=== PATIENT | male | born 1940 | race Caucasian/White ===

== ENCOUNTER 2019-06-03 17:43 | Outpatient (RCR) | payer MEDICARE, SELFPAY ==
--- NOTE | 2019-07-14 14:41 | PCPTNOTE ---
patient called and canecelled appt today. RIKA
--- NOTE | 2019-08-15 11:21 | PTOPEVAL ---
Thank you for referring this patient to [facility]. Please review, sign, date and return this plan of care LEVI. I agree with and certify that the following plan of care is medically necessary. 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 orellana reports he Query Text:As Reported By Patient/ feels better this date. he Family reports he is now free of his L ankle boot/brace. he reports he is required to wear a L ankle compression sleeve/tri- lock brace. he reports he is still wishing to get back to walking further and walking with a cane. Pain Assessment Timing of Pain Assessment Timing of Pain Assessment Assessment Self Report Self Report Pain Level 0 Pain Score Pain Score 0: Self Report Additional Pain Score Comments no pain in the L ankle this date. Lower Extremity Range of Motion General Lower Extremity Range of Motion Reason Not Measured WFL/Left,WFL/Right Lower Extremity Muscle Strength Testing Knee Strength Left Knee Flexion Strength 4+ Good + Knee Extension Strength 4+ Good + Right Knee Flexion Strength 5 Normal Knee Extension Strength 5 Normal Ankle Strength Left Ankle Dorsiflexion Strength 4 Good Ankle Plantarflexion Strength 4- Good - Right Ankle Dorsiflexion Strength 5 Normal Ankle Plantarflexion Strength 4 Good Balance Assessment Tinetti Balance Assessment Sitting Balance Steady, safe Ability to Arise Able, uses arms to help Attempts to Arise Arises on 1st attempt Immediate Standing Balance Steady with support Standing Balance
== END 2019-09-05 23:59 | disposition home or self-care (01) ==
LOC: CHSPT 17:43
PROVIDERS: Visit Provider Family Medicine
DX: R29.898 Other symptoms and signs involving the musculoskeletal system (principal)
CPT/HCPCS: 97016; 97110; 97530

== ENCOUNTER 2019-10-17 08:03 | Outpatient (CLI) | payer MEDICARE, SELFPAY ==
--- NOTE | ~2019-10-17 | XR_ITS ---
EXAMINATION: XR ankle LT min 3V DATE: 10/17/2019 08:30 INDICATION: Aftercare post left ankle internal fixation. TECHNIQUE: Weight bearing anteroposterior, oblique, and lateral views of the left ankle were obtained . COMPARISON: 08/08/2019 FINDINGS: Retrograde intramedullary calista fixation at the lateral malleolar fracture with 2 distal interlocking s crews as well as with buttons for a pair of TightRope type syndesmotic fixation wires extending trans versely across the intramedullary calista from the lateral to the medial malleolus. There is persistent m ild valgus angulation at the tibiotalar joint. The degree of widening at the medial clear space has h owever decreased with distance between the articular cortices decreasing from 8mm to 6 mm. Increase i n callus formation along the posterior margin of the fracture and/or heterotopic ossification along t he posterior distal tibiofibular ligament. No other fractures identified. Heterotopic ossification ne ar the tip of the medial malleolus likely sequela of associated deltoid ligament injury. Moderate-siz ed Achilles and plantar calcaneal spurs. Mild pes planus with flattening of the longitudinal arch. Mi ld nonuniform joint space narrowing at the posterior and lateral aspects of the tibiotalar joint. Dif fuse soft tissue swelling about the lower leg and ankle. Scattered dystrophic calcifications in the s ubcutaneous tissues at the lower leg. IMPRESSION: 1. Likely healing internally fixed distal left fibular fracture with screw and distal tibiofibular sy ndesmotic fixation. Persistent mild valgus evaluation of the tibiotalar joint but with decrease in mi ld widening of the medial clear space. 2. Pes planus. Reviewed, dictated and finalized at location A. IMPRESSION: 1. Likely healing internally fixed distal left fibular fracture with screw and distal tibiofibular syndesmotic fixation. Persistent mild valgus evaluation of the tibiotalar joint but with decrease in mild widening of the medial clear spa ce. 2. Pes planus.
== END 2019-10-17 08:04 | disposition home or self-care (01) ==
LOC: CHSIMG 08:05
PROVIDERS: PCP Family Medicine; Visit Provider Orthopaedic Surgery
DX: Z47.89 Encounter for other orthopedic aftercare (principal)
CPT/HCPCS: 73610

== ENCOUNTER 2019-12-07 10:30 | Outpatient (CLI) | payer MEDICARE, SELFPAY ==
--- NOTE | ~2019-12-07 | XR_ITS ---
XR chest 2V 12/07/2019 10:49 Indication: Cough Procedure: 2 view chest Comparison: Comparison to multiple prior studies sequentially, with oldest reviewed study dated 02/16. Findings: Bibasilar atelectasis. Heart size upper normal. No focal pneumonia, edema, effusion or pneu mothorax. No acute osseous abnormality. Impression: 1: Bibasilar atelectasis. Reviewed, dictated and finalized at location A. Impression: 1: Bibasilar atelectasis.
== END 2019-12-07 10:31 | disposition home or self-care (01) ==
PROVIDERS: PCP Family Medicine; Visit Provider Family Medicine
DX: R05 Cough (principal); R07.9 Chest pain, unspecified; J98.11 Atelectasis
CPT/HCPCS: 71046

== ENCOUNTER 2020-06-12 12:08 | Outpatient (NON) | payer MEDICARE, SELFPAY ==
[2020-06-13 00:30] LABS: SARS-CoV-2 RNA PCR Positive
== END 2020-06-12 12:09 ==
PROVIDERS: PCP Family Medicine; Visit Provider Family Medicine
DX: U07.1 COVID-19 (principal)
CPT/HCPCS: 87635; C9803; U0003

== ENCOUNTER 2020-06-14 09:20 | Inpatient (IN) | payer MEDICARE, SELFPAY ==
[2020-06-14] VITALS (10 sets, daily range): BP systolic 100–133; BP diastolic 65–92; PULSE 71–148; RESP 18–26; TEMP 37.7; O2SAT 94–98; BMI 43.7
--- NOTE | ~2020-06-14 | XR_ITS ---
EXAMINATION: XR chest 1V portable DATE: 06/14/2020 10:40 INDICATION: Shortness of breath. COVID-19 positive. TECHNIQUE: A single frontal view of the chest was obtained on 3 radiographs. COMPARISON: Chest 2 views 12/07/2019, chest CT 06/14/2018 FINDINGS: Sensitivity is decreased by obesity. There are airspace opacities in the mid and lower lung zones. No pleural effusion or pneumothorax. The heart size is normal. Mediastinal lipomatosis is not ed. There is a prominent left paracardial fat pad. There are old healed left rib fractures. IMPRESSION: 1. Airspace opacities in the mid and lower lung zones, consistent with pneumonia. Reviewed, dictated and finalized at location B. RY DRILLER IMPRESSION: 1. Airspace opacities in the mid and lower lung zones, consistent with pneumoni a.
--- NOTE | 2020-06-14 09:39 | PC.NURSE ---
EKG at 09. [facility]
--- NOTE | 2020-06-14 09:40 | ECG_ITS ---
Measurements Intervals [place] Rate: 139 P: [place]: 0 QRS: 5 QRSD: 95 T: 61 QT: 296 QTc: 451 Interpretive Statements ATRIAL FIBRILLATION WITH RAPID VENTRICULAR RESPONSE ABNORMAL ECG Electronically Signed On 06-14-2020 14:40:35 [employer] by Dani Cortez D.O.
--- NOTE | 2020-06-14 10:00 | ED.SOB ---
HPI - SOB/Dyspnea General Chief Complaint: Shortness of Breath/Dyspnea Stated Complaint: MULTI COMPLAINTS Time Seen by Provider: 06/14/20 09:57 Source: patient and EMS Mode of arrival: EMS Limitations: no limitations History of Present Illness HPI Narrative: Patient is 79 years old white female presents with increased shortness of breath started 2 days ago, got worse before arrival. Patient is COVID-19 positive yesterday. Having fever, chills, shortness of breath, chest pain, not feeling well, body aches for the last few days. History of COPD, atrial fibrillation, currently on Coumadin. EMS reported that patient was hypoxic in the 80s when they arrived to his house. Patient received Solu-Medrol IV prior to arrival. Patient is DNR Related Data Home Medications Medication Instructions Recorded Confirmed Metamucil 06/21/19 04/30/20 [facility] THYME 06/21/19 04/30/20 Stool Softener 06/21/19 04/30/20 Vitamin D3 06/21/19 04/30/20 flecainide 50 mg PO Q12H 06/21/19 06/14/20 loratadine [Claritin] 10 mg PO DAILY 06/21/19 04/30/20 omeprazole 40 mg PO DAILY 06/21/19 04/30/20 insulin lispro [Humalog KwikPen 8 - 10 unit SUBCUT .with meals 06/14/20 06/14/20 Insulin] levothyroxine 50 mcg PO DAILY 06/14/20 loratadine mg 06/14/20 Allergies Allergy/AdvReac Type Severity Reaction Status Date / Time No Known Allergies Allergy Verified 06/14/20 10:44 Review of Systems Review of Systems: Narrative: CONSTITUTIONAL: Fever, general aches and weakness EYES: Denies visual changes, redness, or discharge. ENT: Denies rhinorrhea, congestion, sore throat, or otalgia. CARDIOVASCULAR: Denies chest pain, palpitations, or edema. RESPIRATORY: Coughing with shortness of breath GASTROINTESTINAL: Denies abdominal pain, nausea, vomiting, or diarrhea. GENITOURINARY: Denies dysuria or hematuria. SKIN: Denies rash or itching. MUSCULOSKELETAL: Denies back pain, joint pain, or myalgia. NEUROLOGIC: Denies headache, numbness, or weakness. PSYCHIATRIC: Denies anxiety or depression. PMFSH Past Medical History Medical History (Updated 06/14/20 @ 11:59 by Sonya Patel MD) Ankle fracture, bimalleolar, closed Ankle fracture, left Ankle syndesmosis disruption Chronic antibiotic suppression Chronic anticoagulation Diabetes mellitus with neuropathy Hypertension Hypothyroidism determined by thyroid function test Infection of spine Recurrent deep vein thrombosis (DVT) Rotator cuff arthropathy of right shoulder Spleen absent Type 2 diabetes mellitus Weakness of both lower extremities Surgical History Surgical History H/O total knee replacement History of back surgery History of embolic filter insertion History of pancreatic surgery Hx of hernia repair Family History Family History Grandparent Diabetes mellitus Father Family history of cardiovascular disease Social History Social History Smoking status: Former smoker Second hand tobacco smoke exposure: No Smoking end date: 08/03/77 Alcohol intake: never Substance use: never Substance use type: does not use Gender identity (if verbalized by the patient): Male Sexual Orientation (if Verbalized by the Patient): Straight or Heterosexual Spiritual care concerns: Yes Agree to blood products: Yes Exam Narrative: Exam Narrative: General appearance: Well-developed, well-nourished Skin: Normal color Head: Normocephalic, nontraumatic Eyes: Clear conjunctiva ENT: Oropharynx normal, ears normal, nose normal Neck: Supple, nontender Chest and respiratory: Airway patent, no respiratory distress, no accessory muscle use Heart: Tachycardia, irregular irregularity Abdomen: Soft, nontender, no organomegaly, quiet bowel sounds Vascular: Normal peripheral pulses, normal capillary refill. Musculoskeletal: Normal range of motion, n
[2020-06-14 10:24] LABS: Base Excess ABG -1.7 mEq/l (+/-2.0); Fractional Inspired Oxygen 21 %; HCO3 ABG 21.4 mEq/l (22.0-26.0); Oxygen Content ABG 21.5 %vol (16.0-22.0); Oxygen Saturation ABG 93.9 % (95.0-100.0); Oxyhemoglobin 91.6 % THb (90.0-100.0); PCO2 ABG 32.4 mmHg (35.0-45.0); PO2 ABG 65.9 mmHg (80.0-100.0); PO2 FiO2 Ratio Arterial Blood 3.14 %; Total Hemoglobin 16.7 g/dL (12.0-18.0); pH ABG 7.437 (7.350-7.450)
[2020-06-14 10:25] LABS: Device ROOM AIR; Modified Allen's Test Pass; Site Drawn RIGHT RADIAL
[2020-06-14 10:44] LABS: Basophils Percent Auto 0.2 % (0.2-1.2); Hemoglobin 16.2 g/dL (14.0-18.0); Immature Granulocyte Percent A 1.8 % (0-0.5); Lymphocytes Absolute Auto 0.78 K/mm3 (0.9-3.2); Lymphocytes Percent Auto 13.9 % (18.3-44.2); Mean Corpuscular HGB Conc 33.8 g/dl (32-36); Mean Corpuscular Hemoglobin 27.8 pg (26-34); Mean Corpuscular Volume 82.3 fl (80-100); Mean Platelet Volume 10.5 fl (7.4-10.4); Monocytes Percent Auto 17.1 % (2.6-8.5); Neutrophils Absolute Auto 3.8 K/mm3 (1.3-6.7); Nucleated Red Blood Cells Perc 0.4 % (0.0-0.2); Platelet Count Result 284 k/mm3 (150-375); Red Blood Count 5.83 M/mm3 (4.6-6.20); Red Cell Distribution Width 18.9 % (11.5-14.5); White Blood Count 5.6 K/mm3 (4.5-10.0)
[2020-06-14] MEDS: dilTIAZem HCl INJ 25 MG/5 ML VIAL 10 MG IV PUSH (10:44)
[2020-06-14 10:55] LABS: Alanine Aminotransferase 23 U/L (4-50); Albumin Level 3.2 g/dL (3.5-5.1); Alkaline Phosphatase 114 U/L (38-126); Anion Gap 7 mmol/L (8-16); Aspartate Amino Transferase 42 U/L (17-59); Bilirubin,Total 0.7 mg/dL (0.2-1.3); Blood Urea Nitrogen 23 mg/dL (9-20); Calcium 8.3 mg/dL (8.4-10.2); Carbon Dioxide 28 mmol/L (22-30); Chloride 103 mmol/L (98-107); Estimated CRCL calculation 52 ml/min; Estimated Glomerular Filt Rate 39; Glucose 172 mg/dL (75-110); Potassium 4.4 mmol/L (3.4-5.0); Sodium 138 mmol/L (137-145)
[2020-06-14 10:57] LABS: INR 1.9; Prothrombin Time 22.8 Seconds (11.1-14.7)
[2020-06-14 10:58] LABS: Partial Thromboplastin Time 36.6 SECONDS (22.3-36.8)
[2020-06-14 11:07] LABS: NT Pro B Type Natriuretic Pept 309 PG/ML (5-100); Troponin I 0.014 ng/mL (0.000-0.034)
[2020-06-14] MEDS: SODIUM CHLORIDE 0.9% IV 1,000 ML 999 ML IV CONT (12:01)
[2020-06-14 14:02] LABS: Troponin I 0.025 ng/mL (0.000-0.034)
[2020-06-14 15:11] LABS: Glucose Point of Care 219 (65-105)
[2020-06-14] MEDS: PREGABALIN (*CRX) 75 MG CAPSULE PO (17:17)
[2020-06-14] MEDS: LACTATED RINGERS 1,000 ML 75 ML IV CONT (20:45)
--- NOTE | 2020-06-14 21:25 | PM.IMHP ---
H&P: HPI History of Present Illness Date/Time: 06/14/20 21:25 Chief complaint: COVID PN/A FIB WITH RVR/DEHYDRATION Narrative: Neal Amaro is a 79 year old male who came in for increasing shortness of breath for last 2 days. His tested positive the same time he did for covid 19. Patient had positive results yesterday. He has fever chills shortness of breath chest pain just isn't feeling went very well has been having body aches all over he is weak. The patient had a recent fall to worry landed on his knees and his knees oral it has gained up. The patient has a history of COPD atrial fibrillation currently on Coumadin. I asked patient about him being in atrial fibrillation and he said he does not recall being in AFib but he says ever to keep sound of that he has a history of it. 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 The patient was hypoxic in the 80s when EMS arrived. The patient was placed on oxygen at 2 L per nasal cannula. He was given Solu-Medrol prior to arrival. Patient is a DNR. Patient is on flecainide which tells me that he has possibly had AFib or flutter in the past. The patient had been placed on a Cardizem drip. However when the patient arrived to IMU he was converted to sinus rhythm in the drip was removed. Chest x-ray suggestive of covid 19 pneumonia. Patient's ABGs pH 7.437 pCO2 32.4 PO2 was 64.9. O2 saturation 93%. Patient's creatinine 1.7. His blood sugar was 172 and then 219. Last known A1c was 7.1 in January. Patient positive test was resulted on 06/12/2020. Was AFib with RVR heart rate in the 130s. He is now in a regular rhythm less than 100. Patient is being admitted to inpatient IMU on 06/14/2020. Review of Systems Review of Systems: All systems reviewed & are unremarkable except as noted in HPI and below Constitutional: Constitutional: Reports as per HPI and Reports no additional constitutional complaints Eyes: Eyes: Reports as per HPI and Reports no additional eye complaints ENT: Reports system reviewed and no additional complaints, except as documented and Reports Normal hearing present Cardiovascular: Cardiovascular: Reports no additional cardiovascular complaints Respiratory: Respiratory: Reports no additional respiratory complaints and Reports no additional respiratory complaints Gastrointestinal: Gastrointestinal: Reports as per HPI and Reports no additional gastrointestinal complaints Musculoskeletal: Musculoskeletal: Reports no additional musculoskeletal complaints Integumentary/Breasts: Skin/Breast: Reports system reviewed and no additional complaints, except as docu and Reports as per HPI Neurologic: Reports system reviewed and no additional complaints, except as documented, Reports as per HPI and Reports Normal hearing present Psychiatric: Psychiatric: Reports no additional psychiatric complaints and Reports as per HPI Endocrine: Endocrine: Reports no additional endocrine complaints Hematologic/Lymphatic: Hematologic/Lymphatic: Reports no additional hematologic/lymphatic complaints Allergic/Immunologic: Allergic/Immunologic: Reports no additional allergic/immunologic complaints [facility] Past Medical History Medical History Ankle fracture, bimalleolar, closed Ankle fracture, left Ankle syndesmosis disruption BPH (benign prostatic hyperplasia) Chronic antibiotic suppression Chronic anticoagulation Diabetes mellitus with neuropathy History of deep vein thrombosis (DVT) of lower extremity History of hemorrhoids History of pulmonary embolism Hypertension Hypothyroidism determined by thyroid function test Infection of spine Recurrent deep vein thrombosis (DVT) Rotator cuff arthropathy of right shoulder Spleen absent Type 2 diabetes mellitus Weakness of both lower extremities Surgical History Surgical History (Updated 06/14/20 @ 21:37 by Aura Arora NP) H/O bilateral cataract extraction H/O colonoscopy with polypectomy H
[2020-06-14 21:53] LABS: Glucose Point of Care 264 (65-105)
[2020-06-14 23:05] LABS: Prothrombin Time 23.3 Seconds (11.1-14.7)
[2020-06-14] MEDS: REMDESIVIR 200 MG/NS 250 ML 200 MG/250 ML BAG 250 MG IVPB (23:10)
[2020-06-14] MEDS: FLECAINIDE ACETATE 50 MG TABLET PO (23:11)
[2020-06-14] MEDS: BACLOFEN 10 MG TABLET PO (23:11)
[2020-06-14] MEDS: PREGABALIN (*CRX) 50 MG CAPSULE 100 MG PO (23:12)
[2020-06-14] MEDS: METOPROLOL TARTRATE 12.5 MG TABLET PO (23:12)
[2020-06-15] VITALS (17 sets, daily range): BP systolic 135–168; BP diastolic 51–112; PULSE 61–77; RESP 18–20; TEMP 36.2–36.7; O2SAT 93–100
--- NOTE | 2020-06-15 | ECHO_ITS ---
Patient Info Name: Neal Amaro Age: 79 years : 1940 Gender: Male Ht: 74 in Wt: 360 lbs BSA: 3.00 m2 HR: 68 bpm BP: 145 / 85 mmHg Heart Rhythm: Sinus Rhythm Technical Quality: Good Exam Date: 06/15/2020 9:02 AM Exam Location: [facility] Patient Status: Inpatient Admit Date: 06/14/2020 Staff Ordering Physician: Aura Arora NP Phlebotomist: Saud Kincaid RDCS, RT Attending Provider: Ayesha Stewart MD Referring Physician: Maite PATEL; Exam Type: CA echo doppler color flow Study Info Indications I48.1 - Persistent atrial fibrillation Complete two-dimensional, color flow and Doppler transthoracic echocardiogram is performed. Summary 1. Complete two-dimensional, color flow and Doppler transthoracic echocardiogram is performed. 2. Technically challenging exam presumably because of obesity image quality is difficult. 3. Mildly sclerotic aortic valve which does not appear to be stenotic. 4. Grossly normal appearing left ventricular systolic function. 5. Poor image quality precludes reporting an accurate ejection fraction. Left Ventricle Left ventricular chamber dimension is normal. Right Ventricle Right ventricular chamber dimension is not well visualized. Left Atria Left atrial chamber dimension is normal. Right Atria Right atrial chamber dimension is not well visualized. Aortic Valve The aortic valve is probable trileaflet. Pulmonic Valve The pulmonic valve is not well visualized. Mitral Valve The mitral valve has normal leaflets. Tricuspid Valve The tricuspid valve leaflets are not well visualized. Pericardium/Pleural The pericardium appears normal. Aorta The aortic root size at the sinus of Valsalva is normal. Left Ventricular Outflow Tract Name Value Normal LVOT 2D LVOT Diameter 2.3 cm LVOT Doppler LVOT Peak Gradient 2 mmHg LVOT Mean Gradient 1 mmHg LVOT VTI 13 cm LVOT VTI/AV VTI Ratio 0.9 LVOT Stroke Volume 57 ml LVOT CO 4.1 l/min LVOT CI 1.4 l/min/m2 Mitral Valve Name Value Normal MV Doppler MV Decel [place] 313 cm/s2 MV PHT 63 ms MV Area (PHT) 3.5 cm2 4.0-5.0 MV Diastolic Function MV E Peak Velocity 68 cm/s MV A Peak Velocity 56 cm/s MV E/A 1.2 MV Decel Time 218 ms MV Annular TDI MV E/e' (Septal)
[2020-06-15 05:53] LABS: Basophils Percent Auto 0.3 % (0.2-1.2); Hematocrit 48.4 % (42.0-52.0); Hemoglobin 15.8 g/dL (14.0-18.0); Immature Granulocyte Absolute 0.04 K/mm3 (0.00-0.031); Immature Granulocyte Percent A 1.2 % (0-0.5); Lymphocytes Absolute Auto 0.62 K/mm3 (0.9-3.2); Lymphocytes Percent Auto 18.9 % (18.3-44.2); Mean Corpuscular HGB Conc 32.6 g/dl (32-36); Mean Corpuscular Hemoglobin 27.7 pg (26-34); Mean Corpuscular Volume 84.8 fl (80-100); Mean Platelet Volume 10.9 fl (7.4-10.4); Monocytes Absolute Auto 0.8 K/mm3 (0.1-0.6); Monocytes Percent Auto 24.4 % (2.6-8.5); Neutrophils Absolute Auto 1.8 K/mm3 (1.3-6.7); Neutrophils Percent Auto 55.2 % (45.5-73.1); Nucleated Red Blood Cells Perc 0.6 % (0.0-0.2); Platelet Count Result 260 k/mm3 (150-375); Red Blood Count 5.71 M/mm3 (4.6-6.20); Red Cell Distribution Width 19.4 % (11.5-14.5); White Blood Count 3.3 K/mm3 (4.5-10.0)
--- NOTE | 2020-06-15 06:00 | ECG_ITS ---
Measurements Intervals [place] Rate: 63 P: 83 [place]: 221 QRS: 47 QRSD: 94 T: 53 QT: 422 QTc: 435 Interpretive Statements SINUS RHYTHM WITH FIRST DEGREE AV BLOCK BASELINE ARTIFACT- II, III, AVF ABNORMAL ECG Electronically Signed On 06-15-2020 13:42:28 SUPPLY ASSISTANT by Dani Cortez D.O.
[2020-06-15 06:05] LABS: INR 2.1; Prothrombin Time 24.2 Seconds (11.1-14.7)
[2020-06-15] MEDS: PREGABALIN (*CRX) 75 MG CAPSULE PO (06:24)
[2020-06-15] MEDS: LEVOTHYROXINE SODIUM 50 MCG TABLET PO (06:24)
[2020-06-15 06:28] LABS: Lactic Acid Reflex 1.8 mmol/L (0.7-2.1)
[2020-06-15 06:48] LABS: Platelet Estimate Adequate (Adequate)
[2020-06-15 06:49] LABS: Giant Platelets Present
[2020-06-15 07:10] LABS: Alanine Aminotransferase 35 U/L (4-50); Albumin Level 2.9 g/dL (3.5-5.1); Alkaline Phosphatase 96 U/L (38-126); Anion Gap 5 mmol/L (8-16); Aspartate Amino Transferase 109 U/L (17-59); Bilirubin,Total 0.4 mg/dL (0.2-1.3); Blood Urea Nitrogen 30 mg/dL (9-20); CRP 6.2 mg/dL (<1.0); Calcium 8.2 mg/dL (8.4-10.2); Carbon Dioxide 28 mmol/L (22-30); Chloride 104 mmol/L (98-107); Estimated CRCL calculation 62 ml/min; Estimated Glomerular Filt Rate 49; Glucose 312 mg/dL (75-110); Lipase 16 U/L (23-300); Magnesium 2.1 mg/dL (1.6-2.3); Potassium 5.3 mmol/L (3.4-5.0); Sodium 137 mmol/L (137-145)
[2020-06-15 09:41] LABS: Glucose Point of Care 294 (65-105)
--- NOTE | 2020-06-15 11:47 | PM.IMPN ---
Progress Note: A&P Assessment and Plan (1) Pneumonia due to COVID-19 virus: Code(s): U07.1 - COVID-19; J12.89 - Other viral pneumonia Status: Acute Assessment and Plan: Patient was started on REMdezivir and Solu-Medrol. Continue with his albuterol inhaler. He is in isolation. Continue to monitor labs. Patient is hypoxic and requiring 2 L per nasal cannula at this time. Patient had desatted down in the 80s when he was picked of the [facility]. (2) Atrial fibrillation with rapid ventricular response: Code(s): I48.91 - Unspecified atrial fibrillation Status: Acute Assessment and Plan: Continue with patient's home medications of the flecainide and the metoprolol. We have stopped the Cardizem drip. The patient has now been converted. 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 Will continue to monitor his PT INR daily. (3) Acute exacerbation of chronic obstructive airways disease: Code(s): J44.1 - Chronic obstructive pulmonary disease with (acute) exacerbation Status: Acute Assessment and Plan: . He is on IV Decadron. Continue with inhalers. 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 Patient had a recent A1c. Continue with his long-acting insulin as well. (5) Chronic anticoagulation: Code(s): Z79.01 - retirement (current) use of anticoagulants Status: Acute Assessment and Plan: Continue with his Coumadin if his PT INR within normal limits. Will do PT INR daily. (6) Hypertension: Qualifiers: Hypertension type: essential hypertension Qualified Code(s): I10 - Essential (primary) hypertension Code(s): I10 - Essential (primary) hypertension Status: Chronic Assessment and Plan: Continue with metoprolol. (7) Hypothyroidism determined by thyroid function test: Code(s): E03.9 - Hypothyroidism, unspecified; R94.6 - Abnormal results of thyroid function studies Status: Chronic Assessment and Plan: Continue with levothyroxine and check his levels. (8) Hyperlipidemia: Qualifiers: Hyperlipidemia type: mixed hyperlipidemia Qualified Code(s): E78.2 - Mixed hyperlipidemia Code(s): E78.5 - Hyperlipidemia, unspecified Status: Acute Assessment and Plan: Continue with atorvastatin but in the event the patient's liver enzymes are elevated please stop Additional Plan # COVID-19 pneumonia # Acute hypoxic respiratory failure - continue supplemental oxygen to keep oxygen saturation greater than 90%, currently on 2 L - started remdesivir/dexamethasone 06/15- - supplements: Zinc, vitamin-C, vitamin-D - MDI: Albuterol - Tylenol for fever - incentive spirometer q.2 hour -Cough: Guaifenesin DM # AFib with RVR, resolved - patient converted to normal sinus rhythm with first-degree block - repeat EKG sinus rhythm with first-degree AV block at 06/15 0438 - continue warfarin for anticoagulation - continue metoprolol 12.5 mg b.i.d. - patient cardiology office note on chart, reviewed # other chronic conditions - BPH: Continue Flomax - allergies: Continue Claritin - hypothyroidism: Continue levothyroxine - hyperlipidemia: Continue atorvastatin - muscle spasm: Continue baclofen - constipation: Continue docusate - chronic infection: Continue doxycycline which he takes for his orthopedic infection that he is supposed to be on for long-term course - type 2 diabetes: No home meds for diabetes Diet: Heart healthy DVT prophylaxis: On warfarin GI prophylaxis: Protonix Code stat
[2020-06-15] MEDS: BACLOFEN 10 MG TABLET PO ×2 (12:12→17:30)
[2020-06-15] MEDS: ATORVASTATIN 20 MG TABLET PO (12:12)
[2020-06-15] MEDS: DEXAMETHASONE SOD PHOS INJ 4 MG/ML VIAL 6 MG IV PUSH (12:12)
[2020-06-15] MEDS: DOCUSATE SODIUM 100 MG CAPSULE PO ×2 (12:12→21:17)
[2020-06-15] MEDS: LORATADINE 10 MG TABLET PO (12:13)
[2020-06-15] MEDS: DOXYCYCLINE HYCLATE 100 MG TABLET PO ×2 (12:13→21:17)
[2020-06-15] MEDS: FLECAINIDE ACETATE 50 MG TABLET PO ×2 (12:13→21:17)
[2020-06-15] MEDS: TAMSULOSIN HCL 0.4 MG CAPSULE 0.8 MG PO (12:14)
[2020-06-15] MEDS: METOPROLOL TARTRATE 12.5 MG TABLET PO ×2 (12:14→21:16)
[2020-06-15] MEDS: PANTOPRAZOLE 40 MG TABLET PO (12:14)
[2020-06-15] MEDS: PREGABALIN (*CRX) 50 MG CAPSULE 100 MG PO ×2 (12:14→17:44)
[2020-06-15] MEDS: INSULIN ASPART (*BKC) 100 UNITS/ML SUB-Q ×2 (12:15→17:30)
[2020-06-15] MEDS: guaiFENesin/DEXTROMETHORPHAN 10 ML UDC PO (12:20)
[2020-06-15] MEDS: LACTATED RINGERS 1,000 ML 75 ML IV CONT (12:25)
[2020-06-15 12:43] LABS: Glucose Point of Care 305 (65-105)
[2020-06-15 17:02] LABS: Glucose Point of Care 341 (65-105)
[2020-06-15] MEDS: WARFARIN (*PBKC) 5 MG TABLET PO (17:31)
--- NOTE | 2020-06-15 18:40 | PC.NURSE ---
This patient, Nela Amaro, was received from IMU on 06/15/20 at 1840. Patient/family oriented to unit policies and routines
[2020-06-15 20:54] LABS: Glucose Point of Care 452 (65-105)
[2020-06-15] MEDS: INSULIN ASPART (*BKC) 100 UNITS/ML 10 UNITS SUB-Q (21:15)
[2020-06-15] MEDS: INSULIN GLARGINE (*BKC) 100 UNITS/ML 44 UNITS SUB-Q (21:16)
[2020-06-15 23:51] LABS: Glucose Point of Care 371 (65-105)
[2020-06-15] MEDS: INSULIN ASPART (*BKC) 100 UNITS/ML 6 UNITS SUB-Q (23:53)
[2020-06-15] MEDS: REMDESIVIR 100 MG/NS 250 ML 100 MG/250 ML BAG 250 MG IVPB (23:53)
[2020-06-16] VITALS (10 sets, daily range): BP systolic 128–171; BP diastolic 54–94; PULSE 61–76; RESP 18–20; TEMP 36.4–37; O2SAT 90–97
[2020-06-16 02:11] LABS: Glucose Point of Care 296 (65-105)
[2020-06-16] MEDS: LEVOTHYROXINE SODIUM 50 MCG TABLET PO (06:22)
[2020-06-16 06:31] LABS: INR 2.6
[2020-06-16 06:33] LABS: Alanine Aminotransferase 35 U/L (4-50)
[2020-06-16 06:47] LABS: Hemoglobin A1C 7.5 % (<5.7)
[2020-06-16] MEDS: PREGABALIN (*CRX) 50 MG CAPSULE 100 MG PO ×3 (09:00→18:44)
[2020-06-16] MEDS: ZINC SULFATE 220 MG CAPSULE PO (09:50)
[2020-06-16] MEDS: BACLOFEN 10 MG TABLET PO ×3 (09:51→18:42)
[2020-06-16] MEDS: ASCORBIC ACID 500 MG TABLET PO (09:51)
[2020-06-16] MEDS: PANTOPRAZOLE 40 MG TABLET PO (09:51)
[2020-06-16] MEDS: FLECAINIDE ACETATE 50 MG TABLET PO ×2 (09:51→20:40)
[2020-06-16] MEDS: DOCUSATE SODIUM 100 MG CAPSULE PO ×2 (09:51→20:40)
[2020-06-16] MEDS: LORATADINE 10 MG TABLET PO (09:51)
[2020-06-16] MEDS: TAMSULOSIN HCL 0.4 MG CAPSULE 0.8 MG PO (09:51)
[2020-06-16] MEDS: DEXAMETHASONE SOD PHOS INJ 4 MG/ML VIAL 6 MG IV PUSH (09:52)
[2020-06-16] MEDS: INSULIN ASPART (*BKC) 100 UNITS/ML SUB-Q ×3 (09:52→18:46)
[2020-06-16] MEDS: CHOLECALCIFEROL 1,000 UNITS TABLET 1000 UNITS PO (09:52)
[2020-06-16] MEDS: ATORVASTATIN 20 MG TABLET PO (09:53)
[2020-06-16] MEDS: DOXYCYCLINE HYCLATE 100 MG TABLET PO ×2 (09:53→20:40)
[2020-06-16] MEDS: METOPROLOL TARTRATE 12.5 MG TABLET PO ×2 (09:53→20:39)
[2020-06-16 10:07] LABS: Glucose Point of Care 229 (65-105)
--- NOTE | 2020-06-16 11:03 | PM.IMPN ---
Progress Note: A&P Assessment and Plan (1) Pneumonia due to COVID-19 virus: Code(s): U07.1 - COVID-19; J12.89 - Other viral pneumonia Status: Acute (2) Atrial fibrillation with rapid ventricular response: Code(s): I48.91 - Unspecified atrial fibrillation Status: Acute Assessment and Plan: Continue with patient's home medications of the flecainide and the metoprolol. We have stopped the Cardizem drip. The patient has now been converted. 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 Will continue to monitor his PT INR daily. (3) Acute exacerbation of chronic obstructive airways disease: Code(s): J44.1 - Chronic obstructive pulmonary disease with (acute) exacerbation Status: Acute Assessment and Plan: . He is on IV Decadron. Continue with inhalers. 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 Patient had a recent A1c. Continue with his long-acting insulin as well. (5) Chronic anticoagulation: Code(s): Z79.01 - federal agent (current) use of anticoagulants Status: Acute Assessment and Plan: Continue with his Coumadin if his PT INR within normal limits. Will do PT INR daily. (6) Hypertension: Qualifiers: Hypertension type: essential hypertension Qualified Code(s): I10 - Essential (primary) hypertension Code(s): I10 - Essential (primary) hypertension Status: Chronic Assessment and Plan: Continue with metoprolol. (7) Hypothyroidism determined by thyroid function test: Code(s): E03.9 - Hypothyroidism, unspecified; R94.6 - Abnormal results of thyroid function studies Status: Chronic (8) Hyperlipidemia: Qualifiers: Hyperlipidemia type: mixed hyperlipidemia Qualified Code(s): E78.2 - Mixed hyperlipidemia Code(s): E78.5 - Hyperlipidemia, unspecified Status: Acute Additional Plan # COVID-19 pneumonia # Acute hypoxic respiratory failure - continue supplemental oxygen to keep oxygen saturation greater than 90%, currently on 2 L - started remdesivir/dexamethasone 06/15- - supplements: Zinc, vitamin-C, vitamin-D - MDI: Albuterol - Tylenol for fever - incentive spirometer q.2 hour - Cough: Guaifenesin DM, added Flonase for congestion - will check inflammatory markers Q 48 hour # AFib with RVR, resolved - patient converted to normal sinus rhythm with first-degree block - repeat EKG sinus rhythm with first-degree AV block at 06/15 0438 - continue warfarin for anticoagulation - continue metoprolol 12.5 mg b.i.d. - patient cardiology office note on chart, reviewed - INR 2.6 at goal 2-3 # other chronic conditions - BPH: Continue Flomax - allergies: Continue Claritin - hypothyroidism: Continue levothyroxine - hyperlipidemia: Continue atorvastatin - muscle spasm: Continue baclofen - constipation: Continue docusate - chronic infection: Continue doxycycline which he takes for his orthopedic infection that he is supposed to be on for long-term course - type 2 diabetes: Hemoglobin A1c 7.5. Lantus 44 units q.h.s., moderate dose sliding scale insulin - dry eyes: Giving artificial tears Diet: Heart healthy DVT prophylaxis: On warfarin GI prophylaxis: Protonix Code status: do not resuscitate /do not intubate Disposition: medical floor with tele Subjective Date/time seen: 06/16/20 11:03 Patient examined. he has some labored breathing on 2 L oxygen, will continue supportive oxygen. He is requesting some Eyedrops, will give artificial tears. he has nasal congestion, giving Flona
[2020-06-16 13:35] LABS: Glucose Point of Care 308 (65-105)
[2020-06-16] MEDS: guaiFENesin/DEXTROMETHORPHAN 10 ML UDC PO ×2 (14:23→20:41)
[2020-06-16] MEDS: FLUTICASONE PROPIONATE 0.05% NA SPR 16 GM BTL (*BKC) 2 SPRAY NASAL (18:32)
[2020-06-16] MEDS: WARFARIN (*PBKC) 5 MG TABLET PO (18:44)
[2020-06-16 18:53] LABS: Glucose Point of Care 408 (65-105)
--- NOTE | 2020-06-16 19:19 | PC.NURSE ---
Called Dr Horn about pt blood sugar of 408. I gave 6 units of novolog and orders received to give additional 10 units one time. Also orders received to change SSI to high dose ssi.
[2020-06-16] MEDS: INSULIN ASPART (*BKC) 100 UNITS/ML 10 UNITS SUB-Q (19:21)
[2020-06-16] MEDS: INSULIN GLARGINE (*BKC) 100 UNITS/ML 44 UNITS SUB-Q (20:43)
[2020-06-16] MEDS: REMDESIVIR 100 MG/NS 250 ML 100 MG/250 ML BAG 250 MG IVPB (22:40)
[2020-06-16 22:46] LABS: Glucose Point of Care 383 (65-105)
[2020-06-17] VITALS (11 sets, daily range): BP systolic 116–166; BP diastolic 48–94; PULSE 53–96; RESP 18–20; TEMP 36.3–36.7; O2SAT 90–93
[2020-06-17] MEDS: LEVOTHYROXINE SODIUM 50 MCG TABLET PO (05:02)
[2020-06-17 07:34] LABS: Hematocrit 45.3 % (42.0-52.0); Hemoglobin 15.2 g/dL (14.0-18.0); Mean Corpuscular HGB Conc 33.6 g/dl (32-36); Mean Corpuscular Hemoglobin 27.9 pg (26-34); Mean Corpuscular Volume 83.1 fl (80-100); Mean Platelet Volume 10.9 fl (7.4-10.4); Platelet Count Result 314 k/mm3 (150-375); Red Blood Count 5.45 M/mm3 (4.6-6.20); Red Cell Distribution Width 18.6 % (11.5-14.5); White Blood Count 6.6 K/mm3 (4.5-10.0)
[2020-06-17 07:35] LABS: Alanine Aminotransferase 36 U/L (4-50)
[2020-06-17 07:36] LABS: Magnesium 1.8 mg/dL (1.6-2.3)
[2020-06-17 07:42] LABS: Anion Gap 5 mmol/L (8-16); Blood Urea Nitrogen 26 mg/dL (9-20); CRP 2.9 mg/dL (<1.0); Calcium 8.2 mg/dL (8.4-10.2); Carbon Dioxide 28 mmol/L (22-30); Chloride 104 mmol/L (98-107); Estimated CRCL calculation 86 ml/min; Estimated Glomerular Filt Rate > 60; Glucose 266 mg/dL (75-110); Lactate Dehydrogenase 762 U/L (313-618); Potassium 4.2 mmol/L (3.4-5.0); Sodium 137 mmol/L (137-145)
[2020-06-17 07:49] LABS: INR 3.1; Prothrombin Time 32.6 Seconds (11.1-14.7)
[2020-06-17] MEDS: ASCORBIC ACID 500 MG TABLET PO (08:07)
[2020-06-17] MEDS: ATORVASTATIN 20 MG TABLET PO (08:08)
[2020-06-17] MEDS: FLECAINIDE ACETATE 50 MG TABLET PO ×2 (08:08→21:10)
[2020-06-17] MEDS: DOCUSATE SODIUM 100 MG CAPSULE PO ×2 (08:09→21:10)
[2020-06-17] MEDS: LORATADINE 10 MG TABLET PO (08:09)
[2020-06-17] MEDS: ZINC SULFATE 220 MG CAPSULE PO (08:09)
[2020-06-17] MEDS: PREGABALIN (*CRX) 50 MG CAPSULE 100 MG PO ×3 (08:09→17:00)
[2020-06-17] MEDS: PANTOPRAZOLE 40 MG TABLET PO (08:09)
[2020-06-17] MEDS: CHOLECALCIFEROL 1,000 UNITS TABLET 1000 UNITS PO (08:09)
[2020-06-17] MEDS: DOXYCYCLINE HYCLATE 100 MG TABLET PO ×2 (08:09→21:10)
[2020-06-17] MEDS: METOPROLOL TARTRATE 12.5 MG TABLET PO ×2 (08:10→21:10)
[2020-06-17] MEDS: FLUTICASONE PROPIONATE 0.05% NA SPR 16 GM BTL (*BKC) 2 SPRAY NASAL (08:10)
[2020-06-17] MEDS: DEXAMETHASONE SOD PHOS INJ 4 MG/ML VIAL 6 MG IV PUSH (08:12)
[2020-06-17] MEDS: guaiFENesin/DEXTROMETHORPHAN 10 ML UDC PO (08:24)
[2020-06-17 08:31] LABS: Glucose Point of Care 253 (65-105)
[2020-06-17] MEDS: INSULIN ASPART (*BKC) 100 UNITS/ML SUB-Q ×3 (09:11→17:01)
[2020-06-17] MEDS: TAMSULOSIN HCL 0.4 MG CAPSULE 0.8 MG PO (10:09)
[2020-06-17] MEDS: BACLOFEN 10 MG TABLET PO ×3 (10:09→17:00)
[2020-06-17 12:07] LABS: Glucose Point of Care 318 (65-105)
--- NOTE | 2020-06-17 12:39 | PM.IMPN ---
Progress Note: A&P Assessment and Plan (1) Pneumonia due to COVID-19 virus: Code(s): U07.1 - COVID-19; J12.89 - Other viral pneumonia Status: Acute (2) Atrial fibrillation with rapid ventricular response: Code(s): I48.91 - Unspecified atrial fibrillation Status: Acute Assessment and Plan: Continue with patient's home medications of the flecainide and the metoprolol. We have stopped the Cardizem drip. The patient has now been converted. 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 Will continue to monitor his PT INR daily. (3) Acute exacerbation of chronic obstructive airways disease: Code(s): J44.1 - Chronic obstructive pulmonary disease with (acute) exacerbation Status: Acute (4) Diabetes mellitus with neuropathy: Qualifiers: Diabetes mellitus type: type 2 Diabetes mellitus termite inspector insulin use: with termite inspector use Qualified Code(s): E11.40 - Type 2 diabetes mellitus with diabetic neuropathy, unspecified; Z79.4 - group home (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 Code(s): E11.40 - Type 2 diabetes mellitus with diabetic neuropathy, unspecified Status: Acute Assessment and Plan: Accu-Cheks AC and HS. Patient had a recent A1c. Continue with his long-acting insulin as well. (5) Chronic anticoagulation: Code(s): Z79.01 - group home (current) use of anticoagulants Status: Acute Assessment and Plan: Continue with his Coumadin if his PT INR within normal limits. Will do PT INR daily. (6) Hypertension: Qualifiers: Hypertension type: essential hypertension Qualified Code(s): I10 - Essential (primary) hypertension Code(s): I10 - Essential (primary) hypertension Status: Chronic Assessment and Plan: Continue with metoprolol. (7) Hypothyroidism determined by thyroid function test: Code(s): E03.9 - Hypothyroidism, unspecified; R94.6 - Abnormal results of thyroid function studies Status: Chronic (8) Hyperlipidemia: Qualifiers: Hyperlipidemia type: mixed hyperlipidemia Qualified Code(s): E78.2 - Mixed hyperlipidemia Code(s): E78.5 - Hyperlipidemia, unspecified Status: Acute Additional Plan # COVID-19 pneumonia # Acute hypoxic respiratory failure - continue supplemental oxygen to keep oxygen saturation greater than 90%, currently on 2 L - started remdesivir/dexamethasone 06/15- Will complete 5 day course considering his comorbidities - supplements: Zinc, vitamin-C, vitamin-D - MDI: Albuterol - Tylenol for fever - incentive spirometer q.2 hour - Cough: Guaifenesin DM, Flonase for congestion - inflammatory markers are down trending # AFib with RVR, resolved - patient converted to normal sinus rhythm with first-degree block - continue warfarin for anticoagulation - continue metoprolol 12.5 mg b.i.d., patient is getting bradycardic in the high 50s, he is not having symptoms, will keep beta-juwan as is - patient cardiology office note on chart, reviewed - INR 2.6 at goal 2-3 #type 2 diabetes - Hemoglobin A1c 7.5. - Lantus 44 units q.h.s. - high dose sliding scale insulin - Hypoglycemia protocol - Started aspart for 8 units a.c. 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 Patient has significant conversational dyspnea whe
[2020-06-17] MEDS: INSULIN ASPART (*BKC) 100 UNITS/ML 8 UNITS SUB-Q (17:01)
[2020-06-17] MEDS: WARFARIN (*PBKC) 4 MG TABLET PO (17:05)
[2020-06-17 17:09] LABS: Glucose Point of Care 318 (65-105)
[2020-06-17] MEDS: INSULIN GLARGINE (*BKC) 100 UNITS/ML 44 UNITS SUB-Q (21:11)
[2020-06-17] MEDS: REMDESIVIR 100 MG/NS 250 ML 100 MG/250 ML BAG 250 MG IVPB (21:12)
[2020-06-17 21:51] LABS: Glucose Point of Care 270 (65-105)
[2020-06-18] VITALS (13 sets, daily range): BP systolic 103–171; BP diastolic 46–85; PULSE 54–80; RESP 18–22; TEMP 36.2–36.6; O2SAT 91–93
[2020-06-18] MEDS: LEVOTHYROXINE SODIUM 50 MCG TABLET PO (05:35)
[2020-06-18] MEDS: ALBUTEROL SULFATE (*SP) AEROSOL 1 PUFF 2 PUFF INHALATION ×2 (06:22→20:56)
[2020-06-18 07:25] LABS: INR 3.7; Prothrombin Time 37.2 Seconds (11.1-14.7)
[2020-06-18 07:50] LABS: Alanine Aminotransferase 36 U/L (4-50); Anion Gap 4 mmol/L (8-16); Blood Urea Nitrogen 26 mg/dL (9-20); Calcium 8.2 mg/dL (8.4-10.2); Carbon Dioxide 31 mmol/L (22-30); Chloride 104 mmol/L (98-107); Estimated CRCL calculation 78 ml/min; Estimated Glomerular Filt Rate > 60; Glucose 232 mg/dL (75-110); Potassium 3.7 mmol/L (3.4-5.0); Sodium 139 mmol/L (137-145)
[2020-06-18 07:54] LABS: Hematocrit 49.6 % (42.0-52.0); Hemoglobin 16.6 g/dL (14.0-18.0); Mean Corpuscular HGB Conc 33.5 g/dl (32-36); Mean Corpuscular Hemoglobin 27.5 pg (26-34); Mean Corpuscular Volume 82.1 fl (80-100); Mean Platelet Volume 10.8 fl (7.4-10.4); Platelet Count Result 286 k/mm3 (150-375); Red Blood Count 6.04 M/mm3 (4.6-6.20); White Blood Count 8.7 K/mm3 (4.5-10.0)
[2020-06-18] MEDS: DOXYCYCLINE HYCLATE 100 MG TABLET PO ×2 (08:28→21:09)
[2020-06-18] MEDS: TAMSULOSIN HCL 0.4 MG CAPSULE 0.8 MG PO (08:28)
[2020-06-18] MEDS: LORATADINE 10 MG TABLET PO (08:28)
[2020-06-18] MEDS: BACLOFEN 10 MG TABLET PO ×3 (08:28→17:08)
[2020-06-18] MEDS: PREGABALIN (*CRX) 50 MG CAPSULE 100 MG PO ×3 (08:28→17:07)
[2020-06-18] MEDS: ATORVASTATIN 20 MG TABLET PO (08:29)
[2020-06-18] MEDS: CHOLECALCIFEROL 1,000 UNITS TABLET 1000 UNITS PO (08:29)
[2020-06-18] MEDS: DEXAMETHASONE SOD PHOS INJ 4 MG/ML VIAL 6 MG IV PUSH (08:29)
[2020-06-18] MEDS: ZINC SULFATE 220 MG CAPSULE PO (08:29)
[2020-06-18] MEDS: PANTOPRAZOLE 40 MG TABLET PO (08:29)
[2020-06-18] MEDS: ASCORBIC ACID 500 MG TABLET PO (08:31)
[2020-06-18] MEDS: FLECAINIDE ACETATE 50 MG TABLET PO ×2 (08:32→21:09)
[2020-06-18] MEDS: METOPROLOL TARTRATE 12.5 MG TABLET PO ×2 (08:32→21:10)
[2020-06-18] MEDS: FLUTICASONE PROPIONATE 0.05% NA SPR 16 GM BTL (*BKC) 2 SPRAY NASAL (08:33)
[2020-06-18] MEDS: INSULIN ASPART (*BKC) 100 UNITS/ML SUB-Q ×3 (08:34→17:08)
[2020-06-18] MEDS: INSULIN ASPART (*BKC) 100 UNITS/ML 8 UNITS SUB-Q ×3 (08:34→17:08)
[2020-06-18] MEDS: DOCUSATE SODIUM 100 MG CAPSULE PO ×2 (08:36→21:08)
[2020-06-18 09:38] LABS: Magnesium 1.9 mg/dL (1.6-2.3)
[2020-06-18 09:44] LABS: Glucose Point of Care 211 (65-105)
[2020-06-18 13:58] LABS: Glucose Point of Care 240 (65-105)
--- NOTE | 2020-06-18 15:05 | PM.IMPN ---
Progress Note: A&P Assessment and Plan (1) Pneumonia due to COVID-19 virus: Code(s): U07.1 - COVID-19; J12.89 - Other viral pneumonia Status: Acute (2) Atrial fibrillation with rapid ventricular response: Code(s): I48.91 - Unspecified atrial fibrillation Status: Acute Assessment and Plan: Continue with patient's home medications of the flecainide and the metoprolol. We have stopped the Cardizem drip. The patient has now been converted. 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 Will continue to monitor his PT INR daily. 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 Patient had a recent A1c. Continue with his long-acting insulin as well. (5) Chronic anticoagulation: Code(s): Z79.01 - intermediate (current) use of anticoagulants Status: Acute Assessment and Plan: Continue with his Coumadin if his PT INR within normal limits. Will do PT INR daily. (6) Hypertension: Qualifiers: Hypertension type: essential hypertension Qualified Code(s): I10 - Essential (primary) hypertension Code(s): I10 - Essential (primary) hypertension Status: Chronic Assessment and Plan: Continue with metoprolol. (7) Hypothyroidism determined by thyroid function test: Code(s): E03.9 - Hypothyroidism, unspecified; R94.6 - Abnormal results of thyroid function studies Status: Chronic (8) Hyperlipidemia: Qualifiers: Hyperlipidemia type: mixed hyperlipidemia Qualified Code(s): E78.2 - Mixed hyperlipidemia Code(s): E78.5 - Hyperlipidemia, unspecified Status: Acute Additional Plan # COVID-19 pneumonia # Acute hypoxic respiratory failure - positive test 06/12/2020 - continue supplemental oxygen to keep oxygen saturation greater than 90%, currently on 3 L - started remdesivir/dexamethasone 06/14, Will complete 5 day course considering his comorbidities - supplements: Zinc, vitamin-C, vitamin-D - MDI: Albuterol - Tylenol for fever - incentive spirometer q.2 hour - Cough: Guaifenesin DM, Flonase for congestion - inflammatory markers are down trending # AFib with RVR, resolved - patient converted to normal sinus rhythm with first-degree block - continue warfarin for anticoagulation - continue metoprolol 12.5 mg b.i.d., patient is getting bradycardic in the high 50s, he is not having symptoms, will keep beta-juwan as is - patient cardiology office note on chart, reviewed - INR at goal, 2-3 #type 2 diabetes - Hemoglobin A1c 7.5. - Lantus 44 units q.h.s. - high dose sliding scale insulin - Hypoglycemia protocol - Started aspart for 8 units a.c. 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
[2020-06-18 18:21] LABS: Glucose Point of Care 243 (65-105)
[2020-06-18] MEDS: INSULIN GLARGINE (*BKC) 100 UNITS/ML 44 UNITS SUB-Q (21:07)
[2020-06-18 21:21] LABS: Glucose Point of Care 295 (65-105)
[2020-06-18] MEDS: REMDESIVIR 100 MG/NS 250 ML 100 MG/250 ML BAG 250 MG IVPB (22:34)
[2020-06-19] VITALS (13 sets, daily range): BP systolic 123–164; BP diastolic 50–84; PULSE 58–81; RESP 18–20; TEMP 36.4–37; O2SAT 89–95
[2020-06-19] MEDS: LEVOTHYROXINE SODIUM 50 MCG TABLET PO (06:25)
[2020-06-19 06:50] LABS: Alanine Aminotransferase 32 U/L (4-50); Albumin Level 2.8 g/dL (3.5-5.1); Alkaline Phosphatase 100 U/L (38-126); Anion Gap 5 mmol/L (8-16); Aspartate Amino Transferase 44 U/L (17-59); Bilirubin,Total 0.7 mg/dL (0.2-1.3); Blood Urea Nitrogen 25 mg/dL (9-20); Calcium 8.1 mg/dL (8.4-10.2); Carbon Dioxide 30 mmol/L (22-30); Chloride 103 mmol/L (98-107); Estimated CRCL calculation 86 ml/min; Estimated Glomerular Filt Rate > 60; Glucose 230 mg/dL (75-110); Potassium 3.9 mmol/L (3.4-5.0); Sodium 138 mmol/L (137-145)
[2020-06-19 06:58] LABS: INR 3.9; Prothrombin Time 38.8 Seconds (11.1-14.7)
--- NOTE | 2020-06-19 07:55 | PM.IMPN ---
Progress Note: A&P Assessment and Plan (1) Acute exacerbation of chronic obstructive airways disease: Code(s): J44.1 - Chronic obstructive pulmonary disease with (acute) exacerbation Status: Acute Assessment and Plan: Improved Continue Albuterol MDI, Doxycycline, Dexamethasone. Supplemental O2. (2) Pneumonia due to COVID-19 virus: Code(s): U07.1 - COVID-19; J12.89 - Other viral pneumonia Status: Acute Assessment and Plan: On Remdesivir and Dexamethasone. Supportive care. (3) Atrial fibrillation with rapid ventricular response: Code(s): I48.91 - Unspecified atrial fibrillation Status: Acute Assessment and Plan: Continue Flecainide Anticoagulated with Warfarin Rate controlled. (4) Type 2 diabetes mellitus: Qualifiers: Diabetes mellitus complication detail: with autonomic neuropathy Diabetes mellitus complication status: with neurologic complications Diabetes mellitus halfway insulin use: with watermelon harvesting supervisor use Qualified Code(s): E11.43 - Type 2 diabetes mellitus with diabetic autonomic (poly)neuropathy; Z79.4 - termite technician (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 Code(s): E11.9 - Type 2 diabetes mellitus without complications Status: Acute Assessment and Plan: Continue to monitor Accuchecks ACHS ISS as needed (5) Hypertension: Qualifiers: Hypertension type: essential hypertension Qualified Code(s): I10 - Essential (primary) hypertension Code(s): I10 - Essential (primary) hypertension Status: Chronic Assessment and Plan: Stable continue meds Continue to monitor Subjective Date/time seen: 06/19/20 07:55 I feel much better, no issues overnight. Review of Systems Review of Systems: Narrative: Covid 19 pneumonia. Constitutional: Constitutional: Reports no additional constitutional complaints Comments: no fevers, no rigors, no chills. Eyes: Eyes: Reports as per HPI Comments: No changes on his vision. ENT: Comments: No ear ache, no throat pain, no nasal congestion or discharge. Cardiovascular: Comments: no chest pain, no claudication. Respiratory: Comments: sob, cough. Gastrointestinal: Comments: no n/v/abdominal pain/diarrhea. Musculoskeletal: Comments: no muscle aches or pains. Integumentary/Breasts: Comments: no rashes. Neurologic: Comments: no sensorymotor deficit Hematologic/Lymphatic: Comments: No LAP Exam Narrative: Exam Narrative: Sitting in bed, had breakfast. Const: General: cooperative, comfortable, alert, awake and Physically active Nutritional Appearance: average body habitus Orientation/consciousness: patient oriented x3 Limitations: no limitations HENMT: Head: normal to inspection and normocephalic Ears: hearing grossly normal bilaterally Eyes: General: appearance normal, both eyes and all related structures Pupils: Equal, round and reactive pupils present EOM: EOMs intact bilaterally Neck: Neck: full ROM, no lymphadenopathy and no JVD Resp: Effort & Inspection: normal respiratory effort Auscultation: clear to auscultation bilaterally Cardio: Jugular venous distension: no JVD Rate: regular rate Rhythm: regular rhythm GI: Inspection: normal to inspection GI Palp: Yes Soft to palpation and Yes No hepatosplenomegaly present Auscultation: normal bowel sounds Skin: General skin exam: normal color Lesions: no lesions Rashes: no rashes Wounds: no wounds Neuro: General: patient oriented x3 and CN's II-XI intact bilaterally Cranial nerves: Yes CN's II-XII intact bilaterally and Yes Equal, round and reactive pupils present Speech: normal speech Motor exam (neuro): 5/5 motor strength present throughout Sensory Exam: normal sensation Extrem: General: normal to inspection and no pedal edema Objective Data Vital Signs Vital Signs: Vital Signs - 24 hr 06/18/20 08:00 06/18/20 08:20 06/18/20 08:32 Temperature 97.1 F L Pulse Rate 66 80 Respiratory Rate 22 H Blood
[2020-06-19] MEDS: guaiFENesin/DEXTROMETHORPHAN 10 ML UDC PO (08:50)
[2020-06-19] MEDS: ASCORBIC ACID 500 MG TABLET PO (08:51)
[2020-06-19] MEDS: CHOLECALCIFEROL 1,000 UNITS TABLET 1000 UNITS PO (08:51)
[2020-06-19] MEDS: LORATADINE 10 MG TABLET PO (08:51)
[2020-06-19] MEDS: FLECAINIDE ACETATE 50 MG TABLET PO ×2 (08:52→21:45)
[2020-06-19] MEDS: PANTOPRAZOLE 40 MG TABLET PO (08:52)
[2020-06-19] MEDS: PREGABALIN (*CRX) 50 MG CAPSULE 100 MG PO ×3 (08:52→17:31)
[2020-06-19] MEDS: ATORVASTATIN 20 MG TABLET PO (08:52)
[2020-06-19] MEDS: DOCUSATE SODIUM 100 MG CAPSULE PO ×2 (08:52→22:00)
[2020-06-19] MEDS: DOXYCYCLINE HYCLATE 100 MG TABLET PO ×2 (08:52→21:44)
[2020-06-19] MEDS: METOPROLOL TARTRATE 12.5 MG TABLET PO ×2 (08:53→21:45)
[2020-06-19] MEDS: TAMSULOSIN HCL 0.4 MG CAPSULE 0.8 MG PO (08:53)
[2020-06-19] MEDS: ZINC SULFATE 220 MG CAPSULE PO (08:53)
[2020-06-19] MEDS: DEXAMETHASONE SOD PHOS INJ 4 MG/ML VIAL 6 MG IV PUSH (08:53)
[2020-06-19] MEDS: BACLOFEN 10 MG TABLET PO ×3 (08:53→17:31)
[2020-06-19] MEDS: FLUTICASONE PROPIONATE 0.05% NA SPR 16 GM BTL (*BKC) 2 SPRAY NASAL (08:54)
[2020-06-19] MEDS: INSULIN ASPART (*BKC) 100 UNITS/ML 8 UNITS SUB-Q ×3 (08:59→17:31)
--- NOTE | 2020-06-19 11:51 | PHAR ---
Gina Talavera seen in Pharmacy and returned to [address] [place] [address] unit
[2020-06-19] MEDS: INSULIN ASPART (*BKC) 100 UNITS/ML SUB-Q ×2 (12:18→17:32)
[2020-06-19 13:20] LABS: Glucose Point of Care 195 (65-105)
[2020-06-19 18:30] LABS: Glucose Point of Care 266 (65-105)
[2020-06-19 18:30] LABS: Glucose Point of Care 259 (65-105)
[2020-06-19] MEDS: INSULIN GLARGINE (*BKC) 100 UNITS/ML 44 UNITS SUB-Q (21:45)
[2020-06-19 23:27] LABS: Glucose Point of Care 235 (65-105)
[2020-06-20] VITALS (8 sets, daily range): BP systolic 114–153; BP diastolic 54–70; PULSE 57–88; RESP 18–22; TEMP 36.3–36.9; O2SAT 91–93
[2020-06-20] MEDS: LEVOTHYROXINE SODIUM 50 MCG TABLET PO (06:39)
[2020-06-20 07:12] LABS: INR 3.5; Prothrombin Time 35.5 Seconds (11.1-14.7)
[2020-06-20 08:41] LABS: Basophils Absolute Auto 0.1 K/mm3 (0.0-0.1); Basophils Percent Auto 0.7 % (0.2-1.2); Eosinophils Percent Auto 0.2 % (0-4.4); Hematocrit 48.5 % (42.0-52.0); Hemoglobin 16.1 g/dL (14.0-18.0); Immature Granulocyte Percent A 3.8 % (0-0.5); Lymphocytes Absolute Auto 0.79 K/mm3 (0.9-3.2); Lymphocytes Percent Auto 7.6 % (18.3-44.2); Mean Corpuscular HGB Conc 33.2 g/dl (32-36); Mean Corpuscular Hemoglobin 27.9 pg (26-34); Mean Corpuscular Volume 84.1 fl (80-100); Mean Platelet Volume 10.9 fl (7.4-10.4); Monocytes Absolute Auto 1.5 K/mm3 (0.1-0.6); Monocytes Percent Auto 14.2 % (2.6-8.5); Neutrophils Absolute Auto 7.7 K/mm3 (1.3-6.7); Neutrophils Percent Auto 73.5 % (45.5-73.1); Nucleated Red Blood Cells Absolute Auto 0.1 K/mm3 (0.0-0.012); Nucleated Red Blood Cells Perc 0.5 % (0.0-0.2); Platelet Count Result 358 k/mm3 (150-375); Red Blood Count 5.77 M/mm3 (4.6-6.20); Red Cell Distribution Width 18.6 % (11.5-14.5); White Blood Count 10.4 K/mm3 (4.5-10.0)
[2020-06-20 08:46] LABS: Anion Gap 4 mmol/L (8-16); Blood Urea Nitrogen 26 mg/dL (9-20); Calcium 8.5 mg/dL (8.4-10.2); Carbon Dioxide 34 mmol/L (22-30); Chloride 102 mmol/L (98-107); Estimated CRCL calculation 86 ml/min; Estimated Glomerular Filt Rate > 60; Glucose 127 mg/dL (75-110); Sodium 140 mmol/L (137-145)
[2020-06-20 09:02] LABS: Glucose Point of Care 113 (65-105)
[2020-06-20] MEDS: INSULIN ASPART (*BKC) 100 UNITS/ML 8 UNITS SUB-Q ×3 (09:14→17:55)
[2020-06-20] MEDS: ZINC SULFATE 220 MG CAPSULE PO (09:16)
[2020-06-20] MEDS: PANTOPRAZOLE 40 MG TABLET PO (09:16)
[2020-06-20] MEDS: METOPROLOL TARTRATE 12.5 MG TABLET PO ×2 (09:17→20:08)
[2020-06-20] MEDS: ASCORBIC ACID 500 MG TABLET PO (09:17)
[2020-06-20] MEDS: ATORVASTATIN 20 MG TABLET PO (09:17)
[2020-06-20] MEDS: FLECAINIDE ACETATE 50 MG TABLET PO ×2 (09:17→20:08)
[2020-06-20] MEDS: CHOLECALCIFEROL 1,000 UNITS TABLET 1000 UNITS PO (09:17)
[2020-06-20] MEDS: DOCUSATE SODIUM 100 MG CAPSULE PO (09:19)
[2020-06-20] MEDS: DEXAMETHASONE SOD PHOS INJ 4 MG/ML VIAL 6 MG IV PUSH (09:19)
[2020-06-20] MEDS: LORATADINE 10 MG TABLET PO (09:20)
[2020-06-20] MEDS: TAMSULOSIN HCL 0.4 MG CAPSULE 0.8 MG PO (09:20)
[2020-06-20] MEDS: DOXYCYCLINE HYCLATE 100 MG TABLET PO ×2 (09:20→20:06)
[2020-06-20] MEDS: guaiFENesin/DEXTROMETHORPHAN 10 ML UDC PO (09:21)
[2020-06-20] MEDS: FLUTICASONE PROPIONATE 0.05% NA SPR 16 GM BTL (*BKC) 2 SPRAY NASAL (09:25)
[2020-06-20] MEDS: ALBUTEROL SULFATE (*SP) AEROSOL 1 PUFF 2 PUFF INHALATION ×3 (10:39→21:42)
--- NOTE | 2020-06-20 11:48 | PM.IMPN ---
Progress Note: A&P Assessment and Plan (1) Pneumonia due to COVID-19 virus: Code(s): U07.1 - COVID-19; J12.89 - Other viral pneumonia Status: Acute Assessment and Plan: Completed course of Remdesivir Currently on Doxycycline On Dexamethasone (2) Acute exacerbation of chronic obstructive airways disease: Code(s): J44.1 - Chronic obstructive pulmonary disease with (acute) exacerbation Status: Acute Assessment and Plan: Albuterol MDI anatoliy Dexamethasone (3) Atrial fibrillation with rapid ventricular response: Code(s): I48.91 - Unspecified atrial fibrillation Status: Acute Assessment and Plan: On Metoprolol/Flecainide Telemetry ongoing Supportive care. (4) Diabetes mellitus with neuropathy: Qualifiers: Diabetes mellitus type: type 2 Diabetes mellitus emt intermediate insulin use: with fpc use Qualified Code(s): E11.40 - Type 2 diabetes mellitus with diabetic neuropathy, unspecified; Z79.4 - emt intermediate (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 Code(s): E11.40 - Type 2 diabetes mellitus with diabetic neuropathy, unspecified Status: Acute Assessment and Plan: Continue Pregabalin. (5) Hypertension: Qualifiers: Hypertension type: essential hypertension Qualified Code(s): I10 - Essential (primary) hypertension Code(s): I10 - Essential (primary) hypertension Status: Chronic Assessment and Plan: Stable Continue to monitor (6) Type 2 diabetes mellitus: Qualifiers: Diabetes mellitus emt intermediate insulin use: with fpc use Diabetes mellitus complication status: with neurologic complications Diabetes mellitus complication detail: with autonomic neuropathy Qualified Code(s): E11.43 - Type 2 diabetes mellitus with diabetic autonomic (poly)neuropathy; Z79.4 - emt intermediate (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 Code(s): E11.9 - Type 2 diabetes mellitus without complications Status: Acute Assessment and Plan: Continue Accuchecks ACHS ISS as needed On Lantus Subjective Date/time seen: 06/20/20 11:48 States that feels fine. Review of Systems Review of Systems: Narrative: SOB Constitutional: Comments: no fevers, no chills. Eyes: Comments: no vision changes. ENT: Comments: no ear ache, no nasal discharge, no nasal congestion. Cardiovascular: Comments: no chest pain. Respiratory: Comments: sob on supplemental O2 however states that does not bother him. Gastrointestinal: Comments: no n/v/abdominal pain Musculoskeletal: Comments: OA Integumentary/Breasts: Comments: no rashes. Neurologic: Comments: no sensorymotor deficit. Hematologic/Lymphatic: Comments: no LAP Exam Narrative: Exam Narrative: Chronically ill looking. Const: General: cooperative, no acute distress, alert, awake, Physically active and other (Chronically ill looking.) Nutritional Appearance: overweight Orientation/consciousness: patient oriented x3 Limitations: no limitations HENMT: Head: normal to inspection and normocephalic Ears: hearing grossly normal bilaterally General nose exam: Normal external nose present Face and sinus: normal facial exam Mouth: Yes Normal oral and palatal mucosa present Eyes: General: appearance normal, both eyes and all related structures Pupils: Equal, round and reactive pupils present EOM: EOMs intact bilaterally Neck: Neck: normal visual inspection, no lymphadenopathy and no JVD Resp: Effort & Inspection: normal respiratory effort and able to speak in complete sentences Auscultation: clear to auscultation bilaterally and diminished lung sounds Cardio: Jugular venous distension: no JVD Rate: regular rate Rhythm: regular rhythm Heart sounds: S1 normal heart sound present and S2 normal heart sound present GI: Inspection: normal to inspection GI Palp: Yes Soft to palpation and Yes No hepatosplenomegaly present Skin: General skin exam: normal color and no rashes or lesions noted Neuro: Gener
[2020-06-20] MEDS: PREGABALIN (*CRX) 50 MG CAPSULE 100 MG PO ×3 (12:03→17:55)
[2020-06-20] MEDS: BACLOFEN 10 MG TABLET PO ×3 (12:04→17:54)
[2020-06-20 12:42] LABS: Glucose Point of Care 206 (65-105)
[2020-06-20] MEDS: INSULIN ASPART (*BKC) 100 UNITS/ML SUB-Q ×2 (13:49→17:55)
[2020-06-20 17:32] LABS: Glucose Point of Care 361 (65-105)
[2020-06-20] MEDS: FUROSEMIDE INJ 40 MG/4 ML VIAL IV PUSH (17:55)
[2020-06-20] MEDS: INSULIN GLARGINE (*BKC) 100 UNITS/ML 44 UNITS SUB-Q (20:05)
[2020-06-21] VITALS (10 sets, daily range): BP systolic 103–162; BP diastolic 42–76; PULSE 62–83; RESP 16–22; TEMP 36.1–36.9; O2SAT 90–93
[2020-06-21 02:53] LABS: Glucose Point of Care 444 (65-105)
[2020-06-21 04:11] LABS: Glucose Point of Care 280 (65-105)
[2020-06-21] MEDS: ALBUTEROL SULFATE (*SP) AEROSOL 1 PUFF 2 PUFF INHALATION ×2 (04:56→19:30)
[2020-06-21] MEDS: LEVOTHYROXINE SODIUM 50 MCG TABLET PO (05:56)
[2020-06-21 07:05] LABS: INR 2.9; Prothrombin Time 30.8 Seconds (11.1-14.7)
[2020-06-21 08:48] LABS: Glucose Point of Care 186 (65-105)
[2020-06-21] MEDS: INSULIN ASPART (*BKC) 100 UNITS/ML 8 UNITS SUB-Q ×3 (08:48→16:22)
[2020-06-21] MEDS: DOCUSATE SODIUM 100 MG CAPSULE PO ×2 (08:48→20:40)
[2020-06-21] MEDS: LORATADINE 10 MG TABLET PO (08:51)
[2020-06-21] MEDS: TAMSULOSIN HCL 0.4 MG CAPSULE 0.8 MG PO (08:51)
[2020-06-21] MEDS: PREGABALIN (*CRX) 50 MG CAPSULE 100 MG PO ×3 (08:51→18:02)
[2020-06-21] MEDS: ASCORBIC ACID 500 MG TABLET PO (08:51)
[2020-06-21] MEDS: ATORVASTATIN 20 MG TABLET PO (08:51)
[2020-06-21] MEDS: DEXAMETHASONE SOD PHOS INJ 4 MG/ML VIAL 6 MG IV PUSH (08:51)
[2020-06-21] MEDS: BACLOFEN 10 MG TABLET PO ×3 (08:51→18:02)
[2020-06-21] MEDS: DOXYCYCLINE HYCLATE 100 MG TABLET PO ×2 (08:52→20:40)
[2020-06-21] MEDS: CHOLECALCIFEROL 1,000 UNITS TABLET 1000 UNITS PO (08:52)
[2020-06-21] MEDS: ZINC SULFATE 220 MG CAPSULE PO (08:52)
[2020-06-21] MEDS: FUROSEMIDE INJ 40 MG/4 ML VIAL IV PUSH ×2 (08:52→18:03)
[2020-06-21] MEDS: FLUTICASONE PROPIONATE 0.05% NA SPR 16 GM BTL (*BKC) 2 SPRAY NASAL (08:52)
[2020-06-21] MEDS: METOPROLOL TARTRATE 12.5 MG TABLET PO ×2 (08:52→20:41)
[2020-06-21] MEDS: FLECAINIDE ACETATE 50 MG TABLET PO ×2 (08:52→20:40)
[2020-06-21] MEDS: PANTOPRAZOLE 40 MG TABLET PO (08:52)
[2020-06-21] MEDS: guaiFENesin/DEXTROMETHORPHAN 10 ML UDC PO (09:03)
[2020-06-21] MEDS: INSULIN ASPART (*BKC) 100 UNITS/ML SUB-Q ×2 (12:00→16:22)
--- NOTE | 2020-06-21 12:20 | PCDIET ---
Weekly nutritional screen. Patient is tolerating current diet, heart healthy, with adequate intake 75-100% of meals. No weight loss reported. No nutritional needs at this time.
[2020-06-21 12:31] LABS: Glucose Point of Care 311 (65-105)
--- NOTE | 2020-06-21 13:32 | PM.IMPN ---
Progress Note: A&P Assessment and Plan (1) Pneumonia due to COVID-19 virus: Code(s): U07.1 - COVID-19; J12.89 - Other viral pneumonia Status: Acute Assessment and Plan: On Doxycycline Dexamethasone Remdesivir Stable. (2) Acute exacerbation of chronic obstructive airways disease: Code(s): J44.1 - Chronic obstructive pulmonary disease with (acute) exacerbation Status: Acute Assessment and Plan: Improved No increasing demands on oxygen Albuterol MDI Supplemental O2 (3) Atrial fibrillation with rapid ventricular response: Code(s): I48.91 - Unspecified atrial fibrillation Status: Acute Assessment and Plan: Rate controlled Metoprolol + Flecainide Continue to monitor (4) Diabetes mellitus with neuropathy: Qualifiers: Diabetes mellitus intermediate manager insulin use: with intermediate manager use Diabetes mellitus type: type 2 Qualified Code(s): E11.40 - Type 2 diabetes mellitus with diabetic neuropathy, unspecified; Z79.4 - exterminator termite (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 Code(s): E11.40 - Type 2 diabetes mellitus with diabetic neuropathy, unspecified Status: Acute Assessment and Plan: On Lyrica Subjective Date/time seen: 06/21/20 13:32 States that had a good night. Review of Systems Review of Systems: Narrative: No complains this morning. Constitutional: Comments: no fevers, no chills. Eyes: Comments: No vision changes. ENT: Comments: no ear ache, no nasal discharge or congestion. Cardiovascular: Comments: no chest pain. Respiratory: Comments: Some cough. Gastrointestinal: Comments: no n/v/abdominal pain/diarrhea. Musculoskeletal: Comments: no joint pain or swelling. Integumentary/Breasts: Comments: no rashes. Neurologic: Comments: no sesory motor deficit Exam Narrative: Exam Narrative: Sitting on chair, NC on. Const: General: cooperative, comfortable and other (Chronically ill looking.) Nutritional Appearance: overweight Orientation/consciousness: patient oriented x3 HENMT: Head: normal to inspection and normocephalic Ears: hearing grossly normal bilaterally General nose exam: Normal external nose present Eyes: General: appearance normal, both eyes and all related structures Pupils: Equal, round and reactive pupils present EOM: EOMs intact bilaterally Neck: Neck: full ROM, no lymphadenopathy and no JVD Resp: Effort & Inspection: able to speak in complete sentences Auscultation: clear to auscultation bilaterally and diminished lung sounds Cardio: Jugular venous distension: no JVD Rate: regular rate Rhythm: regular rhythm GI: Inspection: normal to inspection GI Palp: Yes Soft to palpation and Yes No hepatosplenomegaly present Skin: General skin exam: normal color Rashes: no rashes Neuro: General: patient oriented x3 and CN's II-XI intact bilaterally Cranial nerves: Yes CN's II-XII intact bilaterally and Yes Equal, round and reactive pupils present Cognition (Neuro): normal cognition Speech: normal speech Motor exam (neuro): 5/5 motor strength present throughout Sensory Exam: normal sensation Extrem: General: no pedal edema Objective Data Vital Signs Vital Signs: Vital Signs - 24 hr 06/20/20 16:00 06/20/20 20:00 06/20/20 20:08 Temperature 98.3 F 97.4 F L Pulse Rate 71 75 84 Respiratory Rate 22 H 18 Blood Pressure 145/66 H 153/69 H Pulse Oximetry 93 93 06/21/20 00:00 06/21/20 04:00 06/21/20 08:00 Temperature 97.5 F L 97.0 F L 98.1 F Pulse Rate 62 63 72 Respiratory Rate 16 18 22 H Blood Pressure 103/42 L 162/72 H 153/60 H Pulse Oximetry 90 90 93 06/21/20 08:24 06/21/20 12:00 Temperature 98.2 F Pulse Rate 74 74 Respiratory Rate 20 22 H Blood Pressure 142/76 H Pulse Oximetry 91 92 Intake/Output Intake/Output: Intake & Output 06/18/20 06/19/20 06/20/20 06/21/20 23:59 23:59 23:59 23:59 Intake Total 2720 1410 2720 720 Output Total 3456 093 8568 500 Balance 2452 998 8162 220 Meds/Result
[2020-06-21 15:32] LABS: Hematocrit 50.3 % (42.0-52.0); Mean Corpuscular HGB Conc 33.8 g/dl (32-36); Mean Corpuscular Hemoglobin 28.1 pg (26-34); Mean Corpuscular Volume 83.1 fl (80-100); Mean Platelet Volume 10.7 fl (7.4-10.4); Platelet Count Result 374 k/mm3 (150-375); Red Blood Count 6.05 M/mm3 (4.6-6.20); Red Cell Distribution Width 18.6 % (11.5-14.5); White Blood Count 10.4 K/mm3 (4.5-10.0)
[2020-06-21 15:45] LABS: Band Neutrophils Percent 1 % (0-6); Lymphocytes Absolute Manual 0.62 K/mm3 (1.1-4.5); Lymphocytes Percent Manual 6 % (18-44); Metamyelocytes Percent 3 %; Monocytes Absolute Manual 0.72 K/mm3 (0.1-0.90); Monocytes Percent Manual 7 % (3-9); Neutrophils Absolute Manual 8.73 K/mm3 (1.3-6.7); Neutrophils Percent Manual 83 % (46-73); Total Cells Counted 100
[2020-06-21 15:46] LABS: Ovalocytes 1+ (NORMAL)
[2020-06-21 15:47] LABS: Anion Gap 5 mmol/L (8-16); Blood Urea Nitrogen 31 mg/dL (9-20); Calcium 8.4 mg/dL (8.4-10.2); Carbon Dioxide 33 mmol/L (22-30); Chloride 98 mmol/L (98-107); Estimated CRCL calculation 67 ml/min; Estimated Glomerular Filt Rate 54; Glucose 304 mg/dL (75-110); Magnesium 1.9 mg/dL (1.6-2.3); Phosphorus 3.4 mg/dL (2.5-4.5); Potassium 4.4 mmol/L (3.4-5.0); Sodium 136 mmol/L (137-145)
[2020-06-21 15:53] LABS: Platelet Estimate Adequate (Adequate)
[2020-06-21 16:29] LABS: Glucose Point of Care 322 (65-105)
[2020-06-21 18:29] LABS: Glucose Point of Care 330 (65-105)
[2020-06-21] MEDS: INSULIN GLARGINE (*BKC) 100 UNITS/ML 44 UNITS SUB-Q (20:40)
[2020-06-21 21:51] LABS: Glucose Point of Care 273 (65-105)
[2020-06-22] VITALS (11 sets, daily range): BP systolic 105–155; BP diastolic 60–79; PULSE 65–78; RESP 18–20; TEMP 36.3–37; O2SAT 87–93
[2020-06-22] MEDS: guaiFENesin/DEXTROMETHORPHAN 10 ML UDC PO (00:09)
[2020-06-22] MEDS: LEVOTHYROXINE SODIUM 50 MCG TABLET PO (06:00)
[2020-06-22 07:13] LABS: INR 2.2
[2020-06-22] MEDS: ZINC SULFATE 220 MG CAPSULE PO (08:27)
[2020-06-22] MEDS: ASCORBIC ACID 500 MG TABLET PO (08:27)
[2020-06-22] MEDS: TAMSULOSIN HCL 0.4 MG CAPSULE 0.8 MG PO (08:27)
[2020-06-22] MEDS: FLECAINIDE ACETATE 50 MG TABLET PO (08:27)
[2020-06-22] MEDS: METOPROLOL TARTRATE 12.5 MG TABLET PO (08:27)
[2020-06-22] MEDS: PREGABALIN (*CRX) 50 MG CAPSULE 100 MG PO ×2 (08:27→13:38)
[2020-06-22] MEDS: LORATADINE 10 MG TABLET PO (08:27)
[2020-06-22] MEDS: ATORVASTATIN 20 MG TABLET PO (08:28)
[2020-06-22] MEDS: FUROSEMIDE INJ 40 MG/4 ML VIAL IV PUSH (08:28)
[2020-06-22] MEDS: CHOLECALCIFEROL 1,000 UNITS TABLET 1000 UNITS PO (08:28)
[2020-06-22] MEDS: PANTOPRAZOLE 40 MG TABLET PO (08:28)
[2020-06-22] MEDS: DEXAMETHASONE SOD PHOS INJ 4 MG/ML VIAL 6 MG IV PUSH (08:28)
[2020-06-22 08:29] LABS: Glucose Point of Care 198 (65-105)
[2020-06-22] MEDS: DOXYCYCLINE HYCLATE 100 MG TABLET PO (08:29)
[2020-06-22] MEDS: FLUTICASONE PROPIONATE 0.05% NA SPR 16 GM BTL (*BKC) 2 SPRAY NASAL (08:29)
[2020-06-22] MEDS: INSULIN ASPART (*BKC) 100 UNITS/ML 8 UNITS SUB-Q ×2 (08:29→13:39)
[2020-06-22] MEDS: DOCUSATE SODIUM 100 MG CAPSULE PO (08:32)
[2020-06-22] MEDS: BACLOFEN 10 MG TABLET PO ×2 (08:32→13:38)
[2020-06-22] MEDS: ALBUTEROL SULFATE (*SP) AEROSOL 1 PUFF 2 PUFF INHALATION (12:45)
[2020-06-22 12:58] LABS: Glucose Point of Care 437 (65-105)
[2020-06-22] MEDS: INSULIN ASPART (*BKC) 100 UNITS/ML 12 UNITS SUB-Q (13:38)
--- NOTE | 2020-06-22 13:42 | PCOTNOTE ---
Patient declined to see OT this PM, per RN. Will continue plan of care if patient does not discharge today.
--- NOTE | 2020-06-22 14:35 | PM.DS ---
DS: Admitting Diagnosis Admitting Diagnosis Admitting Diagnosis: COVID PN/A FIB WITH RVR/DEHYDRATION DS: Discharge Diagnosis Discharge Diagnosis (1) Oxygen dependent: Code(s): Z99.81 - Dependence on supplemental oxygen Status: Acute Assessment and Plan: Continue supplemental O2. (2) COPD (chronic obstructive pulmonary disease): Code(s): J44.9 - Chronic obstructive pulmonary disease, unspecified Status: Acute Assessment and Plan: Stable Continue home meds. (3) Osteomyelitis, chronic: Code(s): M86.60 - Other chronic osteomyelitis, unspecified site Status: Acute Assessment and Plan: Follow up in the outpatient setting. (4) BPH (benign prostatic hyperplasia): Code(s): N40.0 - Benign prostatic hyperplasia without lower urinary tract symptoms Status: Chronic Assessment and Plan: Stable Continue home meds Follow up in the outpatient setting (5) Pneumonia due to COVID-19 virus: Code(s): U07.1 - COVID-19; J12.89 - Other viral pneumonia Status: Acute Assessment and Plan: Completed course of Remdesivir and Dexamethasone. (6) Acute exacerbation of chronic obstructive airways disease: Code(s): J44.1 - Chronic obstructive pulmonary disease with (acute) exacerbation Status: Acute Assessment and Plan: Stable Continue home meds (7) Atrial fibrillation with rapid ventricular response: Code(s): I48.91 - Unspecified atrial fibrillation Status: Acute Assessment and Plan: Stable Continue home meds Follow up in the outpatient setting. (8) Acute dehydration: Code(s): E86.0 - Dehydration Status: Acute Assessment and Plan: Resolved (9) Diabetes mellitus with neuropathy: Qualifiers: Diabetes mellitus type: type 2 Diabetes mellitus terminal makeup operator insulin use: with terminal makeup operator use Qualified Code(s): E11.40 - Type 2 diabetes mellitus with diabetic neuropathy, unspecified; Z79.4 - prison (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 Code(s): E11.40 - Type 2 diabetes mellitus with diabetic neuropathy, unspecified Status: Acute Assessment and Plan: Continue home meds Follow up in the outpatient setting. (10) Chronic anticoagulation: Code(s): Z79.01 - prison (current) use of anticoagulants Status: Acute Assessment and Plan: Continue to monitor in the outpatient setting. DS: Summary Hospital Course Reason for hospitalization: SOB, Covid 19 pneumonia. Hospital Course: Patient was admitted to [address], placed on isolation. At admission time patient had A.fib/A.flutter with RVR which he need Cardizem drip that was then weaned off. Patient was continued on his meds. Patient participated with PT/OT in therapy sessions Time Spent with Patient Time attestation: Total time spent providing and/or coordinating discharge services: Exam Narrative: Exam Narrative: Sitting in bed. Const: General: alert, awake and other (Chronically ill looking.) Nutritional Appearance: overweight Orientation/consciousness: patient oriented x3 HENMT: Head: normal to inspection and normocephalic Ears: hearing grossly normal bilaterally General nose exam: Normal external nose present Eyes: General: appearance normal, both eyes and all related structures Pupils: Equal, round and reactive pupils present EOM: EOMs intact bilaterally Neck: Neck: normal visual inspection, full ROM, no lymphadenopathy, supple and no JVD Resp: Effort & Inspection: able to speak in complete sentences Auscultation: diminished lung sounds Cardio: Rate: other Rhythm: other (Irregularly irregular rhythm.) GI: Inspection: normal to inspection GI Palp: Yes Soft to palpation and Yes No hepatosplenomegaly present Skin: General skin exam: normal color Wounds: no wounds Neuro: General: patient oriented x3 and CN's II-XI intact bilaterally Cranial nerves: Yes CN's II-XII intact bilaterally and Ye
--- NOTE | 2020-06-22 16:20 | PCRCNOTE ---
Home O2 eval completed. 2l at rest and with activity. Set up with [facility]. tank has been delivered to room for transport home. Pt has been instructed to call [facility] once home. Order and paperwork has been faxed.
--- NOTE | 2020-06-22 16:28 | HOMEO2EVAL ---
Home Oxygen Evaluation RC: Home Oxygen (O2) Evaluation Start: 06/22/20 15:15 Freq: ONCE Status: Active Protocol: RPE Activity Type Activity Date Activity User E-Sign Co-Sign Detail Recorded Client Recorded Date Recorded By Document 06/22/20 15:50 SHIV [id number]_012 06/22/20 16:28 SHIV Document 06/22/20 15:57 SHIV [email or web address] 06/22/20 16:28 SHIV Document 06/22/20 16:00 SHIV [email or web address] 06/22/20 16:28 SHIV Document 06/22/20 16:05 SHIV [email or web address] 06/22/20 16:28 SHIV Document 06/22/20 16:10 SHIV [email or web address] 06/22/20 16:28 SHIV 06/22/20 06/22/20 06/22/20 15:50 15:57 16:00 Home O2 Evaluation Test Phase Resting Resting Resting Oxygen Delivery Room Air Nasal Cannula Nasal Cannula Oxygen Flow Rate (L/min) 1 2 Pulse Oximetry (90-100 %) 87 L 87 L 93 Home Oxygen Evaluation Comments Treatment Charges O2 Evaluation 06/22/20 06/22/20 16:05 16:10 Home O2 Evaluation Test Phase Exercise Resting Oxygen Delivery Nasal Cannula Nasal Cannula Oxygen Flow Rate (L/min) 2 2 Pulse Oximetry (90-100 %) 90 92 Home Oxygen Evaluation Comments pt requires 2L rest and with exertion Treatment Charges
== END 2020-06-22 16:38 | disposition home or self-care (01) | DRG 177 ==
LOC: ANHED 11:59 → ANHIMU 06-15 09:03 → ANH3MEDSUR 06-17 10:40 → ANHIMU 06-26 16:33
PROVIDERS: Family Medicine; Nurse Practitioner; Student in an Organized Health Care Education/Training Program; Admitting Provider Family Medicine; Emergency Provider Emergency Medicine; PCP Family Medicine; Visit Provider Internal Medicine
DX: U07.1 COVID-19 (principal); J96.01 Acute respiratory failure with hypoxia; J12.89 Other viral pneumonia; J44.0 Chronic obstructive pulmonary disease with (acute) lower respiratory infection; J44.1 Chronic obstructive pulmonary disease with (acute) exacerbation; M86.60 Other chronic osteomyelitis, unspecified site; E11.69 Type 2 diabetes mellitus with other specified complication; Z99.81 Dependence on supplemental oxygen; E86.0 Dehydration; I48.91 Unspecified atrial fibrillation; E11.43 Type 2 diabetes mellitus with diabetic autonomic (poly)neuropathy; I10 Essential (primary) hypertension; E03.9 Hypothyroidism, unspecified; E78.2 Mixed hyperlipidemia; N40.0 Benign prostatic hyperplasia without lower urinary tract symptoms; M62.838 Other muscle spasm; K59.00 Constipation, unspecified; Z66 Do not resuscitate; Z96.659 Presence of unspecified artificial knee joint; Z79.01 Long term (current) use of anticoagulants; Z79.4 Long term (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; Z86.711 Personal history of pulmonary embolism; Z86.718 Personal history of other venous thrombosis and embolism; Z87.891 Personal history of nicotine dependence; Z98.41 Cataract extraction status, right eye; Z98.42 Cataract extraction status, left eye
CPT/HCPCS: 36415; 36600; 71045; 80048; 80053; 82728; 82805; 83036; 83605; 83615; 83690; 83735; 83880; 84100; 84443; 84460; 84484; 85025; 85027; 85610; 85730; 86140; 87635; 93005; 93306; 94618; 94640; 96374; 97110; 97116; 97162; 97165; 97530; 97535; 99285; A9270; C9803; J1100; J1815; J1940; J7030; J7120; U0003

== ENCOUNTER 2020-09-25 10:08 | Outpatient (CLI) | payer MEDICARE, SELFPAY ==
--- NOTE | 2020-09-25 16:14 | WPDPFTINT ---
PFT Interpretation This is a pulmonary function test with pre and post-bronchodilator spirometry, plethysmography and diffusing capacity. The test was performed and results interpreted in accordance with the 2019 and 2005 ATS/ERS Task Force guidelines respectively using the Hank/Amy reference equations. Findings: Spirometry: The contour of the inspiratory and expiratory flow tracing are normal. The pre bronchodilator FVC is 3.15 L, 66% predicted. The pre bronchodilator FEV1 is 2.32 L, 75% predicted. The FEV1: FVC ratio was 74%. The post bronchodilator FVC is 3.10 L, representing a 2% decrease. The post bronchodilator FEV1 is 2.32 L, representing no change. Plethysmography: The total lung capacity is 4.36 L, 59% predicted. The functional residual capacity is 1.43 L, 46% predicted. The residual volume is 1.17 L, 40% predicted. Diffusing capacity: The absolute diffusion capacity is 18.0, 56% predicted. The diffusing capacity corrected for alveolar volume is 4.25, 125% predicted. Impression: There is a mild restrictive ventilatory abnormality with a normal FEV1. The spirometry is normal without evidence of an obstructive abnormality. There is no significant improvement after inhaling a single dose of albuterol.The absolute diffusing capacity is moderately decreased and normalizes when corrected for alveolar volume. There are no prior studies for comparison
== END 2020-09-25 10:09 | disposition home or self-care (01) ==
PROVIDERS: PCP Family Medicine; Visit Provider Internal Medicine Critical Care Medicine
DX: J44.9 Chronic obstructive pulmonary disease, unspecified (principal); R94.2 Abnormal results of pulmonary function studies
CPT/HCPCS: 94060; 94726; 94729

== ENCOUNTER 2020-12-06 10:09 | Emergency (ER) | payer MEDICARE, SELFPAY ==
--- NOTE | ~2020-12-06 | XR_ITS ---
EXAMINATION: XR femur RT min 2V DATE: 12/06/2020 12:34 INDICATION: Pain, swelling and bruising at the right thigh. TECHNIQUE: Overlapping proximal and distal, AP and lateral views of the right femur were obtained. COMPARISON: None FINDINGS: Right total knee arthroplasty with patellar resurfacing which is in near-anatomic alignment. No perip rosthetic lucency to suggest loosening or infection. No fracture. Mild osteoarthritis at the right sa croiliac and hip joints. Small heterotopic ossicle near the tip of the greater trochanter. Chronic re gion of calcific density which appear to contain a few bubbles unchanged since 06/11/2015 suggesting t his represents injected methylmethacrylate. Soft tissues are otherwise unremarkable. No right knee mary grace int effusion. IMPRESSION: 1. 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 No acute osseous abnormality. 2. Chronic region of calcific density, potentially methylmethacrylate in the subcutaneous tissues ove rlying the right greater trochanter. Correlate with surgical history. Reviewed, dictated and finalized at location A. IMPRESSION: 1. 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 No acute osseous abnormality. 2. Chronic region of calcific density, potentially methylmethacrylate in the corbett bcutaneous tissues overlying the right greater trochanter. Correlate with surgi chela history.
[2020-12-06 11:01] VITALS: BP 164/90; PULSE 79; RESP 16; TEMP 36; O2SAT 97
[2020-12-06 12:39] LABS: Basophils Absolute Auto 0.1 K/mm3 (0.0-0.1); Basophils Percent Auto 0.5 % (0.2-1.2); Eosinophils Absolute Auto 0.1 K/mm3 (0-0.3); Eosinophils Percent Auto 1.3 % (0-4.4); Hematocrit 44.3 % (42.0-52.0); Hemoglobin 14.6 g/dL (14.0-18.0); Immature Granulocyte Absolute 0.14 K/mm3 (0.00-0.031); Immature Granulocyte Percent A 1.5 % (0-0.5); Lymphocytes Absolute Auto 1.28 K/mm3 (0.9-3.2); Lymphocytes Percent Auto 13.6 % (18.3-44.2); Mean Corpuscular Hemoglobin 27.5 pg (26-34); Mean Corpuscular Volume 83.6 fl (80-100); Mean Platelet Volume 10.5 fl (7.4-10.4); Monocytes Absolute Auto 1.4 K/mm3 (0.1-0.6); Monocytes Percent Auto 15.2 % (2.6-8.5); Neutrophils Absolute Auto 6.4 K/mm3 (1.3-6.7); Neutrophils Percent Auto 67.9 % (45.5-73.1); Platelet Count Result 335 k/mm3 (150-375); Red Cell Distribution Width 18.2 % (11.5-14.5); White Blood Count 9.4 K/mm3 (4.5-10.0)
[2020-12-06 12:43] LABS: Anion Gap 2 mmol/L (8-16); Blood Urea Nitrogen 19 mg/dL (9-20); Calcium 8.7 mg/dL (8.4-10.2); Carbon Dioxide 32 mmol/L (22-30); Chloride 106 mmol/L (98-107); Estimated CRCL calculation 81 ml/min; Estimated Glomerular Filt Rate > 60; Glucose 166 mg/dL (75-110); INR 2.1; Potassium 5.1 mmol/L (3.4-5.0); Prothrombin Time 23.8 Seconds (11.1-14.7); Sodium 140 mmol/L (137-145)
[2020-12-06 12:44] LABS: Partial Thromboplastin Time 31.5 SECONDS (22.3-36.8)
--- NOTE | 2020-12-06 13:16 | ED.GENADULT ---
HPI - General Adult General Chief complaint: Extremity Injury, Lower Stated complaint: leg pain Time Seen by Provider: 12/06/20 11:35 Source: patient, family, RN notes reviewed and old records reviewed Mode of arrival: ambulatory Limitations: no limitations History of Present Illness HPI narrative: Patient is a 80-year-old male who presents with bruising and swelling to the posterior right thigh. Patient notes that the pain began while walking up a ramp and had a pull in the back of the upper thigh at the level of the hamstring. Patient saw his primary care doctor on Thursday and has since developed bruising and swelling to the posterior right thigh and presents for concern of this patient denies falling to the ground or any other injuries or trauma. Pain is isolated to the region of the hamstring posterior thigh. Patient is on warfarin at this time for history of DVT Related Data Home Medications Medication Instructions Recorded Confirmed flecainide 50 mg PO Q12H 06/21/19 12/03/20 omeprazole 40 mg PO DAILY 06/21/19 12/03/20 docusate sodium 50 mg PO BID 06/14/20 12/03/20 insulin lispro [Humalog KwikPen 8 - 10 unit SUBCUT .with meals 06/14/20 12/03/20 Insulin] loratadine 10 mg PO DAILY 06/14/20 12/03/20 Allergies Allergy/AdvReac Type Severity Reaction Status Date / Time No Known Allergies Allergy Verified 12/03/20 11:15 Review of Systems Review of Systems: All systems reviewed & are unremarkable except as noted in HPI and below PMFSH Past Medical History Medical History Ankle fracture, bimalleolar, closed Ankle fracture, left Ankle syndesmosis disruption BPH (benign prostatic hyperplasia) Chronic antibiotic suppression Chronic anticoagulation COPD (chronic obstructive pulmonary disease) Diabetes mellitus with neuropathy History of deep vein thrombosis (DVT) of lower extremity History of hemorrhoids History of pulmonary embolism Hypertension Hypothyroidism determined by thyroid function test Infection of spine Osteomyelitis, chronic Oxygen dependent Recurrent deep vein thrombosis (DVT) Rotator cuff arthropathy of right shoulder Spleen absent Type 2 diabetes mellitus Weakness of both lower extremities Surgical History Surgical History H/O bilateral cataract extraction H/O colonoscopy with polypectomy H/O splenectomy H/O total knee replacement Bilaterally History of back surgery History of embolic filter insertion History of pancreatic surgery Removal of pancreatic mass Hx of hernia repair S/P rotator cuff repair Family History Family History Grandparent Diabetes mellitus Father Family history of cardiovascular disease Intracranial aneurysm Mother Dvt femoral (deep venous thrombosis) Sibling Throat cancer Sister Acute myocardial infarction Brother Social History Social History Social History: The patient lives with his it looks like he was in the past patient was smoking up to 3 packs of cigarettes a day. He is retired from [employer]. He drinks occasionally denies any illicit drugs. He is listed as a DNR. Smoking status: Former smoker Second hand tobacco smoke exposure: No Smoking end date: 08/03/77 Alcohol intake: never Substance use: never Substance use type: does not use Gender identity (if verbalized by the patient): Male Spiritual care concerns: No Agree to blood products: Yes Exam Narrative: Exam Narrative: GENERAL: Well-appearing, obesity, and in no acute distress. HEAD: Normocephalic, atraumatic. EYES: PERRLA and EOMI. ENT: Nares clear, no rhinorrhea or epistaxis. Mucous membranes moist. NECK: Supple. No adenopathy or masses. CHEST: Clear to auscultation. No res
[2020-12-06] MEDS: HYDROcodone/acetaminophen (*CRX) 5-325 MG TABLET 1 TAB PO (13:42)
== END 2020-12-06 13:45 | disposition home or self-care (01) ==
PROVIDERS: Emergency Medicine Emergency Medical Services; Emergency Provider Emergency Medicine; PCP Physician Assistant
DX: S76.311A Strain of muscle, fascia and tendon of the posterior muscle group at thigh level, right thigh, initial encounter (principal); S70.11XA Contusion of right thigh, initial encounter; M46.1 Sacroiliitis, not elsewhere classified; M16.11 Unilateral primary osteoarthritis, right hip; E11.40 Type 2 diabetes mellitus with diabetic neuropathy, unspecified; N40.0 Benign prostatic hyperplasia without lower urinary tract symptoms; J44.9 Chronic obstructive pulmonary disease, unspecified; E03.9 Hypothyroidism, unspecified; M86.60 Other chronic osteomyelitis, unspecified site; Z87.891 Personal history of nicotine dependence; Z86.718 Personal history of other venous thrombosis and embolism; Z86.711 Personal history of pulmonary embolism; Z99.81 Dependence on supplemental oxygen; Z90.81 Acquired absence of spleen; Z98.42 Cataract extraction status, left eye; Z98.41 Cataract extraction status, right eye; Z96.653 Presence of artificial knee joint, bilateral; Z79.01 Long term (current) use of anticoagulants; Z79.4 Long term (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; X50.9XXA Other and unspecified overexertion or strenuous movements or postures, initial encounter; Y93.01 Activity, walking, marching and hiking
CPT/HCPCS: 36415; 73552; 80048; 85025; 85610; 85730; 99283; A9270

== ENCOUNTER 2021-09-02 08:13 | Outpatient (CLI) | payer MEDICARE, SELFPAY ==
--- NOTE | ~2021-09-02 | XR_ITS ---
EXAMINATION: XR knee LT min 4V DATE: 09/02/2021 08:40 INDICATION: Left knee pain and swelling TECHNIQUE: Five views of the left knee were obtained. COMPARISON: 03/26/2006 FINDINGS: Alignment is normal. No fracture or osteochondral lesion. There are changes of knee arthrop lasty. No joint effusion/synovitis. Soft tissues are unremarkable. IMPRESSION: 1. No acute osseous abnormality. Reviewed, dictated and finalized at location B. [facility]
== END 2021-09-02 08:14 | disposition home or self-care (01) ==
LOC: CHSIMG 08:16
PROVIDERS: PCP Family Medicine; Visit Provider Orthopaedic Surgery
DX: M25.562 Pain in left knee (principal)
CPT/HCPCS: 73564

== ENCOUNTER → 2021-11-07 10:56 | Outpatient (CLI) | payer MEDICARE, SELFPAY ==
--- NOTE | ~2021-11-07 | XR_ITS ---
XR ankle LT min 3V DATE: 11/07/2021 11:36 INDICATION: Left lower leg fracture, sequelae TECHNIQUE: 5 views COMPARISON: 10/17/2019 left ankle FINDINGS: There is prominent generalized soft tissue swelling of the ankle, increased in severity sin ce 10/17/2019. Diffuse osteopenia. Intramedullary calista of the distal tibial shaft and lateral malleolus is again noted, with 2 distal tra nsverse interlocking screws. Also noted are buttons for tight rope type syndesmotic fixation wires extending transversely across t he intramedullary calista from the lateral to the medial malleolus. There is mild focal depression at the junction of the middle and lateral thirds of the talar dome art icular surface which might be due to recent or old fracture, osteonecrosis or osteochondral defect.. There is persistent widening at the medial clear space. Otherwise no interval fracture or dislocation. No apparent bone destruction. Prominent plantar and posterior calcaneal enthesopathy without erosive change or periostitis. Multiple calcified phleboliths of the lower leg. IMPRESSION: Increased generalized soft tissue swelling of the left ankle since 10/17/2019 Postoperative change of the left ankle Focal depression of the talar dome articular surface near the junction of the middle and lateral thir ds, which may be due to recent or old fracture, osteonecrosis or osteochondral defect Plantar and posterior calcaneal enthesopathy Reviewed, dictated and finalized at location A. IMPRESSION: Increased generalized soft tissue swelling of the left ankle since 10/17/2019 Postoperative change of the left ankle Focal depression of the talar dome articular surface near the junction of the m iddle and lateral thirds, which may be due to recent or old fracture, osteonecr osis or osteochondral defect Plantar and posterior calcaneal enthesopathy
== END ==
PROVIDERS: PCP Family Medicine; Visit Provider Physician Assistant Medical
DX: S82.892S Other fracture of left lower leg, sequela (principal); X58.XXXS Exposure to other specified factors, sequela; M77.32 Calcaneal spur, left foot
CPT/HCPCS: 73610

== ENCOUNTER 2021-11-13 11:04 | Outpatient (CLI) | payer MEDICARE, SELFPAY ==
--- NOTE | ~2021-11-13 | US_ITS ---
EXAMINATION: US venous doppler [facility] DATE: 11/13/2021 12:04 INDICATION: Left lower limb swelling and pain TECHNIQUE: Rojas scale images without and with compression and Doppler images of the left lower extrem ity veins were obtained. COMPARISON: 05/18/2017 FINDINGS: There is chronic nonocclusive thrombus of the left popliteal and peroneal veins. The left c ommon femoral vein, profunda femoral vein, femoral vein, peroneal trunk, posterior tibial veins, and greater saphenous vein are patent. IMPRESSION: 1. Chronic nonocclusive thrombus of the left popliteal and peroneal veins. Reviewed, dictated and finalized at location A.
== END 2021-11-13 11:05 | disposition home or self-care (01) ==
PROVIDERS: PCP Family Medicine; Visit Provider Physician Assistant Medical
DX: I82.532 Chronic embolism and thrombosis of left popliteal vein (principal); I82.552 Chronic embolism and thrombosis of left peroneal vein; M79.89 Other specified soft tissue disorders
CPT/HCPCS: 93971

== ENCOUNTER 2022-01-13 09:58 | Outpatient (RCR) | payer MEDICARE, SELFPAY ==
--- NOTE | 2022-01-13 14:36 | PTOPEVAL ---
Thank you for referring Neal Amaro to [facility].? The patient is scheduled to be seen for therapy? __2__x/week for 10 visits. Please review, sign, date and return this plan of care LEVI. I agree with and certify that the following plan of care is medically necessary. Referring Physician Date Admitting Provider: Attending Provider: Romero Mckenzie MD Referring Provider: *PT Outpatient Evaluation Start: 01/13/22 10:16 Freq: Status: Active Protocol: Document 01/13/22 10:10 JAYCOB (Rec: 01/13/22 10:51 [email or web address] [email or web address]) Therapy Assessment Status Assessment Status Assessment Status Evaluation Outpatient Past Medical History Neurological History Hx Neurological Disorders No Significant History Cardiovascular History Hx Atrial Fibrillation Yes Hx Hypercholesterolemia Yes Hx Hypertension Yes Gastrointestinal History Hx Hernia Yes Hx Other Gastrointestinal Disorders Yes: 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 Genitourinary History Hx Genitourinary Disorders No Significant History Musculoskeletal History Hx Joint Replacement Yes: luis knee replacement Hx Spinal Surgery Yes: back x 2 Endocrine History Hx Diabetes Yes Integumentary History Hx Shingles Yes Reproductive History Hx Reproductive Disorders No Significant History Psychosocial History Hx Psychiatric Disorders No Significant History Pain History History of Any Previous or Ongoing No Significant History Instance of Pain Anesthesia History Hx Anesthesia Reactions No Significant History Evaluation Information Problem Diagnosis left foot pain Onset 11/06/21 Subjective Information Pt. reports that he developed Query Text:As Reported By Patient/ left foot pain a couple months Family ago. He reports that he didnt do anything imparticular to increase his pain. He reports that he was using a cane for ambulation before the pain, but has been since using a walker. He reports that he in the recent days has seen pain decrease. He reports that he is having trouble getting off his walker . 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 He no longer drives. His activity consist of being able to get throug
--- NOTE | 2022-03-19 08:50 | PCPTNOTE ---
Mr. Amaro attended a total of 8 treatment sessions from 01/13/22 to 02/11/22. He has failed to return to the clinic and will be discharged from our care at this time. Refer to last daily note for pt. discharge status.
== END 2022-02-11 14:16 | disposition home or self-care (01) ==
LOC: CHSPT 09:58
PROVIDERS: Visit Provider Orthopaedic Surgery
DX: M25.572 Pain in left ankle and joints of left foot (principal)
CPT/HCPCS: 97110; 97112; 97116; 97161; 97530

== ENCOUNTER 2022-09-25 08:40 | Outpatient (CLI) | payer MEDICARE, SELFPAY ==
--- NOTE | ~2022-09-25 | XR_ITS ---
EXAMINATION: XR barium swallow DATE: 09/25/2022 09:29 INDICATION: Dysphagia TECHNIQUE: The patient drank thick barium, gas-producing crystals, and thin barium. Fluoroscopic spot radiographs of the hypopharynx and esophagus were obtained. Standard protocol was modified to accoun t for patient's body habitus and limited mobility with inability to stand. Fluoroscopy exposure time was 2.3 minutes. A total of 1154 separate images were recorded. Total DAP was 20.93 Gycm^2 COMPARISON: None. FINDINGS: The pharynx is symmetric and without evidence of mass lesion or mucosal irregularity. The e sophagus is normal without mass or stricture. There is weakening of the primary and secondary perista ltic waves in the mid esophagus with multiple tertiary contractions in break up of the contrast bolus observed in the distal esophagus. There is no hiatal hernia. A single small episode of gastroesophag eal reflux with a minimal amount of contrast in the distalmost esophagus was observed with water siph on. No additional gastroesophageal reflux with provocative maneuvers. IMPRESSION: 1. Esophageal dysphagia with weakening of the primary and secondary peristaltic waves in the mid esop hagus and multiple tertiary contractions in the distal esophagus. 2. Single episode of gastroesophageal reflux of a minimal amount of contrast in the distal esophagus with water siphon without no additional reflux observed with provocative maneuvers. Reviewed, dictated and finalized at location A. O PRESENTER IMPRESSION: 1. Esophageal dysphagia with weakening of the primary and secondary peristaltic waves in the mid esophagus and multiple tertiary contractions in the distal es ophagus. 2. Single episode of gastroesophageal reflux of a minimal amount of contrast in the distal esophagus with water siphon without no additional reflux observed w ith provocative maneuvers.
== END 2022-09-25 08:41 | disposition home or self-care (01) ==
LOC: ANHIMG 08:40
PROVIDERS: PCP Family Medicine; Visit Provider Physician Assistant Medical
DX: R13.19 Other dysphagia (principal)
CPT/HCPCS: 74220

== ENCOUNTER 2022-12-02 07:58 | Emergency (ER) | payer MEDICARE, SELFPAY ==
[2022-12-02] VITALS (10 sets, daily range): BP systolic 153–175; BP diastolic 77–97; PULSE 57–65; RESP 12–23; TEMP 36.8; O2SAT 95–100
--- NOTE | ~2022-12-02 | CT_ITS ---
EXAMINATION: CT brain wo con DATE: 12/02/2022 08:49 INDICATION: Head injury. TECHNIQUE: Computed tomography (CT) of the head was performed without intravenous contrast. The mA wa s adjusted according to patient size. Iterative reconstruction technique was employed. The dose-lengt h product was 756.67 mGy-cm. COMPARISON: Head CT 09/21/2018 FINDINGS: There is no intracranial hemorrhage, acute infarction, or abnormal intracranial mass lesion . The ventricles are normal in size. There are likely changes of ocular lens replacement surgeries. T he paranasal sinuses are clear. The mastoid air cells are normal. IMPRESSION: 1. Normal brain. Reviewed, dictated and finalized at location A. IMPRESSION: 1. Normal brain.
--- NOTE | ~2022-12-02 | XR_ITS ---
Left Humerus Technique: AP and lateral views were obtained. Clinical History: Trauma Findings: No fracture or dislocation is seen. Osseous alignment is anatomic. There is mild degenerati ve change of the AC joint and moderate degenerative change of the glenohumeral joint. Soft tissues ar e unremarkable. Impression: No fracture or dislocation. Degenerative changes, as above. Reviewed, dictated and finalized at location . Impression: No fracture or dislocation. Degenerative changes, as above.
--- NOTE | ~2022-12-02 | XR_ITS ---
EXAMINATION: XR shoulder LT min 2V DATE: 12/02/2022 09:05 INDICATION: Fall with tenderness and limited range of motion at the left humerus TECHNIQUE: AP internally and externally rotated, AP oblique externally rotated and transscapular Y vi ews of the left shoulder were obtained. COMPARISON: None FINDINGS: Normal alignment. No acute fracture. Suggestion of an old healed fracture to surgical neck of the pro ximal left humerus. There are also few old healed left rib fractures. Moderate osteoarthritis at the left acromioclavicular and glenohumeral joints. Moderate-sized anterior subacromial spur. Soft tissu es are unremarkable. IMPRESSION: 1. Old fracture deformities at the left humeral neck and several left-sided ribs. No acute osseous ad enopathy. 2. Moderate left acromioclavicular and glenohumeral osteoarthritis. 3. Moderate-sized subacromial spur which could predispose towards rotator cuff disease. Reviewed, dictated and finalized at location L. IMPRESSION: 1. Old fracture deformities at the left humeral neck and several left-sided rib s. No acute osseous adenopathy. 2. Moderate left acromioclavicular and glenohumeral osteoarthritis. 3. Moderate-sized subacromial spur which could predispose towards rotator cuff disease.
--- NOTE | ~2022-12-02 | XR_ITS ---
EXAMINATION: XR chest 1V DATE: 12/02/2022 09:05 INDICATION: Fall. TECHNIQUE: A single frontal view of the chest was obtained on 2 radiographs. COMPARISON: Chest single view 06/14/2020, chest CT 06/14/2018 FINDINGS: There are mild airspace opacities in right midlung zone and left mid and lower lung zones. No pleural effusion or pneumothorax. The heart size is normal. There are multiple old healed left rib fractures. IMPRESSION: 1. Mild airspace opacities in right midlung zone and left mid and lower lung zones, consistent with a telectasis/scarring versus pneumonia. Reviewed, dictated and finalized at location A. IMPRESSION: 1. Mild airspace opacities in right midlung zone and left mid and lower lung zo robin, consistent with atelectasis/scarring versus pneumonia.
--- NOTE | ~2022-12-02 | CT_ITS ---
EXAMINATION: CT cervical spine wo con DATE: 12/02/2022 08:49 INDICATION: Head injury. TECHNIQUE: Computed tomography (CT) of the cervical spine was performed without intravenous contrast. Automated exposure control and iterative reconstruction technique were employed. The dose-length pro duct was 676.68 mGy-cm. COMPARISON: None FINDINGS: Bone alignment is normal. Vertebral body heights are normal. There is mildly decreased disc height at C3-C4. There is moderately decreased disc height at C5-C6 with interbody fusion. The follo wing disc levels are specifically discussed: C2-C3: There is mild bilateral uncovertebral joint osteoarthritis. There is mild bilateral facet join t osteoarthritis. There is mild left neural foraminal stenosis. There is no central canal stenosis. C3-C4: There is mild bilateral uncovertebral joint osteoarthritis. There is mild bilateral facet join t osteoarthritis. There is no neural foraminal stenosis. There is mild central canal stenosis. C4-C5: There is no uncovertebral joint osteoarthritis. There is mild bilateral facet joint osteoarthr itis. There is no neural foraminal stenosis. There is no central canal stenosis. C5-C6: There is mild bilateral uncovertebral joint hypertrophy. There is mild bilateral facet joint o steoarthritis. There is no neural foraminal stenosis. There is no central canal stenosis. C6-C7: There is no uncovertebral joint osteoarthritis. There is severe bilateral facet joint osteoart hritis. There is mild left neural foraminal stenosis. There is no central canal stenosis. C7-T1: There is no uncovertebral joint osteoarthritis. There is severe bilateral facet joint osteoart hritis. There is mild bilateral neural foraminal stenosis. There is no central canal stenosis. IMPRESSION: 1. No fracture. 2. Mild cervical spondylosis. Reviewed, dictated and finalized at location A.
--- NOTE | ~2022-12-02 | XR_ITS ---
EXAMINATION: XR pelvis 1-2V DATE: 12/02/2022 09:05 INDICATION: Pelvic pain. Fall. TECHNIQUE: An anteroposterior view of the pelvis was obtained on 2 radiographs. COMPARISON: Right femur radiographs 12/06/2020 FINDINGS: Bone alignment is normal. No fracture. There is moderate osteoarthritis of the hips. There are changes of posterior fusion procedure in lumbar spine. There is a filter in the inferior vena cav a. Surgical clips overlie left abdomen. IMPRESSION: 1. Moderate osteoarthritis of the hips. Reviewed, dictated and finalized at location A.
[2022-12-02] MEDS: MORPHINE SULFATE (*CRX) 4 MG/ML INJ IV PUSH (08:27)
--- NOTE | 2022-12-02 08:33 | ED.FALL ---
HPI - Fall General Chief Complaint: Fall Stated Complaint: fall Time Seen by Provider: 12/02/22 08:08 History of Present Illness HPI Narrative: 82-year-old male presenting after he was trying to get onto a stool and fell and hit his head against something, no loss of consciousness, nausea or vomiting, he does have a lot of pain in his left upper arm. Related Data Home Medications Medication Instructions Recorded Confirmed flecainide 50 mg tablet 50 mg PO Q12H 06/21/19 05/01/22 docusate sodium 50 mg capsule 50 mg PO BID 06/14/20 05/01/22 loratadine 10 mg capsule 10 mg PO DAILY 06/14/20 05/01/22 lactobacillus combination no.9 4 4,000 mmu cells PO DAILY 11/07/21 05/01/22 billion cell capsule (Adult 50 Plus Probiotic) sennosides 8.6 mg-docusate sodium 1 tab-cap PO QHS 11/07/21 05/01/22 50 mg tablet Allergies Allergy/AdvReac Type Severity Reaction Status Date / Time No Known Allergies Allergy Verified 09/11/22 08:27 Review of Systems Review of Systems: CONST: No fever. HEENT: No sore throat C/V: No chest pain RESP: No cough GI: No nausea or vomiting : No dysuria. M/S: Left arm pain. SKIN: No rash. NEURO: [No headache or focal numbness or weakness] PSYCH: [No depression] [facility] Past Medical History Medical History (Updated 12/02/22 @ 10:14 by Lisbet Hardin MD) Acute exacerbation of chronic obstructive airways disease Ankle fracture, bimalleolar, closed Ankle syndesmosis disruption BPH (benign prostatic hyperplasia) Chronic antibiotic suppression Chronic anticoagulation Constipation COPD (chronic obstructive pulmonary disease) Diabetes mellitus with neuropathy High cholesterol History of deep vein thrombosis (DVT) of lower extremity History of hemorrhoids History of pulmonary embolism Hypertension Hypothyroidism determined by thyroid function test Infection of spine Left ankle pain Osteomyelitis, chronic Pneumonia due to COVID-19 virus Recurrent deep vein thrombosis (DVT) Rotator cuff arthropathy of right shoulder Rupture of left Achilles tendon SOB (shortness of breath) Spleen absent Vision changes Weakness of both lower extremities Surgical History Surgical History H/O bilateral cataract extraction H/O colonoscopy with polypectomy H/O splenectomy H/O total knee replacement Bilaterally History of back surgery History of embolic filter insertion History of pancreatic surgery Removal of pancreatic mass Hx of hernia repair S/P rotator cuff repair Total knee replacement status Family History Family History Grandparent Diabetes mellitus Father Family history of cardiovascular disease Intracranial aneurysm Mother Dvt femoral (deep venous thrombosis) Sibling Throat cancer Sister Acute myocardial infarction Brother Social History Social History Social History: The patient lives with his it looks like he was in the past patient was smoking up to 3 packs of cigarettes a day. 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 He drinks occasionally denies any illicit drugs. He is listed as a DNR. Smoking packs per day: 3 Smoking cigarettes per day: 60.0 Years smoked: 20 Smoking pack-years: 60.00 Smoking status: Former smoker Tobacco type: cigarettes Second hand tobacco smoke exposure: No Smoking end date: 08/03/74 Alcohol intake: current Drinks per week: 2 Substance use: never Substance use type: does not use Living arrangements: with family Occupation/Education: retired Gender identity (if verbalized by the patient): Male Sexual Orientation (if Verbalized by the Patient): Straight or Heterosexual Spiritual care concerns: No Agree to blood products: Yes Exam Narrative: EXAMINATION OF ORGAN SYSTEMS/BODY AREAS: Con
[2022-12-02] MEDS: traMADol HCL (*CRX) 50 MG TABLET 25 MG PO (10:37)
== END 2022-12-02 11:03 | disposition home or self-care (01) ==
PROVIDERS: Emergency Provider Emergency Medicine; PCP Family Medicine
DX: S49.92XA Unspecified injury of left shoulder and upper arm, initial encounter (principal); S09.90XA Unspecified injury of head, initial encounter; J44.9 Chronic obstructive pulmonary disease, unspecified; E11.40 Type 2 diabetes mellitus with diabetic neuropathy, unspecified; E78.00 Pure hypercholesterolemia, unspecified; I10 Essential (primary) hypertension; E03.9 Hypothyroidism, unspecified; N40.0 Benign prostatic hyperplasia without lower urinary tract symptoms; Z96.653 Presence of artificial knee joint, bilateral; Z86.718 Personal history of other venous thrombosis and embolism; Z86.711 Personal history of pulmonary embolism; Z86.16 Personal history of COVID-19; Z87.01 Personal history of pneumonia (recurrent); Z98.42 Cataract extraction status, left eye; Z98.41 Cataract extraction status, right eye; Z90.81 Acquired absence of spleen; M19.012 Primary osteoarthritis, left shoulder; M77.8 Other enthesopathies, not elsewhere classified; M47.812 Spondylosis without myelopathy or radiculopathy, cervical region; M16.0 Bilateral primary osteoarthritis of hip; R91.8 Other nonspecific abnormal finding of lung field; Z79.01 Long term (current) use of anticoagulants; Z79.4 Long term (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; W17.89XA Other fall from one level to another, initial encounter
CPT/HCPCS: 70450; 71045; 72125; 72170; 73030; 73060; 96374; 96375; 99284; A4565; A9270; J0131; J2270

== ENCOUNTER 2023-01-26 10:00 | Outpatient (CLI) | payer MEDICARE, SELFPAY ==
[2023-01-31 16:01] LABS: CALR Exon 9 Mutation Not Detected (Not Detected); CSF3R Exon 14/17 Mutation Not Detected (Not Detected); JAK2 Exon 12 Mutation Not Detected (Not Detected); JAK2 V617F Mutation Not Detected (Not Detected); MPL Exon 10 Mutation Not Detected (Not Detected); Specimen Source Blood
== END 2023-01-26 10:01 | disposition home or self-care (01) ==
LOC: ANHLAB 10:01
PROVIDERS: Visit Provider Internal Medicine Hematology & Oncology
DX: D75.1 Secondary polycythemia (principal)
CPT/HCPCS: 36415; 81219; 81270; 81279; 81339; 81479

== ENCOUNTER 2023-04-10 14:15 | Emergency (ER) | payer MEDICARE, SELFPAY ==
[2023-04-10 14:20] VITALS: BP 139/58; PULSE 69; RESP 24; TEMP 36.6; O2SAT 94
--- NOTE | 2023-04-10 14:24 | ECG_ITS ---
Measurements Intervals [place] Rate: 66 P: 162 MN: 113 QRS: 23 QRSD: 103 T: 48 QT: 406 QTc: 426 Interpretive Statements SINUS RHYTHM BORDERLINE AV CONDUCTION DELAY LOW QRS VOLTAGE IN PRECORDIAL LEADS BASELINE WANDER- I, II, AVR, AVL, AVF, V1, V3-V4 BORDERLINE ECG COMPARED TO ECG 06/15/2020 04:38:24 NO SIGNIFICANT CHANGES Electronically Signed On 04-10-2023 15:36:00 CDT by Dani Cortez D.O.
--- NOTE | 2023-04-10 14:52 | ED.GENADULT ---
HPI - General Adult General Chief complaint: Shortness of Breath/Dyspnea Stated complaint: Left Arm Pain Time Seen by Provider: 04/10/23 14:30 Source: patient, family, RN notes reviewed and old records reviewed Mode of arrival: ambulatory Limitations: no limitations History of Present Illness HPI narrative: 82 year old male accompanied by family with left arm pain mainly in humerus area and pain is when he uses his arm especially increases with use of his walker. states that patient fell in December and had to go to the ED per ambulance. Patient denies any chest pain,denies any changes in his breathing, just finished meal at the [employer] prior to coming to clinic. Patient's x-ray from December shows osteoarthritis with concern for spur which could predispose towards rotator cuff disease. Patient states that he has taken his Tramadol and it doesn't help. Patient states that arm has been hurting intermittently for past 1-2 weeks with pain bad today when he was leaving restaurant states it is 10/10. Patient and deny any recent falls. MD complaint: left arm pain Onset (ago): week(s) (1-2 week with severe today) Location: left and upper extremity Severity: severe Severity scale (1-10): 10 Quality: stabbing and aching Exacerbating factors: other (ambulation with walker) Treatments prior to arrival: other (has taken Tramadol ) Related Data Home Medications Medication Instructions Recorded Confirmed flecainide 50 mg tablet 50 mg PO Q12H 06/21/19 03/19/23 docusate sodium 50 mg capsule 50 mg PO BID 06/14/20 03/19/23 loratadine 10 mg capsule 10 mg PO DAILY 06/14/20 03/19/23 lactobacillus combination no.9 4 4,000 mmu cells PO DAILY 11/07/21 03/19/23 billion cell capsule (Adult 50 Plus Probiotic) sennosides 8.6 mg-docusate sodium 1 tab-cap PO QHS 11/07/21 03/19/23 50 mg tablet Allergies Allergy/AdvReac Type Severity Reaction Status Date / Time No Known Allergies Allergy Verified 04/10/23 14:26 Review of Systems Review of Systems: CONSTITUTIONAL: Denies fever, chills, or sweats. EYES: Denies visual changes, redness, or discharge.states his vision is bad ENT: Denies rhinorrhea, congestion, sore throat, or otalgia. CARDIOVASCULAR: Denies chest pain, palpitations, or increased edema. RESPIRATORY: Denies cough or increased dyspnea. GASTROINTESTINAL: Denies abdominal pain, nausea, vomiting, or diarrhea. GENITOURINARY: Denies dysuria or hematuria. SKIN: Denies rash or itching. MUSCULOSKELETAL: Denies back pain, positive for left humerus pain, or myalgia. NEUROLOGIC: Denies headache, numbness, or weakness. PSYCHIATRIC: Denies anxiety or depression. All systems reviewed & are unremarkable except as noted in HPI and below PMFSH Past Medical History Medical History Acute exacerbation of chronic obstructive airways disease Ankle fracture, bimalleolar, closed Ankle syndesmosis disruption BPH (benign prostatic hyperplasia) Chronic antibiotic suppression Chronic anticoagulation Constipation COPD (chronic obstructive pulmonary disease) Diabetes mellitus with neuropathy High cholesterol History of deep vein thrombosis (DVT) of lower extremity History of hemorrhoids History of pulmonary embolism Hypertension Hypothyroidism determined by thyroid function test Infection of spine Left ankle pain Osteomyelitis, chronic Pneumonia due to COVID-19 virus Recurrent deep vein thrombosis (DVT) Rotator cuff arthropathy of right shoulder Rupture of left Achilles tendon SOB (shortness of breath) Spleen absent Vision changes Weakness of both lower extremities Surgical History Surgical History H/O bilateral cataract extraction H/O colonoscopy with polypectomy H/O splenectomy H/O total knee replacement Bilaterally History of back surgery History of embolic filter insertion History of pancreatic surgery Removal of pancreatic ma
== END 2023-04-10 15:20 | disposition home or self-care (01) ==
PROVIDERS: Emergency Provider Registered Nurse; PCP Family Medicine
DX: M79.622 Pain in left upper arm (principal); N40.0 Benign prostatic hyperplasia without lower urinary tract symptoms; J44.9 Chronic obstructive pulmonary disease, unspecified; E11.40 Type 2 diabetes mellitus with diabetic neuropathy, unspecified; E78.00 Pure hypercholesterolemia, unspecified; Z86.718 Personal history of other venous thrombosis and embolism; Z86.711 Personal history of pulmonary embolism; Z98.42 Cataract extraction status, left eye; Z98.41 Cataract extraction status, right eye; Z96.653 Presence of artificial knee joint, bilateral
CPT/HCPCS: 93005; 99213; G0463

== ENCOUNTER 2023-04-24 11:36 | Outpatient (CLI) | payer MEDICARE, SELFPAY ==
[2023-04-24 11:51] LABS: Basophils Absolute Auto 0.1 K/mm3 (0.0-0.1); Basophils Percent Auto 0.8 % (0.2-1.2); Eosinophils Absolute Auto 0.2 K/mm3 (0-0.3); Eosinophils Percent Auto 2.8 % (0-4.4); Hematocrit 50.2 % (42.0-52.0); Hemoglobin 16.2 g/dL (14.0-18.0); Immature Granulocyte Absolute 0.07 K/mm3 (0.00-0.031); Immature Granulocyte Percent A 1.2 % (0-0.5); Mean Corpuscular HGB Conc 32.3 g/dl (32-36); Mean Corpuscular Hemoglobin 28.8 pg (26-34); Mean Corpuscular Volume 89.3 fl (80-100); Mean Platelet Volume 10.4 fl (7.4-10.4); Monocytes Absolute Auto 0.9 K/mm3 (0.1-0.6); Monocytes Percent Auto 15.1 % (2.6-8.5); Neutrophils Absolute Auto 3.5 K/mm3 (1.3-6.7); Neutrophils Percent Auto 57.1 % (45.5-73.1); Platelet Count Result 283 k/mm3 (150-375); Red Blood Count 5.62 M/mm3 (4.6-6.20); Red Cell Distribution Width 17.6 % (11.5-14.5); White Blood Count 6.1 K/mm3 (4.5-10.0)
== END 2023-04-24 11:37 | disposition home or self-care (01) ==
LOC: ANHLAB 11:37
PROVIDERS: PCP Family Medicine; Visit Provider Internal Medicine Hematology & Oncology
DX: D75.1 Secondary polycythemia (principal)
CPT/HCPCS: 36415; 85025

== ENCOUNTER 2023-07-26 23:45 | Emergency (ER) | payer MEDICARE, SELFPAY ==
--- NOTE | ~2023-07-26 | CT_ITS ---
EXAMINATION: CT brain wo con DATE: 07/27/2023 01:07 INDICATION: Fall, head injury. Patient taking anticoagulation medication TECHNIQUE: Computed tomography (CT) of the head was performed without intravenous contrast. The mA wa s adjusted according to patient size. Iterative reconstruction technique was employed. Exam dose: 68 1.00 mGy-cm total exam DLP. COMPARISON: None FINDINGS: Bilateral vertebral artery and carotid siphon internal carotid artery calcifications. There is focal subarachnoid hemorrhage in the left parasagittal area and near the falx, relatively hi gh over the left parietal convexity. There is central and cortical cerebral and cerebellar moderate atrophy. No intracranial mass lesion or hemorrhage is noted otherwise. No midline shift or mass effect. No sub dural or epidural hematoma. No skull fracture or bone destruction. Mastoid air cells and paranasal sinuses are normally developed and aerated. IMPRESSION: Focal subarachnoid hemorrhage in the left parasagittal area relatively high over the lef t parietal convexity Reviewed, dictated and finalized at Location A. Reviewed, dictated and finalized at location A. ERTY INSURANCE CLAIMS EXAMINER IMPRESSION: Focal subarachnoid hemorrhage in the left parasagittal area relati vely high over the left parietal convexity
--- NOTE | ~2023-07-26 | CT_ITS ---
EXAMINATION: CT cervical spine wo con DATE: 07/27/2023 01:07 INDICATION: Fall. Neck injury. TECHNIQUE: Computed tomography (CT) of the cervical spine was performed without intravenous contrast. Automated exposure control and iterative reconstruction technique were employed. Exam dose: 641.98 mGy-cm total exam DLP. COMPARISON: None FINDINGS: There are huge bridging osteophytes along the anterior cervical spine. There is moderate degenerative disc disease, moderately severe at C5-6. There is prominent degenerati ve disc disease at the upper thoracic spine. There is degenerative change at the apophyseal joints. There is uncovertebral joint spurring at C5-6 in particular. No fracture or dislocation of the cervical spine or locked facet. No prevertebral soft tissue swelli ng. . IMPRESSION: Cervical and thoracic spondylosis; no fracture or dislocation Reviewed, dictated and finalized at Location A. Reviewed, dictated and finalized at location A. PASSENGER VESSEL
[2023-07-26 23:50] VITALS: BP 140/61; PULSE 60; RESP 17; TEMP 36.3; O2SAT 97
--- NOTE | 2023-07-26 23:55 | ECG_ITS ---
Measurements Intervals [place] Rate: 60 P: UT: 0 QRS: 33 QRSD: 102 T: 51 QT: 402 QTc: 404 Interpretive Statements NORMAL SINUS RHYTHM COMPARED TO ECG 04/10/2023 14:24:01 NO CHANGE Electronically Signed On 07-27-2023 13:49:19 INTERNAL REVENUE SERVICE AGENT by Chayito Michelle M.D.
--- NOTE | 2023-07-27 00:50 | ED.FALL ---
HPI - Fall General Chief Complaint: Fall Stated Complaint: fall Time Seen by Provider: 07/27/23 00:48 Source: patient and family (son) Limitations: no limitations History of Present Illness HPI Narrative: Presents as head injury on anticoagulation. Believes he accidentally rolled out of bed while sleeping. Struck his head on nightstand. Takes warfarin for atrial fibrillation and history of multiple blood clots in leg s/p filter in leg. Also on opiates. Sustained right ear laceration and skin tear to left arm. Last tetanus within 5 year per pt and son. Not incontinent of bowel/bladder, no tongue trauma. Denies headache, only ear pain. Related Data Home Medications Medication Instructions Recorded Confirmed flecainide 50 mg tablet 50 mg PO Q12H 06/21/19 04/30/23 docusate sodium 50 mg capsule 50 mg PO BID 06/14/20 04/30/23 loratadine 10 mg capsule 10 mg PO DAILY 06/14/20 04/30/23 lactobacillus combination no.9 4 4,000 mmu cells PO DAILY 11/07/21 04/30/23 billion cell capsule (Adult 50 Plus Probiotic) sennosides 8.6 mg-docusate sodium 1 tab-cap PO QHS 11/07/21 04/30/23 50 mg tablet Allergies Allergy/AdvReac Type Severity Reaction Status Date / Time No Known Allergies Allergy Verified 07/26/23 23:55 [facility] Past Medical History Medical History (Updated 07/28/23 @ 16:34 by Nicole Garibay MD) Acute exacerbation of chronic obstructive airways disease Ankle fracture, bimalleolar, closed Ankle syndesmosis disruption Atrial fibrillation BPH (benign prostatic hyperplasia) Chronic antibiotic suppression Chronic anticoagulation Constipation COPD (chronic obstructive pulmonary disease) Diabetes mellitus with neuropathy High cholesterol History of deep vein thrombosis (DVT) of lower extremity History of hemorrhoids History of pulmonary embolism Hypertension Hypothyroidism determined by thyroid function test Infection of spine Left ankle pain Osteomyelitis, chronic Pneumonia due to COVID-19 virus Recurrent deep vein thrombosis (DVT) Rotator cuff arthropathy of right shoulder Rupture of left Achilles tendon SOB (shortness of breath) Spleen absent Vision changes Weakness of both lower extremities Surgical History Surgical History (Updated 07/28/23 @ 16:22 by Nicole Garibay MD) H/O bilateral cataract extraction H/O colonoscopy with polypectomy H/O splenectomy H/O total knee replacement Bilaterally History of back surgery x2 ([facility]), x1 ([facility]) History of embolic filter insertion History of pancreatic surgery Removal of pancreatic mass ([facility]) Hx of hernia repair S/P rotator cuff repair Total knee replacement status Family History Family History Grandparent Diabetes mellitus Father Family history of cardiovascular disease Intracranial aneurysm Mother Dvt femoral (deep venous thrombosis) Sibling Throat cancer Sister Acute myocardial infarction Brother Social History Social History Social History: The patient lives with his it looks like he was in the past patient was smoking up to 3 packs of cigarettes a day. He is retired from [employer]. He drinks occasionally denies any illicit drugs. He is listed as a DNR. Smoking packs per day: 3 Smoking cigarettes per day: 60.0 Years smoked: 20 Smoking pack-years: 60.00 Smoking status: Former smoker Tobacco type: cigarettes Second hand tobacco smoke exposure: No Smoking end date: 08/03/74 Alcohol intake: current Drinks per week: 2 Substance use: never Substance use type: does not use Lack of Transportation: No Lack of Food: Never True Current Housing: I Have Housing Concerned About Future Housing: No Difficulty Paying Gas/Electric Bills: No Difficulty Paying for Meds: No Currently Unemployed: No Education: High School D
[2023-07-27 01:44] VITALS: BP 151/82; PULSE 62; RESP 16; O2SAT 98
[2023-07-27 02:20] LABS: Basophils Percent Auto 0.4 % (0.2-1.2); Eosinophils Absolute Auto 0.2 K/mm3 (0-0.3); Eosinophils Percent Auto 2.2 % (0-4.4); Hematocrit 51.7 % (42.0-52.0); Hemoglobin 16.3 g/dL (14.0-18.0); Immature Granulocyte Absolute 0.07 K/mm3 (0.00-0.031); Lymphocytes Absolute Auto 1.13 K/mm3 (0.9-3.2); Lymphocytes Percent Auto 16.8 % (18.3-44.2); Mean Corpuscular HGB Conc 31.5 g/dl (32-36); Mean Corpuscular Volume 88.7 fl (80-100); Mean Platelet Volume 10.7 fl (7.4-10.4); Monocytes Percent Auto 14.2 % (2.6-8.5); Neutrophils Absolute Auto 4.4 K/mm3 (1.3-6.7); Neutrophils Percent Auto 65.4 % (45.5-73.1); Platelet Count Result 290 k/mm3 (150-375); Red Blood Count 5.83 M/mm3 (4.6-6.20); Red Cell Distribution Width 17.9 % (11.5-14.5); White Blood Count 6.7 K/mm3 (4.5-10.0)
[2023-07-27 02:31] LABS: Partial Thromboplastin Time 34.2 SECONDS (22.3-36.8); Prothrombin Time 33.4 Seconds (11.1-14.7)
[2023-07-27 02:37] LABS: Alanine Aminotransferase 24 U/L (6-50); Albumin Level 3.5 g/dL (3.5-5.1); Alkaline Phosphatase 117 U/L (38-126); Anion Gap 4 mmol/L (8-16); Aspartate Amino Transferase 31 U/L (17-59); Bilirubin,Total 0.6 mg/dL (0.2-1.3); Blood Urea Nitrogen 19 mg/dL (9-20); Calcium 8.8 mg/dL (8.4-10.2); Carbon Dioxide 31 mmol/L (22-30); Chloride 106 mmol/L (98-107); Estimated CRCL calculation 73 ml/min; Estimated Glomerular Filt Rate 58; Glucose 90 mg/dL (65-110); Potassium 4.3 mmol/L (3.4-5.0); Sodium 141 mmol/L (137-145)
[2023-07-27 02:48] LABS: Troponin I < 0.012 ng/mL (0.000-0.034)
[2023-07-27 04:05] VITALS: BP 155/87; PULSE 61; RESP 22; O2SAT 95
[2023-07-27] MEDS: PHYTONADIONE ADULT INJ 10 MG in DEXTROSE 5% IN WATER 50 ML 100 MG IVPB (04:34)
[2023-07-27] MEDS: HUMAN PROTHROMBIN COMPLEX(PCC) 500 UNITS, HUMAN PROTHROMBIN COMPLEX(PCC) 2,000 UNITS in... 8.4 UNITS IV CONT (04:40)
[2023-07-27 04:56] LABS: INR 3.2
[2023-07-27 05:12] LABS: Glucose Point of Care 74 mg/dl (65-105)
[2023-07-27] MEDS: AZELASTINE HCL NASAL 0.1% 137 MCG/SPR 30 ML BTL 1 SPRAY NASAL (05:23)
[2023-07-27 05:24] VITALS: BP 142/76; PULSE 96; RESP 18; O2SAT 100
[2023-07-27] MEDS: PREGABALIN (*CRX) 75 MG CAPSULE 150 MG PO (05:41)
[2023-07-27 06:01] VITALS: BP 150/76; PULSE 64; RESP 16; O2SAT 95
== END 2023-07-27 07:28 | disposition short-term general hospital (02) ==
LOC: ANHED 07-27 00:58
PROVIDERS: Physician Assistant; Emergency Provider Student in an Organized Health Care Education/Training Program; PCP Family Medicine
DX: S06.6XAA Traumatic subarachnoid hemorrhage with loss of consciousness status unknown, initial encounter (principal); S01.311A Laceration without foreign body of right ear, initial encounter; S40.812A Abrasion of left upper arm, initial encounter; J44.9 Chronic obstructive pulmonary disease, unspecified; I48.91 Unspecified atrial fibrillation; I10 Essential (primary) hypertension; E78.00 Pure hypercholesterolemia, unspecified; E03.9 Hypothyroidism, unspecified; E11.40 Type 2 diabetes mellitus with diabetic neuropathy, unspecified; Z66 Do not resuscitate; Z87.01 Personal history of pneumonia (recurrent); Z98.42 Cataract extraction status, left eye; Z98.41 Cataract extraction status, right eye; Z96.653 Presence of artificial knee joint, bilateral; Z86.718 Personal history of other venous thrombosis and embolism; Z86.16 Personal history of COVID-19; Z86.711 Personal history of pulmonary embolism; Z87.891 Personal history of nicotine dependence; Z79.01 Long term (current) use of anticoagulants; Z79.4 Long term (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; W06.XXXA Fall from bed, initial encounter
CPT/HCPCS: 36415; 70450; 72125; 80053; 82948; 84484; 85025; 85610; 85730; 93005; 96365; 96368; 99285; A9270; J3430; J7168

== ENCOUNTER 2023-08-25 09:27 | Outpatient (CLI) | payer MEDICARE, SELFPAY ==
--- NOTE | ~2023-08-25 | XR_ITS ---
Right elbow Technique: AP, oblique, and lateral views were obtained. Clinical History: Pain Findings: No acute fracture or dislocation is seen. Osseous alignment is anatomic. Joint spaces are p reserved. There is no displacement of the fat pads, and no evidence of joint effusion. There is presu med enthesopathic change versus loose body near the lateral epicondyle. Impression: Enthesopathic change versus loose body near the lateral epicondyle. No acute fracture or dislocation seen. Reviewed, dictated and finalized at location M. UET STEWARDESS Impression: Enthesopathic change versus loose body near the lateral epicondyle. No acute fracture or dislocation seen.
== END 2023-08-25 09:28 | disposition home or self-care (01) ==
PROVIDERS: PCP Family Medicine; Visit Provider Physician Assistant Medical
DX: M25.521 Pain in right elbow (principal)
CPT/HCPCS: 73070

== ENCOUNTER 2023-09-05 14:52 | Inpatient (IN) | payer MEDICARE, SELFPAY ==
[2023-09-05] VITALS (7 sets, daily range): BP systolic 111–158; BP diastolic 63–84; PULSE 77–112; RESP 16–26; TEMP 36.8–37.8; O2SAT 87–98; BMI 44.3
--- NOTE | ~2023-09-05 | XR_ITS ---
EXAMINATION: XR chest 1V portable Exam Date/Time: 09/05/2023 15:34 MOLDER BENCH HISTORY: SOB Comparison: 12/02/2022. RESULT: Lines, tubes, and devices: None. Lungs and pleura: Mild diffuse interstitial opacities. Hazy groundglass opacity in the left midlung. Streaky bibasilar opacities. Left costophrenic angle blunting, unchanged. Cardiomediastinal silhouette: Stable. Other: No acute osseous or upper abdominal finding. IMPRESSION: Mild interstitial edema. Hazy groundglass opacity in the left midlung may represent infection or anjali a. Streaky bibasilar scar/atelectasis. Chronic left pleural blunting/small effusion. Reviewed, dictated and finalized at location K. ER BENCH IMPRESSION: Mild interstitial edema. Hazy groundglass opacity in the left midlung may repre sent infection or edema. Streaky bibasilar scar/atelectasis. Chronic left pleur al blunting/small effusion.
--- NOTE | ~2023-09-05 | CT_ITS ---
EXAMINATION: CT brain wo con DATE: 09/07/2023 09:42 INDICATION: History of subarachnoid bleed TECHNIQUE: Computed tomography (CT) of the head was performed without intravenous contrast. The mA wa s adjusted according to patient size. Iterative reconstruction technique was employed. Exam dose: 83 2.33 mGy-cm total exam DLP. COMPARISON: 07/27/2023 CT brain FINDINGS: No intracranial mass lesion or hemorrhage or cerebrovascular accident is detected. No subd ural or epidural hematoma. No midline shift or mass effect. Moderate cerebral volume loss. Intracranial calcified cerebral atherosclerosis. No fracture or bone destruction of the cranial vault. The paranasal sinuses and mastoid air cells are normally aerated. IMPRESSION: No intracranial hemorrhage is noted Reviewed, dictated and finalized at Location A. Reviewed, dictated and finalized at location B. ERN GATER
--- NOTE | ~2023-09-05 | US_ITS ---
EXAMINATION: US venous doppler LE LT DATE: 09/06/2023 16:51 INDICATION: Asymmetric swelling of LEs . TECHNIQUE: Grayscale images without and with compression and Doppler images of the left lower extremi ty veins were obtained. COMPARISON: 11/13/2021 FINDINGS: Dilated popliteal vein, with increased internal echogenicity, partial compressibility and flow are pr esent. The left common femoral vein, profunda (deep) femoral vein, femoral vein, peroneal vein, post erior tibial veins, gastrocnemius vein, and greater saphenous vein are patent. IMPRESSION: Likely acute on chronic left popliteal DVT. Reviewed, dictated and finalized at location K. EU THERAPIST
--- NOTE | 2023-09-05 15:05 | ECG_ITS ---
Measurements Intervals [place] Rate: 114 P: 75 SC: 208 QRS: 27 QRSD: 90 T: 60 QT: 311 QTc: 429 Interpretive Statements SINUS TACHYCARDIA Electronically Signed On 09-06-2023 11:33:48 ASSOCIATE DIRECTOR QA by Nas Song M.D.
--- NOTE | 2023-09-05 15:18 | ED.SOB ---
HPI - SOB/Dyspnea General Chief Complaint: Shortness of Breath/Dyspnea Stated Complaint: cough,weak,fatigue Time Seen by Provider: 09/05/23 15:11 History of Present Illness HPI Narrative: Patient is an 82-year-old male with history of COPD, DM, Recurrent DVT/PE s/p IVC filter, recent SAH, taken off of warfarin, HTN, afib, here with flu like symptoms x 1 day. EMS had been called to his house due to his dyspnea, they performed a duoneb and provided him with solumedrol en route given his respiratory status. Of note his was sick with COVID last week, she was not hospitalized however he believes she probably could have been, she is still recovering at this time. He denies any associated chest pain or leg swelling. No urinary symptoms. No diarrhea, nausea, abdominal pain. Related Data Home Medications Medication Instructions Recorded Confirmed flecainide 50 mg tablet 50 mg PO Q12H 06/21/19 08/04/23 docusate sodium 50 mg capsule 50 mg PO BID 06/14/20 08/04/23 loratadine 10 mg capsule 10 mg PO DAILY 06/14/20 08/04/23 lactobacillus combination no.9 4 4,000 mmu cells PO DAILY 11/07/21 08/04/23 billion cell capsule (Adult 50 Plus Probiotic) sennosides 8.6 mg-docusate sodium 1 tab-cap PO QHS 11/07/21 08/04/23 50 mg tablet Allergies Allergy/AdvReac Type Severity Reaction Status Date / Time No Known Allergies Allergy Verified 08/04/23 09:24 Review of Systems Review of Systems: All systems reviewed & are unremarkable except as noted in HPI and below PMFSH Past Medical History Medical History Acute exacerbation of chronic obstructive airways disease Ankle fracture, bimalleolar, closed Ankle syndesmosis disruption Atrial fibrillation BPH (benign prostatic hyperplasia) Chronic antibiotic suppression Chronic anticoagulation Constipation COPD (chronic obstructive pulmonary disease) Diabetes mellitus with neuropathy High cholesterol History of deep vein thrombosis (DVT) of lower extremity History of hemorrhoids History of pulmonary embolism Hypertension Hypothyroidism determined by thyroid function test Infection of spine Left ankle pain Osteomyelitis, chronic Pneumonia due to COVID-19 virus Recurrent deep vein thrombosis (DVT) Rotator cuff arthropathy of right shoulder Rupture of left Achilles tendon SOB (shortness of breath) Spleen absent Vision changes Weakness of both lower extremities Surgical History Surgical History H/O bilateral cataract extraction H/O colonoscopy with polypectomy H/O splenectomy H/O total knee replacement Bilaterally History of back surgery x2 ([facility]), x1 ([facility]) History of embolic filter insertion History of pancreatic surgery Removal of pancreatic mass ([facility]) Hx of hernia repair S/P rotator cuff repair Total knee replacement status Family History Family History Grandparent Diabetes mellitus Father Family history of cardiovascular disease Intracranial aneurysm Mother Dvt femoral (deep venous thrombosis) Sibling Throat cancer Sister Acute myocardial infarction Brother Social History Social History Social History: The patient lives with his it looks like he was in the past patient was smoking up to 3 packs of cigarettes a day. 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 He drinks occasionally denies any illicit drugs. He is listed as a DNR. Smoking packs per day: 3 Smoking cigarettes per day: 60.0 Years smoked: 20 Smoking pack-years: 60.00 Smoking status: Former smoker Tobacco type: cigarettes Second hand tobacco smoke exposure: No Smoking end date: 08/03/74 Alcohol intake: current Drinks per week: 2 Substance use: never Substance
[2023-09-05 15:45] LABS: Hematocrit 51.6 % (42.0-52.0); Hemoglobin 16.4 g/dL (14.0-18.0); Mean Corpuscular HGB Conc 31.8 g/dl (32-36); Mean Corpuscular Hemoglobin 27.9 pg (26-34); Mean Corpuscular Volume 87.8 fl (80-100); Mean Platelet Volume 10.4 fl (7.4-10.4); Platelet Count Result 254 k/mm3 (150-375); Red Blood Count 5.88 M/mm3 (4.6-6.20); Red Cell Distribution Width 18.5 % (11.5-14.5); White Blood Count 8.4 K/mm3 (4.5-10.0)
[2023-09-05] MEDS: ACETAMINOPHEN 500 MG TABLET 1000 MG PO (15:45)
[2023-09-05] MEDS: SODIUM CHLORIDE 0.9% IV 500 ML 999 ML IV CONT (15:46)
[2023-09-05 16:06] LABS: Alanine Aminotransferase 19 U/L (6-50); Albumin Level 3.3 g/dL (3.5-5.1); Alkaline Phosphatase 151 U/L (38-126); Anion Gap 4 mmol/L (8-16); Aspartate Amino Transferase 29 U/L (17-59); Bilirubin,Total 0.7 mg/dL (0.2-1.3); Blood Urea Nitrogen 18 mg/dL (9-20); Calcium 8.9 mg/dL (8.4-10.2); Carbon Dioxide 27 mmol/L (22-30); Chloride 105 mmol/L (98-107); Estimated CRCL calculation 70 ml/min; Estimated Glomerular Filt Rate 58; Glucose 199 mg/dL (65-110); Potassium 4.2 mmol/L (3.4-5.0); Sodium 136 mmol/L (137-145)
[2023-09-05 16:13] LABS: Band Neutrophils Percent 1 % (0-6); Eosinophils Absolute Manual 0.16 K/mm3 (0.02-0.5); Eosinophils Percent Manual 2 % (0-4); Lymphocytes Absolute Manual 0.42 K/mm3 (1.1-4.5); Monocytes Absolute Manual 0.67 K/mm3 (0.1-0.90); Monocytes Percent Manual 8 % (3-9); Neutrophils Absolute Manual 7.14 K/mm3 (1.3-6.7); Neutrophils Percent Manual 84 % (46-73); Platelet Estimate Adequate (Adequate); Total Cells Counted 100
[2023-09-05 16:14] LABS: Anisocytosis 2+ (NORMAL); Schistocytes None Seen (NORMAL)
[2023-09-05 16:18] LABS: NT Pro B Type Natriuretic Pept 544 pg/mL (19.9-100); Troponin I < 0.012 ng/mL (0.000-0.034)
[2023-09-05 16:22] LABS: Influenza A QL RT-PCR Positive (Negative); Influenza B QL RT-PCR Negative (Negative); RSV RNA, RT-PCR Negative (Negative); SARS-CoV-2 RNA PCR Positive (Negative)
[2023-09-05 17:45] LABS: Appearance Urine Clear (Clear); Bacteria Urine None Seen /hpf; Bilirubin Urine Negative (Negative); Blood Urine 2+ (Negative); Color Urine Yellow (Yellow); Glucose Urine UA 3+ mg/dL (Negative); Ketones Urine Negative (Negative); Leukocyte Esterase Ur Negative LEU/UL (Negative); Nitrate Urine Negative (Negative); Non Pathogenic Casts 0-2; Protein Urine Negative (Negative); RBC Urine 21-50 /hpf (0-2); Specific Grav Ur 1.024 (1.001-1.035); Squamous Epithelial Cell Urine None seen /hpf (Few); WBC Urine 0-5 /hpf
[2023-09-05 17:51] LABS: Add Urine Microscopic? YES
--- NOTE | 2023-09-05 18:15 | PM.IMHP ---
H&P: HPI History of Present Illness Date/Time: 09/05/23 18:15 Chief Complaint: SOB, Fever, Fatigue Narrative: 82 y/o M presents here with SOB, fatigue, and fever with PMH of recent SAH (taken off anticoagulation), COPD, AFib, DM, DVT/PE with IVC in place, hypothyroidism, HTN, total splenectomy, and has previously developed PNA secondary to COVID. Patient presented here with shortness of breath and dry cough. Symptoms began yesterday. Developed cough, fatigue, and fevers. tested positive for COVID last week. Patient states he came here today because his is sick and cannot currently take care of him. Reports compliance with his home inhalers. Did not take any Tylenol for the fever today or yesterday. Patient currently denies palpitations, chest pain, or pre-syncope/dizziness. Patient reports okay appetite. No N/V/D or abdominal pain. Initial VS: 100.1 F, Hr 112, RR 26, 158/84, 87% on RA. Placed on 2L with improvement to 97%. Workup showed no leukocytosis or anemia, elevated neutrophils, creatinine 1.2 with a GFR of 58, BNP 544, and UA not consistent with UTI. Patient tested positive for COVID and Flu. CXR showed mild interstitial edema. Hazy groundglass opacity in the left midlung may represent infection or edema. Streaky bibasilar scar/atelectasis. Chronic left pleural blunting/small effusion. EKG showed sinus tachycardia. Review of Systems Review of Systems: All systems reviewed & are unremarkable except as noted in HPI and below PMFSH Past Medical History Medical History Acute exacerbation of chronic obstructive airways disease Ankle fracture, bimalleolar, closed Ankle syndesmosis disruption Atrial fibrillation BPH (benign prostatic hyperplasia) Chronic antibiotic suppression Chronic anticoagulation Constipation COPD (chronic obstructive pulmonary disease) Diabetes mellitus with neuropathy High cholesterol History of deep vein thrombosis (DVT) of lower extremity History of hemorrhoids History of pulmonary embolism Hypertension Hypothyroidism determined by thyroid function test Infection of spine Left ankle pain Osteomyelitis, chronic Pneumonia due to COVID-19 virus Recurrent deep vein thrombosis (DVT) Rotator cuff arthropathy of right shoulder Rupture of left Achilles tendon SOB (shortness of breath) Spleen absent Vision changes Weakness of both lower extremities Surgical History Surgical History H/O bilateral cataract extraction H/O colonoscopy with polypectomy H/O splenectomy H/O total knee replacement Bilaterally History of back surgery x2 ([facility]), x1 ([facility]) History of embolic filter insertion History of pancreatic surgery Removal of pancreatic mass ([facility]) Hx of hernia repair S/P rotator cuff repair Total knee replacement status Family History Family History Grandparent Diabetes mellitus Father Family history of cardiovascular disease Intracranial aneurysm Mother Dvt femoral (deep venous thrombosis) Sibling Throat cancer Sister Acute myocardial infarction Brother Social History Social History Social History: The patient lives with his it looks like he was in the past patient was smoking up to 3 packs of cigarettes a day. He is retired from [employer]. He drinks occasionally denies any illicit drugs. He is listed as a DNR. Smoking packs per day: 3 Smoking cigarettes per day: 60.0 Years smoked: 12 Smoking pack-years: 36.00 Smoking status: Former smoker Tobacco type: cigarettes Second hand tobacco smoke exposure: No Smoking end date: 08/03/74 Alcohol intake: current Drinks per week: 2 Substance use: never Substance use type: does not use Do You Feel Safe in your Home
--- NOTE | 2023-09-05 18:18 | ECG_ITS ---
Measurements Intervals [place] Rate: 86 P: 74 MO: 223 QRS: 29 QRSD: 98 T: 57 QT: 355 QTc: 425 Interpretive Statements SINUS RHYTHM WITH FIRST DEGREE AV BLOCK Electronically Signed On 09-06-2023 11:34:42 [employer]OOKER MEAL by Nas Song M.D.
[2023-09-05 18:20] LABS: Lactic Acid Reflex 1.6 mmol/L (0.7-2.0)
[2023-09-05 18:23] LABS: CRP 2.2 mg/dL (<1.0)
[2023-09-05 18:32] LABS: Troponin I 0.017 ng/mL (0.000-0.034)
[2023-09-05] MEDS: OSELTAMIVIR PHOSPHATE 75 MG CAPSULE PO (18:40)
--- NOTE | 2023-09-05 18:50 | ADMGEN ---
This patient, Neal Amaro, was admitted to Medical Room 246-01. Patient/family oriented to hospital policies and general routines including ID bracelet, bed and alarms, visiting hours, pain management, procedures, bathroom and other care routines, personal items, smoking policy, room service/diet, and visiting hours. Information on how to activate the Rapid Response Team has been discussed. Patient/Family are encouraged to report perceived risks to care and to ask questions if they do not understand what they are told or what they should do.
[2023-09-05] MEDS: AZITHROMYCIN 500 MG/NS 250 ML 500 MG/250 ML BAG 250 MG IVPB (18:54)
[2023-09-05] MEDS: REMDESIVIR 200 MG/NS 250 ML 200 MG/250 ML BAG 250 MG IVPB (19:53)
[2023-09-05 20:44] LABS: Glucose Point of Care 264 mg/dl (65-105)
[2023-09-05] MEDS: INSULIN ASPART (*BKC) 100 UNITS/ML SUB-Q (20:45)
[2023-09-05 22:12] LABS: Troponin I < 0.012 ng/mL (0.000-0.034)
[2023-09-05] MEDS: oxyCODONE HCL (*CRX) 5 MG TAB IR PO (23:21)
[2023-09-05] MEDS: HEPARIN SODIUM 5,000 UNITS/ML VIAL 5000 UNITS SUB-Q (23:24)
[2023-09-06] VITALS (12 sets, daily range): BP systolic 134–156; BP diastolic 68–86; PULSE 65–106; RESP 16–30; TEMP 36.3–37.5; O2SAT 89–96
[2023-09-06] MEDS: LEVOTHYROXINE SODIUM 50 MCG TABLET PO (05:44)
[2023-09-06] MEDS: OSELTAMIVIR PHOSPHATE 75 MG CAPSULE PO ×2 (05:44→17:42)
[2023-09-06] MEDS: HEPARIN SODIUM 5,000 UNITS/ML VIAL 5000 UNITS SUB-Q ×2 (05:46→20:43)
[2023-09-06 06:05] LABS: Basophils Percent Auto 0.2 % (0.2-1.2); Hematocrit 48.2 % (42.0-52.0); Hemoglobin 15.3 g/dL (14.0-18.0); Immature Granulocyte Absolute 0.04 K/mm3 (0.00-0.031); Immature Granulocyte Percent A 0.9 % (0-0.5); Lymphocytes Absolute Auto 0.34 K/mm3 (0.9-3.2); Lymphocytes Percent Auto 7.3 % (18.3-44.2); Mean Corpuscular HGB Conc 31.7 g/dl (32-36); Mean Corpuscular Hemoglobin 27.5 pg (26-34); Mean Corpuscular Volume 86.7 fl (80-100); Mean Platelet Volume 11.3 fl (7.4-10.4); Monocytes Absolute Auto 0.4 K/mm3 (0.1-0.6); Monocytes Percent Auto 9.3 % (2.6-8.5); Neutrophils Absolute Auto 3.8 K/mm3 (1.3-6.7); Neutrophils Percent Auto 82.3 % (45.5-73.1); Platelet Count Result 243 k/mm3 (150-375); Red Blood Count 5.56 M/mm3 (4.6-6.20); Red Cell Distribution Width 17.9 % (11.5-14.5); White Blood Count 4.6 K/mm3 (4.5-10.0)
[2023-09-06 06:30] LABS: Alanine Aminotransferase 19 U/L (6-50); Alkaline Phosphatase 127 U/L (38-126); Anion Gap 8 mmol/L (8-16); Aspartate Amino Transferase 25 U/L (17-59); Bilirubin,Total 0.6 mg/dL (0.2-1.3); Blood Urea Nitrogen 21 mg/dL (9-20); Calcium 8.4 mg/dL (8.4-10.2); Carbon Dioxide 22 mmol/L (22-30); Chloride 107 mmol/L (98-107); Estimated CRCL calculation 75 ml/min; Estimated Glomerular Filt Rate > 60; Glucose 230 mg/dL (65-110); Sodium 137 mmol/L (137-145)
[2023-09-06 06:46] LABS: Potassium 4.3 mmol/L (3.4-5.0)
[2023-09-06 08:17] LABS: Glucose Point of Care 237 mg/dl (65-105)
[2023-09-06] MEDS: FLUTICASONE/UMECLIDIN/VILANTER 200-62.5-25 MCG ELLIPTA 1 PUFF INHALATION (08:18)
[2023-09-06] MEDS: INSULIN ASPART (*BKC) 100 UNITS/ML SUB-Q ×2 (09:42→21:50)
[2023-09-06] MEDS: FLECAINIDE ACETATE 50 MG TABLET PO ×2 (09:46→20:43)
[2023-09-06] MEDS: INSULIN ASPART (*BKC) 100 UNITS/ML 8 UNITS SUB-Q ×2 (09:46→12:45)
[2023-09-06] MEDS: METOPROLOL TARTRATE 12.5 MG TABLET PO ×2 (09:47→20:43)
[2023-09-06] MEDS: BACLOFEN 10 MG TABLET PO ×3 (09:47→17:42)
[2023-09-06] MEDS: PANTOPRAZOLE 40 MG TABLET PO (09:47)
[2023-09-06] MEDS: BENZONATATE 100 MG CAPSULE PO ×3 (09:47→17:42)
[2023-09-06] MEDS: ATORVASTATIN 20 MG TABLET PO (09:47)
[2023-09-06] MEDS: TAMSULOSIN HCL 0.4 MG CAPSULE 0.8 MG PO (09:47)
[2023-09-06] MEDS: DOCUSATE SODIUM LIQ 100 MG/10 ML UDC 50 MG PO ×2 (09:47→17:47)
[2023-09-06] MEDS: ACIDOPHILUS/BULGARICUS CHEWABLE TABLET 1 TABLET PO (09:47)
[2023-09-06] MEDS: EMPAGLIFLOZIN 10 MG TABLET PO (09:47)
[2023-09-06] MEDS: LORATADINE 10 MG TABLET PO (09:47)
[2023-09-06] MEDS: PREGABALIN (*CRX) 75 MG CAPSULE 150 MG PO ×3 (09:47→17:42)
[2023-09-06] MEDS: TRIAMCINOLONE ACET 0.1% CREAM 15 GM TUBE 1 APPLIC TOPICAL ×2 (09:48→17:51)
[2023-09-06] MEDS: DICLOFENAC SODIUM 1% 100 GM GEL (*BKC) 1 APPLIC TOPICAL (09:57)
[2023-09-06 12:21] LABS: Glucose Point of Care 179 mg/dl (65-105)
--- NOTE | 2023-09-06 13:36 | PM.IMPN ---
Progress Note: A&P Assessment and Plan (1) Acute hypoxic respiratory failure: Code(s): J96.01 - Acute respiratory failure with hypoxia Status: Acute Assessment and Plan: -87% on RA at arrival, currently requiring 2L NC to maintain above 92% - + for COVID and Flu, currently complicated by history of COPD -CXR: Mild interstitial edema. Hazy groundglass opacity in the left midlung may represent infection or edema. Streaky bibasilar scar/atelectasis. Chronic left pleural blunting/small effusion. -starting treatment for CAP -monitor O2 sat (2) Sepsis: Code(s): A41.9 - Sepsis, unspecified organism Status: Acute Assessment and Plan: -meets SIRS criteria: HR >90 and RR >20. No leukocytosis and temperature is 100.1 ?F -lactic acid 1.6 -blood cultures ordered -high suspicion for PNA given current hypoxia with +Flu and +COVID. Starting continue Azithromycin 500mg, IV q24 hr -continue Ceftriaxone. 1gm IV q 24 hr (3) COVID: Code(s): U07.1 - COVID-19 Status: Acute Assessment and Plan: -Symptom onset - 09/04/23 -tested positive for COVID on -09/05/23 -complicating comorbidities - COPD -CXR: Mild interstitial edema. Hazy groundglass opacity in the left midlung may represent infection or edema. Streaky bibasilar scar/atelectasis. Chronic left pleural blunting/small effusion. -CRP: 2.2 -start antiviral. arrived hypoxic. Remdesivir 200 mg IVPB x1 then 100 mg x4 for 5 total doses. dexamethasone 6 mg x10 days or until d/c. -Prophylactic: 5,000 units SQ bid or tid -Therapeutic: Bolus 5-10,000 units IVP followed by 1-2,000 units/hour IVPB to achieve heparin levels of 0.35-0.7 anti-Xa -patient has hx of previous PE and DVT, has IVC filter in place. Well's Criteria currently 3.0. suspicion for PE low due to current IVC in place. does have asymmetric edema (L worse than R). US of LLE ordered. -supportive care nebs - albuterol/atrovent Q6H PRN TYL prn for fever/pain lozenge prn tessalon perles scheduled -monitor VS/O2 -monitor daily labs (4) Influenza A: Code(s): J10.1 - Influenza due to other identified influenza virus with other respiratory manifestations Status: Acute Assessment and Plan: -tested + on 2/3 -symptom onset on 2/2 -started on Tamiflu -continue supportive care (see above) (5) Diabetes mellitus with neuropathy: Qualifiers: Diabetes mellitus type: type 2 Diabetes mellitus custodial insulin use: with custodial use Qualified Code(s): E11.40 - Type 2 diabetes mellitus with diabetic neuropathy, unspecified; Z79.4 - long term care phlebotomist (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 Code(s): E11.40 - Type 2 diabetes mellitus with diabetic neuropathy, unspecified Status: Acute Assessment and Plan: -Hypoglycemia protocol -POC blood glucose ACHS -home medications - on Lantus 44u HS, will increase to 48u based off 0.6 u/kg due to patient currently being on steroids. continue lispro -correct regimen ordered - high dose TIDWM and HS. BMI is 45.5 and patient will be on steroids. -A1C as 09/06/2023 is 8.0 (6) Hypertension: Qualifiers: Hypertension type: essential hypertension Qualified Code(s): I10 - Essential (primary) hypertension Code(s): I10 - Essential (primary) hypertension Status: Chronic Assessment and Plan: -chronic -BP has been ranging from 118/64 -> 158/84 -continue home medications: Metoprolol, flecainide, Plan Home Meds/Chronic Conditions -GERD: Continue home omeprazole -arthritis: Continue diclofenac gel, Lyrica, tramadol, baclofen, and oxycodone -held home is azelastine spray and doxycycline -continued all other home meds. Diet: heart healthy GI Prophylaxis: not indicated DVT Prophylaxis: heparin, hold on SCDs (US of LLE ordered) Lines: pIV Code Status: Full Code Subjective Date/time seen: 09/06/23 13:36 Interval history: 82 y/o M presents here with SOB, fatigue, and f
[2023-09-06] MEDS: LIDOCAINE 5% PATCH 1 PATCH TRANSDERM ×2 (15:49)
[2023-09-06 17:17] LABS: Glucose Point of Care 143 mg/dl (65-105)
[2023-09-06] MEDS: DOXYCYCLINE 100 MG/NS 100 ML 100 MG/100 ML BAG IVPB (17:44)
[2023-09-06] MEDS: REMDESIVIR 100 MG/NS 250 ML 100 MG/250 ML BAG 250 MG IVPB (20:25)
[2023-09-06] MEDS: oxyCODONE HCL (*CRX) 5 MG TAB IR PO (20:43)
[2023-09-06] MEDS: SENNA/DOCUSATE SODIUM TABLET 1 TAB PO (20:43)
[2023-09-06 21:23] LABS: Glucose Point of Care 301 mg/dl (65-105)
[2023-09-06] MEDS: INSULIN GLARGINE (*BKC) 100 UNITS/ML 48 UNITS SUB-Q (21:50)
[2023-09-07] VITALS (14 sets, daily range): BP systolic 101–157; BP diastolic 47–85; PULSE 56–96; RESP 16–20; TEMP 36–36.8; O2SAT 94–97
[2023-09-07 04:53] LABS: Basophils Percent Auto 0.2 % (0.2-1.2); Eosinophils Percent Auto 0.2 % (0-4.4); Hematocrit 49.1 % (42.0-52.0); Hemoglobin 16.1 g/dL (14.0-18.0); Immature Granulocyte Absolute 0.04 K/mm3 (0.00-0.031); Immature Granulocyte Percent A 0.8 % (0-0.5); Lymphocytes Absolute Auto 0.75 K/mm3 (0.9-3.2); Lymphocytes Percent Auto 14.1 % (18.3-44.2); Mean Corpuscular HGB Conc 32.8 g/dl (32-36); Mean Corpuscular Hemoglobin 28.2 pg (26-34); Mean Platelet Volume 10.8 fl (7.4-10.4); Monocytes Percent Auto 17.9 % (2.6-8.5); Neutrophils Absolute Auto 3.6 K/mm3 (1.3-6.7); Neutrophils Percent Auto 66.8 % (45.5-73.1); Platelet Count Result 267 k/mm3 (150-375); Red Blood Count 5.71 M/mm3 (4.6-6.20); Red Cell Distribution Width 18.2 % (11.5-14.5); White Blood Count 5.3 K/mm3 (4.5-10.0)
[2023-09-07 05:04] LABS: INR 1.1
[2023-09-07 05:18] LABS: Alanine Aminotransferase 25 U/L (6-50); Albumin Level 3.3 g/dL (3.5-5.1); Alkaline Phosphatase 118 U/L (38-126); Aspartate Amino Transferase 37 U/L (17-59); Bilirubin,Total 0.4 mg/dL (0.2-1.3)
[2023-09-07] MEDS: OSELTAMIVIR PHOSPHATE 75 MG CAPSULE PO ×2 (05:35→17:22)
[2023-09-07] MEDS: LEVOTHYROXINE SODIUM 50 MCG TABLET PO (05:35)
[2023-09-07] MEDS: DOXYCYCLINE 100 MG/NS 100 ML 100 MG/100 ML BAG IVPB ×2 (05:35→17:53)
[2023-09-07] MEDS: FLUTICASONE/UMECLIDIN/VILANTER 200-62.5-25 MCG ELLIPTA 1 PUFF INHALATION (07:25)
[2023-09-07 08:35] LABS: Glucose Point of Care 176 mg/dl (65-105)
[2023-09-07] MEDS: INSULIN ASPART (*BKC) 100 UNITS/ML 8 UNITS SUB-Q ×3 (08:49→17:00)
[2023-09-07] MEDS: PREGABALIN (*CRX) 75 MG CAPSULE 150 MG PO ×3 (08:52→16:38)
[2023-09-07] MEDS: ATORVASTATIN 20 MG TABLET PO (08:52)
[2023-09-07] MEDS: LORATADINE 10 MG TABLET PO (08:52)
[2023-09-07] MEDS: EMPAGLIFLOZIN 10 MG TABLET PO (08:52)
[2023-09-07] MEDS: BACLOFEN 10 MG TABLET PO ×3 (08:52→16:38)
[2023-09-07] MEDS: BENZONATATE 100 MG CAPSULE PO ×3 (08:52→16:38)
[2023-09-07] MEDS: ACIDOPHILUS/BULGARICUS CHEWABLE TABLET 1 TABLET PO (08:52)
[2023-09-07] MEDS: PANTOPRAZOLE 40 MG TABLET PO (08:52)
[2023-09-07] MEDS: TAMSULOSIN HCL 0.4 MG CAPSULE 0.8 MG PO (08:52)
[2023-09-07] MEDS: FLECAINIDE ACETATE 50 MG TABLET PO ×2 (08:53→21:57)
[2023-09-07] MEDS: METOPROLOL TARTRATE 12.5 MG TABLET PO ×2 (08:53→21:59)
[2023-09-07] MEDS: HEPARIN SODIUM 5,000 UNITS/ML VIAL 5000 UNITS SUB-Q ×2 (08:59→21:57)
[2023-09-07] MEDS: LIDOCAINE 5% PATCH 1 PATCH TRANSDERM ×2 (08:59→09:00)
[2023-09-07] MEDS: DOCUSATE SODIUM LIQ 100 MG/10 ML UDC 50 MG PO (09:00)
[2023-09-07] MEDS: TRIAMCINOLONE ACET 0.1% CREAM 15 GM TUBE 1 APPLIC TOPICAL ×2 (09:02→16:39)
[2023-09-07 12:06] LABS: Glucose Point of Care 145 mg/dl (65-105)
[2023-09-07 17:05] LABS: Glucose Point of Care 167 mg/dl (65-105)
--- NOTE | 2023-09-07 17:25 | PM.IMPN ---
Progress Note: A&P Assessment and Plan (1) Acute hypoxic respiratory failure: Code(s): J96.01 - Acute respiratory failure with hypoxia Status: Acute Assessment and Plan: requiring 2L NC to maintain above 92% - + for COVID and Flu, currently complicated by history of COPD -CXR: Mild interstitial edema. Hazy groundglass opacity in the left midlung may represent infection or edema. Streaky bibasilar scar/atelectasis. Chronic left pleural blunting/small effusion. -starting treatment for CAP - continue monitor O2 sat (2) Sepsis: Code(s): A41.9 - Sepsis, unspecified organism Status: Acute Assessment and Plan: -meets SIRS criteria: HR >90 and RR >20. No leukocytosis and temperature is 100.1 ?F -lactic acid 1.6 -blood cultures ordered -high suspicion for PNA given current hypoxia with +Flu and +COVID. Starting continue Azithromycin 500mg, IV q24 hr -continue Ceftriaxone. 1gm IV q 24 hr (3) COVID: Code(s): U07.1 - COVID-19 Status: Acute Assessment and Plan: -Symptom onset - 09/04/23 -tested positive for COVID on -09/05/23 -complicating comorbidities - COPD -CXR: Mild interstitial edema. Hazy groundglass opacity in the left midlung may represent infection or edema. Streaky bibasilar scar/atelectasis. Chronic left pleural blunting/small effusion. -CRP: 2.2 -start antiviral. arrived hypoxic. continue Remdesivir 200 mg IVPB, 1/4 bags given as of today dexamethasone 6 mg 3/6 doses given nebs - albuterol/atrovent Q6H PRN TYL prn for fever/pain lozenge prn tessalon perles scheduled -monitor VS/O2 -monitor daily labs (4) Influenza A: Code(s): J10.1 - Influenza due to other identified influenza virus with other respiratory manifestations Status: Acute Assessment and Plan: -tested + on 09/05 -symptom onset on 09/04 -continue Tamiflu -continue supportive care (see above) (5) Diabetes mellitus with neuropathy: Qualifiers: Diabetes mellitus type: type 2 Diabetes mellitus hatchery man insulin use: with hatchery man use Qualified Code(s): E11.40 - Type 2 diabetes mellitus with diabetic neuropathy, unspecified; Z79.4 - detention (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 Code(s): E11.40 - Type 2 diabetes mellitus with diabetic neuropathy, unspecified Status: Acute Assessment and Plan: -Hypoglycemia protocol -POC blood glucose ACHS -home medications - on Lantus 44u HS, will increase to 48u based off 0.6 u/kg due to patient currently being on steroids. continue lispro -correct regimen ordered - high dose TIDWM and HS. BMI is 45.5 and patient will be on steroids. -A1C as 09/06/2023 is 8.0 (6) Hypertension: Qualifiers: Hypertension type: essential hypertension Qualified Code(s): I10 - Essential (primary) hypertension Code(s): I10 - Essential (primary) hypertension Status: Chronic Assessment and Plan: -chronic -continue home medications: Metoprolol, flecainide, (7) Chronic deep vein thrombosis (DVT): Code(s): I82.509 - Chronic embolism and thrombosis of unspecified deep veins of unspecified lower extremity Status: Acute Assessment and Plan: -patient has hx of previous PE and DVT, has IVC filter in place. Well's Criteria currently 3.0. suspicion for PE low due to current IVC in place. does have asymmetric edema (L worse than R). US of LLE ordered. Venous Doppler reveals: IMPRESSION: Likely acute on chronic left popliteal DVT. Head CT reveals IMPRESSION:? No intracranial hemorrhage is noted -patient has IVC filter in place, anticoagulation high risk due to history of subarachnoid hemorrhage, I am going to keep patient on heparin subQ for DVT prophylaxis/worsening clot burden Plan Home Meds/Chronic Conditions -GERD: Continue home omeprazole -arthritis: Continue diclofenac gel, Lyrica, tramadol, baclofen, and oxycodone Diet: heart healthy GI Prophylaxis: not indicated DV
[2023-09-07 21:03] LABS: Glucose Point of Care 259 mg/dl (65-105)
[2023-09-07] MEDS: INSULIN GLARGINE (*BKC) 100 UNITS/ML 48 UNITS SUB-Q (21:58)
[2023-09-07] MEDS: SENNA/DOCUSATE SODIUM TABLET 1 TAB PO (21:58)
[2023-09-07] MEDS: INSULIN ASPART (*BKC) 100 UNITS/ML SUB-Q (21:58)
[2023-09-07] MEDS: REMDESIVIR 100 MG/NS 250 ML 100 MG/250 ML BAG 250 MG IVPB (21:59)
[2023-09-08] VITALS (12 sets, daily range): BP systolic 136–170; BP diastolic 68–89; PULSE 50–61; RESP 16–20; TEMP 35.8–36.6; O2SAT 92–99
[2023-09-08] MEDS: LEVOTHYROXINE SODIUM 50 MCG TABLET PO (05:12)
[2023-09-08] MEDS: DOXYCYCLINE 100 MG/NS 100 ML 100 MG/100 ML BAG IVPB ×2 (05:12→18:30)
[2023-09-08] MEDS: OSELTAMIVIR PHOSPHATE 75 MG CAPSULE PO ×2 (05:12→17:54)
[2023-09-08 05:41] LABS: Basophils Percent Auto 0.3 % (0.2-1.2); Hematocrit 49.7 % (42.0-52.0); Hemoglobin 15.7 g/dL (14.0-18.0); Immature Granulocyte Absolute 0.03 K/mm3 (0.00-0.031); Immature Granulocyte Percent A 0.8 % (0-0.5); Lymphocytes Absolute Auto 0.71 K/mm3 (0.9-3.2); Lymphocytes Percent Auto 19.8 % (18.3-44.2); Mean Corpuscular HGB Conc 31.6 g/dl (32-36); Mean Corpuscular Hemoglobin 27.7 pg (26-34); Mean Corpuscular Volume 87.8 fl (80-100); Mean Platelet Volume 11.1 fl (7.4-10.4); Monocytes Absolute Auto 0.7 K/mm3 (0.1-0.6); Monocytes Percent Auto 18.2 % (2.6-8.5); Neutrophils Absolute Auto 2.2 K/mm3 (1.3-6.7); Neutrophils Percent Auto 60.9 % (45.5-73.1); Platelet Count Result 250 k/mm3 (150-375); Red Blood Count 5.66 M/mm3 (4.6-6.20); Red Cell Distribution Width 18.4 % (11.5-14.5); White Blood Count 3.6 K/mm3 (4.5-10.0)
[2023-09-08 08:10] LABS: Glucose Point of Care 140 mg/dl (65-105)
--- NOTE | 2023-09-08 08:59 | P.CDI_ITS ---
CDI Query Clarification Request Documentation in the medial record indicates that this patient has: BMI 44.3 Based on your medical judgement ,can you further clarify in the progress notes, if known, the diagnosis associated with these findings such as: * Overweight * Obesity * Morbid Obesity * Other condition (please specify) * None of the above/Not applicable <Letty Lopez RN - Last Filed: 09/08/23 09:02> Clarified Diagnosis Clarified Diagnosis: - BMI 44.3, morbid obesity <Fani Haney APRN - Last Filed: 09/08/23 09:12>
--- NOTE | 2023-09-08 09:19 | PM.IMPN ---
Progress Note: A&P Assessment and Plan (1) Acute hypoxic respiratory failure: Code(s): J96.01 - Acute respiratory failure with hypoxia Status: Acute Assessment and Plan: requiring 2L NC to maintain above 92% - + for COVID and Flu, currently complicated by history of COPD -CXR: Mild interstitial edema. Hazy groundglass opacity in the left midlung may represent infection or edema. Streaky bibasilar scar/atelectasis. Chronic left pleural blunting/small effusion. -starting treatment for CAP - continue monitor O2 sat (2) Sepsis: Code(s): A41.9 - Sepsis, unspecified organism Status: Acute Assessment and Plan: -meets SIRS criteria: HR >90 and RR >20. No leukocytosis and temperature is 100.1 ?F -lactic acid 1.6 -blood cultures ordered -high suspicion for PNA given current hypoxia with +Flu and +COVID. Starting continue Azithromycin 500mg, IV q24 hr -continue Ceftriaxone. 1gm IV q 24 hr (3) COVID: Code(s): U07.1 - COVID-19 Status: Acute Assessment and Plan: -Symptom onset - 09/04/23 -tested positive for COVID on -09/05/23 -complicating comorbidities - COPD -CXR: Mild interstitial edema. Hazy groundglass opacity in the left midlung may represent infection or edema. Streaky bibasilar scar/atelectasis. Chronic left pleural blunting/small effusion. -CRP: 2.2 -start antiviral. arrived hypoxic. continue Remdesivir 200 mg IVPB, 2/4 bags given as of today dexamethasone 6 mg 4/6 doses given nebs - albuterol/atrovent Q6H PRN TYL prn for fever/pain lozenge prn tessalon perles scheduled -monitor VS/O2 -monitor daily labs (4) Influenza A: Code(s): J10.1 - Influenza due to other identified influenza virus with other respiratory manifestations Status: Acute Assessment and Plan: -tested + on 09/05 -symptom onset on 09/04 -continue Tamiflu -continue supportive care (see above) (5) Diabetes mellitus with neuropathy: Qualifiers: Diabetes mellitus type: type 2 Diabetes mellitus welfare eligibility interviewer insulin use: with welfare eligibility interviewer use Qualified Code(s): E11.40 - Type 2 diabetes mellitus with diabetic neuropathy, unspecified; Z79.4 - [facility] (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 Code(s): E11.40 - Type 2 diabetes mellitus with diabetic neuropathy, unspecified Status: Acute Assessment and Plan: -Hypoglycemia protocol -POC blood glucose ACHS -home medications - on Lantus 44u HS, will increase to 48u based off 0.6 u/kg due to patient currently being on steroids. continue lispro -correct regimen ordered - high dose TIDWM and HS. BMI is 45.5 and patient will be on steroids. -A1C as 09/06/2023 is 8.0 (6) Hypertension: Qualifiers: Hypertension type: essential hypertension Qualified Code(s): I10 - Essential (primary) hypertension Code(s): I10 - Essential (primary) hypertension Status: Chronic Assessment and Plan: -chronic -continue home medications: Metoprolol, flecainide, (7) Chronic deep vein thrombosis (DVT): Code(s): I82.509 - Chronic embolism and thrombosis of unspecified deep veins of unspecified lower extremity Status: Acute Assessment and Plan: -patient has hx of previous PE and DVT, has IVC filter in place. Well's Criteria currently 3.0. suspicion for PE low due to current IVC in place. does have asymmetric edema (L worse than R). US of LLE ordered. Venous Doppler reveals: IMPRESSION: Likely acute on chronic left popliteal DVT. Head CT reveals IMPRESSION:? No intracranial hemorrhage is noted -patient has IVC filter in place, anticoagulation high risk due to history of subarachnoid hemorrhage, I am going to keep patient on heparin subQ for DVT prophylaxis/worsening clot burden Plan Home Meds/Chronic Conditions -GERD: Continue home omeprazole -arthritis: Continue diclofenac gel, Lyrica, tramadol, baclofen, and oxycodone Diet: heart healthy GI Prophylaxis: not indicated DV
[2023-09-08] MEDS: INSULIN ASPART (*BKC) 100 UNITS/ML 8 UNITS SUB-Q ×3 (09:40→17:45)
[2023-09-08] MEDS: HEPARIN SODIUM 5,000 UNITS/ML VIAL 5000 UNITS SUB-Q ×2 (09:40→21:09)
[2023-09-08] MEDS: PANTOPRAZOLE 40 MG TABLET PO (09:57)
[2023-09-08] MEDS: BENZONATATE 100 MG CAPSULE PO ×3 (09:57→17:47)
[2023-09-08] MEDS: ATORVASTATIN 20 MG TABLET PO (09:57)
[2023-09-08] MEDS: TAMSULOSIN HCL 0.4 MG CAPSULE 0.8 MG PO (09:57)
[2023-09-08] MEDS: PREGABALIN (*CRX) 75 MG CAPSULE 150 MG PO ×3 (09:57→17:47)
[2023-09-08] MEDS: BACLOFEN 10 MG TABLET PO ×3 (09:57→17:47)
[2023-09-08] MEDS: METOPROLOL TARTRATE 12.5 MG TABLET PO ×2 (09:57→21:08)
[2023-09-08] MEDS: FLECAINIDE ACETATE 50 MG TABLET PO ×2 (09:57→21:09)
[2023-09-08] MEDS: ACIDOPHILUS/BULGARICUS CHEWABLE TABLET 1 TABLET PO (09:57)
[2023-09-08] MEDS: LIDOCAINE 5% PATCH 1 PATCH TRANSDERM ×2 (09:58→09:59)
[2023-09-08] MEDS: EMPAGLIFLOZIN 10 MG TABLET PO (09:58)
[2023-09-08] MEDS: LORATADINE 10 MG TABLET PO (09:59)
[2023-09-08] MEDS: TRIAMCINOLONE ACET 0.1% CREAM 15 GM TUBE 1 APPLIC TOPICAL ×2 (09:59→17:48)
[2023-09-08] MEDS: DOCUSATE SODIUM LIQ 100 MG/10 ML UDC 50 MG PO ×2 (09:59→17:47)
[2023-09-08] MEDS: FLUTICASONE/UMECLIDIN/VILANTER 200-62.5-25 MCG ELLIPTA 1 PUFF INHALATION (10:02)
[2023-09-08 10:07] LABS: Alanine Aminotransferase 31 U/L (6-50); Albumin Level 2.8 g/dL (3.5-5.1); Alkaline Phosphatase 103 U/L (38-126); Anion Gap 4 mmol/L (8-16); Aspartate Amino Transferase 53 U/L (17-59); Bilirubin,Total 0.4 mg/dL (0.2-1.3); Blood Urea Nitrogen 28 mg/dL (9-20); Calcium 8.4 mg/dL (8.4-10.2); Carbon Dioxide 25 mmol/L (22-30); Chloride 108 mmol/L (98-107); Estimated CRCL calculation 82 ml/min; Estimated Glomerular Filt Rate > 60; Glucose 171 mg/dL (65-110); Potassium 4.5 mmol/L (3.4-5.0); Sodium 137 mmol/L (137-145)
[2023-09-08 12:19] LABS: Glucose Point of Care 203 mg/dl (65-105)
[2023-09-08] MEDS: INSULIN ASPART (*BKC) 100 UNITS/ML SUB-Q (12:38)
[2023-09-08 17:26] LABS: Glucose Point of Care 179 mg/dl (65-105)
[2023-09-08 20:35] LABS: Glucose Point of Care 168 mg/dl (65-105)
[2023-09-08] MEDS: INSULIN GLARGINE (*BKC) 100 UNITS/ML 48 UNITS SUB-Q (21:09)
[2023-09-08] MEDS: SENNA/DOCUSATE SODIUM TABLET 1 TAB PO (21:09)
[2023-09-08] MEDS: REMDESIVIR 100 MG/NS 250 ML 100 MG/250 ML BAG 150 MG IVPB (21:15)
[2023-09-09] VITALS (17 sets, daily range): BP systolic 130–145; BP diastolic 59–74; PULSE 51–63; RESP 16–18; TEMP 36.8–37.1; O2SAT 91–98
[2023-09-09] MEDS: IPRATROPIUM 0.5 MG/ALBUTEROL SULFATE 2.5 MG AMPUL.NEB 3 ML INHALATION (00:49)
[2023-09-09] MEDS: LEVOTHYROXINE SODIUM 50 MCG TABLET PO (05:26)
[2023-09-09] MEDS: OSELTAMIVIR PHOSPHATE 75 MG CAPSULE PO ×2 (05:26→17:28)
[2023-09-09] MEDS: DOXYCYCLINE 100 MG/NS 100 ML 100 MG/100 ML BAG 75 MG IVPB (05:27)
[2023-09-09 05:39] LABS: Basophils Percent Auto 0.3 % (0.2-1.2); Eosinophils Percent Auto 0.3 % (0-4.4); Hematocrit 48.3 % (42.0-52.0); Hemoglobin 15.7 g/dL (14.0-18.0); Immature Granulocyte Absolute 0.03 K/mm3 (0.00-0.031); Immature Granulocyte Percent A 0.8 % (0-0.5); Lymphocytes Absolute Auto 0.65 K/mm3 (0.9-3.2); Lymphocytes Percent Auto 17.2 % (18.3-44.2); Mean Corpuscular HGB Conc 32.5 g/dl (32-36); Mean Corpuscular Hemoglobin 28.1 pg (26-34); Mean Corpuscular Volume 86.6 fl (80-100); Mean Platelet Volume 10.9 fl (7.4-10.4); Monocytes Absolute Auto 0.6 K/mm3 (0.1-0.6); Monocytes Percent Auto 15.3 % (2.6-8.5); Neutrophils Absolute Auto 2.5 K/mm3 (1.3-6.7); Neutrophils Percent Auto 66.1 % (45.5-73.1); Platelet Count Result 234 k/mm3 (150-375); Red Blood Count 5.58 M/mm3 (4.6-6.20); Red Cell Distribution Width 17.8 % (11.5-14.5); White Blood Count 3.8 K/mm3 (4.5-10.0)
[2023-09-09 05:48] LABS: INR 1.1; Prothrombin Time 14.4 Seconds (11.1-14.7)
[2023-09-09 05:56] LABS: Alanine Aminotransferase 34 U/L (6-50); Alkaline Phosphatase 109 U/L (38-126); Aspartate Amino Transferase 41 U/L (17-59); Bilirubin,Total 0.5 mg/dL (0.2-1.3)
[2023-09-09] MEDS: FLUTICASONE/UMECLIDIN/VILANTER 200-62.5-25 MCG ELLIPTA 1 PUFF INHALATION (08:03)
[2023-09-09 09:08] LABS: Glucose Point of Care 138 mg/dl (65-105)
[2023-09-09] MEDS: FLECAINIDE ACETATE 50 MG TABLET PO ×2 (10:01→21:07)
[2023-09-09] MEDS: PANTOPRAZOLE 40 MG TABLET PO (10:01)
[2023-09-09] MEDS: TAMSULOSIN HCL 0.4 MG CAPSULE 0.8 MG PO (10:01)
[2023-09-09] MEDS: LIDOCAINE 5% PATCH 1 PATCH TRANSDERM ×2 (10:01)
[2023-09-09] MEDS: BACLOFEN 10 MG TABLET PO ×3 (10:02→17:28)
[2023-09-09] MEDS: DOCUSATE SODIUM LIQ 100 MG/10 ML UDC 50 MG PO (10:02)
[2023-09-09] MEDS: BENZONATATE 100 MG CAPSULE PO ×3 (10:02→17:28)
[2023-09-09] MEDS: PREGABALIN (*CRX) 75 MG CAPSULE 150 MG PO ×3 (10:02→17:28)
[2023-09-09] MEDS: METOPROLOL TARTRATE 12.5 MG TABLET PO ×2 (10:02→21:06)
[2023-09-09] MEDS: LORATADINE 10 MG TABLET PO (10:02)
[2023-09-09] MEDS: ATORVASTATIN 20 MG TABLET PO (10:02)
[2023-09-09] MEDS: EMPAGLIFLOZIN 10 MG TABLET PO (10:02)
[2023-09-09] MEDS: ACIDOPHILUS/BULGARICUS CHEWABLE TABLET 1 TABLET PO (10:03)
[2023-09-09] MEDS: HEPARIN SODIUM 5,000 UNITS/ML VIAL 5000 UNITS SUB-Q ×2 (10:03→21:06)
[2023-09-09] MEDS: INSULIN ASPART (*BKC) 100 UNITS/ML 8 UNITS SUB-Q ×3 (10:03→17:32)
--- NOTE | 2023-09-09 11:51 | PM.IMPN ---
Progress Note: A&P Assessment and Plan (1) Acute hypoxic respiratory failure: Code(s): J96.01 - Acute respiratory failure with hypoxia Status: Acute Assessment and Plan: 2 L nasal cannula has been weaned off. Resolved. - + for COVID and Flu, currently complicated by history of COPD -CXR: Mild interstitial edema. Hazy groundglass opacity in the left midlung may represent infection or edema. Streaky bibasilar scar/atelectasis. Chronic left pleural blunting/small effusion. -starting treatment for CAP. Five days will be completed on 09/10/2023. Can discontinue after that. - continue monitor O2 sat (2) Sepsis: Code(s): A41.9 - Sepsis, unspecified organism Status: Acute Assessment and Plan: -meets SIRS criteria: HR >90 and RR >20. No leukocytosis and temperature is 100.1 ?F -lactic acid 1.6 -blood cultures ordered -high suspicion for PNA given current hypoxia with +Flu and +COVID. Starting continue Azithromycin 500mg, IV q24 hr -continue Ceftriaxone. 1gm IV q 24 hr (3) COVID: Code(s): U07.1 - COVID-19 Status: Acute Assessment and Plan: -Symptom onset - 09/04/23 -tested positive for COVID on -09/05/23 -complicating comorbidities - COPD -CXR: Mild interstitial edema. Hazy groundglass opacity in the left midlung may represent infection or edema. Streaky bibasilar scar/atelectasis. Chronic left pleural blunting/small effusion. -CRP: 2.2 -start antiviral. arrived hypoxic. continue Remdesivir 200 mg IVPB dexamethasone 6 mg nebs - albuterol/atrovent Q6H PRN TYL prn for fever/pain lozenge prn tessalon perles scheduled -monitor VS/O2 -monitor daily labs (4) Influenza A: Code(s): J10.1 - Influenza due to other identified influenza virus with other respiratory manifestations Status: Acute Assessment and Plan: -tested + on 09/05 -symptom onset on 09/04 -continue Tamiflu -continue supportive care (see above) (5) Diabetes mellitus with neuropathy: Qualifiers: Diabetes mellitus type: type 2 Diabetes mellitus intermodal customer service insulin use: with intermodal customer service use Qualified Code(s): E11.40 - Type 2 diabetes mellitus with diabetic neuropathy, unspecified; Z79.4 - group home (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 Code(s): E11.40 - Type 2 diabetes mellitus with diabetic neuropathy, unspecified Status: Acute Assessment and Plan: -Hypoglycemia protocol -POC blood glucose ACHS -home medications - on Lantus 44u HS, will increase to 48u based off 0.6 u/kg due to patient currently being on steroids. continue lispro -correct regimen ordered - high dose TIDWM and HS. BMI is 45.5 and patient will be on steroids. -A1C as 09/06/2023 is 8.0 (6) Hypertension: Qualifiers: Hypertension type: essential hypertension Qualified Code(s): I10 - Essential (primary) hypertension Code(s): I10 - Essential (primary) hypertension Status: Chronic Assessment and Plan: -chronic -continue home medications: Metoprolol, flecainide (7) Chronic deep vein thrombosis (DVT): Code(s): I82.509 - Chronic embolism and thrombosis of unspecified deep veins of unspecified lower extremity Status: Acute Assessment and Plan: -patient has hx of previous PE and DVT, has IVC filter in place. Well's Criteria currently 3.0. suspicion for PE low due to current IVC in place. does have asymmetric edema (L worse than R). US of LLE ordered. Venous Doppler reveals: IMPRESSION: Likely acute on chronic left popliteal DVT. Head CT reveals IMPRESSION:? No intracranial hemorrhage is noted -patient has IVC filter in place, anticoagulation high risk due to history of subarachnoid hemorrhage, I am going to keep patient on heparin subQ for DVT prophylaxis/worsening clot burden Plan Home Meds/Chronic Conditions -GERD: Continue home omeprazole -arthritis: Continue diclofenac gel, Lyrica, tramadol, baclofen, and oxycodone Diet: heart heal
[2023-09-09 12:58] LABS: Glucose Point of Care 264 mg/dl (65-105)
[2023-09-09] MEDS: INSULIN ASPART (*BKC) 100 UNITS/ML SUB-Q (13:00)
[2023-09-09 17:26] LABS: Glucose Point of Care 138 mg/dl (65-105)
[2023-09-09] MEDS: TRIAMCINOLONE ACET 0.1% CREAM 15 GM TUBE 1 APPLIC TOPICAL (17:29)
[2023-09-09] MEDS: DOXYCYCLINE HYCLATE 100 MG TABLET PO (21:07)
[2023-09-09] MEDS: SENNA/DOCUSATE SODIUM TABLET 1 TAB PO (21:07)
[2023-09-09] MEDS: INSULIN GLARGINE (*BKC) 100 UNITS/ML 48 UNITS SUB-Q (21:08)
[2023-09-09] MEDS: REMDESIVIR 100 MG/NS 250 ML 100 MG/250 ML BAG 150 MG IVPB (21:12)
[2023-09-09 21:21] LABS: Glucose Point of Care 165 mg/dl (65-105)
[2023-09-10] VITALS: PULSE 55
[2023-09-10 04:00] VITALS: PULSE 49
[2023-09-10 05:53] VITALS: BP 161/88; PULSE 54; RESP 16; TEMP 36.6; O2SAT 95
[2023-09-10] MEDS: OSELTAMIVIR PHOSPHATE 75 MG CAPSULE PO (06:00)
[2023-09-10] MEDS: LEVOTHYROXINE SODIUM 50 MCG TABLET PO (06:00)
[2023-09-10 06:18] LABS: Basophils Percent Auto 0.4 % (0.2-1.2); Hematocrit 48.6 % (42.0-52.0); Hemoglobin 16.1 g/dL (14.0-18.0); Immature Granulocyte Absolute 0.07 K/mm3 (0.00-0.031); Immature Granulocyte Percent A 1.5 % (0-0.5); Lymphocytes Absolute Auto 0.96 K/mm3 (0.9-3.2); Lymphocytes Percent Auto 20.3 % (18.3-44.2); Mean Corpuscular HGB Conc 33.1 g/dl (32-36); Mean Corpuscular Hemoglobin 28.3 pg (26-34); Mean Corpuscular Volume 85.4 fl (80-100); Mean Platelet Volume 11.3 fl (7.4-10.4); Monocytes Absolute Auto 0.7 K/mm3 (0.1-0.6); Monocytes Percent Auto 15.3 % (2.6-8.5); Neutrophils Percent Auto 62.5 % (45.5-73.1); Platelet Count Result 223 k/mm3 (150-375); Red Blood Count 5.69 M/mm3 (4.6-6.20); Red Cell Distribution Width 18.1 % (11.5-14.5); White Blood Count 4.7 K/mm3 (4.5-10.0)
[2023-09-10 06:33] LABS: Anion Gap 6 mmol/L (8-16); Blood Urea Nitrogen 22 mg/dL (9-20); Calcium 8.4 mg/dL (8.4-10.2); Carbon Dioxide 23 mmol/L (22-30); Chloride 107 mmol/L (98-107); Estimated CRCL calculation 82 ml/min; Estimated Glomerular Filt Rate > 60; Glucose 162 mg/dL (65-110); Magnesium 2.2 mg/dL (1.6-2.3); Sodium 136 mmol/L (137-145)
[2023-09-10 08:00] VITALS: PULSE 59
[2023-09-10] MEDS: FLUTICASONE/UMECLIDIN/VILANTER 200-62.5-25 MCG ELLIPTA 1 PUFF INHALATION (08:00)
[2023-09-10 08:13] LABS: Glucose Point of Care 184 mg/dl (65-105)
--- NOTE | 2023-09-10 10:20 | PM.DS ---
DS: Admitting Diagnosis Discharge Date September 10, 2023 Admitting Diagnosis Shortness of breath DS: Discharge Diagnosis Discharge Diagnosis (1) Acute hypoxic respiratory failure: Code(s): J96.01 - Acute respiratory failure with hypoxia Status: Acute (2) Sepsis: Code(s): A41.9 - Sepsis, unspecified organism Status: Acute (3) Influenza A: Code(s): J10.1 - Influenza due to other identified influenza virus with other respiratory manifestations Status: Acute (4) COVID: Code(s): U07.1 - COVID-19 Status: Acute DS: Summary Hospital Course Hospital Course: An 82-year-old white male with a past medical history recent subarachnoid hemorrhage taken off of anticoagulation, DVT/PE with IVC in place, COPD, paroxysmal AFib, insulin-dependent diabetes mellitus, hypothyroidism, hypertension, total splenectomy presents with shortness of breath and cough. The patient had acute respiratory failure with hypoxia and sepsis doubt shock due to COVID-19 pneumonia and influenza A. He was treated with remdesivir dexamethasone nebulizers Tessalon Perles and Tamiflu. For suspected community-acquired pneumonia he also received 5 days of azithromycin and ceftriaxone. Also found to have an acute on chronic left popliteal DVT. September 10 the patient is discharged in stable condition to home with home health services as he has declined placement for acute rehab. He remains on room air and shortness of breath resolved. He will continue his home medications. Anti coagulation will not be restarted and will have to be evaluated by his neurosurgery team from the outside hospital which she has an appointment next week. The patient was full code during his admission. Time Spent with Patient Time attestation: Total time spent providing and/or coordinating discharge services: Exam Const: General: comfortable and no acute distress Other: A&O x3. Obesity. Eyes: Pupils: Equal, round and reactive pupils present Resp: Effort & Inspection: normal respiratory effort Auscultation: clear to auscultation bilaterally Cardio: Rate: regular rate Rhythm: regular rhythm GI: GI Palp: Yes Soft to palpation and No Tenderness to palpation present (GI) Extrem: General: no edema DS: Data Data Completed and Pending Labs on day of discharge: Labs from last 24 hours 09/10/23 09/10/23 09/09/23 08:10 05:45 21:06 WBC 4.7 RBC 5.69 Hgb 16.1 Hct 48.6 MCV 85.4 MCH 28.3 MCHC 33.1 RDW 18.1 H Plt Count 223 MPV 11.3 H Immature Gran % (Auto) 1.5 H Neut % (Auto) 62.5 Lymph % (Auto) 20.3 [place] % (Auto) 15.3 H Eos % (Auto) 0.0 Baso % (Auto) 0.4 Lymph # (Auto) 0.96 [place] # (Auto) 0.7 H Eos # (Auto) 0.0 Baso # (Auto) 0.0 Abs Immat Gran (auto) 0.07 H Absolute Neuts (auto) 3.0 Absolute Nucleated RBC 0.0 Nucleated RBC % 0.0 Sodium 136 L Potassium 4.0 Chloride 107 Carbon Dioxide 23 Anion Gap 6 L BUN 22 H Creatinine 1.00 Estim Creat Clear Calc 82 Estimated GFR > 60 Glucose 162 H POC Capillary Glucose 184 H 165 H Calcium 8.4 Magnesium 2.2 09/09/23 09/09/23 17:18 12:43 WBC RBC Hgb Hct MCV MCH MCHC RDW Plt Count MPV Immature Gran % (Auto) Neut % (Auto) Lymph % (Auto) [place] % (Auto) Eos % (Auto) Baso % (Auto) Lymph # (Auto) [place] # (Auto) Eos # (Auto) Baso # (Auto) Abs Immat Gran (auto) Absolute Neuts (auto) Absolute Nucleated RBC Nucleated RBC % Sodium Potassium Chloride Carbon Dioxide Anion Gap BUN Creatinine Estim Creat Clear Calc Estimated GFR Glucose POC Capillary Glucose 138 H 264 H Calcium Magnesium Preliminary micro results at discharge 09/05/23 18:00 Blood Culture - Preliminary Blood 09/05/23 18:08 Blood Culture - Preliminary Blood Discharge Plan Discharge Mikel kruger
[2023-09-10 10:24] VITALS: BP 157/69; PULSE 68; RESP 14; O2SAT 98
[2023-09-10] MEDS: TAMSULOSIN HCL 0.4 MG CAPSULE 0.8 MG PO (10:25)
[2023-09-10] MEDS: BACLOFEN 10 MG TABLET PO ×2 (10:26→13:04)
[2023-09-10] MEDS: FLECAINIDE ACETATE 50 MG TABLET PO (10:26)
[2023-09-10] MEDS: DOXYCYCLINE HYCLATE 100 MG TABLET PO (10:26)
[2023-09-10] MEDS: ATORVASTATIN 20 MG TABLET PO (10:26)
[2023-09-10 10:28] VITALS: PULSE 68
[2023-09-10] MEDS: METOPROLOL TARTRATE 12.5 MG TABLET PO (10:28)
[2023-09-10] MEDS: EMPAGLIFLOZIN 10 MG TABLET PO (10:28)
[2023-09-10] MEDS: BENZONATATE 100 MG CAPSULE PO ×2 (10:28→13:04)
[2023-09-10] MEDS: LORATADINE 10 MG TABLET PO (10:29)
[2023-09-10] MEDS: PREGABALIN (*CRX) 75 MG CAPSULE 150 MG PO ×2 (10:29→13:05)
[2023-09-10] MEDS: LIDOCAINE 5% PATCH 1 PATCH TRANSDERM ×2 (10:29→10:30)
[2023-09-10] MEDS: PANTOPRAZOLE 40 MG TABLET PO (10:29)
[2023-09-10] MEDS: HEPARIN SODIUM 5,000 UNITS/ML VIAL 5000 UNITS SUB-Q (10:30)
[2023-09-10] MEDS: DOCUSATE SODIUM LIQ 100 MG/10 ML UDC 50 MG PO (10:30)
[2023-09-10] MEDS: ACIDOPHILUS/BULGARICUS CHEWABLE TABLET 1 TABLET PO (10:31)
[2023-09-10] MEDS: INSULIN ASPART (*BKC) 100 UNITS/ML 8 UNITS SUB-Q ×2 (10:31→13:05)
[2023-09-10] MEDS: TRIAMCINOLONE ACET 0.1% CREAM 15 GM TUBE 1 APPLIC TOPICAL (10:47)
[2023-09-10 12:17] LABS: Glucose Point of Care 196 mg/dl (65-105)
== END 2023-09-10 13:30 | disposition home health service (06) | DRG 871 ==
LOC: ANHED 17:49 → ANH2MED 18:14
PROVIDERS: Emergency Medicine; Nurse Practitioner; Student in an Organized Health Care Education/Training Program; Admitting Provider Hospitalist; Emergency Provider Student in an Organized Health Care Education/Training Program; PCP Family Medicine; Visit Provider General Practice
DX: A41.89 Other specified sepsis (principal); J12.82 Pneumonia due to coronavirus disease 2019; U07.1 COVID-19; J96.01 Acute respiratory failure with hypoxia; J44.0 Chronic obstructive pulmonary disease with (acute) lower respiratory infection; I82.432 Acute embolism and thrombosis of left popliteal vein; Z68.41 Body mass index [BMI] 40.0-44.9, adult; E11.40 Type 2 diabetes mellitus with diabetic neuropathy, unspecified; E66.01 Morbid (severe) obesity due to excess calories; J10.1 Influenza due to other identified influenza virus with other respiratory manifestations; I10 Essential (primary) hypertension; I48.0 Paroxysmal atrial fibrillation; K21.9 Gastro-esophageal reflux disease without esophagitis; N40.0 Benign prostatic hyperplasia without lower urinary tract symptoms; Z95.828 Presence of other vascular implants and grafts; Z86.718 Personal history of other venous thrombosis and embolism; Z86.711 Personal history of pulmonary embolism; Z98.41 Cataract extraction status, right eye; Z98.42 Cataract extraction status, left eye; Z90.81 Acquired absence of spleen; Z96.653 Presence of artificial knee joint, bilateral; Z87.891 Personal history of nicotine dependence; Z66 Do not resuscitate; Z79.4 Long term (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
CPT/HCPCS: 36415; 70450; 71045; 80048; 80053; 80076; 81001; 82948; 83036; 83605; 83735; 83880; 84484; 85025; 85610; 86140; 87040; 87637; 93005; 93971; 94640; 96360; 97110; 97116; 97161; 97166; 97530; 97535; 99285; A9270; J0248; J0456; J0696; J1100; J1644; J1815; J7040

== ENCOUNTER 2023-09-22 11:34 | Outpatient (CLI) | payer MEDICARE, SELFPAY ==
--- NOTE | ~2023-09-22 | US_ITS ---
EXAMINATION: US venous doppler UE RT DATE: 09/22/2023 12:24 INDICATION: Right upper limb swelling TECHNIQUE: Grayscale images without and with compression and Doppler images of the right upper extrem ity veins were obtained. COMPARISON: None. FINDINGS: The right internal jugular vein, subclavian vein, axillary vein, brachial vein, basilic vein, cephali c vein, radial vein, and ulnar vein are patent. IMPRESSION: 1. Patent right upper extremity veins. No evidence of venous thrombosis. Reviewed, dictated and finalized at location A. E HALL HOST/HOSTESS
--- NOTE | ~2023-09-22 | XR_ITS ---
Clinical Indication: Pneumonia AP and lateral views of the chest: Comparison: 09/05/2023 Findings: There is hazy airspace disease in the left lung base. Right lung clear.. Cardiomediastinal silhouette is within normal limits. Bones and soft tissues are unremarkable. Impression: Hazy left basilar airspace disease. Correlate for atelectasis or pneumonia. Reviewed, dictated and finalized at location . LE HOME SERVICER Impression: Hazy left basilar airspace disease. Correlate for atelectasis or pneumonia.
[2023-09-22 13:33] LABS: Iron 120 ug/dL (49-181)
[2023-09-22 13:42] LABS: Percent Iron Saturation 46 % (20-50)
== END 2023-09-22 11:35 | disposition home or self-care (01) ==
PROVIDERS: PCP Family Medicine; Visit Provider Physician Assistant Medical
DX: J18.9 Pneumonia, unspecified organism (principal); I82.409 Acute embolism and thrombosis of unspecified deep veins of unspecified lower extremity; R60.0 Localized edema; D75.1 Secondary polycythemia
CPT/HCPCS: 36415; 71046; 83540; 83550; 93971

== ENCOUNTER 2023-10-04 17:35 | Inpatient (IN) | payer MEDICARE, SELFPAY ==
[2023-10-04] VITALS (9 sets, daily range): BP systolic 99–153; BP diastolic 58–129; PULSE 85–124; RESP 20–24; TEMP 36.2–36.9; O2SAT 93–97; BMI 44.4
--- NOTE | ~2023-10-04 | CT_ITS ---
EXAMINATION: CTA chest PE protocol DATE: 10/04/2023 18:44 INDICATION: increased dyspnea, afib TECHNIQUE: Computed tomography angiography (CTA) of the chest was performed with 100 mL Omnipaque-350 intravenous contrast timed to evaluate the pulmonary arteries. Coronal maximum intensity projection 3D-reconstructions were created by the technologist. The dose-length product (DLP) was 1084.36 mGy-cm . Automated exposure control and iterative reconstruction technique were employed. COMPARISON: None. FINDINGS: Lung parenchyma and airways: Mild septal thickening. Dependent groundglass opacities in all lobes, mo st pronounced in the lower lobes. Mild tracheomalacia. Medial basilar left lower lobe atelectasis. Pleura: Unremarkable. Thoracic inlet, axillae and chest wall: Unremarkable. Thoracic aorta: No significant dilation. No dissection. Moderate arch calcification. Mediastinum: Normal. Heart and pericardium: Normal. Coronary artery calcifications: Mild. Upper abdomen: Cholelithiasis, without inflammatory changes.. Bones: No acute osseous finding. Pulmonary arteries: Study quality: Mild motion and quantum mottle from arm down positioning limits ev aluation of the subsegmental pulmonary arteries. Acute nonocclusive emboli present in the proximal as pect of multiple right loer lobe and left lower lobe segmental arteries. IMPRESSION: Acute nonocclusive bilateral lower lobe segmental pulmonary emboli. Small clot burden. No CT evidence of right heart strain. Mild-moderate pulmonary edema. Reviewed, dictated and finalized at location K. DREDGER
--- NOTE | ~2023-10-04 | XR_ITS ---
EXAMINATION: XR chest 1V Exam Date/Time: 10/04/2023 18:42 CAFETERIA ASSOCIATE HISTORY: syncope Comparison: 09/22/2023; CTPA 10/04/2023. RESULT: Lines, tubes, and devices: None. Lungs and pleura: Patchy mid and lower lung bilateral groundglass opacities. Mild diffuse reticular opacities and indistinct vessels. Cardiomediastinal silhouette: Stable. Other: No acute osseous or upper abdominal finding. IMPRESSION: Patchy bilateral opacities may represent mild pulmonary edema, noting that infection is not excluded. Small left pleural effusion. Reviewed, dictated and finalized at location K. TERIA ASSOCIATE IMPRESSION: Patchy bilateral opacities may represent mild pulmonary edema, noting that infe ction is not excluded. Small left pleural effusion.
--- NOTE | 2023-10-04 17:48 | ECG_ITS ---
Measurements Intervals [place] Rate: 112 P: [place]: 0 QRS: 28 QRSD: 96 T: 54 QT: 321 QTc: 439 Interpretive Statements ATRIAL FLUTTER WITH RAPID VENTRICULAR RESPONSE BASELINE ARTIFACT- I, II, III, AVL ABNORMAL ECG COMPARED TO ECG 09/05/2023 18:18:43 ATRIAL FLUTTER NOW PRESENT Electronically Signed On 10-04-2023 20:33:07 FOOD AND BEVERAGE CONTROLLER by Dani Cortez D.O.
[2023-10-04 18:02] LABS: Glucose Point of Care 140 mg/dl (65-105)
--- NOTE | 2023-10-04 18:02 | ED.DIZZY ---
HPI - Dizziness General Chief Complaint: Syncope <Roberto Valenzuela PA-C - Last Filed: 10/05/23 02:24> Stated Complaint: SYNCOPY <Roberto Valenzuela PA-C - Last Filed: 10/05/23 02:24> Time Seen by Provider: 10/04/23 17:47 <Roberto Valenzuela PA-C - Last Filed: 10/05/23 02:24> Source: patient <ROBB Choi Last Filed: 10/05/23 02:24> Mode of arrival: EMS <ROBB Choi Last Filed: 10/05/23 02:24> Limitations: no limitations <Roberto Valenzuela PA-C - Last Filed: 10/05/23 02:24> History of Present Illness HPI Narrative: This is an 82-year-old male with multiple medical comorbidities who presents to the ED via EMS for chief complaint of syncopal episode and generalized weakness. Patient states that he had an episode last night where he felt very generally weak while trying to go from the bed to bathroom. He states this happened again today while his and son were with him. EMS reports that they were told by family patient had a brief syncopal episode. They were able to get him to a chair before he syncopized. Denies any trauma. Patient states that he has had a little bit of increased shortness of breath but he is chronically short of breath with COPD. States he was in the hospital recently for pneumonia and felt like he had been getting better up until yesterday. Denies chest pain, focal weakness or numbness. States he was taken off chronic anticoagulation after having a brain bleed last year. Patient reiterates to me that he is DNR, DNI. <Roberto Valenzuela PA-C - Last Filed: 10/05/23 02:24> Related Data Home Medications: Home Medications Medication Instructions Recorded Confirmed flecainide 50 mg tablet 50 mg PO Q12H 06/21/19 10/04/23 docusate sodium 50 mg capsule 50 mg PO BID 06/14/20 10/04/23 loratadine 10 mg capsule 10 mg PO DAILY 06/14/20 10/04/23 lactobacillus combination no.9 4 4,000 mmu cells PO DAILY 11/07/21 10/04/23 billion cell capsule (Adult 50 Plus Probiotic) sennosides 8.6 mg-docusate sodium 1 tab-cap PO QHS 11/07/21 10/04/23 50 mg tablet levothyroxine 50 mcg tablet 50 mcg PO DAILY 09/05/23 10/04/23 metoprolol tartrate 25 mg tablet 12.5 mg PO BID 09/05/23 10/04/23 omeprazole 20 mg capsule,delayed 20 mg PO DAILY 09/05/23 10/04/23 release oxycodone 5 mg tablet 5 mg PO Q8H PRN Pain 09/05/23 10/04/23 tamsulosin 0.4 mg capsule 0.8 mg PO DAILY 09/05/23 10/04/23 <Roberto Valenzuela PA-C - Last Filed: 10/05/23 02:24> Allergies/Adverse Reactions: Allergies Allergy/AdvReac Type Severity Reaction Status Date / Time No Known Allergies Allergy Unverified 09/28/23 09:26 <ROBB Choi Last Filed: 10/05/23 02:24> Review of Systems Review of Systems: All systems as dictated in HPI <Roberto Valenzuela PA-C - Last Filed: 10/05/23 02:24> [facility] Past Medical History Medical History: Medical History (Updated 10/05/23 @ 10:43 by Manan Garrett MD) Acute exacerbation of chronic obstructive airways disease Ankle fracture, bimalleolar, closed Ankle syndesmosis disruption Atrial fibrillation BPH (benign prostatic hyperplasia) Chronic antibiotic suppression Chronic anticoagulation Constipation COPD (chronic obstructive pulmonary disease) Diabetes mellitus with neuropathy High cholesterol History of deep vein thrombosis (DVT) of lower extremity History of hemorrhoids History of pulmonary embolism Hypertension Hypothyroidism determined by thyroid function test Infection of spine Left ankle pain Olecranon bursitis of right elbow Osteomyelitis, chronic Pneumonia due to COVID-19 virus Recurrent deep vein thrombosis (DVT) Right arm pain Rotator cuff arthropathy of right shoulder Rupture of left Achilles tendon SOB (shortness of breath) Spleen absent Vision changes Weakness of both lower extremities <Roberto Valenzuela PA-C - Last Filed: 10/05/23 02:24> Surgical History Surgical History: Surgical History (Reviewed 09/28/
[2023-10-04 18:05] LABS: Basophils Absolute Auto 0.1 K/mm3 (0.0-0.1); Basophils Percent Auto 0.4 % (0.2-1.2); Eosinophils Absolute Auto 0.1 K/mm3 (0-0.3); Eosinophils Percent Auto 0.5 % (0-4.4); Hematocrit 50.1 % (42.0-52.0); Immature Granulocyte Percent A 1.8 % (0-0.5); Lymphocytes Percent Auto 6.6 % (18.3-44.2); Mean Corpuscular HGB Conc 31.9 g/dl (32-36); Mean Corpuscular Hemoglobin 27.8 pg (26-34); Mean Corpuscular Volume 87.1 fl (80-100); Mean Platelet Volume 11.1 fl (7.4-10.4); Monocytes Absolute Auto 1.9 K/mm3 (0.1-0.6); Monocytes Percent Auto 11.3 % (2.6-8.5); Neutrophils Absolute Auto 13.3 K/mm3 (1.3-6.7); Neutrophils Percent Auto 79.4 % (45.5-73.1); Platelet Count Result 248 k/mm3 (150-375); Red Blood Count 5.75 M/mm3 (4.6-6.20); Red Cell Distribution Width 19.3 % (11.5-14.5); White Blood Count 16.7 K/mm3 (4.5-10.0)
[2023-10-04] MEDS: METOPROLOL TARTRATE INJ 5 MG/5 ML VIAL IV PUSH (18:10)
[2023-10-04 18:17] LABS: Alanine Aminotransferase 21 U/L (6-50); Albumin Level 2.9 g/dL (3.5-5.1); Alkaline Phosphatase 108 U/L (38-126); Anion Gap 6 mmol/L (8-16); Aspartate Amino Transferase 22 U/L (17-59); Blood Urea Nitrogen 22 mg/dL (9-20); Calcium 8.6 mg/dL (8.4-10.2); Carbon Dioxide 24 mmol/L (22-30); Chloride 108 mmol/L (98-107); Estimated CRCL calculation 60 ml/min; Estimated Glomerular Filt Rate 49; Glucose 126 mg/dL (65-110); Potassium 3.9 mmol/L (3.4-5.0); Sodium 138 mmol/L (137-145)
[2023-10-04 18:18] LABS: Partial Thromboplastin Time 23.5 SECONDS (22.3-36.8); Prothrombin Time 13.9 Seconds (11.1-14.7)
[2023-10-04] MEDS: SODIUM CHLORIDE 0.9% IV 1,000 ML 999 ML IV CONT (18:24)
[2023-10-04 18:28] LABS: NT Pro B Type Natriuretic Pept 4330 pg/mL (19.9-100); Troponin I < 0.012 ng/mL (0.000-0.034)
[2023-10-04] MEDS: METOPROLOL TARTRATE 50 MG TAB PO (19:47)
[2023-10-04 20:00] LABS: Appearance Urine Clear (Clear); Bacteria Urine None Seen /hpf; Bilirubin Urine Negative (Negative); Blood Urine 2+ (Negative); Color Urine Yellow (Yellow); Glucose Urine UA 3+ mg/dL (Negative); Ketones Urine Negative (Negative); Leukocyte Esterase Ur Negative LEU/UL (Negative); Nitrate Urine Negative (Negative); Protein Urine Negative (Negative); RBC Urine 21-50 /hpf (0-2); Squamous Epithelial Cell Urine None seen /hpf (Few); Urobilinogen Urine 0.2 mg/dL (<2.0); WBC Urine 0-5 /hpf
[2023-10-04 20:20] LABS: Specific Grav Ur 1.046 (1.001-1.035)
[2023-10-04 20:21] LABS: Add Urine Microscopic? YES
[2023-10-04 21:45] LABS: Glucose Point of Care 190 mg/dl (65-105)
--- NOTE | 2023-10-04 21:45 | ADMGEN ---
This patient, Neal Amaro, was admitted to IMU Room 210-.@ 2138 Patient/family oriented to hospital policies and general routines including ID bracelet, bed and alarms, visiting hours, pain management, procedures, bathroom and other care routines, personal items, smoking policy, room service/diet, and visiting hours. Information on how to activate the Rapid Response Team has been discussed. Patient/Family are encouraged to report perceived risks to care and to ask questions if they do not understand what they are told or what they should do.
--- NOTE | 2023-10-04 22:45 | PM.IMHP ---
H&P: HPI History of Present Illness Date/Time: 10/04/23 22:45 Chief Complaint: Weakness and near-syncope Narrative: This is a pleasant 82-year-old male with a past medical history subarachnoid hemorrhage, DVT/PE with an IVC in place taken off of anticoagulation, COPD with oxygen use intermittently, paroxysmal AFib, CKD stage 2, insulin-dependent diabetes mellitus, hypothyroidism, hypertension, obesity, total splenectomy, right eye blindness who presents with weakness. The patient had been doing fairly well at home when yesterday he felt weak when trying to go to the bathroom. His and son were with him and they sat him down on a chair when he started snoring. He reports chest congestion but no cough or sputum production and mild shortness of breath but that may be due to his COPD. He was recently discharged from [facility] with COVID and hypoxic respiratory failure treated with remdesivir dexamethasone azithromycin and ceftriaxone. In [place] ER he was found to have leukocytosis at 16.[address] demonstrating acute nonocclusive bilateral lower lobe segmental PE with small clot burden and no evidence of right heart strain along with mild pulmonary edema. HEBERT Jackson in the ER was able to get in touch with Neurosurgery at [place] and they recommended patient could restart his anticoagulation and have a repeat CT when fully anticoagulated. The patient also reports he saw Neurosurgery recently as an outpatient visit and confirmed this. However he had not restarted his warfarin yet. The patient wants to use warfarin as when he took Xarelto he had severe anemia. The patient also recently decided with his primary physician Liset Haynes MD he wants to be DNR. Review of Systems Review of Systems: All systems reviewed & are unremarkable except as noted in HPI and below (Subjective) [facility] Past Medical History Medical History (Updated 10/04/23 @ 22:53 by Jillian Frederick MD) Acute exacerbation of chronic obstructive airways disease Ankle fracture, bimalleolar, closed Ankle syndesmosis disruption Atrial fibrillation BPH (benign prostatic hyperplasia) Chronic antibiotic suppression Chronic anticoagulation Constipation COPD (chronic obstructive pulmonary disease) Diabetes mellitus with neuropathy High cholesterol History of deep vein thrombosis (DVT) of lower extremity History of hemorrhoids History of pulmonary embolism Hypertension Hypothyroidism determined by thyroid function test Infection of spine Left ankle pain Olecranon bursitis of right elbow Osteomyelitis, chronic Pneumonia due to COVID-19 virus Recurrent deep vein thrombosis (DVT) Right arm pain Rotator cuff arthropathy of right shoulder Rupture of left Achilles tendon SOB (shortness of breath) Spleen absent Vision changes Weakness of both lower extremities Surgical History Surgical History H/O bilateral cataract extraction H/O colonoscopy with polypectomy H/O splenectomy H/O total knee replacement Bilaterally History of back surgery x2 ([facility]), x1 ([facility]) History of embolic filter insertion History of pancreatic surgery Removal of pancreatic mass ([facility]) Hx of hernia repair S/P rotator cuff repair Total knee replacement status Family History Family History Grandparent Diabetes mellitus Father Family history of cardiovascular disease Intracranial aneurysm Mother Dvt femoral (deep venous thrombosis) Sibling Throat cancer Sister Acute myocardial infarction Brother Social History Social History Social History: The patient lives with his it looks like he was in the past patient was smoking up to 3 packs of cigarettes a day. He is retired from [employer]. He drinks occasionally denies any ill
[2023-10-05] VITALS (22 sets, daily range): BP systolic 85–120; BP diastolic 43–72; PULSE 48–96; RESP 18–24; TEMP 36.1–36.6; O2SAT 93–97
[2023-10-05] MEDS: PREGABALIN (*CRX) 75 MG CAPSULE 150 MG PO ×4 (00:05→21:06)
[2023-10-05] MEDS: WARFARIN (*PBKC) 5 MG TABLET PO ×2 (00:05→18:16)
[2023-10-05] MEDS: BACLOFEN 10 MG TABLET PO ×4 (00:06→21:06)
[2023-10-05] MEDS: AZELASTINE HCL NASAL 0.1% 137 MCG/SPR 30 ML BTL 2 SPRAY NASAL ×3 (00:07→21:06)
[2023-10-05] MEDS: TRIAMCINOLONE ACET 0.1% CREAM 15 GM TUBE 1 APPLIC TOPICAL ×3 (00:09→21:10)
[2023-10-05] MEDS: DOXYCYCLINE 100 MG/NS 100 ML 100 MG/100 ML BAG IVPB ×3 (00:17→22:55)
[2023-10-05] MEDS: HEPARIN SOD/D5W 100 UNITS/ML 25,000 UNITS/250 ML BAG 15 UNITS IV CONT (01:03)
[2023-10-05 01:12] LABS: Influenza A QL RT-PCR Negative (Negative); Influenza B QL RT-PCR Negative (Negative); RSV RNA, RT-PCR Negative (Negative); SARS-CoV-2 RNA PCR Negative (Negative)
[2023-10-05 05:06] LABS: Basophils Absolute Auto 0.1 K/mm3 (0.0-0.1); Basophils Percent Auto 0.8 % (0.2-1.2); Eosinophils Absolute Auto 0.3 K/mm3 (0-0.3); Hematocrit 48.5 % (42.0-52.0); Hemoglobin 15.5 g/dL (14.0-18.0); Immature Granulocyte Absolute 0.23 K/mm3 (0.00-0.031); Immature Granulocyte Percent A 2.8 % (0-0.5); Lymphocytes Absolute Auto 1.59 K/mm3 (0.9-3.2); Lymphocytes Percent Auto 19.2 % (18.3-44.2); Mean Corpuscular Hemoglobin 28.1 pg (26-34); Mean Platelet Volume 11.3 fl (7.4-10.4); Monocytes Absolute Auto 1.1 K/mm3 (0.1-0.6); Monocytes Percent Auto 12.9 % (2.6-8.5); Neutrophils Absolute Auto 5.1 K/mm3 (1.3-6.7); Neutrophils Percent Auto 61.3 % (45.5-73.1); Platelet Count Result 230 k/mm3 (150-375); Red Blood Count 5.51 M/mm3 (4.6-6.20); Red Cell Distribution Width 19.6 % (11.5-14.5); White Blood Count 8.3 K/mm3 (4.5-10.0)
[2023-10-05 05:16] LABS: INR 1.1; Prothrombin Time 14.5 Seconds (11.1-14.7)
[2023-10-05 06:18] LABS: Procalcitonin 0.2 ng/mL
[2023-10-05] MEDS: LEVOTHYROXINE SODIUM 50 MCG TABLET PO (06:41)
[2023-10-05 07:01] LABS: Alanine Aminotransferase 17 U/L (6-50); Albumin Level 2.5 g/dL (3.5-5.1); Alkaline Phosphatase 101 U/L (38-126); Anion Gap 2 mmol/L (8-16); Aspartate Amino Transferase 21 U/L (17-59); Blood Urea Nitrogen 21 mg/dL (9-20); Calcium 8.4 mg/dL (8.4-10.2); Carbon Dioxide 26 mmol/L (22-30); Chloride 109 mmol/L (98-107); Estimated CRCL calculation 64 ml/min; Estimated Glomerular Filt Rate 53; Glucose 146 mg/dL (65-110); Magnesium 2.2 mg/dL (1.6-2.3); Potassium 4.2 mmol/L (3.4-5.0); Sodium 137 mmol/L (137-145)
[2023-10-05 07:13] LABS: Partial Thromboplastin Time 34.8 SECONDS (22.3-36.8)
[2023-10-05] MEDS: INSULIN ASPART (*BKC) 100 UNITS/ML 8 UNITS SUB-Q ×3 (08:00→18:15)
[2023-10-05 08:07] LABS: Glucose Point of Care 179 mg/dl (65-105)
[2023-10-05] MEDS: HEPARIN SODIUM 5,000 UNITS/ML VIAL 9000 UNITS IV PUSH (08:08)
[2023-10-05] MEDS: FLUTICASONE/UMECLIDIN/VILANTER 200-62.5-25 MCG ELLIPTA 1 PUFF INHALATION (08:21)
[2023-10-05] MEDS: TAMSULOSIN HCL 0.4 MG CAPSULE 0.8 MG PO (09:04)
[2023-10-05] MEDS: PANTOPRAZOLE 40 MG TABLET PO (09:04)
[2023-10-05] MEDS: LORATADINE 10 MG TABLET PO (09:05)
[2023-10-05] MEDS: EMPAGLIFLOZIN 10 MG TABLET PO (09:05)
[2023-10-05] MEDS: METOPROLOL TARTRATE 25 MG TABLET PO ×2 (09:05→21:05)
[2023-10-05] MEDS: ATORVASTATIN 20 MG TABLET PO (09:06)
--- NOTE | 2023-10-05 10:39 | PM.IMPN ---
Progress Note: A&P Assessment and Plan (1) Pulmonary edema: Code(s): J81.1 - Chronic pulmonary edema Status: Acute Assessment and Plan: Probable acute and of chronic diastolic CHF exacerbation will give IV Lasix daily present on admission (2) Pulmonary embolism: Code(s): I26.99 - Other pulmonary embolism without acute cor pulmonale Status: Acute Assessment and Plan: Patient have IVC filter patient has history of subarachnoid hemorrhage in the past neurosurgery cleared the patient to have anticoagulation also the patient stated that his medical staff services coordinator told him that he need to be on anticoagulation lifelong patient want to be on anticoagulation counseling was given on details regarding benefit risk patient wanted to proceed with anticoagulation drip was started patient want to be on Coumadin Patient denies black stool (3) Acute hypoxic respiratory failure: Code(s): J96.01 - Acute respiratory failure with hypoxia Status: Acute Assessment and Plan: Secondary to above IV Lasix full anticoagulation (4) Hypertension: Qualifiers: Hypertension type: essential hypertension Qualified Code(s): I10 - Essential (primary) hypertension Code(s): I10 - Essential (primary) hypertension Status: Chronic Assessment and Plan: Continue home medication (5) COPD (chronic obstructive pulmonary disease): Qualifiers: COPD type: unspecified COPD Qualified Code(s): J44.9 - Chronic obstructive pulmonary disease, unspecified Code(s): J44.9 - Chronic obstructive pulmonary disease, unspecified Status: Acute Assessment and Plan: Stable continue current treatment (6) Diabetes mellitus with neuropathy: Qualifiers: Diabetes mellitus type: type 2 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 insulin use: with 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 use Qualified Code(s): E11.40 - Type 2 diabetes mellitus with diabetic neuropathy, unspecified; Z79.4 - half-way (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 Code(s): E11.40 - Type 2 diabetes mellitus with diabetic neuropathy, unspecified Status: Acute Assessment and Plan: Insulin sliding scale (7) Hyperlipidemia: Qualifiers: Hyperlipidemia type: mixed hyperlipidemia Qualified Code(s): E78.2 - Mixed hyperlipidemia Code(s): E78.5 - Hyperlipidemia, unspecified Status: Acute Assessment and Plan: Hyperlipidemia (8) Recurrent deep vein thrombosis (DVT): Code(s): I82.409 - Acute embolism and thrombosis of unspecified deep veins of unspecified lower extremity Status: Acute Assessment and Plan: Full anticoagulation benefit outweighed the risk Subjective Date/time seen: 10/05/23 10:39 Interval history: 82-year-old male with a past medical history subarachnoid hemorrhage, 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 The patient had been doing fairly well at home when yesterday he felt weak when trying to go to the bathroom.? His and son were with him and they sat him down on a chair when he started snoring.? He reports chest congestion but no cough or sputum production and mild shortness of breath but that may be due to his COPD.? He was recently discharged from [facility] with COVID and hypoxic respiratory failure treated with remdesivir dexamethasone azithromycin and ceftriaxone.? In [place] ER he was found to have leukocytosis at 16.[address] demonstrating acute nonocclusive bilateral lower lobe segmental PE with small clot burden and no evidence of right heart strain along with mild pulmonary edema.? HEBERT Jackson in the ER was able to get in touch with Neurosurgery at [place] and they recommended patient could restart his anticoagulation and have a
[2023-10-05 11:59] LABS: Glucose Point of Care 185 mg/dl (65-105)
[2023-10-05] MEDS: FUROSEMIDE INJ 40 MG/4 ML VIAL IV PUSH (12:36)
[2023-10-05] MEDS: HEPARIN SOD/D5W 100 UNITS/ML 25,000 UNITS/250 ML BAG 19 UNITS IV CONT (14:57)
[2023-10-05 15:05] LABS: Partial Thromboplastin Time > 200.0 SECONDS (22.3-36.8)
[2023-10-05 17:12] LABS: Glucose Point of Care 152 mg/dl (65-105)
[2023-10-05 21:02] LABS: Glucose Point of Care 201 mg/dl (65-105)
[2023-10-05] MEDS: INSULIN ASPART (*BKC) 100 UNITS/ML SUB-Q (21:07)
[2023-10-05] MEDS: INSULIN GLARGINE (*BKC) 100 UNITS/ML 44 UNITS SUB-Q (21:09)
[2023-10-05 22:25] LABS: Partial Thromboplastin Time 101.9 SECONDS (22.3-36.8)
[2023-10-06] VITALS (20 sets, daily range): BP systolic 87–128; BP diastolic 51–82; PULSE 64–107; RESP 18–20; TEMP 36.4–36.8; O2SAT 93–100
[2023-10-06] MEDS: HEPARIN SOD/D5W 100 UNITS/ML 25,000 UNITS/250 ML BAG 16 UNITS IV CONT ×2 (05:05→21:13)
[2023-10-06] MEDS: PREGABALIN (*CRX) 75 MG CAPSULE 150 MG PO ×3 (05:07→21:12)
[2023-10-06] MEDS: LEVOTHYROXINE SODIUM 50 MCG TABLET PO (05:07)
[2023-10-06] MEDS: BACLOFEN 10 MG TABLET PO ×3 (05:07→21:12)
[2023-10-06 05:27] LABS: Basophils Absolute Auto 0.1 K/mm3 (0.0-0.1); Basophils Percent Auto 0.6 % (0.2-1.2); Eosinophils Absolute Auto 0.3 K/mm3 (0-0.3); Eosinophils Percent Auto 3.2 % (0-4.4); Hemoglobin 15.9 g/dL (14.0-18.0); Immature Granulocyte Absolute 0.35 K/mm3 (0.00-0.031); Immature Granulocyte Percent A 4.2 % (0-0.5); Lymphocytes Absolute Auto 1.64 K/mm3 (0.9-3.2); Lymphocytes Percent Auto 19.6 % (18.3-44.2); Mean Corpuscular HGB Conc 30.6 g/dl (32-36); Mean Corpuscular Hemoglobin 28.4 pg (26-34); Mean Corpuscular Volume 92.9 fl (80-100); Mean Platelet Volume 11.4 fl (7.4-10.4); Monocytes Absolute Auto 1.3 K/mm3 (0.1-0.6); Monocytes Percent Auto 15.2 % (2.6-8.5); Neutrophils Absolute Auto 4.8 K/mm3 (1.3-6.7); Neutrophils Percent Auto 57.2 % (45.5-73.1); Nucleated Red Blood Cells Perc 0.2 % (0.0-0.2); Platelet Count Result 198 k/mm3 (150-375); Red Cell Distribution Width 19.9 % (11.5-14.5); White Blood Count 8.4 K/mm3 (4.5-10.0)
[2023-10-06 05:41] LABS: Partial Thromboplastin Time 90.5 SECONDS (22.3-36.8)
[2023-10-06 06:46] LABS: Alanine Aminotransferase 17 U/L (6-50); Albumin Level 2.6 g/dL (3.5-5.1); Alkaline Phosphatase 98 U/L (38-126); Aspartate Amino Transferase 25 U/L (17-59); Bilirubin,Total 0.7 mg/dL (0.2-1.3); Blood Urea Nitrogen 20 mg/dL (9-20); Calcium 8.3 mg/dL (8.4-10.2); Carbon Dioxide 28 mmol/L (22-30); Chloride 109 mmol/L (98-107); Estimated CRCL calculation 72 ml/min; Estimated Glomerular Filt Rate 58; Glucose 99 mg/dL (65-110); Potassium 3.9 mmol/L (3.4-5.0)
[2023-10-06 06:52] LABS: Anion Gap 3 mmol/L (8-16); Sodium 140 mmol/L (137-145)
[2023-10-06] MEDS: FLUTICASONE/UMECLIDIN/VILANTER 200-62.5-25 MCG ELLIPTA 1 PUFF INHALATION (07:15)
[2023-10-06 08:05] LABS: Glucose Point of Care 100 mg/dl (65-105)
[2023-10-06] MEDS: INSULIN ASPART (*BKC) 100 UNITS/ML 8 UNITS SUB-Q ×3 (08:30→18:01)
[2023-10-06] MEDS: METOPROLOL TARTRATE 25 MG TABLET PO ×2 (08:32→21:09)
[2023-10-06] MEDS: FUROSEMIDE INJ 40 MG/4 ML VIAL IV PUSH (08:32)
[2023-10-06] MEDS: ATORVASTATIN 20 MG TABLET PO (08:32)
[2023-10-06] MEDS: TAMSULOSIN HCL 0.4 MG CAPSULE 0.8 MG PO (08:32)
[2023-10-06] MEDS: EMPAGLIFLOZIN 10 MG TABLET PO (08:33)
[2023-10-06] MEDS: AZELASTINE HCL NASAL 0.1% 137 MCG/SPR 30 ML BTL 2 SPRAY NASAL ×2 (08:34→21:06)
[2023-10-06] MEDS: PANTOPRAZOLE 40 MG TABLET PO (08:34)
[2023-10-06] MEDS: LORATADINE 10 MG TABLET PO (08:34)
[2023-10-06] MEDS: TRIAMCINOLONE ACET 0.1% CREAM 15 GM TUBE 1 APPLIC TOPICAL ×2 (08:35→21:09)
--- NOTE | 2023-10-06 10:41 | PM.IMPN ---
Progress Note: A&P Assessment and Plan (1) Pulmonary edema: Code(s): J81.1 - Chronic pulmonary edema Status: Acute Assessment and Plan: Probable acute and of chronic diastolic CHF exacerbation continue IV Lasix daily probably switch to oral Lasix in a.m. (2) Pulmonary embolism: Code(s): I26.99 - Other pulmonary embolism without acute cor pulmonale Status: Acute Assessment and Plan: Patient have IVC filter patient has history of subarachnoid hemorrhage in the past neurosurgery cleared the patient to have anticoagulation also the patient stated that his superintendent schools told him that he need to be on anticoagulation lifelong patient want to be on anticoagulation counseling was given on details regarding benefit risk patient wanted to proceed with anticoagulation drip was started patient want to be on Coumadin Patient denies black stool Currently on heparin drip and Coumadin daily INR follow-up with Heme-Onc as outpatient (3) Acute hypoxic respiratory failure: Code(s): J96.01 - Acute respiratory failure with hypoxia Status: Acute Assessment and Plan: Secondary to above IV Lasix full anticoagulation (4) Hypertension: Qualifiers: Hypertension type: essential hypertension Qualified Code(s): I10 - Essential (primary) hypertension Code(s): I10 - Essential (primary) hypertension Status: Chronic Assessment and Plan: Continue home medication (5) COPD (chronic obstructive pulmonary disease): Qualifiers: COPD type: unspecified COPD Qualified Code(s): J44.9 - Chronic obstructive pulmonary disease, unspecified Code(s): J44.9 - Chronic obstructive pulmonary disease, unspecified Status: Acute Assessment and Plan: Stable continue current treatment (6) Diabetes mellitus with neuropathy: Qualifiers: Diabetes mellitus type: type 2 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: with skilled nursing use Qualified Code(s): E11.40 - Type 2 diabetes mellitus with diabetic neuropathy, unspecified; Z79.4 - intermodal owner operator truck driver (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 Code(s): E11.40 - Type 2 diabetes mellitus with diabetic neuropathy, unspecified Status: Acute Assessment and Plan: Insulin sliding scale (7) Hyperlipidemia: Qualifiers: Hyperlipidemia type: mixed hyperlipidemia Qualified Code(s): E78.2 - Mixed hyperlipidemia Code(s): E78.5 - Hyperlipidemia, unspecified Status: Acute Assessment and Plan: Hyperlipidemia (8) Recurrent deep vein thrombosis (DVT): Code(s): I82.409 - Acute embolism and thrombosis of unspecified deep veins of unspecified lower extremity Status: Acute Assessment and Plan: Full anticoagulation benefit outweighed the risk Plan Anticipate discharge once INR therapeutic shortness of breath has improved expect discharged on 10/08/2019 Subjective Date/time seen: 10/06/23 10:41 Interval history: 82-year-old male with a past medical history subarachnoid hemorrhage, 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 The patient had been doing fairly well at home when yesterday he felt weak when trying to go to the bathroom.? His and son were with him and they sat him down on a chair when he started snoring.? He reports chest congestion but no cough or sputum production and mild shortness of breath but that may be due to his COPD.? He was recently discharged from [facility] with COVID and hypoxic respiratory failure treated with remdesivir dexamethasone azithromycin and ceftriaxone.? In [place] ER he was found to have leukocytosis at 16.[address] demonstrating acute nonocclusive bilateral lower lobe segmental PE with small clot burden and
[2023-10-06 12:02] LABS: Glucose Point of Care 142 mg/dl (65-105)
[2023-10-06] MEDS: DOXYCYCLINE 100 MG/NS 100 ML 100 MG/100 ML BAG IVPB (12:29)
[2023-10-06 16:16] LABS: INR 1.2; Prothrombin Time 15.8 Seconds (11.1-14.7)
[2023-10-06 16:24] LABS: Glucose Point of Care 129 mg/dl (65-105)
[2023-10-06] MEDS: MIDODRINE HCL 2.5 MG TABLET 5 MG PO (18:01)
[2023-10-06] MEDS: WARFARIN (*PBKC) 5 MG TABLET PO (18:02)
[2023-10-06 20:14] LABS: Glucose Point of Care 228 mg/dl (65-105)
--- NOTE | 2023-10-06 21:11 | ECG_ITS ---
Measurements Intervals [place] Rate: 67 P: 71 MO: 221 QRS: 47 QRSD: 93 T: 36 QT: 408 QTc: 431 Interpretive Statements SINUS RHYTHM WITH FIRST DEGREE AV BLOCK BORDERLINE ECG COMPARED TO ECG 10/04/2023 17:51:05 SINUS RHYTHM NOW PRESENT FIRST DEGREE AV BLOCK NOW PRESENT Electronically Signed On 10-07-2023 6:30:04 RUG INSPECTOR HELPER by Dani Cortez D.O.
[2023-10-06] MEDS: SENNA/DOCUSATE SODIUM TABLET 1 TAB PO (21:12)
[2023-10-06] MEDS: INSULIN GLARGINE (*BKC) 100 UNITS/ML 44 UNITS SUB-Q (21:16)
[2023-10-06] MEDS: INSULIN ASPART (*BKC) 100 UNITS/ML SUB-Q (21:17)
--- NOTE | 2023-10-06 21:48 | PC.NURSE ---
2148: Patient in sinus rhythm. EKG done to confirm. MD Garcia notified.
[2023-10-07] VITALS (17 sets, daily range): BP systolic 103–135; BP diastolic 50–98; PULSE 54–82; RESP 18; TEMP 36.3–36.6; O2SAT 93–97
[2023-10-07] MEDS: DOXYCYCLINE 100 MG/NS 100 ML 100 MG/100 ML BAG IVPB ×2 (00:06→11:26)
[2023-10-07 04:59] LABS: Basophils Absolute Auto 0.2 K/mm3 (0.0-0.1); Basophils Percent Auto 1.9 % (0.2-1.2); Eosinophils Absolute Auto 0.3 K/mm3 (0-0.3); Eosinophils Percent Auto 3.5 % (0-4.4); Hematocrit 47.8 % (42.0-52.0); Hemoglobin 15.3 g/dL (14.0-18.0); Immature Granulocyte Absolute 0.63 K/mm3 (0.00-0.031); Immature Granulocyte Percent A 7.2 % (0-0.5); Lymphocytes Absolute Auto 1.39 K/mm3 (0.9-3.2); Lymphocytes Percent Auto 15.8 % (18.3-44.2); Mean Corpuscular Hemoglobin 28.3 pg (26-34); Mean Corpuscular Volume 88.4 fl (80-100); Monocytes Absolute Auto 1.3 K/mm3 (0.1-0.6); Monocytes Percent Auto 15.3 % (2.6-8.5); Neutrophils Absolute Auto 4.9 K/mm3 (1.3-6.7); Neutrophils Percent Auto 56.3 % (45.5-73.1); Nucleated Red Blood Cells Perc 0.2 % (0.0-0.2); Platelet Count Result 237 k/mm3 (150-375); Red Blood Count 5.41 M/mm3 (4.6-6.20); Red Cell Distribution Width 19.9 % (11.5-14.5); White Blood Count 8.8 K/mm3 (4.5-10.0)
[2023-10-07 05:13] LABS: Alanine Aminotransferase 15 U/L (6-50); Albumin Level 2.7 g/dL (3.5-5.1); Alkaline Phosphatase 97 U/L (38-126); Anion Gap 1 mmol/L (8-16); Aspartate Amino Transferase 20 U/L (17-59); Bilirubin,Total 0.4 mg/dL (0.2-1.3); Blood Urea Nitrogen 20 mg/dL (9-20); Calcium 8.3 mg/dL (8.4-10.2); Carbon Dioxide 31 mmol/L (22-30); Chloride 108 mmol/L (98-107); Estimated CRCL calculation 61 ml/min; Estimated Glomerular Filt Rate 49; Glucose 125 mg/dL (65-110); INR 1.3; Potassium 3.4 mmol/L (3.4-5.0); Prothrombin Time 16.6 Seconds (11.1-14.7); Sodium 140 mmol/L (137-145)
[2023-10-07 05:17] LABS: Partial Thromboplastin Time 140.4 SECONDS (22.3-36.8)
[2023-10-07 05:28] LABS: Anisocytosis 1+ (NORMAL); Burr Cells 1+ (NORMAL); Ovalocytes 1+ (NORMAL); Platelet Estimate Adequate (Adequate); Poikilocytosis 2+ (NORMAL)
[2023-10-07 05:29] LABS: Schistocytes None Seen (NORMAL)
[2023-10-07] MEDS: LEVOTHYROXINE SODIUM 50 MCG TABLET PO (06:41)
[2023-10-07] MEDS: BACLOFEN 10 MG TABLET PO ×3 (06:41→21:21)
[2023-10-07] MEDS: PREGABALIN (*CRX) 75 MG CAPSULE 150 MG PO ×3 (06:41→21:20)
[2023-10-07] MEDS: FLUTICASONE/UMECLIDIN/VILANTER 200-62.5-25 MCG ELLIPTA 1 PUFF INHALATION (08:13)
[2023-10-07 08:24] LABS: Glucose Point of Care 100 mg/dl (65-105)
[2023-10-07] MEDS: TAMSULOSIN HCL 0.4 MG CAPSULE 0.8 MG PO (08:55)
[2023-10-07] MEDS: MIDODRINE HCL 2.5 MG TABLET 5 MG PO ×2 (08:57→12:08)
[2023-10-07] MEDS: PANTOPRAZOLE 40 MG TABLET PO (08:58)
[2023-10-07] MEDS: ATORVASTATIN 20 MG TABLET PO (08:58)
[2023-10-07] MEDS: METOPROLOL TARTRATE 25 MG TABLET PO ×2 (08:58→21:20)
[2023-10-07] MEDS: EMPAGLIFLOZIN 10 MG TABLET PO (08:58)
[2023-10-07] MEDS: TRIAMCINOLONE ACET 0.1% CREAM 15 GM TUBE 1 APPLIC TOPICAL ×2 (09:01→21:21)
[2023-10-07] MEDS: INSULIN ASPART (*BKC) 100 UNITS/ML 8 UNITS SUB-Q ×3 (09:01→16:55)
[2023-10-07] MEDS: LORATADINE 10 MG TABLET PO (09:01)
[2023-10-07] MEDS: AZELASTINE HCL NASAL 0.1% 137 MCG/SPR 30 ML BTL 2 SPRAY NASAL ×2 (09:01→21:19)
[2023-10-07 11:36] LABS: Glucose Point of Care 197 mg/dl (65-105)
[2023-10-07 13:44] LABS: Partial Thromboplastin Time 33.1 SECONDS (22.3-36.8)
--- NOTE | 2023-10-07 15:14 | PC.NURSE ---
Addendum entered by Niru Macario RN 10/07/23 15:49: Amended to state that heparin is continued at 13/hr, as documented Original Note: PTT came back at 33. Large drop noted. Inspected IV site. Pt noted pain, and appears slightly swollen. Notified Dr. Kenney that IV site is infiltrated and PTT has dropped. Orders received not to bolus Heparin. Will restart IV heparin in new IV site. Will continue the drip at 16/hr and will re-draw the PTT in 6 hours.
[2023-10-07 16:13] LABS: Glucose Point of Care 167 mg/dl (65-105)
--- NOTE | 2023-10-07 16:20 | PM.IMPN ---
Progress Note: A&P Assessment and Plan (1) Pulmonary edema: Code(s): J81.1 - Chronic pulmonary edema Status: Acute Assessment and Plan: Probable acute and of chronic diastolic CHF exacerbation continue IV Lasix daily probably switch to oral Lasix in a.m. (2) Pulmonary embolism: Code(s): I26.99 - Other pulmonary embolism without acute cor pulmonale Status: Acute Assessment and Plan: Patient have IVC filter patient has history of subarachnoid hemorrhage in the past neurosurgery cleared the patient to have anticoagulation also the patient stated that his construction engineer told him that he need to be on anticoagulation lifelong patient want to be on anticoagulation counseling was given on details regarding benefit risk patient wanted to proceed with anticoagulation drip was started patient want to be on Coumadin Patient denies black stool Currently on heparin drip and Coumadin daily INR follow-up with Heme-Onc as outpatient (3) Acute hypoxic respiratory failure: Code(s): J96.01 - Acute respiratory failure with hypoxia Status: Acute Assessment and Plan: Secondary to above IV Lasix full anticoagulation (4) Hypertension: Qualifiers: Hypertension type: essential hypertension Qualified Code(s): I10 - Essential (primary) hypertension Code(s): I10 - Essential (primary) hypertension Status: Chronic Assessment and Plan: Continue home medication (5) COPD (chronic obstructive pulmonary disease): Qualifiers: COPD type: unspecified COPD Qualified Code(s): J44.9 - Chronic obstructive pulmonary disease, unspecified Code(s): J44.9 - Chronic obstructive pulmonary disease, unspecified Status: Acute Assessment and Plan: Stable continue current treatment (6) Diabetes mellitus with neuropathy: Qualifiers: Diabetes mellitus type: type 2 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: with halfway use Qualified Code(s): E11.40 - Type 2 diabetes mellitus with diabetic neuropathy, unspecified; Z79.4 - extermination inspector (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 Code(s): E11.40 - Type 2 diabetes mellitus with diabetic neuropathy, unspecified Status: Acute Assessment and Plan: Insulin sliding scale (7) Hyperlipidemia: Qualifiers: Hyperlipidemia type: mixed hyperlipidemia Qualified Code(s): E78.2 - Mixed hyperlipidemia Code(s): E78.5 - Hyperlipidemia, unspecified Status: Acute Assessment and Plan: Hyperlipidemia (8) Recurrent deep vein thrombosis (DVT): Code(s): I82.409 - Acute embolism and thrombosis of unspecified deep veins of unspecified lower extremity Status: Acute Assessment and Plan: Full anticoagulation benefit outweighed the risk Plan Anticipate discharge once INR therapeutic shortness of breath has improved expect discharged on 10/08/2019 Time Spent With Patient Time with patient: 25 - 35 minutes Subjective Date/time seen: 10/07/23 16:20 Interval history: 82-year-old male with a past medical history subarachnoid hemorrhage, 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 The patient had been doing fairly well at home when yesterday he felt weak when trying to go to the bathroom.? His and son were with him and they sat him down on a chair when he started snoring.? He reports chest congestion but no cough or sputum production and mild shortness of breath but that may be due to his COPD.? He was recently discharged from [facility] with COVID and hypoxic respiratory failure treated with remdesivir dexamethasone azithromycin and ceftriaxone.? In [place] ER he was found to have leukocytosis at 16.[address] demonstrating acute nonocclusive b
[2023-10-07] MEDS: WARFARIN (*PBKC) 5 MG TABLET PO (16:56)
[2023-10-07] MEDS: HEPARIN SOD/D5W 100 UNITS/ML 25,000 UNITS/250 ML BAG 13 UNITS IV CONT (20:06)
[2023-10-07 20:43] LABS: Glucose Point of Care 130 mg/dl (65-105)
[2023-10-07] MEDS: AMOXICILLIN/CLAVULANATE K 875-125 MG TAB 1 TABLET PO (21:20)
[2023-10-07] MEDS: SENNA/DOCUSATE SODIUM TABLET 1 TAB PO (21:21)
[2023-10-07] MEDS: INSULIN GLARGINE (*BKC) 100 UNITS/ML 44 UNITS SUB-Q (21:21)
[2023-10-08] VITALS (21 sets, daily range): BP systolic 82–143; BP diastolic 33–84; PULSE 55–68; RESP 17–18; TEMP 36.2–36.6; O2SAT 88–99
[2023-10-08 01:44] LABS: Partial Thromboplastin Time 96.3 SECONDS (22.3-36.8)
[2023-10-08 05:24] LABS: Hematocrit 45.8 % (42.0-52.0); Hemoglobin 14.6 g/dL (14.0-18.0); Mean Corpuscular HGB Conc 31.9 g/dl (32-36); Mean Corpuscular Hemoglobin 28.1 pg (26-34); Mean Corpuscular Volume 88.2 fl (80-100); Mean Platelet Volume 12.2 fl (7.4-10.4); Platelet Count Result 200 k/mm3 (150-375); Red Blood Count 5.19 M/mm3 (4.6-6.20); Red Cell Distribution Width 19.2 % (11.5-14.5); White Blood Count 7.6 K/mm3 (4.5-10.0)
[2023-10-08] MEDS: LEVOTHYROXINE SODIUM 50 MCG TABLET PO (05:34)
[2023-10-08] MEDS: BACLOFEN 10 MG TABLET PO ×3 (05:34→21:05)
[2023-10-08] MEDS: PREGABALIN (*CRX) 75 MG CAPSULE 150 MG PO ×3 (05:34→21:05)
[2023-10-08 05:45] LABS: INR 1.5; Prothrombin Time 18.6 Seconds (11.1-14.7)
[2023-10-08 05:55] LABS: Alanine Aminotransferase 16 U/L (6-50); Albumin Level 2.6 g/dL (3.5-5.1); Alkaline Phosphatase 95 U/L (38-126); Anion Gap 2 mmol/L (8-16); Aspartate Amino Transferase 27 U/L (17-59); Bilirubin,Total 0.4 mg/dL (0.2-1.3); Blood Urea Nitrogen 18 mg/dL (9-20); Calcium 8.3 mg/dL (8.4-10.2); Carbon Dioxide 27 mmol/L (22-30); Chloride 107 mmol/L (98-107); Estimated CRCL calculation 72 ml/min; Estimated Glomerular Filt Rate 58; Glucose 115 mg/dL (65-110); Potassium 3.8 mmol/L (3.4-5.0); Sodium 136 mmol/L (137-145)
[2023-10-08 06:05] LABS: Eosinophils Absolute Manual 0.22 K/mm3 (0.02-0.5); Eosinophils Percent Manual 3 % (0-4); Lymphocytes Absolute Manual 1.67 K/mm3 (1.1-4.5); Monocytes Absolute Manual 0.38 K/mm3 (0.1-0.90); Monocytes Percent Manual 5 % (3-9); Neutrophils Percent Manual 70 % (46-73); Schistocytes None Seen (NORMAL); Total Cells Counted 100
[2023-10-08 06:06] LABS: Platelet Estimate Adequate (Adequate)
[2023-10-08 06:07] LABS: Acanthocytes 2+ (NORMAL); Anisocytosis 1+ (NORMAL); Ovalocytes 1+ (NORMAL)
[2023-10-08 08:06] LABS: Glucose Point of Care 104 mg/dl (65-105)
[2023-10-08] MEDS: INSULIN ASPART (*BKC) 100 UNITS/ML 8 UNITS SUB-Q ×3 (08:26→17:05)
[2023-10-08] MEDS: EMPAGLIFLOZIN 10 MG TABLET PO (09:01)
[2023-10-08] MEDS: AMOXICILLIN/CLAVULANATE K 875-125 MG TAB 1 TABLET PO ×2 (09:01→21:05)
[2023-10-08] MEDS: LORATADINE 10 MG TABLET PO (09:01)
[2023-10-08] MEDS: ATORVASTATIN 20 MG TABLET PO (09:01)
[2023-10-08] MEDS: METOPROLOL TARTRATE 25 MG TABLET PO ×2 (09:01→21:06)
[2023-10-08] MEDS: AZELASTINE HCL NASAL 0.1% 137 MCG/SPR 30 ML BTL 2 SPRAY NASAL ×2 (09:01→21:05)
[2023-10-08] MEDS: TAMSULOSIN HCL 0.4 MG CAPSULE 0.8 MG PO (09:02)
[2023-10-08] MEDS: TRIAMCINOLONE ACET 0.1% CREAM 15 GM TUBE 1 APPLIC TOPICAL ×2 (09:02→21:06)
[2023-10-08] MEDS: PANTOPRAZOLE 40 MG TABLET PO (09:02)
[2023-10-08] MEDS: guaiFENesin/DEXTROMETHORPHAN 10 ML UDC PO ×2 (10:00→21:06)
[2023-10-08] MEDS: FLUTICASONE/UMECLIDIN/VILANTER 200-62.5-25 MCG ELLIPTA 1 PUFF INHALATION (11:02)
[2023-10-08 11:17] LABS: Glucose Point of Care 188 mg/dl (65-105)
--- NOTE | 2023-10-08 13:47 | PM.IMPN ---
Progress Note: A&P Assessment and Plan (1) Pulmonary edema: Code(s): J81.1 - Chronic pulmonary edema Status: Acute Assessment and Plan: Probable acute and of chronic diastolic CHF exacerbation continue IV Lasix daily probably switch to oral Lasix in a.m. (2) Pulmonary embolism: Code(s): I26.99 - Other pulmonary embolism without acute cor pulmonale Status: Acute Assessment and Plan: Patient have IVC filter patient has history of subarachnoid hemorrhage in the past neurosurgery cleared the patient to have anticoagulation also the patient stated that his desktop technician told him that he need to be on anticoagulation lifelong patient want to be on anticoagulation counseling was given on details regarding benefit risk patient wanted to proceed with anticoagulation drip was started patient want to be on Coumadin Patient denies black stool Currently on heparin drip and Coumadin daily INR follow-up with Heme-Onc as outpatient (3) Acute hypoxic respiratory failure: Code(s): J96.01 - Acute respiratory failure with hypoxia Status: Acute Assessment and Plan: Secondary to above IV Lasix full anticoagulation (4) Hypertension: Qualifiers: Hypertension type: essential hypertension Qualified Code(s): I10 - Essential (primary) hypertension Code(s): I10 - Essential (primary) hypertension Status: Chronic Assessment and Plan: Continue home medication (5) COPD (chronic obstructive pulmonary disease): Qualifiers: COPD type: unspecified COPD Qualified Code(s): J44.9 - Chronic obstructive pulmonary disease, unspecified Code(s): J44.9 - Chronic obstructive pulmonary disease, unspecified Status: Acute Assessment and Plan: Stable continue current treatment (6) Diabetes mellitus with neuropathy: Qualifiers: Diabetes mellitus type: type 2 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 mellitus 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 insulin use: with half-way use Qualified Code(s): E11.40 - Type 2 diabetes mellitus with diabetic neuropathy, unspecified; Z79.4 - superintendent marine oil terminal (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 Code(s): E11.40 - Type 2 diabetes mellitus with diabetic neuropathy, unspecified Status: Acute Assessment and Plan: Insulin sliding scale (7) Hyperlipidemia: Qualifiers: Hyperlipidemia type: mixed hyperlipidemia Qualified Code(s): E78.2 - Mixed hyperlipidemia Code(s): E78.5 - Hyperlipidemia, unspecified Status: Acute Assessment and Plan: Hyperlipidemia (8) Recurrent deep vein thrombosis (DVT): Code(s): I82.409 - Acute embolism and thrombosis of unspecified deep veins of unspecified lower extremity Status: Acute Assessment and Plan: Full anticoagulation benefit outweighed the risk Plan Anticipate discharge once INR therapeutic shortness of breath has improved expect discharged on 10/08/2019 Time Spent With Patient Time: 10/08/23: Warfarin today; will DC once INR 2-3 with plans to f/u with [facility] and PCP for INR check Time with patient: 25 - 35 minutes Subjective Date/time seen: 10/08/23 13:47 Interval history: 82-year-old male with a past medical history subarachnoid hemorrhage, 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 The patient had been doing fairly well at home when yesterday he felt weak when trying to go to the bathroom.? His and son were with him and they sat him down on a chair when he started snoring.? He reports chest congestion but no cough or sputum production and mild shortness of breath but that may be due to his COPD.? He was recently discharged from [facility] with COVID and hypoxic respiratory failure treated with remdesivir dexamethasone azithromycin and ceftriax
[2023-10-08] MEDS: HEPARIN SOD/D5W 100 UNITS/ML 25,000 UNITS/250 ML BAG 13 UNITS IV CONT (14:55)
[2023-10-08 16:48] LABS: Glucose Point of Care 131 mg/dl (65-105)
[2023-10-08] MEDS: WARFARIN (*PBKC) 7.5 MG TABLET PO (17:05)
[2023-10-08 20:50] LABS: Glucose Point of Care 154 mg/dl (65-105)
[2023-10-08] MEDS: SENNA/DOCUSATE SODIUM TABLET 1 TAB PO (21:07)
[2023-10-08] MEDS: INSULIN GLARGINE (*BKC) 100 UNITS/ML 44 UNITS SUB-Q (21:07)
[2023-10-09] VITALS (21 sets, daily range): BP systolic 129–149; BP diastolic 62–80; PULSE 52–80; RESP 18; TEMP 36.2–36.6; O2SAT 90–100
[2023-10-09] MEDS: PREGABALIN (*CRX) 75 MG CAPSULE 150 MG PO ×3 (04:22→22:08)
[2023-10-09] MEDS: BACLOFEN 10 MG TABLET PO ×3 (04:22→22:08)
[2023-10-09] MEDS: guaiFENesin/DEXTROMETHORPHAN 10 ML UDC PO ×3 (04:22→22:15)
[2023-10-09] MEDS: LEVOTHYROXINE SODIUM 50 MCG TABLET PO (04:22)
[2023-10-09 04:33] LABS: Hematocrit 47.7 % (42.0-52.0); Hemoglobin 15.2 g/dL (14.0-18.0); Mean Corpuscular HGB Conc 31.9 g/dl (32-36); Mean Corpuscular Hemoglobin 28.1 pg (26-34); Mean Corpuscular Volume 88.3 fl (80-100); Mean Platelet Volume 12.4 fl (7.4-10.4); Platelet Count Result 236 k/mm3 (150-375); Red Cell Distribution Width 19.7 % (11.5-14.5)
[2023-10-09 04:46] LABS: INR 1.6; Prothrombin Time 20.5 Seconds (11.1-14.7)
[2023-10-09 04:49] LABS: Partial Thromboplastin Time 120.2 SECONDS (22.3-36.8)
[2023-10-09 04:52] LABS: Anion Gap 2 mmol/L (8-16); Blood Urea Nitrogen 15 mg/dL (9-20); Calcium 8.7 mg/dL (8.4-10.2); Carbon Dioxide 28 mmol/L (22-30); Chloride 107 mmol/L (98-107); Estimated CRCL calculation 78 ml/min; Estimated Glomerular Filt Rate > 60; Glucose 109 mg/dL (65-110); Potassium 4.1 mmol/L (3.4-5.0); Sodium 137 mmol/L (137-145)
[2023-10-09] MEDS: FLUTICASONE/UMECLIDIN/VILANTER 200-62.5-25 MCG ELLIPTA 1 PUFF INHALATION (07:50)
[2023-10-09] MEDS: ATORVASTATIN 20 MG TABLET PO (08:30)
[2023-10-09] MEDS: PANTOPRAZOLE 40 MG TABLET PO (08:30)
[2023-10-09] MEDS: EMPAGLIFLOZIN 10 MG TABLET PO (08:30)
[2023-10-09] MEDS: METOPROLOL TARTRATE 25 MG TABLET PO ×2 (08:30→22:07)
[2023-10-09] MEDS: TAMSULOSIN HCL 0.4 MG CAPSULE 0.8 MG PO (08:31)
[2023-10-09] MEDS: AMOXICILLIN/CLAVULANATE K 875-125 MG TAB 1 TABLET PO ×2 (08:31→22:07)
[2023-10-09] MEDS: LORATADINE 10 MG TABLET PO (08:31)
[2023-10-09] MEDS: TRIAMCINOLONE ACET 0.1% CREAM 15 GM TUBE 1 APPLIC TOPICAL ×2 (08:32→22:09)
[2023-10-09] MEDS: AZELASTINE HCL NASAL 0.1% 137 MCG/SPR 30 ML BTL 2 SPRAY NASAL ×2 (08:32→22:23)
[2023-10-09] MEDS: INSULIN ASPART (*BKC) 100 UNITS/ML 8 UNITS SUB-Q ×3 (08:34→18:01)
[2023-10-09] MEDS: HEPARIN SOD/D5W 100 UNITS/ML 25,000 UNITS/250 ML BAG 11 UNITS IV CONT (08:36)
[2023-10-09 08:42] LABS: Glucose Point of Care 106 mg/dl (65-105)
[2023-10-09] MEDS: EUCERIN CREAM 120 GM JAR 1 APPLIC TOPICAL ×2 (11:20→22:10)
[2023-10-09 11:37] LABS: Partial Thromboplastin Time 79.5 SECONDS (22.3-36.8)
[2023-10-09 12:39] LABS: Glucose Point of Care 129 mg/dl (65-105)
--- NOTE | 2023-10-09 17:23 | PM.IMPN ---
Progress Note: A&P Assessment and Plan (1) Pulmonary edema: Code(s): J81.1 - Chronic pulmonary edema Status: Acute Assessment and Plan: Probable acute and of chronic diastolic CHF exacerbation continue IV Lasix daily probably switch to oral Lasix in a.m. (2) Pulmonary embolism: Code(s): I26.99 - Other pulmonary embolism without acute cor pulmonale Status: Acute Assessment and Plan: Patient have IVC filter patient has history of subarachnoid hemorrhage in the past neurosurgery cleared the patient to have anticoagulation also the patient stated that his veterinary medicine scientist told him that he need to be on anticoagulation lifelong patient want to be on anticoagulation counseling was given on details regarding benefit risk patient wanted to proceed with anticoagulation drip was started patient want to be on Coumadin Patient denies black stool Currently on heparin drip and Coumadin daily INR follow-up with Heme-Onc as outpatient (3) Acute hypoxic respiratory failure: Code(s): J96.01 - Acute respiratory failure with hypoxia Status: Acute Assessment and Plan: Secondary to above IV Lasix full anticoagulation (4) Hypertension: Qualifiers: Hypertension type: essential hypertension Qualified Code(s): I10 - Essential (primary) hypertension Code(s): I10 - Essential (primary) hypertension Status: Chronic Assessment and Plan: Continue home medication (5) COPD (chronic obstructive pulmonary disease): Qualifiers: COPD type: unspecified COPD Qualified Code(s): J44.9 - Chronic obstructive pulmonary disease, unspecified Code(s): J44.9 - Chronic obstructive pulmonary disease, unspecified Status: Acute Assessment and Plan: Stable continue current treatment (6) Diabetes mellitus with neuropathy: Qualifiers: Diabetes mellitus type: type 2 Diabetes mellitus terminal makeup 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 insulin use: with retirement use Qualified Code(s): E11.40 - Type 2 diabetes mellitus with diabetic neuropathy, unspecified; Z79.4 - 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 Code(s): E11.40 - Type 2 diabetes mellitus with diabetic neuropathy, unspecified Status: Acute Assessment and Plan: Insulin sliding scale (7) Hyperlipidemia: Qualifiers: Hyperlipidemia type: mixed hyperlipidemia Qualified Code(s): E78.2 - Mixed hyperlipidemia Code(s): E78.5 - Hyperlipidemia, unspecified Status: Acute Assessment and Plan: Hyperlipidemia (8) Recurrent deep vein thrombosis (DVT): Code(s): I82.409 - Acute embolism and thrombosis of unspecified deep veins of unspecified lower extremity Status: Acute Assessment and Plan: Full anticoagulation benefit outweighed the risk 10/09/23: Awaiting therapeutic INR before DC Plan Anticipate discharge once INR therapeutic shortness of breath has improved expect discharged on 10/08/2023 10/09/23: INR 1.6 Time Spent With Patient Time with patient: 25 - 35 minutes Subjective Date/time seen: 10/09/23 17:23 Interval history: 82-year-old male with a past medical history subarachnoid hemorrhage, 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 The patient had been doing fairly well at home when yesterday he felt weak when trying to go to the bathroom.? His and son were with him and they sat him down on a chair when he started snoring.? He reports chest congestion but no cough or sputum production and mild shortness of breath but that may be due to his COPD.? He was recently discharged from [facility] with COVID and hypoxic respiratory failure treated with remdesivir dexamethasone azithromycin and ceftriaxone.? In [place] ER he was found to have leukocyto
[2023-10-09 17:25] LABS: Glucose Point of Care 93 mg/dl (65-105)
[2023-10-09] MEDS: WARFARIN (*PBKC) 10 MG TABLET PO (18:00)
[2023-10-09] MEDS: HEPARIN SODIUM 5,000 UNITS/ML VIAL 4500 UNITS IV PUSH (18:32)
[2023-10-09 20:04] LABS: Glucose Point of Care 218 mg/dl (65-105)
[2023-10-09] MEDS: SENNA/DOCUSATE SODIUM TABLET 1 TAB PO (22:07)
[2023-10-09] MEDS: INSULIN GLARGINE (*BKC) 100 UNITS/ML 44 UNITS SUB-Q (22:09)
[2023-10-10] VITALS (15 sets, daily range): BP systolic 118–147; BP diastolic 47–65; PULSE 53–66; RESP 16–18; TEMP 36.2–37.1; O2SAT 95–100
[2023-10-10 00:53] LABS: Partial Thromboplastin Time > 200.0 SECONDS (22.3-36.8)
[2023-10-10] MEDS: PREGABALIN (*CRX) 75 MG CAPSULE 150 MG PO ×3 (06:23→21:28)
[2023-10-10] MEDS: BACLOFEN 10 MG TABLET PO ×3 (06:23→21:28)
[2023-10-10] MEDS: LEVOTHYROXINE SODIUM 50 MCG TABLET PO (06:24)
[2023-10-10] MEDS: HEPARIN SOD/D5W 100 UNITS/ML 25,000 UNITS/250 ML BAG 10 UNITS IV CONT ×2 (06:25→17:12)
[2023-10-10] MEDS: FLUTICASONE/UMECLIDIN/VILANTER 200-62.5-25 MCG ELLIPTA 1 PUFF INHALATION (07:28)
[2023-10-10 08:38] LABS: Glucose Point of Care 127 mg/dl (65-105)
[2023-10-10] MEDS: AMOXICILLIN/CLAVULANATE K 875-125 MG TAB 1 TABLET PO (08:38)
[2023-10-10] MEDS: LORATADINE 10 MG TABLET PO (08:38)
[2023-10-10] MEDS: ATORVASTATIN 20 MG TABLET PO (08:38)
[2023-10-10] MEDS: EMPAGLIFLOZIN 10 MG TABLET PO (08:38)
[2023-10-10] MEDS: METOPROLOL TARTRATE 25 MG TABLET PO ×2 (08:39→21:27)
[2023-10-10] MEDS: TAMSULOSIN HCL 0.4 MG CAPSULE 0.8 MG PO (08:39)
[2023-10-10] MEDS: AZELASTINE HCL NASAL 0.1% 137 MCG/SPR 30 ML BTL 2 SPRAY NASAL ×2 (08:39→21:26)
[2023-10-10] MEDS: PANTOPRAZOLE 40 MG TABLET PO (08:39)
[2023-10-10 08:40] LABS: Alanine Aminotransferase 27 U/L (6-50); Albumin Level 3.2 g/dL (3.5-5.1); Alkaline Phosphatase 115 U/L (38-126); Anion Gap -1 mmol/L (8-16); Aspartate Amino Transferase 34 U/L (17-59); Bilirubin,Total 0.4 mg/dL (0.2-1.3); Blood Urea Nitrogen 14 mg/dL (9-20); Calcium 8.9 mg/dL (8.4-10.2); Carbon Dioxide 33 mmol/L (22-30); Chloride 106 mmol/L (98-107); Estimated CRCL calculation 64 ml/min; Estimated Glomerular Filt Rate 53; Glucose 122 mg/dL (65-110); Potassium 4.3 mmol/L (3.4-5.0); Sodium 138 mmol/L (137-145)
[2023-10-10] MEDS: EUCERIN CREAM 120 GM JAR 1 APPLIC TOPICAL ×2 (08:40→21:29)
[2023-10-10] MEDS: TRIAMCINOLONE ACET 0.1% CREAM 15 GM TUBE 1 APPLIC TOPICAL ×2 (08:40→21:28)
[2023-10-10] MEDS: INSULIN ASPART (*BKC) 100 UNITS/ML 8 UNITS SUB-Q ×3 (08:40→17:08)
[2023-10-10 08:47] LABS: Basophils Absolute Auto 0.2 K/mm3 (0.0-0.1); Basophils Percent Auto 1.7 % (0.2-1.2); Eosinophils Absolute Auto 0.4 K/mm3 (0-0.3); Eosinophils Percent Auto 4.5 % (0-4.4); Hematocrit 51.2 % (42.0-52.0); Hemoglobin 16.2 g/dL (14.0-18.0); Immature Granulocyte Absolute 0.48 K/mm3 (0.00-0.031); Immature Granulocyte Percent A 5.5 % (0-0.5); Lymphocytes Absolute Auto 1.43 K/mm3 (0.9-3.2); Lymphocytes Percent Auto 16.5 % (18.3-44.2); Mean Corpuscular HGB Conc 31.6 g/dl (32-36); Mean Corpuscular Volume 88.4 fl (80-100); Mean Platelet Volume 12.3 fl (7.4-10.4); Monocytes Absolute Auto 1.3 K/mm3 (0.1-0.6); Monocytes Percent Auto 14.5 % (2.6-8.5); Neutrophils Percent Auto 57.3 % (45.5-73.1); Nucleated Red Blood Cells Perc 0.2 % (0.0-0.2); Platelet Count Result 252 k/mm3 (150-375); Red Blood Count 5.79 M/mm3 (4.6-6.20); Red Cell Distribution Width 19.7 % (11.5-14.5); White Blood Count 8.7 K/mm3 (4.5-10.0)
[2023-10-10 08:50] LABS: INR 1.9; Partial Thromboplastin Time 87.9 SECONDS (22.3-36.8); Prothrombin Time 23.4 Seconds (11.1-14.7)
[2023-10-10 09:21] LABS: Platelet Estimate Adequate (Adequate)
[2023-10-10 09:22] LABS: Acanthocytes 2+ (NORMAL); Anisocytosis 1+ (NORMAL); Schistocytes None Seen (NORMAL)
--- NOTE | 2023-10-10 11:41 | WPDPN ---
Progress Note: A&P Assessment and Plan (1) Pneumonia due to COVID-19 virus: Code(s): U07.1 - COVID-19; J12.89 - Other viral pneumonia Status: Acute (2) Pulmonary edema: Code(s): J81.1 - Chronic pulmonary edema Status: Acute (3) Leukocytosis: Code(s): D72.829 - Elevated white blood cell count, unspecified Status: Acute (4) Pulmonary embolism: Code(s): I26.99 - Other pulmonary embolism without acute cor pulmonale Status: Acute (5) Heat rash: Code(s): L74.0 - Miliaria rubra Status: Acute Plan # acute PE -patient has IVC filter, history of subarachnoid hemorrhage. Subsequently seen Hematology. Now with the new PE he is agreeable to lifelong anticoagulation with Coumadin. Neurosurgery Buck recommended patient may be anticoagulated -warfarin chosen over NOAC due to history of severe anemia with Xarelto -anticoagulation: On heparin drip, bridging for Coumadin goal INR 2-3. Today INR 1.9 -PT and OT for weakness # atelectasis - antibiotic: Discontinue Augmentin, patient has been out of oxygen /-10/09 -guaifenesin DM for cough -incentive spirometer ordered -last month patient had COVID-19 -no leukocytosis, no fever, discontinue antibiotic # acute on chronic diastolic heart failure # pulmonary edema -diuresed with IV Lasix, switch to PO lasix 20mg -chest x-ray and CT scan was concerning for mild to moderate pulmonary edema # heat rash -patient has blanching erythema on his back, likely a heat rash -will continue supportive care #recent COVID 19 -diagnosed and treated prior to admission, resolved, off isolation # chronic conditions -essential hypertension: Metoprolol -COPD: P.r.n. albuterol -type 2 diabetes: Continue Lantus 44 units nightly, NovoLog 8 units t.i.d. a.c., sliding scale insulin, Accu-Cheks a.c. HS, hypoglycemia protocol, A1c. On Jardiance -hyperlipidemia: Lipitor -BPH: Flomax -neuropathy: Lyrica, baclofen for spasms -allergies: Claritin -hypothyroidism: Synthroid Diet: Diabetic diet DVT prophylaxis: Bridging warfarin with heparin drip GI prophylaxis: Protonix Code status: DNR Disposition: Downgrade from IMU to med [facility], then likely to rehab unit in 2-3 days Time Spent With Patient Time: 35 minutes Subjective Date/time seen: 10/10/23 11:41 Interval history: Patient seen examined. He is doing well no new complaints, no overnight events. INR up to 1.9, continue bridging Coumadin. Plan is for discharge to rehab. Of note he has a blanching erythematous rash on his back which is likely he rash. We discussed continue monitoring and using Eucerin cream. Patient encouraged to use incentive spirometer. For antibiotic is on p.o. Augmentin, but no sign of pneumonia. Patient denies fever, chills, nausea, vomiting, diarrhea, dyspnea. Review of Systems Review of Systems: 10 point ROS complete, negative other than what is specified in HPI. Exam Narrative: - GENERAL: Pleasant obese male in no acute distress - EYES: EOMI. Anicteric. - HENT: Moist mucous membranes. - LUNGS: Clear to auscultation bilaterally, no wheezing, rhonchi, or rales. Breathing comfortably on room air - CARDIOVASCULAR: Regular rate and rhythm. No murmur. No JVD. - ABDOMEN: Soft, non-tender and non-distended. No palpable masses. - EXTREMITIES: No edema. Peripheral pulses 2+. Non-tender. - NEUROLOGIC: No focal neurological deficits. CN II-XII grossly intact. - PSYCHIATRIC: Awake, Alert and oriented x 3. Appropriate mood and affect. - SKIN: On back patient has blanching erythema likely heat rash - LYMPH: No cervical lymphadenopathy. Objective Data Vital Signs Vital Signs: Vital Signs - 24 hr 10/09/23 12:00 10/09/23 12:00 10/09/23 16:18 Temperature 36.6 C Pulse Rate 80 58 L Respiratory Rate 18 Blood Pressure 129/64 Pulse Oximetry 100 Oxygen Delivery Room Air 10/09/23 14:00 10/09/23 16:00 10/09/23 16:00 Temperature Pulse
[2023-10-10] MEDS: INSULIN ASPART (*BKC) 100 UNITS/ML SUB-Q (11:55)
[2023-10-10 12:33] LABS: Glucose Point of Care 296 mg/dl (65-105)
--- NOTE | 2023-10-10 14:27 | PC.NURSE ---
This patient, Neal Amaro, was transferred to [facility] on 10/10/23 at 1428. Personal belongings sent with patient. Report given to RN. Appropriate documentation sent with patient.
--- NOTE | 2023-10-10 16:02 | PC.NURSE ---
Patient arrives on the unit by WC. Patient alert and oriented. Family at bedside. Ice water given. Cream applied to rash on back per patient and family request. Waiting on labs to titrate drip. Patient blind but hearing is intact for conversations. BLE edema without pain with palpation. Questions and concerns addressed with patient and family. Patient ambulated well with PT, verbal commands about directional changes followed very well.
[2023-10-10 16:16] LABS: Partial Thromboplastin Time 79.2 SECONDS (22.3-36.8)
[2023-10-10 16:48] LABS: Glucose Point of Care 116 mg/dl (65-105)
[2023-10-10] MEDS: WARFARIN (*PBKC) 10 MG TABLET PO (17:40)
[2023-10-10] MEDS: guaiFENesin/DEXTROMETHORPHAN 10 ML UDC PO (17:57)
[2023-10-10 20:12] LABS: Glucose Point of Care 179 mg/dl (65-105)
[2023-10-10] MEDS: SENNA/DOCUSATE SODIUM TABLET 1 TAB PO (21:26)
[2023-10-10] MEDS: INSULIN GLARGINE (*BKC) 100 UNITS/ML 44 UNITS SUB-Q (21:27)
[2023-10-10 23:15] LABS: Partial Thromboplastin Time 66.3 SECONDS (22.3-36.8)
[2023-10-11] VITALS (8 sets, daily range): BP systolic 115–139; BP diastolic 59–69; PULSE 54–67; RESP 16–20; TEMP 36–37; O2SAT 96–99
--- NOTE | 2023-10-11 03:07 | PC.NURSE ---
Daylight Savings Time For Daylight Savings Time Ending in the Fall - Clocks are moved back. For Daylight Savings Time Beginning in the Spring - Clocks are moved ahead. For [facility], the time of change occurs at 0200 hrs. Time is taken from the seismic prospecting observer. This entry on the patient's chart recognizes the change in time reflected during documentation. Example: 2 entries for vital signs may be charted for 0200 hrs.
[2023-10-11 05:47] LABS: Basophils Absolute Auto 0.1 K/mm3 (0.0-0.1); Basophils Percent Auto 0.8 % (0.2-1.2); Eosinophils Absolute Auto 0.4 K/mm3 (0-0.3); Eosinophils Percent Auto 5.3 % (0-4.4); Hemoglobin 14.9 g/dL (14.0-18.0); Immature Granulocyte Absolute 0.38 K/mm3 (0.00-0.031); Immature Granulocyte Percent A 5.1 % (0-0.5); Lymphocytes Absolute Auto 1.37 K/mm3 (0.9-3.2); Lymphocytes Percent Auto 18.5 % (18.3-44.2); Mean Corpuscular HGB Conc 31.7 g/dl (32-36); Mean Corpuscular Volume 88.2 fl (80-100); Mean Platelet Volume 11.7 fl (7.4-10.4); Monocytes Absolute Auto 1.1 K/mm3 (0.1-0.6); Monocytes Percent Auto 14.4 % (2.6-8.5); Neutrophils Absolute Auto 4.1 K/mm3 (1.3-6.7); Neutrophils Percent Auto 55.9 % (45.5-73.1); Platelet Count Result 245 k/mm3 (150-375); Red Blood Count 5.33 M/mm3 (4.6-6.20); Red Cell Distribution Width 19.4 % (11.5-14.5); White Blood Count 7.4 K/mm3 (4.5-10.0)
[2023-10-11 05:57] LABS: Alanine Aminotransferase 26 U/L (6-50); Albumin Level 2.9 g/dL (3.5-5.1); Alkaline Phosphatase 95 U/L (38-126); Anion Gap 0 mmol/L (8-16); Aspartate Amino Transferase 31 U/L (17-59); Bilirubin,Total 0.4 mg/dL (0.2-1.3); Blood Urea Nitrogen 15 mg/dL (9-20); Calcium 8.7 mg/dL (8.4-10.2); Carbon Dioxide 30 mmol/L (22-30); Chloride 109 mmol/L (98-107); Estimated CRCL calculation 81 ml/min; Estimated Glomerular Filt Rate > 60; Glucose 96 mg/dL (65-110); Potassium 4.1 mmol/L (3.4-5.0); Sodium 139 mmol/L (137-145)
[2023-10-11 06:03] LABS: INR 2.3; Prothrombin Time 27.5 Seconds (11.1-14.7)
[2023-10-11 06:05] LABS: Partial Thromboplastin Time 108.8 SECONDS (22.3-36.8)
[2023-10-11] MEDS: HEPARIN SOD/D5W 100 UNITS/ML 25,000 UNITS/250 ML BAG 8 UNITS IV CONT ×2 (06:30→09:05)
[2023-10-11] MEDS: LEVOTHYROXINE SODIUM 50 MCG TABLET PO (06:30)
[2023-10-11] MEDS: PREGABALIN (*CRX) 75 MG CAPSULE 150 MG PO ×3 (06:30→21:38)
[2023-10-11] MEDS: BACLOFEN 10 MG TABLET PO ×3 (06:30→21:38)
[2023-10-11 08:32] LABS: Glucose Point of Care 80 mg/dl (65-105)
[2023-10-11] MEDS: FLUTICASONE/UMECLIDIN/VILANTER 200-62.5-25 MCG ELLIPTA 1 PUFF INHALATION (08:48)
[2023-10-11] MEDS: ATORVASTATIN 20 MG TABLET PO (09:02)
[2023-10-11] MEDS: PANTOPRAZOLE 40 MG TABLET PO (09:02)
[2023-10-11] MEDS: EMPAGLIFLOZIN 10 MG TABLET PO (09:02)
[2023-10-11] MEDS: METOPROLOL TARTRATE 25 MG TABLET PO ×2 (09:02→21:38)
[2023-10-11] MEDS: LORATADINE 10 MG TABLET PO (09:02)
[2023-10-11] MEDS: TAMSULOSIN HCL 0.4 MG CAPSULE 0.8 MG PO (09:02)
[2023-10-11] MEDS: AZELASTINE HCL NASAL 0.1% 137 MCG/SPR 30 ML BTL 2 SPRAY NASAL ×2 (09:03→21:38)
[2023-10-11] MEDS: TRIAMCINOLONE ACET 0.1% CREAM 15 GM TUBE 1 APPLIC TOPICAL ×2 (09:03→21:39)
[2023-10-11] MEDS: FUROSEMIDE 20 MG TABLET PO (09:03)
[2023-10-11] MEDS: EUCERIN CREAM 120 GM JAR 1 APPLIC TOPICAL ×2 (09:04→21:39)
[2023-10-11 11:46] LABS: Glucose Point of Care 168 mg/dl (65-105)
[2023-10-11 12:30] LABS: Partial Thromboplastin Time 57.9 SECONDS (22.3-36.8)
[2023-10-11] MEDS: INSULIN ASPART (*BKC) 100 UNITS/ML 8 UNITS SUB-Q ×2 (12:30→16:24)
[2023-10-11] MEDS: HEPARIN SODIUM 5,000 UNITS/ML VIAL 4500 UNITS IV PUSH (12:41)
--- NOTE | 2023-10-11 14:38 | PM.IMPN ---
Progress Note: A&P Assessment and Plan (1) Heat rash: Code(s): L74.0 - Miliaria rubra Status: Acute (2) Pulmonary edema: Code(s): J81.1 - Chronic pulmonary edema Status: Acute (3) Leukocytosis: Code(s): D72.829 - Elevated white blood cell count, unspecified Status: Acute (4) Pulmonary embolism: Code(s): I26.99 - Other pulmonary embolism without acute cor pulmonale Status: Acute (5) Chronic deep vein thrombosis (DVT): Code(s): I82.509 - Chronic embolism and thrombosis of unspecified deep veins of unspecified lower extremity Status: Acute (6) Weakness of both lower extremities: Code(s): R29.898 - Other symptoms and signs involving the musculoskeletal system Status: Acute Plan # acute PE -patient has IVC filter, history of subarachnoid hemorrhage.? Subsequently seen Hematology.? Now with the new PE he is agreeable to lifelong anticoagulation with Coumadin.? Neurosurgery Buck recommended patient may be anticoagulated -warfarin chosen over NOAC due to history of severe anemia with Xarelto -anticoagulation: On heparin drip for bridging, Coumadin at goal at INR 2-3.? Today INR 2.3 -PT and OT for weakness # atelectasis - antibiotic:? Discontinue Augmentin, patient has been out of oxygen /-10/09 -guaifenesin DM for cough -incentive spirometer ordered -last month patient had COVID-19 -no leukocytosis, no fever, discontinue antibiotic # acute on chronic diastolic heart failure # pulmonary edema -diuresed with IV Lasix, switch to PO lasix 20mg -chest x-ray and CT scan was concerning for mild to moderate pulmonary edema # heat rash, resolved -patient has blanching erythema on his back, likely a heat rash -will continue supportive care #recent COVID 19 -diagnosed and treated prior to admission, resolved, off isolation # chronic conditions -essential hypertension:? Metoprolol -COPD:? P.r.n. albuterol -type 2 diabetes:? Continue Lantus 44 units nightly, NovoLog 8 units t.i.d. a.c., sliding scale insulin, Accu-Cheks a.c. HS, hypoglycemia protocol, A1c.? On Jardiance -hyperlipidemia:? Lipitor -BPH: Flomax -neuropathy:? Lyrica, baclofen for spasms -allergies: Claritin -hypothyroidism: Synthroid Diet:? Diabetic diet DVT prophylaxis:? warfarin GI prophylaxis:?Protonix Code status:??DNR Disposition:??med tele, medically stable for discharge to rehab unit Time Spent With Patient Time: 30 minutes Subjective Date/time seen: 10/11/23 14:38 Interval history: Patient seen examined. No overnight events, no new concerns. INR at goal 2.3. Patient is medically stable for discharge to swing bed. He denies fever, chills, nausea vomiting, diarrhea. Review of Systems Review of Systems: 10 point ROS complete, negative other than what is specified in HPI. Exam Narrative: - GENERAL:? Pleasant obese male in no acute distress - EYES: EOMI. Anicteric. - HENT: Moist mucous membranes. - LUNGS: Clear to auscultation bilaterally, no wheezing, rhonchi, or rales.? Breathing comfortably on room air - CARDIOVASCULAR: Regular rate and rhythm. No murmur. No JVD. - ABDOMEN: Soft, non-tender and non-distended. No palpable masses. - EXTREMITIES: No edema. Peripheral pulses 2+. Non-tender. - NEUROLOGIC: No focal neurological deficits. CN II-XII grossly intact. - PSYCHIATRIC: Awake, Alert and oriented x 3. Appropriate mood and affect. - SKIN:? rash resolved - LYMPH: No cervical lymphadenopathy. Objective Data Vital Signs Vital Signs: Vital Signs - 24 hr 10/10/23 16:00 10/10/23 16:00 10/10/23 19:43 Temperature 36.2 C L 37.0 C Pulse Rate 62 63 63 Respiratory Rate 16 16 Blood Pressure 139/60 118/64 Pulse Oximetry 99 97 Oxygen Delivery 10/10/23 20:00 10/10/23 20:00 10/10/23 21:27 Temperature Pulse Rate 58 L 58 L Respiratory Rate Blood Pressure Pulse Oximetry Oxygen Delivery Room Air 10/11/23 00:00 10/11/23 04:22 10/11/23 0
[2023-10-11 15:46] LABS: Glucose Point of Care 137 mg/dl (65-105)
[2023-10-11] MEDS: WARFARIN (*PBKC) 10 MG TABLET PO (16:26)
[2023-10-11] MEDS: guaiFENesin/DEXTROMETHORPHAN 10 ML UDC PO (17:22)
[2023-10-11 19:23] LABS: Partial Thromboplastin Time 107.8 SECONDS (22.3-36.8)
[2023-10-11] MEDS: SENNA/DOCUSATE SODIUM TABLET 1 TAB PO (21:38)
[2023-10-11] MEDS: INSULIN GLARGINE (*BKC) 100 UNITS/ML 44 UNITS SUB-Q (21:38)
[2023-10-12] VITALS (7 sets, daily range): BP systolic 134–161; BP diastolic 63–79; PULSE 55–66; RESP 20; TEMP 36.1–36.4; O2SAT 95–99
[2023-10-12 00:02] LABS: Glucose Point of Care 114 mg/dl (65-105)
[2023-10-12 02:31] LABS: Partial Thromboplastin Time 52.3 SECONDS (22.3-36.8)
[2023-10-12] MEDS: HEPARIN SODIUM 5,000 UNITS/ML VIAL 9000 UNITS IV PUSH (02:59)
[2023-10-12] MEDS: PREGABALIN (*CRX) 75 MG CAPSULE 150 MG PO ×2 (06:45→15:15)
[2023-10-12] MEDS: BACLOFEN 10 MG TABLET PO ×2 (06:45→15:15)
[2023-10-12] MEDS: LEVOTHYROXINE SODIUM 50 MCG TABLET PO (06:45)
[2023-10-12 08:34] LABS: Glucose Point of Care 102 mg/dl (65-105)
[2023-10-12] MEDS: FLUTICASONE/UMECLIDIN/VILANTER 200-62.5-25 MCG ELLIPTA 1 PUFF INHALATION (08:41)
[2023-10-12] MEDS: INSULIN ASPART (*BKC) 100 UNITS/ML 8 UNITS SUB-Q ×2 (09:15→12:27)
[2023-10-12] MEDS: LORATADINE 10 MG TABLET PO (09:16)
[2023-10-12] MEDS: METOPROLOL TARTRATE 25 MG TABLET PO (09:16)
[2023-10-12] MEDS: TAMSULOSIN HCL 0.4 MG CAPSULE 0.8 MG PO (09:16)
[2023-10-12] MEDS: FUROSEMIDE 20 MG TABLET PO (09:16)
[2023-10-12] MEDS: PANTOPRAZOLE 40 MG TABLET PO (09:16)
[2023-10-12] MEDS: EMPAGLIFLOZIN 10 MG TABLET PO (09:16)
[2023-10-12] MEDS: ATORVASTATIN 20 MG TABLET PO (09:16)
[2023-10-12] MEDS: EUCERIN CREAM 120 GM JAR 1 APPLIC TOPICAL (09:16)
[2023-10-12] MEDS: TRIAMCINOLONE ACET 0.1% CREAM 15 GM TUBE 1 APPLIC TOPICAL (09:17)
[2023-10-12 09:26] LABS: Basophils Absolute Auto 0.1 K/mm3 (0.0-0.1); Basophils Percent Auto 0.8 % (0.2-1.2); Eosinophils Absolute Auto 0.4 K/mm3 (0-0.3); Hematocrit 49.2 % (42.0-52.0); Hemoglobin 15.8 g/dL (14.0-18.0); Immature Granulocyte Absolute 0.34 K/mm3 (0.00-0.031); Immature Granulocyte Percent A 4.1 % (0-0.5); Mean Corpuscular HGB Conc 32.1 g/dl (32-36); Mean Corpuscular Hemoglobin 28.3 pg (26-34); Mean Corpuscular Volume 88.2 fl (80-100); Monocytes Absolute Auto 1.1 K/mm3 (0.1-0.6); Monocytes Percent Auto 13.6 % (2.6-8.5); Neutrophils Absolute Auto 4.4 K/mm3 (1.3-6.7); Neutrophils Percent Auto 52.5 % (45.5-73.1); Nucleated Red Blood Cells Perc 0.2 % (0.0-0.2); Platelet Count Result 227 k/mm3 (150-375); Red Blood Count 5.58 M/mm3 (4.6-6.20); Red Cell Distribution Width 19.4 % (11.5-14.5); White Blood Count 8.3 K/mm3 (4.5-10.0)
[2023-10-12 09:35] LABS: INR 3.1; Prothrombin Time 34.7 Seconds (11.1-14.7)
[2023-10-12 09:58] LABS: Partial Thromboplastin Time > 200.0 SECONDS (22.3-36.8)
[2023-10-12 10:40] LABS: Alanine Aminotransferase 30 U/L (6-50); Albumin Level 2.9 g/dL (3.5-5.1); Alkaline Phosphatase 101 U/L (38-126); Anion Gap 1 mmol/L (8-16); Aspartate Amino Transferase 38 U/L (17-59); Bilirubin,Total 0.5 mg/dL (0.2-1.3); Blood Urea Nitrogen 17 mg/dL (9-20); Calcium 8.6 mg/dL (8.4-10.2); Carbon Dioxide 32 mmol/L (22-30); Chloride 103 mmol/L (98-107); Estimated CRCL calculation 74 ml/min; Estimated Glomerular Filt Rate > 60; Glucose 195 mg/dL (65-110); Sodium 136 mmol/L (137-145)
[2023-10-12 11:52] LABS: Glucose Point of Care 177 mg/dl (65-105)
[2023-10-12] MEDS: AZELASTINE HCL NASAL 0.1% 137 MCG/SPR 30 ML BTL 2 SPRAY NASAL (12:27)
--- NOTE | 2023-10-12 12:31 | PM.DS ---
DS: Admitting Diagnosis Discharge Date 10/12/23 Admitting Diagnosis Acute PE, AFib with RVR DS: Discharge Diagnosis Discharge Diagnosis (1) Heat rash: Code(s): L74.0 - Miliaria rubra Status: Acute (2) Pulmonary edema: Code(s): J81.1 - Chronic pulmonary edema Status: Acute (3) Leukocytosis: Code(s): D72.829 - Elevated white blood cell count, unspecified Status: Acute (4) Pulmonary embolism: Code(s): I26.99 - Other pulmonary embolism without acute cor pulmonale Status: Acute (5) Chronic deep vein thrombosis (DVT): Code(s): I82.509 - Chronic embolism and thrombosis of unspecified deep veins of unspecified lower extremity Status: Acute (6) Weakness of both lower extremities: Code(s): R29.898 - Other symptoms and signs involving the musculoskeletal system Status: Acute Plan # acute PE -patient has IVC filter, history of subarachnoid hemorrhage.? Subsequently seen Hematology.? Now with the new PE he is agreeable to lifelong anticoagulation with Coumadin.? Neurosurgery Buck recommended patient may be anticoagulated -warfarin chosen over NOAC due to history of severe anemia with Xarelto -anticoagulation: On heparin drip for bridging, Coumadin at goal at INR 2-3 -resuming previous warfarin regimen 5mg daily except 6mg on Thursday and Thursday -PT and OT for weakness # atelectasis - antibiotic:? Discontinue Augmentin, patient has been out of oxygen 10/03-10/09 -guaifenesin DM for cough -incentive spirometer ordered -last month patient had COVID-19 -no leukocytosis, no fever, discontinue antibiotic # acute on chronic diastolic heart failure # pulmonary edema -diuresed with IV Lasix, switch to PO lasix 20mg on discharge -chest x-ray and CT scan was concerning for mild to moderate pulmonary edema # heat rash, resolved -patient has blanching erythema on his back, likely a heat rash -will continue supportive care #recent COVID 19 -diagnosed and treated prior to admission, resolved, off isolation # chronic conditions -essential hypertension:? Metoprolol -COPD:? P.r.n. albuterol -type 2 diabetes:? Continue Lantus 44 units nightly, NovoLog 8 units t.i.d. a.c., sliding scale insulin, Accu-Cheks a.c. HS, hypoglycemia protocol, A1c.? On Jardiance -hyperlipidemia:? Lipitor -BPH: Flomax -neuropathy:? Lyrica, baclofen for spasms -allergies: Claritin -hypothyroidism: Synthroid Diet:? Diabetic diet DVT prophylaxis:? 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 He was found to have an acute PE treated with heparin drip and started on warfarin. Patient will be on warfarin 5 mg daily except Wednesdays and Sundays at 6 mg. For safe with RVR he was temporarily increased to metoprolol 25 mg twice daily however he had some bradycardia, he will resume his home regimen of metoprolol 12.5 mg b.i.d. and flecainide b.i.d.. Patient work with Physical therapy and recommendation for swing bed for ongoing therapy. During hospitalization he had atelectasis treated with incentive spirometer. He has some pulmonary edema and acute on chronic diastolic heart failure sure with IV Lasix and will be discharged on p.o. Lasix 20 mg. He developed a heat rash which improves with supportive care. Time of discharge patient's labs are stable, vitals stable, patient is stable for discharge to swing bed. Patient understands and agrees with plan. He follow up his PCP in 1 week. Status at Discharge Cognitive/behavioral status at discharge: baseline Time Spent with Luna
[2023-10-12 16:58] LABS: Glucose Point of Care 124 mg/dl (65-105)
== END 2023-10-12 15:45 | disposition swing bed (61) | DRG 175 ==
LOC: ANHED 18:18 → ANHIMU 20:38 → ANH2MED 10-10 13:06
PROVIDERS: Emergency Medicine; Internal Medicine; Student in an Organized Health Care Education/Training Program; Admitting Provider General Practice; Emergency Provider Physician Assistant; PCP Family Medicine; Visit Provider General Practice
DX: I26.99 Other pulmonary embolism without acute cor pulmonale (principal); I50.33 Acute on chronic diastolic (congestive) heart failure; J96.01 Acute respiratory failure with hypoxia; I13.0 Hypertensive heart and chronic kidney disease with heart failure and stage 1 through stage 4 chronic kidney disease, or unspecified chronic kidney disease; I48.20 Chronic atrial fibrillation, unspecified; J98.11 Atelectasis; N18.2 Chronic kidney disease, stage 2 (mild); J44.9 Chronic obstructive pulmonary disease, unspecified; E11.40 Type 2 diabetes mellitus with diabetic neuropathy, unspecified; E11.22 Type 2 diabetes mellitus with diabetic chronic kidney disease; E78.00 Pure hypercholesterolemia, unspecified; E03.9 Hypothyroidism, unspecified; L74.0 Miliaria rubra; N40.0 Benign prostatic hyperplasia without lower urinary tract symptoms; Z96.653 Presence of artificial knee joint, bilateral; Z20.822 Contact with and (suspected) exposure to COVID-19; Z86.718 Personal history of other venous thrombosis and embolism; Z79.01 Long term (current) use of anticoagulants; Z79.2 Long term (current) use of antibiotics; Z87.891 Personal history of nicotine dependence; Z90.81 Acquired absence of spleen; Z86.16 Personal history of COVID-19
CPT/HCPCS: 36415; 71045; 71275; 80048; 80053; 81001; 82948; 83735; 83880; 84145; 84484; 85025; 85027; 85610; 85730; 87070; 87205; 87637; 93005; 94640; 96361; 96365; 96366; 96367; 96368; 96374; 96375; 96376; 97110; 97116; 97161; 97165; 97530; 97535; 99285; A9270; G0378; J0696; J1644; J1815; J1940; J7030; Q9967

== ENCOUNTER 2023-10-12 16:20 | Inpatient (IN) | payer MEDICARE, SELFPAY ==
[2023-10-12 16:20] VITALS: BP 136/65; PULSE 57; RESP 18; TEMP 35.9; O2SAT 95; BMI 44.0
--- NOTE | 2023-10-12 16:25 | ADMGEN ---
This patient, Neal Amaro, was admitted to 2nd Floor Room 208-1. Patient/family oriented to hospital policies and general routines including ID bracelet, bed and alarms, visiting hours, pain management, procedures, bathroom and other care routines, personal items, smoking policy, room service/diet, and visiting hours. Information on how to activate the Rapid Response Team has been discussed. Patient/Family are encouraged to report perceived risks to care and to ask questions if they do not understand what they are told or what they should do.
--- NOTE | 2023-10-12 19:03 | PM.IMHP ---
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 He and his report that he became very weak and was unable to get up from a chair. He had sonorous respirations and was difficult to arouse at times. He had recently been at [facility] for COVID and hypoxic respiratory failure. On this admission he was found to have a leukocytosis of 16.[address] chest demonstrating acute, nonocclusive bilateral lower lobe segmental PE with small clot burden and no evidence of right heart strain. He was admitted in this setting for treatment of PE and initiation of anti-coagulation. ?During hospitalization he had atelectasis treated with incentive spirometer.? He has some pulmonary edema and acute on chronic diastolic heart failure sure with IV Lasix and will be discharged on p.o. Lasix 20 mg.? He developed a heat rash which improves with supportive care. He presents to [facility] today for swing bed admission. On assessment he appears well, in no acute distress. He states his biggest complaints are generalized weakness and a non-productive cough. When asked why he had not been on his coumadin prior to admission, he stated that he had a subarachnoid hemorrhage in July after falling out of bed. He was sent to [place] and during that hospitalization his Coumadin was stopped. He tried to get it restarted earlier in September. He normally is ambulatory with a walker. He lives with his , Nata who is present during my visit. I discussed provider expectations during swing bed admission, explaining that a provider will see them weekly unless they have new concerns. Review of Systems Review of Systems: All systems reviewed & are unremarkable except as noted in HPI and below [facility] Past Medical History Medical History (Updated 10/12/23 @ 19:45 by Gita Thomas APRN) Acute exacerbation of chronic obstructive airways disease Ankle fracture, bimalleolar, closed Ankle syndesmosis disruption Atrial fibrillation BPH (benign prostatic hyperplasia) Chronic antibiotic suppression Chronic anticoagulation Constipation COPD (chronic obstructive pulmonary disease) Diabetes mellitus with neuropathy High cholesterol History of deep vein thrombosis (DVT) of lower extremity History of hemorrhoids History of pulmonary embolism Hypertension Hypothyroidism determined by thyroid function test Infection of spine Left ankle pain Olecranon bursitis of right elbow Osteomyelitis, chronic Pneumonia due to COVID-19 virus Recurrent deep vein thrombosis (DVT) Right arm pain Rotator cuff arthropathy of right shoulder Rupture of left Achilles tendon SOB (shortness of breath) Spleen absent Vision changes Weakness of both lower extremities Surgical History Surgical History H/O bilateral cataract extraction H/O colonoscopy with polypectomy H/O splenectomy H/O total knee replacement Bilaterally History of back surgery x2 ([facility]), x1 ([place] [facility]) History of embolic filter insertion History of pancreatic surgery Removal of pancreatic mass (Heber) Hx of hernia repair S/P rotator cuff repair Total knee replacement status Family History Family History Grandparent Diabetes mellitus Father Family history of cardiovascular disease Intracranial aneurysm Mother Dvt femoral (deep venous thrombosis) Sibling Throat cancer Sister Acute myocardial infarction Brother Social History Social History Social His
[2023-10-12 20:00] VITALS: PULSE 61; RESP 18; O2SAT 95
[2023-10-12] MEDS: WARFARIN (*PBKC) 5 MG TABLET PO (20:02)
[2023-10-12] MEDS: AZELASTINE HCL NASAL 0.1% 137 MCG/SPR 30 ML BTL 2 SPRAY NASAL (21:37)
[2023-10-12 21:38] VITALS: PULSE 61
[2023-10-12] MEDS: METOPROLOL TARTRATE 12.5 MG TABLET PO (21:38)
[2023-10-12] MEDS: BACLOFEN 10 MG TABLET PO (21:39)
[2023-10-12] MEDS: INSULIN GLARGINE (*BKC) 1,000 UNITS/10 ML VIAL 44 UNITS SUB-Q (21:39)
[2023-10-12] MEDS: SENNA/DOCUSATE SODIUM TABLET 1 TAB PO (21:39)
[2023-10-12 21:55] VITALS: PULSE 61
[2023-10-12] MEDS: FLECAINIDE ACETATE 50 MG TABLET PO (21:55)
[2023-10-12] MEDS: DOCUSATE SODIUM LIQ 100 MG/10 ML UDC 50 MG PO (21:55)
[2023-10-12] MEDS: TRIAMCINOLONE ACET 0.1% CREAM 15 GM TUBE 1 APPLIC TOPICAL (21:55)
[2023-10-13] VITALS (8 sets, daily range): BP systolic 123–140; BP diastolic 64–86; PULSE 61–66; RESP 18–20; TEMP 35.8–36.1; O2SAT 94–96
[2023-10-13] MEDS: PREGABALIN (*CRX) 50 MG CAPSULE 150 MG PO ×3 (05:36→21:13)
[2023-10-13] MEDS: LEVOTHYROXINE SODIUM 50 MCG TABLET PO (05:36)
[2023-10-13] MEDS: BACLOFEN 10 MG TABLET PO ×3 (05:36→21:14)
[2023-10-13 05:58] LABS: INR 4.7; Prothrombin Time 45.7 Seconds (9.50-12.10)
[2023-10-13] MEDS: METOPROLOL TARTRATE 12.5 MG TABLET PO ×2 (09:09→21:14)
[2023-10-13] MEDS: FUROSEMIDE 20 MG TABLET PO (09:09)
[2023-10-13] MEDS: FLECAINIDE ACETATE 50 MG TABLET PO ×2 (09:10→21:14)
[2023-10-13] MEDS: EMPAGLIFLOZIN 10 MG TABLET PO (09:10)
[2023-10-13] MEDS: ATORVASTATIN 10 MG TABLET 20 MG PO (09:10)
[2023-10-13] MEDS: FLUTICASONE/UMECLIDIN/VILANTER 100-62.5-25 MCG ELLIPTA 1 PUFF INHALATION (09:10)
[2023-10-13] MEDS: ACIDOPHILUS/BULGARICUS CHEWABLE TABLET 1 TABLET PO (09:10)
[2023-10-13] MEDS: LORATADINE 10 MG TABLET PO (09:10)
[2023-10-13] MEDS: PANTOPRAZOLE 40 MG TABLET PO (09:10)
[2023-10-13] MEDS: TAMSULOSIN HCL 0.4 MG CAPSULE 0.8 MG PO (09:10)
[2023-10-13] MEDS: TRIAMCINOLONE ACET 0.1% CREAM 80 GM TUBE 1 APPLIC TOPICAL ×2 (09:12→21:13)
[2023-10-13] MEDS: AZELASTINE HCL NASAL 0.1% 137 MCG/SPR 30 ML BTL 2 SPRAY NASAL ×2 (09:12→21:13)
--- NOTE | 2023-10-13 09:22 | P.PNCROSS_ITS ---
Event Note Event Note Event Note: Patient's INR is 4.7 today. Will hold warfarin. Repeat INR tomorrow. Will marielos armstrong need to decrease maintenance dose by 5-20%.
--- NOTE | 2023-10-13 09:22 | PM.EVENT ---
Event Note Event Note Event Note: Patient's INR is 4.7 today. Will hold warfarin. Repeat INR tomorrow. Will likely need to decrease maintenance dose by 5-20%.
[2023-10-13] MEDS: DOCUSATE SODIUM 100 MG CAPSULE PO ×2 (09:27→21:14)
[2023-10-13 11:36] LABS: Glucose Point of Care 192 mg/dl (65-105)
[2023-10-13 16:45] LABS: Glucose Point of Care 208 mg/dl (65-105)
[2023-10-13] MEDS: INSULIN HUMAN LISPRO (*BKC) 1,000 UNITS/10 ML VIAL SUB-Q (17:01)
[2023-10-13] MEDS: SENNA/DOCUSATE SODIUM TABLET 1 TAB PO (21:14)
[2023-10-13 21:17] LABS: Glucose Point of Care 173 mg/dl (65-105)
[2023-10-13] MEDS: INSULIN GLARGINE (*BKC) 1,000 UNITS/10 ML VIAL 44 UNITS SUB-Q (21:18)
[2023-10-14 05:49] LABS: Prothrombin Time 48.4 Seconds (9.50-12.1)
[2023-10-14] MEDS: LEVOTHYROXINE SODIUM 50 MCG TABLET PO (06:27)
[2023-10-14] MEDS: BACLOFEN 10 MG TABLET PO ×3 (06:27→21:27)
[2023-10-14] MEDS: PREGABALIN (*CRX) 50 MG CAPSULE 150 MG PO ×3 (06:27→21:27)
[2023-10-14 07:52] LABS: Glucose Point of Care 95 mg/dl (65-105)
[2023-10-14 08:00] VITALS: BP 118/67; PULSE 63; RESP 14; TEMP 36.6; O2SAT 95
[2023-10-14 09:03] VITALS: PULSE 78
[2023-10-14] MEDS: METOPROLOL TARTRATE 12.5 MG TABLET PO ×2 (09:03→21:27)
[2023-10-14] MEDS: ATORVASTATIN 10 MG TABLET 20 MG PO (09:04)
[2023-10-14] MEDS: PANTOPRAZOLE 40 MG TABLET PO (09:04)
[2023-10-14 09:05] VITALS: PULSE 78
[2023-10-14] MEDS: DOCUSATE SODIUM 100 MG CAPSULE PO ×2 (09:05→21:27)
[2023-10-14] MEDS: FLECAINIDE ACETATE 50 MG TABLET PO ×2 (09:05→21:27)
[2023-10-14] MEDS: EMPAGLIFLOZIN 10 MG TABLET PO (09:06)
[2023-10-14] MEDS: FUROSEMIDE 20 MG TABLET PO (09:07)
[2023-10-14] MEDS: LORATADINE 10 MG TABLET PO (09:07)
[2023-10-14] MEDS: ACIDOPHILUS/BULGARICUS CHEWABLE TABLET 1 TABLET PO (09:08)
[2023-10-14] MEDS: FLUTICASONE/UMECLIDIN/VILANTER 100-62.5-25 MCG ELLIPTA 1 PUFF INHALATION (09:10)
[2023-10-14] MEDS: TRIAMCINOLONE ACET 0.1% CREAM 80 GM TUBE 1 APPLIC TOPICAL ×2 (09:10→21:28)
[2023-10-14] MEDS: TAMSULOSIN HCL 0.4 MG CAPSULE 0.8 MG PO (10:03)
[2023-10-14] MEDS: AZELASTINE HCL NASAL 0.1% 137 MCG/SPR 30 ML BTL 2 SPRAY NASAL ×2 (10:09→21:28)
[2023-10-14 11:40] LABS: Glucose Point of Care 146 mg/dl (65-105)
[2023-10-14 16:00] VITALS: BP 138/72; PULSE 78; RESP 18; TEMP 36.1; O2SAT 94
[2023-10-14 17:14] LABS: Glucose Point of Care 160 mg/dl (65-105)
[2023-10-14] MEDS: INSULIN GLARGINE (*BKC) 1,000 UNITS/10 ML VIAL 44 UNITS SUB-Q (21:26)
[2023-10-14 21:27] VITALS: PULSE 63
[2023-10-14] MEDS: SENNA/DOCUSATE SODIUM TABLET 1 TAB PO (21:27)
[2023-10-14 21:28] LABS: Glucose Point of Care 202 mg/dl (65-105)
[2023-10-15] VITALS (7 sets, daily range): BP systolic 111–125; BP diastolic 46–57; PULSE 60–78; RESP 14–18; TEMP 35.7–36.9; O2SAT 92–95
[2023-10-15] MEDS: BACLOFEN 10 MG TABLET PO ×3 (05:30→22:04)
[2023-10-15] MEDS: PREGABALIN (*CRX) 50 MG CAPSULE 150 MG PO ×3 (05:30→22:05)
[2023-10-15] MEDS: LEVOTHYROXINE SODIUM 50 MCG TABLET PO (05:30)
[2023-10-15 05:42] LABS: INR 3.3; Prothrombin Time 33.2 Seconds (9.50-12.1)
--- NOTE | 2023-10-15 08:28 | PM.IMPN ---
Progress Note: A&P Assessment and Plan (1) Weakness: Code(s): R53.1 - Weakness Status: Acute Assessment and Plan: Deconditioning and weakness given multiple hospitalizations this year -admit as swing bed -PT/OT orders placed -up ad tobias with wheeled walker -fall precautions (2) Pulmonary embolism: Code(s): I26.99 - Other pulmonary embolism without acute cor pulmonale Status: Acute Assessment and Plan: CT demonstrates bilateral lower lobe segmental PE -history of subarachnoid hemorrhage in . Neurology at [place] said it was okay to resume anticoagulation. -Currently on coumadin 5 mg ,,,,Thu and 6 mg Thu. -INR is 3.1 -Re-check INR on Thursday and then weekly 10/14: Patient getting daily INR until Coumadin dose restabilized (3) Atrial fibrillation with rapid ventricular response: Code(s): I48.91 - Unspecified atrial fibrillation Status: Acute Assessment and Plan: A-fib with RVR on arrival to ED 10/03 -EKG from [place] shows NSR with 1st degree AV block on 10/05 -Continue with flecainide and metoprolol (4) COPD (chronic obstructive pulmonary disease): Qualifiers: COPD type: unspecified COPD Qualified Code(s): J44.9 - Chronic obstructive pulmonary disease, unspecified Code(s): J44.9 - Chronic obstructive pulmonary disease, unspecified Status: Acute Assessment and Plan: Intermittently has required oxygen in the past but currently not on home oxygen -Continue daily inhaler (5) Hypertension: Qualifiers: Hypertension type: essential hypertension Qualified Code(s): I10 - Essential (primary) hypertension Code(s): I10 - Essential (primary) hypertension Status: Chronic Assessment and Plan: On Metoprolol and Lasix -Blood pressures reviewed (6) Diabetes mellitus with neuropathy: Qualifiers: Diabetes mellitus senior living insulin use: with 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 use Diabetes mellitus type: type 2 Qualified Code(s): E11.40 - Type 2 diabetes mellitus with diabetic neuropathy, unspecified; Z79.4 - assisted (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 Code(s): E11.40 - Type 2 diabetes mellitus with diabetic neuropathy, unspecified Status: Acute Assessment and Plan: Hgb A1c 8% from 09/2023 -accu checks with hypoglycemia protocol -Lantus 44 units and low dose sliding scale -diabetic diet (7) Hyperlipidemia: Qualifiers: Hyperlipidemia type: mixed hyperlipidemia Qualified Code(s): E78.2 - Mixed hyperlipidemia Code(s): E78.5 - Hyperlipidemia, unspecified Status: Acute Assessment and Plan: Continue statin Time Spent With Patient Time with patient: 25 - 35 minutes Subjective Date/time seen: 10/15/23 08:28 Interval history: Patient is at [facility] for rehabilitation pending going home after recent admission for pulmonary embolus. Patient is on warfarin and was supratherapeutic with level reaching a peak of 5. Warfarin has been held the last couple days and this morning was down to 3.3. We will restart warfarin at slightly lower dose. Patient is concerned about his blood glucose not being as well controlled he is on sliding scale but usually takes 8 units insulin with each meal. I informed patient we do not want him to drop too low. It seems reasonable to start 5 units with each meal at this time. Review of Systems Review of Systems: All systems reviewed & are unremarkable except as noted in HPI and below Exam Const: General: comfortable and no acute distress HENMT: Mouth: Yes moist mucous membranes Eyes: General: appearance normal, both eyes and all related structures Pupils: Equal, round and reactive pupils present EOM: EOMs intact bilaterally Neck: Neck: supple and no JVD Resp: Effort & Inspection: normal respiratory effort Auscultation: clear to auscultation bilaterally Cardio: Rate: regular rate Rhythm: abnorma
[2023-10-15] MEDS: FLUTICASONE/UMECLIDIN/VILANTER 100-62.5-25 MCG ELLIPTA 1 PUFF INHALATION (09:48)
[2023-10-15] MEDS: PANTOPRAZOLE 40 MG TABLET PO (09:49)
[2023-10-15] MEDS: METOPROLOL TARTRATE 12.5 MG TABLET PO ×2 (09:49→21:55)
[2023-10-15] MEDS: TAMSULOSIN HCL 0.4 MG CAPSULE 0.8 MG PO (09:49)
[2023-10-15] MEDS: FLECAINIDE ACETATE 50 MG TABLET PO ×2 (09:50→21:56)
[2023-10-15] MEDS: DOCUSATE SODIUM 100 MG CAPSULE PO ×2 (09:50→21:57)
[2023-10-15] MEDS: ATORVASTATIN 10 MG TABLET 20 MG PO (09:50)
[2023-10-15] MEDS: FUROSEMIDE 20 MG TABLET PO (09:50)
[2023-10-15] MEDS: ACIDOPHILUS/BULGARICUS CHEWABLE TABLET 1 TABLET PO (09:51)
[2023-10-15] MEDS: EMPAGLIFLOZIN 10 MG TABLET PO (09:51)
[2023-10-15] MEDS: LORATADINE 10 MG TABLET PO (09:51)
[2023-10-15] MEDS: AZELASTINE HCL NASAL 0.1% 137 MCG/SPR 30 ML BTL 2 SPRAY NASAL ×2 (09:58→21:55)
[2023-10-15] MEDS: TRIAMCINOLONE ACET 0.1% CREAM 80 GM TUBE 1 APPLIC TOPICAL ×2 (09:59→21:54)
[2023-10-15 11:35] LABS: Glucose Point of Care 162 mg/dl (65-105)
[2023-10-15 12:10] LABS: Glucose Point of Care 131 mg/dl (65-105)
[2023-10-15] MEDS: WARFARIN (*PBKC) 2 MG TABLET 4 MG PO (16:55)
[2023-10-15] MEDS: INSULIN HUMAN LISPRO (*BKC) 1,000 UNITS/10 ML VIAL 5 UNITS SUB-Q (16:55)
[2023-10-15 21:19] LABS: Glucose Point of Care 189 mg/dl (65-105)
[2023-10-15] MEDS: SENNA/DOCUSATE SODIUM TABLET 1 TAB PO (21:56)
[2023-10-15] MEDS: INSULIN GLARGINE (*BKC) 1,000 UNITS/10 ML VIAL 44 UNITS SUB-Q (21:57)
[2023-10-15 22:04] LABS: Glucose Point of Care 142 mg/dl (65-105)
[2023-10-16] VITALS (7 sets, daily range): BP systolic 107–145; BP diastolic 56–72; PULSE 63–78; RESP 14–20; TEMP 35.8–36.7; O2SAT 94–96
[2023-10-16 05:51] LABS: INR 2.3; Prothrombin Time 23.5 Seconds (9.50-12.1)
[2023-10-16] MEDS: BACLOFEN 10 MG TABLET PO ×3 (05:56→21:17)
[2023-10-16] MEDS: LEVOTHYROXINE SODIUM 50 MCG TABLET PO (05:56)
[2023-10-16] MEDS: PREGABALIN (*CRX) 50 MG CAPSULE 150 MG PO ×3 (05:56→21:18)
[2023-10-16 08:16] LABS: Glucose Point of Care 86 mg/dl (65-105)
[2023-10-16] MEDS: FLUTICASONE/UMECLIDIN/VILANTER 100-62.5-25 MCG ELLIPTA 1 PUFF INHALATION (10:22)
[2023-10-16] MEDS: ACIDOPHILUS/BULGARICUS CHEWABLE TABLET 1 TABLET PO (10:23)
[2023-10-16] MEDS: METOPROLOL TARTRATE 12.5 MG TABLET PO ×2 (10:23→20:18)
[2023-10-16] MEDS: TAMSULOSIN HCL 0.4 MG CAPSULE 0.8 MG PO (10:23)
[2023-10-16] MEDS: DOCUSATE SODIUM 100 MG CAPSULE PO ×2 (10:23→20:19)
[2023-10-16] MEDS: EMPAGLIFLOZIN 10 MG TABLET PO (10:24)
[2023-10-16] MEDS: FLECAINIDE ACETATE 50 MG TABLET PO ×2 (10:24→20:20)
[2023-10-16] MEDS: ATORVASTATIN 10 MG TABLET 20 MG PO (10:24)
[2023-10-16] MEDS: PANTOPRAZOLE 40 MG TABLET PO (10:24)
[2023-10-16] MEDS: FUROSEMIDE 20 MG TABLET PO (10:25)
[2023-10-16] MEDS: LORATADINE 10 MG TABLET PO (10:26)
[2023-10-16] MEDS: AZELASTINE HCL NASAL 0.1% 137 MCG/SPR 30 ML BTL 2 SPRAY NASAL ×2 (10:26→20:21)
[2023-10-16] MEDS: TRIAMCINOLONE ACET 0.1% CREAM 80 GM TUBE 1 APPLIC TOPICAL ×2 (10:27→20:21)
[2023-10-16] MEDS: INSULIN HUMAN LISPRO (*BKC) 1,000 UNITS/10 ML VIAL 5 UNITS SUB-Q ×3 (10:30→17:05)
[2023-10-16 11:12] LABS: Glucose Point of Care 205 mg/dl (65-105)
[2023-10-16 11:49] LABS: Glucose Point of Care 251 mg/dl (65-105)
[2023-10-16] MEDS: INSULIN HUMAN LISPRO (*BKC) 1,000 UNITS/10 ML VIAL SUB-Q (12:20)
[2023-10-16 16:39] LABS: Glucose Point of Care 153 mg/dl (65-105)
[2023-10-16] MEDS: WARFARIN (*PBKC) 2 MG TABLET 4 MG PO (17:02)
[2023-10-16] MEDS: SENNA/DOCUSATE SODIUM TABLET 1 TAB PO (20:18)
[2023-10-16] MEDS: INSULIN GLARGINE (*BKC) 1,000 UNITS/10 ML VIAL 44 UNITS SUB-Q (20:21)
[2023-10-16 20:23] LABS: Glucose Point of Care 188 mg/dl (65-105)
[2023-10-17] VITALS: BP 134/70; PULSE 59; RESP 18; TEMP 36.6; O2SAT 95
[2023-10-17 05:38] LABS: INR 2.1; Prothrombin Time 21.9 Seconds (9.50-12.1)
[2023-10-17] MEDS: LEVOTHYROXINE SODIUM 50 MCG TABLET PO (06:00)
[2023-10-17] MEDS: PREGABALIN (*CRX) 50 MG CAPSULE 150 MG PO ×2 (06:00→13:00)
[2023-10-17] MEDS: BACLOFEN 10 MG TABLET PO ×2 (06:00→13:00)
[2023-10-17 08:00] VITALS: BP 121/62; PULSE 60; RESP 18; TEMP 36.1; O2SAT 96
[2023-10-17 08:08] LABS: Glucose Point of Care 109 mg/dl (65-105)
[2023-10-17] MEDS: INSULIN HUMAN LISPRO (*BKC) 1,000 UNITS/10 ML VIAL 5 UNITS SUB-Q ×2 (08:21→12:23)
[2023-10-17] MEDS: TRIAMCINOLONE ACET 0.1% CREAM 80 GM TUBE 1 APPLIC TOPICAL (08:22)
[2023-10-17] MEDS: AZELASTINE HCL NASAL 0.1% 137 MCG/SPR 30 ML BTL 2 SPRAY NASAL (08:22)
[2023-10-17] MEDS: FLUTICASONE/UMECLIDIN/VILANTER 100-62.5-25 MCG ELLIPTA 1 PUFF INHALATION (09:14)
[2023-10-17 09:15] VITALS: PULSE 60
[2023-10-17] MEDS: METOPROLOL TARTRATE 12.5 MG TABLET PO (09:15)
[2023-10-17] MEDS: TAMSULOSIN HCL 0.4 MG CAPSULE 0.8 MG PO (09:15)
[2023-10-17] MEDS: ACIDOPHILUS/BULGARICUS CHEWABLE TABLET 1 TABLET PO (09:15)
[2023-10-17] MEDS: FLECAINIDE ACETATE 50 MG TABLET PO (09:15)
[2023-10-17] MEDS: PANTOPRAZOLE 40 MG TABLET PO (09:15)
[2023-10-17] MEDS: ATORVASTATIN 10 MG TABLET 20 MG PO (09:15)
[2023-10-17] MEDS: EMPAGLIFLOZIN 10 MG TABLET PO (09:15)
[2023-10-17] MEDS: FUROSEMIDE 20 MG TABLET PO (09:16)
[2023-10-17] MEDS: LORATADINE 10 MG TABLET PO (09:16)
--- NOTE | 2023-10-17 09:36 | PM.DS ---
DS: Admitting Diagnosis Discharge Date 10/17/2023 Admitting Diagnosis weakness, PE, Afib RVR, COPD, HTN, Diabetes with neuropathy, hyperlipidemia DS: Discharge Diagnosis Discharge Diagnosis (1) Weakness: Code(s): R53.1 - Weakness Status: Acute (2) Pulmonary embolism: Code(s): I26.99 - Other pulmonary embolism without acute cor pulmonale Status: Acute (3) Atrial fibrillation with rapid ventricular response: Code(s): I48.91 - Unspecified atrial fibrillation Status: Acute (4) COPD (chronic obstructive pulmonary disease): Qualifiers: COPD type: unspecified COPD Qualified Code(s): J44.9 - Chronic obstructive pulmonary disease, unspecified Code(s): J44.9 - Chronic obstructive pulmonary disease, unspecified Status: Acute (5) Hypertension: Qualifiers: Hypertension type: essential hypertension Qualified Code(s): I10 - Essential (primary) hypertension Code(s): I10 - Essential (primary) hypertension Status: Chronic (6) Diabetes mellitus with neuropathy: Qualifiers: Diabetes mellitus type: type 2 Diabetes mellitus correction insulin use: with correction use Qualified Code(s): E11.40 - Type 2 diabetes mellitus with diabetic neuropathy, unspecified; Z79.4 - 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 Patient used to be on warfarin but had a fall with a head bleed and after resolution no one was willing to restart warfarin. Then patient got sick with Covid. Later on patient developed dyspnea and was diagnosed with PE. Warfarin restarted. While here INR climbed to a peak of 5. Warfarin was held for 2 nights and restarted at a slightly decreased dose. This morning INR continues to decrease to 2.1 so further dosing will be at a consistent 5 mg daily with follow up INR and management per primary care. Prescription for INR written on discharge. Patient's insurance stated he needed to discharge Thursday morning but patient already had weekend therapy session and he requested to go home now which seems very reasonable. Status at Discharge Cognitive/behavioral status at discharge: awake, alert and very pleasant Functional status at discharge: uses cane/walker Overall status at discharge: patient is progressing back to baseline Time Spent with Patient Time attestation: Total time spent providing and/or coordinating discharge services: 40 minutes Time spent: Greater than 30 minutes Exam Const: General: comfortable and no acute distress HENMT: Mouth: Yes moist mucous membranes Eyes: General: appearance normal, both eyes and all related structures Pupils: Equal, round and reactive pupils present EOM: EOMs intact bilaterally Neck: Neck: supple and no JVD Resp: Effort & Inspection: normal respiratory effort Auscultation: clear to auscultation bilaterally Cardio: Rate: regular rate Rhythm: abnormal rhythm GI: GI Palp: Yes Soft to palpation, No Tenderness to palpation present (GI) and No Guarding due to palpation present (GI) Auscultation: normal bowel sounds Other: obese : General: Yes bladder normal to palpation Skin: General skin exam: normal color Neuro: Cranial nerves: Yes Equal, round and reactive pupils present Speech: normal speech Motor exam (neuro): Normal motor muscle tone present throughout Sensory Exam: normal sensation Extrem:
[2023-10-17 12:20] LABS: Glucose Point of Care 154 mg/dl (65-105)
--- NOTE | 2023-10-17 13:15 | PC.NURSE ---
SN reviewed discharge instructions with patient and spouse. Both verbalized understanding. Patient assisted off floor per wheelchair to vehicle. Discharged to home
--- NOTE | 2023-10-19 09:30 | PC.NURSE ---
Discharge call back completed, spoke with , doing well, understood dc instructions, no questions, attempting to make f/u appointment with PMD
== END 2023-10-17 13:15 | disposition home or self-care (01) | DRG 947 ==
PROVIDERS: Nurse Practitioner Acute Care; Admitting Provider Internal Medicine; PCP Family Medicine; Visit Provider Internal Medicine
DX: R53.1 Weakness (principal); I26.99 Other pulmonary embolism without acute cor pulmonale; Z68.41 Body mass index [BMI] 40.0-44.9, adult; I50.32 Chronic diastolic (congestive) heart failure; J44.9 Chronic obstructive pulmonary disease, unspecified; I48.0 Paroxysmal atrial fibrillation; E11.40 Type 2 diabetes mellitus with diabetic neuropathy, unspecified; E03.9 Hypothyroidism, unspecified; I10 Essential (primary) hypertension; E66.9 Obesity, unspecified; W06.XXXD Fall from bed, subsequent encounter; S06.6XAD Traumatic subarachnoid hemorrhage with loss of consciousness status unknown, subsequent encounter; Z79.01 Long term (current) use of anticoagulants; Z86.718 Personal history of other venous thrombosis and embolism; Z79.4 Long term (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; Z90.81 Acquired absence of spleen
CPT/HCPCS: 36415; 82948; 85610; 97110; 97161; 97165; 97530; 97535; A9270; J1815

== ENCOUNTER 2023-12-23 08:21 | Emergency (ER) | payer MEDICARE, SELFPAY ==
--- NOTE | ~2023-12-23 | XR_ITS ---
Right Shoulder Technique: AP and scapular Y views were obtained. Clinical History: Pain Findings: No fracture or dislocation is seen. Patient is status post prior resection of distal clavic le. There is mild to moderate glenohumeral joint degenerative change. Soft tissues are unremarkable. Impression: No acute fracture or dislocation. Prior resection of the distal clavicle. Degenerative change, as above. Reviewed, dictated and finalized at location . Impression: No acute fracture or dislocation. Prior resection of the distal clavicle. Degenerative change, as above.
[2023-12-23 08:28] VITALS: BP 140/80; PULSE 62; RESP 16; TEMP 36.9; O2SAT 98
[2023-12-23] MEDS: HYDROcodone/acetaminophen (*CRX) 5-325 MG TABLET 1 TAB PO (09:11)
--- NOTE | 2023-12-23 09:20 | ED.UPPEXIN ---
HPI - Extremity Injury (Upper) General Chief Complaint: Extremity Injury, Upper Stated Complaint: right shoulder pain Time Seen by Provider: 12/23/23 08:52 History of Present Illness HPI narrative: 83-year-old male with multiple medical comorbidities presents to the emergency room for evaluation of right shoulder pain. Patient states this morning he was using the restroom, when he reached back to wipe himself, felt a popping sensation in his right shoulder. Patient states he was unable to move his right arm afterwards. Patient states pain is worse when attempting to raise his arm, reach our, Rich cross-body. Patient has a history of a rotator cuff repair. Denies any other injuries. Patient states he is able to raise himself up by pushing against his walker. Related Data Home Medications Medication Instructions Recorded Confirmed flecainide 50 mg tablet 50 mg PO Q12H 06/21/19 10/23/23 docusate sodium 50 mg capsule 50 mg PO BID 06/14/20 10/23/23 loratadine 10 mg capsule 10 mg PO DAILY 06/14/20 10/23/23 lactobacillus combination no.9 4 4,000 mmu cells PO DAILY 11/07/21 10/23/23 billion cell capsule (Adult 50 Plus Probiotic) sennosides 8.6 mg-docusate sodium 1 tab-cap PO QHS 11/07/21 10/23/23 50 mg tablet levothyroxine 50 mcg tablet 50 mcg PO DAILY 09/05/23 10/23/23 metoprolol tartrate 25 mg tablet 12.5 mg PO BID 09/05/23 10/23/23 omeprazole 20 mg capsule,delayed 20 mg PO DAILY 09/05/23 10/23/23 release oxycodone 5 mg tablet 5 mg PO Q8H PRN Pain 5-10 09/05/23 10/23/23 tamsulosin 0.4 mg capsule 0.8 mg PO DAILY 09/05/23 10/23/23 acetaminophen 650 mg 650 mg PO Q12H PRN pain 1-4 10/12/23 10/23/23 tablet,extended release (Tylenol Arthritis Pain) insulin glargine 100 unit/mL 44 unit subcut HS 10/12/23 10/23/23 subcutaneous solution Allergies Allergy/AdvReac Type Severity Reaction Status Date / Time No Known Allergies Allergy Verified 12/23/23 08:22 Review of Systems Review of Systems: ROS unremarkable unless otherwise stated in HPI [facility] Past Medical History Medical History Acute exacerbation of chronic obstructive airways disease Ankle fracture, bimalleolar, closed Ankle syndesmosis disruption Atrial fibrillation BPH (benign prostatic hyperplasia) Chronic antibiotic suppression Chronic anticoagulation Constipation COPD (chronic obstructive pulmonary disease) Diabetes mellitus with neuropathy High cholesterol History of deep vein thrombosis (DVT) of lower extremity History of hemorrhoids History of pulmonary embolism Hypertension Hypothyroidism determined by thyroid function test Infection of spine Left ankle pain Olecranon bursitis of right elbow Osteomyelitis, chronic Pneumonia due to COVID-19 virus Recurrent deep vein thrombosis (DVT) Right arm pain Rotator cuff arthropathy of right shoulder Rupture of left Achilles tendon SOB (shortness of breath) Spleen absent Vision changes Weakness of both lower extremities Surgical History Surgical History H/O bilateral cataract extraction H/O colonoscopy with polypectomy H/O splenectomy H/O total knee replacement Bilaterally History of back surgery x2 ([facility]), x1 ([facility]) History of embolic filter insertion History of pancreatic surgery Removal of pancreatic mass ([facility]) Hx of hernia repair S/P rotator cuff repair Total knee replacement status Family History Family History Grandparent Diabetes mellitus Father Family history of cardiovascular disease Intracranial aneurysm Mother Dvt femoral (deep venous thrombosis) Sibling Throat cancer Sister Acute myocardial infarction Brother Social History Social History Social History: The patient lives with his it looks like he was
[2023-12-23 10:14] VITALS: BP 140/88; PULSE 89; RESP 16; O2SAT 99
== END 2023-12-23 10:15 | disposition home or self-care (01) ==
PROVIDERS: Emergency Provider Nurse Practitioner Family; PCP Family Medicine
DX: S46.911A Strain of unspecified muscle, fascia and tendon at shoulder and upper arm level, right arm, initial encounter (principal); J44.9 Chronic obstructive pulmonary disease, unspecified; I48.91 Unspecified atrial fibrillation; I10 Essential (primary) hypertension; E11.40 Type 2 diabetes mellitus with diabetic neuropathy, unspecified; E78.00 Pure hypercholesterolemia, unspecified; E03.9 Hypothyroidism, unspecified; N40.0 Benign prostatic hyperplasia without lower urinary tract symptoms; M86.60 Other chronic osteomyelitis, unspecified site; Z66 Do not resuscitate; Z96.653 Presence of artificial knee joint, bilateral; Z86.711 Personal history of pulmonary embolism; Z86.718 Personal history of other venous thrombosis and embolism; Z86.16 Personal history of COVID-19; Z87.01 Personal history of pneumonia (recurrent); Z87.891 Personal history of nicotine dependence; Z90.81 Acquired absence of spleen; Z98.42 Cataract extraction status, left eye; Z98.41 Cataract extraction status, right eye; Z79.4 Long term (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; Z79.01 Long term (current) use of anticoagulants; Z79.899 Other long term (current) drug therapy; X50.9XXA Other and unspecified overexertion or strenuous movements or postures, initial encounter
CPT/HCPCS: 73030; 99283; A4565; A9270

== ENCOUNTER 2024-03-20 12:14 | Emergency (ER) | payer MEDICARE, SELFPAY ==
[2024-03-20] VITALS (20 sets, daily range): BP systolic 105–154; BP diastolic 29–93; PULSE 56–59; RESP 17–20; TEMP 36.7; O2SAT 95–99
--- NOTE | ~2024-03-20 | CT_ITS ---
EXAMINATION: CT cervical spine wo con DATE: 03/20/2024 15:29 INDICATION: Neck pain. Fall. TECHNIQUE: Computed tomography (CT) of the cervical spine was performed without intravenous contrast. Automated exposure control and iterative reconstruction technique were employed. The dose-length pro duct was 597.89 mGy-cm. COMPARISON: Cervical spine CT 07/27/2023 FINDINGS: Bone alignment is normal. Vertebral body heights are normal. There is mildly decreased disc height at C2-C3, C3-C4, and C4-C5, moderately decreased disc height at C5-C6 with interbody fusion, and mildly decreased disc height at C6-C7. The following disc levels are specifically discussed: C2-C3: There is mild right and moderate left uncovertebral joint osteoarthritis. There is mild bilate ral facet joint osteoarthritis. There is mild left neural foraminal stenosis. There is mild central c anal stenosis. C3-C4: There is mild bilateral uncovertebral joint osteoarthritis. There is mild bilateral facet join t osteoarthritis. There is mild left neural foraminal stenosis. There is no central canal stenosis. C4-C5: There is mild bilateral uncovertebral joint osteoarthritis. There is mild bilateral facet join t osteoarthritis. There is no neural foraminal stenosis. There is no central canal stenosis. C5-C6: There is mild bilateral uncovertebral joint hypertrophy. There is mild bilateral facet joint o steoarthritis. There is mild left neural foraminal stenosis. There is no central canal stenosis. C6-C7: There is mild bilateral uncovertebral joint osteoarthritis. There is severe bilateral facet mary grace int osteoarthritis. There is mild bilateral neural foraminal stenosis. There is mild central canal st enosis. C7-T1: There is no uncovertebral joint osteoarthritis. There is severe bilateral facet joint osteoart hritis. There is mild bilateral neural foraminal stenosis. There is no central canal stenosis. IMPRESSION: 1. No fracture. 2. Mild cervical spondylosis. Reviewed, dictated and finalized at location E.
--- NOTE | ~2024-03-20 | XR_ITS ---
XR chest 1V portable DATE: 03/20/2024 14:35 INDICATION: Cough TECHNIQUE: Portable AP chest on 03/20/2024 1422 hours COMPARISON: 10/04/2023 AP chest 10/04/2023 CTA chest FINDINGS: Cardiomegaly. Aortic calcification and mild unfolding. There is suggestion of bilateral lower lung infiltrate and/or atelectasis, left greater than right. Small pleural effusions cannot be excluded. Pulmonary vascularity appears borderline, with redistribu tion which may indicate mild pulmonary venous hypertension. Osteopenia. Old left rib fracture deformities. IMPRESSION: Cardiomegaly Pulmonary vascular redistribution may indicate mild pulmonary venous hypertension Aortic atherosclerosis Suggestion of infiltrate and/or atelectasis in the lower lung zones, left greater than right Reviewed, dictated and finalized at location J. IMPRESSION: Cardiomegaly Pulmonary vascular redistribution may indicate mild pulmonary venous hypertensi on Aortic atherosclerosis Suggestion of infiltrate and/or atelectasis in the lower lung zones, left great er than right
--- NOTE | ~2024-03-20 | XR_ITS ---
XR hand LT min 3V DATE: 03/20/2024 14:35 INDICATION: Left hand injury TECHNIQUE: 4 views COMPARISON: None FINDINGS: There is a mildly comminuted linear oblique fracture through the distal shaft of the fifth metacarpal bone with approximately 3.5 mm anterolateral displacement. There is mild overriding with f oreshortening of the fifth metacarpal bone. No other fracture or dislocation is noted. Osteopenia. There is polyarticular osteoarthritis, including first carpometacarpal and interphalangeal joints. IMPRESSION: Mildly comminuted linear oblique distal fifth metacarpal shaft fracture with 3.5 mm anter olateral displacement and mild overriding Reviewed, dictated and finalized at location J. IMPRESSION: Mildly comminuted linear oblique distal fifth metacarpal shaft frac ture with 3.5 mm anterolateral displacement and mild overriding
--- NOTE | ~2024-03-20 | CT_ITS ---
EXAMINATION: CT brain wo con DATE: 03/20/2024 15:29 INDICATION: Head injury. TECHNIQUE: Computed tomography (CT) of the head was performed without intravenous contrast. The mA wa s adjusted according to patient size. Iterative reconstruction technique was employed. The dose-lengt h product was 681.00 mGy-cm. COMPARISON: Head CT 09/07/2023 FINDINGS: There are scattered areas of low attenuation in the cerebral white matter, which is within normal limits for the patient's age. There is no intracranial hemorrhage, acute infarction, or abnorm al intracranial mass lesion. The ventricles are normal in size. The paranasal sinuses are clear. Ther e are likely changes of ocular lens replacement surgeries. The mastoid air cells are normal. IMPRESSION: 1. Normal aging brain. Reviewed, dictated and finalized at location E. IMPRESSION: 1. Normal aging brain.
--- NOTE | 2024-03-20 14:09 | ECG_ITS ---
Test Date: 2024-03-20 14:46:16 Measurements Intervals [place] Rate: 52 P: 30 MT: 244 QRS: 26 QRSD: 99 T: 41 QT: 454 QTc: 426 Interpretive Statements SINUS BRADYCARDIA WITH FIRST DEGREE AV BLOCK ABNORMAL ECG No previous ECG available for comparison Electronically Signed On 03-21-2024 10:54:59 CDT by Chance Gunter M.D.
[2024-03-20 14:55] LABS: Basophils Absolute Auto 0.1 K/mm3 (0.0-0.1); Basophils Percent Auto 0.7 % (0.2-1.2); Eosinophils Absolute Auto 0.4 K/mm3 (0-0.3); Eosinophils Percent Auto 5.2 % (0-4.4); Hematocrit 47.1 % (42.0-52.0); Hemoglobin 15.3 g/dL (14.0-18.0); Immature Granulocyte Absolute 0.04 K/mm3 (0.00-0.031); Immature Granulocyte Percent A 0.6 % (0-0.5); Lymphocytes Absolute Auto 1.34 K/mm3 (0.9-3.2); Lymphocytes Percent Auto 19.3 % (18.3-44.2); Mean Corpuscular HGB Conc 32.5 g/dl (32-36); Mean Corpuscular Hemoglobin 27.3 pg (26-34); Mean Platelet Volume 9.8 fl (7.4-10.4); Monocytes Absolute Auto 1.1 K/mm3 (0.1-0.6); Neutrophils Percent Auto 58.2 % (45.5-73.1); Platelet Count Result 261 k/mm3 (150-375); Red Blood Count 5.61 M/mm3 (4.6-6.20); Red Cell Distribution Width 19.9 % (11.5-14.5); White Blood Count 6.9 K/mm3 (4.5-10.0)
[2024-03-20 15:05] LABS: Lactic Acid Reflex 1.3 mmol/L (0.7-2.0)
[2024-03-20 15:14] LABS: Alanine Aminotransferase 21 U/L (6-50); Albumin Level 3.3 g/dL (3.5-5.1); Alkaline Phosphatase 122 U/L (38-126); Anion Gap 6 mmol/L (4-12); Aspartate Amino Transferase 29 U/L (17-59); Bilirubin,Total 0.5 mg/dL (0.2-1.3); Blood Urea Nitrogen 20 mg/dL (9-20); Calcium 8.9 mg/dL (8.4-10.2); Carbon Dioxide 30 mmol/L (22-30); Chloride 104 mmol/L (98-107); Estimated CRCL calculation 70 ml/min; Estimated Glomerular Filt Rate 58; Glucose 104 mg/dL (65-110); Magnesium 2.2 mg/dL (1.6-2.3); Potassium 4.4 mmol/L (3.4-5.0); Sodium 140 mmol/L (137-145)
[2024-03-20 15:20] LABS: Add Urine Microscopic? YES; Appearance Urine Clear (Clear); Bacteria Urine None Seen /hpf; Bilirubin Urine 1+ (Negative); Blood Urine Trace (Negative); Color Urine Dark Yellow (Yellow); Glucose Urine UA 3+ mg/dL (Negative); Ketones Urine Negative (Negative); Leukocyte Esterase Ur 1+ LEU/UL (Negative); Nitrate Urine Negative (Negative); Non Pathogenic Casts 0-2; Protein Urine Trace mg/dL (Negative); Specific Grav Ur 1.034 (1.001-1.035); Squamous Epithelial Cell Urine None Seen /hpf (Few); pH Urine 5.5 (5.0-9.0)
[2024-03-20 15:25] LABS: Troponin I < 0.012 ng/mL (0.000-0.034)
[2024-03-20 15:31] LABS: Procalcitonin 0.1 ng/mL
--- NOTE | 2024-03-20 16:45 | ED.GENADULT ---
HPI - General Adult General Chief complaint: Fall Stated complaint: fall with injuries Time Seen by Provider: 03/20/24 13:53 History of Present Illness HPI narrative: Patient 83-year-old gentleman who presents emergency department with chief complaint of fall. The patient reports that he has history of a prior brain bleed was using his walker lost his balance and fell the patient reports that he has pain in his left hand reports that he has an abrasion to his face reports he hit his head the patient reports he is on anticoagulants patient reports that he has had a little bit of a cough recently Related Data Home Medications Medication Instructions Recorded Confirmed flecainide 50 mg tablet 50 mg PO Q12H 06/21/19 03/16/24 docusate sodium 50 mg capsule 50 mg PO BID 06/14/20 03/16/24 loratadine 10 mg capsule 10 mg PO DAILY 06/14/20 03/16/24 lactobacillus combination no.9 4 4,000 mmu cells PO DAILY 11/07/21 03/16/24 billion cell capsule (Adult 50 Plus Probiotic) sennosides 8.6 mg-docusate sodium 1 tab-cap PO QHS 11/07/21 03/16/24 50 mg tablet metoprolol tartrate 25 mg tablet 12.5 mg PO BID 09/05/23 03/16/24 oxycodone 5 mg tablet 5 mg PO Q8H PRN Pain 5-10 09/05/23 03/16/24 acetaminophen 650 mg 650 mg PO Q12H PRN pain 1-4 10/12/23 03/16/24 tablet,extended release (Tylenol Arthritis Pain) Allergies Allergy/AdvReac Type Severity Reaction Status Date / Time No Known Allergies Allergy Verified 03/20/24 12:17 Review of Systems Review of Systems: A 10 system review of systems was completed on the patient and is negative except for what is stated in the HPI. Nursing and ancillary documentation was reviewed. [facility] Past Medical History Medical History Acute exacerbation of chronic obstructive airways disease Ankle fracture, bimalleolar, closed Ankle syndesmosis disruption Arthritis of right shoulder region Atrial fibrillation BPH (benign prostatic hyperplasia) Chronic antibiotic suppression Chronic anticoagulation Constipation COPD (chronic obstructive pulmonary disease) Diabetes mellitus with neuropathy High cholesterol History of deep vein thrombosis (DVT) of lower extremity History of hemorrhoids History of pulmonary embolism Hypertension Hypothyroidism determined by thyroid function test Infection of spine Left ankle pain Olecranon bursitis of right elbow Osteomyelitis, chronic Pneumonia due to COVID-19 virus Recurrent deep vein thrombosis (DVT) Right arm pain Right shoulder strain Rotator cuff arthropathy of right shoulder Rupture of left Achilles tendon SOB (shortness of breath) Spleen absent Vision changes Weakness of both lower extremities Surgical History Surgical History H/O bilateral cataract extraction H/O colonoscopy with polypectomy H/O splenectomy H/O total knee replacement Bilaterally History of back surgery x2 ([facility]), x1 ([facility]) History of embolic filter insertion History of pancreatic surgery Removal of pancreatic mass ([place]) Hx of hernia repair S/P rotator cuff repair Total knee replacement status Family History Family History Grandparent Diabetes mellitus Father Family history of cardiovascular disease Intracranial aneurysm Mother Dvt femoral (deep venous thrombosis) Sibling Throat cancer Sister Acute myocardial infarction Brother Social History Social History Social History: The patient lives with his it looks like he was in the past patient was smoking up to 3 packs of cigarettes a day. He is retired from [employer]. He drinks occasionally denies any illicit drugs. He is listed as a DNR. Smoking packs per day: 1 Smoking cigarettes pe
--- NOTE | 2024-03-20 17:00 | PC.NURSE ---
LATE ENTRY This note is being entered to document information to the patient's record. The following information was omitted on [04/01/24], by [Nancy Bull]. Verbal order for short arm splint received by EDP.
== END 2024-03-20 17:22 | disposition home or self-care (01) ==
PROVIDERS: Emergency Provider Emergency Medicine; PCP Family Medicine
DX: S62.327A Displaced fracture of shaft of fifth metacarpal bone, left hand, initial encounter for closed fracture (principal); S00.81XA Abrasion of other part of head, initial encounter; J18.9 Pneumonia, unspecified organism; I48.91 Unspecified atrial fibrillation; I10 Essential (primary) hypertension; J44.9 Chronic obstructive pulmonary disease, unspecified; E11.40 Type 2 diabetes mellitus with diabetic neuropathy, unspecified; E78.00 Pure hypercholesterolemia, unspecified; E03.9 Hypothyroidism, unspecified; N40.0 Benign prostatic hyperplasia without lower urinary tract symptoms; M19.011 Primary osteoarthritis, right shoulder; Z66 Do not resuscitate; Z86.718 Personal history of other venous thrombosis and embolism; Z86.711 Personal history of pulmonary embolism; Z86.16 Personal history of COVID-19; Z87.891 Personal history of nicotine dependence; Z79.01 Long term (current) use of anticoagulants; Z79.899 Other long term (current) drug therapy; Z79.4 Long term (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; Z98.42 Cataract extraction status, left eye; Z98.41 Cataract extraction status, right eye; Z90.81 Acquired absence of spleen; Z96.653 Presence of artificial knee joint, bilateral; R00.1 Bradycardia, unspecified; I44.0 Atrioventricular block, first degree; M47.812 Spondylosis without myelopathy or radiculopathy, cervical region; I70.0 Atherosclerosis of aorta; W18.39XA Other fall on same level, initial encounter
CPT/HCPCS: 29125; 36415; 70450; 71045; 72125; 73130; 80053; 81001; 83605; 83735; 84145; 84484; 85025; 87086; 93005; 99284

== ENCOUNTER 2024-04-11 07:57 | Outpatient (CLI) | payer MEDICARE, SELFPAY ==
--- NOTE | ~2024-04-11 | XR_ITS ---
XR knee LT min 4V Ordering provider: Romero Mckenzie MD History: . Fall X 1 month, LT knee pain, unable to bear weight . Comparison: September 02, 2021 FINDINGS: BONES: No acute fracture or dislocation. JOINT SPACES: Status post total knee arthroplasty. SOFT TISSUES: Minimal soft tissue swelling in the medial and lateral aspects. IMPRESSION: No acute osseous abnormality left knee. Total knee arthroplasty. Reviewed, dictated and finalized at location A.
--- NOTE | ~2024-04-11 | XR_ITS ---
XR hand LT min 3V Ordering provider: Romero Mckenzie MD History: . LT hand pain, Fall X 1 month, 5th metacarpal . Comparison: March 23, 2024 FINDINGS: BONES: Fracture in the shaft of the fifth metacarpal bone unchanged from previous examination. No kaykay nge in alignment. JOINT SPACES: Well maintained. Mild osteoarthritic changes in the scaphoid and capitate bones. Mild o steoarthritic changes in the distal interphalangeal joints. SOFT TISSUES: Soft tissue swelling seen medially in the area of the fifth metacarpal bone fracture. IMPRESSION: Fracture in the fifth metacarpal bone unchanged from previous examination. Status post removal of the cast Reviewed, dictated and finalized at location A. IMPRESSION: Fracture in the fifth metacarpal bone unchanged from previous examination. Stat us post removal of the cast
== END 2024-04-11 07:58 | disposition home or self-care (01) ==
LOC: CHSIMG 08:00
PROVIDERS: PCP Family Medicine; Visit Provider Orthopaedic Surgery
DX: M25.562 Pain in left knee (principal); M79.642 Pain in left hand; S62.307A Unspecified fracture of fifth metacarpal bone, left hand, initial encounter for closed fracture; Z96.652 Presence of left artificial knee joint
CPT/HCPCS: 73130; 73564

== ENCOUNTER 2024-04-13 08:26 | Observation (INO) | payer MEDICARE, SELFPAY ==
[2024-04-13] VITALS (12 sets, daily range): BP systolic 98–128; BP diastolic 57–94; PULSE 70–91; RESP 14–20; TEMP 36–36.1; O2SAT 95–99; BMI 45.8
--- NOTE | ~2024-04-13 | XR_ITS ---
EXAMINATION: XR chest 2V DATE: 04/13/2024 09:36 INDICATION: Shortness of breath. TECHNIQUE: Frontal and lateral views of the chest were obtained. COMPARISON: Chest single view 03/20/2024, chest CT 10/04/2023 FINDINGS: Sensitivity is decreased by obesity. There are airspace opacities in right lower lung zone and left mid and lower lung zones. No pleural effusion or pneumothorax. The heart size is normal. Med iastinal lipomatosis is noted. There are old healed left rib fractures. IMPRESSION: 1. Airspace opacities in right lower lung zone and left mid and lower lung zones, consistent with ate lectasis versus pneumonia. Reviewed, dictated and finalized at location A. IMPRESSION: 1. Airspace opacities in right lower lung zone and left mid and lower lung zone s, consistent with atelectasis versus pneumonia.
--- NOTE | 2024-04-13 08:49 | ECG_ITS ---
Test Date: 2024-04-13 09:44:19 Measurements Intervals [place] Rate: 70 P: 0 AK: 0 QRS: 26 QRSD: 95 T: 51 QT: 399 QTc: 431 Interpretive Statements ATRIAL FIBRILLATION MINIMAL Q WAVES- INFERIOR LEADS ABNORMAL ECG Compared to ECG 03/20/2024 14:46:16 ATRIAL FIBRILLATION NOW PRESENT Electronically Signed On 04-13-2024 10:03:06 CDT by Dani Cortez D.O.
[2024-04-13] MEDS: SODIUM CHLORIDE 0.9% IV 1,000 ML 999 ML IV CONT (09:14)
[2024-04-13 09:24] LABS: Basophils Percent Auto 0.5 % (0.2-1.2); Eosinophils Absolute Auto 0.1 K/mm3 (0-0.3); Eosinophils Percent Auto 1.8 % (0-4.4); Hematocrit 48.7 % (42.0-52.0); Hemoglobin 15.6 g/dL (14.0-18.0); Immature Granulocyte Absolute 0.06 K/mm3 (0.00-0.031); Immature Granulocyte Percent A 0.8 % (0-0.5); Lymphocytes Absolute Auto 1.35 K/mm3 (0.9-3.2); Lymphocytes Percent Auto 17.8 % (18.3-44.2); Mean Corpuscular Hemoglobin 26.9 pg (26-34); Mean Corpuscular Volume 84.1 fl (80-100); Mean Platelet Volume 11.2 fl (7.4-10.4); Monocytes Absolute Auto 1.2 K/mm3 (0.1-0.6); Monocytes Percent Auto 15.2 % (2.6-8.5); Neutrophils Absolute Auto 4.8 K/mm3 (1.3-6.7); Neutrophils Percent Auto 63.9 % (45.5-73.1); Nucleated Red Blood Cells Perc 0.3 % (0.0-0.2); Platelet Count Result 350 k/mm3 (150-375); Red Blood Count 5.79 M/mm3 (4.6-6.20); Red Cell Distribution Width 19.8 % (11.5-14.5); White Blood Count 7.6 K/mm3 (4.5-10.0)
[2024-04-13 09:40] LABS: Lactic Acid Reflex 2.4 mmol/L (0.7-2.0)
[2024-04-13 09:47] LABS: Partial Thromboplastin Time 35.5 Seconds (22.3-36.8); Prothrombin Time 32.1 Seconds (11.1-14.7)
[2024-04-13 09:54] LABS: Alanine Aminotransferase 20 U/L (6-50); Albumin Level 3.5 g/dL (3.5-5.1); Alkaline Phosphatase 114 U/L (38-126); Anion Gap 8 mmol/L (4-12); Aspartate Amino Transferase 29 U/L (17-59); Bilirubin,Total 0.8 mg/dL (0.2-1.3); Blood Urea Nitrogen 20 mg/dL (9-20); CRP 3.5 mg/dL (<1.0); Calcium 8.5 mg/dL (8.4-10.2); Carbon Dioxide 28 mmol/L (22-30); Chloride 103 mmol/L (98-107); Estimated CRCL calculation 56 ml/min; Estimated Glomerular Filt Rate 53; Glucose 146 mg/dL (65-110); Potassium 3.9 mmol/L (3.4-5.0); Sodium 139 mmol/L (137-145)
[2024-04-13 09:59] LABS: Influenza A QL RT-PCR Negative (Negative); Influenza B QL RT-PCR Negative (Negative); RSV RNA, RT-PCR Negative (Negative); SARS-CoV-2 RNA PCR Negative (Negative)
--- NOTE | 2024-04-13 10:38 | ED.SOB ---
HPI - SOB/Dyspnea General Chief Complaint: Shortness of Breath/Dyspnea Stated Complaint: weakness & SOB Time Seen by Provider: 04/13/24 08:30 History of Present Illness HPI Narrative: Patient is an 83-year-old male who presents ER with weakness. Ongoing over last couple of days. Associated with shortness of breath and cough. No documented fevers. No chest pain or chest pressure. Denies nausea vomiting. Due to patient's weakness he is requiring assistance with going from sitting standing. No known sick contacts. Upon arrival here patient's blood pressure is low in the 90s. Patient also reports he has history of DVT and is on Coumadin. He has a IVC filter. Related Data Home Medications Medication Instructions Recorded Confirmed flecainide 50 mg tablet 50 mg PO Q12H 06/21/19 04/13/24 docusate sodium 50 mg capsule 50 mg PO BID 06/14/20 04/13/24 loratadine 10 mg capsule 10 mg PO DAILY 06/14/20 04/13/24 lactobacillus combination no.9 4 4,000 mmu cells PO DAILY 11/07/21 04/13/24 billion cell capsule (Adult 50 Plus Probiotic) metoprolol tartrate 25 mg tablet 12.5 mg PO BID 09/05/23 04/13/24 acetaminophen 650 mg 650 mg PO Q12H PRN pain 1-4 10/12/23 04/13/24 tablet,extended release (Tylenol Arthritis Pain) alpha lipoic acid 200 mg capsule 200 mg PO DAILY 04/13/24 04/13/24 cholecalciferol (vitamin D3) 50 50 mcg PO DAILY 04/13/24 04/13/24 mcg (2,000 unit) capsule Allergies Allergy/AdvReac Type Severity Reaction Status Date / Time No Known Allergies Allergy Verified 04/13/24 13:24 Review of Systems Review of Systems: All systems reviewed & are unremarkable except as noted in HPI and below Constitutional: Constitutional: Reports chills, Reports fatigue, Denies fever(s) and Reports weakness ENT: Reports system reviewed and no additional complaints, except as documented Cardiovascular: Cardiovascular: Reports no additional cardiovascular complaints Respiratory: Respiratory: Reports cough, Reports dyspnea and Denies wheezing Gastrointestinal: Gastrointestinal: Reports no additional gastrointestinal complaints Genitourinary: Genitourinary: Reports no additional male genitourinary complaints Integumentary/Breasts: Skin/Breast: Reports system reviewed and no additional complaints, except as docu [facility] Past Medical History Medical History (Updated 04/13/24 @ 19:05 by Arturo Ny MD) Acute exacerbation of chronic obstructive airways disease Ankle fracture, bimalleolar, closed Ankle syndesmosis disruption Arthritis of right shoulder region Atrial fibrillation BPH (benign prostatic hyperplasia) Chronic antibiotic suppression Chronic anticoagulation Constipation COPD (chronic obstructive pulmonary disease) Diabetes mellitus with neuropathy High cholesterol History of deep vein thrombosis (DVT) of lower extremity History of hemorrhoids History of pulmonary embolism Hypertension Hypothyroidism determined by thyroid function test Infection of spine Left ankle pain Olecranon bursitis of right elbow Osteomyelitis, chronic Pneumonia due to COVID-19 virus Recurrent deep vein thrombosis (DVT) Right arm pain Right shoulder strain Rotator cuff arthropathy of right shoulder Rupture of left Achilles tendon SOB (shortness of breath) Spleen absent Vision changes Weakness of both lower extremities Surgical History Surgical History H/O bilateral cataract extraction H/O colonoscopy with polypectomy H/O splenectomy H/O total knee replacement Bilaterally History of back surgery x2 ([facility]), x1 ([facility]) History of embolic filter insertion History of pancreatic surgery Removal of pancreatic mass ([facility]) Hx of hernia repair S/P rotator cuff repair Total knee replacement status Family History Family History Grandparent Diabetes mellitus Father Family history of cardiovascular disea
[2024-04-13] MEDS: AZITHROMYCIN 500 MG/NS 250 ML 500 MG/250 ML BAG 250 MG IVPB (11:44)
[2024-04-13 12:21] LABS: Reflex Lactic Acid Yes or No Add Lactic
[2024-04-13] MEDS: SODIUM CHLORIDE 0.9% IV 1,000 ML 125 ML IV CONT (12:45)
--- NOTE | 2024-04-13 13:02 | ADMGEN ---
This patient, Neal Amaro, was admitted to [facility] Surg Room 314-01. Patient/family oriented to hospital policies and general routines including ID bracelet, bed and alarms, visiting hours, pain management, procedures, bathroom and other care routines, personal items, smoking policy, room service/diet, and visiting hours. Information on how to activate the Rapid Response Team has been discussed. Patient/Family are encouraged to report perceived risks to care and to ask questions if they do not understand what they are told or what they should do. Report from Dena in the ER.
[2024-04-13 13:28] LABS: Lactic Acid 1.6 mmol/L (0.7-2.0)
--- NOTE | 2024-04-13 16:25 | PM.IMHP ---
H&P: HPI History of Present Illness Date/Time: 04/13/24 16:25 Chief Complaint: Shortness of breath Narrative: 83yo male with COPD, AFib, DM, HTN and asplenia here for shortness of breath. Patient was seen by Orthopedics on April 11 for follow-up of left hand pain and left knee swelling. X-rays of the left knee and left hand showed no acute changes. Patient was feeling well without complaints until the following day when he felt weak. He had trouble getting up out of a chair. He had trouble walking long distances. He usually walks with a walker. He developed a cough productive white sputum. No odynophagia or dysphagia. No fever or chills. No chest pain or palpitations. He does have chronic shortness of breath but this worsened over the past 2 days. The left knee swelling has not changed significantly over the past 6 weeks. No nausea, vomiting diarrhea or constipation. No sick contacts. Nobody with flu or COVID. No wheezing. No abdominal pain or back pain. No dysuria or hematuria. He is visually impaired. On the morning of admission patient was more short of breath. His SpO2 was in the 70s by a home monitor. EMS was called and patient was 90% on room air. Glucose was 130. No hx of LOTUS. He was placed on oxygen and brought to the emergency room for evaluation. In the ED, his vital signs were normal. He was 99% on room air. BP 130/74 but dropped to 98/57 on repeat. CBC was normal. INR was 3.0. CMP normal except for glucose 146. Lactic 2.4 but normal on repeat. CRP 3.5. Influenza, RSV and COVID PCR were negative. EKG showing AFib with controlled rate and inferior Q waves. CXR showing airspace opacities in the right lower lung zone and left mid and lower lung zones. He was given IV fluids and his blood pressure improved. He was started on Rocephin and Azithromycin after BCx collected. He was admitted for further care. Review of Systems Review of Systems: All systems reviewed & are unremarkable except as noted in HPI and below [facility] Past Medical History Medical History (Updated 04/13/24 @ 16:37 by Alex Christopher MD) Acute exacerbation of chronic obstructive airways disease Ankle fracture, bimalleolar, closed Ankle syndesmosis disruption Arthritis of right shoulder region Atrial fibrillation BPH (benign prostatic hyperplasia) Chronic antibiotic suppression Chronic anticoagulation Constipation COPD (chronic obstructive pulmonary disease) Diabetes mellitus with neuropathy High cholesterol History of deep vein thrombosis (DVT) of lower extremity History of hemorrhoids History of pulmonary embolism Hypertension Hypothyroidism determined by thyroid function test Infection of spine Left ankle pain Olecranon bursitis of right elbow Osteomyelitis, chronic Pneumonia due to COVID-19 virus Recurrent deep vein thrombosis (DVT) Right arm pain Right shoulder strain Rotator cuff arthropathy of right shoulder Rupture of left Achilles tendon SOB (shortness of breath) Spleen absent Vision changes Weakness of both lower extremities Surgical History Surgical History H/O bilateral cataract extraction H/O colonoscopy with polypectomy H/O splenectomy H/O total knee replacement Bilaterally [facility] History of embolic filter insertion History of pancreatic surgery Removal of pancreatic mass ([facility]) Hx of hernia repair S/P rotator cuff repair Total knee replacement status Family History Family History Grandparent Diabetes mellitus Father Family history of cardiovascular disease Intracranial aneurysm Mother Dvt femoral (deep venous thrombosis) Sibling Throat cancer Sister Acute myocardial infarction Brother Social History Social History (Updated 04/13/24 @ 17:46 by Alex Christopher MD) Social History: The patient is and
[2024-04-13] MEDS: WARFARIN (*PBKC) 3 MG TABLET 6 MG PO (18:29)
[2024-04-13] MEDS: BACLOFEN 10 MG TABLET PO (18:29)
[2024-04-13] MEDS: DOCUSATE SODIUM LIQ 100 MG/10 ML UDC 50 MG PO (18:30)
[2024-04-13] MEDS: PREGABALIN (*CRX) 75 MG CAPSULE 150 MG PO (18:33)
[2024-04-13 19:49] LABS: MRSA (PCR) NOT DETECTED (NOT DETECTE)
[2024-04-13] MEDS: IPRATROPIUM 0.5 MG/ALBUTEROL SULFATE 2.5 MG AMPUL.NEB 3 ML INHALATION (20:33)
[2024-04-13] MEDS: AZELASTINE HCL NASAL 0.1% 137 MCG/SPR 30 ML BTL 2 SPRAY NASAL (20:48)
[2024-04-13] MEDS: DOXYCYCLINE HYCLATE 100 MG TABLET PO (20:48)
[2024-04-13] MEDS: FLECAINIDE ACETATE 50 MG TABLET PO (20:49)
[2024-04-13] MEDS: METOPROLOL TARTRATE 12.5 MG TABLET PO (20:49)
[2024-04-13] MEDS: INSULIN GLARGINE (*BKC) 100 UNITS/ML 32 UNITS SUB-Q (20:52)
[2024-04-13 21:06] LABS: Glucose Point of Care 206 mg/dl (65-105)
[2024-04-14] VITALS (10 sets, daily range): BP systolic 92–138; BP diastolic 59–76; PULSE 62–70; RESP 17–22; TEMP 36.2–36.8; O2SAT 95–98
[2024-04-14] MEDS: HYDROcodone/acetaminophen (*CRX) 5-325 MG TABLET 1 TAB PO ×3 (01:03→22:53)
[2024-04-14] MEDS: traZODone HCL 50 MG TABLET PO (02:45)
[2024-04-14] MEDS: LEVOTHYROXINE SODIUM 50 MCG TABLET PO (05:29)
[2024-04-14 06:26] LABS: Basophils Percent Auto 0.6 % (0.2-1.2); Eosinophils Absolute Auto 0.2 K/mm3 (0-0.3); Eosinophils Percent Auto 3.2 % (0-4.4); Hematocrit 48.9 % (42.0-52.0); Hemoglobin 15.3 g/dL (14.0-18.0); Immature Granulocyte Absolute 0.06 K/mm3 (0.00-0.031); Lymphocytes Absolute Auto 1.65 K/mm3 (0.9-3.2); Lymphocytes Percent Auto 26.4 % (18.3-44.2); Mean Corpuscular HGB Conc 31.3 g/dl (32-36); Mean Corpuscular Hemoglobin 26.6 pg (26-34); Mean Corpuscular Volume 84.9 fl (80-100); Mean Platelet Volume 10.1 fl (7.4-10.4); Monocytes Percent Auto 15.7 % (2.6-8.5); Neutrophils Absolute Auto 3.3 K/mm3 (1.3-6.7); Neutrophils Percent Auto 53.1 % (45.5-73.1); Platelet Count Result 319 k/mm3 (150-375); Red Blood Count 5.76 M/mm3 (4.6-6.20); Red Cell Distribution Width 19.9 % (11.5-14.5); White Blood Count 6.3 K/mm3 (4.5-10.0)
[2024-04-14 06:36] LABS: Albumin Level 3.1 g/dL (3.5-5.1); Anion Gap 6 mmol/L (4-12); Blood Urea Nitrogen 19 mg/dL (9-20); CRP 2.6 mg/dL (<1.0); Carbon Dioxide 27 mmol/L (22-30); Chloride 107 mmol/L (98-107); Estimated CRCL calculation 70 ml/min; Estimated Glomerular Filt Rate 58; Glucose 121 mg/dL (65-110); Magnesium 2.1 mg/dL (1.6-2.3); Phosphorus 3.2 mg/dL (2.5-4.5); Sodium 140 mmol/L (137-145)
[2024-04-14 06:37] LABS: INR 2.8; Prothrombin Time 30.5 Seconds (11.1-14.7)
[2024-04-14 06:41] LABS: Hemoglobin A1C 7.8 % (<5.7)
[2024-04-14 06:42] LABS: NT Pro B Type Natriuretic Pept 2250 pg/mL (19.9-100)
[2024-04-14 08:13] LABS: Glucose Point of Care 186 mg/dl (65-105)
[2024-04-14] MEDS: FLUTICASONE/UMECLIDIN/VILANTER 200-62.5-25 MCG ELLIPTA 1 PUFF INHALATION (08:20)
[2024-04-14] MEDS: AZELASTINE HCL NASAL 0.1% 137 MCG/SPR 30 ML BTL 2 SPRAY NASAL ×2 (08:50→20:23)
[2024-04-14] MEDS: BACLOFEN 10 MG TABLET PO ×3 (08:50→16:35)
[2024-04-14] MEDS: ATORVASTATIN 20 MG TABLET PO (08:50)
[2024-04-14] MEDS: FLECAINIDE ACETATE 50 MG TABLET PO ×2 (08:51→20:23)
[2024-04-14] MEDS: CHOLECALCIFEROL 1,000 UNITS TABLET 2000 UNITS PO (08:51)
[2024-04-14] MEDS: LORATADINE 10 MG TABLET PO (08:51)
[2024-04-14] MEDS: EMPAGLIFLOZIN 10 MG TABLET PO (08:51)
[2024-04-14] MEDS: DOXYCYCLINE HYCLATE 100 MG TABLET PO ×2 (08:51→20:23)
[2024-04-14] MEDS: PANTOPRAZOLE 40 MG TABLET PO (08:52)
[2024-04-14] MEDS: METOPROLOL TARTRATE 12.5 MG TABLET PO ×2 (08:52→20:22)
[2024-04-14] MEDS: TAMSULOSIN HCL 0.4 MG CAPSULE 0.8 MG PO (08:52)
[2024-04-14] MEDS: PREGABALIN (*CRX) 75 MG CAPSULE 150 MG PO ×3 (08:52→16:35)
[2024-04-14] MEDS: INSULIN ASPART (*BKC) 100 UNITS/ML SUB-Q ×3 (08:53→16:38)
[2024-04-14 11:56] LABS: Glucose Point of Care 155 mg/dl (65-105)
--- NOTE | 2024-04-14 13:37 | PM.IMPN ---
Progress Note: A&P Assessment and Plan (1) Pneumonia: Code(s): J18.9 - Pneumonia, unspecified organism Status: Acute Assessment and Plan: Patient presents with complaints of cough and weakness. His chronic SOB was worsen as well. CXR showing airspace opacities in the right lower lung zone and left mid and lower lung zones. Influenza, RSV and COVID PCR were negative. No fevers or elevated WBC. BP was soft but responded well with fluids. He was on Doxycycline for suppressive measures from his chronic osteomyelitis of his back. Recently changed to Augmentin once daily suppressive therapy. He has not received abx for treatment since August. Concern for PNA. BCx collected and Rocephin/Azithromycin started. Azithro changed to Doxy since Azithro interacts with Flecanide. MRSA nasal swab negative. Sputum cx not performed. Legionella and pneumococcal urine Ag pending BCx NGTD. Contnue Albuterol prn. Continue abx. (2) Weakness: Code(s): R53.1 - Weakness Status: Acute Assessment and Plan: [place] related to PNA. PT/OT ordered. (3) COPD (chronic obstructive pulmonary disease): Qualifiers: COPD type: unspecified COPD Qualified Code(s): J44.9 - Chronic obstructive pulmonary disease, unspecified Code(s): J44.9 - Chronic obstructive pulmonary disease, unspecified Status: Acute Assessment and Plan: Patient with hx of heavy tobacco use. No wheezing noted on exam. Albuterol prn (4) Atrial fibrillation: Code(s): I48.91 - Unspecified atrial fibrillation Status: Acute Assessment and Plan: Patient has paroxysmal AFib and is on Coumadin. Also with hx of DVT/PE. He was on Eliquis in the past but had a severe episode of hematuria and was changed to Coumadin. Past EKGs showing NSR at times. INR 2.8 Daily INR. Continue Coumadin. Continue flecanide. (5) Diabetes mellitus with neuropathy: Qualifiers: Diabetes mellitus usp insulin use: with usp use Diabetes mellitus type: type 2 Qualified Code(s): E11.40 - Type 2 diabetes mellitus with diabetic neuropathy, unspecified; Z79.4 - retirement (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 Code(s): E11.40 - Type 2 diabetes mellitus with diabetic neuropathy, unspecified Status: Acute Assessment and Plan: A1c 7.8. The patient's blood glucose was reviewed on 04/14 Glucose remains well controlled. Continue AccuCheks covering with sliding scale. Hypoglycemia protocol available as needed. Continue lantus at lower rate. (6) Hypertension: Qualifiers: Hypertension type: essential hypertension Qualified Code(s): I10 - Essential (primary) hypertension Code(s): I10 - Essential (primary) hypertension Status: Chronic Assessment and Plan: BP soft on admisison that improved with IV fluids. Metoprolol resumed and BP tolerting this. Resume Lasix in the morning if BP remains stable. Plan DVT prophylaxis - Coumadin Code status - DNR Subjective Date/time seen: 04/14/24 13:37 Interval history: 83yo male with COPD, AFib, DM, HTN and asplenia here for shortness of breath. Walking in the room. SOB better. Slept poorly. Eating well. Exam Narrative: AF 97.2 138/76 70 18 98% ra Gen - NARD Chest - left base crackles o/w clear CV - RRR. S1-S2. Abd - soft. obese. midline large reducible hernia. +BS Ext - trace L>R edema Psych - normal mood and affect. Patient is pleasant and cooperative. Skin - warm and dry. dry skin with scale Objective Data Vital Signs Vital Signs: Vital Signs - 24 hr 04/13/24 14:01 04/13/24 14:00 04/13/24 20:49 Temperature 96.9 F L Pulse Rate 71 91 Respiratory Rate 16 Blood Pressure 110/72 Pulse Oximetry 97 99 Oxygen Delivery Room Air 04/13/24 20:49 04/13/24 20:45 04/13/24 20:15 Temperature 96.9 F L Pulse Rate 91 87 75 Respiratory Rate 18 20 Blood Pressure 119/60 Pulse O
[2024-04-14 16:18] LABS: Glucose Point of Care 141 mg/dl (65-105)
[2024-04-14] MEDS: WARFARIN (*PBKC) 3 MG TABLET 6 MG PO (16:35)
[2024-04-14] MEDS: INSULIN GLARGINE (*BKC) 100 UNITS/ML 32 UNITS SUB-Q (20:24)
[2024-04-14 21:34] LABS: Glucose Point of Care 199 mg/dl (65-105)
[2024-04-14] MEDS: diphenhydrAMINE HCl INJ 50 MG/ML VIAL 25 MG IV PUSH (22:53)
[2024-04-15] MEDS: LEVOTHYROXINE SODIUM 50 MCG TABLET PO (05:43)
[2024-04-15 05:47] VITALS: BP 100/83; PULSE 56; RESP 24; TEMP 36.1; O2SAT 98
[2024-04-15 07:35] LABS: INR 3.2; Prothrombin Time 33.2 Seconds (11.1-14.7)
[2024-04-15 07:39] LABS: Anion Gap 4 mmol/L (4-12); Blood Urea Nitrogen 19 mg/dL (9-20); Calcium 8.2 mg/dL (8.4-10.2); Carbon Dioxide 29 mmol/L (22-30); Chloride 106 mmol/L (98-107); Estimated CRCL calculation 76 ml/min; Estimated Glomerular Filt Rate > 60; Glucose 123 mg/dL (65-110); Potassium 4.1 mmol/L (3.4-5.0); Sodium 139 mmol/L (137-145)
[2024-04-15 08:33] LABS: Glucose Point of Care 124 mg/dl (65-105)
[2024-04-15 08:43] VITALS: PULSE 61
[2024-04-15] MEDS: CHOLECALCIFEROL 1,000 UNITS TABLET 2000 UNITS PO (08:43)
[2024-04-15] MEDS: FLECAINIDE ACETATE 50 MG TABLET PO (08:43)
[2024-04-15] MEDS: PREGABALIN (*CRX) 75 MG CAPSULE 150 MG PO ×2 (08:43→12:38)
[2024-04-15] MEDS: DOXYCYCLINE HYCLATE 100 MG TABLET PO (08:43)
[2024-04-15] MEDS: TAMSULOSIN HCL 0.4 MG CAPSULE 0.8 MG PO (08:43)
[2024-04-15] MEDS: ATORVASTATIN 20 MG TABLET PO (08:43)
[2024-04-15] MEDS: PANTOPRAZOLE 40 MG TABLET PO (08:43)
[2024-04-15] MEDS: BACLOFEN 10 MG TABLET PO ×2 (08:46→12:38)
[2024-04-15 08:49] VITALS: PULSE 61
[2024-04-15] MEDS: METOPROLOL TARTRATE 12.5 MG TABLET PO (08:49)
[2024-04-15] MEDS: LORATADINE 10 MG TABLET PO (08:50)
[2024-04-15] MEDS: EMPAGLIFLOZIN 10 MG TABLET PO (08:50)
[2024-04-15] MEDS: FUROSEMIDE 20 MG TABLET BY MOUTH (08:50)
[2024-04-15] MEDS: DOCUSATE SODIUM LIQ 100 MG/10 ML UDC 50 MG PO (08:50)
[2024-04-15] MEDS: INSULIN ASPART (*BKC) 100 UNITS/ML SUB-Q ×2 (08:51→12:38)
[2024-04-15] MEDS: FLUTICASONE/UMECLIDIN/VILANTER 200-62.5-25 MCG ELLIPTA 1 PUFF INHALATION ×2 (08:51→10:31)
[2024-04-15] MEDS: AZELASTINE HCL NASAL 0.1% 137 MCG/SPR 30 ML BTL 2 SPRAY NASAL (08:56)
[2024-04-15 10:32] VITALS: PULSE 88; RESP 20
[2024-04-15 11:18] LABS: Glucose Point of Care 161 mg/dl (65-105)
[2024-04-15 14:00] VITALS: BP 123/55; PULSE 56; RESP 16; TEMP 35.9; O2SAT 99
--- NOTE | 2024-04-15 14:08 | PM.DS ---
DS: Admitting Diagnosis Discharge Date 04/15/24 Admitting Diagnosis Shortness of breath DS: Discharge Diagnosis Discharge Diagnosis (1) Pneumonia: Code(s): J18.9 - Pneumonia, unspecified organism Status: Acute (2) Weakness: Code(s): R53.1 - Weakness Status: Acute (3) COPD (chronic obstructive pulmonary disease): Qualifiers: COPD type: unspecified COPD Qualified Code(s): J44.9 - Chronic obstructive pulmonary disease, unspecified Code(s): J44.9 - Chronic obstructive pulmonary disease, unspecified Status: Acute (4) Atrial fibrillation: Code(s): I48.91 - Unspecified atrial fibrillation Status: Acute (5) Diabetes mellitus with neuropathy: Qualifiers: Diabetes mellitus type: type 2 Diabetes mellitus jail insulin use: with jail use Qualified Code(s): E11.40 - Type 2 diabetes mellitus with diabetic neuropathy, unspecified; 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 Please see H&P for details Hospital Course: In the ED, his vital signs were normal. He was 99% on room air. BP 130/74 but dropped to 98/57 on repeat. CBC was normal. INR was 3.0. CMP normal except for glucose 146. Lactic 2.4 but normal on repeat. CRP 3.5. Influenza, RSV and COVID PCR were negative. EKG showing AFib with controlled rate and inferior Q waves. CXR showing airspace opacities in the right lower lung zone and left mid and lower lung zones. He was given IV fluids and his blood pressure improved. He was started on Rocephin and Azithromycin after BCx collected. BNP elevated but clinical felt more likely PNA then CHF. MRSA nasal swab negative. Sputum cx not performed. Legionella and pneumococcal urine Ag pending. BCx NGTD. Metoprolol resumed and BP tolerating this. We were able to resume Lasix as well. He worked with therapy and has been up walking with walker in the halls. He overall did well and was able to be discharged home on 04/15/24. Status at Discharge Cognitive/behavioral status at discharge: stable Time Spent with Patient Time attestation: Total time spent providing and/or coordinating discharge services: 34 minutes Time spent: Greater than 30 minutes Exam Narrative: AF 97.0 100/83 88 20 98% ra Gen - NARD Chest - CTA bilaterally, nml RR CV - RRR. S1-S2. Abd - soft. obese. midline large reducible hernia. +BS Ext - trace L>R edema Psych - normal mood and affect. Patient is pleasant and cooperative. Skin - warm and dry. DS: Data Data Completed and Pending Labs on day of discharge: Labs from last 24 hours 04/15/24 04/15/24 04/15/24 11:12 07:25 07:14 PT 33.2 H INR 3.2 Sodium 139 Potassium 4.1 Chloride 106 Carbon Dioxide 29 Anion Gap 4 BUN 19 Creatinine 1.10 Estim Creat Clear Calc 76 Estimated GFR > 60 Glucose 123 H POC Capillary Glucose 161 H 124 H Calcium 8.2 L 04/14/24 04/14/24 20:14 16:16 PT INR Sodium Potassium Chloride Carbon Dioxide Anion Gap BUN Creatinine Estim Creat Clear Calc Estimated GFR Glucose POC Capillary Glucose 199 H 141 H Calcium Preliminary micro results at discharge 04/13/24 09:16 Blood Culture - Preliminary Blood 04/13/24 09:17 Blood Culture - Preliminary Blood Discharge Plan Discharge Attending physician on discharge: Alex Christopher Discharging Clinician: Alex Christopher Anticipated Discharge Date/Time: 04/15/24 1
[2024-04-18 18:13] LABS: Pneumococcal Antigen Urine NOT DETECTED
[2024-04-21 01:44] LABS: Legionella pneumophila Ag Ur NOT DETECTED
--- NOTE | 2024-04-26 10:33 | PC.NURSE ---
Blood cx are negative. Urine for Legionella and Pneumococcal are both not detected. Dr. Ashwin salmon.
== END 2024-04-15 15:25 | disposition home health service (06) ==
LOC: ANHED 08:50 → ANH3MEDSUR 12:00
PROVIDERS: Admitting Provider General Practice; Emergency Provider Emergency Medicine; PCP Family Medicine; Visit Provider Internal Medicine
DX: J18.9 Pneumonia, unspecified organism (principal); J44.0 Chronic obstructive pulmonary disease with (acute) lower respiratory infection; R53.1 Weakness; N40.0 Benign prostatic hyperplasia without lower urinary tract symptoms; E11.40 Type 2 diabetes mellitus with diabetic neuropathy, unspecified; E78.00 Pure hypercholesterolemia, unspecified; I10 Essential (primary) hypertension; E11.69 Type 2 diabetes mellitus with other specified complication; M86.60 Other chronic osteomyelitis, unspecified site; E03.9 Hypothyroidism, unspecified; Z86.718 Personal history of other venous thrombosis and embolism; Z86.711 Personal history of pulmonary embolism; Z87.891 Personal history of nicotine dependence; Z66 Do not resuscitate; Z79.51 Long term (current) use of inhaled steroids; Z79.4 Long term (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; Z79.84 Long term (current) use of oral hypoglycemic drugs; Z20.822 Contact with and (suspected) exposure to COVID-19
CPT/HCPCS: 36415; 71046; 80048; 80053; 80069; 82948; 83036; 83605; 83735; 83880; 85025; 85610; 85730; 86140; 87040; 87070; 87205; 87449; 87637; 87641; 87899; 93005; 94640; 96365; 96366; 96375; 96376; 97110; 97116; 97161; 99285; A9270; G0378; J0456; J0696; J1200; J1815; J7030

== ENCOUNTER 2024-05-03 15:32 | Emergency (ER) | payer MEDICARE, SELFPAY ==
--- NOTE | ~2024-05-03 | XR_ITS ---
EXAMINATION: XR chest 2V Exam Date/Time: 05/03/2024 16:00 CDT HISTORY: chest pain/rib pain recent pneumonia Comparison: 04/13/2024. RESULT: Lines, tubes, and devices: None. Lungs and pleura: Lateral view limited by body habitus. Streaky bibasilar atelectasis. Mild left cos tophrenic angle blunting. Cardiomediastinal silhouette: Stable. Other: No acute osseous or upper abdominal finding. IMPRESSION: Small left pleural effusion. Reviewed, dictated and finalized at location K.
[2024-05-03 15:34] VITALS: BP 151/67; PULSE 59; RESP 22; TEMP 36.3; O2SAT 97
--- NOTE | 2024-05-03 15:35 | ECG_ITS ---
Test Date: 2024-05-03 15:39:15 Measurements Intervals [place] Rate: 60 P: 17 AK: 243 QRS: 21 QRSD: 96 T: 38 QT: 412 QTc: 413 Interpretive Statements SINUS RHYTHM WITH FIRST DEGREE AV BLOCK LOW QRS VOLTAGE IN PRECORDIAL LEADS [QRS DEFLECTION < 1.0 mV IN CHEST LEADS] Compared to ECG 04/13/2024 09:44:19 First degree AV block now present Low QRS voltage now present Atrial fibrillation no longer present Electronically Signed On 05-03-2024 15:44:06 CDT by Curtis Hughes M.D.
[2024-05-03 15:55] LABS: Basophils Percent Auto 0.6 % (0.2-1.2); Eosinophils Absolute Auto 0.2 K/mm3 (0-0.3); Eosinophils Percent Auto 3.1 % (0-4.4); Hemoglobin 15.1 g/dL (14.0-18.0); Immature Granulocyte Absolute 0.04 K/mm3 (0.00-0.031); Immature Granulocyte Percent A 0.6 % (0-0.5); Lymphocytes Absolute Auto 1.57 K/mm3 (0.9-3.2); Lymphocytes Percent Auto 25.3 % (18.3-44.2); Mean Corpuscular HGB Conc 32.1 g/dl (32-36); Mean Corpuscular Hemoglobin 27.2 pg (26-34); Mean Corpuscular Volume 84.5 fl (80-100); Mean Platelet Volume 10.4 fl (7.4-10.4); Monocytes Percent Auto 16.8 % (2.6-8.5); Neutrophils Absolute Auto 3.3 K/mm3 (1.3-6.7); Neutrophils Percent Auto 53.6 % (45.5-73.1); Platelet Count Result 296 k/mm3 (150-375); Red Blood Count 5.56 M/mm3 (4.6-6.20); Red Cell Distribution Width 19.5 % (11.5-14.5); White Blood Count 6.2 K/mm3 (4.5-10.0)
[2024-05-03 16:05] LABS: INR 2.4; Prothrombin Time 26.5 Seconds (11.1-14.7)
[2024-05-03 16:06] LABS: Alanine Aminotransferase 21 U/L (6-50); Albumin Level 3.5 g/dL (3.5-5.1); Alkaline Phosphatase 123 U/L (38-126); Anion Gap 7 mmol/L (4-12); Aspartate Amino Transferase 29 U/L (17-59); Bilirubin,Total 0.5 mg/dL (0.2-1.3); Blood Urea Nitrogen 18 mg/dL (9-20); Calcium 8.5 mg/dL (8.4-10.2); Carbon Dioxide 26 mmol/L (22-30); Chloride 106 mmol/L (98-107); Estimated Glomerular Filt Rate > 60; Glucose 167 mg/dL (65-110); Lipase 28 U/L (23-300); Partial Thromboplastin Time 31.2 Seconds (22.3-36.8); Potassium 4.3 mmol/L (3.4-5.0); Sodium 139 mmol/L (137-145)
[2024-05-03 16:18] LABS: Troponin I < 0.012 ng/mL (0.000-0.034)
--- NOTE | 2024-05-03 17:58 | ED.CHESTPAIN ---
HPI - Chest Pain General Chief Complaint: Chest Pain Stated Complaint: R side pain Time Seen by Provider: 05/03/24 17:58 Focused HPI: This is a 83 year old male that presents to the ER for right sided chest pain. Ongoing since last night. The pain is intermittent in nature and worse with movement and breathing. Reports he was recently discharged for pneumonia. Has continued to have cough . Denies fevers. GENERAL: Elderly, well-nourished, and in no acute distress. HEAD: Normocephalic, atraumatic. CHEST: Clear to auscultation. ?No respiratory distress. HEART: Regular rate and rhythm.? NEURO: ?Alert and oriented x3. Patient screened in triage and initial orders placed.? ?Additional care and disposition to be based upon?diagnostic testing and treatment. Related Data Home Medications Medication Instructions Recorded Confirmed flecainide 50 mg tablet 50 mg PO Q12H 06/21/19 04/21/24 docusate sodium 50 mg capsule 50 mg PO BID 06/14/20 04/21/24 loratadine 10 mg capsule 10 mg PO DAILY 06/14/20 04/21/24 lactobacillus combination no.9 4 4,000 mmu cells PO DAILY 11/07/21 04/21/24 billion cell capsule (Adult 50 Plus Probiotic) metoprolol tartrate 25 mg tablet 12.5 mg PO BID 09/05/23 04/21/24 acetaminophen 650 mg 650 mg PO Q12H PRN pain 1-4 10/12/23 04/21/24 tablet,extended release (Tylenol Arthritis Pain) alpha lipoic acid 200 mg capsule 200 mg PO DAILY 04/13/24 04/21/24 cholecalciferol (vitamin D3) 50 50 mcg PO DAILY 04/13/24 04/21/24 mcg (2,000 unit) capsule Allergies Allergy/AdvReac Type Severity Reaction Status Date / Time No Known Drug Allergies Allergy Unknown Unknown Verified 04/21/24 10:35 [facility] Past Medical History Medical History Acute exacerbation of chronic obstructive airways disease Ankle fracture, bimalleolar, closed Ankle syndesmosis disruption Arthritis of right shoulder region Atrial fibrillation BPH (benign prostatic hyperplasia) Chronic antibiotic suppression Chronic anticoagulation Constipation COPD (chronic obstructive pulmonary disease) Diabetes mellitus with neuropathy High cholesterol History of deep vein thrombosis (DVT) of lower extremity History of hemorrhoids History of pulmonary embolism Hypertension Hypothyroidism determined by thyroid function test Infection of spine Left ankle pain Olecranon bursitis of right elbow Osteomyelitis, chronic Pneumonia due to COVID-19 virus Recurrent deep vein thrombosis (DVT) Right arm pain Right shoulder strain Rotator cuff arthropathy of right shoulder Rupture of left Achilles tendon SOB (shortness of breath) Spleen absent Vision changes Weakness of both lower extremities Surgical History Surgical History H/O bilateral cataract extraction H/O colonoscopy with polypectomy H/O splenectomy H/O total knee replacement Bilaterally History of back surgery x2 ([facility]), x1 ([facility]) History of embolic filter insertion History of pancreatic surgery Removal of pancreatic mass ([facility]) Hx of hernia repair S/P rotator cuff repair Total knee replacement status Family History Family History Grandparent Diabetes mellitus Father Family history of cardiovascular disease Intracranial aneurysm Mother Dvt femoral (deep venous thrombosis) Sibling Throat cancer Sister Acute myocardial infarction Brother Social History Social History Social History: The patient is and remarried; he lives with his . Patient was smoking up to 3 packs of cigarettes a day. He is retired from [employer]. He drinks occasionally denies any illicit drugs. He is listed as a DNR. He nominates His to be the individual who would make medical decisions for him if he is unable. Smoking packs p
[2024-05-03 18:27] LABS: NT Pro B Type Natriuretic Pept 117 pg/mL (19.9-100)
[2024-05-03 19:19] LABS: D Dimer 0.55 ug/mL (<0.48)
[2024-05-03 20:24] VITALS: BP 186/89; PULSE 56; RESP 22; TEMP 36.3; O2SAT 95
--- NOTE | 2024-05-03 20:33 | PC.NURSE ---
Patient eloped from ER at this time.
== END 2024-05-03 20:33 | disposition left against medical advice (07) ==
PROVIDERS: Emergency Medicine; Emergency Provider Physician Assistant; PCP Family Medicine
DX: R07.9 Chest pain, unspecified (principal); J44.9 Chronic obstructive pulmonary disease, unspecified; E11.40 Type 2 diabetes mellitus with diabetic neuropathy, unspecified; E78.00 Pure hypercholesterolemia, unspecified; E03.9 Hypothyroidism, unspecified; I10 Essential (primary) hypertension; N40.0 Benign prostatic hyperplasia without lower urinary tract symptoms; M19.011 Primary osteoarthritis, right shoulder; Z96.653 Presence of artificial knee joint, bilateral; Z86.718 Personal history of other venous thrombosis and embolism; Z86.711 Personal history of pulmonary embolism; Z87.01 Personal history of pneumonia (recurrent); Z86.16 Personal history of COVID-19; Z87.891 Personal history of nicotine dependence; Z86.0100 Personal history of colon polyps, unspecified; Z98.42 Cataract extraction status, left eye; Z98.41 Cataract extraction status, right eye; Z90.81 Acquired absence of spleen; Z79.01 Long term (current) use of anticoagulants; Z79.4 Long term (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; Z79.899 Other long term (current) drug therapy; I44.0 Atrioventricular block, first degree
CPT/HCPCS: 36415; 71046; 80053; 83690; 83880; 84484; 85025; 85380; 85610; 85730; 93005; 99284

== ENCOUNTER 2024-05-09 07:57 | Outpatient (CLI) | payer MEDICARE, SELFPAY ==
--- NOTE | ~2024-05-09 | XR_ITS ---
XR chest 2V 05/09/2024 08:24 Indication: Pneumonia follow-up. Shortness of breath. Procedure: 2 view chest Comparison: Comparison to multiple prior studies sequentially, with oldest reviewed study dated 10/2023. Findings: Cardiomegaly. Healed left rib fractures. There are chronic coarse infiltrates of the left m id and lower thorax unchanged dating back to 10/04/2023, likely scarring. No pneumothorax. No acute o sseous abnormality. There are surgical changes of the upper lumbar spine. No acute focal pneumonia or edema. Chronic blunting left costophrenic recess, likely pleural thickening. Impression: 1: No acute cardiopulmonary disease. Reviewed, dictated and finalized at location B. Impression: 1: No acute cardiopulmonary disease.
--- NOTE | ~2024-05-09 | XR_ITS ---
Left Hand Technique: PA, oblique, and lateral views were obtained. Clinical History: Fracture follow-up COMPARISON: 04/11/2024 Findings: There is been minimal interval healing of oblique fracture of the fifth metacarpal shaft. T here is minimal callus formation as compared to prior exam. Alignment is unchanged. Osseous alignment is anatomic. Joint spaces are preserved. Soft tissues are unremarkable. Impression: Minimal interval healing of oblique fracture of the fifth metacarpal shaft. Reviewed, dictated and finalized at location M. Impression: Minimal interval healing of oblique fracture of the fifth metacarpal shaft.
== END 2024-05-09 07:58 | disposition home or self-care (01) ==
LOC: CHSIMG 07:59
PROVIDERS: PCP Family Medicine; Visit Provider Orthopaedic Surgery
DX: M79.642 Pain in left hand (principal); J18.9 Pneumonia, unspecified organism; S62.327D Displaced fracture of shaft of fifth metacarpal bone, left hand, subsequent encounter for fracture with routine healing
CPT/HCPCS: 71046; 73130

== ENCOUNTER 2024-07-18 07:50 | Outpatient (CLI) | payer MEDICARE, SELFPAY ==
--- NOTE | ~2024-07-18 | XR_ITS ---
XR elbow LT min 3V Ordering provider: Romero Mckenzie MD History: . GENERAL LT ELBOW PAIN,LROM . Comparison: None. FINDINGS: BONES: No acute fracture or dislocation. JOINT SPACES: Mild osteoarthritic changes. SOFT TISSUES: Normal. No definite joint effusion. IMPRESSION: No acute osseous abnormality left elbow. Reviewed, dictated and finalized at location A. DRILLER
--- OUTSIDE RECORDS SUMMARY | 2024-07-24 00:01 | XMS_ITS | Clinical Summary ---
Author Organization [facility] Address [address] [place] [address]. 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
--- OUTSIDE RECORDS SUMMARY | 2024-07-24 00:01 | XMS_ITS | Encounter Summary ---
Author Organization [facility] Address [address] [place] [address]. [place] [address] [place] [address] Care Team Providers Care Gluten Settling Tender Name Role Phone Unavailable Primary Care Provider Unavailabl e Encounter Details Date Type Department Care Team (Late st Contact Info) Description 07/17/[address] 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
--- OUTSIDE RECORDS SUMMARY | 2024-07-24 00:01 | XMS_ITS | Encounter Summary ---
Author Organization [facility] Address [address] [place] [address]. 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
--- OUTSIDE RECORDS SUMMARY | 2024-07-24 00:01 | XMS_ITS | Encounter Summary ---
Author Organization [facility] Address [address] [place] [address]. [place] [address] [place] [address] Care Team Providers Care Consultant Rn Name Role Phone Unavailable Primary Care Provider Unavailabl e Encounter Details Date Type Department Care Team (Late st Contact Info) Description 07/16/2015 Abstract [facility] 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
--- OUTSIDE RECORDS SUMMARY | 2024-07-24 00:01 | XMS_ITS | Encounter Summary ---
Author Organization [facility] Address [address] [place] [address]. [place] [address] [place] [address] Care Team Providers Care Bar Helper Name Role Phone Unavailable Primary Care Provider Unavailabl e Encounter Details Date Type Department Care Team (Late st Contact Info) Description 07/23/[address] [facility] [address] [place] [address] , Lyndsey Wilson MD Social History Tobacco Use Types Packs/Day Years Used Date Smoking Tobacco: Never Assessed Sex and Gender Information Value Date Recorded Sex Assigned at Not on file Legal Sex Male 5:58 PM INFORMATICA Gender Identity Not on file Sexual Orientation Not on file documented as of this encounter Plan of Treatment Not on file documented as of this encounter Visit Diagnoses Diagnosis Osteomyelitis of vertebra (CMS/HCC HHS/HCC) Unspecified osteomyelitis, other specified site documented in this encounter
--- OUTSIDE RECORDS SUMMARY | 2024-07-24 00:02 | XMS_ITS | Encounter Summary ---
Author Organization [facility] Address [address] [place] [address] Phone Care Team Providers Care Vending Mechanic Name Role Phone Myron Diop MD Primary Care Provider [phone] Mayra Casper MD Unavailable [phone] Encounter Details Date Type Department Care Team (Late st Contact Info) Description 08/25/2022 Telephone [facility] - [facility] [address] [place] [address] Jessica Ortiz MD [address] [place] [address] Social History Tobacco Use Types Packs/Day Years Used Date Smoking Tobacco: Former Cigarettes 3 25 0 [birth year]/03/1952 - 11/03/1977 Smokeless Tobacco: Never Alcohol Use Standard Drinks/Week Comments No 0 (1 standard drink = 0.6 oz pur e alcohol) Sex and Gender Information Value Date Recorded Sex Assigned at Not on file Legal Sex Male 11:56 PM CDT Gender Identity Not on file Sexual Orientation Not on file Occupation Industry Job Start Date Job End Date retired-from [employer] Not on file Not on file Not on file documented as of this encounter Miscellaneous Notes * Telephone Encounter - Letty Manzano RN - 08/25/2022 1:30 PM DOOR SLINGER Called patient, reviewed message below. Patient prefers to wait on having colonoscopy at this time.Advised patient to call back if he changed his mind. Patient is aware and verbalizes understanding. SLINGER * Telephone Encounter - Jessica Ortiz MD - 08/25/2022 10:39 AM CST Patient had a colonoscopy few years ago and it only showed couple of very small benign polyps. In view of the findings and his advanced age, it is very reasonable for the patient to opt not to have any further colonoscopy. SLINGER * Telephone Encounter - Kelly Bae CMA - 08/25/2022 9:47 AM DOOR SLINGER Called patient to schedule colonoscopy, patient states he will be 82 in a little over a month, and asking if he needs to have this done, he thought he was through having them. Patient states he is not having any trouble at all? Please advise SLINGER documented in this encounter Plan of Treatment Not on file documented as of this encounter Visit Diagnoses Not on filedocumented in this encounter Care Teams Vending Mechanic Relationship Specialty Start Date End Date Myron Diop MD [address] [place] [address] PCP - General Family Medicine 03/11/17 Mayra Casper MD [address] [place] [address] Consulting Physician Gastroenterology 07/30/17 documented as of this encounter
--- OUTSIDE RECORDS SUMMARY | 2024-07-24 00:02 | XMS_ITS | Encounter Summary ---
Author Organization [facility] Address [address] [place] [address] Phone Care Team Providers Care Payroll Representative Name Role Phone Christopher Diop MD Primary Care Provider [phone] Mayra Casper MD Unavailable [phone] Reason for Referral * Consult, Test & Initiate Treatment (Routine) - Canceled Specialty Diagnoses / Procedures Referred By Contricarda t Referred To Contact Gastroenterology Diagnoses History of colon polyps Jessica Ortiz MD [address] [place] [address] Phone: tel: fax: [facility] Gastroenterology [facility] [address] [place] [address] Phone: tel: fax: Referral ID Status Reason Start Date Expiration Date V isits Requested Visits Authorized [id number] Canceled 04/16/2022 1 1 Scheduling Instructions Neal is being referred for colonoscopy Please contact patient for scheduling questions or concerns. Encounter Details Date Type Department Care Team (Late st Contact Info) Description 04/16/2022 Telephone [facility] Gastroenterology [facility] [address] [place] [address] Jessica Ortiz MD [address] [place] [address] Social History Tobacco Use Types Packs/Day Years [...] Job Start Date Job End Date retired-from [employer] Not on file Not on file Not on file documented as of this encounter Miscellaneous Notes * Telephone Encounter - Jessica Ortiz MD - 04/16/2022 12:12 PM CDT I need to have the colonoscopy report my desk so I can reviewed please * Telephone Encounter - Roxane Santana - 04/16/2022 10:12 AM CDT Pt received recall for colonoscopy. Order pended, please add diagnosis and sign if you approve. Last colon report is scanned in under media with the date listed 03-30-2017. documented in this encounter Plan of Treatment Scheduled Referrals Name Type Priority Associated Diagnoses Order Schedule COLONOSCOPY REFERRAL Outpatient Referral Routine History of colon polyps Expected: 04/16/2022, Expires: 04/16/2023 documented as of this encounter Visit Diagnoses Diagnosis History of colon polyps- Primary Personal history of colonic polyps documented in this encounter Care Teams Payroll Representative Relationship Specialty Start Date End Date Christopher Diop MD [address] [place] [address] PCP - General Family Medicine 03/11/17 Mayra Casper MD [address] [place] [address] Consulting Physician Gastroenterology 07/30/17 documented as of this encounter
--- OUTSIDE RECORDS SUMMARY | 2024-07-24 00:02 | XMS_ITS | Clinical Summary ---
Author Organization [facility] Address [address], [address] [address] Phone Care Team Providers Care Electrician Helper Powerhouse Name Role Phone Christopher Diop MD Primary Care Provider [phone] Mayra Casper MD Unavailable [phone] Allergies No known active allergies Medications tamsulosin (FLOMAX) 0.4 MG CapsuleIndicati ons:takes 2 at hs Take 0.4 mg by mouth daily. Active Insulin Glargine (LANTUS SC) 40 Units by Subcutaneous route. Active Cholecalciferol (VITAMIN D3) 1000 UNIT Tablet Take by mouth. Activ e furosemide (LASIX) 20 MG Tablet Take 20 mg by mouth daily. Active pregabalin (LYRICA) 75 MG Capsule Take 75 mg by mouth 3 times daily. Active metoprolol tartrate (LOPRESSOR) 25 MG Tablet Take 12.5 mg by mouth 2 times daily. Active amiodarone (CORDARONE) 200 MG Tablet Take 200 mg by mouth daily. Active finasteride (PROSCAR) 5 MG Tablet Take 5 mg by mouth daily. Active doxycycline hyclate (VIBRAMYCIN) 100 MG Capsule Take 100 mg by mouth 2 times daily. Active baclofen (LIORESAL) 10 MG Tablet Take 10 mg by mouth 3 times daily. Active atorvastatin (LIPITOR) 20 MG Tablet Take 20 mg by mouth daily. Active Docusate Calcium (STOOL SOFTENER PO) Take by mouth. Ac tive INSULIN LISPRO PROT & LISPRO SCIndications:8 -10 units tid by Subcutaneous route. Active Psyllium (METAMUCIL FIBER PO) Take 8 Tabs by mouth daily. Active Probiotic Product ([employer] HE[employer] PO) Take by mouth. Acti ve warfarin (COUMADIN) 5 MG Tablet Take 5 mg by mouth daily. Active omeprazole (PriLOSEC) 40 MG CAPSULE DELAYED RELEASE Take 1 Cap by mouth daily. 90 Cap 0 Active Immunizations Immunization Administration Dates Next Due Covid-19, Mrna, Lnp-s, PF, 1 00 mcg/0.5 mL Dose (Moderna) 10/16/2020,09/13/2020 Family History Medical History Relation Name Comments Aneurysm Father brain Asthma Other Relation Name Status Comments Father Mother Other Social History Tobacco Use Types Packs/Day Years [...] Job Start Date Job End Date retired-from [employer] Not on file Not on file Not on file Last Filed Vital Signs Vital Sign Reading Time Taken Comments Blood Pressure 145/72 11/16/2017 11:46 AM CDT Pulse 54 11/16/2017 11:46 AM CDT Temperature 36 ??C (96.8 ??F) 11/16/2017 11:46 AM CDT Respiratory Rate 17 11/16/2017 11:46 AM CDT Oxygen Saturation 97% 11/16/2017 11:46 AM CDT Inhaled Oxygen Concentration - - Weight 158.8 kg (350 lb) 11/03/2017 9:00 AM CDT Height 188 cm (6' 2 ) 11/03/2017 9:00 AM CDT Body Mass Index 44.94 11/03/2017 9:00 AM CDT Plan of Treatment Health Maintenance Due Date Last Done Comments Hepatitis C Virus (HCV) Screening 1940 Respiratory Syncytial Virus (RSV) Immunization (Adult) (1 - 1-dose 75+ series) 2017 Zoster Immunization (2 of 2) 10/17/2019 08/22/2019 Influenza Immunization (#1) 2024 09/0 09/2019, 06/07/2018, 05/11/2017 SARS-COV-2 Immunization ( season) 2024 06/04/2021, 10/16/2020, 09/13/2020 DTaP/Tdap/Td Immunization Discontinued 2012, 01/24/2004 TdaP Immunization Completed 05/10/2013 Pneumococcal Immunization (50+ years) Completed 08/03/2017, 07/31/2016, 05/10/2013 Pneumococcal Immunization Combined Discontinued 08/03/2017, 07/31/2016, 05/10/2013 Hepatitis B Immunization Aged Out No longer eligible based on patient's age to complete this topic Meningococcal Immunization (ACWY) Aged Out No longer eligible based on patient's age to complete this topic Rotavirus Immunization Aged Out No lo nger eligible based on patient's age to complete this topic Care Teams Electrician Helper Powerhouse Relationship Specialty Start Date End Date Christopher Diop MD [address] [place] [id number] PCP - General Family Medicine 03/11/17 Mayra Casper MD [address] [place] [id number] Consulting Physician Gastroenterology 07/30/17
--- OUTSIDE RECORDS SUMMARY | 2024-07-24 00:03 | XMS_ITS | Encounter Summary ---
Author Organization [facility] Address [address] [place] [address] Phone Care Team Providers Care Resident Surgeon Name Role Phone Christopher Diop MD Primary Care Provider [phone] Mayra Casper MD Unavailable [phone] Reason for Visit * Reason Onset Date Comments Medication Refill 03/29/2020 Encounter Details Date Type Department Care Team (Late st Contact Info) Description 03/29/2020 Refill [facility] - [facility] - [place] [address] [place] [address] Rosa Isela Boo, MATT [address] [place] [address] Medication Refill Social History Tobacco Use Types Packs/Day Years [...] Job Start Date Job End Date retired-from [employer] Not on file Not on file Not on file documented as of this encounter Miscellaneous Notes * Telephone Encounter - Kelly Hodge CMA - 03/29/2020 8:52 AM CDT Patient and his were notified, future refills of omeprazole need to go through primary. Verbalized understanding * Telephone Encounter - Rosa Isela Boo PAC - 03/29/2020 8:38 AM CDT He should obtain future refills from his primary care provider. This was renewed for 90 days * Telephone Encounter - Kelly Hodge CMA - 03/29/2020 8:18 AM CDT Pharmacy requesting refill of: Requested Prescriptions Pending Prescriptions Disp Refills ??? omeprazole (PriLOSEC) 40 MG CAPSULE DELAYED RELEASE 90 Cap 3 Last fill: 01/03/2020 Patients last OV with GI: 11/16/[address] tobias Next Office Visit with GI: None scheduled documented in this encounter Plan of Treatment Not on file documented as of this encounter Visit Diagnoses Not on filedocumented in this encounter Care Teams Resident Surgeon Relationship Specialty Start Date End Date Christopher Diop MD [address] [place] [address] PCP - General Family Medicine 03/11/17 Mayra Casper MD [address] [place] [address] Consulting Physician Gastroenterology 07/30/17 documented as of this encounter
--- OUTSIDE RECORDS SUMMARY | 2024-07-24 00:03 | XMS_ITS | Encounter Summary ---
Author Organization [facility] Address [address] [place] [place] [address] Phone Care Team Providers Care Van Owner Operator Name Role Phone Christopher Diop MD Primary Care Provider [phone] Mayra Casper MD Unavailable [phone] Reason for Visit * Reason Comments Medication Refill Encounter Details Date Type Department Care Team (Late st Contact Info) Description 07/11/2020 Refill [facility] - Gastroenterology [facility] [address] [place] [address] Rosa Isela Boo, [facility] [address] [place] [address] Medication Refill Social History Tobacco Use Types [...] Job Start Date Job End Date retired-from [employer] Not on file Not on file Not on file documented as of this encounter Miscellaneous Notes * Telephone Encounter - Kelly Hodge CMA - 07/11/2020 1:17 PM DELIVERY AIDE Patients was notified on 03/29/2020 that refills after that were to go to primary care provider. verbalized understanding VERY AIDE documented in this encounter Plan of Treatment Not on file documented as of this encounter Visit Diagnoses Not on filedocumented in this encounter Care Teams Van Owner Operator Relationship Specialty Start Date End Date Christopher Diop MD [address] [place] [id number] PCP - General Family Medicine 03/11/17 Mayra Casper MD [address] [place] [address] Consulting Physician Gastroenterology 07/30/17 documented as of this encounter
--- OUTSIDE RECORDS SUMMARY | 2024-07-24 00:05 | XMS_ITS | Encounter Summary ---
Author Organization [facility] Address [address] [place] [address] Care Team Providers Care Pet House Sitter Name Role Phone Liset Haynes MD Primary Care Provider [phone] Encounter Details Date Type Department Care Team (Late Contact Info) Description 03/29/2024 External Device Data STL ABSTRACTION Provider, Abstract NO ADDRESS ON FILE Social History Tobacco Use Types Packs/Day Years Used Date Smoking Tobacco: Never Smokeless Tobacco: Never Alcohol Use Standard Drinks/Week Comments No 0 (1 standard drink = 0.6 oz pur e alcohol) Sex and Gender Information Value Date Recorded Sex Assigned at Not on file Gender Identity Not on file Sexual Orientation Not on file documented as of this encounter Plan of Treatment Upcoming Encounters Date Type Department Care Team (Late Contact Info) Description 01/10/2025 11:30 AM CDT Office Visit [facility] Oncology and Hematology - [place] [address] [place] [address] Kendall Wills MD [address] [place] [phone] documented as of this encounter Visit Diagnoses Not on filedocumented in this encounter Care Teams Pet House Sitter Relationship Specialty Start Date End Date Liset Haynes MD [address] [phone] PCP - General Family Practice 01/06/23 documented as of this encounter
--- OUTSIDE RECORDS SUMMARY | 2024-07-24 00:05 | XMS_ITS | Encounter Summary ---
Author Organization [facility] Address [address] [place] [address] Care Team Providers Care Mold Making Supervisor Name Role Phone Liset Haynes MD Primary Care Provider [phone] Encounter Details Date Type Department Care Team (Late Contact Info) Description 05/03/2024 External Device Data STL ABSTRACTION Provider, Abstract [...] Description 01/10/2025 11:30 AM CDT Office Visit [facility] Oncology and Hematology - [place] [address] [place] [phone] Kendall Wills MD [address] [place] [phone] documented as of this encounter Visit Diagnoses Not on filedocumented in this encounter Care Teams Mold Making Supervisor Relationship Specialty Start Date End Date Liset Haynes MD [address] [phone] PCP - General Family Practice 01/06/23 documented as of this encounter
--- OUTSIDE RECORDS SUMMARY | 2024-07-24 00:05 | XMS_ITS | Encounter Summary ---
Author Organization [facility] Address [address] [place] [address] Care Team Providers Care Timber Incisor Operator Name Role Phone Liset Haynes MD Primary Care Provider [phone] Encounter Details Date Type Department Care Team (Late Contact Info) Description 03/30/2024 External Device Data STL ABSTRACTION Provider, Abstract [...] Description 01/10/2025 11:30 AM CDT Office Visit [facility] Oncology and Hematology - [place] [address] [place] [phone] Kendall Wills MD [address] [place] [phone] documented as of this encounter Visit Diagnoses Not on filedocumented in this encounter Care Teams Timber Incisor Operator Relationship Specialty Start Date End Date Liset Haynes MD [address] [phone] PCP - General Family Practice 01/06/23 documented as of this encounter
--- OUTSIDE RECORDS SUMMARY | 2024-07-24 00:05 | XMS_ITS | Encounter Summary ---
Author Organization [facility] Address [address] [place] [address] Care Team Providers Care Rat Poisoner Name Role Phone Liset Haynes MD Primary Care Provider [phone] Encounter Details Date Type Department Care Team (Late Contact Info) Description 02/23/2024 External Device Data STL ABSTRACTION Provider, Abstract [...] Description 01/10/2025 11:30 AM CDT Office Visit [facility] Oncology and Hematology - [place] [address] [place] [phone] Kendall Wills MD [address] [place] [phone] documented as of this encounter Visit Diagnoses Not on filedocumented in this encounter Care Teams Rat Poisoner Relationship Specialty Start Date End Date Liset Haynes MD [address] [phone] PCP - General Family Practice 01/06/23 documented as of this encounter
--- OUTSIDE RECORDS SUMMARY | 2024-07-24 00:05 | XMS_ITS | Encounter Summary ---
Author Organization [facility] Address [address] [place] [address] Care Team Providers Care Land Lease Information Clerk Name Role Phone Liset Haynes MD Primary Care Provider [phone] Reason for Visit * Reason Comments Follow Up Encounter Details Date Type Department Care Team ([facility] st Contact Info) Description 07/12/2024 1:00 PM COMMUNICATIONS PROGRAMMER Office Visit [facility] Oncology and Hematology - [place] [address] [place] [address] [address] [place] [address] Kendall Wills MD [address] [facility] [address] [place] [address] Polycythemia, secondary (Primary Dx) Social History Tobacco Use Types Packs/Day Years Used Date Smoking Tobacco: Never Smokeless Tobacco: Never Tobacco Cessation:Counseling Given: Not Answered Alcohol Use Standard Drinks/Week Comments No 0 (1 standard drink = 0.6 oz pur e alcohol) Sex and Gender Information Value Date Recorded Sex Assigned at Not on file Gender Identity Not on file Sexual Orientation Not on file documented as of this encounter Last Filed Vital Signs Vital Sign Reading Time Taken Comments Blood Pressure 116/61 07/12/2024 1:03 PM COMMUNICATIONS PROGRAMMER Pulse 61 07/12/2024 1:03 PM COMMUNICATIONS PROGRAMMER Temperature 36.5 ??C (97.7 ??F) 07/12/2024 1 :03 PM COMMUNICATIONS PROGRAMMER Respiratory Rate 17 07/12/2024 1:03 PM COMMUNICATIONS PROGRAMMER Oxygen Saturation 93% 07/12/2024 1:0 3 PM COMMUNICATIONS PROGRAMMER Inhaled Oxygen Concentration - - Weight 155.6 kg (343 lb) 07/12/2024 1:0 3 PM COMMUNICATIONS PROGRAMMER Patient is unable to step on scale,patient gave me a verbal current weight from recent. Height - - Body Mass Index 44.04 06/08/2018 8:37 AM COMMUNICATIONS PROGRAMMER documented in this encounter Progress Notes * Kendall Wills MD - 07/12/2024 1:37 PM CST HEMATOLOGY / ONCOLOGY PROGRESS NOTE Patient Identification: Name: Neal Amaro Age: 83 y.o. 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 TREATMENT HISTORY SUBJECTIVE Patient came to the office for follow-up visit. He denies any chest pain and shortness of breath. He has lost 3 pound weight. No bleeding and bruising. No other new complaints. Review of system Constitutional: Patient did not mention fevers, sweats, denies tiredness and fatigue, 3 pound weight loss HEENT: Patient did not mention sinus congestion, hearing or vision problems Respiratory: Patient did not mention cough, dyspnea, wheeze Cardiovascular: Patient did not mention chest pain, exertional chest pressure/discomfort, nausea, syncope, shortness of breath GI: Patient did not mention constipation, diarrhea, dsyphagia, reflux symptoms, vomiting, melena : Patient did not mention dysuria, frequency, incontinence, urgency Integumentary system: no lymphadenopathy, sweats, flushing Musculoskeletal: Patient not mention: myalgia, arthralgia Neurological: Patient did not mention blurry or disturbed vision, numbness/weakness, dizziness Skin: No lumps, bumps or rashes. 12 point review of system was reviewed Objective: Vital signs in last 24 hours: As per nursing note Exam: HEENT: Atraumatic, external ears normal, nose normal, oropharynx moist, no pharyngeal exudates. no sinus tenderness Neck- normal range of motion, no tenderness, supple Respiratory: No respiratory distress, normal breath sounds, no rales, no wheezing Cardiovascular: Normal rate, normal rhythm, no murmurs, no gallops, no rubs GI: Soft, nondistended, normal bowel sounds, nontender, no splenomegaly, no hepatomegaly, no mass, no rebound, no guarding : No costovertebral angle tenderness Musculoskeletal: No edema, no tenderness, no deformities. Back- no tenderness Integument: Well hydrated, no rash, Digits and nails inspection normal Lymphatic: No lymphadenopathy noted Neurologic: Alert & oriented x 3, CN 2-12 normal, normal motor function, normal sensory function, no focal deficits noted Psychiatric: Speech and behavior appropriate Exam as above PATH LABS Labs from January 06 showed hematocrit 52.9 hemoglobin 17.6 total bilirubin 0.8 creatinine 1.3 erythropoietin level 14.3 Labs from April 24 showed WBC 6.1 hemoglobin 16.2 hematocrit 50.2 platelet 283,000 Labs from October 22 showed WBC 6.6 hemoglobin 14.6 hematocrit 45.5 platelet 3 28,000 Labs from January 25 showed WBC 5.7 hemoglobin 14.5 hematocrit 45.7 platelet 282,000 Labs from July 12 showed WBC 7.2 hemoglobin 15.6 hematocrit 48.9 platelet 323,000 creatinine 1.3 Assessment: Plan: Patient Active Problem List Diagnosis Date Noted Elevated red blood cell count 07/21/2023 Morbid obesity with BMI of 40.0-44.9, adult 04/23/2017 Chronic anemia 03/19/2017 Bruising 03/19/2017 Edema 03/19/2017 Obesity (BMI 35.0-39.9 without comorbidity) 03/19/2017 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 Labs noted. Hematocrit has gone up slightly but no need for phlebotomy. I recommended continuation of warfarin 6 mg daily. 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 Patient has no evidence of blood clot. He will continue warfarin. I recommended regular activity. Follow-up in 6 months. 07/12/2024 Kendall Wills MD UNICATIONS PROGRAMMER documented in this encounter Plan of Treatment Upcoming Encounters Date Type Department Care Team (Late st Contact Info) Description 01/10/2025 11:30 AM CDT Office Visit [facility] Oncology and Hematology - [place] [address] [facility] [address] [place] [address] Kendall Wills MD [address] [facility] [address] [place] [address] Scheduled Orders Name Type Priority Associated Diagnoses Orde r Schedule CBC WITHOUT DIFFERENTIAL Lab Stat Polycythemia, secondary Expected: 01/10/2025, Expires: 07/12/2025 documented as of this encounter Visit Diagnoses Diagnosis Polycythemia, secondary- Primary documented in this encounter Care Teams Land Lease Information Clerk Relationship Specialty Start Date End Date Liset Haynes MD [address] [place] [phone] PCP - General Family Practice 01/06/23 documented as of this encounter
--- OUTSIDE RECORDS SUMMARY | 2024-07-24 00:05 | XMS_ITS | Encounter Summary ---
Author Organization [facility] Address [address] [place] [address] Care Team Providers Care Acls Nurse Name Role Phone Liset Haynes MD Primary Care Provider [phone] Encounter Details Date Type Department Care Team (Late Contact Info) Description 04/05/2024 External Device Data STL ABSTRACTION Provider, Abstract [...] [facility] - [place] [address] [place] [phone] Kendall Wills MD [address] [place] [phone] documented as of this encounter Visit Diagnoses Not on filedocumented in this encounter Care Teams Acls Nurse Relationship Specialty Start Date End Date Liset Haynes MD [address] [phone] PCP - General Family Practice 01/06/23 documented as of this encounter
--- OUTSIDE RECORDS SUMMARY | 2024-07-24 00:05 | XMS_ITS | Encounter Summary ---
Author Organization [facility] Address [address] [place] [address] Care Team Providers Care Parking Enforcer Name Role Phone Liset Haynes MD Primary Care Provider [phone] Encounter Details Date Type Department Care Team (Late Contact Info) Description 03/15/2024 External Device Data STL ABSTRACTION Provider, Abstract [...] Description 01/10/2025 11:30 AM CDT Office Visit [facility] Oncology and Hematology - [place] [address] [place] [phone] Kendall Wills MD [address] [place] [phone] documented as of this encounter Visit Diagnoses Not on filedocumented in this encounter Care Teams Parking Enforcer Relationship Specialty Start Date End Date Liset Haynes MD [address] [phone] PCP - General Family Practice 01/06/23 documented as of this encounter
--- OUTSIDE RECORDS SUMMARY | 2024-07-24 00:05 | XMS_ITS | Encounter Summary ---
Author Organization [facility] [employer] [facility] Address [address] [place] [address] Care Team Providers Care Track Grinder Operator Name Role Phone Liset Haynes MD Primary Care Provider [phone] Encounter Details Date Type Department Care Team ([facility] Contact Info) Description 02/29/2024 Orders Only [facility] Oncology and Hematology - [place] [address] [place] [address] Kendall Wills MD [facility] [employer] [address] [place] [phone] Polycythemia, secondary Social History Tobacco Use Types Packs/Day Years [...] Upcoming Encounters Date Type Department Care Team ([facility] Contact Info) Description 01/10/2025 11:30 AM CDT Office Visit [facility] Oncology and Hematology - [place] [address] [place] [address] Kendall Wills MD [address] [employer] [address] [place] [phone] documented as of this encounter Visit Diagnoses Diagnosis Polycythemia, secondary documented in this encounter Care Teams Track Grinder Operator Relationship Specialty Start Date End Date Liset Haynes MD [address] [place] [address] PCP - General Family Practice 01/06/23 documented as of this encounter
--- OUTSIDE RECORDS SUMMARY | 2024-07-24 00:05 | XMS_ITS | Encounter Summary ---
Author Organization [facility] [employer] [facility] Address [address] [place] [address] Care Team Providers Care Community Nutrition Educator Name Role Phone Liset Haynes MD Primary Care Provider [phone] Encounter Details Date Type Department Care Team ([facility] Contact Info) Description 07/14/2024 Orders Only [facility] Oncology and Hematology - [place] [address] [place] [address] Kendall Wills MD [address] [place] [address] [employer] [address] [place] [phone] Social History Tobacco Use Types Packs/Day Years [...] Upcoming Encounters Date Type Department Care Team ([facility] Contact Info) Description 01/10/2025 11:30 AM CDT Office Visit [facility] Oncology and Hematology - [place] [address] [place] [address] Kendall Wills MD [address] [place] [address] [employer] [address] [place] [phone] documented as of this encounter Procedures Procedure Name Priority Date/Time Associated Diagnosis Comments BASIC METABOLIC PANEL Routine 07/12/2024 3:16 PM MACHINED PARTS METAL SPRAYER CBC WITH DIFFERENTIAL Routine 07/12/2024 2:23 PM MACHINED PARTS METAL SPRAYER documented in this encounter Results * BASIC METABOLIC PANEL (07/12/2024 3:16 PM MACHINED PARTS METAL SPRAYER) Blood Kendall Wills MD CHEMISTRY ORDERABLES * CBC WITH DIFFERENTIAL (07/12/2024 2:23 PM MACHINED PARTS METAL SPRAYER) Blood Kendall Wills MD HEMATOLOGY ORDERABLE S documented in this encounter Visit Diagnoses Not on filedocumented in this encounter Care Teams Community Nutrition Educator Relationship Specialty Start Date End Date Liset Haynes MD [address] [place] [address] PCP - General Family Practice 01/06/23 documented as of this encounter
--- OUTSIDE RECORDS SUMMARY | 2024-07-24 00:05 | XMS_ITS | Encounter Summary ---
Author Organization [facility] Address [address] [place] [address] Care Team Providers Care Meat Manager Name Role Phone Liset Haynes MD Primary Care Provider [phone] Encounter Details Date Type Department Care Team [...] Description 01/10/2025 11:30 AM CDT Office Visit [facility] Oncology and Hematology - [place] [address] [place] [phone] Kendall Wills MD [address] [place] [phone] documented as of this encounter Visit Diagnoses Not on filedocumented in this encounter Care Teams Meat Manager Relationship Specialty Start Date End Date Liset Haynes MD [address] [phone] PCP - General Family Practice 01/06/23 documented as of this encounter
--- OUTSIDE RECORDS SUMMARY | 2024-07-24 00:05 | XMS_ITS | Clinical Summary ---
Author Organization [facility] Address [address] [place] [address] Care Team Providers Care Bulk Mail Technician Name Role Phone Liset Haynes MD Primary Care Provider [phone] Allergies No known active allergies Medications Medication Sig Dispensed Refills Start Date End Date Status amiodarone (CORDARONE) 200 mg tablet Take 200 mg by mouth daily. Active atorvastatin (LIPITOR) 20 mg tablet Take 20 mg by mouth late in the day. Active baclofen (LIORESAL) 10 mg tablet Take 10 mg by mouth 3 times daily as needed for Pain. Active doxycycline hyclate (VIBRAMYCIN) 100 mg capsule Take 100 mg by mouth 2 times daily. Active finasteride (PROSCAR) 5 mg tablet Take 5 mg by mouth daily. Active insulin glargine (LANTUS) 100 unit/mL vial Inject 40 Units by subcutaneous injection. Active insulin lispro (HumaLOG) 100 unit/mL vial Inject 8 Units by subcutaneous injection 3 times daily with meals. Active metoprolol succinate (TOPROL XL) 25 mg Extended Release 24 hour tablet Take 25 mg by mouth daily. Active pregabalin (LYRICA) 75 mg Capsule Take 75 mg by mouth. A ctive tamsulosin (FLOMAX) 0.4 mg capsule Take 0.4 mg by mouth daily. Active Calcium-Vitamin D3-Vitamin K 500-500-40 mg-unit-mcg Tablet, Chewable Take by mouth. Active furosemide (LASIX) 20 mg tablet Take 20 mg by mouth daily. Active omeprazole (PriLOSEC) 40 mg Capsule, Delayed Release(E.C.) Take 40 mg by mouth daily. Active flecainide (TAMBOCOR) 50 mg Tablet 05/31/2018 Active warfarin (COUMADIN) 5 mg tablet 06/05/2018 Active fluticasone-umeclid inium-vilanterol (Trelegy Ellipta) 100-62.5-25 mcg Disk with Device Take 1 Puff by inhalation daily. Active dapagliflozin (Farxiga) 5 mg Tablet Take by mouth daily. Acti ve levothyroxine 50 mcg tablet Take 50 mcg by mouth daily in the morning. Active Active Problems Problem Noted Date Diagnosed Date Elevated red blood cell count 07/21/2023 Morbid obesity with BMI of 40.0-44.9, adult 04/04 Chronic anemia 03/19/2017 Bruising 03/19/2017 Edema 03/19/2017 Obesity (BMI 35.0-39.9 without comorbidity) 03/03 Encounters Date Type Department Care Team Description 07/14/2024 Orders Only [facility] Oncology and Hematology [facility] [address] [place] [address] Kendall Wills MD 07/12/2024 1:00 PM COMPUTER SYSTEMS ANALYST Office Visit [facility] Oncology and Hematology [facility] [address] [place] [address] Kendall Wills MD Polycythemia, secondary (Primary Dx) 05/03/2024 External Device Data STL ABSTRACTION Provider, Abstract from Last 3 Months Family History Medical History Relation Name Comments Heart Disease Brother Cancer Sister 1 Relation Name Status Comments Brother Father Mother Sister 1 Alive Sister 2 Alive Son 1 Alive Son 2 Alive Social History Tobacco Use Types Packs/Day Years Used Date Smoking Tobacco: Never Smokeless Tobacco: Never Tobacco Cessation:Counseling Given: Not Answered Alcohol Use Standard Drinks/Week Comments No 0 (1 standard drink = 0.6 oz pur e alcohol) Sex and Gender Information Value Date Recorded Sex Assigned at Not on file Gender Identity Not on file Sexual Orientation Not on file Last Filed Vital Signs Vital Sign Reading Time Taken Comments Blood Pressure 116/61 07/12/2024 1:03 PM COMPUTER SYSTEMS ANALYST Pulse 61 07/12/2024 1:03 PM COMPUTER SYSTEMS ANALYST Temperature 36.5 ??C (97.7 ??F) 07/12/2024 1 :03 PM COMPUTER SYSTEMS ANALYST Respiratory Rate 17 07/12/2024 1:03 PM COMPUTER SYSTEMS ANALYST Oxygen Saturation 93% 07/12/2024 1:0 3 PM COMPUTER SYSTEMS ANALYST Inhaled Oxygen Concentration - - Weight 155.6 kg (343 lb) 07/12/2024 1:0 3 PM COMPUTER SYSTEMS ANALYST Patient is unable to step on scale,patient gave me a verbal current weight from recent. Height 188 cm (6' 2 ) 06/08/2018 8:37 AM COMPUTER SYSTEMS ANALYST Body Mass Index 44.04 06/08/2018 8:37 AM COMPUTER SYSTEMS ANALYST Plan of Treatment Upcoming Encounters Date Type Department Care Team (Late st Contact Info) Description 01/10/2025 11:30 AM CDT Office Visit [facility] Oncology and Hematology - [place] [address] [facility] [address] [place] [address] Kendall Wills MD [address] [facility] [address] [place] [address] Health Maintenance Due Date Last Done Comments DIABETES ANNUAL FOOT EXAM 1960 DIABETES ANNUAL RETINAL EXAM 1960 DIABETES MICROALBUMIN ANNUAL SCREEN 1960 LDL CHOLESTEROL ANNUAL 1960 RSV VACCINE (60+ or ) (1 - 1-dose 75+ series) 2017 DIABETES HBA1C Q 6 MONTHS 09/12/2019 03/12/2019, 04/2019 INFLUENZA VACCINE (#1) 2024 9, 06/07/2018, 05/11/2017 COVID-19 Vaccine ( season) 2024, 09/13/2020 DTAP/TDAP/TD VACCINES (3 - T d or Tdap) 07/27/2033 07/27/2023, 05/10/2013, 01/24/2004 PNEUMOCOCCAL VACCINE 65+ YEARS Completed 0 08/03/2017, 07/31/2016, 05/10/2013 ZOSTER VACCINE Completed 08/22/2019, 06/09/2019 Procedures Procedure Name Priority Date/Time Associated Diagnosis Comments BASIC METABOLIC PANEL Routine 07/12/2024 3:16 PM COMPUTER SYSTEMS ANALYST CBC WITH DIFFERENTIAL Routine 07/12/2024 2:23 PM COMPUTER SYSTEMS ANALYST from Last 3 Months Results * BASIC METABOLIC PANEL (07/12/2024 3:16 PM COMPUTER SYSTEMS ANALYST) Blood Kendall Wills MD CHEMISTRY ORDERABLES * CBC WITH DIFFERENTIAL (07/12/2024 2:23 PM COMPUTER SYSTEMS ANALYST) Blood Kendall Wills MD HEMATOLOGY ORDERABLE S from Last 3 Months Care Teams Bulk Mail Technician Relationship Specialty Start Date End Date Liset Haynes MD [address] [place] [phone] PCP - General Family Practice 01/06/23
--- OUTSIDE RECORDS SUMMARY | 2024-07-24 00:06 | XMS_ITS | Encounter Summary ---
Author Organization [facility] [employer] [facility] Address [address] [place] [address] Care Team Providers Care Enlisted Aircrew/Aerial Observer/Gunner Name Role Phone Liset Haynes MD Primary Care Provider [phone] Encounter Details Date Type Department Care Team ([facility] Contact Info) Description 01/18/2024 Orders Only [facility] Oncology and Hematology - [place]iano [address] [place] [address] Kendall Wills MD [address] [place], [place] [address] [address] [place] [phone] Polycythemia, secondary Social History Tobacco Use [...] Upcoming Encounters Date Type Department Care Team ([facility] Contact Info) Description 01/10/2025 11:30 AM CDT Office Visit [facility] Oncology and Hematology - [place] [address] [place] [address] Kendall Wills MD [address] [employer] [address] [place] [phone] documented as of this encounter Visit Diagnoses Diagnosis Polycythemia, secondary documented in this encounter Care Teams Enlisted Aircrew/Aerial Observer/Gunner Relationship Specialty Start Date End Date Liset Haynes MD [address] [place] [address] PCP - General Family Practice 01/06/23 documented as of this encounter
--- OUTSIDE RECORDS SUMMARY | 2024-07-24 00:06 | XMS_ITS | Encounter Summary ---
Author Organization [facility] [employer] [facility] Address [address] [place] [address] Care Team Providers Care Resident Advisor Name Role Phone Liset Haynes MD Primary Care Provider Encounter Details Date Type Department Care Team ([facility] Contact Info) Description 01/28/2024 Orders Only [facility] Oncology and Hematology - Aureliano Marisela [address] [place] [address] Kendall Wills MD [address] [place] [address] [employer] [address] [place] [phone] Social History Tobacco Use Types Packs/Day [...] Upcoming Encounters Date Type Department Care Team ([facility] Contact Info) Description 01/10/2025 11:30 AM CDT Office Visit [facility] Oncology and Hematology - Aureliano Pierre [address] [place] [address] Kendall Wills MD [address] [place] [address] [employer] [address] [place] [phone] documented as of this encounter Procedures Procedure Name Priority Date/Time Associated Diagnosis Comments CBC WITH AUTODIFFERENTIAL Routine 2023 1:28 PM CDT documented in this encounter Results * CBC WITH AUTODIFFERENTIAL (01/26/2024 1:28 PM CDT) Blood Kendall Wills MD HEMATOLOGY ORDERABLE S documented in this encounter Visit Diagnoses Not on filedocumented in this encounter Care Teams Resident Advisor Relationship Specialty Start Date End Date Liset Haynes MD [address] [place] [address] PCP - General Family Practice 01/06/23 documented as of this encounter
--- OUTSIDE RECORDS SUMMARY | 2024-07-24 00:06 | XMS_ITS | Encounter Summary ---
Author Organization [facility] [employer] [facility] Address [address] [place] [address] Care Team Providers Care Tour Consultant Name Role Phone Liset Haynes MD Primary Care Provider [phone] Encounter Details Date Type Department Care Team ([facility] Contact Info) Description 02/15/2024 Orders Only [facility] Oncology and Hematology - Aureliano Marisela [address] [place] [address] Kendall Wills MD [facility] [address] [place] [phone] Polycythemia, secondary Social History Tobacco Use [...] Upcoming Encounters Date Type Department Care Team ([facility] Contact Info) Description 01/10/2025 11:30 AM CDT Office Visit [facility] Oncology and Hematology - Aureliano [address] [place] [address] Kendall Wills MD [address] [facility] [address] [place] [address] documented as of this encounter Visit Diagnoses Diagnosis Polycythemia, secondary documented in this encounter Care Teams Tour Consultant Relationship Specialty Start Date End Date Liset Haynes MD [address] [place] [address] PCP - General Family Practice 01/06/23 documented as of this encounter
--- OUTSIDE RECORDS SUMMARY | 2024-07-24 00:06 | XMS_ITS | Encounter Summary ---
Author Organization [facility] Address [address] [place] [address] Care Team Providers Care Dispute Resolution Analyst Name Role Phone Liset Haynes MD Primary Care Provider [phone] Encounter Details Date Type Department Care Team (Late Contact Info) Description 01/19/2024 External Device Data STL ABSTRACTION Provider, Abstract [...] Description 01/10/2025 11:30 AM CDT Office Visit [facility] Oncology and Hematology - Aureliano [address] [place] [address] Kendall Wills MD [address] [place] [address] documented as of this encounter Visit Diagnoses Not on filedocumented in this encounter Care Teams Dispute Resolution Analyst Relationship Specialty Start Date End Date Liset Haynes MD [address] [place] [phone] PCP - General Family Practice 01/06/23 documented as of this encounter
--- OUTSIDE RECORDS SUMMARY | 2024-07-24 00:06 | XMS_ITS | Encounter Summary ---
Author Organization [facility] Address [address] [place] [address] Care Team Providers Care Community Case Manager Name Role Phone Liset Haynes MD Primary Care Provider Reason for Visit * Reason Comments Follow Up Encounter Details Date Type Department Care Team ([facility] st Contact Info) Description 01/26/2024 2:15 PM CDT Office Visit [facility] Oncology and Hematology - Aureliano [address] [place] [address] [address] [place] [address] Kendall Wills MD [address] [facility] [address] [place] [address] Polycythemia, secondary (Primary Dx) Social [...] Sign Reading Time Taken Comments Blood Pressure 122/62 01/26/2024 1:50 PM CDT Pulse 67 01/26/2024 1:50 PM CDT Temperature 36.8 ??C (98.2 ??F) 01/26/2024 1:50 PM CD T Respiratory Rate 20 01/26/2024 1:50 PM CDT Oxygen Saturation 92% 01/26/2024 1:50 PM CDT Inhaled Oxygen Concentration - - Weight 157.9 kg (348 lb) 01/26/2024 1:50 PM CDT Height - - Body Mass Index 44.68 06/08/2018 8:37 AM [employer] ARTISTIC DIRECTOR documented in this encounter Progress Notes * Kendall Wills MD - 01/26/2024 2:51 PM CDT HEMATOLOGY / ONCOLOGY PROGRESS NOTE Patient Identification: Name: Neal Amaro Age: 83 y.o. 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 TREATMENT HISTORY SUBJECTIVE Patient came to the office for follow-up visit. He denies any chest pain and shortness of breath. Weight and appetite stable. No bleeding and bruising. No other new complaints. 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 Labs noted. Hematocrit is stable at 45.7. No need for phlebotomy. He will continue warfarin 5 mg daily. He will check INR at home on a weekly basis. 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 There is no evidence of blood clot at this time. Continue warfarin and follow-up in 6 months. I have recommended regular activity and weight loss. TOBACCO COUNSELING He is not a tobacco/nicotine user. 01/26/2024 Kendall Wills MD documented in this encounter Plan of Treatment Upcoming Encounters Date Type Department Care Team (Late st Contact Info) Description 01/10/2025 11:30 AM CDT Office Visit [facility] Oncology and Hematology - [place]ureliano [address] [facility] [address] [place] [address] Kendall Wills MD [address] [facility] [address] [place] [address] Scheduled Orders Name Type Priority Associated Diagnoses Orde r Schedule CBC WITH DIFFERENTIAL Lab Stat Polycythemia, secondary Expected: 07/27/2024, Expires: 01/25/2025 BASIC METABOLIC PANEL Lab Stat Polycythemia, secondary Expected: 07/27/2024, Expires: 01/25/2025 documented as of this encounter Visit Diagnoses Diagnosis Polycythemia, secondary- Primary documented in this encounter Care Teams Community Case Manager Relationship Specialty Start Date End Date Liset Haynes MD [address] [place] [phone] PCP - General Family Practice 01/06/23 documented as of this encounter
--- OUTSIDE RECORDS SUMMARY | 2024-07-24 00:06 | XMS_ITS | Encounter Summary ---
Author Organization [facility] [employer] [facility] Address [address] [place] [address] Care Team Providers Care Truck Hopper Name Role Phone Liset Haynes MD Primary Care Provider [phone] Encounter Details Date Type Department Care Team ([facility] Contact Info) Description 02/01/2024 Orders Only [facility] Oncology and Hematology - Aureliano Marisela [address] [place] [address] Kendall Wills MD [facility] [employer] [address] [place] [phone] Polycythemia, secondary Social History Tobacco Use [...] Upcoming Encounters Date Type Department Care Team ([facility] Contact Info) Description 01/10/2025 11:30 AM CDT Office Visit [facility] Oncology and Hematology - Aureliano [address] [place] [address] Kendall Wills MD [address] [employer] [address] [place] [address] documented as of this encounter Visit Diagnoses Diagnosis Polycythemia, secondary documented in this encounter Care Teams Truck Hopper Relationship Specialty Start Date End Date Liset Haynes MD [address] [place] [address] PCP - General Family Practice 01/06/23 documented as of this encounter
--- OUTSIDE RECORDS SUMMARY | 2024-07-24 00:07 | XMS_ITS | Encounter Summary ---
Author Organization [facility] [employer] [facility] Address [address] [place] [address] Care Team Providers Care Data Analytics Developer Name Role Phone Liset Haynes MD Primary Care Provider [phone] Encounter Details Date Type Department Care Team ([facility] Contact Info) Description 09/14/2023 Orders Only [facility] Oncology and Hematology - Aureliano Marisela [address] [place] [address] Kendall Wills MD [facility] [employer] [address] [place] [phone] Polycythemia, secondary Social History Tobacco Use [...] Department Care Team ([facility] Contact Info) Description 01/10/2025 11:30 AM CDT Office Visit [facility] Oncology and Hematology - Aureliano [address] [place] [address] Kendall Wills MD [address] [employer] [address] [place] [address] documented as of this encounter Visit Diagnoses Diagnosis Polycythemia, secondary documented in this encounter Care Teams Data Analytics Developer Relationship Specialty Start Date End Date Liset Haynes MD [address] [place] [address] PCP - General Family Practice 01/06/23 documented as of this encounter
--- OUTSIDE RECORDS SUMMARY | 2024-07-24 00:07 | XMS_ITS | Encounter Summary ---
Author Organization [facility] Address [address] [place] [address] Care Team Providers Care Short Range Air Defense Artillery Name Role Phone Liset Haynes MD Primary Care Provider [phone] Encounter Details Date Type Department Care Team (Late Contact Info) Description 08/26/2023 External Device Data STL ABSTRACTION Provider, Abstract [...] Description 01/10/2025 11:30 AM CDT Office Visit [facility] Oncology and Hematology - Aureliano [address] [place] [address] Kendall Wills MD [address] [place] [address] documented as of this encounter Visit Diagnoses Not on filedocumented in this encounter Care Teams Short Range Air Defense Artillery Relationship Specialty Start Date End Date Liset Haynes MD [address] [place] [phone] PCP - General Family Practice 01/06/23 documented as of this encounter
--- OUTSIDE RECORDS SUMMARY | 2024-07-24 00:07 | XMS_ITS | Encounter Summary ---
Author Organization [facility] [employer] [facility] Address [address] [place] [address] Care Team Providers Care Hand Spring Repairer Name Role Phone Liset Haynes MD Primary Care Provider [phone] Encounter Details Date Type Department Care Team ([facility] Contact Info) Description 07/06/2023 Orders Only [facility] Oncology and Hematology - Aureliano Marisela [address] [place] [address] Kendall Wills MD [address] [place], [place] [address] [address] [place] [phone] Polycythemia, secondary Social History Tobacco Use [...] Upcoming Encounters Date Type Department Care Team ([facility] Contact Info) Description 01/10/2025 11:30 AM CDT Office Visit [facility] Oncology and Hematology - Arueliano [address] [place] [address] Kendall Wills MD [facility] [email or web address] [address] [place] [address] documented as of this encounter Visit Diagnoses Diagnosis Polycythemia, secondary documented in this encounter Care Teams Hand Spring Repairer Relationship Specialty Start Date End Date Liset Haynes MD [address] [place] [address] PCP - General Family Practice 01/06/23 documented as of this encounter
--- OUTSIDE RECORDS SUMMARY | 2024-07-24 00:07 | XMS_ITS | Encounter Summary ---
Author Organization [facility] Address [address] [place] [address] Care Team Providers Care Cooler Man Name Role Phone Liset Haynes MD Primary Care Provider [phone] Encounter Details Date Type Department Care Team (Late Contact Info) Description 10/08/2023 External Device Data STL ABSTRACTION Provider, Abstract [...] 01/10/2025 11:30 AM CDT Office Visit [facility] Oncology and Hematology - Aureliano [address] [place] [address] Kendall Wills MD [address] [place] [address] documented as of this encounter Visit Diagnoses Not on filedocumented in this encounter Care Teams Cooler Man Relationship Specialty Start Date End Date Liset Haynes MD [address] [place] [phone] PCP - General Family Practice 01/06/23 documented as of this encounter
--- OUTSIDE RECORDS SUMMARY | 2024-07-24 00:07 | XMS_ITS | Encounter Summary ---
Author Organization [facility] Address [address] [place] [address] Care Team Providers Care Customer Relations Representative Name Role Phone Liset Haynes MD Primary Care Provider [phone] Encounter Details Date Type Department Care Team (Late Contact Info) Description 09/18/2023 External Device Data STL ABSTRACTION Provider, Abstract [...] AM CDT Office Visit [facility] Oncology and Hematology - Aureliano [address] [place] [address] Kendall Wills MD [address] [place] [phone] documented as of this encounter Visit Diagnoses Not on filedocumented in this encounter Care Teams Customer Relations Representative Relationship Specialty Start Date End Date Liset Haynes MD [address] [place] [phone] PCP - General Family Practice 01/06/23 documented as of this encounter
--- OUTSIDE RECORDS SUMMARY | 2024-07-24 00:07 | XMS_ITS | Encounter Summary ---
Author Organization [facility] [employer] [facility] Address [address] [place] [address] Care Team Providers Care Seo Marketing Specialist Name Role Phone Liset Haynes MD Primary Care Provider [phone] Encounter Details Date Type Department Care Team ([facility] Contact Info) Description 08/31/2023 Orders Only [facility] Oncology and Hematology - Aureliano Marisela [address] [place] [address] Kendall Wills MD [facility] [email or web address] [address] [place] [phone] Polycythemia, secondary Social History Tobacco Use [...] Upcoming Encounters Date Type Department Care Team ([facility] Contact Info) Description 01/10/2025 11:30 AM CDT Office Visit [facility] Oncology and Hematology - Aureliano [address] [place] [address] Kendall Wills MD [address] [email or web address] [address] [place] [address] documented as of this encounter Visit Diagnoses Diagnosis Polycythemia, secondary documented in this encounter Care Teams Seo Marketing Specialist Relationship Specialty Start Date End Date Liset Haynes MD [address] [place] [address] PCP - General Family Practice 01/06/23 documented as of this encounter
--- OUTSIDE RECORDS SUMMARY | 2024-07-24 00:07 | XMS_ITS | Encounter Summary ---
Author Organization [facility] Address [address] [place] [address] Care Team Providers Care Wall Steamer Name Role Phone Liset Haynes MD Primary Care Provider [phone] Encounter Details Date Type Department Care Team (Late Contact Info) Description 08/06/2023 External Device Data STL ABSTRACTION Provider, Abstract [...] Description 01/10/2025 11:30 AM CDT Office Visit [facility] Oncology and Hematology - Aureliano [address] [place] [address] Kendall Wills MD [address] [place] [phone] documented as of this encounter Visit Diagnoses Not on filedocumented in this encounter Care Teams Wall Steamer Relationship Specialty Start Date End Date Liset Haynes MD [address] [place] [phone] PCP - General Family Practice 01/06/23 documented as of this encounter
--- OUTSIDE RECORDS SUMMARY | 2024-07-24 00:07 | XMS_ITS | Encounter Summary ---
Author Organization [facility] [employer] [facility] Address [address] [place] [address] Care Team Providers Care Liquid Chlorine Operator Name Role Phone Liset Haynes MD Primary Care Provider [phone] Encounter Details Date Type Department Care Team ([facility] Contact Info) Description 07/23/2023 Orders Only [facility] Oncology and Hematology - Aureliano Marisela [address] [place] [address] Kendall Wills MD [address] [place] [address] [employer] [address] [place] [phone] Social History Tobacco Use Types Packs/Day [...] Upcoming Encounters Date Type Department Care Team ([facility] Contact Info) Description 01/10/2025 11:30 AM CDT Office Visit [facility] Oncology and Hematology - Aureliano [address] [place] [address] Kendall Wills MD [address] [place] [address] [employer] [address] [place] [phone] documented as of this encounter Procedures Procedure Name Priority Date/Time Associated Diagnosis Comments CBC WITH DIFFERENTIAL Routine 07/21/2023 9:39 AM NEW CAR SALES MANAGER documented in this encounter Results * CBC WITH DIFFERENTIAL (07/21/2023 9:39 AM NEW CAR SALES MANAGER) Blood Kendall Wills MD HEMATOLOGY ORDERABLE S documented in this encounter Visit Diagnoses Not on filedocumented in this encounter Care Teams Liquid Chlorine Operator Relationship Specialty Start Date End Date Liset Haynes MD [address] [place] [phone] PCP - General Family Practice 01/06/23 documented as of this encounter
--- OUTSIDE RECORDS SUMMARY | 2024-07-24 00:07 | XMS_ITS | Encounter Summary ---
Author Organization [facility] [employer] [facility] Address [address] [place] [address] Care Team Providers Care Web Graphic Designer Name Role Phone Liset Haynes MD Primary Care Provider [phone] Encounter Details Date Type Department Care Team ([facility] Contact Info) Description 11/09/2023 Orders Only [facility] Oncology and Hematology - Aureliano Marisela [address] [place] [address] Kendall Wills MD [address] [place], [place] [address] [address] [place] [phone] Polycythemia, secondary Social History Tobacco Use [...] Upcoming Encounters Date Type Department Care Team ([facility] Contact Info) Description 01/10/2025 11:30 AM CDT Office Visit [facility] Oncology and Hematology - Aureliano [address] [place] [address] Kendall Wills MD [address] [place] [phone] documented as of this encounter Visit Diagnoses Diagnosis Polycythemia, secondary documented in this encounter Care Teams Web Graphic Designer Relationship Specialty Start Date End Date Liset Haynes MD [address] [place] [address] PCP - General Family Practice 01/06/23 documented as of this encounter
--- OUTSIDE RECORDS SUMMARY | 2024-07-24 00:07 | XMS_ITS | Encounter Summary ---
Author Organization [facility] [id number] [facility] Address [address] [place] [address] Care Team Providers Care Materials Handler Name Role Phone Liset Haynes MD Primary Care Provider [phone] Encounter Details Date Type Department Care Team ([facility] Contact Info) Description 08/03/2023 Orders Only [facility] Oncology and Hematology - Aureliano Marisela [address] [place] [address] Kendall Wills MD [facility] [employer] [address] [place] [phone] Polycythemia, secondary Social History Tobacco Use [...] AM CDT Office Visit [facility] Oncology and Hematology - Aureliano [address] [place] [address] Kendall Wills MD [address] [employer] [address] [place] [address] documented as of this encounter Visit Diagnoses Diagnosis Polycythemia, secondary documented in this encounter Care Teams Materials Handler Relationship Specialty Start Date End Date Liset Haynes MD [address] [place] [address] PCP - General Family Practice 01/06/23 documented as of this encounter
--- OUTSIDE RECORDS SUMMARY | 2024-07-24 00:07 | XMS_ITS | Encounter Summary ---
Author Organization [facility] Address [address] [address] Care Team Providers Care Toy Packer Name Role Phone Liset Haynes MD Primary Care Provider [phone] Encounter Details Date Type Department Care Team ([facility] Contact Info) Description 07/20/2023 Orders Only [facility] Oncology and Hematology - Aureliano Marisela [address] [place] [address] Kendall Wills MD [address] [place], [place] [address] [address] [place] [phone] Polycythemia, secondary Social History Tobacco Use [...] Upcoming Encounters Date Type Department Care Team ([facility] Contact Info) Description 01/10/2025 11:30 AM CDT Office Visit [facility] Oncology and Hematology - Aureliano [address] [place] [address] Kendall Wills MD [facility] [employer] [address] [place] [phone] documented as of this encounter Visit Diagnoses Diagnosis Polycythemia, secondary documented in this encounter Care Teams Toy Packer Relationship Specialty Start Date End Date Liset Haynes MD [address] [place] [address] PCP - General Family Practice 01/06/23 documented as of this encounter
--- OUTSIDE RECORDS SUMMARY | 2024-07-24 00:07 | XMS_ITS | Encounter Summary ---
Author Organization [facility] [employer] [facility] Address [address] [place] [address] Care Team Providers Care Primary Care Pediatrician Name Role Phone Liset Haynes MD Primary Care Provider [phone] Reason for Visit * Reason Comments Follow Up Encounter Details Date Type Department Care Team ([facility] st Contact Info) Description 10/23/2023 11:45 AM CDT Office Visit [facility] Oncology and Hematology - [place]iano [address] [facility] [address] [place] [address] Kendall Wills MD [address] [facility] [address] [place] [address] Polycythemia, secondary (Primary Dx) Social [...] Sign Reading Time Taken Comments Blood Pressure 104/68 10/23/2023 11:46 AM CDT Pulse 61 10/23/2023 11:46 AM CDT Temperature 36 ??C (96.8 ??F) 10/23/2023 11:46 AM CDT Respiratory Rate 14 10/23/2023 11:46 AM CDT Oxygen Saturation 94% 10/23/2023 11:46 AM CDT Inhaled Oxygen Concentration - - Weight - - Height - - Body Mass Index - - documented in this encounter Progress Notes * Kendall Wills MD - 10/23/2023 12:03 PM CDT HEMATOLOGY / ONCOLOGY PROGRESS NOTE Patient Identification: Name: Neal Amaro Age: 83 y.o. 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 TREATMENT HISTORY SUBJECTIVE Patient came to the office for follow-up visit. Since the last visit he had 3 admission to the hospital. He was admitted to the hospital in July due to the fall and had subarachnoid hemorrhage. In September he had COVID-pneumonia. And then most recently when he was off warfarin due to subarachnoid hemorrhage he developed pulmonary embolism and was started back on warfarin. He denies any bleeding and bruising now. No other new complaints. Review of system Constitutional: Patient did not mention fevers, sweats, denies any tiredness and fatigue, weight and appetite stable. 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 Events noted. Labs noted. Hematocrit is 45.5. No need for phlebotomy. Continue warfarin. Follow-up in 3 months. History of recurrent PE and DVT status post back surgery in 2014 and IVC filter placement. Patient had another pulmonary embolism when he was off the warfarin due to subarachnoid hemorrhage in September 2023. He was since put back on warfarin 5 mg daily. Denies any other new complaints. Follow-up in3 months with repeat labs. TOBACCO COUNSELING He is not a tobacco/nicotine user. 10/23/2023 Kendall Wills MD documented in this encounter Plan of Treatment Upcoming Encounters Date Type Department Care Team (Late st Contact Info) Description 01/10/2025 11:30 AM CDT Office Visit [facility] Oncology and Hematology - [place] [address] [facility] [address] [place] [address] Kendall Wills MD [address] [facility] [address] [place] [address] Scheduled Orders Name Type Priority Associated Diagnoses Orde r Schedule CBC WITH DIFFERENTIAL Lab Stat Polycythemia, secondary Expected: 01/15/2024, Expires: 10/22/2024 documented as of this encounter Visit Diagnoses Diagnosis Polycythemia, secondary- Primary documented in this encounter Care Teams Primary Care Pediatrician Relationship Specialty Start Date End Date Liset Haynes MD [address] [place] [address] PCP - General Family Practice 01/06/23 documented as of this encounter
--- OUTSIDE RECORDS SUMMARY | 2024-07-24 00:07 | XMS_ITS | Encounter Summary ---
Author Organization [facility] [employer] [facility] Address [address] [place] [address] Care Team Providers Care Weld Fitter Name Role Phone Liset Haynes MD Primary Care Provider [phone] Encounter Details Date Type Department Care Team ([facility] Contact Info) Description 11/23/2023 Orders Only [facility] Oncology and Hematology - [place] [address] [place] [address] Kendall Wills MD [address] [place], [place] [address] [address] [place] [address] Polycythemia, secondary Social History Tobacco Use [...] Upcoming Encounters Date Type Department Care Team ([facility] Contact Info) Description 01/10/2025 11:30 AM CDT Office Visit [facility] Oncology and Hematology - [place] [address] [place] [address] Kendall Wills MD [facility] [employer] [address] [place] [address] documented as of this encounter Visit Diagnoses Diagnosis Polycythemia, secondary documented in this encounter Care Teams Weld Fitter Relationship Specialty Start Date End Date Liset Haynes MD [address] [place] [address] PCP - General Family Practice 01/06/23 documented as of this encounter
--- OUTSIDE RECORDS SUMMARY | 2024-07-24 00:07 | XMS_ITS | Encounter Summary ---
Author Organization [facility] [employer] [facility] Address [address] [place] [address] Care Team Providers Care Booster Pump Oiler Name Role Phone Liset Haynes MD Primary Care Provider [phone] Reason for Visit * Reason Onset Date Comments warfarin 09/24/2023 Encounter Details Date Type Department Care Team ([facility] st Contact Info) Description 09/24/2023 Telephone [facility] Oncology and Hematology - [place] [address] [facility] [address] [place] [address] Ivonne Hernandez FNP [address] [facility] [address] [place] [address] warfarin Social History Tobacco Use Types Packs/Day Years [...] encounter Miscellaneous Notes * Telephone Encounter - Karen Whatley - 09/24/2023 9:44 AM CST Pt's primary called stating pt had a brain hemorrhage and she was wanting 2nd opinion on starting patient back on warfarin. She said that the PA in pcp office did start patient on Aspirin 325 daily. I advised PCP to make sure pt has a follow up with Neurology and that they should most likely be theones who decide whether patient is started back on Warfarin. Our office does not prescribe pt's warfarin. PCP said pt has an upcoming apt with Neuro. We will keep our october follow up apt with patientand see them then. EQUIPMENT FIELD SERVICE TECHNICIAN documented in this encounter Plan of Treatment Upcoming Encounters Date Type Department Care Team (Late st Contact Info) Description 01/10/2025 11:30 AM CDT Office Visit [facility] Oncology and Hematology - Aureliano [address] [facility] [address] [place] [address] Kendall Wills MD [address] [facility] [address] [place] [address] documented as of this encounter Visit Diagnoses Not on filedocumented in this encounter Care Teams Booster Pump Oiler Relationship Specialty Start Date End Date Liset Haynes MD [address] [place] [address] PCP - General Family Practice 01/06/23 documented as of this encounter
--- OUTSIDE RECORDS SUMMARY | 2024-07-24 00:07 | XMS_ITS | Encounter Summary ---
Author Organization [facility] [employer] [facility] Address [address] [place] [address] Care Team Providers Care Waterworks Pump Station Operator Name Role Phone Liset Haynes MD Primary Care Provider [phone] Encounter Details Date Type Department Care Team ([facility] Contact Info) Description 06/22/2023 Orders Only [facility] Oncology and Hematology - [place] [address] [place] [address] Kendall Wills MD [facility] [employer] [address] [place] [address] Polycythemia, secondary Social History Tobacco Use [...] Upcoming Encounters Date Type Department Care Team ([facility] Contact Info) Description 01/10/2025 11:30 AM CDT Office Visit [facility] Oncology and Hematology - [place] [address] [place] [address] Kendall Wills MD [address] [employer] [address] [place] [address] documented as of this encounter Visit Diagnoses Diagnosis Polycythemia, secondary documented in this encounter Care Teams Waterworks Pump Station Operator Relationship Specialty Start Date End Date Liset Haynes MD [address] [place] [address] PCP - General Family Practice 01/06/23 documented as of this encounter
--- OUTSIDE RECORDS SUMMARY | 2024-07-24 00:07 | XMS_ITS | Encounter Summary ---
Author Organization [facility] [employer] [facility] Address [address] [place] [address] Care Team Providers Care Credit Review Officer Name Role Phone Liset Haynes MD Primary Care Provider [phone] Encounter Details Date Type Department Care Team ([facility] Contact Info) Description 08/17/2023 Orders Only [facility] Oncology and Hematology - [place] [address] [place] [address] Kendall Wills MD [facility] [employer] [address] [place] [address] Polycythemia, secondary Social History Tobacco Use [...] Upcoming Encounters Date Type Department Care Team ([facility] Contact Info) Description 01/10/2025 11:30 AM CDT Office Visit [facility] Oncology and Hematology - [place] [address] [place] [address] Kendall Wills MD [address] [facility] [address] [place] [address] documented as of this encounter Visit Diagnoses Diagnosis Polycythemia, secondary documented in this encounter Care Teams Credit Review Officer Relationship Specialty Start Date End Date Liset Haynes MD [address] [place] [address] PCP - General Family Practice 01/06/23 documented as of this encounter
--- OUTSIDE RECORDS SUMMARY | 2024-07-24 00:07 | XMS_ITS | Encounter Summary ---
Author Organization [facility] [employer] [facility] Address [address] [place] [address] Care Team Providers Care Health Sciences Program Coordinator Name Role Phone Liset Haynes MD Primary Care Provider [phone] Encounter Details Date Type Department Care Team ([facility] Contact Info) Description 10/12/2023 Orders Only [facility] Oncology and Hematology - [place] [address] [place] [address] Kendall Wills MD [facility] [employer] [address] [place] [address] Polycythemia, secondary Social History Tobacco Use [...] Upcoming Encounters Date Type Department Care Team ([facility] Contact Info) Description 01/10/2025 11:30 AM CDT Office Visit [facility] Oncology and Hematology - [place] [address] [place] [address] Kendall Wills MD [address] [employer] [address] [place] [address] documented as of this encounter Visit Diagnoses Diagnosis Polycythemia, secondary documented in this encounter Care Teams Health Sciences Program Coordinator Relationship Specialty Start Date End Date Liset Haynes MD [address] [place] [address] PCP - General Family Practice 01/06/23 documented as of this encounter
--- OUTSIDE RECORDS SUMMARY | 2024-07-24 00:07 | XMS_ITS | Encounter Summary ---
Author Organization [facility] [employer] [facility] Address [address] [place] [address] Care Team Providers Care Turning Machine Operator Helper Name Role Phone Liset Haynes MD Primary Care Provider [phone] Encounter Details Date Type Department Care Team ([facility] Contact Info) Description 09/28/2023 Orders Only [facility] Oncology and Hematology - [place] [address] [place] [address] Kendall Wills MD [facility] [employer] [address] [place] [address] Polycythemia, secondary Social History Tobacco Use [...] Upcoming Encounters Date Type Department Care Team ([facility] Contact Info) Description 01/10/2025 11:30 AM CDT Office Visit [facility] Oncology and Hematology - [place] [address] [place] [address] Kendall Wills MD [address] [employer] [address] [place] [address] documented as of this encounter Visit Diagnoses Diagnosis Polycythemia, secondary documented in this encounter Care Teams Turning Machine Operator Helper Relationship Specialty Start Date End Date Liset Haynes MD [address] [place] [address] PCP - General Family Practice 01/06/23 documented as of this encounter
--- OUTSIDE RECORDS SUMMARY | 2024-07-24 00:07 | XMS_ITS | Encounter Summary ---
Author Organization [facility] [employer] [facility] Address [address] [place] [address] Care Team Providers Care Manager Embalmer Funeral Director Name Role Phone Liset Haynes MD Primary Care Provider [phone] Encounter Details Date Type Department Care Team ([facility] Contact Info) Description 12/21/2023 Orders Only [facility] Oncology and Hematology - [place] [address] [place] [address] Kendall Wills MD [facility] [address] [place] [phone] Polycythemia, secondary Social History Tobacco Use [...] Upcoming Encounters Date Type Department Care Team ([facility] Contact Info) Description 01/10/2025 11:30 AM CDT Office Visit [facility] Oncology and Hematology - [place] [address] [place] [address] Kendall Wills MD [address] [employer] [address] [place] [address] documented as of this encounter Visit Diagnoses Diagnosis Polycythemia, secondary documented in this encounter Care Teams Manager Embalmer Funeral Director Relationship Specialty Start Date End Date Liset Haynes MD [address] [place] [address] PCP - General Family Practice 01/06/23 documented as of this encounter
--- OUTSIDE RECORDS SUMMARY | 2024-07-24 00:07 | XMS_ITS | Encounter Summary ---
Author Organization [facility]] [employer] [facility] Address [address] [place] [address] Care Team Providers Care Freight Hustler Name Role Phone Liset Haynes MD Primary Care Provider [phone] Encounter Details Date Type Department Care Team ([facility] Contact Info) Description 12/07/2023 Orders Only [facility] Oncology and Hematology - [place] [address] [place] [address] Kendall Wills MD [address] [place], [place] [address] [address] [place] [phone] Polycythemia, secondary Social History Tobacco Use [...] Upcoming Encounters Date Type Department Care Team ([facility] Contact Info) Description 01/10/2025 11:30 AM CDT Office Visit [facility] Oncology and Hematology - [place] [address] [place] [address] Kendall Wills MD [address] [employer] [address] [place] [phone] documented as of this encounter Visit Diagnoses Diagnosis Polycythemia, secondary documented in this encounter Care Teams Freight Hustler Relationship Specialty Start Date End Date Liset Haynes MD [address] [place] [address] PCP - General Family Practice 01/06/23 documented as of this encounter
--- OUTSIDE RECORDS SUMMARY | 2024-07-24 00:07 | XMS_ITS | Encounter Summary ---
Author Organization [facility] Address [address] [place] [address] Care Team Providers Care Four Slide Machine Operator Name Role Phone Liset Haynes MD Primary Care Provider [phone] Encounter Details Date Type Department Care Team (Late Contact Info) Description 09/21/2023 External Device Data STL ABSTRACTION Provider, Abstract [...] Description 01/10/2025 11:30 AM CDT Office Visit [facility] Oncology and Hematology - [place] [address] [place] [address] Kednall Wills MD [address] [place] [address] documented as of this encounter Visit Diagnoses Not on filedocumented in this encounter Care Teams Four Slide Machine Operator Relationship Specialty Start Date End Date Liset Haynes MD [address] [place] [address] PCP - General Family Practice 01/06/23 documented as of this encounter
--- OUTSIDE RECORDS SUMMARY | 2024-07-24 00:07 | XMS_ITS | Encounter Summary ---
Author Organization [facility] [employer] [facility] Address [address] [place] [address] Care Team Providers Care Account General Manager Name Role Phone Liset Haynes MD Primary Care Provider [phone] Reason for Visit * Reason Comments Follow Up Encounter Details Date Type Department Care Team (Latest Contact Info) Description 07/21/2023 11:30 AM SUBSURFACE AUGMENTEE OPERATOR Office Visit [facility] Oncology and Hematology - [place] [facility] [address] [place] [address] Ivonne Hernandez FNP [address] [facility] [address] [place] [address] Erythrocytosis (Primary Dx); Elevated red blood cell count Social History Tobacco Use Types Packs/Day Years [...] Sign Reading Time Taken Comments Blood Pressure 118/60 07/21/2023 11:05 AM SUBSURFACE AUGMENTEE OPERATOR Pulse 62 07/21/2023 11:05 AM SUBSURFACE AUGMENTEE OPERATOR Temperature 36.1 ??C (96.9 ??F) 07/21/2023 11:[address] Respiratory Rate 10 07/21/2023 11:05 AM SUBSURFACE AUGMENTEE OPERATOR Oxygen Saturation - - Inhaled Oxygen Concentration - - Weight - - Height - - Body Mass Index - - documented in this encounter Progress Notes * Ivonne Hernandez FNP - 07/21/2023 12:04 PM CST Hematology / Oncology Progress Note Patient Identification: Name: Neal Amaro Age: 82 y.o. 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 He has sleep apnea and COPD but refuses to wear a CPAP machine. He received phlebotomy in April. He has generalized bruising but denies bleeding in his stool or urine. He has SOB on exertion. Denies chest pain. No other complaints. Tobacco Counseling: He is not a tobacco/nicotine user. Review of Systems Constitutional: Negative for chills, fatigue, fever and unexpected weight change. HENT: Negative for mouth sores. Respiratory: Positive for shortness of breath. Negative for cough. Cardiovascular: Negative for chest pain, palpitations and leg swelling. Gastrointestinal: Negative for abdominal pain, blood in stool, constipation, diarrhea, nausea and vomiting. Genitourinary: Negative for hematuria. Musculoskeletal: Negative for arthralgias. Skin: Negative for rash and wound. Neurological: Negative for dizziness, weakness, numbness and headaches. Hematological: Negative for adenopathy. Does not bruise/bleed easily. Objective: Vital signs in last 24 hours: As per nursing note Physical Exam Vitals reviewed. Constitutional: General: He is awake. Appearance: Normal appearance. He is obese. HENT: Head: Normocephalic and atraumatic. Mouth/Throat: Mouth: Mucous membranes are moist. Pharynx: Oropharynx is clear. Eyes: Pupils: Pupils are equal, round, and reactive to light. Cardiovascular: Rate and Rhythm: Normal rate and regular rhythm. Pulses: Normal pulses. Heart sounds: Normal heart sounds. Pulmonary: Effort: Pulmonary effort is normal. Breath sounds: Normal breath sounds. Decreased air movement present. Abdominal: General: Abdomen is flat. Bowel sounds are normal. Palpations: Abdomen is soft. There is no hepatomegaly or splenomegaly. Musculoskeletal: General: Normal range of motion. Cervical back: Normal range of motion. Right lower leg: Edema present. Left lower leg: Edema present. Skin: General: Skin is warm and dry. Findings: Bruising present. Neurological: General: No focal deficit present. Mental Status: He is alert and oriented to person, place, and time. 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 I have reviewed labs with patient and . Hct >50. Patient will continue phlebotomy on every 2-month basis to keep hematocrit less than 50. Patient is on warfarin. I have encouraged for diet, weight loss and exercise. Follow-up in 3 months. 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 Patient is asymptomatic CYNTHIA Steen, 07/21/2023, 12:04 PM Hematology Oncology Nurse Practitioner [facility] This patient's plan of care has been reviewed and approved by Dr. Kendall Wills. URFACE AUGMENTEE OPERATOR documented in this encounter Plan of Treatment Upcoming Encounters Date Type Department Care Team (Late st Contact Info) Description 01/10/2025 11:30 AM CDT Office Visit [facility] Oncology and Hematology - [place] [address] [facility] [address] [place] [address] Kendall Wills MD [address] [facility] [address] [place] [address] Scheduled Orders Name Type Priority Associated Diagnoses Orde r Schedule CBC WITHOUT DIFFERENTIAL Lab Routine Erythrocytosis Expected: 09/15/2023, Expires: 07/21/2024 documented as of this encounter Visit Diagnoses Diagnosis Erythrocytosis- Primary Reserved for inherently not codable concepts WITHOUT codable children Elevated red blood cell count Reserved for inherently not codable concepts WITHOUT codable children documented in this encounter Care Teams Account General Manager Relationship Specialty Start Date End Date Liset Haynes MD [address] [place] [address] PCP - General Family Practice 01/06/23 documented as of this encounter
--- OUTSIDE RECORDS SUMMARY | 2024-07-24 00:08 | XMS_ITS | Encounter Summary ---
Author Organization [facility] Address [address] [facility] Attn: Epic Prelude ADT [place] [address] Care Team Providers Care Desk Top Publisher Name Role Phone Christopher Diop MD Primary Care Provider [phone] Encounter Details Date Type Department Care Team ([facility] Contact Info) Description 06/01/2018 Orders Only Initial Department [address] [facility] ATTN: [place] [address] Provider, Historical Social History Tobacco Use Types Packs/Day Years [...] Description 01/10/2025 11:30 AM CDT Office Visit [facility] Oncology and Hematology - [place] [address] [place] [address] [facility] [address] [place] [address] Kendall Wills MD [address] [facility] [address] [place] [address] documented as of this encounter Procedures Procedure Name Priority Date/Time Associated Diagnosis Comments IRON, TIBC, AND PERCENT SATURATION Routine 06/01/2018 5:46 AM CDT CBC WITH DIFFERENTIAL Routine 06/01/2018 5:46 AM CDT BASIC METABOLIC PANEL Routine 06/01/2018 5:46 AM CDT documented in this encounter Results * (ABNORMAL) CBC WITH DIFFERENTIAL (06/01/2018 5:46 AM CDT) WBC 5.8 3.8 - 10.8 Thousand/ uL [facility] . [facility] RBC 5.28 4.20 - 5.80 Million/u L [facility] HEMOGLOBIN 14.9 13.2 - 17.1 g/dL [facility] . [facility] HEMATOCRIT 45.2 38.5 - 50.0 % [facility] . [facility] MCV 85.6 80.0 - 100.0 fL [facility] . [facility] MCH 28.2 27.0 - 33.0 pg [facility] . [facility] MCHC 33.0 32.0 - 36.0 g/dL [facility] . [facility] RDW 15.6(H) 11.0 - 15.0 % [facility] . [facility] PLATELETS 283 140 - 400 Thousand/ uL [facility] . [facility] MPV 10.3 7.5 - 12.5 fL [facility] . [facility] NEUTROPHIL ABSOLUTE 3,434 1,500 - 7,800 cells/uL [facility] . [facility] LYMPHOCYTE ABSOLUTE 1,247 850 - 3,900 cells/uL [facility] . [facility] MONOCYTE ABSOLUTE 945 200 - 950 cells/uL [facility] . [facility] EOSINOPHIL ABSOLUTE 122 15 - 500 cells/uL [facility] BASOPHILS ABSOLUTE 52 0 - 200 cells/uL [facility] NEUTROPHIL 59.2 % [facility] LYMPHOCYTES 21.5 % [facility] MONOCYTE 16.3 % [facility] EOSINOPHILS 2.1 % [facility] BASOPHILS 0.9 % [facility] Comment: NO DRAW FEE 2ND ORDER COPY OF INS CARD W/1ST ORDER FASTING:NO FASTING: NO Test Performed at: [facility] [address] [place], [place] ??[phone] Ousmane Savage D.O., MPH 06/01/2018 5:46 AM CDT Kendall Wills MD HEMATOLOGY ORDERABLE S [facility] [address] [place] [address] * (ABNORMAL) BASIC METABOLIC PANEL (06/01/2018 5:46 AM CDT) GLUCOSE 174(H) 65 - 139 mg/dL [facility] Comment:Non-fasting referenc e interval BUN 21 7 - 25 mg/dL [facility] CREATININE 1.40(H) 0.70 - 1.18 mg/dL [facility] Comment: For patients >49 years of age, the reference limit for Creatinine is approximately 13% higher for people identified as -Iraqi. GFR 49(L) > OR = 60 mL/min/1. 73m2 [facility] GFR, 57(L) > OR = 60 mL/min/1. 73m2 [facility] [employer] [facility] BUN/CREAT RATIO 15 6 - 22 (calc) [facility] SODIUM 140 135 - 146 mmol/L [facility] POTASSIUM 4.4 3.5 - 5.3 mmol/L [facility] CHLORIDE 104 98 - 110 mmol/L [facility] [employer] . [facility] CO2 27 20 - 32 mmol/L [facility] . [facility] CALCIUM 8.8 8.6 - 10.3 mg/dL [facility] Comment: Test Performed at: [facility] ??[phone] Ousmane Savage D.O., MPH 06/01/2018 5:46 AM CDT Kendall Wills MD CHEMISTRY ORDERABLES [facility] [address] [place] [address] * IRON, TIBC, AND PERCENT SATURATION (06/01/2018 5:46 AM CDT) IRON 97 50 - 180 mcg/dL [facility] [employer] [facility] TIBC 288 250 - 425 mcg/dL (calc) [employer] [facility] IRON % SATURATION 34 15 - 60 % (calc) [facility] FERRITIN 32 20 - 380 ng/mL [facility] [employer] [facility] Comment: Test Performed at: [facility] [address] [place], [place] ??[phone] Ousmane Savage D.O., MPH 06/01/2018 5:46 AM CDT Kendall Wills MD CHEMISTRY ORDERABLES [employer] [facility] [address] [place] [address] documented in this encounter Visit Diagnoses Not on filedocumented in this encounter Care Teams Desk Top Publisher Relationship Specialty Start Date End Date Christopher Diop MD [address] [place] [address] PCP - General Family Practice 03/19/17 01/05/23 documented as of this encounter
--- OUTSIDE RECORDS SUMMARY | 2024-07-24 00:08 | XMS_ITS | Encounter Summary ---
Author Organization [facility] [employer] [facility] Address [address] [place] [address] Care Team Providers Care Band Booker Name Role Phone Liset Haynes MD Primary Care Provider [phone] Encounter Details Date Type Department Care Team ([facility] Contact Info) Description 03/16/2023 Orders Only [facility] Oncology and Hematology - [place] [address] [place] [address] Kendall Wills MD [address] [place], [place] [address] [address] [place] [address] Polycythemia, secondary Social History Tobacco Use [...] Upcoming Encounters Date Type Department Care Team ([facility] Contact Info) Description 01/10/2025 11:30 AM CDT Office Visit [facility] Oncology and Hematology - [place] [address] [place] [address] Kendall Wills MD [address] [email or web address] [address] [place] [address] documented as of this encounter Visit Diagnoses Diagnosis Polycythemia, secondary documented in this encounter Care Teams Band Booker Relationship Specialty Start Date End Date Liset Haynes MD [address] [place] [address] PCP - General Family Practice 01/06/23 documented as of this encounter
--- OUTSIDE RECORDS SUMMARY | 2024-07-24 00:08 | XMS_ITS | Encounter Summary ---
Author Organization [facility] Address [address] [place] [address] Care Team Providers Care Steamblaster Name Role Phone Liset Haynes MD Primary Care Provider [phone] Reason for Visit * Reason Comments Follow Up Encounter Details Date Type Department Care Team ([facility] st Contact Info) Description 04/24/2023 12:15 PM CDT Office Visit [facility] Oncology and Hematology - [place] [address] [place] [address] [address] [place] [address] Kendall Wills MD [address] [facility] [address] [place] [address] Polycythemia, secondary (Primary Dx) Social [...] Sign Reading Time Taken Comments Blood Pressure 117/61 04/24/2023 11:55 AM CDT Pulse 62 04/24/2023 11:55 AM CDT Temperature - - Respiratory Rate 12 04/24/2023 11:55 AM CDT Oxygen Saturation 95% 04/24/2023 11:55 AM CDT Inhaled Oxygen Concentration - - Weight 158.8 kg (350 lb) 04/24/2023 11:55 AM CDT Height - - Body Mass Index 44.94 06/08/2018 8:37 AM WIND [employer]URB[employer] SERVICE TECHNICIAN documented in this encounter Progress Notes * Kendall Wills MD - 04/24/2023 12:19 PM CDT HEMATOLOGY / ONCOLOGY PROGRESS NOTE Patient Identification: Name: Neal Amaro Age: 82 y.o. 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 He has gained 10 pound weight. Denies any chest pain and shortness of breath. Denies any bleeding and bruising. No other new complaints. Review of system Constitutional: Patient did not mention fevers, sweats, fatigue, malaise, weight loss, 10 pound weight gain HEENT: Patient did not mention sinus congestion, [...] 6.1 hemoglobin 16.2 hematocrit 50.2 platelet 283,000 @IMAGEIMP@ Assessment: Plan: Patient Active Problem List Diagnosis Date Noted Morbid obesity with BMI of 40.0-44.9, adult 04/23/2017 Chronic anemia 03/19/2017 Bruising 03/19/2017 Edema 03/19/2017 Obesity (BMI 35.0-39.9 without comorbidity) 03/19/2017 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 Patient will continue phlebotomy on every 3-month basis to keep hematocrit less than 50. Patient maurice warfarin. Follow-up in 3 months. He is due for next phlebotomy in May. 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 He is on chronic anticoagulation with warfarin. 04/24/2023 Kendall Wills MD documented in this encounter Plan of Treatment Upcoming Encounters Date Type Department Care Team (Late st Contact Info) Description 01/10/2025 11:30 AM CDT Office Visit [facility] Oncology and Hematology - [place] [address] [facility] [address] [place] [address] Kendall Wills MD [address] [facility] [address] [place] [address] documented as of this encounter Visit Diagnoses Diagnosis Polycythemia, secondary- Primary documented in this encounter Care Teams Steamblaster Relationship Specialty Start Date End Date Liset Haynes MD [address] [place] [address] PCP - General Family Practice 01/06/23 documented as of this encounter
--- OUTSIDE RECORDS SUMMARY | 2024-07-24 00:08 | XMS_ITS | Encounter Summary ---
Author Organization [facility] Address [address] [place] [address] Care Team Providers Care Cushion Filler Name Role Phone Christopher Diop MD Primary Care Provider [phone] Encounter Details Date Type Department Care Team (Late Contact Info) Description 07/06/2017 Orders Only [facility] Oncology and Hematology - [place] [address] [place] [address] Sisi Martin RN Chronic anemia Social History Tobacco Use Types Packs/Day Years [...] Upcoming Encounters Date Type Department Care Team ([facility] Contact Info) Description 01/10/2025 11:30 AM CDT Office Visit [facility] Oncology and Hematology [facility] [address] [place] [address] Kendall Wills MD [address] [facility] [address] [place] [address] documented as of this encounter Procedures Procedure Name Priority Date/Time Associated Diagnosis Comments IRON, TIBC, AND PERCENT SATURATION Routine 2016 Chronic anemia FERRITIN Routine 07/07/2017 Chronic anemia CBC WITH DIFFERENTIAL Routine 07/06/2017 Chronic anemia documented in this encounter Results * (ABNORMAL) IRON, TIBC, AND PERCENT SATURATION (07/07/2017) Blood Kendall Wills MD CHEMISTRY ORDERABLES Performing Organization Address [facility] Co de Phone Number EXTERNAL LAB * FERRITIN (07/07/2017) Blood Kendall Wills MD CHEMISTRY ORDERABLES Performing Organization Address [facility] Co de Phone Number EXTERNAL LAB * (ABNORMAL) CBC WITH DIFFERENTIAL (07/06/2017) Blood Kendall Wills MD HEMATOLOGY ORDERABLE S Performing Organization Address [facility] de Phone Number EXTERNAL LAB documented in this encounter Visit Diagnoses Diagnosis Chronic anemia Anemia, unspecified documented in this encounter Care Teams Cushion Filler Relationship Specialty Start Date End Date Christopher Diop MD [address] [facility] [place] [address] PCP - General Family Practice 03/19/17 01/05/23 documented as of this encounter
--- OUTSIDE RECORDS SUMMARY | 2024-07-24 00:08 | XMS_ITS | Encounter Summary ---
Author Organization [facility] [employer] [facility] Address [address] [place] [address] Care Team Providers Care Convention Services Manager Name Role Phone Liset Haynes MD Primary Care Provider [phone] Encounter Details Date Type Department Care Team ([facility] Contact Info) Description 05/25/2023 Orders Only [facility] Oncology and Hematology - [place] [address] [place] [address] Kendall Wills MD [address] [place], [place] [address] [address] [place] [address] Polycythemia, secondary Social History Tobacco Use [...] Upcoming Encounters Date Type Department Care Team ([facility] Contact Info) Description 01/10/2025 11:30 AM CDT Office Visit [facility] Oncology and Hematology - [place] [address] [place] [address] Kendall Wills MD [address] [employer] [address] [place] [address] documented as of this encounter Visit Diagnoses Diagnosis Polycythemia, secondary documented in this encounter Care Teams Convention Services Manager Relationship Specialty Start Date End Date Liset Haynes MD [address] [place] [address] PCP - General Family Practice 01/06/23 documented as of this encounter
--- OUTSIDE RECORDS SUMMARY | 2024-07-24 00:08 | XMS_ITS | Encounter Summary ---
Author Organization [facility] [employer] [facility] Address [address] [place] [address] Care Team Providers Care Tanbark Peeler Name Role Phone Liset Haynes MD Primary Care Provider [phone] Reason for Referral * Laboratory Services (Routine) - Closed Specialty Diagnoses / Procedures Referred By Contac t Referred To Contact Diagnoses Polycythemia, secondary Procedures JAK2 MUTATION Kendall Wills MD [address] [email or web address] [address] [place] [address] Referral ID Status Reason Start Date Expiration Date Visits Re quested Visits Authorized [id number] Closed 01/21/2023 02/21/2024 1 1 Reason for Visit * Reason Onset Date Comments lab orders 01/21/2023 Encounter Details Date Type Department Care Team ([facility] st Contact Info) Description 01/21/2023 Telephone [facility] Oncology and Hematology - [place] [facility] [address] [address] Kendall Wills MD [address] [email or web address] [address] [place] [address] lab orders Social History Tobacco Use Types Packs/Day Years [...] Description 01/10/2025 11:30 AM CDT Office Visit [facility] Oncology and Hematology - [place] [address] [facility] [address] [place] [address] Kendall Wills MD [address] [facility] [address] [place] [address] Scheduled Orders Name Type Priority Associated Diagnoses Orde r Schedule JAK2 MUTATION Lab Routine Polycythemia, secondary Expected: 01/21/2023, Expires: 01/22/2024 documented as of this encounter Visit Diagnoses Diagnosis Polycythemia, secondary- Primary documented in this encounter Care Teams Tanbark Peeler Relationship Specialty Start Date End Date Liset Haynes MD [address] [place] [id number] PCP - General Family Practice 01/06/23 documented as of this encounter
--- OUTSIDE RECORDS SUMMARY | 2024-07-24 00:08 | XMS_ITS | Encounter Summary ---
Author Organization [facility] [employer] [facility] Address [address] [place] [address] Care Team Providers Care Cork Slabs Sawyer Name Role Phone Liset Haynes MD Primary Care Provider [phone] Encounter Details Date Type Department Care Team ([facility] Contact Info) Description 04/27/2023 Orders Only [facility] Oncology and Hematology - [place] [address] [place] [address] Kendall Wills MD [address] [place], [place] [address] [address] [place] [address] Polycythemia, secondary Social History Tobacco Use [...] Upcoming Encounters Date Type Department Care Team ([facility] Contact Info) Description 01/10/2025 11:30 AM CDT Office Visit [facility] Oncology and Hematology - [place] [address] [place] [address] Kendall Wills MD [facility] [employer] [address] [place] [address] documented as of this encounter Procedures Procedure Name Priority Date/Time Associated Diagnosis Comments CBC WITH DIFFERENTIAL Routine 04/24/2023 9:57 AM CDT documented in this encounter Results * CBC WITH DIFFERENTIAL (04/24/2023 9:57 AM CDT) Blood Kendall Wills MD HEMATOLOGY ORDERABLE S documented in this encounter Visit Diagnoses Diagnosis Polycythemia, secondary documented in this encounter Care Teams Cork Slabs Sawyer Relationship Specialty Start Date End Date Liset Haynes MD [address] [place] [address] PCP - General Family Practice 01/06/23 documented as of this encounter
--- OUTSIDE RECORDS SUMMARY | 2024-07-24 00:08 | XMS_ITS | Encounter Summary ---
Author Organization [facility] Address [address] [place] [address] Care Team Providers Care Wind Turbine Controls Engineer Name Role Phone Christopher Diop MD Primary Care Provider [phone] Reason for Visit * Reason Comments Follow Up Results Encounter Details Date Type Department Care Team ([facility] st Contact Info) Description 06/08/2018 9:00 AM BUCKLE STRINGER Office Visit [facility] Oncology and Hematology - [place] [address] [facility] [address] [place] [address] Kendall Wills MD [address] [facility] [address] [place] [address] Chronic anemia (Primary Dx) Social History Tobacco Use Types [...] Sign Reading Time Taken Comments Blood Pressure 145/74 06/08/2018 8:37 AM BUCKLE STRINGER Pulse 66 06/08/2018 8:37 AM BUCKLE STRINGER Temperature 36.4 ??C (97.5 ??F) 06/08/2018 8:37 AM CS T Respiratory Rate - - Oxygen Saturation 95% 06/08/2018 8:37 AM BUCKLE STRINGER Inhaled Oxygen Concentration - - Weight 160.8 kg (354 lb 9.6 oz) 06/08/2018 8:37 AM BUCKLE STRINGER Height 188 cm (6' 2 ) 06/08/2018 8:37 AM BUCKLE STRINGER Body Mass Index 45.53 06/08/2018 8:37 AM BUCKLE STRINGER documented in this encounter Progress Notes * Kendall Wills MD - 06/08/2018 9:31 AM CST HEMATOLOGY / ONCOLOGY PROGRESS NOTE Patient Identification: Name: Neal Amaro Age: 77 y.o. Sex: male : 1940 Subjective: HPI This is a pleasant 76-year-old obese male with history of pulmonary embolism and DVT initially diagnosed in 2015 status post IVC filter placement and was treated with Xarelto until recently. Patient also has history of hypertension, hyperlipidemia and diabetes. 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 He came into the hospital with generalized weakness and shortness of breath. He was found to have hemoglobin of 5.7. He received 3 units of packed red blood cell transfusion. Workup showed low level of iron. He also received IV iron infusion with B12 injection. EGD and colonoscopy was performed in the hospital that showed benign polyps and some evidence of gastritis. Patient also had hematuria for which she was seen by urologist in the hospital. Interval History: Patient was seen by Dr. Myers in urology on April 03 and cystoscopy was done. He still complains of intermittent hematuria. Received Feraheme cycle one day one on March 26 and day [address] chest angiogram and Doppler studies were performed on May 18, 2017. Patient was started on Pradexa on July 01, 2017 by primary care physician. Patient received Feraheme on June 01 and June 08. Review of system Constitutional: No fever; no night sweats; no anorexia; no weight loss, denies any tiredness and fatigue Respiratory: No shortness of breath; no pleuritic chest pain; no cough; no hemoptysis Cardiac: No cardiac-like chest pain; no palpitations; no orthopnea; no PND; no MCMANUS GI: No abdominal pain; no nausea; no vomiting; no diarrhea; no hematochezia; no melena Musculosketetal: no bone pain; no arthralgia; no joint swelling; no myalgia; Neuro: No headache; no change in vision; no sensory changes; no muscle weakness; no confusion; no seizures Ext no edema Denies any further hematuria. Objective: Vital signs in last 24 hours: As per nursing note Exam: Gen: NAD Lungs: Clear Cardiac: S1 and S2 without murmurs or gallops Abd: Soft, tender, no hepatomegally, no masses Extr: No LE edema Scheduled Meds:@[email or web address]@ Continuous Infusions:@[email or web address]@ Data Review: [facility] Labs from April 23 showed WC 5.2 hemoglobin 12.4 MCV 85.3 platelet 425,000 neutrophils 57%, creatinine 1.7. Labs from May 18 showed hemoglobin of 12.3 ferritin level of 22, iron saturation 8% and serum iron 25. Left from July 06 showed WC 5.7 hemoglobin 13.3 platelet 336,000. Labs from showed WBC 6.2 hemoglobin 13.6 platelet 369,000 creatinine 1.6. Labs from December 02 showed creatinine 1.48, iron 36 iron saturation 12%, ferritin 19, WBC 5.1 hemoglobin 14.1 MCV 81.4 platelet 397,000. Labs from June 01 showed creatinine 1.4 WAC 5.8 hemoglobin 14.9 platelet 283,000 iron 97 iron saturation 34% ferritin 32 Assessment: Plan: Patient Active Problem List Diagnosis Date Noted ??? Morbid obesity with BMI of 40.0-44.9, adult 04/23/2017 ??? Chronic anemia 03/19/2017 ??? Bruising 03/19/2017 ??? Edema 03/19/2017 ??? Obesity (BMI 35.0-39.9 without comorbidity) 03/19/2017 Microcytic anemia with normal WBC and platelet count. Workup showed iron deficiency of unclear etiology. Patient has a history of intermittent hematuria. EGD and colonoscopy came back unremarkable except some benign polyps and gastritis. There was no evidence of active bleeding.Patient received Feraheme on March 26 and .Patient received another dose of Feraheme on June 01 in June 08. EGD was performed on November 16 that showed peptic ulcer disease with out any active bleeding. Labs reviewed showed a stable CBC and iron level. Patient was not able to tolerate oral iron due toconstipation and has discontinued. I will see him back in 9 months with repeat labs. 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 Patient is on warfarin 5 mg daily. INR has been monitored by her primary care physician. 06/08/2018 Kendall Wills MD LE STRINGER documented in this encounter Plan of Treatment Upcoming Encounters Date Type Department Care Team (Late st Contact Info) Description 01/10/2025 11:30 AM CDT Office Visit [facility] Oncology and Hematology - [place] [address] [facility] [address] [place] [address] Kendall Wills MD [address] [facility] [address] [place] [address] documented as of this encounter Visit Diagnoses Diagnosis Chronic anemia- Primary Anemia, unspecified documented in this encounter Care Teams Wind Turbine Controls Engineer Relationship Specialty Start Date End Date Christopher Diop MD [address] [place] [address] PCP - General Family Practice 03/19/17 01/05/23 documented as of this encounter
--- OUTSIDE RECORDS SUMMARY | 2024-07-24 00:08 | XMS_ITS | Encounter Summary ---
Author Organization [facility] Address [address] [facility] [address] Attn: Epic Prelude ADT [place] [address] Care Team Providers Care Table And Desk Finisher Name Role Phone Christopher Diop MD Primary Care Provider [phone] Encounter Details Date Type Department Care Team ([facility] Contact Info) Description 12/02/2017 Orders Only Initial Department [address] [facility] [address] ATTN: [place] [address] Provider, Historical Social History Tobacco Use Types [...] Upcoming Encounters Date Type Department Care Team ([facility] Contact Info) Description 01/10/2025 11:30 AM CDT Office Visit [facility] Oncology and Hematology - [place] [address] [place] [address] [facility] [address] [place] [address] Kendall Wills MD [address] [facility] [address] [place] [address] documented as of this encounter Procedures Procedure Name Priority Date/Time Associated Diagnosis Comments IRON, TIBC, AND PERCENT SATURATION Routine 12/02/2017 2:51 AM CDT CBC WITH DIFFERENTIAL Routine 12/02/2017 2:51 AM CDT FERRITIN Routine 12/02/2017 2:51 AM CDT BASIC METABOLIC PANEL Routine 12/02/2017 2:51 AM CDT documented in this encounter Results * (ABNORMAL) FERRITIN (12/02/2017 2:51 AM CDT) [facility] FERRITIN 19(L) 20 - 380 ng/mL [facility] Comment: NO DRAW FEE 2ND ORDER, COPY OF INS CARD W/1ST ORDER FASTING:YES FASTING: YES Test Performed at: [facility] [employer] ??[phone] Ousmane Savage D.O., MPH 12/02/2017 2:51 AM CDT Kendall Wills MD CHEMISTRY ORDERABLES Performing Organization Address [facility]/ZIP Co de Phone Number [facility] [address] [place] [address] * (ABNORMAL) IRON, TIBC, AND PERCENT SATURATION (12/02/2017 2:51 AM CDT) [facility] IRON 36(L) 50 - 180 mcg/dL [facility] TIBC 298 250 - 425 mcg/dL (calc) [facility] IRON % SATURATION 12(L) 15 - 60 % (calc) [facility] Comment: Test Performed at: [employer] ??[phone] Ousmane Savage D.O., MPH 12/02/2017 2:51 AM CDT Kendall Wills MD CHEMISTRY ORDERABLES Performing Organization Address City/[facility]/ZIP Co de Phone Number [facility] [address] [place] [address] * (ABNORMAL) CBC WITH DIFFERENTIAL (12/02/2017 2:51 AM CDT) Pathologist [facility] WBC 5.1 3.8 - 10.8 Thousand/ uL [facility] RBC 5.59 4.20 - 5.80 Million/u L [facility] HEMOGLOBIN 14.1 13.2 - 17.1 g/dL [facility] [employer] [facility] HEMATOCRIT 45.5 38.5 - 50.0 % [facility] MCV 81.4 80.0 - 100.0 fL [facility] MCH 25.2(L) 27.0 - 33.0 pg [facility]AGNOSTICS . OFE MCHC 31.0(L) 32.0 - 36.0 g/dL [facility] RDW 17.9(H) 11.0 - 15.0 % [facility] . OFE PLATELETS 397 140 - 400 Thousand/ uL [facility] . OFE MPV 10.3 7.5 - 12.5 fL [facility] NEUTROPHIL ABSOLUTE 2,774 1,500 - 7,800 cells/uL [facility] LYMPHOCYTE ABSOLUTE 1,295 850 - 3,900 cells/uL [facility] [employer] [facility] MONOCYTE ABSOLUTE 898 200 - 950 cells/uL [facility] EOSINOPHIL ABSOLUTE 92 15 - 500 cells/uL [facility] . OFE BASOPHILS ABSOLUTE 41 0 - 200 cells/uL [facility] [employer] . OFE NEUTROPHIL 54.4 % [facility] [employer] [facility] LYMPHOCYTES 25.4 % [employer] [facility] MONOCYTE 17.6 % [facility] . OFE EOSINOPHILS 1.8 % [employer] [facility] . OFE BASOPHILS 0.8 % [employer] [facility] Comment: Test Performed at: [employer] ??[phone] Ousmane Savage D.O., MPH 12/02/2017 2:51 AM CDT Kendall Wills MD HEMATOLOGY ORDERABLE S [facility] [address] [place] [address] * (ABNORMAL) BASIC METABOLIC PANEL (12/02/2017 2:51 AM CDT) GLUCOSE 93 65 - 99 mg/dL [facility] Comment:Fasting reference in terval BUN 20 7 - 25 mg/dL [facility] CREATININE 1.48(H) 0.70 - 1.18 mg/dL [facility] [employer] [facility] Comment: For patients >49 years of age, the reference limit for Creatinine is approximately 13% higher for people identified as -Chinese. GFR 46(L) > OR = 60 mL/min/1. 73m2 [facility] GFR, 53(L) > OR = 60 mL/min/1. 73m2 [facility] . OFE BUN/CREAT RATIO 14 6 - 22 (calc) [facility] . OFE SODIUM 140 135 - 146 mmol/L [facility] . OFE POTASSIUM 5.0 3.5 - 5.3 mmol/L [facility] . OFE CHLORIDE 106 98 - 110 mmol/L [facility] . OFE CO2 29 20 - 31 mmol/L [facility] . OFE CALCIUM 9.4 8.6 - 10.3 mg/dL [facility] Comment: Test Performed at: [facility] [id number] [place] [address] ??[phone] Ousmane Savage D.O., MPH 12/02/2017 2:51 AM CDT Kendall Wills MD CHEMISTRY ORDERABLES [facility] [facility] [address] [place] [address] documented in this encounter Visit Diagnoses Not on filedocumented in this encounter Care Teams Table And Desk Finisher Relationship Specialty Start Date End Date Christopher Diop MD [address] [place] [address] PCP - General Family Practice 03/19/17 01/05/23 documented as of this encounter
--- OUTSIDE RECORDS SUMMARY | 2024-07-24 00:08 | XMS_ITS | Encounter Summary ---
Author Organization [facility] Address [address] [place] [address] Care Team Providers Care Energy Sales Consultant Name Role Phone Liset Haynes MD Primary Care Provider [phone] Reason for Visit * Reason Comments Establish Care Encounter Details Date Type Department Care Team ([facility] st Contact Info) Description 01/06/2023 10:30 AM CDT [facility] Visit [facility] Oncology and Hematology - [place] [address] [facility] [address] [place] [address] Kendall Wills MD [address] [facility] [address] [place] [address] Polycythemia, secondary (Primary Dx) Social [...] Sign Reading Time Taken Comments Blood Pressure 123/75 01/06/2023 10:14 AM CDT Pulse 72 01/06/2023 10:14 AM CDT Temperature 36 ??C (96.8 ??F) 01/06/2023 10:14 AM CDT Respiratory Rate 10 01/06/2023 10:14 AM CDT Oxygen Saturation 99% 01/06/2023 10:14 AM CDT Inhaled Oxygen Concentration - - Weight 154.7 kg (341 lb) 01/06/2023 10:14 AM CDT Height - - Body Mass Index 43.78 06/08/2018 8:37 AM DEFENSIVE 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 Measurable Disease ? Reason for Visit Neal Amaro is a 82 y.o. male who was referred for consultation for erythrocytosis. History of present illness This is a 82-year-old obese male with a remote history of smoking referred to me for erythrocytosis. Patient was diagnosed with COPD. He denies any sleep apnea. Denies any use of testosterone replacement therapy. Patient has a history of anemia and was seen in the office in June 2018.He is intolerant to oral iron due to constipation. 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 Currently is on warfarin. He denies any chest pain and shortness of breath. He denies any other new complaints. Past Medical History Past Medical History: Diagnosis Date Diabetes mellitus Hyperlipidemia Hypertension PE and DVT in 2014 COPD Surgical History Past Surgical History: Procedure Laterality Date HX BACK SURGERY HX KNEE REPLACEMENT HX PANCREAS SURGERY Medications Current Outpatient Medications Medication Sig Dispense Refill wsdvhxyqely-athnsqlxlfcl-zuhrueretq (Trelegy Ellipta) 100-62.5-25 mcg Disk with Device Take 1 Puff by inhalation daily. dapagliflozin (Farxiga) 5 mg Tablet Take by mouth daily. levothyroxine 50 mcg tablet Take 50 mcg by mouth daily in the morning. flecainide (TAMBOCOR) 50 mg Tablet warfarin (COUMADIN) 5 mg tablet omeprazole (PriLOSEC) 40 mg Capsule, Delayed Release(E.C.) Take 40 mg by mouth daily. amiodarone (CORDARONE) 200 mg tablet Take 200 mg by mouth daily. atorvastatin (LIPITOR) 20 mg tablet Take 20 mg by mouth late in the day. baclofen (LIORESAL) 10 mg tablet Take 10 mg by mouth 3 times daily as needed for Pain. doxycycline hyclate (VIBRAMYCIN) 100 mg capsule Take 100 mg by mouth 2 times daily. finasteride (PROSCAR) 5 mg tablet Take 5 mg by mouth daily. insulin glargine (LANTUS) 100 unit/mL vial Inject 40 Units by subcutaneous injection. insulin lispro (HumaLOG) 100 unit/mL vial Inject 8 Units by subcutaneous injection 3 times daily with meals. metoprolol succinate (TOPROL XL) 25 mg Extended Release 24 hour tablet Take 25 mg by mouth daily. pregabalin (LYRICA) 75 mg Capsule Take 75 mg by mouth. tamsulosin (FLOMAX) 0.4 mg capsule Take 0.4 mg by mouth daily. Calcium-Vitamin D3-Vitamin K 500-500-40 mg-unit-mcg Tablet, Chewable Take by mouth. furosemide (LASIX) 20 mg tablet Take 20 mg by mouth daily. No current facility-administered medications for this visit. Allergies No Known Allergies Immunizations: Immunization History Administered Date(s) Administered (SPIKEVAX) (12 YRS UP PRIMARY SERIES) COVID-19 VACCINE - MRNA-1273(PF) 100 MCG/0.5 ML IM SUSP 09/13/2020, 10/16/2020 Family History Family History Problem Relation Name Age of Onset Cancer Sister Heart Disease Brother Social History Social History Tobacco Use Smoking status: Never Smokeless tobacco: Never Substance Use Topics Alcohol use: No Review of Systems Constitutional: Patient did not mention fever; no night sweats; no anorexia; no weight loss; no fatique NEENT: Patient did not mention headache; no change in vision; no change in hearing; no sore throat;no dysphagia Respiratory: Patient did not mention shortness of breath; no pleuritic chest pain; no cough; no hemoptysis Cardiac: Patient did not mention cardiac-like chest pain; no palpitations; no orthopnea; no PND; noDOE Breasts: Patient did not mention tenderness; no masses GI: Patient did not mention abdominal pain; no nausea; no vomiting; no diarrhea; no hematochezia; no melena : Patient did not mention dysuria; no frequency; no hesitancy; no hematuria TALK SHOW HOST: Musculosketetal: Patient did not mention bone pain; no arthralgia; no joint swelling; no myalgia; Skin: Patient did not mention pruritis; no rash; no petechiae; no ecchymoses Endocrine: Patient did not mention polydipsia; no polyuria; no unusual weight gain Neuro: Patient did not mention headache; no change in vision; no sensory changes; no muscle weakness; no confusion; no seizures Psych: Patient did not mention anxiety; no depression; Physical Exam Vitals: As per nursing note Constitutional: Well developed, well nourished, no acute distress, non-toxic appearance Teeth and gum. No signs of infection or swelling. Eyes: PERRL, conjunctiva normal HEENT: Atraumatic, external ears normal, nose normal, [...] deficits noted Psychiatric: Speech and behavior appropriate ? labs No results found for this or any previous visit (from the past 24 hour(s)). Labs from October 10 showed WBC 5.7 hemoglobin 17.6 hematocrit 53 platelet 304,000 iron saturation 23% serum iron 61 erythropoietin 14.2 Pathology ? Imaging & Other Studies Performance Status? Assessment / Plan: ? Secondary erythrocytosis. This is a pleasant 82-year-old obese male who has a previous history of anemia and hypercoagulable state with pulm embolism and DVT diagnosed after back surgery [id number]. He is status post IVC filter placement and currently on warfarin. Patient also has a history of COPD. He is to smoking long time ago. He denies any use of testosterone replacement therapy. He denies any history of sleep apnea. 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 We will check JAK2 mutation testing as well. Erythropoietin level was normal. We will start him on a phlebotomy on every 3-month basis to keep hematocrit less than 50 based on the repeat CBC. He is already on warfarin for history of PE. I will discuss the test results with patient in 2 to 3 weeks. I have answered all questions to patient's satisfaction. History of PE and DVT status post back surgery in 2015. Status post IVC filter placement. Patient is on warfarin. Thank you very much for allowing me to participate in Neal Amaro's evaluation and management. Please feel free to contact if I can be of any further assistance in your patient???s care requiring hematology or oncology evaluation. Sincerely, ? ? Kendall Wills M.D. cell TOBACCO COUNSELING He is not a tobacco/nicotine user. Kendall Wills MD ,01/06/2023 12:21 PM ? Total time spent 60 minutes, two third of the total time spent counseling patient [id number]. CC:?Liset Haynes MD documented in this encounter Plan of Treatment Upcoming Encounters Date Type Department Care Team (Late st Contact Info) Description 01/10/2025 11:30 AM CDT [facility] Visit [facility] Oncology and Hematology - [place] [address] [place] [address] Kendall Wills MD [address] [facility] [address] [place] [address] documented as of this encounter Visit Diagnoses Diagnosis Polycythemia, secondary- Primary documented in this encounter Care Teams Energy Sales Consultant Relationship Specialty Start Date End Date Liset Haynes MD [address] [place] [address] PCP - General Family Practice 01/06/23 documented as of this encounter
--- OUTSIDE RECORDS SUMMARY | 2024-07-24 00:08 | XMS_ITS | Encounter Summary ---
Author Organization [facility] [employer] [facility] Address [address] [place] [address] Care Team Providers Care Transporter Radiology Name Role Phone Liset Haynes MD Primary Care Provider [phone] Encounter Details Date Type Department Care Team ([facility] st Contact Info) Description 01/20/2023 3:45 PM CDT Telephone Check Up [facility] Oncology and Hematology - [place] [address] [place] [address] [address] [place] [address] Kendall Wills MD [address] [facility] [address] [place] [address] Social History Tobacco Use Types Packs/Day Years Used Date Smoking Tobacco: Never Smokeless Tobacco: Never Alcohol Use Standard Drinks/Week Comments No 0 (1 standard drink = 0.6 oz pur e alcohol) Sex and Gender Information Value Date Recorded Sex Assigned at Not on file Gender Identity Not on file Sexual Orientation Not on file documented as of this encounter Progress Notes * Kendall Wills MD - 01/20/2023 4:41 PM CDT HEMATOLOGY / ONCOLOGY PROGRESS NOTE Patient Identification: Name: Neal Amaro Age: 82 y.o. Sex: male : 1940 DIAGNOSIS Secondary erythrocytosis CURRENT TREATMENT Expectant TREATMENT HISTORY SUBJECTIVE This is a audio visit with patient. He denies any chest pain or shortness of breath. Denies any bleeding and bruising. No other new complaints. Review of system Constitutional: Patient did not mention fevers, sweats, fatigue, malaise, weight loss HEENT: Patient did not mention [...] dizziness Skin: No lumps, bumps or rashes. Objective: Vital signs in last 24 hours: As per nursing note Exam: This is a audio visit. [facility] Labs from January 06 showed hematocrit 52.9 hemoglobin 17.6 total bilirubin 0.8 creatinine 1.3 erythropoietin level 14.3 @IMAGEIMP@ Assessment: Plan: Patient Active Problem List Diagnosis Date Noted Morbid obesity with BMI of 40.0-44.9, adult 04/23/2017 Chronic anemia 03/19/2017 Bruising 03/19/2017 Edema 03/19/2017 Obesity (BMI 35.0-39.9 without comorbidity) 03/19/2017 Secondary erythrocytosis. Likely secondary to obesity and COPD. Erythropoietin level came back normal. JAK2 mutation testing was not performed and we will reorder it. He will continue warfarin. We will start him on phlebotomy of 500 cc on every 3-month basis to keep hematocrit less than 50. I will see him back in 3 months. History of PE and DVT status post back surgery in 2014 and is status post IVC filter placement. He is stable on warfarin. ? TOBACCO COUNSELING He is not a tobacco/nicotine user. 01/20/2023 Kendall Wills MD This encounter was completed via audio-only two way synchronous communication. Patient's identity confirmed yes Patient gave verbal consent to have these services billed to their insurance and expressed understanding that co-insurance and deductible may apply: yes Time spent by the provider delivering the care documented in this encounter 15 minutes. documented in this encounter Plan of Treatment Upcoming Encounters Date Type Department Care Team (Late st Contact Info) Description 01/10/2025 11:30 AM CDT Office Visit [facility] Oncology and Hematology - [place] [address] [facility] [address] [place] [address] Kendall Wills MD [address] [facility] [address] [place] [address] documented as of this encounter Visit Diagnoses Not on filedocumented in this encounter Care Teams Transporter Radiology Relationship Specialty Start Date End Date Liset Haynes MD [address] [place] [address] PCP - General Family Practice 01/06/23 documented as of this encounter
--- OUTSIDE RECORDS SUMMARY | 2024-07-24 00:08 | XMS_ITS | Encounter Summary ---
Author Organization [facility] [employer] [facility] Address [address] [place] [address] Care Team Providers Care Tank Driver Name Role Phone Liset Haynes MD Primary Care Provider [phone] Encounter Details Date Type Department Care Team ([facility] Contact Info) Description 03/02/2023 Orders Only [facility] Oncology and Hematology [place] [address] [place] [address] Kendall Wills MD [facility] [address] [place] [address] Polycythemia, secondary (Primary Dx) Social History [...] Upcoming Encounters Date Type Department Care Team ([facility] Contact Info) Description 01/10/2025 11:30 AM CDT Office Visit [facility] Oncology and Hematology - [place] [address] [place] [address] Kendall Wills MD [address] [place] [address] Scheduled Orders Name Type Priority Associated Diagnoses Orde r Schedule CBC WITH DIFFERENTIAL Lab Routine Polycythemia, secondary Every Two Weeks for 99 Occurrences starting 03/02/2023 until 03/02/2024 documented as of this encounter Visit Diagnoses Diagnosis Polycythemia, secondary- Primary documented in this encounter Care Teams Tank Driver Relationship Specialty Start Date End Date Liset Haynes MD [address] [place] [address] PCP - General Family Practice 01/06/23 documented as of this encounter
--- OUTSIDE RECORDS SUMMARY | 2024-07-24 00:08 | XMS_ITS | Encounter Summary ---
Author Organization [facility])[3] [employer] [facility] Address [address] [place] [address] Care Team Providers Care Shore Worker Name Role Phone Liset Haynes MD Primary Care Provider [phone] Encounter Details Date Type Department Care Team ([facility] Contact Info) Description 05/19/2023 Orders Only [facility] Oncology and Hematology - [place] [address] [place] [address] Kendall Wills MD [address] [place] [address] [employer] [address] [place] [address] Social History Tobacco Use Types Packs/Day [...] [facility] H[facility] - [place] [address] [place] [address] Kendall iWlls MD [address] [place] [address] [employer] [address] [place] [address] documented as of this encounter Procedures Procedure Name Priority Date/Time Associated Diagnosis Comments CBC WITH DIFFERENTIAL Routine 05/18/2023 10:51 AM CDT documented in this encounter Results * CBC WITH DIFFERENTIAL (05/18/2023 10:51 AM CDT) Blood Kendall Wills MD HEMATOLOGY ORDERABLE S documented in this encounter Visit Diagnoses Not on filedocumented in this encounter Care Teams Shore Worker Relationship Specialty Start Date End Date Liset Haynes MD [address] [place] [address] PCP - General Family Practice 01/06/23 documented as of this encounter
--- OUTSIDE RECORDS SUMMARY | 2024-07-24 00:08 | XMS_ITS | Encounter Summary ---
Author Organization [facility] [employer] [facility] Address [address] [place] [address] Care Team Providers Care Roof Slater Name Role Phone Liset Haynes MD Primary Care Provider [phone] Encounter Details Date Type Department Care Team ([facility] Contact Info) Description 01/06/2023 Orders Only [facility] Oncology and Hematology - [place] [address] [place] [address] Kendall Wills MD [address] [place] [address] [employer] [address] [place] [address] Social History Tobacco Use Types Packs/Day [...] Upcoming Encounters Date Type Department Care Team ([facility] Contact Info) Description 01/10/2025 11:30 AM CDT Office Visit [facility] Oncology and Hematology - [place] [address] [place] [address] Kendall Wills MD [facility] [employer] [address] [place] [address] documented as of this encounter Procedures Procedure Name Priority Date/Time Associated Diagnosis Comments COMPREHENSIVE METABOLIC PANEL Routine 01/06/2023 3:52 PM CDT documented in this encounter Results * COMPREHENSIVE METABOLIC PANEL (01/06/2023 3:52 PM CDT) Blood Kendall Wills MD CHEMISTRY ORDERABLES documented in this encounter Visit Diagnoses Not on filedocumented in this encounter Care Teams Roof Slater Relationship Specialty Start Date End Date Liset Haynes MD [address] [place] [address] PCP - General Family Practice 01/06/23 documented as of this encounter
--- OUTSIDE RECORDS SUMMARY | 2024-07-24 00:08 | XMS_ITS | Encounter Summary ---
Author Organization [facility] [employer] [facility] Address [address] [place] [address] Care Team Providers Care Qc Lab Technician Name Role Phone Liset Haynes MD Primary Care Provider [phone] Encounter Details Date Type Department Care Team ([facility] Contact Info) Description 02/02/2023 Orders Only [facility] Oncology and Hematology - [place] [facility] [address] [place] [address] Kendall Wills MD [address] [place], [place] [address] [address] [place] [address] Social History Tobacco Use Types Packs/Day [...] Care Team ([facility] Contact Info) Description 01/10/2025 11:30 AM CDT Office Visit [facility] Oncology and Hematology - [place] [address] [place] [address] Kendall Wills MD [facility] [employer] [address] [place] [address] documented as of this encounter Procedures Procedure Name Priority Date/Time Associated Diagnosis Comments JAK2 MUTATION Routine 01/26/2023 11:14 AM CDT documented in this encounter Results * JAK2 MUTATION (01/26/2023 11:14 AM CDT) Kendall Wills MD BODY FLUIDS AND STOO LS COM documented in this encounter Visit Diagnoses Not on filedocumented in this encounter Care Teams Qc Lab Technician Relationship Specialty Start Date End Date Liset Haynes MD [address] [place] [address] PCP - General Family Practice 01/06/23 documented as of this encounter
--- OUTSIDE RECORDS SUMMARY | 2024-07-24 00:08 | XMS_ITS | Encounter Summary ---
Author Organization [facility] [employer] [facility] Address [address] [place] [address] Care Team Providers Care Prototyper Name Role Phone Liset Haynes MD Primary Care Provider [phone] Encounter Details Date Type Department Care Team ([facility] Contact Info) Description 05/11/2023 Orders Only [facility] Oncology and Hematology - [place] [address] [place] [address] Kendall Wills MD [address] [place], [place] [address] [address] [place] [address] Polycythemia, secondary Social History Tobacco Use [...] Upcoming Encounters Date Type Department Care Team ([facility] Contact Info) Description 01/10/2025 11:30 AM CDT Office Visit [facility] Oncology and Hematology - [place] [address] [place] [address] Kendall Wills MD [address] [employer] [address] [place] [address] documented as of this encounter Visit Diagnoses Diagnosis Polycythemia, secondary documented in this encounter Care Teams Prototyper Relationship Specialty Start Date End Date Liset Haynes MD [address] [place] [address] PCP - General Family Practice 01/06/23 documented as of this encounter
--- OUTSIDE RECORDS SUMMARY | 2024-07-24 00:08 | XMS_ITS | Encounter Summary ---
Author Organization [facility] Address [address] [place] [address] Care Team Providers Care Game Breeding Farm Manager Name Role Phone Christopher Diop MD Primary Care Provider [phone] Encounter Details Date Type Department [facility] Description 06/07/2018 Orders Only [facility] Oncology and Hematology [place] [address] [place] [address] Sisi Martin RN Chronic anemia [...] Upcoming Encounters Date Type Department [facility] Description 01/10/2025 11:30 AM CDT Office Visit [facility] Oncology and Hematology [facility] [address] [place] [address] Kendall Wills MD [address] [facility] [address] [place] [address] documented as of this encounter Procedures Procedure Name Priority Date/Time Associated Diagnosis Comments FERRITIN Routine 06/07/2018 Chronic anemia documented in this encounter Results * FERRITIN (06/07/2018) Blood Kendall Wills MD CHEMISTRY ORDERABLES EXTERNAL LAB documented in this encounter Visit Diagnoses Diagnosis Chronic anemia Anemia, unspecified documented in this encounter Care Teams Game Breeding Farm Manager Relationship Specialty Start Date End Date Christopher Diop MD [address] [place] [address] PCP - General Family Practice 03/19/17 01/05/23 documented as of this encounter
--- OUTSIDE RECORDS SUMMARY | 2024-07-24 00:08 | XMS_ITS | Encounter Summary ---
Author Organization [facility] Address [address] [place] [address] Care Team Providers Care End Polisher Name Role Phone Christopher Diop MD Primary Care Provider [phone] Reason for Visit * Reason Comments Results Encounter Details Date Type Department Care Team (Late st Contact Info) Description 07/06/2017 1:30 PM FILLING TECHNICIAN Office Visit [facility] Oncology and Hematology - [place] [address] [place] [address] Kendall Wills MD [address] [facility] [address] [place] [address] 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 (Primary Dx); Chronic anemia Social History Tobacco Use Types [...] Sign Reading Time Taken Comments Blood Pressure 146/91 07/06/2017 1:26 PM FILLING TECHNICIAN Pulse 70 07/06/2017 1:26 PM FILLING TECHNICIAN Temperature - - Respiratory Rate - - Oxygen Saturation 96% 07/06/2017 1:26 PM FILLING TECHNICIAN Inhaled Oxygen Concentration - - Weight 156.6 kg (345 lb 3.2 oz) 07/06/2017 1:26 PM FILLING TECHNICIAN Height 188 cm (6' 2 ) 07/06/2017 1:26 PM FILLING TECHNICIAN Body Mass Index 44.32 07/06/2017 1:26 PM FILLING TECHNICIAN documented in this encounter Progress Notes * Kendall Wills MD - 07/06/2017 1:51 PM CST HEMATOLOGY / ONCOLOGY PROGRESS NOTE Patient Identification: Name: Neal Amaro Age: 76 y.o. Sex: male : 1940 Subjective: HPI [...] night sweats; no anorexia; no weight loss, complain of some tiredness and fatigue Respiratory: No shortness of [...] no confusion; no seizures Ext no edema Complain of intermittent hematuria Objective: Vital signs in last 24 hours: [...] showed WC 5.7 hemoglobin 13.3 platelet 336,000. Assessment: Plan: Patient Active Problem List Diagnosis [...] Feraheme on June 01 in June 08. Hemoglobin has improved from 12.3-13.3 today. Iron studies are pending. I will repeat CBC with iron studies in 2 months. Patient is going to have EGD on July 11. He denies any melena and hematochezia. He does have intermittent hematuria. 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 Patient took Xarelto until January 2016 but then had relapse of pulmonary embolism in March 2016 and Xarelto was restarted. There are 2 was again discontinued due to recent profound anemia and hematuria when patient was found to have hemoglobin of 5 in the hospital. Patient was discharged home again on Xarelto. At this time patient had intermittent hematuria. CT chest angiogram showed no evidence of pulmonary embolism. 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 Xarelto was reduced to 10 mg dailybut recently has been discontinued and patient was started on pradexa by primary care physician. I will see him back in 2 months. 07/06/2017 Kendall Wills MD ING TECHNICIAN documented in this encounter Plan of Treatment Upcoming Encounters Date Type Department Care Team (Late st Contact Info) Description 01/10/2025 11:30 AM CDT Office Visit [facility] Oncology and Hematology - [place] [address] [facility] [address] [place] [address] Kendall Wills MD [address] [facility] [address] [place] [address] documented as of this encounter Results * IRON, TIBC, AND PERCENT SATURATION (09/08/2017) Blood Kendall Wills MD CHEMISTRY ORDERABLES Performing Organization Address [facility] de Phone Number EXTERNAL LAB * FERRITIN (09/08/2017) Blood Kendall Wills MD CHEMISTRY ORDERABLES Performing Organization Address [facility] de Phone Number EXTERNAL LAB * CBC WITHOUT DIFFERENTIAL (09/08/2017) Blood Kendall Wills MD HEMATOLOGY ORDERABLE S Performing Organization Address [facility] Co de Phone Number EXTERNAL LAB * BASIC METABOLIC PANEL (09/08/2017) Blood Kendall Wills MD CHEMISTRY ORDERABLES Performing Organization Address [facility] de Phone Number EXTERNAL LAB documented in this encounter Visit Diagnoses Diagnosis 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- Primary Chronic anemia Anemia, unspecified documented in this encounter Care Teams End Polisher Relationship Specialty Start Date End Date Christopher Diop MD [address] [place] [address] PCP - General Family Practice 03/19/17 01/05/23 documented as of this encounter
--- OUTSIDE RECORDS SUMMARY | 2024-07-24 00:08 | XMS_ITS | Encounter Summary ---
Author Organization [facility] Address [address] [place] [address] Care Team Providers Care Hand Blocker Name Role Phone Christopher Diop MD Primary Care Provider [phone] Reason for Visit * Reason Comments Follow Up Labs Encounter Details Date Type Department Care Team ([facility] st Contact Info) Description 12/08/2017 9:00 AM CDT Office Visit [facility] Oncology and Hematology - [place] [address] [facility] [address] [place] [address] Kendall Wills MD [address] [facility] [address] [place] [address] Chronic anemia (Primary Dx) Social [...] Sign Reading Time Taken Comments Blood Pressure 169/80 12/08/2017 8:51 AM CDT Pulse 63 12/08/2017 8:51 AM CDT Temperature 36.4 ??C (97.6 ??F) 12/08/2017 8:51 AM CD T Respiratory Rate 18 12/08/2017 8:51 AM CDT Oxygen Saturation 96% 12/08/2017 8:51 AM CDT Inhaled Oxygen Concentration - - Weight 161.9 kg (357 lb) 12/08/2017 8:51 AM CDT Height 188 cm (6' 2 ) 12/08/2017 8:51 AM CDT Body Mass Index 45.84 12/08/2017 8:51 AM CDT documented in this encounter Progress Notes * Kendall Wills MD - 12/08/2017 9:16 AM CDT HEMATOLOGY / ONCOLOGY PROGRESS NOTE Patient [...] Feraheme on June 01 and June 08. Pradexa was discontinued by primary care physician and warfarin was started due to hematuria. Patient denies any further hematuria for last couple of months duration. Review of system Constitutional: No fever; no [...] 5.7 hemoglobin 13.3 platelet 336,000. Labs from [facility] showed WBC 6.2 hemoglobin 13.6 platelet 369,000 creatinine 1.6. Labs from December 02 showed creatinine 1.48, iron 36 iron saturation 12%, ferritin 19, WBC 5.1 hemoglobin 14.1 MCV 81.4 platelet 397,000. Assessment: Plan: Patient Active Problem List Diagnosis [...] ulcer disease with out any active bleeding. I have reviewed the labs that showed improvement in the hemoglobin. Iron level remains low. I will start himon ferrous sulfate 325 mg once a day. I will see him back in 6 months. 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 Patient took Xarelto until January 2016 but then had relapse of pulmonary embolism in March 2016 and Xarelto was restarted. Xarelto was discontinued due torecent profound anemia and hematuria when patient was found to have hemoglobin of 5 in the hospital. Patient was discharged home again on Xarelto. At this time patient had intermittent hematuria. CT chest angiogram showed no evidence of pulmonary embolism. 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 Patient is on now Coumadin 10 mg by mouth apryl ly. PT/INR has been managed by primary care physician. 12/08/2017 Kendall Wills MD documented in this encounter Plan of Treatment Upcoming Encounters Date Type Department Care Team (Late st Contact Info) Description 01/10/2025 11:30 AM CDT Office Visit [facility] Oncology and Hematology [facility] [address] [facility] [address] [place] [address] Kendall Wills MD [address] [facility] [address] [place] [address] documented as of this encounter Results * FERRITIN (06/07/2018) Blood Kendall Wills MD CHEMISTRY ORDERABLES EXTERNAL LAB documented in this encounter Visit Diagnoses Diagnosis Chronic anemia- Primary Anemia, unspecified documented in this encounter Care Teams Hand Blocker Relationship Specialty Start Date End Date Christopher Diop MD [address] [place] [phone] PCP - General Family Practice 03/19/17 01/05/23 documented as of this encounter
--- OUTSIDE RECORDS SUMMARY | 2024-07-24 00:08 | XMS_ITS | Encounter Summary ---
Author Organization [facility] [employer] [facility] Address [address] [place] [address] Care Team Providers Care Brick Dropper Name Role Phone Liset Haynes MD Primary Care Provider Encounter Details Date Type Department Care Team ([facility] Contact Info) Description 06/08/2023 Orders Only [facility] Oncology and Hematology - [place] [address] [place] [address] Kendall Wills MD [address] [place], [place] [address] [address] [place] [address] Polycythemia, secondary Social History Tobacco Use [...] Upcoming Encounters Date Type Department Care Team ([facility] Contact Info) Description 01/10/2025 11:30 AM CDT Office Visit [facility] Oncology and Hematology - [place] [address] [place] [address] [facility] [address] [place] [address] documented as of this encounter Visit Diagnoses Diagnosis Polycythemia, secondary documented in this encounter Care Teams Brick Dropper Relationship Specialty Start Date End Date Liset Haynes MD [address] [place] [address] PCP - General Family Practice 01/06/23 documented as of this encounter
--- OUTSIDE RECORDS SUMMARY | 2024-07-24 00:08 | XMS_ITS | Encounter Summary ---
Author Organization [facility] [employer] [facility] Address [address] [place] [address] Care Team Providers Care Shrimp Cleaner Name Role Phone Liset Haynes MD Primary Care Provider [phone] Encounter Details Date Type Department Care Team ([facility] Contact Info) Description 01/09/2023 Orders Only [facility] Oncology and Hematology - Aureliano Marisela [address] [place] [address] Kendall Wills MD [address] [place] [address] [employer] [address] [place] [address] Social History Tobacco Use Types Packs/Day [...] Upcoming Encounters Date Type Department Care Team ([facility] Contact Info) Description 01/10/2025 11:30 AM CDT Office Visit [facility] Oncology and Hematology - Aureliano Pierre [address] [place] [address] Kendall Wills MD [address] [place] [address] [employer] [address] [place] [address] documented as of this encounter Procedures Procedure Name Priority Date/Time Associated Diagnosis Comments ERYTHROPOIETIN LEVEL Routine 01/06/2023 3:32 PM CDT documented in this encounter Results * ERYTHROPOIETIN LEVEL (01/06/2023 3:32 PM CDT) Blood Kendall Wills MD CHEMISTRY ORDERABLES documented in this encounter Visit Diagnoses Not on filedocumented in this encounter Care Teams Shrimp Cleaner Relationship Specialty Start Date End Date Liset Haynes MD [address] [place] [address] PCP - General Family Practice 01/06/23 documented as of this encounter
--- OUTSIDE RECORDS SUMMARY | 2024-07-24 00:08 | XMS_ITS | Encounter Summary ---
Author Organization [facility] [employer] [facility] Address [address] [place] [address] Care Team Providers Care Stamp Collector Name Role Phone Liset Haynes MD Primary Care Provider Encounter Details Date Type Department Care Team ([facility] Contact Info) Description 03/30/2023 Orders Only [facility] Oncology and Hematology - Aureliano Marisela [address] [place] [address] Kendall Wills MD [facility] [address] [place] [address] Polycythemia, secondary Social History Tobacco Use [...] Encounters Date Type Department Care Team ([facility] Contact Info) Description 01/10/2025 11:30 AM CDT Office Visit [facility] Oncology and Hematology - Aureliano [address] [place] [address] Kendall Wills MD [address] [place] [address] documented as of this encounter Visit Diagnoses Diagnosis Polycythemia, secondary documented in this encounter Care Teams Stamp Collector Relationship Specialty Start Date End Date Liset Haynes MD [address] [place] [address] PCP - General Family Practice 01/06/23 documented as of this encounter
--- OUTSIDE RECORDS SUMMARY | 2024-07-24 00:08 | XMS_ITS | Encounter Summary ---
Author Organization [facility] Address [address] [facility] Attn: Epic Prelude ADT [place] [address] Care Team Providers Care Data Systems Manager Name Role Phone Christopher Diop MD Primary Care Provider [phone] Encounter Details Date Type Department Care Team ([facility] Contact Info) Description 03/08/2019 Orders Only Initial Department [address] [facility] ATTN: [place] [address] Provider, Historical Social History Tobacco Use Types [...] [facility] Oncology and Hematology - Aureliano [address] [place] [address] [facility] [address] [place] [id number] Kendall Wills MD [address] [facility] [address] [place] [address] documented as of this encounter Procedures Procedure Name Priority Date/Time Associated Diagnosis Comments IRON, TIBC, AND PERCENT SATURATION Routine 03/08/2019 8:07 AM CDT CBC WITH DIFFERENTIAL Routine 03/08/2019 8:07 AM CDT BASIC METABOLIC PANEL Routine 03/08/2019 8:07 AM CDT documented in this encounter Results * (ABNORMAL) CBC WITH DIFFERENTIAL (03/08/2019 8:07 AM CDT) WBC 5.3 3.8 - 10.8 Thousand/ uL [facility] RBC 5.52 4.20 - 5.80 Million/u L [facility] HEMOGLOBIN 15.3 13.2 - 17.1 g/dL [facility] . [facility] HEMATOCRIT 46.9 38.5 - 50.0 % [facility] MCV 85.0 80.0 - 100.0 fL [facility] MCH 27.7 27.0 - 33.0 pg [facility] . [facility] MCHC 32.6 32.0 - 36.0 g/dL [facility] RDW 15.7(H) 11.0 - 15.0 % [facility] . [facility] PLATELETS 329 140 - 400 Thousand/ uL [facility] . [facility] MPV 10.5 7.5 - 12.5 fL [facility] NEUTROPHIL ABSOLUTE 2,920 1,500 - 7,800 cells/uL [facility] LYMPHOCYTE ABSOLUTE 1,394 850 - 3,900 cells/uL [facility] MONOCYTE ABSOLUTE 795 200 - 950 cells/uL [facility] EOSINOPHIL ABSOLUTE 148 15 - 500 cells/uL [facility] BASOPHILS ABSOLUTE 42 0 - 200 cells/uL [facility] . [facility] NEUTROPHIL 55.1 % [facility] LYMPHOCYTES 26.3 % [facility] MONOCYTE 15.0 % [facility] . [facility] EOSINOPHILS 2.8 % [facility] . [facility] BASOPHILS 0.8 % [facility] Comment: Test Performed at: [facility] [id number] [place] [address] ??[phone] Ousmane Savage D.O., MPH 03/08/2019 8:07 AM CDT Kendall Wills MD HEMATOLOGY ORDERABLE S [facility] [address] [place] [address] * (ABNORMAL) BASIC METABOLIC PANEL (03/08/2019 8:07 AM CDT) GLUCOSE 70 65 - 99 mg/dL [facility] Comment:Fasting reference in terval BUN 17 7 - 25 mg/dL [facility] CREATININE 1.41(H) 0.70 - 1.18 mg/dL [facility] Comment: For patients >49 years of age, the reference limit for Creatinine is approximately 13% higher for people identified as -Croatian. GFR 48(L) > OR = 60 mL/min/1. 73m2 [facility] GFR, 56(L) > OR = 60 mL/min/1. 73m2 [facility] BUN/CREAT RATIO 12 6 - 22 (calc) [facility] SODIUM 141 135 - 146 mmol/L [facility] POTASSIUM 4.7 3.5 - 5.3 mmol/L [facility] CHLORIDE 105 98 - 110 mmol/L [facility] CO2 32 20 - 32 mmol/L [facility] [employer] [facility] CALCIUM 9.3 8.6 - 10.3 mg/dL [facility] Comment: Test Performed at: [facility] [address] [place], [place] ??[phone] Ousmane Savage D.O., MPH 03/08/2019 8:07 AM CDT Kendall Wills MD CHEMISTRY ORDERABLES [facility] [address] [place] [address] * IRON, TIBC, AND PERCENT SATURATION (03/08/2019 8:07 AM CDT) IRON 66 50 - 180 mcg/dL [facility] TIBC 294 250 - 425 mcg/dL (calc) [facility] IRON % SATURATION 22 20 - 48 % (calc) [facility] FERRITIN 33 24 - 380 ng/mL [facility] Comment: Test Performed at: [facility] [address] [place], [place] ??[phone] Ousmane Savage D.O., MPH 03/08/2019 8:07 AM CDT Kendall Wills MD CHEMISTRY ORDERABLES [facility] [address] [address] documented in this encounter Visit Diagnoses Not on filedocumented in this encounter Care Teams Data Systems Manager Relationship Specialty Start Date End Date Christopher Diop MD [address] [place] [address] PCP - General Family Practice 03/19/17 01/05/23 documented as of this encounter
--- OUTSIDE RECORDS SUMMARY | 2024-07-24 00:08 | XMS_ITS | Encounter Summary ---
Author Organization [facility] Address [address] [place] [address] Care Team Providers Care Devil Dog Name Role Phone Liset Haynes MD Primary Care Provider [phone] Encounter Details Date Type Department Care Team (Late Contact Info) Description 06/18/2023 External Device Data [facility] ABSTRACTION Provider, Abstract [...] Description 01/10/2025 11:30 AM CDT Office Visit [facility] Oncology and Hematology - [place]ureliano [address] [place] [address] Kendall Wills MD [address] [place] [address] documented as of this encounter Visit Diagnoses Not on filedocumented in this encounter Care Teams Devil Dog Relationship Specialty Start Date End Date Liset Haynes MD [address] [phone] PCP - General Family Practice 01/06/23 documented as of this encounter
--- OUTSIDE RECORDS SUMMARY | 2024-07-24 00:08 | XMS_ITS | Encounter Summary ---
Author Organization [facility] [employer] [facility] Address [address] [place] [address] Care Team Providers Care Wire Straightener Name Role Phone Liset Haynes MD Primary Care Provider [phone] Encounter Details Date Type Department Care Team ([facility] Contact Info) Description 04/13/2023 Orders Only [facility] Oncology and Hematology - Aureliano Marisela [address] [place] [address] Kendall Wills MD [facility] [employer] [place] [place] [address] [place] [address] Polycythemia, secondary Social History Tobacco Use [...] Encounters Date Type Department Care Team ([facility] Contact Info) Description 01/10/2025 11:30 AM CDT Office Visit [facility] Oncology and Hematology - Aureliano [address] [place] [address] Kendall Wills MD [address] [employer] [place] [address] [place] [address] documented as of this encounter Visit Diagnoses Diagnosis Polycythemia, secondary documented in this encounter Care Teams Wire Straightener Relationship Specialty Start Date End Date Liset Haynes MD [address] [place] [address] PCP - General Family Practice 01/06/23 documented as of this encounter
--- OUTSIDE RECORDS SUMMARY | 2024-07-24 00:08 | XMS_ITS | Encounter Summary ---
Author Organization [facility] Address [address] [place] [address] Care Team Providers Care Hotel Associate Name Role Phone Christopher Diop MD Primary Care Provider [phone] Reason for Visit * Reason Comments Follow Up Encounter Details Date Type Department Care Team ([facility] st Contact Info) Description 09/08/2017 9:15 AM CLUB STEWARD Office Visit [facility] Oncology and Hematology - Aureliano [address] [place] [address] [facility] [address] [place] [address] Kendall Wills MD [address] [facility] [address] [place] [address] Chronic anemia (Primary Dx); 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 Social History Tobacco Use Types Packs/Day Years [...] Sign Reading Time Taken Comments Blood Pressure 110/61 09/08/2017 9:20 AM CLUB STEWARD Pulse 100 09/08/2017 9:20 AM CLUB STEWARD Temperature 36.3 ??C (97.4 ??F) 09/08/2017 9:20 AM CS T Respiratory Rate 24 09/08/2017 9:20 AM CLUB STEWARD Oxygen Saturation - - Inhaled Oxygen Concentration - - Weight 159.7 kg (352 lb) 09/08/2017 9:20 AM CLUB STEWARD Height 188 cm (6' 2 ) 09/08/2017 9:20 AM CLUB STEWARD Body Mass Index 45.19 09/08/2017 9:20 AM CLUB STEWARD documented in this encounter Progress Notes * Kendall Wills MD - 09/08/2017 10:31 AM CST HEMATOLOGY / ONCOLOGY PROGRESS NOTE [...] 6.2 hemoglobin 13.6 platelet 369,000 creatinine 1.6. Assessment: Plan: Patient Active Problem List Diagnosis [...] in June 08. Hemoglobin has improved from 12.3-13.6 today. Iron studies are pending. I will repeat CBC with iron studies in 3 months. Patient is going to have EGD tomorrow. He denies any further melena and hematochezia. Hematuria has also resolved since you have been taking warfarin. Hypercoagulable state with history of pulmonary embolism [...] vein. Xarelto was reduced to 10 mg daily but was di scontinued and patient was started on pradexa by primary care physician. Now 2 months ago pradexa was discontinued by primary care physician and patient was started on warfarin. He denies any furtherhematuria. He is going to have his PT/INR monitored by . I will see him back in 3 months. 09/08/2017 Kendall Wills MD STEWARD documented in this encounter Plan of Treatment Upcoming Encounters Date Type Department Care Team (Late st Contact Info) Description 01/10/2025 11:30 AM CDT Office Visit [facility] Oncology and Hematology [facility] [address] [facility] [address] [place] [address] Kendall Wills MD [address] [facility] [address] [place] [address] documented as of this encounter Visit Diagnoses Diagnosis Chronic anemia- Primary Anemia, unspecified 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 documented in this encounter Care Teams Hotel Associate Relationship Specialty Start Date End Date Christopher Diop MD [address] [place] [phone] PCP - General Family Practice 03/19/17 01/05/23 documented as of this encounter
--- OUTSIDE RECORDS SUMMARY | 2024-07-24 00:08 | XMS_ITS | Encounter Summary ---
Author Organization [facility] Address [address] [place] [address] Care Team Providers Care Molding Supervisor Name Role Phone Christopher Diop MD Primary Care Provider [phone] Encounter Details Date Type Department Care Team (Late Contact Info) Description 09/08/2017 Orders Only [facility] Oncology and Hematology - Aureliano [address] [place] [address] Sisi Martin RN Chronic anemia [...] AM CDT Office Visit [facility] Oncology and Hematology [facility] [address] [place] [address] Kendall Wills MD [address] [facility] [address] [place] [address] documented as of this encounter Procedures Procedure Name Priority Date/Time Associated Diagnosis Comments IRON, TIBC, AND PERCENT SATURATION Routine 2017 Chronic anemia CBC WITHOUT DIFFERENTIAL Routine 09/08/2017 Chronic anemia FERRITIN Routine 09/08/2017 Chronic anemia BASIC METABOLIC PANEL Routine 09/08/2017 Chronic anemia documented in this encounter Results * BASIC METABOLIC PANEL (09/08/2017) Blood Kendall Wills MD CHEMISTRY ORDERABLES Performing Organization Address [facility] Co de Phone Number EXTERNAL LAB * CBC WITHOUT DIFFERENTIAL (09/08/2017) Blood Kendall Wills MD HEMATOLOGY ORDERABLE S Performing Organization Address [facility] Co de Phone Number EXTERNAL LAB * FERRITIN (09/08/2017) Blood Kendall Wills MD CHEMISTRY ORDERABLES Performing Organization Address [facility] Co de Phone Number EXTERNAL LAB * IRON, TIBC, AND PERCENT SATURATION (09/08/2017) Blood Kendall Wills MD CHEMISTRY ORDERABLES Performing Organization Address [facility] Co de Phone Number EXTERNAL LAB documented in this encounter Visit Diagnoses Diagnosis Chronic anemia Anemia, unspecified documented in this encounter Care Teams Molding Supervisor Relationship Specialty Start Date End Date Christopher Diop MD [address] [place] [address] PCP - General Family Practice 03/19/17 01/05/23 documented as of this encounter
--- OUTSIDE RECORDS SUMMARY | 2024-07-24 00:08 | XMS_ITS | Encounter Summary ---
Author Organization [facility] Address [address] [place] [address] Care Team Providers Care Mainframe Systems Programmer Name Role Phone Liset Haynes MD Primary Care Provider [phone] Encounter Details Date Type Department Care Team (Late Contact Info) Description 06/17/2023 External Device Data STL ABSTRACTION Provider, Abstract [...] 11:30 AM CDT Office Visit [facility] Oncology and Hematology - Aureliano [address] [place] [address] Kendall Wills MD [address] [place] [address] documented as of this encounter Visit Diagnoses Not on filedocumented in this encounter Care Teams Mainframe Systems Programmer Relationship Specialty Start Date End Date Liset Haynes MD [address] [phone] PCP - General Family Practice 01/06/23 documented as of this encounter
--- OUTSIDE RECORDS SUMMARY | 2024-07-24 00:09 | XMS_ITS | Encounter Summary ---
Author Organization [facility] Address [address] [place] [address] Phone Care Team Providers Care Pickling Solution Maker Name Role Phone Liset Haynes MD Primary Care Provider [phone] Reason for Visit * Reason Onset Date Comments PT/INR pre procedure Endoflip 12/09/2023 Encounter Details Date Type Department Care Team (Late st Contact Info) Description 12/09/2023 Documentation [facility] Gastroenterology [address] [place] [address] 12th [place] [address] [place] [address] Lucrecia Soares LPN PT/INR pre procedure Endoflip Social History Tobacco Use Types Packs/Day Years Used Date Smoking Tobacco: Former Smokeless Tobacco: Never Alcohol Use Standard Drinks/Week Comments No 0 (1 standard drink = 0.6 oz pur e alcohol) AUDIT-C Answer Date Recorded Q1: How often do you have a drink containing alc ohol? Monthly or less 09/17/2023 Q2: How many drinks containi ng alcohol do you have on a typical day when you are drinking? 1 or 2 09/17/2023 Q3: How often do you have si x or more drinks on one occasion? Never 09/17/2023 Personal Safety Answer Date Recorded Have you ever been in or are you currently in a harmful physical or emotional relationship or is someone making you feel afraid or unsafe? Denies 09/01/2023 Sex and Gender Information Value Date Recorded Sex Assigned at Not on file Legal Sex Male 3:18 AM AIRFRAME AND POWERPLANT TECHNICIAN Gender Identity Not on file Sexual Orientation Not on file documented as of this encounter Progress Notes * Lucrecia Soares LPN - 12/09/2023 3:23 PM CDT Ordered PT/INR for pt, on warfarin at this time. documented in this encounter Plan of Treatment Not on file documented as of this encounter Results * Protime-INR (01/22/2024 11:43 AM CDT) PT 11.8 10.3 - 13.7 sec INR 1.04 0.90 - 1.20 [facility] Comment: Interpretive data Oral anticoagulant therapeutic ranges: Venous thromboembolism prophylaxis or treatment: 2.0-3.0 CARDIOLOGY Standard range: 2.0-3.0 High-intensity range: 2.5-3.5 Refer to indication-specific guidelines for appropriate target ranges for prosthetic heart valve replacement. Current interpretive data was last revised on 2019. Blood 01/22/2024 11:4 3 AM CDT 01/22/2024 12:07 PM CDT us Taras Soriano MD LAB BLOOD ORDERABLES Final Result [facility] [address] [place] [address] documented in this encounter Visit Diagnoses Diagnosis Pre-procedure lab exam- Primary Pre-procedural laboratory examination Atrial fib/flutter, transient (HCC) documented in this encounter Care Teams Pickling Solution Maker Relationship Specialty Start Date End Date Liset Haynes MD PCP - General Family Medicine 08/05/22 documented as of this encounter
--- OUTSIDE RECORDS SUMMARY | 2024-07-24 00:09 | XMS_ITS | Encounter Summary ---
Author Organization [facility] Address [address] [place] [address] Care Team Providers Care Kelly Machine Operator Name Role Phone Christopher Diop MD Primary Care Provider [phone] Reason for Visit * Reason Comments Follow Up Encounter Details Date Type Department Care Team ([facility] st Contact Info) Description 05/25/2017 1:00 PM CDT Office Visit [facility] Oncology and Hematology - Aureliano [address] [facility] [address] [place] [address] Kendall Wills MD [address] [facility] [address] [place] [address] Other chronic pulmonary embolism without [...] Sign Reading Time Taken Comments Blood Pressure 122/76 05/25/2017 1:02 PM CDT Pulse 90 05/25/2017 1:02 PM CDT Temperature 36.4 ??C (97.5 ??F) 05/25/2017 1:02 PM CD T Respiratory Rate - - Oxygen Saturation - - Inhaled Oxygen Concentration - - Weight 154.4 kg (340 lb 6.4 oz) 05/25/2017 1:02 PM CDT Height 188 cm (6' 2 ) 05/25/2017 1:02 PM CDT Body Mass Index 43.7 05/25/2017 1:02 PM CDT documented in this encounter Progress Notes * Kendall Wills MD - 05/25/2017 3:12 PM CDT HEMATOLOGY / ONCOLOGY PROGRESS NOTE [...] studies were performed on May 18, 2017. Review of system Constitutional: No fever; no [...] iron saturation 8% and serum iron 25. Assessment: Plan: Patient Active Problem List Diagnosis [...] bleeding.Patient received Feraheme on March 26 and .Hemoglobin dropped to 12.3. Iron levels are also down. I will give another round of Feraheme infusion. I will see him back in 6 weeks. Hypercoagulable state with history of pulmonary embolism [...] involving the left peroneal and gastrocnemius vein. I will reduce dose of Xarelto 10 mg by mouth daily for prevention as patient is also having intermittent hematuria. Follow-up in 6 weeks. 05/25/2017 Kendall Wills MD documented in this encounter Plan of Treatment Upcoming Encounters Date Type Department Care Team (Late st Contact Info) Description 01/10/2025 11:30 AM CDT Office Visit [facility] Oncology and Hematology - Aureliano [address] [facility] [address] [place] [address] Kendall Wills MD [address] [facility] [address] [place] [address] documented as of this encounter Results * FERRITIN (07/07/2017) Blood Kendall Wills MD CHEMISTRY ORDERABLES Performing Organization Address City/[facility]/ZIP Co de Phone Number EXTERNAL LAB * (ABNORMAL) IRON, TIBC, AND PERCENT SATURATION (07/07/2017) Blood Kendall Wills MD CHEMISTRY ORDERABLES Performing Organization Address City/[facility]/ZIP Co de Phone Number EXTERNAL LAB * (ABNORMAL) CBC WITH DIFFERENTIAL (07/06/2017) Blood Kendall Wills MD HEMATOLOGY ORDERABLE S Performing Organization Address [facility] Co de Phone Number EXTERNAL LAB documented in this encounter Visit Diagnoses Diagnosis 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
--- OUTSIDE RECORDS SUMMARY | 2024-07-24 00:09 | XMS_ITS | Continuity of Care Document ---
Author Organization [facility] Address [address] [place] [address] Phone Care Team Providers Care Hse Manager Name Role Phone Julisa Mcintyre Unavailable Unavailable Procedures Procedure Date Post-op Follow-up Visit After Cataract Laser Surgery Eye Exam Established Pt Office/outpatient Visit, Est Office/outpatient Visit, Est Post-op Follow-up Visit Post-op Follow-up Visit Post-op Follow-up Visit Remove Cataract, Insert Lens PreOp Assessment Performed Post-op Follow-up Visit Echo Exam Of Eye-Professional 9 Post-op Follow-up Visit Remove Cataract, Insert Lens PreOp Assessment Performed Office Consultation Echo Exam Of Eye Advance Directives Directive Yes / No Effective Date File Name No Information Encounters Encounter Description Practice Location Reason(s) For Visit Diagnoses Date Provider Providers Copied on Encounter [facility], [address], [place], [place], [id number], [place] tel:[phone] [facility] No Information 0 Miguelina Egan. [address], [place], [address], [place]. tel:[phone] [facility], [address], [place], [place], [id number], [place] tel:[phone] [facility] No Information 0 Miguelina Rodriguezn. [address] , [address], [place], [place], [facility], [place]. tel:[phone] [facility], [address], [place], [place], [id number], [place] tel:[phone] [facility] No Information 0 Miguelina Julisa. [address], [place], [facility], [place]. tel:[phone] Office/outpati ent Visit, [facility], [address] [place] [address] [address], [place], [place], [id number], tel:[phone] [facility] No Information 0 Miguelina Rodriguezn. [address], [place], [facility], [place]. tel:[phone] Office/outpati ent Visit, [facility], [address], [place], [place], [id number], [place] tel:[phone] [facility] No Information Dec-2 9-200 9 Miguelina Julisa. [address] , [address], [place], [facility], [place]. tel:[phone] [facility], [address], [place], [place], [id number], [place] tel:[phone] [facility] No Information Oct-2 7-200 9 Miguelina Julisa. [address], [place], [facility], [place]. tel:[phone] [facility], [address], [place], [place], [id number], [place] tel:[phone] [facility] No Information Oct-0 6-200 9 Mcintyre Julisa. [address], [place], [facility], [place]. tel:[phone] [facility], [address], [place], [place], [id number], [place] tel:[phone] [facility] No Information Sep-2 4-200 9 Mcintyre Julisa. [address], [place], [facility], [place]. tel:[phone] [facility], [address], [place], [place], [id number], [place] tel:[phone] [facility] No Information Sep-2 3-200 9 Mcintyre Julisa. [address], [place], [facility], [place]. tel:[phone] [facility], [address] [place] [address] [address], [place], [place], [id number], [place] tel:[phone] [facility] No Information Sep-1 5-200 9 Miguelina Rodriguezn. [address], [place], [facility], [place]. tel:[phone] [facility], [address], [place], [place], [id number], [place] tel:[phone] [facility] No Information Sep-1 0-200 9 Miguelina Julisa. [address], [place], [facility], [place]. tel:[phone] [facility], [address], [place], [place], [id number], [place] tel:[phone] [facility] No Information Sep-0 9-200 9 Miguelina Julisa. [address], [place], [facility], [place]. tel:[phone] Office Consultation [facility], [address], [place], [place], [id number], [place] tel:[phone] [facility] No Information 9 Miguelina Egan. [address], [place], [address], [place]. tel:[phone] Family History Family Member Type Diagnosis Age At Onset No Information Payers Payer name Insurance type Covered constitution party ID Authoriza tion(s) No Information Social History Type Description Quantity Date Captured Comments Sex Male Smoking Status No Information Chief Complaint And Reason For Visit No Information Reason For Referral Reason For Referral No Information History Of Present Illness Encounter Date Complaint History Of Prese nt Illness No Information Functional Status Date Functional Assessmen t No Information Instructions Date Instruction Additional Infor mation No Information Assessments Type Assessment Date No Information Patient Care Teams Name Effective Dates (start - stop) Status Members No Information
--- OUTSIDE RECORDS SUMMARY | 2024-07-24 00:09 | XMS_ITS | Encounter Summary ---
Author Organization [facility] Healthcare Address [address] [place] [address] Care Team Providers Care Parcel Post Weigher Name Role Phone Liset Haynes MD Primary Care Provider [phone] Reason for Visit * Auth/Cert (Routine) Specialty Diagnoses / Procedures Referred By Roly reinoso Referred To Contact Diagnoses Dysphagia, unspecified type Dysphagia, unspecified type [R13.10] Procedures [place] ESOPHAGOGASTRODUODENOSCOPY TRANSORAL DIAGNOSTIC EGD w/Endo Flip Referral ID Status Reason Start Date Expiration Date Visits Re quested Visits Authorized [id number] 1 1 Encounter Details Date Type Department Care Team (Latest Contact Info) Description 01/22/2024 11:51 AM CDT - 01/22/2024 2:55 PM CDT Hospital Encounter [facility] [address] [place] [address] Taras Soriano MD [address] [place] [address] Discharge Disposition: Discharge to home or self care Social History Tobacco Use Types Packs/Day Years Used Date Smoking Tobacco: Former Smokeless Tobacco: Never Alcohol Use Standard Drinks/Week Comments No 0 (1 standard drink = 0.6 oz pur e alcohol) AUDIT-C Answer Date Recorded Q1: How often do you have a drink containing alc ohol? Monthly or less 01/22/2024 Q2: How many drinks containi ng alcohol do you have on a typical day when you are drinking? 1 or 2 01/22/2024 Q3: How often do you have si x or more drinks on one occasion? Never 01/22/2024 Personal Safety Answer Date Recorded Have you ever been in or are you currently in a harmful physical or emotional relationship or is someone making you feel afraid or unsafe? Denies 01/22/2024 Sex and Gender Information Value Date Recorded Sex Assigned at Not on file Legal Sex Male 3:18 AM [employer] Gender Identity Not on file Sexual Orientation Not on file documented as of this encounter Last Filed Vital Signs Vital Sign Reading Time Taken Comments Blood Pressure 146/73 01/22/2024 2:29 PM CDT Pulse 54 01/22/2024 2:29 PM CDT Temperature 36.6 ??C (97.8 ??F) 01/22/2024 1 2:49 PM CDT Respiratory Rate 18 01/22/2024 2:29 PM CDT Oxygen Saturation 99% 01/22/2024 2:29 PM CDT Inhaled Oxygen Concentration - - Weight 154.5 kg (340 lb 9.8 oz) 024 12:49 PM CDT Height 188 cm (6' 2.02 ) 01/22/2024 12: 49 PM CDT Body Mass Index 43.71 01/22/2024 12:49 PM CDT documented in this encounter Medications at Time of Discharge acetaminophen (TYLENOL) 325 mg tabletIndication s:Pain Take 2 tablets (650 mg total) by mouth every 6 (six) hours as needed for pain 30 tablet 07/29/2023 albuterol HFA (PROVENTIL HFA,VENTOLIN HFA,PROAIR HFA) 90 mcg/actuation inhaler INHALE TWO PUFFS BY MOUTH EVERY 2-4 HOURS NEEDED FOR SHORTNESS OF BREATH OR WHEEZING 05/26/2023 atorvastatin (LIPITOR) 20 mg tablet Take 1 tablet (20 mg total) by mouth daily 07/11/2023 azelastine (ASTELIN) 137 mcg (0.1 %) nasal spray ADMINISTER 2 SPRAYS INTO EACH NOSTRIL EVERY 12 HOURS 06/26/2023 baclofen (LIORESAL) 10 mg tablet take 1 tablet by oral route 3 times every day 0 0 04/21/2016 BD Blanca 2nd Gen Pen Needle 32 gauge x 5/32 needle DIRECTED FOUR TIMES DAILY WITH INSULIN 08/21/2023 doxycycline 100 mg tablet Take 1 tablet/capsule (100 mg total) by mouth every 12 (twelve) hours 04/25/2023 Farxiga 5 mg tablet Take by mouth daily flecainide (TAMBOCOR) 50 mg tablet TAKE 1 TABLET BY MOUTH TWICE A DAY 180 tablet 2 12/17/2023 insulin glargine (LANTUS SOLOSTAR) 100 unit/mL (3 mL) insulin pen inject by subcutaneous route as per insulin protocol 0 Syringe 0 04/21/2016 insulin lispro (HumaLOG, ADMELOG) 100 unit/mL pen for injection Inject 8-10 Units under the skin 3 (three) times a day with meals 05/12/2023 levothyroxine (SYNTHROID) 50 mcg tablet Take 1 tablet (50 mcg total) by mouth daily 08/08/2019 metoprolol (LOPRESSOR) 25 mg tablet 1/2 tab bid 90 3 04/21/2016 omeprazole (PriLOSEC) 20 mg capsule Take 1 capsule (20 mg total) by mouth daily 04/25/2023 OneTouch Ultra Test strip USE TO TEST BLOOD SUGAR THREE TIMES DAILY 04/20/2023 oxyCODONE (ROXICODONE) 5 mg immediate release tabletIndication s:Pain Take 1 tablet (5 mg total) by mouth every 4 (four) hours as needed for pain 5 tablet 07/29/2023 pregabalin (LYRICA) 150 mg capsule Take 1 capsule (150 mg total) by mouth 3 (three) times a day 05/13/2023 senna-docusate (PERICOLACE) 8.6-50 mgIndications:co nstipation Take 1 tablet by mouth 2 (two) times a day 28 tablet 07/29/2023 tamsulosin (FLOMAX) 0.4 mg capsule,extended release 24hr take 1 capsule by oral route every day 1/2 hour following the same meal each day 0 0 04/21/2016 traMADoL (ULTRAM) 50 mg tablet Take 1 tablet (50 mg total) by mouth every 6 (six) hours as needed for pain Trelegy Ellipta 200-62.5-25 mcg inhaler Inhale 1 puff daily 06/19/2023 triamcinolone (KENALOG) 0.1 % cream Apply topically 2 (two) times a day 05/26/2023 warfarin (COUMADIN) 5 mg tablet Take 1 tablet (5 mg total) by mouth daily documented as of this encounter Discharge Disposition Disposition Code Departure Means Destination Comment s Discharge to home or self care Car documented in this encounter H&P Notes * Taras Soriano MD - 01/22/2024 12:52 PM CDT Pre Endoscopy History and Physical Neal Amaro is a 83 y.o. male who is here for Procedure(s): EGD w/Endo Flip The indication(s) for the procedure(s): intermittent dysphagia, manometry with elevated LES post swallow residual pressures. Past Medical History: Diagnosis Date Arthritis Atrial fibrillation (CMS/HCC) (HCC) Dysphagia GERD (gastroesophageal reflux disease) Hyperlipidemia Hypertension Hypothyroidism Type 2 diabetes mellitus (HCC) Past Surgical History: Procedure Laterality Date ANKLE SURGERY BACK SURGERY x2 COLONOSCOPY REPLACEMENT TOTAL KNEE ONCOLOGIC Bilateral ROTATOR CUFF REPAIR Right SPLENECTOMY, TOTAL UPPER GASTROINTESTINAL ENDOSCOPY WHIPPLE PROCEDURE W/ LAPAROSCOPY Social History Tobacco Use Smoking status: Former Smokeless tobacco: Never Substance and Sexual Activity Drug use: Never Sexual activity: Never Alcohol Use: Not At Risk (01/22/2024) AUDIT-C Frequency of Alcohol Consumption: Monthly or less Average Number of Drinks: 1 or 2 Frequency of Binge Drinking: Never Family History Family history unknown: Yes Allergies Allergen Reactions Adhesive Tape-Silicones Flushing (skin) Prior to Admission medications Medication Sig Start Date End Date Taking? Authorizing Provider acetaminophen (TYLENOL) 325 mg tablet Take 2 tablets (650 mg total) by mouth every 6 (six) hours asneeded for pain 07/29/23 Yes Vianney Orr NP atorvastatin (LIPITOR) 20 mg tablet Take 1 tablet (20 mg total) by mouth daily 07/11/23 Yes Dee Barros MD baclofen (LIORESAL) 10 mg tablet take 1 tablet by oral route 3 times every day 04/21/16 Yes Chapo Lo DO doxycycline 100 mg tablet Take 1 tablet/capsule (100 mg total) by mouth every 12 (twelve) hours 04/25/23 Yes Dee Barros MD Farxiga 5 mg tablet Take by mouth daily Yes Provider, Historical, MD flecainide (TAMBOCOR) 50 mg tablet TAKE 1 TABLET BY MOUTH TWICE A DAY 12/17/23 Yes Collin Rojas MD insulin glargine (LANTUS SOLOSTAR) 100 unit/mL (3 mL) insulin pen inject by subcutaneous route as per insulin protocol Patient taking differently: Inject 44 Units under the skin nightly 04/21/16 Yes Chapo Lo, insulin lispro (HumaLOG, ADMELOG) 100 unit/mL pen for injection Inject 8-10 Units under the skin 3 (three) times a day with meals 05/12/23 Yes Provider, MD Dee metoprolol (LOPRESSOR) 25 mg tablet 1/2 tab bid 04/21/16 Yes Chapo Lo DO oxyCODONE (ROXICODONE) 5 mg immediate release tablet Take 1 tablet (5 mg total) by mouth every 4 (four) hours as needed for pain 07/29/23 Yes Son Chowdhury, pregabalin (LYRICA) 150 mg capsule Take 1 capsule (150 mg total) by mouth 3 (three) times a day 05/13/23 Yes Provider, MD Dee senna-docusate (PERICOLACE) 8.6-50 mg Take 1 tablet by mouth 2 (two) times a day 07/29/23 Yes Vianney Orr, RASHAAD tamsulosin (FLOMAX) 0.4 mg capsule,extended release 24hr take 1 capsule by oral route every day 1/2hour following the same meal each day Patient taking differently: Take 2 capsules (0.8 mg total) by mouth daily 04/21/16 Yes Chapo Lo, traMADoL (ULTRAM) 50 mg tablet Take 1 tablet (50 mg total) by mouth every 6 (six) hours as needed for pain Yes Provider, MD Gina Price Ellipta 200-62.5-25 mcg inhaler Inhale 1 puff daily 06/19/23 Yes Provider, MD Dee warfarin (COUMADIN) 5 mg tablet Take 1 tablet (5 mg total) by mouth daily Yes Provider, MD Dee albuterol HFA (PROVENTIL HFA,VENTOLIN HFA,PROAIR HFA) 90 mcg/actuation inhaler INHALE TWO PUFFS BY MOUTH EVERY 2-4 HOURS NEEDED FOR SHORTNESS OF BREATH OR WHEEZING 05/26/23 Dee Barros MD azelastine (ASTELIN) 137 mcg (0.1 %) nasal spray ADMINISTER 2 SPRAYS INTO EACH NOSTRIL EVERY 12 HOURS 06/26/23 Dee Barros MD BD Blanca 2nd Gen Pen Needle 32 gauge x 5/32 needle DIRECTED FOUR TIMES DAILY WITH INSULIN 08/21/23 Dee Barros MD levETIRAcetam (KEPPRA) 500 mg tablet Take 1 tablet (500 mg total) by mouth 2 (two) times a day for 11 doses Patient not taking: Reported on 10/01/2023 07/29/23 08/04/23 Vianney Orr, RASHAAD levothyroxine (SYNTHROID) 50 mcg tablet Take 1 tablet (50 mcg total) by mouth daily 08/08/19 Dee Barros MD omeprazole (PriLOSEC) 20 mg capsule Take 1 capsule (20 mg total) by mouth daily 04/25/23 Dee Barros MD OneTouch Ultra Test strip USE TO TEST BLOOD SUGAR THREE TIMES DAILY 04/20/23 Dee Barros MD triamcinolone (KENALOG) 0.1 % cream Apply topically 2 (two) times a day 05/26/23 Dee Barros MD Review of Systems A pertinent, focused review of systems was completed and negative, except as noted above. OBJECTIVE: Vitals: Vitals: 01/22/24 1249 BP: 162/62 Pulse: 53 Resp: 16 Temp: 36.6 ??C (97.8 ??F) TempSrc: Temporal SpO2: 100% Weight: (!) 154.5 kg (340 lb 9.8 oz) Height: 188 cm (6' 2.02 ) Physical Exam: Airway: No significant abnormality. Cardiac: No significant abnormality. Pulmonary: No significant abnormality. Neurological: No significant abnormality. Gastrointestinal: No significant abnormality. ASA Score: per Anesthesia Sedation/Anesthesia Plan: per Anesthesia The risks and complications of the procedure have been explained to the patient. Informed consent was signed. Impression and plan: Will proceed with the planned procedure for the reasons stated above. documented in this encounter Procedure Notes * Taras Soriano MD - 01/22/2024 1:18 PM CDTAssociated Order(s): EGD ENDOSCOPY LAB Patient Name: Neal Amaro Procedure Date: 01/22/2024 1:18 PM Admit Type: Outpatient Room: [facility] Date of : 1940 Instrument Name: [id number] Gender: Male Note Status: Finalized Procedure: Upper GI endoscopy Indications: Dysphagia of an intermittent frequency, manometry with elevated LES post swallow residual pressures Providers: Quan Soriano M.D. Referring MD: Leora Rosas M.D., Liset Haynes M.D. Medicines: Monitored Anesthesia Care Complications: No immediate complications. Estimated Blood Loss: Estimated blood loss was minimal. Procedure: Pre-Anesthesia Assessment: - Immediately prior to administration of medications, the patient was re-assessed for adequacy to receive sedatives. The benefits, risks, and alternatives to the procedure and sedation were discussed and informed consent was obtained. The scope was passed under direct vision. The Endoscope was introduced through the mouth, and advanced to the second part of duodenum. The upper GI endoscopy was accomplished without difficulty. The patient tolerated the procedure well. Findings: The esophageal mucosa was normal. A hypertonic and intermittently puckered lower esophageal sphincter was found. An endo FLIP catheter was placed. The distensibility index was 0.8, the narrowest lumen diameter at the EGJ was 9.8 mm, and the intraballoon pressure was 85 mmHg with 60mL volumetric distension. No organized contractility was seen in the esophageal body. 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 Area was successfully injected with 100 units botulinum toxin. The stomach was normal. There was a large duodenal diverticulum. Otherwise the examined duodenum was normal. 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 This may be related to opioid medications. Injected with botulinum toxin. - Normal stomach. - Duodenal diverticulum, otherwise normal examined duodenum. Recommendation: - Observe patient's clinical course following today's procedure with botulinum toxin injection. If there is response, consider repeat injection when symptoms recur. Electronically signed by Quan Soriano MD Quan Soriano M.D. 01/22/2024 1:57:37 PM Number of Addenda: 0 Note Initiated On: 01/22/2024 1:18 PM Scope In: Scope Out: documented in this encounter Plan of Treatment Not on file documented as of this encounter Procedures Procedure Name Priority Date/Time Associated Diagnosis Comments ENDO ADD ON ESOPHAGOGASTRODUODENOSCOPY INJECTION SUBMUCOSAL 01/22/2024 1:33 PM CDT Dysphagia, unspecified type ESOPHAGEAL BALLOON DISTENTIO N STUDY DIAGNOSTIC WITH PROVOCATION 01/22/2024 1:33 PM CDT Dysphagia, unspecified type POCT GLUCOSE DEVICE Routine 01/22/2024 1:20 PM CDT EGD 01/22/2024 1:18 PM CDT documented in this encounter Results * POCT glucose (01/22/2024 1:20 PM CDT) Glucose, POC 95 70 - 140 mg/dL Comment: For Glucose values <35 mg/dl when Hematocrit is >60 mg/dl,the test may not accurately detect significant hypoglycemia,and testing in the Laboratory should be considered if clinically indicated. Blood 01/22/2024 1:20 PM CDT 01/22/2024 1:20 PM CDT us Taras Soriano MD LAB POCT ORDERABLES - DEVICE Final Result [facility] [address] Department [place] [address] * EGD (01/22/2024 1:18 PM CDT) Anatomical Region Laterality Modality Other Narrative Procedure Note Taras Soriano MD - 01/22/2024 1:18 PM CDT ENDOSCOPY LAB Patient Name: Neal Amaro Procedure Date: 01/22/2024 1:18 PM Admit Type: Outpatient Room: [facility] Date of : 1940 Instrument Name: [id number] Gender: Male Note Status: Finalized Procedure: Upper GI endoscopy Indications: Dysphagia of an intermittent frequency, manometrywith elevated LES post swallow residual pressures Providers: Quan Soriano M.D. Referring MD: Leora Rosas M.D., Liset Haynes M.D. Medicines: Monitored Anesthesia Care Complications: No immediate complications. Estimated Blood Loss: Estimated blood loss was minimal. Procedure: Pre-Anesthesia Assessment: - Immediately prior to administration ofmedications, the patient was re-assessed for adequacy to receive sedatives. The benefits, risks, and alternatives to theprocedure and sedation were discussed and informed consentwas obtained. The scope was passed under direct vision. The Endoscope was introduced through the mouth, and advanced to the second part of duodenum. The upperGI endoscopy was accomplished without difficulty. The patient tolerated the procedure well. Findings: The esophageal mucosa was normal. A hypertonic and intermittently puckered lower esophageal sphincter was found. An endo FLIP catheterwas placed. The distensibility index was 0.8, the narrowest lumendiameter at the EGJ was 9.8 mm, and the intraballoon pressure was 85 mmHg with 60mL volumetric distension. No organized contractility was seen inthe esophageal body. These findings suggest a spastic LES gita toachalasia, potentially related to opioid medications. Area was successfully injected with 100 units botulinum toxin. The stomach was normal. There was a large duodenal diverticulum. Otherwise the examinedduodenum was normal. 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 This may be related to opioid medications. Injected with botulinum toxin. - Normal stomach. - Duodenal diverticulum, otherwise normal examined duodenum. Recommendation: - Observe patient's clinical course followingtoday's procedure with botulinum toxin injection. If thereis response, consider repeat injection when symptoms recur. Electronically signed by Quan Soriano MD Quan Soriano M.D. 01/22/2024 1:57:37 PM Number of Addenda: 0 Note Initiated On: 01/22/2024 1:18 PM Scope In: Scope Out: Taras Soriano MD ENDOSCOPY PROCEDURES Final Result documented in this encounter Visit Diagnoses Diagnosis Dysphagia- Primary documented in this encounter Admitting Diagnoses Diagnosis Dysphagia documented in this encounter Administered Medications Inactive Administered Medications - up to 3 most recent administrations Medication Order MAR Action Action Date Dose Rate Site ondansetron (ZOFRAN) injection 4 mg 4 mg, intravenous, Administer over 2 Minutes, Every 6 hours PRN, nausea, vomiting, Starting on Thu01/22/24 at 1234, Pre-Procedure (GI) sodium chloride 0.9% flush 0.5-20 mL 0.5-20 mL, intra-catheter, As needed, line care, Starting on Thu01/22/24 at 1234, Pre-Procedure (GI), Flush volume based on line type and size. Flush before and after each use. , Indications: FlushingIndications:Flushin g sodium chloride 0.9% infusion 30 mL/hr, intravenous, Continuous, Starting on Thu01/22/24 at 1315, Pre-Procedure (GI) Rate/Dose Verify 01/22/2024 1:32 PM CDT 30 mL/hr New Bag 01/22/2024 1:22 PM CDT 30 mL/hr 30 mL/hr documented in this encounter Historical Medications * This list may reflect changes made after this encounter. warfarin (COUMADIN) 5 mg tablet Take 1 tablet (5 mg total) by mouth daily added in this encounter Active and Recently Administered Medications Times are shown in CDT. Continuous Medication Order 01/20/2024 01/21/2024 01/22/2024 sodium chloride 0.9% infusion 30 mL/hr, intravenous, Continuous, Starting on Thu01/22/24 at 1315, Pre-Procedure (GI) 1322 (New Bag - Prov ider: Carlota Platt RN)1332 (Rate/Dose Verify - Provider: Moses Fontenot CRNA)1354 (Stopped - Provider: Moses Fontenot CRNA) PRN Medication Order 01/20/2024 01/21/2024 01/22/2024 onabotulinumtoxin A (BOTOX) injection (CANCELED) As needed, Starting on Thu01/22/24 at 1350, Intra-Op 1350 (Given - Provid er: Taras Soriano MD - Comment: injected into lower esophaeal sphincter) ondansetron (ZOFRAN) injection 4 mg 4 mg, intravenous, Administer over 2 Minutes, Every 6 hours PRN, nausea, vomiting, Starting on Thu01/22/24 at 1234, Pre-Procedure (GI) ondansetron (ZOFRAN) injection 4 mg 4 mg, intravenous, Administer over 2 Minutes, Every 30 min PRN, nausea, vomiting, Starting on Thu01/22/24 at 1352, For 2 doses, Recovery (GI), Indications: Nausea and Vomiting sodium chloride 0.9% flush 0.5-20 mL 0.5-20 mL, intra-catheter, As needed, line care, Starting on Thu01/22/24 at 1234, Pre-Procedure (GI), Flush volume based on line type and size. Flush before and after each use. , Indications: Flushing documented in this encounter Orders Medications Ordered That Dell ht Not Have Been Administered Count Last Ordered Date First Ordered Date onabotulinumtoxin A (BOTOX) injection 1 ondansetron (ZOFRAN) injection 4 mg 2 01/21 sodium chloride 0.9% flush 0.5-20 mL 1 01/02 Discharge Count Last Ordered Date First Orde red Date DISCHARGE PATIENT 1 01/22/2024 documented in this encounter Care Teams Parcel Post Weigher Relationship Specialty Start Date End Date Liset Haynes MD PCP - General Family Medicine 08/05/22 documented as of this encounter
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
--- OUTSIDE RECORDS SUMMARY | 2024-07-24 00:09 | XMS_ITS | Encounter Summary ---
Author Organization [facility] Healthcare Address [address] [place] [address] Care Team Providers Care Coffee Shop Attendant Name Role Phone Liset Haynes MD Primary Care Provider [phone] Reason for Visit * Auth/Cert (Routine) Specialty Diagnoses / Procedures Referred By Roly reinoso Referred To Contact Diagnoses Dysphagia, unspecified type Dysphagia, unspecified type [R13.10] Procedures [place] ESOPHAGOGASTRODUODENOSCOPY TRANSORAL DIAGNOSTIC EGD w/Endo Flip Referral ID Status Reason Start Date Expiration Date Visits Re quested Visits Authorized [id number] 1 1 Encounter Details Date Type Department Care Team ([facility] st Contact Info) Description 01/22/2024 1:32 PM CDT Anesthesia Event [facility] [address] [place] [id number] Kam Fuller DO [address] [place] [address] Carlota Browning MD [address] [facility] [place] [address] Anesthesia Record Procedure Summary Procedure Name Responsible Anesthesiologist Anesthesia Start Time Anesthesia Stop Time ESOPHAGEAL BALLOON DISTENTION STUDY DIAGNOSTIC WITH PROVOCATION Kam Fuller DO 01/22/24 1332 01/22/24 1358 Events Date Time Event Comment 01/22/2024 1308 1332 An Start 1332 An Start Data 1333 In Room 1335 Patient Positioned Laterally 1335 Bite Block Placed 1336 An Induction The patient was reevaluated immediately before moderate or deep sedation use and before anesthesia induction. 1337 Anesthesia Ready 1338 Proc Start 1351 Proc Fin 1354 Out of Room 1354 an stop data 1356 Handoff to RN I completed my handoff to the receiving nurse during which we: 1. Patient identified 2. Responsible provider identified 3. Pertinent medical history reviewed 4. Procedure type and surgical course discussed 5. Intraoperative anesthetic management and any significant issues discussed 6. Expectations and concerns for postop period discussed 7. Questions solicited from receiving nurse 8. Patient disposition at the time of handoff: No value filed. 1358 An Stop Meds Name Total lidocaine (cardiac) syringe 2 % 100 mg propofol 90 mg etomidate 14 mg ketamine 100 mg/10 mL (10 mg/mL) in NS 2 0 mg sodium chloride 0.9% infusion 100 mL * Agents Name O2 * Blood No blood administrations on file. Lines, Drains, and Airways Type Details Placement Removal Peripheral IV Placement Date: 07/27/23; Placement Time: 0900; Catheter Size: 18 G; Orientation: Right; Location: Antecubital; Removal Date: 01/22/24; Removal Time: 1442 07/27/23 0900 by Blake Bedoya RN 01/22/24 1442 by Milad Pineda, JÚNIOR RETIRED Wound 07/27/23; 1300; Yes; Laceration; Right; Ear; Injury r/t fall prior to admission. Stitches present.; 07/05/24 (Retired LDA, Removed/Completed by Interse with LDA Utility); 1213 (Retired LDA, Removed/Completed by Interse with LDA Utility) 07/27/23 1300 by Josephine Iglesias RN 07/05/24 1213 by Discharge Provider, Automatic Peripheral IV Placement Date: 01/22/24; Placement Time: 1321; Catheter Size: 22 G; Orientation: Left, Posterior; Location: Hand; Site Prep: Chlorhexidine; Inserted by: anesthesia; Insertion Attempts: 2 (multiple attempts by 2 RNS); Patient Tolerance: Tolerated well; Removal Date: 01/22/24; Removal Time: 1441 01/22/24 1321 by Carlota Platt RN 01/22/24 1441 by Milad Pineda RN documented in this encounter Social History Tobacco Use Types Packs/Day Years [...] on file 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 Gender Identity Not on file Sexual Orientation Not on file documented as of this encounter OR Notes * Anesthesia Postprocedure Evaluation - Moses Fontenot CRNA - 01/22/2024 1:59 PM CDT Patient: Neal Amaro Procedure Summary Date: 01/22/24 [place] / [place]: [facility] Anesthesia Start: 1332 Anesthesia Stop: 1358 Procedures: ESOPHAGEAL BALLOON DISTENTION STUDY DIAGNOSTIC WITH PROVOCATION ENDO ADD ON ESOPHAGOGASTRODUODENOSCOPY INJECTION SUBMUCOSAL Diagnosis: Dysphagia, unspecified type (Dysphagia, unspecified type [R13.10]) Providers: Taras Soriano MD Responsible Provider: Kam Fuller DO Anesthesia Type: general TIVA ASA Status: 3 Anesthesia Type: general TIVA Last vitals BP 162/62 Pulse 53 Temp 36.6 ??C (97.8 ??F) (Temporal) Resp 16 SpO2 100% Anesthesia Post Evaluation Patient location during evaluation: PACU Patient participation: complete - patient participated 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 * Anesthesia Preprocedure Evaluation - Kam Fuller DO - 01/22/2024 8:20 AM CDT Images from the original note were not included. Anesthesia Evaluation Neal Amaro is a 83 y.o. male EGD w/Endo Flip Pre-Op Diagnosis Codes: * Dysphagia, unspecified type [R13.10] HISTORY Past Medical History Information obtained from: chart. Neurological Comments: History of subarachnoid hemorrhage Cardiovascular + Hypertension + Hyperlipidemia + Atrial fibrillation/flutter (Last coumadin was 88 PM) - Current Rhythm: non-fibrillation/flutter. Rhythm type: paroxysmal (multiple episodes < 7 days). 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 Hepatic / Heme + History of anemia Comments: S/p splenectomy, periodic phlebotomy for elevated RBC's Gastrointestinal + GERD Musculoskeletal/Pain + Chronic pain (baclofen 10 tid) - back pain. Pertinent negatives: chronic opioid use Endocrine / Other + Diabetes mellitus - Diabetes type 2. Diabetic complications: nephropathy and neuropathy. Outpatient insulin use: current. + Thyroid disease - hypothyroidism + Obesity (BMI >30)- morbid obesity (BMI>40). + Rheumatological disease (osteomylitis of spine) Functional Capacity Functional capacity: ambulates with assistance only and <4 METs Review of Systems + SOB (chronic; no recent changes) + pedal edema (occ at end of day) + chronic pain (baclofen 10 tid) Pertinent negatives: wheezing; recent cold/flu; chest pain; palpitations; orthopnea; nausea; dentures/partials and abdominal pain PAT Summary and Plans Cardiac risk classification of planned procedure: intermediate cardiac risk. Anesthesia plan discussed: general anesthesia. Preoperative assessment status: complete. Additional comments: Neal Amaro is a 78 y.o. male who is being evaluated prior to undergoing an intermediate cardiac risk open vascular surgery. Revised Cardiac Risk Index factors are (insulin therapy for diabetes) for a total RCRI of 1 out of 6. Functional capacity is <4 METs. Obstructive sleep apnea (LOTUS) screening status is STOP-Bang=5 suggesting HIGH RISK for LOTUS. Blood bank needs for day of procedure: Type and Screen only Preoperative evaluation performed by Arturo Vargas MD on 03/11/19 at 10:01 PM.. Patient Active Problem List Diagnosis Date Noted Dysphagia 09/17/2023 Encounter for medication review 07/28/2023 SAH (subarachnoid hemorrhage) (CMS/HCC) ([facility]) 07/27/2023 Laceration of right ear 07/27/2023 Left knee pain 07/27/2023 Polycythemia 07/27/2023 Hypothyroid 07/27/2023 Elevated red blood cell count 07/21/2023 Closed fracture of left distal fibula 03/11/2019 Acute pain due to trauma 03/11/2019 Type 2 diabetes mellitus, with long-term current use of insulin ([facility]) 03/11/2019 Hyperlipidemia associated with type 2 diabetes mellitus ([facility]) 02/08/2019 Presence of IVC filter 09/28/2018 Bruising 03/19/2017 Chronic anemia 03/19/2017 Edema 03/19/2017 Pulmonary embolism without acute cor pulmonale ([facility]) 02/10/2017 Atrial fibrillation, currently in sinus rhythm 01/20/2017 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/HCC) ([facility]) 08/09/2015 Osteomyelitis of lumbar spine ([facility]) 07/12/2015 Arthritis 12/17/2009 Hypertension 12/17/2009 Past Medical History: Diagnosis Date Arthritis Atrial fibrillation (CMS/HCC) ([facility]) Dysphagia GERD (gastroesophageal reflux disease) Hyperlipidemia Hypertension Hypothyroidism Type 2 diabetes mellitus ([facility]) Past Surgical History: Procedure Laterality Date ANKLE SURGERY BACK SURGERY x2 COLONOSCOPY REPLACEMENT TOTAL KNEE ONCOLOGIC Bilateral ROTATOR CUFF REPAIR Right SPLENECTOMY, TOTAL UPPER GASTROINTESTINAL ENDOSCOPY WHIPPLE PROCEDURE W/ LAPAROSCOPY Allergies Allergen Reactions Adhesive Tape-Silicones Flushing (skin) Taking? Last Dose Start Date End Date Provider acetaminophen (TYLENOL) 325 mg tablet Past Week 07/29/23 -- Vianney Orr NP Take 2 tablets (650 mg total) by mouth every 6 (six) hours as needed for pain albuterol HFA (PROVENTIL HFA,VENTOLIN HFA,PROAIR HFA) 90 mcg/actuation inhaler -- 05/26/23 -- Provider, MD Dee atorvastatin (LIPITOR) 20 mg tablet 01/21/2024 07/11/23 -- ProviderDee MD azelastine (ASTELIN) 137 mcg (0.1 %) nasal spray -- 06/26/23 -- Provider, MD Dee baclofen (LIORESAL) 10 mg tablet 01/21/2024 04/21/16 -- Chapo Lo DO take 1 tablet by oral route 3 times every day BD Blanca 2nd Gen Pen Needle 32 gauge x 32 needle -- 08/21/23 -- Provider, MD Dee doxycycline 100 mg tablet 01/21/2024 04/25/23 -- Provider, MD Dee Farxiga 5 mg tablet 01/21/2024 -- -- Provider, MD Dee flecainide (TAMBOCOR) 50 mg tablet 01/21/2024 12/17/23 -- Collin Rojas MD TAKE 1 TABLET BY MOUTH TWICE A DAY insulin glargine (LANTUS SOLOSTAR) 100 unit/mL (3 mL) insulin pen 01/21/2024 04/21/16 -- Chapo Lo DO inject by subcutaneous route as per insulin protocol Patient taking differently: Inject 44 Units under the skin nightly insulin lispro (HumaLOG, ADMELOG) 100 unit/mL pen for injection 01/21/2024 05/12/23 -- Provider, MD Dee levETIRAcetam (KEPPRA) 500 mg tablet () -- 07/29/23 08/04/23 Vianney Orr NP Take 1 tablet (500 mg total) by mouth 2 (two) times a day for 11 doses Patient not taking: Reported on 10/01/2023 levothyroxine (SYNTHROID) 50 mcg tablet -- 08/08/19 -- Provider, MD Dee metoprolol (LOPRESSOR) 25 mg tablet 01/21/2024 04/21/16 -- Chapo Lo DO 1/2 tab bid omeprazole (PriLOSEC) 20 mg capsule -- 04/25/23 -- ProviderDee MD OneTouch Ultra Test strip -- 04/20/23 -- Dee Barros MD oxyCODONE (ROXICODONE) 5 mg immediate release tablet Past Week 07/29/23 -- Son Chowdhury, DO Take 1 tablet (5 mg total) by mouth every 4 (four) hours as needed for pain pregabalin (LYRICA) 150 mg capsule 01/21/2024 05/13/23 -- Dee Barros MD senna-docusate (PERICOLACE) 8.6-50 mg 01/21/2024 07/29/23 -- Vianney Orr NP Take 1 tablet by mouth 2 (two) times a day tamsulosin (FLOMAX) 0.4 mg capsule,extended release 24hr 01/21/2024 04/21/16 -- Chapo Lo DO take 1 capsule by oral route every day 1/2 hour following the same meal each day Patient taking differently: Take 2 capsules (0.8 mg total) by mouth daily traMADoL (ULTRAM) 50 mg tablet 01/21/2024 -- -- ProviderDee MD Trelegy Ellipta 200-62.5-25 mcg inhaler 01/21/2024 06/19/23 -- Dee Barros MD triamcinolone (KENALOG) 0.1 % cream -- 05/26/23 -- Dee Barros MD warfarin (COUMADIN) 5 mg tablet Past Week -- -- ProviderDee MD Notes: LAST DOSE 01/16 No current facility-administered medications for this encounter. Current Outpatient Medications: acetaminophen (TYLENOL) 325 mg tablet atorvastatin (LIPITOR) 20 mg tablet baclofen (LIORESAL) 10 mg tablet doxycycline 100 mg tablet Farxiga 5 mg tablet flecainide (TAMBOCOR) 50 mg tablet insulin glargine (LANTUS SOLOSTAR) 100 unit/mL (3 mL) insulin pen insulin lispro (HumaLOG, ADMELOG) 100 unit/mL pen for injection metoprolol (LOPRESSOR) 25 mg tablet oxyCODONE (ROXICODONE) 5 mg immediate release tablet pregabalin (LYRICA) 150 mg capsule senna-docusate (PERICOLACE) 8.6-50 mg tamsulosin (FLOMAX) 0.4 mg capsule,extended release 24hr traMADoL (ULTRAM) 50 mg tablet Trelegy Ellipta 200-62.5-25 mcg inhaler warfarin (COUMADIN) 5 mg tablet albuterol HFA (PROVENTIL HFA,VENTOLIN HFA,PROAIR HFA) 90 mcg/actuation inhaler azelastine (ASTELIN) 137 mcg (0.1 %) nasal spray BD Blanca 2nd Gen Pen Needle 32 gauge x 5/32 needle levETIRAcetam (KEPPRA) 500 mg tablet levothyroxine (SYNTHROID) 50 mcg tablet omeprazole (PriLOSEC) 20 mg capsule OneTouch Ultra Test strip triamcinolone (KENALOG) 0.1 % cream Social History Tobacco Use Smoking Status Former Smokeless Tobacco Never Alcohol Use: Not At Risk (09/17/2023) AUDIT-C Frequency of Alcohol Consumption: Monthly or less Average Number of Drinks: 1 or 2 Frequency of Binge Drinking: Never Substance and Sexual Activity Drug Use Never Family History Family history unknown: Yes There were no vitals filed for this visit. PT: No results found for requested labs within last 30 days. INR: No results found for requested labs within last 30 days. APTT: No results found for requested labs within last 30 days. Hgb A1C: No results found for requested labs within last 30 days. CBC RBC: No results found for requested labs within last 30 days. RDW: No results found for requested labs within last 30 days. MCHC: No results found for requested labs within last 30 days. MCH: No results found for requested labs within last 30 days. MCV: No results found for requested labs within last 30 days. Hct: No results found for requested labs within last 30 days. Hgb: No results found for requested labs within last 30 days. WBC: No results found for requested labs within last 30 days. MPV: No results found for requested labs within last 30 days. Platelets: No results found for requested labs within last 30 days. RDW CV: No results found for requested labs within last 30 days. RDW Sd: No results found for requested labs within last 30 days. BMP Glucose: No results found for requested labs within last 30 days. Calcium: No results found for requested labs within last 30 days. Sodium: No results found for requested labs within last 30 days. Potassium: No results found for requested labs within last 30 days. CO2: No results found for requested labs within last 30 days. Chloride: No results found for requested labs within last 30 days. BUN: No results found for requested labs within last 30 days. Creatinine: No results found for requested labs within last 30 days. DOS Physical Exam Medical history, medications, and allergies reviewed. Attestation: With today's edits, I endorse the findings of the anesthesia pre-evaluation assessment dated: 01/22/2024. Airway Exam: Mallampati: II Cervical ROM: FROM Cardiovascular Exam: Rate: regular Rhythm: regular Pulmonary Exam: (Non-labored breathing) Dental Exam: Appears intact Current state: Patient's current state is cooperative. Anesthesia Plan ASA 3 My patient is approved for the Anesthesia Controlled Medication protocol when under care of a CLAY SHOP SUPERVISOR Planned anesthesia: General TIVA Team communication plan: mask Induction: Induction: intravenous. Postoperative Plan: No plan for postoperative opioid use. No postoperative mechanical ventilation intended. Patient's planned disposition post procedure is Outpatient. Informed Consent: Discussed plan with CLAY SHOP SUPERVISOR. Anesthesia plan and risks discussed with patient. Plan and Consent Comments: Backup plan is general anesthetic with LMA or ETT as indicated. Consent and Attending signature: I and/or my designee have discussed the anesthesia plan, benefits, possible alternatives, parental presence at time of induction (if indicated), and clinically relevant risks that may include dental injury, unintentional awareness, and/or other complications. The patient and/or parent/legal guardian understand, and agree to proceed. All questions answered. documented in this encounter Plan of Treatment Not on file documented as of this encounter Visit Diagnoses Not on filedocumented in this encounter Administered Medications Inactive Administered Medications - up to 3 most recent administrations Medication Order MAR Action Action Date Dose Rate Site etomidate (AMIDATE) injection intravenous, Administer over 1 Minutes, As needed, Starting on Thu01/22/24 at 1336, Anesthesia Intra-op Given 01/22/2024 1:42 PM CDT 4 mg Given 01/22/2024 1:36 PM CDT 10 mg ketamine (KETALAR) 100 mg/10 mL (10 mg/mL) in sodium chloride 0.9% (premix) intravenous, Administer over 2 Minutes, As needed, Starting on Thu01/22/24 at 1336, Anesthesia Intra-op Given 01/22/2024 1:36 PM CDT 20 mg lidocaine (cardiac) (XYLOCAINE) preservative free injection intravenous, As needed, Starting on Thu01/22/24 at 1336, Anesthesia Intra-op, Indications: Ventricular ArrhythmiasIndications:Ventricular Arrhythmias Given 01/22/2024 1:36 PM CDT 100 mg propofoL (DIPRIVAN) 10 mg/mL IV intravenous, As needed, Starting on Thu01/22/24 at 1336, Anesthesia Intra-op Given 01/22/2024 1:45 PM CDT 30 mg Given 01/22/2024 1:41 PM CDT 30 mg Given 01/22/2024 1:36 PM CDT 30 mg sodium chloride 0.9% infusion 30 mL/hr, intravenous, Continuous, Starting on Thu01/22/24 at 1315, Pre-Procedure (GI) Rate/Dose Verify 01/22/2024 1:32 PM CDT 30 mL/hr New Bag 01/22/2024 1:22 PM CDT 30 mL/hr 30 mL/hr documented in this encounter Care Teams Coffee Shop Attendant Relationship Specialty Start Date End Date Liset Haynes MD PCP - General Family Medicine 08/05/22 documented as of this encounter
--- OUTSIDE RECORDS SUMMARY | 2024-07-24 00:09 | XMS_ITS | Encounter Summary ---
Author Organization [facility] Address [address] [place] [address] Phone Care Team Providers Care Radio Director Name Role Phone Liset Haynes MD Primary Care Provider [phone] Reason for Visit * Reason Onset Date Comments Anticoagulation Hold- Warfarin 01/04/2024 Encounter Details Date Type Department Care Team (Late st Contact Info) Description 01/04/2024 Telephone [facility] Gastroenterology [facility] [address] [place] [address] [place] [address] Mireya Proctor, RN Anticoagulation Hold- Warfarin Social History Tobacco Use Types Packs/Day Years [...] on file 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 Collin Rojas's office in regard for request to hold Warfarin prior to the patients upcoming procedure. RN spoke with office staff who request it be faxed. RN faxed the request to [phone]. Awaiting response at this time. documented in this encounter Plan of Treatment Not on file documented as of this encounter Visit Diagnoses Not on filedocumented in this encounter Care Teams Radio Director Relationship Specialty Start Date End Date Liset Haynes MD PCP - General Family Medicine 08/05/22 documented as of this encounter
--- OUTSIDE RECORDS SUMMARY | 2024-07-24 00:09 | XMS_ITS | Encounter Summary ---
Author Organization [facility] Address [address] [place] [address] Care Team Providers Care Granite Polisher Machine Name Role Phone Christopher Diop MD Primary Care Provider [phone] Reason for Visit * Reason Onset Date Comments Results 03/23/2017 Encounter Details Date Type Department Care Team ([facility] Contact Info) Description 03/23/2017 Telephone [facility] Oncology and Hematology - [facility] [address] [place] [address] Kendall Wills MD [address] [facility] [address] [place] [address] Results Social History Tobacco Use Types Packs/Day Years [...] encounter Miscellaneous Notes * Telephone Encounter - Sisi Martin RN - 03/23/2017 3:00 PM CDT Lab results reviewed by Dr. Wills, plan to start Feraheme, pt notified. Sisi Martin RN documented in this encounter Plan of Treatment Upcoming Encounters Date Type Department Care Team ([facility] Contact Info) Description 01/10/2025 11:30 AM CDT Office Visit [facility] Oncology and Hematology - [place] [place] [address] Kendall Wills MD [address] [facility] [address] [place] [address] documented as of this encounter Visit Diagnoses Not on filedocumented in this encounter Care Teams Granite Polisher Machine Relationship Specialty Start Date End Date Christopher Diop MD [address] [place] [address] PCP - General Family Practice 03/19/17 01/05/23 documented as of this encounter
--- OUTSIDE RECORDS SUMMARY | 2024-07-24 00:09 | XMS_ITS | Encounter Summary ---
Author Organization [facility] Healthcare Address [address] [place] [address] Care Team Providers Care Supervisor Advice Name Role Phone Liset Haynes MD Primary Care Provider [phone] Reason for Visit * Auth/Cert (Routine) Specialty Diagnoses / Procedures Referred By Roly reinoso Referred To Contact Diagnoses Dysphagia, unspecified type Dysphagia, unspecified type [R13.10] Procedures [place] ESOPHAGOGASTRODUODENOSCOPY TRANSORAL DIAGNOSTIC EGD w/Endo Flip Referral ID Status Reason Start Date Expiration Date Visits Re quested Visits Authorized [id number] 1 1 Encounter Details Date Type Department Care Team ([facility] Contact Info) Description 01/22/2024 11:30 AM CDT Lab [facility] Outpatient Lab [facility] [place] [address] Pre-procedure lab exam; Atrial fib/flutter, transient (HCC) Social History Tobacco Use Types Packs/Day Years [...] on file 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 Gender Identity Not on file Sexual Orientation Not on file documented as of this encounter Plan of Treatment Not on file documented as of this encounter Procedures Procedure Name Priority Date/Time Associated Diagnosis Comments PROTIME-INR STAT 01/22/2024 11:43 AM CDT Pre-procedure lab exam Atrial fib/flutter, transient (HCC) documented in this encounter Results * Protime-INR (01/22/2024 11:43 AM CDT) PT 11.8 10.3 - 13.7 sec INR 1.04 0.90 - 1.20 AMY [facility] Comment: Interpretive data Oral anticoagulant therapeutic ranges: Venous thromboembolism prophylaxis or treatment: 2.0-3.0 CARDIOLOGY Standard range: 2.0-3.0 High-intensity range: 2.5-3.5 Refer to indication-specific guidelines for appropriate target ranges for prosthetic heart valve replacement. Current interpretive data was last revised on 2019. Blood 01/22/2024 11:4 3 AM CDT 01/22/2024 12:07 PM CDT Taras Soriano MD LAB BLOOD ORDERABLES Final Result [facility] [address] Department [place] [address] documented in this encounter Visit Diagnoses Diagnosis Pre-procedure lab exam Pre-procedural laboratory examination Atrial fib/flutter, transient (HCC) documented in this encounter Care Teams Supervisor Advice Relationship Specialty Start Date End Date Liset Haynes MD PCP - General Family Medicine 08/05/22 documented as of this encounter
--- OUTSIDE RECORDS SUMMARY | 2024-07-24 00:09 | XMS_ITS | Referral Summary ---
Author Organization [facility] Address [address] [place] [address] Care Team Providers Care Puller Through Name Role Phone Liset Haynes MD Primary Care Provider [phone] Encounters Date Type Department Care Team Description 05/23/2024 Telephone [facility] Gastroenterology [address] [facility] Advanced Medicine 12th [address] [phone] Savanna Romo LPN 04/26/2024 Telephone [facility] [address] [facility] Medicine 12th Floor [address] [phone] Savanna Romo LPN from Last 3 Months Allergies Active Allergy Reactions Criticality Noted Date Comments Adhesive Tape-Silicones Flushing (skin) Low Medications baclofen (LIORESAL) 10 mg tablet take 1 tablet by oral route 3 times every day 0 0 6 Active tamsulosin (FLOMAX) 0.4 mg capsule,extende d release 24hr take 1 capsule by oral route every day 1/2 hour following the same meal each day 0 0 6 Active Additional Information Patient taking differently: 0.8 mg oral Daily, Informant: Pharmacy, Reported on 07/28/2023 insulin glargine (LANTUS SOLOSTAR) 100 unit/mL (3 mL) insulin pen inject by subcutaneous route as per insulin protocol 0 Syringe 0 6 Active Additional Information Patient taking differently: 44 Units subcutaneous Nightly, Informant: Pharmacy, Reported on 07/28/2023 metoprolol (LOPRESSOR) 25 mg tablet 1/2 tab bid 90 3 6 Active levothyroxine (SYNTHROID) 50 mcg tablet Take 1 tablet (50 mcg total) by mouth daily 0 Active albuterol HFA (PROVENTIL HFA,VENTOLIN HFA,PROAIR HFA) 90 mcg/actuation inhaler INHALE TWO PUFFS BY MOUTH EVERY 2-4 HOURS NEEDED FOR SHORTNESS OF BREATH OR WHEEZING 3 Active azelastine (ASTELIN) 137 mcg (0.1 %) nasal spray ADMINISTER 2 SPRAYS INTO EACH NOSTRIL EVERY 12 HOURS 3 Active OneTouch Ultra Test strip USE TO TEST BLOOD SUGAR THREE TIMES DAILY 3 Active Farxiga 5 mg tablet Take by mouth daily Active omeprazole (PriLOSEC) 20 mg capsule Take 1 capsule (20 mg total) by mouth daily 3 Active triamcinolone (KENALOG) 0.1 % cream Apply topically 2 (two) times a day 3 Active atorvastatin (LIPITOR) 20 mg tablet Take 1 tablet (20 mg total) by mouth daily 3 Active doxycycline 100 mg tablet Take 1 tablet/capsule (100 mg total) by mouth every 12 (twelve) hours 3 Active Trelegy Ellipta 200-62.5-25 mcg inhaler Inhale 1 puff daily 3 Active insulin lispro (HumaLOG, ADMELOG) 100 unit/mL pen for injection Inject 8-10 Units under the skin 3 (three) times a day with meals 3 Active pregabalin (LYRICA) 150 mg capsule Take 1 capsule (150 mg total) by mouth 3 (three) times a day 3 Active acetaminophen (TYLENOL) 325 mg tabletIndicatio ns:Pain Take 2 tablets (650 mg total) by mouth every 6 (six) hours as needed for pain 30 tablet 3 Active levETIRAcetam (KEPPRA) 500 mg tablet Take 1 tablet (500 mg total) by mouth 2 (two) times a day for 11 doses 11 tablet 3 Active Additional Information Patient not taking.Reported on 10/01/2023 senna-docusate (PERICOLACE) 8.6-50 mgIndications:c onstipation Take 1 tablet by mouth 2 (two) times a day 28 tablet 3 Active oxyCODONE (ROXICODONE) 5 mg immediate release tabletIndicatio ns:Pain Take 1 tablet (5 mg total) by mouth every 4 (four) hours as needed for pain 5 tablet 3 Active BD Blanca 2nd Gen Pen Needle 32 gauge x needle DIRECTED FOUR TIMES DAILY WITH INSULIN 4 Active traMADoL (ULTRAM) 50 mg tablet Take 1 tablet (50 mg total) by mouth every 6 (six) hours as needed for pain Active flecainide (TAMBOCOR) 50 mg tablet TAKE 1 TABLET BY MOUTH TWICE A DAY 180 tablet 2 4 Active warfarin (COUMADIN) 5 mg tablet Take 1 tablet (5 mg total) by mouth daily Active Active Problems Problem Noted Date Diagnosed Date Dysphagia 09/17/2023 Encounter for medication review 07/28/2023 Assessment & Plan (07/28/2023 1:21 PM RING FACER): 07/28 medications reviewed and updated through contact with [facility] (subarachnoid hemorrhage) ([facility]) 07/27/20 Assessment & Plan (07/29/2023 7:30 AM RING FACER): - Neurosurgery consulted - Repeat head CT [...] 07/27/2023 Assessment & Plan (07/27/2023 2:21 PM RING FACER): - PRS consulted - s/p repair with 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 - Bacitracin TID x 3 days, then vaseline - HOB elevation - Pending recovery or discharge, please call [phone] or [phone] to schedule follow-up within 1-2 weeks to be seen by an BURT Left knee pain 07/27/2023 Assessment & Plan (07/28/2023 12:59 PM RING FACER): - XR left knee: negative for acute fracture Polycythemia 07/27/2023 Assessment & Plan (07/28/2023 12:59 PM RING FACER): #coagulopathy - last PE in per chart [...] 07/27/2023 Assessment & Plan (07/27/2023 2:50 PM RING FACER): - continue home levothyroxine Elevated red blood cell count 07/21/2023 Closed fracture of left distal fibula 03/11/2019 Overview (03/11/2019): Added automatically from request for surgery [id number] Acute pain due to trauma 03/11/2019 Type 2 diabetes mellitus, wi th long-term current use of insulin 03/11/2019 Assessment & Plan (07/28/2023 1:07 PM RING FACER): #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 R 118 R, CM HDL > OR = 40 mg/dL 46 41 R, CM 34??Low?? R 27??Low?? R, CM Triglycerides <150 mg/dL 84 83 R, CM 80 R 117 R, CM LDL mg/dL (calc) 80 He remains at goal on lipitor 40 mg so will continue Assessment & Plan (08/15/2020 12:58 PM RING FACER): He is on lipitor 20 mg= TC 151/HDL 41/ TG 105/ LDL 89 He has been averaging in the 80 range the past 3 years so am going to the 40 mg dosing to get it down below 70 as he has no sx on the 20 Assessment & Plan (08/17/2019 12:02 PM RING FACER): TC 137/LDL 79 on lipitor 20 mg and at goal Assessment & Plan (02/08/2019 1:08 PM CDT): His LDL is at goal Presence of IVC filter 09/28/2018 Bruising 03/19/2017 Chronic anemia 03/19/2017 Edema 03/19/2017 Pulmonary embolism without acute cor pulmonale 0 02/10/2017 Assessment & Plan (07/28/2023 11:41 AM RING FACER): - Hold warfarin - s/p IVC filter Assessment & Plan (07/21/2017 12:18 PM RING FACER): Unfortunately, he needs anticoagulation. A recent venous [...] 01/20/2017 Assessment & Plan (08/17/2019 12:05 PM RING FACER): 1. 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 Global left ventricular [...] 01/20/2017 Assessment & Plan (07/27/2023 2:41 PM RING FACER): See Pulmonary Embolism Assessment & Plan (01/20/2017 [...] elective Lexiscan nuclear stress test over at [facility] which is convenient. If this is negative and since pulmonary is no from there mechanism. It may be worthwhile to consider some type of an alternate exercise program such as swimming, i.e. water aerobic Pure hypercholesterolemia 01/20/2017 Assessment & Plan (07/27/2023 2:42 PM RING FACER): - Continue home Lipitor Assessment & Plan (02/08/2019 1:06 PM CDT): SCRIBED Cholesterol, Total l - h 151 SCRIBED HDL l - h 45 SCRIBED LDL l - h 87 SCRIBED Triglycerides l - h 95 His LDL is at goal on lipitor 20 mg a day Assessment & Plan (08/11/2018 10:31 AM RING FACER): Lipid profile today=TC 170/ HDL 55/ TG [...] lipitor Assessment & Plan (07/21/2017 12:22 PM RING FACER): Todays lipid profile= TC 151/ HDL 45/ [...] 01/02 Assessment & Plan (07/27/2023 2:47 PM RING FACER): - BMI 44.94 kg/m2 on admission Assessment & Plan (02/08/2019 2:11 PM CDT): He continues to work with diet and exercise Assessment & Plan (08/11/2018 10:35 AM RING FACER): He continues to work with calorie restriction and ambulation Assessment & Plan (01/27/2018 11:21 AM CDT): He works with diet, exercise limited as he walks with a cane Assessment & Plan (07/21/2017 12:31 PM RING FACER): He continues to work with diet Assessment & Plan (02/10/2017 1:56 PM CDT): Need for wt loss discussed. Recs: 1) continue diet and lifestyle modifications. Metastatic neoplasm 07/18/2016 Benign paroxysmal positional vertigo 09/20/2015 Pulmonary embolism 08/09/2015 Paroxysmal atrial fibrillation (CMS/HCC) 016 Assessment & Plan (07/27/2023 2:57 PM RING FACER): - Continue home flecainide - Continue home metoprolol - suppressed on warfarin, flecainide; follows with cardiology outpatient - last TTE in 2019 w/ LVEF 55% and no obvious structural issues Assessment & Plan (08/06/2021 12:26 PM RING FACER): He has had no recurrences since last year; echo normal, So I made no changes He is protected with Warfarin, on tambocor and metoprolol which I would continue Assessment & Plan (08/15/2020 12:39 PM RING FACER): He has had recurrent episodes of atrial [...] 07/12/2015 Assessment & Plan (07/28/2023 11:47 AM RING FACER): - 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 since then per ID - doxycycline reordered Arthritis 12/17/2009 Hypertension 12/17/2009 Assessment & Plan (08/06/2021 12:26 PM RING FACER): His BP remains at goal on the BB, so will continue Assessment & Plan (08/15/2020 12:34 PM RING FACER): His blood pressure is at goal Assessment & Plan (08/17/2019 12:00 PM RING FACER): His BP remains at goal Assessment & Plan (02/08/2019 1:05 PM CDT): His BP remains at goal Assessment & Plan (08/11/2018 10:26 AM RING FACER): His BP is at goal Immunizations Name Administration Dates Next Due Influenza, Quadrivalent, Merle l Culture-based MDCK, Antibiotic Free, Intramuscular 06/07/2018 Influenza, Trivalent, High D ose, Split, Preservative Free, Intramuscular 06/09/2019,05/11/2017 Pneumococcal Conjugate PCV 13 08/03/2017, 016 Pneumococcal Polysaccharide PPV23 05/10/2013 TD Preservative Free 01/24/2004 Tdap 07/27/2023,05/10/2013 ZOSTER Recombinant 08/22/2019,06/09/2019 Social History Tobacco Use Types Packs/Day Years Used Date Smoking Tobacco: Former Smokeless Tobacco: Never Tobacco Cessation:Counseling Given: Not [...] on file Legal Sex Male 3:18 AM RING FACER Gender Identity Not on file Sexual Orientation Not on file Last Filed Vital Signs Vital Sign Reading Time Taken Comments Blood Pressure 146/73 01/22/2024 2:29 PM CDT Pulse 54 01/22/2024 2:29 PM CDT Temperature 36.6 ??C (97.8 ??F) 01/22/2024 1 2:49 PM CDT Respiratory Rate 18 01/22/2024 2:2 9 PM CDT Oxygen Saturation 99% 01/22/2024 2:29 PM CDT Inhaled Oxygen Concentration - - Weight 154.5 kg (340 lb 9.8 oz) 024 12:49 PM CDT Height 188 cm (6' 2.02 ) 01/22/2024 12: 49 PM CDT Body Mass Index 43.71 01/22/2024 12:49 PM CDT Plan of Treatment Not on file Procedures Procedure Name Priority Date/Time Associated Diagnosis Comments EGFR STAT 07/27/2023 8:57 AM RING FACER LIPID PANEL Routine 11/13/2020 8:46 AM CDT HEMOGLOBIN A1C STAT 03/11/2019 12:48 PM CDT from Last 3 Months or Most Recently Relevant to Health Maintenance Results * eGFR (07/27/2023 8:57 AM RING FACER) eGFR 60 >=60 mL/min/1. 73 m2 [facility] Comment: Interpretive Data Reference Interval Normal ?>/= 90 mL/min/1.73m2 Mildly decreased* ? 60 - 89 mL/min/1.73m2 Mildly to moderately decreased ?45 - 59 mL/min/1.73m2 Moderately to severely decreased ??30 - 44 mL/min/1.73m2 Severely decreased ?15 - 29 mL/min/1.73m2 Kidney Failure ?< 15 ??mL/min/1.73m2 *Relative to young adult level Estimated glomerular filtration rate is determined by the 2020 CKD-EPI equation recommended by the National Kidney Foundation (A Unifying Approach to GFR Estimation: Recommendations of the NKF-ASK Task Force on Reassessing the Inclusion of Race in Diagnosing Kidney Disease, JASN 2020). The CKD-EPI equation should not be used for patients with unstable renal function and has not been validated in children and those over 70. Current interpretive data was last reviewed 2021. Blood 07/27/2023 8:57 AM RING FACER 07/27/2023 9:13 AM RING FACER us Carlota Blum MD LAB BLOOD ORDERABLES F inal Result [facility] [place] [address] * Lipid panel (11/13/2020 8:46 AM CDT) Cholesterol 142 <200 mg/dL [facility] HDL 46 > OR = 40 mg/dL [facility] Triglycerides 84 <150 mg/dL [facility] LDL 80 mg/dL (calc) [facility] Comment: Reference range: <100 Desirable range <100 mg/dL for primary prevention; ?? <70 mg/dL for patients with CHD or diabetic patients with > or = 2 CHD risk factors. LDL-C is now calculated using the Norberto-Junior calculation, which is a validated novel method providing better accuracy than the Friedewald equation in the estimation of LDL-C. Norberto SS et al. TEGAN. 2013;310(19): 3138-7800 (http://education.[employer].Spiffy Society/faq/NZG009) Chol/HDL ratio 3.1 <5.0 (calc) [facility] Non-HDL, (LDL+VLDL) 96 <130 mg/dL (calc) [facility] Comment: For patients with diabetes plus 1 major ASCVD risk factor, treating to a non-HDL-C goal of <100 mg/dL (LDL-C of <70 mg/dL) is considered a therapeutic option. 11/13/2020 8:46 AM CDT 11/13/2020 8:47 AM CDT Narrative [facility] - 11/14/2020 2:24 AM CDT FASTING:YES FASTING: YES Nobrerto Cordero DO LAB BLOOD ORDERABLES Final Result Performing Organization Address [facility] Co de Phone Number [facility] [address] [place] [address] * (ABNORMAL) Hemoglobin A1c (03/11/2019 12:48 PM CDT) Hgb A1C 7.5(H) 4.0 - 5.6 % [facility] Estimated Average Glucose 169 mg/dL [facility] Comment: The ADA recommends reporting an estimated Average Glucose (eAG) with all Hemoglobin A1c results using the equation derived from a study of 507 normal and diabetic adults. ??Minority populations were underrepresented and children were not included. ?? (Diabetes Care 31:9457-1463, 2008). ??The eAG is not equivalent to a fasting glucose. Blood specimen (specimen) 03/11/2019 12:48 PM CDT 03/11/2019 12:59 PM CDT Alvaro Ortez DO LAB BLOOD ORDERABLES Fi nal Result Performing Organization Address [facility] Co de Phone Number [facility] Department [place] [address] from Last 3 Months or Most Recently Relevant to Health Maintenance Insurance MEDICARE [employer] [facility] MEDICARE Address: [address] [address] [place] [address] AET MEDICARE [facility] MEDICARE AET MEDICARE MEDICARE [employer] MEDICARE SOLUTIONS Advance Directives For more information, please contact: [phone] * Full Code (Latest Code Status on File) Date Activated Date Inactivated Comments 01/22/2024 12:34 PM 01/22/2024 7:05 PM * Full Code Date Activated Date Inactivated Comments 07/27/2023 11:35 AM 07/29/2023 6:04 PM * Full Code Date Activated Date Inactivated Comments 03/11/2019 9:03 PM 03/16/2019 8:04 PM Care Teams Puller Through Relationship Specialty Start Date End Date Liset Haynes MD PCP - General Family Medicine 08/05/22
--- OUTSIDE RECORDS SUMMARY | 2024-07-24 00:09 | XMS_ITS | Encounter Summary ---
Author Organization [facility] Address [address] [place] [address] Phone Care Team Providers Care Secretarial Teacher Name Role Phone Liset Haynes MD Primary Care Provider Encounter Details Date Type Department Care Team (Late st Contact Info) Description 04/26/2024 Telephone [facility] Gastroenterology [address] [facility] Advanced [facility] 12th [place] [address] [place] [address] Savanna Romo LPN Social History Tobacco Use Types Packs/Day Years [...] on file Legal Sex Male 3:18 AM BEHAVIORAL PEDIATRICIAN Gender Identity Not on file Sexual Orientation Not on file documented as of this encounter Miscellaneous Notes * Telephone Encounter - Savanna Romo LPN - 04/26/2024 10:50 AM CDT Images from the original note were not included. ---- Message ----- From: Leora Rosas MD Sent: 04/07/2024 11:16 AM CDT To: Savanna Romo LPN Can you check in with pt for follow up of dysphagia after EGD with botox injection? Non-urgent. Spoke w pt who states he was doing really well since his last injections but for the last few weekswhen he eats he is staring to cough again more frequently . Denies any regurgitation or reflux issues. Did discuss sitting upright for all meals and 30 minutes afterwards, eating small bits and chewing very well. Update sent Leora Rosas MD Clark, Bethany, LPN Thanks for the update. Please check in with him again in 3-4 weeks. If he still has problems at that time, recommend repeating EGD. Please let me know too because pt might need to be fasting longer than usual. Previously had an egd w endo flip - spoke w pt who verbalized understanding and provided direct contact number to call if any issues arise prior to update in 3- 4 week. Reminder set documented in this encounter Plan of Treatment Not on file documented as of this encounter Visit Diagnoses Not on filedocumented in this encounter Care Teams Secretarial Teacher Relationship Specialty Start Date End Date Liset Haynes MD PCP - General Family Medicine 08/05/22 documented as of this encounter
--- OUTSIDE RECORDS SUMMARY | 2024-07-24 00:09 | XMS_ITS | Encounter Summary ---
Author Organization [facility] Address [address] [place] [address] Phone Care Team Providers Care Director Of Casework Name Role Phone Liset Haynes MD Primary Care Provider [phone] Encounter Details Date Type Department Care Team (Late st Contact Info) Description 05/23/2024 Telephone [facility] Gastroenterology [address] [facility] 12th [place] [address] [place] [address] Savanna Romo LPN Social History [...] on file Legal Sex Male 3:18 AM MASTER BREWER Gender Identity Not on file Sexual Orientation Not on file documented as of this encounter Miscellaneous Notes * Telephone Encounter - Savanna Romo LPN - 05/23/2024 9:54 AM CDT F/U symptoms needed - See TE 04.26.2024 Spoke w pt who no issues w regurgitation or reflux still has a cough at times, no different than the last time we spoke. States he is ok and does not fee like he needs another procedure. Update sent to Dr Corey ----- Message ----- From: Leora Rosas MD Sent: 05/23/2024 12:14 PM CDT To: Savanna Romo LPN; Karo Frausto CNA Subject: RE: Symptoms Update Okay. Karo, please schedule GI clinic follow up with me in 6-12 months. documented in this encounter Plan of Treatment Not on file documented as of this encounter Visit Diagnoses Not on filedocumented in this encounter Care Teams Director Of Casework Relationship Specialty Start Date End Date Liset Haynes MD PCP - General Family Medicine 08/05/22 documented as of this encounter
--- OUTSIDE RECORDS SUMMARY | 2024-07-24 00:09 | XMS_ITS | Encounter Summary ---
Author Organization [facility] Address 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; Chronic anemia Social History Tobacco Use Types [...] Date Type Department Care Team ([facility] Contact Info) Description 01/10/2025 11:30 AM CDT Office Visit [facility] Oncology and Hematology [facility] [address] [place] [address] Kendall Wills MD [facility] [employer] [address] [place] [phone] documented as of this encounter Procedures Procedure Name Priority Date/Time Associated Diagnosis Comments CTA CHEST W WO CONTRAST Routine 05/19/2017 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 FERRITIN Routine 05/19/2017 Chronic anemia documented in this encounter Results * FERRITIN (05/19/2017) Blood Kendall Wills MD CHEMISTRY ORDERABLES EXTERNAL LAB * CTA CHEST W WO CONTRAST (05/19/2017) Anatomical Region Laterality Modality Chest Other Kendall Wills MD CT ORDERABLES documented in this encounter Visit Diagnoses Diagnosis 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
--- OUTSIDE RECORDS SUMMARY | 2024-07-24 00:09 | XMS_ITS | Encounter Summary ---
Author Organization [facility] Address 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 Procedures US VENOUS DOPPLER LEG LEFT Kendall Wills MD [address] [facility] [address] [place] [phone] [address] Referral ID Status Reason Start Date Expiration Date Visits Requested Visits Authorized [id number] Closed Ordering Department To Schedule 04/23/2017 05/24/2018 1 1 * Outpatient Services (Routine) - Closed Specialty Diagnoses / Procedures Referred By Contac t Referred To Contact Diagnoses 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 Procedures CTA CHEST W WO CONTRAST Kendall Wills MD [address] [place] [phone] [address] Referral ID Status Reason Start Date Expiration Date Visits Requested Visits Authorized [id number] Closed Ordering Department To Schedule 04/23/2017 05/24/2018 1 1 Reason for Visit * Reason Comments Follow Up Encounter Details Date Type Department Care Team (Late st Contact Info) Description 04/23/2017 10:30 AM CDT Office Visit [facility] [place] [address] [facility] [address] [place] [address] Kendall Wills MD [address] [facility] [address] [place] [address] Chronic anemia (Primary Dx); Morbid obesity with BMI of 40.0-44.9, adult; Other chronic pulmonary embolism without acute cor [...] Sign Reading Time Taken Comments Blood Pressure 118/62 04/23/2017 10:26 AM CDT Pulse - - Temperature 36.4 ??C (97.6 ??F) 04/23/2017 1 0:26 AM CDT Respiratory Rate 10 04/23/2017 10:2 6 AM CDT Oxygen Saturation - - Inhaled Oxygen Concentration - - Weight 154.4 kg (340 lb 6.4 oz) 017 10:26 AM CDT Height 188 cm (6' 2 ) 04/23/2017 10:26 AM CDT Body Mass Index 43.7 04/23/2017 10:26 AM CDT documented in this encounter Progress Notes * Kendall Wills MD - 04/23/2017 11:14 AM CDT HEMATOLOGY / ONCOLOGY PROGRESS NOTE [...] 26 and day 2 on April 02. Review of system Constitutional: No fever; no [...] 85.3 platelet 425,000 neutrophils 57%, creatinine 1.7. @IMAGEIMP@ Assessment: Plan: Patient Active Problem List [...] bleeding.Patient received Feraheme on March 26 and . Hemoglobin has improved to 12.4 from 9.8 previously. Iron studies are pending. I will see him back in one month with repeat CBC and iron studies to decide if he needs any more iron infusion. Hypercoagulable state with history of pulmonary embolism [...] At this time patient had intermittent hematuria. He should have seen urology service and cystoscopy was performed that showed no evidence of bleeding source. At this time I will repeat CT chest angiogram along with left lower extremity Doppler studies. If there is no active blood clot is found then we will discontinue or lower the dose of Xarelto to minimize hematuria. Patient is also going to see urology service next month. ? 04/23/2017 Kendall Wills MD * Nisha Arellano - 04/23/2017 10:27 AM CDT Complaining of blood in the urine Was advised by Urology office to drink 8 glasses of water for 4 days watch for clarity - did clear up some Today presents with more blood in urine and lower abdominal pain documented in this encounter Plan of Treatment Upcoming Encounters Date Type Department Care Team (Late st Contact Info) Description 01/10/2025 11:30 AM CDT Office Visit [facility] - [place] [address] [place] [address] Kendall Wills MD [address] [facility] [address] [place] [address] documented as of this encounter Results * FERRITIN (05/19/2017) Blood Kendall Wills MD CHEMISTRY ORDERABLES Performing Organization Address [facility] Co de Phone Number EXTERNAL LAB * CTA CHEST W WO CONTRAST (05/19/2017) Anatomical Region Laterality Modality Chest Other Kendall Wills MD CT ORDERABLES * IRON, TIBC, AND PERCENT SATURATION (05/18/2017) Blood Kendall Wills MD CHEMISTRY ORDERABLES Performing Organization Address [facility] Co de Phone Number EXTERNAL LAB * (ABNORMAL) CBC WITH DIFFERENTIAL (05/18/2017) Blood Kendall Wills MD HEMATOLOGY ORDERABLE S Performing Organization Address [facility] Co de Phone Number EXTERNAL LAB * (ABNORMAL) BASIC METABOLIC PANEL (05/18/2017) Blood Kendall Wills MD CHEMISTRY ORDERABLES Performing Organization Address 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
--- OUTSIDE RECORDS SUMMARY | 2024-07-24 00:09 | XMS_ITS | Clinical Summary ---
Author Organization [facility] Address [address] [place] [address] Care Team Providers Care Land Resource Specialist Name Role Phone Liset Haynes MD Primary Care Provider [phone] Allergies Active Allergy Reactions Criticality Noted Date [...] 07/28/2023 Assessment & Plan (07/28/2023 1:21 PM DIRECTOR OF INTELLIGENCE): 07/28 medications reviewed and updated through contact with patient's [facility] (subarachnoid hemorrhage) ([facility]) 07/27/20 Assessment & Plan (07/29/2023 7:30 AM DIRECTOR OF INTELLIGENCE): - Neurosurgery consulted - Repeat head CT [...] 07/27/2023 Assessment & Plan (07/27/2023 2:21 PM DIRECTOR OF INTELLIGENCE): - PRS consulted - s/p repair with 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 - Bacitracin TID x 3 days, then vaseline - HOB elevation - Pending recovery or discharge, please call [phone] or [phone] to schedule follow-up within 1-2 weeks to be seen by an [place] Left knee pain 07/27/2023 Assessment & Plan (07/28/2023 12:59 PM DIRECTOR OF INTELLIGENCE): - XR left knee: negative for acute fracture Polycythemia 07/27/2023 Assessment & Plan (07/28/2023 12:59 PM DIRECTOR OF INTELLIGENCE): #coagulopathy - last PE in per chart [...] 07/27/2023 Assessment & Plan (07/27/2023 2:50 PM DIRECTOR OF INTELLIGENCE): - continue home levothyroxine Elevated red blood cell count 07/21/2023 Closed fracture of left distal fibula 03/11/2019 Overview (03/11/2019): Added automatically from request for surgery [id number] Acute pain due to trauma 03/11/2019 Type 2 diabetes mellitus, wi th long-term current use of insulin 03/11/2019 Assessment & Plan (07/28/2023 1:07 PM DIRECTOR OF INTELLIGENCE): #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 R 118 R, CM HDL > OR = 40 mg/dL 46 41 R, CM 34??Low?? R 27??Low?? R, CM Triglycerides <150 mg/dL 84 83 R, CM 80 R 117 R, CM LDL mg/dL (calc) 80 He remains at goal on lipitor 40 mg so will continue Assessment & Plan (08/15/2020 12:58 PM DIRECTOR OF INTELLIGENCE): He is on lipitor 20 mg= TC 151/HDL 41/ TG 105/ LDL 89 He has been averaging in the 80 range the past 3 years so am going to the 40 mg dosing to get it down below 70 as he has no sx on the 20 Assessment & Plan (08/17/2019 12:02 PM DIRECTOR OF INTELLIGENCE): TC 137/LDL 79 on lipitor 20 mg and at goal Assessment & Plan (02/08/2019 1:08 PM CDT): His LDL is at goal Presence of IVC filter 09/28/2018 Bruising 03/19/2017 Chronic anemia 03/19/2017 Edema 03/19/2017 Pulmonary embolism without acute cor pulmonale 0 02/10/2017 Assessment & Plan (07/28/2023 11:41 AM DIRECTOR OF INTELLIGENCE): - Hold warfarin - s/p IVC filter Assessment & Plan (07/21/2017 12:18 PM DIRECTOR OF INTELLIGENCE): Unfortunately, he needs anticoagulation. A recent venous [...] 01/20/2017 Assessment & Plan (08/17/2019 12:05 PM DIRECTOR OF INTELLIGENCE): 1. 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 Global left ventricular [...] 01/20/2017 Assessment & Plan (07/27/2023 2:41 PM DIRECTOR OF INTELLIGENCE): See Pulmonary Embolism Assessment & Plan (01/20/2017 [...] elective Lexiscan nuclear stress test over at [facility] which is convenient. If this is negative and since pulmonary is no from there mechanism. It may be worthwhile to consider some type of an alternate exercise program such as swimming, i.e. water aerobic Pure hypercholesterolemia 01/20/2017 Assessment & Plan (07/27/2023 2:42 PM DIRECTOR OF INTELLIGENCE): - Continue home Lipitor Assessment & Plan (02/08/2019 1:06 PM CDT): SCRIBED Cholesterol, Total l - h 151 SCRIBED HDL l - h 45 SCRIBED LDL l - h 87 SCRIBED Triglycerides l - h 95 His LDL is at goal on lipitor 20 mg a day Assessment & Plan (08/11/2018 10:31 AM DIRECTOR OF INTELLIGENCE): Lipid profile today=TC 170/ HDL 55/ TG [...] lipitor Assessment & Plan (07/21/2017 12:22 PM DIRECTOR OF INTELLIGENCE): Todays lipid profile= TC 151/ HDL 45/ [...] 01/02 Assessment & Plan (07/27/2023 2:47 PM DIRECTOR OF INTELLIGENCE): - BMI 44.94 kg/m2 on admission Assessment & Plan (02/08/2019 2:11 PM CDT): He continues to work with diet and exercise Assessment & Plan (08/11/2018 10:35 AM DIRECTOR OF INTELLIGENCE): He continues to work with calorie restriction and ambulation Assessment & Plan (01/27/2018 11:21 AM CDT): He works with diet, exercise limited as he walks with a cane Assessment & Plan (07/21/2017 12:31 PM DIRECTOR OF INTELLIGENCE): He continues to work with diet Assessment & Plan (02/10/2017 1:56 PM CDT): Need for wt loss discussed. Recs: 1) continue diet and lifestyle modifications. Metastatic neoplasm 07/18/2016 Benign paroxysmal positional vertigo 09/20/2015 Pulmonary embolism 08/09/2015 Paroxysmal atrial fibrillation (CMS/HCC) 016 Assessment & Plan (07/27/2023 2:57 PM DIRECTOR OF INTELLIGENCE): - Continue home flecainide - Continue home metoprolol - suppressed on warfarin, flecainide; follows with cardiology outpatient - last TTE in 2018 w/ LVEF 55% and no obvious structural issues Assessment & Plan (08/06/2021 12:26 PM DIRECTOR OF INTELLIGENCE): He has had no recurrences since last year; echo normal, So I made no changes He is protected with Warfarin, on tambocor and metoprolol which I would continue Assessment & Plan (08/15/2020 12:39 PM DIRECTOR OF INTELLIGENCE): He has had recurrent episodes of atrial [...] 07/12/2015 Assessment & Plan (07/28/2023 11:47 AM DIRECTOR OF INTELLIGENCE): - 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 then per ID - doxycycline reordered Arthritis 12/17/2009 Hypertension 12/17/2009 Assessment & Plan (08/06/2021 12:26 PM DIRECTOR OF INTELLIGENCE): His BP remains at goal on the BB, so will continue Assessment & Plan (08/15/2020 12:34 PM DIRECTOR OF INTELLIGENCE): His blood pressure is at goal Assessment & Plan (08/17/2019 12:00 PM DIRECTOR OF INTELLIGENCE): His BP remains at goal Assessment & Plan (02/08/2019 1:05 PM CDT): His BP remains at goal Assessment & Plan (08/11/2018 10:26 AM DIRECTOR OF INTELLIGENCE): His BP is at goal Encounters Date Type Department Care Team Description 05/23/2024 Telephone [facility] Gastroenterology [address] [facility] [address] [place] [address] [place] [address] Savanna Romo LPN 04/26/2024 Telephone [facility] Gastroenterology [address] [facility] [address] [place] [address] [place] [address] Savanna Romo LPN from Last 3 Months Immunizations Name Administration Dates Next Due Influenza, Quadrivalent, Merle l Culture-based MDCK, Antibiotic Free, Intramuscular 06/07/2018 Influenza, Trivalent, High D ose, Split, Preservative Free, Intramuscular 06/09/2019,05/11/2017 Pneumococcal Conjugate PCV 13 08/03/2017, 016 Pneumococcal Polysaccharide PPV23 05/10/2013 TD Preservative Free 01/24/2004 Tdap 07/27/2023,05/10/2013 ZOSTER Recombinant 08/22/2019,06/09/2019 Surgical History Surgery Date Site/Laterality Comments UPPER GASTROINTESTINAL ENDOSCOPY COLONOSCOPY REPLACEMENT TOTAL KNEE ONCOLOGIC Bilatera l ROTATOR CUFF REPAIR Right BACK SURGERY x2 WHIPPLE PROCEDURE W/ LAPAROSCOPY SPLENECTOMY, TOTAL ANKLE SURGERY Medical History Medical History Date Comments Atrial fibrillation (CMS/HCC) (HCC) Hyperlipidemia Dysphagia Hypothyroidism Type 2 diabetes mellitus (HCC) Hypertension GERD (gastroesophageal reflux disease) Arthritis Social History Tobacco Use Types Packs/Day Years [...] on file Legal Sex Male 3:18 AM DIRECTOR OF INTELLIGENCE Gender Identity Not on file Sexual Orientation Not on file Obstetrics History Last Filed Vital Signs Vital Sign Reading [...] 01/22/2024 12:49 PM CDT Plan of Treatment Health Maintenance Due Date Last Done Comments Albumin Creatinine Ratio, Urine 1940 Depression Screening 1940 Dilated Eye Exam 1940 Foot Exam 1940 Hepatitis B Screening 1960 Abdominal Aortic Aneurysm (A AA) Screen 10/07/2007 Well Visit 65+ 10/07/2007 Hemoglobin A1C 09/11/2019 03/11/2019 Covid-19 Vaccine (3 - Modern a risk series) 11/13/2020 10/16/2020, 09/13/2020 Lipid Panel 11/13/2021 11/13/2020, 08/03, 03/11/2019, Additional history exists Influenza Vaccine (#1) 2024 9, 06/07/2018, 05/11/2017 eGFR 07/27/2024 07/27/2023, 07/04, 10/21/2016 Fall Risk Assessment 01/21/2025 01/22/2024 DTaP/Tdap/Td Vaccine (3 - Td or Tdap) 07/27/2033 07/27/2023, 05/10/2013, 01/24/2004 Pneumococcal vaccine 65+ Completed 018, 07/31/2016, 05/10/2013 Zoster Vaccine Completed 08/22/2019, 06/09/2019 Procedures Procedure Name Priority Date/Time Associated Diagnosis Comments EGFR STAT 07/27/2023 8:57 AM DIRECTOR OF INTELLIGENCE LIPID PANEL Routine 11/13/2020 8:46 AM CDT HEMOGLOBIN A1C STAT 03/11/2019 12:48 PM CDT from Last 3 Months or Most Recently Relevant to Health Maintenance Results * eGFR (07/27/2023 8:57 AM DIRECTOR OF INTELLIGENCE) eGFR 60 >=60 mL/min/1. 73 m2 [facility] Comment: Interpretive Data Reference Interval Normal ?>/= [...] last reviewed 2021. Blood 07/27/2023 8:57 AM DIRECTOR OF INTELLIGENCE 07/27/2023 9:13 AM DIRECTOR OF INTELLIGENCE us Carlota Blum MD LAB BLOOD ORDERABLES F inal Result Performing Organization Address City/[facility]/ZIP Co de Phone Number AM[facility] Department [place] [address] * Lipid panel (11/13/2020 8:46 AM CDT) [...] LDL-C. Norberto SS et al. TEGAN. 2013;310(19): 0511-5647 (http://education.Silvigen.Goodreads/faq/GSO113) Chol/HDL ratio 3.1 <5.0 (calc) [facility] Non-HDL, (LDL+VLDL) 96 <130 mg/dL (calc) [facility] Comment: For patients with diabetes plus 1 major ASCVD risk factor, treating to a non-HDL-C goal of <100 mg/dL (LDL-C of <70 mg/dL) is considered a therapeutic option. 11/13/2020 8:46 AM CDT 11/13/2020 8:47 AM CDT Narrative [facility] - 11/14/2020 2:24 AM CDT FASTING:YES FASTING: YES us Norberto Cordero DO LAB BLOOD ORDERABLES Final Result [facility] [address] [place] [address] * (ABNORMAL) Hemoglobin A1c (03/11/2019 12:48 PM CDT) Hgb A1C 7.5(H) 4.0 - 5.6 % [facility] Estimated Average Glucose 169 mg/dL [facility] Comment: The ADA recommends reporting an estimated Average Glucose (eAG) with all Hemoglobin A1c results using the equation derived from a study of 507 normal and diabetic adults. ??Minority populations were underrepresented and children were not included. ?? (Diabetes Care 31:5390-1411, 2007). ??The eAG is not equivalent to a fasting glucose. Blood specimen (specimen) 03/11/2019 12:48 PM CDT 03/11/2019 12:59 PM CDT Alvaro Ortez DO LAB BLOOD ORDERABLES Fi nal Result Performing Organization Address City/[facility] de Phone Number [facility] Department [place] [address] from Last 3 Months or Most Recently Relevant to Health Maintenance Insurance MEDICARE SOLUTIONS [employer] MEDICARE [facility] MEDICARE MEDICARE SOLUTIONS MEDICARE SOLUTIONS Advance Directives For more information, please contact: [phone] * Full Code (Latest Code Status on File) Date Activated Date Inactivated Comments 01/22/2024 12:34 PM 01/22/2024 7:05 PM * Full Code Date Activated Date Inactivated Comments 07/27/2023 11:35 AM 07/29/2023 6:04 PM * Full Code Date Activated Date Inactivated Comments 03/11/2019 9:03 PM 03/16/2019 8:04 PM Care Teams Land Resource Specialist Relationship Specialty Start Date End Date Liset Haynes MD PCP - General Family Medicine 08/05/22
--- OUTSIDE RECORDS SUMMARY | 2024-07-24 00:09 | XMS_ITS | Encounter Summary ---
Author Organization [facility] Address [address] [place] [address] Care Team Providers Care Slag Skimmer Name Role Phone Liset Haynes MD Primary Care Provider [phone] Reason for Visit * Auth/Cert (Routine) Specialty Diagnoses / Procedures Referred By Roly reinoso Referred To Contact Diagnoses Dysphagia, unspecified type Dysphagia, unspecified type [R13.10] Procedures [place] ESOPHAGOGASTRODUODENOSCOPY TRANSORAL DIAGNOSTIC EGD w/Endo Flip Referral ID Status Reason Start Date Expiration Date Visits Re quested Visits Authorized [id number] 1 1 Encounter Details Date Type Department Care Team (Late st Contact Info) Description 01/22/2024 1:30 PM CDT - 01/22/2024 2:00 PM CDT Surgery [facility] [address] [place] [address] Taras Soriano MD [address] [place] [address] ESOPHAGEAL BALLOON DISTENTION STUDY DIAGNOSTIC WITH PROVOCATION Surgery Details Date/Time Status Location OR Service Patient Class Case Class Case Type Trauma Case? 01/22/2024 1:30 PM Posted [facility] ENDOSCOPY GI 02 Gastroenterology Outpatient Elective Panel 1 Procedure LRB Anes Op Region Wound Class Comments ESOPHAGEAL BALLOON DISTENTIO N STUDY DIAGNOSTIC WITH PROVOCATION N/A Monitor Anesthesia Care ENDO ADD ON ESOPHAGOGASTRODUODENOSCOPY INJECTION SUBMUCOSAL N/A Choice Surgeon Surgeon Role Service Panel Taras Soriano MD Primary Gastroentero logy 1 documented in this encounter Social History Tobacco [...] on file Legal Sex Male 3:18 AM HEEL SHAPER Gender Identity Not on file Sexual Orientation Not on file documented as of this encounter Last Filed Vital Signs Vital Sign Reading Time Taken Comments Blood Pressure 108/46 01/22/2024 1:55 PM CDT Pulse 63 01/22/2024 1:55 PM CDT Temperature 36.6 ??C (97.8 ??F) 01/22/2024 1 2:49 PM CDT Respiratory Rate 13 01/22/2024 1:55 PM CDT Oxygen Saturation 97% 01/22/2024 1:55 PM CDT Inhaled Oxygen Concentration - - [...] (20 mg total) by mouth daily 04/25/2023 AMES TechnologyTouch Ultra Test strip USE TO TEST BLOOD [...] mg total) by mouth daily 07/11/23 Yes Provider, MD Dee baclofen (LIORESAL) 10 mg tablet take 1 tablet by oral route 3 times every day 04/21/16 Yes Chapo Lo DO doxycycline 100 mg tablet Take 1 tablet/capsule (100 mg total) by mouth every 12 (twelve) hours 04/25/23 Yes Provider, HistoricalMD Farxiga 5 mg tablet Take by mouth daily Yes Provider, HistoricalMD flecainide (TAMBOCOR) 50 mg tablet TAKE 1 TABLET BY MOUTH TWICE A DAY 12/17/23 Yes Collin Rojas MD insulin glargine (LANTUS SOLOSTAR) 100 unit/mL (3 mL) insulin pen inject by subcutaneous route as per insulin protocol Patient taking differently: Inject 44 Units under the skin nightly 04/21/16 Yes Chapo Lo DO insulin lispro (HumaLOG, ADMELOG) 100 unit/mL pen [...] total) by mouth daily 04/21/16 Yes Chapo Lo DO traMADoL (ULTRAM) 50 mg tablet Take 1 tablet (50 mg total) by mouth every 6 (six) hours as needed for pain Yes Dee Barros MD Trelegy Ellipta 200-62.5-25 mcg inhaler Inhale 1 puff daily 06/19/23 Yes Dee Barros MD warfarin (COUMADIN) 5 mg tablet Take 1 tablet (5 mg total) by mouth daily Yes Dee Barros MD albuterol HFA (PROVENTIL HFA,VENTOLIN HFA,PROAIR HFA) 90 [...] 01/22/2024 1:18 PM Admit Type: Outpatient Room: [facility] 2 Date of : 1940 Instrument Name: [id number] [...] * POCT glucose (01/22/2024 1:20 PM CDT) [facility] Glucose, POC 95 70 - 140 mg/dL Comment: For Glucose values <35 mg/dl when Hematocrit is >60 mg/dl,the test may not accurately detect significant hypoglycemia,and testing in the Laboratory should be considered if clinically indicated. Blood 01/22/2024 1:20 PM CDT 01/22/2024 1:20 PM CDT Taras Soriano MD LAB POCT ORDERABLES - DEVICE Final Result [facility] [address] Department [place] [address] * EGD (01/22/2024 1:18 PM CDT) Anatomical Region Laterality Modality Other Narrative Procedure Note Taras Soriano MD - 01/22/2024 1:18 PM CDT ENDOSCOPY LAB Patient Name: Neal Amaro Procedure Date: 01/22/2024 1:18 PM Admit Type: Outpatient Room: Endo 2 Date of : 1940 Instrument Name: [id number] Gender: Male Note Status: Finalized Procedure: Upper [...] 01/22/2024 1:18 PM Scope In: Scope Out: us Taras Soriano MD ENDOSCOPY PROCEDURES Final Result documented in this encounter Visit Diagnoses Diagnosis Dysphagia- Primary Dysphagia, unspecified type documented in this encounter Admitting Diagnoses Diagnosis Dysphagia documented in this encounter Administered Medications Inactive Administered Medications - up to 3 most recent administrations Medication Order MAR Action Action Date Dose Rate Site onabotulinumtoxin A (BOTOX) injection As needed, Starting on Thu01/22/24 at 1350, Intra-Op Given 01/22/2024 1:50 PM CDT 100 Units GI Tract ondansetron (ZOFRAN) injection 4 mg 4 mg, intravenous, Administer over 2 Minutes, Every 6 hours PRN, nausea, vomiting, Starting on Thu01/22/24 at 1234, Pre-Procedure (GI) sodium chloride 0.9% flush 0.5-20 mL 0.5-20 mL, intra-catheter, As needed, line care, Starting on Thu01/22/24 at 1234, Pre-Procedure (GI), Flush volume based on line type and size. Flush before and after each use. , Indications: FlushingIndications:Fl ushing sodium chloride 0.9% infusion 30 mL/hr, intravenous, [...] Count Last Ordered Date First Ordered Date ondansetron (ZOFRAN) injection 4 mg 2 01/21 sodium chloride 0.9% flush 0.5-20 mL 1 01/02 Discharge Count Last Ordered Date First Orde red Date DISCHARGE PATIENT 1 01/22/2024 documented in this encounter Care Teams Slag Skimmer Relationship Specialty Start Date End Date Liset Haynes MD PCP - General Family Medicine 08/05/22 documented as of this encounter
--- OUTSIDE RECORDS SUMMARY | 2024-07-24 00:09 | XMS_ITS | Encounter Summary ---
Author Organization [facility] Address [address] [place] [address] Care Team Providers Care Examiner Rating Clerk Name Role Phone Christopher Diop MD Primary Care Provider [phone] Encounter Details Date Type Department Care Team ([facility] Contact Info) Description 05/18/2017 Orders Only [facility] Oncology and Hematology Aureliano [facility] Marisela [address] [place] [address] Kendall Wills MD [facility] [employer] [address] [place] [address] Chronic anemia; Other chronic pulmonary embolism without acute cor [...] Encounters Date Type Department Care Team ([facility] Contact Info) Description 01/10/2025 11:30 AM CDT Office Visit [facility] Oncology and Hematology Aureliano [facility] Marisela Phelps [address] [place] [address] Kendall Wills MD [facility] T[address] [place] [address] documented as of this encounter Procedures Procedure Name Priority Date/Time Associated Diagnosis Comments IRON, TIBC, AND PERCENT SATURATION Routine 05/18/2017 Chronic anemia CBC WITH DIFFERENTIAL Routine 05/18/2017 Chronic anemia US VENOUS DOPPLER LEG LEFT Routine 05/18/2017 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 BASIC METABOLIC PANEL Routine 05/18/2017 Chronic anemia documented in this encounter Results * IRON, TIBC, AND PERCENT SATURATION (05/18/2017) Blood Kendall Wills MD CHEMISTRY ORDERABLES Performing Organization Address [facility] Co de Phone Number EXTERNAL LAB * (ABNORMAL) CBC WITH DIFFERENTIAL (05/18/2017) Blood Kendall Wills MD HEMATOLOGY ORDERABLE S Performing Organization Address [facility] Co de Phone Number EXTERNAL LAB * (ABNORMAL) BASIC METABOLIC PANEL (05/18/2017) Blood Kendall Wills MD CHEMISTRY ORDERABLES Performing Organization Address [facility] Co de Phone Number EXTERNAL LAB * US VENOUS DOPPLER LEG LEFT (05/18/2017) Anatomical Region Laterality Modality Lower Extremity Other Kendall Wills MD US ORDERABLES documented in this encounter Visit Diagnoses Diagnosis Chronic anemia Anemia, unspecified 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
--- OUTSIDE RECORDS SUMMARY | 2024-07-24 00:09 | XMS_ITS | Encounter Summary ---
Author Organization [facility] Address [address] [place] [address] Care Team Providers Care Paralegal Assistant Name Role Phone Liset Haynes MD Primary Care Provider [phone] Encounter Details Date Type Department Care Team ([facility] st Contact Info) Description 01/04/[address] 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 * Telephone Encounter - Josee Lopez - 01/04/2024 8:53 AM CDT Mireya called from Dr. Soriano office called to report pt is scheduled for a procedure on 01/22/24. They sent a letter through [employer] on 12/08 but will also be faxing it to RN fax. Contact: documented in this encounter Plan of Treatment Not on file documented as of this encounter Visit Diagnoses Not on filedocumented in this encounter Care Teams Paralegal Assistant Relationship Specialty Start Date End Date Liset Haynes MD PCP - General Family Medicine 08/05/22 documented as of this encounter
--- OUTSIDE RECORDS SUMMARY | 2024-07-24 00:09 | XMS_ITS | Encounter Summary ---
Author Organization [facility] Address [address] [place] [address] Care Team Providers Care Administrative Clerk Name Role Phone Christopher Diop MD Primary Care Provider [phone] Reason for Visit * Reason Comments Follow Up Encounter Details Date Type Department Care Team ([facility] st Contact Info) Description 03/19/2017 11:15 AM CDT Office Visit [facility] Oncology and Hematology - Aureliano [address] [facility] [address] [place] [address] Kendall Wills MD [address] [facility] [address] [place] [address] Chronic anemia; Bruising; Edema, unspecified type; Obesity (BMI 35.0-39.9 without comorbidity) Social History Tobacco Use Types Packs/Day Years [...] Sign Reading Time Taken Comments Blood Pressure 87/57 03/19/2017 11:46 AM CDT Pulse 69 03/19/2017 11:46 AM CDT Temperature 36.6 ??C (97.8 ??F) 03/19/2017 11:46 AM C DT Respiratory Rate 11 03/19/2017 11:46 AM CDT Oxygen Saturation - - Inhaled Oxygen Concentration - - Weight 154.7 kg (341 lb) 03/19/2017 11:46 AM CDT Height 188 cm (6' 2 ) 03/19/2017 11:46 AM CDT Body Mass Index 43.78 03/19/2017 11:46 AM CDT documented in this encounter Progress Notes * Kendall Wills MD - 03/19/2017 1:18 PM CDT HEMATOLOGY / ONCOLOGY PROGRESS NOTE [...] by urologist in the hospital. Interval History: He still complained of occasional hematuria and the most recent even was 4 days ago. Patient is taking Xarelto as well. Review of system Constitutional: No fever; no [...] Meds:@MEDSSCHEDULED@ Continuous Infusions:@MEDSINFUSIONS@ Data Review: [facility] @IMAGEIMP@ Assessment: Plan: Patient Active Problem List Diagnosis Date Noted ??? Chronic anemia 03/19/2017 ??? Bruising 03/19/2017 ??? Edema 03/19/2017 ??? Obesity (BMI 35.0-39.9 without comorbidity) 03/19/2017 Microcytic anemia with normal WBC and platelet count. Workup showed iron deficiency of unclear etiology. Patient has a history of intermittent hematuria. EGD and colonoscopy came back unremarkable except some benign polyps and gastritis. There was no evidence of active bleeding. Patient has received IV iron infusion in the hospital. We will repeat iron studies and B12 level. Patient will continueiron infusion with B12 injection as an outpatient. I have instructed him to make appointment with urology for ongoing hematuria. I have also instructed him to stop Xarelto if there is recurrence of hematuria. Hypercoagulable state with history of pulmonary [...] Xarelto. At this time patient had intermittent hematuria and I have instructed him to stop Xarelto if his hematuria returns. Patient is also going to see urologist. I will see him back in one month with repeat CBC and iron studies. ? 03/19/2017 Kendall Wills MD * Nisha Arellano - 03/19/2017 11:53 AM CDT Experiences light head and shortness of breath during walking documented in this encounter Miscellaneous Notes * Addendum Note - Sisi Martin RN - 04/23/2017 8:13 AM CDTAddended by: SISI MARTIN on: 04/23/2017 08:13 AM Modules accepted: Orders documented in this encounter Plan of Treatment Upcoming Encounters Date Type Department Care Team (Late st Contact Info) Description 01/10/2025 11:30 AM CDT Office Visit [facility] Oncology and Hematology - Aureliano [address] [facility] [address] [place] [address] Kendall Wills MD [address] [facility] [address] [place] [address] documented as of this encounter Procedures Procedure Name Priority Date/Time Associated Diagnosis Comments IRON, TIBC, AND PERCENT SATURATION Routine 04/23/2017 Chronic anemia Bruising Edema, unspecified type Obesity (BMI 35.0-39.9 without comorbidity) CBC WITH DIFFERENTIAL Routine 04/23/2017 Chronic anemia Bruising Edema, unspecified type Obesity (BMI 35.0-39.9 without comorbidity) FERRITIN Routine 04/23/2017 Chronic anemia Bruising Edema, unspecified type Obesity (BMI 35.0-39.9 without comorbidity) BASIC METABOLIC PANEL Routine 04/23/2017 Chronic anemia Bruising Edema, unspecified type Obesity (BMI 35.0-39.9 without comorbidity) VITAMIN B12 AND FOLATE Routine 03/23/2017 Chronic anemia IRON, TIBC, AND PERCENT SATURATION Routine 03/19/2017 Chronic anemia CBC WITH DIFFERENTIAL Routine 03/19/2017 Chronic anemia FERRITIN Routine 03/19/2017 Chronic anemia BASIC METABOLIC PANEL Routine 03/19/2017 Chronic anemia documented in this encounter Results * (ABNORMAL) BASIC METABOLIC PANEL (04/23/2017) Blood Kendall Wills MD CHEMISTRY ORDERABLES EXTERNAL LAB * FERRITIN (04/23/2017) Blood Kendall Wills MD CHEMISTRY ORDERABLES Performing Organization Address City/[facility]/ZIP Co de Phone Number EXTERNAL LAB * (ABNORMAL) IRON, TIBC, AND PERCENT SATURATION (04/23/2017) Blood Kendall Wills MD CHEMISTRY ORDERABLES Performing Organization Address [facility] Co de Phone Number EXTERNAL LAB * (ABNORMAL) CBC WITH DIFFERENTIAL (04/23/2017) Blood Kendall Wills MD HEMATOLOGY ORDERABLE S Performing Organization Address [facility] Co de Phone Number EXTERNAL LAB * VITAMIN B12 AND FOLATE (03/23/2017) Blood Kendall Wills MD CHEMISTRY ORDERABLES Performing Organization Address [facility] de Phone Number EXTERNAL LAB * (ABNORMAL) IRON, TIBC, AND PERCENT SATURATION (03/19/2017) Blood Kendall Wills MD CHEMISTRY ORDERABLES Performing Organization Address [facility] de Phone Number EXTERNAL LAB * FERRITIN (03/19/2017) Blood Kendall Wills MD CHEMISTRY ORDERABLES Performing Organization Address [facility] de Phone Number EXTERNAL LAB * (ABNORMAL) CBC WITH DIFFERENTIAL (03/19/2017) Blood Kendall Wills MD HEMATOLOGY ORDERABLE S Performing Organization Address [facility] Co de Phone Number EXTERNAL LAB * (ABNORMAL) BASIC METABOLIC PANEL (03/19/2017) Blood Kendall Wills MD CHEMISTRY ORDERABLES Performing Organization Address [facility] Co de Phone Number EXTERNAL LAB documented in this encounter Visit Diagnoses Diagnosis Chronic anemia Anemia, unspecified Bruising Contusion of unspecified site Edema, unspecified type Obesity (BMI 35.0-39.9 without comorbidity) Obesity, unspecified documented in this encounter Care Teams Administrative Clerk Relationship Specialty Start Date End Date Christopher iDop MD [address] [place] [id number] PCP - General Family Practice 03/19/17 01/05/23 documented as of this encounter
--- OUTSIDE RECORDS SUMMARY | 2024-07-24 00:10 | XMS_ITS | Encounter Summary ---
Author Organization [facility] Address [address] [place] [address] Phone Care Team Providers Care Matching Machine Operator Name Role Phone Liset Haynes MD Primary Care Provider [phone] Encounter Details Date Type Department Care Team (Late st Contact Info) Description 09/17/2023 Telephone [facility] Neurosurgery [address] [facility] 6th [place] [address] [place] [address] Duke Rivas MD [address] [place] [address] Social History Tobacco Use Types Packs/Day Years [...] on file 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 SION TRAFFIC SUPERINTENDENT documented in this encounter Plan of Treatment Not on file documented as of this encounter Visit Diagnoses Not on filedocumented in this encounter Care Teams Matching Machine Operator Relationship Specialty Start Date End Date Liset Haynes MD PCP - General Family Medicine 08/05/22 documented as of this encounter
--- OUTSIDE RECORDS SUMMARY | 2024-07-24 00:10 | XMS_ITS | Encounter Summary ---
Author Organization [facility] Address [address] [place] [address] Phone Care Team Providers Care Bounty Hunter Name Role Phone Liset Haynes MD Primary Care Provider [phone] Reason for Visit * Reason Onset Date Comments Test Results 09/08/2023 Encounter Details Date Type Department Care Team (Late st Contact Info) Description 09/08/[address] [facility] Gastroenterology [facility] 12th [place] [address] [place] [address] Savanna Romo LPN Test Results Social History Tobacco Use Types Packs/Day Years Used Date Smoking Tobacco: Former Smokeless Tobacco: Never Alcohol Use Standard Drinks/Week Comments No 0 (1 standard drink = 0.6 oz pur e alcohol) Personal Safety Answer Date Recorded Have you ever been in or are you currently in a harmful physical or emotional relationship or is someone making you feel afraid or unsafe? 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 Recommend further evaluating with EGD with endo-FLIP. Please reach out to Alina Martin to have this test scheduled with Dr. Soriano. Thanks. Spoke w - pt currently in Hospital w covid, flu and pneumonia - was [facility] and may go to rehab prior to d/c back home. Discussed results and recommendations. Understand Dr Soriano's team will be in touch w her at a later date to discuss testing/scheduling options. Update sent to Dr Corey and Alina - reminder set LER LER documented in this encounter Plan of Treatment Not on file documented as of this encounter Visit Diagnoses Not on filedocumented in this encounter Care Teams Bounty Hunter Relationship Specialty Start Date End Date Liset Haynes MD PCP - General Family Medicine 08/05/22 documented as of this encounter
--- OUTSIDE RECORDS SUMMARY | 2024-07-24 00:10 | XMS_ITS | Encounter Summary ---
Author Organization [facility] Address [address] [facility] [address] [place] [address] Care Team Providers Care Remotely Operated Vehicle Name Role Phone Jessica Arroyo MD Primary Care Provider [phone] Reason for Referral * Consultation (Routine) - Closed Specialty Diagnoses / Procedures Referred By Contac t Referred To Contact Cardiology Diagnoses Atrial fibrillation, currently in sinus rhythm Pure hypercholesterolemia Norberto Cordero DO [address] [place] [address] Phone: tel: fax: Collin Rojas MD [address] [place] [address] Phone: tel: fax: Referral ID Status Reason Start Date Expiration Date V isits Requested Visits Authorized [id number] Closed Specialty Services Required 08/19/2021 09/18/2022 1 1 Question Answer Please select the performing region: [facility] [[id number]] Please select the performing department: [facility] [[id number]] To provider: COLLIN ROJAS [[id number]] # of visits: [address] Cordero 08/2022. Dr. Cordero retiring in 07/2023. All records in [facility] chart. DENTIAL SOLAR SALES CONSULTANT Reason for Visit * Reason Onset Date Comments transfer of care 08/19/2021 Encounter Details Date Type Department Care Team (Late st Contact Info) Description 08/19/2021 Telephone [facility] Cardiology [address] [facility] [address] [place] [address] Erika Jimenez transfer of care Social History Tobacco Use Types Packs/Day Years Used Date Smoking Tobacco: Former Smokeless Tobacco: Never Alcohol Use Standard Drinks/Week Comments No 0 (1 standard drink = 0.6 oz pur e alcohol) Sex and Gender Information Value Date Recorded Sex Assigned at Not on file Legal Sex Male 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 Miller, office needs pt records and referral from Dr. Cordero officeprior to seeing pt. Amb order placed and sent to the DENTIAL SOLAR SALES CONSULTANT documented in this encounter Plan of Treatment Scheduled Referrals Name Type Priority Associated Diagnoses Orde r Schedule Ambulatory referral to Cardiology Outpatient Referral Routine Atrial fibrillation, currently in sinus rhythm Pure hypercholesterolemia Expected: 09/02/2021 (Approximate), Expires: 08/19/2022 documented as of this encounter Visit Diagnoses Diagnosis Atrial fibrillation, currently in sinus rhythm- Primary Pure hypercholesterolemia documented in this encounter Care Teams Remotely Operated Vehicle Relationship Specialty Start Date End Date Jessica Arroyo MD PCP - General Family Practice 08/11/18 08/04/22 documented as of this encounter
--- OUTSIDE RECORDS SUMMARY | 2024-07-24 00:10 | XMS_ITS | Encounter Summary ---
Author Organization [facility] Address [address] [place] [address] Care Team Providers Care Radio Dispatcher Name Role Phone Liset Haynes MD Primary Care Provider [phone] Reason for Referral * Gastroenterology (Routine) - Closed Specialty Diagnoses / Procedures Referred By Roly reinoso Referred To Contact Diagnoses Esophageal dysphagia Procedures High resolution esophageal motility (manometry) - Leora Rosas MD [address] [address] Phone: tel: fax: [address] [address] Referral ID Status Reason Start Date Expiration Date Visits Re quested Visits Authorized [id number] Closed 06/16/2023 07/15/2024 1 1 IDE CONTRACTOR SALES Reason for Visit * Gastroenterology (Routine) - Closed Specialty Diagnoses / Procedures Referred By Roly reinoso Referred To Contact Diagnoses Esophageal dysphagia Procedures High resolution esophageal motility (manometry) - Leora Rosas MD [address] [address] Phone: tel: fax: [address] [phone] Referral ID Status Reason Start Date Expiration Date Visits Re quested Visits Authorized [id number] Closed 06/16/2023 07/15/2024 1 1 Encounter Details Date Type Department Care Team (Latest Contact Info) Description 09/01/2023 8:40 AM OUTSIDE CONTRACTOR SALES - 09/01/2023 11:59 PM OUTSIDE CONTRACTOR SALES Hospital Encounter [facility] [address] [facility] [address] [place] [address] Esophageal dysphagia Discharge Disposition: Discharge to home or self [...] on file Legal Sex Male 3:18 AM OUTSIDE CONTRACTOR SALES Gender Identity Not on file Sexual Orientation Not on file documented as of this encounter Last Filed Vital Signs Vital Sign Reading Time Taken Comments Blood Pressure 130/56 09/01/2023 9:34 AM OUTSIDE CONTRACTOR SALES Pulse 68 09/01/2023 9:34 AM OUTSIDE CONTRACTOR SALES Temperature - - Respiratory Rate 20 09/01/2023 9:34 AM OUTSIDE CONTRACTOR SALES Oxygen Saturation - - Inhaled Oxygen Concentration - - Weight 158.8 kg (350 lb) 09/01/2023 9:34 AM OUTSIDE CONTRACTOR SALES Height 188 cm (6' 2 ) 09/01/2023 9:34 AM OUTSIDE CONTRACTOR SALES Body Mass Index 44.94 09/01/2023 9:34 AM OUTSIDE CONTRACTOR SALES documented in this encounter Discharge Instructions * Discharge Instructions* Pallavi Odell RN - 09/01/2023 9:15 AM OUTSIDE CONTRACTOR SALES ..Resume normal activities you were doing at home. Resume diet you were on at home Resume home medications For questions or concerns please call the Motility Nurse during normal business hours (7:00 am to 3:30 pm) at [phone] Patient received copy and understands the discharge insructions. IDE CONTRACTOR SALES documented in this encounter Medications at Time [...] 5 mg tablet Take by mouth daily insulin glargine (LANTUS SOLOSTAR) 100 unit/mL (3 [...] same meal each day 0 0 04/21/2016 Trelegy Ellipta 200-62.5-25 mcg inhaler Inhale 1 puff daily 06/19/2023 triamcinolone (KENALOG) 0.1 % cream Apply topically 2 (two) times a day 05/26/2023 flecainide (TAMBOCOR) 50 mg tablet TAKE 1 TABLET BY MOUTH TWICE A DAY 180 tablet 06/26/2023 4 documented as of this encounter Discharge Disposition Disposition Code Departure Means Destination Discharge to home or self care documented in this encounter Plan of Treatment Not on file documented as of this encounter Procedures Procedure Name Priority Date/Time Associated Diagnosis Comments HIGH RESOLUTION ESOPHAGEAL MOTILITY (MANOMETRY) Routine 09/01/2023 Esophageal dysphagia documented in this encounter Results * High resolution esophageal motility (manometry) - (09/01/2023) Anatomical Region Laterality Modality Other Leora Rosas MD GI LAB PROCEDURE O RDERABLES Final Result documented in this encounter Visit Diagnoses Diagnosis Esophageal dysphagia Dysphagia, pharyngoesophageal phase documented in this encounter Administered Medications Inactive Administered Medications - up to 3 most recent administrations Medication Order MAR Action Action Date Dose Rate Site lidocaine viscous (XYLOCAINE) 2 % solution 15 mL 15 mL, topical, Once, On Thu09/01/23 at 0945, For 1 dose, Pre-Op Given 09/01/2023 9:39 AM OUTSIDE CONTRACTOR SALES 15 mL Anter ior Nares documented in this encounter Orders Medications Ordered That Dell ht Not Have Been Administered Count Last Ordered Date First Ordered Date lidocaine viscous (XYLOCAINE ) 2 % solution 15 mL 1 09/01/2023 documented in this encounter Care Teams Radio Dispatcher Relationship Specialty Start Date End Date Liset Haynes MD PCP - General Family Medicine 08/05/22 documented as of this encounter
--- OUTSIDE RECORDS SUMMARY | 2024-07-24 00:10 | XMS_ITS | Encounter Summary ---
Author Organization [facility] Address [address] [place] [address] Phone Care Team Providers Care Monitor And Storage Bin Tender Name Role Phone Jessica Arroyo MD Primary Care Provider [phone] Encounter Details Date Type Department Care Team (Late st Contact Info) Description 04/07/2019 Telephone [facility] Orthopaedic Surgery [address] [facility] 6th [place] [address] [place] [address] Ruth Ann Anderson, RASHAAD [address] [facility] [address] [place] [address] Social History Tobacco Use Types Packs/Day Years Used Date Smoking Tobacco: Former Smokeless Tobacco: Never Alcohol Use Standard Drinks/Week Comments No 0 (1 standard drink = 0.6 oz pur e alcohol) Sex and Gender Information Value Date Recorded Sex Assigned at Not on file 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 Per cancelled appt note, facility does not have transportation * Telephone Encounter - Ruth Ann Anderson NP - 04/07/2019 8:13 AM CDT Patient cancelled both [facility] and my appointment- can we reschedule please and thank you- ruth ann documented in this encounter Plan of Treatment Not on file documented as of this encounter Visit Diagnoses Not on filedocumented in this encounter Care Teams Monitor And Storage Bin Tender Relationship Specialty Start Date End Date Jessica Arroyo MD PCP - General Family Practice 08/11/18 08/04/22 documented as of this encounter
--- OUTSIDE RECORDS SUMMARY | 2024-07-24 00:10 | XMS_ITS | Encounter Summary ---
Author Organization [facility] Address [address] [place] [address] Phone Care Team Providers Care Fashion Consultant Name Role Phone Liset Haynes MD Primary Care Provider Reason for Referral * Gastroenterology (Routine) - Closed Specialty Diagnoses / Procedures Referred By Contac t Referred To Contact Diagnoses Esophageal dysphagia Procedures High resolution esophageal motility (manometry) - Leora Rosas MD [address] [place] [address] Phone: tel: fax: [address] [phone] Referral ID Status Reason Start Date Expiration Date Visits Re quested Visits Authorized [id number] Closed 06/16/2023 07/15/2024 1 1 ONALIZED LIVING MANAGER NURSE Encounter Details Date Type Department Care Team (Late st Contact Info) Description 06/16/2023 Orders Only [facility] Gastroenterology [address] [facility] 12th [place] [address] [place] [id number] Savanna Romo LPN Esophageal dysphagia (Primary Dx) Social History Tobacco Use Types Packs/Day Years Used Date Smoking Tobacco: Former Smokeless Tobacco: Never Alcohol Use Standard Drinks/Week Comments No 0 (1 standard drink = 0.6 oz pur e alcohol) Sex and Gender Information Value Date Recorded Sex Assigned at Not on file Legal Sex Male 3:18 AM 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 Leora Rosas MD Clark, Bethany, LPN Please order esophageal manometry for dysphagia. Thanks. Order placed and f/u reminder set ONALIZED LIVING MANAGER NURSE documented in this encounter Plan of Treatment Not on file documented as of this encounter Results * High resolution esophageal motility (manometry) - (09/01/2023) Anatomical Region Laterality Modality Other Leora Rosas MD GI LAB PROCEDURE O RDERABLES Final Result documented in this encounter Visit Diagnoses Diagnosis Esophageal dysphagia- Primary Dysphagia, pharyngoesophageal phase documented in this encounter Care Teams Fashion Consultant Relationship Specialty Start Date End Date Liset Haynes MD PCP - General Family Medicine 08/05/22 documented as of this encounter
--- OUTSIDE RECORDS SUMMARY | 2024-07-24 00:10 | XMS_ITS | Encounter Summary ---
Author Organization [facility] Address [address] [place] [address] Phone Care Team Providers Care Cutter Plastics Rolls Name Role Phone Liset Haynes MD Primary Care Provider [phone] Reason for Visit * Reason Onset Date Comments GI Preprocedure 09/17/2023 Encounter Details Date Type Department Care Team (Late st Contact Info) Description 09/17/2023 Telephone [facility] Gastroenterology [facility] 12th [place] [address] [place] [address] Lucrecia Soares LPN GI Preprocedure Social History Tobacco Use Types Packs/Day Years [...] on file 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 Wt Readings from Last 1 Encounters: 09/01/23 (!) 158.8 kg (350 lb) [] Patient had GI procedure/CPAP clinic/GI clinic <30 days (if Yes, no medical screening questions needed unless new clinical issues in last 30 days) Medical screening questions: BMI/Weight: NA CARDIOVASCULAR: None RESPIRATORY/LUNG: COPD/asthma- If severe (FEV1 < 50% of predicted) or continuous O2 no SC. RENAL/LIVER/GI: None BLEEDING/CLOTTING: None NEUROLOGICAL: None ENDOCRINE: Diabetes- No BG above 250 or AIC >10 for [facility]. No BG =>400 for [facility]. Bg>300 at [facility] may get rescheduled PRIOR PROCEDURE ISSUES: None SOLAR INSTALLATION TECHNICIAN/: NA IMPLANTS.: None Notes: DIABETIC MEDS Y/N: Yes [x]Yes- Discuss diabetes medication management with prescribing physician Pt to discuss Humalog with prescribing physician DIALYSIS Y/N: No/NA []HD- Schedule on non-HD day, see protocol []PD- Drain PD fluid AM of procedure, if colonoscopy order AB ppx, see protocol PACEMAKER/ICD Y/N: No/NA Device info: Last documented device check: Any shocks since last cards visit (if yes must see cardiology for procedure clearance): BLOOD THINNERS/ANTICOAG/ANTIPLATELET (BESIDES ASA) Medication: NONE INFORMATION REQUESTED []Imaging: []Medical Progress Note/H&P []Medication list []Other: PATIENT OPTIMIZATION []Physician reviewing escalation: []CPAP: Date scheduled: Outcome : [] Location limitations: Scheduling Scheduling location limitations: Vp Of Digital Marketing needed [x] NA Language: POA [x] NA Name: SPECIAL PROCEDURE INSTRUCTIONS Scheduling Notes Procedure information Date of procedure: 10/09/2023 Time of procedure: 1145 Arrival time: 1245 Location: [facility] Proceduralist: Dr. Soriano Instructions Method of instructions: Mailed Copy [x]Confirmation of ride/breakdown person []Post anesthesia restrictions given [x]NPO Instructions: []Diet Instructions: []Take non-blood thinner prescription meds that morning [x]Bring med list, photo ID, insurance card, no valuables []Bring COVID vaccination card (if vaccinated) Bowel Prep Prep prescribed: NA Method of Bowel Prep (RX): NA WORKER documented in this encounter Plan of Treatment Not on file documented as of this encounter Visit Diagnoses Diagnosis Dysphagia, unspecified type- Primary documented in this encounter Care Teams Cutter Plastics Rolls Relationship Specialty Start Date End Date Liset Haynes MD PCP - General Family Medicine 08/05/22 documented as of this encounter
--- OUTSIDE RECORDS SUMMARY | 2024-07-24 00:10 | XMS_ITS | Encounter Summary ---
Author Organization [facility] Address [address] [place] [address] Phone Care Team Providers Care Gas Operation Manager Name Role Phone Liset Haynes MD Primary Care Provider [phone] Reason for Visit * Reason Onset Date Comments Endo Flip R/s 11/02/2023 Encounter Details Date Type Department Care Team (Late st Contact Info) Description 11/02/2023 Telephone [facility] Gastroenterology [address] [place] [address] 12th [place] [address] [place] [address] Lucrecia Soares LPN Endo Flip R/s Social History Tobacco Use Types Packs/Day Years [...] on file 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 Soriano as he was in [facility] with blood clots in the lung. Pt was taken off of the warfarin and then developed the clots. Spoke with today and she states that pt is not wanting to discontinue the warfarin for the procedure and will call back if and when the decide to schedule the procedure. Pt has all of the information to call and schedule at a later date. documented in this encounter Plan of Treatment Not on file documented as of this encounter Visit Diagnoses Not on filedocumented in this encounter Care Teams Gas Operation Manager Relationship Specialty Start Date End Date Liset Haynes MD PCP - General Family Medicine 08/05/22 documented as of this encounter
--- OUTSIDE RECORDS SUMMARY | 2024-07-24 00:10 | XMS_ITS | Encounter Summary ---
Author Organization [facility] [employer] [facility] Address [address] [place] [address] Phone Care Team Providers Care Longwall Machine Operator Helper Name Role Phone Liset Haynes MD Primary Care Provider [phone] Reason for Visit * Consultation (Routine) - Closed Specialty Diagnoses / Procedures Referred By Roly reinoso Referred To Contact Gastroenterology Diagnoses Dyskinesia of esophagus Khushi Escamilla PA [address] [place] [address] Phone: tel: fax: [facility] (All Locations) Referral ID Status Reason Start Date Expiration Date V isits Requested Visits Authorized [id number] Closed Specialty Services Required 10/02/2022 11/01/2023 12 12 Encounter Details Date Type Department Care Team (Late st Contact Info) Description 06/16/2023 9:30 AM MANAGER QA Office Visit [facility] Gastroenterology [address] [facility] 12th [place] [address] [place] [address] Leora Rosas MD [address] [place] [address] Esophageal dysphagia Social History Tobacco Use Types Packs/Day Years Used Date Smoking Tobacco: Former Smokeless Tobacco: Never Tobacco Cessation:Counseling Given: Not Answered Alcohol Use Standard Drinks/Week Comments No 0 (1 standard drink = 0.6 oz pur e alcohol) Sex and Gender Information Value Date Recorded Sex Assigned at Not on file Legal Sex Male 3:18 AM MANAGER QA Gender Identity Not on file Sexual Orientation Not on file documented as of this encounter Last Filed Vital Signs Vital Sign Reading Time Taken Comments Blood Pressure 118/76 06/16/2023 9:09 AM MANAGER QA Pulse 60 06/16/2023 9:09 AM MANAGER QA Temperature 36.3 ??C (97.4 ??F) 06/16/2023 9:09 AM CS T Respiratory Rate - - Oxygen Saturation - - Inhaled Oxygen Concentration - - Weight 159.7 kg (352 lb) 06/16/2023 9:09 AM MANAGER QA Height 188 cm (6' 2 ) 06/16/2023 9:09 AM MANAGER QA Body Mass Index 45.19 06/16/2023 9:09 AM MANAGER QA documented in this encounter Patient Instructions * Patient Instructions* Leora Rosas MD - 06/16/2023 9:30 AM MANAGER QA Schedule an esophageal manometry at [facility]. GER QA documented in this encounter Progress Notes * Leora Rosas MD - 06/16/2023 9:30 AM CST Images from the original note were not included. [facility] DIV[facility] OF GASTROENTEROLOGY Clinic Address: [address] [place] [address], [address] [place] [address] Mailing Address: [facility] [address] [place] [id number] [id number] Consult Note NAME: Neal Amaro : 1940 DOS: 06/16/23 Reason for referral: The patient is seen for further opinion regarding dysphagia. Consult requested by: Khushi Escamilla PA Primary Care Physician: Liset Haynes MD Subjective Chief complaint: dysphagia. HPI Mr. Amaro is a 82 y.o. male with history of DM, HTN, afib, history of splenectomy, history of colonic polyps, hypothyroidism who presents today for an initial evaluation of dysphagia. The patient reports problems with swallowing for the past few years. He feels food gets stuck. It occurs a few times a week. It becomes more frequent. He notes infrequent food regurgitation. Denies heartburn. No change in weight. No food restriction. No need to modify the way he eats. Per OSH note, coughing after eating. Barium esophagogram Sep 2022. Esophageal dysphagia with weakening of the primary and secondary peristaltic waves in the mid esophagus and multiple tertiary contractions in the distal esophagus. Single episodes of MARIO of a minimal amount of contrast in the distal esophagus with water siphon without additional reflux observed with provocative maneuvers. EGD 11/16/2017 Hypopharynx: Normal Esophagus: Normal. GE junction was seen at 41cm. A regular Z line was seen. Stomach: Four antral polyps were seen of various sizes from 2mm to 5mm were seen. These were hyperplastic when biopsied in 07/2017 at [facility]. There were also seen in an area with prior gastric ulcer seen in 03/2017. These are probably inflammatory polyps and does not need removal unless the biopsies from today dictate otherwise. A single 1mm white based gastric fundic ulcer was seen with surrounding erythema. This was biopsied. Prior gastric biopsies at [facility] [facility] were negative for H pylori, so no additional biopsies for H pylori were taken today. The fundic ulcers are also better from what been seen in 07/2017 as there were four ulcers at that time and now there is only one. Duodenum: Normal bulb and 2nd portion. Stomach, ???ulcer?? , endoscopic biopsy: 1. Erosion 2. Acute chronic inflammation, mild 3. Reactive epithelial changes, mild Stomach, ???polyp?? , endoscopic biopsy: 1. Hyperplastic polyp (multiple fragments) 2. 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) Dyspnea Pure hypercholesterolemia Morbid obesity with BMI of 45.0-49.9, adult (HCC) Pulmonary embolism without acute cor pulmonale (HCC) Arthritis Hypertension Pulmonary embolism (HCC) Paroxysmal atrial fibrillation (CMS/HCC) (HCC) Benign paroxysmal positional vertigo Metastatic neoplasm (HCC) Osteomyelitis of spine (CMS/HCC) (HCC) Hyperlipidemia associated with type 2 diabetes mellitus (HCC) Closed fracture of left distal fibula Acute pain due to trauma Type 2 diabetes mellitus, with long-term current use of insulin (HCC) Bruising Chronic anemia Edema Presence of IVC filter Past Medical History: Diagnosis Date Atrial fibrillation (CMS/HCC) (HCC) Hyperlipidemia History reviewed. No pertinent surgical history. Current Outpatient Medications: acetaminophen 500 mg capsule, Take 2 capsules (1,000 mg total) by mouth every 6 (six) hours, Disp: 30 tablet, Rfl: atorvastatin (LIPITOR) 40 mg tablet, TAKE 1 TABLET BY MOUTH EVERY DAY, Disp: 90 tablet, Rfl: 3 baclofen (LIORESAL) 10 mg tablet, take 1 tablet by oral route 3 times every day, Disp: 0, Rfl: 0 cholecalciferol (VITAMIN D3) 1,000 unit capsule, take 1 Capsule by Oral route 2 times every day, Disp: 0, Rfl: 0 doxycycline (doxycycline hyclate) 100 mg capsule, take 1 capsule by oral route 2 times every day, Disp: 0, Rfl: 0 flecainide (TAMBOCOR) 50 mg tablet, Take 1 tablet (50 mg total) by mouth 2 (two) times a day, Disp:180 tablet, Rfl: 1 insulin glargine (LANTUS SOLOSTAR) 100 unit/mL (3 mL) insulin pen, inject by subcutaneous route as per insulin protocol, Disp: 0 Syringe, Rfl: 0 insulin lispro (HumaLOG) 100 unit/mL cartridge, inject by subcutaneous route per prescriber's instructions. Insulin dosing requires individualization., Disp: 0 Cartridge, Rfl: 0 levothyroxine (SYNTHROID) 50 mcg tablet, Take 1 tablet (50 mcg total) by mouth daily, Disp: , Rfl: metoprolol (LOPRESSOR) 25 mg tablet, 1/2 tab bid, Disp: 90, Rfl: 3 pregabalin (LYRICA) 75 mg capsule, take 1 capsule by oral route 3 times every day, Disp: 0, Rfl: 0 tamsulosin (FLOMAX) 0.4 mg capsule,extended release 24hr, take 1 capsule by oral route every day 1/2 hour following the same meal each day, Disp: 0, Rfl: 0 Trelegy Ellipta 100-62.5-25 mcg inhaler, USE 1 INHALATION DAILY, Disp: , Rfl: warfarin (COUMADIN) 3 mg tablet, Take 1 tablet (3 mg total) by mouth daily, Disp: , Rfl: benzonatate (TESSALON) 200 mg capsule, , Disp: , Rfl: furosemide (LASIX) 20 mg tablet, take 1 tablet by oral route everyday and as needed (Patient not taking: Reported on 08/05/2022), Disp: 60, Rfl: 4 Allergies Allergen Reactions Adhesive Tape-Silicones Flushing (skin) Family History Family history unknown: Yes Social History Tobacco Use Smoking status: Former Smokeless tobacco: Never Substance and Sexual Activity Drug use: None Sexual activity: None Alcohol Use: Not on file ROS As outlined in HPI. All other systems negative. Objective Vital Signs BP 118/76 (BP Location: Left arm, Patient Position: Sitting) Pulse 60 Temp 36.3 ??C (97.4 ??F) (Oral) Ht 188 cm (6' 2 ) Wt (!) 159.7 kg (352 lb) BMI 45.19 kg/m?? Physical Exam GENERAL: Chronically ill, sitting in wheelchair, in no acute distress. HEENT: Normocephalic atraumatic, Sclerae anicteric. NECK: Supple without lymphadenopathy. No JVD. LUNGS: Clear to auscultation bilaterally. CARDIOVASCULAR: Regular rate and rhythm with no murmur. ABDOMEN: soft, non-tender; bowel sounds normal; no masses, no organomegaly EXTREMITIES: No clubbing, cyanosis or edema, or evident deformity. SKIN: No rash or jaundice. NEUROLOGIC: Grossly nonfocal on simple observation with normal insight, memory, affect, and orientation, and no focal weakness evident. PSYCHIATRIC: Normal affect Results: Labs Lab Results Component Value Date WBC 7.0 03/12/2019 HGB 14.1 03/12/2019 HCT 44.3 03/12/2019 MCV 85.0 03/12/2019 LABPLAT 289 03/12/2019 Lab Results Component Value Date GLUCOSE 246 (H) 03/16/2019 CALCIUM 8.7 03/12/2019 SODIUM 138 03/12/2019 POTASSIUM 4.7 03/12/2019 CO2 25 03/12/2019 CHLORIDE 106 03/12/2019 BUNSER 17 03/12/2019 CREATININE 1.29 03/12/2019 Lab Results Component Value Date ALT 14 (L) 03/22/2016 AST 20 03/22/2016 ALKPHOS 76 03/22/2016 BILITOT 0.5 03/22/2016 Imaging See HPI. Endoscopy See HPI. Assessment/Plan 1) Dysphagia. Suspect from esophageal dysmotility. Denies GERD symptoms. He has not lost weight and has not modified eating to accommodate it. Previous EGD and recent Ba esophagogram ruled out mechanical obstruction. Recommend further evaluation with HRM. Explain the process and he is agreeable. Diagnoses and all orders for this visit: Esophageal dysphagia - Ambulatory referral to Gastroenterology Orders No orders of the defined types were placed in this encounter. PLANS - Schedule esophageal manometry for dysphagia. Follow up to be determined. My total encounter time on 06/16/2023 was 33 minutes which was spent in the activities documented in the note. This includes time spent prior to the visit and after the visit in direct care of the patient. This time does not include time spent in any separately reportable services. Leora Rosas MD Railroad Mechanictank car inspector Division of Gastroenterology Department of Medicine [facility] [phone] [place] [address] television production assistant GER QA documented in this encounter Plan of Treatment Not on file documented as of this encounter Visit Diagnoses Diagnosis Esophageal dysphagia Dysphagia, pharyngoesophageal phase documented in this encounter Orders Outpatient Referral Count Last Ordered Date st Ordered Date AMB REFERRAL TO GASTROENTEROLOGY 1 06/16/20 documented in this encounter Care Teams Longwall Machine Operator Helper Relationship Specialty Start Date End Date Liset Haynes MD PCP - General Family Medicine 08/05/22 documented as of this encounter
--- OUTSIDE RECORDS SUMMARY | 2024-07-24 00:10 | XMS_ITS | Encounter Summary ---
Author Organization [facility] Address [address] [facility] [place] [address] Care Team Providers Care Property Handler Name Role Phone Jessica Arroyo MD Primary Care Provider [phone] Encounter Details Date Type Department Care Team (Late st Contact Info) Description 11/13/[address] 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 LDL-C is now calculated using the Norberto-Pacheco calculation, which is a validated novel method providing better accuracy than the Friedewald equation in the estimation of LDL-C. Norberto BEDOLLA et al. TEGAN. 2013;310(19): 2024-8264 (http://education.Vital Art and Science/faq/STP221) Chol/HDL ratio 3.1 <5.0 (calc) [facility] [...] Cordero DO LAB BLOOD ORDERABLES Final Result [facility] [address] [place] [address] documented in this encounter Visit Diagnoses Not on filedocumented in this encounter Care Teams Property Handler Relationship Specialty Start Date End Date Jessica Arroyo MD PCP - General Family Practice 08/11/18 08/04/22 documented as of this encounter
--- OUTSIDE RECORDS SUMMARY | 2024-07-24 00:10 | XMS_ITS | Encounter Summary ---
Author Organization [facility] Address [address] [place] [address] Care Team Providers Care Log Clerk Name Role Phone Jessica Arroyo MD Primary Care Provider [phone] Reason for Visit * Reason Comments Atrial Fibrillation Hypertension Encounter Details Date Type Department Care Team (Late st Contact Info) Description 08/17/2019 12:00 PM ENGINEERING MATHEMATICIAN Office Visit [facility] Cardiology [address] [place] [address] Norberto Cordero, [address] [facility] [facility] [address] [place] [address] Atrial fibrillation, currently in sinus rhythm (Primary Dx); Essential hypertension; Hyperlipidemia associated with type 2 diabetes mellitus ([facility]/HCC) Social History Tobacco Use Types Packs/Day Years Used Date Smoking Tobacco: Former Smokeless Tobacco: Never Alcohol Use Standard Drinks/Week Comments No 0 (1 standard drink = 0.6 oz pur e alcohol) Sex and Gender Information Value Date Recorded Sex Assigned at Not on file Legal Sex Male 3:18 AM ENGINEERING MATHEMATICIAN Gender Identity Not on file Sexual Orientation Not on file documented as of this encounter Last Filed Vital Signs Vital Sign Reading Time Taken Comments Blood Pressure 130/68 08/17/2019 11:48 AM ENGINEERING MATHEMATICIAN Pulse 80 08/17/2019 11:48 AM ENGINEERING MATHEMATICIAN Temperature - - Respiratory Rate - - Oxygen Saturation 97% 08/17/2019 11:48 AM ENGINEERING MATHEMATICIAN Inhaled Oxygen Concentration - - Weight 158.8 kg (350 lb) 08/17/2019 11:48 AM ENGINEERING MATHEMATICIAN Height 188 cm (6' 2 ) 08/17/2019 11:48 AM ENGINEERING MATHEMATICIAN Body Mass Index 44.94 08/17/2019 11:48 AM ENGINEERING MATHEMATICIAN documented in this encounter Progress Notes * Norberto Cordero DO - 08/17/2019 12:00 PM CST Patient Name: Neal Amaro Provider:Norberto Cordero DO : 1940 Date of Service: 08/17/2019 Referring: Manan CHIEF COMPLAINT: Atrial Fibrillation and Hypertension Neal presents today for follow-up evaluation. Clinically he is doing fine having no chest pain dyspnea or palpitations.He fx his ankle in March, in cast 8 weeks, followed by 2 more; now with a walker HISTORY OF PRESENT ILLNESS: Mr Neal Amaro is a 78 year old male who has a history of recurrent atrial fibrillation of 5 years duration, 3 episodes of which occurred during hospitalizations, the first 2 with surgical intervention. I first met Neal in March 2016 for atrial fibrillation with a fast ventricular response. He was begun on amiodarone at that time and, on EKG March 21,had returned to sinus rhythm. An echo done March 20 demonstrated normal LV systolic function with EF of 72%. His left atrium however was 5 cm in dimension. He had mild TR with normal right ventricular systolic pressure. He has a history of renal stones and probable passed a stone before the March admission. The March admission was for leg pain. At that time a VQ scan was positive for pulmonary most as well as a venous Doppler positive in the left popliteal region for DVT .In the summer he developed an acute blood loss anemia and was taken off the Xarelto tried on Pradaxa and then warfarin. His hemoglobinwas 14.9 Jun 01, 2018. He would like to get off his anticoagulation med. A Holter monitor in January of 2017 was negative for any episodes of atrial fibrillation. REVIEW OF SYSTEMS: General: No fever, chills, malaise or fatigue Eyes: No alterations in visual acuity ENT: No alterations in auditory acuity, no sore throat Pulmonary: No dyspnea, cough or hemoptysis Cardiac: No chest pain, orthopnea, PND or palpitations GI: No nausea, vomiting, diarrhea or constipation Musculoskeletal: No myalgias or arthralgias Skin: no rashes Neuro: No headaches, parathesias or focal neurological complaints Endocrine: No cold or heat intolerance Heme: no excessive bleeding or bruising Past Medical History He has a past medical history of Atrial fibrillation (CMS/HCC) and Hyperlipidemia. He has no past surgical history on file. His reports that he has quit smoking. He has never used smokeless tobacco. He reports that he does not drink alcohol. HisFamily history is unknown by patient. Current Outpatient Medications: ??? acetaminophen 500 mg capsule, Take 2 capsules (1,000 mg total) by mouth every 6 (six) hours, Disp: 30 tablet, Rfl: ??? albuterol HFA (PROAIR HFA) 90 mcg/actuation inhaler, Inhale 2 puffs every 6 (six) hours as needed for wheezing, Disp: 1 Inhaler, Rfl: ??? atorvastatin (LIPITOR) 20 mg tablet, take 1 tablet by oral route every day, Disp: 0, Rfl: 0 ??? baclofen (LIORESAL) 10 mg tablet, take 1 tablet by oral route 3 times every day, Disp: 0, Rfl: 0 ??? cholecalciferol (VITAMIN D3) 1,000 unit capsule, take 1 Capsule by Oral route 2 times every day, Disp: 0, Rfl: 0 ??? doxycycline (doxycycline hyclate) 100 mg capsule, take 1 capsule by oral route 2 times every day, Disp: 0, Rfl: 0 ??? flecainide (TAMBOCOR) 50 mg tablet, Take 1 tablet (50 mg total) by mouth 2 (two) times a day., Disp: 180 tablet, Rfl: 3 ??? flecainide (TAMBOCOR) 50 mg tablet, Take 50 mg by mouth 2 (two) times a day, Disp: , Rfl: ??? fluticasone furoate-vilanterol (BREO ELLIPTA) 100-25 mcg/dose diskus inhaler, Inhale 1 puff daily Rinse mouth with water after use. Do not swallow., Disp: , Rfl: ??? furosemide (LASIX) 20 mg tablet, take 1 tablet by oral route everyday and as needed, Disp: 60, Rfl: 4 ??? insulin glargine (LANTUS SOLOSTAR) 100 unit/mL (3 mL) insulin pen, inject by subcutaneous routeas per insulin protocol, Disp: 0 Syringe, Rfl: 0 ??? insulin lispro (HumaLOG) 100 unit/mL cartridge, inject by subcutaneous route per prescriber's instructions. Insulin dosing requires individualization., Disp: 0 Cartridge, Rfl: 0 ??? levothyroxine (SYNTHROID) 50 mcg tablet, Take 50 mcg by mouth daily, Disp: , Rfl: ??? metoprolol (LOPRESSOR) 25 mg tablet, 1/2 tab bid, Disp: 90, Rfl: 3 ??? omeprazole (PriLOSEC) 20 mg capsule, Take 40 mg by mouth daily. , Disp: , Rfl: ??? pregabalin (LYRICA) 75 mg capsule, take 1 capsule by oral route 3 times every day, Disp: 0, Rfl: 0 ??? tamsulosin (FLOMAX) 0.4 mg capsule,extended release 24hr, take 1 capsule by oral route every day 1/2 hour following the same meal each day, Disp: 0, Rfl: 0 ??? warfarin (COUMADIN) 3 mg tablet, Take 1 tablet (3 mg total) by mouth daily, Disp: , Rfl: Patient is allergic to adhesive tape-silicones. PHYSICAL EXAM: BP 130/68 Pulse 80 Ht 188 cm (6' 2 ) Wt (!) 158.8 kg (350 lb) SpO2 97% BMI 44.94 kg/m?? General: Well appearing, No pain or distress, well nourished Eyes: ZEB/EOMI, Conjuctiva Clear ENT: External ears/nose normal Neck: Supple Vascular: Carotid upstrokes brisk bilaterally and without bruits. Respiratory: Unlabored. Clear to ausculation bilaterally; no wheezing/rales/rhonchi. Cardiovascular: PMI is nondisplaced, S1S2 normal. No murmurs, rubs, gallops. Gastrointestinal: soft, non-tender abdomen Extremities: no cyanosis or clubbing or edema Musculoskeletal: no obvious joint deformities Skin: no obvious rash or bruising Psychiatric: normal affect Neurologic: awake/alert, no focal deficits ASSESSMENT & PLAN: Diagnoses and all orders for this visit: Atrial fibrillation, currently in sinus rhythm (Primary) Assessment & Plan: 1. Normal global and regional left ventricular systolic function. EF 55%. Normal left ventricular diastolic function. Normal left ventricular cavity size. 2. There is mild enlargement of the left atrium. 3. Normal tricuspid valve appearance and function. Trace tricuspid regurgitation He remains regularin rhythm, so I would continue his current regimen INR followed by Dr Hinkle Essential hypertension Assessment & Plan: His BP remains at goal Hyperlipidemia associated with type 2 diabetes mellitus (CMS/HCC) Assessment & Plan: TC 137/LDL 79 on lipitor 20 mg and at goal NEERING MATHEMATICIAN documented in this encounter Miscellaneous Notes * Assessment & Plan Note - Norberto Cordero DO - 08/17/2019 12:01 PM ENGINEERING MATHEMATICIAN Associated Problem(s): Hyperlipidemia associated with type 2 diabetes mellitus (HCC) TC 137/LDL 79 on lipitor 20 mg and at goal NEERING MATHEMATICIAN * Assessment & Plan Note - Norberto Cordero DO - 08/17/2019 12:00 PM ENGINEERING MATHEMATICIAN Associated Problem(s): Hypertension His BP remains at goal NEERING MATHEMATICIAN * Assessment & Plan Note - Norberto Cordero DO - 08/17/2019 11:59 AM ENGINEERING MATHEMATICIAN Associated Problem(s): Atrial fibrillation, currently in sinus rhythm 1. Normal global and regional left ventricular systolic function. EF 55%. Normal left ventricular diastolic function. Normal left ventricular cavity size. 2. There is mild enlargement of the left atrium. 3. Normal tricuspid valve appearance and function. Trace tricuspid regurgitation He remains regularin rhythm, so I would continue his current regimen INR followed by Dr Hinkle NEERING MATHEMATICIAN NEERING MATHEMATICIAN documented in this encounter Plan of Treatment Not on file documented as of this encounter Visit Diagnoses Diagnosis Atrial fibrillation, currently in sinus rhythm- Primary Essential hypertension Unspecified essential hypertension Hyperlipidemia associated with type 2 diabetes mellitus (HCC) documented in this encounter Discontinued Medications Medication Sig Discontinue Reason Start Date End Da te finasteride (PROSCAR) 5 mg tablet Take 5 mg by mouth daily Therapy completed 08/17/2019 documented as of this encounter Historical Medications * This list may reflect changes made after this encounter. levothyroxine (SYNTHROID) 50 mcg tablet Take 1 tablet (50 mcg total) by mouth daily 08/08/2019 flecainide (TAMBOCOR) 50 mg tablet Take 50 mg by mouth 2 (two) times a day 09/26/2019 added in this encounter Care Teams Log Clerk Relationship Specialty Start Date End Date Jessica Arroyo MD PCP - General Family Practice 08/11/18 08/04/22 documented as of this encounter
--- OUTSIDE RECORDS SUMMARY | 2024-07-24 00:10 | XMS_ITS | Encounter Summary ---
Author Organization [facility] Address [address] [place] [address] Care Team Providers Care Buffet Server Name Role Phone Jessica Arroyo MD Primary Care Provider [phone] Encounter Details Date Type Department Care Team (Late st Contact Info) Description 06/15/2020 Orders Only [facility] Cardiology [address] [facility] [address] [place] [address] Collin Rojas MD [address] [facility] [address] [place] [address] Social History Tobacco Use Types Packs/Day Years Used Date Smoking Tobacco: Former Smokeless Tobacco: Never Alcohol Use Standard Drinks/Week Comments No 0 (1 standard drink = 0.6 oz pur e alcohol) Sex and Gender Information Value Date Recorded Sex Assigned at Not on file Legal Sex Male 3:18 AM DEVELOPMENT TECHNICAL LEAD Gender Identity Not on file Sexual Orientation Not on file documented as of this encounter Plan of Treatment Not on file documented as of this encounter Procedures Procedure Name Priority Date/Time Associated Diagnosis Comments CARDIOLOGY DOCUMENT SCAN Routine 06/15/2020 documented in this encounter Results * SCAN - CARDIOLOGY (06/15/2020) Anatomical Region Laterality Modality Other Collin Rojas MD CV CARDIAC SERVICES PROC EDURES Final Result documented in this encounter Visit Diagnoses Not on filedocumented in this encounter Care Teams Buffet Server Relationship Specialty Start Date End Date Jessica Arroyo MD PCP - General Family Practice 08/11/18 08/04/22 documented as of this encounter
--- OUTSIDE RECORDS SUMMARY | 2024-07-24 00:10 | XMS_ITS | Encounter Summary ---
Author Organization [facility] Address [address] [place] [address] Care Team Providers Care Medical Director Of Hospice Name Role Phone Liset Haynes MD Primary Care Provider [phone] Reason for Visit * MRI/CAT/PET Scan (Routine) - Closed Specialty Diagnoses / Procedures Referred By Contac t Referred To Contact Procedures Neuro CT Outside Reference Duke Rivas MD [address] [facility] [address] [place] [address] Phone: tel: fax: Referral ID Status Reason Start Date Expiration Date Visits Re quested Visits Authorized [id number] Closed 09/10/2023 10/09/2024 1 1 Encounter Details Date Type Department Care Team (Latest Contact Info) Description 09/10/2023 5:19 PM SURGERY ASSISTANT - 09/10/2023 11:59 PM SURGERY ASSISTANT Hospital Encounter [facility] [place] [address] Discharge Disposition: Discharge to home or self [...] on file Legal Sex Male 3:18 AM SURGERY ASSISTANT Gender Identity Not on file Sexual Orientation Not on file documented as of this encounter Medications at Time of Discharge [...] times every day 0 0 04/21/2016 BD Lbanca 2nd Gen Pen Needle 32 gauge x [...] (20 mg total) by mouth daily 04/25/2023 [employer] Ultra Test strip USE TO TEST BLOOD [...] Procedure Name Priority Date/Time Associated Diagnosis Comments NEURO CT OUTSIDE REFERENCE Routine 09/10/2023 5:19 PM SURGERY ASSISTANT documented in this encounter Results * Neuro CT Outside Reference (09/10/2023 5:19 PM SURGERY ASSISTANT) Impressions [facility] - 09/10/2023 5:19 PM SURGERY ASSISTANT These images are for Reference purposes only and have not been reviewed by [facility]. ??There will be no report generated by a [facility] Radiologist. Narrative [facility] - 09/10/2023 5:19 PM SURGERY ASSISTANT EXAMINATION: ??Images For Reference Purposes Only us Duke Rivas MD IMG CT PROCEDURES Ruth l Result [facility] documented in this encounter Visit Diagnoses Not on filedocumented in this encounter Care Teams Medical Director Of Hospice Relationship Specialty Start Date End Date Bird, Liset S., MD PCP - General Family Medicine 08/05/22 documented as of this encounter
--- OUTSIDE RECORDS SUMMARY | 2024-07-24 00:10 | XMS_ITS | Encounter Summary ---
Author Organization [facility] Address [address] [facility] [place] [address] Care Team Providers Care Orientation & Mobility Specialist Name Role Phone Liset Haynes MD Primary Care Provider [phone] Reason for Visit * Reason Comments Atrial Fibrillation * Consultation (Routine) - Closed Specialty Diagnoses / Procedures Referred By Contac t Referred To Contact Cardiology Diagnoses Atrial fibrillation, currently in sinus rhythm Pure hypercholesterolemia Norberto Cordero, [address] [facility] [address] [place] [address] Phone: tel: fax: Collin Rojas MD [address] [address] Phone: tel: fax: Referral ID Status Reason Start Date Expiration Date V isits Requested Visits Authorized [id number] Closed Specialty Services Required 08/19/2021 09/18/2022 1 1 Encounter Details Date Type Department Care Team (Late st Contact Info) Description 08/05/2022 9:00 AM TEXTILE TECHNICAL OFFICER Office Visit [facility] Cardiology [address] [place] [phone] Collin Rojas MD [address] [address] Abnormal EKG (Primary Dx); Atrial fibrillation, currently in sinus rhythm; Pure hypercholesterolemia; Paroxysmal atrial fibrillation (CMS/HCC) (HCC) Social History Tobacco Use Types Packs/Day Years Used Date Smoking Tobacco: Former Smokeless Tobacco: Never Tobacco Cessation:Counseling Given: Not Answered Alcohol Use Standard Drinks/Week Comments No 0 (1 standard drink = 0.6 oz pur e alcohol) Sex and Gender Information Value Date Recorded Sex Assigned at Not on file Legal Sex Male 3:18 AM TEXTILE TECHNICAL OFFICER Gender Identity Not on file Sexual Orientation Not on file documented as of this encounter Last Filed Vital Signs Vital Sign Reading Time Taken Comments Blood Pressure 92/60 08/05/2022 8:56 AM TEXTILE TECHNICAL OFFICER Pulse 78 08/05/2022 8:56 AM TEXTILE TECHNICAL OFFICER Temperature - - Respiratory Rate - - Oxygen Saturation 92% 08/05/2022 8:56 AM TEXTILE TECHNICAL OFFICER Inhaled Oxygen Concentration - - Weight 167.8 kg (370 lb) 08/05/2022 8:56 AM TEXTILE TECHNICAL OFFICER Height 188 cm (6' 2 ) 08/05/2022 8:56 AM TEXTILE TECHNICAL OFFICER Body Mass Index 47.51 08/05/2022 8:56 AM TEXTILE TECHNICAL OFFICER documented in this encounter Progress Notes * Collin Rojas MD - 08/05/2022 9:00 AM CST [facility] 08/05/2022 CHIEF COMPLAINT History of paroxysmal atrial fibrillation patient become established for ongoing care and follow-up. HPI Neal Amaro is a 81 y.o. male with a history of paroxysmal atrial fibrillation having been seen by a ed manager at [facility] who is no longer in practice. The patient is here today to become established for ongoing care and follow-up. Review of the previous notes tasha willis he developed atrial fibrillation several years ago each episode seems to have occurred when hewas in the hospital having a operation or procedure of some sort. He has been treated with antiarrhythmic therapy with flecainide and anticoagulated with Coumadin. Echocardiograms that have been donein the past have not demonstrated any significant structural heart disease other than left atrial enlargement at 5 cm. There was a trivial amount of tricuspid valve regurgitation noted. His ed manager had been seeing him annually with the previous appointment 1 year before today. In the office today patient is in wheelchair very obese man with a BMI of 47. The patient's other principal comorbidities include treated hypertension as well as chronic back pain he is had 2 back operations on the in the past. 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 He ambula renee with a walker at home but for longer distances such as coming to this appointment will use a wheelchair with the assistance of his . MEDICAL HISTORY Past Medical History: Diagnosis Date Atrial fibrillation (CMS/HCC) (HCC) Hyperlipidemia No past surgical history on file. Family History Family history unknown: Yes Social History Tobacco Use Smoking status: Former Smokeless tobacco: Never Substance and Sexual Activity Drug use: None Sexual activity: None Alcohol Use: Not on file (Not in a hospital admission) Allergies Allergen Reactions Adhesive Tape-Silicones Flushing (skin) REVIEW OF SYSTEMS General ROS: negative for - chills, fatigue, fever, malaise, night sweats, weight gain or weight loss Psychological ROS: negative for - anxiety, depression, memory difficulties or sleep disturbances Ophthalmic ROS: negative for - blurry vision, decreased vision, loss of vision or scotomata ENT ROS: negative for - epistaxis, headaches, hearing change, nasal congestion, nasal discharge, sore throat, vertigo or visual changes Hematological and Lymphatic ROS: negative for - bleeding problems, blood clots, bruising, fatigue or weight loss Endocrine ROS: negative for - hot flashes, palpitations, polydipsia/polyuria or unexpected weight changes Respiratory ROS: negative for - cough, hemoptysis, orthopnea, shortness of breath, tachypnea or wheezing Cardiovascular ROS: negative for - chest pain, dyspnea on exertion, edema, irregular heartbeat, loss of consciousness, murmur, orthopnea, palpitations, paroxysmal nocturnal dyspnea, rapid heart rate or shortness of breath Gastrointestinal ROS: negative for - abdominal pain, appetite loss, blood in stools, constipation, diarrhea, gas/bloating, heartburn, hematemesis, melena or nausea/vomiting Genito-Urinary ROS: negative for - dysuria, erectile dysfunction or hematuria Musculoskeletal ROS: negative for - joint pain, muscle pain or muscular weakness Dermatological ROS: negative for dry skin, eczema, pruritus and rash LABS AND OTHER DIAGNOSTIC TESTS Lab Results Component Value Date WBC 7.0 03/12/2019 HGB 14.1 03/12/2019 HCT 44.3 03/12/2019 MCV 85.0 03/12/2019 No lab exists for component: LABALBU Lab Results Component Value Date CHOL 142 11/13/2020 CHOL 137 03/11/2019 CHOL 116 (L) 03/21/2016 Lab Results Component Value Date HDL 46 11/13/2020 HDL 41 03/11/2019 HDL 34 (L) 03/21/2016 Lab Results Component Value Date LDLCALC 79 03/11/2019 Lab Results Component Value Date TRIG 84 11/13/2020 TRIG 83 03/11/2019 TRIG 80 03/21/2016 Lab Results Component Value Date CHOLHDL 3.1 11/13/2020 CHOLHDL 3 03/11/2019 CHOLHDL 3.4 03/21/2016 PHYSICAL EXAM Vitals BP 92/60 (BP Location: Left arm, Patient Position: Sitting) Pulse 78 Ht 188 cm (6' 2 ) Wt (!) 167.8 kg (370 lb) SpO2 92% BMI 47.51 kg/m?? General appearance - alert, pleasant morbidly obese man in the wheelchair, and in no distress, oriented to person, place, and time and acyanotic, in no respiratory distress Mental status - affect appropriate to mood Eyes - extraocular eye movements intact, sclera anicteric, no pallor Ears - external earsappear normal, hearing grossly normal bilaterally Nose - normal and patent, no erythema or discharge Mouth - mucous membranes moist, pharynx appears normal, dental hygiene good and tongue normal Neck - supple, no significant neck masses, carotids upstroke normal bilaterally, no bruits, no JVD Chest - clear to auscultation, no wheezes, rales or rhonchi, symmetric air entry, no tachypnea, retractions or cyanosis Heart - normal rate, regular rhythm, normal S1, S2, no murmurs, rubs, clicks or gallops, no JVD Abdomen - soft, nontender, nondistended, no masses or organomegaly bowel sounds normal Neurological - alert, oriented, normal speech, no focal findings or movement disorder noted Musculoskeletal - no joint tenderness, deformity or swelling, no muscular tenderness noted Extremities - patient has intact distal pulses moderate chronic appearing edema with changes of venous stasis no clubbing or cyanosis Skin - normal coloration and turgor, no rashes, no suspicious skin lesions noted ASSESSMENT Paroxysmal atrial fibrillation with mild left atrial enlargement otherwise no structural heart disease patient is maintaining sinus rhythm with flecainide and Coumadin for anticoagulation. No reason to adjust his medical regimen as he has been stable. PLAN/RECOMMENDATIONS Patient had been seeing his previous physician annually would like to continue that same pattern inthis office obviously I will see him p.r.n. if there are additional cardiac concern Collin Rojas MD ILE TECHNICAL OFFICER documented in this encounter Miscellaneous Notes * Addendum Note - Prem Jackman MA - 08/05/2022 9:00 AM CSTAddended by: PREM JACKMAN on: 08/05/2022 04:40 PM Modules accepted: Orders ILE TECHNICAL OFFICER documented in this encounter Plan of Treatment Not on file documented as of this encounter Procedures Procedure Name Priority Date/Time Associated Diagnosis Comments ECG 12-LEAD Routine 08/05/2022 Atrial fibrillation, currently in sinus rhythm documented in this encounter Results * ECG 12 lead (08/05/2022) us Collin Rojas MD ECG ORDERABLES Final Re sult documented in this encounter Visit Diagnoses Diagnosis Abnormal EKG- Primary Nonspecific abnormal electrocardiogram (ECG) (EKG) Atrial fibrillation, currently in sinus rhythm Pure hypercholesterolemia Paroxysmal atrial fibrillation (CMS/HCC) (HCC) Atrial fibrillation documented in this encounter Orders Outpatient Referral Count Last Ordered Date Fir st Ordered Date AMB REFERRAL TO CARDIOLOGY 1 08/05/2022 documented in this encounter Care Teams Orientation & Mobility Specialist Relationship Specialty Start Date End Date Liset Haynes MD PCP - General Family Medicine 08/05/22 documented as of this encounter
--- OUTSIDE RECORDS SUMMARY | 2024-07-24 00:10 | XMS_ITS | Encounter Summary ---
Author Organization [facility] Healthcare Address [address] [place] [address] Care Team Providers Care Journalism Internship Name Role Phone Liset Haynes MD Primary Care Provider [phone] Reason for Visit * Reason Comments Follow-up 1 year f/u Hospital Follow Up [facility] to 09/10/23 Dx: SOB, Covid-19, Influenza A, acute resp failure Atrial Fibrillation Encounter Details Date Type Department Care Team (Late st Contact Info) Description 10/01/2023 3:30 PM OCCUPATIONAL HEALTH COORDINATOR Office Visit [facility] Cardiology [address] [address] Collin Rojas MD [address] [facility] [address] [address] Atrial fibrillation, currently in sinus rhythm (Primary Dx) Social History Tobacco Use Types [...] on file Legal Sex Male 3:18 AM OCCUPATIONAL HEALTH COORDINATOR Gender Identity Not on file Sexual Orientation Not on file documented as of this encounter Last Filed Vital Signs Vital Sign Reading Time Taken Comments Blood Pressure 128/72 10/01/2023 3:39 PM OCCUPATIONAL HEALTH COORDINATOR Pulse 60 10/01/2023 3:39 PM OCCUPATIONAL HEALTH COORDINATOR Temperature - - Respiratory Rate - - Oxygen Saturation 97% 10/01/2023 3:39 PM OCCUPATIONAL HEALTH COORDINATOR Inhaled Oxygen Concentration - - Weight 154.4 kg (340 lb 6.4 oz) 10/01/2023 3:39 PM OCCUPATIONAL HEALTH COORDINATOR Height 188 cm (6' 2 ) 10/01/2023 3:39 PM OCCUPATIONAL HEALTH COORDINATOR Body Mass Index 43.7 10/01/2023 3:39 PM OCCUPATIONAL HEALTH COORDINATOR documented in this encounter Progress Notes * Collin Rojas MD - 10/01/2023 3:30 PM CST [facility] FOLLOW UP 10/01/2023 Neal Amaro is a 82 y.o. male who presents for follow up of atrial fibrillation. This is a elderly gentleman with morbid obesity and a history of paroxysmal atrial fibrillation. He was treated by his nub card tender in [place] for many years with flecainide and has been maintaining sinus rhythm. He has seen in the office here on an annual basis. He was hospitalized twice recently in July of 2023 he suffered a fall in his home and was found to have a intracerebral bleed. Apparently was small but he was transferred over to [facility] where he was followed by neurosurgery. No operation was necessary for treatment of this. He was then hospitalized in the beginning of September of 2023 at [facility] with shortness of breath which was found to be due to influenza pneumonia he wasalso testing positive for COVID at that time. During neither of these hospitalizations did he have any arrhythmias or cardiac problems he continues continues to take flecainide without any arrhythmias REVIEW OF SYSTEMS General ROS: negative for [...] for dry skin, eczema, pruritus and rash HOME MEDICATIONS Current Outpatient Medications: acetaminophen (TYLENOL) 325 mg tablet, Take 2 tablets (650 mg total) by mouth every 6 (six) hours as needed for pain, Disp: 30 tablet, Rfl: 0 albuterol HFA (PROVENTIL HFA,VENTOLIN HFA,PROAIR HFA) 90 mcg/actuation inhaler, INHALE TWO PUFFS BYMOUTH EVERY 2-4 HOURS NEEDED FOR SHORTNESS OF BREATH OR WHEEZING, Disp: , Rfl: atorvastatin (LIPITOR) 20 mg tablet, Take 1 tablet (20 mg total) by mouth daily, Disp: , Rfl: azelastine (ASTELIN) 137 mcg (0.1 %) nasal spray, ADMINISTER 2 SPRAYS INTO EACH NOSTRIL EVERY 12 HOURS, Disp: , Rfl: baclofen (LIORESAL) 10 mg tablet, take 1 tablet by oral route 3 times every day, Disp: 0, Rfl: 0 BD Blanca 2nd Gen Pen Needle 32 gauge x 5/32 needle, DIRECTED FOUR TIMES DAILY WITH INSULIN, Disp: , Rfl: doxycycline 100 mg tablet, Take 1 tablet/capsule (100 mg total) by mouth every 12 (twelve) hours, Disp: , Rfl: Farxiga 5 mg tablet, Take by mouth daily, Disp: , Rfl: flecainide (TAMBOCOR) 50 mg tablet, Take 1 tablet (50 mg total) by mouth 2 (two) times a day, Disp:180 tablet, Rfl: 0 insulin glargine (LANTUS SOLOSTAR) 100 unit/mL (3 mL) insulin pen, inject by subcutaneous route as per insulin protocol (Patient taking differently: Inject 44 Units under the skin nightly), Disp: 0 Syringe, Rfl: 0 insulin lispro (HumaLOG, ADMELOG) 100 unit/mL pen for injection, Inject 8-10 Units under the skin 3(three) times a day with meals, Disp: , Rfl: levothyroxine (SYNTHROID) 50 mcg tablet, Take 1 tablet (50 mcg total) by mouth daily, Disp: , Rfl: metoprolol (LOPRESSOR) 25 mg tablet, 1/2 tab bid, Disp: 90, Rfl: 3 omeprazole (PriLOSEC) 20 mg capsule, Take 1 capsule (20 mg total) by mouth daily, Disp: , Rfl: OneTouch Ultra Test strip, USE TO TEST BLOOD SUGAR THREE TIMES DAILY, Disp: , Rfl: oxyCODONE (ROXICODONE) 5 mg immediate release tablet, Take 1 tablet (5 mg total) by mouth every 4 (four) hours as needed for pain, Disp: 5 tablet, Rfl: 0 pregabalin (LYRICA) 150 mg capsule, Take 1 capsule (150 mg total) by mouth 3 (three) times a day, Disp: , Rfl: senna-docusate (PERICOLACE) 8.6-50 mg, Take 1 tablet by mouth 2 (two) times a day, Disp: 28 tablet,Rfl: 0 tamsulosin (FLOMAX) 0.4 mg capsule,extended release 24hr, take 1 capsule by oral route every day 1/2 hour following the same meal each day (Patient taking differently: Take 2 capsules (0.8 mg total) by mouth daily), Disp: 0, Rfl: 0 traMADoL (ULTRAM) 50 mg tablet, Take 1 tablet (50 mg total) by mouth every 6 (six) hours as needed for pain, Disp: , Rfl: Trelegy Ellipta 200-62.5-25 mcg inhaler, Inhale 1 puff daily, Disp: , Rfl: triamcinolone (KENALOG) 0.1 % cream, Apply topically 2 (two) times a day, Disp: , Rfl: levETIRAcetam (KEPPRA) 500 mg tablet, Take 1 tablet (500 mg total) by mouth 2 (two) times a day for11 doses (Patient not taking: Reported on 10/01/2023), Disp: 11 tablet, Rfl: 0 LABS AND OTHER DIAGNOSTIC TESTS Lab Results Component Value Date CHOL 142 [...] 11/13/2020 CHOLHDL 3 03/11/2019 CHOLHDL 3.4 03/21/2016 Lab Results Component Value Date WBC 6.3 07/27/2023 HGB 14.4 07/27/2023 HCT 44.4 07/27/2023 MCV 85.2 07/27/2023 No lab exists for component: LABALBU PHYSICAL EXAM Vitals BP 128/72 (BP Location: Left arm, Patient Position: Sitting) Pulse 60 Ht 188 cm (6' 2 ) Wt (!) 154.4 kg (340 lb 6.4 oz) SpO2 97% BMI 43.70 kg/m?? Physical Examination: General appearance - alert, well appearing, and in no distress, oriented to person, [...] swelling, no muscular tenderness noted Extremities - peripheral pulses normal, no pedal edema, no clubbing or cyanosis Skin - normal coloration and turgor, no rashes, no suspicious skin lesions noted ASSESSMENT Neal was seen today for follow-up, hospital follow up and atrial fibrillation. Diagnoses and all orders for this visit: Atrial fibrillation, currently in sinus rhythm PLAN/RECOMMENDATIONS Continue flecainide he has on a low dosage and maintaining sinus rhythm Continue annual follow-up Collin Rojas MD PATIONAL HEALTH COORDINATOR documented in this encounter Plan of Treatment Not on file documented as of this encounter Visit Diagnoses Diagnosis Atrial fibrillation, currently in sinus rhythm- Primary documented in this encounter Historical Medications * This list may reflect changes made after this encounter. traMADoL (ULTRAM) 50 mg tablet Take 1 tablet (50 mg total) by mouth every 6 (six) hours as needed for pain added in this encounter Care Teams Journalism Internship Relationship Specialty Start Date End Date Liset Haynes MD PCP - General Family Medicine 08/05/22 documented as of this encounter
--- OUTSIDE RECORDS SUMMARY | 2024-07-24 00:10 | XMS_ITS | Encounter Summary ---
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
--- OUTSIDE RECORDS SUMMARY | 2024-07-24 00:10 | XMS_ITS | Encounter Summary ---
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 Gender Identity Not on file Sexual Orientation Not on file documented as of this encounter Miscellaneous Notes * Telephone Encounter - Shelley Calvillo RN - 09/14/2023 9:02 AM MARKET DEVELOPMENT MANAGER Imaging pushed into chart ET DEVELOPMENT MANAGER * Telephone Encounter - Leandra Santoro - 09/08/2023 6:[address] report scanned into chart, facility to send images ET DEVELOPMENT MANAGER * Telephone Encounter - Shelley Calvillo RN - 09/07/2023 11:09 AM MARKET DEVELOPMENT MANAGER Attestation letter faxed to [facility] Medical Records F: [phone] ET DEVELOPMENT MANAGER * Telephone Encounter - Shelley Calvillo RN - 09/07/2023 11:05 AM MARKET DEVELOPMENT MANAGER Called and spoke with , she reports patient is currently admitted at [facility] with COVID and flu. She tells me they did a HCT today so she asked if we could cancel the one on 09/17. I told her that was fine and we will obtain the CT for the appointment. said she will call back and reschedule 09.17 if needed as they are currently discussing possibly sending him to Rehab after. is on board with the plan, voiced understanding, and has no further questions at this time. CT cancelled ET DEVELOPMENT MANAGER * Telephone Encounter - Caleb Walls - 09/07/2023 10:22 AM CST Pts would like to speak with member of AV team to discuss appt and mae current situation ET DEVELOPMENT MANAGER * Telephone Encounter - Julio Cesar Deal - 08/10/2023 9:09 AM CST I called pt to schedule his HCT appt. Pt's hct is scheduled prior Rob's appt. Rob's appt Reason for visit: Return Pt Date: 09/17/2023 Time: 10:30 am Location: [facility] Provider Dr. Rivas Routed: SYLVAIN Rivas ET DEVELOPMENT MANAGER * Telephone Encounter - Julio Cesar Deal - 08/07/2023 8:21 AM CST I called pt to schedule the appt, but pt said his PCP said 09/17/2023 might be too far out for him.Pt will check with his pcp and I will call him back after 3pm to see what he says. ET DEVELOPMENT MANAGER * Telephone Encounter - Julio Cesar Deal - 08/06/2023 2:34 PM CST I called pt to schedule the appt. I couldn't find any time slots for a 4 week follow up. I saw a slot for 09/17/2023 which I think its far out. Please address. ET DEVELOPMENT MANAGER * Telephone Encounter - Shelley Calvillo RN - 08/05/2023 4:07 PM MARKET DEVELOPMENT MANAGER Please schedule patient for a 4 week follow up with AV, HCT prior order is in Okay to DB a return slot if needed ET DEVELOPMENT MANAGER * Telephone Encounter - Julio Cesar Deal - 08/05/2023 3:00 PM CST Pt called wanting to schedule his f/up appt. Pt was seen by Rob. Contact number to reach pt is [phone]. ET DEVELOPMENT MANAGER documented in this encounter Plan of Treatment Not on file documented as of this encounter Visit Diagnoses Not on filedocumented in this encounter Care Teams Insurance Sales Associate Relationship Specialty Start Date End Date Liset Haynes MD PCP - General Family Medicine 08/05/22 documented as of this encounter
--- OUTSIDE RECORDS SUMMARY | 2024-07-24 00:10 | XMS_ITS | Encounter Summary ---
Author Organization [facility] Address [address] [place] [address] Phone Care Team Providers Care Audio Visual Director Name Role Phone Liset Haynes MD Primary Care Provider [phone] Reason for Visit * Consultation (Routine) - Closed Specialty Diagnoses / Procedures Referred By Contac t Referred To Contact Neurosurgery Diagnoses SAH (subarachnoid hemorrhage) (CMS/HCC) (HCC) Duke Rivas MD [address] [place] [address] Phone: tel: fax: [facility] (All Locations) Referral ID Status Reason Start Date Expiration Date V isits Requested Visits Authorized [id number] Closed Specialty Services Required 09/04/2023 10/03/2024 1 1 Encounter Details Date Type Department Care Team (Late st Contact Info) Description 09/17/2023 10:30 AM RESIDENTIAL SALES Office Visit [facility] Neurosurgery [address] [facility] [address] [place] [address] [place] [id number] Duke Rivas MD [address] [place] [address] SAH (subarachnoid hemorrhage) (CMS/HCC) (HCC) Social History Tobacco Use Types [...] file Legal Sex Male 3:18 AM RESIDENTIAL SALES Gender Identity Not on file Sexual Orientation Not on file documented as of this encounter Progress Notes * Duke Rivas MD - 09/17/2023 10:30 AM CST Images from the original note were not included. Department of Neurological Surgery Duke Rivas M.D. [facility] Department of Neurological Surgery [address] [place], [place] [id number] RETURN VISIT Patient Name: Neal Amaro Medical Record Number (MRN): [id number] Date of (): 1940 Encounter Date: 09/17/2023 PRIMARY CARE PROVIDER: Liset Haynes MD REFERRING PROVIDER: Referral, Self No address on file INTERVAL HISTORY We saw Neal Amaro in our neurosurgery clinic for follow-up after being admitted to the hospital with the a small traumatic subarachnoid hemorrhage and subdural. He is doing well since discharge. At baseline he has poor vision and uses a wheelchair for long distances. His notes that hehas not had any changes since discharge and he is at his baseline. VITAL SIGNS There were no vitals filed for this visit. PHYSICAL EXAM: On the exam, he is awake, alert and oriented x3. Pupils are surgical. No vision in right eye. Limited vision and EOM in left eye. Face is symmetrically He moves all extremities with equal strength but has trouble lifting it from the wheelchair. REVIEW OF IMAGING: I reviewed a noncontrast CT scan obtained at an outside hospital on 09/07/2023. This demonstrates resolution of the small amount of subarachnoid and subdural blood adjacent to the posterior aspect ofthe falx cerebri, which was seen on the head CT from 07/27/2023. ASSESSMENT AND PLAN: Neal Amaro is a 82 y.o. male who presents today for follow up of all traumatic subarachnoid hemorrhage and subdural hematomas. That resolved on the recent CT scan. At he is at his neurological baseline. At this point he does not need any scheduled follow-up with us. He can resume his warfarin. I have advised them of fall precautions DENTIAL SALES documented in this encounter Plan of Treatment Not on file documented as of this encounter Visit Diagnoses Diagnosis SAH (subarachnoid hemorrhage) (CMS/HCC) (HCC) Subarachnoid hemorrhage documented in this encounter Historical Medications * This list may reflect changes made after this encounter. BD Blanca 2nd Gen Pen Needle 32 gauge x 5/32 needle DIRECTED FOUR TIMES DAILY WITH INSULIN 08/21/2023 added in this encounter Orders Outpatient Referral Count Last Ordered Date Fir st Ordered Date AMB REFERRAL TO NEUROSURGERY 1 09/17/2023 documented in this encounter Care Teams Audio Visual Director Relationship Specialty Start Date End Date Liset Haynes MD PCP - General Family Medicine 08/05/22 documented as of this encounter
--- OUTSIDE RECORDS SUMMARY | 2024-07-24 00:10 | XMS_ITS | Encounter Summary ---
Author Organization [facility] Address [address] [place] [address] Phone Care Team Providers Care Edge Plugger Name Role Phone Liset Haynes MD Primary Care Provider [phone] Reason for Referral * MRI/CAT/PET Scan (Routine) - Closed Specialty Diagnoses / Procedures Referred By Contac t Referred To Contact Radiology Diagnoses SAH (subarachnoid hemorrhage) (CMS/HCC) (HCC) Procedures CT Head WO Contrast Duke Rivas MD [address] [place] [address] Phone: tel: fax: [address] [address] Referral ID Status Reason Start Date Expiration Date Visits Re quested Visits Authorized [id number] Closed 08/25/2023 02/23/2024 1 1 IGERATION HOUSEMAN Encounter Details Date Type Department Care Team (Late st Contact Info) Description 08/05/2023 Orders Only [facility] Neurosurgery [address] [facility] 6th [place] [address] [place] [address] Shleley Calvillo RN SAH (subarachnoid hemorrhage) (CMS/HCC) (HCC) (Primary Dx) Social History Tobacco Use Types Packs/Day Years Used Date Smoking Tobacco: Former Smokeless Tobacco: Never Alcohol Use Standard Drinks/Week Comments No 0 (1 standard drink = 0.6 oz pur e alcohol) Personal Safety Answer Date Recorded Getting School Help Needed Denies 07/27 Sex and Gender Information Value Date Recorded Sex Assigned at Not on file Legal 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 Gender Identity Not on file Sexual Orientation Not on file documented as of this encounter Plan of Treatment Scheduled Orders Name Type Priority Associated Diagnoses Orde r Schedule CT Head WO Contrast Imaging Schedule Brent Barrera Routine (OP Routine) SAH (subarachnoid hemorrhage) ([facility]) ([facility]) Expected: 08/05/2023, Expires: 02/02/2025 documented as of this encounter Visit Diagnoses Diagnosis SAH (subarachnoid hemorrhage) ([facility]) ([facility])- Primary Subarachnoid hemorrhage documented in this encounter Care Teams Edge Plugger Relationship Specialty Start Date End Date Liset Haynes MD PCP - General Family Medicine 08/05/22 documented as of this encounter
--- OUTSIDE RECORDS SUMMARY | 2024-07-24 00:10 | XMS_ITS | Encounter Summary ---
Author Organization [facility] Address [address] [place] [address] Phone Care Team Providers Care Bioinformatics Team Member Name Role Phone Liset Haynes MD Primary Care Provider [phone] Reason for Visit * Reason Onset Date Comments Gi Pre Procedure Assessment 12/09/2023 Encounter Details Date Type Department Care Team (Late st Contact Info) Description 12/09/2023 Telephone 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 Rojas Patient notified * Telephone Encounter - Lucrecia Soares LPN - 12/09/2023 2:49 PM CDT PROCEDURE Type: EGD w/Endoflip Indication: Dysphagia Referring Physician: Leora Rosas Date Referred: 09/08/2023 CLINICAL ASSESSMENT [x] Clinical assessment obtained via phone call with patient 12/09/2023 [x]COVID/Flu Screening questions []BMI>45, Weight >350 lbs [] Patient had GI procedure/CPAP clinic/GI clinic <30 days (if Yes, no medical screening questions needed unless new clinical issues in last 30 days) Medical screening questions: BMI/Weight: NA CARDIOVASCULAR: A fib- If new (not previously known) diagnosis, needs cards or CPAP first RESPIRATORY/LUNG: COPD/asthma- If severe (FEV1 < 50% of predicted) or continuous O2 no SC. RENAL/LIVER/GI: None GI: Previous COLON or EGD: Hx of Polyps, Chowdhury, Barretts:yes Hx of Constipation:No Have you ever required a two day prep? N/A BLEEDING/CLOTTING: None NEUROLOGICAL: None ENDOCRINE: Diabetes- No BG above 250 or AIC >10 for [facility]. No BG =>400 for [facility]. Bg>300 at [facility] may get rescheduled PRIOR PROCEDURE ISSUES: None AFFILIATE MARKETING COORDINATOR/: NA IMPLANTS.: None PSYCH/Behavioral Hx: N/A SC has limited security Notes: PACEMAKER/ICD Y/N: No/NA Device info: Last documented device check: Any shocks since last cards visit (if yes must see cardiology for procedure clearance): DIALYSIS Y/N: No/NA []HD- Schedule on non-HD day, see protocol []PD- Drain PD fluid AM of procedure, if colonoscopy order AB ppx, see protocol REGULAR DIABETIC MEDS Y/N: Yes []Yes- Discuss diabetes medication management with prescribing physician GLP DIABETIC MEDICATIONS Y/N: No/NA None Educated Patient on the need to hold Medication, and to contact their ordering MD or Machinery Cleaner about bridging medication for procedure. N/A [] Yes - Letter Sent to Ordering Physician/Machinery Cleaner Date sent: Hold instructions: GLP Weight Loss Medications No Educated Patient on the need to hold Medication, and to contact their ordering MD or Machinery Cleaner about bridging medication for procedure. Y/N: No/NA None [] Yes - Letter Sent to Ordering Physician/Machinery Cleaner Hold older Instructions: BLOOD THINNERS/ANTICOAG/ANTIPLATELET (BESIDES ASA) Medication: Warfarin (Coumadin)- CHECK INR 2 HOURS PRIOR TO PROCEDURE AT OUTPT LAB (schedule case no earlier than 8:30 AM) Physician contacted for hold order/date sent: 12/09/2023, Collin Houston Hold order Method sent: Szl Fax Date hold received: Hold instructions: CONTINUE ASPIRIN INFORMATION REQUESTED []Imaging: []Medical Progress Note/H&P []Medication list []Other: PATIENT OPTIMIZATION []Physician reviewing escalation: []CPAP: Date scheduled: Outcome : [] Location limitations: Scheduling Scheduling location limitations: Chainstitch Zipper Setter needed [x] NA Language: POA [x] NA Name: Required extended education:yes SPECIAL PROCEDURE INSTRUCTIONS Pt to report to lab 1 hour early before arrival time for PT/INR Also sent questionnaire to pt along with PY instructions Scheduling Notes Procedure information Date of procedure: 01/22/2024 Time of procedure: 1330 Arrival time: 1130 Location: [facility] Proceduralist: Christie Instructions Method of instructions: Mailed Copy [x]Confirmation of ride/fire range technician []Post anesthesia restrictions given [x]NPO Instructions: [x]Diet Instructions: [x]Take non-blood thinner prescription meds that morning [x]Bring med list, photo ID, insurance card, no valuables []Bring COVID vaccination card (if vaccinated) Bowel Prep Prep prescribed: NA Method of Bowel Prep (RX): NA documented in this encounter Plan of Treatment Not on file documented as of this encounter Visit Diagnoses Diagnosis Dysphagia, unspecified type- Primary documented in this encounter Orders Case Request Count Last Ordered Date First Orde red Date CASE REQUEST GI 1 12/09/2023 documented in this encounter Care Teams Bioinformatics Team Member Relationship Specialty Start Date End Date Liset Haynes MD PCP - General Family Medicine 08/05/22 documented as of this encounter
--- OUTSIDE RECORDS SUMMARY | 2024-07-24 00:10 | XMS_ITS | Encounter Summary ---
Author Organization [facility] Healthcare Address [address] [place] [address] Care Team Providers Care Mother Helper Name Role Phone Alexa Waldrop MD Primary Care Provider [phone] Reason for Visit * Reason Comments Fall * Auth/Cert Specialty Diagnoses / Procedures Referred By Contac t Referred To Contact Diagnoses SAH (subarachnoid hemorrhage) ([facility]/HCC) ([facility]) SAH Procedures N/A Referral ID Status Reason Start Date Expiration Date Visits Re quested Visits Authorized [id number] 1 1 Encounter Details Date Type Department Care Team (Latest Contact Info) Description 07/27/2023 8:03 AM DIRECTOR OF PURCHASING - 07/29/2023 1:59 PM DIRECTOR OF PURCHASING Hospital Encounter [facility] [address] [place] [address] Leon Gardner MD [address] [place] [address] Nader Drake MD [address] [facility] [place] [phone] [place] [address] Linentte Hicks MD [address] [facility] [place] [phone] [place] [address] SAH (subarachnoid hemorrhage) (CMS/HCC) (HCC) (Primary Dx); Fall, initial encounter; Complex laceration of right ear, initial encounter Discharge Disposition: Discharge to home, home health skilled care Social History Tobacco Use Types Packs/Day [...] Legal Sex Male 3:18 AM DIRECTOR OF PURCHASING Gender Identity Not on file Sexual Orientation Not on file documented as of this encounter Last Filed Vital Signs Vital Sign Reading Time Taken Comments Blood Pressure 126/70 07/29/2023 12:00 PM DIRECTOR OF PURCHASING Pulse 55 07/29/2023 12:13 PM DIRECTOR OF PURCHASING Temperature 36.9 ??C (98.4 ??F) 07/29/2023 10:[address] Respiratory Rate 19 07/29/2023 12:13 PM DIRECTOR OF PURCHASING Oxygen Saturation 95% 07/29/2023 12:13 PM DIRECTOR OF PURCHASING Inhaled Oxygen Concentration - - Weight 158.8 kg (350 lb) 07/27/2023 11:36 AM DIRECTOR OF PURCHASING Height 188 cm (6' 2.02 ) 07/27/2023 11:36 AM DIRECTOR OF PURCHASING Body Mass Index 44.92 07/27/2023 11:36 AM DIRECTOR OF PURCHASING documented in this encounter Discharge Summaries * Vianney Orr, RASHAAD - 07/29/2023 7:27 AM CST Images from the original note were not included. [facility] Trauma A Service Inpatient Discharge Summary This is a clinical resume for patient Neal Amaro for attending Linnette Hicks MD Admission Date: 07/27/2023 Admitting Provider: Leon Gardner MD Discharge Date: 07/29/2023 Hospitalization: Total duration of encounter: 2 days Team: Acute Care Surgery Primary Care Provider: Alexa Waldrop MD History of Present Illness: TRAUMA A 82 y.o. 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 Went to OSH and found to have SAH (OSH CT 07/27 0100); and laceration to right ear. At [facility] ED, found to have: Hgb 15.9; WBC 7.9; Cr 1.22; INR 1.18. Repeat CT 0900 w/ stable SAH. 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 Hospital Course: * SAH (subarachnoid hemorrhage) (CMS/HCC) (HCC) Assessment & Plan - Neurosurgery consulted - Repeat head CT (07/27): No significant change in size of a small left parafalcine subarachnoid hemorrhage with possible trace adjacent subdural component. A few scattered hyperdensities in the extra-axial space along right cerebral convexity of parietal lobe, likely represent additional small suba rachnoid hemorrhage - Keppra 500 mg BID x 7 days (07/27 - 08/02) - hold warfarin - Speech therapy was consulted to perform brain injury evaluation. - Physical therapy and Occupational therapy were consulted to evaluate the patient. Both PT and OT deemed patient appropriate to return home with family supervision Polycythemia Assessment & Plan #coagulopathy - last PE in 2015/2016 per chart review - had recurrence of PE despite IVC filter in 2014; was placed back on Xarelto with bleeding epidsode, then trialed Pradaxa (per PCP) with continued hematuria, and then switched to warfarin by PCP nothematology - last warfarin dose 07/26 morning - hold transfusions in setting of above issues - INR 1.1 07/27 Laceration of right ear Assessment & Plan - PRS consulted - s/p repair with 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 - Bacitracin TID x 3 days, then vaseline - HOB elevation - Pending recovery or discharge, please call [phone] or [phone] to schedule follow-up within 1-2 weeks to be seen by an BURT Type 2 diabetes mellitus, with long-term current use of insulin ([facility]) Assessment & Plan #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, [...] residual hernia that is chronic, soft, reducible Paroxysmal atrial fibrillation (CMS/HCC) ([facility]) Assessment & Plan - Continue home flecainide - Continue home metoprolol - suppressed on warfarin, flecainide; follows with cardiology outpatient - last TTE in 2018 w/ LVEF55% and no obvious structural issues Pulmonary embolism without acute cor pulmonale (HCC) Assessment & Plan - Hold warfarin - s/p IVC filter Hypothyroid Assessment & Plan - continue home levothyroxine Osteomyelitis of lumbar spine (HCC) Assessment & Plan - 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 at [facility] in 2015 - has been on chronic suppressive doxycycline since then per ID - doxycycline reordered Pure hypercholesterolemia Assessment & Plan - Continue home Lipitor 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 ([facility]) Assessment & Plan See Pulmonary Embolism Encounter for medication review Assessment & Plan 07/28 medications reviewed and updated through contact with [facility] Left knee pain Assessment & Plan - XR left knee: negative for acute fracture Morbid obesity with BMI of 45.0-49.9, adult ([facility]) Assessment & Plan - BMI 44.94 kg/m2 on admission Active Issues Requiring Follow Up: Follow up with Neurosurgery in 2-3 weeks with non-contrast CT head Follow up with Plastics in 1-2 weeks Followup with your primary care doctor for ongoing management of your chronic medical issues - [facility] has a primary care clinic that may be able to help if you don't have a primary care doctor - call [phone] to see if they can establish care. Operative Procedures Performed: Procedure name not found. No surgery found Discharge Physical Exam: Discharge Condition: fair Pulse: 62 Resp: 17 BP: 131/64 Temp: 36.9 ??C (98.4 ??F) Weight: (!) 158.8 kg (350 lb) Physical Exam Vitals and nursing note reviewed. Constitutional: Appearance: He is obese. Comments: Patient lying supine in bed. 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 Decreased vision in L eye. No change since fall according to patient. Cardiovascular: Rate and Rhythm: Normal rate. Rhythm irregular. Pulses: Normal pulses. Pulmonary: Effort: Pulmonary effort is normal. Comments: Encouraged patient to use IS. No accessory muscle usage noted. No cough noted. Abdominal: Palpations: Abdomen is soft. Comments: Large, rounded. Tolerating consistent carbohydrate diet. Genitourinary: Comments: Voiding Skin: General: Skin is dry. Comments: Right ear laceration repair well approximated with sutures without redness or drainage. Left forearm skin tear Neurological: Mental Status: He is alert and oriented to person, place, and time. Comments: Patient opened eyes spontaneously. Speech clear and coherent. Demonstrated spontaneous/purposeful movement in extremities. Followed commands. Diet: Diet Instructions Adult Discharge Diet Diet Type: Return to previous diet Consistent carbohydrate diet Increase protein intake for improved healing Glucerna supplemental shakes with meals and as needed Discharge Disposition: Discharge to home, home health skilled care Code Status at Discharge: Full Code Activity: Activity Instructions Discharge Activity: Additional Activity Restrictions: - Continue to follow restrictions and exercises as instructed by physical and occupational therapy. - Keep head of bed elevation to reduce swelling to your ear. Discharge Activity: Driving restrictions -Do not drive. Discharge Activity: Walking -You should walk at least 3 times per day and as tolerated. Patient may shower Shower with plain soap and water and pat dry daily Weight bearing status Weight bearing as tolerated in all extremities Restrictions RUE: Weight Bearing as Tolerated Restrictions LUE: Weight Bearing as Tolerated Restrictions RLE: Weight Bearing as Tolerated Restrictions LLE: Weight Bearing as Tolerated Wound Care: Carries out hygiene routine on a regular basis and Requires assistance keep wound clean and dry none Discharge Medications: Your medication list START taking these medications acetaminophen 325 mg tablet 650 mg, oral, Every 6 hours PRN Commonly known as: TYLENOL bacitracin 500 unit/gram ointment topical, 3 times daily levETIRAcetam 500 mg tablet 500 mg, oral, 2 times daily Commonly known as: KEPPRA oxyCODONE 5 mg immediate release tablet 5 mg, oral, Every 4 hours PRN Commonly known as: ROXICODONE senna-docusate 8.6-50 mg 1 tablet, oral, 2 times daily Commonly known as: PERICOLACE CONTINUE taking these medications albuterol HFA 90 mcg/actuation inhaler INHALE TWO PUFFS BY MOUTH EVERY 2-4 HOURS NEEDED FOR SHORTNESS OF BREATH OR WHEEZING Commonly known as: PROVENTIL HFA,VENTOLIN HFA,PROAIR HFA atorvastatin 20 mg tablet 20 mg, oral, Daily Commonly known as: LIPITOR azelastine 137 mcg (0.1 %) nasal spray ADMINISTER 2 SPRAYS INTO EACH NOSTRIL EVERY 12 HOURS Commonly known as: ASTELIN baclofen 10 mg tablet 10 mg Doctor's comments: Commonly known as: LIORESAL doxycycline 100 mg capsule 100 mg, oral, Every 12 hours Commonly known as: VIBRAMYCIN Farxiga 5 mg tablet oral, Daily Generic drug: dapagliflozin propanediol flecainide 50 mg tablet 50 mg, oral, 2 times daily Commonly known as: TAMBOCOR Flomax 0.4 mg extended release capsule 0.4 mg Doctor's comments: Generic drug: tamsulosin insulin lispro 100 unit/mL pen for injection 8-10 Units, subcutaneous, 3 times daily with meals Commonly known as: HumaLOG, ADMELOG LANTUS 100 unit/mL (3 mL) pen for injection inject by subcutaneous route as per insulin protocol Doctor's comments: Generic drug: insulin glargine levothyroxine 50 mcg tablet 50 mcg, oral, Daily Commonly known as: SYNTHROID metoprolol tartrate 25 mg immediate release tablet 25 mg Doctor's comments: Commonly known as: LOPRESSOR omeprazole 20 mg capsule 20 mg, oral, Daily Commonly known as: PriLOSEC Rover.comuch Ultra Test strip USE TO TEST BLOOD SUGAR THREE TIMES DAILY Generic drug: blood glucose diagnostic pregabalin 150 mg capsule 150 mg, oral, 3 times daily Commonly known as: LYRICA Trelegy Ellipta 200-62.5-25 mcg inhaler 1 puff, inhalation, Daily Generic drug: veqfdnvryis-lwwltvlyk-scdtmjya triamcinolone 0.1 % cream topical, 2 times daily Commonly known as: KENALOG STOP taking these medications diclofenac sodium 1 % gel Commonly known as: VOLTAREN fluticasone propionate 50 mcg/actuation nasal spray Commonly known as: FLONASE HYDROcodone-acetaminophen 7.5-325 mg per tablet Commonly known as: NORCO Vitamin D3 25 mcg (1,000 unit) capsule Generic drug: cholecalciferol warfarin 5 mg tablet Commonly known as: COUMADIN Discharge Instructions: Other Instructions Ambulatory referral to Home Health Service Line: Home Health Primary disciplines requested: Physical Therapy Secondary disciplines requested: Occupational Therapy Home Health Services: Therapy to Eval/Tx Therapy instructions: Evaluation/treatment Requested Start of Care Date: 24-48 hours Physician to follow patient's care (the person listed here will be responsible for signing ongoing orders): PCP I attest that I or another qualified licensed provider saw the patient 90 days prior to or 30 days post admission and this face to face encounter meets the necessary Home Health requirements. The face to face encounter occurred on (date): 07/28/2023 The encounter with the patient was in whole, or in part, for the following medical condition, whichis the primary reason for home health care. (List medical condition): subarachnoid hemorrhage, fall I certify that, based on my findings, the following services are medically necessary skilled home health services: Therapy to Eval/Tx Clinical findings that support the need for home care: Medical condition requiring skilled assessment/education I certify that my clinical findings support patient's homebound status. Homebound criteria met because: Requires assistance of another to leave home safely Abnormal gait/unsteady balance resulting in fall risk Call provider for: increased temperature -Temperature greater than 101 degrees F Call provider for: nausea, vomiting, diarrhea -If you have persistent nausea, vomiting or diarrhea that does not stop Call provider for: redness, tenderness, or signs of infection (pain, swelling, redness, odor or green/yellow discharge around incision site) Call provider for: severe uncontrolled pain Call provider for: any other concerns or questions - Please contact the Neurosurgery clinic at [phone] for questions, concerns, or appointments. - Please contact the Plastic Surgery Department at for questions, concerns, or appointments. - Please contact the Trauma Department if any problems develop, please call the Trauma office [phone]. Please be aware all medications including narcotic pain medications cannot be called in over the phone. To refill, an appointment will need to be made with the appropriate medical or surgicalservice. You may follow up with your primary care physician for long-term management of medicationsand long-term medical conditions. Call provider if: you feel dizzy, very tired or like you may faint Care Instructions: - Apply vaseline three times daily to your right ear laceration. Care Instructions: Right ear laceration - clean ear with plain soap and water and pat dry 3 times per day - apply Bacitracin to sutures 3 times per day for ONE more day then apply Vaseline ointment to sutures 3 times per day Care Instructions: Incentive Spirometer - Continue to use your incentive spirometer Care Instructions: Incentive Spirometer - Continue to use your incentive spirometer Care Instructions: No tub baths -No tub baths, whirlpools or swimming until your provider says it's ok. Care Instructions: Shower -You may shower daily with soap and warm water. Discharge instructions - Following medications have been stopped: - Warfarin: Do NOT take this medication until you follow up with Neurosurgery for re-evaluation. They will tell you when you can resume this medication. - Do NOT take any kind of blood thinner until you follow up with Neurosurgery. This includes thingslike over the counter aspirin and may include some over the counter medications for migraine, whichcan contain aspirin. If you have any questions about a medication, please call the Neurosurgery clinic at [phone]. Discharge instructions - Following medications have been stopped: Do NOT resume Warfarin until after follow up with Neurosurgery Special Instructions Left forearm skin tear - clean with plain soap and water and pat dry 2 times per day - apply thin layer of Bacitracin to skin tear, leave open to area or cover with non-stick bandaid, change 2 times per day and as needed For Follow Up [facility] at [phone] Follow up Contact Information for Follow-ups [facility] Neurosurgery Specialty: Neurosurgery [facility] [facility] [address] [facility] [address] Next Steps: Follow up Instructions: Follow up in 2-3 weeks. Call [phone] to schedule your Neurosurgery follow up andnoncontrast head CT. Questions: Instructions for follow-up (appointment date and time): Follow up in 2-3 weeks. Call [phone] to schedule your Neurosurgery follow up and noncontrast head CT. [facility] Specialty: Wound Care [address] [facility] [address] [facility] [address] [facility] [address] Next Steps: Follow up Instructions: Follow up with Trauma Surgery as needed. Call [phone] for questions or appointments. Questions: Instructions for follow-up (appointment date and time): Follow up with Trauma Surgery as needed. Call [phone] for questions or appointments. Alexa Waldrop MD Specialty: Family Medicine Relationship: PCP - General [address] [place] [address] Next Steps: Follow up Instructions: Follow up with your primary care provider in 2-4 weeks for medication review and hospital follow-up. Questions: To provider: ALEXA WALDROP Instructions for follow-up (appointment date and time): Follow up with your primary care provider in 2-4 weeks for medication review and hospital follow-up. [facility] Home Care Services Specialty: Home Health and Hospice [address] [facility] [address] Next Steps: Follow up Questions: Service Line: Home Health Primary disciplines requested: Physical Therapy Secondary disciplines requested: Occupational Therapy Home Health Services: Therapy to Eval/Tx Therapy instructions: Evaluation/treatment Requested Start of Care Date: 24-48 hours Physician to follow patient's care (the person listed here will be responsible for signing ongoing orders): PCP I attest that I or another qualified licensed provider saw the patient 90 days prior to or 30 days post admission and this face to face encounter meets the necessary Home Health requirements. The face to face encounter occurred on (date): 07/28/2023 The encounter with the patient was in whole, or in part, for the following medical condition, whichis the primary reason for home health care. (List medical condition): subarachnoid hemorrhage, fall I certify that, based on my findings, the following services are medically necessary skilled home health services: Therapy to Eval/Tx Clinical findings that support the need for home care: Medical condition requiring skilled assessment/education I certify that my clinical findings support patient's homebound status. Homebound criteria met because: Requires assistance of another to leave home safely Abnormal gait/unsteady balance resulting in fall risk Referral Status: Pending Authorization [facility] Surgery Specialty: Plastic Surgery [address] [facility] [address] [facility] [address] Next Steps: Follow up Instructions: Please call to schedule follow up in the Plastic Surgery Clinic in 1-2weeks for evaluation of your ear laceration. Questions: Instructions for follow-up (appointment date and time): Please call to schedule follow up in the Plastic Surgery Clinic in 1-2 weeks for evaluation of your ear laceration. Future Appointments Date Time Provider Department Center 08/06/2023 8:45 AM Collin Rojas MD [facility] [place] CAR [facility]VL Specialty 09/01/2023 9:30 AM [facility] [id number] BJ NDDC Endo [facility] Main All care plans discussed with rounding/operative attending: Tomeka Hinson MD I spent 60 minutes completing this hospital discharge. Vianney Orr NP 07/29/23 CC: Alexa Waldrop MD Cosigned by Tomeka Hinson MD at 07/29/2023 12:13 PM DIRECTOR OF PURCHASING CTOR OF PURCHASING CTOR OF PURCHASING documented in this encounter Medications at Time [...] 3 times every day 0 0 04/21/2016 doxycycline 100 mg tablet Take 1 tablet/capsule [...] (three) times a day with meals 05/12/2023 levETIRAcetam (KEPPRA) 500 mg tablet Take 1 tablet (500 mg total) by mouth 2 (two) times a day for 11 doses 11 tablet 07/29/2023 levothyroxine (SYNTHROID) 50 mcg tablet Take 1 [...] same meal each day 0 0 04/21/2016 Gina Valdezta 200-62.5-25 mcg inhaler Inhale 1 puff daily 06/19/2023 triamcinolone (KENALOG) 0.1 % cream Apply topically 2 (two) times a day 05/26/2023 bacitracin 500 unit/gram ointment Apply topically 3 (three) times a day for 1 day 15 g 07/29/2023 3 flecainide (TAMBOCOR) 50 mg tablet TAKE 1 TABLET BY MOUTH TWICE A DAY 180 tablet 06/26/2023 4 documented as of this encounter Ordered Prescriptions Prescription Sig Dispense Quantity Refills Last Filled Start Date End Date oxyCODONE (ROXICODONE) 5 mg immediate release tabletIndications: Pain Take 1 tablet (5 mg total) by mouth every 4 (four) hours as needed for pain 5 tablet 07/29/2023 senna-docusate (PERICOLACE) 8.6-50 mgIndications:cons tipation Take 1 tablet by mouth 2 (two) times a day 28 tablet 07/29/2023 levETIRAcetam (KEPPRA) 500 mg tablet Take 1 tablet (500 mg total) by mouth 2 (two) times a day for 11 doses 11 tablet 07/29/2023 acetaminophen (TYLENOL) 325 mg tabletIndications: Pain Take 2 tablets (650 mg total) by mouth every 6 (six) hours as needed for pain 30 tablet 07/29/2023 bacitracin 500 unit/gram ointment Apply topically 3 (three) times a day for 1 day 15 g 07/29/2023 3 documented in this encounter Discharge Disposition Disposition Code Departure Means Destination Comment s Discharge to home, home health skilled care documented in this encounter Progress Notes * Harshil Mendiola MD - 07/28/2023 2:49 PM CST Neurosurgery Follow Up Note This patient was seen by the Neurosurgery team for mGLF at 2300 07/26, L medial/parafalcine SAH, which was managed non-operatively, and followed with stable serial imaging. This patient was staffed with Dr. Rivas, who reviewed the patient's history and imaging. The patient should be seen in our clinic in 2-3 weeks with a non-contrast head CT. Patient will need to be reassessed regarding restarting anticoagulation in that visit. This appointment has been tasked by our service. Please include the appointment date in the discharge paperwork, which can be found under the Encounters tab. Please include this phone number to our clinic in the discharge instructions for the patient to confirm their appointment date and time: Appointment Scheduling: Doctor???s Office: Neurosurgery Specialty Care [facility], After hours emergency: or If there are further questions or concerns regarding this patient, please page the Neurosurgery call pager at [phone], and request the resident caring for Dr. Rivas's patients. Harshil Whelan MD CTOR OF PURCHASING CTOR OF PURCHASING * Maria Antonia Solano MD - 07/28/2023 11:24 AM CST Images from the original note were not included. [facility] Trauma A Service Floor Daily Progress Note Admit: 07/27/2023 8:03 AM Date: July 28, 2023 Length of Stay: 1 Attending: Linnette Hicks MD POD:* No surgery found * Subjective History: TRAUMA A 82 y.o. 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 Went to OSH and found to have SAH (OSH CT 07/27 0100); and laceration to right ear. At [facility] ED, found to have: Hgb 15.9; WBC 7.9; Cr 1.22; INR 1.18. Repeat CT 0900 w/ stable SAH. Edited by: Antony Colón MD at 07/28/2023 0453 Interval History: - Feeling very well this AM - L knee x ray negative for fractures - Glucose 100-180 range with half home glargine dose (getting 20U in the hospital) - Neurosurgery: continue to hold warfarin, q2 neuro checks - Plastics: bacitracin TID to R ear lac repair x3d (), then vaseline Objective Medications: Current Facility-Administered Medications: acetaminophen (TYLENOL) tablet 650 mg, 650 mg, oral, Q6H, Jorge L Chu MD, 650 mg at albuterol HFA (PROVENTIL HFA,VENTOLIN HFA,PROAIR HFA) 90 mcg/actuation inhaler 1 puff, 1 puff, inhalation, Q6H PRN (RT), Jorge L Chu MD atorvastatin (LIPITOR) tablet 40 mg, 40 mg, oral, Daily, Jorge L Chu MD, 40 mg at 07/28/23 0845 azelastine (ASTELIN) 137 mcg (0.1 %) nasal spray 1 spray, 1 spray, each nostril, Daily, Jorge L Chu MD, 1 spray at 07/28/23 0914 bacitracin 500 unit/gram ointment packet 1 Application, 1 Application, topical, TID, Cyndie Durham NP, 1 Application at 07/28/23 0846 baclofen (LIORESAL) tablet 10 mg, 10 mg, oral, TID with meals, Jorge L Chu MD, 10 mg at 07/28/23 0846 Carrier Fluids for Secondary Infusion - 0.9% Sodium Chloride, 30 mL, intravenous, PRN, Jorge L Chu MD cholecalciferol (VITAMIN D-3) capsule 1,000 Units, 1,000 Units, oral, Daily, Jorge L Chu MD,1,000 Units at 07/28/23 0847 dapagliflozin propanediol (FARXIGA) tablet 5 mg, 5 mg, oral, Daily, Jorge L Chu MD, 5 mg at 07/28/23 0846 dextrose gel in packet 15 g, 15 g, oral, Q15 Min PRN OR dextrose (D10W) 10% bolus 250 mL, 250 mL, intravenous, Q15 Min PRN, Jorge L Chu MD doxycycline (VIBRAMYCIN) tablet/capsule 100 mg, 100 mg, oral, BID - special, Jorge L Chu MD,100 mg at 07/28/23 0631 flecainide (TAMBOCOR) tablet 50 mg, 50 mg, oral, BID, Jorge L Chu MD, 50 mg at 07/28/23 0846 fluticasone propionate (FLONASE) 50 mcg/actuation nasal spray 1 spray, 1 spray, each nostril, Daily, Jorge L Chu MD, 1 spray at 07/28/23 0913 erabzmmquco-ohbnxkdni-visktmvt (TRELEGY ELLIPTA) 100-62.5-25 mcg inhaler 1 puff, 1 puff, inhalation, Daily (RT), Cain Arce MD, 1 puff at 07/28/23 0900 glucagon injection 1 mg, 1 mg, intramuscular, Q30 Min PRN, Jorge L Chu MD insulin glargine (LANTUS, SEMGLEE) 100 unit/mL injection 20 Units, 20 Units, subcutaneous, Nightly,Cyndie Durham NP, 20 Units at 07/27/23 2117 insulin lispro (HumaLOG, ADMELOG) 100 unit/mL injection 0-10 Units, 0-10 Units, subcutaneous, TID with meals, Cyndie Durham NP insulin lispro (HumaLOG, ADMELOG) 100 unit/mL injection 0-5 Units, 0-5 Units, subcutaneous, Nightly, Cyndie Durham NP levETIRAcetam (KEPPRA) 500 mg/100 mL in sodium chloride (premix) 500 mg, 500 mg, intravenous, Q12H [facility] Elizabeth, MD, Last Rate: 0 mL/hr at 07/27/23 0922, 500 mg at 07/28/23 0854 levothyroxine (SYNTHROID) tablet 50 mcg, 50 mcg, oral, Daily, Jorge L Chu MD, 50 mcg at 07/28/23 0845 metoprolol tartrate (LOPRESSOR) immediate release tablet 12.5 mg, 12.5 mg, oral, BID, Jorge L Chu MD, 12.5 mg at 07/28/23 0846 oxyCODONE (ROXICODONE) tablet 5 mg, 5 mg, oral, Q4H PRN, Jorge L Chu MD pantoprazole DR (PROTONIX) extended release tablet 40 mg, 40 mg, oral, Daily, Jorge L Chu MD, 40 mg at 07/28/23 0847 pregabalin (LYRICA) capsule 75 mg, 75 mg, oral, TID, Jorge L Chu MD, 75 mg at 07/28/23 0846 senna-docusate (PERICOLACE) 8.6-50 mg per tablet 1 tablet, 1 tablet, oral, BID, Jorge L Chu MD, 1 tablet at 07/28/23 0846 sodium chloride 0.9% flush 0.5-20 mL, 0.5-20 mL, intra-catheter, Q8H AUDELIA, Jorge L Chu MD, 10mL at 07/28/23 0631 sodium chloride 0.9% flush 0.5-20 mL, 0.5-20 mL, intra-catheter, PRN, Jorge L Chu MD tamsulosin (FLOMAX) extended release capsule 0.4 mg, 0.4 mg, oral, Daily with dinner, Jorge L Chu MD, 0.4 mg at 07/27/23 1755 Past Medical: Past Medical History: Diagnosis Date Arthritis Atrial fibrillation (CMS/HCC) (HCC) Dysphagia GERD (gastroesophageal reflux disease) Hyperlipidemia Hypertension Hypothyroidism Type 2 diabetes mellitus (HCC) Surgical History: Past Surgical History: Procedure Laterality Date ANKLE SURGERY BACK SURGERY x2 COLONOSCOPY REPLACEMENT TOTAL KNEE ONCOLOGIC Bilateral ROTATOR CUFF REPAIR Right SPLENECTOMY, TOTAL UPPER GASTROINTESTINAL ENDOSCOPY WHIPPLE PROCEDURE W/ LAPAROSCOPY Is&Os: I/O last 2 completed shifts: In: 350 [IV Piggyback:350] Out: 1375 [Urine:1375] I/O this shift: In: - Out: 175 [Urine:175] Physical Exam: 24hr Min/Max: Temp Min: 36.6 ??C (97.8 ??F) Max: 37.5 ??C (99.5 ??F) Pulse Min: 55 Max: 69 BP Min: 70/45 Max: 168/84 Resp Min: 13 Max: 21 SpO2 Min: 88 % Max: 96 % Physical Exam Constitutional: General: He is not in acute distress. HENT: Head: Normocephalic. Ears: Comments: R ear lac repaired without drainage or redness Eyes: Comments: R eye decreased vision No vision in left eye Pulmonary: Effort: Pulmonary effort is normal. No respiratory distress. Abdominal: General: There is no distension. Palpations: Abdomen is soft. Comments: Rounded Musculoskeletal: Right lower leg: Edema present. Left lower leg: Edema present. Comments: R hand with edema, L hand normal Skin: General: Skin is warm and dry. Comments: General discoloration Neurological: General: No focal deficit present. Mental Status: He is alert. Psychiatric: Mood and Affect: Mood normal. Behavior: Behavior normal. Labs/Imaging: Recent Labs Lab Units 07/27/23211407/27/23 0857 WBC K/cumm 6.3 7.9 HEMOGLOBIN g/dL 14.4 15.9 HEMATOCRIT % 44.4 48.3 PLATELETS K/cumm 213 256 Recent Labs Lab Units 07/28/23 1106 07/28/23 0742 07/28/23 0244 07/27/235 07/27/23 1050 07/27/23 0857 SODIUM mmol/L -- -- -- 143 -- 143 POTASSIUM PLASMA mmol/L -- -- -- 4.6 -- 4.4 CHLORIDE mmol/L -- -- -- 111* -- 108 CO2 mmol/L -- -- -- 24 -- 31 BUN SERUM mg/dL -- -- -- 15 -- 16 CREATININE mg/dL -- -- -- 1.10 -- 1.22 GLUCOSE mg/dL -- -- -- 136 -- 89 POC GLUCOSE MONITOR mg/dL 219* 97 116 -- < > -- CALCIUM mg/dL -- -- -- 7.4* -- 8.8 < > = values in this interval not displayed. Recent Labs Lab Units 07/27/23 0857 PROTIME (PT) sec 13.5 INR 1.18 XR Knee Left 1 or 2 Views Result Date: 07/27/2023 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 Electronically signed by: Doug Pineda MD Neuro CT Outside Consult Result Date: 07/27/2023 1. Small subarachnoid hemorrhage along the left falx with possible trace falcine subdural hemorrhage component. 2. No evidence of acute fracture in the cervical spine. The findings, conclusions and recommendations within this report do not replace the initial findings, conclusions and recommendations made at the facility where the study was performed based upon the imaging and clinical condition at that time. Comparison with the prior report and clinical history is necessary. The provided images may or may not represent the the [place] source data set and thus may contain changes that may lower the accuracy of this second- opinion interpretation. Dictated by: Saud Iraheta M.D. The radiology attending physician has personally reviewed this study, and had reviewed and/or edited this written report and agrees with it. Electronically signed by: Yaron Rush M.D. Neuro CT Outside Consult Result Date: 07/27/2023 1. Small subarachnoid hemorrhage along the left falx with possible trace falcine subdural hemorrhage component. 2. No evidence of acute fracture in the cervical spine. The findings, conclusions and recommendations within this report do not replace the initial findings, conclusions and recommendations made at the facility where the study was performed based upon the imaging and clinical condition at that time. Comparison with the prior report and clinical history is necessary. The provided images may or may not represent the the [place] source data set and thus may contain changes that may lower the accuracy of this second- opinion interpretation. Dictated by: Saud Iraheta M.D. The radiology attending physician has personally reviewed this study, and had reviewed and/or edited this written report and agrees with it. Electronically signed by: Yaron Rush M.D. CT Head WO Contrast Result Date: 07/27/2023 1. No significant change in size of a small left parafalcine subarachnoid hemorrhage with possible trace adjacent subdural component. 2. A few scattered hyperdensities in the extra-axial space along the right cerebral convexity of the parietal lobe are better evaluated on this examination, though may have been present on the outside study, and likely represent additional small subarachnoid hemorrhage. Dictated by: Saud Iraheta M.D. The radiology attending physician has personally reviewed this study, and had reviewed and/or edited this written report and agrees with it. Electronically signed by: Yaron Rush M.D. I have independently reviewed and interpreted all relevant lab and radiographic data. Assessment/Plan Trauma Surgical Assessment and Plan Hypothyroid Assessment & Plan - continue home levothyroxine Polycythemia Assessment & Plan #coagulopathy - last PE in per chart review - had recurrence of PE despite IVC filter in 2014; was placed back on Xarelto and then switched to warfarin due to bleeding episode - last warfarin dose 07/26 morning - hold transfusions in setting of above issues - INR 1.1 07/27 Left knee pain Assessment & Plan - XR left knee pending Laceration of right ear Assessment & Plan - PRS consulted - s/p repair with 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 - Bacitracin TID x 3 days, then vaseline - HOB elevation - Pending recovery or discharge, please call [phone] or [phone] to schedule follow-up within 1-2 weeks to be seen by an BURT Type 2 diabetes mellitus, with long-term current use of insulin ([facility]) Assessment & Plan #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, 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; path not available to view - Home regimen: insulin glargine 40 units nightly, insulin lispro 8 units with meals - HDSSI, Accu-checks ACHS, start glargine 20 units - last A1C from 2019 7.5 - surgery complicated by incisional hernia that has required mesh repair at OSH (no records available) with residual hernia that is chronic, soft, reducible Osteomyelitis of lumbar spine ([facility]) Assessment & Plan - 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 at [facility] in 2016 - has been on chronic suppressive doxycycline since then per ID - doxycycline reordered Paroxysmal atrial fibrillation ([facility]/HCC) ([facility]) Assessment & Plan - Continue home flecainide - Continue home metoprolol - suppressed on warfarin, flecainide; follows with cardiology outpatient - last TTE in 2019 w/ [id number]% and no obvious structural issues Pulmonary embolism without acute cor pulmonale ([facility]) Assessment & Plan - Hold warfarin - s/p IVC filter Morbid obesity with BMI of 45.0-49.9, adult ([facility]) Assessment & Plan - BMI 44.94 kg/m2 on admission Pure hypercholesterolemia Assessment & Plan - Continue home Lipitor 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) Assessment & Plan See Pulmonary Embolism * SAH (subarachnoid hemorrhage) (CMS/HCC) (HCC) Assessment & Plan - Neurosurgery consulted - Repeat head CT unchanged - Keppra 500 mg BID x 7 days (07/27 - 08/02) - Neuro checks q2h - BI consult, PT/OT - hold warfarin FEN: These fluid and electrolyte abnormalities are being treated, evaluated or monitored: No fluid or electrolyte disorders Lines/Drains/Tubes: PIVs DVT Prophylaxis: mechanical Diet: Adult Diet Restricted; Consistent Carbohydrate Activity: as tolerated GI Prophylaxis: protonix, pericolace Code Status: Full Code Total time spent included the following activities caring for this patient: Patient chart review, Examination and evaluation, Ordering medications/tests/procedures, Referring & communicating withother health health care social worker, and Documenting clinical information in the health record 30 minutes All care plans discussed with rounding/operative attending: MD Maria Antonia Metz MD Cosigned by Tomeka Hinson MD at 07/28/2023 11:50 AM DIRECTOR OF PURCHASING CTOR OF PURCHASING CTOR OF PURCHASING Associated attestation - Tomeka Hinson MD - 07/28/2023 11:50 AM DIRECTOR OF PURCHASING I have seen and examined the patient on 07/28/23. I agree with the findings and plan of care as documented in the resident's/fellow's note. Tomeka Hinson MD Acute & Critical Care Surgery * Eva Hilliard, PT - 07/28/2023 11:10 AM CST Physical Therapy Physical Therapy Initial Assessment NOTE: This is a summary note for the casey assessments completed during the evaluation session. For full details, review chart review for all flowsheets documented on by this physical therapist on thisdate. Vital signs documented in vital signs flowsheet. Assessment Assessment Problem List: Gait deviations, Decreased endurance, Impaired balance, Decreased mobility, Impaired vision Problem List Comments: Pt with SAH 2/2 fall presents with deficits in functional mobility due to impairments in balance, strength, endurance. These deficits prevent full participation in home and community ambulation. Plan Plan Plan : Plan of care initiated, If this is the last note, consider this the discharge summary PT Recommendation and Plan Recommendation/Plan PT Recommendation/Plan: Home with 24 hour supervision, Home Health PT Patient at high risk for: Falls PT Frequency during current admission: 3-5x/wk Treatment/Interventions during current admission: Balance Training, Bed mobility, Functional activity, Endurance training, Strengthening, Therapeutic activity, Therapeutic exercise, Transfer training PT - Next Appointment: 07/30/23 PT Evaluation Complete: Yes General Information General Chart Reviewed: Yes Session Type: Evaluation PT Received On: 07/28/23 Safe Environment: Arm band checked, Patient found sitting in chair, Session completed bedside Subjective: Agreeable to Therapy Prior Function Prior Function Level of [place]: Independent functional transfers, Independent with ambulation (with WW) Lives With: Spouse Receives Help From: Spouse/Significant other (multimedia instructional designer assist available) Fall within the last 6 months: Yes Fall within the last 6 months comment: 2 falls- one fall out of bed and other fall the patient reached for the doorframe Home Living Home Living Type of Home: House Home Layout: Able to live on main level with bedroom/bathroom Home Access: Ramped entrance Bathroom Equipment: Grab bars in shower/tub, Built-in shower seat, Toilet raiser Home Mobility Equipment-Available: Wheeled walker Home Mobility Equipment-Currently Using: Wheeled walker Precautions Precautions Precautions: Fall risk Pain Pain Assessment Pain Assessment: No/denies pain Cognition Cognition Arousal/Alertness: Alert, Appropriate responses to stimuli Orientation : Oriented X4 (person, place, time, situation) 6 Clicks Basic Mobility - 6 Click How much difficulty does the patient have: Turning over in bed: A little How much difficulty does the patient currently have: Sitting down and standing up from a chair witharms?: A little How much difficulty does the patient have: Moving from lying on back to sitting on the side of the bed?: A little How much difficulty does the patient have: Moving to and from a bed to a chair including wheelchair?: A little How much help does the patient currently need: Walk in hospital room?: A little How much help from another person does the patient currently need: Climbing 3-5 steps with a railing?: A little Total 6 Click Score (range 6-24): 18 Score Interpretation: 18 Bed Mobility Transfers Transfer 1 Transfer From 1: Sit Transfer Type 1: To and from Transfer to 1: Stand Technique 1: Sit to stand, Stand to sit Transfer Device 1: Wheeled walker Transfer Level of Assistance 1: Standby Assist Trials/Comments 1: for safety Transfers 2 Transfer From 2: Sit, Toilet Transfer Type 2: To and from Transfer to 2: Stand Technique 2: Sit to stand, Stand to sit Transfer Device 2: (grab bars) Transfer Level of Assistance 2: Standby Assist Trials/Comments 2: for safety Balance Static Sitting Balance Static Sitting-Level of Assistance: Independent Static Standing Balance Static Standing-Balance Support: Bilateral upper extremity supported (on WW) Static Standing-Standing Surface: Floor Static Standing-Level of Assistance: Close supervision Static Standing-Comment/# of Minutes: flexed posture Ambulation Ambulation 1 Distance (ft) 1: 10, 10 Surface 1: Level tile Device 1: Wheeled walker Assistance 1: Standby Assist Gait: Requires verbal cues to 1: Prevent bumping into environmental barriers ([place]/furniture) Gait Deviations 1: Base of support - increased, Leny - decreased, Posture - flexed, Step length - decreased Stairs Curbs RLE Assessment RLE Assessment RLE Assessment: Within Functional Limits LLE Assessment LLE Assessment LLE Assessment: Within Functional Limits Equipment Used Safe Environment End of Session Safe Environment End of Therapy Session: Patient left in recliner, Chair alarm in place and activated, RN notified, Call light within reach Other Comments PT Goals Multi-Disciplinary Problems (from Physical Therapy) Active Problems Problem: Mobility Start Date: 07/28/23 Goal Start Date Expected End Date End Date LTG - Patient will demonstrate functional mobility with the following level of assist: mod I 07/28/23 10/10/23 -- Goal Start Date Expected End Date End Date STG - Patient will ambulate 50 feet supervision WW 07/28/23 08/11/23 -- Problem: Transfers Start Date: 07/28/23 Goal Start Date Expected End Date End Date STG - Patient to transfer to and from sit to supine with SBA 07/28/23 08/11/23 -- CTOR OF PURCHASING * Saurabh Null MD - 07/28/2023 10:25 AM CST Plastic Surgery Daily Progress July 28, 2023 10:25 AM Subjective Neal Amaro is a 82 y.o. male with right ear laceration after fall s/p bedside repair by PRS 07/27 No acute events overnight. Objective MOST RECENT VITALS: Vitals: 07/28/23 0400 07/28/23 0500 07/28/23 0600 07/28/23 0850 BP: 145/67 153/82 168/84 BP Location: Right arm Pulse: 62 63 Resp: 18 15 Temp: 37.3 ??C (99.2 ??F) TempSrc: Oral SpO2: 94% 95% Weight: Height: I&O Intake/Output Summary (Last 24 hours) at 07/28/2023 1025 Last data filed at 07/28/2023 0755 Gross per 24 hour Intake 250 ml Output 1550 ml Net -1300 ml Physical Exam: General: NAD, well-developed well-nourished Eyes: sclera nonicteric ENT: right ear with incisions intact. Lungs: Unlabored breathing on RA Cardiac: regular rate Abdomen: Soft, nontender, nondistended. Extremities: Warm well perfused. No edema. Neurologic: Nonfocal and grossly intact. Psychiatric: Normal mood and affect. Lab/Radiology/Diagnostic Review: LABS: Recent Labs Lab Units 07/27/23211407/27/23 0857 WBC K/cumm 6.3 7.9 HEMOGLOBIN g/dL 14.4 15.9 HEMATOCRIT % 44.4 48.3 PLATELETS K/cumm 213 256 Recent Labs Lab Units 07/28/23 0742 07/28/23 0244 07/27/23 2115 07/27/23 1050 07/27/23 0857 SODIUM mmol/L -- -- 143 -- 143 POTASSIUM PLASMA mmol/L -- -- 4.6 -- 4.4 CHLORIDE mmol/L -- -- 111* -- 108 CO2 mmol/L -- -- 24 -- 31 ANIONGAP mmol/L -- -- 8 -- 4 GLUCOSE mg/dL -- -- 136 -- 89 POC GLUCOSE MONITOR mg/dL 97 116 -- < > -- BUN SERUM mg/dL -- -- 15 -- 16 CREATININE mg/dL -- -- 1.10 -- 1.22 CALCIUM mg/dL -- -- 7.4* -- 8.8 ALBUMIN g/dL -- -- -- -- 3.4* ALK PHOS Units/L -- -- -- -- 127 ALT Units/L -- -- -- -- 23 AST Units/L -- -- -- -- 26 BILIRUBIN TOTAL mg/dL -- -- -- -- 0.7 < > = values in this interval not displayed. Lab Results Lab Value Date/Time PT 13.5 07/27/2023 0857 INR 1.18 07/27/2023 0857 IMAGING XR Knee Left 1 or 2 Views Result Date: 07/27/2023 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 Electronically signed by: Doug Pineda MD Neuro CT Outside Consult Result Date: 07/27/2023 1. Small subarachnoid hemorrhage along the left falx with possible trace falcine subdural hemorrhage component. 2. No evidence of acute fracture in the cervical spine. The findings, conclusions and recommendations within this report do not replace the initial findings, conclusions and recommendations made at the facility where the study was performed based upon the imaging and clinical condition at that time. Comparison with the prior report and clinical history is necessary. The provided images may or may not represent the the [place] source data set and thus may contain changes that may lower the accuracy of this second- opinion interpretation. Dictated by: Saud Iraheta M.D. The radiology attending physician has personally reviewed this study, and had reviewed and/or edited this written report and agrees with it. Electronically signed by: Yaron Rush M.D. Neuro CT Outside Consult Result Date: 07/27/2023 1. Small subarachnoid hemorrhage along the left falx with possible trace falcine subdural hemorrhage component. 2. No evidence of acute fracture in the cervical spine. The findings, conclusions and recommendations within this report do not replace the initial findings, conclusions and recommendations made at the facility where the study was performed based upon the imaging and clinical condition at that time. Comparison with the prior report and clinical history is necessary. The provided images may or may not represent the the [place] source data set and thus may contain changes that may lower the accuracy of this second- opinion interpretation. Dictated by: Saud Iraheta M.D. The radiology attending physician has personally reviewed this study, and had reviewed and/or edited this written report and agrees with it. Electronically signed by: Yaron Rush M.D. CT Head WO Contrast Result Date: 07/27/2023 1. No significant change in size of a small left parafalcine subarachnoid hemorrhage with possible trace adjacent subdural component. 2. A few scattered hyperdensities in the extra-axial space along the right cerebral convexity of the parietal lobe are better evaluated on this examination, though may have been present on the outside study, and likely represent additional small subarachnoid hemorrhage. Dictated by: Saud Iraheta M.D. The radiology attending physician has personally reviewed this study, and had reviewed and/or edited this written report and agrees with it. Electronically signed by: Yaron Rush M.D. Assessment/Plan Neal Amaro is a 82 y.o. male with right ear laceration after fall s/p bedside repair by PRS 07/27 PLAN: [ ] Abx: per primary, baci TID to incision for 3 days (07/30), vaseline after [ ] Activity/Positioning: HOBE [ ] Anticoagulation: per primary [ ] Consults: ACCS primary [ ] Diet: per primary [ ] Drains: none [ ] Dressing: none [ ] Labs/Monitoring: per primary [ ] Pain: per primary [ ] Therapy: per primary [ ] Dispo: per primary Saurabh Null MD 07/28/2023 If you have questions, please check Amion to find the resident responsible for this patient's care.If uncertain, please call: Week 7AM - 5PM please call the Plastic Surgery Consult Pager [phone] to be directed to thecorrect Plastic Surgery resident. Weeknights 5PM - 7AM, All day on Weekends, All day on Holidays please call the Bread Molder to find theOn Call Plastic Surgery resident Cosigned by Sapphire Hernandez MD at 07/28/2023 1:13 PM DIRECTOR OF PURCHASING CTOR OF PURCHASING CTOR OF PURCHASING * Nandini Lindsay OT - 07/28/2023 8:28 AM CST Occupational Therapy Occupational Therapy Initial Assessment NOTE:This is a summary note for the casey assessments completed during the evaluation session. For full details, review chart review for all flowsheets documented on by this Occupational Therapist on this date. Vital signs documented in vital signs flowsheet. Assessment Assessment Problem List: Decreased balance, Decreased IADL independence, Decreased ADL independence, Decreasedfunctional mobility, Decreased endurance Plan Plan Plan: If this is the last note, consider this the discharge summary, Plan of care initiated OT Recommendation and Plan Recommendation/Plan OT Recommendation: Home with 24 hour supervision, Home Health OT OT Frequency during current admission: 3-5x/wk Treatment/Interventions during current admission: Balance Training, ADL/IADL retraining, Functionalactivity, Functional mobility training, Functional transfer training, Therapeutic exercise, Therapeutic activity, Compensatory technique education OT - Next Appointment: 07/29/23 OT Evaluation Complete: Yes General Information General Chart Reviewed: Yes Session Type: Evaluation OT Received On: 07/28/23 Safe Environment: Arm band checked, Patient found sitting in chair, Gait belt utilized for all out of bed mobility Subjective: Agreeable to Therapy Family/Caregiver Present: No Occupational Therapy-Patient Goal: pt would like to go home Precautions Precautions Precautions: Fall risk Home Living Home Living Type of Home: House Home Layout: Two level, Able to live on main level with bedroom/bathroom Home Access: Ramped entrance Bathroom Shower/Tub: Walk-in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 Comparison with the prior report and clinical history is necessary. The provided images may or may not represent the the [place] source data set and thus may contain changes that may lower the accuracy of this second- opinion interpretation. Dictated by: Saud Iraheta M.D. Neuro CT Outside Consult Result Date: 07/27/2023 1. Small subarachnoid hemorrhage along the left falx with possible trace falcine subdural hemorrhage component. 2. No evidence of acute fracture in the cervical spine. The findings, conclusions and recommendations within this report do not replace the initial findings, conclusions and recommendations made at the facility where the study was performed based upon the imaging and clinical condition at that time. Comparison with the prior report and clinical history is necessary. The provided images may or may not represent the the [place] source data set and thus may contain changes that may lower the accuracy of this second- opinion interpretation. Dictated by: Saud Iraheta M.D. Cosigned by Linnette Hicks MD at 07/30/2023 12:34 PM DIRECTOR OF PURCHASING CTOR OF PURCHASING CTOR OF PURCHASING Associated attestation - Linnette Hicks MD - 07/30/2023 12:34 PM DIRECTOR OF PURCHASING I have seen and examined the patient on July 27 2023. I agree with the findings and plan of care as documented in the resident's/fellow's note.. * Saurabh Null MD - 07/27/2023 9:13 AM CSTAssociated Order(s): IP CONSULT TO PLASTIC SURGERY Images from the original note were not included. Plastic & Reconstructive Surgery July 27, 2023 1:17 PM Reason for Consult: Right ear/cartilage laceration from GLF Requesting Provider: ED Consulting Provider: Dr. Hernandez Patient (home) HPI: Neal Amaro is a 82 y.o. male presenting to the ED with left ear laceration after sustaining injury due to fall. Patient history is obtained from EMS, ED team and the patient. 82 yo M p/w above after fall this AM. CT brain w/o facial bone fx. 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 Patient denies neck pain or tenderness, difficulty breathing, numbness or paresthesias, diplopia or changes in vision/hearing/voice/occlusion, epistaxis, or rhinorrhea. Patient denies other injuries. Past Medical History: Diagnosis Date Arthritis Atrial fibrillation (CMS/HCC) (HCC) Dysphagia GERD (gastroesophageal reflux disease) Hyperlipidemia Hypertension Hypothyroidism Type 2 diabetes mellitus (HCC) Past Surgical History: Procedure Laterality Date ANKLE SURGERY BACK SURGERY x2 COLONOSCOPY REPLACEMENT TOTAL KNEE ONCOLOGIC Bilateral ROTATOR CUFF REPAIR Right SPLENECTOMY, TOTAL UPPER GASTROINTESTINAL ENDOSCOPY WHIPPLE PROCEDURE W/ LAPAROSCOPY Prior to Admission medications Medication Sig Start Date End Date Taking? Authorizing Provider acetaminophen 500 mg capsule Take 2 capsules (1,000 mg total) by mouth every 6 (six) hours 03/16/19 Ousmane Brooks MD albuterol HFA (PROVENTIL HFA,VENTOLIN HFA,PROAIR HFA) 90 mcg/actuation inhaler INHALE TWO PUFFS BY MOUTH EVERY 2-4 HOURS NEEDED FOR SHORTNESS OF BREATH OR WHEEZING 05/26/23 Dee Barros MD atorvastatin (LIPITOR) 40 mg tablet TAKE 1 TABLET BY MOUTH EVERY DAY 08/01/21 Norberto Cordero, azelastine (ASTELIN) 137 mcg (0.1 %) nasal spray ADMINISTER 2 SPRAYS INTO EACH NOSTRIL EVERY 12 HOURS 06/26/23 Dee Barros MD baclofen (LIORESAL) 10 mg tablet take 1 tablet by oral route 3 times every day 04/21/16 Chapo Lo, cholecalciferol (VITAMIN D3) 1,000 unit capsule take 1 Capsule by Oral route 2 times every day 04/21/16 Chapo Lo DO diclofenac sodium (VOLTAREN) 1 % gel APPLY 4 GRAMS TOPICALLY FOUR TIMES DAILY - APPLY TO LEFT SHOULDER AND ARM DAILY UP TO 4 TIMES A DAY 06/09/23 Dee Barros MD doxycycline (doxycycline hyclate) 100 mg capsule take 1 capsule by oral route 2 times every day 04/21/16 Chapo Lo, Farxiga 5 mg tablet Take by mouth daily Dee Barros MD flecainide (TAMBOCOR) 50 mg tablet TAKE 1 TABLET BY MOUTH TWICE A DAY 06/26/23 Collin Rojas MD fluticasone propionate (FLONASE) 50 mcg/actuation nasal spray ADMINISTER 1 SPRAY INTO EACH NOSTRIL EVERY 12 HOURS 06/29/23 Dee Barros MD HYDROcodone-acetaminophen (NORCO) 7.5-325 mg per tablet Take by mouth every 6 (six) hours as needed04/15/23 Dee Barros MD insulin glargine (LANTUS SOLOSTAR) 100 unit/mL (3 mL) insulin pen inject by subcutaneous route as per insulin protocol 04/21/16 Chapo Lo, insulin lispro (HumaLOG) 100 unit/mL cartridge inject by subcutaneous route per prescriber's instructions. Insulin dosing requires individualization. 04/21/16 Chapo Lo, levothyroxine (SYNTHROID) 50 mcg tablet Take 1 tablet (50 mcg total) by mouth daily 08/08/19 Dee Barros MD metoprolol (LOPRESSOR) 25 mg tablet 1/2 tab bid 04/21/16 Chapo Lo, omeprazole (PriLOSEC) 20 mg capsule Take 1 capsule (20 mg total) by mouth daily 04/25/23 Dee Barros MD OneTouch Ultra Test strip USE TO TEST BLOOD SUGAR THREE TIMES DAILY 04/20/23 Dee Barros MD pregabalin (LYRICA) 75 mg capsule take 1 capsule by oral route 3 times every day 04/21/16 Chapo Lo, tamsulosin (FLOMAX) 0.4 mg capsule,extended release 24hr take 1 capsule by oral route every day 1/2hour following the same meal each day 04/21/16 Chapo Lo DO Trelegy Ellipta 100-62.5-25 mcg inhaler USE 1 INHALATION DAILY 07/26/20 Dee Barros MD triamcinolone (KENALOG) 0.1 % cream Apply topically 2 (two) times a day 05/26/23 Dee Barros MD warfarin (COUMADIN) 3 mg tablet Take 1 tablet (3 mg total) by mouth daily 03/16/19 Ousmane Brooks MD Allergies Allergen Reactions Adhesive Tape-Silicones Flushing (skin) Social History Tobacco Use Smoking status: Former Smokeless tobacco: Never Substance and Sexual Activity Drug use: Never Sexual activity: Defer Alcohol Use: Not on file Occupation: retired Family History Family history unknown: Yes Review of Systems: As per HPI, and: General: No fevers, chills Vision: No diplopia, no scleral icterus Pulmonary: No SOB, no cough CV: No palpitations, syncope GI: No abdominal pain, diarrhea, constipation : No hematuria, incontinence Heme/Onc: No anemia, easy bruising Neuro: No seizures, tremor Psych: No depression, anxiety Skin: No rashes, alopecia Objective Vitals: 24hr Min/Max: Temp Min: 36.5 ??C (97.7 ??F) Max: 36.5 ??C (97.7 ??F) Pulse Min: 61 Max: 72 BP Min: 141/77 Max: 163/73 Resp Min: 15 Max: 21 SpO2 Min: 92 % Max: 98 % Most Recent: Vitals: 07/27/23 1110 07/27/23 1135 07/27/23 1136 07/27/23 1205 BP: 141/77 153/63 BP Location: Right arm Patient Position: Reclining Pulse: 72 70 69 Resp: 18 17 19 Temp: TempSrc: SpO2: 96% 98% 96% Weight: (!) 158.8 kg (350 lb) Physical Exam: General: NAD, alert and oriented x3 Lungs: Unlabored breathing on RA Cardiac: regular rate Abdomen: Soft, nontender, nondistended. Extremities: Warm well perfused. No edema. Neurologic: Nonfocal and grossly intact. Psychiatric: Normal mood and affect. FOCUSED CRANOIFACIAL EXAM Inspection: edema, ecchymosis, lacerations, or abrasions? - yes; foreign body or contamination? - no Palpation: tenderness, crepitus, bony step-offs? - no bony instability/mobility? - no Sensation: intact bilaterally in trigeminal nerve (CN5 V1-3; supraorbital, infraorbital, mental) distributions? - yes Motor: intact facial nerve bilaterally (frontal, zygomatic, buccal, marginal mandibular, and cervical)? - yes Oral/Intraoral exam: intraoral lacerations? - no, limitations in jaw opening/closing? - no , loose or missing teeth? - no, normal occlusion? - yes Ocular exam: pupils equal, round, reactive to light; extraocular movements intact without evidence of entrapment or palsy; no proptosis, no enophthalmus or telecanthus? - no Nasal exam: lacerations, deviation, septal hematoma, CSF rhinorrhea? - no Auricular exam: lacerations, abrasions, or hematoma? - yes Wound measurements: 3 cm along helix of left ear with exposed cartilage and 2 cm along retroauricular sulcus with subQ tissue exposed. There is no auricular hematoma. Hearing is intact Lab/Radiology/Diagnostic Review: Laboratory review: Lab results in the last 24 hours: Recent Results (from the past 24 hour(s)) POCT glucose Collection Time: 07/27/23 8:41 AM Result Value Ref Range Glucose, POC 81 70 - 199 mg/dL Type and screen Collection Time: 07/27/23 8:57 AM Result Value Ref Range Sanju, indirect Negative ABO Rh A Positive aPTT Collection Time: 07/27/23 8:57 AM Result Value Ref Range aPTT 30 28 - 38 sec Protime-INR Collection Time: 07/27/23 8:57 AM Result Value Ref Range PT 13.5 10.3 - 13.7 sec INR 1.18 0.90 - 1.20 CBC with auto differential Collection Time: 07/27/23 8:57 AM Result Value Ref Range WBC 7.9 3.8 - 9.9 K/cumm Hgb 15.9 13.0 - 17.5 g/dL Hct 48.3 38.9 - 50.3 % Plt 256 150 - 400 K/cumm MPV 10.6 9.1 - 12.3 fL RBC 5.61 4.30 - 5.80 M/cumm MCV 86.1 81.3 - 96.4 fL MCH 28.3 27.1 - 33.3 pg MCHC 32.9 32.3 - 35.7 g/dL RDW CV 16.9 (H) 11.1 - 14.9 % RDW SD 51.9 (H) 35.7 - 48.1 fL NRBC abs 0.00 0.00 - 0.01 K/cumm Comprehensive metabolic panel Collection Time: 07/27/23 8:57 AM Result Value Ref Range Sodium 143 135 - 145 mmol/L Potassium, pl 4.4 3.3 - 4.9 mmol/L Chloride 108 97 - 110 mmol/L CO2 31 22 - 32 mmol/L Anion gap 4 2 - 15 mmol/L BUN 16 6 - 25 mg/dL Creatinine 1.22 0.80 - 1.30 mg/dL Glucose 89 70 - 199 mg/dL Calcium 8.8 8.5 - 10.3 mg/dL Bilirubin, total 0.7 0.1 - 1.2 mg/dL Protein, pl 6.6 6.5 - 8.5 g/dL Albumin 3.4 (L) 3.5 - 5.0 g/dL Alk phos 127 40 - 130 Units/L ALT 23 7 - 55 Units/L AST 26 10 - 50 Units/L Differential, auto Collection Time: 07/27/23 8:57 AM Result Value Ref Range Neutrophil abs 4.9 1.5 - 6.5 K/cumm Imm gran abs 0.1 0.0 - 0.1 K/cumm Lymphocyte abs 1.4 0.8 - 3.3 K/cumm Monocyte abs 1.4 (H) 0.2 - 0.8 K/cumm Eosinophil abs 0.2 0.0 - 0.5 K/cumm Basophil abs 0.0 0.0 - 0.1 K/cumm Neutrophil pct 61.2 % Imm gran pct 1.3 % Lymphocyte pct 17.4 % Monocyte pct 17.3 % Eosinophil pct 2.3 % Basophil pct 0.5 % eGFR Collection Time: 07/27/23 8:57 AM Result Value Ref Range eGFR 60 >=60 mL/min/1.73 m2 POCT glucose Collection Time: 07/27/23 10:50 AM Result Value Ref Range Glucose, POC 140 70 - 199 mg/dL POCT glucose Collection Time: 07/27/23 1:11 PM Result Value Ref Range Glucose, POC 177 70 - 199 mg/dL Imaging review: I have independently examined the head ct image(s). My findings are as follows - nofacial bone injury within the limits of head ct Assessment /Plan Neal Amaro is a 82 y.o. male who presented with left ear laceration. Ear lack repaired at bedside in the ED. PRS will continue to follow for wound check. INTERVENTIONS/PROCEDURES: CONSENT: Obtained verbally after risks and benefits of the procedure were discussed and all questions were answered. PROCEDURE: Tesha block with 1% lidocaine and epinephrine, Wounds thoroughly irrigated with NS/betadine, Closed dermis with 5-0 monocryl deep dermal, Closed skin with 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, and Bacitracin applied. PLAN/RECOMMENDATIONS: Plan is for non-operative management . Additional recommendations provided below. Antibiotics/Cultures: baci TID for 3 days, vaseline after to left ear laceration Other Consultations: Neurosurgery Diet: Per primary Wound Care/Dressing: baci TID for 3 days, vaseline after to left ear laceration Pain Control: pain relief with HOB elevation to reduce swelling, cool compresses to the affected area, oral or IV medication as indicated; recommend tylenol and/or ibuprofen in addition to narcotic pain medication Activity/Restrictions: head of bed elevated to reduce swelling (if safe from trauma perspective); Prophylaxis: Tetanus prophylaxis as indicated; anti-nausea/vomiting (IV zofran or phenergan, decadron); bowel prophylaxis while taking narcotics Disposition: Pending recovery or discharge, please call [phone] or [phone] to schedule follow-up within 1-2 weeks to be seen by an BURT Saurabh Null MD, MD Discussed with senior resident computing consultant Dr. Tate Cosigned by Sapphire Hernandez MD at 07/27/2023 8:39 PM DIRECTOR OF PURCHASING CTOR OF PURCHASING CTOR OF PURCHASING CTOR OF PURCHASING CTOR OF PURCHASING CTOR OF PURCHASING * Louisa Oliver MD - 07/27/2023 9:01 AM CSTAssociated Order(s): IP CONSULT TO NEUROSURGERY Neurosurgery Consultation Patient: Neal Amaro CSN: [id number] : 1940 Admission date: 07/27/2023 Length of stay (days): 0 Consulting: Dr. Rivas Requesting provider: Dr. Gardner Reason for consultation: mGLF, L falcine SAH History of present illness: Neal Amaro is a 82 y.o. 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 Briefly, Mr. Amaro was in his usual state of health until around 2300 last night when he woke up on the floor after rolling out of bed. He was having dull headaches at the time as well as ear pain in his right ear. He presented to an outside hospital, where they performed a head CT and CT cervical spine. The head CT demonstrated a left falcine subarachnoid hemorrhage, and therefore he was transferred to [facility] for further workup and management. CT cervical spine otherwise demonstrated no acute fractures. Neurosurgery was consulted for management of the subarachnoid hemorrhage. The neurosurgery team evaluated the patient. He noted that he has had 2 falls over the last 6 months. The last fall was 1 month ago, which appeared mechanical. He was walking with his walker, and tripped as he transitioned from the inside of his house to his backyard patio. His only other fall was last night, when he woke up after rolling out of bed. Otherwise, he is denying any changes in his vision, changes in his hearing, numbness, tingling (that is worse from his baseline neuropathy), weakness, and nausea or vomiting. He states that he has a dull headache, but feels that it is more sinus pressure than in his head. Review of systems: A full review of systems was completed and was negative unless otherwise stated in the HPI. Past medical/surgical history: Atrial fibrillation, on warfarin (last dose 1224 AM; previously on xarelto until 2016 Polycythemia, gets serial phlebotomies at [facility], next scheduled for L1-4 PSF (with orthopedic surgery, c/b osteomyelitis at L2-3 and s/p revision decompression at L1-3+ fusion at L2-3 on 06/21/15) PE and DVT s/p IVCf (2014) HTN Prior pancreatic mass s/p pancreatectomy and splenectomy (2010) c/b insulin- dependent DM Hypothyroidism Hx of colon polyps R eye blindness s/p several steroid inj and cataract surgery Allergies: Silicone tape Medications: HOME MEDICATIONS : acetaminophen 500 mg capsule albuterol HFA (PROVENTIL HFA,VENTOLIN HFA,PROAIR HFA) 90 mcg/actuation inhaler atorvastatin (LIPITOR) 40 mg tablet azelastine (ASTELIN) 137 mcg (0.1 %) nasal spray baclofen (LIORESAL) 10 mg tablet cholecalciferol (VITAMIN D3) 1,000 unit capsule diclofenac sodium (VOLTAREN) 1 % gel doxycycline (doxycycline hyclate) 100 mg capsule Farxiga 5 mg tablet flecainide (TAMBOCOR) 50 mg tablet fluticasone propionate (FLONASE) 50 mcg/actuation nasal spray HYDROcodone-acetaminophen (NORCO) 7.5-325 mg per tablet insulin glargine (LANTUS SOLOSTAR) 100 unit/mL (3 mL) insulin pen insulin lispro (HumaLOG) 100 unit/mL cartridge levothyroxine (SYNTHROID) 50 mcg tablet metoprolol (LOPRESSOR) 25 mg tablet omeprazole (PriLOSEC) 20 mg capsule OneTouch Ultra Test strip pregabalin (LYRICA) 75 mg capsule tamsulosin (FLOMAX) 0.4 mg capsule,extended release 24hr Trelegy Ellipta 100-62.5-25 mcg inhaler triamcinolone (KENALOG) 0.1 % cream warfarin (COUMADIN) 3 mg tablet Social history: Former smoker, smoked 3 packs a day, quit 40 years ago Drinks about 2 alcoholic beverages per week Denies drug use including marijuana, cocaine, and heroin 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 Alternatecontact is his son, Saeid, who can be reached at [phone] Family history: Reviewed and noncontributory. Physical Examination: Neuro: Alert, opens eyes spontaneously, regards, follows all commands Right ear laceration on lobe of right ear, as well as posterior to earlobe, not actively bleeding, but does have pooled blood and crusted blood Orientedx3 Bilateral pupils approximately 2 mm, not reactive Right eye light perception only Left eye light perception and able to detect motion at approximately 6 in Extraocular movements intact Speech is fluent. Answers questions appropriately. Face symmetric, tongue midline Upper Extremity D B T HG L 5/5 5/5 5/5 5/5 R 5/5 5/5 5/5 5/5 Lower Extremity IP Q H TA Gn L 5/5 5/5 5/5 5/5 5/5 R 5/5 5/5 5/5 5/5 5/5 No pronator drift. Symmetric numbness in bilateral fingertips and bilateral toes, at baseline Leo's negative No clonus. No tenderness to palpation of neck or back No pain with neck full range of motion Psych: normal affect Constitutional: no acute distress HENT: normocephalic Cardiovascular: normal rate Pulmonary: normal respiratory effort Abdominal: non-distended Musculoskeletal: normal range of motion Imaging and Labs: CTH performed at OSH at 00:54 07/27: Approximately 1 x 0.5 cm subarachnoid hemorrhage involving subarachnoid space just left lateral to falx. Diffuse brain atrophy. CT c-spine performed at outside hospital at 00:54 07/27: Bridging anterior osteophytes involving C3-7. No obvious cervical spine fractures noted. General degenerative changes of vertebral bodies and discs Assessment and Plan Mr. 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 The patient is GCS 15. Aside from chronic bilateral eye vision loss, he is nonfocal on exam. He does have a right ear laceration. Given the history of anticoagulation use, it would be important to get a repeat head CT to ensure the subarachnoid hemorrhage is not changing in size. At this point, prior to repeat head CT, would hold off on transfusions given the patient's history of polycythemia and hypercoagulablestate. Repeat dual energy head CT now, if stable okay for q2h NCs Please complete lab workup with BMP, CBC, PT, PTT, UA macro-micro, CXR, EKG, T&S Keppra 500 b.i.d. x7 days Q.1h neuro checks until repeat head CT complete This plan will be discussed with the chief resident and attending computing consultant. The patient was evaluated within 30 minutes of consultation Louisa Oliver MD Cosigned by Duke Rivas MD at 07/28/2023 6:43 AM DIRECTOR OF PURCHASING CTOR OF PURCHASING CTOR OF PURCHASING CTOR OF PURCHASING CTOR OF PURCHASING CTOR OF PURCHASING CTOR OF PURCHASING CTOR OF PURCHASING CTOR OF PURCHASING CTOR OF PURCHASING Associated attestation - Duke Rivas MD - 07/28/2023 6:43 AM DIRECTOR OF PURCHASING I have seen and examined the patient on 07/27/2023. I agree with the findings and plan of care as documented in the resident's/fellow's note.. documented in this encounter ED Notes * Carlota Blum MD - 07/27/2023 8:19 AM CST Images from the original note were not included. HPI Chief Complaint Patient presents with Fall HPI 82 year old male with PMH afib on Warfarin (last dose this AM), PE, recurrent DVT with IVC filter, morbid obesity, right eye blindness who presents with GLF last night, found to have SAH at OSH. Patient states he was awoken on the ground last night, believes he fell out of bed. Occurred pllbic26kg last night. Fell on right side, also injured right ear. Endorses mild WESLEY. Denies N/V. PossibleLOC. Denies abdominal pain, difficulty breathing. Long standing bilateral LE neuropathy. Walks withwalker at [facility]. 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 ([facility]) 01/20/2017 Dyspnea 01/20/2017 Pure hypercholesterolemia 01/20/2017 Morbid obesity with BMI of 45.0-49.9, adult ([facility]) 01/20/2017 Metastatic neoplasm ([facility]) 07/18/2016 Benign paroxysmal positional vertigo 09/20/2015 Pulmonary embolism ([facility]) 08/09/2015 Paroxysmal atrial fibrillation ([facility]) ([facility]) 08/09/2015 Osteomyelitis of spine ([facility]) ([facility]) 07/12/2015 Arthritis 12/17/2009 Hypertension 12/17/2009 Past Medical History: Diagnosis Date Arthritis Atrial fibrillation ([facility]) ([facility]) Dysphagia GERD (gastroesophageal reflux disease) Hyperlipidemia Hypertension Hypothyroidism Type 2 diabetes mellitus ([facility]) Past Surgical History: Procedure Laterality Date ANKLE SURGERY BACK SURGERY x2 COLONOSCOPY REPLACEMENT TOTAL KNEE ONCOLOGIC Bilateral ROTATOR CUFF REPAIR Right SPLENECTOMY, TOTAL UPPER GASTROINTESTINAL ENDOSCOPY WHIPPLE PROCEDURE W/ LAPAROSCOPY Family History Family history unknown: Yes Social History Tobacco Use Smoking status: Former Smokeless tobacco: Never Substance and Sexual Activity Alcohol use: No Drug use: Not on file Sexual activity: Defer Social History Social History Narrative General Social History Comments: Prevoiusly worked for [employer].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 Physical Exam ED Triage Vitals [07/27/23 0807] Temp Pulse Resp BP SpO2 36.5 ??C (97.7 ??F) 65 16 163/73 96 % Temp src Heart Rate Source Patient Position BP Location FiO2 (%) Oral -- -- -- -- Height Height Method Weight Weight Method -- -- -- -- Physical Exam Vitals and nursing note reviewed. Constitutional: General: He is not in acute distress. Appearance: He is well-developed. He is obese. He is ill-appearing. HENT: Head: Normocephalic and atraumatic. Eyes: Conjunctiva/sclera: Conjunctivae normal. Cardiovascular: Rate and Rhythm: Normal rate and regular rhythm. Heart sounds: No murmur heard. Pulmonary: Effort: Pulmonary effort is normal. No respiratory distress. Breath sounds: Normal breath sounds. Abdominal: Palpations: Abdomen is soft. Tenderness: There is no abdominal tenderness. Musculoskeletal: General: No swelling. Cervical back: Neck supple. No rigidity or tenderness. Skin: General: Skin is warm and dry. Capillary Refill: Capillary refill takes less than 2 seconds. Neurological: Mental Status: He is alert and oriented to person, place, and time. Cranial Nerves: Cranial nerve deficit present. Sensory: Sensory deficit present. Motor: No weakness. Comments: Decreased bilateral LE sensation to light touch. Intact plantar strength/hip flexion bilaterally. Baseline right eye blindness. Psychiatric: Mood and Affect: Mood normal. [facility] Medical Decision Making 82 year old male with PMH afib on Warfarin (last dose this AM), PE, recurrent DVT with IVC filter, morbid obesity, right eye blindness who presents with GLF last night, found to have SAH at OSH. Patient states he was awoken on the ground last night, believes he fell out of bed. Occurred around 11pmlast night. Fell on right side, also injured right ear. No gross new neuro deficits. No N/V, denies new incontinence. Long standing bilateral LE neuropathy. VSS on RA, alert and oriented, conversational. Exam notable for right ear laceration, oozing. Midline lumbar well healed incision noted on back. OSH cleared C spine. No other severe injuries noted onexam. Known left SAH, without herniation or midline shift. Plan for SAH ED protocol (HOB 30 degree), NSGY c/s. Added Jenn sz ppx. Plastics c/s for ear. Anticipate admit for neurochecks given patient is anticoagulated although neuro-stable, HDS. Amount and/or Complexity of Data Reviewed Labs: ordered. Decision-making details documented in ED Course. Radiology: ordered. ECG/medicine tests: ordered and independent interpretation performed. Risk Prescription drug management. Decision regarding hospitalization. Attending Summary of Care ED Course as of 07/27/23 1058 Time: 07/27 822 Comment: NSGY c/s placed for SAH found at [facility]. By: Carlota Blum MD Time: 07/27 822 Comment: Patient's VSS, on RA. Endorses mild WESLEY. Otherwise comfortable at this time. By: Carlota Blum MD Time: 07/27 830 Comment: Repeat head CT ordered now (last around 0100) per NSGY. SAH precautions in. By: Carlota Blum MD Time: 07/27 839 Comment: Kepp 500 BID added. By: Carlota Blum MD Time: 07/27 842 Comment: ENT c/s placed for R ear complex lac. By: Carlota Blum MD Time: 07/27 854 Comment: Given h/o warfarin use, will obtain repeat HCT now with dual energy. NC Q1H until repeatis obtained. By: Letty Rodriguez MD Time: 07/27 908 Comment: ENT team requests Plastics c/s for ear, given day. By: Carlota Blum MD Time: 07/27 915 Comment: Plastics to see, 1L irrigation, lido with epi ordered. By: Carlota Blum MD Time: 07/27 924 Comment: NSGY and PRS at bedside for eval. Pt now YARON in CT. By: Letty Rodriguez MD Time: 07/27 937 Comment: ENT at bedside for repair. By: Letty Rodriguez MD Time: 07/27 0950 Value: Glucose, POC: 81 Comment: 250 mL D10. By: Carlota Blum MD Time: 07/27 0950 Comment: Repeat HCT looks stable. NSGY has reviewed images and comfortable with [facility]. Will updateACCS for OU admission. By: Letty Rodriguez MD Time: 07/27 1011 Comment: Gen surg team confirmed will admit to OU under Dr. Hicks. By: Carlota Blum MD Time: 07/27 1048 Comment: Repair of R ear at bedside complete by PRS. By: Carlota Blum MD Time: 07/27 1058 Value: Glucose, POC: 140 Comment: S/p D10, eating now. By: Carlota Blum MD No diagnosis found. Carlota Blum MD Resident 07/27/23 3563 Cosigned by Leon Gardner MD at 07/29/2023 2:13 PM DIRECTOR OF PURCHASING CTOR OF PURCHASING CTOR OF PURCHASING Associated attestation - Leon Gardner MD - 07/29/2023 2:13 PM DIRECTOR OF PURCHASING I have seen and examined the patient on 07/27/2023. I agree with the findings and plan of care as documented in the resident's note. * Blake Bedoya RN - 07/27/2023 8:04 AM CST EMS states PT had a GLF out of bed yesterday, he has a lac on his right ear and was diagnosed witha left SAH. A&OX4. 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 Social Work presented bedside to discuss with the patient. He stated he has good insurance and has no concerns at home related to rent, utilities, or other bills. Social Work later spoke with the patient's via telephone to discuss the consult. She also stated they have no need for financial assistance, explainingthey are doing well at home financially and have good health insurance. No needs identified. Social Work to remain available as needed. Ashvin Leiva LMSW CTOR OF PURCHASING * Plan of Care - Darya Clinton RN - 07/29/2023 1:48 PM CST 07/29/23 1300 Discharge Summary Discharge Disposition Private residence Discharge Records Chart Copied Equipment/Provider Needs Patient Refused Home Health Services Discharge Additional Assistance Does the patient need discharge transport arranged? No (son) Post Discharge Care Provider Post Discharge Care Plan DC Summary has been faxed to next level of care provider (see Follow Up Providers) Per medical team, patient is medically stable for discharge at this time. Follow up appointment hasbeen scheduled for 08/04 @ 0930. Transportation will be provided by family. Patient and/or family areagreeable with the plan. If any further discharge needs arise, please contact the covering rn case manager hospice. Patient refused HH for PT/Ot because of eyesight. Darya HARDING, telecom assistant CTOR OF PURCHASING * Plan of Care - Darya Clinton RN - 07/29/2023 1:42 PM CST 07/29/23 1342 Communications Important Message from Medicare notice given to patient? Yes IM letter completed with patient/plastic products sales representative at bedside. Patient/plastic products sales representative were informed ofthe planned discharge date, the date the beneficiary's financial liability begins, the beneficiary's appeal rights, and how and when to initiate an appeal. Patient/plastic products sales representative were provided a copy of the IM letter and IM letter was placed in unit???s designated medical record bin to be uploaded into the patient???s chart. CTOR OF PURCHASING * Plan of Care - Sweetie Barnett RN - 07/28/2023 10:01 PM CST Clinical Goals for the Shift: VSS, Neuro Stable, Up x1-2 to urinal/bsc, promote rest comfort and safety Summary: Problem: Lack of Knowledge Goal: Knowledge of disease or condition will improve Outcome: Progressing Problem: Health Behavior: Goal: Understanding of discharge needs will improve Outcome: Progressing Problem: Lack of Knowledge: Goal: Ability to state ways to decrease the risk of falls will improve Outcome: Progressing Problem: Lack of Knowledge: Goal: Ability to describe self-care measures that may prevent or decrease complications will improve Outcome: Progressing Goal: Knowledge of the prescribed therapeutic regimen will improve Outcome: Progressing CTOR OF PURCHASING * Plan of Care - Aleshia Peck RN - 07/28/2023 2:20 PM CST Per Medical Chart/Rounds/DCAM: Per the medical team, the patient is not medically ready. ADD: 07-31-23 Plan & referrals made/in place: Patient will discharge once medically ready. CM will continue to follow for referrals or discharge planning needs. Support following discharge: Family Transportation: Family F/U Appointments: TBD systems analysis manager will continue to follow and assist with discharge planning as needed. If any further discharge needs arise, please contact the covering rn case manager hospice. Aleshia Peck RN Case Manager For emergency needs after 4:30 pm, please call the blending tank helper [phone]. For weekend/holiday needs from 8:00a.m. - 4:30p.m., please call the Weekend Social Media Project Manager . CTOR OF PURCHASING * Assessment & Plan Note - Cyndie Durham NP - 07/28/2023 1:21 PM DIRECTOR OF PURCHASING Associated Problem(s): Encounter for medication review 07/28 medications reviewed and updated through contact with patient's [facility] pharmacy CTOR OF PURCHASING * Significant Event - Cyndie Durham NP - 07/28/2023 12:52 PM DIRECTOR OF PURCHASING Images from the original note were not included. [facility] Trauma [facility] Service OU Daily Coordination of Care Note Admit: 07/27/2023 8:03 AM Date: July 28, 2023 Length of Stay: 1 Attending: Linnette Hicks MD POD:* No surgery found * Subjective History: TRAUMA A 82 y.o. 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 Went to OSH and found to have SAH (OSH CT 07/27 0100); and laceration to right ear. At [facility] ED, found to have: Hgb 15.9; WBC 7.9; Cr 1.22; INR 1.18. Repeat CT 0900 w/ stable SAH. Edited by: Antony Colón MD at 07/28/2023 0458 Interval History: - Continue q2 NC per NSGY -> stay in OU - Called pharmacy to get home medication list with current fills and correct dosages - medications updated in chart - Chart review for anticoagulation history. JIMMY 2 negative, no mention of work up for antiphospholipid syndrome. Xarelto x2 per Hematology, then switched to Pradaxa by PCP for ongoing bleeding and hematuria, then to warfarin with resolution of hematuria. PCP follows warfarin levels. Continues to follow with Hematology - Patient reports that he was told to continue doxycycline for lifelong suppression Objective Medications: Current Facility-Administered Medications: acetaminophen (TYLENOL) tablet 650 mg, 650 mg, oral, Q6H, Jorge L Chu MD, 650 mg at albuterol HFA (PROVENTIL HFA,VENTOLIN HFA,PROAIR HFA) 90 mcg/actuation inhaler 1 puff, 1 puff, inhalation, Q6H PRN (RT), Jorge L Chu MD [START ON 07/29/2023] atorvastatin (LIPITOR) tablet 20 mg, 20 mg, oral, Daily, Cyndie Durham, RASHAAD azelastine (ASTELIN) 137 mcg (0.1 %) nasal spray 1 spray, 1 spray, each nostril, Daily, Jorge L Chu MD, 1 spray at 07/28/23 0914 bacitracin 500 unit/gram ointment packet 1 Application, 1 Application, topical, TID, Cyndie Durham NP, 1 Application at 07/28/23 0846 baclofen (LIORESAL) tablet 10 mg, 10 mg, oral, TID with meals, Jorge L Chu MD, 10 mg at 07/28/23 1225 Carrier Fluids for Secondary Infusion - 0.9% Sodium Chloride, 30 mL, intravenous, PRN, Jorge L Chu MD cholecalciferol (VITAMIN D-3) capsule 1,000 Units, 1,000 Units, oral, Daily, Jorge L Chu MD,1,000 Units at 07/28/23 0847 dapagliflozin propanediol (FARXIGA) tablet 5 mg, 5 mg, oral, Daily, Jorge L Chu MD, 5 mg at 07/28/23 0846 dextrose gel in packet 15 g, 15 g, oral, Q15 Min PRN OR dextrose (D10W) 10% bolus 250 mL, 250 mL, intravenous, Q15 Min PRN, Jorge L Chu MD doxycycline (VIBRAMYCIN) tablet/capsule 100 mg, 100 mg, oral, BID - special, Jorge L Chu MD,100 mg at 07/28/23 0631 flecainide (TAMBOCOR) tablet 50 mg, 50 mg, oral, BID, Jorge L Chu MD, 50 mg at 07/28/23 0846 [START ON 07/29/2023] mpmtidlasic-oxxtefcmu-firnzeii (TRELEGY ELLIPTA) 200-62.5-25 mcg inhaler 1 puff, 1 puff, inhalation, Daily, Cyndie Durham NP glucagon injection 1 mg, 1 mg, intramuscular, Q30 Min PRN, Jorge L Chu MD insulin glargine (LANTUS, SEMGLEE) 100 unit/mL injection 20 Units, 20 Units, subcutaneous, Nightly,Cyndie Durham NP, 20 Units at 07/27/232116 insulin lispro (HumaLOG, ADMELOG) 100 unit/mL injection 0-10 Units, 0-10 Units, subcutaneous, TID with meals, Cyndie Durham NP, 4 Units at 07/28/23 1226 insulin lispro (HumaLOG, ADMELOG) 100 unit/mL injection 0-5 Units, 0-5 Units, subcutaneous, Nightly, Cyndie Durham NP levETIRAcetam (KEPPRA) tablet 500 mg, 500 mg, oral, BID, Cyndie Durham NP levothyroxine (SYNTHROID) tablet 50 mcg, 50 mcg, oral, Daily, Jorge L Chu MD, 50 mcg at 07/28/23 0845 metoprolol tartrate (LOPRESSOR) immediate release tablet 12.5 mg, 12.5 mg, oral, BID, Jorge L Chu MD, 12.5 mg at 07/28/23 0846 oxyCODONE (ROXICODONE) tablet 5 mg, 5 mg, oral, Q4H PRN, Jorge L Chu MD pantoprazole DR (PROTONIX) extended release tablet 40 mg, 40 mg, oral, Daily, Jorge L Chu MD, 40 mg at 07/28/23 0847 pregabalin (LYRICA) capsule 150 mg, 150 mg, oral, TID, Maria Antonia Solano MD senna-docusate (PERICOLACE) 8.6-50 mg per tablet 1 tablet, 1 tablet, oral, BID, Jorge L Chu MD, 1 tablet at 07/28/23 0846 sodium chloride 0.9% flush 0.5-20 mL, 0.5-20 mL, intra-catheter, Q8H AUDELIA, Jorge L Chu MD, 10mL at 07/28/23 0631 sodium chloride 0.9% flush 0.5-20 mL, 0.5-20 mL, intra-catheter, PRN, Jorge L Chu MD tamsulosin (FLOMAX) extended release capsule 0.8 mg, 0.8 mg, oral, Daily with dinner, Cyndei Durham NP Past Medical: Past Medical History: Diagnosis Date Arthritis Atrial fibrillation (CMS/HCC) (HCC) Dysphagia GERD (gastroesophageal reflux disease) Hyperlipidemia Hypertension Hypothyroidism Type 2 diabetes mellitus (HCC) Surgical History: Past Surgical History: Procedure Laterality Date ANKLE SURGERY BACK SURGERY x2 COLONOSCOPY REPLACEMENT TOTAL KNEE ONCOLOGIC Bilateral ROTATOR CUFF REPAIR Right SPLENECTOMY, TOTAL UPPER GASTROINTESTINAL ENDOSCOPY WHIPPLE PROCEDURE W/ LAPAROSCOPY Is&Os: I/O last 2 completed shifts: In: 350 [IV Piggyback:350] Out: 1375 [Urine:1375] I/O this shift: In: - Out: 175 [Urine:175] Physical Exam: 24hr Min/Max: Temp Min: 36.6 ??C (97.8 ??F) Max: 37.5 ??C (99.5 ??F) Pulse Min: 55 Max: 71 BP Min: 70/45 Max: 172/79 Resp Min: 13 Max: 27 SpO2 Min: 88 % Max: 96 % Physical Exam No significant changes from physical exam as documented on the AM progress note Labs/Imaging: Recent Labs Lab Units 07/27/23211407/27/23 0857 WBC K/cumm 6.3 7.9 HEMOGLOBIN g/dL 14.4 15.9 HEMATOCRIT % 44.4 48.3 PLATELETS K/cumm 213 256 Recent Labs Lab Units 07/28/23 1106 07/28/23 0742 07/28/23 0244 07/27/235 07/27/23 1050 07/27/23 0857 SODIUM mmol/L -- -- -- 143 -- 143 POTASSIUM PLASMA mmol/L -- -- -- 4.6 -- 4.4 CHLORIDE mmol/L -- -- -- 111* -- 108 CO2 mmol/L -- -- -- 24 -- 31 BUN SERUM mg/dL -- -- -- 15 -- 16 CREATININE mg/dL -- -- -- 1.10 -- 1.22 GLUCOSE mg/dL -- -- -- 136 -- 89 POC GLUCOSE MONITOR mg/dL 219* 97 116 -- < > -- CALCIUM mg/dL -- -- -- 7.4* -- 8.8 < > = values in this interval not displayed. Recent Labs Lab Units 07/27/23 0857 PROTIME (PT) sec 13.5 INR 1.18 XR Knee Left 1 or 2 Views Result Date: 07/27/2023 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 Electronically signed by: Doug Pineda MD Neuro CT Outside Consult Result Date: 07/27/2023 1. Small subarachnoid hemorrhage along the left falx with possible trace falcine subdural hemorrhage component. 2. No evidence of acute fracture in the cervical spine. The findings, conclusions and recommendations within this report do not replace the initial findings, conclusions and recommendations made at the facility where the study was performed based upon the imaging and clinical condition at that time. Comparison with the prior report and clinical history is necessary. The provided images may or may not represent the the [place] source data set and thus may contain changes that may lower the accuracy of this second- opinion interpretation. Dictated by: Saud Iraheta M.D. The radiology attending physician has personally reviewed this study, and had reviewed and/or edited this written report and agrees with it. Electronically signed by: Yaron Rush M.D. Neuro CT Outside Consult Result Date: 07/27/2023 1. Small subarachnoid hemorrhage along the left falx with possible trace falcine subdural hemorrhage component. 2. No evidence of acute fracture in the cervical spine. The findings, conclusions and recommendations within this report do not replace the initial findings, conclusions and recommendations made at the facility where the study was performed based upon the imaging and clinical condition at that time. Comparison with the prior report and clinical history is necessary. The provided images may or may not represent the the [place] source data set and thus may contain changes that may lower the accuracy of this second- opinion interpretation. Dictated by: Saud Iraheta M.D. The radiology attending physician has personally reviewed this study, and had reviewed and/or edited this written report and agrees with it. Electronically signed by: Yaron Rush M.D. CT Head WO Contrast Result Date: 07/27/2023 1. No significant change in size of a small left parafalcine subarachnoid hemorrhage with possible trace adjacent subdural component. 2. A few scattered hyperdensities in the extra-axial space along the right cerebral convexity of the parietal lobe are better evaluated on this examination, though may have been present on the outside study, and likely represent additional small subarachnoid hemorrhage. Dictated by: Saud Iraheta M.D. The radiology attending physician has personally reviewed this study, and had reviewed and/or edited this written report and agrees with it. Electronically signed by: Yaron Rush M.D. I have independently reviewed and interpreted all relevant lab and radiographic data. Assessment/Plan Trauma Surgical Assessment and Plan * SAH (subarachnoid hemorrhage) ([facility]) ([facility]) Assessment & Plan - Neurosurgery consulted - Repeat head CT unchanged - Keppra 500 mg BID x 7 days (07/27 - 08/02) - Neuro checks q2h - BI consult, PT/OT - hold warfarin Type 2 diabetes mellitus, with long-term current use of insulin ([facility]) Assessment & Plan #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, [...] residual hernia that is chronic, soft, reducible Paroxysmal atrial fibrillation ([facility]) ([facility]) Assessment & Plan - Continue home flecainide - Continue home metoprolol - suppressed on warfarin, flecainide; follows with cardiology outpatient - last TTE in 2018 w/ LVEF55% and no obvious structural issues Pulmonary embolism without acute cor pulmonale ([facility]) Assessment & Plan - Hold warfarin - s/p IVC filter Morbid obesity with BMI of 45.0-49.9, adult ([facility]) Assessment & Plan - BMI 44.94 kg/m2 on admission Pure hypercholesterolemia Assessment & Plan - Continue home Lipitor 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 ([facility]) Assessment & Plan See Pulmonary Embolism Encounter for medication review Assessment & Plan 07/28 medications reviewed and updated through contact with patient's [facility] pharmacy Hypothyroid Assessment & Plan - continue home levothyroxine Polycythemia Assessment & Plan #coagulopathy - last PE in per chart review - had recurrence of PE despite IVC filter in 2014; was placed back on Xarelto with bleeding epidsode, then trialed Pradaxa (per PCP) with continued hematuria, and then switched to warfarin by PCP nothematology - last warfarin dose 07/26 morning - hold transfusions in setting of above issues - INR 1.1 07/27 Left knee pain Assessment & Plan - XR left knee: negative for acute fracture Laceration of right ear Assessment & Plan - PRS consulted - s/p repair with 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 - Bacitracin TID x 3 days, then vaseline - HOB elevation - Pending recovery or discharge, please call [phone] or [phone] to schedule follow-up within 1-2 weeks to be seen by an [facility] Osteomyelitis of lumbar spine (HCC) Assessment & Plan - 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 at [facility] in 2016 - has been on chronic suppressive doxycycline since then per ID - doxycycline reordered Total time spent included the following activities caring for this patient: Patient chart review, Referring & communicating with other health health care social worker, Documenting clinical information in the health record, and Care coordination 55 minutes All care plans discussed with rounding/operative attending: MD Cyndie Metz NP CTOR OF PURCHASING * Plan of Care - Cassandra Lia RN - 07/27/2023 10:44 PM CST Problem: Lack of Knowledge Goal: Knowledge of disease or condition will improve Outcome: Progressing Problem: Lack of Knowledge: Goal: Ability to state ways to decrease the risk of falls will improve Outcome: Progressing Problem: Safety: Goal: Will remain free from falls Outcome: Progressing Goal: Will remain free from injury from falls Outcome: Progressing Goal: Will remain free from falls and injury in home environment Outcome: Progressing Summary: VSS, q2 neuro check, comfort and safety, sleep hygiene CTOR OF PURCHASING * Plan of Care - Josephine Iglesias RN - 07/27/2023 5:12 PM DIRECTOR OF PURCHASING Problem: Lack of Knowledge Goal: Knowledge of disease or condition will improve Outcome: Progressing Problem: Health Behavior: Goal: Understanding of discharge needs will improve Outcome: Progressing Problem: Lack of Knowledge: Goal: Ability to state ways to decrease the risk of falls will improve Outcome: Progressing Problem: Safety: Goal: Will remain free from falls Outcome: Progressing Goal: Will remain free from injury from falls Outcome: Progressing Goal: Will remain free from falls and injury in home environment Outcome: Progressing Problem: Safety: Goal: Will remain free from falls Outcome: Progressing Problem: Coping: Goal: Ability to adjust to condition or change in health will improve Outcome: Progressing Clinical Goals for the Shift: VSS, q2 neuro check, comfort, safety CTOR OF PURCHASING * Significant Event - Cyndie Durham NP - 07/27/2023 2:50 PM DIRECTOR OF PURCHASING Images from the original note were not included. [facility] Trauma [facility] Service OU Daily Progress Note Admit: 07/27/2023 8:03 AM Date: July 27, 2023 Length of Stay: 0 Attending: Linnette Hicks MD POD:* No surgery found * Subjective History: TRAUMA A; GTS overflow Neal Amaro is a 82 y.o. 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 Went to OSH and found to have SAH (OSH CT 07/27 0100); and laceration to right ear. At [facility] ED, found to have: Hgb 15.9; WBC 7.9; Cr 1.22; INR 1.18. Repeat CT 0900 w/ stable SAH. Edited by: Jorge L Chu MD at 07/27/2023 1130 Interval History: - New admit - Orders reviewed and updated - Pain in L knee, XR pending - Q2 NC - Pending BI consult Objective Medications: Current Facility-Administered Medications: acetaminophen (TYLENOL) tablet 650 mg, 650 mg, oral, Q6H, Jorge L Chu MD, 650 mg at albuterol HFA (PROVENTIL HFA,VENTOLIN HFA,PROAIR HFA) 90 mcg/actuation inhaler 1 puff, 1 puff, inhalation, Q6H PRN (RT), Jorge L Chu MD atorvastatin (LIPITOR) tablet 40 mg, 40 mg, oral, Daily, Jorge L Chu MD, 40 mg at 07/27/23 1259 azelastine (ASTELIN) 137 mcg (0.1 %) nasal spray 1 spray, 1 spray, each nostril, Daily, Jorge L Chu MD bacitracin 500 unit/gram ointment packet 1 Application, 1 Application, topical, TID, Cyndie Durham NP baclofen (LIORESAL) tablet 10 mg, 10 mg, oral, TID with meals, Jorge L Chu MD, 10 mg at 07/27/23 1258 Carrier Fluids for Secondary Infusion - 0.9% Sodium Chloride, 30 mL, intravenous, PRN, Jorge L Chu MD cholecalciferol (VITAMIN D-3) capsule 1,000 Units, 1,000 Units, oral, Daily, Jorge L Chu MD,1,000 Units at 07/27/23 1258 dapagliflozin propanediol (FARXIGA) tablet 5 mg, 5 mg, oral, Daily, Jorge L Chu MD, 5 mg at 07/27/23 1402 dextrose gel in packet 15 g, 15 g, oral, Q15 Min PRN OR dextrose (D10W) 10% bolus 250 mL, 250 mL, intravenous, Q15 Min PRN, Jorge L Chu MD doxycycline (VIBRAMYCIN) tablet/capsule 100 mg, 100 mg, oral, BID - special, Jorge L Chu MD flecainide (TAMBOCOR) tablet 50 mg, 50 mg, oral, BID, Jorge L Chu MD, 50 mg at 07/27/23 1402 fluticasone propionate (FLONASE) 50 mcg/actuation nasal spray 1 spray, 1 spray, each nostril, Daily, Jorge L Chu MD umpkzkmyjnd-boghpylxw-ikycpdtw (TRELEGY ELLIPTA) 100-62.5-25 mcg inhaler 1 puff, 1 puff, inhalation, Daily, Jorge L Chu MD glucagon injection 1 mg, 1 mg, intramuscular, Q30 Min PRN, Jorge L Chu MD insulin lispro (HumaLOG, ADMELOG) 100 unit/mL injection 0-10 Units, 0-10 Units, subcutaneous, TID with meals, Cyndie Durham NP insulin lispro (HumaLOG, ADMELOG) 100 unit/mL injection 0-5 Units, 0-5 Units, subcutaneous, Nightly, Cyndie Durham NP levETIRAcetam (KEPPRA) 500 mg/100 mL in sodium chloride (premix) 500 mg, 500 mg, intravenous, Q12H Viktoria WIN Sarah Elizabeth, MD, Stopped at 07/27/23 0922 levothyroxine (SYNTHROID) tablet 50 mcg, 50 mcg, oral, Daily, Jorge L Chu MD, 50 mcg at 07/27/23 1258 metoprolol tartrate (LOPRESSOR) immediate release tablet 12.5 mg, 12.5 mg, oral, BID, Jorge L Chu MD, 12.5 mg at 07/27/23 1259 oxyCODONE (ROXICODONE) tablet 5 mg, 5 mg, oral, Q4H PRN, Jorge L Chu MD pantoprazole DR (PROTONIX) extended release tablet 40 mg, 40 mg, oral, Daily, Jorge L Chu MD, 40 mg at 07/27/23 1259 pregabalin (LYRICA) capsule 75 mg, 75 mg, oral, TID, Jorge L Chu MD senna-docusate (PERICOLACE) 8.6-50 mg per tablet 1 tablet, 1 tablet, oral, BID, Jorge L Chu MD, 1 tablet at 07/27/23 1258 sodium chloride 0.9% flush 0.5-20 mL, 0.5-20 mL, intra-catheter, Q8H [facility], Jorge L Chu MD, 10mL at 07/27/23 1405 sodium chloride 0.9% flush 0.5-20 mL, 0.5-20 mL, intra-catheter, PRN, Jorge L Chu MD tamsulosin (FLOMAX) extended release capsule 0.4 mg, 0.4 mg, oral, Daily with dinner, Jorge L Chu MD Past Medical: Past Medical History: Diagnosis Date Arthritis Atrial fibrillation (CMS/HCC) (HCC) Dysphagia GERD (gastroesophageal reflux disease) Hyperlipidemia Hypertension Hypothyroidism Type 2 diabetes mellitus (HCC) Surgical History: Past Surgical History: Procedure Laterality Date ANKLE SURGERY BACK SURGERY x2 COLONOSCOPY REPLACEMENT TOTAL KNEE ONCOLOGIC Bilateral ROTATOR CUFF REPAIR Right SPLENECTOMY, TOTAL UPPER GASTROINTESTINAL ENDOSCOPY WHIPPLE PROCEDURE W/ LAPAROSCOPY Is&Os: No intake/output data recorded. I/O this shift: In: 350 [IV Piggyback:350] Out: 350 [Urine:350] Physical Exam: 24hr Min/Max: Temp Min: 36.5 ??C (97.7 ??F) Max: 36.5 ??C (97.7 ??F) Pulse Min: 61 Max: 72 BP Min: 141/77 Max: 163/73 Resp Min: 15 Max: 21 SpO2 Min: 92 % Max: 98 % Physical Exam Vitals reviewed. HENT: Head: Normocephalic. Eyes: Comments: R eye decreased vision No vision in left eye Cardiovascular: Rate and Rhythm: Normal rate. Pulmonary: Effort: No respiratory distress. Comments: Poor inspiratory effort Abdominal: General: There is no distension. Comments: rounded Musculoskeletal: General: Tenderness present. Cervical back: Normal range of motion. Right lower leg: Edema present. Left lower leg: Edema present. Comments: Tenderness to medial left knee Skin: Comments: Generalized discoloration Neurological: General: No focal deficit present. Mental Status: He is alert and oriented to person, place, and time. Psychiatric: Mood and Affect: Mood normal. Behavior: Behavior normal. Labs/Imaging: Recent Labs Lab Units 07/27/23 0857 WBC K/cumm 7.9 HEMOGLOBIN g/dL 15.9 HEMATOCRIT % 48.3 PLATELETS K/cumm 256 Recent Labs Lab Units 07/27/23 1311 07/27/23 1050 07/27/23 0857 SODIUM mmol/L -- -- 143 POTASSIUM PLASMA mmol/L -- -- 4.4 CHLORIDE mmol/L -- -- 108 CO2 mmol/L -- -- 31 BUN SERUM mg/dL -- -- 16 CREATININE mg/dL -- -- 1.22 GLUCOSE mg/dL -- -- 89 POC GLUCOSE MONITOR mg/dL 177 140 -- CALCIUM mg/dL -- -- 8.8 Recent Labs Lab Units 07/27/23 0857 PROTIME (PT) sec 13.[address] Head WO Contrast Result Date: 07/27/2023 1. No significant change in size of a small left parafalcine subarachnoid hemorrhage with possible trace adjacent subdural component. 2. A few scattered hyperdensities in the extra-axial space along the right cerebral convexity of the parietal lobe are better evaluated on this examination, though may have been present on the outside study, and likely represent additional small subarachnoid hemorrhage. Dictated by: Saud Iraheta M.D. The radiology attending physician has personally reviewed this study, and had reviewed and/or edited this written report and agrees with it. Electronically signed by: Yaron Rush M.D. Neuro CT Outside Consult Result Date: 07/27/2023 1. Small subarachnoid hemorrhage along the left falx with possible trace falcine subdural hemorrhage component. 2. No evidence of acute fracture in the cervical spine. The findings, conclusions and recommendations within this report do not replace the initial findings, conclusions and recommendations made at the facility where the study was performed based upon the imaging and clinical condition at that time. Comparison with the prior report and clinical history is necessary. The provided images may or may not represent the the [place] source data set and thus may contain changes that may lower the accuracy of this second- opinion interpretation. Dictated by: Saud Iraheta M.D. Neuro CT Outside Consult Result Date: 07/27/2023 1. Small subarachnoid hemorrhage along the left falx with possible trace falcine subdural hemorrhage component. 2. No evidence of acute fracture in the cervical spine. The findings, conclusions and recommendations within this report do not replace the initial findings, conclusions and recommendations made at the facility where the study was performed based upon the imaging and clinical condition at that time. Comparison with the prior report and clinical history is necessary. The provided images may or may not represent the the [place] source data set and thus may contain changes that may lower the accuracy of this second- opinion interpretation. Dictated by: Saud Iraheta M.D. I have independently reviewed and interpreted all relevant lab and radiographic data. 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; path not available to view - Home regimen: insulin glargine 40 units nightly, insulin lispro 8 units with meals - HDSSI, Accu-checks ACHS - last A1C from 2018 7.5 - surgery complicated by incisional hernia that has required mesh repair at OSH (no records available) with residual hernia that is chronic, soft, reducible Paroxysmal atrial fibrillation (CMS/HCC) ([facility]) Assessment & Plan - Continue home flecainide - Continue home metoprolol - suppressed on warfarin, flecainide; follows with cardiology outpatient - last TTE in 2018 w/ LVEF55% and no obvious structural issues Pulmonary embolism without acute cor pulmonale ([facility]) Assessment & Plan - Hold warfarin - s/p IVC Morbid obesity with BMI of 45.0-49.9, adult ([facility]) Assessment & Plan - BMI 44.94 kg/m2 on admission Pure hypercholesterolemia Assessment & Plan - Continue home Lipitor 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 ([facility]) Assessment & Plan See Pulmonary Embolism Hypothyroid Assessment & Plan - continue home levothyroxine Polycythemia Assessment & Plan #coagulopathy - last PE in per chart review - had recurrence of PE despite IVC filter in 2014; was placed back on Xarelto and then switched to warfarin due to bleeding episode - last warfarin dose 07/26 morning - hold transfusions in setting of above issues - INR 1.1 07/27 Left knee pain Assessment & Plan - XR left knee pending Laceration of right ear Assessment & Plan - PRS consulted - s/p repair with 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 - Bacitracin TID x 3 days, then vaseline - HOB elevation - Pending recovery or discharge, please call [phone] or [phone] to schedule follow-up within 1-2 weeks to be seen by an BURT Osteomyelitis of lumbar spine ([facility]) Assessment & Plan - 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 at [facility] in 2016 - has been on chronic suppressive doxycycline since then per ID FEN: These fluid and electrolyte abnormalities are being treated, evaluated or monitored: No fluid or electrolyte disorders Lines/Drains/Tubes: PIV DVT Prophylaxis: Hold Diet: Adult Diet Restricted; Consistent Carbohydrate Activity: as tolerated GI Prophylaxis: none indicated Code Status: Full Code Total time spent included the following activities caring for this patient: Patient chart review, Reviewing/obtaining history, Examination and evaluation, Counseling/educating patient/family/caregiver, Ordering medications/tests/procedures, and Documenting clinical information in the health record 45 minutes - critical care time All care plans discussed with rounding/operative attending: MD Cyndie Metz NP [employer]OR OF PURCHASING * Assessment & Plan Note - Cyndie Durham NP - 07/27/2023 2:50 PM DIRECTOR OF PURCHASING Associated Problem(s): Hypothyroid - continue home levothyroxine [employer] PURCHASING * Assessment & Plan Note - Cyndie Durham NP - 07/27/2023 2:49 PM DIRECTOR OF PURCHASING Associated Problem(s): 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 at [facility] in 2015 - has been on chronic suppressive doxycycline since then per ID - doxycycline reordered [employer]OR OF PURCHASING CTOR OF PURCHASING * Assessment & Plan Note - Cyndie Durham NP - 07/27/2023 2:47 PM DIRECTOR OF PURCHASING Associated Problem(s): Morbid obesity with BMI of 45.0-49.9, adult (HCC) - BMI 44.94 kg/m2 on admission [employer] PURCHASING * Assessment & Plan Note - Cyndie Durham NP - 07/27/2023 2:46 PM DIRECTOR OF PURCHASING Associated Problem(s): Polycythemia #coagulopathy - last PE in per chart review - had recurrence of PE despite IVC filter in 2014; was placed back on Xarelto with bleeding epidsode, then trialed Pradaxa (per PCP) with continued hematuria, and then switched to warfarin by PCP nothematology - last warfarin dose 07/26 morning - hold transfusions in setting of above issues - INR 1.1 07/27 CTOR OF PURCHASING CTOR OF PURCHASING CTOR OF PURCHASING * Assessment & Plan Note - Cyndie Durham NP - 07/27/2023 2:43 PM DIRECTOR OF PURCHASING Associated Problem(s): Paroxysmal atrial fibrillation (CMS/HCC) (HCC) - Continue home flecainide - Continue home metoprolol - suppressed on warfarin, flecainide; follows with cardiology outpatient - last TTE in 2018 w/ LVEF55% and no obvious structural issues [employer]OR OF PURCHASING CT[employer] OF PURCHASING * Assessment & Plan Note - Cyndie Durham NP - 07/27/2023 2:42 PM DIRECTOR OF PURCHASING Associated Problem(s): Pure hypercholesterolemia - Continue home Lipitor [employer] OF PURCHASING * Assessment & Plan Note - Cyndie Durham NP - 07/27/2023 2:41 PM DIRECTOR OF PURCHASING Associated Problem(s): 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) See Pulmonary Embolism [employer] PURCHASING * Assessment & Plan Note - Cyndie Durham NP - 07/27/2023 2:40 PM DIRECTOR OF PURCHASING Associated Problem(s): Pulmonary embolism without acute cor pulmonale (HCC) - Hold warfarin - s/p IVC filter CTOR OF PURCHASING CTOR OF PURCHASING * Initial Assessments - Mattie King RN - 07/27/2023 2:31 PM DIRECTOR OF PURCHASING CM Initial Assessment Interview Note Information Obtained From: Patient (07/27/231428) Admission Source: OSH Impression: 82 /o M with hx of PE, recurrent DVT with IVC filter, morbid obesity, right eye blindness admitted from OSH with SDH after fall at home Plan Includes: Await PT/OT recommendations. Anticipate IRF vs. Home with HH PT Primary Source of Transportation: family Health Insurance Coverage: [employer] Medicare Prescription Coverage: yes Pharmacy: [id number] [address] [facility] [address] [facility] [address] [facility] [address] [facility] [address] [address] [address] [address] [facility] [address] [facility] [address] [facility] [id number] Primary Care Provider: Alexa Waldrop MD Prior to Admission: Functional Status: Independent with ADLs Primary Caregiver: Self Support System: Spouse/Significant Other Home Care Services: No Durable Medical Equipment: Wheelchair ramp, Walker (wheeled) Living Arrangements: Spouse/significant other Type of Residence: Private residence Steps in home?: No steps inside or outside (07/27/231428) Potential discharge needs include: IRF vs. HH PT Dialysis: No Behavioral Health Services: No Patient expects to be Discharged to: unknown Additional Information: Address and phone verified with pt. Patient's Identified Problem/Goal Problem: Ensure acute medical needs are met and that patient has a safe discharge plan. Goal: Secure a discharge plan that patient/family are agreeable with and ensure patient has continuum of care. Case management will follow for discharge planning and send referrals as needed. Goals include: To assure continuity of care, To maximize coping skills, To assure patient is in a safe environment and To assure access to community resources. Plan includes: 1. Collaboration with patient, MD, direct care nurse, Track Inspecting Supervisor, and other members of the health care team to assure needed interventions completed. 2. Return patient to optimal level of self-care post discharge. 3. Social Media Project Manager will follow for Discharge Planning - interventions as needed 4. Anticipated level of care at discharge 5. Planned Discharge Disposition Based on a comprehensive family assessment, assistance with instrumental activities of daily livingafter discharge will be provided by family Through the course of our work I determined that the family possesses the skill and ability to provide and monitor the care of the patient when he or she returns home. Family has the capacity to provide/monitor/arrange for the care of the patient. Finally, we determined that family has the knowledge of available resources and that combining them with their existing resources will suffice to sustain and care for the patient when he or she returns home. The treatment team is aware of this information. All are in agreement with the aftercare plan. Mattie King RN CTOR OF PURCHASING * Assessment & Plan Note - Cyndie Durham NP - 07/27/2023 2:24 PM DIRECTOR OF PURCHASING Associated Problem(s): Type 2 diabetes mellitus, with long-term current use of insulin (HCC) #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, [...] residual hernia that is chronic, soft, reducible CTOR OF PURCHASING CTOR OF PURCHASING CTOR OF PURCHASING CTOR OF PURCHASING CTOR OF PURCHASING * Assessment & Plan Note - Cyndie Durham NP - 07/27/2023 2:24 PM DIRECTOR OF PURCHASING Associated Problem(s): Left knee pain - XR left knee: negative for acute fracture [employer] OF PURCHASING [employer] PURCHASING * Assessment & Plan Note - Cyndie Durham NP - 07/27/2023 2:21 PM DIRECTOR OF PURCHASING Associated Problem(s): Laceration of right ear - PRS consulted - s/p repair with 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 - Bacitracin TID x 3 days, then vaseline - HOB elevation - Pending recovery or discharge, please call [phone] or [phone] to schedule follow-up within 1-2 weeks to be seen by an BURT [employer] PURCHASING * Assessment & Plan Note - Cyndie Durham NP - 07/27/2023 2:19 PM DIRECTOR OF PURCHASING Associated Problem(s): SAH (subarachnoid hemorrhage) (CMS/HCC) (HCC) - Neurosurgery consulted - Repeat head CT (07/27): No significant change in size of a small left parafalcine subarachnoid hemorrhage with possible trace adjacent subdural component. A few scattered hyperdensities in the extra-axial space along right cerebral convexity of parietal lobe, likely represent additional small suba rachnoid hemorrhage - Keppra 500 mg BID x 7 days (07/27 - 08/02) - hold warfarin - Speech therapy was consulted to perform brain injury evaluation. - Physical therapy and Occupational therapy were consulted to evaluate the patient. Both PT and OT deemed patient appropriate to return home with family supervision CTOR OF PURCHASING CTOR OF PURCHASING CTOR OF PURCHASING CTOR OF PURCHASING * ED Procedure Note - Leon Gardner MD - 07/27/2023 1:59 PM DIRECTOR OF PURCHASING Procedure Procedures I was present for the casey portions of the procedure: suture placement and remained immediately available for the remainder of the procedure. Leon Gardner MD 08/06/23 0844 CTOR OF PURCHASING * ED Procedure Note - Leon Gardner MD - 07/27/2023 9:00 AM DIRECTOR OF PURCHASING Associated Order(s): Critical Care Procedure Critical Care Performed by: Leon Gardner MD Authorized by: Leon Gardner MD Critical care provider statement: As reflected in the history, physical exam, orders, notes, and/or MDM, I was personally present while the patient was critically ill and provided critical care services for 35 minutes, excluding timeinvolved in separately billable procedures. Critical care was necessary to treat or prevent imminent or life- threatening deterioration of the following condition(s): Complex ear laceration traumatic brain injury and severe traumatic condition Critical care was time spent by me providing the following: continuous telemetry, continuous pulse oximetry, interpretation of bedside monitors, imaging, and arterial/venous lab draws and serial bedside patient exams advanced wound care I provided emergent necessary critical care medicine services to this patient. I ordered and reviewed test results and/or imaging studies. I spent time discussing the management of this critically ill patient with consultants and the medical staff. I spent time discussing the management and therapeutic options for this critically ill patient with the patient themselves or with the appropriate designated surrogate decision-maker. I spent time documenting in the medical record. Leon Gardner MD 07/29/23 1448 CTOR OF PURCHASING * ED Procedure Note - Carlota Blum MD - 07/27/2023 8:41 AM DIRECTOR OF PURCHASING Associated Order(s): ECG 12 lead Procedure ECG 12 lead Date/Time: 07/27/2023 8:41 AM Performed by: Carlota Blum MD Authorized by: Carlota Blum MD Rate: ECG rate assessment: normal Rhythm: Rhythm: sinus rhythm Ectopy: Ectopy: none QRS: QRS axis: Normal Conduction: Conduction: normal ST segments: ST segments: Normal T waves: T waves: normal Interpretation: Interpretation: normal Recommended Follow-up: Recommended follow up: further workup in the ED Carlota Blum MD Resident 07/27/23 0842 Cosigned by Leon Gardner MD at 07/27/2023 6:56 PM DIRECTOR OF PURCHASING CTOR OF PURCHASING CTOR OF PURCHASING Associated attestation - Leon Gardner MD - 07/27/2023 6:56 PM DIRECTOR OF PURCHASING I have personally reviewed the tracing and the resident's interpretation. I agree with the findings. * ED Pre-Arrival Note - Pallavi Cortez RN - 07/27/2023 4:28 AM CST Pre-Arrival Note The patient is coming from [facility] and had a fall out of bed and has a SAH patient is on Coumadin and has INR 3.0 . The patient is Neuro intact and patients report called to Dr Aguilar patient accepted as a level 2 trauma transfer. Pallavi Cortez RN CTOR OF PURCHASING documented in this encounter Plan of Treatment Not on file documented as of this encounter Procedures Procedure Name Priority Date/Time Associated Diagnosis Comments POCT GLUCOSE DEVICE Routine 07/29/2023 1 2:18 PM DIRECTOR OF PURCHASING POCT GLUCOSE DEVICE Routine 07/29/2023 7 :40 AM DIRECTOR OF PURCHASING POCT GLUCOSE DEVICE Routine 07/29/2023 1 :54 AM DIRECTOR OF PURCHASING POCT GLUCOSE DEVICE Routine 07/28/2023 8 :34 PM DIRECTOR OF PURCHASING POCT GLUCOSE DEVICE Routine 07/28/2023 5 :22 PM DIRECTOR OF PURCHASING POCT GLUCOSE DEVICE Routine 07/28/2023 1 1:06 AM DIRECTOR OF PURCHASING POCT GLUCOSE DEVICE Routine 07/28/2023 7 :42 AM DIRECTOR OF PURCHASING POCT GLUCOSE DEVICE Routine 07/28/2023 2 :44 AM DIRECTOR OF PURCHASING EGFR Routine 07/27/2023 9:15 PM DIRECTOR OF PURCHASING CBC WITHOUT DIFFERENTIAL Routine 07/27/2023 9:15 PM DIRECTOR OF PURCHASING PHOSPHORUS Routine 07/27/2023 9:15 PM DIRECTOR OF PURCHASING MAGNESIUM Routine 07/27/2023 9:15 PM DIRECTOR OF PURCHASING BASIC METABOLIC PANEL Routine 07/27/2023 9:15 PM DIRECTOR OF PURCHASING POCT GLUCOSE DEVICE Routine 07/27/2023 8 :40 PM DIRECTOR OF PURCHASING POCT GLUCOSE DEVICE Routine 07/27/2023 5 :40 PM DIRECTOR OF PURCHASING POCT GLUCOSE DEVICE Routine 07/27/2023 1 :11 PM DIRECTOR OF PURCHASING XR KNEE LEFT 1 OR 2 VIEWS ED Urgent/IP Urgent 07/27/2023 12:50 PM DIRECTOR OF PURCHASING POCT GLUCOSE DEVICE Routine 07/27/2023 1 0:[address] HEAD WO CONTRAST ED Urgent/IP Urgent 07/27/2023 9:38 AM DIRECTOR OF PURCHASING OR CRITICAL CARE ILL/INJURED PATIENT INIT 30-74 MIN Routine 07/27/2023 9:00 AM DIRECTOR OF PURCHASING EGFR STAT 07/27/2023 8:57 AM DIRECTOR OF PURCHASING DIFFERENTIAL AUTO Routine 07/27/2023 8:5 7 AM DIRECTOR OF PURCHASING CBC WITH AUTO DIFFERENTIAL Routine 07/27/2023 8:57 AM DIRECTOR OF PURCHASING APTT Routine 07/27/2023 8:57 AM DIRECTOR OF PURCHASING PROTIME-INR STAT 07/27/2023 8:57 AM DIRECTOR OF PURCHASING TYPE AND SCREEN STAT 07/27/2023 8:57 AM DIRECTOR OF PURCHASING COMPREHENSIVE METABOLIC PANEL STAT 07/27/2023 8:57 AM DIRECTOR OF PURCHASING ECG 12-LEAD Routine 07/27/2023 8:41 AM DIRECTOR OF PURCHASING POCT GLUCOSE DEVICE Routine 07/27/2023 8 :41 AM DIRECTOR OF PURCHASING NEURO CT OUTSIDE CONSULT Routine 07/27/2023 8:38 AM DIRECTOR OF PURCHASING NEURO CT OUTSIDE CONSULT Routine 07/27/2023 8:37 AM DIRECTOR OF PURCHASING documented in this encounter Results * POCT glucose (07/29/2023 12:18 PM DIRECTOR OF PURCHASING) Glucose, POC 176 70 - 199 mg/dL [facility] Blood 07/29/2023 12:1 8 PM DIRECTOR OF PURCHASING 07/29/2023 12:18 PM DIRECTOR OF PURCHASING us Linnette Clari Hicks MD LAB POCT ORDERABLES - DEVICE Final Result [facility] Department of Laboratories [place] [address] * POCT glucose (07/29/2023 7:40 AM DIRECTOR OF PURCHASING) Glucose, POC 129 70 - 199 mg/dL [facility] Blood 07/29/2023 7:40 AM DIRECTOR OF PURCHASING 07/29/2023 7:40 AM DIRECTOR OF PURCHASING Linnettesree Hicks MD LAB POCT ORDERABLES - DEVICE Final Result Performing Organization Address City/[facility] Co de Phone Number [facility] [place] [address] * POCT glucose (07/29/2023 1:54 AM DIRECTOR OF PURCHASING) Glucose, POC 153 70 - 199 mg/dL [facility] Blood 07/29/2023 1:54 AM DIRECTOR OF PURCHASING 07/29/2023 1:54 AM DIRECTOR OF PURCHASING Linnettesree Hicks MD LAB POCT ORDERABLES - DEVICE Final Result Performing Organization Address City/[facility] Co de Phone Number [facility] [place] [address] * POCT glucose (07/28/2023 8:34 PM DIRECTOR OF PURCHASING) Glucose, POC 161 70 - 199 mg/dL [facility] Blood 07/28/2023 8:34 PM DIRECTOR OF PURCHASING 07/28/2023 8:34 PM DIRECTOR OF PURCHASING Linnettesree Hicks MD LAB POCT ORDERABLES - DEVICE Final Result Performing Organization Address City/[facility] [place] [address] * POCT glucose (07/28/2023 5:22 PM DIRECTOR OF PURCHASING) Glucose, POC 137 70 - 199 mg/dL [facility] Blood 07/28/2023 5:22 PM DIRECTOR OF PURCHASING 07/28/2023 5:22 PM DIRECTOR OF PURCHASING us Linnettesree Hicks MD LAB POCT ORDERABLES - DEVICE Final Result Performing Organization Address [facility] Co de Phone Number [facility] [place] [address] * (ABNORMAL) POCT glucose (07/28/2023 11:06 AM DIRECTOR OF PURCHASING) Glucose, POC 219(H) 70 - 199 mg/dL [facility] Blood 07/28/2023 11:0 6 AM DIRECTOR OF PURCHASING 07/28/2023 11:06 AM DIRECTOR OF PURCHASING us Linnettesree Hicks MD LAB POCT ORDERABLES - DEVICE Final Result Performing Organization Address [facility] de Phone Number [facility] [place] [address] * POCT glucose (07/28/2023 7:42 AM DIRECTOR OF PURCHASING) Glucose, POC 97 70 - 199 mg/dL [facility] Blood 07/28/2023 7:42 AM DIRECTOR OF PURCHASING 07/28/2023 7:42 AM DIRECTOR OF PURCHASING us Linnettesree Hicks MD LAB POCT ORDERABLES - DEVICE Final Result Performing Organization Address [facility] de Phone Number [facility] [place] [address] * POCT glucose (07/28/2023 2:44 AM DIRECTOR OF PURCHASING) Glucose, POC 116 70 - 199 mg/dL [facility] Blood 07/28/2023 2:44 AM DIRECTOR OF PURCHASING 07/28/2023 2:44 AM DIRECTOR OF PURCHASING us Linnette Hicks MD LAB POCT ORDERABLES - DEVICE Final Result Performing Organization Address [facility]/ZIP Co de Phone Number [facility] Department [place] [address] * eGFR (07/27/2023 9:15 PM DIRECTOR OF PURCHASING) eGFR 68 >=60 mL/min/1. 73 m2 [facility] Comment: [...] data was last reviewed 2021. Blood 07/27/2023 9:15 PM DIRECTOR OF PURCHASING 07/27/2023 10:40 PM DIRECTOR OF PURCHASING Cyndie Durham NP LAB BLOOD ORDERABLES Ruth arango Result [facility] Department [place] [address] * Phosphorus (07/27/2023 9:15 PM DIRECTOR OF PURCHASING) Pathologist [facility] Phosphorus, pl 2.6 2.3 - 4.5 mg/dL [facility] Blood 07/27/2023 9:15 PM DIRECTOR OF PURCHASING 07/27/2023 10:40 PM DIRECTOR OF PURCHASING Cyndie Durham FACING END TRIMMER LAB BLOOD ORDERABLES Ruth l Result Performing Organization Address [facility] Co de Phone Number [facility] [place] [address] * Magnesium (07/27/2023 9:15 PM DIRECTOR OF PURCHASING) Pathologist [facility] Magnesium 1.9 1.4 - 2.5 mg/dL [facility] Blood 07/27/2023 9:15 PM DIRECTOR OF PURCHASING 07/27/2023 10:40 PM DIRECTOR OF PURCHASING Cyndie Durham FACING END TRIMMER LAB BLOOD ORDERABLES Ruth l Result Performing Organization Address [facility] de Phone Number [facility] Department [place] [address] * (ABNORMAL) CBC without differential (07/27/2023 9:15 PM DIRECTOR OF PURCHASING) [facility] WBC 6.3 3.8 - 9.9 K/cumm [facility] Hgb 14.4 13.0 - 17.5 g/dL [facility] Hct 44.4 38.9 - 50.3 % [facility] Plt 213 150 - 400 K/cumm [facility] MPV 11.6 9.1 - 12.3 fL [facility] RBC 5.21 4.30 - 5.80 M/cumm [facility] MCV 85.2 81.3 - 96.4 fL [facility] MCH 27.6 27.1 - 33.3 pg [facility] MCHC 32.4 32.3 - 35.7 g/dL [facility] RDW CV 16.6(H) 11.1 - 14.9 % [facility] RDW SD 51.5(H) 35.7 - 48.1 fL [facility] NRBC abs 0.00 0.00 - 0.01 K/cumm [facility] Blood 07/27/2023 9:15 PM DIRECTOR OF PURCHASING 07/27/2023 10:41 PM DIRECTOR OF PURCHASING Cyndie Durham NP LAB BLOOD ORDERABLES Ruth l Result [facility] Department [place] [address] * (ABNORMAL) Basic metabolic panel (07/27/2023 9:15 PM DIRECTOR OF PURCHASING) Pathologist [facility] Sodium 143 135 - 145 mmol/L [facility] Potassium, pl 4.6 3.3 - 4.9 mmol/L [facility] Comment:Hemolyzed; Potassium value may be falsely elevated by as much as 0.6-1.0 mmol/L. Suggest redraw and reanalysis. Chloride 111(H) 97 - 110 mmol/L [facility] CO2 24 22 - 32 mmol/L [facility] Anion gap 8 2 - 15 mmol/L [facility] BUN 15 6 - 25 mg/dL [facility] Creatinine 1.10 0.80 - 1.30 mg/dL [facility] Glucose 136 70 - 199 mg/dL [facility] Comment: Interpretive Data Fasting glucose >/= 126 mg/dl is diagnostic for diabetes. ?? Fasting is defined as no caloric intake for at least 8 hours. Fasting glucose between 100 mg/dl to 125 mg/dl is diagnostic of prediabetes. In a patient with classic symptoms of hyperglycemia or hyperglycemic crisis, a random glucose >/= 200 mg/dl is diagnostic for diabetes. In the absence of unequivocal hyperglycemia, results should be confirmed by repeat testing. The classification and Diagnosis of Diabetes Diabetes Care 202; 46: S19-S40. Current interpretive data was last revised 2022. Calcium 7.4(L) 8.5 - 10.3 mg/dL [facility] Blood 07/27/2023 9:15 PM DIRECTOR OF PURCHASING 07/27/2023 10:40 PM DIRECTOR OF PURCHASING Cyndie Inocente Herminio FACING END TRIMMER LAB BLOOD ORDERABLES Ruth l Result Performing Organization Address City/[facility] Co de Phone Number [facility] [place] [address] * POCT glucose (07/27/2023 8:40 PM DIRECTOR OF PURCHASING) Glucose, POC 140 70 - 199 mg/dL [facility] Blood 07/27/2023 8:40 PM DIRECTOR OF PURCHASING 07/27/2023 8:40 PM DIRECTOR OF PURCHASING us Linnettelashell Hicks MD LAB POCT ORDERABLES - DEVICE Final Result Performing Organization Address [facility] [place] [address] * POCT glucose (07/27/2023 5:40 PM DIRECTOR OF PURCHASING) Glucose, POC 139 70 - 199 mg/dL [facility] Blood 07/27/2023 5:40 PM DIRECTOR OF PURCHASING 07/27/2023 5:40 PM DIRECTOR OF PURCHASING us Linnettesree Hicks MD LAB POCT ORDERABLES - DEVICE Final Result Performing Organization Address [facility] Co de Phone Number [facility] [place] [place] [address] * POCT glucose (07/27/2023 1:11 PM DIRECTOR OF PURCHASING) Glucose, POC 177 70 - 199 mg/dL [facility] Blood 07/27/2023 1:11 PM DIRECTOR OF PURCHASING 07/27/2023 1:11 PM DIRECTOR OF PURCHASING us Linnettesree Hicks MD LAB POCT ORDERABLES - DEVICE Final Result Performing Organization Address [facility] Co de Phone Number [facility] [place] [address] * XR Knee Left 1 or 2 Views (07/27/2023 12:50 PM DIRECTOR OF PURCHASING) Anatomical Region Laterality Modality Lower Extremities, Knee Left Digital Radiography 07/27/2023 3:12 PM DIRECTOR OF PURCHASING Impressions 07/27/2023 3:12 PM DIRECTOR OF PURCHASING 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 Electronically signed by: Doug Pineda MD Narrative 07/27/2023 3:12 PM DIRECTOR OF PURCHASING EXAM: 1. ??XR KNEE LEFT 1 OR 2 VIEWS HISTORY: pain after fall COMPARISON: Left knee radiographs, 03/11/2019. FINDINGS: 2 radiographs of the left knee were obtained. Redemonstrated left knee total arthroplasty is seen in unchanged, near anatomic alignment. ??No acute periprosthetic fracture or lucency is seen. ??There is mild patellar enthesophytes. ??Thickening of the patellar tendon shadow suggestive of tendinopathy. ??Small volume joint effusion. Procedure Note Doug Pineda MD - 07/27/2023 EXAM: 1. XR KNEE LEFT 1 OR 2 VIEWS HISTORY: pain after fall COMPARISON: Left knee radiographs, 03/11/2019. FINDINGS: 2 radiographs of the left knee were obtained. Redemonstrated left knee total arthroplasty is seen in unchanged, near anatomic alignment. No acute periprosthetic fracture or lucency is seen. There is mild patellar enthesophytes. Thickening of the patellar tendon shadow suggestive of tendinopathy. Small volume joint effusion. IMPRESSION: 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 Electronically signed by: Doug Pineda MD Cyndie Durham FACING END TRIMMER IMG XR PROCEDURES Final R esult * POCT glucose (07/27/2023 10:50 AM DIRECTOR OF PURCHASING) Glucose, POC 140 70 - 199 mg/dL [facility] Blood 07/27/2023 10:5 0 AM DIRECTOR OF PURCHASING 07/27/2023 10:50 AM DIRECTOR OF PURCHASING us Linnette Hicks MD LAB POCT ORDERABLES - DEVICE Final Result [facility] Department [place] [address] * CT Head WO Contrast (07/27/2023 9:38 AM DIRECTOR OF PURCHASING) Anatomical Region Laterality Modality Head and Neck N/A Computed Tomogra phy 07/27/2023 10:5 0 AM DIRECTOR OF PURCHASING Impressions 07/27/2023 1:51 PM DIRECTOR OF PURCHASING 1. ??No significant change in size of a small left parafalcine subarachnoid hemorrhage with possible trace adjacent subdural component. ?? 2. A few scattered hyperdensities in the extra-axial space along the right cerebral convexity of the parietal lobe are better evaluated on this examination, though may have been present on the outside study, and likely represent additional small subarachnoid hemorrhage. Dictated by: Saud Iraheta M.D. The radiology attending physician has personally reviewed this study, and had reviewed and/or edited this written report and agrees with it. Electronically signed by: Yaron Rush M.D. Narrative 07/27/2023 1:51 PM DIRECTOR OF PURCHASING EXAMINATION: CT head without contrast HISTORY: Follow-up subarachnoid hemorrhage, 82-year-old with mechanical fall TECHNIQUE: CT of the head was performed with images acquired from skull base to vertex without intravenous contrast. COMPARISON: Outside CT, same day FINDINGS: Redemonstrated small volume subarachnoid blood adjacent to the left aspect of the falx along the medial parietal lobe. ??Hyperdensities along the falx itself are less conspicuous than on prior exam. ??There is no new intracranial hemorrhage. ??A few areas of hyperdensity along the sulci of the right cerebral convexity (series 4 image 133) are more conspicuous than on the prior exam. There is global volume loss and mild ex vacuo dilatation of ventricles. No mass effect or midline shift is present. Mild periventricular white matter hypodensities compatible with chronic microvascular disease. Bilateral lens replacements are noted. The visualized portions of the mastoids are normal. The visualized portions of the paranasal sinuses are normal. No fractures are identified. Procedure Note Yaron Rush MD - 07/27/2023 EXAMINATION: CT head without contrast HISTORY: Follow-up subarachnoid hemorrhage, 82-year-old with mechanical fall TECHNIQUE: CT of the head was performed with images acquired from skull base to vertex without intravenous contrast. COMPARISON: Outside CT, same day FINDINGS: Redemonstrated small volume subarachnoid blood adjacent to the left aspect of the falx along the medial parietal lobe. Hyperdensities along the falx itself are less conspicuous than on prior exam. There is no new intracranial hemorrhage. A few areas of hyperdensity along the sulci of the right cerebral convexity (series 4 image 133) are more conspicuous than on the prior exam. There is global volume loss and mild ex vacuo dilatation of ventricles. No mass effect or midline shift is present. Mild periventricular white matter hypodensities compatible with chronic microvascular disease. Bilateral lens replacements are noted. The visualized portions of the mastoids are normal. The visualized portions of the paranasal sinuses are normal. No fractures are identified. IMPRESSION: 1. No significant change in size of a small left parafalcine subarachnoid hemorrhage with possible trace adjacent subdural component. 2. A few scattered hyperdensities in the extra-axial space along the right cerebral convexity of the parietal lobe are better evaluated on this examination, though may have been present on the outside study, and likely represent additional small subarachnoid hemorrhage. Dictated by: Saud Iraheta M.D. The radiology attending physician has personally reviewed this study, and had reviewed and/or edited this written report and agrees with it. Electronically signed by: Yaron Rush M.D. Carlota Blum MD IMG CT PROCEDURES Ruth l Result * OR CRITICAL CARE ILL/INJURED PATIENT INIT 30-74 MIN (07/27/2023 9:00 AM DIRECTOR OF PURCHASING) Narrative Leon Gardner MD - 07/27/2023 9:00 AM DIRECTOR OF PURCHASING Leon Gardner MD ? 07/29/2023 ??2:48 PM Critical Care Performed by: Leon Gardner MD Authorized by: Leon Gardner MD ?? Critical care provider statement: As reflected in the history, physical exam, orders, notes, and/or MDM, I was personally present while the patient was critically ill and provided critical care services for 35 minutes, excluding time involved in separately billable procedures. ??Critical care was necessary to treat or prevent imminent or life-threatening deterioration of the following condition(s): ?? Complex ear laceration ?? 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 continuous telemetry, continuous pulse oximetry, interpretation of bedside monitors, imaging, and arterial/venous lab draws and serial bedside patient exams ?? advanced wound care ?? I provided emergent necessary critical care medicine services to this patient. I ordered and reviewed test results and/or imaging studies. I spent time discussing the management of this critically ill patient with consultants and the medical staff. I spent time discussing the management and therapeutic options for this critically ill patient with the patient themselves or with the appropriate designated surrogate decision-maker. I spent time documenting in the medical record. us Leon Gardner MD IN CLINIC/BEDSIDE ORDERA BLES Final Result * eGFR (07/27/2023 8:57 AM DIRECTOR OF PURCHASING) [facility] eGFR 60 >=60 mL/min/1. 73 m2 [facility] Comment: Interpretive Data Reference Interval Normal [...] 2021. Blood 07/27/2023 8:57 AM DIRECTOR OF PURCHASING 07/27/2023 9:13 AM DIRECTOR OF PURCHASING Carlota Blum MD LAB BLOOD ORDERABLES F inal Result [facility] Department [place] [address] * (ABNORMAL) Differential, auto (07/27/2023 8:57 AM DIRECTOR OF PURCHASING) Neutrophil abs 4.9 1.5 - 6.5 K/cumm [facility] Imm gran abs 0.1 0.0 - 0.1 K/cumm [facility] Lymphocyte abs 1.4 0.8 - 3.3 K/cumm [facility] Monocyte abs 1.4(H) 0.2 - 0.8 K/cumm [facility] Eosinophil abs 0.2 0.0 - 0.5 K/cumm [facility] Basophil abs 0.0 0.0 - 0.1 K/cumm [facility] Neutrophil pct 61.2 % [facility] Comment: Interpretive Data Percent cell count reference ranges are not reported, since discordance with absolute values may lead to misinterpretation of CBC data. Current Interpretive Data was last revised on 2017. Imm gran pct 1.3 % [facility] Comment: Interpretive Data Percent cell count reference ranges are not reported, since discordance with absolute values may lead to misinterpretation of CBC data. Current Interpretive Data was last revised on 2017. Lymphocyte pct 17.4 % [facility] Comment: Interpretive Data Percent cell count reference ranges are not reported, since discordance with absolute values may lead to misinterpretation of CBC data. Current Interpretive Data was last revised on 2017. Monocyte pct 17.3 % [facility] Comment: Interpretive Data Percent cell count reference ranges are not reported, since discordance with absolute values may lead to misinterpretation of CBC data. Current Interpretive Data was last revised on 2017. Eosinophil pct 2.3 % [facility] Comment: Interpretive Data Percent cell count reference ranges are not reported, since discordance with absolute values may lead to misinterpretation of CBC data. Current Interpretive Data was last revised on 2017. Basophil pct 0.5 % [facility] Comment: Interpretive Data Percent cell count reference ranges are not reported, since discordance with absolute values may lead to misinterpretation of CBC data. Current Interpretive Data was last revised on 2017. Blood 07/27/2023 8:57 AM DIRECTOR OF PURCHASING 07/27/2023 9:03 AM DIRECTOR OF PURCHASING us Carlota Blum MD LAB BLOOD ORDERABLES F inal Result [facility] Department [place] [address] * (ABNORMAL) Comprehensive metabolic panel (07/27/2023 8:57 AM DIRECTOR OF PURCHASING) Sodium 143 135 - 145 mmol/L [facility] Potassium, pl 4.4 3.3 - 4.9 mmol/L [facility] Chloride 108 97 - 110 mmol/L [facility] CO2 31 22 - 32 mmol/L [facility] Anion gap 4 2 - 15 mmol/L [facility] BUN 16 6 - 25 mg/dL [facility] Creatinine 1.22 0.80 - 1.30 mg/dL [facility] Glucose 89 70 - 199 mg/dL [facility] Comment: Interpretive Data Fasting glucose >/= 126 mg/dl is diagnostic for diabetes. ?? Fasting is defined as no caloric intake for at least 8 hours. Fasting glucose between 100 mg/dl to 125 mg/dl is diagnostic of prediabetes. In a patient with classic symptoms of hyperglycemia or hyperglycemic crisis, a random glucose >/= 200 mg/dl is diagnostic for diabetes. In the absence of unequivocal hyperglycemia, results should be confirmed by repeat testing. The classification and Diagnosis of Diabetes Diabetes Care 202; 46: S19-S40. Current interpretive data was last revised 2022. Calcium 8.8 8.5 - 10.3 mg/dL [facility] Bilirubin, total 0.7 0.1 - 1.2 mg/dL [facility] Protein, pl 6.6 6.5 - 8.5 g/dL [facility] Albumin 3.4(L) 3.5 - 5.0 g/dL [facility] Alk phos 127 40 - 130 Units/L [facility] ALT 23 7 - 55 Units/L [facility] AST 26 10 - 50 Units/L [facility] Blood 07/27/2023 8:57 AM DIRECTOR OF PURCHASING 07/27/2023 9:03 AM DIRECTOR OF PURCHASING us Carlota Blum MD LAB BLOOD ORDERABLES F inal Result [facility] Department [place] [address] * (ABNORMAL) CBC with auto differential (07/27/2023 8:57 AM DIRECTOR OF PURCHASING) [facility] WBC 7.9 3.8 - 9.9 K/cumm [facility] Hgb 15.9 13.0 - 17.5 g/dL [facility] Hct 48.3 38.9 - 50.3 % [facility] Plt 256 150 - 400 K/cumm [facility] MPV 10.6 9.1 - 12.3 fL [facility] RBC 5.61 4.30 - 5.80 M/cumm [facility] MCV 86.1 81.3 - 96.4 fL [facility] MCH 28.3 27.1 - 33.3 pg [facility] MCHC 32.9 32.3 - 35.7 g/dL [facility] RDW CV 16.9(H) 11.1 - 14.9 % [facility] RDW SD 51.9(H) 35.7 - 48.1 fL [facility] NRBC abs 0.00 0.00 - 0.01 K/cumm [facility] Blood 07/27/2023 8:5 7 AM DIRECTOR OF PURCHASING 07/27/2023 9:03 AM DIRECTOR OF PURCHASING us Carlota Blum MD LAB BLOOD ORDERABLES F inal Result [facility] [place] [address] * Protime-INR (07/27/2023 8:57 AM DIRECTOR OF PURCHASING) PT 13.5 10.3 - 13.7 sec [facility] INR 1.18 0.90 - 1.20 [facility] Comment: Interpretive data Oral anticoagulant therapeutic ranges: Venous thromboembolism prophylaxis or treatment: 2.0-3.0 CARDIOLOGY Standard range: 2.0-3.0 High-intensity range: 2.5-3.5 Refer to indication-specific guidelines for appropriate target ranges for prosthetic heart valve replacement. Current interpretive data was last revised on 2019. Blood 07/27/2023 8:57 AM DIRECTOR OF PURCHASING 07/27/2023 9:03 AM DIRECTOR OF PURCHASING Carlota Blum MD LAB BLOOD ORDERABLES F inal Result Performing Organization Address City/[facility] [place] [address] * aPTT (07/27/2023 8:57 AM DIRECTOR OF PURCHASING) aPTT 30 28 - 38 sec [facility] Comment: Interpretive Data Heparin therapeutic range: 66.0 - 100.0 seconds. Range based on correlation with therapeutic heparin activity range of 0.3 - 0.7 Units/mL. Current interpretive data was last revised on 2023. Blood 07/27/2023 8:57 AM DIRECTOR OF PURCHASING 07/27/2023 9:03 AM DIRECTOR OF PURCHASING Carlota Blum MD LAB BLOOD ORDERABLES F inal Result [facility] [place] [address] * Type and screen (07/27/2023 8:57 AM DIRECTOR OF PURCHASING) Sanju, indirect Negative ABO Rh A Positive [facility] Blood 07/27/2023 8:57 AM DIRECTOR OF PURCHASING 07/27/2023 9:06 AM DIRECTOR OF PURCHASING Narrative [facility] - 07/27/2023 10:00 AM DIRECTOR OF PURCHASING Has the patient had Daratumumab or Isatuximab in the past 6 months?->Unknown us Carlota Blum MD LAB BLOOD BANK TEST OR DERABLES Final Result Performing Organization Address City/[facility]/ZIP Co de Phone Number [facility] [facility] Department [place] [address] * ECG 12-LEAD (07/27/2023 8:41 AM DIRECTOR OF PURCHASING) Narrative [facility] - 07/27/2023 8:41 AM DIRECTOR OF PURCHASING Carlota Blum MD ? 07/27/2023 ??8:42 AM ECG 12 lead Date/Time: 07/27/2023 8:41 AM Performed by: Carlota Blum MD Authorized by: Carlota Blum MD ?? Rate: ??ECG rate assessment: normal ?? Rhythm: ??Rhythm: sinus rhythm ?? Ectopy: ??Ectopy: none ?? QRS: ??QRS axis: ??Normal Conduction: ??Conduction: normal ?? ST segments: ??ST segments: ??Normal T waves: ??T waves: normal ?? Interpretation: ??Interpretation: normal ?? Recommended Follow-up: ??Recommended follow up: further workup in the ED ?? Carlota Blum MD ECG ORDERABLES Final Result [facility] * POCT glucose (07/27/2023 8:41 AM DIRECTOR OF PURCHASING) Glucose, POC 81 70 - 199 mg/dL [facility] Blood 07/27/2023 8:41 AM DIRECTOR OF PURCHASING 07/27/2023 8:41 AM DIRECTOR OF PURCHASING us Leon Gardner MD LAB POCT ORDERABLES - DE VICE Final Result [facility] Department [place] [address] * Neuro CT Outside Consult (07/27/2023 8:38 AM DIRECTOR OF PURCHASING) Anatomical Region Laterality Modality N/A Computed Tomogra phy 07/27/2023 9:32 AM DIRECTOR OF PURCHASING Impressions 07/27/2023 2:54 PM DIRECTOR OF PURCHASING 1. Small subarachnoid hemorrhage along the left falx with possible trace falcine subdural hemorrhage component. ?? 2. No evidence of acute fracture in the cervical spine. The findings, conclusions and recommendations within this report do not replace the initial findings, conclusions ??and recommendations made at the facility where the study was performed based upon the imaging and clinical condition at that time. ??Comparison with the prior report and clinical history is necessary. ??The provided images may or may not represent the the [place] source data set and thus may contain changes that may lower the accuracy of this second-opinion interpretation. Dictated by: Saud Iraheta M.D. The radiology attending physician has personally reviewed this study, and had reviewed and/or edited this written report and agrees with it. Electronically signed by: Yaron Rush M.D. Narrative 07/27/2023 2:54 PM DIRECTOR OF PURCHASING EXAMINATION: RADIOLOGY CONSULTATION ON OUTSIDE IMAGING STUDY STUDY INITIALLY PERFORMED: 07/27/2023 at [facility]. TYPE OF STUDY: Multiple CT images of the head and cervical spine without intravenous contrast are provided at the time of this interpretation. CONTRAST ROUTE: No contrast was administered. The protocol was adequate to address the clinical question. The outside final report was not available at the time of this second opinion interpretation. TYPE OF CONSULTATION: Consult on outside imaging study with images submitted through Outside Image Sharing Service DATE OF CONSULTATION: 07/27/2023 9:15 AM HISTORY: 82-year-old on anticoagulation with ground-level fall COMPARISON: None available. FINDINGS: HEAD: There is an acute-appearing subarachnoid hemorrhage seen along the left falx near the vertex (series 2 image 54). ??Areas of hyperdense thickening of the falx may represent a small component of subdural hemorrhage. ?? Superficial scalp hematoma posterior to the right ear. There is global volume loss with ex vacuo dilatation of the ventricles. ??Mild asymmetry of the extra-axial space along the left falx is noted possibly related to the subarachnoid hemorrhage, attention on follow-up. No significant midline shift. 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 Bilateral lens replacements. The visualized portions of the mastoids are normal. The visualized portions of the paranasal sinuses are normal. No fractures are identified. ??Intracranial atherosclerosis noted. CERVICAL SPINE: Bulky anterior osteophytes throughout the cervical spine. ??Additional degenerative changes at the tip of the dens. The alignment of the cervical spine is normal. There is no acute fracture. Vertebral bodies are normal in height without compression fractures. Intervertebral disk heights are normal. The craniocervical junction is normal. Limited views of the skull base appear normal. The sphenoid sinus is well aerated. No soft tissue abnormality is identified. There is left lower cervical facet arthropathy and upper thoracic facet arthropathy bilaterally. 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 There is multilevel neuroforaminal stenosis. There is mild spinal canal stenosis. Procedure Note Yaron Rush MD - 07/27/2023 EXAMINATION: RADIOLOGY CONSULTATION ON OUTSIDE IMAGING STUDY STUDY INITIALLY PERFORMED: 07/27/2023 at [facility]. TYPE OF STUDY: Multiple CT images of the head and cervical spine without intravenous contrast are provided at the time of this interpretation. CONTRAST ROUTE: No contrast was administered. The protocol was adequate to address the clinical question. The outside final report was not available at the time of this second opinion interpretation. TYPE OF CONSULTATION: Consult on outside imaging study with images submitted through Outside Image Sharing Service DATE OF CONSULTATION: 07/27/2023 9:15 AM HISTORY: 82-year-old on anticoagulation with ground-level fall COMPARISON: None available. FINDINGS: HEAD: There is an acute-appearing subarachnoid hemorrhage seen along the left falx near the vertex (series 2 image 54). Areas of hyperdense thickening of the falx may represent a small component of subdural hemorrhage. Superficial scalp hematoma posterior to the right ear. There is global volume loss with ex vacuo dilatation of the ventricles. Mild asymmetry of the extra-axial space along the left falx is noted possibly related to the subarachnoid hemorrhage, attention on follow-up. No significant midline shift. 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 Bilateral lens replacements. The visualized portions of the mastoids are normal. The visualized portions of the paranasal sinuses are normal. No fractures are identified. Intracranial atherosclerosis noted. CERVICAL SPINE: Bulky anterior osteophytes throughout the cervical spine. Additional degenerative changes at the tip of the dens. The alignment of the cervical spine is normal. There is no acute fracture. Vertebral bodies are normal in height without compression fractures. Intervertebral disk heights are normal. The craniocervical junction is normal. Limited views of the skull base appear normal. The sphenoid sinus is well aerated. No soft tissue abnormality is identified. There is left lower cervical facet arthropathy and upper thoracic facet arthropathy bilaterally. 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 There is multilevel neuroforaminal stenosis. There is mild spinal canal stenosis. IMPRESSION: 1. Small subarachnoid hemorrhage along the left falx with possible trace falcine subdural hemorrhage component. 2. No evidence of acute fracture in the cervical spine. The findings, conclusions and recommendations within this report do not replace the initial findings, conclusions and recommendations made at the facility where the study was performed based upon the imaging and clinical condition at that time. Comparison with the prior report and clinical history is necessary. The provided images may or may not represent the the [place] source data set and thus may contain changes that may lower the accuracy of this second-opinion interpretation. Dictated by: Saud Iraheta M.D. The radiology attending physician has personally reviewed this study, and had reviewed and/or edited this written report and agrees with it. Electronically signed by: Yaron Rush M.D. us Letty Hassan MD IMG CT PROCEDURES Final Re sult * Neuro CT Outside Consult (07/27/2023 8:37 AM DIRECTOR OF PURCHASING) Anatomical Region Laterality Modality N/A Computed Tomogra phy 07/27/2023 9:32 AM DIRECTOR OF PURCHASING Impressions 07/27/2023 2:54 PM DIRECTOR OF PURCHASING 1. Small subarachnoid hemorrhage along the left falx with possible trace falcine subdural hemorrhage component. ?? 2. No evidence of acute fracture in the cervical spine. The findings, conclusions and recommendations within this report do not replace the initial findings, conclusions ??and recommendations made at the facility where the study was performed based upon the imaging and clinical condition at that time. ??Comparison with the prior report and clinical history is necessary. ??The provided images may or may not represent the the [place] source data set and thus may contain changes that may lower the accuracy of this second-opinion interpretation. Dictated by: Saud Iraheta M.D. The radiology attending physician has personally reviewed this study, and had reviewed and/or edited this written report and agrees with it. Electronically signed by: Yaron Rush M.D. Narrative 07/27/2023 2:54 PM DIRECTOR OF PURCHASING EXAMINATION: RADIOLOGY CONSULTATION ON OUTSIDE IMAGING STUDY STUDY INITIALLY PERFORMED: 07/27/2023 at [facility]. TYPE OF STUDY: Multiple CT images of the head and cervical spine without intravenous contrast are provided at the time of this interpretation. CONTRAST ROUTE: No contrast was administered. The protocol was adequate to address the clinical question. The outside final report was not available at the time of this second opinion interpretation. TYPE OF CONSULTATION: Consult on outside imaging study with images submitted through Outside Image Sharing Service DATE OF CONSULTATION: 07/27/2023 9:15 AM HISTORY: 82-year-old on anticoagulation with ground-level fall COMPARISON: None available. FINDINGS: HEAD: There is an acute-appearing subarachnoid hemorrhage seen along the left falx near the vertex (series 2 image 54). ??Areas of hyperdense thickening of the falx may represent a small component of subdural hemorrhage. ?? Superficial scalp hematoma posterior to the right ear. There is global volume loss with ex vacuo dilatation of the ventricles. ??Mild asymmetry of the extra-axial space along the left falx is noted possibly related to the subarachnoid hemorrhage, attention on follow-up. No significant midline shift. 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 Bilateral lens replacements. The visualized portions of the mastoids are normal. The visualized portions of the paranasal sinuses are normal. No fractures are identified. ??Intracranial atherosclerosis noted. CERVICAL SPINE: Bulky anterior osteophytes throughout the cervical spine. ??Additional degenerative changes at the tip of the dens. The alignment of the cervical spine is normal. There is no acute fracture. Vertebral bodies are normal in height without compression fractures. Intervertebral disk heights are normal. The craniocervical junction is normal. Limited views of the skull base appear normal. The sphenoid sinus is well aerated. No soft tissue abnormality is identified. There is left lower cervical facet arthropathy and upper thoracic facet arthropathy bilaterally. 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 There is multilevel neuroforaminal stenosis. There is mild spinal canal stenosis. Procedure Note Yaron Rush MD - 07/27/2023 EXAMINATION: RADIOLOGY CONSULTATION ON OUTSIDE IMAGING STUDY STUDY INITIALLY PERFORMED: 07/27/2023 at [facility]. TYPE OF STUDY: Multiple CT images of the head and cervical spine without intravenous contrast are provided at the time of this interpretation. CONTRAST ROUTE: No contrast was administered. The protocol was adequate to address the clinical question. The outside final report was not available at the time of this second opinion interpretation. TYPE OF CONSULTATION: Consult on outside imaging study with images submitted through Outside Image Sharing Service DATE OF CONSULTATION: 07/27/2023 9:15 AM HISTORY: 82-year-old on anticoagulation with ground-level fall COMPARISON: None available. FINDINGS: HEAD: There is an acute-appearing subarachnoid hemorrhage seen along the left falx near the vertex (series 2 image 54). Areas of hyperdense thickening of the falx may represent a small component of subdural hemorrhage. Superficial scalp hematoma posterior to the right ear. There is global volume loss with ex vacuo dilatation of the ventricles. Mild asymmetry of the extra-axial space along the left falx is noted possibly related to the subarachnoid hemorrhage, attention on follow-up. No significant midline shift. 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 Bilateral lens replacements. The visualized portions of the mastoids are normal. The visualized portions of the paranasal sinuses are normal. No fractures are identified. Intracranial atherosclerosis noted. CERVICAL SPINE: Bulky anterior osteophytes throughout the cervical spine. Additional degenerative changes at the tip of the dens. The alignment of the cervical spine is normal. There is no acute fracture. Vertebral bodies are normal in height without compression fractures. Intervertebral disk heights are normal. The craniocervical junction is normal. Limited views of the skull base appear normal. The sphenoid sinus is well aerated. No soft tissue abnormality is identified. There is left lower cervical facet arthropathy and upper thoracic facet arthropathy bilaterally. 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 There is multilevel neuroforaminal stenosis. There is mild spinal canal stenosis. IMPRESSION: 1. Small subarachnoid hemorrhage along the left falx with possible trace falcine subdural hemorrhage component. 2. No evidence of acute fracture in the cervical spine. The findings, conclusions and recommendations within this report do not replace the initial findings, conclusions and recommendations made at the facility where the study was performed based upon the imaging and clinical condition at that time. Comparison with the prior report and clinical history is necessary. The provided images may or may not represent the the [place] source data set and thus may contain changes that may lower the accuracy of this second-opinion interpretation. Dictated by: Saud Iraheta M.D. The radiology attending physician has personally reviewed this study, and had reviewed and/or edited this written report and agrees with it. Electronically signed by: Yaron Rush M.D. 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) Pure hypercholesterolemia Hypertension Unspecified essential hypertension Paroxysmal atrial fibrillation (CMS/HCC) (HCC) Atrial fibrillation Polycythemia Polycythemia, secondary Morbid obesity with BMI of 45.0-49.9, adult (HCC) Osteomyelitis of lumbar spine (HCC) Hypothyroid Unspecified hypothyroidism Encounter for medication review documented in this encounter Admitting Diagnoses Diagnosis SAH (subarachnoid hemorrhage) (CMS/HCC) (HCC) Subarachnoid hemorrhage documented in this encounter Administered Medications Inactive Administered Medications - up to 3 most recent administrations Medication Order MAR Action Action Date Dose Rate Site acetaminophen (TYLENOL) tablet 650 mg 650 mg, oral, Every 6 hours, First dose on 12/25/23 at 1215, Indications: PainIndications:Pain Given 07/29/2023 6:04 AM DIRECTOR OF PURCHASING 650 mg Given 07/28/2023 11:15 PM DIRECTOR OF PURCHASING 650 mg Given 07/28/2023 5:52 PM DIRECTOR OF PURCHASING 650 mg atorvastatin (LIPITOR) tablet 20 mg 20 mg, oral, Daily, First dose on Thu07/29/23 at 0900 Given 07/29/2023 9:06 AM DIRECTOR OF PURCHASING 20 mg atorvastatin (LIPITOR) tablet 40 mg 40 mg, oral, Daily, First dose on Thu07/27/23 at 1215 Given 07/28/2023 8:45 AM DIRECTOR OF PURCHASING 40 mg Given 07/27/2023 12:59 PM DIRECTOR OF PURCHASING 40 mg azelastine (ASTELIN) 137 mcg (0.1 %) nasal spray 1 spray 1 spray, each nostril, Daily, First dose on Thu07/27/23 at 1215 Given 07/28/2023 9:14 AM DIRECTOR OF PURCHASING 1 spray azelastine (ASTELIN) 137 mcg (0.1 %) nasal spray 1 spray 1 spray, each nostril, 2 times daily, First dose (after last modification) on Thu07/29/23 at 0900 Given 07/29/2023 9:07 AM DIRECTOR OF PURCHASING 1 spray bacitracin 500 unit/gram ointment packet 1 Application 1 Application, topical, 3 times daily, First dose on Thu07/27/23 at 1600, For 3 days, Apply to affected area: other Given 07/29/2023 9:06 AM DIRECTOR OF PURCHASING 1 Application Given 07/28/2023 9:12 PM DIRECTOR OF PURCHASING 1 Application Given 07/28/2023 3:11 PM DIRECTOR OF PURCHASING 1 Application baclofen (LIORESAL) tablet 10 mg 10 mg, oral, 3 times daily with meals, First dose on Thu07/27/23 at 1215 Given 07/29/2023 12:53 PM DIRECTOR OF PURCHASING 10 mg Given 07/29/2023 9:05 AM DIRECTOR OF PURCHASING 10 mg Given 07/28/2023 5:52 PM DIRECTOR OF PURCHASING 10 mg Carrier Fluids for Secondary Infusion - 0.9% Sodium Chloride 30 mL, intravenous, As needed, For priming tubing and/or flushing, Starting on Thu07/27/23 at 1135, 0-250 ml/hr to flush line after IV infusions when no maintenance IV ordered. Infuse 30mL at the same rate as the secondary infusion. Run as primary IV, not intended for KVO. cholecalciferol (VITAMIN D-3) capsule 1,000 Units 1,000 Units, oral, Daily, First dose on Thu07/27/23 at 1215, Each capsule contains 1,000 units (25 mcg) of cholecalciferol. Given 07/28/2023 8:47 AM DIRECTOR OF PURCHASING 1,000 Units Given 07/27/2023 12:58 PM DIRECTOR OF PURCHASING 1,000 Units dapagliflozin propanediol (FARXIGA) tablet 5 mg 5 mg, oral, Daily, First dose on Thu07/27/23 at 1215, Indications: heart failure associated with type 2 diabetes mellitusIndications:heart failure associated with type 2 diabetes mellitus Given 07/29/2023 9:07 AM DIRECTOR OF PURCHASING 5 mg Given 07/28/2023 8:46 AM DIRECTOR OF PURCHASING 5 mg Given 07/27/2023 2:02 PM DIRECTOR OF PURCHASING 5 mg dextrose (D10W) 10% bolus 250 mL 250 mL, intravenous, at 250 mL/hr, Administer over 60 Minutes, Once, On Thu07/27/23 at 0951, For 1 dose New Bag 07/27/2023 9:57 AM DIRECTOR OF PURCHASING 250 m L 250 mL/hr dextrose (D10W) 10% bolus 250 mL 250 mL, intravenous, at 1,000 mL/hr, Administer over 15 Minutes, Every 15 min PRN, blood glucose less than 70 mg/dL and UNABLE to swallow/take PO glucose/juice., Starting on Thu07/27/23 at 1135, After treatment for hypoglycemia, recheck BG followed by treatment every 15 minutes until the BG is greater than 100 mg/dL. Then check BG 1 hour post treatment. If BG is less than 100 mg/dL, repeat Q15 minute BG checks and treatment. Call MD for each episode of hypoglycemia., Indications: hypoglycemic disorderIndications:hypoglycemic disorder dextrose gel in packet 15 g 15 g, oral, Every 15 min PRN, low blood sugar, blood glucose less than 70 mg/dL, Starting on Thu07/27/23 at 1135, If patient is alert and able to eat/drink, give 15 gm glucose or one juice (4 fluid ounces) NOT ORANGE JUICE. After treatment for hypoglycemia, recheck BG followed by treatment every 15 minutes until the BG is greater than 100 mg/dL. Then check BG 1 hour post-treatment. If BG is less than 100 mg/dL, repeat Q15 minute BG checks and treatment. Call MD for each episode of hypoglycemia., Indications: hypoglycemic disorderIndications:hypoglycemic disorder doxycycline (VIBRAMYCIN) tablet/capsule 100 mg 100 mg, oral, 2 times daily (for quinolones,etc), First dose on Thu07/27/23 at 1800, Give 2 hrs before or 2 hrs after MVI, antacids, or other products containing sucralfate, magnesium, aluminum, iron, or zinc. May be taken without regard to meals., Indications: Chronic SuppressionIndications:Chronic Suppression Given 07/29/2023 6:04 AM DIRECTOR OF PURCHASING 100 mg Given 07/28/2023 5:52 PM DIRECTOR OF PURCHASING 100 mg Given 07/28/2023 6:31 AM DIRECTOR OF PURCHASING 100 mg flecainide (TAMBOCOR) tablet 50 mg 50 mg, oral, 2 times daily, First dose on Thu07/27/23 at 1215 Given 07/29/2023 9:06 AM DIRECTOR OF PURCHASING 50 mg Given 07/28/2023 9:12 PM DIRECTOR OF PURCHASING 50 mg Given 07/28/2023 8:46 AM DIRECTOR OF PURCHASING 50 mg fluticasone propionate (FLONASE) 50 mcg/actuation nasal spray 1 spray 1 spray, each nostril, Daily, First dose on Thu07/27/23 at 1215 Given 07/28/2023 9:13 AM DIRECTOR OF PURCHASING 1 spray qfrmakxrgez-tvybaxetn-pqymcce r (TRELEGY ELLIPTA) 100-62.5-25 mcg inhaler 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, inhalation, Daily (sales correspondence clerk), First dose (after last modification) on Thu07/28/23 at 0900, Rinse mouth with water after use. Do not swallow. Given 07/28/2023 9:00 AM DIRECTOR OF PURCHASING 1 puff jikoltohaxw-hffjtwbkf-tisrybz r (TRELEGY ELLIPTA) 200-62.5-25 mcg inhaler 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, inhalation, Daily, First dose on Thu07/29/23 at 0900, Rinse mouth with water after use. Do not swallow. Given 07/29/2023 9:22 AM DIRECTOR OF PURCHASING 1 puff glucagon injection 1 mg 1 mg, intramuscular, Every 30 min PRN, low blood sugar, blood glucose less than 70 mg/dL AND no IV access AND unable to take PO glucose/juice., Starting on Thu07/27/23 at 1135, After Glucagon is administered, position patient on side if possible to avoid aspiration. Obtain IV access. Follow glucagon treatment with glucose treatment or IV dextrose. After treatment for hypoglycemia, recheck BG followed by treatment every 15 minutes until the BG is greater than 100 mg/dL. Then check BG 1 hour post treatment. If BG is less than 100 mg/dL, repeat Q15 minute BG checks and treatment. Call MD for each episode of hypoglycemia. Reconstitute 1 mg vial with 1 mL SWFI. Use immediately following reconstitution. insulin glargine (LANTUS, SEMGLEE) 100 unit/mL injection 20 Units 20 Units, subcutaneous, Nightly, First dose on Thu07/27/23 at 2100, Do not hold if NPO. Do not mix with other insulins, Indications: Diabetes MellitusIndications:Diabetes Mellitus Given 07/28/2023 9:14 PM DIRECTOR OF PURCHASING 20 Units Left Lower Abdomen Given 07/27/2023 9:17 PM DIRECTOR OF PURCHASING 20 Units Le ft Upper Arm insulin lispro (HumaLOG, ADMELOG) 100 unit/mL injection 0-10 Units 0-10 Units, subcutaneous, 3 times daily with meals, First dose on Thu07/27/23 at 1800, Blood glucose mg/dL: 149 or less: No insulin 150-199: add 2 unit 200-249: add 4 units 250-299: add 6 units 300-349: add 8 units and notify physician for adjustment of insulin orders. 350-399: add 10 units and notify physician for adjustment of insulin orders. Over 400: Notify physician for adjustment of insulin orders. Do NOT hold for NPO Status, Indications: Diabetes MellitusIndications:Diabetes Mellitus Given 07/29/2023 12:53 PM DIRECTOR OF PURCHASING 2 Units Right Lower Abdomen Given 07/28/2023 12:26 PM DIRECTOR OF PURCHASING 4 Units L eft Upper Arm insulin lispro (HumaLOG, ADMELOG) 100 unit/mL injection 0-5 Units 0-5 Units, subcutaneous, 3 times daily with meals, First dose on Thu07/27/23 at 1215, Blood glucose mg/dL: 149 or less: No insulin 150-199: add 1 unit 200-249: add 2 units 250-299: add 3 units 300-349: add 4 units and notify physician for adjustment of insulin orders. 350-399: add 5 units and notify physician for adjustment of insulin orders. Over 400: Notify physician for adjustment of insulin orders. Do NOT hold for NPO Status, Indications: Diabetes MellitusIndications:Diabetes Mellitus Given 07/27/2023 2:02 PM DIRECTOR OF PURCHASING 1 Units Left Lower Abdomen insulin lispro (HumaLOG, ADMELOG) 100 unit/mL injection 0-5 Units 0-5 Units, subcutaneous, Nightly, First dose on Thu07/27/23 at 2100, Blood glucose mg/dL: 149 or less: No insulin 150-199: add 1 unit 200-249: add 2 units 250-299: add 3 units 300-349: add 4 units and notify physician for adjustment of insulin orders. 350-399: add 5 units and notify physician for adjustment of insulin orders. Over 400: Notify physician for adjustment of insulin orders. Do NOT hold for NPO Status, Indications: Diabetes MellitusIndications:Diabetes Mellitus Given 07/28/2023 9:13 PM DIRECTOR OF PURCHASING 1 Units Left Lower Abdomen levETIRAcetam (KEPPRA) 500 mg/100 mL in sodium chloride (premix) 500 mg 500 mg, intravenous, Administer over 15 Minutes, Every 12 hours scheduled, First dose on Thu07/27/23 at 0840, Room temperature only New Bag 07/28/2023 8:54 AM DIRECTOR OF PURCHASING 500 mg New Bag 07/27/2023 9:18 PM DIRECTOR OF PURCHASING 500 mg New Bag 07/27/2023 9:07 AM DIRECTOR OF PURCHASING 500 mg levETIRAcetam (KEPPRA) tablet 500 mg 500 mg, oral, 2 times daily, First dose on Thu07/28/23 at 2100, For 11 doses, May mix with 120 mL of enteral nutrition formula or disperse crushed tablets (500 mg tablet strength studied) in 10 mL of water, shake for 5 minutes to dissolve, and administer immediately via enteral feeding tube Given 07/29/2023 9:06 AM DIRECTOR OF PURCHASING 500 mg Given 07/28/2023 9:12 PM DIRECTOR OF PURCHASING 500 mg levothyroxine (SYNTHROID) tablet 50 mcg 50 mcg, oral, Daily, First dose on Thu07/27/23 at 1215, Administer on an empty stomach, preferably 30 minutes before breakfast. Take 4 hours apart from antacids, iron and calcium products. Separate from tube feeds, if applicable. Given 07/29/2023 9:05 AM DIRECTOR OF PURCHASING 50 mcg Given 07/28/2023 8:45 AM DIRECTOR OF PURCHASING 50 mcg Given 07/27/2023 12:58 PM DIRECTOR OF PURCHASING 50 mcg lidocaine-EPINEPHrine (XYLOCAINE with EPI) 1 %-1:200,000 preservative free injection 20 mL 20 mL, infiltration, Once, On Thu07/27/23 at 0916, For 1 dose, Indications: Administration of Local AnesthesiaIndications:Administration of Local Anesthesia Given 07/27/2023 9:38 AM DIRECTOR OF PURCHASING 20 mL metoprolol tartrate (LOPRESSOR) immediate release tablet 12.5 mg 12.5 mg, oral, 2 times daily, First dose on Thu07/27/23 at 1215 Given 07/29/2023 9:06 AM DIRECTOR OF PURCHASING 12.5 mg Given 07/28/2023 9:12 PM DIRECTOR OF PURCHASING 12.5 mg Given 07/28/2023 8:46 AM DIRECTOR OF PURCHASING 12.5 mg oxyCODONE (ROXICODONE) tablet 5 mg 5 mg, oral, Every 4 hours PRN, 1st line for pain, Starting on Thu07/27/23 at 1135, Indications: PainIndications:Pain Given 07/29/2023 9:35 AM DIRECTOR OF PURCHASING [address] (PROTONIX) extended release tablet 40 mg 40 mg, oral, Daily, First dose on Thu07/27/23 at 1215, Do not crush, chew, cut, dissolve, open or otherwise manipulate tablet/capsule., Indications: Stress Ulcer ProphylaxisIndications:Stress Ulcer Prophylaxis Given 07/29/2023 9:07 AM DIRECTOR OF PURCHASING 40 mg Given 07/28/2023 8:47 AM DIRECTOR OF PURCHASING 40 mg Given 07/27/2023 12:59 PM DIRECTOR OF PURCHASING 40 mg pregabalin (LYRICA) capsule 150 mg 150 mg, oral, 3 times daily, First dose (after last modification) on Thu07/28/23 at 1600 Given 07/29/2023 9:07 AM DIRECTOR OF PURCHASING 150 mg Given 07/28/2023 9:12 PM DIRECTOR OF PURCHASING 150 mg Given 07/28/2023 3:11 PM DIRECTOR OF PURCHASING 150 mg pregabalin (LYRICA) capsule 75 mg 75 mg, oral, 3 times daily, First dose on Thu07/27/23 at 1600 Given 07/28/2023 8:46 AM DIRECTOR OF PURCHASING 75 mg Given 07/27/2023 9:17 PM DIRECTOR OF PURCHASING 75 mg Given 07/27/2023 5:56 PM DIRECTOR OF PURCHASING 75 mg ramelteon (ROZEREM) tablet 8 mg 8 mg, oral, Once as needed, sleep, Starting on Thu07/28/23 at 2312, For 1 dose, Indications: Sleep-Onset InsomniaIndications:Sleep-Onset Insomnia Given 07/28/2023 11:14 PM DIRECTOR OF PURCHASING 8 mg senna-docusate (PERICOLACE) 8.6-50 mg per tablet 1 tablet 1 tablet, oral, 2 times daily, First dose on Thu07/27/23 at 1215, Hold for diarrhea., Indications: constipationIndications:constipation Given 07/29/2023 9:06 AM DIRECTOR OF PURCHASING 1 table t Given 07/28/2023 9:12 PM DIRECTOR OF PURCHASING 1 tablet Given 07/28/2023 8:46 AM DIRECTOR OF PURCHASING 1 tablet sodium chloride 0.9% flush 0.5-20 mL 0.5-20 mL, intra-catheter, Every 8 hours scheduled, First dose on Thu07/27/23 at 1400, Flush volume based on line type and size. Given 07/29/2023 6:05 AM DIRECTOR OF PURCHASING 10 mL Given 07/28/2023 9:13 PM DIRECTOR OF PURCHASING 10 mL Given 07/28/2023 3:12 PM DIRECTOR OF PURCHASING 10 mL sodium chloride 0.9% flush 0.5-20 mL 0.5-20 mL, intra-catheter, As needed, line care, Starting on Thu07/27/23 at 1135, Flush volume based on line type and size. Flush before and after each use. sodium chloride 0.9% irrigation 1,000 mL 1,000 mL, irrigation, Once, On Thu07/27/23 at 0916, For 1 dose Given 07/27/2023 9:38 AM DIRECTOR OF PURCHASING 1,000 mL tamsulosin (FLOMAX) extended release capsule 0.4 mg 0.4 mg, oral, Daily with dinner, First dose on Thu07/27/23 at 1800, Do not crush, chew, cut, dissolve, open or otherwise manipulate tablet/capsule. Given 07/27/2023 5:55 PM DIRECTOR OF PURCHASING 0.4 mg tamsulosin (FLOMAX) extended release capsule 0.8 mg 0.8 mg, oral, Daily with dinner, First dose (after last modification) on Thu07/28/23 at 1800, Do not crush, chew, cut, dissolve, open or otherwise manipulate tablet/capsule. Given 07/28/2023 5:52 PM DIRECTOR OF PURCHASING 0.8 mg documented in this encounter Discontinued Medications Medication Sig Discontinue Reason Start Date End Da te doxycycline (doxycycline hyclate) 100 mg capsule take 1 capsule by oral route 2 times every day Alternate therapy 04/21/2016 07/28/2023 pregabalin (LYRICA) 75 mg capsule take 1 capsule by oral route 3 times every day Alternate therapy 04/21/2016 07/28/2023 insulin lispro (HumaLOG) 100 unit/mL cartridge inject by subcutaneous route per prescriber's instructions. Insulin dosing requires individualization. Alternate therapy 04/21/2016 07/28/2023 warfarin (COUMADIN) 3 mg tabletIndications:at rial fibrillation,Venous Thrombosis Take 1 tablet (3 mg total) by mouth daily Alternate therapy 03/16/2019 07/28/2023 Trelegy Ellipta 100-62.5-25 mcg inhaler USE 1 INHALATION DAILY Alternate therapy 07/26/2020 023 atorvastatin (LIPITOR) 40 mg tablet TAKE 1 TABLET BY MOUTH EVERY DAY Alternate therapy 08/01/2021 07/28/2023 acetaminophen 500 mg capsule Take 2 capsules (1,000 mg total) by mouth every 6 (six) hours Therapy completed 03/16/2019 07/28/2023 cholecalciferol (VITAMIN D3) 1,000 unit capsule take 1 Capsule by Oral route 2 times every day Stop Taking at Discharge 04/21/2016 07/29/2023 diclofenac sodium (VOLTAREN) 1 % gel APPLY 4 GRAMS TOPICALLY FOUR TIMES DAILY - APPLY TO LEFT SHOULDER AND ARM DAILY UP TO 4 TIMES A DAY Stop Taking at Discharge 06/09/2023 07/29/2023 fluticasone propionate (FLONASE) 50 mcg/actuation nasal spray ADMINISTER 1 SPRAY INTO EACH NOSTRIL EVERY 12 HOURS Stop Taking at Discharge 06/29/2023 07/29/2023 HYDROcodone-acetamin ophen (NORCO) 7.5-325 mg per tablet Take by mouth every 6 (six) hours as needed Stop Taking at Discharge 04/15/2023 07/29/2023 warfarin (COUMADIN) 5 mg tablet Take 1 tablet (5 mg total) by mouth daily Stop Taking at Discharge 06/13/2023 07/29/2023 documented as of this encounter Historical Medications * This list may reflect changes made after this encounter. pregabalin (LYRICA) 150 mg capsule Take 1 capsule (150 mg total) by mouth 3 (three) times a day 05/13/2023 insulin lispro (HumaLOG, ADMELOG) 100 unit/mL pen for injection Inject 8-10 Units under the skin 3 (three) times a day with meals 05/12/2023 Trelegy Ellipta 200-62.5-25 mcg inhaler Inhale 1 puff daily 06/19/2023 doxycycline 100 mg tablet Take 1 tablet/capsul e (100 mg total) by mouth every 12 (twelve) hours 04/25/2023 atorvastatin (LIPITOR) 20 mg tablet Take 1 tablet (20 mg total) by mouth daily 07/11/2023 warfarin (COUMADIN) 5 mg tablet Take 1 tablet (5 mg total) by mouth daily 06/13/2023 07/29/2023 added in this encounter Active and Recently Administered Medications Times are shown in DIRECTOR OF PURCHASING. Scheduled Medication Order 07/27/2023 07/28/2023 07/29/2023 acetaminophen (TYLENOL) tablet 650 mg 650 mg, oral, Every 6 hours, First dose on Thu07/27/23 at 1215, Indications: Pain 1258 (Given - Provider: Josephine Iglesias, JÚNIOR)1755 (Given - Provider: Josephine Iglesias, JÚNIOR) 0015 (Not Given - Provider: Cassandra Lai RN - Reason: Patient/family refused)0631 (Given - Provider: Cassandra Lai, RN)1225 (Given - Provider: Farhana Soliman, JÚNIOR)1752 (Given - Provider: Farhana Soliman, RN)2315 (Given - Provider: Sweetie Barnett, JÚNIOR) 0604 (Given - Provider: Sweetie Barnett, JÚNIOR)1253 (Not Given - Provider: Farhana Soliman, JÚNIOR - Reason: Patient/family refused) atorvastatin (LIPITOR) tablet 20 mg 20 mg, oral, Daily, First dose on Thu07/29/23 at 0900 0906 (Given - Provider: Farhana Soliman RN) atorvastatin (LIPITOR) tablet 40 mg (CANCELED) 40 mg, oral, Daily, First dose on Thu07/27/23 at 1215 1259 (Given - Provider: Josephine Iglesias RN) 0845 (Given - Provider: Farhana Soliman, RN) azelastine (ASTELIN) 137 mcg (0.1 %) nasal spray 1 spray (CANCELED) 1 spray, each nostril, Daily, First dose on Thu07/27/23 at 1215 1215 (Not Given - Provider: Josephine Iglesias RN - Reason: Medication not available) 0914 (Given - Provider: Farhana Soliman, RN) azelastine (ASTELIN) 137 mcg (0.1 %) nasal spray 1 spray 1 spray, each nostril, 2 times daily, First dose (after last modification) on Thu07/29/23 at 0900 0907 (Given - Provider: Farhana Soliman, RN) bacitracin 500 unit/gram ointment packet 1 Application 1 Application, topical, 3 times daily, First dose on Thu07/27/23 at 1600, For 3 days, Apply to affected area: other 175 (Given - Provider: Josephine Iglesias, JÚNIOR)211 (Given - Provider: Cassandra Lai RN) 0846 (Given - Provider: Farhana Soliman, JÚNIOR)1511 (Given - Provider: Farhana Soliman, RN)2112 (Given - Provider: Sweetie Barnett, JÚNIOR) 0906 (Given - Provider: Farhana Soliman, RN) baclofen (LIORESAL) tablet 10 mg 10 mg, oral, 3 times daily with meals, First dose on Thu07/27/23 at 1215 1258 (Given - Provider: Josephine Iglesias, JÚNIOR)1755 (Given - Provider: Josephine Iglesias, JÚNIOR) 0846 (Given - Provider: Farhana Soliman, RN)1225 (Given - Provider: Farhana Soliman, RN)1752 (Given - Provider: Farhana Soliman, RN) 0905 (Given - Provider: Farhana Soliman, RN)1253 (Given - Provider: Farhana Soliman, RN) cholecalciferol (VITAMIN D-3) capsule 1,000 Units (CANCELED) 1,000 Units, oral, Daily, First dose on Thu07/27/23 at 1215, Each capsule contains 1,000 units (25 mcg) of cholecalciferol. 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 1402 (Given - Provider: Josephine Iglesias, RN) 0846 (Given - Provider: Farhana Soliman, RN) 0907 (Given - Provider: Farhana Soliman, RN) dextrose (D10W) 10% bolus 250 mL (COMPLETED) 250 mL, intravenous, at 250 mL/hr, Administer over 60 Minutes, Once, On Thu07/27/23 at 0951, For 1 dose 0957 (New Bag - Provider: Blake Bedoya, RN)1057 (Stopped - Provider: Blake Bedoya, RN) doxycycline (VIBRAMYCIN) tablet/capsule 100 mg 100 mg, oral, 2 times daily (for quinolones,etc), First dose on Thu07/27/23 at 1800, Give 2 hrs before or 2 hrs after MVI, antacids, or other products containing sucralfate, magnesium, aluminum, iron, or zinc. May be taken without regard to meals., Indications: Chronic Suppression 175 (Given - Provider: Josephine Iglesias, JÚNIOR) 0631 (Given - Provider: Cassandra Lai, RN)1752 (Given - Provider: Farhana Soliman, RN) 0604 (Given - Provider: Sweetie Barnett, RN) flecainide (TAMBOCOR) tablet 50 mg 50 mg, oral, 2 times daily, First dose on Thu07/27/23 at 1215 1402 (Given - Provider: Josephine Iglesias, JÚNIOR)2117 (Given - Provider: Cassandra Lai, RN) 0846 (Given - Provider: Farhana Soliman, JÚNIOR)211 (Given - Provider: Sweetie Barnett, RN) 0906 (Given - Provider: Farhana Soliman, RN) fluticasone propionate (FLONASE) 50 mcg/actuation nasal spray 1 spray (CANCELED) 1 spray, each nostril, Daily, First dose on Thu07/27/23 at 1215 1215 (Not Given - Provider: Josephine Iglesias RN - Reason: Medication not available) 912 (Given - Provider: Farhana Soliman RN) wyinifnwlfb-wgjxuuphi-umo anter (TRELEGY ELLIPTA) 100-62.5-25 mcg inhaler 1 puff (CANCELED) 1 puff, inhalation, Daily (sales correspondence clerk), First dose (after last modification) on Thu07/28/23 at 0900, Rinse mouth with water after use. Do not swallow. 899 (Given - Provider: Rajinder Ferguson, GLASS VIAL FILLER) bxnkswjdxna-bsctcypud-pec anter (TRELEGY ELLIPTA) 200-62.5-25 mcg inhaler 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, inhalation, Daily, First dose on Thu07/29/23 at 0900, Rinse mouth with water after use. Do not swallow. 921 (Given - Provider: Farhana Soliman, JÚNIOR) insulin glargine (LANTUS, SEMGLEE) 100 unit/mL injection 20 Units 20 Units, subcutaneous, Nightly, First dose on Thu07/27/23 at 2100, Do not hold if NPO. Do not mix with other insulins, Indications: Diabetes Mellitus 2116 (Given - Provider: Cassandra Lai, JÚNIOR) 2113 (Given - Provider: Sweetie Barnett, JÚNIOR) insulin lispro (HumaLOG, ADMELOG) 100 unit/mL injection 0-10 Units 0-10 Units, subcutaneous, 3 times daily with meals, First dose on Thu07/27/23 at 1800, Blood glucose mg/dL: 149 or less: No insulin 150-199: add 2 unit 200-249: add 4 units 250-299: add 6 units 300-349: add 8 units and notify physician for adjustment of insulin orders. 350-399: add 10 units and notify physician for adjustment of insulin orders. Over 400: Notify physician for adjustment of insulin orders. Do NOT hold for NPO Status, Indications: Diabetes Mellitus 1756 (Not Given - Provider: Josephine Iglesias RN - Reason: Order parameters not met) 0835 (Not Given - Provider: Farhana Soliman RN - Reason: Contraindicated)1226 (Given - Provider: Farhana Soliman RN)1724 (Not Given - Provider: Farhana Soliman RN - Reason: Contraindicated) 0803 (Not Given - Provider: Farhana Soliman RN - Reason: Contraindicated)1253 (Given - Provider: Farhana Soliman RN) insulin lispro (HumaLOG, ADMELOG) 100 unit/mL injection 0-5 Units (CANCELED) 0-5 Units, subcutaneous, 3 times daily with meals, First dose on Thu07/27/23 at 1215, Blood glucose mg/dL: 149 or less: No insulin 150-199: add 1 unit 200-249: add 2 units 250-299: add 3 units 300-349: add 4 units and notify physician for adjustment of insulin orders. 350-399: add 5 units and notify physician for adjustment of insulin orders. Over 400: Notify physician for adjustment of insulin orders. Do NOT hold for NPO Status, Indications: Diabetes Mellitus 1402 (Given - Provider: Josephine Iglesias, JÚNIOR) insulin lispro (HumaLOG, ADMELOG) 100 unit/mL injection 0-5 Units 0-5 Units, subcutaneous, Nightly, First dose on Thu07/27/23 at 2100, Blood glucose mg/dL: 149 or less: No insulin 150-199: add 1 unit 200-249: add 2 units 250-299: add 3 units 300-349: add 4 units and notify physician for adjustment of insulin orders. 350-399: add 5 units and notify physician for adjustment of insulin orders. Over 400: Notify physician for adjustment of insulin orders. Do NOT hold for NPO Status, Indications: Diabetes Mellitus 2056 (Not Given - Provider: Cassandra Lai RN - Reason: Order parameters not met) 2112 (Given - Provider: Sweetie Barnett, JÚNIOR) levETIRAcetam (KEPPRA) 500 mg/100 mL in sodium chloride (premix) 500 mg (CANCELED) 500 mg, intravenous, Administer over 15 Minutes, Every 12 hours scheduled, First dose on Thu07/27/23 at 0840, Room temperature only 0907 (New Bag - Provider: Blake Bedoya, RN)0922 (Stopped - Provider: Blaek Bedoya, RN)211 (New Bag - Provider: Cassandra Lai RN) 0854 (New Bag - Provider: Farhana Soliman RN) levETIRAcetam (KEPPRA) tablet 500 mg 500 mg, oral, 2 times daily, First dose on Thu07/28/23 at 2100, For 11 doses, May mix with 120 mL of enteral nutrition formula or disperse crushed tablets (500 mg tablet strength studied) in 10 mL of water, shake for 5 minutes to dissolve, and administer immediately via enteral feeding tube 2111 (Given - Provider: Sweetie Barnett, JÚNIOR) 905 (Given - Provider: Farhana Soliman RN) levothyroxine (SYNTHROID) tablet 50 mcg 50 mcg, oral, Daily, First dose on Thu07/27/23 at 1215, Administer on an empty stomach, preferably 30 minutes before breakfast. Take 4 hours apart from antacids, iron and calcium products. Separate from tube feeds, if applicable. 1258 (Given - Provider: Josephine Iglesias RN) 0845 (Given - Provider: Farhana Soliman RN) 09 (Given - Provider: Farhana Soliman RN) lidocaine-EPINEPHrine (XYLOCAINE with EPI) 1 %-1:200,000 preservative free injection 20 mL (COMPLETED) 20 mL, infiltration, Once, On Thu07/27/23 at 0916, For 1 dose, Indications: Administration of Local Anesthesia 0938 (Given - Provider: Blake Bedoya RN - Comment: given to plastics resident for lac repair) metoprolol tartrate (LOPRESSOR) immediate release tablet 12.5 mg 12.5 mg, oral, 2 times daily, First dose on Thu07/27/23 at 1215 1259 (Given - Provider: Josephine Iglesias RN)2117 (Not Given - Provider: Cassandra Lai RN - Reason: Order parameters not met) 0846 (Given - Provider: Farhana Soliman, RN)2111 (Given - Provider: Sweetie Barnett, JÚNIOR) 09 (Given - Provider: Farhana Soliman, JÚNIOR) pantoprazole DR (PROTONIX) extended release tablet 40 mg 40 mg, oral, Daily, First dose on Thu07/27/23 at 1215, Do not crush, chew, cut, dissolve, open or otherwise manipulate tablet/capsule., Indications: Stress Ulcer Prophylaxis 1259 (Given - Provider: Josephine Iglesias, JÚNIOR) 0847 (Given - Provider: Farhana Soliman RN) 0907 (Given - Provider: Farhana Soliman, RN) pregabalin (LYRICA) capsule 150 mg 150 mg, oral, 3 times daily, First dose (after last modification) on Thu07/28/23 at 1600 1511 (Given - Provider: Farhana Soliman, RN)2111 (Given - Provider: Sweetie Barnett, RN) 09 (Given - Provider: Farhana Soliman, JÚNIOR) pregabalin (LYRICA) capsule 75 mg (CANCELED) 75 mg, oral, 3 times daily, First dose on Thu07/27/23 at 1600 1756 (Given - Provider: Josephine Iglesias, JÚNIOR)2116 (Given - Provider: Cassandra Lai RN) 0846 (Given - Provider: Farhana Soliman, JÚNIOR) senna-docusate (PERICOLACE) 8.6-50 mg per tablet 1 tablet 1 tablet, oral, 2 times daily, First dose on Thu07/27/23 at 1215, Hold for diarrhea., Indications: constipation 1258 (Given - Provider: Josephine Iglesias, JÚNIOR)2117 (Given - Provider: Cassandra Lai, RN) 0846 (Given - Provider: Farhana Soliman, JÚNIOR)2111 (Given - Provider: Sweetie Barnett, JÚNIOR) 0906 (Given - Provider: Farhana Soliman, JÚNIOR) sodium chloride 0.9% flush 0.5-20 mL 0.5-20 mL, intra-catheter, Every 8 hours scheduled, First dose on Thu07/27/23 at 1400, Flush volume based on line type and size. 1405 (Given - Provider: Josephine Iglesias, JÚNIOR)2118 (Given - Provider: Cassadnra Lai, RN) 0631 (Given - Provider: Cassandra Lai, RN)151 (Given - Provider: Farhana Soliman, JÚNIOR)211 (Given - Provider: Sweetie Barnett, JÚNIOR) 0605 (Given - Provider: Sweetie Barnett, RN) sodium chloride 0.9% irrigation 1,000 mL (COMPLETED) 1,000 mL, irrigation, Once, On Thu07/27/23 at 0916, For 1 dose 0938 (Given - Provider: Blake Bedoya JÚNIOR - Comment: given to MD) tamsulosin (FLOMAX) extended release capsule 0.4 mg (CANCELED) 0.4 mg, oral, Daily with dinner, First dose on Thu07/27/23 at 1800, Do not crush, chew, cut, dissolve, open or otherwise manipulate tablet/capsule. 1754 (Given - Provider: Josephine Iglesias, JÚNIOR) tamsulosin (FLOMAX) extended release capsule 0.8 mg 0.8 mg, oral, Daily with dinner, First dose (after last modification) on Thu07/28/23 at 1800, Do not crush, chew, cut, dissolve, open or otherwise manipulate tablet/capsule. 1751 (Given - Provider: Farhana Soliman RN) PRN Medication Order 07/27/2023 07/28/2023 07/29/2023 albuterol HFA (PROVENTIL HFA,VENTOLIN HFA,PROAIR HFA) 90 mcg/actuation inhaler 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, inhalation, Every 6 hours PRN (sales correspondence clerk), wheezing, Starting on Thu07/27/23 at 1134 Carrier Fluids for Secondary Infusion - 0.9% Sodium Chloride 30 mL, intravenous, As needed, For priming tubing and/or flushing, Starting on Thu07/27/23 at 1135, 0-250 ml/hr to flush line after IV infusions when no maintenance IV ordered. Infuse 30mL at the same rate as the secondary infusion. Run as primary IV, not intended for KVO. dextrose (D10W) 10% bolus 250 mL(Linked Group 1) 250 mL, intravenous, at 1,000 mL/hr, Administer over 15 Minutes, Every 15 min PRN, blood glucose less than 70 mg/dL and UNABLE to swallow/take PO glucose/juice., Starting on Thu07/27/23 at 1135, After treatment for hypoglycemia, recheck BG followed by treatment every 15 minutes until the BG is greater than 100 mg/dL. Then check BG 1 hour post treatment. If BG is less than 100 mg/dL, repeat Q15 minute BG checks and treatment. Call MD for each episode of hypoglycemia., Indications: hypoglycemic disorder dextrose gel in packet 15 g(Linked Group 1) 15 g, oral, Every 15 min PRN, low blood sugar, blood glucose less than 70 mg/dL, Starting on Thu07/27/23 at 1135, If patient is alert and able to eat/drink, give 15 gm glucose or one juice (4 fluid ounces) NOT ORANGE JUICE. After treatment for hypoglycemia, recheck BG followed by treatment every 15 minutes until the BG is greater than 100 mg/dL. Then check BG 1 hour post-treatment. If BG is less than 100 mg/dL, repeat Q15 minute BG checks and treatment. Call MD for each episode of hypoglycemia., Indications: hypoglycemic disorder glucagon injection 1 mg 1 mg, intramuscular, Every 30 min PRN, low blood sugar, blood glucose less than 70 mg/dL AND no IV access AND unable to take PO glucose/juice., Starting on Thu07/27/23 at 1135, After Glucagon is administered, position patient on side if possible to avoid aspiration. Obtain IV access. Follow glucagon treatment with glucose treatment or IV dextrose. After treatment for hypoglycemia, recheck BG followed by treatment every 15 minutes until the BG is greater than 100 mg/dL. Then check BG 1 hour post treatment. If BG is less than 100 mg/dL, repeat Q15 minute BG checks and treatment. Call MD for each episode of hypoglycemia. Reconstitute 1 mg vial with 1 mL SWFI. Use immediately following reconstitution. oxyCODONE (ROXICODONE) tablet 5 mg 5 mg, oral, Every 4 hours PRN, 1st line for pain, Starting on Thu07/27/23 at 1135, Indications: Pain 0935 (Given - Provid er: Farhana Soliman RN) ramelteon (ROZEREM) tablet 8 mg (COMPLETED) 8 mg, oral, Once as needed, sleep, Starting on Thu07/28/23 at 2312, For 1 dose, Indications: Sleep-Onset Insomnia 2314 (Given - Provider: Sweetie Barnett RN) sodium chloride 0.9% flush 0.5-20 mL 0.5-20 mL, intra-catheter, As needed, line care, Starting on Thu07/27/23 at 1135, Flush volume based on line type and size. Flush before and after each use. Linked Groups Order Group 1: dextrose gel in packet 15 gJump to med 15 g, oral, Every 15 min PRN, low blood sugar, blood glucose less than 70 mg/dL, Starting on Thu07/27/23 at 1135, If patient is alert and able to eat/drink, give 15 gm glucose or one juice (4 fluid ounces) NOT ORANGE JUICE. After treatment for hypoglycemia, recheck BG followed by treatment every 15 minutes until the BG is greater than 100 mg/dL. Then check BG 1 hour post-treatment. If BG is less than 100 mg/dL, repeat Q15 minute BG checks and treatment. Call MD for each episode of hypoglycemia., Indications: hypoglycemic disorder Or dextrose (D10W) 10% bolus 250 mLJump to med 250 mL, intravenous, at 1,000 mL/hr, Administer over 15 Minutes, Every 15 min PRN, blood glucose less than 70 mg/dL and UNABLE to swallow/take PO glucose/juice., Starting on Thu07/27/23 at 1135, After treatment for hypoglycemia, recheck BG followed by treatment every 15 minutes until the BG is greater than 100 mg/dL. Then check BG 1 hour post treatment. If BG is less than 100 mg/dL, repeat Q15 minute BG checks and treatment. Call MD for each episode of hypoglycemia., Indications: hypoglycemic disorder documented in this encounter Orders Medications Ordered That Dell ht Not Have Been Administered Count Last Ordered Date First Ordered Date albuterol 2.5 mg/0.5 mL nebu lizer solution - ADS Override Pull 1 07/28/2023 albuterol HFA (PROVENTIL HFA ,VENTOLIN HFA,PROAIR HFA) 90 mcg/actuation inhaler 1 puff 1 07/27/2023 Carrier Fluids for Secondary Infusion - 0.9% Sodium Chloride 1 07/27/2023 dextrose (D10W) 10% bolus 250 mL 1 07/27/20 dextrose gel in packet 15 g 1 07/27/2023 ucsiwnrofei-akfkvxmtx-cbozsq er (TRELEGY ELLIPTA) 100-62.5-25 mcg inhaler 1 puff 1 07/27/2023 glucagon injection 1 mg 1 07/27/2023 insulin lispro (HumaLOG, ADM ELOG) 100 unit/mL injection 0-4 Units 1 07/27/2023 sodium chloride 0.9% flush 0.5-20 mL 1 07/04 Lab Orders Without Results Count Last Ordered D ate First Ordered Date POCT GLUCOSE DEVICE 11 07/29/2023 07/27/20 EKG Orders Without Results Count Last Ordered D ate First Ordered Date ECG 12-LEAD 1 07/27/2023 Diet Count Last Ordered Date First Orde red Date ADULT DISCHARGE DIET 1 07/29/2023 Nursing Count Last Ordered Date First Orde red Date DISCHARGE ACTIVITY 3 07/29/2023 3 DISCHARGE DRESSING 6 07/29/2023 3 DISCHARGE INSTRUCTIONS 3 07/29/202307/28 PATIENT MAY SHOWER 1 07/29/2023 WEIGHT BEARING STATUS 1 07/29/2023 DISCHARGE CALL PROVIDER 6 07/28/2023 FOLLOW UP WITH DEPARTMENT 3 07/28/2023 FOLLOW UP WITH ESTABLISHED PROVIDER 1 07/28 NEUROVASCULAR CHECKS 1 07/27/2023 NOTIFY PROVIDER (SPECIFY) 1 07/27/2023 NURSING SWALLOW ASSESSMENT 1 07/27/2023 POSITIONING INSTRUCTION 1 07/27/2023 WEIGH PATIENT 1 07/27/2023 Consult Count Last Ordered Date First Orde red Date IP CONSULT TO NEUROSURGERY 1 07/27/2023 IP CONSULT TO PLASTIC SURGERY 1 07/27/2023 Admission Count Last Ordered Date First Orde red Date ADMIT TO INPATIENT 1 07/27/2023 Discharge Count Last Ordered Date First Orde red Date DISCHARGE PATIENT 1 07/29/2023 CORE MEASURES Count Last Ordered Date First Ord ered Date REASON FOR NO VTE PROPHYLAXI S - HOSPITAL ADMISSION - MEDICATIONS 1 07/27/2023 documented in this encounter Care Teams Mother Helper Relationship Specialty Start Date End Date Alexa Waldrop MD PCP - General Family Medicine 08/05/22 documented as of this encounter
--- OUTSIDE RECORDS SUMMARY | 2024-07-24 00:10 | XMS_ITS | Encounter Summary ---
Author Organization [facility] Address [address] [place] [address] Care Team Providers Care Application Technical Designer Name Role Phone Liset Haynes MD Primary Care Provider [phone] Encounter Details Date Type Department Care Team (Late st Contact Info) Description 12/25/[address] 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 Rx sent to pharmacy * Telephone Encounter - Letty Slaughter MA - 12/25/2022 11:[address] Rojas, Are you taking over flecainide rx? Please advise? Thank you * Telephone Encounter - Laura Doty - 12/25/2022 9:19 AM CDT Pt spouse calling in requesting refill for flecainide 50 mg to be sent [facility] 90 day supply Contact [phone] documented in this encounter Plan of Treatment Not on file documented as of this encounter Visit Diagnoses Not on filedocumented in this encounter Discontinued Medications Medication Sig Discontinue Reason Start Date End Da te flecainide (TAMBOCOR) 50 mg tablet TAKE 1 TABLET BY MOUTH TWICE A DAY Reorder 03/28/2022 12/25/2022 documented as of this encounter Care Teams Application Technical Designer Relationship Specialty Start Date End Date Liset Haynes MD PCP - General Family Medicine 08/05/22 documented as of this encounter
--- OUTSIDE RECORDS SUMMARY | 2024-07-24 00:10 | XMS_ITS | Encounter Summary ---
Author Organization [facility] Address [address] [place] [address] Care Team Providers Care Housekeeper Child Care Name Role Phone Liset Haynes MD Primary Care Provider [phone] Encounter Details Date Type Department Care Team (Late st Contact Info) Description 07/06/2023 Telephone [facility] [address] [address] Malia Chang RN Social History Tobacco Use Types Packs/Day Years Used Date Smoking Tobacco: Former Smokeless Tobacco: Never Tobacco Cessation:Counseling Given: Not Answered Alcohol Use Standard Drinks/Week Comments No 0 (1 standard drink = 0.6 oz pur e alcohol) Sex and Gender Information Value Date Recorded Sex Assigned at Not on file Legal Sex Male 3:18 AM ASSISTANT MAINTENANCE MANAGER Gender Identity Not on file Sexual Orientation Not on file documented as of this encounter Miscellaneous Notes * Telephone Encounter - Malia Chang RN - 07/06/2023 2:25 PM CST Instructions given and information mailed to patient for esophageal manometry on 09/01/23 at 0930. STANT MAINTENANCE MANAGER documented in this encounter Plan of Treatment Not on file documented as of this encounter Visit Diagnoses Not on filedocumented in this encounter Discontinued Medications Medication Sig Discontinue Reason Start Date End Da te furosemide (LASIX) 20 mg tablet take 1 tablet by oral route everyday and as needed 10/21/2016 07/06/2023 benzonatate (TESSALON) 200 mg capsule 08/02/2020 07/06/2023 documented as of this encounter Historical Medications * This list may reflect changes made after this encounter. triamcinolone (KENALOG) 0.1 % cream Apply topically 2 (two) times a day 05/26/2023 omeprazole (PriLOSEC) 20 mg capsule Take 1 capsule (20 mg total) by mouth daily 04/25/2023 Farxiga 5 mg tablet Take by mouth daily OneTouch Ultra Test strip USE TO TEST BLOOD SUGAR THREE TIMES DAILY 04/20/2023 azelastine (ASTELIN) 137 mcg (0.1 %) nasal spray ADMINISTER 2 SPRAYS INTO EACH NOSTRIL EVERY 12 HOURS 06/26/2023 albuterol HFA (PROVENTIL HFA,VENTOLIN HFA,PROAIR HFA) 90 mcg/actuation inhaler INHALE TWO PUFFS BY MOUTH EVERY 2-4 HOURS NEEDED FOR SHORTNESS OF BREATH OR WHEEZING 05/26/2023 HYDROcodone-acet aminophen (NORCO) 7.5-325 mg per tablet Take by mouth every 6 (six) hours as needed 04/15/2023 3 fluticasone propionate (FLONASE) 50 mcg/actuation nasal spray ADMINISTER 1 SPRAY INTO EACH NOSTRIL EVERY 12 HOURS 06/29/2023 3 diclofenac sodium (VOLTAREN) 1 % gel APPLY 4 GRAMS TOPICALLY FOUR TIMES DAILY - APPLY TO LEFT SHOULDER AND ARM DAILY UP TO 4 TIMES A DAY 06/09/2023 3 added in this encounter Care Teams Housekeeper Child Care Relationship Specialty Start Date End Date Liset Haynes MD PCP - General Family Medicine 08/05/22 documented as of this encounter
--- OUTSIDE RECORDS SUMMARY | 2024-07-24 00:10 | XMS_ITS | Encounter Summary ---
Author Organization [facility] Address [address] [place] [address] Care Team Providers Care Machine Tester Name Role Phone Jessica Arroyo MD Primary Care Provider [phone] Reason for Visit * Reason Comments Test Results Encounter Details Date Type Department Care Team (Late st Contact Info) Description 11/14/2020 Telephone [facility] Cardiology [address] [place] [address] Norberto Cordero, DO [address] [facility] [address] [place] [address] Test Results Social History Tobacco Use Types Packs/Day Years Used Date Smoking Tobacco: Former Smokeless Tobacco: Never Alcohol Use Standard Drinks/Week Comments No 0 (1 standard drink = 0.6 oz pur e alcohol) Sex and Gender Information Value Date Recorded Sex Assigned at Not on file Legal Sex Male 3:18 AM BUTTER LIQUEFIER Gender Identity Not on file Sexual Orientation Not on file documented as of this encounter Miscellaneous Notes * Telephone Encounter - Tracy Abernathy - 11/14/2020 10:21 AM CDT Called and relayed Lipid results per Dr. Cordero, pt verbalized understanding. * Telephone Encounter - Tracy Abernathy - 11/14/2020 10:20 AM CDT ----- Message from Norberto Cordero DO sent at 11/14/2020 9:44 AM CDT ----- Geovanny good documented in this encounter Plan of Treatment Not on file documented as of this encounter Visit Diagnoses Not on filedocumented in this encounter Care Teams Machine Tester Relationship Specialty Start Date End Date Jessica Arroyo MD PCP - General Family Practice 08/11/18 08/04/22 documented as of this encounter
--- OUTSIDE RECORDS SUMMARY | 2024-07-24 00:10 | XMS_ITS | Encounter Summary ---
Author Organization [facility] Address [address] [place] [address] Care Team Providers Care Canary Raiser Name Role Phone Jessica Arroyo MD Primary Care Provider [phone] Reason for Visit * Reason Comments Atrial Fibrillation Hyperlipidemia Encounter Details Date Type Department Care Team (Late st Contact Info) Description 08/06/2021 11:30 AM COSTUME TECHNICIAN Office Visit [facility] Cardiology [address] [place] [address] Norberto Cordero, [address] [place] [address] [address] [place] [address] Paroxysmal atrial fibrillation (CMS/HCC) (HCC) (Primary Dx); Hyperlipidemia associated with type 2 diabetes mellitus (HCC); Primary hypertension Social History Tobacco Use Types Packs/Day Years Used Date Smoking Tobacco: Former Smokeless Tobacco: Never Alcohol Use Standard Drinks/Week Comments No 0 (1 standard drink = 0.6 oz pur e alcohol) Sex and Gender Information Value Date Recorded Sex Assigned at Not on file Legal Sex Male 3:18 AM COSTUME TECHNICIAN Gender Identity Not on file Sexual Orientation Not on file documented as of this encounter Last Filed Vital Signs Vital Sign Reading Time Taken Comments Blood Pressure 126/78 08/06/2021 12:14 PM COSTUME TECHNICIAN Pulse 60 08/06/2021 12:14 PM COSTUME TECHNICIAN Temperature - - Respiratory Rate - - Oxygen Saturation 95% 08/06/2021 12:14 PM COSTUME TECHNICIAN Inhaled Oxygen Concentration - - Weight 165.6 kg (365 lb) 08/06/2021 12:14 PM COSTUME TECHNICIAN Height 188 cm (6' 2 ) 08/06/2021 12:14 PM COSTUME TECHNICIAN Body Mass Index 46.86 08/06/2021 12:14 PM COSTUME TECHNICIAN documented in this encounter Progress Notes * Norberto Cordero DO - 08/06/2021 11:30 AM CST Patient Name: Neal Amaro Provider:Norberto Cordero DO : 1940 Date of Service: 08/06/2021 Referring: Consuelo CHIEF COMPLAINT: AF Neal presents today for follow-up evaluation. He denies CP or dyspnea; he has had no palpitationssince Jun 22 HISTORY OF PRESENT ILLNESS: Mr Neal Amaro is a 80 year old male who has a history [...] a VQ scan was positive for pulmonary emboli as well as a venous Doppler positive in the left popliteal region for DVT .In the summer, he developed an acute blood loss anemia and was taken off the Xarelto tried on Pradaxa and then warfarin. His hemoglobin was 14.9 Jun 01, 2018. He would like to get off his anticoagulation med. A Holter monitor in January of 2017 was negative for any episodes of atrial fibrillation. He was hospitalized in [facility] in [facility] and was COVID positive and noted to be in atrial fibrillation in [address] August 2020 EKG demonstrated sinus rhythm REVIEW OF SYSTEMS: General: No fever, chills, [...] past medical history of Atrial fibrillation (CMS/HCC) (HCC) and Hyperlipidemia. He has no past surgical history on file. His reports that he has quit smoking. He has never used smokeless tobacco. He reports that he does not drink alcohol. HisFamily history is unknown by patient. Current Outpatient Medications: ??? acetaminophen 500 mg capsule, Take 2 capsules (1,000 mg total) by mouth every 6 (six) hours, Disp: 30 tablet, Rfl: ??? atorvastatin (LIPITOR) 40 mg tablet, TAKE 1 TABLET BY MOUTH EVERY DAY, Disp: 90 tablet, Rfl: 3 ??? baclofen (LIORESAL) 10 mg tablet, take 1 tablet by oral route 3 times every day, Disp: 0, Rfl: 0 ??? benzonatate (TESSALON) 200 mg capsule, , Disp: , Rfl: ??? cholecalciferol (VITAMIN D3) 1,000 unit capsule, take 1 Capsule by Oral route 2 times every day, Disp: 0, Rfl: 0 ??? doxycycline (doxycycline hyclate) 100 mg capsule, take 1 capsule by oral route 2 times every day, Disp: 0, Rfl: 0 ??? flecainide (TAMBOCOR) 50 mg tablet, TAKE ONE TABLET BY MOUTH TWICE A DAY, Disp: 180 tablet, Rfl: 1 ??? furosemide (LASIX) 20 mg tablet, take [...] tab bid, Disp: 90, Rfl: 3 ??? pregabalin (LYRICA) 75 mg capsule, take 1 capsule by oral route 3 times every day, Disp: 0, Rfl: 0 ??? tamsulosin (FLOMAX) 0.4 mg capsule,extended release 24hr, take 1 capsule by oral route every day 1/2 hour following the same meal each day, Disp: 0, Rfl: 0 ??? Trelegy Ellipta 100-62.5-25 mcg inhaler, USE 1 INHALATION DAILY, Disp: , Rfl: ??? warfarin (COUMADIN) 3 mg tablet, Take 1 tablet (3 mg total) by mouth daily, Disp: , Rfl: Patient is allergic to adhesive tape-silicones. PHYSICAL EXAM: BP 126/78 Pulse 60 Ht 188 cm (6' 2 ) Wt (!) 165.6 kg (365 lb) SpO2 95% BMI 46.86 kg/m?? General: Well appearing, No pain or [...] Diagnoses and all orders for this visit: Hyperlipidemia associated with type 2 diabetes mellitus (HCC) (Primary) Assessment & Plan: Cholesterol <200 mg/dL 142 137 R, CM 116??Low?? R 118 R, CM HDL > OR = 40 mg/dL 46 41 R, CM 34??Low?? R 27??Low?? R, CM Triglycerides <150 mg/dL 84 83 R, CM 80 R 117 R, CM LDL mg/dL (calc) 80 He remains at goal on lipitor 40 mg so will continue Paroxysmal atrial fibrillation (CMS/HCC) (HCC) Assessment & Plan: He has had no recurrences since last year; echo normal, So I made no changes He is protected with Warfarin, on tambocor and metoprolol which I would continue Primary hypertension Assessment & Plan: His BP remains at goal on the BB, so will continue UME TECHNICIAN documented in this encounter Miscellaneous Notes * Assessment & Plan Note - Norberto Cordero DO - 08/06/2021 12:26 PM COSTUME TECHNICIAN Associated Problem(s): Hypertension His BP remains at goal on the BB, so will continue UME TECHNICIAN * Assessment & Plan Note - Norberto Cordero DO - 08/06/2021 12:23 PM COSTUME TECHNICIAN Associated Problem(s): Paroxysmal atrial fibrillation (CMS/HCC) (HCC) He has had no recurrences since last year; echo normal, So I made no changes He is protected with Warfarin, on tambocor and metoprolol which I would continue UME TECHNICIAN * Assessment & Plan Note - Norberto Cordero DO - 08/06/2021 12:23 PM COSTUME TECHNICIAN Associated Problem(s): Hyperlipidemia associated with type 2 diabetes mellitus (HCC) Cholesterol <200 mg/dL 142 137 R, CM 116??Low?? R 118 R, CM HDL > OR = 40 mg/dL 46 41 R, CM 34??Low?? R 27??Low?? R, CM Triglycerides <150 mg/dL 84 83 R, CM 80 R 117 R, CM LDL mg/dL (calc) 80 He remains at goal on lipitor 40 mg so will continue UME TECHNICIAN documented in this encounter Plan of Treatment Not on file documented as of this encounter Visit Diagnoses Diagnosis Paroxysmal atrial fibrillation (CMS/HCC) (HCC)- Primary Atrial fibrillation Hyperlipidemia associated with type 2 diabetes mellitus (HCC) Primary hypertension Unspecified essential hypertension documented in this encounter Discontinued Medications Medication Sig Discontinue Reason Start Date End Da te albuterol HFA (PROAIR HFA) 90 mcg/actuation inhaler Inhale 2 puffs every 6 (six) hours as needed for wheezing Therapy completed 03/16/2019 08/06/2021 documented as of this encounter Care Teams Canary Raiser Relationship Specialty Start Date End Date Jessica Arroyo MD PCP - General Family Practice 08/11/18 08/04/22 documented as of this encounter
--- OUTSIDE RECORDS SUMMARY | 2024-07-24 00:10 | XMS_ITS | Encounter Summary ---
Author Organization [facility] Address [address] [place] [address] Care Team Providers Care Radiology Teacher Name Role Phone Jessica Arroyo MD Primary Care Provider +1- [phone] Reason for Visit * Reason Comments Atrial Fibrillation Hypertension Encounter Details Date Type Department Care Team (Late st Contact Info) Description 08/15/2020 12:00 PM IRONER OR PRESSER Office Visit [facility] [address] [place] [address] Norberto Cordero, [address] [place] [address] Atrial fibrillation, currently in sinus rhythm (Primary Dx); Paroxysmal atrial fibrillation (CMS/HCC); Essential hypertension; Hyperlipidemia associated with type 2 diabetes mellitus (CMS/HCC) Social History Tobacco Use Types Packs/Day Years Used Date Smoking Tobacco: Former Smokeless Tobacco: Never Alcohol Use Standard Drinks/Week Comments No 0 (1 standard drink = 0.6 oz pur e alcohol) Sex and Gender Information Value Date Recorded Sex Assigned at Not on file Legal Sex Male 3:18 AM IRONER OR PRESSER Gender Identity Not on file Sexual Orientation Not on file documented as of this encounter Last Filed Vital Signs Vital Sign Reading Time Taken Comments Blood Pressure 122/78 08/15/2020 12:05 PM IRONER OR PRESSER Pulse 58 08/15/2020 12:05 PM IRONER OR PRESSER Temperature - - Respiratory Rate - - Oxygen Saturation 97% 08/15/2020 12:05 PM IRONER OR PRESSER Inhaled Oxygen Concentration - - Weight 165.6 kg (365 lb) 08/15/2020 12:05 PM IRONER OR PRESSER Height 188 cm (6' 2 ) 08/15/2020 12:05 PM IRONER OR PRESSER Body Mass Index 46.86 08/15/2020 12:05 PM IRONER OR PRESSER documented in this encounter Ordered Prescriptions Prescription Sig Dispense Quantity Refills Last Filled Start Date End Date atorvastatin (LIPITOR) 40 mg tablet Take 1 tablet (40 mg total) by mouth daily 90 tablet 3 08/15/2020 08/01/2021 documented in this encounter Progress Notes * Norberto Cordero, - 08/15/2020 12:00 PM CST Patient Name: Neal Amaro Provider:Norberto Cordero DO : 1940 Date of Service: 08/15/2020 Referring: Manan CHIEF COMPLAINT: Atrial Fibrillation and Hypertension Neal presents today for follow-up evaluation. In June he developed a fever and some lightheadedness and ultimately want to put [facility] in [place] where he was found to be COVID positive and he was noted to be in atrial fibrillation. The echocardiogram report appeared unchanged from 2019 with normal LV function. Since discharge she is been doing well but he was sent home on oxygen. His resting O2 saturations are 97% when he exercises a fall to 88%. He does have an appoint with pulmonary in mid September; he has had no chest pain and generally feels well now. He was told he hadpneumonia but I do not have that component of his record to review HISTORY OF PRESENT ILLNESS: Mr Neal Amaro is a 79 year old male who has a history [...] for wheezing, Disp: 1 Inhaler, Rfl: ??? baclofen (LIORESAL) 10 mg tablet, take [...] total) by mouth daily, Disp: , Rfl: ??? atorvastatin (LIPITOR) 40 mg tablet, Take 1 tablet (40 mg total) by mouth daily, Disp: 90 tablet, Rfl: 3 Patient is allergic to adhesive tape-silicones. PHYSICAL EXAM: BP 122/78 Pulse 58 Ht 188 cm (6' 2 ) Wt (!) 165.6 kg (365 lb) SpO2 97% BMI 46.86 kg/m?? General: Well appearing, No [...] Atrial fibrillation, currently in sinus rhythm (Primary) - ECG 12 lead Paroxysmal atrial fibrillation ([facility]/HCC) Assessment & Plan: He has had recurrent episodes of atrial [...] his last Holter failed to demonstrate atrial fibrillation.An EKG today demonstrated normal sinus rhythm. He is protected with warfarin so I made no changes in his program, as was probably the acute exacerbation with COVID infection that provoked at this time. He is on metoprolol and tambocor; Dr Hinkle follows the INR Essential hypertension Assessment & Plan: His blood pressure is at goal Hyperlipidemia associated with type 2 diabetes mellitus (CMS/HCC) Assessment & Plan: He is on lipitor 20 mg= TC 151/HDL 41/ TG 105/ LDL 89 He has been averaging in the 80 range the past 3 years so am going to the 40 mg dosing to get it down below 70 as he has no sx on the 20 Orders: - POCT lipid panel Other orders - atorvastatin (LIPITOR) 40 mg tablet; Take 1 tablet (40 mg total) by mouth daily ER OR PRESSER documented in this encounter Miscellaneous Notes * Assessment & Plan Note - Norberto Cordero DO - 08/15/2020 12:34 PM IRONER OR PRESSER Associated Problem(s): Hyperlipidemia associated with type 2 diabetes mellitus (HCC) He is on lipitor 20 mg= TC 151/HDL 41/ TG 105/ LDL 89 He has been averaging in the 80 range the past 3 years so am going to the 40 mg dosing to get it down below 70 as he has no sx on the 20 ER OR PRESSER ER OR PRESSER ER OR PRESSER * Assessment & Plan Note - Norberto Cordero, - 08/15/2020 12:34 PM IRONER OR PRESSER Associated Problem(s): Hypertension His blood pressure is at goal ER OR PRESSER * Assessment & Plan Note - Norberto Cordero DO - 08/15/2020 12:31 PM IRONER OR PRESSER Associated Problem(s): Paroxysmal atrial fibrillation (CMS/HCC) (HCC) He has had recurrent episodes of atrial [...] his last Holter failed to demonstrate atrial fibrillation.An EKG today demonstrated normal sinus rhythm. He is protected with warfarin so I made no changes in his program, as was probably the acute exacerbation with COVID infection that provoked at this time. He is on metoprolol and tambocor; Dr Hinkle follows the INR ER OR PRESSER ER OR PRESSER ER OR PRESSER documented in this encounter Plan of Treatment Not on file documented as of this encounter Procedures Procedure Name Priority Date/Time Associated Diagnosis Comments POCT LIPID PANEL Routine 08/15/2020 12:5 5 PM IRONER OR PRESSER Hyperlipidemia associated with type 2 diabetes mellitus (CMS/HCC) ECG 12-LEAD Routine 08/15/2020 Atrial fibrillation, currently in sinus rhythm documented in this encounter Results * POCT lipid panel (08/15/2020 12:55 PM IRONER OR PRESSER) Cholesterol, POC 151 mg/dL HDL, POC 41 mg/dL Triglycerides, POC 105 mg/dL LDL Cholesterol POC 89 mg/dL Chol/HDL Ratio, POC 3.7 Non-HDL Cholesterol, POC 110 mg/dL Capillary blood 08/15/2020 1 2:55 PM IRONER OR PRESSER us Norberto Cordero DO POINT OF CARE TEST ORDERAB LES Final Result * ECG 12 lead (08/15/2020) us Norberto Cordero DO ECG ORDERABLES Final Resu lt documented in this encounter Visit Diagnoses Diagnosis Atrial fibrillation, currently in sinus rhythm- Primary Paroxysmal atrial fibrillation (CMS/HCC) (HCC) Atrial fibrillation Essential hypertension Unspecified essential hypertension Hyperlipidemia associated with type 2 diabetes mellitus (HCC) documented in this encounter Discontinued Medications Medication Sig Discontinue Reason Start Date End Da te flecainide (TAMBOCOR) 50 mg tabletIndications:Paroxys mal atrial fibrillation (CMS/HCC) (HCC) Take 1 tablet (50 mg total) by mouth 2 (two) times a day. Therapy completed 01/27/2018 08/15/2020 flecainide (TAMBOCOR) 50 mg tablet TAKE ONE TABLET BY MOUTH TWICE A DAY Therapy completed 09/26/2019 08/15/2020 fluticasone furoate-vilanterol (BREO ELLIPTA) 100-25 mcg/dose diskus inhaler Inhale 1 puff daily Rinse mouth with water after use. Do not swallow. Therapy completed 08/15/2020 omeprazole (PriLOSEC) 20 mg capsule Take 40 mg by mouth daily. Therapy completed 08/15/2020 atorvastatin (LIPITOR) 20 mg tablet take 1 tablet by oral route every day Dose adjustment 04/21/2016 08/15/2020 documented as of this encounter Historical Medications * This list may reflect changes made after this encounter. Gina Talavera 100-62.5-25 mcg inhaler USE 1 INHALATION DAILY 07/26/2020 3 benzonatate (TESSALON) 200 mg capsule 08/02/2020 3 added in this encounter Orders Lab Orders Without Results Count Last Ordered D ate First Ordered Date LIPID PANEL 1 08/15/2020 documented in this encounter Care Teams Radiology Teacher Relationship Specialty Start Date End Date Jessica Arroyo MD PCP - General Family Practice 08/11/18 08/04/22 documented as of this encounter
--- OUTSIDE RECORDS SUMMARY | 2024-07-24 00:10 | XMS_ITS | Encounter Summary ---
Author Organization [facility] Address [address] [place] [address] Care Team Providers Care Internal Specialist Name Role Phone Liset Haynes MD Primary Care Provider Encounter Details Date Type Department Care Team ([facility] st Contact Info) Description 09/21/2023 Telephone [facility] Cardiology [address] [facility] [address] [facility] [address] [place] [id number] Collin Rojas MD [address] [facility] [address] [place] [address] Social History Tobacco Use Types [...] on file Legal Sex Male 3:18 AM GOVERNMENT SERVICES PROFESSIONAL Gender Identity Not on file Sexual Orientation Not on file documented as of this encounter Ordered Prescriptions Prescription Sig Dispense Quantity Refills Last Filled Start Date End Date flecainide (TAMBOCOR) 50 mg tablet Take 1 tablet (50 mg total) by mouth 2 (two) times a day 180 tablet 09/21/2023 12/17/2023 documented in this encounter Miscellaneous Notes * Telephone Encounter - Ciera Guerrero - 09/21/2023 2:30 PM CST Pt requesting refill for flecainide (TAMBOCOR) 50 mg tablet with 90 day supply be sent to [facility]. Contact:[phone] RNMENT SERVICES PROFESSIONAL documented in this encounter Plan of Treatment Not on file documented as of this encounter Visit Diagnoses Not on filedocumented in this encounter Discontinued Medications Medication Sig Discontinue Reason Start Date End Da te flecainide (TAMBOCOR) 50 mg tablet TAKE 1 TABLET BY MOUTH TWICE A DAY Reorder 06/26/2023 09/21/2023 documented as of this encounter Care Teams Internal Specialist Relationship Specialty Start Date End Date Liset Haynes MD PCP - General Family Medicine 08/05/22 documented as of this encounter
--- OUTSIDE RECORDS SUMMARY | 2024-07-24 00:11 | XMS_ITS | Encounter Summary ---
Author Organization [facility] Care Team Providers Care Miter Saw Operator Name Role Phone Jessica Arroyo MD Primary Care Provider +1- [phone] Encounter Details Date Type Department Care Team (Latest Contact Info) Description 03/11/2019 Travel Social History Tobacco Use Types Packs/Day Years Used Date Smoking Tobacco: Former Smokeless Tobacco: Never Alcohol Use Standard Drinks/Week Comments No 0 (1 standard drink = 0.6 oz pur e alcohol) Sex and Gender Information Value Date Recorded Sex Assigned at Not on file Legal Sex Male 3:18 AM MEDICAL BILLING AND CODING SPECIALIST Gender Identity Not on file Sexual Orientation Not on file documented as of this encounter Plan of Treatment Not on file documented as of this encounter Visit Diagnoses Not on filedocumented in this encounter Care Teams Miter Saw Operator Relationship Specialty Start Date End Date Jessica Arroyo MD PCP - General Family Practice 08/11/18 08/04/22 documented as of this encounter
--- OUTSIDE RECORDS SUMMARY | 2024-07-24 00:11 | XMS_ITS | Encounter Summary ---
Author Organization [facility] Address [address] [place] [address] Care Team Providers Care Sack Maker Name Role Phone Christopher Diop MD Primary Care Provider +1- [phone] Encounter Details Date Type Department Care Team (Late st Contact Info) Description 02/10/2017 11:45 AM CDT Office Visit [facility] 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 Gender Identity Not on file Sexual Orientation Not on file documented as of this encounter Last Filed Vital Signs Vital Sign Reading Time Taken Comments Blood Pressure - - Pulse 66 02/10/2017 12:10 PM CDT Temperature - - Respiratory Rate 22 02/10/2017 12:10 PM CDT Oxygen Saturation 100% 02/10/2017 12:10 PM CDT Inhaled Oxygen Concentration - - Weight 158.8 kg (350 lb) 02/10/2017 12:10 PM CDT Height 188 cm (6' 2 ) 02/10/2017 12:10 PM CDT Body Mass Index 44.94 02/10/2017 12:10 PM CDT documented in this encounter Progress Notes * Ronaldo Guzman MD - 02/10/2017 11:45 AM CDT Images from the original note were not included. ASSESSMENT/PLAN: Pulmonary embolism without acute cor pulmonale (CMS/HCC) Doing ok. Cardiac and pulmonary testing has been turning out ok. Again discussed the relationship between morbid obesity and dyspnea Recs: 1) weight loss 2) continue xarelto 3) continue lasix -- titrate based on LE edema and weight 4) RTC in 3 months BMI 40.0-44.9, adult (CMS/HCC) Need for wt loss discussed. Recs: 1) continue diet and lifestyle modifications. HISTORY OF PRESENT ILLNESS: Neal Amaro is a 76 y.o. male returning for evaluation of PE and morbid obesity Weight is unchanged Some symptomatic improvement present since lasix was started Minimal cough No hemoptysis No fevers or chills or night sweats LE edema is present. Compliant with xarelto Did NOT qualify for oxygen based on recent walk study Recent stress test was also negative. History Smoking Status ??? Former Smoker ??? Quit date: 08/03/1979 Smokeless Tobacco ??? Not on file Social History Social History ??? Marital status: Spouse name: N/A ??? Number of children: N/A ??? Years of education: N/A Social History Main Topics ??? Smoking status: Former Smoker Quit date: 08/03/1979 ??? Smokeless tobacco: Not on file ??? Alcohol use No ??? Drug use: Unknown ??? Sexual activity: Not on file Other Topics Concern ??? 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 REVIEW OF SYSTEMS: All other review of systems is negative PHYSICAL EXAM: Pulse 66 Resp 22 Ht 188 cm (6' 2 ) Wt (!) 159 kg (350 lb) SpO2 100% BMI 44.94 kg/m?? General: pleasant, no acute distress Eyes: PERRL ENT: Mallampati III; no nasal hypertrophy or erythema Respiratory: clear to ausculation bilaterally; no wheezing/rales/rhonchi; normal respiratory effort, equal chest rise Cardiovascular: S1/S2, RRR, no murmurs, no edema Gastrointestinal: soft, non-tender abdomen Musculoskeletal: no cyanosis or clubbing Skin: no obvious rash or bruising Psychiatric: normal affect Neurologic: awake/alert, no focal deficits documented in this encounter Miscellaneous Notes * Assessment & Plan Note - Ronaldo Guzman MD - 02/10/2017 1:56 PM CDT Associated Problem(s): Morbid obesity with BMI of 45.0-49.9, adult (HCC) Need for wt loss discussed. Recs: 1) continue diet and lifestyle modifications. * Assessment & Plan Note - Ronaldo Guzman MD - 02/10/2017 1:55 PM CDT Associated Problem(s): Pulmonary embolism without acute cor pulmonale (HCC) Doing ok. Cardiac and pulmonary testing has been turning out ok. Again discussed the relationship between morbid obesity and dyspnea Recs: 1) weight loss 2) continue xarelto 3) continue lasix -- titrate based on LE edema and weight 4) RTC in 3 months documented in this encounter Plan of Treatment Not on file documented as of this encounter Visit Diagnoses Diagnosis Other pulmonary embolism without acute cor pulmonale, unspecified chronicity (HCC)- Primary BMI 40.0-44.9, adult (HCC) documented in this encounter Care Teams Sack Maker Relationship Specialty Start Date End Date Christopher Diop [place] [address] PCP - General 10/31/16 08/10/18 documented as of this encounter
--- OUTSIDE RECORDS SUMMARY | 2024-07-24 00:11 | XMS_ITS | Encounter Summary ---
Author Organization [facility] Facility Care Team Providers Care Batching Operator Name Role Phone Christopher Diop MD Primary Care Provider +1- [phone] Encounter Details Date Type Department Care Team ([facility] Contact Info) Description 07/23/2016 9:25 AM PEARL HAND - 07/23/2016 11:59 PM [facility] Hospital Encounter [facility] Jane Lorenzana MD [address] [place] [address] Osteomyelitis of vertebra of lumbar region (CMS/HCC); Arthrodesis status Social History Tobacco Use Types Packs/Day Years Used Date Smoking Tobacco: Former Cigarettes Q uit: 08/03/1979 Alcohol Use Standard Drinks/Week Comments No 0 (1 standard drink = 0.6 oz pur e alcohol) Sex and Gender Information Value Date Recorded Sex Assigned at Not on file Legal Sex Male 3:18 AM PEARL HAND Gender Identity Not on file Sexual Orientation Not on file documented as of this encounter Medications at Time of Discharge baclofen (LIORESAL) 10 mg tablet take 1 tablet by oral route 3 times every day 0 0 04/21/2016 insulin glargine (LANTUS SOLOSTAR) 100 unit/mL (3 mL) insulin pen inject by subcutaneous route as per insulin protocol 0 Syringe 0 04/21/2016 metoprolol (LOPRESSOR) 25 mg tablet 1/2 tab bid 90 3 04/21/2016 tamsulosin (FLOMAX) 0.4 mg capsule,extended release 24hr take 1 capsule by oral route every day 1/2 hour following the same meal each day 0 0 04/21/2016 amiodarone (PACERONE) 200 mg tablet take 1 tablet by ORAL route every day 90 3 04/21/2016 7 aspirin 325 mg tablet take 1 tablet by oral route every day 0 0 04/21/2016 7 atorvastatin (LIPITOR) 20 mg tablet take 1 tablet by oral route every day 0 0 04/21/2016 1 cholecalciferol (VITAMIN D3) 1,000 unit capsule take 1 Capsule by Oral route 2 times every day 0 0 04/21/2016 3 doxycycline (doxycycline hyclate) 100 mg capsule take 1 capsule by oral route 2 times every day 0 0 04/21/2016 3 insulin lispro (HumaLOG) 100 unit/mL cartridge inject by subcutaneous route per prescriber's instructions. Insulin dosing requires individualization . 0 Cartridge 0 04/21/2016 3 pregabalin (LYRICA) 75 mg capsule take 1 capsule by oral route 3 times every day 0 0 04/21/2016 3 rivaroxaban (XARELTO) 20 mg tablet take 1 tablet by oral route every day with the evening meal 0 0 04/21/2016 7 documented as of this encounter Plan of Treatment Not on file documented as of this encounter Procedures Procedure Name Priority Date/Time Associated Diagnosis Comments XR SPINE (ENTIRE) NON WT 1V Routine 07/23/2016 9:55 AM PEARL HAND documented in this encounter Results * XR Spine (Entire) Non Wt 1V (07/23/2016 9:55 AM PEARL HAND) Anatomical Region Laterality Modality Spine N/A Radiographic Ary ging 07/23/2016 9:55 AM PEARL HAND Narrative 07/23/2016 2:31 PM PEARL HAND PARIS TABOR M.D. SAHIL JACKSON M.D. FINAL REPORT The radiology attending physician has personally reviewed this study, and has reviewed and/or edited this written report and agrees with it. ACC# ??Date Time ??Exam [id number] Jul 23, 2016 09:55:00 [id number] Scoli T/L spine 6+ v ACC# ??Date Time ??Exam [id number] Jul 23, 2016 09:55:00 [id number] Scoli T/L spine 6+ v EXAMINATION: ?? Scoliosis thoracic and lumbar spine, 6+ views HISTORY: Lumbar discitis osteomyelitis FINDINGS: Two views of the entire spine in the standing position and five views of the lumbar spine are submitted for interpretation with comparison made to prior study dated 01/30/2016. There is an instrumented posterior spinal fusion between L1-L4 with changes of L2-L3 corpectomies with bone grafting. The overall appearance is unchanged from prior examination. There is unchanged positive sagittal and balance with no coronal imbalance. There is right convex thoracic curvature. Incidental findings include bilateral knee arthroplasties, inferior vena cava filter, curvilinear hyperdensity overlying the right thigh, and changes of hernia repair. ?? IMPRESSION: Unchanged L1-L4 instrumented posterior spinal fusion with L2-L3 corpectomies and grafting for management of discitis-osteomyelitis. ?? Requested By: JANE MARINELLI M.D. Dictated By: ?? SAHIL JACKSON M.D. ??on Jul 23 2016 10:48A This document has been electronically signed by: PARIS TABOR M.D. on Jul 23 2016 ??2:31P [id number] Procedure Note Provider, MD Dee - 12/08/2016 Navid SNYDER M.D. FINAL REPORT The radiology attending physician has personally reviewed this study, and has reviewed and/or edited this written report and agrees with it. ACC# Date Time Exam [id number] Jul 23, 2016 09:55:00 [id number] Scoli T/L spine 6+ v ACC# Date Time Exam [id number] Jul 23, 2016 09:55:00 [id number] Scoli T/L spine 6+ v EXAMINATION: Scoliosis thoracic and lumbar spine, 6+ views HISTORY: Lumbar discitis osteomyelitis FINDINGS: Two views of the entire spine in the standing position and five views of the lumbar spine are submitted for interpretation with comparison made to prior study dated 01/30/2016. There is an instrumented posterior spinal fusion between L1-L4 with changes of L2-L3 corpectomies with bone grafting. The overall appearance is unchanged from prior examination. There is unchanged positive sagittal and balance with no coronal imbalance. There is right convex thoracic curvature. Incidental findings include bilateral knee arthroplasties, inferior vena cava filter, curvilinear hyperdensity overlying the right thigh, and changes of hernia repair. IMPRESSION: Unchanged L1-L4 instrumented posterior spinal fusion with L2-L3 corpectomies and grafting for management of discitis-osteomyelitis. Requested By: JANE MARINELLI M.D. Dictated By: SAHIL JACKSON M.D. on Jul 23 2016 10:48A This document has been electronically signed by: PARIS TABOR M.D. on Jul 23 2016 2:31P [id number] us Historical Provider MD YO XR PROCEDURES Final R esult documented in this encounter Visit Diagnoses Diagnosis Osteomyelitis of vertebra of lumbar region (HCC) Arthrodesis status documented in this encounter Care Teams Batching Operator Relationship Specialty Start Date End Date Christopher Diop MD [address] [place] [address] [place] [address] PCP - General 07/22/16 10/20/16 documented as of this encounter
--- OUTSIDE RECORDS SUMMARY | 2024-07-24 00:11 | XMS_ITS | Encounter Summary ---
Author Organization [facility] Address [address] [place] [address] Care Team Providers Care Production Line Technician Name Role Phone Jessica Arroyo MD Primary Care Provider [phone] Encounter Details Date Type Department Care Team (Late st Contact Info) Description 03/12/2019 5:34 AM CDT Anesthesia Event [address] [id number] Arturo Vargas MD Anesthesia Record Procedure Summary Procedure Name Responsible Anesthesiologist Anesthesia Start Time Anesthesia Stop Time OPEN REDUCTION INTERNAL FIXATION - ANKLE (canceled) Events No events on file. Meds * Agents No agents on file. * Blood No blood administrations on file. Lines, Drains, and Airways No LDAs on file. documented in this encounter Social History Tobacco Use Types Packs/Day Years Used Date Smoking Tobacco: Former Smokeless Tobacco: Never Alcohol Use Standard Drinks/Week Comments No 0 (1 standard drink = 0.6 oz pur e alcohol) Sex and Gender Information Value Date Recorded Sex Assigned at Not on file Legal Sex Male 3:18 AM [employer] Gender Identity Not on file Sexual Orientation Not on file documented as of this encounter OR Notes * Anesthesia Preprocedure Evaluation - Arturo Vargas MD - 03/11/2019 9:58 PM CDT Anesthesia Evaluation Neal Amaro is a 78 y.o. male Procedure(s): OPEN REDUCTION INTERNAL FIXATION - ANKLE Pre-Op Diagnosis Codes: * Closed fracture of distal end of left fibula, unspecified fracture morphology, initial encounter [S82.832A] HISTORY HPI 78 yo M with hx of HTN, afib, VTE on warfarin, t2DM on insulin presenting after fall from his truckand L distal fibular fracture on 03/11; plan for L ankle ORIF on 03/12. Past Medical History Information obtained from: patient and chart. Cardiovascular + Hypertension + Atrial fibrillation/flutter (Last coumadin was 03/10 PM) - Current Rhythm: non-fibrillation/flutter. Rhythm type: paroxysmal (multiple episodes < 7 days). + DVT/PE (IVC filter placed in 2015) - IVC filter in situ. Musculoskeletal/Pain + Chronic pain (baclofen 10 tid) - back pain. Pertinent negatives: chronic opioid use Endocrine / Other + Diabetes mellitus - Diabetes type 2. Diabetic complications: nephropathy and neuropathy. Outpatient insulin use: current. + Obesity (BMI >30)- morbid obesity (BMI>40). [...] 10:01 PM.. Patient Active Problem List Diagnosis ??? Atrial fibrillation, currently in sinus rhythm ??? 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 Dyspnea ??? Pure hypercholesterolemia ??? Morbid obesity with BMI of 45.0-49.9, adult (CMS/HCC) ??? Pulmonary embolism without acute cor pulmonale (CMS/HCC) ??? Arthritis ??? Hypertension ??? Pulmonary embolism (CMS/HCC) ??? Paroxysmal atrial fibrillation (CMS/HCC) ??? Benign paroxysmal positional vertigo ??? Metastatic neoplasm (CMS/HCC) ??? Osteomyelitis of spine (CMS/HCC) ??? Hyperlipidemia associated with type 2 diabetes mellitus (CMS/HCC) ??? Closed fracture of left distal fibula Past Medical History: Diagnosis Date ??? Atrial fibrillation (CMS/HCC) ??? Hyperlipidemia History reviewed. No pertinent surgical history. Allergies Allergen Reactions ??? Adhesive Tape-Silicones Flushing (skin) HOME MEDICATIONS : amiodarone (PACERONE) 200 mg tablet finasteride (PROSCAR) 5 mg tablet dabigatran (PRADAXA) 150 mg capsule atorvastatin (LIPITOR) 20 mg tablet baclofen (LIORESAL) 10 mg tablet cholecalciferol (VITAMIN D3) 1,000 unit capsule doxycycline (doxycycline hyclate) 100 mg capsule flecainide (TAMBOCOR) 50 mg tablet flecainide (TAMBOCOR) 50 mg tablet flecainide (TAMBOCOR) 50 mg tablet fluticasone furoate-vilanterol (BREO ELLIPTA) 100-25 mcg/dose diskus inhaler furosemide (LASIX) 20 mg tablet insulin glargine (LANTUS SOLOSTAR) 100 unit/mL (3 mL) insulin pen insulin lispro (HumaLOG) 100 unit/mL cartridge metoprolol (LOPRESSOR) 25 mg tablet omeprazole (PriLOSEC) 20 mg capsule omeprazole (PriLOSEC) 40 mg capsule pregabalin (LYRICA) 75 mg capsule PROAIR HFA 90 mcg/actuation inhaler tamsulosin (FLOMAX) 0.4 mg capsule,extended release 24hr warfarin (COUMADIN) 5 mg tablet Current Facility-Administered Medications: ??? [START ON 03/12/2019] acetaminophen (TYLENOL) tablet 1,000 mg, 1,000 mg, oral, Q6H AUDELIA ??? [START ON 03/12/2019] albuterol HFA (PROVENTIL HFA,VENTOLIN HFA,PROAIR HFA) 90 mcg/actuation inhaler 1 puff, 1 puff, inhalation, Q6H While awake (RT) ??? [START ON 03/12/2019] atorvastatin (LIPITOR) tablet 20 mg, 20 mg, oral, Daily ??? baclofen (LIORESAL) tablet 10 mg, 10 mg, oral, TID PRN ??? dextrose (GLUTOSE) 40 % gel 15 g, 15 g, oral, Q15 Min PRN OR dextrose (D10W) 10% bolus 250 mL, 250 mL, intravenous, Q15 Min PRN ??? doxycycline (VIBRAMYCIN) tablet/capsule 100 mg, 100 mg, oral, BID - special ??? enoxaparin (LOVENOX) syringe 40 mg, 40 mg, subcutaneous, Q12H AUDELIA ??? [START ON 03/12/2019] finasteride (PROSCAR) tablet 5 mg, 5 mg, oral, Daily ??? flecainide (TAMBOCOR) tablet 50 mg, 50 mg, oral, BID ??? fluticasone propion-salmeterol (ADVAIR DISKUS) 100-50 mcg/dose diskus inhaler 1 puff, 1 puff, inhalation, BID (RT) ??? glucagon injection 1 mg, 1 mg, intramuscular, Q30 Min PRN ??? insulin glargine (LANTUS) injection 30 Units, 30 Units, subcutaneous, Nightly ??? [START ON 03/12/2019] insulin lispro (HumaLOG) injection 6 Units, 6 Units, subcutaneous, TID with meals ??? metoprolol (LOPRESSOR) tablet 12.5 mg, 12.5 mg, oral, BID ??? oxyCODONE (ROXICODONE) tablet 5 mg, 5 mg, oral, Q4H PRN ??? [START ON 03/12/2019] pantoprazole DR (PROTONIX) extended release tablet 40 mg, 40 mg, oral, Daily ??? pregabalin (LYRICA) capsule 75 mg, 75 mg, oral, TID ??? sodium chloride 0.9% flush 0.5-20 mL, 0.5-20 mL, intra-catheter, Q8H AUDELIA ??? sodium chloride 0.9% flush 0.5-20 mL, 0.5-20 mL, intra-catheter, PRN ??? [START ON 03/12/2019] tamsulosin (FLOMAX) extended release capsule 0.4 mg, 0.4 mg, oral, Daily with dinner Social History Tobacco Use Smoking Status Former Smoker Smokeless Tobacco Never Used Substance and Sexual Activity Alcohol Use No Substance and Sexual Activity Drug Use Not on file Family History Family history unknown: Yes PAT Physical Exam Airway Exam: Mallampati: II Cervical ROM: limited extension TM distance: decreased (Very thick neck; marcial. Last airway- 2014- video laryngoscopy 8.0 ETT, grade I view; difficult mask, 2- 3 person mask oralairway) Cardiovascular Exam: Rate: regular Rhythm: regular Pulmonary Exam: Decreased, bilat EENT Exam: trachea midline Dental Exam: Appears intact Skin Exam: Skin is warm and dry. Abdominal exam: Abdomen is soft. Current state: Patient's current state is cooperative and interactive. Vitals: 03/11/19 1730 03/11/19 1830 03/11/19 2100 BP: 144/88 113/82 (!) 174/69 Pulse: 89 91 78 Resp: 18 20 Temp: 36.9 ??C (98.4 ??F) SpO2: 95% 94% 96% PT: 03/11/2019: 25.0 sec* INR: 03/11/2019: 2.28* APTT: 03/11/2019: 34.5 sec Hgb A1C: No results found for requested labs within last 720 hours. CBC RBC: 03/11/2019: 5.60 M/cumm RDW: No results found for requested labs within last 720 hours. MCHC: 03/11/2019: 32.1 g/dL* MCH: 03/11/2019: 27.1 pg MCV: 03/11/2019: 84.5 fL Hct: 03/11/2019: 47.3 % Hgb: 03/11/2019: 15.2 g/dL WBC: 03/11/2019: 8.7 K/cumm MPV: 03/11/2019: 9.9 fL Platelets: 03/11/2019: 323 K/cumm RDW CV: 03/11/2019: 18.9 %* RDW Sd: 03/11/2019: 55.8 fL* BMP Glucose: 03/11/2019: 118 mg/dL Calcium: 03/11/2019: 9.0 mg/dL Sodium: 03/11/2019: 144 mmol/L Potassium: 03/11/2019: 4.6 mmol/L CO2: 03/11/2019: 28 mmol/L Chloride: 03/11/2019: 109 mmol/L BUN: 03/11/2019: 16 mg/dL Creatinine: 03/11/2019: 1.47 mg/dL* STOP-Bang Total Score: 5 Relevant diagnostics: ECG(s): NSR 68 Echocardiogram(s): TTE-02/08/19- Findings: Study Quality: Technically difficult study. Contrast was employed for LV opacification and endocardial border enhancement. BP: Blood pressure: 119/70 mmHg. Left Ventricle: Normal global and regional left ventricular systolic function. EF 55%. Normal left ventricular diastolic function. Normal left ventricular cavity size. Right Ventricle: Normal right ventricular systolic function. Normal right ventricular size. Left Atrium: There is mild enlargement of the left atrium. Right Atrium: The right atrium is normal in size. Atrial Septum: Normal appearing atrial septum. Mitral Valve: Normal mitral valve appearance and function. Aortic Valve: Normal aortic valve appearance and function. Tricuspid Valve: Normal tricuspid valve appearance and function. Trace tricuspid regurgitation. Pulmonic Valve: Normal appearance and function of the pulmonic valve. Pericardium: No significant pericardial effusion. Aortic Root and Aorta: Normal caliber aortic root. Aortic Arch: Normal caliber aortic arch. The aortic arch is poorly visualized. IVC: Normal appearance of the inferior vena cava. The IVC is not well visualized. Conclusions: 1. Normal global and regional left ventricular systolic function. EF 55%. Normal left ventricular diastolic function. Normal left ventricular cavity size. 2. There is mild enlargement of the left atrium. 3. Normal tricuspid valve appearance and function. Trace tricuspid regurgitation. Stress test(s): N/A Cardiac catheterization(s): N/A PFT(s): N/A Vascular studies: N/A Other: MRI lumbar spine-03/2016- IMPRESSION: 1. Posterior instrumented fusion spans L1-L4. Posterior decompression has been performed at L1-L2 and L2-L3. The spinal canal is patent at these levels. 2. No marrow edema or significant intradiscal T2 hyperintensity. No paraspinal soft tissue edema. No findings to suggest discitis osteomyelitis. 3. Small fluid collection in the posterior subcutaneous tissues centered at L3, with thin extension of fluid intensity heading towards the dorsal thecal sac at the level of L1-L2. No definite communication with the thecal sac is identified. Small pseudomeningocele cannot be excluded. Anesthesia Plan documented in this encounter Plan of Treatment Not on file documented as of this encounter Visit Diagnoses Not on filedocumented in this encounter Care Teams Production Line Technician Relationship Specialty Start Date End Date Jessica Arroyo MD PCP - General Family Practice 08/11/18 08/04/22 documented as of this encounter
--- OUTSIDE RECORDS SUMMARY | 2024-07-24 00:11 | XMS_ITS | Encounter Summary ---
Author Organization [facility] Address [address] [place] [address] Care Team Providers Care Hydro Plant Operator Name Role Phone Jessica Arroyo MD Primary Care Provider [phone] Reason for Visit * Reason Comments Fall Encounter Details Date Type Department Care Team (Latest Contact Info) Description 03/11/2019 12:35 PM CDT - 03/16/2019 3:58 PM CDT Hospital Encounter [facility] [address] [place] [address] Ketan Bartholomew MD [address] [place] [address] Taras Cisneros MD [address] [place] [address] Alvaro Ortez DO [address] [facility] [phone] [place] [address] Closed fracture of distal end of left fibula, unspecified fracture morphology, initial encounter (Primary Dx); Fall, initial encounter; Morbid obesity with BMI of 45.0-49.9, adult (CMS/HCC); 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 (CMS/HCC); Paroxysmal atrial fibrillation (CMS/HCC) Discharge Disposition: Discharge to a swing bed Social History Tobacco Use Types Packs/Day Years Used Date Smoking Tobacco: Former Smokeless Tobacco: Never Alcohol Use Standard Drinks/Week Comments No 0 (1 standard drink = 0.6 oz pur e alcohol) Sex and Gender Information Value Date Recorded Sex Assigned at Not on file 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 Gender Identity Not on file Sexual Orientation Not on file documented as of this encounter Last Filed Vital Signs Vital Sign Reading Time Taken Comments Blood Pressure 129/53 03/16/2019 12:10 PM CDT Pulse 66 03/16/2019 12:10 PM CDT Temperature 36.3 ??C (97.3 ??F) 03/16/2019 12:10 PM C DT Respiratory Rate 18 03/16/2019 12:10 PM CDT Oxygen Saturation 95% 03/16/2019 12:10 PM CDT Inhaled Oxygen Concentration - - Weight 163.3 kg (360 lb) 03/11/2019 12:40 PM CDT Height 188 cm (6' 2 ) 03/11/2019 12:40 PM CDT Body Mass Index 46.22 03/11/2019 12:40 PM CDT documented in this encounter Discharge Diagnoses Diagnosis Closed displaced bimalleolar fracture of left lower leg - DISPLACED BIMALLEOLAR FRACTURE OF LEFT LOWER LEG, INITIAL ENCOUNTER FOR CLOSED FRACTURE Body mass index (BMI) of 45.0-49.9 in adult ([facility]) - BODY MASS INDEX (BMI) 45.0- 49.9, ADULT Chronic obstructive pulmonary disease ([facility]) - CHRONIC OBSTRUCTIVE PULMONARY DISEASE, UNSPECIFIED Overexertion from prolonged static or awkward postures, initial encounter - OVEREXERTION FROM PROLONGED STATIC OR AWKWARD POSTURES, INITIAL ENCOUNTER Activity, other specified - ACTIVITY, OTHER SPECIFIED Unspecified place or not applicable - UNSPECIFIED PLACE OR NOT APPLICABLE External cause status - UNSPECIFIED EXTERNAL CAUSE STATUS Fall on same level from slipping, tripping and stumbling without subsequent striking against object, initial encounter - FALL ON SAME LEVEL FROM SLIPPING, TRIPPING AND STUMBLING WITHOUT SUBSEQUENT STRIKING AGAINST OBJECT, Other assisted (current) drug therapy - OTHER ALF (CURRENT) DRUG THERAPY 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 current use of antibiotics - ALF (CURRENT) USE OF ANTIBIOTICS 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 current use of anticoagulant - CYBERATHLETE (CURRENT) USE OF ANTICOAGULANTS 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 current use of insulin (CMS/HCC) (HCC) - ALF (CURRENT) USE OF INSULIN senior care current use of inhaled steroid - CYBERATHLETE (CURRENT) USE OF INHALED STEROIDS Personal history of pulmonary embolism - PERSONAL HISTORY OF PULMONARY EMBOLISM Presence of other vascular implants and grafts - PRESENCE OF OTHER VASCULAR IMPLANTS AND GRAFTS Personal history of other venous thrombosis and embolism - PERSONAL HISTORY OF OTHER VENOUS THROMBOSIS AND EMBOLISM Other hyperlipidemia - OTHER HYPERLIPIDEMIA Type 2 diabetes mellitus with diabetic chronic kidney disease (HCC) - TYPE 2 DIABETES MELLITUS WITH DIABETIC CHRONIC KIDNEY DISEASE 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) (HCC) - TYPE 2 DIABETES MELLITUS WITH DIABETIC NEUROPATHY, UNSPECIFIED Morbid (severe) obesity due to excess calories (HCC) - MORBID (SEVERE) OBESITY DUE TO EXCESS CALORIES Paroxysmal atrial fibrillation (CMS/HCC) (HCC) - PAROXYSMAL ATRIAL FIBRILLATION Atrial fibrillation Acute pain due to trauma - ACUTE PAIN DUE TO TRAUMA Hypertensive chronic kidney disease with stage 1 through stage 4 chronic kidney disease, or unspecified chronic kidney disease - HYPERTENSIVE CHRONIC KIDNEY DISEASE WITH STAGE 1 THROUGH STAGE 4 CHRONIC KIDNEY DISEASE, OR UNSPECIF Chronic kidney disease - CHRONIC KIDNEY DISEASE, UNSPECIFIED Chronic kidney disease, unspecified Type 2 diabetes mellitus with other specified complication (HCC) - TYPE 2 DIABETES MELLITUS WITH OTHER SPECIFIED COMPLICATION Other nonmedicinal substance allergy status - OTHER NONMEDICINAL SUBSTANCE ALLERGY STATUS Legal blindness, 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[place] - LEGAL BLINDNESS, DEFINED IN [place] Sprain of deltoid ligament of left ankle - SPRAIN OF DELTOID LIGAMENT OF LEFT ANKLE, INITIAL ENCOUNTER documented in this encounter Discharge Summaries * Jessica Escamilla NP - 03/16/2019 12:58 PM CDT [facility] Geriatric Trauma Surgery Inpatient Discharge Summary This is a clinical resume for patient Neal Amaro for attending Alvaro Ortez DO Admission Date: 03/11/2019 Admitting Provider: Alvaro Ortez DO Discharge Date: 03/16/2019 Hospitalization: Total duration of encounter: 5 days Team: Geriatric Trauma Surgery Primary Care Provider: Jessica Hinkle MD Discharge Diagnosis(es): Closed fracture of left distal fibula 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 (CMS/HCC) Morbid obesity with BMI of 45.0-49.9, adult (CMS/HCC) Hypertension Pulmonary embolism (CMS/HCC) Paroxysmal atrial fibrillation (CMS/HCC) Acute pain due to trauma Type 2 diabetes mellitus, with long-term current use of insulin ([facility]) Hospital Course: Clinical Course: completed History of Present Illness: Neal Amaro??is a 78 y.o.??male??with??COPD, IDDM, DVT/PE 2015 s/p IVC filter, afib on coumadin (INR 2.3), neuropathy, HTN,??and??BMI 46 that presented to [facility] with complaints ofleft ankle pain after slipping while getting into his truck and falling. He denied head trauma or LOC. Imaging at the OSH demonstrated a left ankle fracture that was attempted reduction. Physical exam on arrival revealed GCS 15, splinted LLE with intact DP and chronic sensory loss. Further imaging was negative for any other acute injuries. Orthopedic trauma was consulted and pt was admitted to the trauma floor. Active Issues Requiring Follow Up: #L trimalleolar fracture/dislocation - Ortho trauma was consulted. The fracture/dislocation was reduced and splinted -Ortho recommended non weight bearing to the left leg and no immediate operative plan. - Elevate L foot above heart level and keep splinted until follow up with orthopedics. -PT/OT evaluated the patient and recommended rehab at discharge. ?? #Acute pain -APAP q6 hrs, PRN oxy, home Lyrica continued, and home baclofen continued PRN ?? #COPD/HTN -Home inhalers continued?? -Lopressor continued?? -Lasix 20mg ?? #CKD -Creatinine 1.47 on admit > downtrending to 1.29 (appears about baseline) ?? #Afib/HO DVT and PE - Flecainide continued - Warfarin 3mg continued - INR 3.33 at discharge. ?? #DM - MDSSI +6 units while inpatient. - home regimen = 44 units lantus, 8 lispro TIDAC, continued at discharge. ?? 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 Operative Procedures Performed: Procedure name not found. No surgery found Discharge Physical Exam: Discharge Condition: fair Pulse: 66 Resp: 18 BP: 129/53 Temp: 36.3 ??C (97.3 ??F) Weight: (!) 163.3 kg (360 lb) GENERAL- no acute distress, comfortable NEURO- alert and oriented PSYCH- Mood and affect appropriate HEENT- Visual impairment at baseline, mucous membranes moist CARDIO- regular rate and rhythm RESP- nonlabored respirations GI- abdomen soft, nontender, nondistended MSK- grossly normal range of motion. L ankle splinted. Decreased sensation to light touch to bilateral feet d/t chronic neuropathy EXTREMITIES- extremities warm and dry, no swelling. L ankle splinted INTEGUMENT- no rashes Diet: Diet Instructions Adult Discharge Diet Diet Type: Return to previous diet Discharge Disposition: Code Status at Discharge: Full Activity: Activity Instructions Discharge Activity: Additional Activity Restrictions: Do not bear weight to your left leg until you have been cleared to do so by the orthopedic trauma team during your follow up Discharge Activity: Driving restrictions -Do not drive Weight bearing status Restrictions RUE: Weight Bearing as Tolerated; Restrictions LUE: Weight Bearing as Tolerated; Restrictions RLE: Weight Bearing as Tolerated; Restrictions LLE: Non-Weight Bearing Restrictions RUE: Weight Bearing as Tolerated Restrictions LUE: Weight Bearing as Tolerated Restrictions RLE: Weight Bearing as Tolerated Restrictions LLE: Non-Weight Bearing activity as tolerated Right Upper ExtremityWeight bearing as tolerated Left Upper ExtremityWeight bearing as tolerated Right Lower ExtremityWeight bearing as tolerated Left Lower ExtremityNon-weight bearing Wound Care: Carries out hygiene routine on a regular basis and Requires assistance Keep splint clean and dry Discharge Medications: Your medication list START taking these medications acetaminophen 500 mg capsule Take 2 capsules (1,000 mg total) by mouth every 6 (six) hours oxyCODONE 5 mg immediate release tablet Commonly known as: ROXICODONE Take 1 tablet (5 mg total) by mouth every 4 (four) hours as needed for pain for up to 7 days CHANGE how you take these medications albuterol HFA 90 mcg/actuation inhaler Commonly known as: PROAIR HFA Inhale 2 puffs every 6 (six) hours as needed for wheezing What changed: how much to take how to take this when to take this reasons to take this flecainide 50 mg tablet Commonly known as: TAMBOCOR Take 1 tablet (50 mg total) by mouth 2 (two) times a day. What changed: Another medication with the same name was removed. Continue taking this medication, and follow the directions you see here. omeprazole 20 mg capsule Commonly known as: PriLOSEC What changed: Another medication with the same name was removed. Continue taking this medication, and follow the directions you see here. warfarin 3 mg tablet Commonly known as: COUMADIN Take 1 tablet (3 mg total) by mouth daily What changed: medication strength how much to take how to take this when to take this CONTINUE taking these medications atorvastatin 20 mg tablet Commonly known as: LIPITOR take 1 tablet by oral route every day baclofen 10 mg tablet Commonly known as: LIORESAL take 1 tablet by oral route 3 times every day doxycycline 100 mg capsule Commonly known as: VIBRAMYCIN take 1 capsule by oral route 2 times every day finasteride 5 mg tablet Commonly known as: PROSCAR FLOMAX 0.4 mg extended release capsule Generic drug: tamsulosin take 1 capsule by oral route every day 1/2 hour following the same meal each day fluticasone furoate-vilanterol 100-25 mcg/dose diskus inhaler Commonly known as: BREO ELLIPTA HumaLOG U-100 Insulin 100 unit/mL cartridge Generic drug: insulin lispro inject by subcutaneous route per prescriber's instructions. Insulin dosing requires individualization. LANTUS SOLOSTAR U-100 INSULIN 100 unit/mL (3 mL) insulin pen Generic drug: insulin glargine inject by subcutaneous route as per insulin protocol LASIX 20 mg tablet Generic drug: furosemide take 1 tablet by oral route everyday and as needed LYRICA 75 mg capsule Generic drug: pregabalin take 1 capsule by oral route 3 times every day metoprolol 25 mg tablet Commonly known as: LOPRESSOR 1/2 tab bid VITAMIN D3 1,000 unit capsule Generic drug: cholecalciferol take 1 Capsule by Oral route 2 times every day STOP taking these medications amiodarone 200 mg tablet Commonly known as: PACERONE Discharge Instructions: Other Instructions Call provider for: Please contact the Trauma Department if any problems develop, please call the Trauma phone [phone] during the week or after hours, and ask to speak to the Trauma [employer] LEAD or resident software sales consultant. Please be aware all medications including narcotic pain medications cannot be called in over the phone. To refill, an appointment will need to be made with the appropriate medical or surgical service. You mayfollow up with your primary care physician for long-term management of medications and long-term medical conditions. For an appointment with the Trauma Clinic, Please call [phone] during normal business hours. Call provider for: increased temperature -Temperature greater than 101 degrees F Call provider for: nausea, vomiting, diarrhea -If you have persistent nausea, vomiting or diarrhea that does not stop Call provider for: redness, tenderness, or signs of infection (pain, swelling, redness, odor or green/yellow discharge around incision site) Call provider for: severe uncontrolled pain Call provider for: any other concerns or questions Call provider if: you feel dizzy, very tired or like you may faint Care Instructions: Incentive Spirometer - Continue to use your incentive spirometer Care Instructions: Incisions -Keep incisions clean and dry Care Instructions: No tub baths -No tub baths, whirlpools or swimming until your provider says it's ok. Care Instructions: Shower -You may shower, cover your left leg splint with a bag to prevent it from getting wet Discharge instructions - Following medications have been stopped: Special Instructions You have been restarted on your coumadin, and your dose has been decreased while you have been hospitalized based off of your daily INR levels. The day of discharge, your INR level was 3.33. We recommend that you resume the current dose of coumadin at 3mg daily and have your INR levels assessed in one week for further titration of your coumadin. Call your Surgeon???s office from 8:00am-3:30pm at for the following: * You have a fever of more than 101.5 degrees. * You have nausea, vomiting or diarrhea that does not stop. * You have pus or bad smelling drainage from your wound. * The pain in your stomach is very bad or gets a lot worse. * You feel dizzy, very tired or like you may faint. * You have hard time breathing. * You have any other concerns or questions Follow up Contact Information for Follow-ups primary care provider Next Steps: Follow up Questions: Primary Care Provider Name: Within 2 weeks for general care and concerns as well as for medication refills Jessica Hinkle MD Specialty: Family Practice, Family Medicine Relationship: PCP - General [address] [place] [address] Next Steps: Follow up Future Appointments Date Time Provider Department Center 03/21/2019 11:45 AM Mae Baig MD [facility] 04/07/2019 11:30 AM Zhanna Anderson NP [facility] 08/17/2019 12:00 PM DO Janae Braga [facility] Ryan I spent 30 minutes completing this hospital discharge. Carlota Packer NP 03/16/19 CC: Jessica Hinkle MD Cosigned by Caleb Blas MD at 03/16/2019 1:04 PM CDT documented in this encounter Discharge Instructions * Discharge Instructions* Carlota Packer NP - 03/16/2019 12:56 PM CDT Images from the original note were not included. A-fib (Atrial Fibrillation) WHAT YOU NEED TO KNOW: A-fib may come and go, or it may be a long-term condition. A-fib can cause blood clots, stroke, or heart failure. These conditions may become life-threatening. It is important to treat and manage a-fib to help prevent a blood clot, stroke, or heart failure. DISCHARGE INSTRUCTIONS: Call 911 for any of the following: ?? You have any of the following signs of a heart attack: ?? Squeezing, pressure, or pain in your chest that lasts longer than 5 minutes or returns ?? Discomfort or pain in your back, neck, jaw, stomach, or arm ?? Trouble breathing ?? Nausea or vomiting ?? Lightheadedness or a sudden cold sweat, especially with chest pain or trouble breathing ?? You have any of the following signs of a stroke: ?? Numbness or drooping on one side of your face ?? Weakness in an arm or leg ?? Confusion or difficulty speaking ?? Dizziness, a severe headache, or vision loss Return to the emergency department if: You have any of the following signs of a blood clot: ?? You feel lightheaded, are short of breath, and have chest pain. ?? You cough up blood. ?? You have swelling, redness, pain, or warmth in your arm or leg. Contact your eyewear manufacturing supervisor or healthcare provider if: ?? Your heart rate is more than 110 beats per minute. ?? You have new or worsening swelling in your legs, feet, ankles, or abdomen. ?? You are short of breath, even at rest. ?? You have questions or concerns about your condition or care. Medicines: You may need any of the following: ?? Heart medicines help control your heart rate or rhythm. You may need more than one medicine to treat your symptoms. ?? Blood thinners help prevent blood clots. Examples of blood thinners include heparin and warfarin. Clots can cause strokes, heart attacks, and . The following are general safety guidelines to follow while you are taking a blood thinner: ?? Watch for bleeding and bruising while you take blood thinners. Watch for bleeding from your gumsor nose. Watch for blood in your urine and bowel movements. Use a soft washcloth on your skin, and a soft toothbrush to brush your teeth. This can keep your skin and gums from bleeding. If you shave,use an electric shaver. Do not play contact sports. ?? Tell your dentist and other healthcare providers that you take anticoagulants. Wear a bracelet or necklace that says you take this medicine. ?? Do not start or stop any medicines unless your healthcare provider tells you to. Many medicines cannot be used with blood thinners. ?? Tell your healthcare provider right away if you forget to take the medicine, or if you take too much. ?? Warfarin is a blood thinner that you may need to take. The following are things you should be aware of if you take warfarin. ?? Foods and medicines can affect the amount of warfarin in your blood. Do not make major changes to your diet while you take warfarin. Warfarin works best when you eat about the same amount of vitamin K every day. Vitamin K is found in green leafy vegetables and certain other foods. Ask for more information about what to eat when you are taking warfarin. ?? You will need to see your healthcare provider for follow-up visits when you are on warfarin. Youwill need regular blood tests. These tests are used to decide how much medicine you need. ?? Antiplatelets , such as aspirin, help prevent blood clots. Take your antiplatelet medicine exactly as directed. These medicines make it more likely for you to bleed or bruise. If you are told to take aspirin, do not take acetaminophen or ibuprofen instead. ?? Take your medicine as directed. Contact your healthcare provider if you think your medicine is not helping or if you have side effects. Tell him or her if you are allergic to any medicine. Keep a list of the medicines, vitamins, and herbs you take. Include the amounts, and when and why you take them. Bring the list or the pill bottles to follow-up visits. Carry your medicine list with you in case of an emergency. Follow up with your eyewear manufacturing supervisor as directed: You will need regular blood tests and monitoring. Write down your questions so you remember to ask them during your visits. Manage A-fib: ?? Know your target heart rate. Learn how to take your pulse and monitor your heart rate. ?? Manage other health conditions. This includes high blood pressure, sleep apnea, thyroid disease,diabetes, and other heart conditions. Take medicine as directed and follow your treatment plan. ?? Limit or do not drink alcohol. Alcohol can make a-fib hard to manage. Ask your healthcare provider if it is safe for you to drink alcohol. A drink of alcohol is 12 ounces of beer, 5 ounces of wine, or 1?? ounces of liquor. ?? Do not smoke. Nicotine and other chemicals in cigarettes and cigars can cause heart and lung damage. Ask your healthcare provider for information if you currently smoke and need help to quit. E-cigarettes or smokeless tobacco still contain nicotine. Talk to your healthcare provider before you use these products. ?? Eat heart-healthy foods. Heart healthy foods will help keep your cholesterol low. These include fruits, vegetables, whole-grain breads, low-fat dairy products, beans, lean meats, and fish. Replacebutter and margarine with heart- healthy oils such as olive oil and canola oil. ?? Maintain a healthy weight. Ask your healthcare provider how much you should weigh. Ask him to help you create a weight loss plan if you are overweight. ?? Exercise for 30 minutes most days of the week. Ask your healthcare provider about the best exercise plan for you. ?? 2017 [employer] Information is for End User's use only and may not be sold, redistributed or otherwise used for commercial purposes. All illustrations and images included in CareNotes?? are the copyrighted property of [employer] or [employer]. The above information is an educational psychology professor only. It is not intended as medical advice for individual conditions or treatments. Talk to your doctor, nurse or pharmacist before following any medical regimen to see if it is safe and effective for you. Ankle Fracture WHAT YOU NEED TO KNOW: An ankle fracture is a break in 1 or more of the bones in your ankle. DISCHARGE INSTRUCTIONS: Call 911 for any of the following: ?? You feel lightheaded, short of breath, and have chest pain. ?? You cough up blood. Return to the emergency department if: ?? Your leg feels warm, tender, and painful. It may look swollen and red. ?? Blood soaks through your bandage. ?? You have severe pain in your ankle. ?? Your cast feels too tight. ?? Your foot or toes are cold or numb. ?? Your foot or toenails turn blue or stallings. Contact your healthcare provider if: ?? Your splint feels too tight. ?? Your swelling has increased or returned. ?? You have a fever. ?? Your pain does not go away, even after treatment. ?? You have questions or concerns about your condition or care. Medicines: You may need any of the following: ?? Acetaminophen decreases pain and fever. It is available without a doctor's order. Ask how much to take and how often to take it. Follow directions. Acetaminophen can cause liver damage if not taken correctly. ?? NSAIDs , such as ibuprofen, help decrease swelling, pain, and fever. This medicine is available with or without a doctor's order. NSAIDs can cause stomach bleeding or kidney problems in certain people. If you take blood thinner medicine, always ask your healthcare provider if NSAIDs are safe foryou. Always read the medicine label and follow directions. ?? Prescription pain medicine may be given. Ask your healthcare provider how to take this medicine safely. ?? Take your medicine as directed. Contact your healthcare provider if you think your medicine is not helping or if you have side effects. Tell him or her if you are allergic to any medicine. Keep a list of the medicines, vitamins, and herbs you take. Include the amounts, and when and why you take them. Bring the list or the pill bottles to follow-up visits. Carry your medicine list with you in case of an emergency. Follow up with your healthcare provider in 1 to 2 days: Your fracture may need to be reduced (bonespushed back into place) or you may need surgery. Write down your questions so you remember to ask them during your visits. Support devices: You will be given a brace, cast, or splint to limit your movement and protect yourankle. You may need to use crutches to protect your ankle and decrease your pain as you move around. Do not remove your device and do not put weight on your injured ankle. Splint and cast care: Cover the splint or cast before you bathe so it does not get wet. Tape 2 plastic trash bags to your skin above the cast. Try to keep your ankle out of the water as much as possible. Rest: Rest your ankle so that it can heal. Return to normal activities as directed. Ice: Apply ice on your ankle for 15 to 20 minutes every hour or as directed. Use an ice pack, or put crushed ice in a plastic bag. Cover it with a towel. Ice helps prevent tissue damage and decreasesswelling and pain. Elevate: Elevate your ankle above the level of your heart as often as you can. This will help decrease swelling and pain. Prop your ankle on pillows or blankets to keep it elevated comfortably. ?? 2017 [employer] Information is for End User's use only and may not be sold, redistributed or otherwise used for commercial purposes. All illustrations and images included in CareNotes?? are the copyrighted property of [employer] or [employer]. The above information is an educational psychology professor only. It is not intended as medical advice for individual conditions or treatments. Talk to your doctor, nurse or pharmacist before following any medical regimen to see if it is safe and effective for you. Warfarin (By mouth) Warfarin (WAR-far-in) Prevents and treats blood clots. May lower the risk of serious complications after a heart attack. This medicine is a blood thinner. Brand Name(s): Coumadin, Jantoven There may be other brand names for this medicine. When This Medicine Should Not Be Used: This medicine is not right for everyone. Do not use it if you had an allergic reaction to warfarin,if you are , or if you have health problems that could cause bleeding. How to Use This Medicine: Tablet ?? Take your medicine as directed. Your dose may need to be changed several times to find what works best for you. ?? This medicine should come with a Medication Guide. Ask your pharmacist for a copy if you do not have one. ?? Missed dose: Take a dose as soon as you remember. If it is almost time for your next dose, wait until then and take a regular dose. Do not take extra medicine to make up for a missed dose. ?? Store the medicine in a closed container at room temperature, away from heat, moisture, and direct light. Drugs and Foods to Avoid: Ask your doctor or pharmacist before using any other medicine, including vkjj-fas-fpqterc medicines, vitamins, and herbal products. ?? Many medicines and foods can affect how warfarin works and may affect the PT/INR test results. Tell your doctor before you start or stop any medicine, especially the following: ?? Co-enzyme Q10, echinacea, garlic, ginkgo, ginseng, goldenseal, or Mario's wort ?? Another blood thinner, including apixaban, argatroban, bivalirudin, cilostazol, clopidogrel, dabigatran, desirudin, dipyridamole, heparin, lepirudin, prasugrel, rivaroxaban, ticlopidine ?? Medicine to treat depression or anxiety, including citalopram, desvenlafaxine, duloxetine, escitalopram, fluoxetine, fluvoxamine, milnacipran, paroxetine, sertraline, venlafaxine, vilazodone ?? Medicine to treat an infection ?? NSAID pain or arthritis medicine, including aspirin, celecoxib, diclofenac, diflunisal, fenoprofen, ibuprofen, indomethacin, ketoprofen, ketorolac, mefenamic acid, naproxen, oxaprozin, piroxicam, sulindac. Check labels for uyrz-nln-bitjust medicines to find out if they contain an NSAID. ?? Steroid medicine, including dexamethasone, hydrocortisone, methylprednisolone, prednisolone, prednisone ?? Warfarin works best if you eat about the same amount of vitamin K every day. Foods high in vitamin K include asparagus, broccoli, brussels sprouts, cabbage, green leafy vegetables, plums, rhubarb,and canola oil. Talk to your doctor before you make changes to your normal diet. ?? Do not eat grapefruit or drink grapefruit juice while you are using this medicine. Warnings While Using This Medicine: ?? It is not safe to take this medicine during . It could harm an unborn baby. Tell your doctor right away if you become . Use an effective form of control to keep from getting during treatment and for at least 1 month after your last dose. ?? Tell your doctor if you are , or if you have kidney disease, liver disease, heart disease, diabetes, heart failure, high blood pressure, an infection, a stomach ulcer, or protein C deficiency. Also tell your doctor if you had recent surgery or an injury, or a history of stroke, anemia, severe bleeding or bruising, or problems caused by heparin use. ?? This medicine may cause the following problems: ?? Bleeding, which may be life-threatening ?? Gangrene (skin or tissue damage) ?? Calciphylaxis or calcium uremic arteriolopathy ?? Kidney problems, including acute kidney injury ?? Purple toes syndrome ?? You must have a PT/INR blood test while you use this medicine to check how well your blood is clotting. Your doctor will use the test results to make sure the medicine is working properly. Keep all appointments for the PT/INR blood tests. ?? You may bleed or bruise more easily with warfarin. To prevent injury or cuts, do not play rough sports, be careful with sharp objects, and brush and floss your teeth gently. Blow your nose gently,and do not pick your nose. ?? Carry an ID card or wear a medical alert bracelet to let emergency caregivers know that you use warfarin. ?? Tell any doctor or dentist who treats you that you are using this medicine. You may need to stopusing this medicine several days before you have surgery or medical tests. ?? Keep all medicine out of the reach of children. Never share your medicine with anyone. Possible Side Effects While Using This Medicine: Call your doctor right away if you notice any of these side effects: ?? Allergic reaction: Itching or hives, swelling in your face or hands, swelling or tingling in your mouth or throat, chest tightness, trouble breathing ?? Bleeding from your gums or nose, coughing up blood, heavy monthly periods ?? Bleeding that does not stop, bruising, or weakness ?? Dizziness, fainting, lightheadedness ?? Pain, brown or black skin, or skin that is cool to the touch ?? Purple toes or feet, or new pain in your leg, foot, or toes ?? Purplish red, net-like, blotchy spots on the skin ?? Red or dark brown urine, or red or black, tarry stools ?? Vomiting blood or material that looks like coffee grounds If you notice other side effects that you think are caused by this medicine, tell your doctor. Call your doctor for medical advice about side effects. You may report side effects to FDA at 5-687-ZCU-3855 ?? 2017 [employer] Information is for End User's use only and may not be sold, redistributed or otherwise used for commercial purposes. The above information is an educational psychology professor only. It is not intended as medical advice for individual conditions or treatments. Talk to your doctor, nurse or pharmacist before following any medical regimen to see if it is safe and effective for you. Pharmacokinetic Consult - Anticoagulation Dosing Neal Amaro is a 78 y.o. male who has been consulted for warfarin dosing and monitoring. Current Hematologic Labs INR Date Value Ref Range Status 03/15/2019 3.33 (H) 0.80 - 1.20 Final Comment: Interpretive Data Inpatient therapeutic ranges* Atrial fibrillation 2.0-3.0 INR Venous thrombo-embolism 2.0-3.0 INR Bioprosthetic heart valve * Mechanical heart valve, bileaflet or tilting disk,aortic position 2.0-3.0 INR All other,or bileaflet or tilting disk, in mitral position 2.5-3.5 INR *See the pharmacy resource directory (PHRED) for an updated copy of the Tool Book at [email or web address] Current Interpretive Data was last revised 2011. No results found for: HGB No results found for: HCT No results found for: LABPLAT No results found for: PTT Subjective Asessment Plan Will continue to follow patient's clinical progress daily. Carlota Packer NP documented in this encounter Medications at Time [...] same meal each day 0 0 04/21/2016 oxyCODONE (ROXICODONE) 5 mg immediate release tabletIndications :Pain Take 1 tablet (5 mg total) by mouth every 4 (four) hours as needed for pain for up to 7 days 30 tablet 03/16/2019 03/23/20 19 acetaminophen 500 mg capsule Take 2 capsules (1,000 mg total) by mouth every 6 (six) hours 30 tablet 03/16/2019 07/28/20 23 albuterol HFA (PROAIR HFA) 90 mcg/actuation inhaler Inhale 2 puffs every 6 (six) hours as needed for wheezing 1 Inhaler 03/16/2019 08/06/19 22 atorvastatin (LIPITOR) 20 mg tablet take 1 tablet by oral route every day 0 0 04/21/2016 08/15/19 21 cholecalciferol (VITAMIN D3) 1,000 unit capsule take 1 Capsule by Oral route 2 times every day 0 0 04/21/2016 07/29/20 23 doxycycline (doxycycline hyclate) 100 mg capsule take 1 capsule by oral route 2 times every day 0 0 04/21/2016 07/28/20 23 finasteride (PROSCAR) 5 mg tablet Take 5 mg by mouth daily 08/17/19 20 flecainide (TAMBOCOR) 50 mg tabletIndications :Paroxysmal atrial fibrillation (CMS/HCC) (HCC) Take 1 tablet (50 mg total) by mouth 2 (two) times a day. 180 tablet 3 01/27/2018 08/15/19 21 fluticasone furoate-vilantero l (BREO ELLIPTA) 100-25 mcg/dose diskus inhaler Inhale 1 puff daily Rinse mouth with water after use. Do not swallow. 08/15/19 21 furosemide (LASIX) 20 mg tablet take 1 tablet by oral route everyday and as needed 60 4 10/21/2016 07/06/20 23 insulin lispro (HumaLOG) 100 unit/mL cartridge inject by subcutaneous route per prescriber's instructions. Insulin dosing requires individualization . 0 Cartridge 0 04/21/2016 07/28/20 23 omeprazole (PriLOSEC) 20 mg capsule Take 40 mg by mouth daily. 08/15/19 21 pregabalin (LYRICA) 75 mg capsule take 1 capsule by oral route 3 times every day 0 0 04/21/2016 07/28/20 23 warfarin (COUMADIN) 3 mg tabletIndications :atrial fibrillation,Veno us Thrombosis Take 1 tablet (3 mg total) by mouth daily 03/16/2019 07/28/20 23 documented as of this encounter Ordered Prescriptions Prescription Sig Dispense Quantity Refills Last Filled Start Date End Date oxyCODONE (ROXICODONE) 5 mg immediate release tabletIndications: Pain Take 1 tablet (5 mg total) by mouth every 4 (four) hours as needed for pain for up to 7 days 30 tablet 03/16/2019 9 acetaminophen 500 mg capsule Take 2 capsules (1,000 mg total) by mouth every 6 (six) hours 30 tablet 03/16/2019 3 warfarin (COUMADIN) 3 mg tabletIndications: atrial fibrillation,Venou s Thrombosis Take 1 tablet (3 mg total) by mouth daily 03/16/2019 3 albuterol HFA (PROAIR HFA) 90 mcg/actuation inhaler Inhale 2 puffs every 6 (six) hours as needed for wheezing 1 Inhaler 03/16/2019 2 documented in this encounter Discharge Disposition Disposition Code Departure Means Destination Discharge to a swing bed documented in this encounter Progress Notes * Roxane Patel LMSW - 03/16/2019 12:33 PM CDT 03/16/19 1232 Discharge Summary Chart reviewed For Medical Necessity Discharge Disposition SNF, Commercial Insurance, Short term Skilled Specify Facility [facility] Facility Contact Number [phone] Discharge Records Transfer Form Completed;Chart Copied Discharge Additional Assistance Does the patient need discharge transport arranged? Yes Has discharge transport been arranged? Yes Details of Transportation [facility] [phone] Discharge Transportation Communication Mode of transport has been discussed with the patient/family. All are agreeable to the plan and understand their responsibilities to ensure the safe transfer. No further CM/SW intervention is anticipated at this time. Post Discharge Care Provider Post Discharge Care Plan DC Summary has been faxed to next level of care provider (see Follow Up Providers) [facility] Kyra ROSARIO F: [phone] R: [phone] [facility] [phone] Trip Pt has been deemed medically stable for discharge. Pt aware and agreeable. SW has notified ellen Breaux [phone]. Sw received a call from [facility] indication that they have obtained auth from [employer]. Transportation has been arranged through [facility]. Mode of transport has been discussed with the patient/family, doctors, nurses, and all are agreeable to plan and understand their responsibilities to ensure the safe transfer. Certificate of Medical Necessity completed due to fall;ankle frx. No further social work intervention is anticipated at this time. Patient/family informed that while medical team will do everything possible for Medicare to pay forthe ambulance there is a chance that Medicare will not pay, as Medicare's criteria for ambulances are often stricter than the medical team. Social work informed patient/family that even if Medicare does pay, it may not cover the full cost of the trip as Medicare is now only covering the cost to nearest available facility. Social work informed patient/family that they will be responsible for the remainder of the bill. Patient/family voiced understanding.?? Roxane Patel LMSW [facility] Social Work [phone] * Jessica Escamilla NP - 03/15/2019 3:21 PM CDT [facility] Geriatric Trauma Surgery Daily Progress Note Admit: 03/11/2019 12:35 PM Date: March 15, 2019 Length of Stay: 4 Attending: Alvaro Ortez DO POD:* No surgery date entered * Procedure(s): OPEN REDUCTION INTERNAL FIXATION - ANKLE History: Neal Amaro is a 78 y.o. 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 He denied head trauma or LOC. Imaging at the OSH demonstrated a left ankle fracture that was attempted reduction. Physical exam on arrival revealed GCS 15, splinted LLE with intact DP and chronic sensory loss. Further imaging was negative for any other acute injuries. Orthopedic trauma was consulted and pt was admitted to the trauma floor. ?? Interval History: 03/15: Pending placement 03/14- No events, PT pending, likely placement 03/12:No events overnight 03/11:Admitted to floor in stable condition Pain:controlled Nausea: No Flatus: Yes Bowel Movement: Yes 03/14 Medications: Current Facility-Administered Medications: ??? acetaminophen (TYLENOL) tablet 1,000 mg, 1,000 mg, oral, Q6H AUDELIA, Chapo Perez Jr., MD, 1,000 mg at 03/15/19 1158 ??? albuterol HFA (PROVENTIL HFA,VENTOLIN HFA,PROAIR HFA) 90 mcg/actuation inhaler 2 puff, 2 puff, inhalation, Q6H PRN, Alvaro Ortez, DO ??? atorvastatin (LIPITOR) tablet 20 mg, 20 mg, oral, Daily, Chapo Perez Jr., MD, 20 mg at 03/15/19 0909 ??? baclofen (LIORESAL) tablet 10 mg, 10 mg, oral, TID PRN, Chapo Perez Jr., MD, 10 mg at 03/14/19 1518 ??? dextrose (GLUTOSE) 40 % gel 15 g, 15 g, oral, Q15 Min PRN OR dextrose (D10W) 10% bolus 250 mL, 250 mL, intravenous, Q15 Min PRN, Chapo Perez Jr., MD ??? doxycycline (VIBRAMYCIN) tablet/capsule 100 mg, 100 mg, oral, BID - special, Chapo Perez Jr., MD, 100 mg at 03/15/19 0523 ??? enoxaparin (LOVENOX) syringe 40 mg, 40 mg, subcutaneous, Q12H AUDELIA, Mireya Cruz NP, 40 mg at 03/15/19909 ??? finasteride (PROSCAR) tablet 5 mg, 5 mg, oral, Daily, Chapo Perez Jr., MD, 5 mg at 03/15/19908 ??? flecainide (TAMBOCOR) tablet 50 mg, 50 mg, oral, BID, Chapo Perez Jr., MD, 50 mg at 03/15/19908 ??? fluticasone propion-salmeterol (ADVAIR DISKUS) 100-50 mcg/dose diskus inhaler 1 puff, 1 puff, inhalation, BID, Alvaro Ortez, , 1 puff at 03/15/19909 ??? furosemide (LASIX) tablet 20 mg, 20 mg, oral, Daily, Tammie Soriano MD, 20 mg at 03/15/19908 ??? furosemide (LASIX) tablet 20 mg, 20 mg, oral, Daily PRN, Jessica Escamilla NP ??? glucagon injection 1 mg, 1 mg, intramuscular, Q30 Min PRN, Chapo Perez Jr., MD ??? insulin glargine (LANTUS) injection 10 Units, 10 Units, subcutaneous, Nightly, Mireya Cruz NP, 10 Units at 03/14/192120 ??? insulin lispro (HumaLOG) injection 1-2 Units, 1-2 Units, subcutaneous, Nightly, Mireya Cruz NP, 1 Units at 03/14/192120 ??? insulin lispro (HumaLOG) injection 1-3 Units, 1-3 Units, subcutaneous, TID with meals, Mireya Cruz NP, 2 Units at 03/15/19 1157 ??? metoprolol (LOPRESSOR) tablet 12.5 mg, 12.5 mg, oral, BID, Mireya Cruz NP, 12.5 mg at 03/15/19908 ??? oxyCODONE (ROXICODONE) tablet 5 mg, 5 mg, oral, Q4H PRN, Chapo Perez Jr., MD, 5 mg at 03/15/19 1314 ??? pantoprazole DR (PROTONIX) extended release tablet 40 mg, 40 mg, oral, Daily, Chapo Perez Jr., MD, 40 mg at 03/15/19 0909 ??? pregabalin (LYRICA) capsule 75 mg, 75 mg, oral, Q8H, Daquan Mendoza MD, 75 mg at 03/15/19 1314 ??? sodium chloride 0.9% flush 0.5-20 mL, 0.5-20 mL, intra-catheter, Q8H AUDELIA, Chapo Perez Jr., MD, 10 mL at 03/15/19 0523 ??? sodium chloride 0.9% flush 0.5-20 mL, 0.5-20 mL, intra-catheter, PRN, Chapo Smith MD ??? tamsulosin (FLOMAX) extended release capsule 0.4 mg, 0.4 mg, oral, Daily with dinner, Chapo Perez Jr., MD, 0.4 mg at 03/14/19 1743 ??? warfarin (COUMADIN) tablet 3 mg, 3 mg, oral, Daily-1800, Mireya Cruz NP Diet: Dietary Orders (From admission, onward) Start Ordered 03/12/19 0609 Adult Diet Restricted; Consistent Carbohydrate Diet effective now Question Answer Comment ([facility]) Diet type Restricted Diabetic: Consistent Carbohydrate 03/12/19 0608 Activity: As tolerated Is&Os: I/O last 2 completed shifts: In: - Out: 1300 [Urine:1300] I/O this shift: In: - Out: 300 [Urine:300] Physical Exam: 24hr Min/Max: Temp Min: 36.3 ??C (97.3 ??F) Max: 37.2 ??C (99 ??F) Pulse Min: 70 Max: 76 BP Min: 113/54 Max: 176/90 Resp Min: 16 Max: 20 SpO2 Min: 91 % Max: 98 % Vitals: 03/15/19 1355 BP: 113/54 Pulse: 72 Resp: 18 Temp: 37.2 ??C (99 ??F) SpO2: 93% Constitutional: well developed, well nourished, cooperative, no apparent distress and obese Head: normocephalic, without obvious abnormality, atraumatic Neurologic: alert and oriented x4 Chronic BLE neuropathy Eyes: conjunctivae/corneas clear. PERRL, EOMs intact HENT: mucous membranes moist Neck: supple, symmetrical, trachea midline Chest: normal appearance, no masses or tenderness Respiratory: normal chest rise and fall Cardiovascular: regular rate and rhythm Gastrointestinal: non-distended, soft non-tender and hernia present incisional Musculoskeletal: extremities normal, warm and well-perfused, no edema and LLE spinted, able to wiggle toes Skin: skin color, texture, turgor normal. No rashes or lesions Labs/Imaging: Recent Results (from the past 72 hour(s)) POCT glucose Collection Time: 03/12/19 5:43 PM Result Value Ref Range Glucose, POC, bld 185 70 - 199 mg/dL CBC with auto differential Collection Time: 03/12/19 6:59 PM Result Value Ref Range WBC 7.0 3.8 - 9.9 K/cumm Hgb 14.1 13.0 - 17.5 g/dL Hct 44.3 38.9 - 50.3 % Plt 289 150 - 400 K/cumm MPV 10.4 9.1 - 12.3 fL RBC 5.21 4.30 - 5.80 M/cumm MCV 85.0 81.3 - 96.4 fL MCH 27.1 27.1 - 33.3 pg MCHC 31.8 (L) 32.3 - 35.7 g/dL RDW CV 17.7 (H) 11.1 - 14.9 % RDW SD 54.5 (H) 35.7 - 48.1 fL NRBC abs 0.00 0.00 - 0.01 K/cumm Basic metabolic panel Collection Time: 03/12/19 6:59 PM Result Value Ref Range Sodium 138 135 - 145 mmol/L Potassium, pl 4.7 3.3 - 4.9 mmol/L Chloride 106 97 - 110 mmol/L CO2 25 22 - 32 mmol/L Anion gap 7 2 - 15 mmol/L BUN 17 8 - 25 mg/dL Creatinine 1.29 0.80 - 1.30 mg/dL Glucose 186 70 - 199 mg/dL Calcium 8.7 8.5 - 10.3 mg/dL Protime-INR Collection Time: 03/12/19 6:59 PM Result Value Ref Range PT 25.6 (H) 8.6 - 13.0 sec INR 2.33 (H) 0.80 - 1.20 aPTT Collection Time: 03/12/19 6:59 PM Result Value Ref Range aPTT 34.5 25.0 - 37.0 sec Differential, auto Collection Time: 03/12/19 6:59 PM Result Value Ref Range Neutrophil abs 4.1 1.7 - 6.5 K/cumm Imm gran abs 0.1 0.0 - 0.1 K/cumm Lymphocyte abs 1.2 0.8 - 3.3 K/cumm Monocyte abs 1.5 (H) 0.2 - 0.8 K/cumm Eosinophil abs 0.1 0.0 - 0.5 K/cumm Basophil abs 0.0 0.0 - 0.1 K/cumm Neutrophil pct 57.9 % Imm gran pct 1.0 % Lymphocyte pct 17.5 % Monocyte pct 22.0 % Eosinophil pct 1.0 % Basophil pct 0.6 % POCT glucose Collection Time: 03/12/19 8:31 PM Result Value Ref Range Glucose, POC, bld 191 70 - 199 mg/dL POCT glucose Collection Time: 03/13/19 8:11 AM Result Value Ref Range Glucose, POC, bld 153 70 - 199 mg/dL POCT glucose Collection Time: 03/13/19 12:25 PM Result Value Ref Range Glucose, POC, bld 212 (H) 70 - 199 mg/dL POCT glucose Collection Time: 03/13/19 5:25 PM Result Value Ref Range Glucose, POC, bld 223 (H) 70 - 199 mg/dL POCT glucose Collection Time: 03/13/19 8:08 PM Result Value Ref Range Glucose, POC, bld 233 (H) 70 - 199 mg/dL Protime-INR Collection Time: 03/13/19 8:09 PM Result Value Ref Range PT 28.1 (H) 8.6 - 13.0 sec INR 2.55 (H) 0.80 - 1.20 POCT glucose Collection Time: 03/14/19 8:16 AM Result Value Ref Range Glucose, POC, bld 179 70 - 199 mg/dL POCT glucose Collection Time: 03/14/19 11:30 AM Result Value Ref Range Glucose, POC, bld 218 (H) 70 - 199 mg/dL POCT glucose Collection Time: 08/12/19 4:33 PM Result Value Ref Range Glucose, POC, bld 267 (H) 70 - 199 mg/dL POCT glucose Collection Time: 03/14/19 7:56 PM Result Value Ref Range Glucose, POC, bld 224 (H) 70 - 199 mg/dL Protime-INR Collection Time: 03/15/19 12:29 AM Result Value Ref Range PT 34.0 (H) 8.6 - 13.0 sec INR 3.08 (H) 0.80 - 1.20 POCT glucose Collection Time: 03/15/19 7:56 AM Result Value Ref Range Glucose, POC, bld 173 70 - 199 mg/dL POCT glucose Collection Time: 03/15/19 11:47 AM Result Value Ref Range Glucose, POC, bld 216 (H) 70 - 199 mg/dL Xr Tibia Fibula Left 2 Views Result Date: 03/11/2019 1. Shi B fracture of the left fibula with intraarticular extension. 2. Avulsion fracture of the medial malleolus. 3. Medial clear space widening on stress views indicative of medial ligamentous injury. Dictated by: Juliet Sosa M.D. The radiology attending physician has personally reviewed this study, and had reviewed and/or edited this written report and agrees with it. Electronically signed by: Navin Edmond M.D. Xr Ankle Left 2 Views Result Date: 03/11/2019 1. Shi B fracture of the left fibula with intraarticular extension. 2. Avulsion fracture of the medial malleolus. 3. Medial clear space widening on stress views indicative of medial ligamentous injury. Dictated by: Juliet Sosa M.D. The radiology attending physician has personally reviewed this study, and had reviewed and/or edited this written report and agrees with it. Electronically signed by: Navin Edmond M.D. Xr Ankle Left 3 Or More Views Result Date: 03/11/2019 1. Post reduction with splint, with reestablished alignment of tibiotalar joint. 2. Redemonstrationof Shi B fracture of left fibula and avulsion fracture of medial malleolus. Dictated by: Sheila Cobb M.D. The radiology attending physician has personally reviewed this study, and had reviewed and/or edited this written report and agrees with it. Electronically signed by: Navin Emdond M.D. Xr Ankle Left 3 Or More Views Result Date: 03/11/2019 1. Shi B fracture of the left fibula with intraarticular extension. 2. Avulsion fracture of the medial malleolus. 3. Medial clear space widening on stress views indicative of medial ligamentous injury. Dictated by: Juliet Sosa M.D. The radiology attending physician has personally reviewed this study, and had reviewed and/or edited this written report and agrees with it. Electronically signed by: Navin Edmond M.D. Xr Foot Left 3 Or More Views Result Date: 03/11/2019 1. Shi B fracture of the left fibula with intraarticular extension. 2. Avulsion fracture of the medial malleolus. 3. Medial clear space widening on stress views indicative of medial ligamentous injury. Dictated by: Juliet Ssoa M.D. The radiology attending physician has personally reviewed this study, and had reviewed and/or edited this written report and agrees with it. Electronically signed by: Navin Edmond M.D. Xr Chest 1 Vw Portable Result Date: 03/11/2019 Comparison is made with chest radiograph dated 10/21/2016. Lung volumes are low with resultant crowding of bronchovascular markings. The lungs are clear of focal airspace disease. No pleural effusionor pneumothorax. Old Rib fractures are redemonstrated. No acute displaced fracture. Dictated by: Juliet Sosa M.D. The radiology attending physician has personally reviewed this study, and had reviewed and/or edited this written report and agrees with it. Electronically signed by: Navin Edmond M.D. Xr Pelvis 1 Or 2 Views Result Date: 03/11/2019 No acute fracture. Dictated by: Juliet Sosa M.D. The radiology attending physician has personally reviewed this study, and had reviewed and/or edited this written report and agrees with it. Electronically signed by: Navin Edmond M.D. Ct Ankle Left Wo Contrast Result Date: 03/11/2019 1. Bimalleolar left ankle fracture with acute on chronic deltoid ligament avulsion fracture and syndesmotic injury. 2. Diffuse edema throughout the soft tissues of the ankle. 3. Nonspecific global fatty atrophy of the left lower calf and foot muscles. Dictated by: Levy Zhu M.D. The radiology attending physician has personally reviewed this study, and had reviewed and/or edited this written report and agrees with it. Electronically signed by: Prakash Hinkle M.D. 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 #Acute pain -APAP q6 hrs, PRN oxy, home Lyrica continued, and home baclofen continued PRN ?? #COPD/HTN -Home inhalers continued - Lopressor continued - Lasix continued at home dose ?? #CKD -Creatinine 1.47 on admission (baseline) ?? #Afib/HO DVT and PE - Flecainide continued - Coumadin continued 03/13 - INR 2.3 on admission, no reversal used - 03/13: INR 2.5 ?? #DM - MDSSI +6 units - home regimen = 44 units lantus, 8 lispro TIDAC ?? 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 DVT ppx -Lovenox 40mg BID Dispo- rehab, pending placement Argenis Escamilla NP Cosigned by Cricket Tripp MD at 03/17/2019 1:37 PM CDT Associated attestation - Cricket Tripp MD - 03/17/2019 1:37 PM CDT I have seen and examined this patient in conjunction with the non-physician provider on the date ofservice as documented on the NPP note and have reviewed and confirmed the history. Assessment and Plan: 78M s/p fall with L trimal ankle fx - distal fibular fx - nonop per ortho, NWB; DM - SSI; Hx DVT/PE on coumadin - INR 3.08 - reduce home dose and f/up with PCP regarding appropriate dosing; PT/OT; On my exam: LLE splinted, NV intact, abd soft, NAD, A&Ox3, resting comfortably in bed. Cricket Tripp MD Section of Acute and Critical Care Surgery * Liset Hamilton, PT - 03/14/2019 3:45 PM CDT As supervising physical therapist I agree and cosign all documentation provided on this date by physical therapy student, Wally ABBOTT. Liset Hamilton, PT 03/14/19 3:45 PM * Jessica Escamilla, [employer] LEAD - 03/14/2019 1:58 PM CDT [facility] Geriatric Trauma Surgery Daily Progress Note Admit: 03/11/2019 12:35 PM Date: March 14, 2019 Length of Stay: 3 Attending: Alvaro Ortez DO POD:* No surgery date entered * Procedure(s): OPEN REDUCTION INTERNAL FIXATION - ANKLE History: Neal Amaro is a 78 y.o. 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 He denied head trauma or LOC. Imaging at the OSH demonstrated a left ankle fracture that was attempted reduction. Physical exam on arrival revealed GCS 15, splinted LLE with intact DP and chronic sensory loss. Further imaging was negative for any other acute injuries. Orthopedic trauma was consulted and pt was admitted to the trauma floor. ?? Interval History: 03/14- No events, PT pending, likely placement 03/12:No events overnight 03/11:Admitted to floor in stable condition Pain:controlled Nausea: No Flatus: Yes Bowel Movement: No Medications: Current Facility-Administered Medications: ??? acetaminophen (TYLENOL) tablet 1,000 mg, 1,000 mg, oral, Q6H AUDELIA, Chapo Perez Jr., MD, 1,000 mg at 03/14/19 1130 ??? albuterol HFA (PROVENTIL HFA,VENTOLIN HFA,PROAIR HFA) 90 mcg/actuation inhaler 2 puff, 2 puff, inhalation, Q6H PRN, Alvaro Ortez, DO ??? atorvastatin (LIPITOR) tablet 20 mg, 20 mg, oral, Daily, Chapo Perez Jr., MD, 20 mg at 03/14/19821 ??? baclofen (LIORESAL) tablet 10 mg, 10 mg, oral, TID PRN, Chapo Perez Jr., MD, 10 mg at 03/14/19 0446 ??? dextrose (GLUTOSE) 40 % gel 15 g, 15 g, oral, Q15 Min PRN OR dextrose (D10W) 10% bolus 250 mL, 250 mL, intravenous, Q15 Min PRN, Chapo Perez Jr., MD ??? doxycycline (VIBRAMYCIN) tablet/capsule 100 mg, 100 mg, oral, BID - special, Chapo Perez Jr., MD, 100 mg at 03/14/19 0459 ??? enoxaparin (LOVENOX) syringe 40 mg, 40 mg, subcutaneous, Q12H AUDELIA, Mireya Cruz NP, 40 mg at 03/14/19820 ??? finasteride (PROSCAR) tablet 5 mg, 5 mg, oral, Daily, Chapo Perez Jr., MD, 5 mg at 03/14/19821 ??? flecainide (TAMBOCOR) tablet 50 mg, 50 mg, oral, BID, Chapo Perez Jr., MD, 50 mg at 08/12/19 0821 ??? fluticasone propion-salmeterol (ADVAIR DISKUS) 100-50 mcg/dose diskus inhaler 1 puff, 1 puff, inhalation, BID, Alvaro Ortez DO, 1 puff at 03/14/19 1130 ??? furosemide (LASIX) tablet 20 mg, 20 mg, oral, Daily, Tammie Soriano MD, 20 mg at 03/14/19 08 ??? glucagon injection 1 mg, 1 mg, intramuscular, Q30 Min PRN, Chapo Perez Jr., MD ??? insulin glargine (LANTUS) injection 10 Units, 10 Units, subcutaneous, Nightly, Mireya Cruz NP, 10 Units at 03/13/192009 ??? insulin lispro (HumaLOG) injection 1-2 Units, 1-2 Units, subcutaneous, Nightly, Mireya Cruz CIT[employer]X LEAD, 1 Units at 03/13/192008 ??? insulin lispro (HumaLOG) injection 1-3 Units, 1-3 Units, subcutaneous, TID with meals, Mireya Cruz NP, 2 Units at 03/14/19 1130 ??? metoprolol (LOPRESSOR) tablet 12.5 mg, 12.5 mg, oral, BID, Mireya Cruz NP, 12.5 mg at 03/14/19 0822 ??? oxyCODONE (ROXICODONE) tablet 5 mg, 5 mg, oral, Q4H PRN, Chapo Perez Jr., MD, 5 mg at 03/14/19 0446 ??? pantoprazole DR (PROTONIX) extended release tablet 40 mg, 40 mg, oral, Daily, Chapo Perez Jr., MD, 40 mg at 03/14/19 0821 ??? pregabalin (LYRICA) capsule 75 mg, 75 mg, oral, Q8H, Daquan Mendoza MD, 75 mg at 03/14/19 0459 ??? sodium chloride 0.9% flush 0.5-20 mL, 0.5-20 mL, intra-catheter, Q8H AUDELIA, Chapo Perez Jr., MD, 10 mL at 03/14/19 0500 ??? sodium chloride 0.9% flush 0.5-20 mL, 0.5-20 mL, intra-catheter, PRN, Chapo Smith MD ??? tamsulosin (FLOMAX) extended release capsule 0.4 mg, 0.4 mg, oral, Daily with dinner, Chapo Perez Jr., MD, 0.4 mg at 03/12/19 1706 ??? warfarin (COUMADIN) tablet 5 mg, 5 mg, oral, Daily-1800, Tammie Soriano MD, 5 mg at 03/13/19 1834 Diet: Dietary Orders (From admission, onward) Start Ordered 03/12/19 0609 Adult Diet Restricted; Consistent Carbohydrate Diet effective now Question Answer Comment ([facility]) Diet type Restricted Diabetic: Consistent Carbohydrate 03/12/19 0608 Activity: As tolerated Is&Os: I/O last 2 completed shifts: In: - Out: 300 [Urine:300] I/O this shift: In: - Out: 500 [Urine:500] Physical Exam: 24hr Min/Max: Temp Min: 36.5 ??C (97.7 ??F) Max: 36.9 ??C (98.4 ??F) Pulse Min: 69 Max: 73 BP Min: 125/50 Max: 152/74 Resp Min: 18 Max: 20 SpO2 Min: 92 % Max: 95 % Vitals: 03/14/19 1133 BP: 125/50 Pulse: 69 Resp: 18 Temp: 36.7 ??C (98.1 ??F) SpO2: 92% Constitutional: well developed, well nourished, cooperative, no apparent distress and obese Head: normocephalic, without obvious abnormality, atraumatic Neurologic: alert and oriented x4 Chronic BLE neuropathy L>R, decreased LLE motor 2/2 to pain Eyes: conjunctivae/corneas clear. PERRL, EOMs intact HENT: mucous membranes moist Neck: supple, symmetrical, trachea midline Chest: normal appearance, no masses or tenderness Respiratory: clear to auscultation bilaterally and normal chest rise and fall Cardiovascular: regular rate and rhythm, S1, S2 normal, no murmur, click, rub or gallop and distantheart sounds Gastrointestinal: non-distended, soft non-tender and hernia present incisional Musculoskeletal: extremities normal, warm and well-perfused, no edema and LLE spinted, able to wiggle toes Pulses: DP: left diminished Skin: skin color, texture, turgor normal. No rashes or lesions Labs/Imaging: Recent Results (from the past 72 hour(s)) Urinalysis reflex to microscopic and culture Urine Collection Time: 03/11/19 2:17 PM Result Value Ref Range Color, ur Yellow Yellow Clarity, ur Clear Clear Specific gravity, ur 1.019 1.010 - 1.025 pH, urine 5 Protein, ur ql Negative Negative Glucose, ur ql Negative Negative Ketones, ur Negative Negative Bilirubin, ur Negative Negative Blood, ur 1+ (A) Negative Urobilinogen, ur <2.0 <2.0 mg/dL Nitrite, ur Negative Negative Leukocyte esterase, ur Negative Negative Urinalysis, microscopic only Collection Time: 03/11/19 2:17 PM Result Value Ref Range WBC, ur 0-5 0 - 5 /HPF RBC, ur 11-20 (A) 0 - 2 /HPF Epithelial cells, squamous, ur 1-5 0 - 5 /HPF Mucous, ur Present (A) POCT glucose Collection Time: 03/11/19 4:14 PM Result Value Ref Range Glucose, POC, bld 87 70 - 199 mg/dL POCT glucose Collection Time: 03/11/19 8:09 PM Result Value Ref Range Glucose, POC, bld 118 70 - 199 mg/dL Prepare RBC: 2 Units Collection Time: 03/11/19 8:17 PM Result Value Ref Range Product code C7414G32 Unit Number [id number] Product Blood Type APOS Dispense Status RETURNED Product code [id number] Unit Number [id number] Product Blood Type APOS Dispense Status RETURNED POCT glucose Collection Time: 03/11/19 10:33 PM Result Value Ref Range Glucose, POC, bld 102 70 - 199 mg/dL Protime-INR Collection Time: 03/11/19 11:57 PM Result Value Ref Range PT 24.5 (H) 8.6 - 13.0 sec INR 2.23 (H) 0.80 - 1.20 Protime-INR Collection Time: 03/12/19 5:04 AM Result Value Ref Range PT 25.0 (H) 8.6 - 13.0 sec INR 2.28 (H) 0.80 - 1.20 POCT glucose Collection Time: 03/12/19 8:12 AM Result Value Ref Range Glucose, POC, bld 117 70 - 199 mg/dL POCT glucose Collection Time: 03/12/19 11:54 AM Result Value Ref Range Glucose, POC, bld 132 70 - 199 mg/dL POCT glucose Collection Time: 03/12/19 5:43 PM Result Value Ref Range Glucose, POC, bld 185 70 - 199 mg/dL CBC with auto differential Collection Time: 03/12/19 6:59 PM Result Value Ref Range WBC 7.0 3.8 - 9.9 K/cumm Hgb 14.1 13.0 - 17.5 g/dL Hct 44.3 38.9 - 50.3 % Plt 289 150 - 400 K/cumm MPV 10.4 9.1 - 12.3 fL RBC 5.21 4.30 - 5.80 M/cumm MCV 85.0 81.3 - 96.4 fL MCH 27.1 27.1 - 33.3 pg MCHC 31.8 (L) 32.3 - 35.7 g/dL RDW CV 17.7 (H) 11.1 - 14.9 % RDW SD 54.5 (H) 35.7 - 48.1 fL NRBC abs 0.00 0.00 - 0.01 K/cumm Basic metabolic panel Collection Time: 03/12/19 6:59 PM Result Value Ref Range Sodium 138 135 - 145 mmol/L Potassium, pl 4.7 3.3 - 4.9 mmol/L Chloride 106 97 - 110 mmol/L CO2 25 22 - 32 mmol/L Anion gap 7 2 - 15 mmol/L BUN 17 8 - 25 mg/dL Creatinine 1.29 0.80 - 1.30 mg/dL Glucose 186 70 - 199 mg/dL Calcium 8.7 8.5 - 10.3 mg/dL Protime-INR Collection Time: 03/12/19 6:59 PM Result Value Ref Range PT 25.6 (H) 8.6 - 13.0 sec INR 2.33 (H) 0.80 - 1.20 aPTT Collection Time: 03/12/19 6:59 PM Result Value Ref Range aPTT 34.5 25.0 - 37.0 sec Differential, auto Collection Time: 03/12/19 6:59 PM Result Value Ref Range Neutrophil abs 4.1 1.7 - 6.5 K/cumm Imm gran abs 0.1 0.0 - 0.1 K/cumm Lymphocyte abs 1.2 0.8 - 3.3 K/cumm Monocyte abs 1.5 (H) 0.2 - 0.8 K/cumm Eosinophil abs 0.1 0.0 - 0.5 K/cumm Basophil abs 0.0 0.0 - 0.1 K/cumm Neutrophil pct 57.9 % Imm gran pct 1.0 % Lymphocyte pct 17.5 % Monocyte pct 22.0 % Eosinophil pct 1.0 % Basophil pct 0.6 % POCT glucose Collection Time: 03/12/19 8:31 PM Result Value Ref Range Glucose, POC, bld 191 70 - 199 mg/dL POCT glucose Collection Time: 03/13/19 8:11 AM Result Value Ref Range Glucose, POC, bld 153 70 - 199 mg/dL POCT glucose Collection Time: 03/13/19 12:25 PM Result Value Ref Range Glucose, POC, bld 212 (H) 70 - 199 mg/dL POCT glucose Collection Time: 03/13/19 5:25 PM Result Value Ref Range Glucose, POC, bld 223 (H) 70 - 199 mg/dL POCT glucose Collection Time: 03/13/19 8:08 PM Result Value Ref Range Glucose, POC, bld 233 (H) 70 - 199 mg/dL Protime-INR Collection Time: 03/13/19 8:09 PM Result Value Ref Range PT 28.1 (H) 8.6 - 13.0 sec INR 2.55 (H) 0.80 - 1.20 POCT glucose Collection Time: 03/14/19 8:16 AM Result Value Ref Range Glucose, POC, bld 179 70 - 199 mg/dL POCT glucose Collection Time: 03/14/19 11:30 AM Result Value Ref Range Glucose, POC, bld 218 (H) 70 - 199 mg/dL Xr Tibia Fibula Left 2 Views Result Date: 03/11/2019 1. Shi B fracture of the left fibula with intraarticular extension. 2. Avulsion fracture of the medial malleolus. 3. Medial clear space widening on stress views indicative of medial ligamentous injury. Dictated by: Juliet Sosa M.D. The radiology attending physician has personally reviewed this study, and had reviewed and/or edited this written report and agrees with it. Electronically signed by: Navin Edmond M.D. Xr Ankle Left 2 Views Result Date: 03/11/2019 1. Shi B fracture of the left fibula with intraarticular extension. 2. Avulsion fracture of the medial malleolus. 3. Medial clear space widening on stress views indicative of medial ligamentous injury. Dictated by: Juliet Sosa M.D. The radiology attending physician has personally reviewed this study, and had reviewed and/or edited this written report and agrees with it. Electronically signed by: Navin Edmond M.D. Xr Ankle Left 3 Or More Views Result Date: 03/11/2019 1. Post reduction with splint, with reestablished alignment of tibiotalar joint. 2. Redemonstrationof Shi B fracture of left fibula and avulsion fracture of medial malleolus. Dictated by: Sheila Cobb M.D. The radiology attending physician has personally reviewed this study, and had reviewed and/or edited this written report and agrees with it. Electronically signed by: Navin Edmond M.D. Xr Ankle Left 3 Or More Views Result Date: 03/11/2019 1. Shi B fracture of the left fibula with intraarticular extension. 2. Avulsion fracture of the medial malleolus. 3. Medial clear space widening on stress views indicative of medial ligamentous injury. Dictated by: Juliet Sosa M.D. The radiology attending physician has personally reviewed this study, and had reviewed and/or edited this written report and agrees with it. Electronically signed by: Navin Edmond M.D. Xr Foot Left 3 Or More Views Result Date: 03/11/2019 1. Shi B fracture of the left fibula with intraarticular extension. 2. Avulsion fracture of the medial malleolus. 3. Medial clear space widening on stress views indicative of medial ligamentous injury. Dictated by: Juliet Sosa M.D. The radiology attending physician has personally reviewed this study, and had reviewed and/or edited this written report and agrees with it. Electronically signed by: Navin Edmond M.D. Xr Chest 1 Vw Portable Result Date: 03/11/2019 Comparison is made with chest radiograph dated 10/21/2016. Lung volumes are low with resultant crowding of bronchovascular markings. The lungs are clear of focal airspace disease. No pleural effusionor pneumothorax. Old Rib fractures are redemonstrated. No acute displaced fracture. Dictated by: Juliet Sosa M.D. The radiology attending physician has personally reviewed this study, and had reviewed and/or edited this written report and agrees with it. Electronically signed by: Navin Edmond M.D. Xr Pelvis 1 Or 2 Views Result Date: 03/11/2019 No acute fracture. Dictated by: Juliet Sosa M.D. The radiology attending physician has personally reviewed this study, and had reviewed and/or edited this written report and agrees with it. Electronically signed by: Navin Edmond M.D. Ct Ankle Left Wo Contrast Result Date: 03/11/2019 1. Bimalleolar left ankle fracture with acute on chronic deltoid ligament avulsion fracture and syndesmotic injury. 2. Diffuse edema throughout the soft tissues of the ankle. 3. Nonspecific global fatty atrophy of the left lower calf and foot muscles. Dictated by: Levy Zhu M.D. The radiology attending physician has personally reviewed this study, and had reviewed and/or edited this written report and agrees with it. Electronically signed by: Prakash Hinkle M.D. 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 #Acute pain -APAP q6 hrs, PRN oxy, home Lyrica continued, and home baclofen continued PRN ?? #COPD/HTN -Home inhalers continued - Lopressor continued - Lasix continued at home dose ?? #CKD -Creatinine 1.47 on admission (baseline) ?? #Afib/HO DVT and PE - Flecainide continued - Coumadin continued 03/13 - INR 2.3 on admission, no reversal used - 03/13: INR 2.5 ?? #DM - MDSSI +6 units - home regimen = 44 units lantus, 8 lispro TIDAC ?? 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 DVT ppx -Lovenox 40mg BID Dispo- rehab Argenis Escamilla NP Cosigned by Cricket Tripp MD at 03/14/2019 8:51 PM CDT Associated attestation - Cricket Tripp MD - 03/14/2019 8:51 PM CDT I have seen and examined this patient in conjunction with the non-physician provider on the date ofservice as documented on the NPP note and have reviewed and confirmed the history. Assessment and Plan: 78M s/p fall with L trimal ankle fx - distal fibular fx - nonop per ortho, NWB; DM - SSI; Hx DVT/PE on coumadin - INR 2.3 on arrival - resume a/c given nonop mgmt- INR 2.5; PT/OT;On my exam: LLE splinted, NV intact, abd soft, NAD, A&Ox3. Cricket Tripp MD Section of Acute and Critical Care Surgery * Amanda Roxane, GARMENT PATTERNMAKER - 03/14/2019 12:49 PM CDT 03/14/19 1248 Referral Data Referral Source Physician Referral Reason Discharge Planning;Psychosocial assessment Patient Information Primary Caregiver Self Support System Family members;Spouse/Significant Other (Spouse Nata Amaro [phone]) Legal Information Have you reviewed your Advance Directive and is it valid for this stay? No Advance Directive Patient does not have advance directive Prior Level of Functioning Durable Medical Equipment None Living Arrangement Lives with someone;House Disability (visually impaired) Behavior Oriented Income Information Income Source Shelter/Pension Potential Discharge Needs Discharge Potential SNF Rehab Potential SNF Anticipated discharge level of care Half-Way Facility Communications Half-Way Facility list given to patient/customer account representative? Yes Fiduciary Responsibility Patient/Designated decision maker was informed of [facility] fiduciary relationship as necessary Health Insurance Coverage: [facility] Social History: Prior to admission the patient was living at home independent. Pt lives with Amauri Amaro [phone]. Pt reports that he is able to completed ADLs w/o assistance. Pt isretired. Pt has significant family support provided by family. Problem: Patient identified as not having enough support at home to return safely. PT/OT recs for SNF. Goal: SW will work on placement assistance for discharge planning purposes. Additional Information: Social work met with the patient/family to obtain assessment information and discuss d/c planning needs. Social work informed the patient/family that d/c recommendations indicate transfer to SNF rehab. Social work provided information on the rehabilitation process and provided information on SNF rehab. Social work provided information on [facility] Care and emphasized the importance of continuity of care. Social work discussed d/c options to meet the patient's needs and provided a printed list of facilities for review. Patient/family are agreeable to plan and prefer placement at [facility] Bed Unit. Pt reports that he has been to [facility] in the past. Patient is able to obtain prescription medications via insurance and will likely require assistance with d/c transport. [employer] referral will be sent to [facility] per social work protocol, additional referrals will be sent prn per patient/family request. Impressions: Patient was sitting in bed at the time of the assessment. Pt is A&Ox4. Pt pleasant/compliant with intervention. Based on a comprehensive family assessment, assistance with instrumental activities of daily livingafter discharge will be provided by snf Through the course of our work I determined that snf possesses the skill and ability to provide andmonitor the care of the patient when he or she returns home. snf has the capacity to provide/monitor/arrange for the care of the patient. Finally, we determined that snf has the knowledge of available resources and that combining them with their existing resources will suffice to sustain and care for the patient when he or she returns home. The treatment team is aware of this information. All arein agreement with the aftercare plan. Social Work Plan: [employer] referral will be sent to [facility]. Roxane Patel LMSW [facility] Social Work [phone] * Leydi Maloney RN - 03/14/2019 11:54 AM CDT 03/14/19 5755 Patient Information Primary Caregiver Self Support System Spouse/Significant Other Support system contact info (name, phone, availablity) spouse Nata Amaro [phone] Prior Level of Functioning Durable Medical Equipment Cane (single prong) Living Arrangement Lives with someone (lives with spouse) Behavior Oriented Potential Discharge Needs Anticipated discharge level of care Acute Rehab Communications Fiduciary Responsibility Patient/Designated decision maker was informed of [facility] fiduciary relationship as necessary Impression: fall, ankle fracture Additional Information/Options Discussed: Explained role and purpose of CM. Demographics verified with face sheet. PCP verified as Jessica Hinkle. Plan Includes: Anticipate discharge to rehab per therapies recommendation. Social work following for placement assistance upon discharge. Case management will continue to follow. Insurance verified as: [facility] [employer] Admit Source: transfer from OSH Problem/Goal: Patient awaits further evaluation for medical discharge needs and home needs. CM willassist patient with home needs as indicated and identified for safe discharge planning * Tammie Soriano MD - 03/13/2019 8:00 AM CDT [facility] Geriatric Trauma Surgery Daily Progress Note Admit: 03/11/2019 12:35 PM Date: March 13, 2019 Length of Stay: 2 Attending: Alvaro Ortez DO POD:* No surgery date entered * Procedure(s): OPEN REDUCTION INTERNAL FIXATION - ANKLE History: Neal Amaro is a 78 y.o. 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 He denied head trauma or LOC. Imaging at the OSH demonstrated a left ankle fracture that was attempted reduction. Physical exam on arrival revealed GCS 15, splinted LLE with intact DP and chronic sensory loss. Further imaging was negative for any other acute injuries. Orthopedic trauma was consulted and pt was admitted to the trauma floor. ?? Interval History: Hemodynamically stable, afebrile. Adequate UOP 1L. Pending Placement for rehab. Pain:controlled Nausea: No Flatus: Yes Bowel Movement: No Medications: Current Facility-Administered Medications: ??? acetaminophen (TYLENOL) tablet 1,000 mg, 1,000 mg, oral, Q6H AUDELIA, Chapo Perez Jr., MD, 1,000 mg at 03/13/19515 ??? albuterol HFA (PROVENTIL HFA,VENTOLIN HFA,PROAIR HFA) 90 mcg/actuation inhaler 2 puff, 2 puff, inhalation, Q6H PRN, Alvaro Ortez, DO ??? atorvastatin (LIPITOR) tablet 20 mg, 20 mg, oral, Daily, Chapo Perez Jr., MD, 20 mg at 03/12/19828 ??? baclofen (LIORESAL) tablet 10 mg, 10 mg, oral, TID PRN, Chapo Perez Jr., MD, 10 mg at 03/13/1916 ??? dextrose (GLUTOSE) 40 % gel 15 g, 15 g, oral, Q15 Min PRN OR dextrose (D10W) 10% bolus 250 mL, 250 mL, intravenous, Q15 Min PRN, Chapo Perez Jr., MD ??? doxycycline (VIBRAMYCIN) tablet/capsule 100 mg, 100 mg, oral, BID - special, Chapo Perez Jr., MD, 100 mg at 03/13/1915 ??? enoxaparin (LOVENOX) syringe 40 mg, 40 mg, subcutaneous, Q12H AUDELIA, Mireya Cruz, [employer], 40 mg at 03/12/192031 ??? finasteride (PROSCAR) tablet 5 mg, 5 mg, oral, Daily, Chapo Perez Jr., MD, 5 mg at 03/12/19827 ??? flecainide (TAMBOCOR) tablet 50 mg, 50 mg, oral, BID, Chapo Perez Jr., MD, 50 mg at 03/12/192031 ??? fluticasone propion-salmeterol (ADVAIR DISKUS) 100-50 mcg/dose diskus inhaler 1 puff, 1 puff, inhalation, BID, Alvaro Ortez DO, 1 puff at 03/12/192035 ??? furosemide (LASIX) tablet 20 mg, 20 mg, oral, Daily, Tammie Soriano MD, 20 mg at 03/12/192031 ??? glucagon injection 1 mg, 1 mg, intramuscular, Q30 Min PRN, Chapo Perez Jr., MD ??? insulin glargine (LANTUS) injection 10 Units, 10 Units, subcutaneous, Nightly, Mireya Cruz, [employer], 10 Units at 03/12/192031 ??? insulin lispro (HumaLOG) injection 1-2 Units, 1-2 Units, subcutaneous, Nightly, Mireya Cruz, [employer] ??? insulin lispro (HumaLOG) injection 1-3 Units, 1-3 Units, subcutaneous, TID with meals, Mireya Cruz NP, 1 Units at 03/12/196 ??? metoprolol (LOPRESSOR) tablet 12.5 mg, 12.5 mg, oral, BID, Mireya Cruz, RASHAAD, 12.5 mg at 03/12/192033 ??? oxyCODONE (ROXICODONE) tablet 5 mg, 5 mg, oral, Q4H PRN, Chapo Perez Jr., MD, 5 mg at 03/13/19 0516 ??? pantoprazole DR (PROTONIX) extended release tablet 40 mg, 40 mg, oral, Daily, Chapo Salas Jr., MD, 40 mg at 03/12/19 0828 ??? pregabalin (LYRICA) capsule 75 mg, 75 mg, oral, Q8H, Daquan Mendoza MD, 75 mg at 03/13/19 0527 ??? sodium chloride 0.9% flush 0.5-20 mL, 0.5-20 mL, intra-catheter, Q8H AUDELIA, Chapo Perez Jr., MD, 10 mL at 03/13/19 0518 ??? sodium chloride 0.9% flush 0.5-20 mL, 0.5-20 mL, intra-catheter, PRN, Chapo Smith MD ??? tamsulosin (FLOMAX) extended release capsule 0.4 mg, 0.4 mg, oral, Daily with dinner, Chapo Perez Jr., MD, 0.4 mg at 03/12/19 1706 ??? warfarin (COUMADIN) tablet 5 mg, 5 mg, oral, Daily-1800, Tammie Soriano MD, 5 mg at 03/12/192032 Diet: Dietary Orders (From admission, onward) Start Ordered 03/12/19 0609 Adult Diet Restricted; Consistent Carbohydrate Diet effective now Question Answer Comment ([facility]) Diet type Restricted Diabetic: Consistent Carbohydrate 03/12/19 0608 Activity: As tolerated Is&Os: I/O last 2 completed shifts: In: - Out: 1000 [Urine:1000] No intake/output data recorded. Physical Exam: 24hr Min/Max: Temp Min: 36.4 ??C (97.5 ??F) Max: 37 ??C (98.6 ??F) Pulse Min: 68 Max: 72 BP Min: 120/66 Max: 170/72 Resp Min: 16 Max: 20 SpO2 Min: 91 % Max: 96 % Vitals: 03/13/19 0404 BP: 121/66 Pulse: 69 Resp: 20 Temp: 36.9 ??C (98.4 ??F) SpO2: 95% Constitutional: well developed, well nourished, cooperative, no apparent distress and obese Head: normocephalic, without obvious abnormality, atraumatic Neurologic: alert and oriented x4 Chronic BLE neuropathy L>R, decreased LLE motor 2/2 to pain Eyes: conjunctivae/corneas clear. PERRL, EOMs intact HENT: mucous membranes moist Neck: supple, symmetrical, trachea midline Chest: normal appearance, no masses or tenderness Respiratory: clear to auscultation bilaterally and normal chest rise and fall Cardiovascular: regular rate and rhythm, S1, S2 normal, no murmur, click, rub or gallop and distantheart sounds Gastrointestinal: non-distended, soft non-tender and hernia present incisional Musculoskeletal: extremities normal, warm and well-perfused, no edema and LLE spinted, able to wiggle toes Pulses: DP: left diminished Skin: skin color, texture, turgor normal. No rashes or lesions Labs/Imaging: Recent Results (from the past 72 hour(s)) POCT glucose Collection Time: 03/11/19 12:41 PM Result Value Ref Range Glucose, POC, bld 95 70 - 199 mg/dL CBC with auto differential Collection Time: 03/11/19 12:48 PM Result Value Ref Range WBC 8.7 3.8 - 9.9 K/cumm Hgb 15.2 13.0 - 17.5 g/dL Hct 47.3 38.9 - 50.3 % Plt 323 150 - 400 K/cumm MPV 9.9 9.1 - 12.3 fL RBC 5.60 4.30 - 5.80 M/cumm MCV 84.5 81.3 - 96.4 fL MCH 27.1 27.1 - 33.3 pg MCHC 32.1 (L) 32.3 - 35.7 g/dL RDW CV 18.9 (H) 11.1 - 14.9 % RDW SD 55.8 (H) 35.7 - 48.1 fL NRBC abs 0.00 0.00 - 0.01 K/cumm Basic metabolic panel Collection Time: 03/11/19 12:48 PM Result Value Ref Range Sodium 144 135 - 145 mmol/L Potassium, pl 4.6 3.3 - 4.9 mmol/L Chloride 109 97 - 110 mmol/L CO2 28 22 - 32 mmol/L Anion gap 7 2 - 15 mmol/L BUN 16 8 - 25 mg/dL Creatinine 1.47 (H) 0.80 - 1.30 mg/dL Glucose 106 70 - 199 mg/dL Calcium 9.0 8.5 - 10.3 mg/dL Protime-INR Collection Time: 03/11/19 12:48 PM Result Value Ref Range PT 25.0 (H) 8.6 - 13.0 sec INR 2.28 (H) 0.80 - 1.20 aPTT Collection Time: 03/11/19 12:48 PM Result Value Ref Range aPTT 34.5 25.0 - 37.0 sec Type and screen Collection Time: 03/11/19 12:48 PM Result Value Ref Range Sanju, indirect Negative ABO Rh A Positive Differential, auto Collection Time: 03/11/19 12:48 PM Result Value Ref Range Neutrophil abs 5.8 1.7 - 6.5 K/cumm Imm gran abs 0.0 0.0 - 0.1 K/cumm Lymphocyte abs 1.5 0.8 - 3.3 K/cumm Monocyte abs 1.2 (H) 0.2 - 0.8 K/cumm Eosinophil abs 0.1 0.0 - 0.5 K/cumm Basophil abs 0.0 0.0 - 0.1 K/cumm Neutrophil pct 66.8 % Imm gran pct 0.6 % Lymphocyte pct 17.4 % Monocyte pct 13.3 % Eosinophil pct 1.4 % Basophil pct 0.5 % Hemoglobin A1c Collection Time: 03/11/19 12:48 PM Result Value Ref Range Hgb A1C 7.5 (H) 4.0 - 5.6 % Estimated Average Glucose 169 mg/dL Lipid panel Collection Time: 03/11/19 12:48 PM Result Value Ref Range Cholesterol 137 30 - 199 mg/dL Triglycerides 83 <=149 mg/dL HDL 41 >=40 mg/dL LDL, calculated 79 <=129 mg/dL Non-HDL Cholesterol 96 mg/dL Chol/HDL ratio 3 Urinalysis reflex to microscopic and culture Urine Collection Time: 03/11/19 2:17 PM Result Value Ref Range Color, ur Yellow Yellow Clarity, ur Clear Clear Specific gravity, ur 1.019 1.010 - 1.025 pH, urine 5 Protein, ur ql Negative Negative Glucose, ur ql Negative Negative Ketones, ur Negative Negative Bilirubin, ur Negative Negative Blood, ur 1+ (A) Negative Urobilinogen, ur <2.0 <2.0 mg/dL Nitrite, ur Negative Negative Leukocyte esterase, ur Negative Negative Urinalysis, microscopic only Collection Time: 03/11/19 2:17 PM Result Value Ref Range WBC, ur 0-5 0 - 5 /HPF RBC, ur 11-20 (A) 0 - 2 /HPF Epithelial cells, squamous, ur 1-5 0 - 5 /HPF Mucous, ur Present (A) POCT glucose Collection Time: 03/11/19 4:14 PM Result Value Ref Range Glucose, POC, bld 87 70 - 199 mg/dL POCT glucose Collection Time: 03/11/19 8:09 PM Result Value Ref Range Glucose, POC, bld 118 70 - 199 mg/dL Prepare RBC: 2 Units Collection Time: 03/11/19 8:17 PM Result Value Ref Range Product code [id number] Unit Number [id number] Product Blood Type APOS Dispense Status RETURNED Product code [id number] Unit Number [id number] Product Blood Type APOS Dispense Status RETURNED POCT glucose Collection Time: 03/11/19 10:33 PM Result Value Ref Range Glucose, POC, bld 102 70 - 199 mg/dL Protime-INR Collection Time: 03/11/19 11:57 PM Result Value Ref Range PT 24.5 (H) 8.6 - 13.0 sec INR 2.23 (H) 0.80 - 1.20 Protime-INR Collection Time: 03/12/19 5:04 AM Result Value Ref Range PT 25.0 (H) 8.6 - 13.0 sec INR 2.28 (H) 0.80 - 1.20 POCT glucose Collection Time: 03/12/19 8:12 AM Result Value Ref Range Glucose, POC, bld 117 70 - 199 mg/dL POCT glucose Collection Time: 03/12/19 11:54 AM Result Value Ref Range Glucose, POC, bld 132 70 - 199 mg/dL POCT glucose Collection Time: 03/12/19 5:43 PM Result Value Ref Range Glucose, POC, bld 185 70 - 199 mg/dL CBC with auto differential Collection Time: 03/12/19 6:59 PM Result Value Ref Range WBC 7.0 3.8 - 9.9 K/cumm Hgb 14.1 13.0 - 17.5 g/dL Hct 44.3 38.9 - 50.3 % Plt 289 150 - 400 K/cumm MPV 10.4 9.1 - 12.3 fL RBC 5.21 4.30 - 5.80 M/cumm MCV 85.0 81.3 - 96.4 fL MCH 27.1 27.1 - 33.3 pg MCHC 31.8 (L) 32.3 - 35.7 g/dL RDW CV 17.7 (H) 11.1 - 14.9 % RDW SD 54.5 (H) 35.7 - 48.1 fL NRBC abs 0.00 0.00 - 0.01 K/cumm Basic metabolic panel Collection Time: 03/12/19 6:59 PM Result Value Ref Range Sodium 138 135 - 145 mmol/L Potassium, pl 4.7 3.3 - 4.9 mmol/L Chloride 106 97 - 110 mmol/L CO2 25 22 - 32 mmol/L Anion gap 7 2 - 15 mmol/L BUN 17 8 - 25 mg/dL Creatinine 1.29 0.80 - 1.30 mg/dL Glucose 186 70 - 199 mg/dL Calcium 8.7 8.5 - 10.3 mg/dL Protime-INR Collection Time: 03/12/19 6:59 PM Result Value Ref Range PT 25.6 (H) 8.6 - 13.0 sec INR 2.33 (H) 0.80 - 1.20 aPTT Collection Time: 03/12/19 6:59 PM Result Value Ref Range aPTT 34.5 25.0 - 37.0 sec Differential, auto Collection Time: 03/12/19 6:59 PM Result Value Ref Range Neutrophil abs 4.1 1.7 - 6.5 K/cumm Imm gran abs 0.1 0.0 - 0.1 K/cumm Lymphocyte abs 1.2 0.8 - 3.3 K/cumm Monocyte abs 1.5 (H) 0.2 - 0.8 K/cumm Eosinophil abs 0.1 0.0 - 0.5 K/cumm Basophil abs 0.0 0.0 - 0.1 K/cumm Neutrophil pct 57.9 % Imm gran pct 1.0 % Lymphocyte pct 17.5 % Monocyte pct 22.0 % Eosinophil pct 1.0 % Basophil pct 0.6 % POCT glucose Collection Time: 03/12/19 8:31 PM Result Value Ref Range Glucose, POC, bld 191 70 - 199 mg/dL Xr Tibia Fibula Left 2 Views Result Date: 03/11/2019 1. Shi B fracture of the left fibula with intraarticular extension. 2. Avulsion fracture of the medial malleolus. 3. Medial clear space widening on stress views indicative of medial ligamentous injury. Dictated by: Juliet Sosa M.D. The radiology attending physician has personally reviewed this study, and had reviewed and/or edited this written report and agrees with it. Electronically signed by: Navin Edmond M.D. Xr Ankle Left 2 Views Result Date: 03/11/2019 1. Shi B fracture of the left fibula with intraarticular extension. 2. Avulsion fracture of the medial malleolus. 3. Medial clear space widening on stress views indicative of medial ligamentous injury. Dictated by: Juliet Sosa M.D. The radiology attending physician has personally reviewed this study, and had reviewed and/or edited this written report and agrees with it. Electronically signed by: Navin Edmond M.D. Xr Ankle Left 3 Or More Views Result Date: 03/11/2019 1. Post reduction with splint, with reestablished alignment of tibiotalar joint. 2. Redemonstrationof Shi B fracture of left fibula and avulsion fracture of medial malleolus. Dictated by: Sheila Cobb M.D. The radiology attending physician has personally reviewed this study, and had reviewed and/or edited this written report and agrees with it. Electronically signed by: Navin Edmond M.D. Xr Ankle Left 3 Or More Views Result Date: 03/11/2019 1. Shi B fracture of the left fibula with intraarticular extension. 2. Avulsion fracture of the medial malleolus. 3. Medial clear space widening on stress views indicative of medial ligamentous injury. Dictated by: Juliet Sosa M.D. The radiology attending physician has personally reviewed this study, and had reviewed and/or edited this written report and agrees with it. Electronically signed by: Navin Edmond M.D. Xr Foot Left 3 Or More Views Result Date: 03/11/2019 1. Shi B fracture of the left fibula with intraarticular extension. 2. Avulsion fracture of the medial malleolus. 3. Medial clear space widening on stress views indicative of medial ligamentous injury. Dictated by: Juliet Sosa M.D. The radiology attending physician has personally reviewed this study, and had reviewed and/or edited this written report and agrees with it. Electronically signed by: Navin Edmond M.D. Xr Chest 1 Vw Portable Result Date: 03/11/2019 Comparison is made with chest radiograph dated 10/21/2016. Lung volumes are low with resultant crowding of bronchovascular markings. The lungs are clear of focal airspace disease. No pleural effusionor pneumothorax. Old Rib fractures are redemonstrated. No acute displaced fracture. Dictated by: Juliet Sosa M.D. The radiology attending physician has personally reviewed this study, and had reviewed and/or edited this written report and agrees with it. Electronically signed by: Navin Edmond M.D. Xr Pelvis 1 Or 2 Views Result Date: 03/11/2019 No acute fracture. Dictated by: Juliet Sosa M.D. The radiology attending physician has personally reviewed this study, and had reviewed and/or edited this written report and agrees with it. Electronically signed by: Navin Edmond M.D. Ct Ankle Left Wo Contrast Result Date: 03/11/2019 1. Bimalleolar left ankle fracture with acute on chronic deltoid ligament avulsion fracture and syndesmotic injury. 2. Diffuse edema throughout the soft tissues of the ankle. 3. Nonspecific global fatty atrophy of the left lower calf and foot muscles. Dictated by: Levy Zhu M.D. The radiology attending physician has personally reviewed this study, and had reviewed and/or edited this written report and agrees with it. Electronically signed by: Prakash Hinkle M.D. 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 #Acute pain -APAP q6 hrs, PRN oxy, home Lyrica continued, and home baclofen continued PRN ?? #COPD/HTN -Home inhalers continued -Lopressor continued -Lasix 20mg ?? #CKD -Creatinine 1.47 on admit > downtrending to 1.29 (appears about baseline) ?? #Afib/HO DVT and PE - Flecainide continued - Warfarin 5mg ?? #DM - MDSSI +6 units - home regimen = 44 units lantus, 8 lispro TIDAC ?? 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 DVT ppx -Lovenox 40mg BID Tammie Soriano MD 03/11/2019 1:19 PM Cosigned by Cricket Tripp MD at 03/14/2019 9:35 PM CDT Associated attestation - Cricket Tripp MD - 03/14/2019 9:35 PM CDT I have personally seen and examined this patient on the date of service as documented on the Resident note and have reviewed and confirmed the history, physical exam, laboratory,radiographic data, assessment and plan as documented by the resident with the following modifications: 78M s/p fall with L ankle fx - distal fibular fx - nonop per ortho, NWB; DM - SSI; Hx DVT/PE on coumadin - INR 2.3 on arrival -resume a/c given nonop mgmt; PT/OT; On my exam: LLE splinted, NV intact, abd soft, NAD, A&Ox3. Cricket Tripp MD Section of Acute and Critical Care Surgery * Neal Neville MD - 03/12/2019 1:19 PM CDT Admitted to [facility] Examined this am, comfortable in splint, toes wwp Discussed operative vs. Non-operative management at length with family 78 yo M w/ L trimalleolar fx/dislocation. Currently splinted. Heavy comorbidity burden and anticoagulation status considered. -no immediate plans for OR, ok for diet and coumadin -NWB to LLE -can f/u as outpatient to discuss surgery vs. Non-operative management. -PT and dispo per [facility] -will follow peripherally, but if patient discharges prior to securing follow-up appointment in [facility] then please have call [phone] or [phone] for an appointment. Please page or call with any questions or concerns Anthony Neville Orthopaedic Surgery PGY-3 [phone] Please call or page through [email or web address] with questions or concerns. If unable to reach, oroutside of the normal business hours, you can page the orthopedics spine pager at or general ortho pager through [employer] to speak to on-call or be connected to the appropriate resident * Mireya Cruz NP - 03/12/2019 12:01 AM CDT [facility] Geriatric Trauma Surgery Daily Progress Note Admit: 03/11/2019 12:35 PM Date: March 11, 2019 Length of Stay: 0 Attending: Alvaro Ortez DO POD:* No surgery date entered * Procedure(s): OPEN REDUCTION INTERNAL FIXATION - ANKLE History: Neal Amaro is a 78 y.o. 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 He denied head trauma or LOC. Imaging at the OSH demonstrated a left ankle fracture that was attempted reduction. Physical exam on arrival revealed GCS 15, splinted LLE with intact DP and chronic sensory loss. Further imaging was negative for any other acute injuries. Orthopedic trauma was consulted and pt was admitted to the trauma floor. ?? Interval History: 03/12:No events overnight 03/11:Admitted to floor in stable condition Pain:controlled Nausea: No Flatus: Yes Bowel Movement: No Medications: Current Facility-Administered Medications: ??? [START ON 03/12/2019] acetaminophen (TYLENOL) tablet 1,000 mg, 1,000 mg, oral, Q6H AUDELIA, Chapo Perez Jr., MD, 1,000 mg at 03/11/195 ??? [START ON 03/12/2019] albuterol HFA (PROVENTIL HFA,VENTOLIN HFA,PROAIR HFA) 90 mcg/actuation inhaler 1 puff, 1 puff, inhalation, Q6H While awake (RT), Chapo Perez Jr., MD ??? [START ON 03/12/2019] atorvastatin (LIPITOR) tablet 20 mg, 20 mg, oral, Daily, Chapo Perez Jr., MD ??? baclofen (LIORESAL) tablet 10 mg, 10 mg, oral, TID PRN, Chapo Perez Jr., MD ??? dextrose (GLUTOSE) 40 % gel 15 g, 15 g, oral, Q15 Min PRN OR dextrose (D10W) 10% bolus 250 mL, 250 mL, intravenous, Q15 Min PRN, Chapo Perez Jr., MD ??? doxycycline (VIBRAMYCIN) tablet/capsule 100 mg, 100 mg, oral, BID - special, Chapo Perez Jr., MD, 100 mg at 03/11/192245 ??? enoxaparin (LOVENOX) syringe 40 mg, 40 mg, subcutaneous, Q12H [facility], Mireya Cruz NP, 40 mg at 03/11/192245 ??? [START ON 03/12/2019] finasteride (PROSCAR) tablet 5 mg, 5 mg, oral, Daily, Chapo Perez Jr., MD ??? flecainide (TAMBOCOR) tablet 50 mg, 50 mg, oral, BID, Chapo Perez Jr., MD ??? fluticasone propion-salmeterol (ADVAIR DISKUS) 100-50 mcg/dose diskus inhaler 1 puff, 1 puff, inhalation, BID (RT), Chapo Perez Jr., MD ??? glucagon injection 1 mg, 1 mg, intramuscular, Q30 Min PRN, Chapo Perez Jr., MD ??? [START ON 03/12/2019] insulin glargine (LANTUS) injection 10 Units, 10 Units, subcutaneous, Nightly, Mireya Cruz, [employer] ??? insulin lispro (HumaLOG) injection 1-2 Units, 1-2 Units, subcutaneous, Nightly, Mireya Cruz, [employer] ??? [START ON 03/12/2019] insulin lispro (HumaLOG) injection 1-3 Units, 1-3 Units, subcutaneous, TIDwith meals, Mireya Cruz, [employer] ??? metoprolol (LOPRESSOR) tablet 12.5 mg, 12.5 mg, oral, BID, Mireya Cruz, [employer], 12.5 mg at 03/11/19 2246 ??? oxyCODONE (ROXICODONE) tablet 5 mg, 5 mg, oral, Q4H PRN, Chapo Perez Jr., MD, 5 mg at 03/11/19 2245 ??? [START ON 03/12/2019] pantoprazole DR (PROTONIX) extended release tablet 40 mg, 40 mg, oral, Daily, Chapo Perez Jr., MD ??? pregabalin (LYRICA) capsule 75 mg, 75 mg, oral, TID, Chapo Perez Jr., MD, 75 mg at 03/11/19 2245 ??? sodium chloride 0.9% flush 0.5-20 mL, 0.5-20 mL, intra-catheter, Q8H AUDELIA, Chapo Perez Jr., MD, 10 mL at 03/11/19 2247 ??? sodium chloride 0.9% flush 0.5-20 mL, 0.5-20 mL, intra-catheter, PRN, Chapo Smith MD ??? [START ON 03/12/2019] tamsulosin (FLOMAX) extended release capsule 0.4 mg, 0.4 mg, oral, Daily with dinner, Chapo Perez Jr., MD Diet: Dietary Orders (From admission, onward) Start Ordered 03/11/192102 Adult Diet Regular Diet effective now Question: ([facility]) Diet type Answer: Regular 03/11/192101 Activity: As tolerated Is&Os: No intake/output data recorded. I/O this shift: In: 10 [I.V.:10] Out: 150 [Urine:150] Physical Exam: 24hr Min/Max: Temp Min: 36.3 ??C (97.3 ??F) Max: 36.9 ??C (98.4 ??F) Pulse Min: 59 Max: 91 BP Min: 113/82 Max: 174/69 Resp Min: 15 Max: 28 SpO2 Min: 94 % Max: 97 % Vitals: 03/11/19 2245 BP: 162/75 Pulse: 85 Resp: 20 Temp: 36.3 ??C (97.3 ??F) SpO2: 94% Constitutional: well developed, well nourished, cooperative, no apparent distress and obese Head: normocephalic, without obvious abnormality, atraumatic Neurologic: alert and oriented x4 Chronic BLE neuropathy L>R, decreased LLE motor 2/2 to pain Eyes: conjunctivae/corneas clear. PERRL, EOMs intact HENT: mucous membranes moist Neck: supple, symmetrical, trachea midline Chest: normal appearance, no masses or tenderness Respiratory: clear to auscultation bilaterally and normal chest rise and fall Cardiovascular: regular rate and rhythm, S1, S2 normal, no murmur, click, rub or gallop and distantheart sounds Gastrointestinal: non-distended, soft non-tender and hernia present incisional Musculoskeletal: extremities normal, warm and well-perfused, no edema and LLE spinted, able to wiggle toes Pulses: DP: left diminished Skin: skin color, texture, turgor normal. No rashes or lesions Labs/Imaging: Recent Results (from the past 72 hour(s)) POCT glucose Collection Time: 03/11/19 12:41 PM Result Value Ref Range Glucose, POC, bld 95 70 - 199 mg/dL CBC with auto differential Collection Time: 03/11/19 12:48 PM Result Value Ref Range WBC 8.7 3.8 - 9.9 K/cumm Hgb 15.2 13.0 - 17.5 g/dL Hct 47.3 38.9 - 50.3 % Plt 323 150 - 400 K/cumm MPV 9.9 9.1 - 12.3 fL RBC 5.60 4.30 - 5.80 M/cumm MCV 84.5 81.3 - 96.4 fL MCH 27.1 27.1 - 33.3 pg MCHC 32.1 (L) 32.3 - 35.7 g/dL RDW CV 18.9 (H) 11.1 - 14.9 % RDW SD 55.8 (H) 35.7 - 48.1 fL NRBC abs 0.00 0.00 - 0.01 K/cumm Basic metabolic panel Collection Time: 03/11/19 12:48 PM Result Value Ref Range Sodium 144 135 - 145 mmol/L Potassium, pl 4.6 3.3 - 4.9 mmol/L Chloride 109 97 - 110 mmol/L CO2 28 22 - 32 mmol/L Anion gap 7 2 - 15 mmol/L BUN 16 8 - 25 mg/dL Creatinine 1.47 (H) 0.80 - 1.30 mg/dL Glucose 106 70 - 199 mg/dL Calcium 9.0 8.5 - 10.3 mg/dL Protime-INR Collection Time: 03/11/19 12:48 PM Result Value Ref Range PT 25.0 (H) 8.6 - 13.0 sec INR 2.28 (H) 0.80 - 1.20 aPTT Collection Time: 03/11/19 12:48 PM Result Value Ref Range aPTT 34.5 25.0 - 37.0 sec Type and screen Collection Time: 03/11/19 12:48 PM Result Value Ref Range Sanju, indirect Negative ABO Rh A Positive Differential, auto Collection Time: 03/11/19 12:48 PM Result Value Ref Range Neutrophil abs 5.8 1.7 - 6.5 K/cumm Imm gran abs 0.0 0.0 - 0.1 K/cumm Lymphocyte abs 1.5 0.8 - 3.3 K/cumm Monocyte abs 1.2 (H) 0.2 - 0.8 K/cumm Eosinophil abs 0.1 0.0 - 0.5 K/cumm Basophil abs 0.0 0.0 - 0.1 K/cumm Neutrophil pct 66.8 % Imm gran pct 0.6 % Lymphocyte pct 17.4 % Monocyte pct 13.3 % Eosinophil pct 1.4 % Basophil pct 0.5 % Urinalysis reflex to microscopic and culture Urine Collection Time: 03/11/19 2:17 PM Result Value Ref Range Color, ur Yellow Yellow Clarity, ur Clear Clear Specific gravity, ur 1.019 1.010 - 1.025 pH, urine 5 Protein, ur ql Negative Negative Glucose, ur ql Negative Negative Ketones, ur Negative Negative Bilirubin, ur Negative Negative Blood, ur 1+ (A) Negative Urobilinogen, ur <2.0 <2.0 mg/dL Nitrite, ur Negative Negative Leukocyte esterase, ur Negative Negative Urinalysis, microscopic only Collection Time: 03/11/19 2:17 PM Result Value Ref Range WBC, ur 0-5 0 - 5 /HPF RBC, ur 11-20 (A) 0 - 2 /HPF Epithelial cells, squamous, ur 1-5 0 - 5 /HPF Mucous, ur Present (A) POCT glucose Collection Time: 03/11/19 4:14 PM Result Value Ref Range Glucose, POC, bld 87 70 - 199 mg/dL POCT glucose Collection Time: 03/11/19 8:09 PM Result Value Ref Range Glucose, POC, bld 118 70 - 199 mg/dL Prepare RBC: 2 Units Collection Time: 03/11/19 8:17 PM Result Value Ref Range Product code [id number] Unit Number [id number] Product Blood Type APOS Dispense Status CROSSMATCHED Product code [id number] Unit Number [id number] Product Blood Type APOS Dispense Status CROSSMATCHED POCT glucose Collection Time: 03/11/19 10:33 PM Result Value Ref Range Glucose, POC, bld 102 70 - 199 mg/dL Xr Tibia Fibula Left 2 Views Result Date: 03/11/2019 1. Shi B fracture of the left fibula with intraarticular extension. 2. Avulsion fracture of the medial malleolus. 3. Medial clear space widening on stress views indicative of medial ligamentous injury. Dictated by: Juliet Sosa M.D. The radiology attending physician has personally reviewed this study, and had reviewed and/or edited this written report and agrees with it. Electronically signed by: Navin Edmond M.D. Xr Ankle Left 2 Views Result Date: 03/11/2019 1. Shi B fracture of the left fibula with intraarticular extension. 2. Avulsion fracture of the medial malleolus. 3. Medial clear space widening on stress views indicative of medial ligamentous injury. Dictated by: Juliet Sosa M.D. The radiology attending physician has personally reviewed this study, and had reviewed and/or edited this written report and agrees with it. Electronically signed by: Navin Edmond M.D. Xr Ankle Left 3 Or More Views Result Date: 03/11/2019 1. Post reduction with splint, with reestablished alignment of tibiotalar joint. 2. Redemonstrationof Shi B fracture of left fibula and avulsion fracture of medial malleolus. Dictated by: Sheila Cobb M.D. The radiology attending physician has personally reviewed this study, and had reviewed and/or edited this written report and agrees with it. Electronically signed by: Navin Edmond M.D. Xr Ankle Left 3 Or More Views Result Date: 03/11/2019 1. Shi B fracture of the left fibula with intraarticular extension. 2. Avulsion fracture of the medial malleolus. 3. Medial clear space widening on stress views indicative of medial ligamentous injury. Dictated by: Juliet Sosa M.D. The radiology attending physician has personally reviewed this study, and had reviewed and/or edited this written report and agrees with it. Electronically signed by: Navin Edmond M.D. Xr Foot Left 3 Or More Views Result Date: 03/11/2019 1. Shi B fracture of the left fibula with intraarticular extension. 2. Avulsion fracture of the medial malleolus. 3. Medial clear space widening on stress views indicative of medial ligamentous injury. Dictated by: Juliet Sosa M.D. The radiology attending physician has personally reviewed this study, and had reviewed and/or edited this written report and agrees with it. Electronically signed by: Navin Edmond M.D. Xr Chest 1 Vw Portable Result Date: 03/11/2019 Comparison is made with chest radiograph dated 10/21/2016. Lung volumes are low with resultant crowding of bronchovascular markings. The lungs are clear of focal airspace disease. No pleural effusionor pneumothorax. Old Rib fractures are redemonstrated. No acute displaced fracture. Dictated by: Juliet Sosa M.D. The radiology attending physician has personally reviewed this study, and had reviewed and/or edited this written report and agrees with it. Electronically signed by: Navin Edmond M.D. Xr Pelvis 1 Or 2 Views Result Date: 03/11/2019 No acute fracture. Dictated by: Juliet Sosa M.D. The radiology attending physician has personally reviewed this study, and had reviewed and/or edited this written report and agrees with it. Electronically signed by: Navin Edmond M.D. Ct Ankle Left Wo Contrast Result Date: 03/11/2019 1. Bimalleolar left ankle fracture with acute on chronic deltoid ligament avulsion fracture and syndesmotic injury. 2. Diffuse edema throughout the soft tissues of the ankle. 3. Nonspecific global fatty atrophy of the left lower calf and foot muscles. Dictated by: Levy Zhu M.D. The radiology attending physician has personally reviewed this study, and had reviewed and/or edited this written report and agrees with it. Electronically signed by: Prakash Hinkle M.D. 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 #Acute pain -APAP q6 hrs, PRN oxy, home Lyrica continued, and home baclofen continued PRN ?? #COPD/HTN -Home inhalers continued - Lopressor continued - Lasix on hold ?? #CKD -Creatinine 1.47 on admission (appears about baseline) ?? #Afib/HO DVT and PE - Flecainide continued - Coumadin on hold - INR 2.3 on admission, no reversal ?? #DM - MDSSI +6 units - home regimen = 44 units lantus, 8 lispro TIDAC ?? 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 DVT ppx -Lovenox 40mg BID Mireya Cruz NP Cosigned by Kiki Cespedes MD at 03/14/2019 3:00 PM CDT * Mireya Cruz NP - 03/11/2019 9:42 PM CDT [facility] Geriatric Trauma Surgery ED Accept Note Admit: 03/11/2019 12:35 PM Date: March 11, 2019 Length of Stay: 0 Attending: Alvaro Ortez DO POD:* No surgery date entered * Procedure(s): OPEN REDUCTION INTERNAL FIXATION - ANKLE History: Neal Amaro is a 78 y.o. 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 He denied head trauma or LOC. Imaging at the OSH demonstrated a left ankle fracture that was attempted reduction. Physical exam on arrival revealed GCS 15, splinted LLE with intact DP and chronic sensory loss. Further imaging was negative for any other acute injuries. Orthopedic trauma was consulted and pt was admitted to the trauma floor. Interval History: 03/11:Admitted to floor in stable condition Pain:controlled Nausea: No Flatus: Yes Bowel Movement: No Medications: Current Facility-Administered Medications: ??? [START ON 03/12/2019] acetaminophen (TYLENOL) tablet 1,000 mg, 1,000 mg, oral, Q6H AUDELIA, Chapo Perez Jr., MD ??? [START ON 03/12/2019] albuterol HFA (PROVENTIL HFA,VENTOLIN HFA,PROAIR HFA) 90 mcg/actuation inhaler 1 puff, 1 puff, inhalation, Q6H While awake (RT), Chapo Perez Jr., MD ??? [START ON 03/12/2019] atorvastatin (LIPITOR) tablet 20 mg, 20 mg, oral, Daily, Chapo Perez Jr., MD ??? baclofen (LIORESAL) tablet 10 mg, 10 mg, oral, TID PRN, Chapo Perez Jr., MD ??? dextrose (GLUTOSE) 40 % gel 15 g, 15 g, oral, Q15 Min PRN OR dextrose (D10W) 10% bolus 250 mL, 250 mL, intravenous, Q15 Min PRN, Chapo Perez Jr., MD ??? doxycycline (VIBRAMYCIN) tablet/capsule 100 mg, 100 mg, oral, BID - special, Chapo Perez Jr., MD ??? enoxaparin (LOVENOX) syringe 40 mg, 40 mg, subcutaneous, Q12H AUDELIA, Mireya Cruz, [employer] ??? [START ON 03/12/2019] finasteride (PROSCAR) tablet 5 mg, 5 mg, oral, Daily, Chapo Perez Jr., MD ??? flecainide (TAMBOCOR) tablet 50 mg, 50 mg, oral, BID, Chapo Perez Jr., MD ??? fluticasone propion-salmeterol (ADVAIR DISKUS) 100-50 mcg/dose diskus inhaler 1 puff, 1 puff, inhalation, BID (RT), Chapo Perez Jr., MD ??? glucagon injection 1 mg, 1 mg, intramuscular, Q30 Min PRN, Chapo Perez Jr., MD ??? insulin glargine (LANTUS) injection 30 Units, 30 Units, subcutaneous, Nightly, Chapo Salas Jr., MD ??? [START ON 03/12/2019] insulin lispro (HumaLOG) injection 6 Units, 6 Units, subcutaneous, TID with meals, Chapo Perez Jr., MD ??? metoprolol (LOPRESSOR) tablet 12.5 mg, 12.5 mg, oral, BID, Mireya Cruz, [employer] ??? oxyCODONE (ROXICODONE) tablet 5 mg, 5 mg, oral, Q4H PRN, Chapo Perez Jr., MD ??? [START ON 03/12/2019] pantoprazole DR (PROTONIX) extended release tablet 40 mg, 40 mg, oral, Daily, Chapo Perez Jr., MD ??? pregabalin (LYRICA) capsule 75 mg, 75 mg, oral, TID, Chapo Perez Jr., MD ??? sodium chloride 0.9% flush 0.5-20 mL, 0.5-20 mL, intra-catheter, Q8H AUDELIA, Chapo Perez Jr., MD ??? sodium chloride 0.9% flush 0.5-20 mL, 0.5-20 mL, intra-catheter, PRN, Chapo Smith MD ??? [START ON 03/12/2019] tamsulosin (FLOMAX) extended release capsule 0.4 mg, 0.4 mg, oral, Daily with dinner, Chapo Perez Jr., MD Diet: Dietary Orders (From admission, onward) Start Ordered 03/12/19 0001 NPO Diet Sips with meds Diet effective midnight Question: NPO except: Answer: Sips with meds 03/11/19220503/11/192102 Adult Diet Regular Diet effective now Question: ([facility]) Diet type Answer: Regular 03/11/192101 Activity: As tolerated Is&Os: No intake/output data recorded. I/O this shift: In: - Out: 150 [Urine:150] Physical Exam: 24hr Min/Max: Temp Min: 36.9 ??C (98.4 ??F) Max: 36.9 ??C (98.4 ??F) Pulse Min: 59 Max: 91 BP Min: 113/82 Max: 174/69 Resp Min: 15 Max: 28 SpO2 Min: 94 % Max: 97 % Vitals: 03/11/19 2100 BP: (!) 174/69 Pulse: 78 Resp: 20 Temp: 36.9 ??C (98.4 ??F) SpO2: 96% Constitutional: well developed, well nourished, cooperative, no apparent distress and obese Head: normocephalic, without obvious abnormality, atraumatic Neurologic: alert and oriented x4 Chronic BLE neuropathy L>R, decreased LLE motor 2/2 to pain Eyes: conjunctivae/corneas clear. PERRL, EOMs intact HENT: mucous membranes moist Neck: supple, symmetrical, trachea midline Chest: normal appearance, no masses or tenderness Respiratory: clear to auscultation bilaterally and normal chest rise and fall Cardiovascular: regular rate and rhythm, S1, S2 normal, no murmur, click, rub or gallop and distantheart sounds Gastrointestinal: non-distended, soft non-tender and hernia present incisional Musculoskeletal: extremities normal, warm and well-perfused, no edema and LLE spinted, able to wiggle toes Pulses: DP: left diminished Skin: skin color, texture, turgor normal. No rashes or lesions Labs/Imaging: Recent Results (from the past 72 hour(s)) POCT glucose Collection Time: 03/11/19 12:41 PM Result Value Ref Range Glucose, POC, bld 95 70 - 199 mg/dL CBC with auto differential Collection Time: 03/11/19 12:48 PM Result Value Ref Range WBC 8.7 3.8 - 9.9 K/cumm Hgb 15.2 13.0 - 17.5 g/dL Hct 47.3 38.9 - 50.3 % Plt 323 150 - 400 K/cumm MPV 9.9 9.1 - 12.3 fL RBC 5.60 4.30 - 5.80 M/cumm MCV 84.5 81.3 - 96.4 fL MCH 27.1 27.1 - 33.3 pg MCHC 32.1 (L) 32.3 - 35.7 g/dL RDW CV 18.9 (H) 11.1 - 14.9 % RDW SD 55.8 (H) 35.7 - 48.1 fL NRBC abs 0.00 0.00 - 0.01 K/cumm Basic metabolic panel Collection Time: 03/11/19 12:48 PM Result Value Ref Range Sodium 144 135 - 145 mmol/L Potassium, pl 4.6 3.3 - 4.9 mmol/L Chloride 109 97 - 110 mmol/L CO2 28 22 - 32 mmol/L Anion gap 7 2 - 15 mmol/L BUN 16 8 - 25 mg/dL Creatinine 1.47 (H) 0.80 - 1.30 mg/dL Glucose 106 70 - 199 mg/dL Calcium 9.0 8.5 - 10.3 mg/dL Protime-INR Collection Time: 03/11/19 12:48 PM Result Value Ref Range PT 25.0 (H) 8.6 - 13.0 sec INR 2.28 (H) 0.80 - 1.20 aPTT Collection Time: 03/11/19 12:48 PM Result Value Ref Range aPTT 34.5 25.0 - 37.0 sec Type and screen Collection Time: 03/11/19 12:48 PM Result Value Ref Range Sanju, indirect Negative ABO Rh A Positive Differential, auto Collection Time: 03/11/19 12:48 PM Result Value Ref Range Neutrophil abs 5.8 1.7 - 6.5 K/cumm Imm gran abs 0.0 0.0 - 0.1 K/cumm Lymphocyte abs 1.5 0.8 - 3.3 K/cumm Monocyte abs 1.2 (H) 0.2 - 0.8 K/cumm Eosinophil abs 0.1 0.0 - 0.5 K/cumm Basophil abs 0.0 0.0 - 0.1 K/cumm Neutrophil pct 66.8 % Imm gran pct 0.6 % Lymphocyte pct 17.4 % Monocyte pct 13.3 % Eosinophil pct 1.4 % Basophil pct 0.5 % Urinalysis reflex to microscopic and culture Urine Collection Time: 03/11/19 2:17 PM Result Value Ref Range Color, ur Yellow Yellow Clarity, ur Clear Clear Specific gravity, ur 1.019 1.010 - 1.025 pH, urine 5 Protein, ur ql Negative Negative Glucose, ur ql Negative Negative Ketones, ur Negative Negative Bilirubin, ur Negative Negative Blood, ur 1+ (A) Negative Urobilinogen, ur <2.0 <2.0 mg/dL Nitrite, ur Negative Negative Leukocyte esterase, ur Negative Negative Urinalysis, microscopic only Collection Time: 03/11/19 2:17 PM Result Value Ref Range WBC, ur 0-5 0 - 5 /HPF RBC, ur 11-20 (A) 0 - 2 /HPF Epithelial cells, squamous, ur 1-5 0 - 5 /HPF Mucous, ur Present (A) POCT glucose Collection Time: 03/11/19 4:14 PM Result Value Ref Range Glucose, POC, bld 87 70 - 199 mg/dL POCT glucose Collection Time: 03/11/19 8:09 PM Result Value Ref Range Glucose, POC, bld 118 70 - 199 mg/dL Prepare RBC: 2 Units Collection Time: 03/11/19 8:17 PM Result Value Ref Range Product code [id number] Unit Number [id number] Product Blood Type APOS Dispense Status CROSSMATCHED Product code [id number] Unit Number [id number] Product Blood Type APOS Dispense Status CROSSMATCHED Xr Tibia Fibula Left 2 Views Result Date: 03/11/2019 1. Shi B fracture of the left fibula with intraarticular extension. 2. Avulsion fracture of the medial malleolus. 3. Medial clear space widening on stress views indicative of medial ligamentous injury. Dictated by: Juliet Sosa M.D. The radiology attending physician has personally reviewed this study, and had reviewed and/or edited this written report and agrees with it. Electronically signed by: Navin Edmond M.D. Xr Ankle Left 2 Views Result Date: 03/11/2019 1. Shi B fracture of the left fibula with intraarticular extension. 2. Avulsion fracture of the medial malleolus. 3. Medial clear space widening on stress views indicative of medial ligamentous injury. Dictated by: Juliet Sosa M.D. The radiology attending physician has personally reviewed this study, and had reviewed and/or edited this written report and agrees with it. Electronically signed by: Navin Edmond M.D. Xr Ankle Left 3 Or More Views Result Date: 03/11/2019 1. Post reduction with splint, with reestablished alignment of tibiotalar joint. 2. Redemonstrationof Shi B fracture of left fibula and avulsion fracture of medial malleolus. Dictated by: Sheila Cobb M.D. The radiology attending physician has personally reviewed this study, and had reviewed and/or edited this written report and agrees with it. Electronically signed by: Navin Edmond M.D. Xr Ankle Left 3 Or More Views Result Date: 03/11/2019 1. Shi B fracture of the left fibula with intraarticular extension. 2. Avulsion fracture of the medial malleolus. 3. Medial clear space widening on stress views indicative of medial ligamentous injury. Dictated by: Juliet Sosa M.D. The radiology attending physician has personally reviewed this study, and had reviewed and/or edited this written report and agrees with it. Electronically signed by: Navin Edmond M.D. Xr Foot Left 3 Or More Views Result Date: 03/11/2019 1. Shi B fracture of the left fibula with intraarticular extension. 2. Avulsion fracture of the medial malleolus. 3. Medial clear space widening on stress views indicative of medial ligamentous injury. Dictated by: Juliet Sosa M.D. The radiology attending physician has personally reviewed this study, and had reviewed and/or edited this written report and agrees with it. Electronically signed by: Navin Edmond M.D. Xr Chest 1 Vw Portable Result Date: 03/11/2019 Comparison is made with chest radiograph dated 10/21/2016. Lung volumes are low with resultant crowding of bronchovascular markings. The lungs are clear of focal airspace disease. No pleural effusionor pneumothorax. Old Rib fractures are redemonstrated. No acute displaced fracture. Dictated by: Juliet Sosa M.D. The radiology attending physician has personally reviewed this study, and had reviewed and/or edited this written report and agrees with it. Electronically signed by: Navin Edmond M.D. Xr Pelvis 1 Or 2 Views Result Date: 03/11/2019 No acute fracture. Dictated by: Juliet Sosa M.D. Ct Ankle Left Wo Contrast Result Date: 03/11/2019 1. Bimalleolar left ankle fracture with acute on chronic deltoid ligament avulsion fracture and syndesmotic injury. 2. Diffuse edema throughout the soft tissues of the ankle. 3. Nonspecific global fatty atrophy of the left lower calf and foot muscles. Dictated by: Levy Zhu M.D. The radiology attending physician has personally reviewed this study, and had reviewed and/or edited this written report and agrees with it. Electronically signed by: Prakash Holger Hinkle, M.D. 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 (CMS/HCC) Morbid obesity with BMI of 45.0-49.9, adult (CMS/HCC) Hypertension Pulmonary embolism (CMS/HCC) Paroxysmal atrial fibrillation (CMS/HCC) Acute pain due to trauma Type 2 diabetes mellitus, with long-term current use of insulin (CMS/[facility]) #L akilah ankle fx - Ortho trauma c/s--possible operative but TBD - NWB - Elevate above heart level #Acute pain -APAP q6 hrs, PRN oxy, home Lyrica continued, and home baclofen continued PRN #COPD/HTN -Home inhalers continued - Lopressor continued - Lasix on hold #CKD -Creatinine 1.47 on admission (appears about baseline) #Afib/HO DVT and PE - Flecainide continued - Coumadin on hold - INR 2.3 on admission, no reversal #DM - MDSSI +6 units - home regimen = 44 units lantus, 8 lispro TIDAC #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 Please page or call with any questions or concerns Anthony Neville Orthopaedic Surgery [id number] [phone] Please call or page through [email or web address] with questions or concerns. If unable to reach, oroutside of the normal business hours, you can page the orthopedics spine pager at or general ortho pager through [employer] to speak to on-call or be connected to the appropriate resident * Cassandra Garcia DPT - 03/11/2019 5:14 PM CDT As decision was made to admit patient, PT will not occur in the ED. Rather therapy evaluation will occur on the floor. documented in this encounter Consult Notes * Chapo Perez Jr., MD - 03/11/2019 3:40 PM CDTAssociated Order(s): IP CONSULT TO TRAUMA SURGERY [facility] Trauma Surgery History and Physical Date of Evaluation: 03/11/19 Sex: male Date of : 1940 Consulting provider: Puma GIL Trauma Level Consult Assessment: 78 year old man with DVT/PE on coumadin (INR 2.3), Dm with neuropathy, HTN, BMI 46 who slipped and twisted his ankle while getting into his truck, but did not hit his head. Has distal fibula fracture. Plan: -Ortho recs: not emergently operative -admit GTS, pain control, PT/OT Chapo Perez Jr. Trauma Surgery March 11, 2019 3:40 PM Discussed with attending: Neelima at 1430 (time). Physician requesting consult: Ketan Bartholomew MD with the emergency department has asked that christine Amaro for evaluation following traumatic injury. Method of transport: Ambulance Transported: from Outside Hospital Fall/Jump Fall/Jump: Yes Approximate Height (feet): 3-20 Feet Fall/Jump from: out of truck Object Landed upon: [place] Loss of consciousness: No Area affected: Lower extremity(s) History of Injury/Accident, Subjective: Pre Hospital (events preceding injury, mechanism, treatments, clinical course): This is a 78 year old man with DVT/PE on coumadin (INR 2.3), Dm with neuropathy, HTN, BMI 46 who slipped and twisted his ankle while getting into his truck, but did not hit his head. He was seen at OSH where plain films demonstrated comminuted intraarticular distal fibula fracture. Allergies: Allergies Allergen Reactions ??? Adhesive Tape-Silicones Flushing (skin) Medications: On warfarin - NOT pradaxa No current facility-administered medications on file prior to encounter. Current Outpatient Medications on File Prior to Encounter Medication Sig Dispense Refill ??? amiodarone (PACERONE) 200 mg tablet Take 200 mg by mouth daily ??? dabigatran (PRADAXA) 150 mg capsule Take 150 mg by mouth 2 (two) times a day ??? finasteride (PROSCAR) 5 mg tablet Take 5 mg by mouth daily ??? atorvastatin (LIPITOR) 20 mg tablet take 1 tablet by oral route every day 0 0 ??? baclofen (LIORESAL) 10 mg tablet take 1 tablet by oral route 3 times every day 0 0 ??? cholecalciferol (VITAMIN D3) 1,000 unit capsule take 1 Capsule by Oral route 2 times every day 0 0 ??? doxycycline (doxycycline hyclate) 100 mg capsule take 1 capsule by oral route 2 times every day0 0 ??? flecainide (TAMBOCOR) 50 mg tablet Take 1 tablet (50 mg total) by mouth 2 (two) times a day. 180 tablet 3 ??? flecainide (TAMBOCOR) 50 mg tablet Take 50 mg by mouth 2 (two) times a day ??? flecainide (TAMBOCOR) 50 mg tablet TAKE ONE TABLET BY MOUTH TWICE A DAY 180 tablet 1 ??? fluticasone furoate-vilanterol (BREO ELLIPTA) 100-25 mcg/dose diskus inhaler Inhale 1 puff daily Rinse mouth with water after use. Do not swallow. ??? furosemide (LASIX) 20 mg tablet take 1 tablet by oral route everyday and as needed 60 4 ??? insulin glargine (LANTUS SOLOSTAR) 100 unit/mL (3 mL) insulin pen inject by subcutaneous route as per insulin protocol 0 Syringe 0 ??? insulin lispro (HumaLOG) 100 unit/mL cartridge inject by subcutaneous route per prescriber's instructions. Insulin dosing requires individualization. 0 Cartridge 0 ??? metoprolol (LOPRESSOR) 25 mg tablet 1/2 tab bid 90 3 ??? omeprazole (PriLOSEC) 20 mg capsule Take 40 mg by mouth daily. ??? omeprazole (PriLOSEC) 40 mg capsule ??? pregabalin (LYRICA) 75 mg capsule take 1 capsule by oral route 3 times every day 0 0 ??? PROAIR HFA 90 mcg/actuation inhaler ??? tamsulosin (FLOMAX) 0.4 mg capsule,extended release 24hr take 1 capsule by oral route every day1/2 hour following the same meal each day 0 0 ??? warfarin (COUMADIN) 5 mg tablet Past Medical History: Past Medical History: Diagnosis Date ??? Atrial fibrillation (CMS/HCC) ??? Hyperlipidemia Surgical History: open distal panc/spleen, bilateral TKA, RIGHT shoulder arthroplasty, back surgery Family History: Denies bleeding diathesis or anesthesia reactions Social: former smoker, rare etoh, no drugs SURVEY Primary Assessment Uncontrolled hemorrhage: No Airway: Patent Eye Opening: Spontaneous Best Verbal Response: Oriented Best Motor Response: Obeys commands [place] Coma Scale Score: 15 C-Spine Precautions: No Breathing Effort: Normal Central Pulse: Present Pulse Present: Left Pedal Capillary Refill: Less than/equal to 3 seconds Cardiac Rhythm: Normal sinus rhythm L Pupil Size (mm): 2 R Pupil Size (mm): 2 L Pupil Reaction: Brisk R Pupil Reaction: Brisk Patient exposed: Yes Warming Devices: Warm Blankets Secondary Assessment Head: No injury noted Face: No injury noted Neck: No injury noted Chest right: No injury noted Chest left: No injury noted Breath Sounds: Normal Breath Sounds Abdomen/Pelvis/Perineum injury : No injury noted Spine/Posterior surfaces: No injury noted Extremities: Injury Site: LLE LLE inspection: Swelling Resuscitation Phase & Emergency Treatments n/a Trauma Team: Attending: Neelima Senior: Anthony Cy: Newcomer Consultants: (name of attending) IP CONSULT TO TRAUMA SURGERY IP CONSULT TO ORTHOPEDIC SURGERY REVIEW OF SYSTEMS General- no fevers, chills HEENT- no changes in vision, hearing, congestion CV- no chest pain or palpitations Resp- no shortness of breath, no cough GI- no abdominal pain, nausea, vomiting, diarrhea, constipation - no pain with urination, urinary frequency or urgency MSK- no changes in strength, extremity swelling Integument- no new rashes, lumps, or bumps Heme- no easy bruising Endo- no significant changes in weight, no heat or cold intolerance Neuro- No changes in memory or balance Vitals Pulse: 59 Resp: 18 BP: 155/84 SpO2: 97 % Physical Exam Constitutional: He is oriented to person, place, and time. He appears well- developed and well-nourished. HENT: Head: Normocephalic and atraumatic. Nose: Nose normal. Mouth/Throat: Oropharynx is clear and moist. Eyes: Pupils are equal, round, and reactive to light. EOM are normal. Neck: Normal range of motion. Neck supple. No midline tenderness. Cardiovascular: Normal rate, regular rhythm, normal heart sounds and intact distal pulses. Pulmonary/Chest: Effort normal and breath sounds normal. No respiratory distress. Abdominal: Soft. He exhibits no distension. There is no tenderness. Musculoskeletal: Normal range of motion. Splinted LLE. Wiggles toes, normal capillary refill. Stable chronic sensory loss. Neurological: He is alert and oriented to person, place, and time. Skin: Skin is warm. Data Review: Lab Results Component Value Date WBC 8.7 03/11/2019 HGB 15.2 03/11/2019 HCT 47.3 03/11/2019 MCV 84.5 03/11/2019 LABPLAT 323 03/11/2019 Lab Results Component Value Date GLUCOSE 106 03/11/2019 CALCIUM 9.0 03/11/2019 SODIUM 144 03/11/2019 POTASSIUM 4.6 03/11/2019 CO2 28 03/11/2019 CHLORIDE 109 03/11/2019 BUNSER 16 03/11/2019 CREATININE 1.47 (H) 03/11/2019 Recent Labs Lab Units 03/11/19 1248 APTT sec 34.5 PROTIME (PT) sec 25.0* INR 2.28* Recent Results (from the past 36 hour(s)) POCT glucose Collection Time: 03/11/19 12:41 PM Result Value Ref Range Glucose, POC, bld 95 70 - 199 mg/dL CBC with auto differential Collection Time: 03/11/19 12:48 PM Result Value Ref Range WBC 8.7 3.8 - 9.9 K/cumm Hgb 15.2 13.0 - 17.5 g/dL Hct 47.3 38.9 - 50.3 % Plt 323 150 - 400 K/cumm MPV 9.9 9.1 - 12.3 fL RBC 5.60 4.30 - 5.80 M/cumm MCV 84.5 81.3 - 96.4 fL MCH 27.1 27.1 - 33.3 pg MCHC 32.1 (L) 32.3 - 35.7 g/dL RDW CV 18.9 (H) 11.1 - 14.9 % RDW SD 55.8 (H) 35.7 - 48.1 fL NRBC abs 0.00 0.00 - 0.01 K/cumm Basic metabolic panel Collection Time: 03/11/19 12:48 PM Result Value Ref Range Sodium 144 135 - 145 mmol/L Potassium, pl 4.6 3.3 - 4.9 mmol/L Chloride 109 97 - 110 mmol/L CO2 28 22 - 32 mmol/L Anion gap 7 2 - 15 mmol/L BUN 16 8 - 25 mg/dL Creatinine 1.47 (H) 0.80 - 1.30 mg/dL Glucose 106 70 - 199 mg/dL Calcium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 falls involving tripping off curb and falling when attempting to get into truck (reason for admission) -TP Grooming: Where assessed Chair simulated -TP Grooming: Level of assistance Moderate supervision task, NT standing -TP Grooming: Assistance with Increased time to complete;Safety setup of ADL items, stands at baseline -TP LE Dressing: Level of assistance Maximal Mod A task, NT standing -TP LE Dressing: Assistance with Supervision/safety;Increased time to complete;Pull up over hips;Fasteners safety, setup of ADL items -TP Toileting: Where assessed Chair simulated -TP Toileting: Level of assistance Maximal Mod A task, NT standing -TP Toileting: Assistance with Increased time to complete;Clothing management up;Clothing management down;Posterior;Anterior safety, setup of ADL items -TP Toilet Transfer From Bed -TP Toilet Transfer Type To -TP Toilet Transfer to Standard bedside commode simulated with chair -TP Toilet Transfer Technique Stand pivot;To right -TP Toilet Transfer: Equipment Hand hold -TP Toilet Transfers Moderate assistance -TP Toilet Transfers Comments assist X2; assist for force production, maintaining balance, and controlled descent. Verbal cues for positioning of hands and feet to assist with transfer and verbal cues tomaintain NWB precautions. -TP Pain Assessment 0-10 -TP Pain Score 6 -TP Pain Location Ankle -TP Pain Orientation Left -TP Pain Interventions RN Notified RN Pankaj -TP Arousal/Alertness Alert;Appropriate responses to stimuli -TP Attention Span Appears intact -TP Memory Decreased short term memory -TP Orientation Oriented X4 (person, place, time, situation) -TP Following Commands Follows all commands and directions without difficulty -TP Safety Judgment Good awareness of safety precautions -TP Awareness of Errors Assistance required to identify errors made;Assistance required to correct errors made -TP Insight Fully aware of deficits -TP Problem Solving Able to problem solve independently -TP Compliance/Behavior Easy to engage -TP Perseveration Not present -TP Light Touch Partial deficits in the RUE;Partial deficits in the LUE Pt reports bilateral sensation deficit at baseline -TP Serial Opposition WFL -TP Balance Yes -TP Static Sitting-Balance Support Bilateral upper extremity supported;Feet supported -TP Static Sitting-Level of Assistance Independent -TP Static Sitting-Comment/# of Minutes sitting edge of bed -TP Dynamic Sitting-Balance Support No upper extremity supported;Feet supported -TP Dynamic Sitting-Balance Forward lean;Reaching for objects -TP Dynamic Sitting-Level of Assistance Close supervision -TP Dynamic Sitting-Comments to don sock on right foot sitting edge of bed -TP Static Standing-Balance Support Bilateral upper extremity supported on therapist and RN -TP Static Standing-Level of Assistance Moderate assistance -TP Static Standing-Comment/# of Minutes assist for force production -TP Bed Mobility Yes -TP Bed Mobility From 1 Supine -TP Bed Mobility Type 1 To -TP Bed Mobility to 1 Edge of bed -TP Level of Assistance 1 Close supervision -TP Bed Mobility Comments 1 supervision for safety -TP Transfer Yes -TP Transfer From 1 Sit -TP Transfer Type 1 To and from -TP Transfer to 1 Stand -TP Technique 1 Sit to stand;Stand to sit -TP Transfer Device 1 Hand held assist -TP Transfer Level of Assistance 1 Moderate assistance -TP Trials/Comments 1 assist X2; assist for force production, maintaining balance, and controlled descent -TP RUE Assessment WFL -TP LUE Assessment WFL -TP Comments Discussed discharge recommendation to inpatient rehab, patient receptive and agreeable. -TP Problem List Decreased ADLs;Decreased endurance;Decreased functional mobility;Decreased ADL independence -TP Barriers to Discharge Decreased caregiver support -TP Barrier Comments Physical assistance unavailable -TP Plan Plan of care initiated;If this is the last note, consider this the discharge summary -TP OT Recommendation Inpatient Rehab Facility -TP OT Frequency 3-5x/wk -TP Treatment/Interventions Functional transfer training;Balance Training;Strength training/Strengthening;Therapeutic exercises;Functional mobility;Functional activities -TP OT - Next Appointment 03/14/19 -TP OT - OK to Discharge No -TP OT Evaluation Complete Yes -TP User Casey (r) = Recorded By, (t) = Taken By, (c) = Cosigned By Initials Name Effective Dates TP Kem Restrepo, OT 01/31/19 - OT Treatment No documentation. OT Notes (Notes from 03/12/19 through 03/14/19) No notes of this type exist for this encounter. , PT Eval and Treat Last 72 Hours PT Evaluation Row Name 03/14/19 7152 Chart Reviewed Yes -SS Session Type Evaluation -AR (r) SS (t) Subjective Agreeable to Therapy -SS Family/Caregiver Present No -SS Physical Therapy-Patient Goal pt states he wants to be able to walk again using his cane. -SS PT Functional Mobility pt completed bed mobility, functional transfer to chair, and education regarding WB precautions to progress towards his goals. -SS Precautions Fall risk;LOTUS -AR (r) SS (t) Weight Bearing Restrictions Yes -SS LLE Weight Bearing NWB -SS Type of Home House -SS Home Layout One level -SS Home Access Ramped entrance -SS Home Mobility Equipment Wheeled walker;Single point cane - Level of Holt Independent with ADLs;Independent functional transfers;Independent with ambulation -SS Lives With Spouse -SS Receives Help From Spouse/Significant other FT -SS Fall within the last 6 months Yes -SS Fall within the last 6 months comment 2 falls. One leading to current admission when getting into his truck and another when naviagating a curb which did not cause any injury. -SS Prior Function Comments pt reports he uses a cane for household and community mobility at baseline.He states he does not walk much besides walking to the bathroom/kitchen and back in [facility] to [facility] on sundays. -AR (r) SS (t) Activity Tolerance Comments BARNEY hard 15/20 with transferring from bed to chair. -SS Following Commands Follows all commands and directions without difficulty -AR (r) SS (t) Safety Judgment Good awareness of safety precautions -AR (r) SS (t) Awareness of Errors Assistance required to correct errors made -AR (r) SS (t) Compliance/Behavior Easy to engage -AR (r) SS (t) Light Touch Partial deficits in the RLE;Partial deficits in the LLE -SS Sensation Comments skin integrity WNL in R foot, L foot unable to assess. He reports partial deficits in bilateral feet at baseline 2/2 DM. -SS Balance Yes -SS Static Sitting-Balance Support Feet supported;No upper extremity supported -SS Static Sitting-Level of Assistance Independent -SS Dynamic Sitting-Balance Support Feet supported;No upper extremity supported -SS Dynamic Sitting-Level of Assistance Independent -SS Static Standing-Balance Support Bilateral upper extremity supported -SS Static Standing-Level of Assistance Moderate assistance modA x2 -SS Static Standing-Comment/# of Minutes assist for force production -SS Dynamic Standing-Balance Support Bilateral upper extremity supported -SS Dynamic Standing-Level of Assistance Moderate assistance -SS Dynamic Standing-Comments modA x2 for force production -SS Bed Mobility Yes -SS Bed Mobility From 1 Supine -SS Bed Mobility Type 1 To -SS Bed Mobility to 1 Edge of bed -SS Level of Assistance 1 Independent -SS Bed Mobility Comments 1 CT with UE -SS Transfer Yes -SS Transfer From 1 Bed -SS Transfer Type 1 To -SS Transfer to 1 Chair with arms - Technique 1 Stand pivot - Transfer Device 1 Hand held assist - Transfer Level of Assistance 1 Moderate assistance - Trials/Comments 1 modA x2 for force production and balance - Functional Ambulation Category 0 -SS Ambulation No -SS Stairs No -SS RLE Assessment WFL -SS R Hip Flexion 5/5 -SS R Knee Flexion 5/5 -SS R Knee Extension 5/5 -SS R Ankle Dorsiflexion 5/5 -SS LLE Assessment X -SS L Hip Flexion 5/5 -SS L Knee Flexion 5/5 -SS L Knee Extension 5/5 -SS Equipment Use Comments gait belt donned during transfer - Potential/Prognosis Good - Problem List Decreased strength;Decreased range of motion;Decreased endurance;Impaired balance;Decreased mobility;Impaired vision;Impaired sensation;Obesity;Orthopedic restrictions - Problem List Comments PT Diagnosis: Pt's left ankle fracture results in above listed activity deficits and impairments which prevent full participation in home and community mobility - Barriers to Discharge None - Plan Plan of care initiated;If this is the last note, consider this the discharge summary - PT Recommendation/Plan Inpatient Rehab Facility - PT Frequency 3-5x/wk - Treatment/Interventions Functional transfer training;LE Strengthening/ROM;Endurance training;Patient/family training;Equipment eval/education;Balance Training;Gait training;Bed mobility;ROM;Strength t raining/Strengthening;Therapeutic exercises - PT Equipment Recommended Wheeled walker bariatric WW - PT Evaluation Complete Yes - User Casey (r) = Recorded By, (t) = Taken By, (c) = Cosigned By Initials Name Effective Dates Wally Adame 02/16/19 - AR Leydi Heaton, CONTENT MANAGER 07/18/18 - PT TREATMENT (last 168 hours) PT Treatment No documentation. PT Notes (Notes from 03/12/19 through 03/14/19) No notes of this type exist for this encounter. * Plan of Care - Wally Adame - 03/14/2019 2:49 PM CDT Problem: Transfers Goal: STG - Transfer from bed to chair Description modA x1 with WW Outcome: Progressing Wally Adame, PT student 03/14/19 Cosigned by Liset Hamilton, PT at 03/15/2019 7:28 AM CDT * ECIN Note - Amanda Roxane [facility] [place] - 03/14/2019 12:19 PM CDT Patient Information: Comprehensive Nursing Documentation Attending Provider: Alvaro Ortez DO Allergies: Adhesive Tape-silicones Isolation: None Infection: None Code Status: FULL Ht: 188 cm (6' 2 ) Wt: 163.3 kg (360 lb) Admission Cmt: None Principal Problem: Closed fracture of left distal fibula [S82.832A] More... Intake/Output 03/11/19 07 - 03/12/19 0659 03/12/19 07 - 03/13/19 0659 03/13/19 0700 - 03/14/19 0659 03/14/19 0700 - 03/15/19 0659 Total Total 0406-0794 8512-5298 3534-1971 Total 2629-1810 8358-5303 1474-5961 Total Intake (ml) 20 -- -- -- -- -- -- -- -- -- Output (ml) 375 1000 -- 300 -- 300 500 -- -- 500 Net (ml) -355 -1000 -- -300 -- -300 -500 -- -- -500 Last Weight 163.3 kg (360 lb) -- -- -- -- -- -- -- -- -- Patient Lines/Drains/Airways Status Active Airway / Central venous catheter / Drain / Epidural cathether / Intraosseous line / Peripherally inserted central catheter / Peripheral intravenous line / Arterial line Name: Placement date: Placement time: Site: Days: Peripheral IV 03/11/19 18 G Left Antecubital 03/11/19 1237 Antecubital 2 Patient Lines/Drains/Airways Status Active Wound / Pressure ulcer / Bravo / Negative Pressure Wound None Infante Fall Risk Most Recent Value History of Falling 25 ............filed at 03/14/2019 0830 Secondary Diagnosis 15 ............filed at 03/14/2019829 Ambulatory Aids 0 ............filed at 03/14/2019 0830 Intravenous Therapy/Heparin/Saline Lock 20 ............filed at 03/14/2019 08 Gait/Transferring 20 ............filed at 03/14/2019 0830 Mental Status 0 ............filed at 03/14/2019 0830 Infante Fall Risk Score 80 ............filed at 03/14/2019 0830 Vital Signs 03/13 700 - 03/14 0659 03/14 700 - 03/14 1219 Most Recent Temp (??C) 36.5 - 36.9 36.6 - 36.7 36.7 (98.1) Pulse 70 - 75 69 - 72 69 Resp 18 - 20 18 18 SpO2 (%) 92 - 95 92 - 93 92 BP 125/74 - 150/75 125/50 - 152/74 125/50 MAP (mmHg) 96 - 800 69 - 91 69 Non Violent Restraint Most Recent Value Restraint Alternative Less Restrictive Alternative Comfort Measures filed at 03/14/2019 1206 Restraint Reason Restraint Type (NV) Every 2 Hours Default Flowsheet Data (most recent) Endurance Tests No documentation. Default Flowsheet Data (most recent) Balance Tests - 03/12/19 1524 Tinetti Sitting Balance 1 Arises 0 Attempts to Arise 0 Immediate Standing Balance (First 5 Seconds) 0 Standing Balance 0 Nudged 0 Eyes Closed 0 Turned 360 Degrees: Steadiness 0 Turned 360 Degrees: Continuity of Steps 0 Sitting Down 0 Balance Score 1 Nursing Nutrition None Nursing Mobility Activity 03/14 0830 Resting in bed 03/14 0645 Resting in bed 03/14 0505 Resting in bed 03/14 0425 Resting in bed;Sleeping 03/14 0330 Resting in bed;Sleeping 03/14 0220 Resting in bed;Sleeping 03/14 0148 Resting in bed;Sleeping 03/14 0009 Resting in bed;Sleeping 03/13 2337 Resting in bed;Sleeping 03/13 2215 Resting in bed;Sleeping 03/13 2136 Resting in bed;Sleeping 03/13 2003 Resting in bed;Sleeping 03/13 191 Resting in bed;Turn 03/13 0946 Resting in bed 03/13 0633 Resting in bed;Sleeping 03/13 0526 Resting in bed;Sleeping 03/13 0420 Resting in bed;Sleeping 03/13 0405 Resting in bed;Sleeping 03/13 0310 Resting in bed;Sleeping 03/13 0248 Resting in bed;Sleeping 03/13 0155 Resting in bed;Sleeping 03/13 0010 Resting in bed;Sleeping 03/12 2348 Sleeping;Resting in bed 03/12 2319 Resting in bed;Sleeping 03/12 2204 Resting in bed;Sleeping 03/12 2115 Resting in bed 03/12 203 Resting in bed 03/12 2011 Resting in bed 03/12 1905 Resting in bed 03/12 1800 Chair 03/12 1700 Chair 03/12 1600 Chair 03/12 1500 Resting in bed 03/12 1400 Resting in bed 03/12 1300 Resting in bed 03/12 1200 Resting in bed 03/12 1100 Resting in bed 03/12 1000 Resting in bed 03/12 0900 Resting in bed 03/12 0800 Resting in bed 03/12 0700 Resting in bed 03/12 0644 Resting in bed 03/12 0510 Resting in bed 03/12 0456 Resting in bed 03/12 0438 Resting in bed 03/12 0335 Resting in bed 03/12 0222 Sleeping 03/12 0156 Sleeping 03/12 0047 Resting in bed 03/11 2346 Resting in bed 03/11 2245 Resting in bed 03/11 2100 Resting in bed Level of Assistance 03/14 830 Maximum assist, patient does 25-49% 03/13 1915 Maximum assist, patient does 25-49% 03/13 946 Maximum assist, patient does 25-49% 03/12 1905 Maximum assist, patient does 25-49% 03/12 1600 Moderate assist, patient does 50-74% 03/11 2100 Moderate assist, patient does 50-74% Assistive Device 03/14 830 None 03/13 946 None 03/11 2100 None Repositioned 03/14 830 Turns self 03/14 0009 Turns self 03/13 1915 Turns self 03/13 946 Turns self 03/13 405 Turns self 03/12 234 Turns self 03/12 2011 Turns self 03/12 190 Turns self / 0700 Turns self 03/11 2100 Turns self Positioning Frequency 03/14 0830 Able to turn self 03/14 0009 Able to turn self 03/13 1915 Able to turn self 03/13 0946 Able to turn self 03/13 0405 Able to turn self 03/12 2348 Able to turn self 03/12 2011 Able to turn self 03/12 190 Able to turn self 03/12 0700 Able to turn self 03/11 2100 Able to turn self Head of Bed Elevated 03/13 1915 HOB less than 20 03/13 0946 HOB less than 20 03/12 190 HOB less than 20 03/12 07 HOB less than 20 03/11 2100 HOB 30 Heels/Feet 03/13 1915 Heels elevated off bed 03/13 946 Heels elevated off bed 03/12 1905 Heels elevated off bed 03/12 07 Heels elevated off bed 03/11 2100 Heels elevated off bed;Foot of bed elevated Range of Motion 03/13 1915 Active;All extremities 03/13 946 Active;All extremities 03/12 1905 Active;All extremities 03/12 07 Active;All extremities 03/11 2100 Active;All extremities Default Flowsheet Data (last 24 hours) Sitter Documentation Row Name 03/14/19 1206 03/14/19 1134 03/14/19 1038 Sitter Documentation Sitter Not indicated Not indicated Not indicated Row Name 03/14/19 0917 03/14/19 0830 03/14/19 0712 Sitter Documentation Sitter Not indicated Not indicated Not indicated Row Name 03/14/19 0645 03/14/19 0505 03/14/19 0425 Sitter Documentation Sitter Not indicated Not indicated Not indicated Row Name 03/14/19 0330 03/14/19 0220 03/14/19 0148 Sitter Documentation Sitter Not indicated Not indicated Not indicated Row Name 03/13/19 2337 03/13/19 2215 03/13/19 2136 Sitter Documentation Sitter Not indicated Not indicated Not indicated Row Name 03/13/19 2003 03/13/19 1915 03/13/19 1845 Sitter Documentation Sitter Not indicated Not indicated Not indicated Row Name 03/13/19 1741 03/13/19 1633 03/13/19 1552 Sitter Documentation Sitter Not indicated Not indicated Not indicated Row Name 03/13/19 1447 03/13/19 1310 03/13/19 1243 Sitter Documentation Sitter Not indicated Not indicated Not indicated , Meds and Admin Active Only All Meds/Most Recent Administrations atorvastatin (LIPITOR) tablet 20 mg [[id number]] Ordering Provider: Chapo Perez Jr., MD Status: Dispensed Ordered On: 03/11/192102 Start: 03/12/19899 Dose (Remaining/Total): 20 mg (--/--) Route: oral Frequency: Daily Rate/Duration: -- / -- Timestamps Action Dose Route Other Information 03/14/19821 Given 20 mg oral Performed by: Estefany Al RN baclofen (LIORESAL) tablet 10 mg [[id number]] Ordering Provider: Chapo Perez Jr., MD Status: Dispensed Ordered On: 03/11/192102 Start: 03/11/192102 Dose (Remaining/Total): 10 mg (--/--) Route: oral Frequency: 3 times daily PRN Rate/Duration: -- / -- Timestamps Action Dose Route Other Information 03/14/19445 Given 10 mg oral Performed by: Radha Morris RN doxycycline (VIBRAMYCIN) tablet/capsule 100 mg [[id number]] Ordering Provider: Chapo Perez Jr., MD Status: Dispensed Ordered On: 03/11/192102 Start: 03/11/192144 Dose (Remaining/Total): 100 mg (--/--) Route: oral Frequency: 2 times daily (for quinolones,etc) Rate/Duration: -- / -- Admin Instructions: Give 2 hrs before or 2 hrs after MVI, antacids, or other products containing sucralfate, magnesium, aluminum, iron, or zinc. May be taken without regard to meals. Timestamps Action Dose Route Other Information 03/14/19458 Given 100 mg oral Performed by: Radha Morris RN finasteride (PROSCAR) tablet 5 mg [[id number]] Ordering Provider: Chapo Perez Jr., MD Status: Dispensed Ordered On: 03/11/192102 Start: 03/12/19899 Dose (Remaining/Total): 5 mg (--/--) Route: oral Frequency: Daily Rate/Duration: -- / -- Timestamps Action Dose Route Other Information 03/14/19821 Given 5 mg oral Performed by: Estefany Al RN flecainide (TAMBOCOR) tablet 50 mg [[id number]] Ordering Provider: Chapo Perez Jr., MD Status: Dispensed Ordered On: 03/11/192102 Start: 03/11/192144 Dose (Remaining/Total): 50 mg (--/--) Route: oral Frequency: 2 times daily Rate/Duration: -- / -- Timestamps Action Dose Route Other Information 03/14/19820 Given 50 mg oral Performed by: Estfeany Al RN pantoprazole DR (PROTONIX) extended release tablet 40 mg [[id number]] Ordering Provider: Chapo Perez Jr., MD Status: Dispensed Ordered On: 03/11/192102 Start: 03/12/19899 Dose (Remaining/Total): 40 mg (--/--) Route: oral Frequency: Daily Rate/Duration: -- / -- Admin Instructions: Do not crush, chew, cut, dissolve, open or otherwise manipulate tablet/capsule. Timestamps Action Dose Route Other Information 03/14/19820 Given 40 mg oral Performed by: Estefany Al RN tamsulosin (FLOMAX) extended release capsule 0.4 mg [[id number]] Ordering Provider: Chapo Perez Jr., MD Status: Dispensed Ordered On: 03/11/192102 Start: 03/12/19 1800 Dose (Remaining/Total): 0.4 mg (--/--) Route: oral Frequency: Daily with dinner Rate/Duration: -- / -- Admin Instructions: Do not crush, chew, cut, dissolve, open or otherwise manipulate tablet/capsule. Timestamps Action Dose Route Other Information 03/12/191705 Given 0.4 mg oral Performed by: Skyler Munoz RN sodium chloride 0.9% flush 0.5-20 mL [[id number]] Ordering Provider: Chapo Perez Jr., MD Status: Verified Ordered On: 03/11/192102 Start: 03/11/192199 Dose (Remaining/Total): 0.5-20 mL (--/--) Route: intra-catheter Frequency: Every 8 hours scheduled Rate/Duration: -- / -- Admin Instructions: Flush volume based on line type and size. Timestamps Action Dose Route Other Information 03/14/19 050 Given 10 mL intra-catheter Performed by: Radha Morris RN sodium chloride 0.9% flush 0.5-20 mL [[id number]] Ordering Provider: Chapo Perez Jr., MD Status: Verified Ordered On: 03/11/192102 Start: 03/11/192101 Dose (Remaining/Total): 0.5-20 mL (--/--) Route: intra-catheter Frequency: As needed Rate/Duration: -- / -- Admin Instructions: Flush volume based on line type and size. Flush before and after each use. (No admins recorded for this medication) acetaminophen (TYLENOL) tablet 1,000 mg [[id number]] Ordering Provider: Chapo Perez Jr., MD Status: Dispensed Ordered On: 03/11/192102 Start: 03/12/19 0000 Dose (Remaining/Total): 1,000 mg (--/--) Route: oral Frequency: Every 6 hours scheduled Rate/Duration: -- / -- Timestamps Action Dose Route Other Information 03/14/19 113 Given 1,000 mg oral Performed by: Estefany Al, RN oxyCODONE (ROXICODONE) tablet 5 mg [[id number]] Ordering Provider: Chapo Perez Jr., MD Status: Dispensed Ordered On: 03/11/192102 Start: 03/11/192101 Dose (Remaining/Total): 5 mg (--/--) Route: oral Frequency: Every 4 hours PRN Rate/Duration: -- / -- Admin Instructions: May repeat in 1 hour if pain is uncontrolled or increasing. Max 2 doses within 1 dosing interval. Timestamps Action Dose Route Other Information 03/14/19445 Given 5 mg oral Performed by: Radha Morris RN dextrose (GLUTOSE) 40 % gel 15 g [[id number]] Ordering Provider: Chapo Perez Jr., MD Status: Verified Ordered On: 03/11/192101 Start: 03/11/192101 Dose (Remaining/Total): 15 g (--/--) Route: oral Frequency: Every 15 min PRN Rate/Duration: -- / -- Admin Instructions: If patient is alert and able to eat/drink, give 15 gm glucose or one juice (4 fluid ounces) NOT ORANGE JUICE. After treatment for hypoglycemia, recheck BG followed by treatment every 15 minutes until the BG is greater than 100 mg/dL. Then check BG 1 hour post-treatment. If BG isless than 100 mg/dL, repeat Q15 minute BG checks and treatment. Call MD for each episode of hypoglycemia. CLINICAL RESOURCE COORDINATOR STATES GLUTOSE-15 CONTAINS GLUCOSE 40% W/W (50% W/V) (No admins recorded for this medication) dextrose (D10W) 10% bolus 250 mL [[id number]] Ordering Provider: Chapo Perez Jr., MD Status: Verified Ordered On: 03/11/192101 Start: 03/11/192101 Dose (Remaining/Total): 250 mL (--/--) Route: intravenous Frequency: Every 15 min PRN Rate/Duration: 1,000 mL/hr / 15 Minutes Admin Instructions: After treatment for hypoglycemia, recheck BG followed by treatment every 15 minutes until the BG is greater than 100 mg/dL. Then check BG 1 hour post treatment. If BG is less [id number] mg/dL, repeat Q15 minute BG checks and treatment. Call MD for each episode of hypoglycemia. (No admins recorded for this medication) glucagon injection 1 mg [[id number]] Ordering Provider: Chapo Perez Jr., MD Status: Verified Ordered On: 03/11/192101 Start: 03/11/192101 Dose (Remaining/Total): 1 mg (--/--) Route: intramuscular Frequency: Every 30 min PRN Rate/Duration: -- / 1 Minutes Admin Instructions: After Glucagon is administered, position patient on side if possible to avoid aspiration. Obtain IV access. Follow glucagon treatment with glucose treatment or IV dextrose. After treatment for hypoglycemia, recheck BG followed by treatment every 15 minutes until the BG isgreater than 100 mg/dL. Then check BG 1 hour post treatment. If BG is less than 100 mg/dL, repeat Q15 minute BG checks and treatment. Call MD for each episode of hypoglycemia. (No admins recorded for this medication) enoxaparin (LOVENOX) syringe 40 mg [[id number]] Ordering Provider: Mireya Cruz NP Status: Dispensed Ordered On: 03/11/192141 Start: 03/11/192214 Dose (Remaining/Total): 40 mg (--/--) Route: subcutaneous Frequency: Every 12 hours scheduled Rate/Duration: -- / -- Timestamps Action Dose Route / Site Other Information 03/14/19 08 Given 40 mg subcutaneous Left Lower Abdomen Performed by: Estefany Al RN metoprolol (LOPRESSOR) tablet 12.5 mg [[id number]] Ordering Provider: Mireya Cruz NP Status: Dispensed Ordered On: 03/11/192152 Start: 03/11/192229 Dose (Remaining/Total): 12.5 mg (--/--) Route: oral Frequency: 2 times daily Rate/Duration: -- / -- Timestamps Action Dose Route Other Information 03/14/19 0822 Given 12.5 mg oral Performed by: Estefany Al RN insulin lispro (HumaLOG) injection 1-3 Units [[id number]] Ordering Provider: Mireya Cruz NP Status: Verified Ordered On: 03/11/19 2246 Start: 03/12/19 0800 Dose (Remaining/Total): 1-3 Units (--/--) Route: subcutaneous Frequency: 3 times daily with meals Rate/Duration: -- / -- Admin Instructions: Blood Sugar Low Dose meal time - PO patients 175 or less No Insulin 176 - 200 1 unit 201 - 250 2 units 251 - 299 3 units Greater than 299 Call MD for hyperglycemia management instructions Do NOT hold for NPO status. Timestamps Action Dose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 5:06 PM CDT) Glucose, POC 171 70 - 199 mg/dL [facility] Blood specimen (specimen) 03/15/2019 5:06 PM CDT 03/15/2019 5:06 PM CDT Alvaro Ortez DO LAB POCT ORDERABLES - D EVICE Final Result Performing Organization Address [facility] [place] [address] * (ABNORMAL) POCT glucose (03/15/2019 11:47 AM CDT) Glucose, POC 216(H) 70 - 199 mg/dL [facility] Blood specimen (specimen) 03/15/2019 11:47 AM CDT 03/15/2019 11:47 AM CDT Alvaro Ortez DO LAB POCT ORDERABLES - D EVICE Final Result Performing Organization Address [facility] [place] [address] * POCT glucose (03/15/2019 7:56 AM CDT) Glucose, POC 173 70 - 199 mg/dL [facility] Blood specimen (specimen) 03/15/2019 7:56 AM CDT 03/15/2019 7:56 AM CDT Alvaro Ortez DO LAB POCT ORDERABLES - D EVICE Final Result Performing Organization Address [facility] de Phone Number [facility] [place] [address] * (ABNORMAL) Protime-INR (03/15/2019 12:29 AM CDT) PT 34.0(H) 8.6 - 13.0 sec [facility] INR 3.08(H) 0.80 - 1.20 [facility] Comment: Interpretive Data Inpatient therapeutic ranges* Atrial fibrillation ?2.0-3.0 INR Venous thrombo-embolism ?2.0-3.0 INR Bioprosthetic heart valve ?* Mechanical heart valve, bileaflet or tilting disk,aortic position ? 2.0-3.0 INR All other,or bileaflet or tilting disk, in mitral position ? 2.5-3.5 INR *See the pharmacy resource directory (PHRED) for an updated copy of the Tool Book at [email or web address] Current Interpretive Data was last revised 2011. Blood specimen (specimen) 03/15/2019 12:29 AM CDT 03/15/2019 12:41 AM CDT Alvaro Ortez DO LAB BLOOD ORDERABLES Fi nal Result Performing Organization Address [facility]/ZIP Co de Phone Number [facility] Department [place] [address] * (ABNORMAL) POCT glucose (03/14/2019 7:56 PM CDT) Glucose, POC 224(H) 70 - 199 mg/dL [facility] Blood specimen (specimen) 03/14/2019 7:56 PM CDT 03/14/2019 7:56 PM CDT Alvaro Ortez DO LAB POCT ORDERABLES - D EVICE Final Result Performing Organization Address [facility]/ZIP Co de Phone Number [facility] Department [place] [address] * (ABNORMAL) POCT glucose (03/14/2019 4:33 PM CDT) Glucose, POC 267(H) 70 - 199 mg/dL [facility] Blood specimen (specimen) 03/14/2019 4:33 PM CDT 03/14/2019 4:33 PM CDT Alvaro Ortez DO LAB POCT ORDERABLES - D EVICE Final Result Performing Organization Address [facility] [place] [address] * (ABNORMAL) POCT glucose (03/14/2019 11:30 AM CDT) Glucose, POC 218(H) 70 - 199 mg/dL [facility] Blood specimen (specimen) 03/14/2019 11:30 AM CDT 03/14/2019 11:30 AM CDT Alvaro Ortez DO LAB POCT ORDERABLES - D EVICE Final Result Performing Organization Address [facility] de Phone Number [facility] [place] [address] * POCT glucose (03/14/2019 8:16 AM CDT) [facility] Signature Glucose, POC 179 70 - 199 mg/dL [facility] Blood specimen (specimen) 03/14/2019 8:16 AM CDT 03/14/2019 8:16 AM CDT Alvaro Ortez DO LAB POCT ORDERABLES - D EVICE Final Result Performing Organization Address [facility] [place] [address] * (ABNORMAL) Protime-INR (03/13/2019 8:09 PM CDT) [facility] PT 28.1(H) 8.6 - 13.0 sec [facility] INR 2.55(H) 0.80 - 1.20 [facility] Comment: Interpretive Data Inpatient therapeutic ranges* Atrial fibrillation ?2.0-3.0 INR Venous thrombo-embolism ?2.0-3.0 INR Bioprosthetic heart valve ?* Mechanical heart valve, bileaflet or tilting disk,aortic position ? 2.0-3.0 INR All other,or bileaflet or tilting disk, in mitral position ? 2.5-3.5 INR *See the pharmacy resource directory (PHRED) for an updated copy of the Tool Book at [email or web address] Current Interpretive Data was last revised 2011. Blood specimen (specimen) 03/13/2019 8:09 PM CDT 03/13/2019 8:24 PM CDT Alvaro Ortez DO LAB BLOOD ORDERABLES Fi nal Result Performing Organization Address [facility] Co de Phone Number [facility] Department [place] [address] * (ABNORMAL) POCT glucose (03/13/2019 8:08 PM CDT) Glucose, POC 233(H) 70 - 199 mg/dL [facility] Blood specimen (specimen) 03/13/2019 8:08 PM CDT 03/13/2019 8:08 PM CDT Alvaro Ortez DO LAB POCT ORDERABLES - D EVICE Final Result Performing Organization Address City/[facility] Co de Phone Number [facility] [place] [address] * (ABNORMAL) POCT glucose (03/13/2019 5:25 PM CDT) Glucose, POC 223(H) 70 - 199 mg/dL [facility] Blood specimen (specimen) 03/13/2019 5:25 PM CDT 03/13/2019 5:25 PM CDT Alvaro Ortez DO LAB POCT ORDERABLES - D EVICE Final Result Performing Organization Address [facility] Co de Phone Number [facility] Department [place] [address] * (ABNORMAL) POCT glucose (03/13/2019 12:25 PM CDT) Glucose, POC 212(H) 70 - 199 mg/dL [facility] Blood specimen (specimen) 03/13/2019 12:25 PM CDT 03/13/2019 12:25 PM CDT Alvaro Ortez DO LAB POCT ORDERABLES - D EVICE Final Result Performing Organization Address [facility] Co de Phone Number [facility] [place] [address] * POCT glucose (03/13/2019 8:11 AM CDT) Glucose, POC 153 70 - 199 mg/dL [facility] Blood specimen (specimen) 03/13/2019 8:11 AM CDT 03/13/2019 8:11 AM CDT Alvaro Ortez DO LAB POCT ORDERABLES - D EVICE Final Result Performing Organization Address City/[facility] [place] [address] * POCT glucose (03/12/2019 8:31 PM CDT) Glucose, POC 191 70 - 199 mg/dL [facility] Blood specimen (specimen) 03/12/2019 8:31 PM CDT 03/12/2019 8:31 PM CDT Alvaro Ortez DO LAB POCT ORDERABLES - D NILE Final Result [facility] Department [place] [address] * (ABNORMAL) Differential, auto (03/12/2019 6:59 PM CDT) Neutrophil abs 4.1 1.7 - 6.5 K/cumm [facility] Imm gran abs 0.1 0.0 - 0.1 K/cumm [facility] Lymphocyte abs 1.2 0.8 - 3.3 K/cumm [facility] Monocyte abs 1.5(H) 0.2 - 0.8 K/cumm [facility] Eosinophil abs 0.1 0.0 - 0.5 K/cumm [facility] Basophil abs 0.0 0.0 - 0.1 K/cumm [facility] Neutrophil pct 57.9 % [facility] Comment: Interpretive Data Percent cell count reference ranges are not reported, since discordance with absolute values may lead to misinterpretation of CBC data. Current Interpretive Data was last revised on 2017. Imm gran pct 1.0 % [facility] Comment: Interpretive Data Percent cell count reference ranges are not reported, since discordance with absolute values may lead to misinterpretation of CBC data. Current Interpretive Data was last revised on 2017. Lymphocyte pct 17.5 % [facility] Comment: Interpretive Data Percent cell count reference ranges are not reported, since discordance with absolute values may lead to misinterpretation of CBC data. Current Interpretive Data was last revised on 2017. Monocyte pct 22.0 % [facility] Comment: Interpretive Data Percent cell count reference ranges are not reported, since discordance with absolute values may lead to misinterpretation of CBC data. Current Interpretive Data was last revised on 2017. Eosinophil pct 1.0 % [facility] Comment: Interpretive Data Percent cell count reference ranges are not reported, since discordance with absolute values may lead to misinterpretation of CBC data. Current Interpretive Data was last revised on 2017. Basophil pct 0.6 % [facility] Comment: Interpretive Data Percent cell count reference ranges are not reported, since discordance with absolute values may lead to misinterpretation of CBC data. Current Interpretive Data was last revised on 2017. Blood specimen (specimen) 03/12/2019 6:59 PM CDT 03/12/2019 7:26 PM CDT Taras Cisneros MD LAB BLOOD ORDERABLES Final R esult Performing Organization Address [facility] Co de Phone Number [facility] [address] * aPTT (03/12/2019 6:59 PM CDT) aPTT 34.5 25.0 - 37.0 sec [facility] Comment: Interpretive Data Therapeutic heparin range:60.0 - 94.0 sec based on correlation with therapeutic heparin activity range of 0.3 -0.7 Units/mL. Current interpretive data was last revised on 2011. Blood specimen (specimen) 03/12/2019 6:59 PM CDT 03/12/2019 7:06 PM CDT Narrative [facility] - 03/12/2019 7:32 PM CDT If not done in last 48 hours. Alvaro Ortez DO LAB BLOOD ORDERABLES Fi nal Result Performing Organization Address [facility] Co de Phone Number [facility] [place] [address] * (ABNORMAL) Protime-INR (03/12/2019 6:59 PM CDT) PT 25.6(H) 8.6 - 13.0 sec [facility] INR 2.33(H) 0.80 - 1.20 [facility] Comment: Interpretive Data Inpatient therapeutic ranges* Atrial fibrillation ?2.0-3.0 INR Venous thrombo-embolism ?2.0-3.0 INR Bioprosthetic heart valve ?* Mechanical heart valve, bileaflet or tilting disk,aortic position ? 2.0-3.0 INR All other,or bileaflet or tilting disk, in mitral position ? 2.5-3.5 INR *See the pharmacy resource directory (PHRED) for an updated copy of the Tool Book at [email or web address] Current Interpretive Data was last revised 2011. Blood specimen (specimen) 03/12/2019 6:59 PM CDT 03/12/2019 7:06 PM CDT Narrative [facility] - 03/12/2019 7:32 PM CDT If not done in last 48 hours. Alvaro Ortez DO LAB BLOOD ORDERABLES Fi nal Result [facility] Department [place] [address] * Basic metabolic panel (03/12/2019 6:59 PM CDT) Sodium 138 135 - 145 mmol/L [facility] Potassium, pl 4.7 3.3 - 4.9 mmol/L [facility] Chloride 106 97 - 110 mmol/L [facility] CO2 25 22 - 32 mmol/L [facility] Anion gap 7 2 - 15 mmol/L [facility] BUN 17 8 - 25 mg/dL [facility] Creatinine 1.29 0.80 - 1.30 mg/dL [facility] Glucose 186 70 - 199 mg/dL [facility] Comment: Interpretive Data Fasting glucose >/= 126 [...] classification and Diagnosis of Diabetes Diabetes Care 2017;40 (Suppl. 1):S11. Current interpretive data was last revised 2017. Calcium 8.7 8.5 - 10.3 mg/dL [facility] Blood specimen (specimen) 03/12/2019 6:59 PM CDT 03/12/2019 7:25 PM CDT us Taras Cisneros MD LAB BLOOD ORDERABLES Final R esult [facility] Department [place] [address] * (ABNORMAL) CBC with auto differential (03/12/2019 6:59 PM CDT) WBC 7.0 3.8 - 9.9 K/cumm [facility] Hgb 14.1 13.0 - 17.5 g/dL [facility] Hct 44.3 38.9 - 50.3 % [facility] Plt 289 150 - 400 K/cumm [facility] MPV 10.4 9.1 - 12.3 fL [facility] RBC 5.21 4.30 - 5.80 M/cumm [facility] MCV 85.0 81.3 - 96.4 fL [facility] MCH 27.1 27.1 - 33.3 pg [facility] MCHC 31.8(L) 32.3 - 35.7 g/dL [facility] RDW CV 17.7(H) 11.1 - 14.9 % [facility] RDW SD 54.5(H) 35.7 - 48.1 fL [facility] NRBC abs 0.00 0.00 - 0.01 K/cumm [facility] Blood specimen (specimen) 03/12/2019 6:59 PM CDT 03/12/2019 7:26 PM CDT us Taras Cisneros MD LAB BLOOD ORDERABLES Final R esult Performing Organization Address [facility] Co de Phone Number [facility] [place] [address] * POCT glucose (03/12/2019 5:43 PM CDT) Glucose, POC 185 70 - 199 mg/dL [facility] Blood specimen (specimen) 03/12/2019 5:43 PM CDT 03/12/2019 5:43 PM CDT us Alvaro Ortez DO LAB POCT ORDERABLES - D EVICE Final Result Performing Organization Address [facility] de Phone Number [facility] [place] [address] * POCT glucose (03/12/2019 11:54 AM CDT) Glucose, POC 132 70 - 199 mg/dL [facility] Blood specimen (specimen) 03/12/2019 11:54 AM CDT 03/12/2019 11:54 AM CDT us Alvaro Ortez DO LAB POCT ORDERABLES - D EVICE Final Result Performing Organization Address [facility] Co de Phone Number [facility] [place] [address] * POCT glucose (03/12/2019 8:12 AM CDT) Glucose, POC 117 70 - 199 mg/dL [facility] Blood specimen (specimen) 03/12/2019 8:12 AM CDT 03/12/2019 8:12 AM CDT us Alvaro Peter Neelima DO LAB POCT ORDERABLES - D EVICE Final Result Performing Organization Address City/[facility]/ZIP Co de Phone Number [facility] Department [place] [address] * (ABNORMAL) Protime-INR (03/12/2019 5:04 AM CDT) PT 25.0(H) 8.6 - 13.0 sec [facility] INR 2.28(H) 0.80 - 1.20 [facility] Comment: Interpretive Data Inpatient therapeutic ranges* Atrial fibrillation ?2.0-3.0 INR Venous thrombo-embolism ?2.0-3.0 INR Bioprosthetic heart valve ?* Mechanical heart valve, bileaflet or tilting disk,aortic position ? 2.0-3.0 INR All other,or bileaflet or tilting disk, in mitral position ? 2.5-3.5 INR *See the pharmacy resource directory (PHRED) for an updated copy of the Tool Book at [email or web address] Current Interpretive Data was last revised 2011. Blood specimen (specimen) 03/12/2019 5:04 AM CDT 03/12/2019 5:10 AM CDT Alvaro Ortez DO LAB BLOOD ORDERABLES Fi nal Result Performing Organization Address [facility] Co de Phone Number [facility] Department [place] [address] * (ABNORMAL) Protime-INR (03/11/2019 11:57 PM CDT) PT 24.5(H) 8.6 - 13.0 sec [facility] INR 2.23(H) 0.80 - 1.20 [facility] Comment: Interpretive Data Inpatient therapeutic ranges* Atrial fibrillation ?2.0-3.0 INR Venous thrombo-embolism ?2.0-3.0 INR Bioprosthetic heart valve ?* Mechanical heart valve, bileaflet or tilting disk,aortic position ? 2.0-3.0 INR All other,or bileaflet or tilting disk, in mitral position ? 2.5-3.5 INR *See the pharmacy resource directory (PHRED) for an updated copy of the Tool Book at [email or web address] Current Interpretive Data was last revised 2011. Blood specimen (specimen) 03/11/2019 11:57 PM CDT 03/12/2019 12:06 AM CDT Mireya Cruz [employer] LAB BLOOD ORDERABLES Final Resul t Performing Organization Address City/[facility] Co de Phone Number [facility] Department [place] [address] * POCT glucose (03/11/2019 10:33 PM CDT) Glucose, POC 102 70 - 199 mg/dL [facility] Blood specimen (specimen) 03/11/2019 10:33 PM CDT 03/11/2019 10:33 PM CDT Alvaro Ortez DO LAB POCT ORDERABLES - D EVICE Final Result Performing Organization Address [facility] de Phone Number [facility] Department [place] [address] * Prepare RBC: 2 Units (03/11/2019 8:17 PM CDT) Product code [id number] [facility] Unit Number [id number] 2-6 [facility] Product Blood Type APOS [facility] Dispense Status RETURNED [facility] Product code [id number] [facility] Unit Number [id number] 7-X [facility] Product Blood Type APOS [facility] Dispense Status RETURNED [facility] Blood specimen (specimen) 03/11/2019 8:17 PM CDT 03/11/2019 8:19 PM CDT Narrative [facility] - 03/12/2019 7:50 AM CDT Specify Procedure:->ORIF R femur Are special requirements needed? (all products are leukoreduced)->No THE [facility] COLLECTION LOCATION IS [address] # of [id number] Reasons:-Hold for procedure (specify procedure)} us Taras Cisneros MD BLOOD BANK PRODUCT ORDER[place] [address] * POCT glucose (03/11/2019 8:09 PM CDT) Pathologist [facility] Glucose, POC 118 70 - 199 mg/dL [facility] Blood specimen (specimen) 03/11/2019 8:09 PM CDT 03/11/2019 8:09 PM CDT us Ketan Bartholomew MD LAB POCT ORDERABLES - [place] [address] * ECG 12-LEAD (03/11/2019 5:47 PM CDT) Narrative [facility] - 03/11/2019 5:47 PM CDT Taras Cisneros MD ? 03/11/2019 ??5:48 PM ECG 12 lead Date/Time: 03/11/2019 5:47 PM Performed by: Taras Cisneros MD Authorized by: Collin Melendez MD Rate: ??ECG rate: ??68 ??ECG rate assessment: normal ?? Rhythm: ??Rhythm: sinus rhythm ?? Ectopy: ??Ectopy: none ?? QRS: ??QRS axis: ??Normal ??QRS intervals: ??Normal Conduction: ??Conduction: normal ?? ST segments: ??ST segments: ??Normal T waves: ??T waves: normal ?? Previous ECG: ??Previous ECG: ??Unavailable Interpretation: ??Interpretation: normal ?? Recommended Follow-up: ??Recommended follow up: further workup in the ED ?? Procedure Note Taras Cisneros MD - 03/11/2019 5:47 PM CDT Procedure ECG 12 lead Date/Time: 03/11/2019 5:47 PM Performed by: Taras Cisneros MD Authorized by: Collin Melendez MD Rate: ECG rate: 68 ECG rate assessment: normal Rhythm: Rhythm: sinus rhythm Ectopy: Ectopy: none QRS: QRS axis: Normal QRS intervals: Normal Conduction: Conduction: normal ST segments: ST segments: Normal T waves: T waves: normal Previous ECG: Previous ECG: Unavailable Interpretation: Interpretation: normal Recommended Follow-up: Recommended follow up: further workup in the ED Taras Cisneros MD 03/11/19 [id number] us Collin Melendez MD ECG ORDERABLES Fin al Result [facility] * POCT glucose (03/11/2019 4:14 PM CDT) Glucose, POC 87 70 - 199 mg/dL [facility] Blood specimen (specimen) 03/11/2019 4:14 PM CDT 03/11/2019 4:14 PM CDT us Ketan Bartholomew MD LAB POCT ORDERABLES - DEVIC E Final Result [facility] Department [place] [address] * CT Ankle Left WO Contrast (03/11/2019 4:01 PM CDT) Anatomical Region Laterality Modality Ankle Left Computed Tomogra phy 03/11/2019 5:39 PM CDT Impressions 03/11/2019 5:42 PM CDT 1. ??Bimalleolar left ankle fracture with acute on chronic deltoid ligament avulsion fracture and syndesmotic injury. 2. ??Diffuse edema throughout the soft tissues of the ankle. 3. ??Nonspecific global fatty atrophy of the left lower calf and foot muscles. Dictated by: Levy Zhu M.D. The radiology attending physician has personally reviewed this study, and had reviewed and/or edited this written report and agrees with it. Electronically signed by: Prakash Hinkle M.D. Narrative 03/11/2019 5:42 PM CDT EXAMINATION: 1. ?CT ANKLE LEFT WO CONTRAST HISTORY: Left ankle fracture. FINDINGS: Multiple contiguous axial images were obtained through the left ankle and reconstructed in bone and soft tissue windows. Coronal and sagittal reconstructions were provided. ??Comparison is made to left ankle radiographs of the same date. There is a mildly displaced oblique intra-articular fracture of the lateral malleolus extending to the syndesmosis and ankle joint and a mildly displaced, comminuted, intra-articular fracture of the posterior malleolus. ??There is widening of the medial ankle joint space with ossific densities within the joint space which may reflect and acute on chronic deltoid ligament avulsion fracture. There is a chronic appearing deformity along the anterior process of the calcaneus which may represent an old fracture. 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 ??There is a plantar calcaneal spur. ??There is heterotopic ossification along the insertion of the Achilles tendon. ??There is diffuse edema in the soft tissues adjacent to the ankle. ??There is nonspecific global fatty atrophy of the left lower calf and foot muscles. Procedure Note Prakash Hinkle MD - 03/11/2019 EXAMINATION: 1. CT ANKLE LEFT WO CONTRAST HISTORY: Left ankle fracture. FINDINGS: Multiple contiguous axial images were obtained through the left ankle and reconstructed in bone and soft tissue windows. Coronal and sagittal reconstructions were provided. Comparison is made to left ankle radiographs of the same date. There is a mildly displaced oblique intra-articular fracture of the lateral malleolus extending to the syndesmosis and ankle joint and a mildly displaced, comminuted, intra-articular fracture of the posterior malleolus. There is widening of the medial ankle joint space with ossific densities within the joint space which may reflect and acute on chronic deltoid ligament avulsion fracture. There is a chronic appearing deformity along the anterior process of the calcaneus which may represent an old fracture. 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 There is a plantar calcaneal spur. There is heterotopic ossification along the insertion of the Achilles tendon. There is diffuse edema in the soft tissues adjacent to the ankle. There is nonspecific global fatty atrophy of the left lower calf and foot muscles. IMPRESSION: 1. Bimalleolar left ankle fracture with acute on chronic deltoid ligament avulsion fracture and syndesmotic injury. 2. Diffuse edema throughout the soft tissues of the ankle. 3. Nonspecific global fatty atrophy of the left lower calf and foot muscles. Dictated by: Levy Zhu M.D. The radiology attending physician has personally reviewed this study, and had reviewed and/or edited this written report and agrees with it. Electronically signed by: Prakash Hinkle M.D. Ketan Bartholomew MD IM CT PROCEDURES Final Res ult * XR Ankle Left 3 or More Views (03/11/2019 3:42 PM CDT) Anatomical Region Laterality Modality Lower Extremities, Ankle Left Compute d Radiography 03/11/2019 4:53 PM CDT Impressions 03/11/2019 4:55 PM CDT 1. ??Post reduction with splint, with reestablished alignment of tibiotalar joint. 2. ??Redemonstration of Shi B fracture of left fibula and avulsion fracture of medial malleolus. Dictated by: Augustine Cobb M.D. The radiology attending physician has personally reviewed this study, and had reviewed and/or edited this written report and agrees with it. Electronically signed by: Navin Edmond M.D. Narrative 03/11/2019 4:55 PM CDT EXAMINATION: XR ankle left 3 or more views HISTORY: 78-year-old male, presenting after fall from truck with Shi B fracture of the left fibula, avulsion fracture of the medial malleolus and medial ligamentous injury. ??Postreduction imaging. COMPARISON: 03/11/2019 1:28 PM, 03/11/2019 2:42 PM FINDINGS: There has been interval placement of a splint, which obscures the osseous and soft tissues. ??Redemonstrated is a mildly displaced Shi B fracture of the left fibula with intra-articular extension. ??Also redemonstrated is avulsion fracture of the medial malleolus. Procedure Note Navin Edmond MD - 03/11/2019 EXAMINATION: XR ankle left 3 or more views HISTORY: 78-year-old male, presenting after fall from truck with Shi B fracture of the left fibula, avulsion fracture of the medial malleolus and medial ligamentous injury. Postreduction imaging. COMPARISON: 03/11/2019 1:28 PM, 03/11/2019 2:42 PM FINDINGS: There has been interval placement of a splint, which obscures the osseous and soft tissues. Redemonstrated is a mildly displaced Shi B fracture of the left fibula with intra-articular extension. Also redemonstrated is avulsion fracture of the medial malleolus. IMPRESSION: 1. Post reduction with splint, with reestablished alignment of tibiotalar joint. 2. Redemonstration of Shi B fracture of left fibula and avulsion fracture of medial malleolus. Dictated by: Augustine Cobb M.D. The radiology attending physician has personally reviewed this study, and had reviewed and/or edited this written report and agrees with it. Electronically signed by: Navin Edmond M.D. Ketan Bartholomew MD IMG XR PROCEDURES Final Res ult * XR Ankle Left 2 Views (03/11/2019 2:54 PM CDT) Anatomical Region Laterality Modality Lower Extremities, Ankle Left Compute d Radiography 03/11/2019 3:19 PM CDT Impressions 03/11/2019 4:20 PM CDT 1. Shi B fracture of the left fibula with intraarticular extension. 2. Avulsion fracture of the medial malleolus. 3. Medial clear space widening on stress views indicative of medial ligamentous injury. Dictated by: Juliet Sosa M.D. The radiology attending physician has personally reviewed this study, and had reviewed and/or edited this written report and agrees with it. Electronically signed by: Navin Edmond M.D. Narrative 03/11/2019 4:20 PM CDT EXAMINATION: 3 views of the left foot, 2 views of the left tibia-fibula, and 3 views of the left ankle, including an additional 2 views of the left ankle with an AP view in stress. HISTORY: Trauma. FINDINGS: There is a mildly displaced oblique spiral fracture of the distal left fibula with intra-articular extension. ??No proximal fibular fracture. Linear density along the medial malleolus, likely small avulsion fracture. ??There are moderate degenerative changes of the midfoot. ??There is widening of the medial clear space by approximately 12 mm on stress views. Small Achilles and plantar calcaneal enthesophytes. ??There is diffuse soft tissue swelling about the left ankle. ??Scattered soft tissue calcifications, likely phleboliths. ??The remainder of the foot and ankle appear intact. 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 Procedure Note Navin Edmond MD - 03/11/2019 EXAMINATION: 3 views of the left foot, 2 views of the left tibia-fibula, and 3 views of the left ankle, including an additional 2 views of the left ankle with an AP view in stress. HISTORY: Trauma. FINDINGS: There is a mildly displaced oblique spiral fracture of the distal left fibula with intra-articular extension. No proximal fibular fracture. Linear density along the medial malleolus, likely small avulsion fracture. There are moderate degenerative changes of the midfoot. There is widening of the medial clear space by approximately 12 mm on stress views. Small Achilles and plantar calcaneal enthesophytes. There is diffuse soft tissue swelling about the left ankle. Scattered soft tissue calcifications, likely phleboliths. The remainder of the foot and ankle appear intact. 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 IMPRESSION: 1. Shi B fracture of the left fibula with intraarticular extension. 2. Avulsion fracture of the medial malleolus. 3. Medial clear space widening on stress views indicative of medial ligamentous injury. Dictated by: Juliet Sosa M.D. The radiology attending physician has personally reviewed this study, and had reviewed and/or edited this written report and agrees with it. Electronically signed by: Navin Edmond M.D. Ketan Bartholomew MD IMG XR PROCEDURES Final Res ult * (ABNORMAL) Urinalysis, microscopic only (03/11/2019 2:17 PM CDT) WBC, ur 0-5 0 - 5 /HPF [facility] RBC, ur 11-20(A) 0 - 2 /HPF [facility] Epithelial cells, squamous, ur 1-5 0 - 5 /HPF [facility] Mucous, ur Present(A) [facility] Urine 03/11/2019 2:17 PM CDT 03/11/2019 2:22 PM CDT Jefferson Brito MD LAB URINE ORDERABLES nal Result [facility] Department [place] [address] * (ABNORMAL) Urinalysis reflex to microscopic and culture Urine (03/11/2019 2:17 PM CDT) Color, ur Yellow Yellow [facility] Clarity, ur Clear Clear [facility] Specific gravity, ur 1.019 1.010 - 1.[address] [facility] pH, urine 5 [facility] Protein, ur ql Negative Negative [facility] Glucose, ur ql Negative Negative [facility] Ketones, ur Negative Negative [facility] Bilirubin, ur Negative Negative [facility] Blood, ur 1+(A) Negative [facility] Urobilinogen, ur <2.0 <2.0 mg/dL [facility] Nitrite, ur Negative Negative [facility] Leukocyte esterase, ur Negative Negative [facility] Urine 03/11/2019 2:17 PM CDT 03/11/2019 2:22 PM CDT Narrative [facility] - 03/11/2019 2:31 PM CDT THE BJ COLLECTION LOCATION IS [facility] CC-05 Urine pH is affected by diet, medications, systemic acid-base disturbances, and renal tubular function. ??pH may affect urinary stone formation. ??For example, urine pH below 6.0 may help reduce the tendency for calcium phosphate stones and pH greater than 6.0 may reduce the tendency for uric acid stone formation. Source: [employer]. Last revised 08-13-2017 Jefferson Brito MD LAB MICROBIOLOGY - [facility] ORDERABLES Final Result [facility] Department [place] [address] * XR Tibia Fibula Left 2 Views (03/11/2019 1:54 PM CDT) Anatomical Region Laterality Modality Lower Extremities, Lower Leg Left Com puted Radiography 03/11/2019 2:59 PM CDT Impressions 03/11/2019 4:20 PM CDT 1. Shi B fracture of the left fibula with intraarticular extension. 2. Avulsion fracture of the medial malleolus. 3. Medial clear space widening on stress views indicative of medial ligamentous injury. Dictated by: Juliet Sosa M.D. The radiology attending physician has personally reviewed this study, and had reviewed and/or edited this written report and agrees with it. Electronically signed by: Navin Edmond M.D. Narrative 03/11/2019 4:20 PM CDT EXAMINATION: 3 views of the left foot, 2 views of the left tibia-fibula, and 3 views of the left ankle, including an additional 2 views of the left ankle with an AP view in stress. HISTORY: Trauma. FINDINGS: There is a mildly displaced oblique spiral fracture of the distal left fibula with intra-articular extension. ??No proximal fibular fracture. Linear density along the medial malleolus, likely small avulsion fracture. ??There are moderate degenerative changes of the midfoot. ??There is widening of the medial clear space by approximately 12 mm on stress views. Small Achilles and plantar calcaneal enthesophytes. ??There is diffuse soft tissue swelling about the left ankle. ??Scattered soft tissue calcifications, likely phleboliths. ??The remainder of the foot and ankle appear intact. 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 Procedure Note Navin Edmond MD - 03/11/2019 EXAMINATION: 3 views of the left foot, 2 views of the left tibia-fibula, and 3 views of the left ankle, including an additional 2 views of the left ankle with an AP view in stress. HISTORY: Trauma. FINDINGS: There is a mildly displaced oblique spiral fracture of the distal left fibula with intra-articular extension. No proximal fibular fracture. Linear density along the medial malleolus, likely small avulsion fracture. There are moderate degenerative changes of the midfoot. There is widening of the medial clear space by approximately 12 mm on stress views. Small Achilles and plantar calcaneal enthesophytes. There is diffuse soft tissue swelling about the left ankle. Scattered soft tissue calcifications, likely phleboliths. The remainder of the foot and ankle appear intact. 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 IMPRESSION: 1. Shi B fracture of the left fibula with intraarticular extension. 2. Avulsion fracture of the medial malleolus. 3. Medial clear space widening on stress views indicative of medial ligamentous injury. Dictated by: Juliet Sosa M.D. The radiology attending physician has personally reviewed this study, and had reviewed and/or edited this written report and agrees with it. Electronically signed by: Navin Edmond M.D. Jefferson Anant Brito MD IMG XR PROCEDURES Final Result * XR Pelvis 1 or 2 Views (03/11/2019 1:54 PM CDT) Anatomical Region Laterality Modality Body, Pelvis N/A Computed Radiogr aphy 03/11/2019 3:00 PM CDT Impressions 03/11/2019 9:56 PM CDT No acute fracture. Dictated by: Juliet Sosa M.D. The radiology attending physician has personally reviewed this study, and had reviewed and/or edited this written report and agrees with it. Electronically signed by: Navin Edmond M.D. Narrative 03/11/2019 9:56 PM CDT EXAMINATION: Single view of the pelvis. HISTORY: Trauma. COMPARISON: CT of the abdomen and pelvis dated 03/23/2016. FINDINGS: No acute fracture or dislocation on single view of the pelvis. 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 ??Partially visualized fixation hardware of the inferior lumbar spine. ??Normal SI joints. Procedure Note Navin Edmond MD - 03/11/2019 EXAMINATION: Single view of the pelvis. HISTORY: Trauma. COMPARISON: CT of the abdomen and pelvis dated 03/23/2016. FINDINGS: No acute fracture or dislocation on single view of the pelvis. 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 Partially visualized fixation hardware of the inferior lumbar spine. Normal SI joints. IMPRESSION: No acute fracture. Dictated by: Juliet Sosa M.D. The radiology attending physician has personally reviewed this study, and had reviewed and/or edited this written report and agrees with it. Electronically signed by: Navin Edmond M.D. Jefferson Brito MD IMG XR PROCEDURES Final Result * XR Foot Left 3 or More Views (03/11/2019 1:54 PM CDT) Anatomical Region Laterality Modality Lower Extremities, Foot Left Computed Radiography 03/11/2019 2:59 PM CDT Impressions 03/11/2019 4:20 PM CDT 1. Shi B fracture of the left fibula with intraarticular extension. 2. Avulsion fracture of the medial malleolus. 3. Medial clear space widening on stress views indicative of medial ligamentous injury. Dictated by: Juliet Sosa M.D. The radiology attending physician has personally reviewed this study, and had reviewed and/or edited this written report and agrees with it. Electronically signed by: Navin Edmond M.D. Narrative 03/11/2019 4:20 PM CDT EXAMINATION: 3 views of the left foot, 2 views of the left tibia-fibula, and 3 views of the left ankle, including an additional 2 views of the left ankle with an AP view in stress. HISTORY: Trauma. FINDINGS: There is a mildly displaced oblique spiral fracture of the distal left fibula with intra-articular extension. ??No proximal fibular fracture. Linear density along the medial malleolus, likely small avulsion fracture. ??There are moderate degenerative changes of the midfoot. ??There is widening of the medial clear space by approximately 12 mm on stress views. Small Achilles and plantar calcaneal enthesophytes. ??There is diffuse soft tissue swelling about the left ankle. ??Scattered soft tissue calcifications, likely phleboliths. ??The remainder of the foot and ankle appear intact. 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 Procedure Note Navin Edmond MD - 03/11/2019 EXAMINATION: 3 views of the left foot, 2 views of the left tibia-fibula, and 3 views of the left ankle, including an additional 2 views of the left ankle with an AP view in stress. HISTORY: Trauma. FINDINGS: There is a mildly displaced oblique spiral fracture of the distal left fibula with intra-articular extension. No proximal fibular fracture. Linear density along the medial malleolus, likely small avulsion fracture. There are moderate degenerative changes of the midfoot. There is widening of the medial clear space by approximately 12 mm on stress views. Small Achilles and plantar calcaneal enthesophytes. There is diffuse soft tissue swelling about the left ankle. Scattered soft tissue calcifications, likely phleboliths. The remainder of the foot and ankle appear intact. 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 IMPRESSION: 1. Shi B fracture of the left fibula with intraarticular extension. 2. Avulsion fracture of the medial malleolus. 3. Medial clear space widening on stress views indicative of medial ligamentous injury. Dictated by: Juliet Sosa M.D. The radiology attending physician has personally reviewed this study, and had reviewed and/or edited this written report and agrees with it. Electronically signed by: Navin Edmond M.D. Jefferson Brito MD IMG XR PROCEDURES Final Result * XR Chest 1 Vw Portable (03/11/2019 1:54 PM CDT) Anatomical Region Laterality Modality Body, Chest N/A Computed Radiogr aphy 03/11/2019 3:01 PM CDT Impressions 03/11/2019 4:22 PM CDT Comparison is made with chest radiograph dated 10/21/2016. ??Lung volumes are low with resultant crowding of bronchovascular markings. ??The lungs are clear of focal airspace disease. ??No pleural effusion or pneumothorax. ??Old Rib fractures are redemonstrated. ??No acute displaced fracture. Dictated by: Juliet Sosa M.D. The radiology attending physician has personally reviewed this study, and had reviewed and/or edited this written report and agrees with it. Electronically signed by: Navin Edmond M.D. Narrative 03/11/2019 4:22 PM CDT EXAMINATION: 1 view chest radiograph HISTORY: Trauma. Procedure Note Navin Edmond MD - 03/11/2019 EXAMINATION: 1 view chest radiograph HISTORY: Trauma. IMPRESSION: Comparison is made with chest radiograph dated 10/21/2016. Lung volumes are low with resultant crowding of bronchovascular markings. The lungs are clear of focal airspace disease. No pleural effusion or pneumothorax. Old Rib fractures are redemonstrated. No acute displaced fracture. Dictated by: Juliet Sosa M.D. The radiology attending physician has personally reviewed this study, and had reviewed and/or edited this written report and agrees with it. Electronically signed by: Navin Edmond M.D. Jefferson Brito MD IM XR PROCEDURES Final Result * XR Ankle Left 3 or More Views (03/11/2019 1:52 PM CDT) Anatomical Region Laterality Modality Lower Extremities, Ankle Left Compute d Radiography 03/11/2019 2:59 PM CDT Impressions 03/11/2019 4:20 PM CDT 1. Shi B fracture of the left fibula with intraarticular extension. 2. Avulsion fracture of the medial malleolus. 3. Medial clear space widening on stress views indicative of medial ligamentous injury. Dictated by: Juliet Sosa M.D. The radiology attending physician has personally reviewed this study, and had reviewed and/or edited this written report and agrees with it. Electronically signed by: Navin Edmond M.D. Narrative 03/11/2019 4:20 PM CDT EXAMINATION: 3 views of the left foot, 2 views of the left tibia-fibula, and 3 views of the left ankle, including an additional 2 views of the left ankle with an AP view in stress. HISTORY: Trauma. FINDINGS: There is a mildly displaced oblique spiral fracture of the distal left fibula with intra-articular extension. ??No proximal fibular fracture. Linear density along the medial malleolus, likely small avulsion fracture. ??There are moderate degenerative changes of the midfoot. ??There is widening of the medial clear space by approximately 12 mm on stress views. Small Achilles and plantar calcaneal enthesophytes. ??There is diffuse soft tissue swelling about the left ankle. ??Scattered soft tissue calcifications, likely phleboliths. ??The remainder of the foot and ankle appear intact. 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 Procedure Note Navin Edmond MD - 03/11/2019 EXAMINATION: 3 views of the left foot, 2 views of the left tibia-fibula, and 3 views of the left ankle, including an additional 2 views of the left ankle with an AP view in stress. HISTORY: Trauma. FINDINGS: There is a mildly displaced oblique spiral fracture of the distal left fibula with intra-articular extension. No proximal fibular fracture. Linear density along the medial malleolus, likely small avulsion fracture. There are moderate degenerative changes of the midfoot. There is widening of the medial clear space by approximately 12 mm on stress views. Small Achilles and plantar calcaneal enthesophytes. There is diffuse soft tissue swelling about the left ankle. Scattered soft tissue calcifications, likely phleboliths. The remainder of the foot and ankle appear intact. 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 IMPRESSION: 1. Shi B fracture of the left fibula with intraarticular extension. 2. Avulsion fracture of the medial malleolus. 3. Medial clear space widening on stress views indicative of medial ligamentous injury. Dictated by: Juliet Sosa M.D. The radiology attending physician has personally reviewed this study, and had reviewed and/or edited this written report and agrees with it. Electronically signed by: Navin Edmond M.D. Jefferson Anant Brito MD IMG XR PROCEDURES Final Result * Lipid panel (03/11/2019 12:48 PM CDT) Cholesterol 137 30 - 199 mg/dL [facility] Comment: Interpretive Data Ages < or = 19 years ??Acceptable: ? <170 mg/dL ??Borderline high: ??170-199 mg/dL ??High: ? >or= 200 mg/dL Ages > or = 20 years ??Desirable: ?<200 mg/dL ??Borderline high: ??200-239 mg/dL ??High: ? >or= 240 mg/dL Literature References: 1. Expert Panel on Integrated Guidelines for Cardiovascular Health and Risk Reduction in Children and Adolescents. Pediatrics 2011;128:S213 2. NCEP Expert Panel. Circulation 2004;110:227 Current Interpretive Data was last revised on 2018. Triglycerides 83 <=149 mg/dL [facility] Comment: Interpretive Data Ages < or = 9 years ??Acceptable: ? <75 mg/dL ??Borderline high: ??75-99 mg/dL ??High: ? >or= 100 mg/dL Ages 10 to 20 years ??Acceptable: ? <90 mg/dL ??Borderline high: ??90-129 mg/dL ??High: ? >or= 130 mg/dL Ages > or = 20 years ??Desirable: ?<150 mg/dL ??Borderline high: ??150-199 mg/dL ??High: ? 200-499 mg/dL ?Very high: ?? >or= 499 mg/dL Literature References: 1. Expert Panel on Integrated Guidelines for Cardiovascular Health and Risk Reduction in Children and Adolescents. Pediatrics 2011;128:S213 2. NCEP Expert Panel. Circulation 2004;110:227 Current Interpretive Data was last revised on 2018. HDL 41 >=40 mg/dL [facility] Comment: Interpretive Data Ages < or = 19 years ??Acceptable: ? >45 mg/dL ??Borderline low: ?? 40-45 mg/dL ??Low: ? <40 mg/dL Ages > or = 20 years ??Desirable: ?>or= 60 mg/dL ??Low: ? <40 mg/dL Literature References: 1. Expert Panel on Integrated Guidelines for Cardiovascular Health and Risk Reduction in Children and Adolescents. Pediatrics 2011;128:S213 2. NCEP Expert Panel. Circulation 2004;110:227 Current Interpretive Data was last revised on 2018. LDL, calculated 79 <=129 mg/dL [facility] Comment: Interpretive Data Ages < or = 19 years ??Acceptable: ? <110 mg/dL ??Borderline high: ??110-129 mg/dL ??High: ?>or= 130 mg/dL Ages > or = 20 years ??Optimal: ? <100 mg/dL ??Near optimal: ?100-129 mg/dL ??Borderline high: ?? 130-159 mg/dL ??High: ?>160 mg/dL Literature References: 1. Expert Panel on Integrated Guidelines for Cardiovascular Health and Risk Reduction in Children and Adolescents. Pediatrics 2011;128:S213 2. NCEP Expert Panel. Circulation 2004;110:227 Current Interpretive Data was last revised on 2018. Non-HDL Cholesterol 96 mg/dL [facility] Comment: Interpretive Data Ages < or = 19 years ??Acceptable: ?<120 mg/dL ??Borderline high: ??120-144 mg/dL ??High: ?>145 mg/dL Ages > or = 20 years ??When triglycerides are >200 mg/dL, Non-HDL cholesterol is a secondary target of ? therapy with treatment goals that are 30 mg/dL greater than the LDL cholesterol target. ? Literature References: 1. Expert Panel on Integrated Guidelines for Cardiovascular Health and Risk Reduction in Children and Adolescents. Pediatrics 2011;128:S213 2. NCEP Expert Panel. Circulation 2004;110:227 Current Interpretive Data was last revised on 2018. Chol/HDL ratio 3 [facility] Blood specimen (specimen) 03/11/2019 12:48 PM CDT 03/11/2019 12:56 PM CDT Alvaro Ortez DO LAB BLOOD ORDERABLES Fi nal Result [facility] Department [place] [address] * (ABNORMAL) Hemoglobin A1c (03/11/2019 12:48 PM CDT) Hgb A1C 7.5(H) 4.0 - 5.6 % [facility] Estimated Average Glucose 169 mg/dL [facility] Comment: The ADA recommends reporting an estimated Average Glucose (eAG) with all Hemoglobin A1c results using the equation derived from a study of 507 normal and diabetic adults. ??Minority populations were underrepresented and children were not included. ?? (Diabetes Care 31:2632-7234, 2008). ??The eAG is not equivalent to a fasting glucose. Blood specimen (specimen) 03/11/2019 12:48 PM CDT 03/11/2019 12:59 PM CDT Alvaro Ortez DO LAB BLOOD ORDERABLES Fi nal Result [facility] Department [place] [address] * (ABNORMAL) Differential, auto (03/11/2019 12:48 PM CDT) Neutrophil abs 5.8 1.7 - 6.5 K/cumm [facility] Imm gran abs 0.0 0.0 - 0.1 K/cumm [facility] Lymphocyte abs 1.5 0.8 - 3.3 K/cumm [facility] Monocyte abs 1.2(H) 0.2 - 0.8 K/cumm [facility] Eosinophil abs 0.1 0.0 - 0.5 K/cumm [facility] Basophil abs 0.0 0.0 - 0.1 K/cumm [facility] Neutrophil pct 66.8 % [facility] Comment: Interpretive Data Percent cell count reference ranges are not reported, since discordance with absolute values may lead to misinterpretation of CBC data. Current Interpretive Data was last revised on 2017. Imm gran pct 0.6 % [facility] Comment: Interpretive Data Percent cell count reference ranges are not reported, since discordance with absolute values may lead to misinterpretation of CBC data. Current Interpretive Data was last revised on 2017. Lymphocyte pct 17.4 % [facility] Comment: Interpretive Data Percent cell count reference ranges are not reported, since discordance with absolute values may lead to misinterpretation of CBC data. Current Interpretive Data was last revised on 2017. Monocyte pct 13.3 % [facility] Comment: Interpretive Data Percent cell count reference ranges are not reported, since discordance with absolute values may lead to misinterpretation of CBC data. Current Interpretive Data was last revised on 2017. Eosinophil pct 1.4 % [facility] Comment: Interpretive Data Percent cell count reference ranges are not reported, since discordance with absolute values may lead to misinterpretation of CBC data. Current Interpretive Data was last revised on 2017. Basophil pct 0.5 % [facility] Comment: Interpretive Data Percent cell count reference ranges are not reported, since discordance with absolute values may lead to misinterpretation of CBC data. Current Interpretive Data was last revised on 2017. Blood specimen (specimen) 03/11/2019 12:48 PM CDT 03/11/2019 12:56 PM CDT Jefferson Brito MD LAB BLOOD ORDERABLES Fi nal Result Performing Organization Address [facility] Co de Phone Number [facility] Department [place] [address] * Type and screen (03/11/2019 12:48 PM CDT) Sanju, indirect Negative [facility] ABO Rh A Positive [facility] Blood specimen (specimen) 03/11/2019 12:48 PM CDT 03/11/2019 12:57 PM CDT Narrative [facility] - 03/11/2019 2:03 PM CDT Has the patient had Daratumumab (Darzalex) in the past 6 months?->Unknown THE [facility] COLLECTION LOCATION IS [address] Jefferson Brito MD LAB BLOOD BANK TEST ORD ERABLES Final Result Performing Organization Address [facility] de Phone Number [facility] Department [place] [address] * aPTT (03/11/2019 12:48 PM CDT) aPTT 34.5 25.0 - 37.0 sec [facility] Comment: Code Blue Specimen Interpretive Data Therapeutic heparin range:60.0 - 94.0 sec based on correlation with therapeutic heparin activity range of 0.3 -0.7 Units/mL. Current interpretive data was last revised on 2011. Blood specimen (specimen) 03/11/2019 12:48 PM CDT 03/11/2019 12:56 PM CDT Narrative [facility] - 03/11/2019 1:19 PM CDT THE [facility] COLLECTION LOCATION IS [address] Jefferson Brito MD LAB BLOOD ORDERABLES Fi nal Result Performing Organization Address [facility] Co de Phone Number [facility] Department [place] [address] * (ABNORMAL) Protime-INR (03/11/2019 12:48 PM CDT) PT 25.0(H) 8.6 - 13.0 sec [facility] Comment:Code Blue Specimen INR 2.28(H) 0.80 - 1.20 [facility] Comment: Code Blue Specimen Interpretive Data Inpatient therapeutic ranges* Atrial fibrillation ?2.0-3.0 INR Venous thrombo-embolism ?2.0-3.0 INR Bioprosthetic heart valve ?* Mechanical heart valve, bileaflet or tilting disk,aortic position ? 2.0-3.0 INR All other,or bileaflet or tilting disk, in mitral position ? 2.5-3.5 INR *See the pharmacy resource directory (PHRED) for an updated copy of the Tool Book at [email or web address] Current Interpretive Data was last revised 2011. Blood specimen (specimen) 03/11/2019 12:48 PM CDT 03/11/2019 12:56 PM [address]T [address] [facility] - 03/11/2019 1:19 PM CDT THE COLLECTION LOCATION IS [address] Jefferson Brito MD LAB BLOOD ORDERABLES Fi nal Result Performing Organization Address [facility] Co de Phone Number [facility] Department [place] [address] * (ABNORMAL) Basic metabolic panel (03/11/2019 12:48 PM CDT) Sodium 144 135 - 145 mmol/L [facility] Comment:Code Blue Specimen Potassium, pl 4.6 3.3 - 4.9 mmol/L [facility] Comment:Code Blue Specimen Chloride 109 97 - 110 mmol/L [facility] Comment:Code Blue Specimen CO2 28 22 - 32 mmol/L [facility] Comment:Code Blue Specimen Anion gap 7 2 - 15 mmol/L [facility] Comment:Code Blue Specimen BUN 16 8 - 25 mg/dL [facility] Comment:Code Blue Specimen Creatinine 1.47(H) 0.80 - 1.30 mg/dL [facility] Comment:Code Blue Specimen Glucose 106 70 - 199 mg/dL [facility] Comment: Code Blue Specimen Interpretive Data Fasting glucose >/= 126 mg/dl [...] classification and Diagnosis of Diabetes Diabetes Care 2017;40 (Suppl. 1):S11. Current interpretive data was last revised 2017. Calcium 9.0 8.5 - 10.3 mg/dL [facility] Comment:Alec Chavarria Specimen Blood specimen (specimen) 03/11/2019 12:48 PM CDT 03/11/2019 12:56 PM CDT Narrative [facility] - 03/11/2019 1:14 PM CDT THE COLLECTION LOCATION IS [address] Jefferson Brito MD LAB BLOOD ORDERABLES Fi nal Result [facility] Department [place] [address] * (ABNORMAL) CBC with auto differential (03/11/2019 12:48 PM CDT) WBC 8.7 3.8 - 9.9 K/cumm [facility] Comment:Code Blue Specimen Hgb 15.2 13.0 - 17.5 g/dL [facility] Hct 47.3 38.9 - 50.3 % [facility] Plt 323 150 - 400 K/cumm [facility] MPV 9.9 9.1 - 12.3 fL [facility] RBC 5.60 4.30 - 5.80 M/cumm [facility] MCV 84.5 81.3 - 96.4 fL [facility] MCH 27.1 27.1 - 33.3 pg [facility] MCHC 32.1(L) 32.3 - 35.7 g/dL [facility] RDW CV 18.9(H) 11.1 - 14.9 % [facility] RDW SD 55.8(H) 35.7 - 48.1 fL [facility] NRBC abs 0.00 0.00 - 0.01 K/cumm [facility] Blood specimen (specimen) 03/11/2019 12:48 PM CDT 03/11/2019 12:56 PM CDT Narrative [facility] - 03/11/2019 1:01 PM CDT THE COLLECTION LOCATION IS [address] us Jefferson Brito MD LAB BLOOD ORDERABLES Fi nal Result Performing Organization Address [facility] Co de Phone Number [facility] Department [place] [address] * POCT glucose (03/11/2019 12:41 PM CDT) Pathologist [facility] Glucose, POC 95 70 - 199 mg/dL [facility] Blood specimen (specimen) 03/11/2019 12:41 PM CDT 03/11/2019 12:41 PM CDT us Notinfile Unknown LAB POCT ORDERABLES - DEVICE F inal Result Performing Organization Address [facility]/State/ZIP Co de Phone Number [facility] Department [place] [address] documented in this encounter Visit Diagnoses Diagnosis Closed fracture of left distal fibula- Primary Closed fracture of distal end of left fibula, unspecified fracture morphology, initial encounter Fall, initial encounter Morbid obesity with BMI of 45.0-49.9, adult (HCC) 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) Paroxysmal atrial fibrillation (CMS/HCC) (HCC) Atrial fibrillation Hypertension Unspecified essential hypertension Paroxysmal atrial fibrillation (CMS/HCC) (HCC) Atrial fibrillation Pulmonary embolism (HCC) 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) Morbid obesity with BMI of 45.0-49.9, adult (HCC) Acute pain due to trauma Type 2 diabetes mellitus, with long-term current use of insulin (HCC) documented in this encounter Admitting Diagnoses Diagnosis Closed fracture of left distal fibula documented in this encounter Administered Medications Inactive Administered Medications - up to 3 most recent administrations Medication Order MAR Action Action Date Dose Rate Site acetaminophen (TYLENOL) tablet 1,000 mg 1,000 mg, oral, Every 6 hours scheduled, First dose on 03/12/19 at 0000 Given 03/16/2019 11:18 AM CDT 1,000 mg Given 03/16/2019 5:23 AM CDT 1,000 mg Given 03/15/2019 11:22 PM CDT 1,000 mg albuterol HFA (PROVENTIL HFA,VENTOLIN HFA,PROAIR HFA) 90 mcg/actuation inhaler 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, 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, 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), First dose on 03/12/19 at 0600 Given 03/12/2019 6:12 AM CDT 1 puff albuterol HFA (PROVENTIL HFA,VENTOLIN HFA,PROAIR HFA) 90 mcg/actuation inhaler 2 puff 2 puff, inhalation, Every 6 hours PRN, wheezing, Starting on 03/12/19 at 0830 atorvastatin (LIPITOR) tablet 20 mg 20 mg, oral, Daily, First dose on 03/12/19 at 0900 Given 03/16/2019 7:37 AM CDT 20 mg Given 03/15/2019 9:09 AM CDT 20 mg Given 03/14/2019 8:22 AM CDT 20 mg baclofen (LIORESAL) tablet 10 mg 10 mg, oral, 3 times daily PRN, muscle spasms, Starting on Thu03/11/19 at 2103 Given 03/14/2019 3:18 PM CDT 10 mg Given 03/14/2019 4:46 AM CDT 10 mg Given 03/13/2019 8:11 PM CDT 10 mg dextrose (D10W) 10% bolus 250 mL 250 mL, intravenous, at 1,000 mL/hr, Administer over 15 Minutes, Every 15 min PRN, blood glucose less than 70 mg/dL and UNABLE to swallow/take PO glucose/juice., Starting on Thu03/11/19 at 2102, After treatment for hypoglycemia, recheck BG followed by treatment every 15 minutes until the BG is greater than 100 mg/dL. Then check BG 1 hour post treatment. If BG is less than 100 mg/dL, repeat Q15 minute BG checks and treatment. Call MD for each episode of hypoglycemia., Indications: hypoglycemic disorderIndications:hypoglycemic disorder dextrose (GLUTOSE) 40 % gel 15 g 15 g, oral, Every 15 min PRN, low blood sugar, blood glucose less than 70 mg/dL, Starting on Thu03/11/19 at 2102, If patient is alert and able to [...] Call MD for each episode of hypoglycemia. CLINICAL RESOURCE COORDINATOR STATES GLUTOSE-15 CONTAINS GLUCOSE 40% W/W (50% W/V), Indications: hypoglycemic disorderIndications:hypoglycemic disorder doxycycline (VIBRAMYCIN) tablet/capsule 100 mg 100 mg, oral, 2 times daily (for quinolones,etc), First dose on Thu03/11/19 at 2145, Give 2 hrs before or 2 hrs after MVI, antacids, or other products containing sucralfate, magnesium, aluminum, iron, or zinc. May be taken without regard to meals., Indications: Prophylaxis, MedicalIndications:Prophylaxis, Medical Given 03/16/2019 5:23 AM CDT 100 mg Given 03/15/2019 5:07 PM CDT 100 mg Given 03/15/2019 5:23 AM CDT 100 mg enoxaparin (LOVENOX) syringe 40 mg 40 mg, subcutaneous, Every 12 hours scheduled, First dose on Thu03/11/19 at 2215, Indications: Deep Vein Thrombosis PreventionIndications:Deep Vein Thrombosis Prevention Given 03/16/2019 7:38 AM CDT 40 mg Left Lower Abdomen Given 03/15/2019 9:09 PM CDT 40 mg Le ft Lower Abdomen Given 03/15/2019 9:10 AM CDT 40 mg Le ft Lower Abdomen finasteride (PROSCAR) tablet 5 mg 5 mg, oral, Daily, First dose on Thu03/12/19 at 0900 Given 03/16/2019 7:38 AM CDT 5 mg Given 03/15/2019 9:09 AM CDT 5 mg Given 03/14/2019 8:22 AM CDT 5 mg flecainide (TAMBOCOR) tablet 50 mg 50 mg, oral, 2 times daily, First dose on Thu03/11/19 at 2145 Given 03/16/2019 7:38 AM CDT 50 mg Given 03/15/2019 9:06 PM CDT 50 mg Given 03/15/2019 9:09 AM CDT 50 mg fluticasone propion-salmeterol (ADVAIR DISKUS) 100-50 mcg/dose diskus inhaler 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, 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, 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), First dose on Thu03/11/19 at 2145 Given 03/12/2019 8:15 AM CDT 1 pu ff fluticasone propion-salmeterol (ADVAIR DISKUS) 100-50 mcg/dose diskus inhaler 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, inhalation, 2 times daily, First dose (after last modification) on Thu03/12/19 at 2100, Substitute for home breo; Rinse after use Given 03/16/2019 7:41 AM CDT 1 puff Given 03/15/2019 9:10 AM CDT 1 puff Given 03/14/2019 9:21 PM CDT 1 puff furosemide (LASIX) tablet 20 mg 20 mg, oral, Daily, First dose on 03/12/19 at 1915 Given 03/16/2019 7:37 AM CDT 20 mg Given 03/15/2019 9:09 AM CDT 20 mg Given 03/14/2019 8:21 AM CDT 20 mg insulin glargine (LANTUS) injection 10 Units 10 Units, subcutaneous, Nightly, First dose (after last modification) on Thu03/12/19 at 2100, Do not mix with other insulins, Indications: Diabetes MellitusIndications:Diabete s Mellitus Given 03/15/2019 9:06 PM CDT 10 Units Right Lower Abdomen Given 03/14/2019 9:21 PM CDT 10 Units Le ft Lower Abdomen Given 03/13/2019 8:10 PM CDT 10 Units Ri ght Lower Abdomen insulin lispro (HumaLOG) injection 1-2 Units 1-2 Units, subcutaneous, Nightly, First dose on Thu03/11/19 at 2330, Blood Sugar Low Dose PM - PO patients 200 or less No Insulin 201 - 250 1 unit 251 - 299 2 units Greater than 299 Call MD for hyperglycemia management instructions Do NOT hold for NPO status., Indications: Diabetes MellitusIndications:Diabetes Mellitus Given 03/15/2019 9:06 PM CDT 1 Units Right Lower Abdomen Given 03/14/2019 9:21 PM CDT 1 Units Le ft Lower Abdomen Given 03/13/2019 8:09 PM CDT 1 Units Ri ght Lower Abdomen insulin lispro (HumaLOG) injection 1-3 Units 1-3 Units, subcutaneous, 3 times daily with meals, First dose on Thu03/12/19 at 0800, Blood Sugar Low Dose meal time - PO patients 175 or less No Insulin 176 - 200 1 unit 201 - 250 2 units 251 - 299 3 units Greater than 299 Call MD for hyperglycemia management instructions Do NOT hold for NPO status., Indications: Diabetes MellitusIndications:Diabetes Mellitus Given 03/16/2019 11:18 AM CDT 2 Units Left Lower Abdomen Given 03/15/2019 11:57 AM CDT 2 Units L eft Lower Abdomen Given 03/14/2019 5:44 PM CDT 3 Units Le ft Upper Abdomen metoprolol (LOPRESSOR) tablet 12.5 mg 12.5 mg, oral, 2 times daily, First dose (after last modification) on Thu03/11/19 at 2230 Given 03/16/2019 7:37 AM CDT 12.5 mg Given 03/15/2019 9:06 PM CDT 12.5 mg Given 03/15/2019 9:09 AM CDT 12.5 mg morphine injection 4 mg 4 mg, intravenous, Administer over 4 Minutes, Every 1 hour PRN, 1st line for pain, Starting on Thu03/11/19 at 1246 Given 03/11/2019 5:58 PM CDT 4 mg Given 03/11/2019 3:40 PM CDT 4 mg Given 03/11/2019 1:03 PM CDT 4 mg oxyCODONE (ROXICODONE) tablet 5 mg 5 mg, oral, Every 4 hours PRN, 1st line for pain, Starting on Thu03/11/19 at 2102, May repeat in 1 hour if pain is uncontrolled or increasing. Max 2 doses within 1 dosing interval., Indications: PainIndications:Pain Given 03/16/2019 7:38 AM CDT 5 mg Given 03/15/2019 9:07 PM CDT 5 mg Given 03/15/2019 1:14 PM CDT [address] (PROTONIX) extended release tablet 40 mg 40 mg, oral, Daily, First dose on Thu03/12/19 at 0900, Do not crush, chew, cut, dissolve, open or otherwise manipulate tablet/capsule., Indications: Treatment of Non-Bleeding Gastric DisorderIndications:Treatment of Non-Bleeding Gastric Disorder Given 03/16/2019 7:38 AM CDT 40 mg Given 03/15/2019 9:09 AM CDT 40 mg Given 03/14/2019 8:21 AM CDT 40 mg pregabalin (LYRICA) capsule 75 mg 75 mg, oral, 3 times daily, First dose on Thu03/11/19 at 2145 Given 03/12/2019 8:33 PM CDT 75 mg Given 03/12/2019 5:06 PM CDT 75 mg Given 03/12/2019 8:29 AM CDT 75 mg pregabalin (LYRICA) capsule 75 mg 75 mg, oral, Every 8 hours, First dose (after last modification) on Thu03/13/19 at 0600 Given 03/16/2019 1:03 PM CDT 75 mg Given 03/16/2019 5:23 AM CDT 75 mg Given 03/15/2019 9:16 PM CDT 75 mg ramelteon (ROZEREM) tablet 8 mg 8 mg, oral, Nightly, First dose on Thu03/16/19 at 0100, Indications: Sleep-Onset InsomniaIndications:Sleep-Onset Insomnia Given 03/16/2019 12:33 AM CDT 8 mg sodium chloride 0.9% flush 0.5-20 mL 0.5-20 mL, intra-catheter, Every 8 hours scheduled, First dose on Thu03/11/19 at 2200, Flush volume based on line type and size. Given 03/16/2019 1:03 PM CDT 10 mL Given 03/15/2019 9:09 PM CDT 10 mL Given 03/15/2019 5:23 AM CDT 10 mL tamsulosin (FLOMAX) extended release capsule 0.4 mg 0.4 mg, oral, Daily with dinner, First dose on Thu03/12/19 at 1800, Do not crush, chew, cut, dissolve, open or otherwise manipulate tablet/capsule. Given 03/15/2019 5:07 PM CDT 0.4 mg Given 03/14/2019 5:43 PM CDT 0.4 mg Given 03/12/2019 5:06 PM CDT 0.4 mg warfarin (COUMADIN) tablet 3 mg 3 mg, oral, Daily (for warfarin), First dose (after last modification) on Thu03/15/19 at 1800, Target INR: 2 - 3, Indications: atrial fibrillation, Venous ThrombosisIndications:atrial fibrillation,Venous Thrombosis Given 03/15/2019 5:07 PM CDT 3 mg warfarin (COUMADIN) tablet 5 mg 5 mg, oral, Daily (for warfarin), First dose on Thu03/12/19 at 1915, Target INR: 2 - 3, Indications: atrial fibrillation, Venous ThrombosisIndications:atrial fibrillation,Venous Thrombosis Given 03/14/2019 5:43 PM CDT 5 mg Given 03/13/2019 6:34 PM CDT 5 mg Given 03/12/2019 8:33 PM CDT 5 mg documented in this encounter Discontinued Medications Medication Sig Discontinue Reason Start Date End Da te dabigatran (PRADAXA) 150 mg capsule Take 150 mg by mouth 2 (two) times a day 03/11/2019 warfarin (COUMADIN) 5 mg tablet Stop Taking at Discharge 07/20/2017 03/16/2019 PROAIR HFA 90 mcg/actuation inhaler Stop Taking at Discharge 08/05/2018 03/16/2019 flecainide (TAMBOCOR) 50 mg tablet Take 50 mg by mouth 2 (two) times a day Stop Taking at Discharge 03/16/2019 flecainide (TAMBOCOR) 50 mg tablet TAKE ONE TABLET BY MOUTH TWICE A DAY Stop Taking at Discharge 03/01/2019 03/16/2019 amiodarone (PACERONE) 200 mg tablet Take 200 mg by mouth daily Stop Taking at Discharge 03/16/2019 omeprazole (PriLOSEC) 40 mg capsule Stop Taking at Discharge 03/11/2019 03/16/2019 documented as of this encounter Historical Medications * This list may reflect changes made after this encounter. omeprazole (PriLOSEC) 40 mg capsule 03/11/2019 03/16/2019 dabigatran (PRADAXA) 150 mg capsule Take 150 mg by mouth 2 (two) times a day 03/11/2019 finasteride (PROSCAR) 5 mg tablet Take 5 mg by mouth daily 08/17/2019 amiodarone (PACERONE) 200 mg tablet Take 200 mg by mouth daily 03/16/2019 added in this encounter Active and Recently Administered Medications Times are shown in CDT. Scheduled Medication Order 03/14/2019 03/15/2019 03/16/2019 acetaminophen (TYLENOL) tablet 1,000 mg 1,000 mg, oral, Every 6 hours scheduled, First dose on 03/12/19 at 0000 0459 (Given - Provider: Radha Morris RN)1130 (Given - Provider: Estefany Al RN)1743 (Given - Provider: Estefany Al RN)2309 (Given - Provider: Faviola Ferrara RN) 0523 (Given - Provider: Faviola Ferrara RN)1158 (Given - Provider: Rosey Byrnes RN)1707 (Given - Provider: Rosey Byrnes RN)2322 (Given - Provider: Velia Dave RN) 0523 (Given - Provider: Velia Dave RN)1118 (Given - Provider: Rosey Byrnes RN) atorvastatin (LIPITOR) tablet 20 mg 20 mg, oral, Daily, First dose on 03/12/19 at 0900 0822 (Given - Provider: Estefany Al RN) 0909 (Given - Provider: Rosey Byrnes RN) 0737 (Given - Provider: Rosey Byrnes RN) doxycycline (VIBRAMYCIN) tablet/capsule 100 mg 100 mg, oral, 2 times daily (for quinolones,etc), First dose on Thu03/11/19 at 2145, Give 2 hrs before or 2 hrs after MVI, antacids, or other products containing sucralfate, magnesium, aluminum, iron, or zinc. May be taken without regard to meals., Indications: Prophylaxis, Medical 0459 (Given - Provider: Radha Morris RN)1744 (Given - Provider: Estefany Al RN) 0523 (Given - Provider: Faviola Ferrara, JÚNIOR)1707 (Given - Provider: Rosey Byrnes RN) 0523 (Given - Provider: Velia Dave RN) enoxaparin (LOVENOX) syringe 40 mg 40 mg, subcutaneous, Every 12 hours scheduled, First dose on Thu03/11/19 at 2215, Indications: Deep Vein Thrombosis Prevention 0821 (Given - Provider: Estefany Al RN)2120 (Given - Provider: Faviola Ferrara, JÚNIOR) 09 (Given - Provider: Rosey Byrnes RN)210 (Given - Provider: Velia Dave, JÚNIOR) 0738 (Given - Provider: Rosey Byrnes RN) finasteride (PROSCAR) tablet 5 mg 5 mg, oral, Daily, First dose on Thu03/12/19 at 0900 0822 (Given - Provider: Estefany Al RN) 0909 (Given - Provider: Rosey Byrnes RN) 0738 (Given - Provider: Rosey Byrnes RN) flecainide (TAMBOCOR) tablet 50 mg 50 mg, oral, 2 times daily, First dose on Thu03/11/19 at 2145 0821 (Given - Provider: Estefany Al RN)212 (Given - Provider: Faviola Ferrara RN) 09 (Given - Provider: Rosey Byrnes RN)210 (Given - Provider: Velia Dave, RN) 0738 (Given - Provider: Rosey Byrnes RN) fluticasone propion-salmeterol (ADVAIR DISKUS) 100-50 mcg/dose diskus inhaler 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, inhalation, 2 times daily, First dose (after last modification) on 03/12/19 at 2100, Substitute for home breo; Rinse after use 1130 (Given - Provider: Estefany Al RN)2120 (Given - Provider: Faviola Ferrara RN) 09 (Given - Provider: Rosey Byrnes RN)2108 (Not Given - Provider: Velia Dave RN - Reason: Patient/family refused) 0741 (Given - Provider: Rosey Byrnes RN) furosemide (LASIX) tablet 20 mg 20 mg, oral, Daily, First dose on 03/12/19 at 1915 0821 (Given - Provider: Estefany Al RN) 0909 (Given - Provider: Rosey Byrnes RN) 0737 (Given - Provider: Rosey Byrnes RN) insulin glargine (LANTUS) injection 10 Units 10 Units, subcutaneous, Nightly, First dose (after last modification) on 03/12/19 at 2100, Do not mix with other insulins, Indications: Diabetes Mellitus 2120 (Given - Provider: Faviola Ferrara RN) 2105 (Given - Provider: Velia Dave, JÚNIOR) insulin lispro (HumaLOG) injection 1-2 Units 1-2 Units, subcutaneous, Nightly, First dose on Thu03/11/19 at 2330, Blood Sugar Low Dose PM - PO patients 200 or less No Insulin 201 - 250 1 unit 251 - 299 2 units Greater than 299 Call MD for hyperglycemia management instructions Do NOT hold for NPO status., Indications: Diabetes Mellitus 2120 (Given - Provider: Faviola Ferrara RN) 2105 (Given - Provider: Velia Dave, RN) insulin lispro (HumaLOG) injection 1-3 Units 1-3 Units, subcutaneous, 3 times daily with meals, First dose on 03/12/19 at 0800, Blood Sugar Low Dose meal time - PO patients 175 or less No Insulin 176 - 200 1 unit 201 - 250 2 units 251 - 299 3 units Greater than 299 Call MD for hyperglycemia management instructions Do NOT hold for NPO status., Indications: Diabetes Mellitus 0822 (Given - Provider: Estefany Al RN)1130 (Given - Provider: Estefany Al RN)1744 (Given - Provider: Estefany Al RN) 0816 (Not Given - Provider: Rosey Byrnes RN - Reason: Order parameters not met)1157 (Given - Provider: Rosey Byrnes RN)1707 (Not Given - Provider: Rosey Byrnes RN - Reason: Order parameters not met) 0729 (Not Given - Provider: Rosey Byrnes RN - Reason: Order parameters not met)1118 (Given - Provider: Rosey Byrnes RN) metoprolol (LOPRESSOR) tablet 12.5 mg 12.5 mg, oral, 2 times daily, First dose (after last modification) on Thu03/11/19 at 2230 0822 (Given - Provider: Estefany Al RN)2122 (Given - Provider: Faviola Ferrara RN) 09 (Given - Provider: Rosey Byrnes RN)2106 (Given - Provider: Velia Dave RN) 0737 (Given - Provider: Rosey Byrnes RN) pantoprazole DR (PROTONIX) extended release tablet 40 mg 40 mg, oral, Daily, First dose on 03/12/19 at 0900, Do not crush, chew, cut, dissolve, open or otherwise manipulate tablet/capsule., Indications: Treatment of Non-Bleeding Gastric Disorder 0821 (Given - Provider: Estefany Al RN) 0909 (Given - Provider: Rosey Byrnes RN) 0738 (Given - Provider: Rosey Byrnes RN) pregabalin (LYRICA) capsule 75 mg 75 mg, oral, Every 8 hours, First dose (after last modification) on Thu03/13/19 at 0600 0459 (Given - Provider: Radha Morris, JÚNIOR)1518 (Given - Provider: Estefany Al RN)2120 (Given - Provider: Faviola Ferrara RN) 0523 (Given - Provider: Faviola Ferrara RN)131 (Given - Provider: Rosey Byrnes, JÚNIOR)2115 (Given - Provider: Velia Dave RN) 0523 (Given - Provider: Velia Dave RN)1303 (Given - Provider: Rosey Byrnes RN) ramelteon (ROZEREM) tablet 8 mg 8 mg, oral, Nightly, First dose on Thu03/16/19 at 0100, Indications: Sleep-Onset Insomnia 0033 (Given - Provider: Velia Dave RN) sodium chloride 0.9% flush 0.5-20 mL 0.5-20 mL, intra-catheter, Every 8 hours scheduled, First dose on Thu03/11/19 at 2200, Flush volume based on line type and size. 0500 (Given - Provider: Radha Morris RN)1518 (Given - Provider: Estefany Al RN)2120 (Given - Provider: Faviola Ferrara RN) 0523 (Given - Provider: Faviola Ferrara RN)1315 (Not Given - Provider: Rosey Byrnes RN - Reason: Other)2108 (Given - Provider: Velia Dave RN) 0533 (Not Given - Provider: Velia Dave RN - Reason: Other)1303 (Given - Provider: Rosey Byrnes, JÚNIOR) tamsulosin (FLOMAX) extended release capsule 0.4 mg 0.4 mg, oral, Daily with dinner, First dose on Thu03/12/19 at 1800, Do not crush, chew, cut, dissolve, open or otherwise manipulate tablet/capsule. 1743 (Given - Provider: Estefany Al RN) 1707 (Given - Provider: Rosey Byrnes RN) warfarin (COUMADIN) tablet 3 mg 3 mg, oral, Daily (for warfarin), First dose (after last modification) on Thu03/15/19 at 1800, Target INR: 2 - 3, Indications: atrial fibrillation, Venous Thrombosis 1707 (Given - Provider: Rosey Byrnes RN) warfarin (COUMADIN) tablet 5 mg (CANCELED) 5 mg, oral, Daily (for warfarin), First dose on Thu03/12/19 at 1915, Target INR: 2 - 3, Indications: atrial fibrillation, Venous Thrombosis 1743 (Given - Provider: Estefany Al RN) PRN Medication Order 03/14/2019 03/15/2019 03/16/2019 albuterol HFA (PROVENTIL HFA,VENTOLIN HFA,PROAIR HFA) 90 mcg/actuation inhaler 2 puff 2 puff, inhalation, Every 6 hours PRN, wheezing, Starting on Thu03/12/19 at 0830 baclofen (LIORESAL) tablet 10 mg 10 mg, oral, 3 times daily PRN, muscle spasms, Starting on Thu03/11/19 at 2103 0446 (Given - Provider: Radha Morris RN)1518 (Given - Provider: Estefany Al RN) dextrose (D10W) 10% bolus 250 mL(Linked Group 1) 250 mL, intravenous, at 1,000 mL/hr, Administer over 15 Minutes, Every 15 min PRN, blood glucose less than 70 mg/dL and UNABLE to swallow/take PO glucose/juice., Starting on Thu03/11/19 at 2102, After treatment for hypoglycemia, recheck BG followed by treatment every 15 minutes until the BG is greater than 100 mg/dL. Then check BG 1 hour post treatment. If BG is less than 100 mg/dL, repeat Q15 minute BG checks and treatment. Call MD for each episode of hypoglycemia., Indications: hypoglycemic disorder dextrose (GLUTOSE) 40 % gel 15 g(Linked Group 1) 15 g, oral, Every 15 min PRN, low blood sugar, blood glucose less than 70 mg/dL, Starting on Thu03/11/19 at 2102, If patient is alert and able to [...] Call MD for each episode of hypoglycemia. CLINICAL RESOURCE COORDINATOR STATES GLUTOSE-15 CONTAINS GLUCOSE 40% W/W (50% W/V), Indications: hypoglycemic disorder furosemide (LASIX) tablet 20 mg 20 mg, oral, Daily PRN, edema, Starting on Thu03/14/19 at 1412 glucagon injection 1 mg 1 mg, intramuscular, Administer over 1 Minutes, Every 30 min PRN, low blood sugar, blood glucose less than 70 mg/dL AND no IV access AND unable to take PO glucose/jiuce., Starting on Thu03/11/19 at 2102, After Glucagon is administered, position patient on [...] MD for each episode of hypoglycemia., Indications: Hypoglycemia oxyCODONE (ROXICODONE) tablet 5 mg 5 mg, oral, Every 4 hours PRN, 1st line for pain, Starting on Thu03/11/19 at 210, May repeat in 1 hour if pain is uncontrolled or increasing. Max 2 doses within 1 dosing interval., Indications: Pain 0446 (Given - Provider: Radha Morris RN)2121 (Given - Provider: Faviola Ferrara, JÚINOR) 0909 (Given - Provider: Rosey Byrnes RN)1314 (Given - Provider: Rosey Byrnes RN)2107 (Given - Provider: Velia Dave, JÚNIOR) 0738 (Given - Provider: Rosey Byrnes RN) sodium chloride 0.9% flush 0.5-20 mL 0.5-20 mL, intra-catheter, As needed, line care, Starting on Thu03/11/19 at 2102, Flush volume based on line type and size. Flush before and after each use. Linked Groups Order Group 1: dextrose (GLUTOSE) 40 % gel 15 gJump to med 15 g, oral, Every 15 min PRN, low blood sugar, blood glucose less than 70 mg/dL, Starting on Thu03/11/19 at 2102, If patient is alert and able to [...] Call MD for each episode of hypoglycemia. CLINICAL RESOURCE COORDINATOR STATES GLUTOSE-15 CONTAINS GLUCOSE 40% W/W (50% W/V), Indications: hypoglycemic disorder Or dextrose (D10W) 10% bolus 250 mLJump to med 250 mL, intravenous, at 1,000 mL/hr, Administer over 15 Minutes, Every 15 min PRN, blood glucose less than 70 mg/dL and UNABLE to swallow/take PO glucose/juice., Starting on Thu03/11/19 at 2102, After treatment for hypoglycemia, recheck BG followed [...] Count Last Ordered Date First Ordered Date furosemide (LASIX) tablet 20 mg 2 9 03/11/2019 albuterol HFA (PROVENTIL HFA ,VENTOLIN HFA,PROAIR HFA) 90 mcg/actuation inhaler 2 puff 1 03/12/2019 amiodarone (PACERONE) tablet 200 mg 1 03/11 dextrose (D10W) 10% bolus 250 mL 1 03/11/20 19 dextrose (GLUTOSE) 40 % gel 15 g 1 03/11/20 19 enoxaparin (LOVENOX) syringe 30 mg 2018 glucagon injection 1 mg 1 03/11/2019 insulin glargine (LANTUS) in jection 30 Units 03/11/2019 insulin lispro (HumaLOG) inj ection 1-3 Units 1 03/11/2019 insulin lispro (HumaLOG) injection 6 Units 1 03/11/2019 metoprolol (LOPRESSOR) tablet 25 mg 1 03/11 phytonadione (VITAMIN K1) 10 mg in dextrose 5% 50 mL IVPB 1 03/11/2019 phytonadione (VITAMIN K1) tablet 2.5 mg 1 0 03/11/2019 sodium chloride 0.9% flush 0.5-20 mL 1 04/2019 sodium chloride 0.9% infusion 1 03/11/2019 Lab Orders Without Results Count Last Ordered D ate First Ordered Date POCT GLUCOSE DEVICE 17 03/16/2019 03/11/20 19 PROTIME-INR 1 03/11/2019 Diet Count Last Ordered Date First Orde red Date ADULT DISCHARGE DIET 1 03/16/2019 Nursing Count Last Ordered Date First Orde red Date DISCHARGE ACTIVITY 2 03/16/2019 DISCHARGE CALL PROVIDER 7 03/16/2019 DISCHARGE DRESSING 4 03/16/2019 DISCHARGE INSTRUCTIONS 2 03/16/2019 FOLLOW UP PRIMARY PHYSICIAN 1 03/16/2019 WEIGHT BEARING STATUS 2 03/16/20192018 WEIGH PATIENT 1 03/11/2019 Consult Count Last Ordered Date First Orde red Date IP CONSULT TO ORTHOPEDIC SURGERY 1 03/11/20 19 IP CONSULT TO TRAUMA SURGERY 1 03/11/2019 ADT Patient Update Count Last Ordered Date Firs t Ordered Date ED IP DECISION TO ADMIT 1 03/11/2019 documented in this encounter 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
--- OUTSIDE RECORDS SUMMARY | 2024-07-24 00:11 | XMS_ITS | Encounter Summary ---
Author Organization [facility] Healthcare Address [address] [place] [address] Care Team Providers Care High School Professional Name Role Phone Christopher Diop MD Primary Care Provider [phone]- [phone] Encounter Details Date Type Department Care Team (Latest Contact Info) Description 11/18/2016 1:42 PM CDT - 11/18/2016 11:59 PM CDT Hospital Encounter [facility] [phone] Aidan Guzman MD [address] [facility] [address] [place] [address] Discharge Disposition: Discharge to home or self care Social History Tobacco Use Types Packs/Day Years Used Date Smoking Tobacco: Former Cigarettes Q uit: 08/03/1979 Alcohol Use Standard Drinks/Week Comments No 0 (1 standard drink = 0.6 oz pur e alcohol) Sex and Gender Information Value Date Recorded Sex Assigned at Not on file Legal Sex Male 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 Gender Identity Not on file Sexual Orientation [...] times every day 0 0 04/21/2016 3 furosemide (LASIX) 20 mg tablet take 1 tablet by oral route everyday and as needed 60 4 10/21/2016 3 insulin lispro (HumaLOG) 100 unit/mL cartridge [...] 04/21/2016 7 documented as of this encounter Discharge Disposition Disposition Code Departure Means Destination Discharge to home or self care documented in this encounter Plan of Treatment Not on file documented as of this encounter Procedures Procedure Name Priority Date/Time Associated Diagnosis Comments PULMONARY FUNCTION TEST (PFT) Routine 11/18/2016 5:00 AM CDT documented in this encounter Results * Pulmonary function test (11/18/2016 5:00 AM CDT) Anatomical Region Laterality Modality PFT 11/18/2016 5:00 AM CDT Narrative 11/18/2016 5:00 AM CDT ?[facility] NAME: ?BERNIE CAREY DATE: ?11/18/2016 ? AGE: ?76 ACCT: ?[id number] ? MR#: ?[id number] Attending: AIDAN GUZMAN M.D. ? Patient Type: ? ANC Dictating: AIDAN GUZMAN M.D. ?PULMONARY FUNCTION INTERPRETATION PROCEDURE PERFORMED Exercise oximetry. FINDINGS Resting oxygen saturation is 100%. ??Bernie was able to ambulate for 265 feet and oxygen saturation adalid was 90%. ??His oxygen saturation improved to 99% after rest. IMPRESSION/RECOMMENDATIONS Exertional hypoxemia but he did not qualify for oxygen supplementation. Electronically Authenticated by: Aidan Guzman MD On 11/23/2016 05:23 PM CDT AIDAN GUZMAN M.D. Gabi/fe Job #: ??[id number] DD: ??11/20/2016 11:49 TD: ??11/20/2016 14:21 us Not In File Miscellaneous PFT ORDERABLES Final Result documented in this encounter Visit Diagnoses Not on filedocumented in this encounter Care Teams High School Professional Relationship Specialty Start Date End Date Christopher Diop MD [address] [place] [address] PCP - General 10/31/16 08/10/18 documented as of this encounter
--- OUTSIDE RECORDS SUMMARY | 2024-07-24 00:11 | XMS_ITS | Encounter Summary ---
Author Organization [facility] Healthcare Address [address] [place] [address] Care Team Providers Care Experimental Machinist Name Role Phone Christopher Diop MD Primary Care Provider +1- [phone] Encounter Details Date Type Department Care Team (Latest Contact Info) Description 10/21/2016 1:26 PM CDT - 10/21/2016 11:59 PM CDT Hospital Encounter [facility] [phone] Aidan Guzman MD [address] [facility] [address] [place] [address] Discharge Disposition: Discharge to home or self care Social History Tobacco Use Types Packs/Day Years Used Date Smoking Tobacco: Former Cigarettes Q uit: 08/03/1979 Alcohol Use Standard Drinks/Week Comments No 0 (1 standard drink = 0.6 oz pur e alcohol) Sex and Gender Information Value Date Recorded Sex Assigned at Not on file Legal Sex Male 3:18 AM 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 2 view examination of the chest is compared 03/21/2016. The heart size is within normal limits. ??The lung sultana and pleural spaces are clear. IMPRESSION: 1. ??No evidence for active disease. Electronically signed by: Agnes Hernández M.D. Radiologist: AGNES HERNÁNDEZ MD, M.D. ?? Attending: ??AIDAN GUZMAN Requesting: AIDAN GUZMAN Requesting Fax: ?? Requesting ID: [id number] Attending Fax: ?? Attending ID: ?? [id number] Completed Time: ?? 10/21/2016 1:53 PM Dictated Time: ?N/A Transcribed Time: 10/21/2016 4:18 PM Signed by: ?AGNES HERNÁNDEZ MD on 10/21/2016 4:18 PM Report To 1 ID: Report To 1 Name: , Report To 1 FAX: Report To 2 ID: Report To 2 Name: , Report To 2 FAX: Report To 3 ID: Report To 3 Name: , Report To 3 FAX: NextGen Order #: Procedure Note Miscellaneous, Notinfile / Provider, MD Dee - 12/24/2016 Chest 2 views HISTORY: Shortness of breath. 2 view examination of the chest is compared 03/21/2016. The heart size is within normal limits. The lung sultana and pleural spaces are clear. IMPRESSION: 1. No evidence for active disease. Electronically signed by: Agnes Hernández M.D. Radiologist: AGNES HERNÁNDEZ MD, M.D. Attending: AIDAN GUZMAN Requesting: AIDAN GUZMAN Requesting Requesting ID: [id number] Attending Attending ID: [id number] Completed Time: 10/21/2016 1:53 PM Dictated Time: N/A Transcribed Time: 10/21/2016 4:18 PM Signed by: AGNES HERNÁNDEZ MD, M.D. on 10/21/2016 4:18 PM Report To 1 ID: Report To 1 Name: , Report To 1 FAX: Report To 2 ID: Report To 2 Name: , Report To 2 FAX: Report To 3 ID: Report To 3 Name: , Report To 3 FAX: NextGen Order #: us Not In File Miscellaneous IMG XR PROCEDURES Ruth l Result documented in this encounter Visit Diagnoses Not on filedocumented in this encounter Care Teams Experimental Machinist Relationship Specialty Start Date End Date Christopher Diop MD [address] [place] [address] PCP - General 10/21/16 10/30/16 documented as of this encounter
--- OUTSIDE RECORDS SUMMARY | 2024-07-24 00:11 | XMS_ITS | Encounter Summary ---
Author Organization [facility] Healthcare Address [address] [place] [address] Care Team Providers Care Roofing Sales Representative Name Role Phone Christopher Diop MD Primary Care Provider +1- [phone] Encounter Details Date Type Department Care Team (Latest Contact Info) Description 08/05/2017 9:27 AM SALES AND SERVICE ADVISOR - 08/05/2017 11:59 PM [facility] Hospital Encounter [facility] OP INTERIM [phone] Jane Walker MD [address] [facility] [address] [place] [address] Discharge Disposition: Discharge to home or self care Social History Tobacco Use Types Packs/Day Years Used Date Smoking Tobacco: Former Smokeless Tobacco: Never Alcohol Use Standard Drinks/Week Comments No 0 (1 standard drink = 0.6 oz pur e alcohol) Sex and Gender Information Value Date Recorded Sex Assigned at Not on file Legal Sex Male 3:18 AM SALES AND SERVICE ADVISOR Gender Identity Not on file Sexual Orientation [...] 0 04/21/2016 amiodarone (PACERONE) 200 mg tablet Take 1 tablet (200 mg total) by mouth daily. 90 tablet 2 04/10/2017 8 atorvastatin (LIPITOR) 20 mg tablet take 1 [...] times every day 0 0 04/21/2016 3 warfarin (COUMADIN) 5 mg tablet 07/20/2017 9 documented as of this encounter Discharge Disposition Disposition Code Departure Means Destination Discharge to home or self care documented in this encounter Plan of Treatment Not on file documented as of this encounter Procedures Procedure Name Priority Date/Time Associated Diagnosis Comments XR SPINE LUMBAR ROUTINE Routine 08/05/2017 3:55 PM SALES AND SERVICE ADVISOR documented in this encounter Results * XR Spine Lumbar Routine (08/05/2017 3:55 PM SALES AND SERVICE ADVISOR) Anatomical Region Laterality Modality L-spine N/A Radiographic Ary ging 08/05/2017 3:55 PM SALES AND SERVICE ADVISOR Narrative 08/05/2017 4:06 PM SALES AND SERVICE ADVISOR COLLIN COREA M.D. FINAL REPORT ACC# ??Date Time ??Exam [id number] Aug 05, 2017 09:55:00 [id number] Spine Lumbar min 4 views EXAMINATION: ?? 1. ??Lumbar spine minimum 4 views HISTORY: ??Lumbar spondylosis FINDINGS: 5 views submitted with comparison 01/30/2016. Redemonstrated is a revision L1-L4 instrumented posterior spinal fusion with L2-L3 corpectomies, grafting, and lumbar posterior decompression. There are no acute fractures. There is no evidence of instrumentation failure. Alignment is unchanged. There is progressive moderate L4-L5 and L5-S1 degenerative disc disease. Inferior lumbar facet osteoarthritis is present. Arterial atherosclerosis, inferior vena cava filter, prior hernia repair, left hip osteoarthritis, and thoracic diffuse idiopathic skeletal hyperostosis is noted. IMPRESSION: ??1. ??Unchanged revision L1-L4 instrumented posterior spinal fusion with L2-L3 corpectomies, grafting, and lumbar posterior decompression. 2. Progressive moderate L4-S1 degenerative disc disease. Electronically signed by: Collin Corea M.D. Requested By: JANE WALKER M.D. Dictated By: ?? COLLIN COREA M.D. ??on Aug ??2017 10:04A This document has been electronically signed by: COLLIN COREA M.D. on Aug ??2017 10:04A [id number] COREA M.D. FINAL REPORT Attending: ??YVES, ??JANE Requesting: ??YVES, ??JANE Requesting Fax: ?? Attending Fax: ?? Attending ID: ??[id number] Requesting ID: ??[id number] Report To 1 ID: ??[id number] ? Report To 1 Name: ??, ?? Report To 1 FAX: ?? NextGen Order #: ?? Procedure Note Miscellaneous, Not In File - 08/05/2017 COLLIN COREA M.D. FINAL REPORT ACC# Date Time Exam [id number] Aug 05, 2017 09:55:00 [id number] Spine Lumbar min 4 views EXAMINATION: 1. Lumbar spine minimum 4 views HISTORY: Lumbar spondylosis FINDINGS: 5 views submitted with comparison 01/30/2016. Redemonstrated is a revision L1-L4 instrumented posterior spinal fusion with L2-L3 corpectomies, grafting, and lumbar posterior decompression. There are no acute fractures. There is no evidence of instrumentation failure. Alignment is unchanged. There is progressive moderate L4-L5 and L5-S1 degenerative disc disease. Inferior lumbar facet osteoarthritis is present. Arterial atherosclerosis, inferior vena cava filter, prior hernia repair, left hip osteoarthritis, and thoracic diffuse idiopathic skeletal hyperostosis is noted. IMPRESSION: 1. Unchanged revision L1-L4 instrumented posterior spinal fusion with L2-L3 corpectomies, grafting, and lumbar posterior decompression. 2. Progressive moderate L4-S1 degenerative disc disease. Electronically signed by: Collin Corea M.D. Requested By: JANE WALKER M.D. Dictated By: COLLIN COREA M.D. on Aug 05 2017 10:04A This document has been electronically signed by: COLLIN COREA M.D. on Aug 05 2017 10:04A [id number] COREA M.D. FINAL REPORT Attending: JANE WALKER Requesting: JANE WALKER Requesting Fax: Attending Fax: Attending ID: [id number] Requesting ID: [id number] Report To 1 ID: [id number] Report To 1 Name: , Report To 1 FAX: NextGen Order #: Jane Walker MD IMG XR PROCEDURES Ruth l Result documented in this encounter Visit Diagnoses Not on filedocumented in this encounter Care Teams Roofing Sales Representative Relationship Specialty Start Date End Date Christopher Diop MD [address] [place] [address] PCP - General 10/31/16 08/10/18 documented as of this encounter
--- OUTSIDE RECORDS SUMMARY | 2024-07-24 00:11 | XMS_ITS | Encounter Summary ---
Author Organization [facility] Medical Group Address [address] [place] [address] Care Team Providers Care Host Hostess Name Role Phone Christopher Diop MD Primary Care Provider +1- [phone] Reason for Visit * Reason Comments Atrial Fibrillation Encounter Details Date Type Department Care Team (Late st Contact Info) Description 07/21/2017 11:30 AM PROFILE GRINDER TECHNICIAN Office Visit [facility] [address] [place] [address] Norberto Cordero, [address] [facility] [facility] [place] [address] Atrial fibrillation, currently in sinus rhythm (Primary Dx); Pure hypercholesterolemia; 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); BMI 40.0-44.9, adult (CMS/HCC) Social History Tobacco Use Types Packs/Day Years Used Date Smoking Tobacco: Former Smokeless Tobacco: Never Alcohol Use Standard Drinks/Week Comments No 0 (1 standard drink = 0.6 oz pur e alcohol) Sex and Gender Information Value Date Recorded Sex Assigned at Not on file Legal Sex Male 3:18 AM PROFILE GRINDER TECHNICIAN Gender Identity Not on file Sexual Orientation Not on file documented as of this encounter Last Filed Vital Signs Vital Sign Reading Time Taken Comments Blood Pressure 124/68 07/21/2017 11:59 AM PROFILE GRINDER TECHNICIAN Pulse 68 07/21/2017 11:59 AM PROFILE GRINDER TECHNICIAN Temperature - - Respiratory Rate - - Oxygen Saturation - - Inhaled Oxygen Concentration - - Weight 149.2 kg (329 lb) 07/21/2017 11:59 AM PROFILE GRINDER TECHNICIAN Height 188 cm (6' 2 ) 07/21/2017 11:59 AM PROFILE GRINDER TECHNICIAN Body Mass Index 42.24 07/21/2017 11:59 AM PROFILE GRINDER TECHNICIAN documented in this encounter Progress Notes * Norberto Cordero DO - 07/21/2017 11:30 AM CST Patient Name: Neal Amaro Provider:Norberto Cordero DO : 1940 Date of Service: 07/21/2017 Referring: [facility] CHIEF COMPLAINT: Atrial Fibrillation Neal presents for follow up evaluation. In March of this yea,[facility] which is subtotally felt to be due to his anticoagulation therapy. They did not find a primary source in the renal system other than when he discontinued his Xarelto issues the hematuria cleared. He was then placed on Pradaxa and recurred so is now off both of those agents and back on warfarin. He also had endoscopy which failed to demonstrate any active ulcer disease at that time. During the initial evaluation his hemoglobin was as low as 5 g, is now13 based on his last blood count; 1 he is currently receiving intravenous iron infusions. He has had no chest pain that is cardiac in nature but was short of breath when he had 5 g hgb. His dyspnea is now resolved HISTORY OF PRESENT ILLNESS: Mr Neal Amaro is a 76 year old male who has a history of recurrent atrial fibrillations of 5years duration, 3 episodes of which occurred during [...] in the left popliteal region for DVT REVIEW OF SYSTEMS: General: No fever, chills, [...] history is unknown by patient. Current Outpatient Prescriptions: ??? amiodarone (PACERONE) 200 mg tablet, Take 1 tablet (200 mg total) by mouth daily., Disp: 90 tablet, Rfl: 2 ??? atorvastatin (LIPITOR) 20 mg tablet, take [...] every day, Disp: 0, Rfl: 0 ??? furosemide (LASIX) 20 mg tablet, take [...] individualization., Disp: 0 Cartridge, Rfl: 0 ??? metoprolol (LOPRESSOR) 25 mg tablet, 1/2 [...] Disp: 0, Rfl: 0 ??? warfarin (COUMADIN) 5 mg tablet, , Disp: , Rfl: Patient is allergic to adhesive tape-silicones. PHYSICAL EXAM: BP 124/68 Pulse 68 Ht 188 cm (6' 2 ) Wt (!) 149.2 kg (329 lb) BMI 42.24 kg/m?? General: Well appearing, No pain or [...] in sinus rhythm (Primary) Assessment & Plan: No diagnostic ST changes. Global left ventricular [...] has had these recent issues with anemia andhematuria and is now on warfarin, I am going to leave him on the amiodarone for the next 6 months. If he remains in sinus rhythm, and given the fact that his heart is structurally normal I may at that time switch him to a type 1 agent such as Tambocor Rythmol which would have a lower side effect profile Pure hypercholesterolemia Assessment & Plan: Todays lipid profile= TC 151/ HDL 45/ LDL 87/ TG 95/ He is at goal on lipitor 20 mg daily. 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 A recent venous doppler still shows residual disease and he sttill has the IVC filter BMI 40.0-44.9, adult (CMS/HCC) Assessment & Plan: He continues to work with diet ILE GRINDER TECHNICIAN documented in this encounter Miscellaneous Notes * Assessment & Plan Note - Norberto Cordero DO - 07/21/2017 12:31 PM PROFILE GRINDER TECHNICIAN Associated Problem(s): Morbid obesity with BMI of 45.0-49.9, adult ([facility]) He continues to work with diet ILE GRINDER TECHNICIAN * Assessment & Plan Note - Norberto Cordero DO - 07/21/2017 12:21 PM PROFILE GRINDER TECHNICIAN Associated Problem(s): Pure hypercholesterolemia Todays lipid profile= TC 151/ HDL 45/ LDL 87/ TG 95/ He is at goal on lipitor 20 mg daily. ILE GRINDER TECHNICIAN * Assessment & Plan Note - Norberto Cordero DO - 07/21/2017 12:19 PM PROFILE GRINDER TECHNICIAN Associated Problem(s): Atrial fibrillation, currently in sinus rhythm No diagnostic ST changes. Global left ventricular [...] has had these recent issues with anemia andhematuria and is now on warfarin, I am going to leave him on the amiodarone for the next 6 months. If he remains in sinus rhythm, and given the fact that his heart is structurally normal I may at that time switch him to a type 1 agent such as Tambocor Rythmol which would have a lower side effect profile ILE GRINDER TECHNICIAN ILE GRINDER TECHNICIAN ILE GRINDER TECHNICIAN * Assessment & Plan Note - Norberto Cordero DO - 07/21/2017 12:17 PM PROFILE GRINDER TECHNICIAN Associated Problem(s): Pulmonary embolism without acute cor pulmonale (HCC) Unfortunately, he needs anticoagulation. A recent venous doppler still shows residual disease and he sttill has the IVC filter ILE GRINDER TECHNICIAN documented in this encounter Plan of Treatment Not on file documented as of this encounter Procedures Procedure Name Priority Date/Time Associated Diagnosis Comments LIPID PANEL Routine 07/21/2017 12:19 PM PROFILE GRINDER TECHNICIAN documented in this encounter Results * Lipid panel (07/21/2017 12:19 PM PROFILE GRINDER TECHNICIAN) SCRIBED Cholesterol, Total 151 l - h EXTERNAL LAB SCRIBED HDL 45 l - h EXTERNAL LAB SCRIBED LDL 87 l - h EXTERNAL LAB SCRIBED Triglycerides 95 l - h EXTERNAL LAB Blood specimen (specimen) 07/21/2017 12:19 PM PROFILE GRINDER TECHNICIAN us Historical Provider LAB BLOOD ORDERABLES Ruth l Result EXTERNAL LAB documented in this encounter Visit Diagnoses Diagnosis Atrial fibrillation, currently in sinus rhythm- Primary Pure hypercholesterolemia 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 (HCC) BMI 40.0-44.9, adult (HCC) documented in this encounter Discontinued Medications Medication Sig Discontinue Reason Start Date End Da te rivaroxaban (XARELTO) 20 mg tablet take 1 tablet by oral route every day with the evening meal Discontinued by another clinician 04/21/2016 07/21/2017 documented as of this encounter Historical Medications * This list may reflect changes made after this encounter. Medication Sig Dispense Quantity Refills Last Filled Start D ate End Date warfarin (COUMADIN) 5 mg tablet 07/20/2017 03/16/2019 added in this encounter Care Teams Host Hostess Relationship Specialty Start Date End Date Christopher Diop MD [address] [place] [address] PCP - General 10/31/16 08/10/18 documented as of this encounter
--- OUTSIDE RECORDS SUMMARY | 2024-07-24 00:11 | XMS_ITS | Encounter Summary ---
Author Organization [facility] Medical [facility] Address [address] [place] [address] Care Team Providers Care Billing And Insurance Coordinator Name Role Phone Christopher Diop MD Primary Care Provider [phone]- [phone] Christopher Diop MD Primary Care Provider [phone]- [phone] Encounter Details Date Type Department Care Team (Late st Contact Info) Description 10/21/2016 [facility] [address] [place] [address] Ronaldo Guzman MD [address] [address] [place] [address] Social History Tobacco Use Types Packs/Day Years Used Date Smoking Tobacco: Former Cigarettes Q uit: 08/03/1979 Alcohol Use Standard Drinks/Week Comments No 0 (1 standard drink = 0.6 oz pur e alcohol) Sex and Gender Information Value Date Recorded Sex Assigned at Not on file Legal Sex Male 3:18 AM CIRCUS LABORER Gender Identity Not on file Sexual Orientation Not on file documented as of this encounter Plan of Treatment Not on file documented as of this encounter Procedures Procedure Name Priority Date/Time Associated Diagnosis Comments EGFR Routine 10/21/2016 1:31 PM CDT documented in this encounter Results * eGFR (10/21/2016 1:31 PM CDT) eGFR 44 mL/min/1.[address] [facility] Comment: Interpretive Data Reference Interval Normal ?>/= 90 mL/min/1.73m2 Mildly decreased* ? 60 - 89 mL/min/1.73m2 Mildly to moderately decreased ?45 - 59 mL/min/1.73m2 Moderately to severely decreased ??30 - 44 mL/min/1.73m2 Severely decreased ?15 - 29 mL/min/1.73m2 Kidney Failure ?< 15 ??mL/min/1.73m2 *Relative to young adult level If -Hungarian multiply value by 1.16. Estimated glomerular filtration rate is determined by the CKD-EPI equation recommended by the National Kidney Foundation (KDIGO 2012 Clinical Practice Guideline for the Evaluation and Management of Chronic Kidney Disease. Kidney Intnl Suppl Aug 2012;3:1). The CKD-EPI equation should not be used for patients with unstable renal function and has not been validated in children and those over 70. Current interpretive data was last reviewed 2016. Blood specimen (specimen) 10/21/2016 1:31 PM CDT 10/21/2016 3:33 PM CDT us Ronaldo Guzman MD LAB BLOOD ORDERABLES Fi nal Result [facility] [address] Department [place] [address] documented in this encounter Visit Diagnoses Not on filedocumented in this encounter Care Teams Billing And Insurance Coordinator Relationship Specialty Start Date End Date Christopher Diop MD [address] [place] [address] PCP - General 10/31/16 08/10/18 Christopher Diop MD [address] [place], [place] [id number] PCP - General 10/21/16 10/30/16 documented as of this encounter
--- OUTSIDE RECORDS SUMMARY | 2024-07-24 00:11 | XMS_ITS | Encounter Summary ---
Author Organization [facility] Medical Group Address [address] [place] [address] Care Team Providers Care Spar Finisher Name Role Phone Christopher Diop MD Primary Care Provider +1- [phone] Christopher Diop MD Primary Care Provider [phone]- [phone] Encounter Details Date Type Department Care Team (Late st Contact Info) Description 10/21/2016 Orders Only [facility] [address] [place] [address] Ronaldo Guzman MD [address] [address] [place] [address] Social History Tobacco Use Types Packs/Day Years Used Date Smoking Tobacco: Former Cigarettes Q uit: 08/03/1979 Alcohol Use Standard Drinks/Week Comments No 0 (1 standard drink = 0.6 oz pur e alcohol) Sex and Gender Information Value Date Recorded Sex Assigned at Not on file Legal Sex Male 3:18 AM DONKEY DOCTOR Gender Identity Not on file Sexual Orientation Not on file documented as of this encounter Plan of Treatment Not on file documented as of this encounter Procedures Procedure Name Priority Date/Time Associated Diagnosis Comments B-TYPE NATRIURETIC PEPTIDE Routine 10/21/2016 1:31 PM CDT documented in this encounter Results * (ABNORMAL) B-type natriuretic peptide (10/21/2016 1:31 PM CDT) B-Type Natriuretic Peptide (BNP) 102(H) 0 - 100 pg/mL [facility] Blood specimen (specimen) 10/21/2016 1:31 PM CDT 10/21/2016 3:35 PM CDT us Ronaldo Guzman MD LAB BLOOD ORDERABLES Fi nal Result [facility] [address] Department [place] [address] documented in this encounter Visit Diagnoses Not on filedocumented in this encounter Care Teams Spar Finisher Relationship Specialty Start Date End Date Christopher Diop MD [address] [place] [address] PCP - General 10/31/16 08/10/18 Christopher Diop MD [address] [place] [address] PCP - General 10/21/16 10/30/16 documented as of this encounter
--- OUTSIDE RECORDS SUMMARY | 2024-07-24 00:11 | XMS_ITS | Encounter Summary ---
Author Organization [facility] Medical Group Address [address] [place] [address] Care Team Providers Care Make Up Operator Helper Name Role Phone Jessica Arroyo MD Primary Care Provider +1- [phone] Reason for Referral * Hospital - Outpatient (Routine) - Closed Specialty Diagnoses / Procedures Referred By Roly reinoso Referred To Contact Diagnoses Atrial fibrillation, unspecified type (HCC) Procedures Transthoracic Echo Complete W Doppler/CF Norberto Cordero DO Phone: tel: fax: [facility] [address] [place] [address] Referral ID Status Reason Start Date Expiration Date Visits Re quested Visits Authorized [id number] Closed 08/11/2018 02/19/2019 1 1 PECTING OBSERVER Reason for Visit * Reason Comments Atrial Fibrillation Encounter Details Date Type Department Care Team (Late st Contact Info) Description 08/11/2018 10:15 AM PROSPECTING OBSERVER [place] [facility] [address] [place] [address] Norberto Cordero DO [address] [place] [address] Essential hypertension (Primary Dx); Pure hypercholesterolemia; Atrial fibrillation, unspecified type (CMS/HCC); Morbid obesity with BMI of 40.0-44.9, adult ([facility]); Atrial fibrillation, currently in sinus rhythm Social History Tobacco Use Types Packs/Day Years Used Date Smoking Tobacco: Former Smokeless Tobacco: Never Alcohol Use Standard Drinks/Week Comments No 0 (1 standard drink = 0.6 oz pur e alcohol) Sex and Gender Information Value Date Recorded Sex Assigned at Not on file Legal Sex Male 3:18 AM PROSPECTING OBSERVER Gender Identity Not on file Sexual Orientation Not on file documented as of this encounter Last Filed Vital Signs Vital Sign Reading Time Taken Comments Blood Pressure 130/76 08/11/2018 10:07 AM PROSPECTING OBSERVER Pulse 58 08/11/2018 10:07 AM PROSPECTING OBSERVER Temperature - - Respiratory Rate - - Oxygen Saturation - - Inhaled Oxygen Concentration - - Weight 165.6 kg (365 lb) 08/11/2018 10:07 AM PROSPECTING OBSERVER Height 188 cm (6' 2 ) 08/11/2018 10:07 AM PROSPECTING OBSERVER Body Mass Index 46.86 08/11/2018 10:07 AM PROSPECTING OBSERVER documented in this encounter Progress Notes * Norberto Cordero DO - 08/11/2018 10:15 AM CST Patient Name: Bernie Carey Provider:Norberto Cordero DO : 1940 Date of Service: 08/11/2018 Referring: [facility] CHIEF COMPLAINT: Atrial Fibrillation Bernie presents today for follow-up evaluation. Clinically he is doing fine having no chest pain dyspnea HISTORY OF PRESENT ILLNESS: Mr Bernie Carey is a 77 year old male who has a history of recurrent atrial fibrillations of 5years duration, 3 episodes of which occurred during hospitalizations, the first 2 with surgical intervention. I first met Bernie in March 2016 for atrial fibrillation with [...] unknown by patient. Current Outpatient Prescriptions: ??? atorvastatin (LIPITOR) 20 mg tablet, take [...] every day, Disp: 0, Rfl: 0 ??? finasteride (PROSCAR) 5 mg tablet, Take 5 mg by mouth daily., Disp: , Rfl: ??? flecainide (TAMBOCOR) 50 mg tablet, Take 1 tablet (50 mg total) by mouth 2 (two) times a day., Disp: 180 tablet, Rfl: 3 ??? furosemide (LASIX) 20 mg tablet, take [...] every day, Disp: 0, Rfl: 0 ??? PROAIR HFA 90 mcg/actuation inhaler, , Disp: , Rfl: ??? tamsulosin (FLOMAX) 0.4 mg capsule,extended release 24hr, take 1 capsule by oral route every day 1/2 hour following the same meal each day, Disp: 0, Rfl: 0 ??? warfarin (COUMADIN) 5 mg tablet, , Disp: , Rfl: Patient is allergic to adhesive tape-silicones. PHYSICAL EXAM: BP 130/76 Pulse 58 Ht 188 cm (6' 2 ) Wt (!) 165.6 kg (365 lb) BMI 46.86 kg/m?? General: Well appearing, No [...] Diagnoses and all orders for this visit: Essential hypertension (Primary) Assessment & Plan: His BP is at goal Pure hypercholesterolemia Assessment & Plan: Lipid profile today=TC 170/ HDL 55/ TG 129/ LDL 89 He is at goal on lipitor 20 mg a day Atrial fibrillation, unspecified type (CMS/HCC) - ECG 12 lead Morbid obesity with BMI of 40.0-44.9, adult ([facility]) Assessment & Plan: He continues to work with calorie restriction and ambulation Atrial fibrillation, currently in sinus rhythm Assessment & Plan: He remains on flecanide without sx; EKG last January= NSR; Holter in 2017= NSR, today EKG= NSR, 1st degree AVB; intervals ok; will continue warfarin more for 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, as he has been in rhythm since 2016 PECTING OBSERVER documented in this encounter Miscellaneous Notes * Assessment & Plan Note - Norberto Cordero DO - 08/11/2018 10:34 AM PROSPECTING OBSERVER Associated Problem(s): Morbid obesity with BMI of 45.0-49.9, adult ([facility]) He continues to work with calorie restriction and ambulation PECTING OBSERVER * Assessment & Plan Note - Norberto Cordero DO - 08/11/2018 10:30 AM PROSPECTING OBSERVER Associated Problem(s): Pure hypercholesterolemia Lipid profile today=TC 170/ HDL 55/ TG 129/ LDL 89 He is at goal on lipitor 20 mg a day PECTING OBSERVER * Assessment & Plan Note - Norberto Cordero DO - 08/11/2018 10:26 AM PROSPECTING OBSERVER Associated Problem(s): Atrial fibrillation, currently in sinus rhythm He remains on flecanide without sx; EKG last January= NSR; Holter in 2016= NSR, today EKG= NSR, 1st degree AVB; intervals ok; will continue warfarin more for 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, as he has been in rhythm since 2016 PECTING OBSERVER PECTING OBSERVER * Assessment & Plan Note - Norberto Cordero DO - 08/11/2018 10:26 AM PROSPECTING OBSERVER Associated Problem(s): Hypertension His BP is at goal PECTING OBSERVER documented in this encounter Plan of Treatment Not on file documented as of this encounter Procedures Procedure Name Priority Date/Time Associated Diagnosis Comments LIPID PANEL Routine 08/11/2018 10:25 AM PROSPECTING OBSERVER ECG 12-LEAD Routine 08/11/2018 Atrial fibrillation, unspecified type (CMS/HCC) documented in this encounter Results * TRANSTHORACIC ECHO (TTE) COMPLETE W DOPPLER/CF W CONTRAST (02/08/2019 11:32 AM CDT) Anatomical Region Laterality Modality Ultrasound 02/08/2019 10:4 3 AM CDT Narrative 02/08/2019 1:04 PM CDT [facility] [place] [address] ECHOCARDIOGRAM Patient Name: BERNIE CAREY : 1940 Study Date: 02/08/2019 10:43:54 AM Gender: M Tech: AM Location: OPT Ref.Provider: NORBERTO CORDERO Height(Cm): 188 BSA: 2.94 Weight(Kg): 165.6 Order Provider: NORBERTO CORDERO Procedures: Echocardiographic Report: Transthoracic Echocardiogram with 2D, M-Mode, Spectral and Color Flow Doppler examination and administration of intravenous contrast. Indications: Atrial fibrillation, and Tricuspid valve disease. Measurements: 2D/M Mode ? Doppler ? Measurement ?Value ?Normal Range ?Measurement ?Value ?Normal Range ? IVSd 2D ?1.28 ? [ 0.60 - 0.90 ] cm ?AV Peak Serjio ?1.1 ?[ 1.0 - 1.7 ] m/s ? LVIDd 2D ? 4.76 ? [ 4.20 - 5.90 ] cm ?AV Peak PG ? 5 ?[ 2 - 9 ] mmHg ? LVIDs 2D ? 3.48 ? [ 2.30 - 3.90 ] cm ?AV Mean PG ? 2 ?[ 2 - 4 ] mmHg ? LVPWd 2D ? 1.23 ? [ 0.60 - 1.00 ] cm ?AV VTI ? 22.8 ? cm ? LA Dimen 2D ?4.20 ? cm ?FRANCA VTI ?5.8 ?[ 2.0 - 4.0 ] cm2 ? AR Diam 2D ? 3.70 ? cm ?LVOT Peak Serjio ?1.08 ? [ 0.70 - 1.10 ] m/s ? TAPSE ?2.40 ? [ 1.60 - 3.00 ] cm ?LVOT Diam ?2.6 ?[ 1.7 - 2.1 ] cm ?LVOT Peak PG ? 5 ?[ 2 - 6 ] mmHg ?LVOT VTI ? 24.2 ? [ 20.0 - 30.0 ] cm ?MV Peak PG ? 3 ?[ 1 - 10 ] mmHg ?MV Mean PG ? 1 ?[ <= 5 ] mmHg ?MV E Peak Serjio ?0.5 ?[ 0.6 - 1.3 ] m/s ?MV A Peak Serjio ?0.8 ?[ 1.0 - 1.2 ] m/s ?MV PHT ? 108.9 ?[ 20.0 - 100.0 ] ms ?MV Decel Time ?366.0 ?[ 104.0 - 258.0 ] ms ?MVA PHT ?2.0 ?[ 2.0 - 4.0 ] ms ?MV E/A Ratio ? 0.6 ?PV Peak Serjio ?1.1 ?[ 0.4 - 0.8 ] m/s ?PV Peak PG ? 4 ?mmHg ?Lat E` Serjio ? 0.10 ? [ 0.10 - 0.15 ] m/s ?Sept E' Serjio ?0.08 ? [ 0.08 - 0.15 ] m/s ?E/E` ? 5.00 ?RV S' ?0.13 ? m/s ? - Findings: Study Quality: Technically difficult study. Contrast [...] valve appearance and function. Trace tricuspid regurgitation. Electronically Signed By: Norberto Cordero DO [facility] 2019-02-08 13:04:04 CDT CC: CC: Procedure Note Norberto Cordero, - 02/08/2019 [facility] [address] [place] [id number] ECHOCARDIOGRAM Patient Name: BERNIE CAREYPatient ID: [id number] : [id number] Date: 02/08/2019 10:43:54 AM Gender: MAccession #: [id number] Tech: AMLocation: OPT Ref.Provider: NORBERTO CORDEROHeight(Cm): 188 BSA: 2.94Weight(Kg): 165.6 Order Provider: NORBERTO CORDERO Procedures: Echocardiographic Report: Transthoracic Echocardiogram with 2D, M-Mode, Spectral and Color FlowDoppler examination and administration of intravenous contrast. Indications: Atrial fibrillation, and Tricuspid valve disease. Measurements: 2D/M Mode Doppler Measurement Value Normal Range Measurement ValueNormal Range IVSd 2D 1.28 [ 0.60 - 0.90 ] cm AV Peak Serjio 1.1 [1.0 - 1.7 ] m/s LVIDd 2D 4.76 [ 4.20 - 5.90 ] cm AV Peak PG 5 [2 - 9 ] mmHg LVIDs 2D 3.48 [ 2.30 - 3.90 ] cm AV Mean PG 2 [2 - 4 ] mmHg LVPWd 2D 1.23 [ 0.60 - 1.00 ] cm AV VTI 22.8 cm LA Dimen 2D 4.20 cm FRANCA VTI 5.8 [2.0 - 4.0 ] cm2 AR Diam 2D 3.70 cm LVOT Peak Serjio 1.08 [0.70 - 1.10 ] m/s TAPSE 2.40 [ 1.60 - 3.00 ] cm LVOT Diam 2.6 [1.7 - 2.1 ] cm LVOT Peak PG 5 [2 - 6 ] mmHg LVOT VTI 24.2 [20.0 - 30.0 ] cm MV Peak PG 3 [1 - 10 ] mmHg MV Mean PG 1 [<= 5 ] mmHg MV E Peak Serjio 0.5 [0.6 - 1.3 ] m/s MV A Peak Serjio 0.8 [1.0 - 1.2 ] m/s MV PHT 108.9 [20.0 - 100.0 ] ms MV Decel Time 366.0 [104.0 - 258.0 ] ms MVA PHT 2.0 [2.0 - 4.0 ] ms MV E/A Ratio 0.6 PV Peak Serjio 1.1 [0.4 - 0.8 ] m/s PV Peak PG 4mmHg Lat E` Serjio 0.10 [0.10 - 0.15 ] m/s Sept E' Serjio 0.08 [0.08 - 0.15 ] m/s E/E` 5.00 RV S' 0.13m/s - Findings: Study Quality: Technically difficult study. Contrast was employed for LV opacificationand endocardial border enhancement. BP: Blood pressure: 119/70 mmHg. Left Ventricle: Normal global and regional left ventricular systolic function. EF 55%.Normal left ventricular diastolic function. Normal left ventricular cavity size. Right Ventricle: Normal right ventricular systolic function. Normal right ventricularsize. Left Atrium: There is mild enlargement of the left atrium. Right Atrium: The right atrium is normal in size. Atrial Septum: Normal appearing atrial septum. Mitral Valve: Normal mitral valve appearance and function. Aortic Valve: Normal aortic valve appearance and function. Tricuspid Valve: Normal tricuspid valve appearance and function. Trace tricuspidregurgitation. Pulmonic Valve: Normal appearance and function of the pulmonic valve. Pericardium: No significant pericardial effusion. Aortic Root and Aorta: Normal caliber aortic root. Aortic Arch: Normal caliber aortic arch. The aortic arch is poorly visualized. IVC: Normal appearance of the inferior vena cava. The IVC is not wellvisualized. Conclusions: 1. Normal global and regional left ventricular systolic function. EF 55%.Normal left ventricular diastolic function. Normal left ventricular cavity size. 2. There is mild enlargement of the left atrium. 3. Normal tricuspid valve appearance and function. Trace tricuspidregurgitation. Electronically Signed By: Norberto Cordero DO [facility] 2019-02-08 13:04:04 CDT CC: CC: Norberto Cordero DO CV ECHO PROCEDURES Final R esult * Lipid panel (08/11/2018 10:25 AM PROSPECTING OBSERVER) SCRIBED Cholesterol, Total 170 l - h EXTERNAL LAB SCRIBED HDL 55 l - h EXTERNAL LAB SCRIBED LDL 89 l - h EXTERNAL LAB SCRIBED Triglycerides 129 l - h EXTERNAL LAB Blood specimen (specimen) 08/11/2018 10:25 AM PROSPECTING OBSERVER Historical Provider LAB BLOOD ORDERABLES Ruth arango Result EXTERNAL LAB * ECG 12 lead (08/11/2018) Norberto Cordero DO ECG ORDERABLES Edited Res ult - Final documented in this encounter Visit Diagnoses Diagnosis Essential hypertension- Primary Unspecified essential hypertension Pure hypercholesterolemia Atrial fibrillation, unspecified type (HCC) Morbid obesity with BMI of 40.0-44.9, adult (HCC) Atrial fibrillation, currently in sinus rhythm Atrial fibrillation, unspecified type (HCC) documented in this encounter Discontinued Medications Medication Sig Discontinue Reason Start Date End Da te ferrous sulfate ER 324 mg (65 mg iron) EC tabletIndications:Iron Deficiency Anemia Take 65 mg by mouth daily with breakfast. Error 08/11/2018 documented as of this encounter Historical Medications * This list may reflect changes made after this encounter. Medication Sig Dispense Quantity Refills Last Filled Start D ate End Date PROAIR HFA 90 mcg/actuation inhaler 08/05/2018 added in this encounter Care Teams Make Up Operator Helper Relationship Specialty Start Date End Date Jessica Arroyo MD PCP - General Family Practice 08/11/18 08/04/22 documented as of this encounter
--- OUTSIDE RECORDS SUMMARY | 2024-07-24 00:11 | XMS_ITS | Encounter Summary ---
Author Organization [facility] Medical [facility] Address [address] [place] [address] Care Team Providers Care Corporate Human Resources Manager Name Role Phone Christopher Diop MD Primary Care Provider [phone]- [phone] Reason for Visit * Reason Comments Atrial Fibrillation Hypertension Encounter Details Date Type Department Care Team (Late st Contact Info) Description 01/27/2018 10:45 AM CDT Office [place] [facility] [address] [place] [address] Norberto Cordero, [address] [place] [address] Atrial fibrillation, unspecified type (CMS/HCC) (Primary Dx); Morbid obesity with BMI of 40.0-44.9, adult (CMS/HCC); Pure hypercholesterolemia; Paroxysmal atrial fibrillation (CMS/HCC) Social History Tobacco Use Types Packs/Day Years Used Date Smoking Tobacco: Former Smokeless Tobacco: Never Alcohol Use Standard Drinks/Week Comments No 0 (1 standard drink = 0.6 oz pur e alcohol) Sex and Gender Information Value Date Recorded Sex Assigned at Not on file Legal Sex Male 3:18 AM BENCH LOOM WEAVER Gender Identity Not on file Sexual Orientation Not on file documented as of this encounter Last Filed Vital Signs Vital Sign Reading Time Taken Comments Blood Pressure 124/68 01/27/2018 11:05 AM CDT Pulse 74 01/27/2018 11:05 AM CDT Temperature - - Respiratory Rate - - Oxygen Saturation - - Inhaled Oxygen Concentration - - Weight 149.7 kg (330 lb) 01/27/2018 11:05 AM CDT Height 188 cm (6' 2 ) 01/27/2018 11:05 AM CDT Body Mass Index 42.37 01/27/2018 11:05 AM CDT documented in this encounter Ordered Prescriptions Prescription Sig Dispense Quantity Refills Last Filled Start Date End Date flecainide (TAMBOCOR) 50 mg tabletIndications: Paroxysmal atrial fibrillation (CMS/HCC) (HCC) Take 1 tablet (50 mg total) by mouth 2 (two) times a day. 180 tablet 3 01/27/2018 08/15/2020 documented in this encounter Progress Notes * Norberto Cordero DO - 01/27/2018 10:45 AM CDT Images from the original note were not included. Patient Name: Neal Amaro Provider:Norberto Cordero DO : 1940 Date of Service: 01/27/2018 Referring: [facility] CHIEF COMPLAINT: Atrial Fibrillation and Hypertension HISTORY OF PRESENT ILLNESS: Mr Neal Amaro [...] in the left popliteal region for DVT In the summer he developed an acute blood loss anemia and was taken off the Xarelto tried on Pradaxa and then warfarin. His hemoglobin was 14.1 December 02, 2017. Neal presents today for follow-up evaluation. Clinically he is doing fine having no chest pain dyspnea. He would like to get off his [...] every day, Disp: 0, Rfl: 0 ??? ferrous sulfate ER 324 mg (65 mg iron) EC tablet, Take 65 mg by mouth daily with breakfast., Disp: , Rfl: ??? finasteride (PROSCAR) 5 mg tablet, Take 5 mg by mouth daily., Disp: , Rfl: ??? furosemide (LASIX) 20 [...] ??? omeprazole (PriLOSEC) 20 mg capsule, Take 20 mg by mouth daily., Disp: , Rfl: ??? pregabalin (LYRICA) 75 mg capsule, take 1 capsule by oral route 3 times every day, Disp: 0, Rfl: 0 ??? tamsulosin (FLOMAX) 0.4 mg capsule,extended release 24hr, take 1 capsule by oral route every day 1/2 hour following the same meal each day, Disp: 0, Rfl: 0 ??? warfarin (COUMADIN) 5 mg tablet, , Disp: , Rfl: ??? flecainide (TAMBOCOR) 50 mg tablet, Take 1 tablet (50 mg total) by mouth 2 (two) times a day., Disp: 180 tablet, Rfl: 3 Patient is allergic to adhesive tape-silicones. PHYSICAL EXAM: BP 124/68 Pulse 74 Ht 188 cm (6' 2 ) Wt (!) 149.7 kg (330 lb) BMI 42.37 kg/m?? General: Well appearing, No pain or [...] all orders for this visit: Atrial fibrillation, unspecified type (CMS/HCC) (Primary) - ECG 12 lead Morbid obesity with BMI of 40.0-44.9, adult (CMS/HCC) Assessment & Plan: He works with diet, exercise limited as he walks with a cane Pure hypercholesterolemia Assessment & Plan: . SCRIBED Cholesterol, Total l - h 151 116 SCRIBED HDL l - h 45 34 SCRIBED LDL l - h 87 64 SCRIBED Triglycerides l - h 95 07/21/2017 He is at goal on 20 mg lipitor Paroxysmal atrial fibrillation (CMS/HCC) Assessment & Plan: His EKG today demonstrates NSR . I discussed with him the options to continue the amiodarone as is,obviously watching the thyroid and lung are to switch him to Tambocor since he has a normal EF and a structured normal heart by echo and nuclear stress test. Unfortunately he may never come off the warfarin since he has a history of a DVT and has an IVC filter in place. He will start the tambocor 03/03 and stop the amiodarone now Orders: - flecainide (TAMBOCOR) 50 mg tablet; Take 1 tablet (50 mg total) by mouth 2 (two) times a day. documented in this encounter Miscellaneous Notes * Assessment & Plan Note - Norberto Cordero DO - 01/27/2018 11:24 AM CDT Associated Problem(s): Paroxysmal atrial fibrillation (CMS/HCC) (HCC) His EKG today demonstrates NSR . I discussed with him the options to continue the amiodarone as is,obviously watching the thyroid and lung are to switch him to Tambocor since he has a normal EF and a structured normal heart by echo and nuclear stress test. Unfortunately he may never come off the warfarin since he has a history of a DVT and has an IVC filter in place. He will start the tambocor 03/03 and stop the amiodarone now * Assessment & Plan Note - Norberto Cordero DO - 01/27/2018 11:21 AM CDT Associated Problem(s): Pure hypercholesterolemia Images from the original note were not included. . SCRIBED Cholesterol, Total l - h 151 116 SCRIBED HDL l - h 45 34 SCRIBED LDL l - h 87 64 SCRIBED Triglycerides l - h 95 07/21/2017 He is at goal on 20 mg lipitor * Assessment & Plan Note - Norberto Cordero DO - 01/27/2018 11:20 AM CDT Associated Problem(s): Morbid obesity with BMI of 45.0-49.9, adult (HCC) He works with diet, exercise limited as he walks with a cane documented in this encounter Plan of Treatment Not on file documented as of this encounter Procedures Procedure Name Priority Date/Time Associated Diagnosis Comments ECG 12-LEAD Routine 01/27/2018 Atrial fibrillation, unspecified type (CMS/HCC) documented in this encounter Results * ECG 12 lead (01/27/2018) Norberto Cordero DO ECG ORDERABLES Final Resu lt documented in this encounter Visit Diagnoses Diagnosis Atrial fibrillation, unspecified type (HCC)- Primary Morbid obesity with BMI of 40.0-44.9, adult (HCC) Pure hypercholesterolemia Paroxysmal atrial fibrillation (CMS/HCC) (HCC) Atrial fibrillation documented in this encounter Discontinued Medications Medication Sig Discontinue Reason Start Date End Da te simvastatin (ZOCOR) 20 mg tablet Take 20 mg by mouth nightly. Error 01/27/2018 amiodarone (PACERONE) 200 mg tablet Take one tablet by mouth every day Alternate therapy 01/04/2018 01/27/2018 documented as of this encounter Historical Medications * This list may reflect changes made after this encounter. omeprazole (PriLOSEC) 20 mg capsule Take 40 mg by mouth daily. 08/15/2020 simvastatin (ZOCOR) 20 mg tablet Take 20 mg by mouth nightly. 01/27/2018 ferrous sulfate ER 324 mg (65 mg iron) EC tabletIndications :Iron Deficiency Anemia Take 65 mg by mouth daily with breakfast. 08/11/2018 finasteride (PROSCAR) 5 mg tablet Take 5 mg by mouth daily. 02/08/2019 added in this encounter Care Teams Corporate Human Resources Manager Relationship Specialty Start Date End Date Christopher Diop MD [address] [place] [address] PCP - General 10/31/16 08/10/18 documented as of this encounter
--- OUTSIDE RECORDS SUMMARY | 2024-07-24 00:11 | XMS_ITS | Encounter Summary ---
Author Organization [facility] Medical Group Address [address] [place] [address] Care Team Providers Care Extractor Machine Operator Name Role Phone Christopher Diop MD Primary Care Provider +1- [phone] Jessica Arroyo MD Primary Care Provider [phone]- [phone] Reason for Referral * Cardiology (Routine) - Closed Specialty Diagnoses / Procedures Referred By Contac t Referred To Contact Procedures 48 HR Holter Monitor Dee Barros MD [address] [place] [address] Phone: tel: Referral ID Status Reason Start Date Expiration Date Visits Re quested Visits Authorized [id number] Closed 01/12/2017 07/11/2017 1 1 Encounter Details Date Type Department Care Team (Late st Contact Info) Description 01/12/2017 [facility] [address] [place] [address] Dee Barros MD [address] [place] [address] Social History Tobacco Use Types Packs/Day Years Used Date Smoking Tobacco: Former Cigarettes Q uit: 08/03/1979 Alcohol Use Standard Drinks/Week Comments No 0 (1 standard drink = 0.6 oz pur e alcohol) Sex and Gender Information Value Date Recorded Sex Assigned at Not on file Legal Sex Male 3:18 AM TELEPHONIC CASE MANAGER Gender Identity Not on file Sexual Orientation Not on file documented as of this encounter Plan of Treatment Not on file documented as of this encounter Procedures Procedure Name Priority Date/Time Associated Diagnosis Comments HOLTER MONITOR 48 HR Routine 01/01/2017 documented in this encounter Results * 48 HR Holter Monitor (01/01/2017) Anatomical Region Laterality Modality Other us Historical Provider [facility] Final Result documented in this encounter Visit Diagnoses Not on filedocumented in this encounter Care Teams Extractor Machine Operator Relationship Specialty Start Date End Date Christopher Diop MD [address] [place] [address] PCP - General 10/31/16 08/10/18 Jessica Arroyo MD [address] [place] [address] PCP - General Family Practice 08/11/18 08/04/22 documented as of this encounter
--- OUTSIDE RECORDS SUMMARY | 2024-07-24 00:11 | XMS_ITS | Encounter Summary ---
Author Organization [facility] Address [address] [place] [address] Care Team Providers Care Raw Stock Machine Feeder Name Role Phone Christopher Diop MD Primary Care Provider +1- [phone] Christopher Diop MD Primary Care Provider +1- [phone] Encounter Details Date Type Department Care Team (Late st Contact Info) Description 10/21/2016 [facility] Only [facility] [address] [place] [address] Ronaldo Guzman MD [address] [place] [address] Social History Tobacco Use Types Packs/Day Years Used Date Smoking Tobacco: Former Cigarettes Q uit: 08/03/1979 Alcohol Use Standard Drinks/Week Comments No 0 (1 standard drink = 0.6 oz pur e alcohol) Sex and Gender Information Value Date Recorded Sex Assigned at Not on file 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 Potassium, pl 4.4 3.3 - 4.9 mmol/L [facility] Chloride 109(H) 98 - 108 mmol/L [facility] CO2 27 22 - 33 mmol/L [facility] BUN 26(H) 7 - 18 mg/dL [facility] Glucose 180(H) 70 - 140 mg/dL [facility] Comment: Glucose is assumed to be non-fasting. Fasting Glucose normal ranges are: Ages 0 days - 2 month: 40 - 100 mg/dL Ages 2 months - 999 years: 70 - 140 mg/dL Creatinine 1.54(H) 0.50 - 1.50 mg/dL [facility] Calcium 8.8 8.5 - 10.5 mg/dL [facility] Anion gap 4 mmol/L [facility] Blood specimen (specimen) 10/21/2016 1:31 PM CDT 10/21/2016 3:33 PM CDT Ronaldo Guzman MD LAB BLOOD ORDERABLES Fi nal Result [facility] [address] Department of Laboratories [place], [place] [id number] documented in this encounter Visit Diagnoses Not on filedocumented in this encounter Care Teams Raw Stock Machine Feeder Relationship Specialty Start Date End Date Christopher Diop MD [address] [place] [address] PCP - General 10/31/16 08/10/18 Christopher Diop MD [address] [place] [address] PCP - General 10/21/16 10/30/16 documented as of this encounter
--- OUTSIDE RECORDS SUMMARY | 2024-07-24 00:11 | XMS_ITS | Encounter Summary ---
Author Organization [facility] Address [address] [place] [address] Care Team Providers Care Car Customizer Name Role Phone Christopher Diop MD Primary Care Provider +1- [phone] Reason for Visit * Diagnostic Imaging (Routine) - Closed Specialty Diagnoses / Procedures Referred By Roly reinoso Referred To Contact Diagnoses Atrial fibrillation, currently in sinus rhythm Procedures NM MPI Spect (Rest And Stress) Multiple Studies Norberto Cordero DO Phone: tel: fax: Referral ID Status Reason Start Date Expiration Date Visits Re quested Visits Authorized [id number] Closed 01/27/2017 07/26/2017 1 1 Encounter Details Date Type Department Care Team (Latest Contact Info) Description 02/04/2017 10:15 AM CDT Ancillary Procedure [facility] Cardiology [address] [place] [address] Atrial fibrillation, currently in sinus rhythm Social History Tobacco Use Types Packs/Day Years Used Date Smoking Tobacco: Former Cigarettes Q uit: 08/03/1979 Alcohol Use Standard Drinks/Week Comments No 0 (1 standard drink = 0.6 oz pur e alcohol) Sex and Gender Information Value Date Recorded Sex Assigned at Not on file 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 Gender Identity Not on file Sexual Orientation Not on file documented as of this encounter Progress Notes * Norberto Cordero DO - 02/04/2017 10:15 AM CDT stress test is normal documented in this encounter Plan of Treatment Not on file documented as of this encounter Procedures Procedure Name Priority Date/Time Associated Diagnosis Comments NM MPI SPECT (REST AND/OR STRESS) MULTIPLE STUDIES Routine 02/04/2017 12:24 PM CDT Atrial fibrillation, currently in sinus rhythm documented in this encounter Results * NM MPI Spect (Rest And Stress) Multiple Studies (02/04/2017 12:24 PM CDT) Anatomical Region Laterality Modality Body N/A Nuclear Medicine 02/04/2017 12:4 6 PM CDT Narrative 02/06/2017 5:03 PM CDT [facility] [address] [address] [address] [address] P:[phone] P:[phone] MPI Imaging Report Patient Name: BERNIE CAREY F : 1940 Study Date: 02/04/2017 12:46:26 PM Gender: M Tech: RUPERT Schultz ?Location: [facility] ?? Ref.Physician: NORBERTO CORDERO ?Height(Cm): 188 ? BSA: Weight(Kg): 156 BMI: 44.14Order Physician: NORBERTO CORDERO Physician: Referring Physician: Dr. Cordero. HCG Physician: none. Interpreting Physician: Saurabh Wallace M.D. Stress Supervision: Saurabh Wallace M.D. Procedures: Myocardial perfusion imaging with Tc99M Sestamibi SPECT at rest and stress post regadenoson (Lexiscan) infusion. Indications: Atrial Fibrillation, Hypertension, and MCMANUS. Findings: Procedural Findings: Two day rest/stress was used. Tc99m Sestamibi injected IV at rest was 30.3 millicuries. 30.6 millicuries of Tc99M Sestamibi injected IV during Lexiscan stress. Lexiscan 0.4mg administered IV over 10 seconds. Patient had no symptoms during stress test. Baseline heart rate was 63 BPM. Maximum Heart Rate Achieved was: 79 BPM. Baseline blood pressure was 122/62 mmHg. Post Stress Blood Pressure was 116/60 mmHg. Termination: Protocol complete. Resting ECG: Normal sinus rhythm. Post ECG: No diagnostic ST changes. Arrhythmia: No arrhythmias seen. Perfusion Findings: Probably normal perfusion imaging. No definite fixed or reversible defects. Technical quality of study is excellent. Prone imaging was not performed. Left ventricle cavity size at rest is normal. Left ventricle cavity size with stress is unchanged. A TID of 1.05 was automatically calculated. defect 1: Size is small. Severity is mild. Type of defect is most likely attenuation artifact. Artifact due to diaphragmatic attenuation. LV Function: Global left ventricular function is normal. Left ventricular ejection fraction is 66 %. Conclusions: No diagnostic ST changes. Global left ventricular function is normal. Left ventricular ejection fraction is 66 %. Myocardial perfusion imaging is probably normal. Inferior defect likely attenuation artifact particularly given entirely normal wall motion. Based on the results of this test, the patient`s symptoms do not appear to be due to myocardial ischemia. Electronically Signed By: Saurabh Wallace MD 2017-02-06 17:03:15 CDT Electronically Signed By: Saurabh Wallace MD 2017-02-06 17:03:16 CDT CC: CC: Procedure Note Terrell Wallace MD - 02/06/2017 [facility] [address] [facility] [address] [address] [address], [place] [address] P:[phone] P:[phone] MPI Imaging Report Patient Name: BERNIE CAREY FPatient ID: [id number] : [id number] Date: 02/04/2017 12:46:26 PM Gender: MAccession #: [id number] Tech: RUPERT Schultz Location: [facility].Physician: NORBERTO CORDERO Height(Cm): 188 BSA: Weight(Kg): 156 BMI: 44.14Order Physician: NORBERTO CORDERO Physician: Referring Physician: Dr. Cordero. HCG Physician: none. Interpreting Physician: Saurabh Wallace M.D. Stress Supervision: Saurabh Wallace M.D. Procedures: Myocardial perfusion imaging with Tc99M Sestamibi SPECT at rest and stresspost regadenoson (Lexiscan) infusion. Indications: Atrial Fibrillation, Hypertension, and MCMANUS. Findings: Procedural Findings: Two day rest/stress was used. Tc99m Sestamibi injected IV at rest was 30.3millicuries. 30.6 millicuries of Tc99M Sestamibi injected IV during Lexiscan stress.Lexiscan 0.4mg administered IV over 10 seconds. Patient had no symptoms during stresstest. Baseline heart rate was 63 BPM. Maximum Heart Rate Achieved was: 79 BPM. Baselineblood pressure was 122/62 mmHg. Post Stress Blood Pressure was 116/60 mmHg. Termination: Protocol complete. Resting ECG: Normal sinus rhythm. Post ECG: No diagnostic ST changes. Arrhythmia: No arrhythmias seen. Perfusion Findings: Probably normal perfusion imaging. No definite fixed or reversibledefects. Technical quality of study is excellent. Prone imaging was not performed. Leftventricle cavity size at rest is normal. Left ventricle cavity size with stress isunchanged. A TID of 1.05 was automatically calculated. defect 1: Size is small. Severity is mild. Type of defect is most likely attenuationartifact. Artifact due to diaphragmatic attenuation. LV Function: Global left ventricular function is normal. Left ventricular ejectionfraction is 66 %. Conclusions: No diagnostic ST changes. Global left ventricular function is normal. Left ventricular ejectionfraction is 66 %. Myocardial perfusion imaging is probably normal. Inferior defect likelyattenuation artifact particularly given entirely normal wall motion. Based on the results of this test, the patient`s symptoms do not appear delon due to myocardial ischemia. Electronically Signed By: Saurabh Wallace MD 2017-02-06 17:03:15 CDT Electronically Signed By: Saurabh Wallace MD 2017-02-06 17:03:16 CDT CC: CC: Norberto Cordero DO IMG NM PROCEDURES Final Re sult documented in this encounter Visit Diagnoses Diagnosis Atrial fibrillation, currently in sinus rhythm documented in this encounter Administered Medications Inactive Administered Medications - up to 3 most recent administrations Medication Order MAR Action Action Date Dose Rate Site tc-99m sestamibi unit dose injection 30.3 millicurie 30.3 millicurie, intravenous, Once in imaging, radiopharmaceutical, Starting on Thu02/04/17 at 1100, For 1 dose, Indications: Diagnostic RadiographyIndications:Aimee gnostic Radiography Given 02/04/2017 11:00 AM CDT 30.3 millicuries documented in this encounter Care Teams Car Customizer Relationship Specialty Start Date End Date Christopher Diop MD [address] [place] [address] PCP - General 10/31/16 08/10/18 documented as of this encounter
--- OUTSIDE RECORDS SUMMARY | 2024-07-24 00:11 | XMS_ITS | Encounter Summary ---
Author Organization [facility] Address [address] [place] [address] Care Team Providers Care Periodontal Assistant Name Role Phone Jessica Arroyo MD Primary Care Provider +1- [phone] Reason for Visit * Reason Comments Chart Review Encounter Details Date Type Department Care Team (Late st Contact Info) Description 03/14/2019 SHOP/CHAP Initial Eligibility Review [facility] OP CASE MANAGEMENT [address] [place] [address] Freya Hdz, GENERAL ADJUSTER [address] [address] Social History Tobacco Use Types Packs/Day Years Used Date Smoking Tobacco: Former Smokeless Tobacco: Never Alcohol Use Standard Drinks/Week Comments No 0 (1 standard drink = 0.6 oz pur e alcohol) Sex and Gender Information Value Date Recorded Sex Assigned at Not on file 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
--- OUTSIDE RECORDS SUMMARY | 2024-07-24 00:11 | XMS_ITS | Encounter Summary ---
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
--- OUTSIDE RECORDS SUMMARY | 2024-07-24 00:11 | XMS_ITS | Encounter Summary ---
Author Organization [facility] Address [address] [place] [address] Care Team Providers Care Housekeeping Supervisor Hotel Name Role Phone Christopher Diop MD Primary Care Provider +1- [phone] Reason for Visit * Diagnostic Imaging (Routine) - Closed Specialty Diagnoses / Procedures Referred By Roly reinoso Referred To Contact Diagnoses Atrial fibrillation, currently in sinus rhythm Procedures NM MPI Spect (Rest And Stress) Multiple Studies Norberto Cordero DO Phone: tel: fax: Referral ID Status Reason Start Date Expiration Date Visits Re quested Visits Authorized [id number] Closed 01/30/2017 07/29/2017 1 1 Encounter Details Date Type Department Care Team (Latest Contact Info) Description 02/06/2017 11:45 AM CDT Ancillary Procedure [facility] Cardiology [address] [place] [address] Atrial fibrillation, currently in sinus rhythm Social History Tobacco Use Types Packs/Day Years Used Date Smoking Tobacco: Former Cigarettes Q uit: 08/03/1979 Alcohol Use Standard Drinks/Week Comments No 0 (1 standard drink = 0.6 oz pur e alcohol) Sex and Gender Information Value Date Recorded Sex Assigned at Not on file 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 Gender Identity Not on file Sexual Orientation Not on file documented as of this encounter Plan of Treatment Pending Results Name Type Priority Associated Diagnoses Date /Time NM MPI Spect (Rest And Stress) Multiple Studies Imaging Schedule Routine, Read Routine (OP Routine) Atrial fibrillation, currently in sinus rhythm 02/06/2017 8:36 AM CDT documented as of this encounter Visit Diagnoses Diagnosis Atrial fibrillation, currently in sinus rhythm documented in this encounter Administered Medications Inactive Administered Medications - up to 3 most recent administrations Medication Order MAR Action Action Date Dose Rate Site regadenoson (LEXISCAN) 0.4 mg/5 mL injection 0.4 mg 0.4 mg, intravenous, Once, On Thu02/06/17 at 0830, For 1 dose, Indications: Myocardial Perfusion Imaging AdjunctIndications:Myocard ial Perfusion Imaging Adjunct Given 02/06/2017 8:20 AM CDT 0.4 mg tc-99m sestamibi unit dose injection 30.6 millicurie 30.6 millicurie, intravenous, Once in imaging, radiopharmaceutical, Starting on Thu02/06/17 at 0820, For 1 dose, Indications: Diagnostic RadiographyIndications:Aimee gnostic Radiography Given 02/06/2017 8:20 AM CDT 30.6 millicuries documented in this encounter Care Teams Housekeeping Supervisor Hotel Relationship Specialty Start Date End Date Christopher Diop MD [address] [place] [address] PCP - General 10/31/16 08/10/18 documented as of this encounter
--- OUTSIDE RECORDS SUMMARY | 2024-07-24 00:11 | XMS_ITS | Encounter Summary ---
Author Organization [facility] Address [address] [place] [address] Care Team Providers Care Suspect Artist Name Role Phone Christopher Diop MD Primary Care Provider +1- [phone] Reason for Referral * Diagnostic Imaging (Routine) - Closed Specialty Diagnoses / Procedures Referred By Roly reinoso Referred To Contact Diagnoses Atrial fibrillation, currently in sinus rhythm Procedures NM MPI Spect (Rest And Stress) Multiple Studies Norberto Cordero DO Phone: tel: fax: Referral ID Status Reason Start Date Expiration Date Visits Re quested Visits Authorized [id number] Closed 01/30/2017 07/29/2017 1 1 Reason for Visit * Reason Comments Shortness of Breath Encounter Details Date Type Department Care Team (Late st Contact Info) Description 01/20/2017 12:00 PM CDT Office Visit [facility] [place] [place] Cardiology [address] [place] [address] Norberto Cordero DO [address] [place] [address] [address] [place] [address] Atrial fibrillation, currently in sinus rhythm (Primary Dx); 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 (CMS/HCC); Pure hypercholesterolemia; Dyspnea on exertion Social History Tobacco Use Types Packs/Day Years Used Date Smoking Tobacco: Former Cigarettes Q uit: 08/03/1979 Alcohol Use Standard Drinks/Week Comments No 0 (1 standard drink = 0.6 oz pur e alcohol) Sex and Gender Information Value Date Recorded Sex Assigned at Not on file 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 Gender Identity Not on file Sexual Orientation Not on file documented as of this encounter Last Filed Vital Signs Vital Sign Reading Time Taken Comments Blood Pressure 104/58 01/20/2017 12:34 PM CDT Pulse 70 01/20/2017 12:34 PM CDT Temperature - - Respiratory Rate - - Oxygen Saturation - - Inhaled Oxygen Concentration - - Weight 156.5 kg (345 lb) 01/20/2017 12:34 PM CDT Height 188 cm (6' 2 ) 01/20/2017 12:34 PM CDT Body Mass Index 44.3 01/20/2017 12:34 PM CDT documented in this encounter Progress Notes * Norberto Cordero DO - 01/20/2017 12:00 PM CDT Patient Name: Neal Amaro Provider:Norberto Cordero DO : 1940 Date of Service: 01/20/2017 Referring: [facility] CHIEF COMPLAINT: Neal presents to the office today for follow-up evaluation. Clinically continues to have the persistent dyspnea on exertion which she feels is getting worse. He has had no chest pain. He saw Pulmonary and had an oxygen desaturation study performed but his O2 sat only fell from 99-90% so he did not qualify for supplemental oxygen. His echocardiogram in March of 2016 demonstrated normal function. His EF was 72%. He continues to have serious issues with his the site and had multiple steroid injections into the eye but his vision continues to deteriorate. HISTORY OF PRESENT ILLNESS: Mr Neal Amaro is a 76 year old male who has a history of recurrent atrial fibrillations of 5years duration, 3 episodes of which occurred during hospitalizations, the first 2 with surgical intervention. I firstmet Neal in March 2016 for atrial fibrillation [...] or bruising Past Medical History He has no past medical history on file. He has no past surgical history on file. His reports that he quit smoking about 37 years ago. He does not have any smokeless tobacco historyon file. He reports that he does not drink alcohol. Hisfamily history is not on file. Current Outpatient Prescriptions: ??? amiodarone (PACERONE) 200 mg tablet, take 1 tablet by ORAL route every day, Disp: 90, Rfl: 3 ??? atorvastatin (LIPITOR) 20 mg tablet, take [...] every day, Disp: 0, Rfl: 0 ??? rivaroxaban (XARELTO) tablet, take 1 tablet by oral route every day with the evening meal, Disp: 0, Rfl: 0 ??? tamsulosin (FLOMAX) 0.4 mg capsule,extended release 24hr, take 1 capsule by oral route every day 1/2 hour following the same meal each day, Disp: 0, Rfl: 0 Patient is allergic to adhesive tape-silicones. PHYSICAL EXAM: BP 104/58 Pulse 70 Ht 188 cm (6' 2 ) Wt (!) 156 kg (345 lb) BMI 44.30 kg/m?? General: Well appearing, No pain or [...] Diagnoses and all orders for this visit: 1. Atrial fibrillation, currently in sinus rhythm (Primary) Assessment & Plan: A Holter monitor performed January 05 demonstrated [...] the aspirin since he is taking Xarelto. Orders: - Stress Test Only Pharmacologic; Future 2. 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 He is asymptomatic at the present time. 3. Pure hypercholesterolemia Assessment & Plan: His lipid profile was performed March 22, 2016 at which time his total cholesterol is 116, triglycerides 80, HDL 34 and LDL 66. He remains at goal on Lipitor 20 mg a day 4. Dyspnea on exertion Assessment & Plan: The only cardiac etiology that I have not pursued would be to look for coronary disease. As result I will schedule him for an elective Lexiscan nuclear stress test over at [facility] which is convenient. If this is negative and since pulmonary is no from there mechanism. It may be worthwhileto consider some type of an alternate exercise program such as swimming, i.e. water aerobic documented in this encounter Miscellaneous Notes * Assessment & Plan Note - Norberto Cordero DO - 01/20/2017 1:50 PM CDT Associated Problem(s): Dyspnea The only cardiac etiology that I have not pursued would be to look for coronary disease. As result I will schedule him for an elective Lexiscan nuclear stress test over at [facility] which is convenient. If this is negative and since pulmonary is no from there mechanism. It may be worthwhileto consider some type of an alternate exercise program such as swimming, i.e. water aerobic * Assessment & Plan Note - Norberto Cordero DO - 01/20/2017 1:40 PM CDT Associated Problem(s): Pure hypercholesterolemia His lipid profile was performed March 22, 2016 at which time his total cholesterol is 116, triglycerides 80, HDL 34 and LDL 66. 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 He is asymptomatic at the present time. * Assessment & Plan Note - Norberto Cordero DO - 01/20/2017 1:36 PM CDT Associated Problem(s): Atrial fibrillation, currently in sinus rhythm A Holter monitor performed January 05 demonstrated [...] the aspirin since he is taking Xarelto. * Addendum Note - Jef Hinkle MA - 01/20/2017 12:00 PM CDTAddended by: JEF HINKLE on: 01/30/2017 12:24 PM Modules accepted: Orders documented in this encounter Plan of Treatment Pending Results Name Type Priority Associated Diagnoses Date /Time NM MPI Spect (Rest And Stress) Multiple Studies Imaging Schedule Routine, Read Routine (OP Routine) Atrial fibrillation, currently in sinus rhythm 02/06/2017 8:36 AM CDT Scheduled Orders Name Type Priority Associated Diagnoses Vladimire r Schedule NM MPI Spect (Rest And Stress) Multiple Studies Imaging Schedule Routine, Read Routine (OP Routine) Atrial fibrillation, currently in sinus rhythm Expected: 02/04/2017, Expires: 01/30/2018 documented as of this encounter Procedures Procedure Name Priority Date/Time Associated Diagnosis Comments LIPID PANEL Routine 03/22/2016 12:00 PM CDT documented in this encounter Results * Lipid panel (03/22/2016 12:00 PM CDT) SCRIBED Cholesterol, Total 116 l - h EXTERNAL NON-INTERFACE D LAB SCRIBED HDL 34 l - h EXTERNAL NON-INTERFACE D LAB SCRIBED LDL 64 l - h EXTERNAL NON-INTERFACE D LAB SCRIBED Triglycerides 80 l - h EXTERNAL NON-INTERFACE D LAB Blood specimen (specimen) 03/22/2016 12:00 PM CDT us Historical Provider LAB BLOOD ORDERABLES Ruth l Result EXTERNAL NON-INTERFACED LAB [address] 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
--- OUTSIDE RECORDS SUMMARY | 2024-07-24 00:11 | XMS_ITS | Encounter Summary ---
Author Organization [facility] Address [address] [place] [address] Care Team Providers Care Target Aircraft Technician Name Role Phone Jessica Arroyo MD Primary Care Provider +1- [phone] Reason for Visit * Hospital - Outpatient (Routine) - Closed Specialty Diagnoses / Procedures Referred By Roly reinoso Referred To Contact Diagnoses Atrial fibrillation, unspecified type (HCC) Procedures Transthoracic Echo Complete W Doppler/CF Norberto Cordero DO Phone: tel: fax: [facility] [address] [place] [address] Referral ID Status Reason Start Date Expiration Date Visits Re quested Visits Authorized [id number] Closed 08/11/2018 02/19/2019 1 1 Encounter Details Date Type Department Care Team (Latest Contact Info) Description 02/08/2019 11:00 AM CDT Ancillary Procedure [facility] OP Cardiac Testing [address] [place] [address] Norberto Cordero DO [address] [place] [address] Atrial fibrillation, unspecified type (CMS/HCC) Discharge Disposition: Discharge to home or self care Social History Tobacco Use Types Packs/Day Years Used Date Smoking Tobacco: Former Smokeless Tobacco: Never Alcohol Use Standard Drinks/Week Comments No 0 (1 standard drink = 0.6 oz pur e alcohol) Sex and Gender Information Value Date Recorded Sex Assigned at Not on file 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 Gender Identity Not on file Sexual Orientation Not on file documented as of this encounter Discharge Disposition Disposition Code Departure Means Destination Discharge to home or self care documented in this encounter Plan of Treatment Not on file documented as of this encounter Procedures Procedure Name Priority Date/Time Associated Diagnosis Comments TRANSTHORACIC ECHO (TTE) COMPLETE W DOPPLER/CF W CONTRAST Routine 02/08/2019 11:32 AM CDT Atrial fibrillation, unspecified type (CMS/HCC) documented in this encounter Results * TRANSTHORACIC ECHO (TTE) COMPLETE W DOPPLER/CF W CONTRAST (02/08/2019 11:32 AM CDT) Anatomical Region Laterality Modality Ultrasound 02/08/2019 10:4 3 AM CDT Narrative 02/08/2019 1:04 PM CDT [facility] [address] [place] [id number] ECHOCARDIOGRAM Patient Name: BERNIE CAREY : 1940 [...] regurgitation. Electronically Signed By: Norberto Cordero DO [facility] 2019-02-08 13:04:04 CDT CC: CC: Procedure Note Norberto Cordero DO - 02/08/2019 [facility] [address] [place] [address] ECHOCARDIOGRAM Patient Name: BERNIE CAREYPatient ID: [id number] : [id number] Date: 02/08/2019 10:43:54 AM Gender: MAccession #: [id number] Tech: AMLocation: OPT Ref.Provider: NORBERTO CORDEROHeight(Cm): 188 [...] tricuspidregurgitation. Electronically Signed By: Norberto Cordero DO [facility] 2019-02-08 13:04:04 CDT CC: CC: Norberto Cordero DO CV ECHO PROCEDURES Final R esult documented in this encounter Visit Diagnoses Diagnosis Atrial fibrillation, unspecified type (HCC) documented in this encounter Administered Medications Inactive Administered Medications - up to 3 most recent administrations Medication Order MAR Action Action Date Dose Rate Site perflutren protein-a (OPTISON) 3 mL in sodium chloride 0.9% 8 mL syringe 1-8 mL, intravenous, Once in imaging, contrast, Starting on Thu02/08/19 at 1131, For 1 dose, Intra-Procedure (CV) Given 02/08/2019 11:31 AM CDT 3 mL documented in this encounter Orders Medications Ordered That Dell ht Not Have Been Administered Count Last Ordered Date First Ordered Date perflutren protein-a (OPTISO N) 3 mL in sodium chloride 0.9% 8 mL syringe 1 02/08/2019 documented in this encounter Care Teams Target Aircraft Technician Relationship Specialty Start Date End Date Jessica Arroyo MD PCP - General Family Practice 08/11/18 08/04/22 documented as of this encounter
--- OUTSIDE RECORDS SUMMARY | 2024-07-24 00:11 | XMS_ITS | Encounter Summary ---
Author Organization [facility] Address [address] [place] [address] Care Team Providers Care Pot Puller Name Role Phone Jessica Arroyo MD Primary Care Provider +1- [phone] Reason for Visit * Reason Comments Atrial Fibrillation Hyperlipidemia Encounter Details Date Type Department Care Team (Late st Contact Info) Description 02/08/2019 11:45 AM CDT Office Visit [facility] [place] Cardiology [address] [place] [address] Norberto Cordero, [address] [address] [address] [place] [address] Atrial fibrillation, currently in sinus rhythm (Primary Dx); Hyperlipidemia associated with type 2 diabetes mellitus ([facility]); Essential hypertension; Morbid obesity with BMI of 45.0-49.9, adult (CMS/HCC) Social History Tobacco Use Types Packs/Day Years Used Date Smoking Tobacco: Former Smokeless Tobacco: Never Alcohol Use Standard Drinks/Week Comments No 0 (1 standard drink = 0.6 oz pur e alcohol) Sex and Gender Information Value Date Recorded Sex Assigned at Not on file 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 Gender Identity Not on file Sexual Orientation Not on file documented as of this encounter Last Filed Vital Signs Vital Sign Reading Time Taken Comments Blood Pressure 134/80 02/08/2019 12:07 PM CDT Pulse 64 02/08/2019 12:07 PM CDT Temperature - - Respiratory Rate - - Oxygen Saturation 98% 02/08/2019 12:07 PM CDT Inhaled Oxygen Concentration - - Weight 164.2 kg (362 lb) 02/08/2019 12:07 PM CDT Height 188 cm (6' 2 ) 02/08/2019 12:07 PM CDT Body Mass Index 46.48 02/08/2019 12:07 PM CDT documented in this encounter Progress Notes * Norberto Cordero DO - 02/08/2019 11:45 AM CDT Patient Name: Neal Amaro Provider:Norberto Cordero DO : 1940 Date of Service: 02/08/2019 Referring: [facility] CHIEF COMPLAINT: Atrial Fibrillation and Hyperlipidemia Neal presents today for follow-up evaluation. Clinically he is doing fine having no chest pain dyspnea or palpitations. He had an echo today HISTORY OF PRESENT ILLNESS: Mr Neal Amaro [...] unknown by patient. Current Outpatient Medications: ??? atorvastatin (LIPITOR) 20 mg tablet, take [...] a day., Disp: 180 tablet, Rfl: 3 No current facility-administered medications for this visit. Patient is allergic to adhesive tape-silicones. PHYSICAL EXAM: BP 134/80 Pulse 64 Ht 188 cm (6' 2 ) Wt (!) 164.2 kg (362 lb) SpO2 98% BMI 46.48 kg/m?? General: Well appearing, No pain or [...] in sinus rhythm (Primary) Assessment & Plan: He has had no recurrent issues with the atrial fibrillation since last evaluation. His echo today demonstrates an EF of 55%. His left atria appears to be smaller at 4.2 centimeter squared. Otherwise there were no significant abnormalities on echo. Since he is doing well I will continue his current a ntiarrhythmic medication Hyperlipidemia associated with type 2 diabetes mellitus ([facility]) Assessment & Plan: His LDL is at goal Essential hypertension Assessment & Plan: His BP remains at goal documented in this encounter Miscellaneous Notes * Assessment & Plan Note - Norberto Cordero DO - 02/08/2019 2:11 PM CDT Associated Problem(s): Morbid obesity with BMI of 45.0-49.9, adult (HCC) He continues to work with diet and exercise * Assessment & Plan Note - Norberto Cordero DO - 02/08/2019 1:08 PM CDT Associated Problem(s): Hyperlipidemia associated with type 2 diabetes mellitus (HCC) His LDL is at goal * Assessment & Plan Note - Norberto Cordero DO - 02/08/2019 1:05 PM CDT Associated Problem(s): Pure hypercholesterolemia SCRIBED Cholesterol, Total l - h 151 SCRIBED HDL l - h 45 SCRIBED LDL l - h 87 SCRIBED Triglycerides l - h 95 His LDL is at goal on lipitor 20 mg a day * Assessment & Plan Note - Norberto Cordero DO - 02/08/2019 1:05 PM CDT Associated Problem(s): Hypertension His BP remains at goal * Assessment & Plan Note - Norberto Cordero DO - 02/08/2019 1:04 PM CDT Associated Problem(s): Atrial fibrillation, currently in sinus rhythm He has had no recurrent issues with the atrial fibrillation since last evaluation. His echo today demonstrates an EF of 55%. His left atria appears to be smaller at 4.2 centimeter squared. Otherwise there were no significant abnormalities on echo. Since he is doing well I will continue his current a ntiarrhythmic medication documented in this encounter Plan of Treatment Not on file documented as of this encounter Visit Diagnoses Diagnosis Atrial fibrillation, currently in sinus rhythm- Primary Hyperlipidemia associated with type 2 diabetes mellitus (HCC) Essential hypertension Unspecified essential hypertension Morbid obesity with BMI of 45.0-49.9, adult (HCC) documented in this encounter Discontinued Medications Medication Sig Discontinue Reason Start Date End Da te finasteride (PROSCAR) 5 mg tablet Take 5 mg by mouth daily. Therapy completed 02/08/2019 documented as of this encounter Historical Medications * This list may reflect changes made after this encounter. fluticasone furoate-vilantero l (BREO ELLIPTA) 100-25 mcg/dose diskus inhaler Inhale 1 puff daily Rinse mouth with water after use. Do not swallow. 08/15/2020 flecainide (TAMBOCOR) 50 mg tablet Take 50 mg by mouth 2 (two) times a day 03/16/2019 added in this encounter Care Teams Pot Puller Relationship Specialty Start Date End Date Jessica Arroyo MD PCP - General Family Practice 08/11/18 08/04/22 documented as of this encounter
--- OUTSIDE RECORDS SUMMARY | 2024-07-24 00:11 | XMS_ITS | Encounter Summary ---
Author Organization [facility] Address [address] [place] [address] Care Team Providers Care Nurse Paralegal Name Role Phone Christopher Diop MD Primary Care Provider +1- [phone] Reason for Visit * Reason Onset Date Comments monitor results 01/08/2017 Encounter Details Date Type Department Care Team (Late st Contact Info) Description 01/08/2017 Telephone [facility] [place] Cardiology [address] [place] [address] Norberto Cordero DO [address] [facility] [address] [place] [address] monitor results Social History Tobacco Use Types Packs/Day Years Used Date Smoking Tobacco: Former Cigarettes Q uit: 08/03/1979 Alcohol Use Standard Drinks/Week Comments No 0 (1 standard drink = 0.6 oz pur e alcohol) Sex and Gender Information Value Date Recorded Sex Assigned at Not on file 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 Called and would like monitor results. Please advise. Thank you. documented in this encounter Plan of Treatment Not on file documented as of this encounter Visit Diagnoses Not on filedocumented in this encounter Care Teams Nurse Paralegal Relationship Specialty Start Date End Date Christopher Diop MD [address] [place] [address] PCP - General 10/31/16 08/10/18 documented as of this encounter
--- OUTSIDE RECORDS SUMMARY | 2024-07-24 00:12 | XMS_ITS | Encounter Summary ---
Author Organization [facility] Facility Care Team Providers Care Kids Activities Coach Name Role Phone Unavailable Primary Care Provider Unavailabl e Encounter Details Date Type Department Care Team (Latest Contact Info) Description 06/20/2015 3:15 PM SHIPPING CHECKER - 06/29/2015 4:18 PM [facility] Hospital Encounter [facility] Saud Walker MD [address] [place] [address] Infection and inflammatory reaction due to other internal joint prosthesis, initial encounter (HCC); Acute respiratory failure (CMS/HCC); Other pulmonary embolism without acute cor pulmonale (CMS/HCC); Shock (CMS/HCC); Embolism and thrombosis of left femoral vein (CMS/HCC); Acute posthemorrhagic anemia; Acidosis; Pseudarthrosis after fusion or arthrodesis (CMS/HCC); Osteomyelitis of vertebra of lumbar region ([facility]); Collapsed vertebra, not elsewhere classified, lumbar region, initial encounter for fracture ([facility]); Embolism and thrombosis of left popliteal vein (CMS/[facility]); Body mass index (BMI) of 40.0-44.9 in adult (CMS/HCC); Broken internal joint prosthesis, other site, initial encounter (HCC); Discitis of lumbar region; Paroxysmal atrial fibrillation (CMS/HCC); Essential (primary) hypertension; 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); Morbid (severe) obesity due to excess calories (HCC); Hyperlipidemia; Presence of both artificial knee joints; Acquired absence of spleen; Surgical operation with anastomosis, bypass or graft as the cause of abnormal reaction of the patient, or of later complication, without mention of misadventure at the time of the procedure; Hospital as place of occurrence of external cause Social History Tobacco Use Types Packs/Day Years Used Date Smoking Tobacco: Never Assessed Sex and Gender Information Value Date Recorded Sex Assigned at Not on file Legal Sex Male 3:18 AM SHIPPING CHECKER Gender Identity Not on file Sexual Orientation Not on file documented as of this encounter Last Filed Vital Signs Vital Sign Reading Time Taken Comments Blood Pressure 124/45 06/29/2015 11:49 AM SHIPPING CHECKER Pulse 74 06/29/2015 11:49 AM SHIPPING CHECKER Temperature - - Respiratory Rate - - Oxygen Saturation 95% 06/29/2015 11: 49 AM SHIPPING CHECKER Inhaled Oxygen Concentration - - Weight 142.9 kg (314 lb 15.9 oz) 06/20/2015 3:32 PM SHIPPING CHECKER Height 188 cm (6' 2 ) 06/20/2015 3:32 PM SHIPPING CHECKER Body Mass Index 40.44 06/20/2015 3:32 PM SHIPPING CHECKER documented in this encounter Miscellaneous Notes * Op Note - Provider, MD Dee - 06/23/2015 12:00 AM CST Patient: BERNIE CAREY Reg No: [id number] H #: [id number] Admit Dt.: 06/20/2015 : 1940 Pt Type: IN Room No: 18232-36 Attending: Saud Walker M.D. Surgeon: Lisa Thrasher M.D. Dictating: Lisa Thrasher M.D. Service Dt: 06/23/2015 OPERATIVE REPORT FIRST PROCESSING ANALYST: Law Mazariegos M.D. ANESTHESIA: Attended local anesthesia. PREOPERATIVE DIAGNOSIS (ES): 1. Acute deep venous thrombosis in the left common femoral, femoral, left popliteal veins. 2. Recent open treatment of pathologic L2 and L3 vertebral body fractures with spinal fusion from L2 to L3. 3. Inability to anticoagulate. POSTOPERATIVE DIAGNOSIS (ES): 1. Acute deep venous thrombosis in the left common femoral, femoral, left popliteal veins. 2. Recent open treatment of pathologic L2 and L3 vertebral body fractures with spinal fusion from L2 to L3. 3. Inability to anticoagulate. NAME OF OPERATION: Cook Celect inferior vena cava filter placement via a right common femoral vein approach. INDICATIONS FOR PROCEDURE: Mr. Carey is a 74-year-old male who recently underwent spinal fusion. He was postoperatively found to have a left common femoral, femoral vein, and left popliteal vein deep venous thrombosis. He was not felt to be a candidate for anticoagulation, and therefore, inferior vena cava filter placement was recommended. Risks, benefits, and alternatives were discussed with the patient who understood and agreed to proceed. OPERATIVE FINDINGS: The patient had a widely patent inferior vena cava. Following IVC placement, the filter was in good position with no evidence of inferior vena cava injury. DESCRIPTION OF PROCEDURE: Mr. Carey was brought to the Operating Room where he underwent excellent attended local anesthesia. His bilateral groins were prepped and draped in the usual sterile fashion. A pre procedural pause was performed to confirm patient, procedure, and the administration of perioperative antibiotics. Ultrasound was used to evaluate the right common femoral vein (an image was saved). Using the micropuncture kit, access was gained into the right common femoral vein. This was up sized to a 5 Jordanian sheath, and then using a NuvoMed wire, it was up sized to the Cook Celect inferior vena cava filter sheath. This was placed at the distal inferior vena cava, and a venogram was performed with the above-noted findings. I then advanced the sheath over a wire to the infrarenal inferior vena cava and deployed the inferior vena cava filter. Of note, a sheath and catheter were removed before a post procedure venogram, and therefore, I reaccessed the right common femoral vein using ultrasound guidance, replaced the 5 Jordanian sheath, and performed a venogram via the sheath, which showed no evidence of injury to the inferior vena cava with excellent positioning of the filter. I was present for the entire procedure from beginning to end. All wires, sheaths, and catheters were removed from the inferior vena cava, and pressure was held over the right groin for hemostasis. The patient tolerated the procedure well. INTRAOPERATIVE FLUIDS: The patient received 30 cubic centimeters of intravenous contrast dye. FLUOROSCOPY TIME: 1 minute and 58 seconds. SPONGE/INSTRUMENT/NEEDLE COUNTS: Sponge, instrument, and needle counts were correct. CONDITION ON DISCHARGE FROM OPERATING ROOM: The patient was transferred to the Post Anesthesia Care Unit in stable condition. Edited by: Lisa Thrasher MD On 06/26/2015 09:03 PM SHIPPING CHECKER Electronically Authenticated and Edited by: Lisa Thrasher MD On 06/26/2015 09:03 PM SHIPPING CHECKER Lisa Thrasher M.D. NRR:zuleyma #[id number] Editing MT: [email or web address] TD: 06/24/2015 06:59 PM cc: Navid Gill M.D. * Op Note - Provider, MD Dee - 06/21/2015 12:00 AM CST Patient: BERNIE CAREY Reg No: [id number] H #: [id number] Admit Dt.: 06/20/2015 : 1940 Pt Type: IN Room No: [id number] Attending: Saud Walker M.D. Surgeon: Saud Walker M.D. Dictating: Saud Walker M.D. Service Dt: 06/21/2015 OPERATIVE REPORT FIRST PROCESSING ANALYST: Zhane Osman M.D. SECOND/THIRD PROCESSING ANALYST: Letty Ybarra N.P. ANESTHESIA: General endotracheal anesthesia. PREOPERATIVE DIAGNOSIS (ES): 1. Pathologic L2 and L3 vertebral body fractures, likely due to presumed diskitis / osteomyelitis. 2. 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 3. Status post posterior spinal fusion with instrumentation and decompression from L1-L3 performed on January 03, 2014 at an outside facility. 4. Morbid obesity (weight 143 kilograms, height 74 inches, body mass index 40.0). 5. ASA-4. POSTOPERATIVE DIAGNOSIS (ES): 1. Pathologic L2 and L3 vertebral body fractures, likely due to presumed diskitis / osteomyelitis. 2. 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 3. Status post posterior spinal fusion with instrumentation and decompression from L1-L3 performed on January 03, 2014 at an outside facility. 4. Morbid obesity (weight 143 kilograms, height 74 inches, body mass index 40.0). 5. ASA-4. NAME OF OPERATION: 1. Open treatment of pathologic L2 and L3 vertebral body fractures through a combined posterior / inferior approach. 2. Removal of posterior segmental spinal instrumentation from L1 to L3 comprised of the [employer] 5.5-millimeter titanium system. 3. Exploration of posterior spinal fusion with confirmation of pseudarthrosis. 4. Revision posterior spinal fusion from L1 to L4. 5. Revision posterior segmental spinal instrumentation from L1 to L4 utilizing the [employer] Solera 5.5-millimeter cobalt chrome system. 6. Revision laminectomies with partial medial facetectomies and foraminotomies from L1 to L3. 7. Subtotal corpectomy of L2 and L3 performed through a left lateral extracavitary approach. 8. Anterior spinal fusion from L2 to L3 utilizing the left lateral extracavitary approach. 9. Augmentation of anterior spinal fusion with morselized iliac crest bone graft (50 mL) and rhBMP-2 (24 mg on ACS at 1.5 mg / mL graft volume concentration wrapped around 20 mL Mastergraft Matrix). 10. Augmentation of posterior spinal fusion with morselized iliac crest bone graft (20 mL) and rhBMP-2 (12 mg on ACS at 1.5 mg / mL graft volume concentration wrapped around 10 mL Mastergraft Matrix). 11. Application of Shaffer-Wells tongs for temporary intraoperative traction. 12. Spinal cord monitoring consisting of somatosensory evoked potentials and electromyography. INDICATIONS FOR PROCEDURE: The patient is a 74-year-old male who presented with pathologic L2 and L3 vertebral body fractures likely due to diskitis / osteomyelitis affecting L2 and L3. He had previously undergone a posterior spinal fusion with instrumentation and decompression from L1-L3 on January 03, 2014 at an outside facility. He was noted to have failure of instrumentation distally at the L3 level with a presumed pseudarthrosis at L2-L3. He had uncontrollable lower back pain with radiation into the lower extremities. He was transferred from [facility] to [facility] for further management of his symptoms / pathology. Given his unrelenting pain, the patient requested surgical intervention. The potential risks, expected benefits, and alternatives to treatment were discussed with the patient in detail. He gave his informed consent to proceed. He was made well-aware of the fact that the surgery would be a very high-risk operation given the patient's morbid obesity, multiple medical comorbidities, and his ASA status of 4. More specifically, the patient was instructed that I estimated the risk of ninety-day mortality to be at least 10%. I discussed with the patient that the likelihood of intraoperative complications was 100% given the reasons above. OPERATIVE FINDINGS: 1. Pathologic L2 and L3 vertebral body fractures with presumed diskitis / osteomyelitis. 2. Pseudarthrosis at L2-L3 and likely at L1-L2 with failure of instrumentation distally. 3. Neural compression at L2-L3. DESCRIPTION OF PROCEDURE: Prior to the patient being brought back to the operating room, the operative site was identified and marked in the pre-operative holding area. The patient was then brought back to the operating room supine on his hospital stretcher. He was administered a general anesthetic and oral endotracheal intubation was performed by the Anesthesiology Service Team. Additional intravenous access was obtained. Pre-operative intravenous antibiotics consisting of vancomycin and cefepime were administered for infection prophylaxis. Spinal cord monitoring needles were placed. A Kilgore catheter was placed. Shaffer-Wells tongs were applied in the standard fashion for temporary intraoperative traction. The patient was then turned prone onto the [facility] Paco table. All bony prominences were appropriately padded, and the patient's abdomen and axillae were allowed to hang free. As the patient had a very large ventral hernia, this was supported carefully. The patient's head and neck were supported using the Shaffer-Wells tongs and fifteen pounds of temporary intraoperative traction. Once we were satisfied with the patient's position on the operating room table, the patient was secured to the table. Please note that given the patient's morbid obesity, positioning on the operating room table was very difficult. We began the surgery by making a midline incision centered over the spine from L1-L3. The spine was then exposed in a subperiosteal manner out to the tips of the transverse processes. The previous instrumentation from L1-L3 was exposed. We noted that there was a set screw on the right side above the fascia. This was removed. We were careful while exposing the spine in the midline given his previous decompression from L1 to L3. We removed all scar tissue. Deep cultures were obtained. Once the spine was thoroughly exposed, we turned our attention to removal of the instrumentation. This was comprised of the [employer] 5.5-millimeter titanium system. The set screws at L1 bilaterally, at L2 bilaterally, and at L3 on the left were removed. The right-sided set screw was missing and was likely the set screw that was found above the fascia. The rods were then removed bilaterally. The screws were then removed. We removed 6.5 x 45 millimeter multiaxial screws bilaterally at L1, L2, and L3. The L1 screws had reasonable bony purchase. The L2 screws had good bony purchase. The L3 screws had horrible purchase, particularly on the left where the screw was completely loose within the bone / pedicle. Once the instrumentation was removed, the fusion from L1 to L3 was explored. We found that the patient had an obvious pseudarthrosis at L2-L3. He had a likely pseudarthrosis at L1-L2. Once the fusion was explored, we turned our attention to revising the instrumentation. We placed pedicle screws bilaterally at L1, L2, L3, and L4. We used the same starting points at L1, L2, and L3, but directed the screws somewhat more medially to allow placement of longer / bigger screws. The modified freehand technique was used to place the screws at L4. We used the [employer] Solera 5.5-millimeter cobalt chrome system. The following sized screws were inserted: At L1 we inserted a 7.5 x 60 millimeter multiaxial screw on the left and a 7.5 x 55 millimeter multiaxial screw on the right. At L2 we inserted a 7.5 x 60 millimeter multiaxial screws bilaterally. At L3, we inserted 7.5 x 60 millimeter multiaxial screws bilaterally. At L4, we inserted 7.5 x 60 millimeter multiaxial screws bilaterally. Once these screws were placed, we then turned our attention to revising the decompression from L1-L3. We performed a revision laminectomy with partial medial facetectomies and foraminotomies bilaterally from L1 to L3. To that end, the scar tissue overlying the dura was excised. We then enlarged the laminectomy and did partial facetectomies and more thorough foraminotomies at L1-L2 and L2-L3. We paid particular attention to making sure that the L2-L3 level was well-decompressed. Once the revision laminectomy was completed, we then turned our attention to addressing the pathologic fracture of L2 and L3. We performed a subtotal corpectomy of L2 and L3. This was performed through a left lateral extracavitary approach. A left lateral extracavitary approach was developed. The neural elements were protected. We identified the L2-L3 intervertebral disk and incised the disk annulus. Fluid was encountered within the disk space. Cultures were again obtained. A specimen for pathology was obtained as well. This was sent to Pathology as a permanent specimen. We removed approximately one-half of the L2 vertebral body and one-half of the L3 vertebral body through the lateral extracavitary approach. We resected all the bone, endplate, disc remnants, and any granulation and scar tissue. Once this was done, we then turned our attention to obtaining morselized iliac crest bone graft in order to reconstruct the anterior defect. A separate incision over the left posterior iliac crest was made and dissection was carried out down onto the crest. The outer table was exposed. We then harvested approximately 70 mL of iliac crest bone graft from the left posterior iliac crest. We harvested a part of the outer cable and a lot of cancellous bone. Hemostasis was then achieved. The iliac crest bone graft was back-filled with morselized allograft. The wound was then packed and we turned our attention back to the spine. While the neural elements were protected, gentle distraction from L2-L3 was applied. We then packed the anterior defect from L2-L3 using iliac crest bone graft and rhBMP-2 on ACS wrapped around MasterGraft Matrix. Once the anterior fusion from L2-L3 was performed through the left lateral extracavitary approach, we templated and contoured rods for both sides. The rods were inserted inside the screws bilaterally and secured in place using the appropriate set screws. Gentle distraction was applied at L2-L3. The set screws were then sheared off. Fluoroscopy was utilized. We checked the placement of our instrumentation and all instrumentation appeared to be well-placed. We packed additional morselized iliac crest bone graft anteriorly into the anterior defect from L2-L3. A total of 50 mL of morselized iliac crest bone graft and 24 mg rhBMP-2 on ACS at 1.5 mg / mL graft volume concentration wrapped around 20 mL Mastergraft Matrix was utilized. We then decorticated the spine posteriorly from L1-L4 and placed a combination of 20 mL morselized iliac crest bone graft and 12 mg rhBMP-2 on ACS at 1.5 mg / mL graft volume concentration wrapped around 10 mL Mastergraft Matrix over the decorticated spine posteriorly from L1 to L4. We then turned our attention to the closure. Deep drain was placed in both the spine wound. The fascia was then closed in both wounds using #1 Vicryl [id number] sutures. Subcutaneous drain was placed in the spine wound. The subcutaneous tissues were closed using 2-0 Vicryl sutures. The skin was then closed using 3-0 Monocryl. Steri-Strips and sterile dressings were applied. Suction canisters were hooked up to suction drains. The drapes were then removed. The patient was then turned supine onto the hospital bed. He underwent successful reversal of his general anesthesia. He was left intubated and was transferred to the intensive care unit in stable medical condition, having tolerated the procedure well with no apparent complications. Neuro monitoring data remained stable and unchanged throughout the course of the procedure. The patient's neurological examination following completion of the case was not yet known at the time of the dictation. Please note that the pathologic L2 and L3 vertebral body fractures caused by presumed diskitis / osteomyelitis were treated through a combined posterior / anterior approach. This required not only a posterior spinal fusion with instrumentation from L1-L4, but also a subtotal corpectomy of L2 and L3 followed by an anterior spinal fusion from L2-L3 through a left lateral extracavitary approach. ATTESTATION OF PRESENCE: I was scrubbed and present for all critical portions of the procedure including the open treatment of pathologic L2 and L3 fractures, removal of instrumentation, exploration of posterior spinal fusion, revision posterior spinal fusion with instrumentation, decompression, subtotal corpectomy of L2 and L3, anterior spinal fusion, and bone grafting. I was immediately available for all non-critical portions of the procedure. Please note that Dr. Zhane Osman was scrubbed and present for the entire procedure including the exposure, open treatment of pathologic L2 and L3 fractures, removal of posterior segmental spinal instrumentation, exploration of posterior spinal fusion, revision posterior spinal fusion with instrumentation, decompression, subtotal corpectomy of L2 and L3, anterior spinal fusion, bone grafting, and wound closure. He greatly helped to expedite the case, thereby making the procedure safer. In addition, his help was necessary as no qualified Resident-level help was available. SPECIMENS REMOVED: Cultures and specimens from L2-L3. ESTIMATED BLOOD LOSS: 650 mL. INTRAOPERATIVE FLUIDS: Intravenous fluids - 1. 3000 mL of crystalloid. 2. 750 mL of colloid. SPONGE/INSTRUMENT/NEEDLE COUNTS: Correct. CONDITION ON DISCHARGE FROM OPERATING ROOM: Stable. COMPLICATIONS: None. Electronically Authenticated and Edited by: Saud Walker MD On 06/23/2015 07:43 AM SHIPPING CHECKER Saud Walker M.D. ABI:peggy #[id number] Editing MT: [email or web address] TD: 06/22/2015 08:16 AM cc: Saud Walker M.D. documented in this encounter Plan of Treatment Not on file documented as of this encounter Procedures Procedure Name Priority Date/Time Associated Diagnosis Comments BLOOD GLUCOSE, POC Routine 06/29/2015 11 :24 AM SHIPPING CHECKER BLOOD GLUCOSE, POC Routine 06/29/2015 6: 00 AM SHIPPING CHECKER PLASMA COMPREHENSIVE METABOLIC PANEL Routine 06/29/2015 1:47 AM SHIPPING CHECKER BLOOD CELL COUNT (CBC) Routine 5 1:47 AM SHIPPING CHECKER DISCHARGE LABORATORY CUMULATIVE REPORT 06/29/2015 BLOOD GLUCOSE, POC Routine 06/28/2015 9: 12 PM SHIPPING CHECKER BLOOD GLUCOSE, POC Routine 06/28/2015 4: 20 PM SHIPPING CHECKER BLOOD GLUCOSE, POC Routine 06/28/2015 11 :53 AM SHIPPING CHECKER BLOOD GLUCOSE, POC Routine 06/28/2015 6: 29 AM SHIPPING CHECKER SERUM VANCOMYCIN, TROUGH DRUG LEVEL Routine 06/28/2015 2:46 AM SHIPPING CHECKER PLASMA PARTIAL THROMBOPLASTIN TIME (PTT) Routine 06/28/2015 2:46 AM SHIPPING CHECKER PLASMA COMPREHENSIVE METABOLIC PANEL Routine 06/28/2015 2:46 AM SHIPPING CHECKER BLOOD CELL COUNT (CBC) Routine 5 2:46 AM SHIPPING CHECKER BLOOD GLUCOSE, POC Routine 06/27/2015 8: 59 PM SHIPPING CHECKER BLOOD GLUCOSE, POC Routine 06/27/2015 5: 17 PM SHIPPING CHECKER BLOOD GLUCOSE, POC Routine 06/27/2015 11 :33 AM SHIPPING CHECKER BLOOD CELL COUNT Routine 06/27/2015 10:5 1 AM SHIPPING CHECKER BLOOD GLUCOSE, POC Routine 06/27/2015 6: 50 AM SHIPPING CHECKER PLASMA COMPREHENSIVE METABOLIC PANEL Routine 06/27/2015 2:37 AM SHIPPING CHECKER BLOOD CELL COUNT (CBC) Routine 5 2:37 AM SHIPPING CHECKER PLASMA PARTIAL THROMBOPLASTIN TIME (PTT) Routine 06/26/2015 10:54 PM SHIPPING CHECKER BLOOD GLUCOSE, POC Routine 06/26/2015 7: 52 PM SHIPPING CHECKER BLOOD GLUCOSE, POC Routine 06/26/2015 4: 56 PM SHIPPING CHECKER PLASMA PARTIAL THROMBOPLASTIN TIME (PTT) Routine 06/26/2015 4:[address] LUMBAR SPINE WO CONTRAST Routine 06/26/2015 2:07 PM SHIPPING CHECKER BLOOD GLUCOSE, POC Routine 06/26/2015 12 :18 PM SHIPPING CHECKER PLASMA PARTIAL THROMBOPLASTIN TIME (PTT) Routine 06/26/2015 9:13 AM SHIPPING CHECKER BLOOD GLUCOSE, POC Routine 06/26/2015 7: 17 AM SHIPPING CHECKER PLASMA PARTIAL THROMBOPLASTIN TIME (PTT) Routine 06/26/2015 3:34 AM SHIPPING CHECKER PLASMA COMPREHENSIVE METABOLIC PANEL Routine 06/26/2015 3:34 AM SHIPPING CHECKER BLOOD CELL COUNT (CBC) Routine 5 3:34 AM SHIPPING CHECKER BLOOD CELL MORPHOLOGIC EXAM Routine 06/26/2015 3:34 AM SHIPPING CHECKER BLOOD GLUCOSE, POC Routine 06/25/2015 8: 28 PM SHIPPING CHECKER PLASMA PARTIAL THROMBOPLASTIN TIME (PTT) Routine 06/25/2015 5:19 PM SHIPPING CHECKER BLOOD GLUCOSE, POC Routine 06/25/2015 4: 22 PM SHIPPING CHECKER SERUM VANCOMYCIN, TROUGH DRUG LEVEL Routine 06/25/2015 2:35 PM SHIPPING CHECKER BLOOD GLUCOSE, POC Routine 06/25/2015 12 :38 PM SHIPPING CHECKER PLASMA PARTIAL THROMBOPLASTIN TIME (PTT) Routine 06/25/2015 9:12 AM SHIPPING CHECKER BLOOD GLUCOSE, POC Routine 06/25/2015 8: 00 AM SHIPPING CHECKER BLOOD GLUCOSE, POC Routine 06/25/2015 4: 38 AM SHIPPING CHECKER SERUM MAGNESIUM Routine 06/25/2015 1:01 AM SHIPPING CHECKER PLASMA PROTHROMBIN TIME (PT) Routine 06/25/2015 1:01 AM SHIPPING CHECKER PLASMA PHOSPHORUS Routine 06/25/2015 1:0 1 AM SHIPPING CHECKER PLASMA PARTIAL THROMBOPLASTIN TIME (PTT) Routine 06/25/2015 1:01 AM SHIPPING CHECKER PLASMA COMPREHENSIVE METABOLIC PANEL Routine 06/25/2015 1:01 AM SHIPPING CHECKER BLOOD CELL COUNT Routine 06/25/2015 1:01 AM SHIPPING CHECKER BLOOD GLUCOSE, POC Routine 06/25/2015 12 :42 AM SHIPPING CHECKER BLOOD GLUCOSE, POC Routine 06/24/2015 8: 15 PM SHIPPING CHECKER PLASMA PARTIAL THROMBOPLASTIN TIME (PTT) Routine 06/24/2015 5:39 PM SHIPPING CHECKER BLOOD GLUCOSE, POC Routine 06/24/2015 3: 33 PM SHIPPING CHECKER BLOOD GLUCOSE, POC Routine 06/24/2015 11 :35 AM SHIPPING CHECKER MRSA SURVEILLANCE CULTURE, CDR Routine 06/24/2015 11:32 AM SHIPPING CHECKER PLASMA PROTHROMBIN TIME (PT) Routine 06/24/2015 11:32 AM SHIPPING CHECKER PLASMA PARTIAL THROMBOPLASTIN TIME (PTT) Routine 06/24/2015 11:32 AM SHIPPING CHECKER BLOOD CELL COUNT Routine 06/24/2015 11:3 2 AM SHIPPING CHECKER BLOOD GLUCOSE, POC Routine 06/24/2015 7: 09 AM SHIPPING CHECKER BLOOD GLUCOSE, POC Routine 06/24/2015 3: 29 AM SHIPPING CHECKER ELECTROCARDIOGRAPHY (ECG) 06/24/2015 ALL MICROBIOLOGY REPORT SECTION Routine 06/24/2015 12:00 AM SHIPPING CHECKER BLOOD GLUCOSE, POC Routine 06/23/2015 11 :36 PM SHIPPING CHECKER SERUM TROPONIN I Routine 06/23/2015 10:4 2 PM SHIPPING CHECKER SERUM MAGNESIUM Routine 06/23/2015 10:42 PM SHIPPING CHECKER PLASMA PHOSPHORUS Routine 06/23/2015 10: 42 PM SHIPPING CHECKER PLASMA COMPREHENSIVE METABOLIC PANEL Routine 06/23/2015 10:42 PM SHIPPING CHECKER BLOOD CELL COUNT Routine 06/23/2015 10:4 2 PM SHIPPING CHECKER BLOOD ABO, RH, INDIRECT AB SCREEN Routine 06/23/2015 10:42 PM SHIPPING CHECKER BLOOD GLUCOSE, POC Routine 06/23/2015 7: 21 PM SHIPPING CHECKER SERUM TROPONIN I Routine 06/23/2015 5:53 PM SHIPPING CHECKER BLOOD GLUCOSE, POC Routine 06/23/2015 4: [address] CHEST W CONTRAST Routine 06/23/2015 4 :16 PM SHIPPING CHECKER FL FLUOROSCOPY < 1 HOUR Routine 06/23/20 15 1:46 PM SHIPPING CHECKER URINE MICROSCOPY Routine 06/23/2015 12:0 2 PM SHIPPING CHECKER URINALYSIS Routine 06/23/2015 12:02 PM SHIPPING CHECKER BLOOD CULTURE, CDR Routine 06/23/2015 11 :37 AM SHIPPING CHECKER BLOOD CULTURE, CDR Routine 06/23/2015 11 :37 AM SHIPPING CHECKER SERUM MAGNESIUM Routine 06/23/2015 11:37 AM SHIPPING CHECKER PLASMA PHOSPHORUS Routine 06/23/2015 11: 37 AM SHIPPING CHECKER PLASMA BASIC METABOLIC PANEL Routine 06/23/2015 11:37 AM SHIPPING CHECKER BLOOD CELL COUNT Routine 06/23/2015 11:3 7 AM SHIPPING CHECKER BLOOD GLUCOSE, POC Routine 06/23/2015 11 :15 AM SHIPPING CHECKER BLOOD GLUCOSE, POC Routine 06/23/2015 7: 28 AM SHIPPING CHECKER BLOOD GLUCOSE, POC Routine 06/23/2015 4: 12 AM SHIPPING CHECKER SERUM VANCOMYCIN, TROUGH DRUG LEVEL Routine 06/23/2015 4:09 AM SHIPPING CHECKER BLOOD GLUCOSE, POC Routine 06/23/2015 12 :34 AM SHIPPING CHECKER ALL MICROBIOLOGY REPORT SECTION Routine 06/23/2015 12:00 AM SHIPPING CHECKER ALL MICROBIOLOGY REPORT SECTION Routine 06/23/2015 12:00 AM SHIPPING CHECKER SERUM MAGNESIUM Routine 06/22/2015 9:40 PM SHIPPING CHECKER PLASMA PROTHROMBIN TIME (PT) Routine 06/22/2015 9:40 PM SHIPPING CHECKER PLASMA PHOSPHORUS Routine 06/22/2015 9:4 0 PM SHIPPING CHECKER PLASMA PARTIAL THROMBOPLASTIN TIME (PTT) Routine 06/22/2015 9:40 PM SHIPPING CHECKER PLASMA BASIC METABOLIC PANEL Routine 06/22/2015 9:40 PM SHIPPING CHECKER BLOOD CELL COUNT Routine 06/22/2015 9:40 PM SHIPPING CHECKER BLOOD GLUCOSE, POC Routine 06/22/2015 7: 23 PM SHIPPING CHECKER BLOOD GLUCOSE, POC Routine 06/22/2015 3: 33 PM SHIPPING CHECKER BLOOD GLUCOSE, POC Routine 06/22/2015 12 :08 PM SHIPPING CHECKER BLOOD GLUCOSE, POC Routine 06/22/2015 7: 30 AM SHIPPING CHECKER PLASMA PROTHROMBIN TIME (PT) Routine 06/22/2015 6:37 AM SHIPPING CHECKER PLASMA PARTIAL THROMBOPLASTIN TIME (PTT) Routine 06/22/2015 6:37 AM SHIPPING CHECKER PLASMA COMPREHENSIVE METABOLIC PANEL Routine 06/22/2015 6:37 AM SHIPPING CHECKER BLOOD CELL COUNT (CBC) Routine 5 6:37 AM SHIPPING CHECKER BLOOD GLUCOSE, POC Routine 06/22/2015 4: 56 AM SHIPPING CHECKER BLOOD GLUCOSE, POC Routine 06/22/2015 12 :05 AM SHIPPING CHECKER VASCULAR LABORATORY REPORT 06/22/2015 ELECTROCARDIOGRAPHY (ECG) 06/22/2015 ABDOMINAL RADIOGRAPHY, FRONTAL (AP) Routine 06/21/2015 11:00 PM SHIPPING CHECKER XR CHEST 1 VIEW Routine 06/21/2015 11:00 PM SHIPPING CHECKER SERUM MAGNESIUM Routine 06/21/2015 9:19 PM SHIPPING CHECKER PLASMA PROTHROMBIN TIME (PT) Routine 06/21/2015 9:19 PM SHIPPING CHECKER PLASMA PARTIAL THROMBOPLASTIN TIME (PTT) Routine 06/21/2015 9:19 PM SHIPPING CHECKER PLASMA COMPREHENSIVE METABOLIC PANEL Routine 06/21/2015 9:19 PM SHIPPING CHECKER BLOOD POTASSIUM, MIXED VENOUS Routine 06/21/2015 9:19 PM SHIPPING CHECKER BLOOD LACTIC ACID Routine 06/21/2015 9:1 9 PM SHIPPING CHECKER BLOOD CELL COUNT (CBC) Routine 5 9:19 PM SHIPPING CHECKER BLOOD GAS, ARTERIAL Routine 06/21/2015 9 :19 PM SHIPPING CHECKER FL FLUOROSCOPY < 1 HOUR Routine 06/21/20 15 7:02 PM SHIPPING CHECKER BLOOD GAS, POINT OF CARE, ARTERIAL Routine 06/21/2015 6:20 PM SHIPPING CHECKER FUNGAL CULTURE, CDR Routine 06/21/2015 5 :10 PM SHIPPING CHECKER AEROBIC/ANAEROBIC CULTURE AND GRAM STAIN, CDR Routine 06/21/2015 5:10 PM SHIPPING CHECKER FUNGAL CULTURE, CDR Routine 06/21/2015 4 :36 PM SHIPPING CHECKER AEROBIC CULTURE AND GRAM STAIN, CDR Routine 06/21/2015 4:36 PM SHIPPING CHECKER BLOOD GAS, POINT OF CARE, ARTERIAL Routine 06/21/2015 4:11 PM SHIPPING CHECKER FUNGAL CULTURE, CDR Routine 06/21/2015 4 :00 PM SHIPPING CHECKER AEROBIC CULTURE AND GRAM STAIN, CDR Routine 06/21/2015 4:00 PM SHIPPING CHECKER FUNGAL CULTURE, CDR Routine 06/21/2015 3 :45 PM SHIPPING CHECKER AEROBIC/ANAEROBIC CULTURE AND GRAM STAIN, CDR Routine 06/21/2015 3:45 PM SHIPPING CHECKER BLOOD GLUCOSE, POC Routine 06/21/2015 12 :24 PM SHIPPING CHECKER BLOOD GLUCOSE, POC Routine 06/21/2015 6: 42 AM SHIPPING CHECKER PLASMA PROTHROMBIN TIME (PT) Routine 06/21/2015 12:34 AM SHIPPING CHECKER PLASMA COMPREHENSIVE METABOLIC PANEL Routine 06/21/2015 12:34 AM SHIPPING CHECKER BLOOD CELL COUNT (CBC) Routine 5 12:34 AM SHIPPING CHECKER ALL MICROBIOLOGY REPORT SECTION Routine 06/21/2015 12:00 AM SHIPPING CHECKER ALL MICROBIOLOGY REPORT SECTION Routine 06/21/2015 12:00 AM SHIPPING CHECKER ALL MICROBIOLOGY REPORT SECTION Routine 06/21/2015 12:00 AM SHIPPING CHECKER ALL MICROBIOLOGY REPORT SECTION Routine 06/21/2015 12:00 AM SHIPPING CHECKER ALL MICROBIOLOGY REPORT SECTION Routine 06/21/2015 12:00 AM SHIPPING CHECKER ALL MICROBIOLOGY REPORT SECTION Routine 06/21/2015 12:00 AM SHIPPING CHECKER ALL MICROBIOLOGY REPORT SECTION Routine 06/21/2015 12:00 AM SHIPPING CHECKER ALL MICROBIOLOGY REPORT SECTION Routine 06/21/2015 12:00 AM SHIPPING CHECKER SURGICAL PATHOLOGY 06/21/2015 BLOOD GLUCOSE, POC Routine 06/20/2015 9: 00 PM SHIPPING CHECKER CHEST RADIOGRAPHY, FRONTAL (AP), LATERAL Routine 06/20/2015 5:36 PM SHIPPING CHECKER XR SPINE LUMBAR 2 OR 3 VIEWS Routine 06/20/2015 5:36 PM SHIPPING CHECKER PLASMA PROTHROMBIN TIME (PT) Routine 06/20/2015 5:15 PM SHIPPING CHECKER PLASMA PARTIAL THROMBOPLASTIN TIME (PTT) Routine 06/20/2015 5:15 PM SHIPPING CHECKER BLOOD CELL COUNT (CBC) Routine 5 5:15 PM SHIPPING CHECKER BLOOD GLUCOSE, POC Routine 06/20/2015 5: 09 PM SHIPPING CHECKER PLASMA COMPREHENSIVE METABOLIC PANEL Routine 06/20/2015 4:13 PM SHIPPING CHECKER BLOOD ABO, RH, INDIRECT AB SCREEN Routine 06/20/2015 4:13 PM SHIPPING CHECKER ELECTROCARDIOGRAPHY (ECG) 06/20/2015 documented in this encounter Results * Blood glucose, POC (06/29/2015 11:24 AM SHIPPING CHECKER) Glucose, POC, bld 196 70 - 199 mg/dl HISTORICAL RESULTS Blood specimen (specimen) 06/29/2015 11:24 AM SHIPPING CHECKER Saud Walker MD LAB BLOOD ORDERABLES F inal Result Performing Organization Address [facility] Co de Phone Number HISTORICAL RESULTS * Blood glucose, POC (06/29/2015 6:00 AM SHIPPING CHECKER) Glucose, POC, bld 107 70 - 199 mg/dl HISTORICAL RESULTS Blood specimen (specimen) 06/29/2015 6:00 AM SHIPPING CHECKER Saud Walker MD LAB BLOOD ORDERABLES F inal Result HISTORICAL RESULTS * (ABNORMAL) Plasma comprehensive metabolic panel (06/29/2015 1:47 AM SHIPPING CHECKER) Pathologist [facility] Sodium 140 135 - 145 mmol/L HISTORICAL RESULTS K, pl 3.4 3.3 - 4.9 mmol/L HISTORICAL RESULTS Chloride 105 97 - 110 mmol/L HISTORICAL RESULTS CO2 26 22 - 32 mmol/L HISTORICAL RESULTS A. gap 9 0 - 16 mmol/L HISTORICAL RESULTS Glucose 130 70 - 199 mg/dl HISTORICAL RESULTS BUN 11 8 - 25 mg/dl HISTORICAL RESULTS Creatinine 1.03 0.70 - 1.30 mg/dl HISTORICAL RESULTS Calcium 8.6 8.6 - 10.3 mg/dl HISTORICAL RESULTS Protein, pl 5.1(L) 6.5 - 8.5 g/dl HISTORICAL RESULTS Alb 2.2(L) 3.6 - 5.0 g/dl HISTORICAL RESULTS Bilirubin 0.2(L) 0.3 - 1.1 mg/dl HISTORICAL RESULTS Alk phos 77 38 - 126 Units/L HISTORICAL RESULTS AST 41 11 - 47 Units/L HISTORICAL RESULTS ALT 91(H) 7 - 53 Units/L HISTORICAL RESULTS Plasma 06/29/2015 1:47 AM SHIPPING CHECKER us Historical Provider LAB BLOOD ORDERABLES Ruth l Result HISTORICAL RESULTS * (ABNORMAL) Blood cell count (CBC) (06/29/2015 1:47 AM SHIPPING CHECKER) [facility] WBC 10.8(H) 3.8 - 9.8 K/cumm HISTORICAL RESULTS RBC 3.35(L) 4.50 - 5.70 M/cumm HISTORICAL RESULTS Hgb 9.1(L) 13.8 - 17.2 g/dl HISTORICAL RESULTS Hct 29.2(L) 40.7 - 50.3 % HISTORICAL RESULTS MCV 87.0 80.0 - 97.6 fl HISTORICAL RESULTS MCH 27.1 26.7 - 33.7 pg HISTORICAL RESULTS MCHC 31.1(L) 32.7 - 35.5 g/dl HISTORICAL RESULTS Rdw 14.9(H) 11.8 - 14.6 % HISTORICAL RESULTS Platelets 405 140 - 440 K/cumm HISTORICAL RESULTS MPV 8.0 6.8 - 10.4 fl HISTORICAL RESULTS Neutrophils 71.7 38.7 - 74.5 % HISTORICAL RESULTS Lymphocytes 11.8(L) 20.0 - 54.3 % HISTORICAL RESULTS Monos 12.3 4.3 - 13.5 % HISTORICAL RESULTS Eosinophils 4.1 0.0 - 6.0 % HISTORICAL RESULTS Basophils 0.1 0.0 - 3.0 % HISTORICAL RESULTS Neutrophils, abs 7.8(H) 1.8 - 6.6 K/cumm HISTORICAL RESULTS Lymphocytes, abs 1.3 1.2 - 3.3 K/cumm HISTORICAL RESULTS Monocytes, absolute 1.3(H) 0.2 - 1.2 K/cumm HISTORICAL RESULTS Eosinophils, abs 0.4 0.0 - 0.5 K/cumm HISTORICAL RESULTS Basophils, abs 0.0 0.0 - 0.2 K/cumm HISTORICAL RESULTS Blood specimen (specimen) 06/29/2015 1:47 AM SHIPPING CHECKER Result [facility] Historical Provider LAB BLOOD ORDERABLES Ruth l Result Performing Organization Address [facility] Co de Phone Number HISTORICAL RESULTS * DISCHARGE LABORATORY CUMULATIVE REPORT (06/29/2015) Narrative 06/29/2015 Ordered by an unspecified provider. Result [facility] Historical Provider LAB BLOOD ORDERABLES Ruth l Result * Blood glucose, POC (06/28/2015 9:12 PM SHIPPING CHECKER) Glucose, POC, bld 142 70 - 199 mg/dl HISTORICAL RESULTS Blood specimen (specimen) 06/28/2015 9:12 PM SHIPPING CHECKER Result [facility] Saud Walker MD LAB BLOOD ORDERABLES F inal Result Performing Organization Address City/[facility] Co de Phone Number HISTORICAL RESULTS * Blood glucose, POC (06/28/2015 4:20 PM SHIPPING CHECKER) Glucose, POC, bld 183 70 - 199 mg/dl HISTORICAL RESULTS Blood specimen (specimen) 06/28/2015 4:20 PM SHIPPING CHECKER Result [facility] Saud Walker MD LAB BLOOD ORDERABLES F inal Result Performing Organization Address City/[facility] Co de Phone Number HISTORICAL RESULTS * Blood glucose, POC (06/28/2015 11:53 AM SHIPPING CHECKER) Glucose, POC, bld 174 70 - 199 mg/dl HISTORICAL RESULTS Blood specimen (specimen) 06/28/2015 11:53 AM SHIPPING CHECKER Saud Walker MD LAB BLOOD ORDERABLES F inal Result Performing Organization Address [facility] de Phone Number HISTORICAL RESULTS * Blood glucose, POC (06/28/2015 6:29 AM SHIPPING CHECKER) Glucose, POC, bld 150 70 - 199 mg/dl HISTORICAL RESULTS Blood specimen (specimen) 06/28/2015 6:29 AM SHIPPING CHECKER Saud Walker MD LAB BLOOD ORDERABLES F inal Result Performing Organization Address [facility] de Phone Number HISTORICAL RESULTS * (ABNORMAL) Plasma partial thromboplastin time (PTT) (06/28/2015 2:46 AM SHIPPING CHECKER) APTT 62.7(H) 25.0 - 37.0 seconds HISTORICAL RESULTS Comment: Interpretive Data Therapeutic heparin range:60.0 - 94.0 sec based on correlation with therapeutic heparin activity range of 0.3 -0.7 Units/mL. Current interpretive data was last revised on 2011. Plasma 06/28/2015 2:46 AM SHIPPING CHECKER Jay Jay Ricci MD LAB BLOOD ORDERABLES Fi nal Result Performing Organization Address [facility] de Phone Number HISTORICAL RESULTS * Serum vancomycin, trough drug level (06/28/2015 2:46 AM SHIPPING CHECKER) Vancomycin, trough 19.0 10.0 - 20.9 mcg/ml HISTORICAL RESULTS Comment: Interpretive Data Therapeutic Range: ?? Uncomplicated skin and soft tissue infections: 10-20 mcg/mL ?? All other infections: ??15-20 mcg/mL Current interpretive data was last revised on 12. Serum 06/28/2015 2:46 AM SHIPPING CHECKER Historical Provider LAB BLOOD ORDERABLES Ruth nba Result Performing Organization Address City/State/[facility] Co de Phone Number HISTORICAL RESULTS * (ABNORMAL) Plasma comprehensive metabolic panel (06/28/2015 2:46 AM SHIPPING CHECKER) Sodium 138 135 - 145 mmol/L HISTORICAL RESULTS K, pl 3.4 3.3 - 4.9 mmol/L HISTORICAL RESULTS Chloride 105 97 - 110 mmol/L HISTORICAL RESULTS CO2 26 22 - 32 mmol/L HISTORICAL RESULTS A. gap 7 0 - 16 mmol/L HISTORICAL RESULTS Glucose 125 70 - 199 mg/dl HISTORICAL RESULTS BUN 11 8 - 25 mg/dl HISTORICAL RESULTS Creatinine 0.92 0.70 - 1.30 mg/dl HISTORICAL RESULTS Calcium 8.2(L) 8.6 - 10.3 mg/dl HISTORICAL RESULTS Protein, pl 4.9(L) 6.5 - 8.5 g/dl HISTORICAL RESULTS Alb 2.0(L) 3.6 - 5.0 g/dl HISTORICAL RESULTS Bilirubin 0.2(L) 0.3 - 1.1 mg/dl HISTORICAL RESULTS Alk phos 68 38 - 126 Units/L HISTORICAL RESULTS AST 58(H) 11 - 47 Units/L HISTORICAL RESULTS ALT 103(H) 7 - 53 Units/L HISTORICAL RESULTS Plasma 06/28/2015 2:46 AM SHIPPING CHECKER Historical Provider LAB BLOOD ORDERABLES Ruth nba Result Performing Organization Address City/State/[facility] Co de Phone Number HISTORICAL RESULTS * (ABNORMAL) Blood cell count (CBC) (06/28/2015 2:46 AM SHIPPING CHECKER) WBC 12.0(H) 3.8 - 9.8 K/cumm HISTORICAL RESULTS RBC 3.29(L) 4.50 - 5.70 M/cumm HISTORICAL RESULTS Hgb 9.2(L) 13.8 - 17.2 g/dl HISTORICAL RESULTS Hct 28.5(L) 40.7 - 50.3 % HISTORICAL RESULTS MCV 86.6 80.0 - 97.6 fl HISTORICAL RESULTS MCH 27.8 26.7 - 33.7 pg HISTORICAL RESULTS MCHC 32.1(L) 32.7 - 35.5 g/dl HISTORICAL RESULTS Rdw 14.9(H) 11.8 - 14.6 % HISTORICAL RESULTS Platelets 410 140 - 440 K/cumm HISTORICAL RESULTS MPV 8.4 6.8 - 10.4 fl HISTORICAL RESULTS Neutrophils 67.1 38.7 - 74.5 % HISTORICAL RESULTS Lymphocytes 16.2(L) 20.0 - 54.3 % HISTORICAL RESULTS Monos 11.5 4.3 - 13.5 % HISTORICAL RESULTS Eosinophils 4.7 0.0 - 6.0 % HISTORICAL RESULTS Basophils 0.5 0.0 - 3.0 % HISTORICAL RESULTS Neutrophils, abs 8.1(H) 1.8 - 6.6 K/cumm HISTORICAL RESULTS Lymphocytes, abs 1.9 1.2 - 3.3 K/cumm HISTORICAL RESULTS Monocytes, absolute 1.4(H) 0.2 - 1.2 K/cumm HISTORICAL RESULTS Eosinophils, abs 0.6(H) 0.0 - 0.5 K/cumm HISTORICAL RESULTS Basophils, abs 0.1 0.0 - 0.2 K/cumm HISTORICAL RESULTS Blood specimen (specimen) 06/28/2015 2:46 AM SHIPPING CHECKER Dee Barros MD LAB BLOOD ORDERABLES Ruth l Result HISTORICAL RESULTS * Blood glucose, POC (06/27/2015 8:59 PM SHIPPING CHECKER) Glucose, POC, bld 173 70 - 199 mg/dl HISTORICAL RESULTS Blood specimen (specimen) 06/27/2015 8:59 PM SHIPPING CHECKER Saud Walker MD LAB BLOOD ORDERABLES F inal Result HISTORICAL RESULTS * Blood glucose, POC (06/27/2015 5:17 PM SHIPPING CHECKER) Glucose, POC, bld 151 70 - 199 mg/dl HISTORICAL RESULTS Blood specimen (specimen) 06/27/2015 5:17 PM SHIPPING CHECKER Saud Walker MD LAB BLOOD ORDERABLES F inal Result Performing Organization Address City/[facility]/ZIP Co de Phone Number HISTORICAL RESULTS * Blood glucose, POC (06/27/2015 11:33 AM SHIPPING CHECKER) Pathologist [facility] Glucose, POC, bld 180 70 - 199 mg/dl HISTORICAL RESULTS Blood specimen (specimen) 06/27/2015 11:33 AM SHIPPING CHECKER Saud Walker MD LAB BLOOD ORDERABLES F inal Result Performing Organization Address [facility] Co de Phone Number HISTORICAL RESULTS * (ABNORMAL) Blood cell count [CBC] express (06/27/2015 10:51 AM SHIPPING CHECKER) [facility] WBC 12.0(H) 3.8 - 9.8 K/cumm HISTORICAL RESULTS RBC 3.45(L) 4.50 - 5.70 M/cumm HISTORICAL RESULTS Hgb 9.8(L) 13.8 - 17.2 g/dl HISTORICAL RESULTS Hct 30.2(L) 40.7 - 50.3 % HISTORICAL RESULTS MCV 87.6 80.0 - 97.6 fl HISTORICAL RESULTS MCH 28.4 26.7 - 33.7 pg HISTORICAL RESULTS MCHC 32.4(L) 32.7 - 35.5 g/dl HISTORICAL RESULTS Rdw 14.9(H) 11.8 - 14.6 % HISTORICAL RESULTS Platelets 354 140 - 440 K/cumm HISTORICAL RESULTS MPV 8.8 6.8 - 10.4 fl HISTORICAL RESULTS Blood specimen (specimen) 06/27/2015 10:51 AM SHIPPING CHECKER us Debby Ovalles LAB BLOOD ORDERABLES Final Resul t Performing Organization Address City/[facility]/ZIP Co de Phone Number HISTORICAL RESULTS * Blood glucose, POC (06/27/2015 6:50 AM SHIPPING CHECKER) Pathologist [facility] Glucose, POC, bld 169 70 - 199 mg/dl HISTORICAL RESULTS Blood specimen (specimen) 06/27/2015 6:50 AM SHIPPING CHECKER Saud Walker MD LAB BLOOD ORDERABLES F inal Result Performing Organization Address [facility] Co de Phone Number HISTORICAL RESULTS * (ABNORMAL) Plasma comprehensive metabolic panel (06/27/2015 2:37 AM SHIPPING CHECKER) Pathologist [facility] Sodium 140 135 - 145 mmol/L HISTORICAL RESULTS K, pl 3.5 3.3 - 4.9 mmol/L HISTORICAL RESULTS Chloride 108 97 - 110 mmol/L HISTORICAL RESULTS CO2 25 22 - 32 mmol/L HISTORICAL RESULTS A. gap 7 0 - 16 mmol/L HISTORICAL RESULTS Glucose 150 70 - 199 mg/dl HISTORICAL RESULTS BUN 9 8 - 25 mg/dl HISTORICAL RESULTS Creatinine 0.88 0.70 - 1.30 mg/dl HISTORICAL RESULTS Calcium 8.2(L) 8.6 - 10.3 mg/dl HISTORICAL RESULTS Protein, pl 4.8(L) 6.5 - 8.5 g/dl HISTORICAL RESULTS Alb 2.0(L) 3.6 - 5.0 g/dl HISTORICAL RESULTS Bilirubin 0.2(L) 0.3 - 1.1 mg/dl HISTORICAL RESULTS Alk phos 61 38 - 126 Units/L HISTORICAL RESULTS AST 83(H) 11 - 47 Units/L HISTORICAL RESULTS ALT 108(H) 7 - 53 Units/L HISTORICAL RESULTS Plasma 06/27/2015 2:37 AM SHIPPING CHECKER Historical Provider LAB BLOOD ORDERABLES Ruth l Result Performing Organization Address [facility] de Phone Number HISTORICAL RESULTS * (ABNORMAL) Blood cell count (CBC) (06/27/2015 2:37 AM SHIPPING CHECKER) Pathologist [facility] WBC 11.1(H) 3.8 - 9.8 K/cumm HISTORICAL RESULTS RBC 3.17(L) 4.50 - 5.70 M/cumm HISTORICAL RESULTS Hgb 9.0(L) 13.8 - 17.2 g/dl HISTORICAL RESULTS Hct 27.7(L) 40.7 - 50.3 % HISTORICAL RESULTS MCV 87.5 80.0 - 97.6 fl HISTORICAL RESULTS MCH 28.4 26.7 - 33.7 pg HISTORICAL RESULTS MCHC 32.5(L) 32.7 - 35.5 g/dl HISTORICAL RESULTS Rdw 14.9(H) 11.8 - 14.6 % HISTORICAL RESULTS Platelets 319 140 - 440 K/cumm HISTORICAL RESULTS MPV 8.6 6.8 - 10.4 fl HISTORICAL RESULTS Neutrophils 70.2 38.7 - 74.5 % HISTORICAL RESULTS Lymphocytes 15.5(L) 20.0 - 54.3 % HISTORICAL RESULTS Monos 10.1 4.3 - 13.5 % HISTORICAL RESULTS Eosinophils 3.7 0.0 - 6.0 % HISTORICAL RESULTS Basophils 0.5 0.0 - 3.0 % HISTORICAL RESULTS Neutrophils, abs 7.8(H) 1.8 - 6.6 K/cumm HISTORICAL RESULTS Lymphocytes, abs 1.7 1.2 - 3.3 K/cumm HISTORICAL RESULTS Monocytes, absolute 1.1 0.2 - 1.2 K/cumm HISTORICAL RESULTS Eosinophils, abs 0.4 0.0 - 0.5 K/cumm HISTORICAL RESULTS Basophils, abs 0.1 0.0 - 0.2 K/cumm HISTORICAL RESULTS Blood specimen (specimen) 06/27/2015 2:37 AM SHIPPING CHECKER Historical Provider LAB BLOOD ORDERABLES Ruth arango Result HISTORICAL RESULTS * (ABNORMAL) Plasma partial thromboplastin time (PTT) (06/26/2015 10:54 PM SHIPPING CHECKER) APTT 77.3(H) 25.0 - 37.0 seconds HISTORICAL RESULTS Comment: Interpretive Data Therapeutic heparin range:60.0 - 94.0 sec based on correlation with therapeutic heparin activity range of 0.3 -0.7 Units/mL. Current interpretive data was last revised on 2011. Plasma 06/26/2015 10:5 4 PM SHIPPING CHECKER Debby Ovalles LAB BLOOD ORDERABLES Final Resul t HISTORICAL RESULTS * (ABNORMAL) Blood glucose, POC (06/26/2015 7:52 PM SHIPPING CHECKER) Glucose, POC, bld 231(H) 70 - 199 mg/dl HISTORICAL RESULTS Blood specimen (specimen) 06/26/2015 7:52 PM SHIPPING CHECKER Saud Walker MD LAB BLOOD ORDERABLES F inal Result Performing Organization Address [facility] de Phone Number HISTORICAL RESULTS * (ABNORMAL) Blood glucose, POC (06/26/2015 4:56 PM SHIPPING CHECKER) Glucose, POC, bld 209(H) 70 - 199 mg/dl HISTORICAL RESULTS Blood specimen (specimen) 06/26/2015 4:56 PM SHIPPING CHECKER Saud Walker MD LAB BLOOD ORDERABLES F inal Result Performing Organization Address [facility] de Phone Number HISTORICAL RESULTS * (ABNORMAL) Plasma partial thromboplastin time (PTT) (06/26/2015 4:23 PM SHIPPING CHECKER) APTT 81.4(H) 25.0 - 37.0 seconds HISTORICAL RESULTS Comment: Interpretive Data Therapeutic heparin range:60.0 - 94.0 sec based on correlation with therapeutic heparin activity range of 0.3 -0.7 Units/mL. Current interpretive data was last revised on 2011. Plasma 06/26/2015 4:23 PM SHIPPING CHECKER Debby Ovalles LAB BLOOD ORDERABLES Final Resul t Performing Organization Address [facility] de Phone Number HISTORICAL RESULTS * CT Lumbar Spine WO Contrast (06/26/2015 2:07 PM SHIPPING CHECKER) Anatomical Region Laterality Modality Spine N/A Computed Tomogra phy 06/26/2015 2:07 PM SHIPPING CHECKER Narrative 06/27/2015 11:25 AM SHIPPING CHECKER RANI DELGADO M.D. DEMAR ORTEGA M.D. FINAL REPORT The radiology attending physician has personally reviewed this study, and has reviewed and/or edited this written report and agrees with it. ACC# ??Date Time ??Exam [id number] Jun 26, 2015 14:07:[id number] Lumbar Spine w/o con EXAMINATION: ?? CT of the lumbar spine without contrast HISTORY: 74-year-old male status with pathologic L2 and L3 vertebral body fractures likely due to present of discitis/osteomyelitis status post revision of posterior instrumented fusion of L1-L4. TECHNIQUE: CT of the lumbar spine was performed according to standard protocol without intravenous contrast. COMPARISON: Lumbar spine MRI dated 06/17/2015 FINDINGS: The study is markedly limited due to patient's body habitus, osteopenia, and streak artifact from posterior spinal instrumentation. There are postsurgical changes of revision L1-L4 instrumented posterior spinal fusion with bilateral pedicle screws at each level. The fusion hardware appears intact. There appears to be osseous fusion across the L1-L2 disc space. There is disc centered destruction around the L2-L3 disc space, unchanged from prior. There is gas within the left paraspinal region and anterior to L1-L3, likely secondary to recent surgical intervention. The alignment of the lumbar spine is normal. There are atherosclerotic calcifications of the abdominal aorta. An inferior vena cava filter is present. There is multilevel degenerative disc disease, the evaluation of which is limited due to streak artifact and body habitus. A left posterior iliac bone graft donor site is noted. IMPRESSION: ?? 1. Interval postsurgical changes of revision L1-L4 instrument posterior spinal fusion, the evaluation of which is limited due to streak artifact, body habitus, and osteopenia. 2. 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 Requested By: PEMA PALOMARES Dictated By: ?? DEMAR ORTEGA M.D. ??on Jun 26 2015 ??4:19P This document has been electronically signed by: RANI DELGADO M.D. on Jun 27 2015 11:25A [id number] Procedure Note Provider, MD Dee - 11/28/2016 RANI DELGADO M.D. DEMAR ORTEGA M.D. FINAL REPORT The radiology attending physician has personally reviewed this study, and has reviewed and/or edited this written report and agrees with it. ACC# Date Time Exam [id number] Jun 26, 2015 14:07:[id number] Lumbar Spine w/o con EXAMINATION: CT of the lumbar spine without contrast HISTORY: 74-year-old male status with pathologic L2 and L3 vertebral body fractures likely due to present of discitis/osteomyelitis status post revision of posterior instrumented fusion of L1-L4. TECHNIQUE: CT of the lumbar spine was performed according to standard protocol without intravenous contrast. COMPARISON: Lumbar spine MRI dated 06/17/2015 FINDINGS: The study is markedly limited due to patient's body habitus, osteopenia, and streak artifact from posterior spinal instrumentation. There are postsurgical changes of revision L1-L4 instrumented posterior spinal fusion with bilateral pedicle screws at each level. The fusion hardware appears intact. There appears to be osseous fusion across the L1-L2 disc space. There is disc centered destruction around the L2-L3 disc space, unchanged from prior. There is gas within the left paraspinal region and anterior to L1-L3, likely secondary to recent surgical intervention. The alignment of the lumbar spine is normal. There are atherosclerotic calcifications of the abdominal aorta. An inferior vena cava filter is present. There is multilevel degenerative disc disease, the evaluation of which is limited due to streak artifact and body habitus. A left posterior iliac bone graft donor site is noted. IMPRESSION: 1. Interval postsurgical changes of revision L1-L4 instrument posterior spinal fusion, the evaluation of which is limited due to streak artifact, body habitus, and osteopenia. 2. 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 Requested By: PEMA PALOMARES Dictated By: DEMAR ORTEGA M.D. on Jun 26 2015 4:19P This document has been electronically signed by: RANI DELGADO M.D. on Jun 27 2015 11:25A [id number] us Historical Provider IMTamiko CT PROCEDURES Final R esult * (ABNORMAL) Blood glucose, POC (06/26/2015 12:18 PM SHIPPING CHECKER) Glucose, POC, bld 250(H) 70 - 199 mg/dl HISTORICAL RESULTS Blood specimen (specimen) 06/26/2015 12:18 PM SHIPPING CHECKER Saud Walker MD LAB BLOOD ORDERABLES F inal Result HISTORICAL RESULTS * (ABNORMAL) Plasma partial thromboplastin time (PTT) (06/26/2015 9:13 AM SHIPPING CHECKER) APTT 56.8(H) 25.0 - 37.0 seconds HISTORICAL RESULTS Comment: Interpretive Data Therapeutic heparin range:60.0 - 94.0 sec based on correlation with therapeutic heparin activity range of 0.3 -0.7 Units/mL. Current interpretive data was last revised on 2011. Plasma 06/26/2015 9:13 AM SHIPPING CHECKER us Debby Ovalles LAB BLOOD ORDERABLES Final Resul t HISTORICAL RESULTS * (ABNORMAL) Blood glucose, POC (06/26/2015 7:17 AM SHIPPING CHECKER) Glucose, POC, bld 202(H) 70 - 199 mg/dl HISTORICAL RESULTS Blood specimen (specimen) 06/26/2015 7:17 AM SHIPPING CHECKER us Saud Walker MD LAB BLOOD ORDERABLES F inal Result Performing Organization Address City/[facility]/ZIP Co de Phone Number HISTORICAL RESULTS * (ABNORMAL) Plasma partial thromboplastin time (PTT) (06/26/2015 3:34 AM SHIPPING CHECKER) APTT 79.6(H) 25.0 - 37.0 seconds HISTORICAL RESULTS Comment: Interpretive Data Therapeutic heparin range:60.0 - 94.0 sec based on correlation with therapeutic heparin activity range of 0.3 -0.7 Units/mL. Current interpretive data was last revised on 2011. Plasma 06/26/2015 3:34 AM SHIPPING CHECKER us Debby Ovalles LAB BLOOD ORDERABLES Final Resul t HISTORICAL RESULTS * (ABNORMAL) Plasma comprehensive metabolic panel (06/26/2015 3:34 AM SHIPPING CHECKER) Sodium 139 135 - 145 mmol/L HISTORICAL RESULTS K, pl 3.5 3.3 - 4.9 mmol/L HISTORICAL RESULTS Chloride 108 97 - 110 mmol/L HISTORICAL RESULTS CO2 25 22 - 32 mmol/L HISTORICAL RESULTS A. gap 6 0 - 16 mmol/L HISTORICAL RESULTS Glucose 174 70 - 199 mg/dl HISTORICAL RESULTS BUN 11 8 - 25 mg/dl HISTORICAL RESULTS Creatinine 0.91 0.70 - 1.30 mg/dl HISTORICAL RESULTS Calcium 8.0(L) 8.6 - 10.3 mg/dl HISTORICAL RESULTS Protein, pl 4.9(L) 6.5 - 8.5 g/dl HISTORICAL RESULTS Alb 2.0(L) 3.6 - 5.0 g/dl HISTORICAL RESULTS Bilirubin 0.2(L) 0.3 - 1.1 mg/dl HISTORICAL RESULTS Alk phos 59 38 - 126 Units/L HISTORICAL RESULTS AST 55(H) 11 - 47 Units/L HISTORICAL RESULTS ALT 68(H) 7 - 53 Units/L HISTORICAL RESULTS Plasma 06/26/2015 3:34 AM SHIPPING CHECKER us Historical Provider LAB BLOOD ORDERABLES Ruth l Result HISTORICAL RESULTS * (ABNORMAL) Blood cell count (CBC) (06/26/2015 3:34 AM SHIPPING CHECKER) RBC 3.24(L) 4.50 - 5.70 M/cumm HISTORICAL RESULTS Hgb 9.2(L) 13.8 - 17.2 g/dl HISTORICAL RESULTS Hct 28.3(L) 40.7 - 50.3 % HISTORICAL RESULTS MCV 87.2 80.0 - 97.6 fl HISTORICAL RESULTS MCH 28.4 26.7 - 33.7 pg HISTORICAL RESULTS MCHC 32.5(L) 32.7 - 35.5 g/dl HISTORICAL RESULTS Rdw 14.8(H) 11.8 - 14.6 % HISTORICAL RESULTS Platelets 271 140 - 440 K/cumm HISTORICAL RESULTS MPV 8.1 6.8 - 10.4 fl HISTORICAL RESULTS WBC 11.6(H) 3.8 - 9.8 K/cumm HISTORICAL RESULTS Neutrophils 74.2 38.7 - 74.5 % HISTORICAL RESULTS Lymphocytes 11.3(L) 20.0 - 54.3 % HISTORICAL RESULTS Monos 11.3 4.3 - 13.5 % HISTORICAL RESULTS Eosinophils 2.7 0.0 - 6.0 % HISTORICAL RESULTS Basophils 0.5 0.0 - 3.0 % HISTORICAL RESULTS Neutrophils, abs 8.6(H) 1.8 - 6.6 K/cumm HISTORICAL RESULTS Lymphocytes, abs 1.3 1.2 - 3.3 K/cumm HISTORICAL RESULTS Monocytes, absolute 1.3(H) 0.2 - 1.2 K/cumm HISTORICAL RESULTS Eosinophils, abs 0.3 0.0 - 0.5 K/cumm HISTORICAL RESULTS Basophils, abs 0.1 0.0 - 0.2 K/cumm HISTORICAL RESULTS Blood specimen (specimen) 06/26/2015 3:34 AM SHIPPING CHECKER Historical Provider LAB BLOOD ORDERABLES Ruth l Result Performing Organization Address [facility] de Phone Number HISTORICAL RESULTS * Blood cell morphologic exam (06/26/2015 3:34 AM SHIPPING CHECKER) Morphology scrn Original results obtained required verification by alternate method(s). Refer to CBC and/or observation sections for detailed results HISTORICAL RESULTS Blood specimen (specimen) 06/26/2015 3:34 AM SHIPPING CHECKER Historical Provider LAB BLOOD ORDERABLES Ruth l Result Performing Organization Address [facility] de Phone Number HISTORICAL RESULTS * (ABNORMAL) Blood glucose, POC (06/25/2015 8:28 PM SHIPPING CHECKER) Glucose, POC, bld 287(H) 70 - 199 mg/dl HISTORICAL RESULTS Blood specimen (specimen) 06/25/2015 8:28 PM SHIPPING CHECKER Saud Walker MD LAB BLOOD ORDERABLES F inal Result Performing Organization Address [facility] Co de Phone Number HISTORICAL RESULTS * (ABNORMAL) Plasma partial thromboplastin time (PTT) (06/25/2015 5:19 PM SHIPPING CHECKER) APTT 47.2(H) 25.0 - 37.0 seconds HISTORICAL RESULTS Comment: Interpretive Data Therapeutic heparin range:60.0 - 94.0 sec based on correlation with therapeutic heparin activity range of 0.3 -0.7 Units/mL. Current interpretive data was last revised on 2011. Plasma 06/25/2015 5:19 PM SHIPPING CHECKER Debby Ovalles LAB BLOOD ORDERABLES Final Resul t Performing Organization Address [facility] Phone Number HISTORICAL RESULTS * Blood glucose, POC (06/25/2015 4:22 PM SHIPPING CHECKER) Glucose, POC, bld 186 70 - 199 mg/dl HISTORICAL RESULTS Blood specimen (specimen) 06/25/2015 4:22 PM SHIPPING CHECKER Saud Walker MD LAB BLOOD ORDERABLES F inal Result Performing Organization Address [facility] Phone Number HISTORICAL RESULTS * Serum vancomycin, trough drug level (06/25/2015 2:35 PM SHIPPING CHECKER) Vancomycin, trough 18.8 10.0 - 20.9 mcg/ml HISTORICAL RESULTS Comment: Interpretive Data Therapeutic Range: ?? Uncomplicated skin and soft tissue infections: 10-20 mcg/mL ?? All other infections: ??15-20 mcg/mL Current interpretive data was last revised on 12. Serum 06/25/2015 2:35 PM SHIPPING CHECKER Dee Barros MD LAB BLOOD ORDERABLES Ruth l Result Performing Organization Address [facility] de Phone Number HISTORICAL RESULTS * (ABNORMAL) Blood glucose, POC (06/25/2015 12:38 PM SHIPPING CHECKER) Glucose, POC, bld 288(H) 70 - 199 mg/dl HISTORICAL RESULTS Blood specimen (specimen) 06/25/2015 12:38 PM SHIPPING CHECKER Saud Walker MD LAB BLOOD ORDERABLES F inal Result Performing Organization Address [facility] de Phone Number HISTORICAL RESULTS * Plasma partial thromboplastin time (PTT) (06/25/2015 9:12 AM SHIPPING CHECKER) Pathologist [facility] APTT 29.5 25.0 - 37.0 seconds HISTORICAL RESULTS Comment: Interpretive Data Therapeutic heparin range:60.0 - 94.0 sec based on correlation with therapeutic heparin activity range of 0.3 -0.7 Units/mL. Current interpretive data was last revised on 2011. Plasma 06/25/2015 9:12 AM SHIPPING CHECKER Debby Ovalles LAB BLOOD ORDERABLES Final Resul t Performing Organization Address [facility] Co de Phone Number HISTORICAL RESULTS * Blood glucose, POC (06/25/2015 8:00 AM SHIPPING CHECKER) [facility] Glucose, POC, bld 173 70 - 199 mg/dl HISTORICAL RESULTS Blood specimen (specimen) 06/25/2015 8:00 AM SHIPPING CHECKER Saud Walker MD LAB BLOOD ORDERABLES F inal Result Performing Organization Address [facility] Co de Phone Number HISTORICAL RESULTS * Blood glucose, POC (06/25/2015 4:38 AM SHIPPING CHECKER) [facility] Glucose, POC, bld 195 70 - 199 mg/dl HISTORICAL RESULTS Blood specimen (specimen) 06/25/2015 4:38 AM SHIPPING CHECKER Saud Walker MD LAB BLOOD ORDERABLES F inal Result Performing Organization Address [facility] Co de Phone Number HISTORICAL RESULTS * (ABNORMAL) Plasma comprehensive metabolic panel (06/25/2015 1:01 AM SHIPPING CHECKER) Pathologist [facility] Sodium 137 135 - 145 mmol/L HISTORICAL RESULTS K, pl 3.7 3.3 - 4.9 mmol/L HISTORICAL RESULTS Chloride 107 97 - 110 mmol/L HISTORICAL RESULTS CO2 20(L) 22 - 32 mmol/L HISTORICAL RESULTS A. gap 10 0 - 16 mmol/L HISTORICAL RESULTS Glucose 210(H) 70 - 199 mg/dl HISTORICAL RESULTS BUN 12 8 - 25 mg/dl HISTORICAL RESULTS Creatinine 1.16 0.70 - 1.30 mg/dl HISTORICAL RESULTS Calcium 8.6 8.6 - 10.3 mg/dl HISTORICAL RESULTS Protein, pl 5.2(L) 6.5 - 8.5 g/dl HISTORICAL RESULTS Alb 2.2(L) 3.6 - 5.0 g/dl HISTORICAL RESULTS Bilirubin 0.3 0.3 - 1.1 mg/dl HISTORICAL RESULTS Alk phos 61 38 - 126 Units/L HISTORICAL RESULTS AST 49(H) 11 - 47 Units/L HISTORICAL RESULTS ALT 51 7 - 53 Units/L HISTORICAL RESULTS Plasma 06/25/2015 1:01 AM SHIPPING CHECKER Debby Ovalles LAB BLOOD ORDERABLES Final Resul t Performing Organization Address [facility] Phone Number HISTORICAL RESULTS * Plasma partial thromboplastin time (PTT) (06/25/2015 1:01 AM SHIPPING CHECKER) APTT 34.0 25.0 - 37.0 seconds HISTORICAL RESULTS Comment: Interpretive Data Therapeutic heparin range:60.0 - 94.0 sec based on correlation with therapeutic heparin activity range of 0.3 -0.7 Units/mL. Current interpretive data was last revised on 2011. Plasma 06/25/2015 1:01 AM SHIPPING CHECKER Debby Ovalles LAB BLOOD ORDERABLES Final Resul t Performing Organization Address [facility] de Phone Number HISTORICAL RESULTS * Plasma phosphorus (06/25/2015 1:01 AM SHIPPING CHECKER) Phosphorus, pl 2.9 2.3 - 4.3 mg/dl HISTORICAL RESULTS Plasma 06/25/2015 1:01 AM SHIPPING CHECKER Debby Ovalles LAB BLOOD ORDERABLES Final Resul t Performing Organization Address [facility] Co de Phone Number HISTORICAL RESULTS * (ABNORMAL) Plasma prothrombin time (PT) (06/25/2015 1:01 AM SHIPPING CHECKER) Prothrombin time (PT) 13.9(H) 9.2 - 13.0 seconds HISTORICAL RESULTS INR 1.28(H) 0.90 - 1.20 HISTORIC AL RESULTS Comment: Interpretive Data Inpatient therapeutic ranges* Atrial fibrillation ?2.0-3.0 INR Venous thrombo-embolism ?2.0-3.0 INR Bioprosthetic heart valve ?* Mechanical heart valve, bileaflet or tilting disk,aortic position ? 2.0-3.0 INR All other,or bileaflet or tilting disk, in mitral position ? 2.5-3.5 INR *See the pharmacy resource directory (PHRED) for an updated copy of the Tool Book at [email or web address] Current Interpretive Data was last revised 2011. Plasma 06/25/2015 1:01 AM SHIPPING CHECKER Debby Ovalles LAB BLOOD ORDERABLES Final Resul t Performing Organization Address [facility] de Phone Number HISTORICAL RESULTS * Serum magnesium (06/25/2015 1:01 AM SHIPPING CHECKER) Pathologist [facility] Magnesium 1.7 1.4 - 2.5 mg/dl HISTORICAL RESULTS Serum 06/25/2015 1:01 AM SHIPPING CHECKER Debby Ovalles LAB BLOOD ORDERABLES Final Resul t Performing Organization Address [facility] de Phone Number HISTORICAL RESULTS * (ABNORMAL) Blood cell count [CBC] express (06/25/2015 1:01 AM SHIPPING CHECKER) WBC 14.6(H) 3.8 - 9.8 K/cumm HISTORICAL RESULTS RBC 3.55(L) 4.50 - 5.70 M/cumm HISTORICAL RESULTS Hgb 10.0(L) 13.8 - 17.2 g/dl HISTORICAL RESULTS Hct 30.7(L) 40.7 - 50.3 % HISTORICAL RESULTS MCV 86.6 80.0 - 97.6 fl HISTORICAL RESULTS MCH 28.3 26.7 - 33.7 pg HISTORICAL RESULTS MCHC 32.7 32.7 - 35.5 g/dl HISTORICAL RESULTS Rdw 14.8(H) 11.8 - 14.6 % HISTORICAL RESULTS Platelets 238 140 - 440 K/cumm HISTORICAL RESULTS MPV 8.5 6.8 - 10.4 fl HISTORICAL RESULTS Blood specimen (specimen) 06/25/2015 1:01 AM SHIPPING CHECKER Debby Ovalles LAB BLOOD ORDERABLES Final Resul t Performing Organization Address [facility] de Phone Number HISTORICAL RESULTS * Blood glucose, POC (06/25/2015 12:42 AM SHIPPING CHECKER) Glucose, POC, bld 186 70 - 199 mg/dl HISTORICAL RESULTS Blood specimen (specimen) 06/25/2015 12:42 AM SHIPPING CHECKER Saud Walker MD LAB BLOOD ORDERABLES F inal Result Performing Organization Address [facility] de Phone Number HISTORICAL RESULTS * Blood glucose, POC (06/24/2015 8:15 PM SHIPPING CHECKER) Glucose, POC, bld 146 70 - 199 mg/dl HISTORICAL RESULTS Blood specimen (specimen) 06/24/2015 8:15 PM SHIPPING CHECKER Saud Walker MD LAB BLOOD ORDERABLES F inal Result Performing Organization Address [facility] Co de Phone Number HISTORICAL RESULTS * (ABNORMAL) Plasma partial thromboplastin time (PTT) (06/24/2015 5:39 PM SHIPPING CHECKER) APTT 22.5(L) 25.0 - 37.0 seconds HISTORICAL RESULTS Comment: Interpretive Data Therapeutic heparin range:60.0 - 94.0 sec based on correlation with therapeutic heparin activity range of 0.3 -0.7 Units/mL. Current interpretive data was last revised on 2011. Plasma 06/24/2015 5:39 PM SHIPPING CHECKER Debby Ovalles LAB BLOOD ORDERABLES Final Resul t Performing Organization Address [facility] Phone Number HISTORICAL RESULTS * Blood glucose, POC (06/24/2015 3:33 PM SHIPPING CHECKER) Glucose, POC, bld 195 70 - 199 mg/dl HISTORICAL RESULTS Blood specimen (specimen) 06/24/2015 3:33 PM SHIPPING CHECKER Saud Walker MD LAB BLOOD ORDERABLES F inal Result Performing Organization Address [facility] Number HISTORICAL RESULTS * (ABNORMAL) Blood glucose, POC (06/24/2015 11:35 AM SHIPPING CHECKER) Glucose, POC, bld 208(H) 70 - 199 mg/dl HISTORICAL RESULTS Blood specimen (specimen) 06/24/2015 11:35 AM SHIPPING CHECKER Saud Walker MD LAB BLOOD ORDERABLES F inal Result Performing Organization Address [facility] Number HISTORICAL RESULTS * (ABNORMAL) Plasma partial thromboplastin time (PTT) (06/24/2015 11:32 AM SHIPPING CHECKER) APTT 16.6(L) 25.0 - 37.0 seconds HISTORICAL RESULTS Comment: {No clot detected in sample.} Interpretive Data Therapeutic heparin range:60.0 - 94.0 sec based on correlation with therapeutic heparin activity range of 0.3 -0.7 Units/mL. Current interpretive data was last revised on 2011. Plasma 06/24/2015 11:3 2 AM SHIPPING CHECKER Debby Ovalles LAB BLOOD ORDERABLES Final Resul t Performing Organization Address [facility] Phone Number HISTORICAL RESULTS * (ABNORMAL) Plasma prothrombin time (PT) (06/24/2015 11:32 AM SHIPPING CHECKER) Prothrombin time (PT) 13.2(H) 9.2 - 13.0 seconds HISTORICAL RESULTS INR 1.22(H) 0.90 - 1.20 HISTORIC AL RESULTS Comment: Interpretive Data Inpatient therapeutic ranges* Atrial fibrillation ?2.0-3.0 INR Venous thrombo-embolism ?2.0-3.0 INR Bioprosthetic heart valve ?* Mechanical heart valve, bileaflet or tilting disk,aortic position ? 2.0-3.0 INR All other,or bileaflet or tilting disk, in mitral position ? 2.5-3.5 INR *See the pharmacy resource directory (PHRED) for an updated copy of the Tool Book at [email or web address]/pharmacy.nsf Current Interpretive Data was last revised 2011. Plasma 06/24/2015 11:3 2 AM SHIPPING CHECKER us Debby Ovalles LAB BLOOD ORDERABLES Final Resul t HISTORICAL RESULTS * (ABNORMAL) Blood cell count [CBC] express (06/24/2015 11:32 AM SHIPPING CHECKER) WBC 12.6(H) 3.8 - 9.8 K/cumm HISTORICAL RESULTS RBC 3.55(L) 4.50 - 5.70 M/cumm HISTORICAL RESULTS Hgb 10.1(L) 13.8 - 17.2 g/dl HISTORICAL RESULTS Hct 31.2(L) 40.7 - 50.3 % HISTORICAL RESULTS MCV 87.8 80.0 - 97.6 fl HISTORICAL RESULTS MCH 28.4 26.7 - 33.7 pg HISTORICAL RESULTS MCHC 32.4(L) 32.7 - 35.5 g/dl HISTORICAL RESULTS Rdw 14.6 11.8 - 14.6 % HISTORICAL RESULTS Platelets 217 140 - 440 K/cumm HISTORICAL RESULTS MPV 7.7 6.8 - 10.4 fl HISTORICAL RESULTS Blood specimen (specimen) 06/24/2015 11:32 AM SHIPPING CHECKER Debby Ovalles LAB BLOOD ORDERABLES Final Resul t Performing Organization Address [facility] de Phone Number HISTORICAL RESULTS * Methicillin-resistant Staphylococcus aureus (MRSA) surveillance culture (06/24/2015 11:32 AM SHIPPING CHECKER) Nasal (Unknown) 06/24/2015 1 1:32 AM SHIPPING CHECKER 06/24/2015 1:46 PM SHIPPING CHECKER Impressions HISTORICAL RESULTS - 06/26/2015 7:06 AM SHIPPING CHECKER This test is for Infection Prevention surveillance; no charge to the patient. Narrative HISTORICAL RESULTS - 06/26/2015 7:06 AM SHIPPING CHECKER Negative us Historical Provider MD LAB MICROBIOLOGY - GENERA L ORDERABLES Final Result Performing Organization Address [facility] de Phone Number HISTORICAL RESULTS * Blood glucose, POC (06/24/2015 7:09 AM SHIPPING CHECKER) Glucose, POC, bld 185 70 - 199 mg/dl HISTORICAL RESULTS Blood specimen (specimen) 06/24/2015 7:09 AM SHIPPING CHECKER Saud Walker MD LAB BLOOD ORDERABLES F inal Result Performing Organization Address [facility] de Phone Number HISTORICAL RESULTS * Blood glucose, POC (06/24/2015 3:29 AM SHIPPING CHECKER) Glucose, POC, bld 157 70 - 199 mg/dl HISTORICAL RESULTS Blood specimen (specimen) 06/24/2015 3:29 AM SHIPPING CHECKER Saud Walker MD LAB BLOOD ORDERABLES F inal Result Performing Organization Address [facility] de Phone Number HISTORICAL RESULTS * All Microbiology Report Section (06/24/2015 12:00 AM SHIPPING CHECKER) 06/24/2015 Narrative HISTORICAL RESULTS - 07/19/2015 1:41 PM SHIPPING CHECKER ? [facility] ?[address] [facility] [address] ?[place], [place] [address] ? Patient Name: ??AURELIO BERNIE Diaz ? Med Rec Number: [id number] ? Fin Number: ?[id number] ? Date: ?1940 ? Sex/Age: ? Male 74 years ? Admit Date: ?06/20/2015 ? Discharge Date: 06/29/2015 ? Doctor: ?Saud Walker ? Facility: ?[facility] ? Location: ?OTHER ?* Abnormal ??A Alert ??f Footnote ??^ Corrected ??L Low ??H High ?i Interp Data ??@ Ref Lab ? Chart Type:Cumulative ?* * * * MICROBIOLOGY - MISCELLANEOUS * * * * ?PROCEDURE: MRSA Surveillance Culture ? SOURCE: Nasal ? COLLECTED: 06/24/15 ??1132 ?BODY SITE: ? STARTED: 06/24/15 ??1346 ? FREE TEXT SOURCE: ? FINAL REPORT ? REPORTED: 06/26/15 0706 ? Negative ?* * * ??Interpretive Results ??* * * ? (1)This test is for Infection Prevention surveillance; no charge to ? the patient. ? us Historical Provider LAB MICROBIOLOGY - GENERA L ORDERABLES Final Result HISTORICAL RESULTS * ELECTROCARDIOGRAPHY (ECG) (06/24/2015) Narrative 06/24/2015 Ordered by an unspecified provider. us Historical Provider ECG ORDERABLES Final Res ult * (ABNORMAL) Blood glucose, POC (06/23/2015 11:36 PM SHIPPING CHECKER) Glucose, POC, bld 232(H) 70 - 199 mg/dl HISTORICAL RESULTS Gluc, com 1, bld RN Notified HISTORICAL RESULTS Blood specimen (specimen) 06/23/2015 11:36 PM SHIPPING CHECKER Saud Walker MD LAB BLOOD ORDERABLES F inal Result Performing Organization Address [facility]/State/ZIP Co de Phone Number HISTORICAL RESULTS * Blood ABO, Rh, indirect ab screen (06/23/2015 10:42 PM SHIPPING CHECKER) Pathologist [facility] Sanju, indirect Negative HISTORICAL RESULTS ABO, Rho(D) A Positive HISTORI CAMILA RESULTS Blood specimen (specimen) 06/23/2015 10:42 PM SHIPPING CHECKER Rani Jo NP LAB BLOOD ORDERABLES Final Res ult Performing Organization Address [facility] Co de Phone Number HISTORICAL RESULTS * (ABNORMAL) Plasma comprehensive metabolic panel (06/23/2015 10:42 PM SHIPPING CHECKER) Pathologist [facility] Sodium 138 135 - 145 mmol/L HISTORICAL RESULTS K, pl 4.0 3.3 - 4.9 mmol/L HISTORICAL RESULTS Chloride 110 97 - 110 mmol/L HISTORICAL RESULTS CO2 22 22 - 32 mmol/L HISTORICAL RESULTS A. gap 6 0 - 16 mmol/L HISTORICAL RESULTS Glucose 197 70 - 199 mg/dl HISTORICAL RESULTS BUN 13 8 - 25 mg/dl HISTORICAL RESULTS Creatinine 1.00 0.70 - 1.30 mg/dl HISTORICAL RESULTS Calcium 8.2(L) 8.6 - 10.3 mg/dl HISTORICAL RESULTS Protein, pl 5.2(L) 6.5 - 8.5 g/dl HISTORICAL RESULTS Alb 2.4(L) 3.6 - 5.0 g/dl HISTORICAL RESULTS Bilirubin 0.2(L) 0.3 - 1.1 mg/dl HISTORICAL RESULTS Alk phos 54 38 - 126 Units/L HISTORICAL RESULTS AST 49(H) 11 - 47 Units/L HISTORICAL RESULTS ALT 38 7 - 53 Units/L HISTORICAL RESULTS Plasma 06/23/2015 10:4 2 PM SHIPPING CHECKER us Debby Ovalles LAB BLOOD ORDERABLES Final Resul t Performing Organization Address [facility] de Phone Number HISTORICAL RESULTS * (ABNORMAL) Serum troponin I (06/23/2015 10:42 PM SHIPPING CHECKER) Troponin I 0.04(H) 0.00 - 0.03 ng/ml HISTORICAL RESULTS Comment: Interpretive Data Serial determinations are recommended for the diagnosis of myocardial infarction (Third [place] Definition of Myocardial Infarction. ??J Am Omid Cardiol 2012;60:1581-98). Current interpretive data was last revised on 13. Serum 06/23/2015 10:4 2 PM SHIPPING CHECKER Debby Ovalles LAB BLOOD ORDERABLES Final Resul t Performing Organization Address [facility] Phone Number HISTORICAL RESULTS * (ABNORMAL) Plasma phosphorus (06/23/2015 10:42 PM SHIPPING CHECKER) Phosphorus, pl 2.2(L) 2.3 - 4.3 mg/dl HISTORICAL RESULTS Plasma 06/23/2015 10:4 2 PM SHIPPING CHECKER Debby Ovalles LAB BLOOD ORDERABLES Final Resul t Performing Organization Address [facility] Phone Number HISTORICAL RESULTS * Serum magnesium (06/23/2015 10:42 PM SHIPPING CHECKER) Magnesium 1.8 1.4 - 2.5 mg/dl HISTORICAL RESULTS Serum 06/23/2015 10:4 2 PM SHIPPING CHECKER Debby Ovalles LAB BLOOD ORDERABLES Final Resul t Performing Organization Address [facility] de Phone Number HISTORICAL RESULTS * (ABNORMAL) Blood cell count [CBC] express (06/23/2015 10:42 PM SHIPPING CHECKER) WBC 13.4(H) 3.8 - 9.8 K/cumm HISTORICAL RESULTS RBC 3.45(L) 4.50 - 5.70 M/cumm HISTORICAL RESULTS Hgb 9.9(L) 13.8 - 17.2 g/dl HISTORICAL RESULTS Hct 30.6(L) 40.7 - 50.3 % HISTORICAL RESULTS MCV 88.6 80.0 - 97.6 fl HISTORICAL RESULTS MCH 28.8 26.7 - 33.7 pg HISTORICAL RESULTS MCHC 32.5(L) 32.7 - 35.5 g/dl HISTORICAL RESULTS Rdw 15.1(H) 11.8 - 14.6 % HISTORICAL RESULTS Platelets 203 140 - 440 K/cumm HISTORICAL RESULTS MPV 7.5 6.8 - 10.4 fl HISTORICAL RESULTS Blood specimen (specimen) 06/23/2015 10:42 PM SHIPPING CHECKER us Debby Ovalles LAB BLOOD ORDERABLES Final Resul t HISTORICAL RESULTS * (ABNORMAL) Blood glucose, POC (06/23/2015 7:21 PM SHIPPING CHECKER) Glucose, POC, bld 200(H) 70 - 199 mg/dl HISTORICAL RESULTS Blood specimen (specimen) 06/23/2015 7:21 PM SHIPPING CHECKER us Saud Walker MD LAB BLOOD ORDERABLES F inal Result Performing Organization Address [facility] Co de Phone Number HISTORICAL RESULTS * (ABNORMAL) Serum troponin I (06/23/2015 5:53 PM SHIPPING CHECKER) Troponin I 0.05(H) 0.00 - 0.03 ng/ml HISTORICAL RESULTS Comment: Interpretive Data Serial determinations are recommended for the diagnosis of myocardial infarction (Third [place] Definition of Myocardial Infarction. ??J Am Omid Cardiol 2012;60:1581-98). Current interpretive data was last revised on 13. Serum 06/23/2015 5:53 PM SHIPPING CHECKER us Ivonne Peguero Luisito DO LAB BLOOD ORDERABLES Fi nal Result HISTORICAL RESULTS * Blood glucose, POC (06/23/2015 4:46 PM SHIPPING CHECKER) Glucose, POC, bld 178 70 - 199 mg/dl HISTORICAL RESULTS Blood specimen (specimen) 06/23/2015 4:46 PM SHIPPING CHECKER Saud Walker MD LAB BLOOD ORDERABLES F inal Result HISTORICAL RESULTS * CT Chest W Contrast (06/23/2015 4:16 PM SHIPPING CHECKER) Anatomical Region Laterality Modality Body N/A Computed Tomogra phy 06/23/2015 4:16 PM SHIPPING CHECKER Narrative 06/24/2015 8:12 PM SHIPPING CHECKER COREY ENNIS M.D. POOJA EDGAR M.D. FINAL REPORT The radiology attending physician has personally reviewed this study, and has reviewed and/or edited this written report and agrees with it. 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 TECHNIQUE: ??Computed tomography images of the chest performed after the uneventful administration of 97 mL Optiray-350 intravenous contrast per pulmonary embolism protocol. FINDINGS: ??Comparison made to 06/18/2015. Acute pulmonary embolism noted within the posterior basilar and lateral segmental arteries of the right lower lobe. There is an additional embolus within the medial segmental artery of the right middle lobe. There is likely an acute thrombus within the subsegmental branch of the left posterior basilar segmental artery. The heart is normal in size without pericardial effusion. There is no findings to suggest right heart strain. Coronary atherosclerotic disease noted. The caliber and orientation of the thoracic aorta and great vessels are normal. There is diffuse atherosclerosis in the thoracic aorta. Right internal jugular and left internal jugular central venous catheters are noted with tips in the superior vena cava. Small bilateral pleural effusions with associated passive atelectasis noted. Otherwise, no focal consolidation to suggest pneumonia. No pneumothorax. The spleen is surgically absent. Otherwise, included images of the upper abdomen are unremarkable. Multiple old rib fractures noted. Otherwise, bone windows are unremarkable. IMPRESSION: ?? Acute pulmonary emboli as described above without findings to suggest right heart strain. Findings communicated to Dr. Gunn by Dr. Edgar at 5:10 p.m. on 06/23/2015. Requested By: ZAHIRA GUNN M.D. Dictated By: ?? POOJA EDGAR M.D. ??on Jun 23 2015 ??5:11P This document has been electronically signed by: COREY ENNIS M.D. on Jun 24 2015 ??8:12P [id number] Procedure Note Provider, MD Dee - 11/28/2016 Navid MENENDEZ M.D. FINAL REPORT The radiology attending physician has personally reviewed this study, and has reviewed and/or edited this written report and agrees with it. 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 TECHNIQUE: Computed tomography images of the chest performed after the uneventful administration of 97 mL Optiray-350 intravenous contrast per pulmonary embolism protocol. FINDINGS: Comparison made to 06/18/2015. Acute pulmonary embolism noted within the posterior basilar and lateral segmental arteries of the right lower lobe. There is an additional embolus within the medial segmental artery of the right middle lobe. There is likely an acute thrombus within the subsegmental branch of the left posterior basilar segmental artery. The heart is normal in size without pericardial effusion. There is no findings to suggest right heart strain. Coronary atherosclerotic disease noted. The caliber and orientation of the thoracic aorta and great vessels are normal. There is diffuse atherosclerosis in the thoracic aorta. Right internal jugular and left internal jugular central venous catheters are noted with tips in the superior vena cava. Small bilateral pleural effusions with associated passive atelectasis noted. Otherwise, no focal consolidation to suggest pneumonia. No pneumothorax. The spleen is surgically absent. Otherwise, included images of the upper abdomen are unremarkable. Multiple old rib fractures noted. Otherwise, bone windows are unremarkable. IMPRESSION: Acute pulmonary emboli as described above without findings to suggest right heart strain. Findings communicated to Dr. Gunn by Dr. Edgar at 5:10 p.m. on 06/23/2015. Requested By: ZAHIRA GUNN M.D. Dictated By: POOJA EDGAR M.D. on Jun 23 2015 5:11P This document has been electronically signed by: COREY ENNIS M.D. on Jun 24 2015 8:12P [id number] Historical Provider MD YO CT PROCEDURES Final R esult * Fluoroscopy < 1 Hour (06/23/2015 1:46 PM SHIPPING CHECKER) Anatomical Region Laterality Modality Body N/A Radiographic Ary ging 06/23/2015 1:46 PM SHIPPING CHECKER Historical Provider MD YO FLUOROSCOPY PROCEDURE S Final Result * (ABNORMAL) Urinalysis (06/23/2015 12:02 PM SHIPPING CHECKER) Color, ur Haily Yellow HISTORICAL RESULTS Clarity, ur Clear Clear HISTORIC AL RESULTS Specific gravity, ur 1.041(H) 1.003 - 1.030 HISTORICAL RESULTS pH, ur 5.0 5.0 - 8.0 HISTORICAL RESULTS Protein, ur 2+(A) Trace HISTORIC AL RESULTS Glucose, ur Negative Negative HISTORIC AL RESULTS Ketones, ur Trace(A) Negative HISTORIC AL RESULTS Bilirubin, ur Negative Negative HISTOR ICAL RESULTS U Blood 2+(A) Negative HISTORICAL RESULTS Urobilinogen, quant, ur <2.0 0.0 - 2.0 mg/dl HISTORICAL RESULTS Nitrites, ur Negative Negative HISTORI CAMILA RESULTS Leukocyte esterase, ur Negative Negative HISTORICAL RESULTS Urine 06/23/2015 12:0 2 PM SHIPPING CHECKER Loco Danielle LAB BLOOD ORDERABLES Final R esult HISTORICAL RESULTS * (ABNORMAL) Urine microscopy (06/23/2015 12:02 PM SHIPPING CHECKER) RBC, ur >50(H) 0 - 3 /hpf HISTORICA L RESULTS WBC, ur 0 0 - 5 /hpf HISTORICA L RESULTS Bacteria, ur Trace Trace HISTORI CAMILA RESULTS Epithelial cells, renal, ur 0 0 - 0 /hpf HISTORICAL RESULTS Mucus, ur Small /hpf HISTORICAL RESULTS Hyaline casts >2(H) 0 - 0 /lpf HISTO RICAL RESULTS Urine 06/23/2015 12:0 2 PM SHIPPING CHECKER Loco Danielle LAB BLOOD ORDERABLES Final R esult Performing Organization Address City/[facility]/ZIP Co de Phone Number HISTORICAL RESULTS * (ABNORMAL) Plasma basic metabolic panel (06/23/2015 11:37 AM SHIPPING CHECKER) Sodium 145 135 - 145 mmol/L HISTORICAL RESULTS K, pl 4.2 3.3 - 4.9 mmol/L HISTORICAL RESULTS Chloride 114(H) 97 - 110 mmol/L HISTORICAL RESULTS CO2 24 22 - 32 mmol/L HISTORICAL RESULTS A. gap 7 0 - 16 mmol/L HISTORICAL RESULTS Glucose 183 70 - 199 mg/dl HISTORICAL RESULTS BUN 18 8 - 25 mg/dl HISTORICAL RESULTS Creatinine 1.21 0.70 - 1.30 mg/dl HISTORICAL RESULTS Calcium 8.3(L) 8.6 - 10.3 mg/dl HISTORICAL RESULTS Plasma 06/23/2015 11:3 7 AM SHIPPING CHECKER Debby Ovalles LAB BLOOD ORDERABLES Final Resul t Performing Organization Address [facility] de Phone Number HISTORICAL RESULTS * Plasma phosphorus (06/23/2015 11:37 AM SHIPPING CHECKER) Phosphorus, pl 2.6 2.3 - 4.3 mg/dl HISTORICAL RESULTS Plasma 06/23/2015 11:3 7 AM SHIPPING CHECKER Debby Ovalles LAB BLOOD ORDERABLES Final Resul t Performing Organization Address [facility] Co de Phone Number HISTORICAL RESULTS * Serum magnesium (06/23/2015 11:37 AM SHIPPING CHECKER) Magnesium 2.0 1.4 - 2.5 mg/dl HISTORICAL RESULTS Serum 06/23/2015 11:3 7 AM SHIPPING CHECKER Debby Ovalles LAB BLOOD ORDERABLES Final Resul t Performing Organization Address City/[facility] Co de Phone Number HISTORICAL RESULTS * (ABNORMAL) Blood cell count [CBC] express (06/23/2015 11:37 AM SHIPPING CHECKER) WBC 12.6(H) 3.8 - 9.8 K/cumm HISTORICAL RESULTS RBC 3.50(L) 4.50 - 5.70 M/cumm HISTORICAL RESULTS Hgb 10.0(L) 13.8 - 17.2 g/dl HISTORICAL RESULTS Hct 31.3(L) 40.7 - 50.3 % HISTORICAL RESULTS MCV 89.2 80.0 - 97.6 fl HISTORICAL RESULTS MCH 28.5 26.7 - 33.7 pg HISTORICAL RESULTS MCHC 32.0(L) 32.7 - 35.5 g/dl HISTORICAL RESULTS Rdw 14.9(H) 11.8 - 14.6 % HISTORICAL RESULTS Platelets 220 140 - 440 K/cumm HISTORICAL RESULTS MPV 7.1 6.8 - 10.4 fl HISTORICAL RESULTS Blood specimen (specimen) 06/23/2015 11:37 AM SHIPPING CHECKER us Debby Ovalles LAB BLOOD ORDERABLES Final Resul t Performing Organization Address [facility] Co de Phone Number HISTORICAL RESULTS * Blood culture (06/23/2015 11:37 AM SHIPPING CHECKER) Blood specimen (specimen) (Peripheral) 06/23/2015 11:37 AM SHIPPING CHECKER 06/23/2015 12:36 PM SHIPPING CHECKER Impressions HISTORICAL RESULTS - 06/29/2015 1:27 AM SHIPPING CHECKER Blood cultures are incubated for five days on a continuously monitored blood culture system. ??The first report of a negative culture is issued within 24 hours of receipt of the specimen in the laboratory. ??Positive culture results are reported as soon as they are detected. ??For blood cultures with gram-positive cocci, a rapid molecular test for organism identification may be performed using the Strolby Nanosphere Gram Positive Blood Culture Assay. ??The Nanosphere assay detects microbial DNA in positive blood culture broth via hybridization of target DNA to capture oligonucleotides on a microarray. ??This assay has been cleared by the [place] Food and Drug Administration and its performance characteristics have been verified by the [facility]. Current Interpretive Data was last revised on 2013. Narrative HISTORICAL RESULTS - 06/29/2015 1:27 AM SHIPPING CHECKER No growth Historical Provider LAB MICROBIOLOGY - GENERA L ORDERABLES Final Result Performing Organization Address [facility] Co de Phone Number HISTORICAL RESULTS * Blood culture (06/23/2015 11:37 AM SHIPPING CHECKER) Blood specimen (specimen) (Peripheral) 06/23/2015 11:37 AM SHIPPING CHECKER 06/23/2015 12:36 PM SHIPPING CHECKER Impressions HISTORICAL RESULTS - 06/29/2015 1:27 AM SHIPPING CHECKER Blood cultures are incubated for five days on a continuously monitored blood culture system. ??The first report of a negative culture is issued within 24 hours of receipt of the specimen in the laboratory. ??Positive culture results are reported as soon as they are detected. ??For blood cultures with gram-positive cocci, a rapid molecular test for organism identification may be performed using the [employer]em[employer] Nanosphere Gram Positive Blood Culture Assay. ??The Nanosphere assay detects microbial DNA in positive blood culture broth via hybridization of target DNA to capture oligonucleotides on a microarray. ??This assay has been cleared by the [place] Food and Drug Administration and its performance characteristics have been verified by the [facility]. Current Interpretive Data was last revised on 2013. Narrative HISTORICAL RESULTS - 06/29/2015 1:27 AM SHIPPING CHECKER No growth us Historical Provider LAB MICROBIOLOGY - GENERA L ORDERABLES Final Result Performing Organization Address City/[facility] Co de Phone Number HISTORICAL RESULTS * Blood glucose, POC (06/23/2015 11:15 AM SHIPPING CHECKER) [facility] Glucose, POC, bld 177 70 - 199 mg/dl HISTORICAL RESULTS Blood specimen (specimen) 06/23/2015 11:15 AM SHIPPING CHECKER Saud Walker MD LAB BLOOD ORDERABLES F inal Result Performing Organization Address [facility] de Phone Number HISTORICAL RESULTS * Blood glucose, POC (06/23/2015 7:28 AM SHIPPING CHECKER) Glucose, POC, bld 164 70 - 199 mg/dl HISTORICAL RESULTS Blood specimen (specimen) 06/23/2015 7:28 AM SHIPPING CHECKER Saud Walker MD LAB BLOOD ORDERABLES F inal Result Performing Organization Address [facility] de Phone Number HISTORICAL RESULTS * Blood glucose, POC (06/23/2015 4:12 AM SHIPPING CHECKER) Glucose, POC, bld 181 70 - 199 mg/dl HISTORICAL RESULTS Blood specimen (specimen) 06/23/2015 4:12 AM SHIPPING CHECKER Saud Walker MD LAB BLOOD ORDERABLES F inal Result Performing Organization Address [facility] de Phone Number HISTORICAL RESULTS * Serum vancomycin, trough drug level (06/23/2015 4:09 AM SHIPPING CHECKER) Vancomycin, trough 19.3 10.0 - 20.9 mcg/ml HISTORICAL RESULTS Comment: Interpretive Data Therapeutic Range: ?? Uncomplicated skin and soft tissue infections: 10-20 mcg/mL ?? All other infections: ??15-20 mcg/mL Current interpretive data was last revised on 12. Serum 06/23/2015 4:09 AM SHIPPING CHECKER us Dee Barros MD LAB BLOOD ORDERABLES Ruth l Result Performing Organization Address [facility] de Phone Number HISTORICAL RESULTS * Blood glucose, POC (06/23/2015 12:34 AM SHIPPING CHECKER) Glucose, POC, bld 170 70 - 199 mg/dl HISTORICAL RESULTS Blood specimen (specimen) 06/23/2015 12:34 AM SHIPPING CHECKER Saud Walker MD LAB BLOOD ORDERABLES F inal Result HISTORICAL RESULTS * All Microbiology Report Section (06/23/2015 12:00 AM SHIPPING CHECKER) 06/23/2015 Narrative HISTORICAL RESULTS - 07/19/2015 1:41 PM SHIPPING CHECKER ? [facility] ?[address] [facility] [address] ?[place] [address] ? Patient Name: ??AURELIO BERNIE Diaz ? Med Rec Number: [id number] ? Fin Number: ?[id number] ? Date: ?1940 ? Sex/Age: ? Male 74 years ? Admit Date: ?06/20/2015 ? Discharge Date: 06/29/2015 ? Doctor: ?Saud Walker ? Facility: ?[facility] ? Location: ?OTHER ?* Abnormal ??A Alert ??f Footnote ??^ Corrected ??L Low ??H High ?i Interp Data ??@ Ref Lab ? Chart Type:Cumulative ?* * * * MICROBIOLOGY - BLOOD/STERILE FLUID * * * * ?PROCEDURE: Culture, Blood ? SOURCE: Blood ? COLLECTED: 06/23/15 ??1137 ?BODY SITE: Peripheral ? STARTED: 06/23/15 ??1236 ? FREE TEXT SOURCE: ? FINAL REPORT ? REPORTED: 06/29/15 0127 ? No growth ?* * * ??Interpretive Results ??* * * ? (1)Blood cultures are incubated for five days on a continuously ? monitored blood culture system. ??The first report of a negative ? culture is issued within 24 hours of receipt of the specimen in ? the laboratory. ??Positive culture results are reported as soon ? as they are detected. ??For blood cultures with gram-positive ? cocci, a rapid molecular test for organism identification may be ? performed using the Strolby Nanosphere Gram Positive Blood ? Culture Assay. ??The Nanosphere assay detects microbial DNA in ? positive blood culture broth via hybridization of target DNA to ? capture oligonucleotides on a microarray. ??This assay has been ? cleared by the [place] Food and Drug Administration and ? its performance characteristics have been verified by the ? [facility].Current ? Interpretive Data was last revised on 2013. ? us Historical Provider MD LAB MICROBIOLOGY - GENERA L ORDERABLES Final Result HISTORICAL RESULTS * All Microbiology Report Section (06/23/2015 12:00 AM SHIPPING CHECKER) 06/23/2015 Narrative HISTORICAL RESULTS - 07/19/2015 1:41 PM SHIPPING CHECKER ? [facility] ?[address] [facility] [address] ?[place], [place] [address] ? Patient Name: ??BERNIE CAREY ? Med Rec Number: [id number] ? Fin Number: ?[id number] ? Date: ?1940 ? Sex/Age: ? Male 74 years ? Admit Date: ?06/20/2015 ? Discharge Date: 06/29/2015 ? Doctor: ?Saud Walker ? Facility: ?[facility] ? Location: ?OTHER ?* Abnormal ??A Alert ??f Footnote ??^ Corrected ??L Low ??H High ?i Interp Data ??@ Ref Lab ? Chart Type:Cumulative ?* * * * MICROBIOLOGY - BLOOD/STERILE FLUID * * * * ?PROCEDURE: Culture, Blood ? SOURCE: Blood ? COLLECTED: 06/23/ ??1137 ?BODY SITE: Peripheral ? STARTED: 06/23/15 ??1236 ? FREE TEXT SOURCE: ? FINAL REPORT ? REPORTED: 06/29/157 ? No growth ?* * * ??Interpretive Results ??* * * ? (1)Blood cultures are incubated for five days on a continuously ? monitored blood culture system. ??The first report of a negative ? culture is issued within 24 hours of receipt of the specimen in ? the laboratory. ??Positive culture results are reported as soon ? as they are detected. ??For blood cultures with gram-positive ? cocci, a rapid molecular test for organism identification may be ? performed using the Strolby Nanosphere Gram Positive Blood ? Culture Assay. ??The Nanosphere assay detects microbial DNA in ? positive blood culture broth via hybridization of target DNA to ? capture oligonucleotides on a microarray. ??This assay has been ? cleared by the [place] Food and Drug Administration and ? its performance characteristics have been verified by the ? [facility].Current ? Interpretive Data was last revised on 2013. ? Historical Provider LAB MICROBIOLOGY - GENERA L ORDERABLES Final Result Performing Organization Address [facility] de Phone Number HISTORICAL RESULTS * (ABNORMAL) Plasma partial thromboplastin time (PTT) (06/22/2015 9:40 PM SHIPPING CHECKER) APTT 16.6(L) 25.0 - 37.0 seconds HISTORICAL RESULTS Comment: {Checked for clot.} Interpretive Data Therapeutic heparin range:60.0 - 94.0 sec based on correlation with therapeutic heparin activity range of 0.3 -0.7 Units/mL. Current interpretive data was last revised on 2011. Plasma 06/22/2015 9:40 PM SHIPPING CHECKER Historical Provider MD LAB BLOOD ORDERABLES Ruth l Result Performing Organization Address [facility] de Phone Number HISTORICAL RESULTS * Plasma basic metabolic panel (06/22/2015 9:40 PM SHIPPING CHECKER) Sodium 139 135 - 145 mmol/L HISTORICAL RESULTS K, pl 3.9 3.3 - 4.9 mmol/L HISTORICAL RESULTS Chloride 107 97 - 110 mmol/L HISTORICAL RESULTS CO2 24 22 - 32 mmol/L HISTORICAL RESULTS A. gap 8 0 - 16 mmol/L HISTORICAL RESULTS Glucose 196 70 - 199 mg/dl HISTORICAL RESULTS BUN 15 8 - 25 mg/dl HISTORICAL RESULTS Creatinine 1.20 0.70 - 1.30 mg/dl HISTORICAL RESULTS Calcium 8.6 8.6 - 10.3 mg/dl HISTORICAL RESULTS Plasma 06/22/2015 9:40 PM SHIPPING CHECKER Historical Provider MD LAB BLOOD ORDERABLES Ruth l Result Performing Organization Address [facility] de Phone Number HISTORICAL RESULTS * Plasma phosphorus (06/22/2015 9:40 PM SHIPPING CHECKER) Phosphorus, pl 2.9 2.3 - 4.3 mg/dl HISTORICAL RESULTS Plasma 06/22/2015 9:40 PM SHIPPING CHECKER Result [facility] Historical Provider MD LAB BLOOD ORDERABLES Ruth l Result Performing Organization Address [facility] de Phone Number HISTORICAL RESULTS * (ABNORMAL) Plasma prothrombin time (PT) (06/22/2015 9:40 PM SHIPPING CHECKER) Prothrombin time (PT) 13.1(H) 9.2 - 13.0 seconds HISTORICAL RESULTS INR 1.21(H) 0.90 - 1.20 HISTORIC AL RESULTS Comment: Interpretive Data Inpatient therapeutic ranges* Atrial fibrillation ?2.0-3.0 INR Venous thrombo-embolism ?2.0-3.0 INR Bioprosthetic heart valve ?* Mechanical heart valve, bileaflet or tilting disk,aortic position ? 2.0-3.0 INR All other,or bileaflet or tilting disk, in mitral position ? 2.5-3.5 INR *See the pharmacy resource directory (PHRED) for an updated copy of the Tool Book at [email or web address].nsf Current Interpretive Data was last revised 2011. Plasma 06/22/2015 9:40 PM SHIPPING CHECKER Historical Provider LAB BLOOD ORDERABLES Ruth l Result HISTORICAL RESULTS * Serum magnesium (06/22/2015 9:40 PM SHIPPING CHECKER) Pathologist [facility] Magnesium 2.1 1.4 - 2.5 mg/dl HISTORICAL RESULTS Serum 06/22/2015 9:40 PM SHIPPING CHECKER Result [facility] Historical Provider LAB BLOOD ORDERABLES Ruth l Result Performing Organization Address [facility] de Phone Number HISTORICAL RESULTS * (ABNORMAL) Blood cell count [CBC] express (06/22/2015 9:40 PM SHIPPING CHECKER) Pathologist [facility] WBC 14.9(H) 3.8 - 9.8 K/cumm HISTORICAL RESULTS RBC 3.96(L) 4.50 - 5.70 M/cumm HISTORICAL RESULTS Hgb 11.5(L) 13.8 - 17.2 g/dl HISTORICAL RESULTS Hct 35.4(L) 40.7 - 50.3 % HISTORICAL RESULTS MCV 89.3 80.0 - 97.6 fl HISTORICAL RESULTS MCH 29.0 26.7 - 33.7 pg HISTORICAL RESULTS MCHC 32.5(L) 32.7 - 35.5 g/dl HISTORICAL RESULTS Rdw 15.1(H) 11.8 - 14.6 % HISTORICAL RESULTS Platelets 227 140 - 440 K/cumm HISTORICAL RESULTS Comment:{No clot detected in sample.} MPV 7.6 6.8 - 10.4 fl HISTORICAL RESULTS Blood specimen (specimen) 06/22/2015 9:40 PM SHIPPING CHECKER Result [facility] Historical Provider LAB BLOOD ORDERABLES Ruth l Result Performing Organization Address City/[facility] Co de Phone Number HISTORICAL RESULTS * (ABNORMAL) Blood glucose, POC (06/22/2015 7:23 PM SHIPPING CHECKER) Glucose, POC, bld 203(H) 70 - 199 mg/dl HISTORICAL RESULTS Blood specimen (specimen) 06/22/2015 7:23 PM SHIPPING CHECKER Saud Walker MD LAB BLOOD ORDERABLES F inal Result Performing Organization Address [facility] Phone Number HISTORICAL RESULTS * Blood glucose, POC (06/22/2015 3:33 PM SHIPPING CHECKER) Glucose, POC, bld 184 70 - 199 mg/dl HISTORICAL RESULTS Blood specimen (specimen) 06/22/2015 3:33 PM SHIPPING CHECKER Saud Walker MD LAB BLOOD ORDERABLES F inal Result Performing Organization Address [facility] Phone Number HISTORICAL RESULTS * Blood glucose, POC (06/22/2015 12:08 PM SHIPPING CHECKER) Glucose, POC, bld 197 70 - 199 mg/dl HISTORICAL RESULTS Blood specimen (specimen) 06/22/2015 12:08 PM SHIPPING CHECKER Saud Walker MD LAB BLOOD ORDERABLES F inal Result Performing Organization Address [facility] Phone Number HISTORICAL RESULTS * Blood glucose, POC (06/22/2015 7:30 AM SHIPPING CHECKER) Glucose, POC, bld 198 70 - 199 mg/dl HISTORICAL RESULTS Blood specimen (specimen) 06/22/2015 7:30 AM SHIPPING CHECKER Saud Walker MD LAB BLOOD ORDERABLES F inal Result Performing Organization Address [facility] de Phone Number HISTORICAL RESULTS * (ABNORMAL) Plasma comprehensive metabolic panel (06/22/2015 6:37 AM SHIPPING CHECKER) Sodium 138 135 - 145 mmol/L HISTORICAL RESULTS K, pl 4.2 3.3 - 4.9 mmol/L HISTORICAL RESULTS Chloride 108 97 - 110 mmol/L HISTORICAL RESULTS CO2 22 22 - 32 mmol/L HISTORICAL RESULTS A. gap 8 0 - 16 mmol/L HISTORICAL RESULTS Glucose 183 70 - 199 mg/dl HISTORICAL RESULTS BUN 13 8 - 25 mg/dl HISTORICAL RESULTS Creatinine 0.95 0.70 - 1.30 mg/dl HISTORICAL RESULTS Calcium 8.7 8.6 - 10.3 mg/dl HISTORICAL RESULTS Protein, pl 5.7(L) 6.5 - 8.5 g/dl HISTORICAL RESULTS Alb 3.1(L) 3.6 - 5.0 g/dl HISTORICAL RESULTS Bilirubin 0.4 0.3 - 1.1 mg/dl HISTORICAL RESULTS Alk phos 60 38 - 126 Units/L HISTORICAL RESULTS AST 50(H) 11 - 47 Units/L HISTORICAL RESULTS ALT 29 7 - 53 Units/L HISTORICAL RESULTS Plasma 06/22/2015 6:37 AM SHIPPING CHECKER [employer] [facility] BLOOD ORDERABLES Final R [facility] Performing Organization Address [facility] de Phone Number HISTORICAL RESULTS * (ABNORMAL) Plasma partial thromboplastin time (PTT) (06/22/2015 6:37 AM SHIPPING CHECKER) APTT 21.9(L) 25.0 - 37.0 seconds HISTORICAL RESULTS Comment: Interpretive Data Therapeutic heparin range:60.0 - 94.0 sec based on correlation with therapeutic heparin activity range of 0.3 -0.7 Units/mL. Current interpretive data was last revised on 2011. Plasma 06/22/2015 6:37 AM SHIPPING CHECKER [employer] LAB BLOOD ORDERABLES Final [facility] Performing Organization Address [facility] Co de Phone Number HISTORICAL RESULTS * (ABNORMAL) Plasma prothrombin time (PT) (06/22/2015 6:37 AM SHIPPING CHECKER) Prothrombin time (PT) 13.1(H) 9.2 - 13.0 seconds HISTORICAL RESULTS INR 1.21(H) 0.90 - 1.20 HISTORIC AL RESULTS Comment: Interpretive Data Inpatient therapeutic ranges* Atrial fibrillation ?2.0-3.0 INR Venous thrombo-embolism ?2.0-3.0 INR Bioprosthetic heart valve ?* Mechanical heart valve, bileaflet or tilting disk,aortic position ? 2.0-3.0 INR All other,or bileaflet or tilting disk, in mitral position ? 2.5-3.5 INR *See the pharmacy resource directory (PHRED) for an updated copy of the Tool Book at [email or web address] Current Interpretive Data was last revised 2011. [facility] 06/22/2015 6:37 AM SHIPPING CHECKER us Loco Danielle LAB BLOOD ORDERABLES Final R esult HISTORICAL RESULTS * (ABNORMAL) Blood cell count (CBC) (06/22/2015 6:37 AM SHIPPING CHECKER) WBC 11.7(H) 3.8 - 9.8 K/cumm HISTORICAL RESULTS RBC 4.21(L) 4.50 - 5.70 M/cumm HISTORICAL RESULTS Hgb 12.0(L) 13.8 - 17.2 g/dl HISTORICAL RESULTS Hct 37.3(L) 40.7 - 50.3 % HISTORICAL RESULTS MCV 88.6 80.0 - 97.6 fl HISTORICAL RESULTS MCH 28.6 26.7 - 33.7 pg HISTORICAL RESULTS MCHC 32.3(L) 32.7 - 35.5 g/dl HISTORICAL RESULTS Rdw 14.7(H) 11.8 - 14.6 % HISTORICAL RESULTS Platelets 281 140 - 440 K/cumm HISTORICAL RESULTS MPV 7.2 6.8 - 10.4 fl HISTORICAL RESULTS Neutrophils 81.3(H) 38.7 - 74.5 % HISTORICAL RESULTS Lymphocytes 5.8(L) 20.0 - 54.3 % HISTORICAL RESULTS Monos 12.4 4.3 - 13.5 % HISTORICAL RESULTS Eosinophils 0.2 0.0 - 6.0 % HISTORICAL RESULTS Basophils 0.3 0.0 - 3.0 % HISTORICAL RESULTS Neutrophils, abs 9.5(H) 1.8 - 6.6 K/cumm HISTORICAL RESULTS Lymphocytes, abs 0.7(L) 1.2 - 3.3 K/cumm HISTORICAL RESULTS Monocytes, absolute 1.5(H) 0.2 - 1.2 K/cumm HISTORICAL RESULTS Eosinophils, abs 0.0 0.0 - 0.5 K/cumm HISTORICAL RESULTS Basophils, abs 0.0 0.0 - 0.2 K/cumm HISTORICAL RESULTS Blood specimen (specimen) 06/22/2015 6:37 AM SHIPPING CHECKER [employer] Danielle LAB BLOOD ORDERABLES Final R esult Performing Organization Address [facility] de Phone Number HISTORICAL RESULTS * Blood glucose, POC (06/22/2015 4:56 AM SHIPPING CHECKER) Glucose, POC, bld 164 70 - 199 mg/dl HISTORICAL RESULTS Blood specimen (specimen) 06/22/2015 4:56 AM SHIPPING CHECKER Saud Walker MD LAB BLOOD ORDERABLES F inal Result Performing Organization Address [facility] de Phone Number HISTORICAL RESULTS * (ABNORMAL) Blood glucose, POC (06/22/2015 12:05 AM SHIPPING CHECKER) Glucose, POC, bld 220(H) 70 - 199 mg/dl HISTORICAL RESULTS Blood specimen (specimen) 06/22/2015 12:05 AM SHIPPING CHECKER Saud Walker MD LAB BLOOD ORDERABLES F inal Result Performing Organization Address [facility] de Phone Number HISTORICAL RESULTS * VASCULAR LABORATORY REPORT (06/22/2015) Anatomical Region Laterality Modality Ultrasound Narrative 06/22/2015 Ordered by an unspecified provider. us Historical Provider CV VASCULAR PROCEDURES Fi nal Result * ELECTROCARDIOGRAPHY (ECG) (06/22/2015) Narrative 06/22/2015 Ordered by an unspecified provider. us Historical Provider ECG ORDERABLES Final Res ult * XR Chest 1 View (06/21/2015 11:00 PM SHIPPING CHECKER) Anatomical Region Laterality Modality Body, Chest N/A Radiographic Ary ging 06/21/2015 11:0 0 PM SHIPPING CHECKER Narrative 06/22/2015 11:11 AM SHIPPING CHECKER ZHANE BULL M.D. LAW CHÁVEZ M.D. FINAL REPORT The radiology attending physician has personally reviewed this study, and has reviewed and/or edited this written report and agrees with it. ACC# ??Date Time ??Exam [id number] Jun 21, 2015 23:00:00 [id number] Chest 1 view Frontal EXAMINATION: ?? Chest one view, frontal IMPRESSION: ?? Comparison is made with the prior study dated 06/20/2015. An endotracheal tube terminates approximately 3 cm above the ben. A right internal jugular central venous catheter and a gastric tube are also noted. There is bibasilar atelectasis. There is no pneumothorax or pleural effusion. There is new apparent widening of the mediastinum; while this may be due to positioning, recommend a two-view chest radiograph for further evaluation. Finding relayed to Dr. Jorge by Dr. Chávez at 10:50 a.m. on 06/22/2015. Old rib fractures are also noted. Requested By: RANI JO [facility] Dictated By: ?? LAW CHÁVEZ M.D. ??on Jun 22 2015 10:56A This document has been electronically signed by: ZHANE BULL M.D. on Jun 22 2015 11:10A [id number] Procedure Note Provider, Dee, - 11/28/2016 ZHANE BULL M.D. LAW CHÁVEZ M.D. FINAL REPORT The radiology attending physician has personally reviewed this study, and has reviewed and/or edited this written report and agrees with it. ACC# Date Time Exam [id number] Jun 21, 2015 23:00:00 [id number] Chest 1 view Frontal EXAMINATION: Chest one view, frontal IMPRESSION: Comparison is made with the prior study dated 06/20/2015. An endotracheal tube terminates approximately 3 cm above the ben. A right internal jugular central venous catheter and a gastric tube are also noted. There is bibasilar atelectasis. There is no pneumothorax or pleural effusion. There is new apparent widening of the mediastinum; while this may be due to positioning, recommend a two-view chest radiograph for further evaluation. Finding relayed to Dr. Jorge by Dr. Chávez at 10:50 a.m. on 06/22/2015. Old rib fractures are also noted. Requested By: RANI JO Dictated By: LAW CHÁVEZ M.D. on Jun 22 2015 10:56A This document has been electronically signed by: ZHANE BULL M.D. on Jun 22 2015 11:10A [id number] us Historical Provider MD YO XR PROCEDURES Final R esult * ABDOMINAL RADIOGRAPHY, FRONTAL (AP) (06/21/2015 11:00 PM SHIPPING CHECKER) Anatomical Region Laterality Modality N/A Radiographic Ary ging 06/21/2015 11:0 0 PM SHIPPING CHECKER Narrative 06/22/2015 11:46 AM SHIPPING CHECKER GREGG GONZALEZ M.D. MANDY CAMARILLO M.D. FINAL REPORT The radiology attending physician has personally reviewed this study, and has reviewed and/or edited this written report and agrees with it. ACC# ??Date Time ??Exam [id number] Jun 21, 2015 23:00:00 [id number] Abdomen single view AP EXAMINATION: ?Abdomen single view HISTORY: ??Check OG tube placement IMPRESSION: ?? Single AP view of the abdomen is obtained without comparison. There is a nasogastric tube with tip in the body of the stomach and side-port at the gastroesophageal junction. Advancement of the NG tube is recommended. There are hernia repair mesh clips seen. Postsurgical changes of posterior instrumented spinal fusion are seen. Requested By: RANI JO Dictated By: ?? MANDY CAMARILLO M.D. ??on Jun 22 2015 11:45A This document has been electronically signed by: GREGG GONZALEZ M.D. on Jun 22 2015 11:46A [id number] Procedure Note Provider, Dee, - 11/28/2016 GREGG GONZALEZ M.D. MANDY CAMARILLO M.D. FINAL REPORT The radiology attending physician has personally reviewed this study, and has reviewed and/or edited this written report and agrees with it. ACC# Date Time Exam [id number] Jun 21, 2015 23:00:00 [id number] Abdomen single view AP EXAMINATION: Abdomen single view HISTORY: Check OG tube placement IMPRESSION: Single AP view of the abdomen is obtained without comparison. There is a nasogastric tube with tip in the body of the stomach and side-port at the gastroesophageal junction. Advancement of the NG tube is recommended. There are hernia repair mesh clips seen. Postsurgical changes of posterior instrumented spinal fusion are seen. Requested By: RANI JO ACNP Dictated By: MANDY CAMARILLO M.D. on Jun 22 2015 11:45A This document has been electronically signed by: GREGG GONZALEZ M.D. on Jun 22 2015 11:46A [id number] us Historical Provider IMG XR PROCEDURES Final R esult * Serum magnesium (06/21/2015 9:19 PM SHIPPING CHECKER) Magnesium 1.8 1.4 - 2.5 mg/dl HISTORICAL RESULTS Serum 06/21/2015 9:19 PM SHIPPING CHECKER Rani Jo [employer] LAB BLOOD ORDERABLES Final Res ult Performing Organization Address City/State/[facility] Co de Phone Number HISTORICAL RESULTS * Blood potassium, mixed venous (06/21/2015 9:19 PM SHIPPING CHECKER) Potassium, bld 4.3 3.3 - 4.9 mmol/L HISTORICAL RESULTS Mixed venous blood 06/21/2015 9:19 PM SHIPPING CHECKER Rani Jo [employer] LAB BLOOD ORDERABLES Final Res ult HISTORICAL RESULTS * (ABNORMAL) Blood gas, arterial (06/21/2015 9:19 PM SHIPPING CHECKER) Ph, art 7.34(L) 7.35 - 7.45 HISTORICAL RESULTS PCO2 37 35 - 45 mm Hg HISTORICAL RESULTS PO2, art 114(H) 80 - 105 mm Hg HISTORICAL RESULTS CO2, calc, art 21 21 - 30 mmol/L HISTORICAL RESULTS A-a gradient 128 mm Hg HISTORI CAMILA RESULTS O2, inspired, %, art 40 % HISTORICAL RESULTS Oxygen (O2), inspired fraction (FiO2) Not Applicable liters HISTORICAL RESULTS Arterial blood 06/21/2015 9: 19 PM SHIPPING CHECKER Rani Jo LAB BLOOD ORDERABLES Final [facility] Performing Organization Address [facility] de Phone Number HISTORICAL RESULTS * Blood lactic acid (06/21/2015 9:19 PM SHIPPING CHECKER) Pathologist [facility] Lactic acid 2.0 0.7 - 2.1 mmol/L HISTORICAL RESULTS Blood specimen (specimen) 06/21/2015 9:19 PM SHIPPING CHECKER us Rani Jo [employer] [facility] LAB BLOOD ORDERABLES Final [facility] Performing Organization Address [facility] de Phone Number HISTORICAL RESULTS * (ABNORMAL) Plasma comprehensive metabolic panel (06/21/2015 9:19 PM SHIPPING CHECKER) Pathologist [facility] Sodium 138 135 - 145 mmol/L HISTORICAL RESULTS K, pl 4.3 3.3 - 4.9 mmol/L HISTORICAL RESULTS Chloride 108 97 - 110 mmol/L HISTORICAL RESULTS CO2 19(L) 22 - 32 mmol/L HISTORICAL RESULTS A. gap 11 0 - 16 mmol/L HISTORICAL RESULTS Glucose 208(H) 70 - 199 mg/dl HISTORICAL RESULTS BUN 13 8 - 25 mg/dl HISTORICAL RESULTS Creatinine 0.97 0.70 - 1.30 mg/dl HISTORICAL RESULTS Calcium 8.8 8.6 - 10.3 mg/dl HISTORICAL RESULTS Protein, pl 5.7(L) 6.5 - 8.5 g/dl HISTORICAL RESULTS Alb 3.2(L) 3.6 - 5.0 g/dl HISTORICAL RESULTS Bilirubin 0.5 0.3 - 1.1 mg/dl HISTORICAL RESULTS Alk phos 60 38 - 126 Units/L HISTORICAL RESULTS AST 24 11 - 47 Units/L HISTORICAL RESULTS ALT 24 7 - 53 Units/L HISTORICAL RESULTS Plasma 06/21/2015 9:19 PM SHIPPING CHECKER [employer] LAB BLOOD ORDERABLES Final R [facility] Performing Organization Address [facility] de Phone Number HISTORICAL RESULTS * (ABNORMAL) Plasma partial thromboplastin time (PTT) (06/21/2015 9:19 PM SHIPPING CHECKER) APTT 23.4(L) 25.0 - 37.0 seconds HISTORICAL RESULTS Comment: Interpretive Data Therapeutic heparin range:60.0 - 94.0 sec based on correlation with therapeutic heparin activity range of 0.3 -0.7 Units/mL. Current interpretive data was last revised on 2011. Plasma 06/21/2015 9:19 PM SHIPPING CHECKER [employer] LAB BLOOD ORDERABLES Final [facility] Organization Address [facility] de Phone Number HISTORICAL RESULTS * (ABNORMAL) Plasma prothrombin time (PT) (06/21/2015 9:19 PM SHIPPING CHECKER) Prothrombin time (PT) 13.4(H) 9.2 - 13.0 seconds HISTORICAL RESULTS INR 1.24(H) 0.90 - 1.20 HISTORIC AL RESULTS Comment: Interpretive Data Inpatient therapeutic ranges* Atrial fibrillation ?2.0-3.0 INR Venous thrombo-embolism ?2.0-3.0 INR Bioprosthetic heart valve ?* Mechanical heart valve, bileaflet or tilting disk,aortic position ? 2.0-3.0 INR All other,or bileaflet or tilting disk, in mitral position ? 2.5-3.5 INR *See the pharmacy resource directory (PHRED) for an updated copy of the Tool Book at [email or web address] Current Interpretive Data was last revised 2011. Plasma 06/21/2015 9:19 PM SHIPPING CHECKER us Loco Danielle LAB BLOOD ORDERABLES Final R esult HISTORICAL RESULTS * (ABNORMAL) Blood cell count (CBC) (06/21/2015 9:19 PM SHIPPING CHECKER) WBC 18.3(H) 3.8 - 9.8 K/cumm HISTORICAL RESULTS RBC 4.17(L) 4.50 - 5.70 M/cumm HISTORICAL RESULTS Hgb 11.9(L) 13.8 - 17.2 g/dl HISTORICAL RESULTS Hct 36.2(L) 40.7 - 50.3 % HISTORICAL RESULTS MCV 86.9 80.0 - 97.6 fl HISTORICAL RESULTS MCH 28.4 26.7 - 33.7 pg HISTORICAL RESULTS MCHC 32.7 32.7 - 35.5 g/dl HISTORICAL RESULTS Rdw 14.8(H) 11.8 - 14.6 % HISTORICAL RESULTS Platelets 264 140 - 440 K/cumm HISTORICAL RESULTS Comment:{No clot detected in sample.} MPV 7.2 6.8 - 10.4 fl HISTORICAL RESULTS Neutrophils 87.5(H) 38.7 - 74.5 % HISTORICAL RESULTS Lymphocytes 4.6(L) 20.0 - 54.3 % HISTORICAL RESULTS Monos 7.2 4.3 - 13.5 % HISTORICAL RESULTS Eosinophils 0.6 0.0 - 6.0 % HISTORICAL RESULTS Basophils 0.1 0.0 - 3.0 % HISTORICAL RESULTS Neutrophils, abs 16.0(H) 1.8 - 6.6 K/cumm HISTORICAL RESULTS Lymphocytes, abs 0.8(L) 1.2 - 3.3 K/cumm HISTORICAL RESULTS Monocytes, absolute 1.3(H) 0.2 - 1.2 K/cumm HISTORICAL RESULTS Eosinophils, abs 0.1 0.0 - 0.5 K/cumm HISTORICAL RESULTS Basophils, abs 0.0 0.0 - 0.2 K/cumm HISTORICAL RESULTS Blood specimen (specimen) 06/21/2015 9:19 PM SHIPPING CHECKER Loco Danielle LAB BLOOD ORDERABLES Final R esult HISTORICAL RESULTS * Fluoroscopy < 1 Hour (06/21/2015 7:02 PM SHIPPING CHECKER) Anatomical Region Laterality Modality Body N/A Radiographic Ary ging 06/21/2015 7:02 PM SHIPPING CHECKER Narrative 06/21/2015 7:29 PM SHIPPING CHECKER This examination was converted from a legacy system and did not match a report, either due to it being a non-reportable examination, or a duplicate entry Procedure Note Provider, MD Dee - 03/09/2017 This examination was converted from a legacy system and did not match areport, either due to it being a non-reportable examination, or aduplicate entry Historical Provider MD YO FLUOROSCOPY PROCEDURE S Final Result * (ABNORMAL) Blood gas, point of care, arterial (06/21/2015 6:20 PM SHIPPING CHECKER) Ph, art 7.36 7.35 - 7.45 HISTORICAL RESULTS PCO2 45 35 - 45 mm Hg HISTORICAL RESULTS PO2, art 310(H) 80 - 105 mm Hg HISTORICAL RESULTS Sodium, bld 140 135 - 145 mmol/L HISTORICAL RESULTS Potassium, bld 4.2 3.3 - 4.9 mmol/L HISTORICAL RESULTS Ca, ionized, bld 4.85 4.50 - 5.10 mg/dl HISTORICAL RESULTS Hct 40.0(L) 40.7 - 50.3 % HISTORICAL RESULTS Glu, art 158 70 - 199 mg/dl HISTORICAL RESULTS HCO3, art 25 20 - 30 mmol/L HISTORICAL RESULTS CO2, calc, art 27 22 - 32 mmol/L HISTORICAL RESULTS BE, art -0.3 mmol/L HISTORICAL RESULTS O2 sat, art 100(H) 95 - 98 % HISTORIC AL RESULTS Arterial blood 06/21/2015 6: 20 PM SHIPPING CHECKER Saud Walker MD LAB BLOOD ORDERABLES F inal Result Performing Organization Address [facility] de Phone Number HISTORICAL RESULTS * Aerobic/anaerobic culture and Gram stain (06/21/2015 5:10 PM SHIPPING CHECKER) Tissue (Unknown) 06/21/2015 5:10 PM SHIPPING CHECKER 06/21/2015 8:17 PM SHIPPING CHECKER Impressions HISTORICAL RESULTS - 06/25/2015 10:59 AM SHIPPING CHECKER Specimens submitted from normally sterile body sites will have all bacterial morphotypes identified. Specimens that contain grossly mixed bari and/or are from body sites that are not normally sterile will be examined for Staphylococcus aureus, Pseudomonas aeruginosa, beta-hemolytic strep, vancomycin-resistant Enterococcus, Bacteroides fragilis, Clostridium perfringens and fungus. If any of these are isolated, the organism will be reported. Current interpretive data was last revised on 2012. Narrative HISTORICAL RESULTS - 06/25/2015 10:59 AM SHIPPING CHECKER No growth Few polymorphonuclear leukocytes seen. No organisms seen. Historical Provider LAB MICROBIOLOGY - GENERA L ORDERABLES Final Result Performing Organization Address [facility] de Phone Number HISTORICAL RESULTS * Fungal culture (06/21/2015 5:10 PM SHIPPING CHECKER) Tissue (Unknown) 06/21/2015 5:10 PM SHIPPING CHECKER 06/21/2015 8:17 PM SHIPPING CHECKER Narrative HISTORICAL RESULTS - 07/19/2015 9:57 AM SHIPPING CHECKER No growth of fungus Historical Provider LAB MICROBIOLOGY - GENERA L ORDERABLES Final Result Performing Organization Address [facility] de Phone Number HISTORICAL RESULTS * Fungal culture (06/21/2015 4:36 PM SHIPPING CHECKER) Tissue (Unknown) 06/21/2015 4:36 PM SHIPPING CHECKER 06/21/2015 5:29 PM SHIPPING CHECKER Narrative HISTORICAL RESULTS - 07/19/2015 9:57 AM SHIPPING CHECKER No growth of fungus Historical Provider LAB MICROBIOLOGY - GENERA L ORDERABLES Final Result Performing Organization Address [facility] de Phone Number HISTORICAL RESULTS * Aerobic culture and Gram stain (06/21/2015 4:36 PM SHIPPING CHECKER) Tissue (Unknown) 06/21/2015 4:36 PM SHIPPING CHECKER 06/21/2015 5:28 PM SHIPPING CHECKER Impressions HISTORICAL RESULTS - 06/24/2015 11:43 AM SHIPPING CHECKER Specimens submitted from normally sterile body sites will have all bacterial morphotypes identified. Specimens that contain grossly mixed bari and/or are from body sites that are not normally sterile will be examined for Staphylococcus aureus, Pseudomonas aeruginosa, beta-hemolytic strep, vancomycin-resistant Enterococcus and fungus. If any of these are isolated, the organism will be reported. Current interpretive data was last revised on 2012. Narrative HISTORICAL RESULTS - 06/24/2015 11:43 AM SHIPPING CHECKER No growth Rare polymorphonuclear leukocytes seen. No organisms seen. Historical Provider LAB MICROBIOLOGY - GENERA L ORDERABLES Final Result Performing Organization Address [facility] Co de Phone Number HISTORICAL RESULTS * (ABNORMAL) Blood gas, point of care, arterial (06/21/2015 4:11 PM SHIPPING CHECKER) Ph, art 7.37 7.35 - 7.45 HISTORICAL RESULTS PCO2 45 35 - 45 mm Hg HISTORICAL RESULTS PO2, art 310(H) 80 - 105 mm Hg HISTORICAL RESULTS Sodium, bld 139 135 - 145 mmol/L HISTORICAL RESULTS Potassium, bld 3.9 3.3 - 4.9 mmol/L HISTORICAL RESULTS Ca, ionized, bld 4.85 4.50 - 5.10 mg/dl HISTORICAL RESULTS Hct 43.0 40.7 - 50.3 % HISTORICAL RESULTS Glu, art 143 70 - 199 mg/dl HISTORICAL RESULTS HCO3, art 26 20 - 30 mmol/L HISTORICAL RESULTS CO2, calc, art 27 22 - 32 mmol/L HISTORICAL RESULTS BE, art 0.3 mmol/L HISTORICAL RESULTS O2 sat, art 100(H) 95 - 98 % HISTORIC AL RESULTS Arterial blood 06/21/2015 4: 11 PM SHIPPING CHECKER Saud Walker MD LAB BLOOD ORDERABLES F inal Result Performing Organization Address City/[facility] Co de Phone Number HISTORICAL RESULTS * Fungal culture (06/21/2015 4:00 PM SHIPPING CHECKER) Wound (Deep) 06/21/2015 4:00 PM SHIPPING CHECKER 06/21/2015 5:26 PM SHIPPING CHECKER Narrative HISTORICAL RESULTS - 07/19/2015 9:57 AM SHIPPING CHECKER No growth of fungus Historical Provider LAB MICROBIOLOGY - GENERA L ORDERABLES Final Result Performing Organization Address [facility] de Phone Number HISTORICAL RESULTS * Aerobic culture and Gram stain (06/21/2015 4:00 PM SHIPPING CHECKER) Wound (Deep) 06/21/2015 4:00 PM SHIPPING CHECKER 06/21/2015 5:25 PM SHIPPING CHECKER Impressions HISTORICAL RESULTS - 06/24/2015 11:44 AM SHIPPING CHECKER Specimens submitted from normally sterile body sites will have all bacterial morphotypes identified. ??Specimens that contain grossly mixed bari and/or are from body sites that are not normally sterile will be examined for Staphylococcus aureus, Pseudomonas aeruginosa, beta-hemolytic strep, vancomycin-resistant Enterococcus and fungus. ??If any of these are isolated, the organism will be reported. Current interpretive data was last revised on 2013. Narrative HISTORICAL RESULTS - 06/24/2015 11:44 AM SHIPPING CHECKER Rare polymorphonuclear leukocytes seen. No organisms seen. No growth Historical Provider LAB MICROBIOLOGY - GENERA L ORDERABLES Final Result Performing Organization Address [facility] de Phone Number HISTORICAL RESULTS * Fungal culture (06/21/2015 3:45 PM SHIPPING CHECKER) Wound (Miscellaneous) 06/21/2015 3:45 PM SHIPPING CHECKER 06/21/2015 5:23 PM SHIPPING CHECKER Narrative HISTORICAL RESULTS - 07/19/2015 9:57 AM SHIPPING CHECKER No growth of fungus Historical Provider LAB MICROBIOLOGY - GENERA L ORDERABLES Final Result Performing Organization Address [facility] de Phone Number HISTORICAL RESULTS * Aerobic/anaerobic culture and Gram stain (06/21/2015 3:45 PM SHIPPING CHECKER) Wound (Miscellaneous) 06/21/2015 3:45 PM SHIPPING CHECKER 06/21/2015 5:22 PM SHIPPING CHECKER Impressions HISTORICAL RESULTS - 06/24/2015 11:44 AM SHIPPING CHECKER Specimens submitted from normally sterile body sites will have all bacterial morphotypes identified. ??Specimens that contain grossly mixed bari and/or are from body sites that are not normally sterile will be examined for Staphylococcus aureus, Pseudomonas aeruginosa, beta-hemolytic strep, vancomycin-resistant Enterococcus, Bacteroides fragilis, Clostridium perfringens and fungus. ??If any of these are isolated, the organism will be reported. Current interpretive data was last revised on 2013. Narrative HISTORICAL RESULTS - 06/24/2015 11:44 AM SHIPPING CHECKER No growth No polymorphonuclear leukocytes seen. No organisms seen. Historical Provider MD LAB MICROBIOLOGY - GENERA L ORDERABLES Final Result Performing Organization Address [facility] de Phone Number HISTORICAL RESULTS * Blood glucose, POC (06/21/2015 12:24 PM SHIPPING CHECKER) Glucose, POC, bld 119 70 - 199 mg/dl HISTORICAL RESULTS Blood specimen (specimen) 06/21/2015 12:24 PM SHIPPING CHECKER Saud Walker MD LAB BLOOD ORDERABLES F inal Result Performing Organization Address [facility] de Phone Number HISTORICAL RESULTS * Blood glucose, POC (06/21/2015 6:42 AM SHIPPING CHECKER) Glucose, POC, bld 136 70 - 199 mg/dl HISTORICAL RESULTS Blood specimen (specimen) 06/21/2015 6:42 AM SHIPPING CHECKER Saud Walker MD LAB BLOOD ORDERABLES F inal Result Performing Organization Address [facility] de Phone Number HISTORICAL RESULTS * (ABNORMAL) Plasma comprehensive metabolic panel (06/21/2015 12:34 AM SHIPPING CHECKER) Sodium 136 135 - 145 mmol/L HISTORICAL RESULTS K, pl 4.0 3.3 - 4.9 mmol/L HISTORICAL RESULTS Chloride 102 97 - 110 mmol/L HISTORICAL RESULTS CO2 26 22 - 32 mmol/L HISTORICAL RESULTS A. gap 8 0 - 16 mmol/L HISTORICAL RESULTS Glucose 123 70 - 199 mg/dl HISTORICAL RESULTS BUN 15 8 - 25 mg/dl HISTORICAL RESULTS Creatinine 1.01 0.70 - 1.30 mg/dl HISTORICAL RESULTS Calcium 9.2 8.6 - 10.3 mg/dl HISTORICAL RESULTS Protein, pl 6.2(L) 6.5 - 8.5 g/dl HISTORICAL RESULTS Alb 3.1(L) 3.6 - 5.0 g/dl HISTORICAL RESULTS Bilirubin 0.4 0.3 - 1.1 mg/dl HISTORICAL RESULTS Alk phos 74 38 - 126 Units/L HISTORICAL RESULTS AST 18 11 - 47 Units/L HISTORICAL RESULTS ALT 24 7 - 53 Units/L HISTORICAL RESULTS Plasma 06/21/2015 12:3 4 AM SHIPPING CHECKER us Jay Jay Ricci MD LAB BLOOD ORDERABLES Fi nal Result HISTORICAL RESULTS * Plasma prothrombin time (PT) (06/21/2015 12:34 AM SHIPPING CHECKER) Prothrombin time (PT) 12.2 9.2 - 13.0 seconds HISTORICAL RESULTS INR 1.13 0.90 - 1.20 HISTORIC AL RESULTS Comment: Interpretive Data Inpatient therapeutic ranges* Atrial fibrillation ?2.0-3.0 INR Venous thrombo-embolism ?2.0-3.0 INR Bioprosthetic heart valve ?* Mechanical heart valve, bileaflet or tilting disk,aortic position ? 2.0-3.0 INR All other,or bileaflet or tilting disk, in mitral position ? 2.5-3.5 INR *See the pharmacy resource directory (PHRED) for an updated copy of the Tool Book at [email or web address]/pharmacy.nsf Current Interpretive Data was last revised 2011. Plasma 06/21/2015 12:3 4 AM SHIPPING CHECKER us Jay Jay Ricci MD LAB BLOOD ORDERABLES Fi nal Result HISTORICAL RESULTS * (ABNORMAL) Blood cell count (CBC) (06/21/2015 12:34 AM SHIPPING CHECKER) WBC 9.1 3.8 - 9.8 K/cumm HISTORICAL RESULTS RBC 4.97 4.50 - 5.70 M/cumm HISTORICAL RESULTS Hgb 14.1 13.8 - 17.2 g/dl HISTORICAL RESULTS Hct 43.2 40.7 - 50.3 % HISTORICAL RESULTS MCV 86.9 80.0 - 97.6 fl HISTORICAL RESULTS MCH 28.3 26.7 - 33.7 pg HISTORICAL RESULTS MCHC 32.6(L) 32.7 - 35.5 g/dl HISTORICAL RESULTS Rdw 14.8(H) 11.8 - 14.6 % HISTORICAL RESULTS Platelets 381 140 - 440 K/cumm HISTORICAL RESULTS MPV 8.1 6.8 - 10.4 fl HISTORICAL RESULTS Neutrophils 64.1 38.7 - 74.5 % HISTORICAL RESULTS Lymphocytes 18.4(L) 20.0 - 54.3 % HISTORICAL RESULTS Monos 14.5(H) 4.3 - 13.5 % HISTORICAL RESULTS Eosinophils 2.5 0.0 - 6.0 % HISTORICAL RESULTS Basophils 0.5 0.0 - 3.0 % HISTORICAL RESULTS Neutrophils, abs 5.9 1.8 - 6.6 K/cumm HISTORICAL RESULTS Lymphocytes, abs 1.7 1.2 - 3.3 K/cumm HISTORICAL RESULTS Monocytes, absolute 1.3(H) 0.2 - 1.2 K/cumm HISTORICAL RESULTS Eosinophils, abs 0.2 0.0 - 0.5 K/cumm HISTORICAL RESULTS Basophils, abs 0.0 0.0 - 0.2 K/cumm HISTORICAL RESULTS Blood specimen (specimen) 06/21/2015 12:34 AM SHIPPING CHECKER Jya Jay Ricci MD LAB BLOOD ORDERABLES nal Result HISTORICAL RESULTS * Surgical pathology (06/21/2015) Narrative 06/21/2015 Ordered by an unspecified provider. us Historical Provider MD LAB PATHOLOGY ORDERABLES Final Result * All Microbiology Report Section (06/21/2015 12:00 AM SHIPPING CHECKER) 06/21/2015 Narrative HISTORICAL RESULTS - 07/19/2015 1:41 PM SHIPPING CHECKER ? [facility] ?[address] [facility] [address] ?[place], [place] [address] ? Patient Name: ??BERNIE CAREY ? Med Rec Number: [id number] ? Fin Number: ?[id number] ? Date: ?1940 ? Sex/Age: ? Male 74 years ? Admit Date: ?06/20/2015 ? Discharge Date: 06/29/2015 ? Doctor: ?Saud Walker ? Facility: ?[facility] ? Location: ?OTHER ?* Abnormal ??A Alert ??f Footnote ??^ Corrected ??L Low ??H High ?i Interp Data ??@ Ref Lab ? Chart Type:Cumulative ?* * * * MICROBIOLOGY - MYCOLOGY * * * * ?PROCEDURE: Mycology Culture ? SOURCE: Tissue ? COLLECTED: 06/21/15 ??1636 ?BODY SITE: ? STARTED: 06/21/15 ??1730 ? FREE TEXT SOURCE: ? FINAL REPORT ? REPORTED: 07/19/15 0957 ? No growth of fungus ? ORDER COMMENTS ? (1)Specimen collected in the operating room. L3 Body spine ? us Historical Provider MD LAB MICROBIOLOGY - GENERA L ORDERABLES Final Result HISTORICAL RESULTS * All Microbiology Report Section (06/21/2015 12:00 AM SHIPPING CHECKER) 06/21/2015 Narrative HISTORICAL RESULTS - 07/19/2015 1:41 PM SHIPPING CHECKER ? [facility] ?[address] [facility] [address] ?[place], [place] [address] ? Patient Name: ??AURELIO BENRIE Diaz ? Med Rec Number: [id number] ? Fin Number: ?[id number] ? Date: ?1940 ? Sex/Age: ? Male 74 years ? Admit Date: ?06/20/2015 ? Discharge Date: 06/29/2015 ? Doctor: ?Saud Walker ? Facility: ?[facility] ? Location: ?OTHER ?* Abnormal ??A Alert ??f Footnote ??^ Corrected ??L Low ??H High ?i Interp Data ??@ Ref Lab ? Chart Type:Cumulative ?* * * * MICROBIOLOGY - MYCOLOGY * * * * ?PROCEDURE: Mycology Culture ? SOURCE: Wound ? COLLECTED: 06/21/15 ??1545 ?BODY SITE: Miscellaneous ? STARTED: 06/21/15 ??1723 ? FREE TEXT SOURCE: ? FINAL REPORT ? REPORTED: 07/19/15956 ? No growth of fungus ? ORDER COMMENTS ? (1)Specimen collected in the operating room. ? Specimen received on ? an ESwab.superficial lumbar spine ? us Historical Provider MD LAB MICROBIOLOGY - GENERA L ORDERABLES Final Result HISTORICAL RESULTS * All Microbiology Report Section (06/21/2015 12:00 AM SHIPPING CHECKER) 06/21/2015 Narrative HISTORICAL RESULTS - 07/19/2015 1:41 PM SHIPPING CHECKER ? [facility] ?[address] [facility] [address] ?[place], [place] [address] ? Patient Name: ??BERNIE CAREY ? Med Rec Number: [id number] ? Fin Number: ?[id number] ? Date: ?1940 ? Sex/Age: ? Male 74 years ? Admit Date: ?06/20/2015 ? Discharge Date: 06/29/2015 ? Doctor: ?Saud Walker ? Facility: ?[facility] ? Location: ?OTHER ?* Abnormal ??A Alert ??f Footnote ??^ Corrected ??L Low ??H High ?i Interp Data ??@ Ref Lab ? Chart Type:Cumulative ?* * * * MICROBIOLOGY - MYCOLOGY * * * * ?PROCEDURE: Mycology Culture ? SOURCE: Wound ? COLLECTED: 06/21/15 ??1600 ?BODY SITE: Deep ? STARTED: 06/21/15 ??1726 ? FREE TEXT SOURCE: ? FINAL REPORT ? REPORTED: 07/19/15956 ? No growth of fungus ? ORDER COMMENTS ? (1)Specimen collected in the operating room. ? Specimen received on ? an ESwab. lumbar spine ? us Historical Provider MD LAB MICROBIOLOGY - GENERA L ORDERABLES Final Result HISTORICAL RESULTS * All Microbiology Report Section (06/21/2015 12:00 AM SHIPPING CHECKER) 06/21/2015 Narrative HISTORICAL RESULTS - 07/19/2015 1:41 PM SHIPPING CHECKER ? [facility] ?[address] [facility] [address] ?[place], [place] [address] ? Patient Name: ??BERNIE CAREY ? Med Rec Number: [id number] ? Fin Number: ?[id number] ? Date: ?1940 ? Sex/Age: ? Male 74 years ? Admit Date: ?06/20/2015 ? Discharge Date: 06/29/2015 ? Doctor: ?Aaron , Saud M ? Facility: ?[facility] ? Location: ?OTHER ?* Abnormal ??A Alert ??f Footnote ??^ Corrected ??L Low ??H High ?i Interp Data ??@ Ref Lab ? Chart Type:Cumulative ?* * * * MICROBIOLOGY - MYCOLOGY * * * * ?PROCEDURE: Mycology Culture ? SOURCE: Tissue ? COLLECTED: 11/19/15 ??1710 ?BODY SITE: ? STARTED: 11/19/15 ??2018 ? FREE TEXT SOURCE: ? FINAL REPORT ? REPORTED: 07/19/15 0957 ? No growth of fungus ? ORDER COMMENTS ? (1)Specimen collected in the operating room. ? L2 - L3 Disc post spine ? us Historical Provider MD LAB MICROBIOLOGY - GENERA L ORDERABLES Final Result HISTORICAL RESULTS * All Microbiology Report Section (06/21/2015 12:00 AM SHIPPING CHECKER) 06/21/2015 Narrative HISTORICAL RESULTS - 07/19/2015 1:41 PM SHIPPING CHECKER ? [facility] ?[address] [facility] [address] ?[place], [place] [address] ? Patient Name: ??BERNIE CAREY ? Med Rec Number: [id number] ? Fin Number: ?[id number] ? Date: ?1940 ? Sex/Age: ? Male 74 years ? Admit Date: ?06/20/2015 ? Discharge Date: 06/29/2015 ? Doctor: ?Saud Walker ? Facility: ?[facility] ? Location: ?OTHER ?* Abnormal ??A Alert ??f Footnote ??^ Corrected ??L Low ??H High ?i Interp Data ??@ Ref Lab ? Chart Type:Cumulative ?* * * * MICROBIOLOGY - MISCELLANEOUS * * * * ?PROCEDURE: Aerobic and Anaerobic Culture and Gram Stain ? SOURCE: Tissue ? COLLECTED: 11/19/15 ??1710 ?BODY SITE: ? STARTED: 11/19/15 ??2018 ? FREE TEXT SOURCE: ? DIRECT SPECIMEN EXAMINATION ? Stain ? REPORTED: 06/21/15 2139 ? Few polymorphonuclear leukocytes seen. ? No organisms seen. ? FINAL REPORT ? REPORTED: 06/25/15 1059 ? No growth ? ORDER COMMENTS ? (1)Specimen collected in the operating room. ? L2 - L3 Disc post spine ?* * * ??Interpretive Results ??* * * ? (1)Specimens submitted from normally sterile body sites will have ? all bacterial morphotypes identified. Specimens that contain ? grossly mixed bari and/or are from body sites that are not ? normally sterile will be examined for Staphylococcus aureus, ? Pseudomonas aeruginosa, beta-hemolytic strep, ? vancomycin-resistant Enterococcus, Bacteroides fragilis, ? Clostridium perfringens and fungus. If any of these are isolated, ? the organism will be reported.Current interpretive data was ? last revised on 12/07/2012. ? us Historical Provider LAB MICROBIOLOGY - GENERA L ORDERABLES Final Result HISTORICAL RESULTS * All Microbiology Report Section (06/21/2015 12:00 AM SHIPPING CHECKER) 06/21/2015 Narrative HISTORICAL RESULTS - 07/19/2015 1:41 PM SHIPPING CHECKER ? [facility] ?[address] [facility] [address] ?[place] [address] ? Patient Name: ??AURELIOBERNIE ? Med Rec Number: [id number] ? Fin Number: ?[id number] ? Date: ?1940 ? Sex/Age: ? Male 74 years ? Admit Date: ?06/20/2015 ? Discharge Date: 06/29/2015 ? Doctor: ?Saud Walker ? Facility: ?[facility] ? Location: ?OTHER ?* Abnormal ??A Alert ??f Footnote ??^ Corrected ??L Low ??H High ?i Interp Data ??@ Ref Lab ? Chart Type:Cumulative ?* * * * MICROBIOLOGY - WOUND and EXUDATES * * * * ?PROCEDURE: Aerobic and Anaerobic Culture, Wound and Gram Stain ? SOURCE: Wound ? COLLECTED: 06/21/15 ??1545 ?BODY SITE: Miscellaneous ? STARTED: 06/21/15 ??1723 ? FREE TEXT SOURCE: ? DIRECT SPECIMEN EXAMINATION ? Stain ? REPORTED: 06/21/151 ? No polymorphonuclear leukocytes seen. ? No organisms seen. ? FINAL REPORT ? REPORTED: 06/24/15 1144 ? No growth ? ORDER COMMENTS ? (1)Specimen collected in the operating room. ? Specimen received on ? an ESwab.superficial lumbar spine ?* * * ??Interpretive Results ??* * * ? (1)Specimens submitted from normally sterile body sites will have ? all bacterial morphotypes identified. ??Specimens that contain ? grossly mixed bari and/or are from body sites that are not ? normally sterile will be examined for Staphylococcus aureus, ? Pseudomonas aeruginosa, beta-hemolytic strep, ? vancomycin-resistant Enterococcus, Bacteroides fragilis, ? Clostridium perfringens and fungus. ??If any of these are ? isolated, the organism will be reported.Current interpretive ? data was last revised on 2013. ? us Historical Provider MD LAB MICROBIOLOGY - GENERA L ORDERABLES Final Result HISTORICAL RESULTS * All Microbiology Report Section (06/21/2015 12:00 AM SHIPPING CHECKER) 06/21/2015 Narrative HISTORICAL RESULTS - 07/19/2015 1:41 PM SHIPPING CHECKER ? [facility] ?[address] [facility] [address] ?[place], [place] [address] ? Patient Name: ??BERNIE CAREY ? Med Rec Number: [id number] ? Fin Number: ?[id number] ? Date: ?1940 ? Sex/Age: ? Male 74 years ? Admit Date: ?06/20/2015 ? Discharge Date: 06/29/2015 ? Doctor: ?Saud Walker ? Facility: ?[facility] ? Location: ?OTHER ?* Abnormal ??A Alert ??f Footnote ??^ Corrected ??L Low ??H High ?i Interp Data ??@ Ref Lab ? Chart Type:Cumulative ?* * * * MICROBIOLOGY - WOUND and EXUDATES * * * * ?PROCEDURE: Aerobic Culture, Wound and Gram Stain ? SOURCE: Wound ? COLLECTED: 11/19/15 ??1600 ?BODY SITE: Deep ? STARTED: 11/19/15 ??1726 ? FREE TEXT SOURCE: ? DIRECT SPECIMEN EXAMINATION ? Stain ? REPORTED: 06/21/ 191 ? Rare polymorphonuclear leukocytes seen. ? No organisms seen. ? FINAL REPORT ? REPORTED: 06/24/15 1144 ? No growth ? ORDER COMMENTS ? (1)Specimen collected in the operating room. ? Specimen received on ? an ESwab. lumbar spine ?* * * ??Interpretive Results ??* * * ? (1)Specimens submitted from normally sterile body sites will have ? all bacterial morphotypes identified. ??Specimens that contain ? grossly mixed bari and/or are from body sites that are not ? normally sterile will be examined for Staphylococcus aureus, ? Pseudomonas aeruginosa, beta-hemolytic strep, ? vancomycin-resistant Enterococcus and fungus. ??If any of these ? are isolated, the organism will be reported.Current interpretive ? data was last revised on 2013. ? us Historical Provider MD LAB MICROBIOLOGY - GENERA L ORDERABLES Final Result HISTORICAL RESULTS * All Microbiology Report Section (06/21/2015 12:00 AM SHIPPING CHECKER) 06/21/2015 Narrative HISTORICAL RESULTS - 07/19/2015 1:41 PM SHIPPING CHECKER ? [facility] ?[address] [facility] [address] ?[place], [place] [address] ? Patient Name: ??BERNIE CAREY ? Med Rec Number: [id number] ? Fin Number: ?[id number] ? Date: ?1940 ? Sex/Age: ? Male 74 years ? Admit Date: ?06/20/2015 ? Discharge Date: 06/29/2015 ? Doctor: ?Buchowski , Saud M ? Facility: ?[facility] ? Location: ?OTHER ?* Abnormal ??A Alert ??f Footnote ??^ Corrected ??L Low ??H High ?i Interp Data ??@ Ref Lab ? Chart Type:Cumulative ?* * * * MICROBIOLOGY - MISCELLANEOUS * * * * ?PROCEDURE: Aerobic Culture and Gram Stain ? SOURCE: Tissue ? COLLECTED: 11/19/15 ??1636 ?BODY SITE: ? STARTED: 11/19/15 ??1730 ? FREE TEXT SOURCE: ? DIRECT SPECIMEN EXAMINATION ? Stain ? REPORTED: 06/21/15 1914 ? Rare polymorphonuclear leukocytes seen. ? No organisms seen. ? FINAL REPORT ? REPORTED: 06/24/15 1143 ? No growth ? ORDER COMMENTS ? (1)Specimen collected in the operating room. L3 Body ??spine ?* * * ??Interpretive Results ??* * * ? (1)Specimens submitted from normally sterile body sites will have ? all bacterial morphotypes identified. Specimens that contain ? grossly mixed bari and/or are from body sites that are not ? normally sterile will be examined for Staphylococcus aureus, ? Pseudomonas aeruginosa, beta-hemolytic strep, ? vancomycin-resistant Enterococcus and fungus. If any of these ? are isolated, the organism will be reported.Current interpretive ? data was last revised on 2012. ? us Historical Provider LAB MICROBIOLOGY - GENERA L ORDERABLES Final Result HISTORICAL RESULTS * Blood glucose, POC (06/20/2015 9:00 PM SHIPPING CHECKER) Glucose, POC, bld 171 70 - 199 mg/dl HISTORICAL RESULTS Blood specimen (specimen) 06/20/2015 9:00 PM SHIPPING CHECKER us Saud Walker MD LAB BLOOD ORDERABLES F inal Result HISTORICAL RESULTS * CHEST RADIOGRAPHY, FRONTAL (AP), LATERAL (06/20/2015 5:36 PM SHIPPING CHECKER) Anatomical Region Laterality Modality N/A Radiographic Ary ging 06/20/2015 5:36 PM SHIPPING CHECKER Narrative 06/22/2015 8:12 AM SHIPPING CHECKER ZHANE BULL M.D. TRISHA SALAZAR M.D. FINAL REPORT The radiology attending physician has personally reviewed this study, and has reviewed and/or edited this written report and agrees with it. ACC# ??Date Time ??Exam [id number] Jun 20, 2015 17:36:00 [id number] Chest 2 views Front&Lat EXAMINATION: ?? Chest 2 views frontal and lateral IMPRESSION: ?? Comparison is made to previous exam on 01/03/2014 Both lungs are clear. There is no focal consolidation or pleural effusion. There is no pneumothorax. The cardiomediastinal silhouette is stable Requested By: PEMA PALOMARES Dictated By: ?? TRISHA SALAZAR M.D. ??on Jun 21 2015 ??9:52A This document has been electronically signed by: ZHANE BULL M.D. on Jun 22 2015 ??8:12A [id number] Procedure Note Provider, MD Dee - 11/28/2016 ZHANE BULL M.D. TRISHA SALAZAR M.D. FINAL REPORT The radiology attending physician has personally reviewed this study, and has reviewed and/or edited this written report and agrees with it. ACC# Date Time Exam [id number] Jun 20, 2015 17:36:00 [id number] Chest 2 views Front&Lat EXAMINATION: Chest 2 views frontal and lateral IMPRESSION: Comparison is made to previous exam on 01/03/2014 Both lungs are clear. There is no focal consolidation or pleural effusion. There is no pneumothorax. The cardiomediastinal silhouette is stable Requested By: PEMA PALOMARES Dictated By: TRISHA SALAZAR M.D. on Jun 21 2015 9:52A This document has been electronically signed by: ZHANE BULL M.D. on Jun 22 2015 8:12A [id number] us Historical Provider IMG XR PROCEDURES Final R esult * XR Spine Lumbar 2 Or 3 View (06/20/2015 5:36 PM SHIPPING CHECKER) Anatomical Region Laterality Modality Spine N/A Radiographic Ary ging 06/20/2015 5:36 PM SHIPPING CHECKER Narrative 06/21/2015 5:32 AM SHIPPING CHECKER GREGG COREA M.D. FINAL REPORT ACC# ??Date Time ??Exam [id number] Jun 20, 2015 17:36:00 [id number] Spine Lumbar 2 or 3 views EXAMINATION: ?? 1. Lumbar spine 2 or 3 views HISTORY: Lumbar discitis-osteomyelitis FINDINGS: Three view submitted with comparison outside hospital studies 06/17/2015 and 06/15/2015 Redemonstrated are erosions with bone loss disc centered at L2-L3 with associated sclerosis. L1-L3 instrumented posterior spinal fusion is present posterior decompression. There is extensive osteolysis involving the left L3 transpedicular screw. Through L4 may be fused. There is mild L5-S1 degenerative disc disease. Arterial atherosclerosis and prior hernia repair is noted. There are no fractures. IMPRESSION: ?? 1. L2-L3 discitis osteomyelitis. 2. L1-L3 instrumented posterior spinal fusion, with residual motion at L2-L3 and osteolysis involving the left L3 transpedicular screw. Requested By: PEMA PALOMARES Dictated By: ?? GREGG COREA M.D. ??on Jun 21 2015 ??5:32A This document has been electronically signed by: GREGG COREA M.D. on Jun 21 2015 ??5:32A [id number] Procedure Note Provider, MD Dee - 11/28/2016 GREGG COREA M.D. FINAL REPORT ACC# Date Time Exam [id number] Jun 20, 2015 17:36:00 55033 Spine Lumbar 2 or 3 views EXAMINATION: 1. Lumbar spine 2 or 3 views HISTORY: Lumbar discitis-osteomyelitis FINDINGS: Three view submitted with comparison outside hospital studies 06/17/2015 and 06/15/2015 Redemonstrated are erosions with bone loss disc centered at L2-L3 with associated sclerosis. L1-L3 instrumented posterior spinal fusion is present posterior decompression. There is extensive osteolysis involving the left L3 transpedicular screw. Through L4 may be fused. There is mild L5-S1 degenerative disc disease. Arterial atherosclerosis and prior hernia repair is noted. There are no fractures. IMPRESSION: 1. L2-L3 discitis osteomyelitis. 2. L1-L3 instrumented posterior spinal fusion, with residual motion at L2-L3 and osteolysis involving the left L3 transpedicular screw. Requested By: PEMA PALOMARES Dictated By: GREGG COREA M.D. on Jun 21 2015 5:32A This document has been electronically signed by: GREGG COREA M.D. on Jun 21 2015 5:32A [id number] us Historical Provider IMG XR PROCEDURES Final R esult * (ABNORMAL) Plasma partial thromboplastin time (PTT) (06/20/2015 5:15 PM SHIPPING CHECKER) APTT 21.0(L) 25.0 - 37.0 seconds HISTORICAL RESULTS Comment: Interpretive Data Therapeutic heparin range:60.0 - 94.0 sec based on correlation with therapeutic heparin activity range of 0.3 -0.7 Units/mL. Current interpretive data was last revised on 2011. Plasma 06/20/2015 5:15 PM SHIPPING CHECKER us Pema Palomares [employer] LAB BLOOD ORDERABLES Final Res ult HISTORICAL RESULTS * Plasma prothrombin time (PT) (06/20/2015 5:15 PM SHIPPING CHECKER) Prothrombin time (PT) 12.1 9.2 - 13.0 seconds HISTORICAL RESULTS INR 1.12 0.90 - 1.20 HISTORIC AL RESULTS Comment: Interpretive Data Inpatient therapeutic ranges* Atrial fibrillation ?2.0-3.0 INR Venous thrombo-embolism ?2.0-3.0 INR Bioprosthetic heart valve ?* Mechanical heart valve, bileaflet or tilting disk,aortic position ? 2.0-3.0 INR All other,or bileaflet or tilting disk, in mitral position ? 2.5-3.5 INR *See the pharmacy resource directory (PHRED) for an updated copy of the Tool Book at [email or web address]/pharmacy.nsf Current Interpretive Data was last revised 2011. Plasma 06/20/2015 5:15 PM SHIPPING CHECKER us Pema Palomares NP LAB BLOOD ORDERABLES Final Res ult HISTORICAL RESULTS * (ABNORMAL) Blood cell count (CBC) (06/20/2015 5:15 PM SHIPPING CHECKER) WBC 8.6 3.8 - 9.8 K/cumm HISTORICAL RESULTS RBC 4.84 4.50 - 5.70 M/cumm HISTORICAL RESULTS Hgb 13.9 13.8 - 17.2 g/dl HISTORICAL RESULTS Hct 42.7 40.7 - 50.3 % HISTORICAL RESULTS MCV 88.1 80.0 - 97.6 fl HISTORICAL RESULTS MCH 28.7 26.7 - 33.7 pg HISTORICAL RESULTS MCHC 32.6(L) 32.7 - 35.5 g/dl HISTORICAL RESULTS Rdw 15.0(H) 11.8 - 14.6 % HISTORICAL RESULTS Platelets 374 140 - 440 K/cumm HISTORICAL RESULTS MPV 7.9 6.8 - 10.4 fl HISTORICAL RESULTS Neutrophils 65.4 38.7 - 74.5 % HISTORICAL RESULTS Lymphocytes 18.2(L) 20.0 - 54.3 % HISTORICAL RESULTS Monos 13.6(H) 4.3 - 13.5 % HISTORICAL RESULTS Eosinophils 2.4 0.0 - 6.0 % HISTORICAL RESULTS Basophils 0.4 0.0 - 3.0 % HISTORICAL RESULTS Neutrophils, abs 5.6 1.8 - 6.6 K/cumm HISTORICAL RESULTS Lymphocytes, abs 1.6 1.2 - 3.3 K/cumm HISTORICAL RESULTS Monocytes, absolute 1.2 0.2 - 1.2 K/cumm HISTORICAL RESULTS Eosinophils, abs 0.2 0.0 - 0.5 K/cumm HISTORICAL RESULTS Basophils, abs 0.0 0.0 - 0.2 K/cumm HISTORICAL RESULTS Blood specimen (specimen) 06/20/2015 5:15 PM SHIPPING CHECKER Pema Palomares NP LAB BLOOD ORDERABLES Final Res ult Performing Organization Address [facility] de Phone Number HISTORICAL RESULTS * Blood glucose, POC (06/20/2015 5:09 PM SHIPPING CHECKER) Glucose, POC, bld 114 70 - 199 mg/dl HISTORICAL RESULTS Blood specimen (specimen) 06/20/2015 5:09 PM SHIPPING CHECKER Saud Walker MD LAB BLOOD ORDERABLES F inal Result Performing Organization Address [facility] de Phone Number HISTORICAL RESULTS * Blood ABO, Rh, indirect ab screen (06/20/2015 4:13 PM SHIPPING CHECKER) ABO, Rho(D) A Positive HISTORI CAMILA RESULTS Sanju, indirect Negative HISTORICAL RESULTS Blood specimen (specimen) 06/20/2015 4:13 PM SHIPPING CHECKER Pema Palomares NP LAB BLOOD ORDERABLES Final Res ult Performing Organization Address [facility] de Phone Number HISTORICAL RESULTS * (ABNORMAL) Plasma comprehensive metabolic panel (06/20/2015 4:13 PM SHIPPING CHECKER) Sodium 138 135 - 145 mmol/L HISTORICAL RESULTS K, pl 4.5 3.3 - 4.9 mmol/L HISTORICAL RESULTS Chloride 102 97 - 110 mmol/L HISTORICAL RESULTS CO2 25 22 - 32 mmol/L HISTORICAL RESULTS A. gap 11 0 - 16 mmol/L HISTORICAL RESULTS Glucose 106 70 - 199 mg/dl HISTORICAL RESULTS BUN 19 8 - 25 mg/dl HISTORICAL RESULTS Creatinine 1.04 0.70 - 1.30 mg/dl HISTORICAL RESULTS Calcium 9.4 8.6 - 10.3 mg/dl HISTORICAL RESULTS Protein, pl 6.6 6.5 - 8.5 g/dl HISTORICAL RESULTS Alb 3.2(L) 3.6 - 5.0 g/dl HISTORICAL RESULTS Bilirubin 0.2(L) 0.3 - 1.1 mg/dl HISTORICAL RESULTS Alk phos 78 38 - 126 Units/L HISTORICAL RESULTS AST 18 11 - 47 Units/L HISTORICAL RESULTS ALT 27 7 - 53 Units/L HISTORICAL RESULTS Plasma 06/20/2015 4:13 PM SHIPPING CHECKER Pema Palomares NP LAB BLOOD ORDERABLES Final Res ult HISTORICAL RESULTS * ELECTROCARDIOGRAPHY (ECG) (06/20/2015) Narrative 06/20/2015 Ordered by an unspecified provider. Historical Provider ECG ORDERABLES Final Res ult documented in this encounter Visit Diagnoses Diagnosis Infection and inflammatory reaction due to other internal joint prosthesis, initial encounter ([facility]) Acute respiratory failure ([facility]) Acute respiratory failure Other pulmonary embolism without acute cor pulmonale ([facility]) Shock ([facility]) (HCC) Unspecified shock Embolism and thrombosis of left femoral vein ([facility]) Acute posthemorrhagic anemia Acidosis Pseudarthrosis after fusion or arthrodesis Arthrodesis status Osteomyelitis of vertebra of lumbar region ([facility]) Collapsed vertebra, not elsewhere classified, lumbar region, initial encounter for fracture ([facility]) Embolism and thrombosis of left popliteal vein ([facility]) Body mass index (BMI) of 40.0-44.9 in adult ([facility]) Broken internal joint prosthesis, other site, initial encounter ([facility]) Discitis of lumbar region Other and unspecified disc disorder of lumbar region Paroxysmal atrial fibrillation (CMS/HCC) (HCC) Atrial fibrillation Essential (primary) hypertension Unspecified essential hypertension 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
--- OUTSIDE RECORDS SUMMARY | 2024-07-24 00:12 | XMS_ITS | Encounter Summary ---
Author Organization [facility] Facility Care Team Providers Care Watchmaker Apprentice Name Role Phone Unavailable Primary Care Provider Unavailabl e Encounter Details Date Type Department Care Team (Late st Contact Info) Description 08/01/2015 - 08/01/2015 11:59 PM WIRE WHEELER Hospital Encounter [facility] Saud Lorenzana MD [address] [facility] /[place] [address] Social History Tobacco Use Types Packs/Day Years Used Date Smoking Tobacco: Never Assessed Sex and Gender Information Value Date Recorded Sex Assigned at Not on file Legal Sex Male 3:18 AM WIRE WHEELER Gender Identity Not on file Sexual Orientation Not on file documented as of this encounter Plan of Treatment Not on file documented as of this encounter Visit Diagnoses Not on filedocumented in this encounter
--- OUTSIDE RECORDS SUMMARY | 2024-07-24 00:12 | XMS_ITS | Encounter Summary ---
Author Organization [facility] Facility Care Team Providers Care Hop Separator Name Role Phone Unavailable Primary Care Provider Unavailabl e Encounter Details Date Type Department Care Team (Late st Contact Info) Description 08/01/2015 - 08/01/2015 11:59 PM ARMATURE TESTER [facility] [address] [facility] [address] [place] [address] Osteomyelitis of vertebra ([facility]) Social History Tobacco Use Types Packs/Day Years Used Date Smoking Tobacco: Never Assessed Sex and Gender Information Value Date Recorded Sex Assigned at Not on file Legal Sex Male 3:18 AM ARMATURE TESTER Gender Identity Not on file Sexual Orientation Not on file documented as of this encounter Plan of Treatment Not on file documented as of this encounter Procedures Procedure Name Priority Date/Time Associated Diagnosis Comments XR SPINE LUMBAR 2 OR 3 VIEWS Routine 08/01/2015 1:49 PM ARMATURE TESTER documented in this encounter Results * XR Spine Lumbar 2 Or 3 View (08/01/2015 1:49 PM ARMATURE TESTER) Anatomical Region Laterality Modality Spine N/A Radiographic Ary ging 08/01/2015 1:49 PM ARMATURE TESTER Narrative 08/01/2015 2:05 PM ARMATURE TESTER ALMA DELIA CUMMINGS M.D. FINAL REPORT ACC# ??Date Time ??Exam [id number] Aug 01, 2015 13:49:00 [id number] Spine Lumbar 2 or 3 views EXAMINATION: ?Lumbar spine 2 or 3 views HISTORY: ??L2-L3 spondylodiscitis and pseudoarthrosis FINDINGS: ?? AP and lateral views of the lumbar spine are correlated with CT from 06/26/2015 and radiographs from 06/20/2015. There has been revision posterior decompression and instrumented posterior fusion, now spanning L1-L4. L2-L3 corpectomies have been performed, with new interbody bone grafting. 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 Mild L4-L5 and L5-S1 degenerative disc disease is noted. There is a new inferior vena cava filter. The aorta contains atherosclerotic calcifications. There has been mesh hernia repair in the left lower quadrant. IMPRESSION: ?? 1. Revision posterior decompression and instrumented posterior fusion from L1-L4, with L2 and L3 corpectomies and bone grafting. Requested By: JANE MARINELLI M.D. Dictated By: ?? ALMA DELIA CUMMINGS M.D. ??on Aug 01 2015 ??2:05P This document has been electronically signed by: ALMA DELIA CUMMINGS M.D. on Aug 01 2015 ??2:05P [id number] Procedure Note Provider, MD Dee - 11/28/2016 ALMA DELIA CUMMINGS M.D. FINAL REPORT ACC# Date Time Exam [id number] Aug 01, 2015 13:49:00 [id number] Spine Lumbar 2 or 3 views EXAMINATION: Lumbar spine 2 or 3 views HISTORY: L2-L3 spondylodiscitis and pseudoarthrosis FINDINGS: AP and lateral views of the lumbar spine are correlated with CT from 06/26/2015 and radiographs from 06/20/2015. There has been revision posterior decompression and instrumented posterior fusion, now spanning L1-L4. L2-L3 corpectomies have been performed, with new interbody bone grafting. 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 Mild L4-L5 and L5-S1 degenerative disc disease is noted. There is a new inferior vena cava filter. The aorta contains atherosclerotic calcifications. There has been mesh hernia repair in the left lower quadrant. IMPRESSION: 1. Revision posterior decompression and instrumented posterior fusion from L1-L4, with L2 and L3 corpectomies and bone grafting. Requested By: JANE MARINELLI M.D. Dictated By: ALMA DELIA CUMMINGS M.D. on Aug 01 2015 2:05P This document has been electronically signed by: ALMA DELIA CUMMINGS M.D. on Aug 01 2015 2:05P [id number] us Historical Provider MD YO XR PROCEDURES Final R esult documented in this encounter Visit Diagnoses Diagnosis Osteomyelitis of vertebra (HCC) documented in this encounter
--- OUTSIDE RECORDS SUMMARY | 2024-07-24 00:12 | XMS_ITS | Encounter Summary ---
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 FINAL REPORT ACC# ??Date Time ??Exam [id number] Jan 30, 2016 10:32:00 [id number] Spine Lumbar min 4 views [id number] Jan 30, 2016 10:32:00 [id number] Scoli T/L spine 2-3 v EXAMINATION: ?? 1. Entire spine 2 or 3 views 2. Lumbar spine minimum 4 views HISTORY: Lumbar discitis-osteomyelitis FINDINGS: Two views of the thoracolumbar spine are supplemented by 5 dedicated views of the lumbar spine with comparison 11/14/2015. Redemonstrated is a revision L1-L4 instrumented posterior spinal fusion with L2-L3 corpectomies and bone grafting. The overall appearance is unchanged in comparison to prior exam. There is no evidence of new instrumentation failure. Mild L4-S1 degenerative disc disease is present. 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 There is no coronal imbalance. Mild. Positive sagittal imbalance is present. Knee arthroplasties, inferior vena cava filter, hernia repair, hip osteoarthritis, an arterial atherosclerosis is noted. IMPRESSION: ?? 1. Unchanged revision L1-L4 instrumented posterior spinal fusion with L2-L3 corpectomies and grafting for management of discitis-osteomyelitis. Requested By: JANE MARINELLI M.D. Dictated By: ?? GREGG COREA M.D. ??on Jan 30 2016 10:59A This document has been electronically signed by: GREGG COREA M.D. on Jan 30 2016 10:59A [id number] Procedure Note Provider, MD Dee - 11/28/2016 GREGG COREA M.D. FINAL REPORT ACC# Date Time Exam [id number] Jan 30, 2016 10:32:00 18094 Spine Lumbar min 4 views [id number] Jan 30, 2016 10:32:00 [id number] Scoli T/L spine 2-3 v EXAMINATION: 1. Entire spine 2 or 3 views 2. Lumbar spine minimum 4 views HISTORY: Lumbar discitis-osteomyelitis FINDINGS: Two views of the thoracolumbar spine are supplemented by 5 dedicated views of the lumbar spine with comparison 11/14/2015. Redemonstrated is a revision L1-L4 instrumented posterior spinal fusion with L2-L3 corpectomies and bone grafting. The overall appearance is unchanged in comparison to prior exam. There is no evidence of new instrumentation failure. Mild L4-S1 degenerative disc disease is present. 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 There is no coronal imbalance. Mild. Positive sagittal imbalance is present. Knee arthroplasties, inferior vena cava filter, hernia repair, hip osteoarthritis, an arterial atherosclerosis is noted. IMPRESSION: 1. Unchanged revision L1-L4 instrumented posterior spinal fusion with L2-L3 corpectomies and grafting for management ofdiscitis-osteomyelitis. Requested By: JANE MARINELLI M.D. Dictated By: GREGG COREA M.D. on Jan 30 2016 10:59A This document has been electronically signed by: GREGG COREA M.D. on Jan 30 2016 10:59A [id number] us Historical Provider IMG XR PROCEDURES Final R esult * XR Spine (Entire) non wt 1 View (01/30/2016 10:32 AM CDT) Anatomical Region Laterality Modality Spine N/A Radiographic Ary ging 01/30/2016 10:3 2 AM CDT Narrative 01/30/2016 10:59 AM CDT GREGG COREA M.D. FINAL REPORT ACC# ??Date Time ??Exam [id number] Jan 30, 2016 10:32:00 34514 Spine Lumbar min 4 views [id number] Jan 30, 2016 10:32:00 59381 Scoli T/L spine 2-3 v EXAMINATION: ?? 1. Entire spine 2 or 3 views 2. Lumbar spine minimum 4 views HISTORY: Lumbar discitis-osteomyelitis FINDINGS: Two views of the thoracolumbar spine are supplemented by 5 dedicated views of the lumbar spine with comparison 11/14/2015. Redemonstrated is a revision L1-L4 instrumented posterior spinal fusion with L2-L3 corpectomies and bone grafting. The overall appearance is unchanged in comparison to prior exam. There is no evidence of new instrumentation failure. Mild L4-S1 degenerative disc disease is present. 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 There is no coronal imbalance. Mild. Positive sagittal imbalance is present. Knee arthroplasties, inferior vena cava filter, hernia repair, hip osteoarthritis, an arterial atherosclerosis is noted. IMPRESSION: ?? 1. Unchanged revision L1-L4 instrumented posterior spinal fusion with L2-L3 corpectomies and grafting for management of discitis-osteomyelitis. Requested By: JANE MARINELLI M.D. Dictated By: ?? GREGG COREA M.D. ??on Jan 30 2016 10:59A This document has been electronically signed by: GREGG COREA M.D. on Jan 30 2016 10:59A [id number] Procedure Note Provider, MD Dee - 11/28/2016 GREGG COREA M.D. FINAL REPORT ACC# Date Time Exam [id number] Jan 30, 2016 10:32:00 [id number] Spine Lumbar min 4 views [id number] Jan 30, 2016 10:32:00 [id number] Scoli T/L spine 2-3 v EXAMINATION: 1. Entire spine 2 or 3 views 2. Lumbar spine minimum 4 views HISTORY: Lumbar discitis-osteomyelitis FINDINGS: Two views of the thoracolumbar spine are supplemented by 5 dedicated views of the lumbar spine with comparison 11/14/2015. Redemonstrated is a revision L1-L4 instrumented posterior spinal fusion with L2-L3 corpectomies and bone grafting. The overall appearance is unchanged in comparison to prior exam. There is no evidence of new instrumentation failure. Mild L4-S1 degenerative disc disease is present. 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 There is no coronal imbalance. Mild. Positive sagittal imbalance is present. Knee arthroplasties, inferior vena cava filter, hernia repair, hip osteoarthritis, an arterial atherosclerosis is noted. IMPRESSION: 1. Unchanged revision L1-L4 instrumented posterior spinal fusion with L2-L3 corpectomies and grafting for management ofdiscitis-osteomyelitis. Requested By: JANE MARINELLI M.D. Dictated By: GREGG COREA M.D. on Jan 30 2016 10:59A This document has been electronically signed by: GREGG COREA M.D. on Jan 30 2016 10:59A [id number] Historical Provider MD OSORIOG XR PROCEDURES Final R esult documented in this encounter Visit Diagnoses Diagnosis Osteomyelitis of vertebra of lumbar region (HCC) documented in this encounter
--- OUTSIDE RECORDS SUMMARY | 2024-07-24 00:12 | XMS_ITS | Encounter Summary ---
Author Organization [facility] Facility Care Team Providers Care Collator Name Role Phone Unavailable Primary Care Provider Unavailabl e Encounter Details Date Type Department Care Team (Latest Contact Info) Description 06/18/2015 11:05 AM SLATE HANDLER - 06/20/2015 2:45 PM [facility] Hospital Encounter [facility] Anna Johnson MD [address] [place] [id number] Infection and inflammatory reaction due to other internal orthopedic prosthetic devices, implants and grafts, initial encounter (HCC); Intraspinal abscess and granuloma; Body mass index (BMI) of 40.0-44.9 in adult (CMS/HCC); Osteomyelitis of vertebra of lumbar region ([facility]/HCC); Type 2 diabetes mellitus with hyperglycemia ([facility]); Morbid (severe) obesity due to excess calories ([facility]); Discitis of lumbar region; Spinal stenosis of lumbar region; Essential (primary) hypertension; Type 2 diabetes mellitus with retinopathy without macular edema ([facility]); Hyperlipidemia; Enlarged prostate without lower urinary tract symptoms (luts); Low back pain; Other chronic pain; Claustrophobia; Constipation; Visual loss; Acquired absence of spleen; Presence of both artificial knee joints; correction current use of insulin (CMS/HCC); Personal history of nicotine dependence; Acquired partial absence of pancreas; Surgical operation with implant of artificial internal device as the cause of abnormal reaction of patient or of later complication; Unspecified place or not applicable; Personal history of irradiation Social History Tobacco Use Types Packs/Day Years Used Date Smoking Tobacco: Never Assessed Sex and Gender Information Value Date Recorded Sex Assigned at Not on file Legal Sex Male 3:18 AM SLATE HANDLER Gender Identity Not on file Sexual Orientation Not on file documented as of this encounter Last Filed Vital Signs Vital Sign Reading Time Taken Comments Blood Pressure 101/65 06/20/2015 8:27 AM SLATE HANDLER Pulse 82 06/20/2015 8:27 AM SLATE HANDLER Temperature - - Respiratory Rate - - Oxygen Saturation - - Inhaled Oxygen Concentration - - Weight 142.9 kg (314 lb 15.9 oz) 06/15/2015 4:09 PM SLATE HANDLER Height 188 cm (6' 2.02 ) 06/15/2015 4:09 PM SLATE HANDLER Body Mass Index 40.43 06/15/2015 4:09 PM SLATE HANDLER documented in this encounter Discharge Summaries * Provider, MD Dee - 06/20/2015 12:00 AM CST Patient: BERNIE CAREY Account: [id number] Room No: 1410-B : 1940 Proc. Date: Attending: ANNA JOHNSON MD Admit Date: 06/15/2015 Dictating: ALLY MAHONEY Disch. Date: 06/20/2015 Patient Type: IP Reason for Admission: Acute back pain, to rule out infection. Hospital Course: After complete testing with MRI, CT scan, and disk aspiration with biopsy at level L2-3 which shows that the patient has an erosion and possible diskitis. Further laboratory values and testing indicate that infection was ruled out; however, based on radiology examination, there is significant disk collapse and erosion of L2-3 with a large amount of fluid collection anteriorly, which creates a severe spinal stenosis. Given the anatomy of the patient, extensive surgery would be required to help correct this. Dr Johnson has discussed this case with Dr Saud Walker at [place] and he has agreed to take the patient upon transfer for further surgical evaluation. Discharge Medications (Refer to Medication Reconciliation Sheet): Electronically Authenticated by: Anna Johnson MD On 06/22/2015 09:07 AM SLATE HANDLER ANNA JOHNSON MD Dictated by: ALLY MAHONEY SP/mt TD: 06/21/2015 20:29 documented in this encounter Consult Notes * Provider, MD Dee - 06/16/2015 12:00 AM CST Patient: BERNIE CAREY Account: [id number] Room No: 2415-A : 1940 Consult Date: 06/16/2015 Attending: ANNA JOHNSON MD Admit Date: 06/15/2015 Consult.: NIK AWAD M.D. Disch. Date: Patient Type: SDS Reason for Consultation: I have been asked by Dr Johnson to see Mr Carey to treat and evaluate his diabetes, hypertension, and any other chronic medical problems. History of Present Illness: Mr Carey is a very pleasant 74-year-old male who had been developing worsening back pain. He was seen by Dr Johnson for this reason, and there were findings concerning for diskitis. He was admitted to the hospital for further evaluation since yesterday. Regarding patient's diabetes, we reviewed his regimen at home. He uses Lantus 45 in the evening and provides himself Humalog 5 with meals. Notably this is different than what the hospital medication reconciliation suggests, and I believe the medication reconciliation is wrong. He says overall he has fairly good control with this, occasionally gets some lows. Other than the worsening back pain, he has been overall in reasonably good state of health. He has not had any nausea or vomiting. He has been eating reasonably well. There has not been any abdominal pains. Regarding his hypertension, he takes lisinopril regularly for this, and he has not had any problems with low blood pressures. He has had no lightheadedness or dizziness. Past Medical History: 1. Diabetes type 2, onset after 2010, after he had a partial pancreatectomy. He has been insulin dependent since. 2. 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 3. Incisional hernia related to above surgery, that was later repaired with mesh. 4. Hypertension. 5. Hyperlipidemia. 6. BPH. 7. Chronic lower back pain. 8. Claustrophobia, especially with MRIs. 9. Neuropathy not thought to be related to his diabetes. 10. Vision impairment. 11. Bilateral total knee replacements. 12. Rotator cuff surgery. 13. No known history of coronary artery disease, CHF, or chronic lung disease. Allergies to Medications: None. Home Medications: 1. Humalog 5 units with meals plus a correction. 2. Lantus 45 at bedtime typically. 3. Lisinopril 40 daily. 4. Lyrica 50, 3 times a day. 5. Simvastatin 40 at bedtime. 6. Flomax 0.4 daily. 7. Percocet 1 to 2 every 4 hours as needed for pain. Family History: No history of any bleeding disorders or DVTs. Social History: Patient is retired. He is a remote smoker. He quit over 40 years ago. He used to smoke 2 to 3 packs per day and did so for about 10 to 15 years. He lives with his in [place], [place]. Review of Systems: Constitutional: No recent changes in weight. He does not recognize any fevers, chills, or night sweats. HEENT: No sinus congestion. No sore throat. No problem swallowing. Neck: No pain. No masses. Cardiovascular: No chest pain, no chest tightness, no palpitations. Respiratory: No shortness of breath. No coughing. Gastrointestinal: He has had a reasonably good appetite. No nausea, no vomiting, no abdominal pain. Genitourinary: No recent frequency or dysuria. Skin: No rashes, ulcers, or itching. Neurologic: No focal numbness, tingling, or weakness. Musculoskeletal: Worsening back pain as already described. Endocrine: No evidence of polydipsia or polyuria. Physical Examination: Vital Signs: Since presentation to hospital, he has been without any fevers. His highest temperature has been 98.1, blood pressure today 127/54, heart rate 60, respiratory rate 18, and saturating 98 percent on room air. General: The patient lying in bed. He is alert and oriented, conversant, and pleasant. He seems like a fairly good historian. He is somewhat obese. HEENT: Symmetrical facial features. No scleral icterus. Pupils are equal. Neck: No bruits or lymphadenopathy. Cardiovascular: Regular rate and rhythm, no rubs, no murmurs. Palpable pulses upper and lower extremities. Respiratory: Normal effort. Clear to auscultation. Abdomen: Active bowel sounds, soft, nontender. He probably has a small hernia, soft and easily reducible. He has his old scars, nothing acute noted. Extremities: No substantial edema, clubbing, or cyanosis. Skin: Nothing unusual noted. Laboratory Data: He had CRP that was 6. He had a BMP done yesterday that showed BUN and creatinine of 26 and 1.10. His glucose was 156. His electrolytes were normal. INR yesterday 1.0. CBC yesterday showed a white count of 11.6, hemoglobin 16, platelets 400,000 today, and 82.6 percent neutrophils. Glucose done last night was 260, and this morning it was 92. Imaging Data: He had a lumbar spine CT done June 15, 2015, that was concerning for destructive process centered at L2-L3 disk space level with a lucency around the left pedicular screw concerning for osteo-diskitis and infection. Assessment and Plan: Mr Carey is a 74-year-old male with likely a diskitis related to previous back surgery. He has type 2 diabetes which will require close monitoring in the hospital. 1. Type 2 diabetes, uncontrolled. I will place him on a basal bolus correction regimen. He had already gotten 36 units of insulin last night, Lantus. In this light, I will start him on just 6 units of Humalog with meals today. I will start him on 20 units of Lantus tonight. Then tomorrow I will likely increase his prandial insulin to about 11 to 13 units with meals depending on glucoses between today and tomorrow. Medium correction will be employed as well. 2. Hypertension. His blood pressures at this time are within adequate goal range. I would just continue the lisinopril. If he requires going to surgery, we should probably hold in the perioperative period to reduce risk for hypotension. 3. Benign prostatic hypertrophy (BPH). I would continue the patient's Flomax. 4. Hyperlipidemia. I would continue his statin to help reduce his risk for cardiovascular complications. Electronically Authenticated and Edited by: Nik Awad M.D. On 06/17/2015 05:35 PM SLATE HANDLER NIK AWAD M.D. Dictated by: NIK AWAD M.D. /mt TD: 06/16/2015 16:44 CC: MD MYRON NUNEZ M.D. * Provider, MD Dee - 06/15/2015 12:00 AM CST Patient: BERNIE CAREY Account: [id number] Room No: 2415-A : 1940 Consult Date: 06/15/2015 Attending: ANNA JOHNSON MD Admit Date: 06/15/2015 Consult.: GREGG MORA MD Disch. Date: Patient Type: SDS IDENTIFYING DATA/REASON FOR CONSULTATION: Mr. Carey is a medical complicated 74 year old man who is seen in Infectious Disease consultation at the request of Dr. Johnson for opinion and advice regarding an acute illness with lower back pain and evidence of possible infection in that location. Mr. Carey has a history of lower back pain and spinal stenosis and in January 2014 he underwent spinal surgeries by Dr. Johnson and Dr. Camacho. He says that he continued to have lower back pain after these surgeries, and had radiation of pain to his legs, and he underwent a series of injections into or near his spine starting around six months ago and ending two months ago. Around ten days ago, he started to have more back pain that was different. The pain was more severe. It was lower in his spine than the earlier back pain had been located. It was worsened by efforts to stand up and he had to use a walker He was in a local emergency room about four days ago. He is reported to have had an ESR of 4 at that time. He recalls having a scan and being given a pain injection. He does not report being on any antibiotics. He has not been running a fever as far as he knows. His weight has been stable. He denies stroke, seizure or syncope. He denies skin rash or sores. He is not aware of swollen lymph glands or abnormal bruising or bleeding. He had some aching in his knees. He has bilateral knee prosthesis. The joints have not become stiff or either hot. He denies sore throat, ear ache or eye pain but says he has swelling in his eyes. He reports getting a series of retinol injections that help his vision but do not make it normal. He says the problem started before he was found to have diabetes. He denies heart trouble, chest pain, cough or trouble breathing. He denies abdominal pain, nausea, vomiting, or rectal bleeding. He had some constipation before the emergency room visit four days ago, but not since then. He denies dysuria or hematuria. He says he started to have diabetes mellitus after he had pancreatic surgery several years ago. He also has hypertension and hyperlipidemia. He is not reported to have a history of thyroid disease. PAST MEDICAL HISTORY: ALLERGIES: No known medication allergy. MEDICATIONS: 1. Insulin sliding scale. 2. Glucagon as needed. 3. Pain medication. HOSPITALIZATIONS AND SURGERIES: 1. Right knee replacement 2006. 2. Left knee replacement 2009. 3. Incisional hernia. 4. Rotator cuff surgery. 5. August 2010 pancreatic surgery at [facility] with distal pancreatectomy plus splenectomy. 06 January 2014 - lumbar spine surgery with laminectomy, fasciectomy, foraminotomy, removal of disc herniation, pedicle screw fixation and posterolateral fusion. 7 Lumbar spine injections for pain control from around six months ago to around two months ago. 8 Retinol injections. FAMILY HISTORY: Grandmother had diabetes. Mother of a blood clot following coronary artery surgery. Father with an aneurysm. SOCIAL HISTORY: Mr. Carey is and lives in [place], [place]. He says he stopped smoking around thirty-five years ago. He does not drink alcohol every day and never drinks more than two beers in a day. He denies illicit drug use. He goes to [employer]. PHYSICAL EXAMINATION: VITAL SIGNS: Blood pressure 139/69, pulse 66, respirations 16, temperature 97.9, oxygen saturation 100% on room air. GENERAL: Mr. Carey is a morbidly obese elderly white man sitting in a chair. NODES: No palpable lymph nodes in cervical, supraclavicular or axillary areas. SKIN: No rash or ulcers in accessible portions. MUSCULOSKELETAL: The surgical scars overlying both knees and the lumbar spine are all well healed and free of ulceration, swelling, tenderness, erythema or heat. ENT: Normal oropharynx, pupils, irises, conjunctivae, external ears normal. LUNGS: The lungs were clear to auscultation and percussion. CARDIAC EXAM: Heart tones are faint. The heart rhythm is indeterminant upon auscultation. ABDOMINAL EXAM: The abdomen is protuberant. The bowel sounds are distant. On palpation, there is no tenderness or guarding. GENITALIA/RECTAL: Not performed at preference of Mr. Carey. NEUROLOGIC: Mr. Carey is alert and answers questions appropriately. He does not rise from his chair. DATA: Mr. Carey had a CT scan of the lumbar spine at [facility] earlier today and I looked at images from that scan. The radiologist reports evidence of prior spinal surgery with a destructive process centered at the L2-L3 disc space and lucency around the left pedicular screw at L3 concerning for osteo discitis and infection . The blood tests from the emergency room visit several days ago are not visible on the Clinical Desktop. No blood test results from today are available either. INFECTIOUS DISEASE DIAGNOSES: 1. New and worse lower back pain with CT scan abnormalities strongly suggestive of discitis and acute osteomyelitis at the L2-L3 level and infection of the pedicle screw. 2. Diabetes mellitus. 3. Morbid obesity. 4. Incomplete database. DISCUSSION: I will discuss the case of this medically complicated man with Dr. Johnson and will initiate diagnostic testing and therapy with his permission. Mr. Carey had lumbar spine surgery in January 2014. While he continued to have lower back pain, in the last ten days or so he has developed lower back pain in a different location, lower in his spine than his earlier pain. The pain is also worse and is associate with standing. He had a CT earlier today which shows abnormalities very suggestive of discitis, osteomyelitis, and infection of the pedicle screw. I will order blood tests as well as blood culture. Percutaneous aspiration of the suspicious area on the scan is indicated and material should be sent for cultures, after which Mr. Carey will be started on intravenous antibiotics. The choice of antibiotic may be altered in the future depending upon the results of cultures, other laboratory tests, and Mr. Carey's clinical course. Thank you for letting me participate in Mr. Carey's care. Electronically Authenticated by: Gregg Mora MD On 06/16/2015 12:08 PM SLATE HANDLER GREGG MORA MD Dictated by: GREGG MORA MD MG/mp TD: 06/16/2015 07:09 documented in this encounter Miscellaneous Notes * Admission Note - Provider, MD Dee - 06/15/2015 12:00 AM CST Patient: BERNIE CAREY Account: [id number] Room No: 2415-A : 1940 Admit Date: 06/15/2015 Attending: ANNA JOHNSON MD Disch. Date: Dictating: ANNA JOHNSON MD Patient Type: SDS The patient is a 9-year-old gentleman admitted for further evaluation of an abnormal CT scan with pain in the lumbar area. The patient originally underwent a lumbar decompression and fusion in January for rapidly progressive weakness due to spinal stenosis. He underwent decompression and fusion from L1-2 to L2-3, and postoperatively improved. He was last seen in the office in November of 2014 where it was generally better but still had some residual anterior thigh pain, however he was doing fairly well but then presented to the emergency room 06/11/15 with abdominal pain and back pain. CT scan of the lumbar area was abnormal in the vicinity of the previous fusion but there was really not a study adequate to determine this fully. It should be noted however that his sed rate at that time was 4. Subsequently he underwent a CT scan and I was notified by [facility] reading radiologists, that there were significant abnormalities at L2-3 and he is therefore admitted for further evaluation. When I saw him in the office on 06/12 he was having a considerable amount of lower lumbar pain but actually his pain today is better. PAST MEDICAL HISTORY: Notable for hypertension, diabetic retinopathy, insulin dependent diabetes mellitus. PAST SURGICAL HISTORY: Right rotator cuff repair in 2004, total knee replacement right in 2006, left in 2009, pancreatic exploration in 2010. ALLERGIES: None. CURRENT MEDICATIONS: 1 Simvastatin. 2 Lisinopril. 3 Lyrica. 4 Tamsulosin. 5 Percocet 3/325 four times a day. SOCIAL HISTORY: He is a nonsmoker, nondrinker. PHYSICAL EXAMINATION: On examination he is alert and fully oriented. Range of motion of the lumbar spine is fairly good. He is able to stand. I do not detect any tenderness in the upper lumbar area. There is some slight tenderness in the SI area bilaterally. Motor examination is intact. There is scattered sensory loss distally in the lower extremities consistent with neuropathy. Reflexes are hypoactive but symmetric. DIAGNOSTIC STUDIES: CT scan from [place] is reviewed with Dr. Miller. There is lytic appearing lesion between L2 and 3. There does not appear to be any significant canal compromise. Sed rate from 06/11 is 4. TREATMENT RECOMMENDATIONS: I am going to obtain a biopsy of this area and have asked Dr. Mora to see the patient in case there is some sort of occult infection. Electronically Authenticated by: Anna Johnson MD On 06/19/2015 02:27 PM SLATE HANDLER ANNA JOHNSON MD DK/dl TD: 06/15/2015 16:44 documented in this encounter Plan of Treatment Not on file documented as of this encounter Procedures Procedure Name Priority Date/Time Associated Diagnosis Comments BLOOD GLUCOSE Routine 06/20/2015 11:57 AM SLATE HANDLER BLOOD GLUCOSE Routine 06/20/2015 6:07 AM SLATE HANDLER DISCHARGE LABORATORY CUMULATIVE REPORT 06/20/2015 BLOOD GLUCOSE Routine 06/19/2015 9:07 PM SLATE HANDLER BLOOD GLUCOSE Routine 06/19/2015 4:52 PM SLATE HANDLER BLOOD GLUCOSE Routine 06/19/2015 12:06 PM SLATE HANDLER BLOOD GLUCOSE Routine 06/19/2015 6:26 AM SLATE HANDLER PLASMA BASIC METABOLIC PANEL Routine 06/19/2015 4:47 AM SLATE HANDLER BLOOD CELL COUNT (CBC), MORPHOLOGIC EXAM Routine 06/19/2015 4:47 AM SLATE HANDLER BLOOD GLUCOSE Routine 06/18/2015 9:17 PM SLATE HANDLER BLOOD GLUCOSE Routine 06/18/2015 5:17 PM SLATE HANDLER CHEST, ABDOMINAL COMPUTED TOMOGRAPHY (CT) WITH CONTRAST Routine 06/18/2015 2:04 PM SLATE HANDLER BLOOD GLUCOSE Routine 06/18/2015 12:03 PM SLATE HANDLER SERUM PROTEIN ELECTROPHORESIS Routine 06/18/2015 9:37 AM SLATE HANDLER BLOOD GLUCOSE Routine 06/18/2015 6:41 AM SLATE HANDLER PLASMA BASIC METABOLIC PANEL Routine 06/18/2015 4:27 AM SLATE HANDLER BLOOD ERYTHROCYTE SEDIMENTATION RATE (ESR) Routine 06/18/2015 4:27 AM SLATE HANDLER BLOOD CELL COUNT (CBC), MORPHOLOGIC EXAM Routine 06/18/2015 4:27 AM SLATE HANDLER BLOOD GLUCOSE Routine 06/17/2015 9:21 PM SLATE HANDLER BLOOD GLUCOSE Routine 06/17/2015 4:43 PM SLATE HANDLER PLASMA VANCOMYCIN, TROUGH DRUG LEVEL Routine 06/17/2015 2:30 PM SLATE HANDLER KNEE RADIOGRAPHY, FRONTAL (AP), LATERAL, OBLIQUE Routine 06/17/2015 1:04 PM SLATE HANDLER MRI LUMBAR SPINE W WO CONTRAST Routine 06/17/2015 12:45 PM SLATE HANDLER BLOOD GLUCOSE Routine 06/17/2015 11:23 AM SLATE HANDLER BLOOD GLUCOSE Routine 06/17/2015 6:17 AM SLATE HANDLER PLASMA BASIC METABOLIC PANEL Routine 06/17/2015 5:32 AM SLATE HANDLER BLOOD CELL COUNT (CBC), MORPHOLOGIC EXAM Routine 06/17/2015 5:32 AM SLATE HANDLER BLOOD GLUCOSE Routine 06/17/2015 12:41 AM SLATE HANDLER BLOOD GLUCOSE Routine 06/16/2015 8:42 PM SLATE HANDLER BLOOD GLUCOSE Routine 06/16/2015 5:11 PM SLATE HANDLER BLOOD GLUCOSE Routine 06/16/2015 12:24 PM SLATE HANDLER BLOOD GLYCATED HEMOGLOBIN Routine 06/16/2015 8:11 AM SLATE HANDLER BLOOD GLUCOSE Routine 06/16/2015 6:19 AM SLATE HANDLER BLOOD GLUCOSE Routine 06/15/2015 8:33 PM SLATE HANDLER URINALYSIS Routine 06/15/2015 6:50 PM SLATE HANDLER DISCOGRAPHY LUMBAR Routine 06/15/2015 5: 24 PM SLATE HANDLER PLASMA PROTHROMBIN TIME (PT) Routine 06/15/2015 3:51 PM SLATE HANDLER PLASMA PARTIAL THROMBOPLASTIN TIME (PTT) Routine 06/15/2015 3:51 PM SLATE HANDLER PLASMA C-REACTIVE PROTEIN Routine 06/15/2015 3:51 PM SLATE HANDLER PLASMA BASIC METABOLIC PANEL Routine 06/15/2015 3:51 PM SLATE HANDLER BLOOD HEMOGLOBIN A1C Routine 06/15/2015 3:51 PM SLATE HANDLER BLOOD ERYTHROCYTE SEDIMENTATION RATE (ESR) Routine 06/15/2015 3:51 PM SLATE HANDLER BLOOD CELL COUNT (CBC), MORPHOLOGIC EXAM Routine 06/15/2015 3:51 PM SLATE HANDLER AFB CULTURE AND SMEAR MICROBIOLOGY Routine 06/15/2015 12:00 AM SLATE HANDLER BLOOD MICROBIOLOGY Routine 06/15/2015 12 :00 AM SLATE HANDLER STERILE FLUID MICROBIOLOGY Routine 06/15/2015 12:00 AM SLATE HANDLER MYCOLOGY MICROBIOLOGY Routine 06/15/2015 12:00 AM SLATE HANDLER METHICILLIN RESISTANT STAPHYLOCOCCUS AUREUS, PCR, MICROBIOLOGY Routine 06/15/2015 12:00 AM SLATE HANDLER documented in this encounter Results * Blood glucose (06/20/2015 11:57 AM SLATE HANDLER) Glucose, POC, bld 139 70 - 140 mg/dl HISTORICAL RESULTS Blood specimen (specimen) 06/20/2015 11:57 AM SLATE HANDLER Anna Johnson MD LAB BLOOD ORDERABLES Final R [facility] Performing Organization Address [facility] de Phone Number HISTORICAL RESULTS * Blood glucose (06/20/2015 6:07 AM SLATE HANDLER) Glucose, POC, bld 127 70 - 140 mg/dl HISTORICAL RESULTS Blood specimen (specimen) 06/20/2015 6:07 AM SLATE HANDLER Anna Johnson MD LAB BLOOD ORDERABLES Final R [facility] Performing Organization Address [facility] de Phone Number HISTORICAL RESULTS * DISCHARGE LABORATORY CUMULATIVE REPORT (06/20/2015) Narrative 06/20/2015 Ordered by an unspecified provider. Historical Provider LAB BLOOD ORDERABLES Ruth l Result * Blood glucose (06/19/2015 9:07 PM SLATE HANDLER) Glucose, POC, bld 126 70 - 140 mg/dl HISTORICAL RESULTS Blood specimen (specimen) 06/19/2015 9:07 PM SLATE HANDLER Anna Johnson MD LAB BLOOD ORDERABLES Final R [facility] Performing Organization Address [facility] de Phone Number HISTORICAL RESULTS * Blood glucose (06/19/2015 4:52 PM SLATE HANDLER) Glucose, POC, bld 124 70 - 140 mg/dl HISTORICAL RESULTS Blood specimen (specimen) 06/19/2015 4:52 PM SLATE HANDLER Anna Johnson MD LAB BLOOD ORDERABLES Final R esult Performing Organization Address [facility] de Phone Number HISTORICAL RESULTS * (ABNORMAL) Blood glucose (06/19/2015 12:06 PM SLATE HANDLER) Glucose, POC, bld 174(H) 70 - 140 mg/dl HISTORICAL RESULTS Blood specimen (specimen) 06/19/2015 12:06 PM SLATE HANDLER Anna Johnson MD LAB BLOOD ORDERABLES Final R [facility] Performing Organization Address [facility] de Phone Number HISTORICAL RESULTS * Blood glucose (06/19/2015 6:26 AM SLATE HANDLER) Glucose, POC, bld 134 70 - 140 mg/dl HISTORICAL RESULTS Blood specimen (specimen) 06/19/2015 6:26 AM SLATE HANDLER Anna Johnson MD LAB BLOOD ORDERABLES Final R [facility] Performing Organization Address [facility] de Phone Number HISTORICAL RESULTS * (ABNORMAL) Plasma basic metabolic panel (06/19/2015 4:47 AM SLATE HANDLER) Sodium 136 136 - 146 mmol/L HISTORICAL RESULTS K, pl 4.1 3.3 - 4.9 mmol/L HISTORICAL RESULTS Chloride 101 98 - 108 mmol/L HISTORICAL RESULTS CO2 29 22 - 33 mmol/L HISTORICAL RESULTS BUN 19(H) 7 - 18 mg/dl HISTORICAL RESULTS Glucose 144(H) 70 - 140 mg/dl HISTORICAL RESULTS Comment: Glucose is assumed to be non-fasting. ?? Fasting Glucose normal ranges are: 0 days - 2 months: ? 40 mg/dL - 100 mg/dL 2 months - 999 years: ?70 mg/dL - 99 mg/dL Creatinine 1.30 0.50 - 1.50 mg/dl HISTORICAL RESULTS eGFR 54 ml/min/1.7 3 m2 HISTORICAL RESULTS Comment: GFR Reference Range: = > 60 mL/min/1.73 m2 This result has been calculated assuming the patient is Non-. ??If the patient is , please multiply this result by 1.21. The GFR value is not recommended for medication dose adjustment for renal function, creatinine clearance values should be used. Calcium 8.9 8.5 - 10.5 mg/dl HISTORICAL RESULTS Plasma 06/19/2015 4:47 AM SLATE HANDLER us Gregg Mora MD LAB BLOOD ORDERABLES Final Result HISTORICAL RESULTS * (ABNORMAL) Blood cell count (CBC), morphologic exam (06/19/2015 4:47 AM SLATE HANDLER) WBC 10.4 4.5 - 11.0 K/cumm HISTORICAL RESULTS RBC 5.21 4.50 - 6.20 M/cumm HISTORICAL RESULTS Hgb 14.5 13.0 - 17.0 g/dl HISTORICAL RESULTS Hct 46.0 39.0 - 52.0 % HISTORICAL RESULTS MCV 88.4 80.0 - 100.0 fl HISTORICAL RESULTS MCH 27.8 27.0 - 33.0 pg HISTORICAL RESULTS MCHC 31.5(L) 32.0 - 36.0 g/dl HISTORICAL RESULTS Rdw 15.4(H) 11.5 - 14.5 % HISTORICAL RESULTS Platelets 372 140 - 400 K/cumm HISTORICAL RESULTS MPV 7.7 7.4 - 10.4 fl HISTORICAL RESULTS Neutrophils 69.6 42.0 - 75.0 % HISTORICAL RESULTS Lymphocytes 13.0(L) 21.0 - 51.0 % HISTORICAL RESULTS Monos 14.8(H) 2.0 - 9.0 % HISTORICAL RESULTS Eosinophils 2.4 0.0 - 10.0 % HISTORICAL RESULTS Basophils 0.2 0.0 - 1.0 % HISTORICAL RESULTS Neutrophils, abs 7.2 1.8 - 7.7 K/cumm HISTORICAL RESULTS Lymphocytes, abs 1.4 1.0 - 4.8 K/cumm HISTORICAL RESULTS Monocytes, absolute 1.5(H) 0.0 - 0.8 K/cumm HISTORICAL RESULTS Eosinophils, abs 0.3 0.0 - 0.5 K/cumm HISTORICAL RESULTS Basophils, abs 0.0 0.0 - 0.2 K/cumm HISTORICAL RESULTS Blood specimen (specimen) 06/19/2015 4:47 AM SLATE HANDLER Gregg Mora MD LAB BLOOD ORDERABLES Final Result Performing Organization Address [facility] de Phone Number HISTORICAL RESULTS * Blood glucose (06/18/2015 9:17 PM SLATE HANDLER) Glucose, POC, bld 109 70 - 140 mg/dl HISTORICAL RESULTS Blood specimen (specimen) 06/18/2015 9:17 PM SLATE HANDLER Anna Johnson MD LAB BLOOD ORDERABLES Final R esult Performing Organization Address [facility] de Phone Number HISTORICAL RESULTS * (ABNORMAL) Blood glucose (06/18/2015 5:17 PM SLATE HANDLER) Glucose, POC, bld 195(H) 70 - 140 mg/dl HISTORICAL RESULTS Blood specimen (specimen) 06/18/2015 5:17 PM SLATE HANDLER Anna Johnson MD LAB BLOOD ORDERABLES Final R esult Performing Organization Address [facility] de Phone Number HISTORICAL RESULTS * CHEST, ABDOMINAL COMPUTED TOMOGRAPHY (CT) WITH CONTRAST (06/18/2015 2:04 PM SLATE HANDLER) Anatomical Region Laterality Modality N/A Computed Tomogra phy 06/18/2015 2:04 PM SLATE HANDLER Narrative 06/18/2015 4:[address] chest and abdomen: HISTORY: Back pain with questionable epidural abscess. TECHNIQUE: ??Multiple contiguous axial images of the chest and abdomen were obtained following intravenous administration of 123 cc of Optiray 320 and oral contrast. ??Comparison is made to prior CT abdomen dated 11/07/[address] lumbar spine dated 06/15/2015. CT THORAX: The heart size is within normal limits. ??There is coronary artery calcification. ??Small calcified mediastinal and hilar lymph nodes are present. ??There is no pericardial effusion or adenopathy. The vascular structures enhance normally. Since the prior CT scan there has been development of consolidating right lower lobe lung infiltrate. ??The findings may represent rounded atelectasis. ??There is mild pleural thickening. ??There are small nodular opacities measuring 0.2 cm or less within the periphery of the right upper lobe, see image 37 and within the right middle lobe, see image 51. There is no other evidence of lung consolidation or pleural effusion. ?? Multiple healed rib fractures are present. CT ABDOMEN: The liver is normal. ??There are multiple gallstones in the gallbladder lumen unchanged since prior examination. ??No bile duct dilatation is seen. Tail of the pancreas and spleen are again noted to be surgically absent. ??There has been interval resolution of intra-abdominal fluid collections. There are bilateral renal hypodensities most consistent with cysts, increased in size in the right kidney now measuring 4.8 cm compared to 2.7 cm and interval increase in the size of a cyst in the inferior pole of the left kidney. ??There are likely new small cysts in the inferior pole of the right kidney. ??The visualized ureters are grossly normal. There has been interval placement of mesh within the anterior abdominal wall. ??Above the mesh however there is anterior abdominal wall defects and herniated loops of large and small bowel are present. ??There is no suspicion of bowel obstruction and the large and small bowel are otherwise normal. ??The vascular structures enhance normally. ??No adenopathy is seen. Since CT lumbar spine dated 06/15/2015 there has been no change in the appearance of a bone destructive lesion at L2-L3 with fluid at the intervertebral disc space level. ??There is minimal paraspinal soft tissue stranding without evidence of paraspinal fluid collection. IMPRESSION: 1. ??A bone destructive lesion centered at L2-L3 suggesting discitis is unchanged when compared to the prior CT scan. ??There is minimal paraspinal soft tissue stranding without paraspinal fluid collection. 2. ??There are small lung nodules measuring 0.2 cm and less which are likely benign. ??Follow-up could be obtained. 3. ??There is findings suggesting rounded atelectasis in the right lower lobe. ?? 4. ??There has been interval placement of mesh in the anterior abdominal wall. ??Above the mesh there is an anterior abdominal wall defect with herniated loops of large and small bowel without bowel obstruction. 5. ??Gallstones are present unchanged. ??There is no associated bile duct dilatation. PH/mvb Edited by: Maria Guadalupe Harley Electronically signed by: Benedicto Ralph M.D. Radiologist: BENEDICTO RALPH ?? Attending: ??ANNA JOHNSON M.D. Requesting: CHLOE DAVILA Requesting Fax: ?? Requesting ID: [id number] Attending Fax: ?? Attending ID: ?? [id number] Completed Time: ?? 06/18/2015 2:04 PM Dictated Time: ?06/18/2015 2:37 PM Transcribed Time: 06/18/2015 2:50 PM Signed by: ?BENEDICTO RALPH ?? on 06/18/2015 4:29 PM Report To 1 ID: Report To 1 Name: , Report To 1 FAX: Report To 2 ID: Report To 2 Name: , Report To 2 FAX: Report To 3 ID: Report To 3 Name: , Report To 3 FAX: NextGen Order #: Procedure Note Provider, MD Dee - 11/28/2016 CT chest and abdomen: HISTORY: Back pain with questionable epidural abscess. TECHNIQUE: Multiple contiguous axial images of the chest and abdomen were obtained following intravenous administration of 123 cc of Optiray 320 and oral contrast. Comparison is made to prior CT abdomen dated 11/07/[address] lumbar spine dated 06/15/2015. CT THORAX: The heart size is within normal limits. There is coronary artery calcification. Small calcified mediastinal and hilar lymph nodes are present. There is no pericardial effusion or adenopathy. The vascular structures enhance normally. Since the prior CT scan there has been development of consolidating right lower lobe lung infiltrate. The findings may represent rounded atelectasis. There is mild pleural thickening. There are small nodular opacities measuring 0.2 cm or less within the periphery of the right upper lobe, see image 37 and within the right middle lobe, see image 51. There is no other evidence of lung consolidation or pleural effusion. Multiple healed rib fractures are present. CT ABDOMEN: The liver is normal. There are multiple gallstones in the gallbladder lumen unchanged since prior examination. No bile duct dilatation is seen. Tail of the pancreas and spleen are again noted to be surgically absent. There has been interval resolution of intra-abdominal fluid collections. There are bilateral renal hypodensities most consistent with cysts, increased in size in the right kidney now measuring 4.8 cm compared to 2.7 cm and interval increase in the size of a cyst in the inferior pole of the left kidney. There are likely new small cysts in the inferior pole of the right kidney. The visualized ureters are grossly normal. There has been interval placement of mesh within the anterior abdominal wall. Above the mesh however there is anterior abdominal wall defects and herniated loops of large and small bowel are present. There is no suspicion of bowel obstruction and the large and small bowel are otherwise normal. The vascular structures enhance normally. No adenopathy is seen. Since CT lumbar spine dated 06/15/2015 there has been no change in the appearance of a bone destructive lesion at L2-L3 with fluid at the intervertebral disc space level. There is minimal paraspinal soft tissue stranding without evidence of paraspinal fluid collection. IMPRESSION: 1. A bone destructive lesion centered at L2-L3 suggesting discitis is unchanged when compared to the prior CT scan. There is minimal paraspinal soft tissue stranding without paraspinal fluid collection. 2. There are small lung nodules measuring 0.2 cm and less which are likely benign. Follow-up could be obtained. 3. There is findings suggesting rounded atelectasis in the right lower lobe. 4. There has been interval placement of mesh in the anterior abdominal wall. Above the mesh there is an anterior abdominal wall defect with herniated loops of large and small bowel without bowel obstruction. 5. Gallstones are present unchanged. There is no associated bile duct dilatation. PH/mvb Edited by: Maria Guadalupe Harley Electronically signed by: Benedicto Ralph M.D. Radiologist: BENEDICTO RALPH Attending: ANNA JOHNSON M.D. Requesting: CHLOE DAVILA Requesting Requesting ID: [id number] Attending Attending ID: [id number] Completed Time: 06/18/2015 2:04 PM Dictated Time: 06/18/2015 2:37 PM Transcribed Time: 06/18/2015 2:50 PM Signed by: BENEDICTO RALPH on 06/18/2015 4:29 PM Report To 1 ID: Report To 1 Name: , Report To 1 FAX: Report To 2 ID: Report To 2 Name: , Report To 2 FAX: Report To 3 ID: Report To 3 Name: , Report To 3 FAX: NextGen Order #: Historical Provider MD IMG CT PROCEDURES Final R esult * (ABNORMAL) Blood glucose (06/18/2015 12:03 PM SLATE HANDLER) Glucose, POC, bld 167(H) 70 - 140 mg/dl HISTORICAL RESULTS Gluc, com 1, bld RN/MD Notified HISTORICAL RESULTS Blood specimen (specimen) 06/18/2015 12:03 PM SLATE HANDLER Anna Johnson MD LAB BLOOD ORDERABLES Final R esult HISTORICAL RESULTS * (ABNORMAL) Serum protein electrophoresis (06/18/2015 9:37 AM SLATE HANDLER) Protein, sr 5.7(L) 6.0 - 8.5 g/dl HISTORICAL RESULTS Albumin 54.7(L) 60.3 - 71.4 % HISTORICAL RESULTS Albumin, sr 3.1(L) 3.6 - 5.9 g/dl HISTORICAL RESULTS Alpha-1 3.6(H) 1.4 - 2.9 % HISTORICAL RESULTS Alpha-1, sr 0.2 0.1 - 0.3 g/dl HISTORICAL RESULTS Alpha-2 16.3(H) 7.20 - 11.30 % HISTORICAL RESULTS Alpha-2, sr 0.9 0.5 - 1.1 g/dl HISTORICAL RESULTS Beta 13.2(H) 8.1 - 12.7 % HISTORICAL RESULTS Beta fraction, sr 0.8 0.4 - 0.9 g/dl HISTORICAL RESULTS Gamma 12.2 8.7 - 16.0 % HISTORICAL RESULTS Gamma, sr 0.7 0.5 - 1.4 g/dl HISTORICAL RESULTS M fraction 1.9(H) 0.0 - 0.0 % HISTORICAL RESULTS M fraction, sr 0.11(H) 0.00 - 0.00 g/dl HISTORICAL RESULTS SPEL, interp Positive for Monoclonal protein.(A) Negative forMonoc lonalpro tein. HISTORICAL RESULTS Comment:Copy of electrophore tic scan available upon request. Serum 06/18/2015 9:37 AM SLATE HANDLER us Chloe Davila [employer] LAB BLOOD ORDERABLES Final Res ult Performing Organization Address [facility] de Phone Number HISTORICAL RESULTS * Blood glucose (06/18/2015 6:41 AM SLATE HANDLER) Glucose, POC, bld 114 70 - 140 mg/dl HISTORICAL RESULTS Blood specimen (specimen) 06/18/2015 6:41 AM SLATE HANDLER Anna Johnson MD LAB BLOOD ORDERABLES Final R esult Performing Organization Address [facility] de Phone Number HISTORICAL RESULTS * (ABNORMAL) Plasma basic metabolic panel (06/18/2015 4:27 AM SLATE HANDLER) Sodium 135(L) 136 - 146 mmol/L HISTORICAL RESULTS K, pl 4.0 3.3 - 4.9 mmol/L HISTORICAL RESULTS Chloride 102 98 - 108 mmol/L HISTORICAL RESULTS CO2 26 22 - 33 mmol/L HISTORICAL RESULTS BUN 17 7 - 18 mg/dl HISTORICAL RESULTS Glucose 129 70 - 140 mg/dl HISTORICAL RESULTS Comment: Glucose is assumed to be non-fasting. ?? Fasting Glucose normal ranges are: 0 days - 2 months: ? 40 mg/dL - 100 mg/dL 2 months - 999 years: ?70 mg/dL - 99 mg/dL Creatinine 1.13 0.50 - 1.50 mg/dl HISTORICAL RESULTS eGFR >60 ml/min/1.7 3 m2 HISTORICAL RESULTS Comment: GFR Reference Range: = > 60 mL/min/1.73 m2 This result has been calculated assuming the patient is Non-. ??If the patient is , please multiply this result by 1.21. The GFR value is not recommended for medication dose adjustment for renal function, creatinine clearance values should be used. Calcium 8.6 8.5 - 10.5 mg/dl HISTORICAL RESULTS Plasma 06/18/2015 4:27 AM SLATE HANDLER Gregg Mora MD LAB BLOOD ORDERABLES Final Result Performing Organization Address [facility] de Phone Number HISTORICAL RESULTS * Blood erythrocyte sedimentation rate (ESR) (06/18/2015 4:27 AM SLATE HANDLER) Erythrocyte sedimentation rate 9.0 0.0 - 10.0 mm/hr HISTORICAL RESULTS Blood specimen (specimen) 06/18/2015 4:27 AM SLATE HANDLER Gregg Mora MD LAB BLOOD ORDERABLES Final Result Performing Organization Address [facility] de Phone Number HISTORICAL RESULTS * (ABNORMAL) Blood cell count (CBC), morphologic exam (06/18/2015 4:27 AM SLATE HANDLER) WBC 10.6 4.5 - 11.0 K/cumm HISTORICAL RESULTS RBC 5.22 4.50 - 6.20 M/cumm HISTORICAL RESULTS Hgb 14.6 13.0 - 17.0 g/dl HISTORICAL RESULTS Hct 45.8 39.0 - 52.0 % HISTORICAL RESULTS MCV 87.8 80.0 - 100.0 fl HISTORICAL RESULTS MCH 28.0 27.0 - 33.0 pg HISTORICAL RESULTS MCHC 31.9(L) 32.0 - 36.0 g/dl HISTORICAL RESULTS Rdw 15.9(H) 11.5 - 14.5 % HISTORICAL RESULTS Platelets 406(H) 140 - 400 K/cumm HISTORICAL RESULTS MPV 7.7 7.4 - 10.4 fl HISTORICAL RESULTS Neutrophils 68.6 42.0 - 75.0 % HISTORICAL RESULTS Lymphocytes 14.4(L) 21.0 - 51.0 % HISTORICAL RESULTS Monos 14.8(H) 2.0 - 9.0 % HISTORICAL RESULTS Eosinophils 1.8 0.0 - 10.0 % HISTORICAL RESULTS Basophils 0.4 0.0 - 1.0 % HISTORICAL RESULTS Neutrophils, abs 7.3 1.8 - 7.7 K/cumm HISTORICAL RESULTS Lymphocytes, abs 1.5 1.0 - 4.8 K/cumm HISTORICAL RESULTS Monocytes, absolute 1.6(H) 0.0 - 0.8 K/cumm HISTORICAL RESULTS Eosinophils, abs 0.2 0.0 - 0.5 K/cumm HISTORICAL RESULTS Basophils, abs 0.0 0.0 - 0.2 K/cumm HISTORICAL RESULTS Blood specimen (specimen) 06/18/2015 4:27 AM SLATE HANDLER Gregg Mora MD LAB BLOOD ORDERABLES Final Result Performing Organization Address [facility] de Phone Number HISTORICAL RESULTS * Blood glucose (06/17/2015 9:21 PM SLATE HANDLER) Glucose, POC, bld 98 70 - 140 mg/dl HISTORICAL RESULTS Blood specimen (specimen) 06/17/2015 9:21 PM SLATE HANDLER Anna Johnson MD LAB BLOOD ORDERABLES Final R esult Performing Organization Address [facility] de Phone Number HISTORICAL RESULTS * Blood glucose (06/17/2015 4:43 PM SLATE HANDLER) Glucose, POC, bld 91 70 - 140 mg/dl HISTORICAL RESULTS Blood specimen (specimen) 06/17/2015 4:43 PM SLATE HANDLER Anna Johnson MD LAB BLOOD ORDERABLES Final R esult Performing Organization Address [facility] de Phone Number HISTORICAL RESULTS * Plasma vancomycin, trough drug level (06/17/2015 2:30 PM SLATE HANDLER) Vancomycin, trough 24.9 mcg/ml HISTORICAL RESULTS Comment: Vancomycin Trough Target Concentration: Trough Systemic Illness ?5 mcg/mL - 15 mcg/mL Severe Infection ?15 mcg/mL - 25 mcg/mL Plasma 06/17/2015 2:30 PM SLATE HANDLER Narrative HISTORICAL RESULTS - 06/17/2015 3:09 PM SLATE HANDLER please draw blood prior to hanging dose us Gregg Mora MD LAB BLOOD ORDERABLES Final Result HISTORICAL RESULTS * KNEE RADIOGRAPHY, FRONTAL (AP), LATERAL, OBLIQUE (06/17/2015 1:04 PM SLATE HANDLER) Anatomical Region Laterality Modality N/A Radiographic Ary ging 06/17/2015 1:04 PM SLATE HANDLER Narrative 06/17/2015 3:24 PM SLATE HANDLER Right knee 4 view examination dated June 17, 2015. HISTORY: Right knee replacement. ??Pain and swelling. FINDINGS: 3 view examination of the right knee is performed. ??There is a right knee prosthesis in place. ??No large knee joint effusion is seen. ?? Prosthetic components appear to be in expected location. IMPRESSION: Right knee prosthesis. ??No definite knee joint effusion. Electronically signed by: Adalid Sorto M.D. Radiologist: ADALID SORTO ?? Attending: ??ANNA JOHNSON M.D. Requesting: GREGG MORA M.D. Requesting Fax: ?? Requesting ID: [id number] Attending Fax: ?? Attending ID: ?? [id number] Completed Time: ?? 06/17/2015 1:04 PM Dictated Time: ?06/17/2015 3:24 PM Transcribed Time: 06/17/2015 3:24 PM Signed by: ?ADALID SORTO ?? on 06/17/2015 3:24 PM Report To 1 ID: Report To 1 Name: , Report To 1 FAX: Report To 2 ID: Report To 2 Name: , Report To 2 FAX: Report To 3 ID: Report To 3 Name: , Report To 3 FAX: NextGen Order #: Procedure Note Provider, MD Dee - 11/28/2016 Right knee 4 view examination dated June 17, 2015. HISTORY: Right knee replacement. Pain and swelling. FINDINGS: 3 view examination of the right knee is performed. There is a right knee prosthesis in place. No large knee joint effusion is seen. Prosthetic components appear to be in expected location. IMPRESSION: Right knee prosthesis. No definite knee joint effusion. Electronically signed by: Adalid Sorto M.D. Radiologist: ADALID SORTO Attending: ANNA JOHNSON M.D. Requesting: GREGG MORA M.D. Requesting Requesting ID: [id number] Attending Attending ID: [id number] Completed Time: 06/17/2015 1:04 PM Dictated Time: 06/17/2015 3:24 PM Transcribed Time: 06/17/2015 3:24 PM Signed by: ADALID SORTO on 06/17/2015 3:24 PM Report To 1 ID: Report To 1 Name: , Report To 1 FAX: Report To 2 ID: Report To 2 Name: , Report To 2 FAX: Report To 3 ID: Report To 3 Name: , Report To 3 FAX: NextGen Order #: us Historical Provider IMTamiko XR PROCEDURES Final R esult * MRI Lumbar Spine WWO Contrast (06/17/2015 12:45 PM SLATE HANDLER) Anatomical Region Laterality Modality Spine N/A Magnetic Resonan ce 06/17/2015 12:4 5 PM SLATE HANDLER Narrative 06/17/2015 9:01 PM SLATE HANDLER MRI LUMBAR SPINE WITHOUT AND WITH IV CONTRAST, 06/15/2015 HISTORY: Severe relentless back pain, prior lumbar disc aspiration 06/15/2015. COMPARISON: Radiographs 07/04/2014, CT lumbar spine 06/15/2013. CONTRAST: 20 cc Dotarem Conus: Normal Tip at L1-2 Alignment: No significant scoliosis, see below for any listhesis by level T12-L1: There is degenerative signal in the disc space and slight retrolisthesis of T12 on L1. ??There is minor disc bulging and some endplate spurring but no severe canal narrowing is present. ??There could be some mild bilateral foraminal narrowing related to facet spurring. L1-L2: There is retrolisthesis of L1 on L2 with solid bony fusion across the disc space with posterior hardware in place. ??Laminectomy has been performed. ??There is mild to moderate canal narrowing. ?? There is dorsal fluid in the subcutaneous tissues. ??There is moderate left and mild right foraminal narrowing. L2-L3: There is severe inferior L2 and superior L3 vertebral body destruction with a large fluid-filled space and extensive adjacent soft tissue change present. ??This corresponds to the CT appearance and is consistent with advanced discitis/osteomyelitis. ??The lucency around the left L3 screw is not evident by MRI but is known by CT. ?? There is retrolisthesis of L2 on L3. There is extremely severe thecal sac narrowing at this level. ??This measures as little as 0.6 x 1.0 cm on axial images consistent with severe canal stenosis. ??There is severe left and right foraminal narrowing caused by all of these changes and facet arthropathy. There is abnormality in the left lateral recess beginning at the disc space extending down to the L3-L4 disc space level. ??On axial images this measures as much as 1.4 x 1.1 cm, and 3 cm superior to inferior on the sagittal images. ??It is uncertain whether this is some epidural abscess, extruded phlegmon, extruded disc fragment (not favored), but is likely compromising left descending L3 nerve root. ?? A facet joint synovial cyst could also cause this, but there is no joint fluid seen in the left L2-L3 facets. L3-L4: There is no major disc protrusion. ??The thecal sac returns to more normal caliber at this level but there is still left lateral recess effacement from the process above extending downward. ??There is facet arthropathy. ??There is moderate right and possibly severe left foraminal narrowing. ??There is no overall AP canal stenosis. L4-L5: The disc space height is maintained and there is relatively normal thecal sac diameter. ??There is facet arthropathy present. ?? There is no AP canal stenosis. ??There is mild inferior bilateral foraminal narrowing. L5-S1: There is retrolisthesis of L5 on S1 with marked disc space narrowing. ??Disc and spur complex slightly efface the right anterior thecal sac and extend into the foramina. ??There is moderate bilateral foraminal narrowing. Comparing pre and postcontrast series, it is difficult to discern enhancement related to the metal artifact from the prior fusion of L1 to L3. 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 ??Severe L2-L3 canal stenosis. ??Foraminal narrowing as above. ??Results were called to Dr. Johnson at 1620. CO/mf Edited by: Malia Beltre Electronically signed by: Erika Miller M.D. Radiologist: ERIKA MILLER ?? Attending: ??ANNA JOHNSON M.D. Requesting: ANNA JOHNSON M.D. Requesting Fax: ?? Requesting ID: [id number] Attending Fax: ?? Attending ID: ?? [id number] Completed Time: ?? 06/17/2015 12:45 AM Dictated Time: ?06/17/2015 4:33 PM Transcribed Time: 06/17/2015 4:44 PM Signed by: ?ERIKA MILLER ?? on 06/17/2015 9:01 PM Report To 1 ID: Report To 1 Name: , Report To 1 FAX: Report To 2 ID: Report To 2 Name: , Report To 2 FAX: Report To 3 ID: Report To 3 Name: , Report To 3 FAX: NextGen Order #: Procedure Note Provider, MD Dee - 11/28/2016 MRI LUMBAR SPINE WITHOUT AND WITH IV CONTRAST, 06/15/2015 HISTORY: Severe relentless back pain, prior lumbar disc aspiration 06/15/2015. COMPARISON: Radiographs 07/04/2014, CT lumbar spine 06/15/2013. CONTRAST: 20 cc Dotarem Conus: Normal Tip at L1-2 Alignment: No significant scoliosis, see below for any listhesis by level T12-L1: There is degenerative signal in the disc space and slight retrolisthesis of T12 on L1. There is minor disc bulging and some endplate spurring but no severe canal narrowing is present. There could be some mild bilateral foraminal narrowing related to facet spurring. L1-L2: There is retrolisthesis of L1 on L2 with solid bony fusion across the disc space with posterior hardware in place. Laminectomy has been performed. There is mild to moderate canal narrowing. There is dorsal fluid in the subcutaneous tissues. There is moderate left and mild right foraminal narrowing. L2-L3: There is severe inferior L2 and superior L3 vertebral body destruction with a large fluid-filled space and extensive adjacent soft tissue change present. This corresponds to the CT appearance and is consistent with advanced discitis/osteomyelitis. The lucency around the left L3 screw is not evident by MRI but is known by CT. There is retrolisthesis of L2 on L3. There is extremely severe thecal sac narrowing at this level. This measures as little as 0.6 x 1.0 cm on axial images consistent with severe canal stenosis. There is severe left and right foraminal narrowing caused by all of these changes and facet arthropathy. There is abnormality in the left lateral recess beginning at the disc space extending down to the L3-L4 disc space level. On axial images this measures as much as 1.4 x 1.1 cm, and 3 cm superior to inferior on the sagittal images. It is uncertain whether this is some epidural abscess, extruded phlegmon, extruded disc fragment (not favored), but is likely compromising left descending L3 nerve root. A facet joint synovial cyst could also cause this, but there is no joint fluid seen in the left L2-L3 facets. L3-L4: There is no major disc protrusion. The thecal sac returns to more normal caliber at this level but there is still left lateral recess effacement from the process above extending downward. There is facet arthropathy. There is moderate right and possibly severe left foraminal narrowing. There is no overall AP canal stenosis. L4-L5: The disc space height is maintained and there is relatively normal thecal sac diameter. There is facet arthropathy present. There is no AP canal stenosis. There is mild inferior bilateral foraminal narrowing. L5-S1: There is retrolisthesis of L5 on S1 with marked disc space narrowing. Disc and spur complex slightly efface the right anterior thecal sac and extend into the foramina. There is moderate bilateral foraminal narrowing. Comparing pre and postcontrast series, it is difficult to discern enhancement related to the metal artifact from the prior fusion of L1 to L3. 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 Severe L2-L3 canal stenosis. Foraminal narrowing as above. Results were called to Dr. Johnson at 1620. CO/mf Edited by: Malia Beltre Electronically signed by: Erika Miller M.D. Radiologist: ERIKA MILLER Attending: ANNA JOHNSON M.D. Requesting: ANNA JOHNSON M.D. Requesting Requesting ID: [id number] Attending Attending ID: [id number] Completed Time: 06/17/2015 12:45 AM Dictated Time: 06/17/2015 4:33 PM Transcribed Time: 06/17/2015 4:44 PM Signed by: ERIKA MILLER on 06/17/2015 9:01 PM Report To 1 ID: Report To 1 Name: , Report To 1 FAX: Report To 2 ID: Report To 2 Name: , Report To 2 FAX: Report To 3 ID: Report To 3 Name: , Report To 3 FAX: NextGen Order #: Historical Provider IMG MRI PROCEDURES Final Result * Blood glucose (06/17/2015 11:23 AM SLATE HANDLER) Glucose, POC, bld 130 70 - 140 mg/dl HISTORICAL RESULTS Blood specimen (specimen) 06/17/2015 11:23 AM SLATE HANDLER Anna Johnson MD LAB BLOOD ORDERABLES Final [facility] Performing Organization Address [facility] de Phone Number HISTORICAL RESULTS * Blood glucose (06/17/2015 6:17 AM SLATE HANDLER) Glucose, POC, bld 109 70 - 140 mg/dl HISTORICAL RESULTS Blood specimen (specimen) 06/17/2015 6:17 AM SLATE HANDLER Anna Johnson MD LAB BLOOD ORDERABLES Final R esult Performing Organization Address City/State/[facility] Co de Phone Number HISTORICAL RESULTS * (ABNORMAL) Plasma basic metabolic panel (06/17/2015 5:32 AM SLATE HANDLER) Sodium 140 136 - 146 mmol/L HISTORICAL RESULTS K, pl 4.0 3.3 - 4.9 mmol/L HISTORICAL RESULTS Chloride 105 98 - 108 mmol/L HISTORICAL RESULTS CO2 29 22 - 33 mmol/L HISTORICAL RESULTS BUN 21(H) 7 - 18 mg/dl HISTORICAL RESULTS Glucose 95 70 - 140 mg/dl HISTORICAL RESULTS Comment: Glucose is assumed to be non-fasting. ?? Fasting Glucose normal ranges are: 0 days - 2 months: ? 40 mg/dL - 100 mg/dL 2 months - 999 years: ?70 mg/dL - 99 mg/dL Creatinine 1.20 0.50 - 1.50 mg/dl HISTORICAL RESULTS eGFR 60 ml/min/1.7 3 m2 HISTORICAL RESULTS Comment: GFR Reference Range: = > 60 mL/min/1.73 m2 This result has been calculated assuming the patient is Non-. ??If the patient is , please multiply this result by 1.21. The GFR value is not recommended for medication dose adjustment for renal function, creatinine clearance values should be used. Calcium 8.8 8.5 - 10.5 mg/dl HISTORICAL RESULTS Plasma 06/17/2015 5:32 AM SLATE HANDLER us Gregg Mora MD LAB BLOOD ORDERABLES Final Result HISTORICAL RESULTS * (ABNORMAL) Blood cell count (CBC), morphologic exam (06/17/2015 5:32 AM SLATE HANDLER) WBC 10.9 4.5 - 11.0 K/cumm HISTORICAL RESULTS RBC 4.99 4.50 - 6.20 M/cumm HISTORICAL RESULTS Hgb 14.1 13.0 - 17.0 g/dl HISTORICAL RESULTS Hct 44.4 39.0 - 52.0 % HISTORICAL RESULTS MCV 89.0 80.0 - 100.0 fl HISTORICAL RESULTS MCH 28.3 27.0 - 33.0 pg HISTORICAL RESULTS MCHC 31.7(L) 32.0 - 36.0 g/dl HISTORICAL RESULTS Rdw 15.2(H) 11.5 - 14.5 % HISTORICAL RESULTS Platelets 380 140 - 400 K/cumm HISTORICAL RESULTS MPV 7.4 7.4 - 10.4 fl HISTORICAL RESULTS Neutrophils 68.3 42.0 - 75.0 % HISTORICAL RESULTS Lymphocytes 16.5(L) 21.0 - 51.0 % HISTORICAL RESULTS Monos 13.0(H) 2.0 - 9.0 % HISTORICAL RESULTS Eosinophils 1.9 0.0 - 10.0 % HISTORICAL RESULTS Basophils 0.3 0.0 - 1.0 % HISTORICAL RESULTS Neutrophils, abs 7.5 1.8 - 7.7 K/cumm HISTORICAL RESULTS Lymphocytes, abs 1.8 1.0 - 4.8 K/cumm HISTORICAL RESULTS Monocytes, absolute 1.4(H) 0.0 - 0.8 K/cumm HISTORICAL RESULTS Eosinophils, abs 0.2 0.0 - 0.5 K/cumm HISTORICAL RESULTS Basophils, abs 0.0 0.0 - 0.2 K/cumm HISTORICAL RESULTS Blood specimen (specimen) 06/17/2015 5:32 AM SLATE HANDLER Gregg Mora MD LAB BLOOD ORDERABLES Final Result Performing Organization Address [facility] de Phone Number HISTORICAL RESULTS * Blood glucose (06/17/2015 12:41 AM SLATE HANDLER) Glucose, POC, bld 107 70 - 140 mg/dl HISTORICAL RESULTS Blood specimen (specimen) 06/17/2015 12:41 AM SLATE HANDLER Anna Johnson MD LAB BLOOD ORDERABLES Final R esult Performing Organization Address [facility] Co de Phone Number HISTORICAL RESULTS * Blood glucose (06/16/2015 8:42 PM SLATE HANDLER) Glucose, POC, bld 81 70 - 140 mg/dl HISTORICAL RESULTS Blood specimen (specimen) 06/16/2015 8:42 PM SLATE HANDLER Anna Johnson MD LAB BLOOD ORDERABLES Final R esult Performing Organization Address City/[facility] Co de Phone Number HISTORICAL RESULTS * Blood glucose (06/16/2015 5:11 PM SLATE HANDLER) Glucose, POC, bld 83 70 - 140 mg/dl HISTORICAL RESULTS Blood specimen (specimen) 06/16/2015 5:11 PM SLATE HANDLER Anna Johnson MD LAB BLOOD ORDERABLES Final R esult Performing Organization Address [facility] de Phone Number HISTORICAL RESULTS * Blood glucose (06/16/2015 12:24 PM SLATE HANDLER) Glucose, POC, bld 113 70 - 140 mg/dl HISTORICAL RESULTS Blood specimen (specimen) 06/16/2015 12:24 PM SLATE HANDLER Anna Johnson MD LAB BLOOD ORDERABLES Final R esult Performing Organization Address [facility] de Phone Number HISTORICAL RESULTS * Blood glycated hemoglobin (06/16/2015 8:11 AM SLATE HANDLER) Hgb A1C Acceptable HISTORICA L RESULTS Blood specimen (specimen) 06/16/2015 8:11 AM SLATE HANDLER Nik Awad MD LAB BLOOD ORDERABLES Final R esult Performing Organization Address [facility] de Phone Number HISTORICAL RESULTS * Blood glucose (06/16/2015 6:19 AM SLATE HANDLER) Glucose, POC, bld 92 70 - 140 mg/dl HISTORICAL RESULTS Blood specimen (specimen) 06/16/2015 6:19 AM SLATE HANDLER Anna Johnson MD LAB BLOOD ORDERABLES Final R esult Performing Organization Address [facility] de Phone Number HISTORICAL RESULTS * (ABNORMAL) Blood glucose (06/15/2015 8:33 PM SLATE HANDLER) Glucose, POC, bld 216(H) 70 - 140 mg/dl HISTORICAL RESULTS Blood specimen (specimen) 06/15/2015 8:33 PM SLATE HANDLER Anna Johnson MD LAB BLOOD ORDERABLES Final R esult Performing Organization Address [facility] de Phone Number HISTORICAL RESULTS * (ABNORMAL) Urinalysis (06/15/2015 6:50 PM SLATE HANDLER) Color, ur Yellow Colorless,St raw,Yellow HISTORICAL RESULTS Clarity, ur Clear Clear HISTORIC AL RESULTS Specific gravity, ur 1.030 1.005 - 1.030 HISTORICAL RESULTS pH, ur 5.0 5.0 - 8.0 HISTORICAL RESULTS Leukocyte esterase, ur Negative Negative gali/mcl HISTORICAL RESULTS Nitrites, ur Negative Negative HISTORI CAMILA RESULTS Protein, ur Negative Negative mg/dl HISTORICAL RESULTS Glucose, ur, quant 50(A) Normal mg/dl HISTORICAL RESULTS Ketones, ur, quant Negative Negative mg/dl HISTORICAL RESULTS Urobilinogen, quant, ur 2.0(A) Normal mg/dl HISTORICAL RESULTS Bilirubin, ur Negative Negative mg/dl HISTORICAL RESULTS U Blood Negative Negative HISTORICAL RESULTS Urine 06/15/2015 6:50 PM SLATE HANDLER us Anna Johnson MD LAB BLOOD ORDERABLES Final R esult HISTORICAL RESULTS * Discography Lumb. S&I (06/15/2015 5:24 PM SLATE HANDLER) Anatomical Region Laterality Modality Spine N/A X-Ray Angiograph y 06/15/2015 5:24 PM SLATE HANDLER Narrative 06/15/2015 5:53 PM SLATE HANDLER EXAM: ??FLUOROSCOPICALLY-GUIDED L2-L3 DISC ASPIRATION AND BIOPSY. HISTORY: Suspected discitis. COMPARISON: ??Comparison is with CT of the lumbar spine from the same date. TECHNIQUE: The patient was explained the procedure fluoroscopically-guided disc aspiration and biopsy with its associated risks and alternatives. Risks include, but are not limited to, bleeding, infection and increased pain. Informed, written consent was obtained. Nursing was present throughout the procedure for administration of intravenous conscious sedation. Conscious sedation was performed from 1640 through 1710 hours. 100 mcg of fentanyl and 3 mg of Versed were administered intravenously for this examination. The patient was placed in a prone position on the fluoroscopic table and the low back was prepped and draped in the normal sterile fashion. 1 percent lidocaine was used for local skin anesthesia. An 18-gauge Jackson needle was then placed into the L2-L3 disc space under direct fluoroscopic visualization via a ??left paravertebral approach. Disc aspiration and biopsy was then performed. 15 cc of sero-sanguinous fluid was obtained and was sent for microbiology. Disc material was not obtained. ??The patient tolerated the procedure well and there were no immediate complications. Total fluoroscopy time was 1.5 minutes. IMPRESSION: Technically successful fluoroscopically guided L2-L3 disc aspiration. Electronically signed by: Adela Nicolas M.D. Radiologist: ADELA NICOLAS ??Navid ?? Attending: ??ANNA JOHNSON M.D. Requesting: ANNA JOHNSON M.D. Requesting Fax: ?? Requesting ID: [id number] Attending Fax: ?? Attending ID: ?? [id number] Completed Time: ?? 06/15/2015 5:24 PM Dictated Time: ?06/15/2015 5:53 PM Transcribed Time: 06/15/2015 5:53 PM Signed by: ?ADELA NICOLAS ?? Navid on 06/15/2015 5:53 PM Report To 1 ID: Report To 1 Name: , Report To 1 FAX: Report To 2 ID: Report To 2 Name: , Report To 2 FAX: Report To 3 ID: Report To 3 Name: , Report To 3 FAX: NextGen Order #: Procedure Note Provider, MD Dee - 11/28/2016 EXAM: FLUOROSCOPICALLY-GUIDED L2-L3 DISC ASPIRATION AND BIOPSY. HISTORY: Suspected discitis. COMPARISON: Comparison is with CT of the lumbar spine from the same date. TECHNIQUE: The patient was explained the procedure fluoroscopically-guided disc aspiration and biopsy with its associated risks and alternatives. Risks include, but are not limited to, bleeding, infection and increased pain. Informed, written consent was obtained. Nursing was present throughout the procedure for administration of intravenous conscious sedation. Conscious sedation was performed from 1640 through 1710 hours. 100 mcg of fentanyl and 3 mg of Versed were administered intravenously for this examination. The patient was placed in a prone position on the fluoroscopic table and the low back was prepped and draped in the normal sterile fashion. 1 percent lidocaine was used for local skin anesthesia. An 18-gauge Jackson needle was then placed into the L2-L3 disc space under direct fluoroscopic visualization via a left paravertebral approach. Disc aspiration and biopsy was then performed. 15 cc of sero-sanguinous fluid was obtained and was sent for microbiology. Disc material was not obtained. The patient tolerated the procedure well and there were no immediate complications. Total fluoroscopy time was 1.5 minutes. IMPRESSION: Technically successful fluoroscopically guided L2-L3 disc aspiration. Electronically signed by: Adela Nicolas M.D. Radiologist: ADELA NICOLAS M.D. Attending: ANNA JOHNSON M.D. Requesting: ANNA JOHNSON M.D. Requesting Requesting ID: [id number] Attending Attending ID: [id number] Completed Time: 06/15/2015 5:24 PM Dictated Time: 06/15/2015 5:53 PM Transcribed Time: 06/15/2015 5:53 PM Signed by: ADELA NICOLAS M.D. on 06/15/2015 5:53 PM Report To 1 ID: Report To 1 Name: , Report To 1 FAX: Report To 2 ID: Report To 2 Name: , Report To 2 FAX: Report To 3 ID: Report To 3 Name: , Report To 3 FAX: NextGen Order #: us Historical Provider MD YO IR PROCEDURES Final R esult * Plasma prothrombin time (PT) (06/15/2015 3:51 PM SLATE HANDLER) Prothrombin time (PT) 11.4 10.0 - 13.0 seconds HISTORICAL RESULTS Comment: Effective Thursday05/28/2015, the [facility] will be performing coagulation testing using new methodology. ??Please note that reference ranges have changed. ?? Please contact the Lab at [phone] if you have any questions. INR 1.0 0.9 - 1.2 HISTORICAL RESULTS Comment: INDICATION: ORTHOPEDIC Total Hip and Knee Arthroplasty 1.8 to 2.6 Hip Fracture 1.8 to 2.6 CARDIOLOGY Atrial Fibrillation 2.0 to 3.0 Cardiomyopathy 2.0 to 3.0 Myocardial Infarction 2.0 to 3.0 Non-[place] Valves 2.0 to 3.5 TREATMENT OF VENOUS THRMBOSIS Deep Vein Thrombosis 2.0 to 3.0 Pulmonary Embolism 2.0 to 3.0 Plasma 06/15/2015 3:51 PM SLATE HANDLER Anna Johnson MD LAB BLOOD ORDERABLES Final R esult Performing Organization Address [facility] de Phone Number HISTORICAL RESULTS * (ABNORMAL) Plasma partial thromboplastin time (PTT) (06/15/2015 3:51 PM SLATE HANDLER) [facility] APTT 25.7(L) 26.0 - 36.0 seconds HISTORICAL RESULTS Comment: Effective Thursday05/28/2015, the [facility] will be performing coagulation testing using new methodology. ??Please note that reference ranges have changed. ?? Please contact the Lab at [phone] if you have any questions. ? Therapeutic Heparin Range: 52 - 80 seconds Plasma 06/15/2015 3:51 PM SLATE HANDLER Anna Johnson MD LAB BLOOD ORDERABLES Final [facility] Performing Organization Address [facility] de Phone Number HISTORICAL RESULTS * Plasma C-reactive protein (06/15/2015 3:51 PM SLATE HANDLER) [facility] C-RP 6.0 0.00 - 10.00 mg/L HISTORICAL RESULTS Comment:Please Note: As of 0 09/09/2011, C-Reactive Protein testing is performed at [facility]. The Reference Range has changed. Plasma 06/15/2015 3:51 PM SLATE HANDLER Gregg Mora MD LAB BLOOD ORDERABLES Final Result Performing Organization Address [facility] de Phone Number HISTORICAL RESULTS * (ABNORMAL) Plasma basic metabolic panel (06/15/2015 3:51 PM SLATE HANDLER) [facility] Sodium 139 136 - 146 mmol/L HISTORICAL RESULTS K, pl 4.5 3.3 - 4.9 mmol/L HISTORICAL RESULTS Chloride 105 98 - 108 mmol/L HISTORICAL RESULTS CO2 26 22 - 33 mmol/L HISTORICAL RESULTS BUN 26(H) 7 - 18 mg/dl HISTORICAL RESULTS Glucose 156(H) 70 - 140 mg/dl HISTORICAL RESULTS Comment: Glucose is assumed to be non-fasting. ?? Fasting Glucose normal ranges are: 0 days - 2 months: ? 40 mg/dL - 100 mg/dL 2 months - 999 years: ?70 mg/dL - 99 mg/dL Creatinine 1.10 0.50 - 1.50 mg/dl HISTORICAL RESULTS eGFR >60 ml/min/1.7 3 m2 HISTORICAL RESULTS Comment: GFR Reference Range: = > 60 mL/min/1.73 m2 This result has been calculated assuming the patient is Non-. ??If the patient is , please multiply this result by 1.21. The GFR value is not recommended for medication dose adjustment for renal function, creatinine clearance values should be used. Calcium 9.5 8.5 - 10.5 mg/dl HISTORICAL RESULTS Plasma 06/15/2015 3:51 PM SLATE HANDLER Anna Johnson MD LAB BLOOD ORDERABLES Final R esult Performing Organization Address [facility] de Phone Number HISTORICAL RESULTS * Blood erythrocyte sedimentation rate (ESR) (06/15/2015 3:51 PM SLATE HANDLER) Erythrocyte sedimentation rate 7.0 0.0 - 10.0 mm/hr HISTORICAL RESULTS Blood specimen (specimen) 06/15/2015 3:51 PM SLATE HANDLER [facility] Provider LAB BLOOD ORDERABLES Ruth l Result Performing Organization Address [facility] de Phone Number HISTORICAL RESULTS * (ABNORMAL) Blood cell count (CBC), morphologic exam (06/15/2015 3:51 PM SLATE HANDLER) WBC 11.6(H) 4.5 - 11.0 K/cumm HISTORICAL RESULTS RBC 5.72 4.50 - 6.20 M/cumm HISTORICAL RESULTS Hgb 15.9 13.0 - 17.0 g/dl HISTORICAL RESULTS Hct 50.0 39.0 - 52.0 % HISTORICAL RESULTS MCV 87.5 80.0 - 100.0 fl HISTORICAL RESULTS MCH 27.8 27.0 - 33.0 pg HISTORICAL RESULTS MCHC 31.8(L) 32.0 - 36.0 g/dl HISTORICAL RESULTS Rdw 15.9(H) 11.5 - 14.5 % HISTORICAL RESULTS Platelets 402(H) 140 - 400 K/cumm HISTORICAL RESULTS MPV 8.1 7.4 - 10.4 fl HISTORICAL RESULTS Neutrophils 82.6(H) 42.0 - 75.0 % HISTORICAL RESULTS Lymphocytes 10.0(L) 21.0 - 51.0 % HISTORICAL RESULTS Monos 7.1 2.0 - 9.0 % HISTORICAL RESULTS Eosinophils 0.2 0.0 - 10.0 % HISTORICAL RESULTS Basophils 0.1 0.0 - 1.0 % HISTORICAL RESULTS Neutrophils, abs 9.6(H) 1.8 - 7.7 K/cumm HISTORICAL RESULTS Lymphocytes, abs 1.2 1.0 - 4.8 K/cumm HISTORICAL RESULTS Monocytes, absolute 0.8 0.0 - 0.8 K/cumm HISTORICAL RESULTS Eosinophils, abs 0.0 0.0 - 0.5 K/cumm HISTORICAL RESULTS Basophils, abs 0.0 0.0 - 0.2 K/cumm HISTORICAL RESULTS Blood specimen (specimen) 06/15/2015 3:51 PM SLATE HANDLER Historical Provider LAB BLOOD ORDERABLES Ruth l Result HISTORICAL RESULTS * (ABNORMAL) Blood hemoglobin A1C (06/15/2015 3:51 PM SLATE HANDLER) Glycated hemoglobin 6.7(H) 4.0 - 6.0 % HISTORICAL RESULTS Blood specimen (specimen) 06/15/2015 3:51 PM SLATE HANDLER Nik Awad MD LAB BLOOD ORDERABLES Final R esult HISTORICAL RESULTS * AFB Culture and Smear Microbiology (06/15/2015 12:00 AM SLATE HANDLER) 06/15/2015 12:0 0 AM SLATE HANDLER Narrative HISTORICAL RESULTS - 08/11/2015 1:25 PM SLATE HANDLER ? [facility] Microbiology ?[address] ??[place], [place] ??[address] ? Tele: ?Carolynn Bangura M.D. - Cardiology Consultant - Benoit Ramirez - Administrative ?Director ?? Patient: BERNIE CAREY ? Admission #: ??[id number] ?? : 1940 ?Location:[place] [address]- ?? Gender: M ?? Admit Date: 06/15/2015 ? = = = = = = = = = = = = = = = = = = = = = = = = = = = = = = = = = = = = = = AFB Culture and smear ?Final ?? Fluid ? See Comment ?? Collected: ??06/15/2015 17:28 ?? Inoculated: ??06/15/2015 19:27 ?? Report Date: ??08/11/2015 09:52 ? L 2 - L 3 disc space ?? Smear Result: ?Direct Smear: No Acid Fast Bacillus Seen ?? Culture Result ?No Acid Fast Bacilli isolated = = = = = = = = = = = = = = = = = = = = = = = = = = = = = = = = = = = = = ? Physician: ?[facility] Microbiology Report-[facility] ? us Historical Provider LAB MICROBIOLOGY - GENERA L ORDERABLES Final Result Performing Organization Address City/State/[facility] Co de Phone Number HISTORICAL RESULTS * Blood Microbiology (06/15/2015 12:00 AM SLATE HANDLER) 06/15/2015 12:0 0 AM SLATE HANDLER Narrative HISTORICAL RESULTS - 06/21/2015 5:29 PM SLATE HANDLER ? [facility] Microbiology ?[address] ??[place], [place] ??[address] ? Tele: ?Carolynn Bangura M.D. - Cardiology Consultant - Benoit Ramirez - Administrative ?Director ?? Patient: BERNIE CAREY ? Admission #: ??[id number] ?? : 1940 ?Location:[facility] ?? Gender: M ?? Admit Date: 06/15/2015 ? = = = = = = = = = = = = = = = = = = = = = = = = = = = = = = = = = = = = = = ?? Blood Culture ? Final ?? Blood ? Peripheral ?? Collected: ??06/15/2015 15:51 ?? Inoculated: ??06/15/2015 15:58 ?? Report Date: ??06/21/2015 13:17 ? Culture Result ?No Growth Blood Culture ? Final ?? Blood ? Peripheral ?? Collected: ??06/15/2015 15:51 ?? Inoculated: ??06/15/2015 15:58 ?? Report Date: ??06/21/2015 13:17 ? Culture Result ?No Growth = = = = = = = = = = = = = = = = = = = = = = = = = = = = = = = = = = = = = ? Physician: ?[facility] Microbiology Report-[facility] ? us Historical Provider LAB MICROBIOLOGY - GENERA L ORDERABLES Final Result HISTORICAL RESULTS * Sterile Fluid Microbiology (06/15/2015 12:00 AM SLATE HANDLER) 06/15/2015 12:0 0 AM SLATE HANDLER Narrative HISTORICAL RESULTS - 06/27/2015 1:28 PM SLATE HANDLER ? [facility] Microbiology ?[address] ??[place], [place] ??[address] ? Tele: ?Carolynn Bangura M.D. - Cardiology Consultant - Benoit Ramirez - Administrative ?Director ?? Patient: BERNIE CAREY ? Admission #: ??[id number] ?? : 1940 ?Location: [facility] ?? Gender: M ?? Admit Date: 06/15/2015 ? = = = = = = = = = = = = = = = = = = = = = = = = = = = = = = = = = = = = = = ?? Body Fluid Culture ?Final ?? Fluid ? See Comment ?? Collected: ??06/15/2015 17:28 ?? Inoculated: ??06/15/2015 19:27 ?? Report Date: ??06/27/2015 12:50 ? Gram stain ?No organisms seen ?? Culture Result ?No Growth ?? UPDATED RESULTS APPEAR ABOVE. ?? Culture Result @No growth to date ? @Culture in progress ?? UPDATED RESULTS APPEAR ABOVE. ?? Culture Result ? @No Growth ?? Isolate 1: ? No previously released data found. = = = = = = = = = = = = = = = = = = = = = = = = = = = = = = = = = = = = = ? Physician: ?[facility] Microbiology Report-[facility] ? us Historical Provider LAB MICROBIOLOGY - GENERA L ORDERABLES Final Result HISTORICAL RESULTS * Mycology Microbiology (06/15/2015 12:00 AM SLATE HANDLER) 06/15/2015 12:0 0 AM SLATE HANDLER Narrative HISTORICAL RESULTS - 07/14/2015 1:27 PM SLATE HANDLER ? [facility] Microbiology ?[address] ??[place], [place] ??[address] ? Tele: ?Carolynn Bangura M.D. - Cardiology Consultant - Benoit Ramirez - Administrative ?Director ?? Patient: BERNIE CAREY ? Admission #: ??[id number] ?? : 1940 ?Location:[address] ?? Gender: M ?? Admit Date: 06/15/2015 ? = = = = = = = = = = = = = = = = = = = = = = = = = = = = = = = = = = = = = = ?? Fungus Culture-Other ?Final ?? Fluid ? See Comment ?? Collected: ??06/15/2015 17:28 ?? Inoculated: ??06/15/2015 19:27 ?? Report Date: ??07/14/2015 09:24 ? L 2 - L 3 disc space ?? Culture Result ?No fungus isolated = = = = = = = = = = = = = = = = = = = = = = = = = = = = = = = = = = = = = ? Physician: ?[facility] Microbiology Report-ClinDesk ? us Historical Provider MD LAB MICROBIOLOGY - GENERA L ORDERABLES Final Result Performing Organization Address City/State/[facility] Co de Phone Number HISTORICAL RESULTS * Methicillin Resistant Staphylococcus Aureus, PCR, Microbiology (06/15/2015 12:00 AM SLATE HANDLER) 06/15/2015 12:0 0 AM [facility]ATE HAND[employer]ER Narrative HISTORICAL RESULTS - 06/27/2015 1:28 PM SLATE HANDLER ? [facility] Laboratory Microbiology ?[address] ??[place], [place] ??[address] ? Tele: ?Carolynn Bangura M.D. - Cardiology Consultant - Benoit Ramirez - Administrative ?Director ?? Patient: BERNIE CAREY ? Admission #: ??[id number] ?? : 1940 ?Location: [address] ?? Gender: M ?? Admit Date: 06/15/2015 ? = = = = = = = = = = = = = = = = = = = = = = = = = = = = = = = = = = = = = = ?? MRSA Screen, PCR ? Nasal Swab ?? Collected ? 06/15/2015 ? Expected Result ? 18:03 ?? MRSA Screen, ?MRSA NEGATIVE ?MRSA NEGATIVE ?? PCR = = = = = = = = = = = = = = = = = = = = = = = = = = = = = = = = = = = = = ? Physician: ?[facility] Microbiology Report-ClinDesk ? us Historical Provider LAB MICROBIOLOGY - GENERA L ORDERABLES Final Result Performing Organization Address City/State/[facility] Co de Phone Number HISTORICAL RESULTS documented in this encounter Visit Diagnoses Diagnosis Infection and inflammatory reaction due to other internal orthopedic prosthetic devices, implants and grafts, initial encounter (HCC) Intraspinal abscess and granuloma Body mass index (BMI) of 40.0-44.9 in adult (HCC) Osteomyelitis of vertebra of lumbar region (HCC) Type 2 diabetes mellitus with hyperglycemia ([facility]/HCC) (HCC) Morbid (severe) obesity due to excess calories (HCC) Discitis of lumbar region Other and unspecified disc disorder of lumbar region Spinal stenosis of lumbar region Essential (primary) hypertension Unspecified essential hypertension 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) Hyperlipidemia Other and unspecified hyperlipidemia Enlarged prostate without lower urinary tract symptoms (luts) Low back pain Lumbago Other chronic pain Claustrophobia Other isolated or specific phobias Constipation Unspecified constipation Visual loss Unspecified visual loss Acquired absence of spleen Other acquired absence of organ Presence of both artificial knee joints 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
--- OUTSIDE RECORDS SUMMARY | 2024-07-24 00:12 | XMS_ITS | Encounter Summary ---
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 Name Role Phone Unavailable Primary Care Provider Unavailabl e Encounter Details Date Type Department Care Team (Latest Contact Info) Description 03/19/2016 7:15 PM CDT - 03/24/2016 3:03 PM CDT Hospital Encounter [facility] Gerald Francisco MD [address] [facility] [place], [place] [id number] Nicole Dasilva MD [address] [place] [address] Other pulmonary embolism without acute cor pulmonale (CMS/HCC); Acute kidney failure (CMS/HCC); Hypotension; Paroxysmal atrial fibrillation (CMS/HCC); Type 2 diabetes mellitus with hyperglycemia (CMS/HCC); Type 2 diabetes mellitus without complications ([facility]/HCC); Morbid (severe) obesity due to excess calories ([facility]); Hyperlipidemia; Hypertensive chronic kidney disease with stage 1 through stage 4 chronic kidney disease, or unspecified chronic kidney disease; Syncope and collapse; Chronic kidney disease; Calculus of kidney; Enlarged prostate without lower urinary tract symptoms (luts); Hypoxemia; intermediate current use of aspirin; Personal history of pulmonary embolism; Personal history of other venous thrombosis and embolism; Personal history of nicotine dependence; Acquired partial absence of pancreas Social History Tobacco Use Types Packs/Day Years Used Date Smoking Tobacco: Never Assessed Sex and Gender Information Value Date Recorded Sex Assigned at Not on file 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 Gender Identity Not on file Sexual Orientation Not on file documented as of this encounter Last Filed Vital Signs Vital Sign Reading Time Taken Comments Blood Pressure 115/80 03/24/2016 1:26 PM CDT Pulse 72 03/24/2016 1:26 PM CDT Temperature - - Respiratory Rate - - Oxygen Saturation - - Inhaled Oxygen Concentration - - Weight 155.4 kg (342 lb 9.5 oz) 03/24/2016 1:40 PM CDT Height 188 cm (6' 2.02 ) 03/24/2016 1:40 PM CDT Body Mass Index 43.97 03/24/2016 1:40 PM CDT documented in this encounter Discharge Summaries * Provider, MD Dee - 03/24/2016 12:00 AM CDT [facility] Patient: BERNIE CAREY Account: [id number] Room No: 1354-A : 1940 Admit Date: 03/19/2016 Attending: GERALD FRANCISCO M.D. Disch. Date: 03/24/2016 Dictating: GERALD FRANCISCO M.D. Patient Type: IP DISCHARGE SUMMARY REASON FOR ADMISSION 1. Syncope secondary to a new onset rapid AFib. 2. Rapid AFib most likely secondary to underlying new acute pulmonary embolism. 3. Acute renal failure. 4. Diabetes mellitus type 2. 5. Hematuria, improving. PRIMARY CARE PROVIDER Dr. Myron Diop CONSULTANTS Dr. Aidan Guzman, Dr. Norberto Snow. SIGNIFICANT TESTS AND PROCEDURES PERFORMED Echocardiogram 03/20 demonstrating normal global regional LV systolic function, LV cavity size, normal RV size and function, normal RV pressure. EKG 03/[address]-T-wave abnormality, ultimately sinus rhythm. Lower extremity Dopplers, fairly small amount of acute DVT in the left popliteal vein. VQ scan 03/19 moderate to large mismatched defect in the right upper lobe. L-spine MRI posterior instrumented fusion spans L1-L4 posterior decompression, no marrow edema, small fluid collection in the posterior subcu tissues centered at L3, small pseudomeningocele cannot be excluded. Renal CT 03/23 demonstrating no definite ureteral stones and no hydronephrosis, small left renal stone. HOSPITAL COURSE Patient was seen examined with medicine service with consultations to pulmonary and cardiology services. Patient was loaded with amiodarone with good success and ultimately converted to oral medicine. Patient was to require ongoing anticoagulation for multiple reasons: PE. The patient will require lifelong anticoagulation. The patient had been off of Xarelto for only 1 month when the event occurred. Patient even had an IVC filter when this occurred. During this time, the patient also had significant hematuria, however the hematuria started to improve. The patient did not pass any clots, and patient was able to void completely. According to discussion with the patient and the family, the patient has known underlying preexisting issues and has actually undergone bladder cystoscopy by Dr. Geller. I have reviewed this information with one of Dr. Geller' colleagues, and given that patient's symptoms are improving hemoglobin is remaining stable, there is no passage of clots, and patient is able to void completely, the patient does not require acute further intervention and can follow up as an outpatient. As such plans were made for discharge. I discussed this case with therapy as well. Patient had made significant strides and improvement over the last 3 days. CONDITION AT TIME OF DISCHARGE Stable for discharge. ACTIVITY Advance as tolerated. DIET Heart healthy diabetic. CODE STATUS Full code. PLANS FOR MEDICAL FOLLOWUP 1. Patient should follow up with primary care provider Dr. Myron Diop in approximately 1 week. 2. Patient should follow up with Dr. Snow or Dr. Lo in approximately 2 weeks to 3 weeks. 3. Patient should follow up Dr. Aidan Guzman in 1 month I have also discussed this case with case maker to assist with medications. MEDICATIONS AT THE TIME OF DISCHARGE 1. Vitamin D3, 2000 units daily. 2. Doxycycline 100 mg twice daily. 3. Finasteride 5 mg daily. 4. Insulin glargine 46 units at bedtime-the patient had been receiving 37 units here, adjust as needed for goal control. 5. Scheduled prandial lispro 4 units and the patient was receiving 4 units in the hospital with meals. Patient takes 6 units at home. Adjust as needed for goal control. 6. Metoprolol tartrate 12.5 mg twice daily. 7. Lyrica 75 mg 3 times daily. 8. Tamsulosin 24 twice daily. 9. Triamcinolone topically as needed. 10. Amiodarone 200 mg twice daily x1 month then as guided per Cardiology. 11. Aspirin 325 daily. 12. Lipitor 20 mg at bedtime. 13. Baclofen 10 mg 3 times daily. 14. Xarelto 15 mg twice a day x3 weeks then decrease to 20 mg daily MEDICATIONS STOPPED Simvastatin. PENDING STUDIES 1. Further imaging and follow up with patient's cardiopulmonary issues per specialist. 2. Ongoing outpatient follow up for routine including diabetic management. TIME SPENT Greater than 35 minutes discussing this case with the patient, family, therapy and case management. Electronically Authenticated and Edited by: Gerald Francisco MD On 04/25/2016 11:59 AM CDT GERALD FRANCISCO M.D. [facility] TD: 03/25/2016 15:35 CC: Navid THOMPSON M.D. MARTIN SCHWARZE, DO DEMETRIOS KATSIKAS, MD documented in this encounter Consult Notes * ProviderDee MD - 03/21/2016 12:00 AM CDT [facility] Patient: BERNIE CAREY Account: [id number] Room No: 1354-A : 1940 Consult Date: 03/21/2016 Attending: GERALD FRANCISCO M.D. Admit Date: 03/19/2016 Consult.: NORBERTO SNOW DO Disch. Date: 03/24/2016 Patient Type: IP CONSULTATION NOTE CONSULTING PROVIDER Norberto Snow MD REASON FOR CONSULTATION Atrial fibrillation with rapid ventricular response. HPI Mr. Carey is a very pleasant, 75-year-old male with a history of paroxysmal atrial fibrillation dating back to 2010, chronic back pain status post back surgery in 2014 that was complicated by a DVT and pulmonary embolism. Back in June he had an IVC filter placed and was managed with anticoagulation however that was stopped approximately 1 month ago. During that hospitalization back in June 2015 his family states that he also went into atrial fibrillation. He has seen a stemhole borer down at [place] for this. Apparently today Mr. Carey had been walking around right after he got done getting an MRI of his back. He was off of his monitor tech. He was retirement down his mai. He states that he had sudden onset of weakness and lightheadedness and needed to sit down. He denies any chest pain, pressure, or discomfort during this episode. Once he sat down in a chair he passed out. He did have a pulse and was breathing but he was unresponsive. He lost control of his bladder. He was taken back to his room where he was hooked back up to the monitor. He was found to be in sinus rhythm and still unresponsive. Patient was hypoxic, did receive some ventilation with a bag mask and quickly regained consciousness. The patient's 1st EKG shows sinus rhythm with a rate in the 90s without any significant ST-T wave changes. About 25 minutes later he was noted to go into atrial fibrillation with rapid ventricular response with rates in the 130s with some nonspecific inferior lateral ST changes. His 1st troponin was negative. He had an echocardiogram which was reviewed, showed ejection fraction of 72%. Showed some moderate LA enlargement, with a LA size of 5.0. The patient was noted to have heart rates up in the 160s on the telemetry monitors this afternoon while I was seeing him. At that time he was complaining of being slightly short of breath. PAST MEDICAL HISTORY Includes DVT and pulmonary embolus status post IVC filter. Chronic back pain status post back surgery in 2013 and 2014. 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 Bilateral knee surgeries. SOCIAL HISTORY He occasionally drinks alcohol. He does not smoke, he quit 35-40 years ago. Does not use any illicit drugs. He is and lives at home with his . FAMILY HISTORY Mother at age 49 with complications of postsurgical pulmonary embolus. Father at age 85 from an aneurysm. He had a brother who at age 40 had some heart problems. ALLERGIES INCLUDE ADHESIVE TAPE. HOME MEDICATIONS Include: 1. Vitamin D3 2000 international units daily. 2. Doxycycline 100 mg b.i.d. 3. Finasteride 5 mg daily. 4. Insulin. 5. Lyrica 50 mg t.i.d. 6. Metoprolol tartrate 50 mg b.i.d. 7. Simvastatin 40 mg at bedtime. 8. 0.5 mg b.i.d. 9. Triamcinolone topical, 1 application daily. REVIEW OF SYSTEMS General: Denies any recent weight loss, weight gain, fever, chills. HEENT: Denies any blurred vision, any change in his vision. Denies any hearing loss. Cardiovascular: Denies any chest pain, pressure, or discomfort. Denies any palpitations PND or orthopnea. Respiratory: Denies any coughing, wheezing, or hemoptysis. GI: Denies any diarrhea constipation or blood in his stool. : Denies any hematuria, nocturia. Musculoskeletal: Denies any lower extremity weakness or edema. Denies any claudication. Neurological: Denies any TIAs, any strokes. Positive for a syncopal episode that occurred this afternoon. Endocrine: Denies any sensitivity to heat or cold. Hematological: Denies any evidence of any bleeding or bruising. PHYSICAL EXAM Mr. Carey is an obese 75-year-old male who is currently in no apparent distress. Skin: Warm and dry to touch. His blood pressure is 120/70 and he is afebrile. Neck: No palpable masses. No JVD. Carotid pulse are full and equal bilaterally without bruits. Heart: Rate and rhythm regular without any murmurs, rubs, or gallops noted. Lungs: Clear to auscultation bilaterally. Abdomen: Large, soft and nontender. Musculoskeletal: There is trace lower extremity edema noted. There is palpable DP pulses noted bilaterally. Neurological: There is no gross motor sensory deficit noted. Psychiatric: Appropriate mood, memory, judgment. LABS His sodium is 136, potassium 4.3, chloride 107, CO2 16, BUN 22, creatinine 1.3, and glucose 178. His 1st troponin is 0.04. His white count is 12.3, hemoglobin 12.7, hematocrit 39.9, and platelets 265. His pH was 7.37, his pCO2 is 37, his PO2 is 86, and his bicarb 21. His lower extremity Doppler shows a small acute left deep venous thrombosis. His echocardiogram showed ejection fraction 72% with normal RA size, moderate LA enlargement, and normal pulmonary pressures. IMPRESSIONS 1. Atrial fibrillation with rapid ventricular response. The patient left atrium is enlarged and he has history of paroxysmal atrial fibrillation dating back to 2010. Apparently per the family he went back into atrial fibrillation in June of 2015 when he had his pulmonary embolus as well. Suspect this is due to his hypoxic/syncopal episode. Patient was initially in sinus rhythm after he had a syncopal episode. He then went and atrial fibrillation with rapid ventricular rate. Rates in the 130s on EKG with eventual rates up to 150s - 160s. Amiodarone bolus and drip started. Shortly after he was started he converted back to sinus rhythm. Will continue with IV amiodarone throughout the night and then convert to p.o. 2. Syncope, unclear etiology. Patient was off the monitor when he had a syncopal event. However when he was placed on the monitor he was in sinus rhythm. Patient was hypoxic during the event, questionable possible pulmonary embolus (patient was started on Xarelto prior to this and does have an IVC filter in). Will continue to follow his troponins. If troponins remain negative consider stress test as an outpatient. 3. Acute deep venous thrombosis/pulmonary embolus. Pulmonary following, now on Xarelto 50 mg b.i.d. and he does have a IVC filter in place. Thank you for this consultation. Electronically Authenticated by: Norberto Snow DO On 03/24/2016 12:02 PM CDT Electronically Authenticated and Edited by: AURA Hidalgo On 03/25/2016 08:00 AM CDT NORBERTO SNOW DO Dictated by: AURA HIDALGO [facility] TD: 03/21/2016 17:36 * Provider, MD Dee - 03/20/2016 12:00 AM CDT [facility] Patient: BERNIE CAREY Account: [id number] Room No: 1354-A : 1940 Consult Date: 03/20/2016 Attending: GERALD FRANCISCO M.D. Admit Date: 03/19/2016 Consult.: AIDAN GUZMAN M.D. Disch. Date: Patient Type: IP PULMONARY CONSULTATION CONSULTING PHYSICIAN Dr. Aidan Guzman. REFERRING PHYSICIAN Dr. Dasilva. PRIMARY CARE PHYSICIAN Dr. Myron Diop. REASON FOR CONSULTATION Pulmonary embolism. HISTORY OF PRESENT ILLNESS Mr. aCrey is a very pleasant 75-year-old man with multiple medical illnesses including but not limited to chronic back pain for which he underwent back surgery in 2013 as well as in June 2015. In June 2015, he was noted to have diskitis and had a surgery. His postoperative course was complicated by deep venous thrombosis, pulmonary embolism. He had an IVC filter placed and managed with anticoagulation once cleared from surgery. He was eventually discharged with warfarin which was subsequently converted to Xarelto. Approximately 1 month back, his Xarelto was discontinued, as it was thought that he had provoked pulmonary embolism that was adequately treated with more than 6 months of treatment. Of note, he continues to have an IVC filter in place. Mr. Carey presented to the hospital with chief complaint of increased low back pain/flank pain. There is also mild hematuria. Workup is underway for evaluation of possible kidney stone. Considering his prior history of pulmonary embolism, a ventilation-perfusion scan was performed which revealed a mismatched defect in the right upper lobe. This was thought to represent an acute pulmonary embolus so pulmonary consultation was requested. He was started on a heparin drip. From a symptomatic standpoint, Bernie denies any significant change in his dyspnea. He also denies any cough or hemoptysis. Denies any pleuritic chest pain or palpitations. He does report mild lower extremity edema that is chronic. He does report that his activity is somewhat limited due to back pain issues but overall, he has not had any change in his exercise capacity recently. PAST MEDICAL HISTORY 1. Deep venous thrombosis, pulmonary embolism, status post IVC filter. 2. Chronic back pain status post surgery. 3. Hypertension, hyperlipidemia, prostatic enlargement, atrial fibrillation. 4. Pancreatic mass, status post partial pancreatectomy in 2010. ALLERGIES ADHESIVE TAPE. CURRENT MEDICATIONS Reviewed and are as noted in the medical record. SOCIAL HISTORY Bernie has good social support. is at bedside. Does not smoke currently and has not smoked in at least 30-40 years. FAMILY HISTORY Noncontributory from a pulmonary illness standpoint. REVIEW OF SYSTEMS Pertinent positive review of systems are detailed in the history of present illness. All other systems are reviewed and are negative. PHYSICAL EXAMINATION Vital Signs: Reveal blood pressure of 110/30, heart rate of 70 per minute, respiratory rate of 18 per minute, temperature 36.6, oxygen saturation is 96% on 2 L. General Appearance: Does not appear in any distress. Head Eye ENT: Does not reveal any trauma to the head. Normocephalic head is noted. No icterus is noted. Mallampati class 3+ airway is noted. Neck: Supple without any adenopathy or jugular venous distention. Chest: Reveals symmetric expansion bilaterally. Lung: Reveals good air entry bilaterally without any crackles or wheezing. Cardiac: Reveals regular rate and rhythm without significant murmur. Abdominal: Soft without any tenderness or organomegaly. Extremity: Does not reveal any edema, clubbing or cyanosis. Skin: Does not reveal any rashes. Lymph Node: Does not reveal any cervical or inguinal adenopathy. Neurological: Reveals an awake and alert man following simple commands. Psychiatric: Does not reveal any agitation. DATA Troponin is negative. D-dimer is elevated. Comprehensive metabolic panel reveals a creatinine of 2.11 which is presumed to be acute. CBC reveals white cell count of 11.4, platelet count of 326,000 BNP is 83. Ventilation perfusion scan as well as CT scan from June 2015 were personally reviewed. Ventilation perfusion scan certainly reveals a mismatched defect in the right upper lobe. However, CT scan from June 2015 represents a clot essentially completely occluding the right upper lobe branch of the right pulmonary artery. ASSESSMENT AND PLAN 1. Abnormal ventilation perfusion scan--primary question as per the Pulmonary team is whether this represents recurrent embolic event while the patient has an inferior vena cava filter versus a chronic pulmonary embolus that has not completely resolved even after 6-9 months of anticoagulation. 2. Acute renal failure/hematuria--concerning for nephrolithiasis. 3. Morbid obesity but without clear symptoms of obstructive sleep apnea. 4. Other medical illnesses as detailed above. Discussion--ventilation perfusion scan certainly reveals a mismatched defect in the right upper lobe. However, CT scan of the chest from June 2015 reveals a completely occluded right upper lobe branch of the pulmonary artery. There this can be interpreted as a head non resolved thrombus from June 2015 versus a new embolic event. However, in the setting of complete lack of new symptoms, this likely represents an unresolved thrombus. 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 RECOMMENDATIONS 1. Anticoagulation--plan for lifelong anticoagulation. 2. Echocardiogram to look for chronic thromboembolic pulmonary hypertension. 3. Agree with the lower extremity venous Dopplers though they are unlikely to size changer even if they are positive. 4. Renal stone/acute renal failure management per primary team. 5. Sleep study as outpatient. 6. Wean oxygen supplementation as possible during the day. Please perform an exercise oximetry before discharge. I have discussed my findings and recommendations with the referring physician, Dr. Dasilva. Will continue to follow Mr. Carey and further recommendations are to be based on his clinical course. Electronically Authenticated by: Aidan Guzman MD On 03/22/2016 01:09 PM CDT AIDAN GUZMAN M.D. [facility] TD: 03/21/2016 00:22 CC: Navid THOMPSON MD documented in this encounter Miscellaneous Notes * Admission Note - Provider, MD Dee - 03/19/2016 12:00 AM CDT [facility] Patient: BERNIE CAREY Room No: 1354-A Account: [id number] Service Date: 03/19/2016 : 1940 Admit Date: 03/19/2016 Attending: GERALD FRANCISCO M.D. Disch. Date: 03/24/2016 Dictating: NICOLE DASILVA MD Patient Type: IP ADMISSION NOTE PRIMARY CARE PHYSICIAN Myron Diop MD CHIEF COMPLAINT Shortness of breath and low back pain. HISTORY OF PRESENT ILLNESS Bernie Carey is a 75-year-old male with a complicated orthopedic as surgical history. Patient has a prior history of L1 through L3 lumbar decompression and fusion in January 2014. He presented in June 2015 with worsening low back pain. He had an MRI that was concerning for L2-L3 diskitis. Given the complexity of the case. Patient was transferred to [facility] under Dr. Saud Walker. He underwent an extensive surgery at [facility]. His postoperative course was complicated by paroxysmal atrial fibrillation, pulmonary embolism and deep vein thrombosis. He had an IVC filter placed. The patient converted to normal sinus rhythm. 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 He was then discharged in the beginning of July to rehab. He completed 6 weeks of IV ertapenem and IV vancomycin and remains on doxycycline suppression. The patient states he has been following up with his spine surgeon and about a month ago had various studies that showed that he was doing well. He has not been having any lower back pain and has not required any narcotics at all since he came home from rehab. His activities are limited at baseline as he tends to get short of breath and fatigued whenever walks about 20-30 feet. Patient states about 2 weeks ago he was trying to get out of bed to go to the bathroom when he had some lower back pain that radiated down to his right lower extremity. He became diaphoretic and nauseous. He somehow got himself to the bathroom and after using the bathroom he felt better. At that time 911 was called however since he felt better and he had no further pain he did not go to the hospital. He was in his usual state of health. He even went on a fishing trip without any problems. However early this morning around 4 o'clock. Once again, when he tried to get out of bed he had severe pain in his lower back that radiated down to his right lower extremity. This was associated with sweats, diaphoresis and shortness of breath. He went back to bed and around 5:30 he tried to have a bowel movement but could not move again, had worsening pain, 911 was called and he was then brought to the emergency room for evaluation. He describes the pain as being severe starting in his low back and radiating down to his leg, sharp, aggravated by movement with no real relieving factors and not associated with any numbness or tingling. This pain was different from the pain he had when he had trouble with his back in June and July of last year. He complains of shortness of breath when he is in pain. Both the patient and his thought that they were kidney stones as he has a history of kidney stones. The patient was taken by EMS to [place] emergency room. There his blood pressure was noted to fall as low as 58/36. I saw instances where his blood pressure was 62/37 and then up to 84/55. His urinalysis was consistent with hematuria. His BMP showed a sodium of 139, potassium 5.3, bicarb was 20, BUN 24, creatinine was 2.06, with a glucose of 176. The patient was told in the past that one of his kidneys does not work well, but he does not know what his creatinine was. He had a CT scan of the abdomen and pelvis that showed gallbladder stones but no obstruction. He had hypotrophic kidneys, and he had a left kidney stone that was nonobstructive. He was then transferred to our emergency room for further evaluation. Patient states that with history of DVT and PE he was on Coumadin until about 2 months ago. He was switched over to Xarelto. A month ago his primary care physician took him off the Xarelto. Of note, however he still has his IVC filter in place. REVIEW OF SYSTEMS Constitutional: No fevers, chills, or night sweats. Head and Neck: No headache or neck pain. Eyes and Ears: No vision or hearing changes. CVS: No chest pain, chest pressure, palpitations, orthopnea, PND. Respiratory: No cough or sputum production. GI: No nausea, vomiting, abdominal pain, diarrhea, constipation, melena, hematochezia. : No changes in micturition. Neuro: No focal weakness, numbness or tingling. Psych: No delusions or hallucinations. Heme: No easy bruising or bleeding. PAST MEDICAL HISTORY 1. Hypertension. 2. Diabetes mellitus type 2. He is a 6 units of Humalog before meals and 44 units of Lantus at bedtime. He did not receive his insulin today. 3. Hyperlipidemia. 4. BPH. 5. Bilateral total knee replacement. 6. History of spinal fusion. 7. L2-L3 diskitis status post surgery and 6 weeks of IV antibiotics and currently on doxycycline suppression. 8. History of DVT PE. 9. Postoperative atrial fibrillation. 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 11. 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 ALLERGIES No known drug allergies. HE IS ALLERGIC TO TAPE. SOCIAL HISTORY He has not smoked for 35 years. Occasionally drinks alcohol. No history of drug use. He lives with his . FAMILY HISTORY Mother at age of 49 from a blood clot. Father at age of 85 from an aneurysm. PHYSICAL EXAMINATION He is morbidly obese. He is lying in bed. He has no acute distress. Vital Signs: Blood pressure is 115/60, pulse is 67, respiratory rate 20, temperature 36.6, O2 sats 100% on 2 L. HEENT: Pupils are equal and reactive to light and accommodation. Extraocular muscles intact. Anicteric sclerae. [place] conjunctivae. Oral mucosa is dry. No ulcers. No JVD, lymphadenopathy or thyromegaly. Lungs: Bilateral air entry. No wheezes, rales, or rhonchi. Heart: S1, S2. No murmurs, rubs, or gallops noted. Abdomen: Obese, nontender, nondistended. Positive bowel sounds. Extremities: No cyanosis, edema, clubbing. Neurological: No focal neurological deficits. ANCILLARY STUDIES In addition to the above studies his CBC, WBC count of 15.8, hemoglobin 14.6, platelet count of 334. Here his D-dimer was 6660. CMP showed a potassium of 5.2, creatinine of 2.11. CBC: WBC count was 11.4, hemoglobin 14, platelet count was 329. BNP was 83. Chest x-ray showed no change. Ventilation perfusion scan showed moderate to large mismatched defect in the right upper lobe consistent with intermediate to high probability for pulmonary embolism. ASSESSMENT AND PLAN 1. Suspected pulmonary embolism. The patient has had a prior history of pulmonary embolism. He has an IVC filter in place. Will anticoagulate him with enoxaparin. He was recently taken off Xarelto about a month ago. The question is if he can restart Xarelto. Will check a lower extremity ultrasound. Will also check a hypercoagulable panel. Pulmonary has been consulted for evaluation. Will check an echocardiogram to evaluate the right side of his heart. 2. Suspected acute renal failure. The differential diagnosis could be prerenal etiology secondary to hypertension. On the other hand he could have passed a stone and could have had obstructive uropathy just given his symptoms. Continue with IV fluid hydration. Will check a creatinine in the morning. I stopped his metoprolol as his blood pressure was very low. It continues to remain low. Will restart if his blood pressure improves. 3. History of nephrolithiasis. The patient and his are really concerned that the patient is passing a stone and would like it addressed. However his CT scan of the of the abdomen and pelvis at the outside facility only showed 1 stone in the left kidney and it was nonobstructing. Unclear if anything can be done at this time. I did try to reassure both the patient and his . 4. Diabetes mellitus type 2 with hyperglycemia. I am going to decrease his Lantus to 37 units, premeal Humalog to 4 units, and increase his sliding scale to medium dose. Will check his blood sugars before meals and at bedtime. 5. Hyperlipidemia. Continue with statin. 6. History of L2-L3 diskitis. Continue with suppressive doxycycline suppression. 7. He has been complaining of back pain radiating to the leg however it has resolved. He has only had 2 instances in the last 2 weeks. The patient does not think this is related to his back as the pain is different. Once again, will monitor this closely. If he has an increase in his back pain then we will re-image him. 8. Deep venous thrombosis prophylaxis. He is on enoxaparin. ANTICIPATED LENGTH OF STAY Greater than 2 midnights. Electronically Authenticated and Edited by: Gladys Dasilva On 04/09/2016 05:45 AM CDT MD AWA PURDY/fe TD: 03/20/2016 05:54 CC: MYRON DIOP M.D. documented in this encounter Plan of Treatment Not on file documented as of this encounter Procedures Procedure Name Priority Date/Time Associated Diagnosis Comments BLOOD GLUCOSE Routine 03/24/2016 11:13 AM CDT PLASMA CREATINE KINASE (CK) Routine 03/24/2016 9:38 AM CDT BLOOD GLUCOSE Routine 03/24/2016 5:51 AM CDT PLASMA RENAL PANEL Routine 03/24/2016 2: 46 AM CDT PLASMA MAGNESIUM Routine 03/24/2016 2:46 AM CDT PLASMA CREATINE KINASE (CK) Routine 03/24/2016 2:46 AM CDT BLOOD CELL COUNT (CBC), MORPHOLOGIC EXAM Routine 03/24/2016 2:46 AM CDT BLOOD GLUCOSE Routine 03/24/2016 1:37 AM CDT DISCHARGE LABORATORY CUMULATIVE REPORT 03/24/2016 BLOOD GLUCOSE Routine 03/23/2016 9:39 PM CDT BLOOD GLUCOSE Routine 03/23/2016 4:34 PM CDT RENAL COMPUTED TOMOGRAPHY (CT) WITHOUT CONTRAST, STONE PROTOCOL Routine 03/23/2016 4:29 PM CDT BLOOD GLUCOSE Routine 03/23/2016 11:15 AM CDT BLOOD GLUCOSE Routine 03/23/2016 6:10 AM CDT BLOOD GLUCOSE Routine 03/22/2016 10:23 PM CDT BLOOD GLUCOSE Routine 03/22/2016 4:32 PM CDT BLOOD GLUCOSE Routine 03/22/2016 11:23 AM CDT BLOOD GLUCOSE Routine 03/22/2016 6:42 AM CDT PLASMA COMPREHENSIVE METABOLIC PANEL Routine 03/22/2016 4:12 AM CDT BLOOD CELL COUNT (CBC), MORPHOLOGIC EXAM Routine 03/22/2016 4:12 AM CDT URINE MICROSCOPY Routine 03/22/2016 12:1 0 AM CDT URINALYSIS Routine 03/22/2016 12:10 AM CDT PLASMA TROPONIN I Routine 03/21/2016 11: 23 PM CDT BLOOD GLUCOSE Routine 03/21/2016 9:14 PM CDT BLOOD GLUCOSE Routine 03/21/2016 5:02 PM CDT PLASMA TROPONIN I Routine 03/21/2016 3:2 5 PM CDT BLOOD LACTIC ACID Routine 03/21/2016 1:1 7 PM CDT XR CHEST 1 VIEW Routine 03/21/2016 12:42 PM CDT BLOOD GLUCOSE Routine 03/21/2016 12:02 PM CDT PLASMA TROPONIN I Routine 03/21/2016 10: 57 AM CDT PLASMA MAGNESIUM Routine 03/21/2016 10:5 7 AM CDT PLASMA CREATINE KINASE (CK) FRACTION Routine 03/21/2016 10:57 AM CDT PLASMA BASIC METABOLIC PANEL Routine 03/21/2016 10:57 AM CDT BLOOD CELL COUNT (CBC), MORPHOLOGIC EXAM Routine 03/21/2016 10:57 AM CDT BLOOD GAS, ARTERIAL Routine 03/21/2016 1 0:55 AM CDT BLOOD GLUCOSE Routine 03/21/2016 10:54 AM CDT MRI LUMBAR SPINE W WO CONTRAST Routine 03/21/2016 9:53 AM CDT PLASMA PARTIAL THROMBOPLASTIN TIME (PTT) Routine 03/21/2016 6:39 AM CDT PLASMA LIPID PANEL Routine 03/21/2016 6: 39 AM CDT PLASMA COMPREHENSIVE METABOLIC PANEL Routine 03/21/2016 6:39 AM CDT BLOOD CELL COUNT (CBC), MORPHOLOGIC EXAM Routine 03/21/2016 6:39 AM CDT BLOOD B-TYPE NATRIURETIC PEPTIDE (BNP) Routine 03/21/2016 6:39 AM CDT BLOOD GLUCOSE Routine 03/21/2016 6:05 AM CDT PLASMA RENAL PANEL Routine 03/21/2016 5: 57 AM CDT ELECTROCARDIOGRAPHY (ECG) 03/21/2016 ELECTROCARDIOGRAPHY (ECG) 03/21/2016 ELECTROCARDIOGRAPHY (ECG) 03/21/2016 ELECTROCARDIOGRAPHY (ECG) 03/21/2016 PLASMA PARTIAL THROMBOPLASTIN TIME (PTT) Routine 03/20/2016 10:44 PM CDT BLOOD GLUCOSE Routine 03/20/2016 9:16 PM CDT BLOOD GLUCOSE Routine 03/20/2016 4:34 PM CDT BLOOD B-TYPE NATRIURETIC PEPTIDE (BNP) Routine 03/20/2016 2:43 PM CDT BLOOD GLYCATED HEMOGLOBIN Routine 2015 2:40 PM CDT US GUIDED VEIN MAPPING BILATERAL COMPELTE Routine 03/20/2016 11:38 AM CDT BLOOD GLUCOSE Routine 03/20/2016 11:16 AM CDT PLASMA TROPONIN I Routine 03/20/2016 9:5 6 AM CDT URINALYSIS Routine 03/20/2016 9:40 AM CDT PLASMA PARTIAL THROMBOPLASTIN TIME (PTT) Routine 03/20/2016 9:23 AM CDT BLOOD GLUCOSE Routine 03/20/2016 7:28 AM CDT SERUM ANTINUCLEAR AB ([place]) Routine 03/20 6:01 AM CDT PLASMA FIBRINOGEN Routine 03/20/2016 6:0 1 AM CDT PLASMA BASIC METABOLIC PANEL Routine 03/20/2016 6:01 AM CDT BLOOD HEMOGLOBIN A1C Routine 03/20/2016 6:01 AM CDT BLOOD CELL COUNT (CBC), MORPHOLOGIC EXAM Routine 03/20/2016 6:01 AM CDT BLOOD B-TYPE NATRIURETIC PEPTIDE (BNP) Routine 03/20/2016 6:01 AM CDT URINE MICROSCOPY Routine 03/20/2016 4:40 AM CDT SERUM ANTITHROMBIN III ACTIVITY Routine 03/20/2016 3:25 AM CDT SERUM ANTICARDIOLIPIN AB, IGG, IGM Routine 03/20/2016 1:01 AM CDT PLASMA LUPUS ANTICOAGULANT Routine 03/20 1:01 AM CDT PLASMA HOMOCYSTEINE Routine 03/20/2016 1 :01 AM CDT BLOOD PROTHROMBIN A GENE MUTATION ANALYSIS Routine 03/20/2016 1:01 AM CDT BLOOD METHYL-TETRAHYDROFOLATE REDUCTASE (MTHFR) MUTATION Routine 03/20/2016 1:01 AM CDT BLOOD FACTOR V LEIDEN MUTATION Routine 03/20/2016 1:01 AM CDT STRESS ECHO EXERCISE W DOPPLER/CF WO CONTRAST 03/20/2016 12:00 AM CDT BLOOD GLUCOSE Routine 03/19/2016 10:55 PM CDT CHEST RADIOGRAPHY, FRONTAL (AP), LATERAL Routine 03/19/2016 6:57 PM CDT NM PULMONARY VENTILATION AND PERFUSION IMAGING Routine 03/19/2016 5:01 PM CDT PLASMA TROPONIN I Routine 03/19/2016 4:2 0 PM CDT PLASMA COMPREHENSIVE METABOLIC PANEL Routine 03/19/2016 4:20 PM CDT BLOOD D-DIMER Routine 03/19/2016 4:20 PM CDT BLOOD CELL COUNT (CBC), MORPHOLOGIC EXAM Routine 03/19/2016 4:20 PM CDT BLOOD B-TYPE NATRIURETIC PEPTIDE (BNP) Routine 03/19/2016 4:20 PM CDT BLOOD GLUCOSE Routine 03/19/2016 1:45 PM CDT URINE MICROBIOLOGY Routine 03/19/2016 12 :00 AM CDT DIAGNOSTIC OCCULT BLOOD, STOOL Routine 03/19/2016 12:00 AM CDT PROTHROMBIN GENE MUTATION 03/19/2016 FACTOR V LEIDEN MUTATION 03/19/2016 documented in this encounter Results * Blood glucose (03/24/2016 11:13 AM CDT) Glucose, POC, bld 120 70 - 140 mg/dl CDR HISTORICAL RESULTS Blood specimen (specimen) 03/24/2016 11:13 AM CDT Gerald Francisco MD LAB BLOOD ORDERABLES Final Re sult CDR HISTORICAL RESULTS * Plasma creatine kinase (CK) (03/24/2016 9:38 AM CDT) CK Acceptable CDR HISTO RICAL RESULTS Plasma 03/24/2016 9:38 AM CDT Avi Lo DO LAB BLOOD ORDERABLES Final Result Performing Organization Address [facility] Co de Phone Number CDR HISTORICAL RESULTS * Blood glucose (03/24/2016 5:51 AM CDT) Glucose, POC, bld 85 70 - 140 mg/dl CDR HISTORICAL RESULTS Blood specimen (specimen) 03/24/2016 5:51 AM CDT Gerald Francisco MD LAB BLOOD ORDERABLES Final Re sult Performing Organization Address [facility] de Phone Number CDR HISTORICAL RESULTS * (ABNORMAL) Blood cell count (CBC), morphologic exam (03/24/2016 2:46 AM CDT) WBC 10.9(H) 3.8 - 9.9 K/cumm CDR HISTORICAL RESULTS RBC 4.91 4.30 - 5.80 M/cumm CDR HISTORICAL RESULTS Hgb 12.5(L) 13.0 - 17.5 g/dl CDR HISTORICAL RESULTS Hct 39.0 38.9 - 50.3 % CDR HISTORICAL RESULTS MCV 79.4(L) 81.3 - 96.4 fl CDR HISTORICAL RESULTS MCH 25.5(L) 27.1 - 33.3 pg CDR HISTORICAL RESULTS MCHC 32.1(L) 32.3 - 35.7 g/dl CDR HISTORICAL RESULTS RDW 50.6(H) 35.7 - 48.2 fl CDR HISTORICAL RESULTS Rdw 17.9(H) 11.1 - 14.1 % CDR HISTORICAL RESULTS Platelets 300 150 - 400 K/cumm CDR HISTORICAL RESULTS MPV 10.5 9.1 - 12.3 fl CDR HISTORICAL RESULTS Neutrophils 52.2 44.0 - 80.0 % CDR HISTORICAL RESULTS Lymphocytes 16.2 13.0 - 44.0 % CDR HISTORICAL RESULTS Monos 11.8(H) 2.0 - 11.0 % CDR HISTORICAL RESULTS Eosinophils 17.6(H) 0.0 - 6.0 % CDR HISTORICAL RESULTS Basophils 0.8 0.0 - 3.0 % CDR HISTORICAL RESULTS Immature granulocytes 1.4(H) 0.0 - 1.0 % CDR HISTORICAL RESULTS NRBC 0.2 0.0 - 0.2 % CDR HISTORICAL RESULTS Neutrophils, abs 5.7 1.7 - 6.5 K/cumm CDR HISTORICAL RESULTS Lymphocytes, abs 1.8 0.8 - 3.3 K/cumm CDR HISTORICAL RESULTS Monocytes, absolute 1.3(H) 0.2 - 0.8 K/cumm CDR HISTORICAL RESULTS Eosinophils, abs 1.9(H) 0.0 - 0.5 K/cumm CDR HISTORICAL RESULTS Basophils, abs 0.1 0.0 - 0.1 K/cumm CDR HISTORICAL RESULTS Immature granulocyte, abs 0.2(H) 0.0 - 0.1 K/cumm CDR HISTORICAL RESULTS NRBC, abs 0.020 0.00 - 0.010 K/cumm CDR HISTORICAL RESULTS Blood specimen (specimen) 03/24/2016 2:46 AM CDT Gerald Francisco MD LAB BLOOD ORDERABLES Final Re sult Performing Organization Address City/[facility]/ZIP Co de Phone Number CDR HISTORICAL RESULTS * Plasma creatine kinase (CK) (03/24/2016 2:46 AM CDT) CK 148 49 - 397 IUnits/L CDR HISTORICAL RESULTS Plasma 03/24/2016 2:46 AM CDT Historical Provider LAB BLOOD ORDERABLES Ruth l Result CDR HISTORICAL RESULTS * Plasma magnesium (03/24/2016 2:46 AM CDT) Magnesium 1.9 1.6 - 2.3 mg/dl CDR HISTORICAL RESULTS Plasma 03/24/2016 2:46 AM CDT us Gerald Francisco MD LAB BLOOD ORDERABLES Final Re sult CDR HISTORICAL RESULTS * (ABNORMAL) Plasma renal panel (03/24/2016 2:46 AM CDT) Sodium 141 136 - 146 mmol/L CDR HISTORICAL RESULTS K, pl 3.6 3.3 - 4.9 mmol/L CDR HISTORICAL RESULTS Chloride 107 98 - 108 mmol/L CDR HISTORICAL RESULTS CO2 26 22 - 33 mmol/L CDR HISTORICAL RESULTS BUN 19(H) 7 - 18 mg/dl CDR HISTORICAL RESULTS Glucose 142(H) 70 - 140 mg/dl CDR HISTORICAL RESULTS Comment: Glucose is assumed to be non-fasting. ?? Fasting Glucose normal ranges are: 0 days - 2 months: ? 40 mg/dL - 100 mg/dL 2 months - 999 years: ?70 mg/dL - 99 mg/dL Creatinine 1.35 0.50 - 1.50 mg/dl CDR HISTORICAL RESULTS eGFR 52 ml/min/1.7 3 m2 CDR HISTORICAL RESULTS Comment: GFR Reference Range: = > 60 mL/min/1.73 m2 This result has been calculated assuming the patient is Non-. ??If the patient is , please multiply this result by 1.21. The GFR value is not recommended for medication dose adjustment for renal function, creatinine clearance values should be used. Calcium 8.7 8.5 - 10.5 mg/dl CDR HISTORICAL RESULTS Alb 2.4(L) 3.4 - 5.0 g/dl CDR HISTORICAL RESULTS Phosphorus, pl 4.3 2.5 - 4.5 mg/dl CDR HISTORICAL RESULTS Plasma 03/24/2016 2:46 AM CDT us Gerald Francisco MD LAB BLOOD ORDERABLES Final Re sult CDR HISTORICAL RESULTS * Blood glucose (03/24/2016 1:37 AM CDT) Glucose, POC, bld 87 70 - 140 mg/dl CDR HISTORICAL RESULTS Blood specimen (specimen) 03/24/2016 1:37 AM CDT Gerald Francisco MD LAB BLOOD ORDERABLES Final Re sult Performing Organization Address [facility] de Phone Number CDR HISTORICAL RESULTS * DISCHARGE LABORATORY CUMULATIVE REPORT (03/24/2016) Narrative 03/24/2016 Ordered by an unspecified provider. [facility] Provider LAB BLOOD ORDERABLES Ruth l Result * Blood glucose (03/23/2016 9:39 PM CDT) Glucose, POC, bld 78 70 - 140 mg/dl CDR HISTORICAL RESULTS Blood specimen (specimen) 03/23/2016 9:39 PM CDT Gerald Francisco MD LAB BLOOD ORDERABLES Final Re sult Performing Organization Address [facility] de Phone Number CDR HISTORICAL RESULTS * (ABNORMAL) Blood glucose (03/23/2016 4:34 PM CDT) Glucose, POC, bld 191(H) 70 - 140 mg/dl CDR HISTORICAL RESULTS Blood specimen (specimen) 03/23/2016 4:34 PM CDT Result [facility] Gerald Francisco MD LAB BLOOD ORDERABLES Final Re sult Performing Organization Address [facility] de Phone Number CDR HISTORICAL RESULTS * RENAL COMPUTED TOMOGRAPHY (CT) WITHOUT CONTRAST, STONE PROTOCOL (03/23/2016 4:29 PM CDT) Anatomical Region Laterality Modality N/A Computed Tomogra phy 03/23/2016 4:29 PM CDT Narrative 03/23/2016 4:43 PM CDT EXAM: ??CT KUB. HISTORY: ??Hematuria. ??Kidney stones.. TECHNIQUE: Noncontrast CT scan of the kidneys, ureters, and bladder was done to evaluate for renal and ureteral calculi. This is otherwise limited for other abdominal and pelvic pathology. FINDINGS: Right kidney: No definite renal stones seen. ??Indeterminate lesions present consider sonography. Left kidney: Stone in the lower left kidney measures 2 mm. ?? Indeterminate hypodensities. ??Consider sonography. Ureters: Nondilated. ??No definite ureteral stones. Additional incidental findings include pleural thickening at the bases as well as some atelectasis or scar and old rib fractures unchanged from 03/19/2016. ??Significant artifact from prior spinal surgery. ??Degenerative changes spine and hips. ??Bone graft harvesting suspected of the left ilium. ??Inferior vena caval filter present. Food in the stomach. Moderate amount of colonic stool. Suspicion of gallstones in the gallbladder. Adrenal glands normal in size. Postop changes anterior abdominal wall. Prominent prostate gland with calcifications. Probable diverticulum off the right lateral bladder wall with some mild inflammatory change around it. ??Question inflammation of a bladder diverticulum. ??Other diverticula are present. ??Consider cystoscopy. ??Bladder sonogram may be useful. ??Clinical correlation suggested. ??Appearance of the bladder diverticulosis fairly similar to the 03/19/2016 scan. Moderate amount of colonic stool. ??No bowel obstruction seen. Renal hypodensities lesions are present on both sides indeterminate and incompletely assessed without contrast. ??Consider renal sonogram. Probable duodenal diverticulum. Severe atherosclerosis. 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 Small amount of subcutaneous fluid in the back near the surgical site unchanged from 03/19/2016 study. ??Clinical correlation recommended. Dense opacity right lateral hip possibly calcific. ??In the soft tissues. IMPRESSION: No definite ureteral stones. ??No hydronephrosis. ??Small left renal stone. ??Question of an inflamed bladder diverticulum. ??Full details above. ??Clinical correlation recommended. Electronically signed by: Andrés Allen M.D. Radiologist: ALEJANDRO GIL, ANDRÉS Ortega. ?? Attending: ??GERALD FRANCISCO Requesting: GERALD FRANCISCO Requesting Fax: ?? Requesting ID: [id number] Attending Fax: ?? Attending ID: ?? [id number] Completed Time: ?? 03/23/2016 4:29 PM Dictated Time: ?03/23/2016 4:43 PM Transcribed Time: 03/23/2016 4:43 PM Signed by: ?ALEJANDRO GIL, ANDRÉS Sanchez ?? on 03/23/2016 4:43 PM Report To 1 ID: Report To 1 Name: , Report To 1 FAX: Report To 2 ID: Report To 2 Name: , Report To 2 FAX: Report To 3 ID: Report To 3 Name: , Report To 3 FAX: NextGen Order #: Procedure Note Provider, MD Dee - 11/28/2016 EXAM: CT KUB. HISTORY: Hematuria. Kidney stones.. TECHNIQUE: Noncontrast CT scan of the kidneys, ureters, and bladder was done to evaluate for renal and ureteral calculi. This is otherwise limited for other abdominal and pelvic pathology. FINDINGS: Right kidney: No definite renal stones seen. Indeterminate lesions present consider sonography. Left kidney: Stone in the lower left kidney measures 2 mm. Indeterminate hypodensities. Consider sonography. Ureters: Nondilated. No definite ureteral stones. Additional incidental findings include pleural thickening at the bases as well as some atelectasis or scar and old rib fractures unchanged from 03/19/2016. Significant artifact from prior spinal surgery. Degenerative changes spine and hips. Bone graft harvesting suspected of the left ilium. Inferior vena caval filter present. Food in the stomach. Moderate amount of colonic stool. Suspicion of gallstones in the gallbladder. Adrenal glands normal in size. Postop changes anterior abdominal wall. Prominent prostate gland with calcifications. Probable diverticulum off the right lateral bladder wall with some mild inflammatory change around it. Question inflammation of a bladder diverticulum. Other diverticula are present. Consider cystoscopy. Bladder sonogram may be useful. Clinical correlation suggested. Appearance of the bladder diverticulosis fairly similar to the 03/19/2016 scan. Moderate amount of colonic stool. No bowel obstruction seen. Renal hypodensities lesions are present on both sides indeterminate and incompletely assessed without contrast. Consider renal sonogram. Probable duodenal diverticulum. Severe atherosclerosis. 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 Small amount of subcutaneous fluid in the back near the surgical site unchanged from 03/19/2016 study. Clinical correlation recommended. Dense opacity right lateral hip possibly calcific. In the soft tissues. IMPRESSION: No definite ureteral stones. No hydronephrosis. Small left renal stone. Question of an inflamed bladder diverticulum. Full details above. Clinical correlation recommended. Electronically signed by: Andrés Allen M.D. Radiologist: ANDRÉS ALLEN MD Attending: GERALD FRANCISCO Requesting: GERALD FRANCISCO Requesting Requesting ID: [id number] Attending Attending ID: [id number] Completed Time: 03/23/2016 4:29 PM Dictated Time: 03/23/2016 4:43 PM Transcribed Time: 03/23/2016 4:43 PM Signed by: ANDRÉS ALLEN MD on 03/23/2016 4:43 PM Report To 1 ID: Report To 1 Name: , Report To 1 FAX: Report To 2 ID: Report To 2 Name: , Report To 2 FAX: Report To 3 ID: Report To 3 Name: , Report To 3 FAX: NextGen Order #: Historical Provider IMG CT PROCEDURES Final R esult * Blood glucose (03/23/2016 11:15 AM CDT) Glucose, POC, bld 87 70 - 140 mg/dl CDR HISTORICAL RESULTS Blood specimen (specimen) 03/23/2016 11:15 AM CDT Gerald Francisco MD LAB BLOOD ORDERABLES Final Re sult CDR HISTORICAL RESULTS * Blood glucose (03/23/2016 6:10 AM CDT) Glucose, POC, bld 112 70 - 140 mg/dl CDR HISTORICAL RESULTS Blood specimen (specimen) 03/23/2016 6:10 AM CDT Gerald Francisco MD LAB BLOOD ORDERABLES Final Re sult Performing Organization Address City/[facility] de Phone Number CDR HISTORICAL RESULTS * (ABNORMAL) Blood glucose (03/22/2016 10:23 PM CDT) Glucose, POC, bld 166(H) 70 - 140 mg/dl CDR HISTORICAL RESULTS Blood specimen (specimen) 03/22/2016 10:23 PM CDT us Gerald Francisco MD LAB BLOOD ORDERABLES Final Re sult Performing Organization Address [facility] de Phone Number CDR HISTORICAL RESULTS * (ABNORMAL) Blood glucose (03/22/2016 4:32 PM CDT) Glucose, POC, bld 151(H) 70 - 140 mg/dl CDR HISTORICAL RESULTS Blood specimen (specimen) 03/22/2016 4:32 PM CDT us Gerald Francisco MD LAB BLOOD ORDERABLES Final Re sult Performing Organization Address [facility] de Phone Number CDR HISTORICAL RESULTS * (ABNORMAL) Blood glucose (03/22/2016 11:23 AM CDT) Glucose, POC, bld 176(H) 70 - 140 mg/dl CDR HISTORICAL RESULTS Blood specimen (specimen) 03/22/2016 11:23 AM CDT us Gerald Francisco MD LAB BLOOD ORDERABLES Final Re sult Performing Organization Address [facility] de Phone Number CDR HISTORICAL RESULTS * (ABNORMAL) Blood glucose (03/22/2016 6:42 AM CDT) Glucose, POC, bld 154(H) 70 - 140 mg/dl CDR HISTORICAL RESULTS Blood specimen (specimen) 03/22/2016 6:42 AM CDT us Gerald Francisco MD LAB BLOOD ORDERABLES Final Re sult CDR HISTORICAL RESULTS * (ABNORMAL) Blood cell count (CBC), morphologic exam (03/22/2016 4:12 AM CDT) WBC 10.2(H) 3.8 - 9.9 K/cumm CDR HISTORICAL RESULTS RBC 4.94 4.30 - 5.80 M/cumm CDR HISTORICAL RESULTS Hgb 12.6(L) 13.0 - 17.5 g/dl CDR HISTORICAL RESULTS Hct 39.1 38.9 - 50.3 % CDR HISTORICAL RESULTS MCV 79.1(L) 81.3 - 96.4 fl CDR HISTORICAL RESULTS MCH 25.5(L) 27.1 - 33.3 pg CDR HISTORICAL RESULTS MCHC 32.2(L) 32.3 - 35.7 g/dl CDR HISTORICAL RESULTS RDW 50.6(H) 35.7 - 48.2 fl CDR HISTORICAL RESULTS Rdw 17.7(H) 11.1 - 14.1 % CDR HISTORICAL RESULTS Platelets 257 150 - 400 K/cumm CDR HISTORICAL RESULTS MPV 9.4 9.1 - 12.3 fl CDR HISTORICAL RESULTS Neutrophils 70.9 44.0 - 80.0 % CDR HISTORICAL RESULTS Lymphocytes 11.8(L) 13.0 - 44.0 % CDR HISTORICAL RESULTS Monos 11.4(H) 2.0 - 11.0 % CDR HISTORICAL RESULTS Eosinophils 4.8 0.0 - 6.0 % CDR HISTORICAL RESULTS Basophils 0.3 0.0 - 3.0 % CDR HISTORICAL RESULTS Immature granulocytes 0.8 0.0 - 1.0 % CDR HISTORICAL RESULTS NRBC 0.0 0.0 - 0.2 % CDR HISTORICAL RESULTS Neutrophils, abs 7.2(H) 1.7 - 6.5 K/cumm CDR HISTORICAL RESULTS Lymphocytes, abs 1.2 0.8 - 3.3 K/cumm CDR HISTORICAL RESULTS Monocytes, absolute 1.2(H) 0.2 - 0.8 K/cumm CDR HISTORICAL RESULTS Eosinophils, abs 0.5 0.0 - 0.5 K/cumm CDR HISTORICAL RESULTS Basophils, abs 0.0 0.0 - 0.1 K/cumm CDR HISTORICAL RESULTS Immature granulocyte, abs 0.1 0.0 - 0.1 K/cumm CDR HISTORICAL RESULTS NRBC, abs 0.00 0.00 - 0.01 K/cumm CDR HISTORICAL RESULTS Blood specimen (specimen) 03/22/2016 4:12 AM CDT Luis Antonio El MD LAB BLOOD ORDERABLES Final Resul t CDR HISTORICAL RESULTS * (ABNORMAL) Plasma comprehensive metabolic panel (03/22/2016 4:12 AM CDT) Sodium 135(L) 136 - 146 mmol/L CDR HISTORICAL RESULTS K, pl 4.6 3.3 - 4.9 mmol/L CDR HISTORICAL RESULTS Chloride 106 98 - 108 mmol/L CDR HISTORICAL RESULTS CO2 23 22 - 33 mmol/L CDR HISTORICAL RESULTS BUN 19(H) 7 - 18 mg/dl CDR HISTORICAL RESULTS Glucose 211(H) 70 - 140 mg/dl CDR HISTORICAL RESULTS Comment: Glucose is assumed to be non-fasting. ?? Fasting Glucose normal ranges are: 0 days - 2 months: ? 40 mg/dL - 100 mg/dL 2 months - 999 years: ?70 mg/dL - 99 mg/dL Creatinine 1.26 0.50 - 1.50 mg/dl CDR HISTORICAL RESULTS eGFR 56 ml/min/1.7 3 m2 CDR HISTORICAL RESULTS Comment: GFR Reference Range: = > 60 mL/min/1.73 m2 This result has been calculated assuming the patient is Non-. ??If the patient is , please multiply this result by 1.21. The GFR value is not recommended for medication dose adjustment for renal function, creatinine clearance values should be used. Calcium 8.8 8.5 - 10.5 mg/dl CDR HISTORICAL RESULTS Bilirubin 0.5 0.1 - 1.2 mg/dl CDR HISTORICAL RESULTS Protein, pl 5.8(L) 6.0 - 8.5 g/dl CDR HISTORICAL RESULTS Alb 2.8(L) 3.4 - 5.0 g/dl CDR HISTORICAL RESULTS Alk phos 76 38 - 126 IUnits/L CDR HISTORICAL RESULTS ALT 14(L) 17 - 63 IUnits/L CDR HISTORICAL RESULTS AST 20 15 - 41 IUnits/L CDR HISTORICAL RESULTS Plasma 03/22/2016 4:12 AM CDT Luis Antonio El MD LAB BLOOD ORDERABLES Final Resul t Performing Organization Address [facility] Co de Phone Number CDR HISTORICAL RESULTS * (ABNORMAL) Urinalysis (03/22/2016 12:10 AM CDT) Color, ur Red(A) Colorless,St raw,Yellow CDR HISTORICAL RESULTS Clarity, ur Cloudy(A) Clear CDR HISTORICAL RESULTS Specific gravity, ur 1.035(H) 1.005 - 1.030 CDR HISTORICAL RESULTS pH, ur 6.0 5.0 - 8.0 CDR HISTORICAL RESULTS Leukocyte esterase, ur Negative Negative gali/mcl CDR HISTORICAL RESULTS Nitrites, ur Negative Negative CDR HISTORICAL RESULTS Protein, ur = or > 500(A) Negative mg/dl CDR HISTORICAL RESULTS Glucose, ur, quant 50(A) Normal mg/dl CDR HISTORICAL RESULTS Ketones, ur, quant Negative Negative mg/dl CDR HISTORICAL RESULTS Urobilinogen, quant, ur Normal Normal mg/dl CDR HISTORICAL RESULTS Bilirubin, ur Negative Negative mg/dl CDR HISTORICAL RESULTS U Blood 3+(A) Negative CDR HISTORICAL RESULTS Urine 03/22/2016 12:1 0 AM CDT Rene AMBROSIO LAB BLOOD ORDERABLES Final Resu lt Performing Organization Address [facility] de Phone Number CDR HISTORICAL RESULTS * Urine microscopy (03/22/2016 12:10 AM CDT) Epithelial cells, squamous, ur Grossly bloody, microscopic unavailable. /lpf CDR HISTORICAL RESULTS Urine 03/22/2016 12:1 0 AM CDT Rene AMBROSIO LAB BLOOD ORDERABLES Final Resu lt Performing Organization Address [facility] Co de Phone Number CDR HISTORICAL RESULTS * (ABNORMAL) Plasma troponin I (03/21/2016 11:23 PM CDT) Troponin I 0.75(H) 0.00 - 0.04 ng/ml CDR HISTORICAL RESULTS Comment: < 0.04 ng/mL ??No evidence of myocardial damage. 0.04 - 0.78 ng/mL Indeterminate-repeat analysis assess the possibility of myocardial damage. >0.78 ng/mL ??Consistent with myocardial damage. Plasma 03/21/2016 11:2 3 PM CDT HEBERT Butt Jr. LAB BLOOD ORDER TY Final Result Performing Organization Address [facility] de Phone Number CDR HISTORICAL RESULTS * (ABNORMAL) Blood glucose (03/21/2016 9:14 PM CDT) Glucose, POC, bld 260(H) 70 - 140 mg/dl CDR HISTORICAL RESULTS Blood specimen (specimen) 03/21/2016 9:14 PM CDT Gerald Francisco MD LAB BLOOD ORDERABLES Final Re sult Performing Organization Address [facility] de Phone Number CDR HISTORICAL RESULTS * (ABNORMAL) Blood glucose (03/21/2016 5:02 PM CDT) Glucose, POC, bld 215(H) 70 - 140 mg/dl CDR HISTORICAL RESULTS Blood specimen (specimen) 03/21/2016 5:02 PM CDT Gerald Francisco MD LAB BLOOD ORDERABLES Final Re sult Performing Organization Address [facility] de Phone Number CDR HISTORICAL RESULTS * (ABNORMAL) Plasma troponin I (03/21/2016 3:25 PM CDT) Troponin I 0.93(H) 0.00 - 0.04 ng/ml CDR HISTORICAL RESULTS Comment: < 0.04 ng/mL ??No evidence of myocardial damage. 0.04 - 0.78 ng/mL Indeterminate-repeat analysis assess the possibility of myocardial damage. >0.78 ng/mL ??Consistent with myocardial damage. Plasma 03/21/2016 3:25 PM CDT HEBERT Butt Jr. LAB BLOOD ORDER TY Final Result CDR HISTORICAL RESULTS * Blood lactic acid (03/21/2016 1:17 PM CDT) Lactic acid 1.5 0.5 - 2.2 mmol/L CDR HISTORICAL RESULTS Blood specimen (specimen) 03/21/2016 1:17 PM CDT Avi Pringle Jr., HEBERT LAB BLOOD ORDER TY Final Result CDR HISTORICAL RESULTS * XR Chest 1 View (03/21/2016 12:42 PM CDT) Anatomical Region Laterality Modality Body, Chest N/A Radiographic Ary ging 03/21/2016 12:4 2 PM CDT Narrative 03/21/2016 1:28 PM CDT PORTABLE CHEST RADIOGRAPH HISTORY: ??Syncope, pulmonary was not 03/21/2016 at 1229 hours COMPARISON: 03/19/2016 at 1858 hours FINDINGS: A single portable view of the chest was obtained. ??Monitor leads overlie the chest. Findings: The thoracic aorta is mildly tortuous. ??The cardiac silhouette is within expected limits. ??Subsegmental atelectasis is noted in both bases. ??No confluent infiltrates are noted. IMPRESSION: Mild bibasilar atelectasis. COMMENT: Please see above for additional findings. Electronically signed by: Zandra Leyva M.D. Radiologist: ZANDRA LEYVA MD ?? Attending: ??GERALD FRANCISCO Requesting: AVI PRINGLE Requesting Fax: ?? Requesting ID: [id number] Attending Fax: ?? Attending ID: ?? [id number] Completed Time: ?? 03/21/2016 12:42 AM Dictated Time: ?03/21/2016 1:28 PM Transcribed Time: 03/21/2016 1:28 PM Signed by: ?ZANDRA LEYVA MD ?? on 03/21/2016 1:28 PM Report To 1 ID: Report To 1 Name: , Report To 1 FAX: Report To 2 ID: Report To 2 Name: , Report To 2 FAX: Report To 3 ID: Report To 3 Name: , Report To 3 FAX: NextGen Order #: Procedure Note ProviderDee MD - 11/28/2016 PORTABLE CHEST RADIOGRAPH HISTORY: Syncope, pulmonary was not 03/21/2016 at 1229 hours COMPARISON: 03/19/2016 at 1858 hours FINDINGS: A single portable view of the chest was obtained. Monitor leads overlie the chest. Findings: The thoracic aorta is mildly tortuous. The cardiac silhouette is within expected limits. Subsegmental atelectasis is noted in both bases. No confluent infiltrates are noted. IMPRESSION: Mild bibasilar atelectasis. COMMENT: Please see above for additional findings. Electronically signed by: Zandra Leyva M.D. Radiologist: ZANDRA LEYVA MD Attending: GERALD FRANCISCO Requesting: AVI PRINGLE Requesting Requesting ID: [id number] Attending Attending ID: [id number] Completed Time: 03/21/2016 12:42 AM Dictated Time: 03/21/2016 1:28 PM Transcribed Time: 03/21/2016 1:28 PM Signed by: ZANDRA LEYVA MD on 03/21/2016 1:28 PM Report To 1 ID: Report To 1 Name: , Report To 1 FAX: Report To 2 ID: Report To 2 Name: , Report To 2 FAX: Report To 3 ID: Report To 3 Name: , Report To 3 FAX: NextGen Order #: Historical Provider IMG XR PROCEDURES Final R esult * (ABNORMAL) Blood glucose (03/21/2016 12:02 PM CDT) Glucose, POC, bld 150(H) 70 - 140 mg/dl CDR HISTORICAL RESULTS Blood specimen (specimen) 03/21/2016 12:02 PM CDT Gerald Francisco MD LAB BLOOD ORDERABLES Final Re sult CDR HISTORICAL RESULTS * (ABNORMAL) Blood cell count (CBC), morphologic exam (03/21/2016 10:57 AM CDT) WBC 12.3(H) 3.8 - 9.9 K/cumm CDR HISTORICAL RESULTS RBC 5.00 4.30 - 5.80 M/cumm CDR HISTORICAL RESULTS Hgb 12.7(L) 13.0 - 17.5 g/dl CDR HISTORICAL RESULTS Hct 39.9 38.9 - 50.3 % CDR HISTORICAL RESULTS MCV 79.8(L) 81.3 - 96.4 fl CDR HISTORICAL RESULTS MCH 25.4(L) 27.1 - 33.3 pg CDR HISTORICAL RESULTS MCHC 31.8(L) 32.3 - 35.7 g/dl CDR HISTORICAL RESULTS RDW 50.8(H) 35.7 - 48.2 fl CDR HISTORICAL RESULTS Rdw 17.8(H) 11.1 - 14.1 % CDR HISTORICAL RESULTS Platelets 265 150 - 400 K/cumm CDR HISTORICAL RESULTS MPV 9.7 9.1 - 12.3 fl CDR HISTORICAL RESULTS Neutrophils 58.0 44.0 - 80.0 % CDR HISTORICAL RESULTS Lymphocytes 13.4 13.0 - 44.0 % CDR HISTORICAL RESULTS Monos 10.7 2.0 - 11.0 % CDR HISTORICAL RESULTS Eosinophils 15.6(H) 0.0 - 6.0 % CDR HISTORICAL RESULTS Basophils 0.9 0.0 - 3.0 % CDR HISTORICAL RESULTS Immature granulocytes 1.4(H) 0.0 - 1.0 % CDR HISTORICAL RESULTS NRBC 0.0 0.0 - 0.2 % CDR HISTORICAL RESULTS Neutrophils, abs 7.2(H) 1.7 - 6.5 K/cumm CDR HISTORICAL RESULTS Lymphocytes, abs 1.6 0.8 - 3.3 K/cumm CDR HISTORICAL RESULTS Monocytes, absolute 1.3(H) 0.2 - 0.8 K/cumm CDR HISTORICAL RESULTS Eosinophils, abs 1.9(H) 0.0 - 0.5 K/cumm CDR HISTORICAL RESULTS Basophils, abs 0.1(H) 0.0 - 0.1 K/cumm CDR HISTORICAL RESULTS Immature granulocyte, abs 0.2(H) 0.0 - 0.1 K/cumm CDR HISTORICAL RESULTS NRBC, abs 0.00 0.00 - 0.010 K/cumm CDR HISTORICAL RESULTS Blood specimen (specimen) 03/21/2016 10:57 AM CDT us Gerald Francisco MD LAB BLOOD ORDERABLES Final Re sult Performing Organization Address [facility] Co de Phone Number CDR HISTORICAL RESULTS * (ABNORMAL) Plasma basic metabolic panel (03/21/2016 10:57 AM CDT) Sodium 136 136 - 146 mmol/L CDR HISTORICAL RESULTS K, pl 4.3 3.3 - 4.9 mmol/L CDR HISTORICAL RESULTS Chloride 107 98 - 108 mmol/L CDR HISTORICAL RESULTS CO2 16(L) 22 - 33 mmol/L CDR HISTORICAL RESULTS BUN 22(H) 7 - 18 mg/dl CDR HISTORICAL RESULTS Glucose 178(H) 70 - 140 mg/dl CDR HISTORICAL RESULTS Comment: Glucose is assumed to be non-fasting. ?? Fasting Glucose normal ranges are: 0 days - 2 months: ? 40 mg/dL - 100 mg/dL 2 months - 999 years: ?70 mg/dL - 99 mg/dL Creatinine 1.39 0.50 - 1.50 mg/dl CDR HISTORICAL RESULTS eGFR 50 ml/min/1.7 3 m2 CDR HISTORICAL RESULTS Comment: GFR Reference Range: = > 60 mL/min/1.73 m2 This result has been calculated assuming the patient is Non-. ??If the patient is , please multiply this result by 1.21. The GFR value is not recommended for medication dose adjustment for renal function, creatinine clearance values should be used. Calcium 8.9 8.5 - 10.5 mg/dl CDR HISTORICAL RESULTS Plasma 03/21/2016 10:5 7 AM CDT us Gerald Francisco MD LAB BLOOD ORDERABLES Final Re sult Performing Organization Address [facility]/State/ZIP Co de Phone Number CDR HISTORICAL RESULTS * Plasma troponin I (03/21/2016 10:57 AM CDT) Troponin I 0.04 0.00 - 0.04 ng/ml CDR HISTORICAL RESULTS Comment: < 0.04 ng/mL ??No evidence of myocardial damage. 0.04 - 0.78 ng/mL Indeterminate-repeat analysis assess the possibility of myocardial damage. >0.78 ng/mL ??Consistent with myocardial damage. Plasma 03/21/2016 10:5 7 AM CDT Gerald Francisco MD LAB BLOOD ORDERABLES Final Re sult Performing Organization Address [facility] de Phone Number CDR HISTORICAL RESULTS * Plasma magnesium (03/21/2016 10:57 AM CDT) [facility] Magnesium 2.0 1.6 - 2.3 mg/dl CDR HISTORICAL RESULTS Plasma 03/21/2016 10:5 7 AM CDT Gerald Francisco MD LAB BLOOD ORDERABLES Final Re sult Performing Organization Address [facility] de Phone Number CDR HISTORICAL RESULTS * (ABNORMAL) Plasma creatine kinase (CK) fraction (03/21/2016 10:57 AM CDT) [facility] CK isoenzymes 44(L) 49 - 397 IUnits/L CDR HISTORICAL RESULTS Comment: For CK's <= ??65, MB is not performed per protocol; if needed, call chemistry lab. Plasma 03/21/2016 10:5 7 AM CDT HEBERT Butt Jr. LAB BLOOD ORDER TY Final Result Performing Organization Address [facility] de Phone Number CDR HISTORICAL RESULTS * (ABNORMAL) Blood gas, arterial (03/21/2016 10:55 AM CDT) Pathologist [facility] O2, inspired, art 0.50 CDR HISTORICAL RESULTS Ph, art 7.37 7.35 - 7.45 CDR HISTORICAL RESULTS Flow, O2 therapy 6 L/min CDR HISTORICAL RESULTS PCO2 37.0 35.0 - 45.0 mm Hg CDR HISTORICAL RESULTS PO2, art 86.0 85.0 - 100.0 mm Hg CDR HISTORICAL RESULTS HCO3, art 21(L) 22 - 26 mmol/L CDR HISTORICAL RESULTS BE, art -3.4(L) -2.0 - 2.0 mmol/L CDR HISTORICAL RESULTS O2 sat, art 96.2 95.0 - 100.0 % CDR HISTORICAL RESULTS O2, inspired, art No CDR HISTORICAL RESULTS Delivery device Venturi CDR HISTORICAL RESULTS Arterial blood 03/21/2016 10 :55 AM CDT us Gerald Francisco MD LAB BLOOD ORDERABLES Final Re sult Performing Organization Address [facility] de Phone Number CDR HISTORICAL RESULTS * (ABNORMAL) Blood glucose (03/21/2016 10:54 AM CDT) [facility] Glucose, POC, bld 168(H) 70 - 140 mg/dl CDR HISTORICAL RESULTS Blood specimen (specimen) 03/21/2016 10:54 AM CDT us Gerald Francisco MD LAB BLOOD ORDERABLES Final Re sult Performing Organization Address [facility] de Phone Number CDR HISTORICAL RESULTS * MRI Lumbar Spine WWO Contrast (03/21/2016 9:53 AM CDT) Anatomical Region Laterality Modality Spine N/A Magnetic Resonan ce 03/21/2016 9:53 AM CDT Narrative 03/21/2016 11:03 AM CDT EXAMINATION: Magnetic resonance imaging (MRI) of the lumbar spine without and with contrast HISTORY: History of discitis; revision posterior fusion 06/21/2015 TECHNIQUE: Multiplanar multi-weighted MRI of the lumbar spine was performed without and with intravenous contrast using the standard lumbar spine protocol. Contrast information: 10 mL Dotarem COMPARISON: Lumbar spine CT 03/19/2016; lumbar spine MRI 06/17/2015; lumbar spine CT 06/26/2015 FINDINGS: Posterior instrumented fusion spans L1-L4. ??Magnetic susceptibility artifact from the hardware slightly limits the evaluation. There is no paraspinal soft tissue edema. ??There is no significant marrow edema. ??There is no significantly elevated T2 signal within the intervertebral disc spaces. ??No abnormal intradural enhancement is seen. There is a T2 hyperintense fluid collection in the posterior subcutaneous tissues at midline, centered at L3, measuring 3.8 cm craniocaudal and 2.8 cm AP and roughly 1.5 cm mediolateral. ??This fluid collection has a thin connection that extends towards the dorsal aspect of the thecal sac at the L1-L2 level (see image 11 of series 2). Alignment is normal. ??Marrow signal is grossly normal allowing for limitation due to susceptibility artifact. ??Confluent anterior osteophytosis is seen from T12 to L4. ??There is a posteriorly projecting osteophyte at L1-L2, but this does not cause significant spinal canal stenosis. The conus medullaris terminates at approximately L1-L2. ??The distal spinal cord is normal in signal and morphology. Laminectomy has been performed at L1-L2 and L2-L3. ??The spinal canal is patent at these levels. There is no spinal canal stenosis at L3-L4. At L4-L5, there is a mild diffuse disc bulge, with moderate left and mild right facet arthropathy. ??This results in mild spinal canal stenosis and mild bilateral foraminal stenosis. At L5-S1, there is a small posterior disc osteophyte complex and moderate bilateral facet arthropathy. ??There is mild spinal canal stenosis, severe right foraminal stenosis, and moderate left foraminal stenosis. IMPRESSION: 1. ??Posterior instrumented fusion spans L1-L4. ??Posterior decompression has been performed at L1-L2 and L2-L3. ??The spinal canal is patent at these levels. 2. ??No marrow edema or significant intradiscal T2 hyperintensity. ??No paraspinal soft tissue edema. ??No findings to suggest discitis osteomyelitis. 3. Small fluid collection in the posterior subcutaneous tissues centered at L3, with thin extension of fluid intensity heading towards the dorsal thecal sac at the level of L1-L2. ??No definite communication with the thecal sac is identified. ??Small pseudomeningocele cannot be excluded. Electronically signed by: Gary Diaz MD Radiologist: GARY DIAZ ?? Attending: ??GERALD FRANCISCO Requesting: LUIS ANTONIO EL ?? Requesting Fax: ?? Requesting ID: [id number] Attending Fax: ?? Attending ID: ?? [id number] Completed Time: ?? 03/21/2016 09:53 AM Dictated Time: ?03/21/2016 11:03 AM Transcribed Time: 03/21/2016 11:03 AM Signed by: ?GARY DIAZ ?? on 03/21/2016 11:03 AM Report To 1 ID: Report To 1 Name: , Report To 1 FAX: Report To 2 ID: Report To 2 Name: , Report To 2 FAX: Report To 3 ID: Report To 3 Name: , Report To 3 FAX: NextGen Order #: Procedure Note Provider, MD Dee - 11/28/2016 EXAMINATION: Magnetic resonance imaging (MRI) of the lumbar spine without and with contrast HISTORY: History of discitis; revision posterior fusion 06/21/2015 TECHNIQUE: Multiplanar multi-weighted MRI of the lumbar spine was performed without and with intravenous contrast using the standard lumbar spine protocol. Contrast information: 10 mL Dotarem COMPARISON: Lumbar spine CT 03/19/2016; lumbar spine MRI 06/17/2015; lumbar spine CT 06/26/2015 FINDINGS: Posterior instrumented fusion spans L1-L4. Magnetic susceptibility artifact from the hardware slightly limits the evaluation. There is no paraspinal soft tissue edema. There is no significant marrow edema. There is no significantly elevated T2 signal within the intervertebral disc spaces. No abnormal intradural enhancement is seen. There is a T2 hyperintense fluid collection in the posterior subcutaneous tissues at midline, centered at L3, measuring 3.8 cm craniocaudal and 2.8 cm AP and roughly 1.5 cm mediolateral. This fluid collection has a thin connection that extends towards the dorsal aspect of the thecal sac at the L1-L2 level (see image 11 of series 2). Alignment is normal. Marrow signal is grossly normal allowing for limitation due to susceptibility artifact. Confluent anterior osteophytosis is seen from T12 to L4. There is a posteriorly projecting osteophyte at L1-L2, but this does not cause significant spinal canal stenosis. The conus medullaris terminates at approximately L1-L2. The distal spinal cord is normal in signal and morphology. Laminectomy has been performed at L1-L2 and L2-L3. The spinal canal is patent at these levels. There is no spinal canal stenosis at L3-L4. At L4-L5, there is a mild diffuse disc bulge, with moderate left and mild right facet arthropathy. This results in mild spinal canal stenosis and mild bilateral foraminal stenosis. At L5-S1, there is a small posterior disc osteophyte complex and moderate bilateral facet arthropathy. There is mild spinal canal stenosis, severe right foraminal stenosis, and moderate left foraminal stenosis. IMPRESSION: 1. Posterior instrumented fusion spans L1-L4. [...] is identified. Small pseudomeningocele cannot be excluded. Electronically signed by: Gary Diaz MD Radiologist: GARY DIAZ Attending: GERALD FRANCISCO Requesting: LUIS ANTONIO EL Requesting Requesting ID: [id number] Attending Attending ID: [id number] Completed Time: 03/21/2016 09:53 AM Dictated Time: 03/21/2016 11:03 AM Transcribed Time: 03/21/2016 11:03 AM Signed by: GARY DIAZ on 03/21/2016 11:03 AM Report To 1 ID: Report To 1 Name: , Report To 1 FAX: Report To 2 ID: Report To 2 Name: , Report To 2 FAX: Report To 3 ID: Report To 3 Name: , Report To 3 FAX: NextGen Order #: us Historical Provider MD YO MRI PROCEDURES Final Result * (ABNORMAL) Blood cell count (CBC), morphologic exam (03/21/2016 6:39 AM CDT) WBC 9.7 3.8 - 9.9 K/cumm CDR HISTORICAL RESULTS RBC 4.84 4.30 - 5.80 M/cumm CDR HISTORICAL RESULTS Hgb 12.1(L) 13.0 - 17.5 g/dl CDR HISTORICAL RESULTS Hct 38.8(L) 38.9 - 50.3 % CDR HISTORICAL RESULTS MCV 80.2(L) 81.3 - 96.4 fl CDR HISTORICAL RESULTS MCH 25.0(L) 27.1 - 33.3 pg CDR HISTORICAL RESULTS MCHC 31.2(L) 32.3 - 35.7 g/dl CDR HISTORICAL RESULTS RDW 51.8(H) 35.7 - 48.2 fl CDR HISTORICAL RESULTS Rdw 17.9(H) 11.1 - 14.1 % CDR HISTORICAL RESULTS Platelets 260 150 - 400 K/cumm CDR HISTORICAL RESULTS MPV 10.1 9.1 - 12.3 fl CDR HISTORICAL RESULTS Neutrophils 45.0 44.0 - 80.0 % CDR HISTORICAL RESULTS Lymphocytes 17.8 13.0 - 44.0 % CDR HISTORICAL RESULTS Monos 14.2(H) 2.0 - 11.0 % CDR HISTORICAL RESULTS Eosinophils 20.7(H) 0.0 - 6.0 % CDR HISTORICAL RESULTS Basophils 0.9 0.0 - 3.0 % CDR HISTORICAL RESULTS Immature granulocytes 1.4(H) 0.0 - 1.0 % CDR HISTORICAL RESULTS NRBC 0.0 0.0 - 0.2 % CDR HISTORICAL RESULTS Neutrophils, abs 4.4 1.7 - 6.5 K/cumm CDR HISTORICAL RESULTS Lymphocytes, abs 1.7 0.8 - 3.3 K/cumm CDR HISTORICAL RESULTS Monocytes, absolute 1.4(H) 0.2 - 0.8 K/cumm CDR HISTORICAL RESULTS Eosinophils, abs 2.0(H) 0.0 - 0.5 K/cumm CDR HISTORICAL RESULTS Basophils, abs 0.1 0.0 - 0.1 K/cumm CDR HISTORICAL RESULTS Immature granulocyte, abs 0.1(H) 0.0 - 0.1 K/cumm CDR HISTORICAL RESULTS NRBC, abs 0.00 0.00 - 0.010 K/cumm CDR HISTORICAL RESULTS Blood specimen (specimen) 03/21/2016 6:39 AM CDT Luis Antonio El MD LAB BLOOD ORDERABLES Final Resul t CDR HISTORICAL RESULTS * (ABNORMAL) Plasma partial thromboplastin time (PTT) (03/21/2016 6:39 AM CDT) APTT 111.1(H) 26.0 - 36.0 seconds CDR HISTORICAL RESULTS Comment: ? Therapeutic Heparin Range: 52 - 80 seconds Plasma 03/21/2016 6:39 AM CDT Gerald Francisco MD LAB BLOOD ORDERABLES Final Re sult Performing Organization Address [facility] de Phone Number CDR HISTORICAL RESULTS * Blood B-type natriuretic peptide (BNP) (03/21/2016 6:39 AM CDT) Pathologist [facility] BNP 16 0 - 100 pg/ml CDR HISTORICAL RESULTS Blood specimen (specimen) 03/21/2016 6:39 AM CDT Luis Antonio El MD LAB BLOOD ORDERABLES Final Resul t Performing Organization Address [facility] de Phone Number CDR HISTORICAL RESULTS * (ABNORMAL) Plasma comprehensive metabolic panel (03/21/2016 6:39 AM CDT) Sodium 139 136 - 146 mmol/L CDR HISTORICAL RESULTS K, pl 3.8 3.3 - 4.9 mmol/L CDR HISTORICAL RESULTS Chloride 107 98 - 108 mmol/L CDR HISTORICAL RESULTS CO2 26 22 - 33 mmol/L CDR HISTORICAL RESULTS BUN 22(H) 7 - 18 mg/dl CDR HISTORICAL RESULTS Glucose 120 70 - 140 mg/dl CDR HISTORICAL RESULTS Comment: Glucose is assumed to be non-fasting. ?? Fasting Glucose normal ranges are: 0 days - 2 months: ? 40 mg/dL - 100 mg/dL 2 months - 999 years: ?70 mg/dL - 99 mg/dL Creatinine 1.38 0.50 - 1.50 mg/dl CDR HISTORICAL RESULTS eGFR 51 ml/min/1.7 3 m2 CDR HISTORICAL RESULTS Comment: GFR Reference Range: = > 60 mL/min/1.73 m2 This result has been calculated assuming the patient is Non-. ??If the patient is , please multiply this result by 1.21. The GFR value is not recommended for medication dose adjustment for renal function, creatinine clearance values should be used. Calcium 8.6 8.5 - 10.5 mg/dl CDR HISTORICAL RESULTS Bilirubin 0.6 0.1 - 1.2 mg/dl CDR HISTORICAL RESULTS Protein, pl 5.7(L) 6.0 - 8.5 g/dl CDR HISTORICAL RESULTS Alb 2.7(L) 3.4 - 5.0 g/dl CDR HISTORICAL RESULTS Alk phos 76 38 - 126 IUnits/L CDR HISTORICAL RESULTS ALT 9(L) 17 - 63 IUnits/L CDR HISTORICAL RESULTS AST 14(L) 15 - 41 IUnits/L CDR HISTORICAL RESULTS Plasma 03/21/2016 6:39 AM CDT us Luis Antonio El MD LAB BLOOD ORDERABLES Final Resul t CDR HISTORICAL RESULTS * (ABNORMAL) Plasma lipid panel (03/21/2016 6:39 AM CDT) Cholesterol 116(L) 140 - 199 mg/dl CDR HISTORICAL RESULTS Triglycerides 80 20 - 150 mg/dl CDR HISTORICAL RESULTS HDL 34(L) 40 - 60 mg/dl CDR HISTORICAL RESULTS LDL 66 65 - 100 mg/dl CDR HISTORICAL RESULTS Comment: Desirable ?Borderline ? High CHOL ?< 200 ? 200 - 239 ?>= 240 mg/dL TRIG ? < 150 ? 150 - 199 ?>= 200 mg/dL HDL ? > ??60 ?40 - ??60 ?<= 40 mg/dL LDL ? < 100 ?130 - 159 ? >= 160 mg/dL Risk Assessment interpretation based on the January 2001 NCEP ATPIII guideline. Chol/HDL ratio 3.4 0.0 - 4.9 CDR H ISTORICAL RESULTS Plasma 03/21/2016 6:39 AM CDT Luis Antonio El MD LAB BLOOD ORDERABLES Final Resul t Performing Organization Address City/[facility] Co de Phone Number CDR HISTORICAL RESULTS * Blood glucose (03/21/2016 6:05 AM CDT) Glucose, POC, bld 136 70 - 140 mg/dl CDR HISTORICAL RESULTS Blood specimen (specimen) 03/21/2016 6:05 AM CDT Gerald Francisco MD LAB BLOOD ORDERABLES Final Re sult Performing Organization Address [facility] de Phone Number CDR HISTORICAL RESULTS * (ABNORMAL) Plasma renal panel (03/21/2016 5:57 AM CDT) Sodium 137 136 - 146 mmol/L CDR HISTORICAL RESULTS K, pl 3.7 3.3 - 4.9 mmol/L CDR HISTORICAL RESULTS Chloride 105 98 - 108 mmol/L CDR HISTORICAL RESULTS CO2 23 22 - 33 mmol/L CDR HISTORICAL RESULTS BUN 25(H) 7 - 18 mg/dl CDR HISTORICAL RESULTS Glucose 112 70 - 140 mg/dl CDR HISTORICAL RESULTS Comment: Glucose is assumed to be non-fasting. ?? Fasting Glucose normal ranges are: 0 days - 2 months: ? 40 mg/dL - 100 mg/dL 2 months - 999 years: ?70 mg/dL - 99 mg/dL Creatinine 1.36 0.50 - 1.50 mg/dl CDR HISTORICAL RESULTS eGFR 51 ml/min/1.7 3 m2 CDR HISTORICAL RESULTS Comment: GFR Reference Range: = > 60 mL/min/1.73 m2 This result has been calculated assuming the patient is Non-. ??If the patient is , please multiply this result by 1.21. The GFR value is not recommended for medication dose adjustment for renal function, creatinine clearance values should be used. Calcium 8.5 8.5 - 10.5 mg/dl CDR HISTORICAL RESULTS Alb 2.7(L) 3.4 - 5.0 g/dl CDR HISTORICAL RESULTS Phosphorus, pl 3.7 2.5 - 4.5 mg/dl CDR HISTORICAL RESULTS Plasma 03/21/2016 5:57 AM CDT Narrative CDR HISTORICAL RESULTS - 03/21/2016 7:40 AM CDT BLOOD IN LAB, CODE BLUE DRAW Result [facility] HEBERT Butt Jr. LAB BLOOD ORDER TY Final Result CDR HISTORICAL RESULTS * ELECTROCARDIOGRAPHY (ECG) (03/21/2016) Narrative 03/21/2016 Ordered by an unspecified provider. Result [facility] Provider ECG ORDERABLES Final Res ult * ELECTROCARDIOGRAPHY (ECG) (03/21/2016) Narrative 03/21/2016 Ordered by an unspecified provider. Result [facility] Provider ECG ORDERABLES Final Res ult * ELECTROCARDIOGRAPHY (ECG) (03/21/2016) Narrative 03/21/2016 Ordered by an unspecified provider. Result [facility] Provider ECG ORDERABLES Final Res ult * ELECTROCARDIOGRAPHY (ECG) (03/21/2016) Narrative 03/21/2016 Ordered by an unspecified provider. Result [facility] Provider ECG ORDERABLES Final Res ult * (ABNORMAL) Plasma partial thromboplastin time (PTT) (03/20/2016 10:44 PM CDT) APTT 80.3(H) 26.0 - 36.0 seconds CDR HISTORICAL RESULTS Comment: ? Therapeutic Heparin Range: 52 - 80 seconds Plasma 03/20/2016 10:4 4 PM CDT Result [facility] Gerald Francisco MD LAB BLOOD ORDERABLES Final Re sult Performing Organization Address [facility] Co de Phone Number CDR HISTORICAL RESULTS * (ABNORMAL) Blood glucose (03/20/2016 9:16 PM CDT) Glucose, POC, bld 145(H) 70 - 140 mg/dl CDR HISTORICAL RESULTS Blood specimen (specimen) 03/20/2016 9:16 PM CDT Gerald Francisco MD LAB BLOOD ORDERABLES Final Re sult Performing Organization Address [facility] Co de Phone Number CDR HISTORICAL RESULTS * Blood glucose (03/20/2016 4:34 PM CDT) Glucose, POC, bld 114 70 - 140 mg/dl CDR HISTORICAL RESULTS Blood specimen (specimen) 03/20/2016 4:34 PM CDT Gerald Francisco MD LAB BLOOD ORDERABLES Final Re sult Performing Organization Address [facility] Co de Phone Number CDR HISTORICAL RESULTS * Blood B-type natriuretic peptide (BNP) (03/20/2016 2:43 PM CDT) BNP Acceptable CDR HISTO RICAL RESULTS Blood specimen (specimen) 03/20/2016 2:43 PM CDT Luis Antonio El MD LAB BLOOD ORDERABLES Final Resul t Performing Organization Address [facility] Co de Phone Number CDR HISTORICAL RESULTS * Blood glycated hemoglobin (03/20/2016 2:40 PM CDT) Hgb A1C Acceptable CDR HISTO RICAL RESULTS Blood specimen (specimen) 03/20/2016 2:40 PM CDT us Luis Antonio El MD LAB BLOOD ORDERABLES Final Resul t Performing Organization Address [facility] Co de Phone Number CDR HISTORICAL RESULTS * US GUIDE VEIN MAPPING BI (03/20/2016 11:38 AM CDT) Anatomical Region Laterality Modality Body Bilateral Ultrasound 03/20/2016 11:3 8 AM CDT Narrative 03/20/2016 4:28 PM CDT EXAM: ??Duplex imaging study of the deep venous system of both lower extremities. HISTORY: ??Pulmonary embolic disease in left leg pain . COMPARISON: ??None available. FINDINGS: Right: Filling defect: ??No filling defects Compressibility: ??Normal Left: Filling defect: There is a fairly small amount of hypoechoic filling defect in the left popliteal vein Compressibility: ??Diminished in the left popliteal vein. IMPRESSION: Right: ??Normal. Left: ??Fairly small amount of acute deep venous thrombosis in the left popliteal vein. ?? Electronically signed by: Adalid Sorto M.D. Radiologist: ADALID SORTO ?? Attending: ??GERALD FRANCISCO Requesting: LUIS ANTONIO EL ?? Requesting Fax: ?? Requesting ID: [id number] Attending Fax: ?? Attending ID: ?? [id number] Completed Time: ?? 03/20/2016 11:38 AM Dictated Time: ?03/20/2016 4:28 PM Transcribed Time: 03/20/2016 4:28 PM Signed by: ?ADALID SORTO ?? on 03/20/2016 4:28 PM Report To 1 ID: Report To 1 Name: , Report To 1 FAX: Report To 2 ID: Report To 2 Name: , Report To 2 FAX: Report To 3 ID: Report To 3 Name: , Report To 3 FAX: NextGen Order #: Procedure Note Provider, MD Dee - 11/28/2016 EXAM: Duplex imaging study of the deep venous system of both lower extremities. HISTORY: Pulmonary embolic disease in left leg pain . COMPARISON: None available. FINDINGS: Right: Filling defect: No filling defects Compressibility: Normal Left: Filling defect: There is a fairly small amount of hypoechoic filling defect in the left popliteal vein Compressibility: Diminished in the left popliteal vein. IMPRESSION: Right: Normal. Left: Fairly small amount of acute deep venous thrombosis in the left popliteal vein. Electronically signed by: Adalid Sorto M.D. Radiologist: ADALID SORTO Attending: GERALD FRANCISCO Requesting: LUIS ANTONIO EL Requesting Requesting ID: [id number] Attending Attending ID: [id number] Completed Time: 03/20/2016 11:38 AM Dictated Time: 03/20/2016 4:28 PM Transcribed Time: 03/20/2016 4:28 PM Signed by: ADALID SORTO on 03/20/2016 4:28 PM Report To 1 ID: Report To 1 Name: , Report To 1 FAX: Report To 2 ID: Report To 2 Name: , Report To 2 FAX: Report To 3 ID: Report To 3 Name: , Report To 3 FAX: NextGen Order #: Historical Provider IMG US PROCEDURES Final R esult * Blood glucose (03/20/2016 11:16 AM CDT) Glucose, POC, bld 133 70 - 140 mg/dl CDR HISTORICAL RESULTS Blood specimen (specimen) 03/20/2016 11:16 AM CDT Gerald Francisco MD LAB BLOOD ORDERABLES Final Re sult CDR HISTORICAL RESULTS * Plasma troponin I (03/20/2016 9:56 AM CDT) Troponin I <0.01 0.00 - 0.04 ng/ml CDR HISTORICAL RESULTS Comment: < 0.04 ng/mL ??No evidence of myocardial damage. 0.04 - 0.78 ng/mL Indeterminate-repeat analysis assess the possibility of myocardial damage. >0.78 ng/mL ??Consistent with myocardial damage. Plasma 03/20/2016 9:56 AM CDT Luis Antonio El MD LAB BLOOD ORDERABLES Final Resul t Performing Organization Address City/[facility]/ZIP Co de Phone Number CDR HISTORICAL RESULTS * (ABNORMAL) Urinalysis (03/20/2016 9:40 AM CDT) Color, ur Yellow Colorless,St raw,Yellow CDR HISTORICAL RESULTS Clarity, ur Hazy(A) Clear CDR HIST ORICAL RESULTS Specific gravity, ur 1.025 1.005 - 1.030 CDR HISTORICAL RESULTS pH, ur 5.0 5.0 - 8.0 CDR HISTOR ICAL RESULTS Leukocyte esterase, ur Negative Negative gali/mcl CDR HISTORICAL RESULTS Nitrites, ur Negative Negative CDR HIS TORICAL RESULTS Protein, ur 30(A) Negative mg/dl CDR HISTORICAL RESULTS Glucose, ur, quant Normal Normal mg/dl CDR HISTORICAL RESULTS Ketones, ur, quant Negative Negative mg/dl CDR HISTORICAL RESULTS Urobilinogen, quant, ur Normal Normal mg/dl CDR HISTORICAL RESULTS Bilirubin, ur Negative Negative mg/dl CDR HISTORICAL RESULTS U Blood 1+(A) Negative CDR HISTOR ICAL RESULTS Urine 03/20/2016 9:40 AM CDT Gerald Francisco MD LAB BLOOD ORDERABLES Final Re sult Performing Organization Address [facility] Co de Phone Number CDR HISTORICAL RESULTS * Plasma partial thromboplastin time (PTT) (03/20/2016 9:23 AM CDT) APTT 31.1 26.0 - 36.0 seconds CDR HISTORICAL RESULTS Comment: ? Therapeutic Heparin Range: 52 - 80 seconds Plasma 03/20/2016 9:23 AM CDT Narrative CDR HISTORICAL RESULTS - 03/20/2016 9:51 AM CDT prior to drip initiation Luis Antonio El MD LAB BLOOD ORDERABLES Final Resul t CDR HISTORICAL RESULTS * Blood glucose (03/20/2016 7:28 AM CDT) Glucose, POC, bld 129 70 - 140 mg/dl CDR HISTORICAL RESULTS Blood specimen (specimen) 03/20/2016 7:28 AM CDT Gerald Francisco MD LAB BLOOD ORDERABLES Final Re sult CDR HISTORICAL RESULTS * (ABNORMAL) Blood cell count (CBC), morphologic exam (03/20/2016 6:01 AM CDT) WBC 11.2(H) 3.8 - 9.9 K/cumm CDR HISTORICAL RESULTS RBC 5.06 4.30 - 5.80 M/cumm CDR HISTORICAL RESULTS Hgb 12.9(L) 13.0 - 17.5 g/dl CDR HISTORICAL RESULTS Hct 41.4 38.9 - 50.3 % CDR HISTORICAL RESULTS MCV 81.8 81.3 - 96.4 fl CDR HISTORICAL RESULTS MCH 25.5(L) 27.1 - 33.3 pg CDR HISTORICAL RESULTS MCHC 31.2(L) 32.3 - 35.7 g/dl CDR HISTORICAL RESULTS RDW 53.4(H) 35.7 - 48.2 fl CDR HISTORICAL RESULTS Rdw 18.2(H) 11.1 - 14.1 % CDR HISTORICAL RESULTS Platelets 274 150 - 400 K/cumm CDR HISTORICAL RESULTS MPV 9.0(L) 9.1 - 12.3 fl CDR HISTORICAL RESULTS Neutrophils 62.0 44.0 - 80.0 % CDR HISTORICAL RESULTS Lymphocytes 11.4(L) 13.0 - 44.0 % CDR HISTORICAL RESULTS Monos 11.7(H) 2.0 - 11.0 % CDR HISTORICAL RESULTS Eosinophils 12.9(H) 0.0 - 6.0 % CDR HISTORICAL RESULTS Basophils 0.7 0.0 - 3.0 % CDR HISTORICAL RESULTS Immature granulocytes 1.3(H) 0.0 - 1.0 % CDR HISTORICAL RESULTS NRBC 0.2 0.0 - 0.2 % CDR HISTORICAL RESULTS Neutrophils, abs 7.0(H) 1.7 - 6.5 K/cumm CDR HISTORICAL RESULTS Lymphocytes, abs 1.3 0.8 - 3.3 K/cumm CDR HISTORICAL RESULTS Monocytes, absolute 1.3(H) 0.2 - 0.8 K/cumm CDR HISTORICAL RESULTS Eosinophils, abs 1.4(H) 0.0 - 0.5 K/cumm CDR HISTORICAL RESULTS Basophils, abs 0.1 0.0 - 0.1 K/cumm CDR HISTORICAL RESULTS Immature granulocyte, abs 0.2(H) 0.0 - 0.1 K/cumm CDR HISTORICAL RESULTS NRBC, abs 0.02 0.00 - 0.01 K/cumm CDR HISTORICAL RESULTS Blood specimen (specimen) 03/20/2016 6:01 AM CDT Historical Provider LAB BLOOD ORDERABLES Ruth l Result Performing Organization Address [facility] de Phone Number CDR HISTORICAL RESULTS * (ABNORMAL) Blood hemoglobin A1C (03/20/2016 6:01 AM CDT) Glycated hemoglobin 7.8(H) 4.0 - 6.0 % CDR HISTORICAL RESULTS Blood specimen (specimen) 03/20/2016 6:01 AM CDT Luis Antonio El MD LAB BLOOD ORDERABLES Final Resul t Performing Organization Address [facility] de Phone Number CDR HISTORICAL RESULTS * Plasma fibrinogen (03/20/2016 6:01 AM CDT) Fibrinogen 403 190 - 450 mg/dl CDR HISTORICAL RESULTS Plasma 03/20/2016 6:01 AM CDT Nicole Dasilva MD LAB BLOOD ORDERABLES Final Res ult Performing Organization Address [facility] de Phone Number CDR HISTORICAL RESULTS * Blood B-type natriuretic peptide (BNP) (03/20/2016 6:01 AM CDT) BNP 23 0 - 100 pg/ml CDR HISTORICAL RESULTS Blood specimen (specimen) 03/20/2016 6:01 AM CDT Luis Antonio El MD LAB BLOOD ORDERABLES Final Resul t Performing Organization Address [facility] de Phone Number CDR HISTORICAL RESULTS * (ABNORMAL) Plasma basic metabolic panel (03/20/2016 6:01 AM CDT) Sodium 139 136 - 146 mmol/L CDR HISTORICAL RESULTS K, pl 4.6 3.3 - 4.9 mmol/L CDR HISTORICAL RESULTS Chloride 108 98 - 108 mmol/L CDR HISTORICAL RESULTS CO2 24 22 - 33 mmol/L CDR HISTORICAL RESULTS BUN 30(H) 7 - 18 mg/dl CDR HISTORICAL RESULTS Glucose 150(H) 70 - 140 mg/dl CDR HISTORICAL RESULTS Comment: Glucose is assumed to be non-fasting. ?? Fasting Glucose normal ranges are: 0 days - 2 months: ? 40 mg/dL - 100 mg/dL 2 months - 999 years: ?70 mg/dL - 99 mg/dL Creatinine 1.78(H) 0.50 - 1.50 mg/dl CDR HISTORICAL RESULTS eGFR 38 ml/min/1.7 3 m2 CDR HISTORICAL RESULTS Comment: GFR Reference Range: = > 60 mL/min/1.73 m2 This result has been calculated assuming the patient is Non-. ??If the patient is , please multiply this result by 1.21. The GFR value is not recommended for medication dose adjustment for renal function, creatinine clearance values should be used. Calcium 8.6 8.5 - 10.5 mg/dl CDR HISTORICAL RESULTS Plasma 03/20/2016 6:01 AM CDT Kem Strange MD LAB BLOOD ORDERABLES Final R esult Performing Organization Address City/[facility]/ZIP Co de Phone Number CDR HISTORICAL RESULTS * Serum antinuclear ab (AURORA) (03/20/2016 6:01 AM CDT) Pathologist [facility] AURORA, qual Negative NEGATIVE CDR HISTOR ICAL RESULTS Comment: [facility] [address] [place], [place] ??[id number] FRANK BALLESTEROS DO,MPH Serum 03/20/2016 6:01 AM CDT Nicole Dasilva MD LAB BLOOD ORDERABLES Final Res ult Performing Organization Address City/[facility]/ZIP Co de Phone Number CDR HISTORICAL RESULTS * (ABNORMAL) Urine microscopy (03/20/2016 4:40 AM CDT) RBC, ur Too numerous to count.(A) 0 - 2 /hpf CDR HISTORICAL RESULTS WBC, ur 6 - 10(A) 0-2,3-5 /hpf CDR HISTORICAL RESULTS Epithelial cells, squamous, ur 11 - 20 /lpf CDR HISTORICAL RESULTS Mucus, ur Trace /lpf CDR HISTOR ICAL RESULTS Hyaline casts 3 - 5 /lpf CDR HI STORICAL RESULTS Urine 03/20/2016 4:40 AM CDT Narrative CDR HISTORICAL RESULTS - 03/20/2016 5:23 AM CDT Urine culture was reflexed us Gerald Francisco MD LAB BLOOD ORDERABLES Final Re sult Performing Organization Address City/[facility] Co de Phone Number CDR HISTORICAL RESULTS * Serum antithrombin III activity (03/20/2016 3:25 AM CDT) Pathologist [facility] Antithrombin III 81 80 - 125 % normal CDR HISTORICAL RESULTS Serum 03/20/2016 3:25 AM CDT Narrative CDR HISTORICAL RESULTS - 03/20/2016 4:15 PM CDT Test performed at [facility], [address] [facility] [place], [place], [place], [address]. 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 This result is not associated with a significantly increased risk for coronary artery disease, venous thromboembolism, or adverse outcome. This assay cannot determine whether these two variants are on opposite chromosomes (trans) or on the same chromosome(cis). Blood specimen (specimen) 03/20/2016 1:01 AM CDT Narrative CDR HISTORICAL RESULTS - 03/24/2016 1:00 PM CDT Test performed at [facility], [address] ,, [facility], [address]. Nicole Dasilva MD LAB BLOOD ORDERABLES Final Res ult Performing Organization Address City/[facility] Co de Phone Number CDR HISTORICAL RESULTS * Blood prothrombin A gene mutation analysis (03/20/2016 1:01 AM CDT) Pathologist [facility] Prothrombin A gene mutation Results available electronically in Clinical Desktop under Laboratory - Molecular Diagnostics. CDR HISTORICAL RESULTS Blood specimen (specimen) 03/20/2016 1:01 AM CDT Narrative CDR HISTORICAL RESULTS - 03/27/2016 10:45 AM CDT Test performed at [facility], [address] [facility] [place], [address]. us Nicole Dasilva MD LAB BLOOD ORDERABLES Final Res ult Performing Organization Address [facility] de Phone Number CDR HISTORICAL RESULTS * Blood factor v leiden mutation (03/20/2016 1:01 AM CDT) [facility] Factor V Leiden Results available electronically in Clinical Desktop under Laboratory - Molecular Diagnostics. CDR HISTORICAL RESULTS Blood specimen (specimen) 03/20/2016 1:01 AM CDT Narrative CDR HISTORICAL RESULTS - 03/27/2016 11:01 AM CDT Test performed at [facility], [address] [facility], [address] [facility], [facility], [address]. Nicole Dasilva MD LAB BLOOD ORDERABLES Final Res ult Performing Organization Address City/[facility] Co de Phone Number CDR HISTORICAL RESULTS * Plasma homocysteine (03/20/2016 1:01 AM CDT) Pathologist [facility] Homocysteine 11.6 0.0 - 15.0 mcmol/L CDR HISTORICAL RESULTS Plasma 03/20/2016 1:01 AM CDT Narrative CDR HISTORICAL RESULTS - 03/20/2016 9:47 AM CDT Test performed at [facility], [address] [facility], [address] [facility], [place], [place], [place], [address]. us Nicole Dasilva MD LAB BLOOD ORDERABLES Final Res ult CDR HISTORICAL RESULTS * (ABNORMAL) Plasma lupus anticoagulant (03/20/2016 1:01 AM CDT) Pathologist [facility] Prothrombin time (PT) 13.5(H) 9.2 - 13.0 seconds CDR HISTORICAL RESULTS INR 1.25(H) 0.90 - 1.20 CDR HISTORICAL RESULTS Comment: Interpretive Data Inpatient therapeutic ranges* Atrial fibrillation ?2.0-3.0 INR Venous thrombo-embolism ?2.0- 3.0 INR Bioprosthetic heart valve ?* Mechanical heart valve, bileaflet or tilting disk,aortic position ? 2.0-3.0 INR All other,or bileaflet or tilting disk, in mitral position ? 2.5-3.5 INR *See the pharmacy resource directory (PHRED) for an updated copy of the Tool Book at [email or web address] Current Interpretive Data was last revised 2011. APTT 29.4 25.0 - 37.0 seconds CDR HISTORICAL RESULTS Comment:Interpretive Data Th erapeutic heparin range:60.0 - 94.0 sec based on correlation with therapeutic heparin activity range of 0.3 -0.7 Units/mL. Current interpretive data was last revised on 2011. PTT 34.7 <=39.0 seconds CDR HISTORICAL RESULTS Lupus anticoagulant, DRVVT, screen ratio 1.15 0.00 - 1.20 ratio CDR HISTORICAL RESULTS Lupus anticoagulant, phospholipid neutralization Negative CDR HISTORICAL RESULTS Comment: Lupus Anticoagulant Interpretation: Lupus anticoagulants (LA) are acquired autoantibodies that interfere with invitro clotting in a phospholipid-dependent manner. Routine aPTT reagents are not sensitive to inhibition by LA, and should not be used as a screening test. ??The laboratory follows ISTH 2009 guidelines (Jean Marieo,2009) for LA testing and interpretation: Two sensitive methods performed in parallel improve sensitivity. One activates the intrinsic pathway (LA-PTT) and one activates the common pathway (dilute Anant Venom Time dRVVT). Each method begins with a screening step, and if not prolonged for both tests, no further testing is performed and the interpretation is: NO LA DETECTED. If either screening test is prolonged, then additional steps are performed to provide specificity. A POSITIVE occurs if either or both tests produce a positive confirm result. To support a clinical suspicion of antiphospholipid syndrome, persistence of a positive LA result should be confirmed by repeated testing at least 12 weeks later (Pretty, 2006). An INDETERMINATE result indicates LA cannot be confirmed or ruled out due to the possible presence of anticoagulant effect, factor deficiency, very weak LA, or factor inhibitors. FALSE POSITIVE causes of LA include autoantibodies to specific factors and IV or PO directed anticoagulants, both associated with increased bleeding. Clinical correlation required. References:1) Jesusita V, Dewayne A, Skylar JH, Orotf TL, Sahhida M, De Delmi PG. Update of the guidelines for lupus anticoagulant detection. J Thromb Haemost. 2009;7:1737- 1740. 2) Pretty Ashley. et al. International consensus statement on an update of the classification criteria for definite antiphospholipid syndrome (APS). J Thromb Haemost. 2006;4:295-306. Current interpretive data was last revised on 2014 Plasma 03/20/2016 1:01 AM CDT Narrative CDR HISTORICAL RESULTS - 03/24/2016 6:30 AM CDT Test performed at [facility], [address] [facility], [address] [place], [place], [place], [address]. us Nicole Dasilva MD LAB BLOOD ORDERABLES Final Res ult [facility] HISTORICAL RESULTS * Serum anticardiolipin ab, IgG, IgM (03/20/2016 1:01 AM CDT) Cardiolipin, IgG 3.2 0.0 - 14.9 GPL U/ml CDR HISTORICAL RESULTS Comment:Interpretive Data <1 5 GPL U/mL Negative 15-19 GPL U/mL Indeterminate 20- 39 GPL U/mL Low Positive 40-80 GPL U/mL Medium Positive >80 GPL U/mL High Positive Current interpretive data was last revised on 2010. Cardiolipin, IgM 6.8 0.0 - 12.4 MPL U/ml CDR HISTORICAL RESULTS Comment: Interpretive Data <12.5 ?? MPL U/mL ?Negative 12.5-19 MPL U/mL ?Indeterminate 20-39 ?? MPL U/mL ?Low Positive 40-80 ?? MPL U/mL ?Medium Positive >80 ? MPL U/mL ?High Positive Anticardiolipin antibodies are associated with certain clinical events including arterial and venous thromboemboli, morbidity, and thrombocytopenia. ??However, detection of low levels of anticardiolipin antibodies occurs in both healthy individuals and patients with co-morbidities not associated with the antiphospholipid antibody (APA) syndrome including inflammatory and infectious conditions. ??In order to improve specificity, the International Congress on Antiphospholipid Antibodies recommends a threshold of > 40 GPL units for IgG MARIANO and > 40 MPL units for IgM MARIANO, obtained twice, at least 12 weeks apart, to support a diagnosis of antiphospholipid syndrome. ??In addition, the International Congress on Antiphospholipid Antibodies does not recommend testing for IgA MARIANO since this isotype rarely occurs in the absence of IgG or IgM MARIANO, and the association of an isolated IgA MARIANO with APA clinical signs and symptoms is weak. ??The presence of rheumatoid factor may lead to false-positive IgM anticardiolipin results. ??The following results were obtained with the [employer] QUANTLiteTM IgG and IgM III VICKI. ??Cardiolipin IgG and IgM values obtained with different manufacturers' assay methods may not be used interchangeably. Current interpretive data was last revised on 2010. Serum 03/20/2016 1:01 AM CDT Narrative CDR HISTORICAL RESULTS - 03/25/2016 9:14 AM CDT Test performed at [facility], [address] [facility], [address] [place], [place], [place], [address]. us Nicole Dasilva MD LAB BLOOD ORDERABLES Final Res ult Performing Organization Address [facility]/State/ZIP Co de Phone Number CDR HISTORICAL RESULTS * Stress Echo Exercise W Doppler/CF WO Contrast (03/20/2016 12:00 AM CDT) Anatomical Region Laterality Modality Echocardiography Narrative 03/20/2016 12:00 AM CDT Ordered by an unspecified provider. Procedure Note ProviderDee MD - 09/29/2018 Ordered by an unspecified provider. Historical Provider CV ECHO PROCEDURES Final Result * (ABNORMAL) Blood glucose (03/19/2016 10:55 PM CDT) [facility] Glucose, POC, bld 231(H) 70 - 140 mg/dl CDR HISTORICAL RESULTS Blood specimen (specimen) 03/19/2016 10:55 PM CDT us Gerald Francisco MD LAB BLOOD ORDERABLES Final Re sult CDR HISTORICAL RESULTS * CHEST RADIOGRAPHY, FRONTAL (AP), LATERAL (03/19/2016 6:57 PM CDT) Anatomical Region Laterality Modality N/A Radiographic Ary ging 03/19/2016 6:57 PM CDT Narrative 03/19/2016 7:04 PM CDT 2 view chest HISTORY: Shortness of breath Since 03/19/2016 at 0800 hours there is been no change the heart size which is normal. ??The lungs remain clear. ??The pulmonary vascularity and arlene are normal. Visualized soft tissues and bony thorax are stable DIAGNOSIS: No change, no acute cardiopulmonary disease Electronically signed by: Benedicto Ralph M.D. Radiologist: BENEDICTO RALPH ?? Attending: ??UNKNOWN, NOTINFILE ?? Requesting: KEM STRANGE Requesting Fax: ?? Requesting ID: [id number] Attending Fax: ?? Attending ID: ?? [id number] Completed Time: ?? 03/19/2016 6:57 PM Dictated Time: ?03/19/2016 7:04 PM Transcribed Time: 03/19/2016 7:04 PM Signed by: ?BENEDICTO RALPH ?? on 03/19/2016 7:04 PM Report To 1 ID: Report To 1 Name: , Report To 1 FAX: Report To 2 ID: Report To 2 Name: , Report To 2 FAX: Report To 3 ID: Report To 3 Name: , Report To 3 FAX: NextGen Order #: Procedure Note Provider, Historical, - 11/28/2016 2 view chest HISTORY: Shortness of breath Since 03/19/2016 at 0800 hours there is been no change the heart size which is normal. The lungs remain clear. The pulmonary vascularity and arlene are normal. Visualized soft tissues and bony thorax are stable DIAGNOSIS: No change, no acute cardiopulmonary disease Electronically signed by: Benedicto Ralph M.D. Radiologist: BENEDICTO RALPH Attending: UNKNOWN, NOTINFILE Requesting: KEM STRANGE Requesting Requesting ID: [id number] Attending Attending ID: [id number] Completed Time: 03/19/2016 6:57 PM Dictated Time: 03/19/2016 7:04 PM Transcribed Time: 03/19/2016 7:04 PM Signed by: BENEDICTO RALPH on 03/19/2016 7:04 PM Report To 1 ID: Report To 1 Name: , Report To 1 FAX: Report To 2 ID: Report To 2 Name: , Report To 2 FAX: Report To 3 ID: Report To 3 Name: , Report To 3 FAX: NextGen Order #: Historical Provider MD YO XR PROCEDURES Final R esult * NM Lung VQ Scan (03/19/2016 5:01 PM CDT) Anatomical Region Laterality Modality Body N/A Nuclear Medicine 03/19/2016 5:01 PM CDT Narrative 03/19/2016 5:56 PM CDT NUCLEAR MEDICINE VENTILATION/PERFUSION LUNG SCAN HISTORY: Back pain with history of pulmonary emboli. TECHNIQUE: 5.4 mCi of technetium 99m MAA were utilized for perfusion study and 9.6 mCi of xenon gas were utilized. ??Comparison is made to chest x-ray dated 03/19/2016. The ventilation study demonstrates poor ventilation in the left lung. ?? There is a normal ventilation in the right lung. ??Subsequent perfusion study demonstrates a large mismatched defect in the right upper lobe. ??No mismatched lesion is seen within the left lung. No corresponding abnormality is seen on the chest radiograph. DIAGNOSIS: There is a moderate to large mismatched defect in the right upper lobe. The findings are consistent with intermediate to high probability for pulmonary embolism. ??Further evaluation with contrast CT scan could be obtained, as clinically indicated. Dr. Strange was notified of critical results, 03/19/2016 at 1710 hours. Edited by: MARISEL GUSTAFSON Electronically signed by: Benedicto Ralph M.D. Radiologist: BENEDICTO RALPH ?? Attending: ??UNKNOWN, NOTINFILE ?? Requesting: KEM STRANGE Requesting Fax: ?? Requesting ID: [id number] Attending Fax: ?? Attending ID: ?? [id number] Completed Time: ?? 03/19/2016 5:01 PM Dictated Time: ?03/19/2016 5:10 PM Transcribed Time: 03/19/2016 5:17 PM Signed by: ?BENEDICTO RALPH ?? on 03/19/2016 5:56 PM Report To 1 ID: Report To 1 Name: , Report To 1 FAX: Report To 2 ID: Report To 2 Name: , Report To 2 FAX: Report To 3 ID: Report To 3 Name: , Report To 3 FAX: NextGen Order #: Procedure Note Provider, MD Dee - 11/28/2016 NUCLEAR MEDICINE VENTILATION/PERFUSION LUNG SCAN HISTORY: Back pain with history of pulmonary emboli. TECHNIQUE: 5.4 mCi of technetium 99m MAA were utilized for perfusion study and 9.6 mCi of xenon gas were utilized. Comparison is made to chest x-ray dated 03/19/2016. The ventilation study demonstrates poor ventilation in the left lung. There is a normal ventilation in the right lung. Subsequent perfusion study demonstrates a large mismatched defect in the right upper lobe. No mismatched lesion is seen within the left lung. No corresponding abnormality is seen on the chest radiograph. DIAGNOSIS: There is a moderate to large mismatched defect in the right upper lobe. The findings are consistent with intermediate to high probability for pulmonary embolism. Further evaluation with contrast CT scan could be obtained, as clinically indicated. Dr. Strange was notified of critical results, 03/19/2016 at 1710 hours. Edited by: MARISEL GUSTAFSON Electronically signed by: Benedicto Ralph M.D. Radiologist: BENEDICTO RALPH Attending: KONSTANTIN, SLICKNFILE Requesting: KEM STRANGE Requesting Requesting ID: [id number] Attending Attending ID: [id number] Completed Time: 03/19/2016 5:01 PM Dictated Time: 03/19/2016 5:10 PM Transcribed Time: 03/19/2016 5:17 PM Signed by: BENEDICTO RALPH on 03/19/2016 5:56 PM Report To 1 ID: Report To 1 Name: , Report To 1 FAX: Report To 2 ID: Report To 2 Name: , Report To 2 FAX: Report To 3 ID: Report To 3 Name: , Report To 3 FAX: NextGen Order #: us Historical Provider MD YO NM PROCEDURES Final R esult * (ABNORMAL) Blood cell count (CBC), morphologic exam (03/19/2016 4:20 PM CDT) WBC 11.4(H) 3.8 - 9.9 K/cumm CDR HISTORICAL RESULTS RBC 5.57 4.30 - 5.80 M/cumm CDR HISTORICAL RESULTS Hgb 14.0 13.0 - 17.5 g/dl CDR HISTORICAL RESULTS Hct 44.9 38.9 - 50.3 % CDR HISTORICAL RESULTS MCV 80.6(L) 81.3 - 96.4 fl CDR HISTORICAL RESULTS MCH 25.1(L) 27.1 - 33.3 pg CDR HISTORICAL RESULTS MCHC 31.2(L) 32.3 - 35.7 g/dl CDR HISTORICAL RESULTS RDW 51.7(H) 35.7 - 48.2 fl CDR HISTORICAL RESULTS Rdw 18.4(H) 11.1 - 14.1 % CDR HISTORICAL RESULTS Platelets 329 150 - 400 K/cumm CDR HISTORICAL RESULTS MPV 10.3 9.1 - 12.3 fl CDR HISTORICAL RESULTS Neutrophils 77.3 44.0 - 80.0 % CDR HISTORICAL RESULTS Lymphocytes 8.1(L) 13.0 - 44.0 % CDR HISTORICAL RESULTS Monos 10.0 2.0 - 11.0 % CDR HISTORICAL RESULTS Eosinophils 1.0 0.0 - 6.0 % CDR HISTORICAL RESULTS Basophils 0.7 0.0 - 3.0 % CDR HISTORICAL RESULTS Immature granulocytes 2.9(H) 0.0 - 1.0 % CDR HISTORICAL RESULTS NRBC 0.0 0.0 - 0.2 % CDR HISTORICAL RESULTS Neutrophils, abs 8.8(H) 1.7 - 6.5 K/cumm CDR HISTORICAL RESULTS Lymphocytes, abs 0.9 0.8 - 3.3 K/cumm CDR HISTORICAL RESULTS Monocytes, absolute 1.1(H) 0.2 - 0.8 K/cumm CDR HISTORICAL RESULTS Eosinophils, abs 0.1 0.0 - 0.5 K/cumm CDR HISTORICAL RESULTS Basophils, abs 0.1 0.0 - 0.1 K/cumm CDR HISTORICAL RESULTS Immature granulocyte, abs 0.3(H) 0.0 - 0.1 K/cumm CDR HISTORICAL RESULTS NRBC, abs 0.00 0.00 - 0.01 K/cumm CDR HISTORICAL RESULTS Blood specimen (specimen) 03/19/2016 4:20 PM CDT Kem Strange MD LAB BLOOD ORDERABLES Final R esult CDR HISTORICAL RESULTS * (ABNORMAL) Blood D-dimer (03/19/2016 4:20 PM CDT) [facility] D-dimer 6660.00(H) 0.00 - 199.99 ng/ml D-DU CDR HISTORICAL RESULTS Comment: A cut-off value of 230 ng/mL D-dimer Units has a 100% negative predictive value for the exclusion of thrombosis. Blood specimen (specimen) 03/19/2016 4:20 PM CDT Kem Strange MD LAB BLOOD ORDERABLES Final R esult Performing Organization Address [facility] de Phone Number CDR HISTORICAL RESULTS * Blood B-type natriuretic peptide (BNP) (03/19/2016 4:20 PM CDT) Pathologist [facility] BNP 83 0 - 100 pg/ml CDR HISTORICAL RESULTS Blood specimen (specimen) 03/19/2016 4:20 PM CDT Kem Strange MD LAB BLOOD ORDERABLES Final R esult Performing Organization Address [facility] de Phone Number CDR HISTORICAL RESULTS * (ABNORMAL) Plasma comprehensive metabolic panel (03/19/2016 4:20 PM CDT) Pathologist [facility] Glucose 146(H) 70 - 140 mg/dl CDR HISTORICAL RESULTS Comment: Glucose is assumed to be non-fasting. ?? Fasting Glucose normal ranges are: 0 days - 2 months: ? 40 mg/dL - 100 mg/dL 2 months - 999 years: ?70 mg/dL - 99 mg/dL Sodium 138 136 - 146 mmol/L CDR HISTORICAL RESULTS Creatinine 2.11(H) 0.50 - 1.50 mg/dl CDR HISTORICAL RESULTS K, pl 5.2(H) 3.3 - 4.9 mmol/L CDR HISTORICAL RESULTS eGFR 31 ml/min/1.7 3 m2 CDR HISTORICAL RESULTS Comment: GFR Reference Range: = > 60 mL/min/1.73 m2 This result has been calculated assuming the patient is Non-. ??If the patient is , please multiply this result by 1.21. The GFR value is not recommended for medication dose adjustment for renal function, creatinine clearance values should be used. Chloride 105 98 - 108 mmol/L CDR HISTORICAL RESULTS Calcium 8.8 8.5 - 10.5 mg/dl CDR HISTORICAL RESULTS CO2 22 22 - 33 mmol/L CDR HISTORICAL RESULTS Bilirubin 0.8 0.1 - 1.2 mg/dl CDR HISTORICAL RESULTS BUN 24(H) 7 - 18 mg/dl CDR HISTORICAL RESULTS Protein, pl 6.7 6.0 - 8.5 g/dl CDR HISTORICAL RESULTS Alb 3.2(L) 3.4 - 5.0 g/dl CDR HISTORICAL RESULTS Alk phos 101 38 - 126 IUnits/L CDR HISTORICAL RESULTS ALT 13(L) 17 - 63 IUnits/L CDR HISTORICAL RESULTS AST 17 15 - 41 IUnits/L CDR HISTORICAL RESULTS Plasma 03/19/2016 4:20 PM CDT Kem Strange MD LAB BLOOD ORDERABLES Final R esult Performing Organization Address [facility] de Phone Number CDR HISTORICAL RESULTS * Plasma troponin I (03/19/2016 4:20 PM CDT) Troponin I <0.01 0.00 - 0.04 ng/ml CDR HISTORICAL RESULTS Comment: < 0.04 ng/mL ??No evidence of myocardial damage. 0.04 - 0.78 ng/mL Indeterminate-repeat analysis assess the possibility of myocardial damage. >0.78 ng/mL ??Consistent with myocardial damage. Plasma 03/19/2016 4:20 PM CDT Kem Strange MD LAB BLOOD ORDERABLES Final R esult Performing Organization Address [facility] de Phone Number CDR HISTORICAL RESULTS * Blood glucose (03/19/2016 1:45 PM CDT) Glucose, POC, bld 121 70 - 140 mg/dl [facility] HISTORICAL RESULTS Blood specimen (specimen) 03/19/2016 1:45 PM CDT Result [facility] Provider LAB BLOOD ORDERABLES Ruth l Result Performing Organization Address [facility] Co de Phone Number CDR HISTORICAL RESULTS * Urine Microbiology (03/19/2016 12:00 AM CDT) 03/19/2016 12:0 0 AM CDT Narrative CDR HISTORICAL RESULTS - 03/21/2016 1:30 PM CDT ? [facility] Laboratory Microbiology ?[address] ??[place], [place] ??[address] ? Tele: ? Mendoza Metz M.D. - Resistor Inspector - Benoit Ramirez - ? Upper Inspector ?? Patient: BERNIE CAREY ? Admission #: ??[id number] ?? : 1940 ?Location:[address] ?? Gender: M ?? Admit Date: 03/19/2016 ? = = = = = = = = = = = = = = = = = = = = = = = = = = = = = = = = = = = = = = Urine Culture ? Final ?? Urine ? Clean Voided ?? Collected: ??03/20/2016 09:40 ?? Inoculated: ??03/20/2016 10:23 ?? Report Date: ??03/21/2016 11:43 ? This culture was reflexed from a Urinalysis result ?? Culture Result ?Growth consistent with jf-urethral bari. = = = = = = = = = = = = = = = = = = = = = = = = = = = = = = = = = = = = = ? Physician: ?[facility] Microbiology Report-ClinDesk ? us Historical Provider MD LAB MICROBIOLOGY - GENERA L ORDERABLES Final Result Performing Organization Address City/State/[facility] Co de Phone Number CDR HISTORICAL RESULTS * Diagnostic Occult Blood, Stool (03/19/2016 12:00 AM CDT) 03/19/2016 12:0 0 AM CDT Narrative CDR HISTORICAL RESULTS - 03/21/2016 1:30 PM CDT ? [facility] Microbiology ?[address] ??[place], [place] ??[address] ? Tele: ? Mendoza Metz M.D. - Resistor Inspector - Benoit Ramirez - ? Upper Inspector ?? Patient: BERNIE CAREY ? Admission #: ??[id number] ?? : 1940 ?Location: [address] ?? Gender: M ?? Admit Date: 03/19/2016 ? = = = = = = = = = = = = = = = = = = = = = = = = = = = = = = = = = = = = = = ?? Occult Blood Stool Screen ? Stool ?? Collected ? 03/21/2016 ?Units ? Reference Range ? 10:14 ?? Specimen 1, ? Negative ?Negative ?? Fecal Occult ?? Blood ?? Specimen 1 ?03/21/16 ?? Collection ?? Date/Time = = = = = = = = = = = = = = = = = = = = = = = = = = = = = = = = = = = = = ? Physician: ?[facility] Microbiology Report-ClinDesk ? us Historical Provider LAB MICROBIOLOGY - GENERA L ORDERABLES Final Result CDR HISTORICAL RESULTS * FACTOR V LEIDEN MUTATION (03/19/2016) Narrative 03/19/2016 Ordered by an unspecified provider. us Historical Provider MD HAND BLOOD ORDERABLES Ruth l Result * PROTHROMBIN GENE MUTATION (03/19/2016) Narrative 03/19/2016 Ordered by an unspecified provider. us Historical Provider LAB BLOOD ORDERABLES Ruth l Result documented in this encounter Visit Diagnoses Diagnosis Other pulmonary embolism without acute cor pulmonale (HCC) Acute kidney failure (HCC) Acute kidney failure, unspecified Hypotension Unspecified hypotension Paroxysmal atrial fibrillation ([facility]) (HCC) Atrial fibrillation Type 2 diabetes mellitus with hyperglycemia ([facility]) (HCC) Type 2 diabetes mellitus without complications (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
--- OUTSIDE RECORDS SUMMARY | 2024-07-24 00:12 | XMS_ITS | Encounter Summary ---
Author Organization [facility] Care Team Providers Care Salon Receptionist Name Role Phone Unavailable Primary Care Provider Unavailabl e Encounter Details Date Type Department Care Team (Latest Contact Info) Description 07/01/2015 7:45 AM CELL ASSEMBLY PINNER - 07/04/2015 6:56 PM [facility] Hospital Encounter [facility] Other pulmonary embolism with acute cor pulmonale (CMS/HCC); Acute respiratory failure with hypoxia (CMS/HCC); Type 2 diabetes mellitus with hyperglycemia (CMS/HCC); Dependence on supplemental oxygen; Body mass index (BMI) of 40.0-44.9 in adult (CMS/HCC); Osteomyelitis of vertebra of lumbar region (CMS/HCC); Essential (primary) hypertension; Hyperlipidemia; Other specified postprocedural state; Atrial fibrillation (CMS/HCC); Major depressive disorder, single episode (CMS/HCC); Enlarged prostate without lower urinary tract symptoms (luts); nursing home current use of insulin (CMS/HCC); Personal history of nicotine dependence; Monoclonal gammopathy; Rheumatic tricuspid insufficiency; long term care social worker current use of anticoagulant; Morbid (severe) obesity due to excess calories ([facility]); Infection following a procedure, subsequent encounter; Infection and inflammatory reaction due to other internal prosthetic devices, implants and grafts, subsequent encounter; Presence of other vascular implants and grafts Social History Tobacco Use Types Packs/Day Years Used Date Smoking Tobacco: Never Assessed Sex and Gender Information Value Date Recorded Sex Assigned at Not on file Legal Sex Male 3:18 AM CELL ASSEMBLY PINNER Gender Identity Not on file Sexual Orientation Not on file documented as of this encounter Last Filed Vital Signs Vital Sign Reading Time Taken Comments Blood Pressure 114/45 07/04/2015 1:18 PM CELL [employer]SEMBLY PINNER Pulse 76 07/04/2015 1:18 PM CELL ASSEMBLY PINNER Temperature - - Respiratory Rate - - Oxygen Saturation 97% 07/04/2015 1:18 PM CELL ASSEMBLY PINNER Inhaled Oxygen Concentration - - Weight 156.2 kg (344 lb 6.1 oz) 07/01/2015 8:00 AM CELL ASSEMBLY PINNER Height 188 cm (6' 2 ) 07/01/2015 8:00 AM CELL ASSEMBLY PINNER Body Mass Index 44.22 07/01/2015 8:00 AM CELL ASSEMBLY PINNER documented in this encounter Plan of Treatment Not on file documented as of this encounter Procedures Procedure Name Priority Date/Time Associated Diagnosis Comments BLOOD GLUCOSE, POC Routine 07/04/2015 5: 40 PM CELL ASSEMBLY PINNER BLOOD GLUCOSE, POC Routine 07/04/2015 12 :12 PM CELL ASSEMBLY PINNER BLOOD GLUCOSE, POC Routine 07/04/2015 8: 04 AM CELL ASSEMBLY PINNER DISCHARGE LABORATORY CUMULATIVE REPORT 07/04/2015 SERUM VANCOMYCIN DRUG LEVEL Routine 07/03/2015 8:45 PM CELL ASSEMBLY PINNER BLOOD GLUCOSE, POC Routine 07/03/2015 7: 55 PM CELL ASSEMBLY PINNER SERUM CREATININE Routine 07/03/2015 6:33 PM CELL ASSEMBLY PINNER PLASMA PROTHROMBIN TIME (PT) Routine 07/03/2015 6:33 PM CELL ASSEMBLY PINNER PLASMA PARTIAL THROMBOPLASTIN TIME (PTT) Routine 07/03/2015 6:33 PM CELL ASSEMBLY PINNER BLOOD CELL COUNT Routine 07/03/2015 6:33 PM CELL ASSEMBLY PINNER BLOOD GLUCOSE, POC Routine 07/03/2015 4: 26 PM CELL ASSEMBLY PINNER PLASMA PROTHROMBIN TIME (PT) Routine 07/03/2015 2:02 PM CELL ASSEMBLY PINNER BLOOD CELL COUNT Routine 07/03/2015 2:02 PM CELL ASSEMBLY PINNER BLOOD GLUCOSE, POC Routine 07/03/2015 12 :11 PM CELL ASSEMBLY PINNER BLOOD GLUCOSE, POC Routine 07/03/2015 9: 16 AM CELL ASSEMBLY PINNER PLASMA PARTIAL THROMBOPLASTIN TIME (PTT) Routine 07/02/2015 11:46 PM CELL ASSEMBLY PINNER PLASMA BASIC METABOLIC PANEL Routine 07/02/2015 11:46 PM CELL ASSEMBLY PINNER BLOOD CELL COUNT (CBC) Routine 5 11:46 PM CELL ASSEMBLY PINNER BLOOD GLUCOSE, POC Routine 07/02/2015 8: 48 PM CELL ASSEMBLY PINNER BLOOD GLUCOSE, POC Routine 07/02/2015 5: 57 PM CELL ASSEMBLY PINNER SERUM VANCOMYCIN, TROUGH DRUG LEVEL Routine 07/02/2015 4:51 PM CELL ASSEMBLY PINNER PLASMA POTASSIUM Routine 07/02/2015 4:51 PM CELL ASSEMBLY PINNER CRITICAL RESULT CALL BACK Routine 07/02/2015 4:51 PM CELL ASSEMBLY PINNER BLOOD GLUCOSE, POC Routine 07/02/2015 12 :14 PM CELL ASSEMBLY PINNER BLOOD GLUCOSE, POC Routine 07/02/2015 7: 54 AM CELL ASSEMBLY PINNER XR CHEST 1 VIEW Routine 07/02/2015 7:11 AM CELL ASSEMBLY PINNER SERUM MAGNESIUM Routine 07/02/2015 2:16 AM CELL ASSEMBLY PINNER PLASMA PHOSPHORUS Routine 07/02/2015 2:1 6 AM CELL ASSEMBLY PINNER PLASMA PARTIAL THROMBOPLASTIN TIME (PTT) Routine 07/02/2015 2:16 AM CELL ASSEMBLY PINNER PLASMA BASIC METABOLIC PANEL Routine 07/02/2015 2:16 AM CELL ASSEMBLY PINNER BLOOD CELL COUNT (CBC) Routine 5 2:16 AM CELL ASSEMBLY PINNER PLASMA PARTIAL THROMBOPLASTIN TIME (PTT) Routine 07/01/2015 8:44 PM CELL ASSEMBLY PINNER BLOOD GLUCOSE, POC Routine 07/01/2015 8: 38 PM CELL ASSEMBLY PINNER BLOOD GLUCOSE, POC Routine 07/01/2015 5: 19 PM CELL ASSEMBLY PINNER PLASMA PARTIAL THROMBOPLASTIN TIME (PTT) Routine 07/01/2015 3:15 PM CELL ASSEMBLY PINNER SERUM TROPONIN I Routine 07/01/2015 10:3 7 AM CELL ASSEMBLY PINNER MRSA SURVEILLANCE CULTURE, CDR Routine 07/01/2015 9:12 AM CELL ASSEMBLY PINNER BLOOD GLUCOSE, POC Routine 07/01/2015 5: 38 AM CELL ASSEMBLY PINNER BLOOD B-TYPE NATRIURETIC PEPTIDE (BNP) Routine 07/01/2015 5:34 AM CELL ASSEMBLY PINNER BLOOD CELL COUNT (CBC) Routine 5 5:34 AM CELL ASSEMBLY PINNER OUTSIDE ED PLAIN FILM REFERENCE Routine 07/01/2015 4:23 AM CELL ASSEMBLY PINNER OUTSIDE ED BODY CT MR CONSULT Routine 07/01/2015 4:23 AM CELL ASSEMBLY PINNER OUTSIDE ED BODY CT MR CONSULT Routine 07/01/2015 4:23 AM CELL ASSEMBLY PINNER SERUM TROPONIN I Routine 07/01/2015 3:51 AM CELL ASSEMBLY PINNER SERUM LIPID PANEL Routine 07/01/2015 3:5 1 AM CELL ASSEMBLY PINNER PLASMA PROTHROMBIN TIME (PT) Routine 07/01/2015 3:51 AM CELL ASSEMBLY PINNER PLASMA PARTIAL THROMBOPLASTIN TIME (PTT) Routine 07/01/2015 3:51 AM CELL ASSEMBLY PINNER PLASMA BASIC METABOLIC PANEL Routine 07/01/2015 3:51 AM CELL ASSEMBLY PINNER BLOOD ABO, RH, INDIRECT AB SCREEN Routine 07/01/2015 3:51 AM CELL ASSEMBLY PINNER ALL MICROBIOLOGY REPORT SECTION Routine 07/01/2015 12:00 AM CELL ASSEMBLY PINNER documented in this encounter Results * Blood glucose, POC (07/04/2015 5:40 PM CELL ASSEMBLY PINNER) Glucose, POC, bld 132 70 - 199 mg/dl HISTORICAL RESULTS Blood specimen (specimen) 07/04/2015 5:40 PM CELL ASSEMBLY PINNER Result [facility] Ketan Galvan MD LAB BLOOD ORDERABLES Ruth l Result Performing Organization Address [facility] de Phone Number HISTORICAL RESULTS * Blood glucose, POC (07/04/2015 12:12 PM CELL ASSEMBLY PINNER) Glucose, POC, bld 169 70 - 199 mg/dl HISTORICAL RESULTS Blood specimen (specimen) 07/04/2015 12:12 PM CELL ASSEMBLY PINNER Result [facility] Ketan Galvan MD LAB BLOOD ORDERABLES Ruth l Result Performing Organization Address [facility] de Phone Number HISTORICAL RESULTS * Blood glucose, POC (07/04/2015 8:04 AM CELL ASSEMBLY PINNER) Glucose, POC, bld 145 70 - 199 mg/dl HISTORICAL RESULTS Blood specimen (specimen) 07/04/2015 8:04 AM CELL ASSEMBLY PINNER Result [facility] Ketan Galvan MD LAB BLOOD ORDERABLES Ruth l Result Performing Organization Address [facility] de Phone Number HISTORICAL RESULTS * DISCHARGE LABORATORY CUMULATIVE REPORT (07/04/2015) Narrative 07/04/2015 Ordered by an unspecified provider. Historical Provider LAB BLOOD ORDERABLES Ruth l Result * Serum vancomycin drug level (07/03/2015 8:45 PM CELL ASSEMBLY PINNER) Vancomycin 12.7 mcg/ml HISTORICA L RESULTS Serum 07/03/2015 8:45 PM CELL ASSEMBLY PINNER us Puma Lopez LAB BLOOD ORDERABLES Final Resul t Performing Organization Address [facility] de Phone Number HISTORICAL RESULTS * Blood glucose, POC (07/03/2015 7:55 PM CELL ASSEMBLY PINNER) Glucose, POC, bld 183 70 - 199 mg/dl HISTORICAL RESULTS Blood specimen (specimen) 07/03/2015 7:55 PM CE[employer]SEMBLY PINNER Ketan Galvan MD LAB BLOOD ORDERABLES Ruth l Result Performing Organization Address [facility] de Phone Number HISTORICAL RESULTS * Plasma partial thromboplastin time (PTT) (07/03/2015 6:33 PM CELL ASSEMBLY PINNER) APTT 30.7 25.0 - 37.0 seconds HISTORICAL RESULTS Comment: Interpretive Data Therapeutic heparin range:60.0 - 94.0 sec based on correlation with therapeutic heparin activity range of 0.3 -0.7 Units/mL. Current interpretive data was last revised on 2011. Plasma 07/03/2015 6:33 PM CELL ASSEMBLY PINNER Puma Lopez LAB BLOOD ORDERABLES Final Resul t Performing Organization Address [facility] de Phone Number HISTORICAL RESULTS * (ABNORMAL) Plasma prothrombin time (PT) (07/03/2015 6:33 PM CELL ASSEMBLY PINNER) Prothrombin time (PT) 13.4(H) 9.2 - 13.0 [...] updated copy of the Tool Book at [email or web address] Current Interpretive Data was last revised 2011. Plasma 07/03/2015 6:33 PM CELL ASSEMBLY PINNER Puma Jessica LAB BLOOD ORDERABLES Final Resul t Performing Organization Address [facility] de Phone Number HISTORICAL RESULTS * (ABNORMAL) Serum creatinine (07/03/2015 6:33 PM CELL ASSEMBLY PINNER) Creatinine 1.32(H) 0.70 - 1.30 mg/dl HISTORICAL RESULTS Serum 07/03/2015 6:33 PM CELL ASSEMBLY PINNER us Puma Jessica LAB BLOOD ORDERABLES Final Resul t Performing Organization Address [facility] de Phone Number HISTORICAL RESULTS * (ABNORMAL) Blood cell count [CBC] express (07/03/2015 6:33 PM CELL ASSEMBLY PINNER) WBC 11.2(H) 3.8 - 9.8 K/cumm HISTORICAL RESULTS RBC 3.19(L) 4.50 - 5.70 M/cumm HISTORICAL RESULTS Hgb 8.9(L) 13.8 - 17.2 g/dl HISTORICAL RESULTS Hct 28.0(L) 40.7 - 50.3 % HISTORICAL RESULTS MCV 87.7 80.0 - 97.6 fl HISTORICAL RESULTS MCH 28.0 26.7 - 33.7 pg HISTORICAL RESULTS MCHC 31.9(L) 32.7 - 35.5 g/dl HISTORICAL RESULTS Rdw 15.0(H) 11.8 - 14.6 % HISTORICAL RESULTS Platelets 565(H) 140 - 440 K/cumm HISTORICAL RESULTS MPV 8.3 6.8 - 10.4 fl HISTORICAL RESULTS Blood specimen (specimen) 07/03/2015 6:33 PM CELL ASSEMBLY PINNER us Puma Jessica LAB BLOOD ORDERABLES Final Resul t HISTORICAL RESULTS * Blood glucose, POC (07/03/2015 4:26 PM CELL ASSEMBLY PINNER) Glucose, POC, bld 150 70 - 199 mg/dl HISTORICAL RESULTS Blood specimen (specimen) 07/03/2015 4:26 PM CELL ASSEMBLY PINNER us Ketan Galvan MD LAB BLOOD ORDERABLES Ruth l Result Performing Organization Address [facility] Co de Phone Number HISTORICAL RESULTS * (ABNORMAL) Plasma prothrombin time (PT) (07/03/2015 2:02 PM CELL ASSEMBLY PINNER) Prothrombin time (PT) 13.7(H) 9.2 - 13.0 seconds HISTORICAL RESULTS INR 1.27(H) 0.90 - 1.20 HISTORIC AL RESULTS Comment: Interpretive Data Inpatient therapeutic ranges* Atrial fibrillation ?2.0-3.0 INR Venous thrombo-embolism ?2.0-3.0 INR Bioprosthetic heart valve ?* Mechanical heart valve, bileaflet or tilting disk,aortic position ? 2.0-3.0 INR All other,or bileaflet or tilting disk, in mitral position ? 2.5-3.5 INR *See the pharmacy resource directory (PHRED) for an updated copy of the Tool Book at [email or web address]/[email or web address] Current Interpretive Data was last revised 2011. Plasma 07/03/2015 2:02 PM CELL ASSEMBLY PINNER us Barney Miller MD LAB BLOOD ORDERABLES Final R esult HISTORICAL RESULTS * (ABNORMAL) Blood cell count [CBC] express (07/03/2015 2:02 PM CELL ASSEMBLY PINNER) WBC 10.9(H) 3.8 - 9.8 K/cumm HISTORICAL RESULTS RBC 3.26(L) 4.50 - 5.70 M/cumm HISTORICAL RESULTS Hgb 9.3(L) 13.8 - 17.2 g/dl HISTORICAL RESULTS Hct 28.8(L) 40.7 - 50.3 % HISTORICAL RESULTS MCV 88.3 80.0 - 97.6 fl HISTORICAL RESULTS MCH 28.4 26.7 - 33.7 pg HISTORICAL RESULTS MCHC 32.2(L) 32.7 - 35.5 g/dl HISTORICAL RESULTS Rdw 15.8(H) 11.8 - 14.6 % HISTORICAL RESULTS Platelets 591(H) 140 - 440 K/cumm HISTORICAL RESULTS MPV 8.9 6.8 - 10.4 fl HISTORICAL RESULTS Blood specimen (specimen) 07/03/2015 2:02 PM CELL ASSEMBLY PINNER Barney Miller MD LAB BLOOD ORDERABLES Final R esult Performing Organization Address [facility] Co de Phone Number HISTORICAL RESULTS * Blood glucose, POC (07/03/2015 12:11 PM CELL ASSEMBLY PINNER) Glucose, POC, bld 145 70 - 199 mg/dl HISTORICAL RESULTS Blood specimen (specimen) 07/03/2015 12:11 PM CE[employer]SEMBLY PINNER Ketan Galvan MD LAB BLOOD ORDERABLES Ruth l Result HISTORICAL RESULTS * Blood glucose, POC (07/03/2015 9:16 AM CELL ASSEMBLY PINNER) Glucose, POC, bld 143 70 - 199 mg/dl HISTORICAL RESULTS Blood specimen (specimen) 07/03/2015 9:16 AM CE[employer]SEMBLY PINNER Ketan Galvan MD LAB BLOOD ORDERABLES Ruth l Result HISTORICAL RESULTS * (ABNORMAL) Plasma basic metabolic panel (07/02/2015 11:46 PM CELL ASSEMBLY PINNER) Pathologist [facility] Sodium 140 135 - 145 mmol/L HISTORICAL RESULTS K, pl 3.7 3.3 - 4.9 mmol/L HISTORICAL RESULTS Chloride 104 97 - 110 mmol/L HISTORICAL RESULTS CO2 27 22 - 32 mmol/L HISTORICAL RESULTS A. gap 9 0 - 16 mmol/L HISTORICAL RESULTS Glucose 146 70 - 199 mg/dl HISTORICAL RESULTS BUN 15 8 - 25 mg/dl HISTORICAL RESULTS Creatinine 1.08 0.70 - 1.30 mg/dl HISTORICAL RESULTS Calcium 8.1(L) 8.6 - 10.3 mg/dl HISTORICAL RESULTS Plasma 07/02/2015 11:4 6 PM CELL ASSEMBLY PINNER Prakash Tejada LAB BLOOD ORDERABLES Final Result Performing Organization Address [facility] Co de Phone Number HISTORICAL RESULTS * (ABNORMAL) Blood cell count (CBC) (07/02/2015 11:46 PM CELL ASSEMBLY PINNER) Pathologist [facility] WBC 11.5(H) 3.8 - 9.8 K/cumm HISTORICAL RESULTS RBC 2.95(L) 4.50 - 5.70 M/cumm HISTORICAL RESULTS Hgb 8.3(L) 13.8 - 17.2 g/dl HISTORICAL RESULTS Hct 26.1(L) 40.7 - 50.3 % HISTORICAL RESULTS MCV 88.4 80.0 - 97.6 fl HISTORICAL RESULTS MCH 28.1 26.7 - 33.7 pg HISTORICAL RESULTS MCHC 31.8(L) 32.7 - 35.5 g/dl HISTORICAL RESULTS Rdw 15.5(H) 11.8 - 14.6 % HISTORICAL RESULTS Platelets 498(H) 140 - 440 K/cumm HISTORICAL RESULTS MPV 8.1 6.8 - 10.4 fl HISTORICAL RESULTS Neutrophils 66.8 38.7 - 74.5 % HISTORICAL RESULTS Lymphocytes 16.1(L) 20.0 - 54.3 % HISTORICAL RESULTS Monos 13.7(H) 4.3 - 13.5 % HISTORICAL RESULTS Eosinophils 3.0 0.0 - 6.0 % HISTORICAL RESULTS Basophils 0.4 0.0 - 3.0 % HISTORICAL RESULTS Neutrophils, abs 7.7(H) 1.8 - 6.6 K/cumm HISTORICAL RESULTS Lymphocytes, abs 1.9 1.2 - 3.3 K/cumm HISTORICAL RESULTS Monocytes, absolute 1.6(H) 0.2 - 1.2 K/cumm HISTORICAL RESULTS Eosinophils, abs 0.3 0.0 - 0.5 K/cumm HISTORICAL RESULTS Basophils, abs 0.0 0.0 - 0.2 K/cumm HISTORICAL RESULTS Blood specimen (specimen) 07/02/2015 11:46 PM CELL ASSEMBLY PINNER Prakash Tejada LAB BLOOD ORDERABLES Final Result Performing Organization Address [facility] de Phone Number HISTORICAL RESULTS * (ABNORMAL) Plasma partial thromboplastin time (PTT) (07/02/2015 11:46 PM CELL ASSEMBLY PINNER) APTT 64.8(H) 25.0 - 37.0 seconds HISTORICAL RESULTS Comment: Interpretive Data Therapeutic heparin range:60.0 - 94.0 sec based on correlation with therapeutic heparin activity range of 0.3 -0.7 Units/mL. Current interpretive data was last revised on 2011. Plasma 07/02/2015 11:4 6 PM CELL ASSEMBLY PINNER Ramos Perla LAB BLOOD ORDERABLES Final Re sult Performing Organization Address [facility] de Phone Number HISTORICAL RESULTS * (ABNORMAL) Blood glucose, POC (07/02/2015 8:48 PM CELL ASSEMBLY PINNER) Glucose, POC, bld 262(H) 70 - 199 mg/dl HISTORICAL RESULTS Gluc, com 1, bld RN Notified HISTORICAL RESULTS Blood specimen (specimen) 07/02/2015 8:48 PM CELL ASSEMBLY PINNER Ketan Galvan MD LAB BLOOD ORDERABLES Ruth l Result Performing Organization Address [facility] de Phone Number HISTORICAL RESULTS * Blood glucose, POC (07/02/2015 5:57 PM CELL ASSEMBLY PINNER) Glucose, POC, bld 196 70 - 199 mg/dl HISTORICAL RESULTS Blood specimen (specimen) 07/02/2015 5:57 PM CE[employer] ASSEMBLY PINNER Ketan Galvan MD LAB BLOOD ORDERABLES Ruth l Result Performing Organization Address [facility] de Phone Number HISTORICAL RESULTS * (ABNORMAL) Serum vancomycin, trough drug level (07/02/2015 4:51 PM CELL ASSEMBLY PINNER) Vancomycin, trough 26.6(C) 10.0 - 20.9 mcg/ml HISTORICAL RESULTS Comment: Interpretive Data Therapeutic Range: ?? Uncomplicated skin and soft tissue infections: 10-20 mcg/mL ?? All other infections: ??15-20 mcg/mL Current interpretive data was last revised on 12. Serum 07/02/2015 4:51 PM CELL ASSEMBLY PINNER Ramos Perla LAB BLOOD ORDERABLES Final Re sult Performing Organization Address [facility] de Phone Number HISTORICAL RESULTS * Plasma potassium (07/02/2015 4:51 PM CELL ASSEMBLY PINNER) K, pl 3.8 3.3 - 4.9 mmol/L HISTORICAL RESULTS Plasma 07/02/2015 4:51 PM CELL ASSEMBLY PINNER Ramos Perla LAB BLOOD ORDERABLES Final Re sult Performing Organization Address [facility] de Phone Number HISTORICAL RESULTS * Critical result call back (07/02/2015 4:51 PM CELL ASSEMBLY PINNER) Date notified 07/02/2015 HISTO RICAL RESULTS Time notified 1902 HISTOR ICAL RESULTS Test name vancomycin tr HISTOR ICAL RESULTS Called to nichelle zapien HISTOR ICAL RESULTS Credentials RN HISTORIC AL RESULTS Called by jose HISTORICAL RESULTS No specimen 07/02/2015 4:51 PM CELL ASSEMBLY PINNER Ramos Perla LAB BLOOD ORDERABLES Final Re sult Performing Organization Address [facility] de Phone Number HISTORICAL RESULTS * Blood glucose, POC (07/02/2015 12:14 PM CELL ASSEMBLY PINNER) Glucose, POC, bld 199 70 - 199 mg/dl HISTORICAL RESULTS Blood specimen (specimen) 07/02/2015 12:14 PM CELL ASSEMBLY PINNER Monty Rodriguez MD LAB BLOOD ORDERABLES Final Re sult Performing Organization Address [facility] de Phone Number HISTORICAL RESULTS * Blood glucose, POC (07/02/2015 7:54 AM CELL ASSEMBLY PINNER) Glucose, POC, bld 140 70 - 199 mg/dl HISTORICAL RESULTS Blood specimen (specimen) 07/02/2015 7:54 AM CELL ASSEMBLY PINNER Result [facility] Monty Rodriguez MD LAB BLOOD ORDERABLES Final Re sult Performing Organization Address [facility] de Phone Number HISTORICAL RESULTS * XR Chest 1 View (07/02/2015 7:11 AM CELL ASSEMBLY PINNER) Anatomical Region Laterality Modality Body, Chest N/A Radiographic Ary ging 07/02/2015 7:11 AM CELL ASSEMBLY PINNER Narrative 07/02/2015 11:55 AM CELL ASSEMBLY PINNER AVA TABOR M.D. POOJA TYSON M.D. FINAL REPORT The radiology attending physician has personally reviewed this study, and has reviewed and/or edited this written report and agrees with it. ACC# ??Date Time ??Exam [id number] Jul 02, 2015 07:11:00 [id number] Chest 1 view Frontal EXAMINATION: ?? Chest 1 View IMPRESSION: ?? Comparison is made to 06/21/2015. Interval extubation, removal of the gastric tube and removal of the right internal jugular central venous catheter. The left peripherally inserted central venous catheter tip now projects at the junction of the brachiocephalic vein and superior vena cava. Bibasilar atelectasis noted. There is a tiny left pleural effusion. Left lateral pleural parenchymal thickening may represent scarring or pleural fluid. No pneumothorax. The cardiomediastinal silhouette is stable. Multiple old left rib fractures again noted. Requested By: VAMSI GOOD M.D. Dictated By: ?? POOJA TYSON M.D. ??on Jul 02 2015 ??9:11A This document has been electronically signed by: AVA TABOR M.D. on Jul 02 2015 11:55A [id number] Procedure Note Provider, MD Dee - 11/28/2016 Navid MURO M.D. FINAL REPORT The radiology attending physician has personally reviewed this study, and has reviewed and/or edited this written report and agrees with it. ACC# Date Time Exam [id number] Jul 02, 2015 07:11:00 [id number] Chest 1 view Frontal EXAMINATION: Chest 1 View IMPRESSION: Comparison is made to 06/21/2015. Interval extubation, removal of the gastric tube and removal of the right internal jugular central venous catheter. The left peripherally inserted central venous catheter tip now projects at the junction of the brachiocephalic vein and superior vena cava. Bibasilar atelectasis noted. There is a tiny left pleural effusion. Left lateral pleural parenchymal thickening may represent scarring or pleural fluid. No pneumothorax. The cardiomediastinal silhouette is stable. Multiple old left rib fractures again noted. Requested By: VAMSI GOOD M.D. Dictated By: POOJA TYSON M.D. on Jul 02 2015 9:11A This document has been electronically signed by: AVA TABOR M.D. on Jul 02 2015 11:55A [id number] us Historical Provider IMTamiko XR PROCEDURES Final R esult * (ABNORMAL) Plasma partial thromboplastin time (PTT) (07/02/2015 2:16 AM CELL ASSEMBLY PINNER) APTT 78.7(H) 25.0 - 37.0 seconds HISTORICAL RESULTS Comment: Interpretive Data Therapeutic heparin range:60.0 - 94.0 sec based on correlation with therapeutic heparin activity range of 0.3 -0.7 Units/mL. Current interpretive data was last revised on 2011. Plasma 07/02/2015 2:16 AM CELL ASSEMBLY PINNER us Ramos Perla LAB BLOOD ORDERABLES Final Re sult Performing Organization Address [facility] de Phone Number HISTORICAL RESULTS * (ABNORMAL) Plasma basic metabolic panel (07/02/2015 2:16 AM CELL ASSEMBLY PINNER) Sodium 141 135 - 145 mmol/L HISTORICAL RESULTS K, pl 3.9 3.3 - 4.9 mmol/L HISTORICAL RESULTS Chloride 106 97 - 110 mmol/L HISTORICAL RESULTS CO2 29 22 - 32 mmol/L HISTORICAL RESULTS A. gap 6 0 - 16 mmol/L HISTORICAL RESULTS Glucose 162 70 - 199 mg/dl HISTORICAL RESULTS BUN 14 8 - 25 mg/dl HISTORICAL RESULTS Creatinine 1.04 0.70 - 1.30 mg/dl HISTORICAL RESULTS Calcium 8.0(L) 8.6 - 10.3 mg/dl HISTORICAL RESULTS Plasma 07/02/2015 2:16 AM CELL ASSEMBLY PINNER Kenneth Becerra MD LAB BLOOD ORDERABLES Fin al Result Performing Organization Address [facility] de Phone Number HISTORICAL RESULTS * Plasma phosphorus (07/02/2015 2:16 AM CELL ASSEMBLY PINNER) Phosphorus, pl 2.5 2.3 - 4.3 mg/dl HISTORICAL RESULTS Plasma 07/02/2015 2:16 AM CELL ASSEMBLY PINNER Kenneth Becerra MD LAB BLOOD ORDERABLES Fin al Result Performing Organization Address [facility] de Phone Number HISTORICAL RESULTS * Serum magnesium (07/02/2015 2:16 AM CELL ASSEMBLY PINNER) Magnesium 2.1 1.4 - 2.5 mg/dl HISTORICAL RESULTS Serum 07/02/2015 2:16 AM CELL ASSEMBLY PINNER Kenneth Becerra MD LAB BLOOD ORDERABLES Fin al Result Performing Organization Address [facility] de Phone Number HISTORICAL RESULTS * (ABNORMAL) Blood cell count (CBC) (07/02/2015 2:16 AM CELL ASSEMBLY PINNER) WBC 12.7(H) 3.8 - 9.8 K/cumm HISTORICAL RESULTS RBC 3.15(L) 4.50 - 5.70 M/cumm HISTORICAL RESULTS Hgb 8.9(L) 13.8 - 17.2 g/dl HISTORICAL RESULTS Hct 27.7(L) 40.7 - 50.3 % HISTORICAL RESULTS MCV 88.0 80.0 - 97.6 fl HISTORICAL RESULTS MCH 28.3 26.7 - 33.7 pg HISTORICAL RESULTS MCHC 32.1(L) 32.7 - 35.5 g/dl HISTORICAL RESULTS Rdw 15.9(H) 11.8 - 14.6 % HISTORICAL RESULTS Platelets 498(H) 140 - 440 K/cumm HISTORICAL RESULTS MPV 7.7 6.8 - 10.4 fl HISTORICAL RESULTS Neutrophils 71.7 38.7 - 74.5 % HISTORICAL RESULTS Lymphocytes 11.7(L) 20.0 - 54.3 % HISTORICAL RESULTS Monos 14.0(H) 4.3 - 13.5 % HISTORICAL RESULTS Eosinophils 2.1 0.0 - 6.0 % HISTORICAL RESULTS Basophils 0.5 0.0 - 3.0 % HISTORICAL RESULTS Neutrophils, abs 9.1(H) 1.8 - 6.6 K/cumm HISTORICAL RESULTS Lymphocytes, abs 1.5 1.2 - 3.3 K/cumm HISTORICAL RESULTS Monocytes, absolute 1.8(H) 0.2 - 1.2 K/cumm HISTORICAL RESULTS Eosinophils, abs 0.3 0.0 - 0.5 K/cumm HISTORICAL RESULTS Basophils, abs 0.1 0.0 - 0.2 K/cumm HISTORICAL RESULTS Blood specimen (specimen) 07/02/2015 2:16 AM CELL ASSEMBLY PINNER us Happy Adrian Becerra MD LAB BLOOD ORDERABLES Fin al Result HISTORICAL RESULTS * (ABNORMAL) Plasma partial thromboplastin time (PTT) (07/01/2015 8:44 PM CELL ASSEMBLY PINNER) APTT 74.4(H) 25.0 - 37.0 seconds HISTORICAL RESULTS Comment: Interpretive Data Therapeutic heparin range:60.0 - 94.0 sec based on correlation with therapeutic heparin activity range of 0.3 -0.7 Units/mL. Current interpretive data was last revised on 2011. Plasma 07/01/2015 8:44 PM CELL ASSEMBLY PINNER Ramos Perla LAB BLOOD ORDERABLES Final Re sult Performing Organization Address [facility] de Phone Number HISTORICAL RESULTS * (ABNORMAL) Blood glucose, POC (07/01/2015 8:38 PM CELL ASSEMBLY PINNER) Glucose, POC, bld 202(H) 70 - 199 mg/dl HISTORICAL RESULTS Blood specimen (specimen) 07/01/2015 8:38 PM CELL ASSEMBLY PINNER Result [facility] Monty Rodriguez MD LAB BLOOD ORDERABLES Final Re sult Performing Organization Address [facility] de Phone Number HISTORICAL RESULTS * Blood glucose, POC (07/01/2015 5:19 PM CELL ASSEMBLY PINNER) Glucose, POC, bld 190 70 - 199 mg/dl HISTORICAL RESULTS Blood specimen (specimen) 07/01/2015 5:19 PM CELL ASSEMBLY PINNER Result [facility] us Monty Rodriguez MD LAB BLOOD ORDERABLES Final Re sult Performing Organization Address [facility] de Phone Number HISTORICAL RESULTS * (ABNORMAL) Plasma partial thromboplastin time (PTT) (07/01/2015 3:15 PM CELL ASSEMBLY PINNER) APTT 73.1(H) 25.0 - 37.0 seconds HISTORICAL RESULTS Comment: Interpretive Data Therapeutic heparin range:60.0 - 94.0 sec based on correlation with therapeutic heparin activity range of 0.3 -0.7 Units/mL. Current interpretive data was last revised on 2011. Plasma 07/01/2015 3:15 PM CELL ASSEMBLY PINNER Ramos Perla LAB BLOOD ORDERABLES Final Re sult Performing Organization Address [facility] Co de Phone Number HISTORICAL RESULTS * (ABNORMAL) Serum troponin I (07/01/2015 10:37 AM CELL ASSEMBLY PINNER) Pathologist [facility] Troponin I 0.49(C) 0.00 - 0.03 ng/ml HISTORICAL RESULTS Comment: {Previous critical value noted 6 hours ago.} Interpretive Data Serial determinations are recommended for the diagnosis of myocardial infarction (Third Lutz Definition of Myocardial Infarction. ??J Am Omid Cardiol 2012;60:1581-98). Current interpretive data was last revised on 13. Serum 07/01/2015 10:3 7 AM CELL ASSEMBLY PINNER [facility] Adrian Becerra MD LAB BLOOD ORDERABLES Fin al Result Performing Organization Address [facility] Co de Phone Number HISTORICAL RESULTS * Methicillin-resistant Staphylococcus aureus (MRSA) surveillance culture (07/01/2015 9:12 AM CELL ASSEMBLY PINNER) Nasal (Unknown) 07/01/2015 9 :12 AM CELL ASSEMBLY PINNER 07/01/2015 10:55 AM CELL ASSEMBLY PINNER Impressions HISTORICAL RESULTS - 07/02/2015 12:43 PM CELL ASSEMBLY PINNER This test is for Infection Prevention surveillance; no charge to the patient. Narrative HISTORICAL RESULTS - 07/02/2015 12:43 PM CELL ASSEMBLY PINNER Negative Historical Provider LAB MICROBIOLOGY - GENERA L ORDERABLES Final Result Performing Organization Address [facility] Co de Phone Number HISTORICAL RESULTS * Blood glucose, POC (07/01/2015 5:38 AM CELL ASSEMBLY PINNER) Pathologist [facility] Glucose, POC, bld 164 70 - 199 mg/dl HISTORICAL RESULTS Blood specimen (specimen) 07/01/2015 5:38 AM CELL ASSEMBLY PINNER Historical Provider LAB BLOOD ORDERABLES Ruth l Result Performing Organization Address [facility] Co de Phone Number HISTORICAL RESULTS * (ABNORMAL) Blood cell count (CBC) (07/01/2015 5:34 AM CELL ASSEMBLY PINNER) Pathologist [facility] WBC 13.2(H) 3.8 - 9.8 K/cumm HISTORICAL RESULTS RBC 3.65(L) 4.50 - 5.70 M/cumm HISTORICAL RESULTS Hgb 10.2(L) 13.8 - 17.2 g/dl HISTORICAL RESULTS Hct 32.1(L) 40.7 - 50.3 % HISTORICAL RESULTS MCV 87.9 80.0 - 97.6 fl HISTORICAL RESULTS MCH 27.9 26.7 - 33.7 pg HISTORICAL RESULTS MCHC 31.7(L) 32.7 - 35.5 g/dl HISTORICAL RESULTS Rdw 15.4(H) 11.8 - 14.6 % HISTORICAL RESULTS Platelets 487(H) 140 - 440 K/cumm HISTORICAL RESULTS MPV 7.2 6.8 - 10.4 fl HISTORICAL RESULTS Neutrophils 77.5(H) 38.7 - 74.5 % HISTORICAL RESULTS Lymphocytes 9.2(L) 20.0 - 54.3 % HISTORICAL RESULTS Monos 12.6 4.3 - 13.5 % HISTORICAL RESULTS Eosinophils 0.6 0.0 - 6.0 % HISTORICAL RESULTS Basophils 0.1 0.0 - 3.0 % HISTORICAL RESULTS Neutrophils, abs 10.2(H) 1.8 - 6.6 K/cumm HISTORICAL RESULTS Lymphocytes, abs 1.2 1.2 - 3.3 K/cumm HISTORICAL RESULTS Monocytes, absolute 1.7(H) 0.2 - 1.2 K/cumm HISTORICAL RESULTS Eosinophils, abs 0.1 0.0 - 0.5 K/cumm HISTORICAL RESULTS Basophils, abs 0.0 0.0 - 0.2 K/cumm HISTORICAL RESULTS Blood specimen (specimen) 07/01/2015 5:34 AM CELL ASSEMBLY PINNER Lex Burnett MD LAB BLOOD ORDERABLES Final Resul t HISTORICAL RESULTS * (ABNORMAL) Blood B-type natriuretic peptide (BNP) (07/01/2015 5:34 AM CELL ASSEMBLY PINNER) BNP 327(H) 0 - 100 pg/ml HISTORICAL RESULTS Blood specimen (specimen) 07/01/2015 5:34 AM CELL ASSEMBLY PINNER Lex Burnett MD LAB BLOOD ORDERABLES Final Resul t HISTORICAL RESULTS * OUTSIDE ED BODY CT MR CONSULT (07/01/2015 4:23 AM CELL ASSEMBLY PINNER) Anatomical Region Laterality Modality N/A Computed Tomogra phy 07/01/2015 4:23 AM CELL ASSEMBLY PINNER Narrative 07/01/2015 10:56 PM CELL ASSEMBLY PINNER JARRTET LUI M.D. MAURO MILLER M.D. FINAL REPORT The radiology attending physician has personally reviewed this study, and has reviewed and/or edited this written report and agrees with it. ACC# ??Date Time ??Exam [id number] Jul 01, 2015 04:23:00 [id number] ED Consult Body CT/MR EXAMINATION: ?CHANGE CONSULT ON OUTSIDE IMAGES TO REFERENCE IMAGES IMPRESSION: ?This study was initially nominated as a consult on outside images via [employer]. However, a consult was not performed because study should have been nominated as reference for comparison with more recent study done at [facility]. Accordingly, there will be no separate report of this study generated by a [facility] Radiologist. This change in examination status was confirmed with Dr. Burnett by Dr. Miller at 4:50 a.m. on 07/01/2015. Requested By: Dictated By: ?? MAURO MILLER M.D. ??on Jul 01 2015 ??4:53A This document has been electronically signed by: JARRETT LUI M.D. on Jul 01 2015 10:55P [id number] Procedure Note Provider, MD Dee - 11/28/2016 Navid CRUZ M.D. FINAL REPORT The radiology attending physician has personally reviewed this study, and has reviewed and/or edited this written report and agrees with it. ACC# Date Time Exam [id number] Jul 01, 2015 04:23:00 [id number] ED Consult Body CT/MR EXAMINATION: CHANGE CONSULT ON OUTSIDE IMAGES TO REFERENCE IMAGES IMPRESSION: This study was initially nominated as a consult on outside images via [employer]. However, a consult was not performed because study should have been nominated as reference for comparison with more recent study done at [facility]. Accordingly, there will be no separate report of this study generated by a [facility] Radiologist. This change in examination status was confirmed with Dr. Burnett by Dr. Miller at 4:50 a.m. on 07/01/2015. Requested By: Dictated By: MAURO MILLER M.D. on Jul 01 2015 4:53A This document has been electronically signed by: JARRETT LUI M.D. on Jul 01 2015 10:55P [id number] us Historical Provider MD YO CT PROCEDURES Final R esult * OUTSIDE ED PLAIN FILM REFERENCE (07/01/2015 4:23 AM CELL ASSEMBLY PINNER) Anatomical Region Laterality Modality N/A Radiographic Ary ging 07/01/2015 4:23 AM CELL ASSEMBLY PINNER Narrative 07/01/2015 5:51 PM CELL ASSEMBLY PINNER OUTSIDE IMAGES NANNY CAREGIVER, FINAL REPORT ACC# ??Date Time ??Exam [id number] Jul 01, 2015 04:23:[address] [place] [address] ED Reference Plain Film EXAMINATION: ? Images For Reference Purposes Only IMPRESSION: ? These images are for Reference purposes only and have not been reviewed by [facility] Radiology. ??There will be no report generated by a [facility] Radiologist. Requested By: Dictated By: ?? OUTSIDE IMAGES NANNY CAREGIVER, ?? on Jul 01 2015 ??5:51P This document has been electronically signed by: OUTSIDE IMAGES NANNY CAREGIVER, ??on Jul 01 2015 ??5:51P [id number] Procedure Note Provider, Dee, - 11/28/2016 OUTSIDE IMAGES NANNY CAREGIVER, FINAL REPORT ACC# Date Time Exam [id number] Jul 01, 2015 04:23:00 [id number] ED Reference Plain Film EXAMINATION: Images For Reference Purposes Only IMPRESSION: These images are for Reference purposes only and have not been reviewed by [facility] Radiology. There will be no report generated by a [facility] Radiologist. Requested By: Dictated By: OUTSIDE IMAGES NANNY CAREGIVER, on Jul 01 2015 5:51P This document has been electronically signed by: OUTSIDE IMAGES NANNY CAREGIVER, on Jul 01 2015 5:51P [id number] us Historical Provider MD YO XR PROCEDURES Final R esult * OUTSIDE ED BODY CT MR CONSULT (07/01/2015 4:23 AM CELL ASSEMBLY PINNER) Anatomical Region Laterality Modality N/A Computed Tomogra phy 07/01/2015 4:23 AM CELL ASSEMBLY PINNER Narrative 07/01/2015 10:56 PM CELL ASSEMBLY PINNER JARRETT LUI M.D. MAURO MILLER M.D. FINAL REPORT The radiology attending physician has personally reviewed this study, and has reviewed and/or edited this written report and agrees with it. ACC# ??Date Time ??Exam [id number] Jul 01, 2015 04:23:00 [id number] ED Consult Body CT/MR EXAMINATION: ?? RADIOLOGY CONSULTATION ON OUTSIDE IMAGING STUDY STUDY INITIALLY PERFORMED: ??06/30/2015 at [facility]. TYPE OF STUDY: Multiple CT images of the chest with intravenous contrast are provided at the time of this interpretation. The protocol was adequate to address the clinical question. The outside final report was not available at the time of this second opinion interpretation. TYPE OF CONSULTATION: Consult on outside imaging study with images submitted through [employer] DATE OF CONSULTATION: 07/01/2015. HISTORY: ??74-year-old man with recent spine hardware revision complicated by infection with acute shortness of breath and extensive pulmonary embolism COMPARISON: 06/23/2015 FINDINGS: When compared to the prior CT from 06/23/2015, there is increased clot burden with pulmonary emboli visualized in all segmental arteries bilaterally. There is new enlargement of the right heart. There are increased small bilateral pleural effusions, left greater than right, with dependent bibasilar atelectasis. Otherwise the lungs are clear. No pneumothorax. There are calcified mediastinal and lymph nodes and calcified granuloma in the right upper lobe. There is no suspicious pulmonary nodule or mass. Coronary artery calcifications are noted. There is no lymphadenopathy in the chest. ??The spleen is surgically absent. There are dependent stones or sludge in the gallbladder. There are old healed left rib fractures. Posterior instrumented fusion of the lumbar spine is partially visualized. IMPRESSION: ?? Extensive bilateral acute pulmonary embolism with increased clot burden from the prior CT 06/23/2015 and new right heart enlargement suggesting right heart strain. Findings were discussed with Dr. Burnett by Dr. Miller at 4:50 am on 07/01/2015. The findings, conclusions and recommendations within this report do not replace the initial findings, conclusions ??and recommendations made at the facility where the study was performed based upon the imaging and clinical condition at that time. ??Comparison with the prior report and clinical history is necessary. ??The provided images may or may not represent the [employer]vik source data set and thus may contain changes that may lower the accuracy of this second-opinion interpretation. Requested By: Dictated By: ?? MAURO MILLER M.D. ??on Jul 01 2015 ??4:52A This document has been electronically signed by: JARRETT LUI M.D. on Jul 01 2015 10:55P [id number] Procedure Note Provider, MD Dee - 11/28/2016 JARRETT LUI M.D. MAURO MILLER M.D. FINAL REPORT The radiology attending physician has personally reviewed this study, and has reviewed and/or edited this written report and agrees with it. ACC# Date Time Exam [id number] Jul 01, 2015 04:23:00 [id number] ED Consult Body CT/MR EXAMINATION: RADIOLOGY CONSULTATION ON OUTSIDE IMAGING STUDY STUDY INITIALLY PERFORMED: 06/30/2015 at [facility]. TYPE OF STUDY: Multiple CT images of the chest with intravenous contrast are provided at the time of this interpretation. The protocol was adequate to address the clinical question. The outside final report was not available at the time of this second opinion interpretation. TYPE OF CONSULTATION: Consult on outside imaging study with images submitted through [employer] DATE OF CONSULTATION: 07/01/2015. HISTORY: 74-year-old man with recent spine hardware revision complicated by infection with acute shortness of breath and extensive pulmonary embolism COMPARISON: 06/23/2015 FINDINGS: When compared to the prior CT from 06/23/2015, there is increased clot burden with pulmonary emboli visualized in all segmental arteries bilaterally. There is new enlargement of the right heart. There are increased small bilateral pleural effusions, left greater than right, with dependent bibasilar atelectasis. Otherwise the lungs are clear. No pneumothorax. There are calcified mediastinal and lymph nodes and calcified granuloma in the right upper lobe. There is no suspicious pulmonary nodule or mass. Coronary artery calcifications are noted. There is no lymphadenopathy in the chest. The spleen is surgically absent. There are dependent stones or sludge in the gallbladder. There are old healed left rib fractures. Posterior instrumented fusion of the lumbar spine is partially visualized. IMPRESSION: Extensive bilateral acute pulmonary embolism with increased clot burden from the prior CT 06/23/2015 and new right heart enlargement suggesting right heart strain. Findings were discussed with Dr. Burnett by Dr. Miller at 4:50 am on 07/01/2015. The findings, conclusions and recommendations within this report do not replace the initial findings, conclusions and recommendations made at the facility where the study was performed based upon the imaging and clinical condition at that time. Comparison with the prior report and clinical history is necessary. The provided images may or may not represent the anvik source data set and thus may contain changes that may lower the accuracy of this second-opinion interpretation. Requested By: Dictated By: MAURO MILLER M.D. on Jul 01 2015 4:52A This document has been electronically signed by: JARRETT LUI M.D. on Jul 01 2015 10:55P [id number] us Historical Provider MD YO CT PROCEDURES Final R esult * (ABNORMAL) Serum lipid panel (07/01/2015 3:51 AM CELL ASSEMBLY PINNER) Cholesterol 118 0 - 200 mg/dl HISTORICAL RESULTS Comment: Interpretive Data Desirable: ?<200 mg/dL Borderline high: ??200-239 mg/dL High: ? >240 mg/dL Literature Reference: National Cholesterol Education Program (NCEP) Expert Panel on Detection, Evaluation, and Treatment of High Blood Cholesterol in Adults (Adult Treatment Panel III). ??Circulation 2004; 110:227. Current interpretive data was last revised on 2005. Triglycerides 117 0 - 150 mg/dl HISTORICAL RESULTS Comment: Interpretive Data Desirable: ? < 150 mg/dL Borderline High: ? 150 - 199 mg/dL High: ?> 200 mg/dL Literature Reference: See Cholesterol Current interpretive data was last revised on 07. HDL 27(L) 40 - 199 mg/dl HISTORICAL RESULTS Comment: Interpretive Data Less than 40 mg/dL - low; A major risk factor for heart disease. Greater than or equal to 60 mg/dL - High; ??considered protective of heart disease. Literature Reference: See Cholesterol Current interpretive data was last revised on 2008. LDL 68 0 - 129 mg/dl HISTORICAL RESULTS Comment: Interpretive Data Optimal: ? < 100 mg/dL Near Optimal: ?100 - 129 mg/dL Borderline High: ?? 130 - 159 mg/dL High: ?> 160 mg/dL Literature Reference: See Cholesterol Current interpretive data was last revised on 07. Non-HDL cholesterol, calculated 91 mg/dl HISTORICAL RESULTS Comment: Interpretive Data When triglycerides are >200 mg/dL, non-HDL C is a secondary target of therapy, with a goal 30 mg/dL higher than the identified LDL-C goal. Reference: ??See Cholesterol Reference. Current interpretive data was last revised 2012. Serum 07/01/2015 3:51 AM CELL ASSEMBLY PINNER us Lex Burnett MD LAB BLOOD ORDERABLES Final Resul t Performing Organization Address [facility] de Phone Number HISTORICAL RESULTS * Plasma partial thromboplastin time (PTT) (07/01/2015 3:51 AM CELL ASSEMBLY PINNER) APTT 29.4 25.0 - 37.0 seconds HISTORICAL RESULTS Comment: Interpretive Data Therapeutic heparin range:60.0 - 94.0 sec based on correlation with therapeutic heparin activity range of 0.3 -0.7 Units/mL. Current interpretive data was last revised on 2011. Plasma 07/01/2015 3:51 AM CELL ASSEMBLY PINNER us Lex Burnett MD LAB BLOOD ORDERABLES Final Resul t Performing Organization Address [facility] Co de Phone Number HISTORICAL RESULTS * (ABNORMAL) Plasma basic metabolic panel (07/01/2015 3:51 AM CELL ASSEMBLY PINNER) K, pl 4.1 3.3 - 4.9 mmol/L HISTORICAL RESULTS Sodium 140 135 - 145 mmol/L HISTORICAL RESULTS Chloride 105 97 - 110 mmol/L HISTORICAL RESULTS CO2 25 22 - 32 mmol/L HISTORICAL RESULTS A. gap 10 0 - 16 mmol/L HISTORICAL RESULTS Glucose 180 70 - 199 mg/dl HISTORICAL RESULTS BUN 15 8 - 25 mg/dl HISTORICAL RESULTS Creatinine 1.20 0.70 - 1.30 mg/dl HISTORICAL RESULTS Calcium 8.4(L) 8.6 - 10.3 mg/dl HISTORICAL RESULTS Plasma 07/01/2015 3:51 AM CELL ASSEMBLY PINNER Lex Burnett MD LAB BLOOD ORDERABLES Final Resul t Performing Organization Address [facility] de Phone Number HISTORICAL RESULTS * (ABNORMAL) Serum troponin I (07/01/2015 3:51 AM CELL ASSEMBLY PINNER) Troponin I 0.75(C) 0.00 - 0.03 ng/ml HISTORICAL RESULTS Comment: Critical result called to and read back by catrachito robledo) on 07/01/2015 04:40:07 CELL ASSEMBLY PINNER to . Interpretive Data Serial determinations are recommended for the diagnosis of myocardial infarction (Third Lutz Definition of Myocardial Infarction. ??J Am Omid Cardiol 2012;60:1581-98). Current interpretive data was last revised on 13. Serum 07/01/2015 3:51 AM CELL ASSEMBLY PINNER Lex Burnett MD LAB BLOOD ORDERABLES Final Resul t Performing Organization Address [facility] de Phone Number HISTORICAL RESULTS * (ABNORMAL) Plasma prothrombin time (PT) (07/01/2015 3:51 AM CELL ASSEMBLY PINNER) Prothrombin time (PT) 13.8(H) 9.2 - 13.0 seconds HISTORICAL RESULTS INR 1.27(H) 0.90 - 1.20 HISTORIC AL RESULTS Comment: Interpretive Data Inpatient therapeutic ranges* Atrial fibrillation ?2.0-3.0 INR Venous thrombo-embolism ?2.0-3.0 INR Bioprosthetic heart valve ?* Mechanical heart valve, bileaflet or tilting disk,aortic position ? 2.0-3.0 INR All other,or bileaflet or tilting disk, in mitral position ? 2.5-3.5 INR *See the pharmacy resource directory (PHRED) for an updated copy of the Tool Book at [email or web address] Current Interpretive Data was last revised 2011. Plasma 07/01/2015 3:51 AM CELL ASSEMBLY PINNER Lex Burnett MD LAB BLOOD ORDERABLES Final Resul t Performing Organization Address [facility] Co de Phone Number HISTORICAL RESULTS * Blood ABO, Rh, indirect ab screen (07/01/2015 3:51 AM CELL ASSEMBLY PINNER) ABO, Rho(D) A Positive HISTORI CAMILA RESULTS Sanju, indirect Negative HISTORICAL RESULTS Blood specimen (specimen) 07/01/2015 3:51 AM CELL ASSEMBLY PINNER Lex Burnett MD LAB BLOOD ORDERABLES Final Resul t Performing Organization Address [facility] Co de Phone Number HISTORICAL RESULTS * All Microbiology Report Section (07/01/2015 12:00 AM CELL ASSEMBLY PINNER) 07/01/2015 Narrative HISTORICAL RESULTS - 07/02/2015 3:57 PM CELL ASSEMBLY PINNER ? [facility] ?[address] [facility] [address] ?[place], [place] [address] ? Patient Name: ??BERNIE CAREY ? Med Rec Number: [id number] ? Fin Number: ?[id number] ? Date: ?1940 ? Sex/Age: ? Male 74 years ? Admit Date: ?07/01/2015 ? Discharge Date: ? Doctor: ?Medicine , ? Facility: ?[facility] ? Location: ?[id number] ?* Abnormal ??A Alert ??f Footnote ??^ Corrected ??L Low ??H High ?i Interp Data ??@ Ref Lab ? Chart Type:Cumulative ?* * * * MICROBIOLOGY - MISCELLANEOUS * * * * ?PROCEDURE: MRSA Surveillance Culture ? SOURCE: Nasal ? COLLECTED: 11//15 ??0912 ?BODY SITE: ? STARTED: //15 ??1055 ? FREE TEXT SOURCE: ? FINAL REPORT ? REPORTED: 07/02/15 1243 ? Negative ?* * * ??Interpretive Results ??* * * ? (1)This test is for Infection Prevention surveillance; no charge to ? the patient. ? us Historical Provider LAB MICROBIOLOGY - GENERA L ORDERABLES Final Result HISTORICAL RESULTS documented in this encounter Visit Diagnoses Diagnosis Other pulmonary embolism with acute cor pulmonale (HCC) Acute respiratory failure with hypoxia (CMS/HCC) (HCC) Type 2 diabetes mellitus with hyperglycemia (CMS/HCC) (HCC) Dependence on supplemental oxygen Body mass index (BMI) of 40.0-44.9 in adult (HCC) Osteomyelitis of vertebra of lumbar region (HCC) Essential (primary) hypertension Unspecified essential hypertension Hyperlipidemia Other and unspecified hyperlipidemia Other specified postprocedural state Atrial fibrillation (CMS/HCC) (HCC) Atrial fibrillation Major depressive disorder, single episode Major depressive disorder, single episode, unspecified Enlarged prostate without lower urinary tract symptoms (luts) 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
--- OUTSIDE RECORDS SUMMARY | 2024-07-24 00:12 | XMS_ITS | Encounter Summary ---
Author Organization [facility] Facility Care Team Providers Care Engineering Clerk Name Role Phone Unavailable Primary Care Provider Unavailabl e Encounter Details Date Type Department Care Team (Late st Contact Info) Description 11/14/2015 - 11/14/2015 11:59 PM CDT Hospital En[facility] Bailey MD [address] [facility] [address] [place] [address] Osteomyelitis of vertebra (CMS/HCC); Arthrodesis status Social History Tobacco Use Types Packs/Day Years Used Date Smoking Tobacco: Never Assessed Sex and Gender Information Value Date Recorded Sex Assigned at Not on file 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 FINAL REPORT ACC# ??Date Time ??Exam [id number] Nov 14, 2015 11:30:00 [id number] Spine Lumbar 2 or 3 views EXAMINATION: ?Lumbar spine 2 or 3 views HISTORY: ??L2-L3 and spondylodiscitis and pseudoarthrosis FINDINGS: ?? AP and lateral views of the lumbar spine are submitted for interpretation with comparison to a prior study dated 08/01/2015. There has been revision posterior decompression and instrumented posterior fusion extending from L1 through L4 with L2 and L3 corpectomies and interbody bone grafting. ??Diffuse idiopathic skeletal hyperostosis is present. ??An inferior vena cava filter projects anterior to L3. There are atherosclerotic calcifications of the abdominal aorta. Hernia mesh repair clips are present over the left iliac bone. IMPRESSION: ?? Unchanged revision posterior decompression and instrumented posterior fusion from L1 through L4 with L2 and L3 corpectomies and bone grafting. Requested By: JANE MARINELLI M.D. Dictated By: ?? PEMA MACK M.D. ??on Nov 14 2015 12:21P This document has been electronically signed by: PEMA MACK M.D. on Nov 14 2015 12:21P [id number] Procedure Note Provider, MD Dee - 11/28/2016 PEMA MACK M.D. FINAL REPORT ACC# Date Time Exam [id number] Nov 14, 2015 11:30:00 [id number] Spine Lumbar 2 or 3 views EXAMINATION: Lumbar spine 2 or 3 views HISTORY: L2-L3 and spondylodiscitis and pseudoarthrosis FINDINGS: AP and lateral views of the lumbar spine are submitted for interpretation with comparison to a prior study dated 08/01/2015. There has been revision posterior decompression and instrumented posterior fusion extending from L1 through L4 with L2 and L3 corpectomies and interbody bone grafting. Diffuse idiopathic skeletal hyperostosis is present. An inferior vena cava filter projects anterior to L3. There are atherosclerotic calcifications of the abdominal aorta. Hernia mesh repair clips are present over the left iliac bone. IMPRESSION: Unchanged revision posterior decompression and instrumented posterior fusion from L1 through L4 with L2 and L3 corpectomies and bone grafting. Requested By: JANE MARINELLI M.D. Dictated By: PEMA MACK M.D. on Nov 14 2015 12:21P This document has been electronically signed by: PEMA MACK M.D. on Nov 14 2015 12:21P [id number] Historical Provider MD YO XR PROCEDURES Final R esult documented in this encounter Visit Diagnoses Diagnosis Osteomyelitis of vertebra (HCC) Arthrodesis status documented in this encounter
--- OUTSIDE RECORDS SUMMARY | 2024-07-24 00:13 | XMS_ITS | Encounter Summary ---
Author Organization [facility] Facility Care Team Providers Care Bundle Clerk Name Role Phone Unavailable Primary Care Provider Unavailabl e Encounter Details Date Type Department Care Team (Late st Contact Info) Description 12/27/2007 8:27 PM CDT - 12/28/2007 6:53 PM CDT Hospital Encounter [facility] Ashvin León MD PhD [address] [place] [address] Traumatic pneumothorax; Closed fracture of four ribs; Pain in joint, shoulder region; Essential hypertension; Open wound of elbow; Morbid obesity (HCC); Constipation; Osteoarthrosis; Hypertrophy of prostate without urinary obstruction and other lower urinary tract symptoms (LUTS); Pure hypercholesterolemia ; Accidental fall from ladder; Place of occurrence, home Social History Tobacco Use Types Packs/Day Years Used Date Smoking Tobacco: Never Assessed Sex and Gender Information Value Date Recorded Sex Assigned at Not on file Legal 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 Gender Identity Not on file Sexual Orientation Not on file documented as of this encounter Plan of Treatment Not on file documented as of this encounter Visit Diagnoses Diagnosis Traumatic pneumothorax Traumatic pneumothorax without mention of open wound into thorax Closed fracture of four ribs Pain in joint, shoulder region Essential hypertension Unspecified essential hypertension Open wound of elbow Open wound of elbow, without mention of complication Morbid obesity (HCC) Morbid obesity Constipation Unspecified constipation Osteoarthrosis Osteoarthrosis, unspecified whether generalized or localized, unspecified site Hypertrophy of prostate without urinary obstruction and other lower urinary tract symptoms (LUTS) Pure hypercholesterolemia Accidental fall from ladder Place of occurrence, home documented in this encounter
--- OUTSIDE RECORDS SUMMARY | 2024-07-24 00:13 | XMS_ITS | Encounter Summary ---
Author Organization [facility] Healthcare Address [address] [place] [address] Care Team Providers Care State Wildlife Officer Name Role Phone Unavailable Primary Care Provider Unavailabl e Encounter Details Date Type Department Care Team (Late st Contact Info) Description 12/28/2013 12:00 PM CDT Hospital Encounter [facility] Christopher Di[place] [address] Low back pain; Pain in soft tissues of limb Social History Tobacco Use Types Packs/Day Years Used Date Smoking Tobacco: Never Assessed Sex and Gender Information Value Date Recorded Sex Assigned at Not on file 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 ?? Recommend surgical consultation. THIS IS AN ELECTRONICALLY VERIFIED REPORT 12/28/2013 2:50 PM: ??Sandip Dean M.D. Sandip Dean M.D. DS:ds 02:50 PM 02:50 PM [facility] [EOD] Narrative 12/28/2013 2:54 PM CDT EXAMINATION: ??Lumbar spine MRI without contrast HISTORY: ??Back pain radiating into the buttocks for several months TECHNIQUE: ??Sagittal T2, T1, STIR, and axial T1 and T2-weighted images and spine were performed without contrast. COMPARISON: ??None FINDINGS: ??5 lumbar type vertebral bodies are assumed for the purposes of this dictation. ??There is straightening of the lumbar curvature and retrolisthesis of L1 and L2. ??There is mild height loss of L1 and L2. ??Schmorl's node concavity in the inferior L2 vertebral body endplate. ??Marrow signal is notable for endplate degenerative marrow changes. The distal cord and conus medullaris have a normal caliber and morphology. ?? The conus terminates at the L1 level. ??No abnormal cord signal is noted. ?? There is no mass in the spinal canal or paravertebral soft tissues. Multilevel degenerative change identified with diffuse disc degenerative desiccation and narrowing most prominent at the L1-2 and L2-3 . Findings on a level by level basis: T11-T12: Marginal osteophytes, bulging, and facet arthropathy without spinal/foraminal stenosis. T12-L1: Disc bulging, marginal osteophytes and facet arthropathy results in mild spinal and foraminal stenosis. L1-2:Moderate facet arthropathy, ligament flavum thickening, disc bulging with right paracentral osteophyte and disc protruding into the spinal canal results in moderate to severe spinal stenosis and foraminal stenosis. L2-3: Moderate facet arthropathy, ligament flavum thickening with bulging and moderate to large right subarticular protrusion results in severe spinal stenosis and right foraminal stenosis. ??Moderate to severe left foraminal stenosis. ??Point of nerve roots above this level as a result of stenosis. L3-4: Facet arthropathy without significant spinal or left foraminal stenosis, moderate right, L4-L5: ??Moderate facet arthropathy and mild bulging with mild spinal and foraminal narrowing. L5-S1: ??Disc bulging and facet arthropathy resulting in moderate foraminal and mild spinal stenosis. Procedure Note Provider, MD Dee - 12/19/2020 EXAMINATION: Lumbar spine MRI without contrast HISTORY: Back pain radiating into the buttocks for several months TECHNIQUE: Sagittal T2, T1, STIR, and axial T1 and T2-weighted images and spine were performed without contrast. COMPARISON: None FINDINGS: 5 lumbar type vertebral bodies are assumed for the purposes ofthis dictation. There is straightening of the lumbar curvature andretrolisthesis of L1 and L2. There is mild height loss of L1 and L2. Schmorl's node concavity in the inferior L2 vertebral body endplate. Marrow signal is notable for endplate degenerative marrow changes. The distal cord and conus medullaris have a normal caliber and morphology. The conus terminates at the L1 level. No abnormal cord signal is noted. There is no mass in the spinal canal or paravertebral soft tissues. Multilevel degenerative change identified with diffuse disc degenerative desiccation and narrowing most prominent at the L1-2 and L2-3 . Findings on a level by level basis: T11-T12: Marginal osteophytes, bulging, and facet arthropathy without spinal/foraminal stenosis. T12-L1: Disc bulging, marginal osteophytes and facet arthropathy resultsin mild spinal and foraminal stenosis. L1-2:Moderate facet arthropathy, ligament flavum thickening, disc bulgingwith right paracentral osteophyte and disc protruding into the spinal canalresults in moderate to severe spinal stenosis and foraminal stenosis. L2-3: Moderate facet arthropathy, ligament flavum thickening with bulgingand moderate to large right subarticular protrusion results in severe spinal stenosis and right foraminal stenosis. Moderate to severe left foraminal stenosis. Point of nerve roots above this level as a result ofstenosis. L3-4: Facet arthropathy without significant spinal or left foraminalstenosis, moderate right, L4-L5: Moderate facet arthropathy and mild bulging with mild spinal and foraminal narrowing. L5-S1: Disc bulging and facet arthropathy resulting in moderate foraminaland mild spinal stenosis. IMPRESSION: Severe degenerative changes at the L1-2 and L2-3 levels. Recommend surgical consultation. THIS IS AN ELECTRONICALLY VERIFIED REPORT 12/28/2013 2:50 PM: Sandip Dean M.D. Sandip Dean M.D. DS:ds 02:50 PM 02:50 PM BM [EOD] Christopher Diop MD IMG MRI PROCEDURES Final R esult documented in this encounter Visit Diagnoses Diagnosis Low back pain Lumbago Pain in soft tissues of limb documented in this encounter
--- OUTSIDE RECORDS SUMMARY | 2024-07-24 00:13 | XMS_ITS | Encounter Summary ---
Author Organization [facility] Healthcare Address [address] [place] [address] Care Team Providers Care Marshmallow Machine Operator Name Role Phone Unavailable Primary Care Provider Unavailabl e Encounter Details Date Type Department Care Team ([facility] st Contact Info) Description 09/26/2010 2:12 PM CLEARANCE CUTTER - 09/26/2010 11:59 PM CLEARANCE CUTTER Hospital Encounter [facility] Neoplasm by body site Social History Tobacco Use Types Packs/Day Years Used Date Smoking Tobacco: Never Assessed Sex and Gender Information Value Date Recorded Sex Assigned at Not on file Legal 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
--- OUTSIDE RECORDS SUMMARY | 2024-07-24 00:13 | XMS_ITS | Encounter Summary ---
Author Organization [facility] Facility Care Team Providers Care Publication Manager Name Role Phone Unavailable Primary Care Provider Unavailabl e Encounter Details Date Type Department Care Team (Late st Contact Info) Description 12/17/2009 - 12/17/2009 11:59 PM CDT Hospital Encounter [facility] Nik Hernandez MD [address] [facility] [address] [place] [address] Disease of pancreas Social History Tobacco Use Types Packs/Day Years Used Date Smoking Tobacco: Never Assessed Sex and Gender Information Value Date Recorded Sex Assigned at Not on file 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
--- OUTSIDE RECORDS SUMMARY | 2024-07-24 00:13 | XMS_ITS | Encounter Summary ---
Author Organization [facility] Facility Care Team Providers Care Stereo Operator Name Role Phone Unavailable Primary Care Provider Unavailabl e Encounter Details Date Type Department Care Team (Latest Contact Info) Description 05/17/2014 10:08 AM CDT - 05/17/2014 11:59 PM CDT Hospital Encounter [facility] Anna Wilson MD [address] [place] [address] Postlaminectomy syndrome, lumbar region; Vitamin D deficiency; Degeneration of lumbar or lumbosacral intervertebral disc; Arthrodesis status Social History Tobacco Use Types Packs/Day Years Used Date Smoking Tobacco: Never Assessed Sex and Gender Information Value Date Recorded Sex Assigned at Not on file 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 Gender Identity Not on file Sexual Orientation Not on file documented as of this encounter Plan of Treatment Not on file documented as of this encounter Procedures Procedure Name Priority Date/Time Associated Diagnosis Comments SERUM 25-HYDROXYCHOLECALCI FEROL (VITAMIN D) Routine 05/17/2014 10:47 AM CDT XR SPINE LUMBAR 2 OR 3 VIEWS Routine 05/17/2014 10:36 AM CDT DISCHARGE LABORATORY CUMULATIVE REPORT 05/17/2014 documented in this encounter Results * Serum 25-hydroxycholecalciferol (vitamin D) (05/17/2014 10:47 AM CDT) 25-OH Vit D 35 30 - 100 ng/ml HISTORICAL RESULTS Serum 05/17/2014 10:4 7 AM CDT Anna Wilson MD LAB BLOOD ORDERABLES Final R esult HISTORICAL RESULTS * XR Spine Lumbar 2 Or 3 View (05/17/2014 10:36 AM CDT) Anatomical Region Laterality Modality Spine N/A Radiographic Ary ging 05/17/2014 10:3 6 AM CDT Narrative 05/17/2014 3:20 PM CDT Lumbar spine, three views: HISTORY: Postlaminectomy syndrome. A three view examination of the lumbar spine is compared to 03/09/2014. The patient has undergone posterior fusion from L1 through L3 with paired transpedicular screws entering L1, L2, and L3. ??Stable retrolisthesis of L2 on L3 and L1 on L2 are identified. ??The positioning of the hardware remains stable. ??No new lucencies are identified. ??Large exuberant spurs are noted from T12 through L4. ?? Degenerative disc changes are present. ??Facet osteoarthritis is present from L3 through S1 bilaterally. ??Again noted is the lucency around the left L3 pedicular screw that is unchanged from the prior study. SUMMARY: 1. Stable postoperative changes and severe degenerative spine changes as well as stable lucency about the left L3 screw. ?? JE/mvb Radiologist: AGNES CHILEL MD, M.D. ?? Attending: ??ANNA WILSON M.D. Requesting: ANNA WILSON M.D. Requesting Fax: ?? Requesting ID: [id number] Attending Fax: ?? Attending ID: ?? [id number] Completed Time: ?? 05/17/2014 10:36 AM Dictated Time: ?05/17/2014 10:49 AM Transcribed Time: 05/17/2014 2:37 PM Signed by: ?AGNES CHILEL MD ?Alvaro on 05/17/2014 3:20 PM Report To 1 ID: Report To 1 Name: , Report To 1 FAX: Report To 2 ID: Report To 2 Name: , Report To 2 FAX: Report To 3 ID: Report To 3 Name: , Report To 3 FAX: NextGen Order #: Procedure Note Provider, MD Dee - 11/28/2016 Lumbar spine, three views: HISTORY: Postlaminectomy syndrome. A three view examination of the lumbar spine is compared to 03/09/2014. The patient has undergone posterior fusion from L1 through L3 with paired transpedicular screws entering L1, L2, and L3. Stable retrolisthesis of L2 on L3 and L1 on L2 are identified. The positioning of the hardware remains stable. No new lucencies are identified. Large exuberant spurs are noted from T12 through L4. Degenerative disc changes are present. Facet osteoarthritis is present from L3 through S1 bilaterally. Again noted is the lucency around the left L3 pedicular screw that is unchanged from the prior study. SUMMARY: 1. Stable postoperative changes and severe degenerative spine changes as well as stable lucency about the left L3 screw. JE/mvb Radiologist: GETACHEW GIL, AGNES Hurtado M.D. Attending: ANNA WILSON M.D. Requesting: ANNA WILSON M.D. Requesting Requesting ID: [id number] Attending Attending ID: [id number] Completed Time: 05/17/2014 10:36 AM Dictated Time: 05/17/2014 10:49 AM Transcribed Time: 05/17/2014 2:37 PM Signed by: AGNES CHILEL MD, M.D. on 05/17/2014 3:20 PM Report To 1 ID: Report To 1 Name: , Report To 1 FAX: Report To 2 ID: Report To 2 Name: , Report To 2 FAX: Report To 3 ID: Report To 3 Name: , Report To 3 FAX: NextGen Order #: Historical Provider MD YO XR PROCEDURES Final R esult * DISCHARGE LABORATORY CUMULATIVE REPORT (05/17/2014) Narrative 05/17/2014 Ordered by an unspecified provider. 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
--- OUTSIDE RECORDS SUMMARY | 2024-07-24 00:13 | XMS_ITS | Encounter Summary ---
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; Other specified pre-operative examination; Pre-operative cardiovascular examination Social History Tobacco Use Types Packs/Day Years Used Date Smoking Tobacco: Never Assessed Sex and Gender Information Value Date Recorded Sex Assigned at Not on file Legal Sex Male 3:18 AM BREAD AND PASTRY BAKER Gender Identity Not on file Sexual Orientation Not on file documented as of this encounter Plan of Treatment Not on file documented as of this encounter Visit Diagnoses Diagnosis 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
--- OUTSIDE RECORDS SUMMARY | 2024-07-24 00:13 | XMS_ITS | Encounter Summary ---
Author Organization [facility] Facility Care Team Providers Care Rake Operator Name Role Phone Unavailable Primary Care Provider Unavailabl e Encounter Details Date Type Department Care Team (Latest Contact Info) Description 09/09/2010 - 09/09/2010 11:59 PM WAREHOUSE DISTRIBUTION SPECIALIST Hospital Encounter [facility] Nik Hernandez MD [address] [facility] [address] [place] [address] Encounter for fitting and adjustment of non-vascular catheter NEC; Other postprocedural states Social History Tobacco Use Types Packs/Day Years Used Date Smoking Tobacco: Never Assessed Sex and Gender Information Value Date Recorded Sex Assigned at Not on file Legal Sex Male 3:18 AM WAREHOUSE DISTRIBUTION SPECIALIST Gender Identity Not on file Sexual Orientation Not on file documented as of this encounter Plan of Treatment Not on file documented as of this encounter Visit Diagnoses Diagnosis Encounter for fitting and adjustment of non-vascular catheter NEC Other postprocedural states documented in this encounter
--- OUTSIDE RECORDS SUMMARY | 2024-07-24 00:13 | XMS_ITS | Encounter Summary ---
Author Organization [facility] Facility Care Team Providers Care Student Life Vice President Name Role Phone Unavailable Primary Care Provider Unavailabl e Encounter Details Date Type Department Care Team (Latest Contact Info) Description 07/04/2014 10:10 AM COLLAR FELLER - 07/04/2014 11:59 PM COLLAR FELLER Hospital Encounter [facility] CLINCONV Anna Wilson MD [address] [place] [id number] Arthrodesis status; Lumbosacral spondylosis without myelopathy; Degeneration of lumbar or lumbosacral intervertebral disc Social History Tobacco Use Types Packs/Day Years Used Date Smoking Tobacco: Never Assessed Sex and Gender Information Value Date Recorded Sex Assigned at Not on file Legal Sex Male 3:18 AM COLLAR FELLER Gender Identity Not on file Sexual Orientation Not on file documented as of this encounter Plan of Treatment Not on file documented as of this encounter Procedures Procedure Name Priority Date/Time Associated Diagnosis Comments XR SPINE LUMBAR 2 OR 3 VIEWS Routine 07/04/2014 10:50 AM COLLAR FELLER documented in this encounter Results * XR Spine Lumbar 2 Or 3 View (07/04/2014 10:50 AM COLLAR FELLER) Anatomical Region Laterality Modality Spine N/A Radiographic Ary ging 07/04/2014 10:5 0 AM COLLAR FELLER Narrative 07/04/2014 5:12 PM COLLAR FELLER Lumbar spine, three-view HISTORY: Postlaminectomy syndrome. TECHNIQUE: AP, lateral, coned-down lateral COMPARISON: 05/17/2014 FINDINGS: The patient has evidence of posterior fusion using pedicle screw and calista device at L1-L3. ??The appearance is unchanged compared with the previous examination of 05/17/2014. ??Evidence of severe bilateral facet osteoarthritis is seen at L3-L4, L4-L5 and L5-S1 disc levels. ?? Advanced disc degeneration is seen at L5-S1. SUMMARY: 1. Postoperative changes. WB/pab Radiologist: FRANK DEUTSCH MD, M.D. ?? Attending: ??ANNA WILSON M.D. Requesting: ANNA WILSON M.D. Requesting Fax: ?? Requesting ID: [id number] Attending Fax: ?? Attending ID: ?? [id number] Completed Time: ?? 07/04/2014 10:50 AM Dictated Time: ?07/04/2014 1:40 PM Transcribed Time: 07/04/2014 2:09 PM Signed by: ?FRANK DEUTSCH MD?Navid on 07/04/2014 5:12 PM Report To 1 ID: Report To 1 Name: , Report To 1 FAX: Report To 2 ID: Report To 2 Name: , Report To 2 FAX: Report To 3 ID: Report To 3 Name: , Report To 3 FAX: NextGen Order #: Procedure Note Provider, MD Dee - 11/28/2016 Lumbar spine, three-view HISTORY: Postlaminectomy syndrome. TECHNIQUE: AP, lateral, coned-down lateral COMPARISON: 05/17/2014 FINDINGS: The patient has evidence of posterior fusion using pedicle screw and calista device at L1-L3. The appearance is unchanged compared with the previous examination of 05/17/2014. Evidence of severe bilateral facet osteoarthritis is seen at L3-L4, L4-L5 and L5-S1 disc levels. Advanced disc degeneration is seen at L5-S1. SUMMARY: 1. Postoperative changes. WB/pab Radiologist: FRANK DEUTSCH MD, M.D. Attending: ANNA WILSON M.D. Requesting: ANNA WILSON M.D. Requesting Requesting ID: [id number] Attending Attending ID: [id number] Completed Time: 07/04/2014 10:50 AM Dictated Time: 07/04/2014 1:40 PM Transcribed Time: 07/04/2014 2:09 PM Signed by: FRANK DEUTSCH MD, M.D. 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
--- OUTSIDE RECORDS SUMMARY | 2024-07-24 00:13 | XMS_ITS | Encounter Summary ---
Author Organization [facility] Facility Care Team Providers Care Salesperson Burial Plots Name Role Phone Unavailable Primary Care Provider Unavailabl e Encounter Details Date Type Department Care Team (Late st Contact Info) Description 09/24/2010 - 09/24/2010 11:59 PM SPECIAL EVENTS COORDINATOR Hospital Encounter [facility] Collin Ramirez MD [facility] [place] [address] Encounter for fitting and adjustment of non-vascular catheter NEC Social History Tobacco Use Types Packs/Day Years Used Date Smoking Tobacco: Never Assessed Sex and Gender Information Value Date Recorded Sex Assigned at Not on file Legal Sex Male 3:18 AM SPECIAL EVENTS COORDINATOR Gender Identity Not on file Sexual Orientation Not on file documented as of this encounter Plan of Treatment Not on file documented as of this encounter Visit Diagnoses Diagnosis Encounter for fitting and adjustment of non-vascular catheter NEC documented in this encounter
--- OUTSIDE RECORDS SUMMARY | 2024-07-24 00:13 | XMS_ITS | Encounter Summary ---
Author Organization [facility] Healthcare Address [address] [place] [address] Care Team Providers Care Barrel Handler Name Role Phone Unavailable Primary Care Provider Unavailabl e Encounter Details Date Type Department Care Team (Latest Contact Info) Description 06/15/2015 9:17 AM JUICE SCALEMAN - 06/15/2015 11:59 PM JUICE SCALEMAN Hospital Encounter [facility] Anna Canas MD [address] [place] [address] Postlaminectomy syndrome, not elsewhere classified; Abnormal findings on diagnostic imaging of other parts of musculoskeletal system Social History Tobacco Use Types Packs/Day Years Used Date Smoking Tobacco: Never Assessed Sex and Gender Information Value Date Recorded Sex Assigned at Not on file Legal Sex Male 3:18 AM JUICE SCALEMAN Gender Identity Not on file Sexual Orientation Not on file documented as of this encounter Plan of Treatment Not on file documented as of this encounter Procedures Procedure Name Priority Date/Time Associated Diagnosis Comments LUMBAR SPINE COMPUTED TOMOGRAPHY (CT) Routine 06/15/2015 10:00 AM JUICE SCALEMAN documented in this encounter Results * LUMBAR SPINE COMPUTED TOMOGRAPHY (CT) (06/15/2015 10:00 AM JUICE SCALEMAN) Anatomical Region Laterality Modality N/A Computed Tomogra phy 06/15/2015 10:0 0 AM JUICE SCALEMAN Narrative 06/15/2015 4:42 PM [place] ??[id number] ??Acc#: ??[id number] DATE OF EXAM: ??Jun 15 2015 CLINICAL HISTORY: Post laminectomy syndrome. RESULT: Correlation with a CT post myelogram of the lumbar spine performed on 01/03/[address] [facility] is made. ??Since the prior exam the patient has undergone spinal fusion with posterior hardware extending from L1 to L3. ??Laminectomies had been performed at L2 and L3 bilaterally. ??The L1 and L2 disc space is fused. ??Significantly lucency is noted around the left pedicualr screw at L3 measuring up to 9mm in thickness. ??Partial fusion of the L3 and L4 disc space is noted. The inferior endplate of L2 and superior endplate of L3 are sclerotic with multiple cystic changes noted. ??Previously noted vacuum disc phenomenon seen on the prior study is not present at the current level. ??Findings are concerning for a destructive process at the L2-L3 disc space most consistent with an infectious etiology. ??Given the lucency around the left pedicular screw at L3, these findings likely also represent infection. Disc space narrowing is seen at L5-S1. ??Artifact from the fusion hardware makes evaluation of the central canal limited in the upper and mid lumbar region. IMPRESSION: 1. EVIDENCE OF PRIOR SPINAL SURGERY WITH A DESTRUCTIVE PROCESS CENTERED AT THE L2-L3 DISC SPACE AND LUCENCY AROUND THE LEFT PEDICULAR SCREW AT L3 CONCERNING FOR OSTEODISCITIS AND INFECTION AROUND THE PEDICULAR SCREW. Findings were dicussed with JÚNIOR Paniagua at Dr. Hutchins' office at 1023 on 06/15/15. Interpreting Physician: ??KRISTIAN BRADSHAW M.D. ??Read on: ??Jun 15 2015 12:20P Transcribed by: ??glendy ?? On: Jun 15 2015 12:20P Approved Electronically by: ??KRISTIAN BRADSHAW M.D. ??on: ??Jun 15 2015 4:42P Attending: ??ANNA WILSON Requesting: ??ANNA WILSON Requesting Fax: ??-- Attending Fax: ??-- Attending ID: ??[id number] Requesting ID: ??[id number] Report To 1 ID: ??[id number] Report To 1 Name: ??ANNA WILSON Report To 1 FAX: ??-- NextGen Order #: Procedure Note Provider, MD Dee - 11/28/[address] [place] [id number] Acc#: [id number] DATE OF EXAM: Jun 15 2015 CLINICAL HISTORY: Post laminectomy syndrome. RESULT: Correlation with a CT post myelogram of the lumbar spine performed on01/03/[address] [facility] is made. Since the prior examthe patient has undergone spinal fusion with posterior hardware extendingfrom L1 to L3. Laminectomies had been performed at L2 and L3 bilaterally.The L1 and L2 disc space is fused. Significantly lucency is noted aroundthe left pedicualr screw at L3 measuring up to 9mm in thickness. Partialfusion of the L3 and L4 disc space is noted. The inferior endplate of L2and superior endplate of L3 are sclerotic with multiple cystic changesnoted. Previously noted vacuum disc phenomenon seen on the prior study isnot present at the current level. Findings are concerning for adestructive process at the L2-L3 disc space most consistent with aninfectious etiology. Given the lucency around the left pedicular screw atL3, these findings likely also represent infection. Disc space narrowingis seen at L5-S1. Artifact from the fusion hardware makes evaluation of the central canal limited in the upper and mid lumbarregion. IMPRESSION: 1. EVIDENCE OF PRIOR SPINAL SURGERY WITH A DESTRUCTIVE PROCESS CENTERED ATTHE L2-L3 DISC SPACE AND LUCENCY AROUND THE LEFT PEDICULAR SCREW AT [id number] FOR OSTEODISCITIS AND INFECTION AROUND THE PEDICULAR SCREW.Findings were dicussed with JÚNIOR Paniagua at Dr. Hutchins' office at 1023 on06/15/15. Interpreting Physician: KRISTIAN BRADSHAW M.D. Read on: Jun 15 201512:20P Transcribed by: glendy On: Jun 15 2015 12:20P Approved Electronically by: KRISTIAN BRADSHAW M.D. on: Jun 15 20154:42P Attending: ANNA WILSON Requesting: ANNA WILSON Requesting Fax: -- Attending Fax: -- Attending ID: [id number] Requesting ID: [id number] Report To 1 ID: [id number] Report To 1 Name: ANNA WILSON Report To 1 FAX: -- NextGen Order #: us Historical Provider MD YO CT PROCEDURES Final R esult documented in this encounter Visit Diagnoses Diagnosis Postlaminectomy syndrome, not elsewhere classified Abnormal findings on diagnostic imaging of other parts of musculoskeletal system documented in this encounter
--- OUTSIDE RECORDS SUMMARY | 2024-07-24 00:13 | XMS_ITS | Encounter Summary ---
Author Organization [facility] Facility Care Team Providers Care Communication Analyst Name Role Phone Unavailable Primary Care Provider Unavailabl e Encounter Details Date Type Department Care Team (Latest Contact Info) Description 03/09/2014 10:21 AM CDT - 03/09/2014 11:59 PM CDT Hospital Encounter [facility] CLINCONV Anna Wilson MD [address] [place] [id number] Postlaminectomy syndrome, lumbar region Social History Tobacco Use Types Packs/Day Years Used Date Smoking Tobacco: Never Assessed Sex and Gender Information Value Date Recorded Sex Assigned at Not on file 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 Lumbar spine, three views. ??Comparison 01/03/2014. FINDINGS: ??Postsurgical changes are present at L1 through L3. ??These have occurred since the prior study. ??There are posterior fusion devices with pedicle screws bilaterally. ??There is radiolucency about the hardware on the left at the L3 level. ??Milder changes are seen elsewhere. ??Laminectomy is present. ??There is a metallic snap in the soft tissues or overlying the soft tissues posteriorly at the operative level. ??There is mesh in place in the abdomen. There is abundant osteophyte on the left above the surgery at T12-L1. There is abundant osteophyte anteriorly throughout the lumbar spine. ?? There is a vacuum disc anteriorly at the operated L2-L3 level. Bony alignment appears fairly similar to the preoperative films. ?? Degenerative changes also are present at L3-L4, L4-L5 and L5-S1. ?? Facet arthropathy is present. ??Bridging osteophyte or ossified syndesmophytes are noted in the thoracic spine. IMPRESSION: 1. ??Postsurgical changes at L1 through L3 have occurred since the prior study. ??Radiolucency particularly about the left L3 screw. ?? Laminectomy. 2. ??Extensive osteophyte formation. ??Changes may represent DISH. ?? AM:[facility] Radiologist: HELGA DENNIS MD ??M.D. ?? Attending: ??ANNA WILSON M.D. Requesting: ANNA WILSON M.D. Requesting Fax: ?? Requesting ID: [id number] Attending Fax: ?? Attending ID: ?? [id number] Completed Time: ?? 03/09/2014 11:27 AM Dictated Time: ?03/09/2014 12:43 AM Transcribed Time: 03/09/2014 3:43 PM Signed by: ?HELGA DENNIS MD ?? M.DFany on 03/09/2014 4:22 PM Report To 1 ID: Report To 1 Name: , Report To 1 FAX: Report To 2 ID: Report To 2 Name: , Report To 2 FAX: Report To 3 ID: Report To 3 Name: , Report To 3 FAX: NextGen Order #: Procedure Note Provider, MD Dee - 11/28/2016 Lumbar spine HISTORY: 722.83 post laminectomy syndrome. Lumbar spine, three views. Comparison 01/03/2014. FINDINGS: Postsurgical changes are present at L1 through L3. These have occurred since the prior study. There are posterior fusion devices with pedicle screws bilaterally. There is radiolucency about the hardware on the left at the L3 level. Milder changes are seen elsewhere. Laminectomy is present. There is a metallic snap in the soft tissues or overlying the soft tissues posteriorly at the operative level. There is mesh in place in the abdomen. There is abundant osteophyte on the left above the surgery at T12-L1. There is abundant osteophyte anteriorly throughout the lumbar spine. There is a vacuum disc anteriorly at the operated L2-L3 level. Bony alignment appears fairly similar to the preoperative films. Degenerative changes also are present at L3-L4, L4-L5 and L5-S1. Facet arthropathy is present. Bridging osteophyte or ossified syndesmophytes are noted in the thoracic spine. IMPRESSION: 1. Postsurgical changes at L1 through L3 have occurred since the prior study. Radiolucency particularly about the left L3 screw. Laminectomy. 2. Extensive osteophyte formation. Changes may represent DISH. AM:[facility] Radiologist: HELGA DENNIS MD, M.D. Attending: ANNA WILSON M.D. Requesting: ANNA WILSON M.D. Requesting Requesting ID: [id number] Attending Attending ID: [id number] Completed Time: 03/09/2014 11:27 AM Dictated Time: 03/09/2014 12:43 AM Transcribed Time: 03/09/2014 3:43 PM Signed by: HELGA DENNIS MD, M.D. on 03/09/2014 4:22 PM Report To 1 ID: Report To 1 Name: , Report To 1 FAX: Report To 2 ID: Report To 2 Name: , Report To 2 FAX: Report To 3 ID: Report To 3 Name: , Report To 3 FAX: NextGen Order #: us Historical Provider MD YO XR PROCEDURES Final R esult documented in this encounter Visit Diagnoses Diagnosis Postlaminectomy syndrome, lumbar region documented in this encounter
--- OUTSIDE RECORDS SUMMARY | 2024-07-24 00:13 | XMS_ITS | Encounter Summary ---
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
--- OUTSIDE RECORDS SUMMARY | 2024-07-24 00:13 | XMS_ITS | Encounter Summary ---
Author Organization [facility] Healthcare Address [address] [place] [address] Care Team Providers Care Art Professor Name Role Phone Unavailable Primary Care Provider Unavailabl e Encounter Details Date Type Department Care Team (Late st Contact Info) Description 08/30/2010 8:49 AM LINING FOLDER - 08/30/2010 11:59 PM LINING FOLDER Hospital Encounter [facility] CLINCONV Neoplasm by body site; Type 2 or unspecified type diabetes mellitus; Obesity Social History Tobacco Use Types Packs/Day Years Used Date Smoking Tobacco: Never Assessed Sex and Gender Information Value Date Recorded Sex Assigned at Not on file Legal Sex Male 3:18 AM LINING FOLDER Gender Identity Not on file Sexual Orientation Not on file documented as of this encounter Plan of Treatment Not on file documented as of this encounter Visit Diagnoses Diagnosis Neoplasm by body site Neoplasm of unspecified nature, site unspecified Type 2 or unspecified type diabetes mellitus Obesity Obesity, unspecified documented in this encounter
--- OUTSIDE RECORDS SUMMARY | 2024-07-24 00:13 | XMS_ITS | Encounter Summary ---
Author Organization [facility] Healthcare Address [address] [place] [address] Care Team Providers Care Marine Diesel Technician Name Role Phone Unavailable Primary Care Provider Unavailabl e Encounter Details Date Type Department Care Team (Late st Contact Info) Description 10/10/2010 10:45 AM GARMENT MANUFACTURER - 10/10/2010 11:59 PM GARMENT MANUFACTURER Hospital Encounter [facility] CLINCONV Aftercare following surgery for neoplasm; Type 2 or unspecified type diabetes mellitus Social History Tobacco Use Types Packs/Day Years Used Date Smoking Tobacco: Never Assessed Sex and Gender Information Value Date Recorded Sex Assigned at Not on file Legal Sex Male 3:18 AM GARMENT 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
--- OUTSIDE RECORDS SUMMARY | 2024-07-24 00:13 | XMS_ITS | Encounter Summary ---
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, uncontrolled; Polyneuropathy in diabetes (CMS/HCC) ([facility]); Body mass index (BMI) of 40.0-44.9 in adult ([facility]); Chronic kidney disease, stage III (moderate) (HCC); Morbid obesity ([facility]); 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, 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; Other and unspecified hyperlipidemia Social History Tobacco Use Types Packs/Day Years Used Date Smoking Tobacco: Never Assessed Sex and Gender Information Value Date Recorded Sex Assigned at Not on file Legal Sex 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 Gender Identity Not on file Sexual Orientation Not on file documented as of this encounter Last Filed Vital Signs Vital Sign Reading Time Taken Comments Blood Pressure 144/55 01/06/2014 12:00 PM CDT Pulse 102 01/06/2014 12:00 PM CDT Temperature - - Respiratory Rate - - Oxygen Saturation - - Inhaled Oxygen Concentration - - Weight 144 kg (317 lb 7.4 oz) 01/03/2014 1:00 PM CDT Height 188 cm (6' 2.02 ) 01/03/2014 1:00 PM CDT Body Mass Index 40.74 01/03/2014 1:00 PM CDT documented in this encounter Discharge Summaries * ProviderDee MD - 01/06/2014 12:00 AM CDT Patient: BERNIE CAREY Account: [id number] Room No: 1412-B : 1940 Admit Date: 01/03/2014 Attending: ANNA JOHNSON MD Disch. Date: 01/06/2014 Dictating: ANNA JOHNSON MD Patient Type: IP History: The patient is a 73-year-old gentleman who was admitted for elective lumbar decompression and fusion for spinal stenosis of L1 through L3. Please refer to Admission Note for past medical history and physical examination. Hospital Course: The patient underwent a lumbar decompression and fusion of L1 through [address] Anna Andrews. At the time of discharge, the incision is clean and dry with a little ecchymotic area to the distal end of the incision line. Otherwise, no drainage is present. He is ambulatory with 1 to 2 assistance. He has been instructed on appropriate activity restrictions and to continue his lumbosacral brace. Discharge Medications (Refer to Medication Reconciliation Sheet): 1. Patient will be given a prescription for Percocet 5/325, 1 to 2 tablets every 4 to 6 hours as needed for pain. 2. Flexeril 10 mg 3 times a day p.r.n. for muscle relaxant. Followup Appointment: We are checking for social service placement for rehabilitation via [facility]. If a bed is available, he will be discharged today, and he will follow up in our office in about 5 to 6 weeks. [place] will be removed on January 11, 2014. They will notify us immediately for fever, redness, swelling, drainage, or other untoward complications. Dictated By: ALLY Gonsalez. MD BESSY NUNEZ/bib TD: 01/07/2014 12:29 Authenticated by Anna Johnson MD On 01/08/2014 09:40:28 AM documented in this encounter Consult Notes * Provider, MD Dee - 01/03/2014 12:00 AM CDT Patient: BERNIE CAREY Account: [id number] Room No: 1412-B : 1940 Consult Date: 01/03/2014 Attending: ANNA JOHNSON MD Admit Date: 01/03/2014 Consult.: NIK AWAD M.D. Disch. Date: Patient Type: MERGED WITH [facility] PHYSICIAN: Myron Diop M.D. REASON FOR CONSULTATION: I have been asked by Dr. Johnson to see Mr. Carey to evaluate him for surgery and also to manage his diabetes, hypertension, and other medical problems. HISTORY OF PRESENT ILLNESS: Mr. Carey is a pleasant 73 -year-old male who has had severe back pain for about 3 months. He tells me he has been unable to ambulate except with a walker as a result. The patient has no history of any heart disease. He has never had an [place] nor has he had any problems with heart failure, any arrhythmias that he can recall. He tells me he has had at least 3 stress tests in his life. He thinks the last was 2 to 3 years ago. He says they have all been normal. He has never had a cardiac catheterization. He has not had any recent chest pain or chest pressure. Prior to his back ailments, he tells me he would be able to walk a couple of blocks without any shortness of breath or chest pressure. He tells me he would be able to go up 1 to 2 flights of steps also without any substantial shortness of breath or chest pressure. The patient has no history of any lung disease. He quit smoking over 40 years ago. He has not had any recent coughing, shortness of breath, difficulty breathing. He has no history of asthma, COPD, or oxygen requirement. The patient has no history of any bleeding disorders or DVT in the family or personally. Regarding his diabetes, he tells me it was diagnosed in 2010 after a partial pancreatectomy. He tells me had a pancreatic mass and required a partial pancreatectomy. After the surgery, he began having glucose elevations necessitating use of insulin. He tells me he has had vision problems which predate his diabetes. He does not believe he has any retinopathy. He has had problems with neuropathy, but he thinks that may have also predated his diabetes. He confirms his insulin regimen is Lantus 45 at night and 5 units of Humalog with meals. Hypoglycemia is rarely ever a problem for him. He has not had any recent nausea or vomiting. There has not been any recent fever or chills. He has not had any difficulty breathing, shortness of breath, coughing, pain, breathing, etc. He has never had problems with anesthesia in the past. PAST MEDICAL HISTORY: 1. 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 2. 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 3. Incisional hernia related to the above surgery requiring hernia repair with mesh. 4. Hypertension. 5. Hyperlipidemia. 6. BPH. 7. Lower back pain. 8. Problems with claustrophobia, particularly with MRIs. 9. Neuropathy, not thought to be related to diabetes. 10. He specifically denies any coronary artery disease, CHF, lung disease. 11. He has had bilateral total knee replacements. 12. Rotator cuff surgery. ALLERGIES TO MEDICATIONS: None. HOME MEDICATIONS: 1. Aspirin 325 daily. His last dose was yesterday evening. 2. Diclofenac/misoprostol 75/200 orally daily. 3. Humalog 5 units with meals. 4. Lantus 20 units at bedtime. 5. Lisinopril 40 daily. 6. Lyrica 50 mg orally 3x per day. 7. Simvastatin 40 daily. 8. Flomax 0.4 daily. FAMILY MEDICAL HISTORY: No history of any bleeding disorders nor DVTs. SOCIAL HISTORY AND HABITS: The patient is retired. He quit smoking 40 years ago. He used to smoke about 3 packs per day. He did so for somewhere between 10 and 15 years. The patient lives in [place], [place] with his . REVIEW OF SYSTEMS: CONSTITUTIONAL: He denies any recent changes in weight. He has had no recent fevers, chills, or night sweats. HEENT: No sinus congestion, sore throat, or problems swallowing. NECK: No pains, no masses. CARDIOVASCULAR: He has had no recent chest pains, no palpitations. RESPIRATORY: No shortness of breath, no coughing or pain breathing. GASTROINTESTINAL: No recent nausea or vomiting. GENITOURINARY: No frequency or dysuria. SKIN: No rashes, ulcers, or itching. NEUROLOGIC: He has chronic neuropathy. He has no acute focal numbness, tingling, or weakness. No headache. ENDOCRINOLOGY: No recent polydipsia or polyuria. MUSCULOSKELETAL: Acute back pain as already described. PHYSICAL EXAMINATION: GENERAL APPEARANCE: The patient is alert and oriented, he is lying in bed on his side, appears comfortable in this position. He seems to provide a reliable history and answers questions appropriately. He is somewhat obese. VITAL SIGNS: Patient's blood pressure is 159/90, the heart rate 62, respiratory rate 16, he has been afebrile, temperature is 97.0, saturating 98%, he weighs 144 kg. HEENT: He has symmetrical facial features, no scleral icterus. Pupils are equal. NECK: No bruits, no lymphadenopathy. RESPIRATORY: He is a normal effort at this time. His lungs are clear to auscultation. CARDIAC: He has a regular rate and rhythm at this time, no rubs, no murmurs, with readily palpable pulses both upper and lower extremities. ABDOMEN: Normoactive bowel sounds, soft and nontender, nondistended, no flank tenderness. EXTREMITY: No clubbing, cyanosis, or edema. SKIN: No unusual rashes or lesions were appreciated. LABORATORY DATA: Glucose this evening was 87. PTT was 25. An INR was 1. CBC showed a white count of 10.0, hemoglobin 15.1, platelets were 402,000, differential was unremarkable. A urinalysis done today was unremarkable. IMAGING: He has had films with his lumbar spine and CT which are still pending. A chest x-ray, which was just completed which I have personally visualized, does not show any evidence of any acute disease. He may have a small effusion in the left side. Radiology read though is still pending. EKG: This was done earlier today and reveals a sinus rhythm. There is evidence of [place] prolongation consistent with a first degree block. There is no ST segment changes, the T waves are normal. ASSESSMENT AND PLANS: Mr. Carey is a 73 -year-old male with intractable back pain. He likely will require surgery in the near future by Dr. Johnson. 1. Preoperative evaluation - The patient would present a moderate risk given his comorbid conditions. However, prior to back pain he, per his history, had greater than 4 to 5 metabolic equivalents. He has also had negative stress tests in the past, the last somewhere between 2 to 3 years ago. The procedure would represent at most a moderate risk procedure. From a cardiovascular standpoint, he should be able to proceed to surgery when Dr. Johnson feels he is ready. My only concern at this point regarding timing of surgery is aspirin he has been on. His last dose was last night. I would defer to the surgeons to decide how long is most appropriate given the procedure planned. 2. Diabetes mellitus type 2 - Uncontrolled. Because the patient will likely undergo procedures, he is inpatient and will have periods of n.p.o., I will reduce his total insulin. I will take his Lantus down to 20 units at night. I will use Humalog 5 units with meals for now and use a medium-dose correction. We can reevaluate blood sugar tomorrow. 3. Hypertension - His lisinopril dose I will decrease for surgery. I will take it down to 10. As his blood pressure dictates, he could be increased to his home dose. 4. Hyperlipidemia - I would continue a statin to help reduce his risk of perioperative cardiovascular complications. 5. DVT prophylaxis - I would recommend sequential compression stockings given upcoming procedures. 6. *-*-* 7. 8. 1. NIK AWAD M.D. SH/bethany TD: 01/04/2014 11:41 CC: MYRON DIOP M.D. [place], [place] Authenticated by Nik Awad M.D. On 01/04/2014 03:47:06 PM documented in this encounter Miscellaneous Notes * Op Note - Provider, MD Dee - 01/04/2014 12:00 AM CDT Patient: BERNIE CAREY Account: [id number] Room No: 1412-B : 1940 Proc. Date: 01/04/2014 Surgeon: ANNA JOHNSON MD Admit Date: 01/03/2014 Disch. Date: Patient Type: IP AMENDED TO CORRECT PROCEDURE DATE 01/10/14 Preoperative Diagnosis: Spinal stenosis with evolving weakness L1-2, L2-3. Postoperative Diagnosis: Spinal stenosis with evolving weakness L1-2, L2-3. Procedures Performed: 1. L1-2, L2-3 laminectomy, facetectomy, foraminotomy, bilateral, Dr Johnson. 2. Removal of disk herniation L2-3, right, Dr Johnson. 3. Pedicle screw fixation L1-3, Dr Andrews. 4. Posterolateral fusion, L1-L3, Dr Andrews. Anesthetic: General. Introduction: After careful review of the radiographic studies and clinical course with the patient, we agreed to the above-noted procedure. The patient previously had been briefed on the goals, risks, limitations, and alternatives to surgical intervention. Description of Procedure: After the induction of adequate endotracheal anesthesia, the patient was placed in a Al frame. The frame was flexed. Sterile prep and drape of the lower lumbar area was undertaken. A midline skin incision was outlined, infiltrated with local anesthetic, and carried down through the skin and subcutaneous tissue. Subperiosteal dissection was undertaken to expose the spinous process, lamina, and transverse processes of L1, 2, and 3. Radiographic verification of appropriate level was verified. We then sounded and tapped the pedicles in preparation for later screw placement, and then removed the spinous process and the large medial facets at L1-2 and L2-3, effecting significant central decompression. We traced the nerve roots well into the foramen bilaterally. At L2-3 on the right side, there was, in addition to the bony overgrowth, disk herniation noted as we retracted the thecal sac and nerve root; however, we were able to remove this and thoroughly decompress the nerve roots on that side. Following this, we placed Gelfoam over the exposed thecal sac and nerve root. Dr Andrews placed instrumentation and graft, and will dictate separately. After radiographic verification of appropriate instrumentation placement, we closed the deep fascial layer with 0 Vicryl sutures, irrigated, placed a subcutaneous drain, and closed the skin with 2-0 subcutaneous sutures and chelsea. Sterile dressing was then applied. ANNA JOHNSON MD DK/mt/em TD: 01/05/2014 20:26 Authenticated by Anna Johnson MD On 01/10/2014 01:37:20 PM * Admission Note - Provider, MD Dee - 01/03/2014 12:00 AM CDT Patient: BERNIE CAREY Account: [id number] Room No: 1412-B : 1940 Admit Date: 01/03/2014 Attending: ANNA JOHNSON MD Disch. Date: Dictating: ANNA JOHNSON MD Patient Type: SDS The patient is a 73-year-old gentleman who has had progressively severe pain in the lower lumbar area for the last several months. More recently, he began to notice weakness in the legs particularly with hip flexors in the last few days has needed to use a walker in order to be able to get out of a chair, as it is associated with numbness to the feet, but he has not had any bowel or bladder dysfunction, gait disturbance, weakness, or other neurologic deficits. He had one physical therapy session which aggravated his pain substantially. He has not had any prior problems with his lumbar spine. PAST MEDICAL HISTORY: Notable for: 1. Retinal hyperemia. 2. Hypertension. 3. Insulin-dependent diabetes mellitus. 4. Panic attack with MRI. SURGERIES: 1. Right rotator cuff for surgery in 2004. 2. Right knee replacement in 2006; left knee replacement in 2009. 3. Surgery for pancreatic mass in 2010, noncancerous. ALLERGIES: None. SOCIAL HISTORY: Two beers a week. Smoking none. PHYSICAL EXAMINATION: Height 74. Weight 325. Blood pressure 147/86. Alert and fully oriented. HEENT: Within normal limits. HEART: Regular rate and rhythm. LUNGS: Clear. ABDOMEN: Benign. NEUROLOGIC: The patient has significant weakness of the hip flexors, 2 out of 3/5. Quadriceps muscles 2 out of 3/5. Distal strength is fairly good. There is scattered sensory loss in the feet consistent with neuropathy. Reflexes are hypoactive but symmetric. DIAGNOSTIC STUDIES: MRI: Lumbar spine from 12/28/13 demonstrates severe spinal stenosis at L1-2, L2-3. DIAGNOSTIC IMPRESSION: Severe neurogenic claudication with evolving weakness in the context of severe spinal stenosis. TREATMENT RECOMMENDATIONS: The patient is admitted for myelography. We will definitely need operative intervention. I discussed this with the patient, his and son and will proceed with operative intervention on 01/04/2014. ANNA JOHNSON MD DK/sn TD: 01/03/2014 19:21 Authenticated by Anna Johnson MD On 01/04/2014 11:22:04 AM * Op Note - Provider, MD Dee - 01/03/2014 12:00 AM CDT Patient: BERNIE CAREY Account: [id number] Room No: 1412-B : 1940 Proc. Date: 01/03/2014 Surgeon: ANNA JOHNSON MD Admit Date: 01/03/2014 Disch. Date: Patient Type: IP Preoperative Diagnosis: Spinal stenosis with evolving weakness L1-2, L2-3. Postoperative Diagnosis: Spinal stenosis with evolving weakness L1-2, L2-3. Procedures Performed: 1. L1-2, L2-3 laminectomy, facetectomy, foraminotomy, bilateral, Dr Johnson. 2. Removal of disk herniation L2-3, right, Dr Johnson. 3. Pedicle screw fixation L1-3, Dr Andrews. 4. Posterolateral fusion, L1-L3, Dr Andrews. Anesthetic: General. Introduction: After careful review of the radiographic studies and clinical course with the patient, we agreed to the above-noted procedure. The patient previously had been briefed on the goals, risks, limitations, and alternatives to surgical intervention. Description of Procedure: After the induction of adequate endotracheal anesthesia, the patient was placed in a Al frame. The frame was flexed. Sterile prep and drape of the lower lumbar area was undertaken. A midline skin incision was outlined, infiltrated with local anesthetic, and carried down through the skin and subcutaneous tissue. Subperiosteal dissection was undertaken to expose the spinous process, lamina, and transverse processes of L1, 2, and 3. Radiographic verification of appropriate level was verified. We then sounded and tapped the pedicles in preparation for later screw placement, and then removed the spinous process and the large medial facets at L1-2 and L2-3, effecting significant central decompression. We traced the nerve roots well into the foramen bilaterally. At L2-3 on the right side, there was, in addition to the bony overgrowth, disk herniation noted as we retracted the thecal sac and nerve root; however, we were able to remove this and thoroughly decompress the nerve roots on that side. Following this, we placed Gelfoam over the exposed thecal sac and nerve root. Dr Andrews placed instrumentation and graft, and will dictate separately. After radiographic verification of appropriate instrumentation placement, we closed the deep fascial layer with 0 Vicryl sutures, irrigated, placed a subcutaneous drain, and closed the skin with 2-0 subcutaneous sutures and chelsea. Sterile dressing was then applied. ANNA JOHNSON MD DK/mt TD: 01/05/2014 20:26 Authenticated by Anna Johnson MD On 01/06/2014 08:51:57 AM * Op Note - Provider, MD Dee - 01/03/2014 12:00 AM CDT Patient: BERNIE CAREY Account: [id number] Room No: 1412-B : 1940 Proc. Date: 01/03/2014 Surgeon: ANNA ANDREWS MD Admit Date: 01/03/2014 Disch. Date: Patient Type: IP Preoperative Diagnoses: 1. Spinal stenosis at L1-2, L2-3. 2. Herniated disk, L2-3 right. Postoperative Diagnoses: 1. Spinal stenosis at L1-2, L2-3. 2. Herniated disk, L2-3 right. Procedures Performed: 1. Bilateral lumbar laminectomy and facetectomy, L1-L3Alex. 2. Diskectomy L2-3, right, Alex. 3. Posterior spinal fusion with local autograft, L1-Doug Marr. 4. Spinal instrumentation with [employer] Streamline instrumentation, L1-L3Doug. History and Indication: This is an individual who was admitted because of severe incapacitating back pain. Imaging studies showed severe stenosis with complete block at L1-2 and herniated disk at L2-3 on the right side. It was felt that surgery was indicated. What Was Done: The patient was taken to the operating room. General endotracheal anesthesia was induced. The patient was placed prone on the Al frame. Back was sterilely prepped and draped. Midline incision was made. Subperiosteal dissection exposed the spinous process, lamina, facet joint, and transverse processes from L1-L3. X-ray verified appropriate surgical level. The coronal facet of T12-L1, L1-L2, and L2-3 were removed with [place] rongeur. Pedicle probes were introduced. The pedicles of L1, L2, and L3 were tapped to 5.5 mm. Bone was sounded and felt on all sides. Wax was placed in the entry holes for later use. Dr Johnson performed a laminectomy and diskectomy as he dictated in his report. After that was completed, the wound was irrigated. Gelfoam and FloSeal was placed over the exposed dura. The bone that was removed by Dr Johnson was devoid of soft tissue and morselized in the bone mill. The posterolateral elements were thoroughly decorticated with a high-speed drill. Bone graft was packed in the posterolateral elements, 6.5 x 45 mm [employer] screws were placed in the pedicles of L1, L2, and L3. The appropriate size calista was chosen, bent, and tightened down with set screws and a torque device. All connections were checked and double checked. The wound was closed in layers using 0 Vicryl, subcutaneous drain, 2-0 Vicryl, and chelsea. No complications. Counts were correct. Blood loss was about 500. ANNA ANDREWS MD DR/bib TD: 01/06/2014 11:01 Authenticated by Anna Andrews MD On 01/08/2014 09:31:25 AM documented in this encounter Plan of Treatment Not on file documented as of this encounter Procedures Procedure Name Priority Date/Time Associated Diagnosis Comments BLOOD GLUCOSE Routine 01/06/2014 11:55 AM CDT BLOOD GLUCOSE Routine 01/06/2014 6:47 AM CDT PLASMA BASIC METABOLIC PANEL Routine 01/06/2014 5:10 AM CDT DISCHARGE LABORATORY CUMULATIVE REPORT 01/06/2014 BLOOD GLUCOSE Routine 01/05/2014 10:11 PM CDT BLOOD GLUCOSE Routine 01/05/2014 4:51 PM CDT BLOOD GLUCOSE Routine 01/05/2014 12:16 PM CDT BLOOD GLUCOSE Routine 01/05/2014 6:35 AM CDT BLOOD GLUCOSE Routine 01/04/2014 8:56 PM CDT BLOOD GLUCOSE Routine 01/04/2014 5:27 PM CDT BLOOD GLUCOSE Routine 01/04/2014 3:53 PM CDT SPINE RADIOGRAPHY Routine 01/04/2014 3:2 0 PM CDT SPINE RADIOGRAPHY Routine 01/04/2014 2:3 3 PM CDT BLOOD ABO, RH, INDIRECT AB SCREEN Routine 01/04/2014 1:21 PM CDT BLOOD GLUCOSE Routine 01/04/2014 11:24 AM CDT BLOOD GLUCOSE Routine 01/04/2014 6:51 AM CDT BLOOD GLUCOSE Routine 01/03/2014 9:13 PM CDT URINALYSIS Routine 01/03/2014 5:45 PM CDT PLASMA PROTHROMBIN TIME (PT) Routine 01/03/2014 5:43 PM CDT PLASMA PARTIAL THROMBOPLASTIN TIME (PTT) Routine 01/03/2014 5:43 PM CDT BLOOD CELL COUNT (CBC), MORPHOLOGIC EXAM Routine 01/03/2014 5:43 PM CDT BLOOD GLUCOSE Routine 01/03/2014 5:[address] LUMBAR SPINE WO CONTRAST Routine 01/03/2014 5:01 PM CDT MYELOGRAM VIA LUMBAR PUNCTURE Routine 01/03/2014 4:54 PM CDT XR CHEST 1 VIEW Routine 01/03/2014 3:44 PM CDT XR SPINE LUMBAR 2 OR 3 VIEWS Routine 01/03/2014 3:29 PM CDT BLOOD GLUCOSE Routine 01/03/2014 1:32 PM CDT SERUM 1, 25-DIHYDROXYCHOLECALCIFERO L (VITAMIN D) Routine 01/03/2014 12:43 PM CDT PLASMA BASIC METABOLIC PANEL Routine 01/03/2014 12:43 PM CDT ELECTROCARDIOGRAPHY (ECG) 01/03/2014 documented in this encounter Results * (ABNORMAL) Blood glucose (01/06/2014 11:55 AM CDT) Glucose, POC, bld 233(H) 70 - 140 mg/dl HISTORICAL RESULTS Blood specimen (specimen) 01/06/2014 11:55 AM CDT us Anna Johnson MD LAB BLOOD ORDERABLES Final R esult HISTORICAL RESULTS * (ABNORMAL) Blood glucose (01/06/2014 6:47 AM CDT) Glucose, POC, bld 180(H) 70 - 140 mg/dl HISTORICAL RESULTS Gluc, com 1, bld Follow Protocol HISTORICAL RESULTS Blood specimen (specimen) 01/06/2014 6:47 AM CDT Anna Johnson MD LAB BLOOD ORDERABLES Final R esult Performing Organization Address City/[facility]/ZIP Co de Phone Number HISTORICAL RESULTS * (ABNORMAL) Plasma basic metabolic panel (01/06/2014 5:10 AM CDT) Sodium 134(L) 136 - 146 mmol/L HISTORICAL RESULTS K, pl 4.2 3.3 - 4.9 mmol/L HISTORICAL RESULTS Chloride 104 98 - 108 mmol/L HISTORICAL RESULTS CO2 26 22 - 33 mmol/L HISTORICAL RESULTS BUN 19(H) 7 - 18 mg/dl HISTORICAL RESULTS Glucose 197(H) 70 - 140 mg/dl HISTORICAL RESULTS Comment: Glucose is assumed to be non-fasting. ?? Fasting Glucose normal ranges are: 0 days - 2 months: ? 40 mg/dL - 100 mg/dL 2 months - 999 years: ?70 mg/dL - 99 mg/dL Creatinine 1.42 0.50 - 1.50 mg/dl HISTORICAL RESULTS eGFR 49 ml/min/1.7 3 m2 HISTORICAL RESULTS Comment: GFR Reference Range: = > 60 mL/min/1.73 m2 This result has been calculated assuming the patient is Non-. ??If the patient is , please multiply this result by 1.21. The GFR value is not recommended for medication dose adjustment for renal function, creatinine clearance values should be used. Calcium 8.4(L) 8.5 - 10.5 mg/dl HISTORICAL RESULTS Plasma 01/06/2014 5:10 AM CDT us Chance Olvera MD LAB BLOOD ORDERABLES Fi nal Result HISTORICAL RESULTS * DISCHARGE LABORATORY CUMULATIVE REPORT (01/06/2014) Narrative 01/06/2014 Ordered by an unspecified provider. Historical Provider LAB BLOOD ORDERABLES Ruth l Result * (ABNORMAL) Blood glucose (01/05/2014 10:11 PM CDT) Glucose, POC, bld 196(H) 70 - 140 mg/dl HISTORICAL RESULTS Gluc, com 1, bld Follow Protocol HISTORICAL RESULTS Blood specimen (specimen) 01/05/2014 10:11 PM CDT Anna Johnson MD LAB BLOOD ORDERABLES Final R esult Performing Organization Address [facility] de Phone Number HISTORICAL RESULTS * (ABNORMAL) Blood glucose (01/05/2014 4:51 PM CDT) Glucose, POC, bld 184(H) 70 - 140 mg/dl HISTORICAL RESULTS Blood specimen (specimen) 01/05/2014 4:51 PM CDT Anna Johnson MD LAB BLOOD ORDERABLES Final R esult Performing Organization Address [facility] Phone Number HISTORICAL RESULTS * (ABNORMAL) Blood glucose (01/05/2014 12:16 PM CDT) Glucose, POC, bld 207(H) 70 - 140 mg/dl HISTORICAL RESULTS Blood specimen (specimen) 01/05/2014 12:16 PM CDT Anna Johnson MD LAB BLOOD ORDERABLES Final R [facility] Performing Organization Address [facility] Phone Number HISTORICAL RESULTS * (ABNORMAL) Blood glucose (01/05/2014 6:35 AM CDT) Glucose, POC, bld 185(H) 70 - 140 mg/dl HISTORICAL RESULTS Blood specimen (specimen) 01/05/2014 6:35 AM CDT Anna Johnson MD LAB BLOOD ORDERABLES Final R esult Performing Organization Address [facility] de Phone Number HISTORICAL RESULTS * (ABNORMAL) Blood glucose (01/04/2014 8:56 PM CDT) Glucose, POC, bld 195(H) 70 - 140 mg/dl HISTORICAL RESULTS Blood specimen (specimen) 01/04/2014 8:56 PM CDT Anna Johnson MD LAB BLOOD ORDERABLES [facility] Performing Organization Address [facility] de Phone Number HISTORICAL RESULTS * (ABNORMAL) Blood glucose (01/04/2014 5:27 PM CDT) Glucose, POC, bld 163(H) 70 - 140 mg/dl HISTORICAL RESULTS Blood specimen (specimen) 01/04/2014 5:27 PM CDT Anna Johnson MD LAB BLOOD ORDERABLES [facility] Performing Organization Address [facility] Phone Number HISTORICAL RESULTS * (ABNORMAL) Blood glucose (01/04/2014 3:53 PM CDT) Glucose, POC, bld 149(H) 70 - 140 mg/dl HISTORICAL RESULTS Blood specimen (specimen) 01/04/2014 3:53 PM CDT Anna Johnson MD LAB BLOOD ORDERABLES [facility] Performing Organization Address [facility] Phone Number HISTORICAL RESULTS * SPINE RADIOGRAPHY (01/04/2014 3:20 PM CDT) Anatomical Region Laterality Modality N/A Radiographic Ary ging 01/04/2014 3:20 PM CDT Narrative 01/04/2014 6:42 PM CDT Operative lumbar spine HISTORY: lumbar surgery TECHNIQUE: A single lateral projection was obtained during surgery and this film was made available for dictation at this time. ?? FINDINGS: Patient has changes of posterior lumbar fusion with pedicle screws at the L1, L2 and L3 vertebral bodies. ??A retraction device is seen in the dorsal surgical wound. ?? The single projection is limited due to operative technique and positioning. SUMMARY: 1. Operative radiograph Radiologist: LA NENA GIL, FRANK Wiley M.D. ?? Attending: ??ANNA JOHNSON M.D. Requesting: ANNA JOHNSON M.D. Requesting Fax: ?? Requesting ID: [id number] Attending Fax: ?? Attending ID: ?? [id number] Completed Time: ?? 01/04/2014 3:20 PM Dictated Time: ?01/04/2014 6:39 PM Transcribed Time: 01/04/2014 6:42 PM Signed by: ?FRANK DEUTSCH MD on 01/04/2014 6:42 PM Report To 1 ID: Report To 1 Name: , Report To 1 FAX: Report To 2 ID: Report To 2 Name: , Report To 2 FAX: Report To 3 ID: Report To 3 Name: , Report To 3 FAX: NextGen Order #: Procedure Note Provider, MD Dee - 11/28/2016 Operative lumbar spine HISTORY: lumbar surgery TECHNIQUE: A single lateral projection was obtained during surgery and this film was made available for dictation at this time. FINDINGS: Patient has changes of posterior lumbar fusion with pedicle screws at the L1, L2 and L3 vertebral bodies. A retraction device is seen in the dorsal surgical wound. The single projection is limited due to operative technique and positioning. SUMMARY: 1. Operative radiograph Radiologist: FRANK DEUTSCH MD, M.D. Attending: ANNA JOHNSON M.D. Requesting: ANNA JOHNSON M.D. Requesting Requesting ID: [id number] Attending Attending ID: [id number] Completed Time: 01/04/2014 3:20 PM Dictated Time: 01/04/2014 6:39 PM Transcribed Time: 01/04/2014 6:42 PM Signed by: FRANK DEUTSCH MD, M.D. on 01/04/2014 6:42 PM Report To 1 ID: Report To 1 Name: , Report To 1 FAX: Report To 2 ID: Report To 2 Name: , Report To 2 FAX: Report To 3 ID: Report To 3 Name: , Report To 3 FAX: NextGen Order #: us Historical Provider IMG XR PROCEDURES Final R esult * SPINE RADIOGRAPHY (01/04/2014 2:33 PM CDT) Anatomical Region Laterality Modality N/A Radiographic Ary ging 01/04/2014 2:33 PM CDT Narrative 01/04/2014 3:40 PM CDT Lumbar spine HISTORY: Intractable lumbar pain. Surgery. FINDINGS: Single portable lateral view lumbar spine shows metallic probe or localizer projecting posterior to the L1-L2 level. There is some curvilinear metallic opacities present posteriorly. ?? Degenerative changes throughout IMPRESSION: 1. Operative radiograph lumbar spine. DC/tab Radiologist: ANDRÉS ALLEN MD ?? Attending: ??ANNA JOHNSON M.D. Requesting: ANNA JOHNSON M.D. Requesting Fax: ?? Requesting ID: [id number] Attending Fax: ?? Attending ID: ?? [id number] Completed Time: ?? 01/04/2014 2:33 PM Dictated Time: ?01/04/2014 2:59 PM Transcribed Time: 01/04/2014 3:34 PM Signed by: ?ANDRÉS ALLEN MD ?? on 01/04/2014 3:40 PM Report To 1 ID: Report To 1 Name: , Report To 1 FAX: Report To 2 ID: Report To 2 Name: , Report To 2 FAX: Report To 3 ID: Report To 3 Name: , Report To 3 FAX: NextGen Order #: Procedure Note Provider, MD Dee - 11/28/2016 Lumbar spine HISTORY: Intractable lumbar pain. Surgery. FINDINGS: Single portable lateral view lumbar spine shows metallic probe or localizer projecting posterior to the L1-L2 level. There is some curvilinear metallic opacities present posteriorly. Degenerative changes throughout IMPRESSION: 1. Operative radiograph lumbar spine. DC/tab Radiologist: ANDRÉS ALLEN MD Attending: ANNA JOHNSON M.D. Requesting: ANNA JOHNSON M.D. Requesting Requesting ID: [id number] Attending Attending ID: [id number] Completed Time: 01/04/2014 2:33 PM Dictated Time: 01/04/2014 2:59 PM Transcribed Time: 01/04/2014 3:34 PM Signed by: ANDRÉS ALLEN MD on 01/04/2014 3:40 PM Report To 1 ID: Report To 1 Name: , Report To 1 FAX: Report To 2 ID: Report To 2 Name: , Report To 2 FAX: Report To 3 ID: Report To 3 Name: , Report To 3 FAX: NextGen Order #: us Historical Provider MD IMG XR PROCEDURES Final R esult * Blood ABO, Rh, indirect ab screen (01/04/2014 1:21 PM CDT) ABO typing A HISTORICA L RESULTS Rho(D) typing Positive HISTOR ICAL RESULTS Sanju, indirect Negative HISTORICAL RESULTS Blood specimen (specimen) 01/04/2014 1:21 PM CDT Anna Johnson MD LAB BLOOD ORDERABLES Final R esult Performing Organization Address [facility] [place] de Phone Number HISTORICAL RESULTS * Blood glucose (01/04/2014 11:24 AM CDT) Glucose, POC, bld 107 70 - 140 mg/dl HISTORICAL RESULTS Blood specimen (specimen) 01/04/2014 11:24 AM CDT Anna Johnson MD LAB BLOOD ORDERABLES Final R esult Performing Organization Address [facility] Co de Phone Number HISTORICAL RESULTS * Blood glucose (01/04/2014 6:51 AM CDT) Glucose, POC, bld 130 70 - 140 mg/dl HISTORICAL RESULTS Blood specimen (specimen) 01/04/2014 6:51 AM CDT Anna Johnson MD LAB BLOOD ORDERABLES Final R esult Performing Organization Address [place]/[facility] Co de Phone Number HISTORICAL RESULTS * (ABNORMAL) Blood glucose (01/03/2014 9:13 PM CDT) Glucose, POC, bld 169(H) 70 - 140 mg/dl HISTORICAL RESULTS Blood specimen (specimen) 01/03/2014 9:13 PM CDT Anna Johnson MD LAB BLOOD ORDERABLES Final R [facility] Performing Organization Address [facility] de Phone Number HISTORICAL RESULTS * (ABNORMAL) Urinalysis (01/03/2014 5:45 PM CDT) Color, ur Yellow LightYellow, Yellow HISTORICAL RESULTS Clarity, ur Clear Clear HISTORIC AL RESULTS Specific gravity, ur 1.018 1.005 - 1.030 HISTORICAL RESULTS pH, ur 7.0 5.0 - 8.0 HISTORICAL RESULTS Leukocyte esterase, ur Negative Negative gali/mcl HISTORICAL RESULTS Nitrites, ur Negative Negative HISTORI CAMILA RESULTS Protein, ur Negative Negative mg/dl HISTORICAL RESULTS Glucose, ur, quant Normal Normal mg/dl HISTORICAL RESULTS Ketones, ur, quant Negative Negative mg/dl HISTORICAL RESULTS Urobilinogen, quant, ur 2.0(A) Normal mg/dl HISTORICAL RESULTS Bilirubin, ur Negative Negative mg/dl HISTORICAL RESULTS U Blood Negative Negative HISTORICAL RESULTS Urine 01/03/2014 5:45 PM CDT Anna Johnson MD LAB BLOOD ORDERABLES Final R [facility] Performing Organization Address [facility] de Phone Number HISTORICAL RESULTS * (ABNORMAL) Blood cell count (CBC), morphologic exam (01/03/2014 5:43 PM CDT) WBC 10.0 4.5 - 11.0 K/cumm HISTORICAL RESULTS RBC 5.35 4.50 - 6.20 M/cumm HISTORICAL RESULTS Hgb 15.1 13.0 - 17.0 g/dl HISTORICAL RESULTS Hct 46.3 39.0 - 52.0 % HISTORICAL RESULTS MCV 86.6 80.0 - 100.0 fl HISTORICAL RESULTS MCH 28.1 27.0 - 33.0 pg HISTORICAL RESULTS MCHC 32.5 32.0 - 36.0 g/dl HISTORICAL RESULTS Rdw 14.4 11.5 - 14.5 % HISTORICAL RESULTS Platelets 402(H) 140 - 400 K/cumm HISTORICAL RESULTS MPV 7.5 7.4 - 10.4 fl HISTORICAL RESULTS Neutrophils 61.8 42.0 - 75.0 % HISTORICAL RESULTS Lymphocytes 22.4 21.0 - 51.0 % HISTORICAL RESULTS Monos 12.2(H) 2.0 - 9.0 % HISTORICAL RESULTS Eosinophils 3.1 0.0 - 10.0 % HISTORICAL RESULTS Basophils 0.5 0.0 - 1.0 % HISTORICAL RESULTS Neutrophils, abs 6.2 1.8 - 7.7 K/cumm HISTORICAL RESULTS Lymphocytes, abs 2.2 1.0 - 4.8 K/cumm HISTORICAL RESULTS Monocytes, absolute 1.2(H) 0.0 - 0.8 K/cumm HISTORICAL RESULTS Eosinophils, abs 0.3 0.0 - 0.5 K/cumm HISTORICAL RESULTS Basophils, abs 0.0 0.0 - 0.2 K/cumm HISTORICAL RESULTS Blood specimen (specimen) 01/03/2014 5:43 PM CDT Anna Johnson MD LAB BLOOD ORDERABLES Final R esult HISTORICAL RESULTS * Plasma prothrombin time (PT) (01/03/2014 5:43 PM CDT) Prothrombin time (PT) 13.1 11.7 - 14.8 seconds HISTORICAL RESULTS INR 1.0 0.9 - 1.2 HISTORICAL RESULTS Comment: INDICATION: ORTHOPEDIC Total Hip and Knee Arthroplasty ?1.8 to 2.6 Hip Fracture ?1.8 to 2.6 CARDIOLOGY Atrial Fibrillation ? 2.0 to 3.0 Cardiomyopathy ?2.0 to 3.0 Myocardial Infarction ?2.0 to 3.0 Bioprosthetic Heart Valve ? 2.0 to 3.0 Mechanical Valve Replacement ?2.[address] [facility] Mechanical Aortic Valve ?2.0 to 3.0 TREATMENT OF VENOUS THRMBOSIS Deep Vein Thrombosis ? 2.0 to 3.0 Pulmonary Embolism ? 2.0 to 3.0 Plasma 01/03/2014 5:43 PM CDT Nik Awad MD LAB BLOOD ORDERABLES Final R [facility] Performing Organization Address [facility] de Phone Number HISTORICAL RESULTS * Plasma partial thromboplastin time (PTT) (01/03/2014 5:43 PM CDT) APTT 25.0 24.0 - 36.1 seconds HISTORICAL RESULTS Comment: ? Therapeutic Heparin Range: ??60-100 seconds Plasma 01/03/2014 5:43 PM CDT Nik Awad MD LAB BLOOD ORDERABLES Final R [facility] Performing Organization Address [facility] de Phone Number HISTORICAL RESULTS * Blood glucose (01/03/2014 5:40 PM CDT) Glucose, POC, bld 87 70 - 140 mg/dl HISTORICAL RESULTS Blood specimen (specimen) 01/03/2014 5:40 PM CDT Anna Johnson MD LAB BLOOD ORDERABLES Final R esult Performing Organization Address [facility] de Phone Number HISTORICAL RESULTS * CT Lumbar Spine WO Contrast (01/03/2014 5:01 PM CDT) Anatomical Region Laterality Modality Spine N/A Computed Tomogra phy 01/03/2014 5:01 PM CDT Narrative 01/04/2014 3:50 PM CDT EXAM: CT lumbar spine without contrast HISTORY: Back pain. TECHNIQUE: Standard CT examination of the lumbar spine is performed without contrast. FINDINGS: There is a curvature of the lumbar spine which is convex to the left. ?? There is severe disc space narrowing noted at L1-L2, and vacuum disc phenomenon with rather severe marginal osteophyte formation at L2-L3 and L5-S1. ??Endplate sclerosis noted at L1-L3. ??The conus ends at L1 and is unremarkable. ??Right-sided foraminal narrowing is severe at L5-S1, and moderate at L2-L3 and L3-L4 as well as L4-L5 and L1-L2. ?? Left-sided foraminal narrowing is moderate at L1-L2, and moderate to severe at L2-L3, moderate at L5-S1, and mild/moderate at L3-L5. AXIAL IMAGES: Atherosclerotic calcifications present in the aorta and its branches. T12-L1: There is a disc bulge. ??There is bilateral facet joint hypertrophy. ??The canal is normal. ?? L1-L2: There is bilateral facet joint hypertrophy. ??There is moderate canal stenosis. L2-L3: There is a right paracentral disc herniation with severe canal stenosis. ??This contributes to right-sided foraminal narrowing. L3-L4: ??There is a disc bulge. ??There is bilateral facet joint hypertrophy. ??The canal is normal. ?? L4-L5: There is left paracentral disc protrusion. ??There is bilateral facet joint hypertrophy. ??Canal is normal. L5-S1: There is bilateral facet joint hypertrophy. ??The canal is normal. IMPRESSION: 1. 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 ??Additional degenerative changes as described in detail above. ?? /[facility] Radiologist: NINOSKA ACUNA ?? Attending: ??ANNA JOHNSON M.D. Requesting: NINOSKA ACUNA Requesting Fax: ?? Requesting ID: [id number] Attending Fax: ?? Attending ID: ?? [id number] Completed Time: ?? 01/03/2014 5:01 PM Dictated Time: ?01/04/2014 08:37 AM Transcribed Time: 01/04/2014 09:23 AM Signed by: ?NINOSKA ACUNA. ?? on 01/04/2014 3:50 PM Report To 1 ID: Report To 1 Name: , Report To 1 FAX: Report To 2 ID: Report To 2 Name: , Report To 2 FAX: Report To 3 ID: Report To 3 Name: , Report To 3 FAX: NextGen Order #: Procedure Note Provider, MD Dee - 11/28/2016 EXAM: CT lumbar spine without contrast HISTORY: Back pain. TECHNIQUE: Standard CT examination of the lumbar spine is performed without contrast. FINDINGS: There is a curvature of the lumbar spine which is convex to the left. There is severe disc space narrowing noted at L1-L2, and vacuum disc phenomenon with rather severe marginal osteophyte formation at L2-L3 and L5-S1. Endplate sclerosis noted at L1-L3. The conus ends at L1 and is unremarkable. Right-sided foraminal narrowing is severe at L5-S1, and moderate at L2-L3 and L3-L4 as well as L4-L5 and L1-L2. Left-sided foraminal narrowing is moderate at L1-L2, and moderate to severe at L2-L3, moderate at L5-S1, and mild/moderate at L3-L5. AXIAL IMAGES: Atherosclerotic calcifications present in the aorta and its branches. T12-L1: There is a disc bulge. There is bilateral facet joint hypertrophy. The canal is normal. L1-L2: There is bilateral facet joint hypertrophy. There is moderate canal stenosis. L2-L3: There is a right paracentral disc herniation with severe canal stenosis. This contributes to right-sided foraminal narrowing. L3-L4: There is a disc bulge. There is bilateral facet joint hypertrophy. The canal is normal. L4-L5: There is left paracentral disc protrusion. There is bilateral facet joint hypertrophy. Canal is normal. L5-S1: There is bilateral facet joint hypertrophy. The canal is normal. IMPRESSION: 1. 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 Additional degenerative changes as described in detail above. /[facility] Radiologist: NINOKSA ACUNA Attending: ANNA JOHNSON M.D. Requesting: NINOSKA ACUNA Requesting Requesting ID: [id number] Attending Attending ID: [id number] Completed Time: 01/03/2014 5:01 PM Dictated Time: 01/04/2014 08:37 AM Transcribed Time: 01/04/2014 09:23 AM Signed by: NINOSKA ACUNA on 01/04/2014 3:50 PM Report To 1 ID: Report To 1 Name: , Report To 1 FAX: Report To 2 ID: Report To 2 Name: , Report To 2 FAX: Report To 3 ID: Report To 3 Name: , Report To 3 FAX: NextGen Order #: us Historical Provider MD YO CT PROCEDURES Final R esult * Myelogram Lumbar S&I (01/03/2014 4:54 PM CDT) Anatomical Region Laterality Modality Spine N/A X-Ray Angiograph y 01/03/2014 4:54 PM CDT Narrative 01/04/2014 3:46 PM CDT Lumbar spine myelogram: HISTORY: ??Intractable back pain. CONSENT: ??The risks and benefits of myelogram including, but not limited to, infection, bleeding, seizure, epidural hematoma, headache, nausea, vomiting, irritation or damage to nerves causing pain or permanent injury, confusion, and hallucinations and/or reaction to the contrast or local medication were discussed with the patient. ??The patient gave informed verbal and written consent. The patient acknowledged understanding and wished to proceed. Attending physician: Dr. Ninoska Acuna was present for the entire procedure. TECHNIQUE: ??The L3-4 level was localized with fluoroscopy. The skin overlying this level was then sterilely prepped, draped, and infiltrated with 1% lidocaine for local anesthesia. Under fluoroscopic guidance, a 24 gauge 3.5 inch spinal needle was inserted into the thecal sac at this level and 10 cc of Omnipaque 180 mg L per cubic centimeter was instilled. The contrast was pooled into the lumbar region of the patient and prone images were obtained. Fluoroscopic images were obtained. After the fluoroscopic images were obtained, the patient was transferred to CT. Axial images (with multiplanar reformations) were then performed. The patient tolerated the procedure well. The patient was then transferred to the nursing area for further observation and two hours bedrest. FINDINGS: ??Disc space narrowing and vacuum disc phenomenon is noted at L5-S1, L1-L2 and L2-L3. ??Ventral extradural defect is noted at L1-L2 and L2-L3. ??Severe canal stenosis is suggested at L2-L3. ?? IMPRESSION: 1. ??Disc space narrowing as described above with canal stenosis noted most prominently at L2-L3 and L1-L2. ?? SH/mvb Radiologist: NINOSKA ACUNA ?? Attending: ??ANNA JOHNSON M.D. Requesting: ANNA JOHNSON M.D. Requesting Fax: ?? Requesting ID: [id number] Attending Fax: ?? Attending ID: ?? [id number] Completed Time: ?? 01/03/2014 4:54 PM Dictated Time: ?01/04/2014 08:40 AM Transcribed Time: 01/04/2014 09:23 AM Signed by: ?NINOSKA ACUNA ?? on 01/04/2014 3:46 PM Report To 1 ID: Report To 1 Name: , Report To 1 FAX: Report To 2 ID: Report To 2 Name: , Report To 2 FAX: Report To 3 ID: Report To 3 Name: , Report To 3 FAX: NextGen Order #: Procedure Note Provider, MD Dee - 11/28/2016 Lumbar spine myelogram: HISTORY: Intractable back pain. CONSENT: The risks and benefits of myelogram including, but not limited to, infection, bleeding, seizure, epidural hematoma, headache, nausea, vomiting, irritation or damage to nerves causing pain or permanent injury, confusion, and hallucinations and/or reaction to the contrast or local medication were discussed with the patient. The patient gave informed verbal and written consent. The patient acknowledged understanding and wished to proceed. Attending physician: Dr. Ninoska Acuna was present for the entire procedure. TECHNIQUE: The L3-4 level was localized with fluoroscopy. The skin overlying this level was then sterilely prepped, draped, and infiltrated with 1% lidocaine for local anesthesia. Under fluoroscopic guidance, a 24 gauge 3.5 inch spinal needle was inserted into the thecal sac at this level and 10 cc of Omnipaque 180 mg L per cubic centimeter was instilled. The contrast was pooled into the lumbar region of the patient and prone images were obtained. Fluoroscopic images were obtained. After the fluoroscopic images were obtained, the patient was transferred to CT. Axial images (with multiplanar reformations) were then performed. The patient tolerated the procedure well. The patient was then transferred to the nursing area for further observation and two hours bedrest. FINDINGS: Disc space narrowing and vacuum disc phenomenon is noted at L5-S1, L1-L2 and L2-L3. Ventral extradural defect is noted at L1-L2 and L2-L3. Severe canal stenosis is suggested at L2-L3. IMPRESSION: 1. Disc space narrowing as described above with canal stenosis noted most prominently at L2-L3 and L1-L2. SH/mvb Radiologist: NINOSKA ACUNA Attending: ANNA JOHNSON M.D. Requesting: ANNA JOHNSON M.D. Requesting Requesting ID: [id number] Attending Attending ID: [id number] Completed Time: 01/03/2014 4:54 PM Dictated Time: 01/04/2014 08:40 AM Transcribed Time: 01/04/2014 09:23 AM Signed by: NINOSKA ACUNA on 01/04/2014 3:46 PM Report To 1 ID: Report To 1 Name: , Report To 1 FAX: Report To 2 ID: Report To 2 Name: , Report To 2 FAX: Report To 3 ID: Report To 3 Name: , Report To 3 FAX: NextGen Order #: Historical Provider MD YO IR PROCEDURES Final R esult * XR Chest 1 View (01/03/2014 3:44 PM CDT) Anatomical Region Laterality Modality Body, Chest N/A Radiographic Ary ging 01/03/2014 3:44 PM CDT Narrative 01/04/2014 8:51 AM CDT Single view chest: 01/03/2014 HISTORY: Preoperative. FINDINGS: AP supine radiographs of the chest are reviewed. ??There are no prior studies available for comparison purposes. ??The heart size is mildly enlarged although this is at least in part accentuated by the AP supine technique. ??There are multiple old healed left inferolateral rib fractures noted. ??Some blunting/indistinctness at the left cardiophrenic angle may simply reflect pleural/parenchymal scarring at this site. ??Are there prior studies available for comparison? ??Elsewhere, the lungs are clear. ??The pulmonary vascularity is unremarkable. IMPRESSION: 1. Mild cardiomegaly, accentuated by the technique, as discussed. 2. Multiple old healed left inferolateral rib fractures. ??Adjacent pleural/parenchymal disease may simply reflect scarring at this site. ?? Comparison to prior radiographs would be helpful. ??The lungs are otherwise clear. ?? SS/mvb Radiologist: NIK MATA MD ?? Attending: ??ANNA JOHNSON M.D. Requesting: NIK AWAD Requesting Fax: ?? Requesting ID: [id number] Attending Fax: ?? Attending ID: ?? [id number] Completed Time: ?? 01/03/2014 3:44 PM Dictated Time: ?01/03/2014 6:21 PM Transcribed Time: 01/04/2014 08:20 AM Signed by: ?NIK MATA MD ?? on 01/04/2014 08:51 AM Report To 1 ID: Report To 1 Name: , Report To 1 FAX: Report To 2 ID: Report To 2 Name: , Report To 2 FAX: Report To 3 ID: Report To 3 Name: , Report To 3 FAX: NextGen Order #: Procedure Note Provider, MD Dee - 11/28/2016 Single view chest: 01/03/2014 HISTORY: Preoperative. FINDINGS: AP supine radiographs of the chest are reviewed. There are no prior studies available for comparison purposes. The heart size is mildly enlarged although this is at least in part accentuated by the AP supine technique. There are multiple old healed left inferolateral rib fractures noted. Some blunting/indistinctness at the left cardiophrenic angle may simply reflect pleural/parenchymal scarring at this site. Are there prior studies available for comparison? Elsewhere, the lungs are clear. The pulmonary vascularity is unremarkable. IMPRESSION: 1. Mild cardiomegaly, accentuated by the technique, as discussed. 2. Multiple old healed left inferolateral rib fractures. Adjacent pleural/parenchymal disease may simply reflect scarring at this site. Comparison to prior radiographs would be helpful. The lungs are otherwise clear. SS/mvb Radiologist: NIK MATA MD Attending: ANNA JOHNSON M.D. Requesting: NIK AWAD Requesting Requesting ID: [id number] Attending Attending ID: [id number] Completed Time: 01/03/2014 3:44 PM Dictated Time: 01/03/2014 6:21 PM Transcribed Time: 01/04/2014 08:20 AM Signed by: NIK MATA MD on 01/04/2014 08:51 AM Report To 1 ID: Report To 1 Name: , Report To 1 FAX: Report To 2 ID: Report To 2 Name: , Report To 2 FAX: Report To 3 ID: Report To 3 Name: , Report To 3 FAX: NextGen Order #: us Historical Provider IMG XR PROCEDURES Final R esult * XR Spine Lumbar 2 Or 3 View (01/03/2014 3:29 PM CDT) Anatomical Region Laterality Modality Spine N/A Radiographic Ary ging 01/03/2014 3:29 PM CDT Narrative 01/04/2014 3:50 PM CDT EXAM: ??Three views lumbar spine: HISTORY: ??Pain. TECHNIQUE: Three views of the lumbar spine are submitted for interpretation. FINDINGS: ??There are numerous areas of disc space narrowing and marginal vertebral body osteophyte formation noted all levels of the lumbar spine. ??Vacuum disc phenomenon is noted at L2-L3 and L5-S1. ?? There is curvature of the lumbar spine convex to the left. ??Marginal osteophytes are noted all levels of the lumbar spine. ??Endplate sclerosis is noted at all levels of the lumbar spine. ??Facet joint sclerosis is noted at all levels as well. ??Findings suggestive of a ventral hernia repair are noted. IMPRESSION: 1. Multilevel degenerative change. /mvb Radiologist: NINOSKA ACUNA ?? Attending: ??ANNA JOHNSON M.D. Requesting: ANNA JOHNSON M.D. Requesting Fax: ?? Requesting ID: [id number] Attending Fax: ?? Attending ID: ?? [id number] Completed Time: ?? 01/03/2014 3:29 PM Dictated Time: ?01/03/2014 5:03 PM Transcribed Time: 01/04/2014 07:10 AM Signed by: ?NINOSKA ACUNA ?? on 01/04/2014 3:50 PM Report To 1 ID: Report To 1 Name: , Report To 1 FAX: Report To 2 ID: Report To 2 Name: , Report To 2 FAX: Report To 3 ID: Report To 3 Name: , Report To 3 FAX: NextGen Order #: Procedure Note Provider, MD Dee - 11/28/2016 EXAM: Three views lumbar spine: HISTORY: Pain. TECHNIQUE: Three views of the lumbar spine are submitted for interpretation. FINDINGS: There are numerous areas of disc space narrowing and marginal vertebral body osteophyte formation noted all levels of the lumbar spine. Vacuum disc phenomenon is noted at L2-L3 and L5-S1. There is curvature of the lumbar spine convex to the left. Marginal osteophytes are noted all levels of the lumbar spine. Endplate sclerosis is noted at all levels of the lumbar spine. Facet joint sclerosis is noted at all levels as well. Findings suggestive of a ventral hernia repair are noted. IMPRESSION: 1. Multilevel degenerative change. SH/mvb Radiologist: NINOSKA ACUNA Attending: ANNA JOHNSON M.D. Requesting: ANNA JOHNSON M.D. Requesting Requesting ID: [id number] Attending Attending ID: [id number] Completed Time: 01/03/2014 3:29 PM Dictated Time: 01/03/2014 5:03 PM Transcribed Time: 01/04/2014 07:10 AM Signed by: NINOSKA ACUNA on 01/04/2014 3:50 PM Report To 1 ID: Report To 1 Name: , Report To 1 FAX: Report To 2 ID: Report To 2 Name: , Report To 2 FAX: Report To 3 ID: Report To 3 Name: , Report To 3 FAX: NextGen Order #: Historical Provider MD YO XR PROCEDURES Final R esult * Blood glucose (01/03/2014 1:32 PM CDT) [facility] Glucose, POC, bld 114 70 - 140 mg/dl HISTORICAL RESULTS Blood specimen (specimen) 01/03/2014 1:32 PM CDT Anna Johnson MD LAB BLOOD ORDERABLES [facility] Performing Organization Address City/[facility] Co de Phone Number HISTORICAL RESULTS * Serum 1, 25-dihydroxycholecalciferol (vitamin D) (01/03/2014 12:43 PM CDT) [facility] 1-25-OH Vit D 41 18 - 64 pg/ml HISTORICAL RESULTS Serum 01/03/2014 12:4 3 PM CDT Narrative HISTORICAL RESULTS - 01/05/2014 5:58 AM CDT Test performed at [facility] Dept of Lab Medicine and Pathology, [address] [place] [address], [facility]. Anna Johnson MD LAB BLOOD ORDERABLES Final [facility] Performing Organization Address [facility] Co de Phone Number HISTORICAL RESULTS * (ABNORMAL) Plasma basic metabolic panel (01/03/2014 12:43 PM CDT) [facility] Sodium 141 136 - 146 mmol/L HISTORICAL RESULTS K, pl 4.3 3.3 - 4.9 mmol/L HISTORICAL RESULTS Chloride 105 98 - 108 mmol/L HISTORICAL RESULTS CO2 29 22 - 33 mmol/L HISTORICAL RESULTS BUN 21(H) 7 - 18 mg/dl HISTORICAL RESULTS Glucose 96 70 - 140 mg/dl HISTORICAL RESULTS Comment: Glucose is assumed to be non-fasting. ?? Fasting Glucose normal ranges are: 0 days - 2 months: ? 40 mg/dL - 100 mg/dL 2 months - 999 years: ?70 mg/dL - 99 mg/dL Creatinine 1.12 0.50 - 1.50 mg/dl HISTORICAL RESULTS eGFR >60 ml/min/1.7 3 m2 HISTORICAL RESULTS Comment: GFR Reference Range: = > 60 mL/min/1.73 m2 This result has been calculated assuming the patient is Non-. ??If the patient is , please multiply this result by 1.21. The GFR value is not recommended for medication dose adjustment for renal function, creatinine clearance values should be used. Calcium 9.3 8.5 - 10.5 mg/dl HISTORICAL RESULTS Plasma 01/03/2014 12:4 3 PM CDT Narrative HISTORICAL RESULTS - 01/03/2014 1:37 PM CDT NO PAGE PATIENT IS OOR us Anna Johnson MD LAB BLOOD ORDERABLES Final R esult HISTORICAL RESULTS * ELECTROCARDIOGRAPHY (ECG) (01/03/2014) Narrative 01/03/2014 Ordered by an unspecified provider. 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
--- OUTSIDE RECORDS SUMMARY | 2024-07-24 00:13 | XMS_ITS | Encounter Summary ---
Author Organization [facility] Facility Care Team Providers Care Rigging Man Name Role Phone Unavailable Primary Care Provider Unavailabl e Encounter Details Date Type Department Care Team (Late st Contact Info) Description 12/18/2009 7:00 AM CDT - 12/18/2009 4:00 PM T Hospital Encounter [facility] Lay Re[facility]ledo [facility] [address] [facility] [address] [place] [address] Malignant neoplasm of pancreas (HCC); Disorder of liver; Arthropathy; Essential hypertension Social History Tobacco Use Types Packs/Day Years Used Date Smoking Tobacco: Never Assessed Sex and Gender Information Value Date Recorded Sex Assigned at Not on file Legal Sex 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
--- OUTSIDE RECORDS SUMMARY | 2024-07-24 00:13 | XMS_ITS | Encounter Summary ---
Author Organization [facility] Facility Care Team Providers Care Administration Vice President Name Role Phone Unavailable Primary Care Provider Unavailabl e Encounter Details Date Type Department Care Team (Late st Contact Info) Description 07/08/2010 - 07/08/2010 11:59 PM UPHOLSTERY ESTIMATOR Hospital Encounter [facility] Nik Hernandez MD [address] [facility] [address] [place] [address] Disease of pancreas Social History Tobacco Use Types Packs/Day Years Used Date Smoking Tobacco: Never Assessed Sex and Gender Information Value Date Recorded Sex Assigned at Not on file Legal Sex Male 3:18 AM UPHOLSTERY ESTIMATOR Gender Identity Not on file Sexual Orientation Not on file documented as of this encounter Plan of Treatment Not on file documented as of this encounter Visit Diagnoses Diagnosis Disease of pancreas Unspecified disease of pancreas documented in this encounter
--- OUTSIDE RECORDS SUMMARY | 2024-07-24 00:13 | XMS_ITS | Encounter Summary ---
Author Organization [facility] Facility Care Team Providers Care Dirt Shoveler Name Role Phone Unavailable Primary Care Provider Unavailabl e Encounter Details Date Type Department Care Team (Latest Contact Info) Description 10/28/2010 - 10/28/2010 11:59 PM CDT Hospital [facility] CLIN[facility] Lackey MD [address] [facility] [address] [place] [address] Encounter for fitting and adjustment of non-vascular catheter NEC; Seroma complicating a procedure; Surgical operation and procedure causing abnormal patient reaction, or later complication Social History Tobacco Use Types Packs/Day Years Used Date Smoking Tobacco: Never Assessed Sex and Gender Information Value Date Recorded Sex Assigned at Not on file Legal 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
--- OUTSIDE RECORDS SUMMARY | 2024-07-24 00:13 | XMS_ITS | Encounter Summary ---
Author Organization [facility] Facility Care Team Providers Care Tile Picker Name Role Phone Unavailable Primary Care Provider Unavailabl e Encounter Details Date Type Department Care Team (Latest Contact Info) Description 08/14/2010 6:38 AM DISTRIBUTION TRANSFORMER ASSEMBLER - 08/21/2010 2:32 PM [facility] Hospital Encounter [facility] SALCON[facility] Lackey MD [address] [facility] [address] [place] [address] Benign neoplasm of pancreas, except islets of Langerhans; Pulmonary collapse; Atrial fibrillation (CMS/HCC) (HCC); Body mass index (BMI) of 45.0-49.9 in adult (HCC); Hyperpotassemia; Morbid obesity (HCC); Hypovolemia; Cardiac complication; Essential hypertension; Knee joint replaced by other means; Hypertrophy of prostate without urinary obstruction and other lower urinary tract symptoms (LUTS); Personal history of tobacco use, presenting hazards to health; Other and unspecified hyperlipidemia; Disorder of kidney and ureter; Other abnormal glucose; Removal of organ causing abnormal patient reaction, or later complication; Place of occurrence, residential institution Social History Tobacco Use Types Packs/Day Years Used Date Smoking Tobacco: Never Assessed Sex and Gender Information Value Date Recorded Sex Assigned at Not on file Legal Sex Male 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 Gender Identity Not on file Sexual Orientation Not on file documented as of this encounter Plan of Treatment Not on file documented as of this encounter Visit Diagnoses Diagnosis Benign neoplasm of pancreas, except islets of Langerhans Pulmonary collapse Atrial fibrillation (CMS/HCC) (HCC) Atrial fibrillation Body mass index (BMI) of 45.0-49.9 in adult (HCC) Hyperpotassemia Morbid obesity (HCC) Morbid obesity Hypovolemia Cardiac complication Cardiac complications Essential hypertension Unspecified essential hypertension Knee joint replaced by other means Hypertrophy of prostate without urinary obstruction and other lower urinary tract symptoms (LUTS) Personal history of tobacco use, presenting hazards to health Other and unspecified hyperlipidemia Disorder of kidney and ureter Unspecified disorder of kidney and ureter Other abnormal glucose Removal of organ causing abnormal patient reaction, or later complication Place of occurrence, residential institution documented in this encounter
--- OUTSIDE RECORDS SUMMARY | 2024-07-24 00:13 | XMS_ITS | Encounter Summary ---
Author Organization [facility] Healthcare Address [address] [place] [address] Care Team Providers Care Director Of Curriculum And Instruction Name Role Phone Unavailable Primary Care Provider Unavailabl e Encounter Details Date Type Department Care Team (Late st Contact Info) Description 10/03/2010 2:19 PM HIGH SCHOOL TEACHER - 10/03/2010 11:59 PM HIGH SCHOOL TEACHER Hospital Encounter [facility] Neoplasm by body site; Type 2 or unspecified type diabetes mellitus; Obesity Social History Tobacco Use Types Packs/Day Years Used Date Smoking Tobacco: Never Assessed Sex and Gender Information Value Date Recorded Sex Assigned at Not on file Legal Sex Male 3:18 AM HIGH SCHOOL TEACHER Gender Identity Not on file Sexual Orientation Not on file documented as of this encounter Plan of Treatment Not on file documented as of this encounter Visit Diagnoses Diagnosis Neoplasm by body site Neoplasm of unspecified nature, site unspecified Type 2 or unspecified type diabetes mellitus Obesity Obesity, unspecified documented in this encounter
--- OUTSIDE RECORDS SUMMARY | 2024-07-24 00:13 | XMS_ITS | Encounter Summary ---
Author Organization [facility] Healthcare Address [address] [place] [address] Care Team Providers Care Epic Prelude Analyst Name Role Phone Unavailable Primary Care Provider Unavailabl e Encounter Details Date Type Department Care Team ([facility] st Contact Info) Description 09/19/2010 8:18 AM TECHNICAL EDITOR - 09/19/2010 11:59 PM TECHNICAL EDITOR Hospital Encounter [facility] Neoplasm by body site Social History Tobacco Use Types Packs/Day Years Used Date Smoking Tobacco: Never Assessed Sex and Gender Information Value Date Recorded Sex Assigned at Not on file Legal Sex Male 3:18 AM TECHNICAL EDITOR Gender Identity Not on file Sexual Orientation Not on file documented as of this encounter Plan of Treatment Not on file documented as of this encounter Visit Diagnoses Diagnosis Neoplasm by body site Neoplasm of unspecified nature, site unspecified documented in this encounter
--- OUTSIDE RECORDS SUMMARY | 2024-07-24 00:13 | XMS_ITS | Encounter Summary ---
Author Organization [facility] Healthcare Address [address] [place] [address] Care Team Providers Care Balance Truer Name Role Phone Unavailable Primary Care Provider Unavailabl e Encounter Details Date Type Department Care Team ([facility] st Contact Info) Description 10/24/2010 1:21 PM CDT - 10/24/2010 11:59 PM CDT Hospital Encounter [facility] Neoplasm by body site; Type 2 or unspecified type diabetes mellitus; Obesity Social History Tobacco Use Types Packs/Day Years Used Date Smoking Tobacco: Never Assessed Sex and Gender Information Value Date Recorded Sex Assigned at Not on file Legal Sex 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
== END 2024-07-18 07:51 | disposition home or self-care (01) ==
LOC: CHSIMG 07:51
PROVIDERS: PCP Family Medicine; Visit Provider Orthopaedic Surgery
DX: M25.522 Pain in left elbow (principal)
CPT/HCPCS: 73080

== ENCOUNTER 2024-10-10 08:32 | Outpatient (CLI) | payer MEDICARE, SELFPAY ==
--- OUTSIDE RECORDS SUMMARY | 2024-10-10 09:01 | XMS_ITS | Clinical Summary ---
Author Organization [facility] Address [address] [place] [id number] Care Team Providers Care Patient Attendant Name Role Phone Unavailable Primary Care Provider Unavailabl e Social History Tobacco Use Types Packs/Day Years Used Date Smoking Tobacco: Never Assessed Sex and Gender Information Value Date Recorded Sex Assigned at Not on file Legal Sex Male 5:58 PM FISH BUTCHER Gender Identity Not on file Sexual Orientation Not on file Plan of Treatment Health Maintenance Due Date Last Done Comments DTaP, Tdap and Td Vaccines ( 1 - Tdap) 1961 Zoster Vaccines (1 of 2) 1992 Pneumococcal Vaccine: 65+ Ye ars (1 of 1 - PCV) 10/07/2007 RSV Immunization or 60+ Years (1 - 1-dose 75+ series) 2017 COVID-19 Vaccine ( - 2023-2 5 season) 2024 Influenza Adult (#1) 2024 Meningococcal B Vaccine Aged Out No l onger eligible based on patient's age to complete this topic Meningococcal Vaccine Aged Out No lucas keyanna eligible based on patient's age to complete this topic RSV Immunizations Under 20 Months Aged Out No longer eligible based on patient's age to complete this topic
--- OUTSIDE RECORDS SUMMARY | 2024-10-10 09:01 | XMS_ITS | Clinical Summary ---
Author Organization [facility] Address [address] [place] [address] Care Team Providers Care Can Vacuum Tester Name Role Phone Liset Haynes MD Primary Care Provider [phone] Allergies Active Allergy Reactions Criticality Noted Date Comments Adhesive Tape-Silicones Flushing (skin) Low Medications baclofen (LIORESAL) 10 mg tablet take 1 tablet by oral route 3 times every day 0 0 04/21/20 16 Active tamsulosin (FLOMAX) 0.4 mg capsule,exten ded release 24hr take 1 capsule by oral route every day 1/2 hour following the same meal each day 0 0 04/21/20 16 Active Additional Information Patient taking differently:0.4 mgoral 2 times daily, Informant: Pharmacy, Reported on 10/07/2024 insulin glargine (LANTUS SOLOSTAR) 100 unit/mL (3 mL) insulin pen inject by subcutaneous route as per insulin protocol 0 Syringe 0 04/21/20 16 Active metoprolol (LOPRESSOR) 25 mg tablet 1/2 tab bid 90 3 04/21/20 16 Active levothyroxine (SYNTHROID) 50 mcg tablet Take 1 tablet (50 mcg total) by mouth daily 08/08/19 20 Active albuterol HFA (PROVENTIL HFA,VENTOLIN HFA,PROAIR HFA) 90 mcg/actuation inhaler INHALE TWO PUFFS BY MOUTH EVERY 2-4 HOURS NEEDED FOR SHORTNESS OF BREATH OR WHEEZING 05/26/20 Active azelastine (ASTELIN) 137 mcg (0.1 %) nasal spray ADMINISTER 2 SPRAYS INTO EACH NOSTRIL EVERY 12 HOURS 06/26/20 Active OneTouch Ultra Test strip USE TO TEST BLOOD SUGAR THREE TIMES DAILY 04/20/20 Active Farxiga 5 mg tablet Take by mouth daily Active omeprazole (PriLOSEC) 20 mg capsule Take 1 capsule (20 mg total) by mouth daily 04/25/20 Active triamcinolone (KENALOG) 0.1 % cream Apply topically 2 (two) times a day 05/26/20 Active atorvastatin (LIPITOR) 20 mg tablet Take 1 tablet (20 mg total) by mouth daily 07/11/20 Active Trelegy Ellipta 200-62.5-25 mcg inhaler Inhale 1 puff daily 06/19/20 Active insulin lispro (HumaLOG, ADMELOG) 100 unit/mL pen for injection Inject 8-10 Units under the skin 3 (three) times a day with meals 05/12/20 Active pregabalin (LYRICA) 150 mg capsule Take 1 capsule (150 mg total) by mouth daily 05/13/20 Active acetaminophen (TYLENOL) 325 mg tabletIndicat ions:Pain Take 2 tablets (650 mg total) by mouth every 6 (six) hours as needed for pain 30 tablet 07/29/20 Active senna-docusat e (PERICOLACE) 8.6-50 mgIndications :constipation Take 1 tablet by mouth 2 (two) times a day 28 tablet 07/29/20 Active BD Blanca 2nd Gen Pen Needle 32 gauge x 5/32 needle DIRECTED FOUR TIMES DAILY WITH INSULIN 08/21/19 Active warfarin (COUMADIN) 5 mg tablet Take 1 tablet (5 mg total) by mouth daily Active amoxicillin-c lavulanate (AUGMENTIN) 500-125 mg per tablet Take by mouth daily 07/19/20 24 Active flecainide (TAMBOCOR) 50 mg tablet TAKE 1 TABLET BY MOUTH TWICE A DAY 180 tablet 2 09/16/19 25 Active docusate sodium (COLACE) 50 mg capsuleIndica tions:constip ation Take 1 capsule (50 mg total) by mouth 2 (two) times a day Active acidophilus-p ectin, citrus 100 million cell-10 mg capsule Take by mouth Active cholecalcifer ol, vitamin D3, (VITAJOY DAILY D ORAL) Take by mouth Ac tive vitamin B complex capsule Take 1 capsule by mouth daily Active alpha lipoic acid 50 mg capsule Take by mouth Active predniSONE (DELTASONE) 10 mg tablet Take 1 tablet (10 mg) by mouth daily Active cephalexin (KEFLEX) 500 mg capsule Take 1 capsule (500 mg total) by mouth 3 (three) times a day Active valACYclovir (VALTREX) 1 gram tablet Take 1 tablet (1,000 mg total) by mouth 3 (three) times a day Active doxycycline 100 mg tablet Take 1 tablet/capsule (100 mg total) by mouth every 12 (twelve) hours 04/25/20 23 025 Discontinued(T herapy completed) levETIRAcetam (KEPPRA) 500 mg tablet Take 1 tablet (500 mg total) by mouth 2 (two) times a day for 11 doses 11 tablet 07/29/20 025 Discontinued(T herapy completed) oxyCODONE (ROXICODONE) 5 mg immediate release tabletIndicat ions:Pain Take 1 tablet (5 mg total) by mouth every 4 (four) hours as needed for pain 5 tablet 07/29/20 025 Discontinued(T herapy completed) traMADoL (ULTRAM) 50 mg tablet Take 1 tablet (50 mg total) by mouth every 6 (six) hours as needed for pain 025 Discontinued(T herapy completed) flecainide (TAMBOCOR) 50 mg tablet TAKE 1 TABLET BY MOUTH TWICE A DAY 180 tablet 2 12/17/19 24 025 Discontinued Active Problems Problem Noted Date Diagnosed Date Dysphagia 09/17/2023 Encounter for medication review 07/28/2023 Assessment & Plan (07/28/2023 1:21 PM BACKHAUL DRIVER): 07/28 medications reviewed and updated through contact with patient's [facility] SAH (subarachnoid hemorrhage) 07/27/2023 Assessment & Plan (07/29/2023 7:30 AM BACKHAUL DRIVER): - Neurosurgery consulted - Repeat head CT [...] 07/27/2023 Assessment & Plan (07/27/2023 2:21 PM BACKHAUL DRIVER): - PRS consulted - s/p repair with 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 - Bacitracin TID x 3 days, then vaseline - HOB elevation - Pending recovery or discharge, please call [phone] or [phone] to schedule follow-up within 1-2 weeks to be seen by an BURT Left knee pain 07/27/2023 Assessment & Plan (07/28/2023 12:59 PM BACKHAUL DRIVER): - XR left knee: negative for acute fracture Polycythemia 07/27/2023 Assessment & Plan (07/28/2023 12:59 PM BACKHAUL DRIVER): #coagulopathy - last PE in per chart [...] 07/27/2023 Assessment & Plan (07/27/2023 2:50 PM BACKHAUL DRIVER): - continue home levothyroxine Elevated red blood cell count 07/21/2023 Closed fracture of left distal fibula 03/11/2019 Overview (03/11/2019): Added automatically from request for surgery [id number] Acute pain due to trauma 03/11/2019 Type 2 diabetes mellitus, wi th long-term current use of insulin 03/11/2019 Assessment & Plan (07/28/2023 1:07 PM BACKHAUL DRIVER): #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, [...] reducible Hyperlipidemia associated with type 2 diabetes m sheng 02/08/2019 Assessment & Plan (08/06/2021 12:23 PM BACKHAUL DRIVER): Cholesterol <200 mg/dL 142 137 R, CM 116 Low R 118 R, CM HDL > OR = 40 mg/dL 46 41 R, CM 34 Low R 27 Low R, CM Triglycerides <150 mg/dL 84 83 R, CM 80 R 117 R, CM LDL mg/dL (calc) 80 He remains at goal on lipitor 40 mg so will continue Assessment & Plan (08/15/2020 12:58 PM BACKHAUL DRIVER): He is on lipitor 20 mg= TC 151/HDL 41/ TG 105/ LDL 89 He has been averaging in the 80 range the past 3 years so am going to the 40 mg dosing to get it down below 70 as he has no sx on the 20 Assessment & Plan (08/17/2019 12:02 PM BACKHAUL DRIVER): TC 137/LDL 79 on lipitor 20 mg and at goal Assessment & Plan (02/08/2019 1:08 PM CDT): His LDL is at goal Presence of IVC filter 09/28/2018 Bruising 03/19/2017 Chronic anemia 03/19/2017 Edema 03/19/2017 Pulmonary embolism without acute cor pulmonale 0 02/10/2017 Assessment & Plan (07/28/2023 11:41 AM BACKHAUL DRIVER): - Hold warfarin - s/p IVC filter Assessment & Plan (07/21/2017 12:18 PM BACKHAUL DRIVER): Unfortunately, he needs anticoagulation. A recent venous [...] 01/20/2017 Assessment & Plan (08/17/2019 12:05 PM BACKHAUL DRIVER): 1. Normal global and regional left ventricular [...] medication Assessment & Plan (08/11/2018 10:38 AM BACKHAUL DRIVER): He remains on flecanide without sx; EKG last January= NSR; Holter in 2016= NSR, today EKG= NSR, 1st degree AVB; intervals ok; will continue warfarin more for 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, as he has been in rhythm since 2016 Assessment & Plan (07/21/2017 12:27 PM BACKHAUL DRIVER): No diagnostic ST changes. Global left ventricular [...] 01/20/2017 Assessment & Plan (07/27/2023 2:41 PM BACKHAUL DRIVER): See Pulmonary Embolism Assessment & Plan (01/20/2017 [...] elective Lexiscan nuclear stress test over at [facility] which is convenient. If this is negative and since pulmonary is no from there mechanism. It may be worthwhile to consider some type of an alternate exercise program such as swimming, i.e. water aerobic Pure hypercholesterolemia 01/20/2017 Assessment & Plan (07/27/2023 2:42 PM BACKHAUL DRIVER): - Continue home Lipitor Assessment & Plan (02/08/2019 1:06 PM CDT): SCRIBED Cholesterol, Total l - h 151 SCRIBED HDL l - h 45 SCRIBED LDL l - h 87 SCRIBED Triglycerides l - h 95 His LDL is at goal on lipitor 20 mg a day Assessment & Plan (08/11/2018 10:31 AM BACKHAUL DRIVER): Lipid profile today=TC 170/ HDL 55/ TG [...] lipitor Assessment & Plan (07/21/2017 12:22 PM BACKHAUL DRIVER): Todays lipid profile= TC 151/ HDL 45/ [...] 01/02 Assessment & Plan (07/27/2023 2:47 PM BACKHAUL DRIVER): - BMI 44.94 kg/m2 on admission Assessment & Plan (02/08/2019 2:11 PM CDT): He continues to work with diet and exercise Assessment & Plan (08/11/2018 10:35 AM BACKHAUL DRIVER): He continues to work with calorie restriction and ambulation Assessment & Plan (01/27/2018 11:21 AM CDT): He works with diet, exercise limited as he walks with a cane Assessment & Plan (07/21/2017 12:31 PM BACKHAUL DRIVER): He continues to work with diet Assessment & Plan (02/10/2017 1:56 PM CDT): Need for wt loss discussed. Recs: 1) continue diet and lifestyle modifications. Metastatic neoplasm 07/18/2016 Benign paroxysmal positional vertigo 09/20/2015 Pulmonary embolism 08/09/2015 Paroxysmal atrial fibrillation 08/09/2015 Assessment & Plan (07/27/2023 2:57 PM BACKHAUL DRIVER): - Continue home flecainide - Continue home metoprolol - suppressed on warfarin, flecainide; follows with cardiology outpatient - last TTE in 2019 w/ LVEF 55% and no obvious structural issues Assessment & Plan (08/06/2021 12:26 PM BACKHAUL DRIVER): He has had no recurrences since last year; echo normal, So I made no changes He is protected with Warfarin, on tambocor and metoprolol which I would continue Assessment & Plan (08/15/2020 12:39 PM BACKHAUL DRIVER): He has had recurrent episodes of atrial [...] 07/12/2015 Assessment & Plan (07/28/2023 11:47 AM BACKHAUL DRIVER): - 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 then per ID - doxycycline reordered Arthritis 12/17/2009 Hypertension 12/17/2009 Assessment & Plan (08/06/2021 12:26 PM BACKHAUL DRIVER): His BP remains at goal on the BB, so will continue Assessment & Plan (08/15/2020 12:34 PM BACKHAUL DRIVER): His blood pressure is at goal Assessment & Plan (08/17/2019 12:00 PM BACKHAUL DRIVER): His BP remains at goal Assessment & Plan (02/08/2019 1:05 PM CDT): His BP remains at goal Assessment & Plan (08/11/2018 10:26 AM BACKHAUL DRIVER): His BP is at goal Encounters Date Type Department Care Team Description 5 3:00 PM BACKHAUL DRIVER Office Visit [facility] Cardiology at [address] [place] [address] Collin Rojas MD Paroxysmal atrial fibrillation (HCC) (Primary Dx) 5 8:30 AM BACKHAUL DRIVER - 5 9:00 AM BACKHAUL DRIVER Surgery [facility] [address] [place] [phone] Taras Soriano MD ESOPHAGOGASTRODUODENOSCOPY ESOPHAGEAL GUIDE WIRE 5 7:46 AM BACKHAUL DRIVER Anesthesia Event [facility] [address] [place] [phone] Skyler Patricia MD [facility] [place], [place] 5 6:58 AM BACKHAUL DRIVER - 5 9:03 AM BACKHAUL DRIVER Hospital Encounter [facility] [address] [place] [phone] Taras Soriano MD Discharge Disposition: Discharge to home or self care 5 6:40 AM BACKHAUL DRIVER Lab [facility] Outpatient Lab [facility] [place] [phone] Pre-procedure lab exam; 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) 5 Telephone [facility] [address] [facility] [address] [place] [address] [place] [phone] Alina Martin RMA PRE PROCEDURE ASSESSMENT 5 Orders Only [facility] [address] [facility] [address]th [place] [address] [place] [address] Taras Soriano MD Esophageal dysphagia (Primary Dx); Pre-procedure lab exam; 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) from Last 3 Months Immunizations Immunization Administration Dates Next Due Influenza, Quadrivalent, Merle [...] PROCEDURE W/ LAPAROSCOPY SPLENECTOMY, TOTAL ANKLE SURGERY ESOPHAGOGASTRODUODENOSCOPY w/ endoflip and botox Medical History Medical History Date Comments Atrial fibrillation (HCC) Hyperlipidemia Dysphagia Hypothyroidism Type 2 diabetes mellitus (HCC) Hypertension GERD (gastroesophageal reflux disease) Arthritis Leg muscle spasm COPD (chronic obstructive pulmonary disease) (HC C) Social History Tobacco Use Types Packs/Day Years Used Date Smoking Tobacco: Former Smokeless Tobacco: Never Tobacco Cessation:Counseling Given: Not Answered Alcohol Use Standard Drinks/Week Comments No 0 (1 standard drink = 0.6 oz pur e alcohol) AUDIT-C Answer Date Recorded Q1: How often do you have a drink containing alc ohol? Monthly or less 09/05/2024 Q2: How many drinks containi ng alcohol do you have on a typical day when you are drinking? 1 or 2 09/05/2024 Q3: How often do you have si x or more drinks on one occasion? Never 09/05/2024 Personal Safety Answer Date Recorded Have you ever been in or are you currently in a harmful physical or emotional relationship or is someone making you feel afraid or unsafe? Denies 09/07/2024 Sex and Gender Information Value Date Recorded Sex Assigned at Not on file Legal Sex Male 3:18 AM BACKHAUL DRIVER Gender Identity Not on file Sexual Orientation Not on file Obstetrics History Last Filed Vital Signs Vital Sign Reading Time Taken Comments Blood Pressure 108/70 10/07/2024 2:53 PM BACKHAUL DRIVER Pulse 62 10/07/2024 2:53 PM BACKHAUL DRIVER Temperature 36.3 C (97.3 F) 09/07/2024 7:18 AM BACKHAUL DRIVER Respiratory Rate 18 09/07/2024 8:20 AM BACKHAUL DRIVER Oxygen Saturation 94% 10/07/2024 2:53 PM BACKHAUL DRIVER Inhaled Oxygen Concentration - - Weight 155.6 kg (343 lb) 10/07/2024 2:53 PM BACKHAUL DRIVER Height 188 cm (6' 2 ) 10/07/2024 2:53 PM BACKHAUL DRIVER Body Mass Index 44.04 10/07/2024 2:53 PM BACKHAUL DRIVER Plan of Treatment Health Maintenance Due Date [...] 07/27/2024 07/27/2023, 07/04, 10/21/2016 Fall Risk Assessment 09/07/2025 09/07/2024 DTaP/Tdap/Td Vaccine (3 - Td or Tdap) 07/27/2033 07/27/2023, 05/10/2013, 01/24/2004 Pneumococcal vaccine 65+ Completed 018, 07/31/2016, 05/10/2013 Zoster Vaccine Completed 08/22/2019, 06/09/2019 Procedures Procedure Name Priority Date/Time Associated Diagnosis Comments ENDO ADD ON ESOPHAGOGASTRODUODENOSCOPY INJECTION SUBMUCOSAL 09/07/2024 7:46 AM BACKHAUL DRIVER Esophageal dysphagia ESOPHAGOGASTRODUODENOSCOPY ESOPHAGEAL GUIDE WIRE 09/07/2024 7:46 AM BACKHAUL DRIVER Esophageal dysphagia EGD 09/07/2024 7:34 AM BACKHAUL DRIVER POCT GLUCOSE DEVICE Routine 09/07/2024 7:26 AM BACKHAUL DRIVER PROTIME-INR STAT 09/07/2024 6:48 AM BACKHAUL DRIVER Pre-procedure lab exam 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) EGFR STAT 07/27/2023 8:57 AM BACKHAUL DRIVER LIPID PANEL Routine 11/13/2020 8:46 AM CDT HEMOGLOBIN A1C STAT 03/11/2019 12:48 PM CDT from Last 3 Months or Most Recently Relevant to Health Maintenance Results * EGD (09/07/2024 7:34 AM BACKHAUL DRIVER) Anatomical Region Laterality Modality Other Narrative Procedure Note Taras Soriano MD - 09/07/2024 7:34 AM CST ENDOSCOPY LAB Patient Name: Neal Amaro Procedure Date: 09/07/2024 7:34 AM Admit Type: Outpatient Room: [facility] Date of : 1940 Instrument Name: [id number] Gender: Male Note Status: Finalized Procedure: Upper GI endoscopy Indications: Dysphagia, past diagnosis of 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 Referring MD: Leora [...] The patient tolerated the procedure well. Findings: Minor structural restriction is possible at the level of the upper sphincter. The esophageal mucosa was normal and the lumen was not dilated. There was no food residue in the lumen. A hypertonic lower esophageal sphincter was found. In view of proximally localized dysphagia, a guidewire was placed and the scope was withdrawn.Dilation was performed with a Savary dilator with mild resistance at 60 Fr.The LES area was successfully injected with 100 units botulinum toxin. The stomach was normal. The examined duodenum was normal. Impression: - Proximally localized dysphagia. Empiricallydilated with 60 Fr. Savary dilator. 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 Injected with botulinum toxin. - Normal stomach. - Normal examined duodenum. Recommendation: - Observe patient's clinical course followingtoday's procedure with dilation and botulinum toxininjection. Blood thinner can be resumed tonight. - Repeat upper endoscopy PRN for retreatment. Electronically signed by Quan Soriano MD Quan Soriano M.D. 09/07/2024 8:04:02 AM Number of Addenda: 0 Note Initiated On: 09/07/2024 7:34 AM Scope In: Scope Out: Taras Soriano MD ENDOSCOPY PROCEDURES Final Result * POCT glucose (09/07/2024 7:26 AM BACKHAUL DRIVER) [facility] Signature Glucose, POC 121 70 - 199 mg/dL Comment: For Glucose values <35 mg/dl when Hematocrit is >60 mg/dl,the test may not accurately detect significant hypoglycemia,and testing in the Laboratory should be considered if clinically indicated. Blood 09/07/2024 7:26 AM BACKHAUL DRIVER 09/07/2024 7:26 AM BACKHAUL DRIVER Taras Soriano MD LAB POCT ORDERABLES - DEVICE Final Result [facility] [address] [place] [address] * (ABNORMAL) Protime-INR (09/07/2024 6:48 AM BACKHAUL DRIVER) PT 13.1(H) 9.7 - 13.0 sec INR 1.21(H) 0.90 - 1.20 [facility] Comment: Interpretive data Oral anticoagulant therapeutic ranges: Venous thromboembolism prophylaxis or treatment: 2.0-3.0 CARDIOLOGY Standard range: 2.0-3.0 High-intensity range: 2.5-3.5 Refer to indication-specific guidelines for appropriate target ranges for prosthetic heart valve replacement. Current interpretive data was last revised on 2019. Blood 09/07/2024 6:48 AM BACKHAUL DRIVER 09/07/2024 7:01 AM BACKHAUL DRIVER Narrative [facility] - 09/07/2024 7:15 AM BACKHAUL DRIVER UPPER ENDOSCOPY SCHEDULED AT 8:30 AM Taras Sorinao MD LAB BLOOD ORDERABLES Final Result [facility] [address] Department [place] [address] * eGFR (07/27/2023 8:57 AM BACKHAUL DRIVER) eGFR 60 >=60 mL/min/1. 73 m2 [facility] Comment: Interpretive Data Reference Interval Normal >/= 90 mL/min/1.73m2 Mildly decreased* 60 - 89 mL/min/1.73m2 Mildly to moderately decreased 45 - 59 mL/min/1.73m2 Moderately to severely decreased 30 - 44 mL/min/1.73m2 Severely decreased 15 - 29 mL/min/1.73m2 Kidney Failure < 15 mL/min/1.73m2 *Relative to young adult level Estimated glomerular filtration rate is determined by the 2020 CKD-EPI equation recommended by the National Kidney Foundation (A Unifying Approach to GFR Estimation: Recommendations of the NKF-ASK Task Force on Reassessing the Inclusion of Race in Diagnosing Kidney Disease, JASN 202). The CKD-EPI equation should not be used for patients with unstable renal function and has not been validated in children and those over 70. Current interpretive data was last reviewed 2021. Blood 07/27/2023 8:57 AM BACKHAUL DRIVER 07/27/2023 9:13 AM BACKHAUL DRIVER us Carlota Blum MD LAB BLOOD ORDERABLES F inal Result Performing Organization Address City/State/[facility] Co de Phone Number [facility] Department [place] [address] * Lipid panel (11/13/2020 8:46 AM CDT) Cholesterol 142 <200 mg/dL [facility] HDL 46 > OR = 40 mg/dL [facility] Triglycerides 84 <150 mg/dL [facility] LDL 80 mg/dL (calc) [facility] Comment: Reference range: <100 Desirable range <100 mg/dL for primary prevention; <70 mg/dL for patients with CHD or diabetic patients with > or = 2 CHD risk factors. LDL-C is now calculated using the Norberto-Junior calculation, which is a validated novel method providing better accuracy than the Friedewald equation in the estimation of LDL-C. Norberto SS et al. TEGAN. 2013;310(19): 5216-9906 (http://education.RIISnet/faq/UTW749) Chol/HDL ratio 3.1 <5.0 (calc) [facility] Non-HDL, (LDL+VLDL) 96 <130 mg/dL (calc) [facility] Comment: For patients with diabetes plus 1 major ASCVD risk factor, treating to a non-HDL-C goal of <100 mg/dL (LDL-C of <70 mg/dL) is considered a therapeutic option. 11/13/2020 8:46 AM CDT 11/13/2020 8:47 AM CDT Narrative [facility] - 11/14/2020 2:24 AM CDT FASTING:YES FASTING: YES Norberto Cordero DO LAB BLOOD ORDERABLES Final Result [facility] [address] [facility] [place] [address] * (ABNORMAL) Hemoglobin A1c (03/11/2019 12:48 PM CDT) Hgb A1C 7.5(H) 4.0 - 5.6 % [facility] Estimated Average Glucose 169 mg/dL [facility] Comment: The ADA recommends reporting an estimated Average Glucose (eAG) with all Hemoglobin A1c results using the equation derived from a study of 507 normal and diabetic adults. Minority populations were underrepresented and children were not included. (Diabetes Care 31:3298-6498, 2008). The eAG is not equivalent to a fasting glucose. Blood specimen (specimen) 03/11/2019 12:48 PM CDT 03/11/2019 12:59 PM CDT Alvaro Ortez DO LAB BLOOD ORDERABLES Fi nal Result Performing Organization Address [facility] Co de Phone Number [facility] Department [place] [address] from Last 3 Months or Most Recently Relevant to Health Maintenance Insurance MEDICARE SOLUTIONS [facility] MEDICARE Address: [facility] [address] [place] [address] [employer] MEDICARE [facility] MEDICARE MEDICARE SOLUTIONS MEDICARE SOLUTIONS Advance Directives For more information, please contact: [phone] * Full Code (Latest Code Status on File) Date Activated Date Inactivated Comments 09/07/2024 7:02 AM 09/07/2024 1:03 PM * Full Code Date Activated Date Inactivated Comments 01/22/2024 12:34 PM 01/22/2024 7:05 PM * Full Code Date Activated Date Inactivated Comments 07/27/2023 11:35 AM 07/29/2023 6:04 PM * Full Code Date Activated Date Inactivated Comments 03/11/2019 9:03 PM 03/16/2019 8:04 PM Care Teams Can Vacuum Tester Relationship Specialty Start Date End Date Liset Haynes MD PCP - General Family Medicine 08/05/22
--- OUTSIDE RECORDS SUMMARY | 2024-10-10 09:01 | XMS_ITS | Continuity of Care Document ---
Author Organization [facility] Address [address] [place] [address] Phone Care Team Providers Care Technical Programs Manager Name Role Phone Julisa Mcintyre Unavailable [...] Diagnoses Date Provider Providers Copied on Encounter [facility], [address], [place], [place], [id number], [place] tel:[phone] [facility] No Information 0 Miguelina Egan. [address] , [address], [place], [address], [place]. tel:[phone] [facility], [address], [place], [place], [id number], [place] tel:[phone] [facility] No Information 0 Miguelina Rodriguezn. [address] , [address], [place], [place], Formerly named [facility], [place]. tel:[phone] [facility], [address], [place], [place], [address], [place] tel:[phone] [facility] No Information 0 Miguelina Julisa. [address] , [address], [place], [place], Formerly named [facility], [place]. tel:[phone] Office/outpati ent Visit, [facility], [address] [place] [address] [address], [place], [place], [id number], tel:[phone] [facility] No Information 0 Miguelina Rodriguezn. [address], [place], [place], Formerly named [facility], [place]. tel:[phone] Office/outpati ent Visit, [facility], [address], [place], [place], [id number], [place] tel:[phone] [facility] No Information Dec-2 9-200 9 Miguelina Julisa. [address] , [address], [place], [place], Formerly named [facility], [place]. tel:[phone] [facility], [address], [place], [place], [id number], [place] tel:[phone] [facility] No Information Oct-2 7-200 9 Miguelina Julisa. [address], [place], Formerly named [facility], [place]. tel:[phone] [facility], [address], [place], [place], [address], [place] tel:[phone] [facility] No Information Oct-0 6-200 9 Mcintyre Julisa. [address], [place], Formerly named [facility], [place]. tel:[phone] [facility], [address], [place], [place], [address], [place] tel:[phone] [facility] No Information Sep-2 4-200 9 Mcintyre Julisa. [address], [place], Formerly named [facility], [place]. tel:[phone] [facility], [address], [place], [place], [address], [place] tel:[phone] [facility] No Information Sep-2 3-200 9 Mcintyre Julisa. [address], [place], Formerly named [facility], [place]. tel:[phone] [facility], [address] [place] [address] [address], [place], [place], [address], [place] tel:[phone] [facility] No Information Sep-1 5-200 9 Miguelina Rodriguezn. [address], [place], Formerly named [facility], [place]. tel:[phone] [facility], [address], [place], [place], [address], [place] tel:[phone] [facility] No Information Sep-1 0-200 9 Miguelina Julisa. [address], [place], Formerly named [facility], [place]. tel:[phone] [facility], [address], [place], [place], [address], [place] tel:[phone] [facility] No Information Sep-0 9-200 9 Miguelina Julisa. [address], [place], Formerly named [facility], [place]. tel:[phone] Office Consultation [facility], [address], [place], [place], [address], [place] tel:[phone] [facility] No Information 9 Miguelina Egan. [address], [place], [address], [place]. tel:[phone] Family History Family Member Type Diagnosis Age At Onset No Information Payers Payer name Insurance type Covered alliance party ID Authoriza tion(s) No Information Social [...]
--- OUTSIDE RECORDS SUMMARY | 2024-10-10 09:01 | XMS_ITS | Clinical Summary ---
Author Organization [facility] Address [address] [place] [address] Care Team Providers Care Corporate Trainer Name Role Phone Liset Haynes MD Primary Care Provider [phone] Allergies No known active allergies Medications amiodarone (CORDARONE) 200 mg tablet Take 200 [...] mg Capsule Take 75 mg by mouth. Active tamsulosin (FLOMAX) 0.4 mg capsule Take 0.4 mg by mouth daily. Active Calcium-Vitamin D3-Vitamin K 500-500-40 mg-unit-mcg Tablet, Chewable Take by mouth. Activ e furosemide (LASIX) 20 mg tablet Take 20 mg by mouth daily. Active omeprazole (PriLOSEC) 40 mg Capsule, Delayed Release(E.C.) Take 40 mg by mouth daily. Active flecainide (TAMBOCOR) 50 mg Tablet 8 Active warfarin (COUMADIN) 5 mg tablet 8 Active fluticasone-ume clidinium-vilan terol (Trelegy Ellipta) 100-62.5-25 mcg Disk with Device Take 1 Puff by inhalation daily. Active dapagliflozin (Farxiga) 5 mg Tablet Take by mouth daily. Active levothyroxine 50 mcg tablet Take 50 mcg by mouth daily in the morning. Active Active Problems Problem Noted Date Diagnosed Date Elevated red blood cell count 07/21/2023 Morbid obesity with BMI of 40.0-44.9, adult 04/04 Chronic anemia 03/19/2017 Bruising 03/19/2017 Edema 03/19/2017 Obesity (BMI 35.0-39.9 without comorbidity) 03/03 Encounters Date Type Department Care Team Description 10/08/2024 External Device Data [facility] ABSTRACTION Provider, Abstract 09/21/2024 External Device Data [facility] ABSTRACTION Provider, Abstract 08/25/2024 External Device Data [facility] ABSTRACTION Provider, Abstract 07/14/2024 Orders Only [facility] Oncology and Hematology [facility] [address] [place] [address] Kendall Wills MD 07/12/2024 1:00 PM AUDIO VISUAL TECH Office Visit [facility] Oncology and Hematology [facility] [address] [place] [address] Kendall Wills MD Polycythemia, secondary (Primary Dx) from Last 3 Months Family History Medical [...] at Not on file Legal Sex Male 9:50 AM CDT Gender Identity Not on file Sexual Orientation Not on file Last Filed Vital Signs Vital Sign Reading Time Taken Comments Blood Pressure 116/61 07/12/2024 1:03 PM AUDIO VISUAL TECH Pulse 61 07/12/2024 1:03 PM AUDIO VISUAL TECH Temperature 36.5 C (97.7 F) 07/12/2024 1:03 PM AUDIO VISUAL TECH Respiratory Rate 17 07/12/2024 1:03 PM AUDIO VISUAL TECH Oxygen Saturation 93% 07/12/2024 1:0 3 PM AUDIO VISUAL TECH Inhaled Oxygen Concentration - - Weight 155.6 kg (343 lb) 07/12/2024 1:0 3 PM AUDIO VISUAL TECH Patient is unable to step on scale,patient gave me a verbal current weight from recent. Height 188 cm (6' 2 ) 06/08/2018 8:37 AM AUDIO VISUAL TECH Body Mass Index 44.04 06/08/2018 8:37 AM AUDIO VISUAL TECH Plan of Treatment Upcoming Encounters Date Type Department Care Team (Late st Contact Info) Description 01/10/2025 11:30 AM CDT Office Visit [facility] Oncology and Hematology - [place] [address] [facility] [address] [place] [address] Kendall Wills MD [address] [facility] [address] [place] [address] Health Maintenance Due Date Last Done Comments DIABETES ANNUAL FOOT EXAM 1960 DIABETES ANNUAL RETINAL EXAM 1960 DIABETES MICROALBUMIN ANNUAL SCREEN 1960 LDL CHOLESTEROL ANNUAL 1960 RSV VACCINE (60+ or ) (1 - 1-dose 75+ series) 2017 DIABETES HBA1C Q 6 MONTHS 09/11/2019 03/11/2019 INFLUENZA VACCINE (#1) 2024 9, 06/07/2018, 05/11/2017 COVID-19 Vaccine ( season) 2024, 09/13/2020 DTAP/TDAP/TD VACCINES (3 - T d or Tdap) 07/27/2033 07/27/2023, 05/10/2013, 01/24/2004 PNEUMOCOCCAL VACCINE 50+ YEARS Completed 0 08/03/2017, 07/31/2016, 05/10/2013 ZOSTER VACCINE Completed 08/22/2019, 06/09/2019 Procedures Procedure Name Priority Date/Time Associated Diagnosis Comments BASIC METABOLIC PANEL Routine 07/12/2024 3:16 PM AUDIO VISUAL TECH CBC WITH DIFFERENTIAL Routine 07/12/2024 2:23 PM AUDIO VISUAL TECH from Last 3 Months Results * BASIC METABOLIC PANEL (07/12/2024 3:16 PM AUDIO VISUAL TECH) Blood Kendall Wills MD CHEMISTRY ORDERABLES Final Resu lt * CBC WITH DIFFERENTIAL (07/12/2024 2:23 PM AUDIO VISUAL TECH) Blood Kendall Wills MD HEMATOLOGY ORDERABLES Final Res ult from Last 3 Months Insurance Care Teams Corporate Trainer Relationship Specialty Start Date End Date Liset Haynes MD [address] [place] [address] PCP - General Family Practice 01/06/23
--- OUTSIDE RECORDS SUMMARY | 2024-10-10 09:01 | XMS_ITS | Encounter Summary ---
Author Organization [facility] Address [address] [place] [address] Care Team Providers Care Neurosurgeon Name Role Phone Liset Haynes MD Primary Care Provider [phone] Encounter Details Date Type Department Care Team (Late Contact Info) Description 10/08/2024 External Device Data ST[facility] ABSTRACTION [...] CDT Office Visit [facility] Oncology and Hematology - [place] [address] [place] [address] [place] [address] [place] [address] documented as of this encounter Visit Diagnoses Not on filedocumented in this encounter Care Teams Neurosurgeon Relationship Specialty Start Date End Date Liset Haynes MD [address] [place] [address] PCP - General Family Practice 01/06/23 documented as of this encounter
--- OUTSIDE RECORDS SUMMARY | 2024-10-10 09:01 | XMS_ITS | Clinical Summary ---
Author Organization [facility] Address [address], [address] [address] Phone Care Team Providers Care Ceiling Installer Name Role Phone Christopher Diop MD Primary Care Provider [phone] Mayra Casper MD Unavailable [phone] Allergies No known active allergies Medications tamsulosin [...] Tabs by mouth daily. Active Probiotic Product ([employer] HEALTH PO) Take by mouth. Acti ve [...] Job Start Date Job End Date retired-from [employer] Not on file Not on file Not on file Last Filed Vital Signs Vital Sign Reading Time Taken Comments Blood Pressure 145/72 11/16/2017 11:46 AM CDT Pulse 54 11/16/2017 11:46 AM CDT Temperature 36 C (96.8 F) 11/16/2017 11:46 AM CDT Respiratory Rate 17 [...] age to complete this topic Care Teams Ceiling Installer Relationship Specialty Start Date End Date Christopher Diop MD [address] [place] [address] PCP - General Family Medicine 03/11/17 Mayra Casper MD [address] [place] [address] Consulting Physician Gastroenterology 07/30/17
--- OUTSIDE RECORDS SUMMARY | 2024-10-10 09:01 | XMS_ITS | Encounter Summary ---
Author Organization [facility] Address [address] [place] [address] Phone Care Team Providers Care Nuclear Monitoring Technician Name Role Phone Myron Diop MD Primary Care Provider [phone] Mayra Casper MD Unavailable [phone] Reason for Visit * Reason Comments Medication Refill Encounter Details Date Type Department Care Team (Late st Contact Info) Description 07/11/2020 Refill [facility] - Gastroenterology - [place] [address] [place] [address] [address], [facility] [address] [place] [address] Medication Refill Social History Tobacco Use Types [...] Job Start Date Job End Date retired-from [employer] Not on file Not on file Not on file documented as of this encounter Miscellaneous Notes * Telephone Encounter - Kelly Hodge CMA - 07/11/2020 1:17 PM TRAINING MANAGER Patients was notified on 03/29/2020 that refills after that were to go to primary care provider. verbalized understanding NING MANAGER documented in this encounter Plan of Treatment Not on file documented as of this encounter Visit Diagnoses Not on filedocumented in this encounter Care Teams Nuclear Monitoring Technician Relationship Specialty Start Date End Date Myron Diop MD [address] [place] [id number] PCP - General Family Medicine 03/11/17 Mayra Casper MD [address] [place] [address] Consulting Physician Gastroenterology 07/30/17 documented as of this encounter
--- OUTSIDE RECORDS SUMMARY | 2024-10-10 09:01 | XMS_ITS ---
Author Organization [facility] Address [address] [place] [address] Care Team Providers Care Hydraulics Teacher Name Role Phone Liset Haynes MD Primary Care Provider [phone] Active Problems Problem Noted Date Diagnosed Date Dysphagia 09/17/2023 Encounter for medication review 07/28/2023 Assessment & Plan (07/28/2023 1:21 PM PAINTER SKI EDGE): 07/28 medications reviewed and updated through contact with patient's [facility] (subarachnoid hemorrhage) 07/27/2023 Assessment & Plan (07/29/2023 7:30 AM PAINTER SKI EDGE): - Neurosurgery consulted - Repeat head CT [...] 07/27/2023 Assessment & Plan (07/27/2023 2:21 PM PAINTER SKI EDGE): - PRS consulted - s/p repair with 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 - Bacitracin TID x 3 days, then vaseline - HOB elevation - Pending recovery or discharge, please call [phone] or [phone] to schedule follow-up within 1-2 weeks to be seen by an BURT Left knee pain 07/27/2023 Assessment & Plan (07/28/2023 12:59 PM PAINTER SKI EDGE): - XR left knee: negative for acute fracture Polycythemia 07/27/2023 Assessment & Plan (07/28/2023 12:59 PM PAINTER SKI EDGE): #coagulopathy - last PE in per chart [...] 07/27/2023 Assessment & Plan (07/27/2023 2:50 PM PAINTER SKI EDGE): - continue home levothyroxine Elevated red blood cell count 07/21/2023 Closed fracture of left distal fibula 03/11/2019 Overview (03/11/2019): Added automatically from request for surgery [id number] Acute pain due to trauma 03/11/2019 Type 2 diabetes mellitus, wi th long-term current use of insulin 03/11/2019 Assessment & Plan (07/28/2023 1:07 PM PAINTER SKI EDGE): #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, [...] 02/08/2019 Assessment & Plan (08/06/2021 12:23 PM PAINTER SKI EDGE): Cholesterol <200 mg/dL 142 137 R, CM 116 Low R 118 R, CM HDL > OR = 40 mg/dL 46 41 R, CM 34 Low R 27 Low R, CM Triglycerides <150 mg/dL 84 83 R, CM 80 R 117 R, CM LDL mg/dL (calc) 80 He remains at goal on lipitor 40 mg so will continue Assessment & Plan (08/15/2020 12:58 PM PAINTER SKI EDGE): He is on lipitor 20 mg= TC 151/HDL 41/ TG 105/ LDL 89 He has been averaging in the 80 range the past 3 years so am going to the 40 mg dosing to get it down below 70 as he has no sx on the 20 Assessment & Plan (08/17/2019 12:02 PM PAINTER SKI EDGE): TC 137/LDL 79 on lipitor 20 mg and at goal Assessment & Plan (02/08/2019 1:08 PM CDT): His LDL is at goal Presence of IVC filter 09/28/2018 Bruising 03/19/2017 Chronic anemia 03/19/2017 Edema 03/19/2017 Pulmonary embolism without acute cor pulmonale 0 02/10/2017 Assessment & Plan (07/28/2023 11:41 AM PAINTER SKI EDGE): - Hold warfarin - s/p IVC filter Assessment & Plan (07/21/2017 12:18 PM PAINTER SKI EDGE): Unfortunately, he needs anticoagulation. A recent venous [...] 01/20/2017 Assessment & Plan (08/17/2019 12:05 PM PAINTER SKI EDGE): 1. 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 Global left ventricular [...] 01/20/2017 Assessment & Plan (07/27/2023 2:41 PM PAINTER SKI EDGE): See Pulmonary Embolism Assessment & Plan (01/20/2017 [...] elective Lexiscan nuclear stress test over at [facility] which is convenient. If this is negative and since pulmonary is no from there mechanism. It may be worthwhile to consider some type of an alternate exercise program such as swimming, i.e. water aerobic Pure hypercholesterolemia 01/20/2017 Assessment & Plan (07/27/2023 2:42 PM PAINTER SKI EDGE): - Continue home Lipitor Assessment & Plan (02/08/2019 1:06 PM CDT): SCRIBED Cholesterol, Total l - h 151 SCRIBED HDL l - h 45 SCRIBED LDL l - h 87 SCRIBED Triglycerides l - h 95 His LDL is at goal on lipitor 20 mg a day Assessment & Plan (08/11/2018 10:31 AM PAINTER SKI EDGE): Lipid profile today=TC 170/ HDL 55/ TG [...] lipitor Assessment & Plan (07/21/2017 12:22 PM PAINTER SKI EDGE): Todays lipid profile= TC 151/ HDL 45/ [...] 01/02 Assessment & Plan (07/27/2023 2:47 PM PAINTER SKI EDGE): - BMI 44.94 kg/m2 on admission Assessment & Plan (02/08/2019 2:11 PM CDT): He continues to work with diet and exercise Assessment & Plan (08/11/2018 10:35 AM PAINTER SKI EDGE): He continues to work with calorie restriction and ambulation Assessment & Plan (01/27/2018 11:21 AM CDT): He works with diet, exercise limited as he walks with a cane Assessment & Plan (07/21/2017 12:31 PM PAINTER SKI EDGE): He continues to work with diet Assessment & Plan (02/10/2017 1:56 PM CDT): Need for wt loss discussed. Recs: 1) continue diet and lifestyle modifications. Metastatic neoplasm 07/18/2016 Benign paroxysmal positional vertigo 09/20/2015 Pulmonary embolism 08/09/2015 Paroxysmal atrial fibrillation 08/09/2015 Assessment & Plan (07/27/2023 2:57 PM PAINTER SKI EDGE): - Continue home flecainide - Continue home metoprolol - suppressed on warfarin, flecainide; follows with cardiology outpatient - last TTE in 2019 w/ LVEF 55% and no obvious structural issues Assessment & Plan (08/06/2021 12:26 PM PAINTER SKI EDGE): He has had no recurrences since last year; echo normal, So I made no changes He is protected with Warfarin, on tambocor and metoprolol which I would continue Assessment & Plan (08/15/2020 12:39 PM PAINTER SKI EDGE): He has had recurrent episodes of atrial [...] 07/12/2015 Assessment & Plan (07/28/2023 11:47 AM PAINTER SKI EDGE): - 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 Past Treatment and Therapy Plans No past plan information found. Lifetime Dose Tracking * Chemical Lifetime Dose Automatic Entry Manual Entr y DLP 1,419 mGycm 1,419 mGycm 0 mGycm
--- OUTSIDE RECORDS SUMMARY | 2024-10-10 09:01 | XMS_ITS | Referral Summary ---
Author Organization [facility] Center Address [facility] [place] [address] Care Team Providers Care Bounty Hunter Name Role Phone Liset Haynes MD Primary Care Provider [phone] Encounters Date Type Department Care Team Description 5 3:00 PM PATIENT SERVICES COORDINATOR Office Visit [facility] Cardiology at [address] [place] [address] Collin Rojas MD Paroxysmal atrial fibrillation (HCC) (Primary Dx) 5 7:46 AM PATIENT SERVICES COORDINATOR Anesthesia Event [facility] [address] [place] [phone] Skyler Patricia MD Chambers, Megan Michelle, PAINTER TUMBLING BARREL 5 6:40 AM PATIENT SERVICES COORDINATOR Lab [facility] Outpatient Lab [address] [place] [phone] Pre-procedure lab exam; 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) 5 8:30 AM PATIENT SERVICES COORDINATOR - 5 9:00 AM PATIENT SERVICES COORDINATOR Surgery [facility] [address] [place] [phone] Taras Soriano MD ESOPHAGOGASTRODUODENOSCOPY ESOPHAGEAL GUIDE WIRE 5 6:58 AM PATIENT SERVICES COORDINATOR - 5 9:03 AM PATIENT SERVICES COORDINATOR Hospital Encounter [facility] [address] [place] [phone] Taras Soriano MD Discharge Disposition: Discharge to home or self care 5 Telephone [facility] [address] [facility] [address] [place] [address] [place] [phone] Alina Martin RMA PRE PROCEDURE ASSESSMENT 5 Orders Only [facility] [address] [place] [address] [place] [phone] Taras Soriano MD Esophageal dysphagia (Primary Dx); Pre-procedure lab exam; 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) from Last 3 Months Allergies Active Allergy [...] FOR SHORTNESS OF BREATH OR WHEEZING 05/26/20 23 Active azelastine (ASTELIN) 137 mcg (0.1 %) [...] day for 11 doses 11 tablet 07/29/20 23 025 Discontinued(T herapy completed) oxyCODONE (ROXICODONE) 5 mg immediate release tabletIndicat ions:Pain Take 1 tablet (5 mg total) by mouth every 4 (four) hours as needed for pain 5 tablet 07/29/20 23 025 Discontinued(T herapy completed) traMADoL (ULTRAM) 50 [...] 07/28/2023 Assessment & Plan (07/28/2023 1:21 PM PATIENT SERVICES COORDINATOR): 07/28 medications reviewed and updated through contact with patient's [facility] (subarachnoid hemorrhage) 07/27/2023 Assessment & Plan (07/29/2023 7:30 AM PATIENT SERVICES COORDINATOR): - Neurosurgery consulted - Repeat head CT [...] 07/27/2023 Assessment & Plan (07/27/2023 2:21 PM PATIENT SERVICES COORDINATOR): - PRS consulted - s/p repair with 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 - Bacitracin TID x 3 days, then vaseline - HOB elevation - Pending recovery or discharge, please call [phone] or [phone] to schedule follow-up within 1-2 weeks to be seen by an BURT Left knee pain 07/27/2023 Assessment & Plan (07/28/2023 12:59 PM PATIENT SERVICES COORDINATOR): - XR left knee: negative for acute fracture Polycythemia 07/27/2023 Assessment & Plan (07/28/2023 12:59 PM PATIENT SERVICES COORDINATOR): #coagulopathy - last PE in per chart [...] 07/27/2023 Assessment & Plan (07/27/2023 2:50 PM PATIENT SERVICES COORDINATOR): - continue home levothyroxine Elevated red blood cell count 07/21/2023 Closed fracture of left distal fibula 03/11/2019 Overview (03/11/2019): Added automatically from request for surgery [id number] Acute pain due to trauma 03/11/2019 Type 2 diabetes mellitus, wi th long-term current use of insulin 03/11/2019 Assessment & Plan (07/28/2023 1:07 PM PATIENT SERVICES COORDINATOR): #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, [...] 02/08/2019 Assessment & Plan (08/06/2021 12:23 PM PATIENT SERVICES COORDINATOR): Cholesterol <200 mg/dL 142 137 R, CM 116 Low R 118 R, CM HDL > OR = 40 mg/dL 46 41 R, CM 34 Low R 27 Low R, CM Triglycerides <150 mg/dL 84 83 R, CM 80 R 117 R, CM LDL mg/dL (calc) 80 He remains at goal on lipitor 40 mg so will continue Assessment & Plan (08/15/2020 12:58 PM PATIENT SERVICES COORDINATOR): He is on lipitor 20 mg= TC 151/HDL 41/ TG 105/ LDL 89 He has been averaging in the 80 range the past 3 years so am going to the 40 mg dosing to get it down below 70 as he has no sx on the 20 Assessment & Plan (08/17/2019 12:02 PM PATIENT SERVICES COORDINATOR): TC 137/LDL 79 on lipitor 20 mg and at goal Assessment & Plan (02/08/2019 1:08 PM CDT): His LDL is at goal Presence of IVC filter 09/28/2018 Bruising 03/19/2017 Chronic anemia 03/19/2017 Edema 03/19/2017 Pulmonary embolism without acute cor pulmonale 0 02/10/2017 Assessment & Plan (07/28/2023 11:41 AM PATIENT SERVICES COORDINATOR): - Hold warfarin - s/p IVC filter Assessment & Plan (07/21/2017 12:18 PM PATIENT SERVICES COORDINATOR): Unfortunately, he needs anticoagulation. A recent venous [...] 01/20/2017 Assessment & Plan (08/17/2019 12:05 PM PATIENT SERVICES COORDINATOR): 1. Normal global and regional left ventricular [...] medication Assessment & Plan (08/11/2018 10:38 AM PATIENT SERVICES COORDINATOR): He remains on flecanide without sx; EKG last January= NSR; Holter in 2016= NSR, today EKG= NSR, 1st degree AVB; intervals ok; will continue warfarin more for 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, as he has been in rhythm since 2016 Assessment & Plan (07/21/2017 12:27 PM PATIENT SERVICES COORDINATOR): No diagnostic ST changes. Global left ventricular [...] 01/20/2017 Assessment & Plan (07/27/2023 2:41 PM PATIENT SERVICES COORDINATOR): See Pulmonary Embolism Assessment & Plan (01/20/2017 [...] elective Lexiscan nuclear stress test over at [facility] which is convenient. If this is negative and since pulmonary is no from there mechanism. It may be worthwhile to consider some type of an alternate exercise program such as swimming, i.e. water aerobic Pure hypercholesterolemia 01/20/2017 Assessment & Plan (07/27/2023 2:42 PM PATIENT SERVICES COORDINATOR): - Continue home Lipitor Assessment & Plan (02/08/2019 1:06 PM CDT): SCRIBED Cholesterol, Total l - h 151 SCRIBED HDL l - h 45 SCRIBED LDL l - h 87 SCRIBED Triglycerides l - h 95 His LDL is at goal on lipitor 20 mg a day Assessment & Plan (08/11/2018 10:31 AM PATIENT SERVICES COORDINATOR): Lipid profile today=TC 170/ HDL 55/ TG [...] lipitor Assessment & Plan (07/21/2017 12:22 PM PATIENT SERVICES COORDINATOR): Todays lipid profile= TC 151/ HDL 45/ [...] 01/02 Assessment & Plan (07/27/2023 2:47 PM PATIENT SERVICES COORDINATOR): - BMI 44.94 kg/m2 on admission Assessment & Plan (02/08/2019 2:11 PM CDT): He continues to work with diet and exercise Assessment & Plan (08/11/2018 10:35 AM PATIENT SERVICES COORDINATOR): He continues to work with calorie restriction and ambulation Assessment & Plan (01/27/2018 11:21 AM CDT): He works with diet, exercise limited as he walks with a cane Assessment & Plan (07/21/2017 12:31 PM PATIENT SERVICES COORDINATOR): He continues to work with diet Assessment & Plan (02/10/2017 1:56 PM CDT): Need for wt loss discussed. Recs: 1) continue diet and lifestyle modifications. Metastatic neoplasm 07/18/2016 Benign paroxysmal positional vertigo 09/20/2015 Pulmonary embolism 08/09/2015 Paroxysmal atrial fibrillation 08/09/2015 Assessment & Plan (07/27/2023 2:57 PM PATIENT SERVICES COORDINATOR): - Continue home flecainide - Continue home metoprolol - suppressed on warfarin, flecainide; follows with cardiology outpatient - last TTE in 2019 w/ LVEF 55% and no obvious structural issues Assessment & Plan (08/06/2021 12:26 PM PATIENT SERVICES COORDINATOR): He has had no recurrences since last year; echo normal, So I made no changes He is protected with Warfarin, on tambocor and metoprolol which I would continue Assessment & Plan (08/15/2020 12:39 PM PATIENT SERVICES COORDINATOR): He has had recurrent episodes of atrial [...] 07/12/2015 Assessment & Plan (07/28/2023 11:47 AM PATIENT SERVICES COORDINATOR): - 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 since then per ID - doxycycline reordered Arthritis 12/17/2009 Hypertension 12/17/2009 Assessment & Plan (08/06/2021 12:26 PM PATIENT SERVICES COORDINATOR): His BP remains at goal on the BB, so will continue Assessment & Plan (08/15/2020 12:34 PM PATIENT SERVICES COORDINATOR): His blood pressure is at goal Assessment & Plan (08/17/2019 12:00 PM PATIENT SERVICES COORDINATOR): His BP remains at goal Assessment & Plan (02/08/2019 1:05 PM CDT): His BP remains at goal Assessment & Plan (08/11/2018 10:26 AM PATIENT SERVICES COORDINATOR): His BP is at goal Immunizations Immunization Administration Dates Next Due Influenza, [...] on file Legal Sex Male 3:18 AM PATIENT SERVICES COORDINATOR Gender Identity Not on file Sexual Orientation Not on file Last Filed Vital Signs Vital Sign Reading Time Taken Comments Blood Pressure 108/70 10/07/2024 2:53 PM PATIENT SERVICES COORDINATOR Pulse 62 10/07/2024 2:53 PM PATIENT SERVICES COORDINATOR Temperature 36.3 C (97.3 F) 09/07/2024 7:18 AM PATIENT SERVICES COORDINATOR Respiratory Rate 18 09/07/2024 8:20 AM PATIENT SERVICES COORDINATOR Oxygen Saturation 94% 10/07/2024 2:53 PM PATIENT SERVICES COORDINATOR Inhaled Oxygen Concentration - - Weight 155.6 kg (343 lb) 10/07/2024 2:53 PM PATIENT SERVICES COORDINATOR Height 188 cm (6' 2 ) 10/07/2024 2:53 PM PATIENT SERVICES COORDINATOR Body Mass Index 44.04 10/07/2024 2:53 PM PATIENT SERVICES COORDINATOR Plan of Treatment Not on file Procedures Procedure Name Priority Date/Time Associated Diagnosis Comments ENDO ADD ON ESOPHAGOGASTRODUODENOSCOPY INJECTION SUBMUCOSAL 09/07/2024 7:46 AM PATIENT SERVICES COORDINATOR Esophageal dysphagia ESOPHAGOGASTRODUODENOSCOPY ESOPHAGEAL GUIDE WIRE 09/07/2024 7:46 AM PATIENT SERVICES COORDINATOR Esophageal dysphagia EGD 09/07/2024 7:34 AM PATIENT SERVICES COORDINATOR POCT GLUCOSE DEVICE Routine 09/07/2024 7:26 AM PATIENT SERVICES COORDINATOR PROTIME-INR STAT 09/07/2024 6:48 AM PATIENT SERVICES COORDINATOR Pre-procedure lab exam 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 Date of : 1940 Instrument Name: [id number] [...] 09/07/2024 7:34 AM Scope In: Scope Out: us Taras Soriano MD ENDOSCOPY PROCEDURES Final Result * POCT glucose (09/07/2024 7:26 AM PATIENT SERVICES COORDINATOR) [facility] Glucose, POC 121 70 - 199 mg/dL Comment: For Glucose values <35 mg/dl when Hematocrit is >60 mg/dl,the test may not accurately detect significant hypoglycemia,and testing in the Laboratory should be considered if clinically indicated. Blood 09/07/2024 7:26 AM PATIENT SERVICES COORDINATOR 09/07/2024 7:26 AM PATIENT SERVICES COORDINATOR Taras Soriano MD LAB POCT ORDERABLES - DEVICE Final Result Performing Organization Address [facility] Co de Phone Number [facility] [address] [facility] [email or web address] [address] * (ABNORMAL) Protime-INR (09/07/2024 6:48 AM PATIENT SERVICES COORDINATOR) PT 13.1(H) 9.7 - 13.0 sec INR 1.21(H) 0.90 - 1.20 [facility] Comment: Interpretive data Oral anticoagulant therapeutic ranges: Venous thromboembolism prophylaxis or treatment: 2.0-3.0 CARDIOLOGY Standard range: 2.0-3.0 High-intensity range: 2.5-3.5 Refer to indication-specific guidelines for appropriate target ranges for prosthetic heart valve replacement. Current interpretive data was last revised on 2019. Blood 09/07/2024 6:48 AM PATIENT SERVICES COORDINATOR 09/07/2024 7:01 AM PATIENT SERVICES COORDINATOR Narrative [facility] - 09/07/2024 7:15 AM PATIENT SERVICES COORDINATOR UPPER ENDOSCOPY SCHEDULED AT 8:30 AM Taras Soriano MD LAB BLOOD ORDERABLES Final Result Performing Organization Address [facility] de Phone Number [facility] [address] [email or web address] [address] * eGFR (07/27/2023 8:57 AM PATIENT SERVICES COORDINATOR) eGFR 60 >=60 mL/min/1. 73 m2 [facility] Comment: Interpretive Data Reference Interval Normal >/= [...] last reviewed 2021. Blood 07/27/2023 8:57 AM PATIENT SERVICES COORDINATOR 07/27/2023 9:13 AM PATIENT SERVICES COORDINATOR us Carlota Blum MD LAB BLOOD ORDERABLES F inal Result [facility] [address] [facility] [place] [address] * Lipid panel (11/13/2020 8:46 AM CDT) [...] LDL-C. Norberto BEDOLLA et al. TEGAN. 2013;310(19): 5075-7046 (http://education.[employer]/faq/NZL780) Chol/HDL ratio 3.1 <5.0 (calc) [facility] [...] BLOOD ORDERABLES Final Result Performing Organization Address City/[facility] Co de Phone Number [facility] [address] [place] [address] * (ABNORMAL) Hemoglobin A1c (03/11/2019 12:48 PM CDT) Hgb A1C 7.5(H) 4.0 - 5.6 % [facility] Estimated Average Glucose 169 mg/dL [facility] Comment: The ADA recommends reporting an estimated Average Glucose (eAG) with all Hemoglobin A1c results using the equation derived from a study of 507 normal and diabetic adults. Minority populations were underrepresented and children were not included. (Diabetes Care 31:2432-4265, 2008). The eAG is not equivalent to a fasting glucose. Blood specimen (specimen) 03/11/2019 12:48 PM CDT 03/11/2019 12:59 PM CDT Alvaro Ortez DO LAB BLOOD ORDERABLES Fi nal Result Performing Organization Address City/[facility]/ZIP Co de Phone Number [facility] [place] [address] from Last 3 Months or Most Recently Relevant to Health Maintenance Insurance MEDICARE [employer] [facility] Address: [address] [address] [place] [address] AET MEDICARE AET MEDICARE AETNA MEDICARE MEDICARE [employer]UTIONS MEDICARE SOLUTIONS Advance Directives For more information, please contact: [phone] * Full Code (Latest Code Status on File) Date Activated Date Inactivated Comments 09/07/2024 7:02 AM 09/07/2024 1:03 PM * Full Code Date Activated Date Inactivated Comments 01/22/2024 12:34 PM 01/22/2024 7:05 PM * Full Code Date Activated Date Inactivated Comments 07/27/2023 11:35 AM 07/29/2023 6:04 PM * Full Code Date Activated Date Inactivated Comments 03/11/2019 9:03 PM 03/16/2019 8:04 PM Care Teams Bounty Hunter Relationship Specialty Start Date End Date Liset Haynes MD PCP - General Family Medicine 08/05/22
[2024-10-10 09:02] LABS: Creatinine Urine 104.14 mg/dL (40-278); MALB Creatinine Ratio 45.6 mg/g (0-30); Microalbumin Urine Random 47.5 mg/L
[2024-10-10 09:52] LABS: Alanine Aminotransferase 34 U/L (16-63); Albumin Level 3.4 g/dL (3.4-5.0); Alkaline Phosphatase 139 U/L (46-116); Anion Gap 7 mmol/L (4-12); Aspartate Amino Transferase 15 U/L (15-37); Bilirubin,Total 0.6 mg/dL (0.00-1.00); Blood Urea Nitrogen 25 mg/dL (7-18); Calcium 9.6 mg/dL (8.5-10.1); Carbon Dioxide 32 mmol/L (21-32); Chloride 104 mmol/L (98-108); Cholesterol 171 mg/dL (0-200); Estimated Glomerular Filt Rate 51; Glucose 189 mg/dL (70-99); HDL Direct 55 mg/dL (40-60); LDL Cholesterol Calculated 100 mg/dL (<130); Osmolality Calculated 305 mOsm/kg (285-295); Prostate Specific Antigen 3.4 ng/mL (< OR = 4.0); Sodium 143 mmol/L (136-145); Total Protein 7.1 g/dL (6.4-8.2); Triglycerides 82 mg/dL (0-150)
[2024-10-10 10:01] LABS: Thyroid Stimulating Hormone Reflex 2.86 u/IU/mL (0.36-3.74)
[2024-10-12 01:43] LABS: Vitamin D 25 Hydroxy 60 ng/mL (30-100)
== END 2024-10-10 08:33 | disposition home or self-care (01) ==
LOC: CHSLAB 08:33
PROVIDERS: PCP Family Medicine; Visit Provider Family Medicine
DX: E03.9 Hypothyroidism, unspecified (principal); E78.2 Mixed hyperlipidemia; E11.9 Type 2 diabetes mellitus without complications; E55.9 Vitamin D deficiency, unspecified; Z12.5 Encounter for screening for malignant neoplasm of prostate
CPT/HCPCS: 36415; 80053; 80061; 82043; 82306; 83036; 84153; 84443; G0103

== ENCOUNTER 2024-11-30 08:21 | Emergency (ER) | payer MEDICARE, SELFPAY ==
[2024-11-30] VITALS (7 sets, daily range): BP systolic 94–108; BP diastolic 45–65; PULSE 76–100; RESP 15–21; TEMP 37.1; O2SAT 96–100
--- NOTE | ~2024-11-30 | CT_ITS ---
Clinical Indication: Shortness of breath CT Scan of the Chest with Contrast: Technique: Contiguous sections were acquired throughout the chest after intravenous administration of 100 cc of Omnipaque 350. Dose reduction technique was used on this scan by utilizing automated expos ure control and iterative reconstruction technique. The dose-length product (DLP) was 1092.83 mGy-cm. COMPARISON: 10/04/2023 Findings: There is no evidence of any significant mediastinal, hilar or axillary lymphadenopathy. There is no f illing defect in the pulmonary arterial tree to suggest pulmonary embolus. There is no evidence of ao rtic dissection or aneurysm. There is no evidence of pleural or pericardial effusion. The lungs demonstrate probable mild hypoventilatory/atelectatic changes.. Images through the upper abdomen reveal small layering gallstones. There is diffuse DISH of the spine versus possibly ankylosing spondylitis. Impression: No evidence of pulmonary embolus, aortic dissection, or aortic aneurysm. Probable mild hypoventilatory/atelectatic changes. Possible ankylosing spondylitis versus diffuse DISH. Reviewed, dictated and finalized at [facility]. Impression: No evidence of pulmonary embolus, aortic dissection, or aortic aneurysm. Probable mild hypoventilatory/atelectatic changes. Possible ankylosing spondylitis versus diffuse DISH.
--- NOTE | ~2024-11-30 | XR_ITS ---
Clinical Indication: Shortness of breath AP and lateral views of the chest: Comparison: 05/09/2024 Findings: Mild bibasilar haziness is present. No pleural effusion or pneumothorax evident. Cardiomed iastinal silhouette is within normal limits. Bones and soft tissues are unremarkable. Chronic left ri b fracture deformities are noted. Impression: Probable mild bibasilar pulmonary edema. Reviewed, dictated and finalized at location . Impression: Probable mild bibasilar pulmonary edema.
--- NOTE | 2024-11-30 08:34 | ECG_ITS ---
Test Date: 2024-11-30 08:32:35 Measurements Intervals [place] Rate: 89 P: 0 [place]: 0 QRS: 35 QRSD: 98 T: 62 QT: 370 QTc: 451 Interpretive Statements ATRIAL FLUTTER/TACHYCARDIA WITH NORMAL VENTRICULAR RESPONSE LOW QRS VOLTAGE IN PRECORDIAL LEADS BASELINE ARTIFACT- I, II, III, AVR, AVF ABNORMAL ECG Compared to ECG 05/03/2024 15:39:15 Sinus rhythm no longer present Electronically Signed On 11-30-2024 09:15:44 CDT by Dani Cortez D.O.
--- OUTSIDE RECORDS SUMMARY | 2024-11-30 08:57 | XMS_ITS | Clinical Summary ---
Author Organization [facility] Address [address] [place] [address] Care Team Providers Care Infant And Toddler Teacher Name Role Phone Liset Haynes MD Primary Care Provider [phone] Allergies Active Allergy Reactions Criticality Noted Date [...] 0 6 Active Additional Information Patient taking differently:0.4 mgoral 2 times daily, Informant: Pharmacy, Reported on 10/07/2024 insulin glargine (LANTUS SOLOSTAR) 100 unit/mL (3 mL) insulin pen inject by subcutaneous route as per insulin protocol 0 Syringe 0 6 Active metoprolol (LOPRESSOR) 25 mg tablet 1/2 [...] mg total) by mouth daily 3 Active Trelegy Ellipta 200-62.5-25 mcg inhaler Inhale 1 puff daily 3 Active insulin lispro (HumaLOG, ADMELOG) 100 unit/mL pen for injection Inject 8-10 Units under the skin 3 (three) times a day with meals 3 Active pregabalin (LYRICA) 150 mg capsule Take 1 capsule (150 mg total) by mouth daily 3 Active acetaminophen (TYLENOL) 325 mg tabletIndicatio ns:Pain Take 2 tablets (650 mg total) by mouth every 6 (six) hours as needed for pain 30 tablet 3 Active senna-docusate (PERICOLACE) 8.6-50 mgIndications:c onstipation Take 1 tablet by mouth 2 (two) times a day 28 tablet 3 Active BD Blanca 2nd Gen Pen Needle 32 gauge x 5/32 needle DIRECTED FOUR TIMES DAILY WITH INSULIN 4 Active warfarin (COUMADIN) 5 mg tablet Take 1 tablet (5 mg total) by mouth daily Active amoxicillin-cla vulanate (AUGMENTIN) 500-125 mg per tablet Take by mouth daily 4 Active flecainide (TAMBOCOR) 50 mg tablet TAKE 1 TABLET BY MOUTH TWICE A DAY 180 tablet 2 5 Active docusate sodium (COLACE) 50 mg capsuleIndicati ons:constipatio n Take 1 capsule (50 mg total) by mouth 2 (two) times a day Active acidophilus-pec tin, citrus 100 million cell-10 mg capsule Take by mouth Activ e cholecalciferol , vitamin D3, (VITAJOY DAILY D ORAL) Take by mouth Active vitamin B complex capsule Take 1 capsule [...] mouth 3 (three) times a day Active Active Problems Problem Noted Date Diagnosed Date Dysphagia 09/17/2023 Encounter for medication review 07/28/2023 Assessment & Plan (07/28/2023 1:21 PM WHOLESALE ACCOUNT EXECUTIVE): 07/28 medications reviewed and updated through contact with [facility] SAH (subarachnoid hemorrhage) 07/27/2023 Assessment & Plan (07/29/2023 7:30 AM WHOLESALE ACCOUNT EXECUTIVE): - Neurosurgery consulted - Repeat head CT [...] 07/27/2023 Assessment & Plan (07/27/2023 2:21 PM WHOLESALE ACCOUNT EXECUTIVE): - PRS consulted - s/p repair with 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 - Bacitracin TID x 3 days, then vaseline - HOB elevation - Pending recovery or discharge, please call [phone] or [phone] to schedule follow-up within 1-2 weeks to be seen by an BURT Left knee pain 07/27/2023 Assessment & Plan (07/28/2023 12:59 PM WHOLESALE ACCOUNT EXECUTIVE): - XR left knee: negative for acute fracture Polycythemia 07/27/2023 Assessment & Plan (07/28/2023 12:59 PM WHOLESALE ACCOUNT EXECUTIVE): #coagulopathy - last PE in per chart [...] 07/27/2023 Assessment & Plan (07/27/2023 2:50 PM WHOLESALE ACCOUNT EXECUTIVE): - continue home levothyroxine Elevated red blood cell count 07/21/2023 Closed fracture of left distal fibula 03/11/2019 Overview (03/11/2019): Added automatically from request for surgery [id number] Acute pain due to trauma 03/11/2019 Type 2 diabetes mellitus, wi th long-term current use of insulin 03/11/2019 Assessment & Plan (07/28/2023 1:07 PM WHOLESALE ACCOUNT EXECUTIVE): #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, [...] 02/08/2019 Assessment & Plan (08/06/2021 12:23 PM WHOLESALE ACCOUNT EXECUTIVE): Cholesterol <200 mg/dL 142 137 R, CM 116 Low R 118 R, CM HDL > OR = 40 mg/dL 46 41 R, CM 34 Low R 27 Low R, CM Triglycerides <150 mg/dL 84 83 R, CM 80 R 117 R, CM LDL mg/dL (calc) 80 He remains at goal on lipitor 40 mg so will continue Assessment & Plan (08/15/2020 12:58 PM WHOLESALE ACCOUNT EXECUTIVE): He is on lipitor 20 mg= TC 151/HDL 41/ TG 105/ LDL 89 He has been averaging in the 80 range the past 3 years so am going to the 40 mg dosing to get it down below 70 as he has no sx on the 20 Assessment & Plan (08/17/2019 12:02 PM WHOLESALE ACCOUNT EXECUTIVE): TC 137/LDL 79 on lipitor 20 mg and at goal Assessment & Plan (02/08/2019 1:08 PM CDT): His LDL is at goal Presence of IVC filter 09/28/2018 Bruising 03/19/2017 Chronic anemia 03/19/2017 Edema 03/19/2017 Pulmonary embolism without acute cor pulmonale 0 02/10/2017 Assessment & Plan (07/28/2023 11:41 AM WHOLESALE ACCOUNT EXECUTIVE): - Hold warfarin - s/p IVC filter Assessment & Plan (07/21/2017 12:18 PM WHOLESALE ACCOUNT EXECUTIVE): Unfortunately, he needs anticoagulation. A recent venous [...] 01/20/2017 Assessment & Plan (08/17/2019 12:05 PM WHOLESALE ACCOUNT EXECUTIVE): 1. Normal global and regional left ventricular [...] medication Assessment & Plan (08/11/2018 10:38 AM WHOLESALE ACCOUNT EXECUTIVE): He remains on flecanide without sx; EKG last January= NSR; Holter in 2016= NSR, today EKG= NSR, 1st degree AVB; intervals ok; will continue warfarin more for 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, as he has been in rhythm since 2015 Assessment & Plan (07/21/2017 12:27 PM WHOLESALE ACCOUNT EXECUTIVE): No diagnostic ST changes. Global left ventricular [...] 01/20/2017 Assessment & Plan (07/27/2023 2:41 PM WHOLESALE ACCOUNT EXECUTIVE): See Pulmonary Embolism Assessment & Plan (01/20/2017 [...] 01/20/2017 Assessment & Plan (07/27/2023 2:42 PM WHOLESALE ACCOUNT EXECUTIVE): - Continue home Lipitor Assessment & Plan (02/08/2019 1:06 PM CDT): SCRIBED Cholesterol, Total l - h 151 SCRIBED HDL l - h 45 SCRIBED LDL l - h 87 SCRIBED Triglycerides l - h 95 His LDL is at goal on lipitor 20 mg a day Assessment & Plan (08/11/2018 10:31 AM WHOLESALE ACCOUNT EXECUTIVE): Lipid profile today=TC 170/ HDL 55/ TG [...] lipitor Assessment & Plan (07/21/2017 12:22 PM WHOLESALE ACCOUNT EXECUTIVE): Todays lipid profile= TC 151/ HDL 45/ [...] 01/02 Assessment & Plan (07/27/2023 2:47 PM WHOLESALE ACCOUNT EXECUTIVE): - BMI 44.94 kg/m2 on admission Assessment & Plan (02/08/2019 2:11 PM CDT): He continues to work with diet and exercise Assessment & Plan (08/11/2018 10:35 AM WHOLESALE ACCOUNT EXECUTIVE): He continues to work with calorie restriction and ambulation Assessment & Plan (01/27/2018 11:21 AM CDT): He works with diet, exercise limited as he walks with a cane Assessment & Plan (07/21/2017 12:31 PM WHOLESALE ACCOUNT EXECUTIVE): He continues to work with diet Assessment & Plan (02/10/2017 1:56 PM CDT): Need for wt loss discussed. Recs: 1) continue diet and lifestyle modifications. Metastatic neoplasm 07/18/2016 Benign paroxysmal positional vertigo 09/20/2015 Pulmonary embolism 08/09/2015 Paroxysmal atrial fibrillation 08/09/2015 Assessment & Plan (07/27/2023 2:57 PM WHOLESALE ACCOUNT EXECUTIVE): - Continue home flecainide - Continue home metoprolol - suppressed on warfarin, flecainide; follows with cardiology outpatient - last TTE in 2018 w/ LVEF 55% and no obvious structural issues Assessment & Plan (08/06/2021 12:26 PM WHOLESALE ACCOUNT EXECUTIVE): He has had no recurrences since last year; echo normal, So I made no changes He is protected with Warfarin, on tambocor and metoprolol which I would continue Assessment & Plan (08/15/2020 12:39 PM WHOLESALE ACCOUNT EXECUTIVE): He has had recurrent episodes of atrial [...] 07/12/2015 Assessment & Plan (07/28/2023 11:47 AM WHOLESALE ACCOUNT EXECUTIVE): - 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 since then per ID - doxycycline reordered Arthritis 12/17/2009 Hypertension 12/17/2009 Assessment & Plan (08/06/2021 12:26 PM WHOLESALE ACCOUNT EXECUTIVE): His BP remains at goal on the BB, so will continue Assessment & Plan (08/15/2020 12:34 PM WHOLESALE ACCOUNT EXECUTIVE): His blood pressure is at goal Assessment & Plan (08/17/2019 12:00 PM WHOLESALE ACCOUNT EXECUTIVE): His BP remains at goal Assessment & Plan (02/08/2019 1:05 PM CDT): His BP remains at goal Assessment & Plan (08/11/2018 10:26 AM WHOLESALE ACCOUNT EXECUTIVE): His BP is at goal Encounters Date Type Department Care Team Description 5 3:00 PM WHOLESALE ACCOUNT EXECUTIVE Office Visit [facility] Cardiology at [address] [place] [address] Collin Rojas MD Paroxysmal atrial fibrillation (HCC) (Primary Dx) 5 8:30 AM WHOLESALE ACCOUNT EXECUTIVE - 5 9:00 AM WHOLESALE ACCOUNT EXECUTIVE Surgery [facility] [address] [place] [address] [phone] Taras Soriano MD ESOPHAGOGASTRODUODENOSCOPY ESOPHAGEAL GUIDE WIRE 5 7:46 AM WHOLESALE ACCOUNT EXECUTIVE Anesthesia Event [facility] [address] [place] [phone] Skyler Patrciia MD Chambers, Megan Michelle, CRNA 5 6:58 AM WHOLESALE ACCOUNT EXECUTIVE - 5 9:03 AM WHOLESALE ACCOUNT EXECUTIVE Hospital Encounter 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) 5 Telephone [facility] [address] [facility] [place] [address] [place] [address] Alina Martin RMA PRE PROCEDURE ASSESSMENT 5 Orders Only [facility] [address] [place] [address] Taras Soriano MD Esophageal dysphagia (Primary Dx); [...] on file Legal Sex Male 3:18 AM WHOLESALE ACCOUNT EXECUTIVE Gender Identity Not on file Sexual Orientation Not on file Obstetrics History Last Filed Vital Signs Vital Sign Reading Time Taken Comments Blood Pressure 108/70 10/07/2024 2:53 PM WHOLESALE ACCOUNT EXECUTIVE Pulse 62 10/07/2024 2:53 PM WHOLESALE ACCOUNT EXECUTIVE Temperature 36.3 C (97.3 F) 09/07/2024 7:18 AM WHOLESALE ACCOUNT EXECUTIVE Respiratory Rate 18 09/07/2024 8:20 AM WHOLESALE ACCOUNT EXECUTIVE Oxygen Saturation 94% 10/07/2024 2:53 PM WHOLESALE ACCOUNT EXECUTIVE Inhaled Oxygen Concentration - - Weight 155.6 kg (343 lb) 10/07/2024 2:53 PM WHOLESALE ACCOUNT EXECUTIVE Height 188 cm (6' 2 ) 10/07/2024 2:53 PM WHOLESALE ACCOUNT EXECUTIVE Body Mass Index 44.04 10/07/2024 2:53 PM WHOLESALE ACCOUNT EXECUTIVE Plan of Treatment Health Maintenance Due Date [...] 11/13/2021 11/13/2020, 08/03, 03/11/2019, Additional history exists eGFR 07/27/2024 07/27/2023, 07/04, 10/21/2016 Influenza Vaccine (Season Ended) 2025 06/09/2019, 06/07/2018, 05/11/2017 Fall Risk Assessment 09/07/2025 09/07/2024 DTaP/Tdap/Td Vaccine (3 - Td or Tdap) 07/27/2033 07/27/2023, 05/10/2013, 01/24/2004 Pneumococcal vaccine 65+ Completed 018, 07/31/2016, 05/10/2013 Zoster Vaccine Completed 08/22/2019, 06/09/2019 Procedures Procedure Name Priority Date/Time Associated Diagnosis Comments ENDO ADD ON ESOPHAGOGASTRODUODENOSCOPY INJECTION SUBMUCOSAL 09/07/2024 7:46 AM WHOLESALE ACCOUNT EXECUTIVE Esophageal dysphagia ESOPHAGOGASTRODUODENOSCOPY ESOPHAGEAL GUIDE WIRE 09/07/2024 7:46 AM WHOLESALE ACCOUNT EXECUTIVE Esophageal dysphagia EGD 09/07/2024 7:34 AM WHOLESALE ACCOUNT EXECUTIVE POCT GLUCOSE DEVICE Routine 09/07/2024 7:26 AM WHOLESALE ACCOUNT EXECUTIVE PROTIME-INR STAT 09/07/2024 6:48 AM WHOLESALE ACCOUNT EXECUTIVE Pre-procedure lab exam 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) EGFR STAT 07/27/2023 8:57 AM WHOLESALE ACCOUNT EXECUTIVE LIPID PANEL Routine 11/13/2020 8:46 AM CDT HEMOGLOBIN A1C STAT 03/11/2019 12:48 PM CDT from Last 3 Months or Most Recently Relevant to Health Maintenance Results * EGD (09/07/2024 7:34 AM WHOLESALE ACCOUNT EXECUTIVE) Anatomical Region Laterality Modality Other Narrative Procedure Note Taras Soriano MD - 09/07/2024 7:34 AM CST ENDOSCOPY LAB Patient Name: Neal Amaro Procedure Date: 09/07/2024 7:34 AM Admit Type: Outpatient Room: [facility] 2 Date of : 1940 Instrument Name: [id number] [...] Result * POCT glucose (09/07/2024 7:26 AM WHOLESALE ACCOUNT EXECUTIVE) Glucose, POC 121 70 - 199 mg/dL Comment: For Glucose values <35 mg/dl when Hematocrit is >60 mg/dl,the test may not accurately detect significant hypoglycemia,and testing in the Laboratory should be considered if clinically indicated. Blood 09/07/2024 7:26 AM WHOLESALE ACCOUNT EXECUTIVE 09/07/2024 7:26 AM WHOLESALE ACCOUNT EXECUTIVE Result [facility] Taras Soriano MD LAB POCT ORDERABLES - DEVICE Final Result Performing Organization Address City/State/[facility] Co de Phone Number [facility] [address] Department [place] [address] * (ABNORMAL) Protime-INR (09/07/2024 6:48 AM WHOLESALE ACCOUNT EXECUTIVE) Pathologist [facility] PT 13.1(H) 9.7 - 13.0 sec INR 1.21(H) 0.90 - 1.20 [facility] Comment: Interpretive data Oral anticoagulant therapeutic ranges: Venous thromboembolism prophylaxis or treatment: 2.0-3.0 CARDIOLOGY Standard range: 2.0-3.0 High-intensity range: 2.5-3.5 Refer to indication-specific guidelines for appropriate target ranges for prosthetic heart valve replacement. Current interpretive data was last revised on 2019. Blood 09/07/2024 6:48 AM WHOLESALE ACCOUNT EXECUTIVE 09/07/2024 7:01 AM WHOLESALE ACCOUNT EXECUTIVE Narrative [facility] - 09/07/2024 7:15 AM WHOLESALE ACCOUNT EXECUTIVE UPPER ENDOSCOPY SCHEDULED AT 8:30 AM us Taras Soriano MD LAB BLOOD ORDERABLES Final Result Performing Organization Address City/[facility]/ZIP Co de Phone Number [facility] [address] Department [place] [address] * eGFR (07/27/2023 8:57 AM WHOLESALE ACCOUNT EXECUTIVE) eGFR 60 >=60 mL/min/1. 73 m2 [facility] Comment: Interpretive Data Reference Interval Normal >/= [...] last reviewed 2021. Blood 07/27/2023 8:57 AM WHOLESALE ACCOUNT EXECUTIVE 07/27/2023 9:13 AM WHOLESALE ACCOUNT EXECUTIVE us Carlota Blum MD LAB BLOOD ORDERABLES F inal Result Performing Organization Address City/[facility]/ZIP Co de Phone Number [facility] Department [place] [address] * Lipid panel (11/13/2020 8:46 AM CDT) [...] factors. LDL-C is now calculated using the Nando calculation, which is a validated novel method providing better accuracy than the Friedewald equation in the estimation of LDL-C. Norberto BEDOLLA et al. TEGAN. 2013;310(19): 1301-7520 (http://education.THINK360/faq/PFV865) Chol/HDL ratio 3.1 <5.0 (calc) [facility] [...] BLOOD ORDERABLES Final Result Performing Organization Address City/State/[facility] de Phone Number [employer] [address] [place] [address] * (ABNORMAL) Hemoglobin A1c (03/11/2019 12:48 PM CDT) Hgb A1C 7.5(H) 4.0 - 5.6 % [facility] Estimated Average Glucose 169 mg/dL [facility] Comment: The ADA recommends reporting an estimated Average Glucose (eAG) with all Hemoglobin A1c results using the equation derived from a study of 507 normal and diabetic adults. Minority populations were underrepresented and children were not included. (Diabetes Care 31:9297-4908, 2008). The eAG is not equivalent to a fasting glucose. Blood specimen (specimen) 03/11/2019 12:48 PM CDT 03/11/2019 12:59 PM CDT Alvaro Ortez DO LAB BLOOD ORDERABLES Fi nal Result [facility] Department [place] [address] from Last 3 Months or Most Recently Relevant to Health Maintenance Insurance [facility] MEDIC[facility] ADVANTAGE [facility]IC[facility] [id number] [place] [address] MEDICARE UHC MEDICARE ADVANTAGE UHC MEDICARE ADVANTAGE Advance Directives For more information, please contact: [phone] * Full Code (Latest Code Status on File) Date Activated Date Inactivated Comments 09/07/2024 7:02 AM 09/07/2024 1:03 PM * Full Code Date Activated Date Inactivated Comments 01/22/2024 12:34 PM 01/22/2024 7:05 PM * Full Code Date Activated Date Inactivated Comments 07/27/2023 11:35 AM 07/29/2023 6:04 PM * Full Code Date Activated Date Inactivated Comments 03/11/2019 9:03 PM 03/16/2019 8:04 PM Care Teams Infant And Toddler Teacher Relationship Specialty Start Date End Date Liset Haynes MD PCP - General Family Medicine 08/05/22
--- OUTSIDE RECORDS SUMMARY | 2024-11-30 08:57 | XMS_ITS | Clinical Summary ---
Author Organization [facility] Address [address], [address] [address] Phone Care Team Providers Care Speech Therapy Teacher Name Role Phone Christopher Diop MD Primary Care Provider [phone] Mayra Casper MD Unavailable [phone] Allergies No known active allergies Medications tamsulosin [...] Tabs by mouth daily. Active Probiotic Product (eyetok HEALTH PO) Take by mouth. Acti ve [...] Job Start Date Job End Date retired-from [employer] Not on file Not on file Not [...] age to complete this topic Care Teams Speech Therapy Teacher Relationship Specialty Start Date End Date Christopher Diop MD [address] [place] [address] PCP - General Family Medicine 03/11/17 Mayra Casper MD [address] [place] [address] Consulting Physician Gastroenterology 07/30/17
--- OUTSIDE RECORDS SUMMARY | 2024-11-30 08:57 | XMS_ITS | Clinical Summary ---
Author Organization [facility] Address [address] [place] [address] Care Team Providers Care Nursing Manager Name Role Phone Unavailable Primary Care Provider Unavailabl e Social History Tobacco Use Types Packs/Day Years Used Date Smoking Tobacco: Never Assessed Sex and Gender Information Value Date Recorded Sex Assigned at Not on file Legal Sex Male 5:58 PM STAFF WRITER Gender Identity Not on file Sexual Orientation Not on file Plan of Treatment Health Maintenance Due Date Last Done Comments DTaP, Tdap and Td Vaccines ( 1 - Tdap) 1961 Pneumococcal Vaccine: 50+ Ye ars (1 of 1 - PCV) 1992 Zoster Vaccines (1 of 2) 1992 RSV Immunization or 60+ Years (1 - 1-dose 75+ series) 2017 COVID-19 Vaccine ( - 2023-2 5 season) 2024 Meningococcal B Vaccine Aged Out No l onger eligible based on patient's age to complete this topic Meningococcal Vaccine Aged Out No lucas keyanna eligible based on patient's age to complete this topic RSV Immunizations Under 20 Months Aged Out No longer eligible based on patient's age to complete this topic
--- OUTSIDE RECORDS SUMMARY | 2024-11-30 08:57 | XMS_ITS | Encounter Summary ---
Author Organization [facility] Address [address] [facility] [place] [address] Phone Care Team Providers Care Drug Discovery Informatics Specialist Name Role Phone Myron Diop MD Primary Care Provider [phone] Mayra Casper MD Unavailable [phone] Reason for Visit * Reason Comments Medication Refill Encounter Details Date Type Department Care Team (Late st Contact Info) Description 07/11/2020 Refill [facility] [address] [place] [address] Rosa Isela Boo Luz, PAC [address] [place] [address] Medication Refill Social History Tobacco Use Types [...] Job Start Date Job End Date retired-from [employer] Not on file Not on file Not on file documented as of this encounter Miscellaneous Notes * Telephone Encounter - Kelly Hodge CMA - 07/11/2020 1:17 PM ECONOMETRICS PROFESSOR Patients was notified on 03/29/2020 that refills after that were to go to primary care provider. verbalized understanding OMETRICS PROFESSOR documented in this encounter Plan of Treatment Not on file documented as of this encounter Visit Diagnoses Not on filedocumented in this encounter Care Teams Drug Discovery Informatics Specialist Relationship Specialty Start Date End Date Myron Diop MD [address] [place] [address] PCP - General Family Medicine 03/11/17 Mayra Casper MD [address] [place] [address] Consulting Physician Gastroenterology 07/30/17 documented as of this encounter
--- OUTSIDE RECORDS SUMMARY | 2024-11-30 08:57 | XMS_ITS | Referral Summary ---
Author Organization [facility] Address [facility] [place] [address] Care Team Providers Care Electrical Systems Drafter Name Role Phone Liset Haynes MD Primary Care Provider [phone] Encounters Date Type Department Care Team Description 5 3:00 PM ACCOUNT SUPPORT ANALYST Office Visit [facility] Cardiology at [address] [place] [address] Collin Rojas MD Paroxysmal atrial fibrillation (HCC) (Primary Dx) 5 7:46 AM ACCOUNT SUPPORT ANALYST Anesthesia Event [facility] [address] [place] [phone] Skyler Patricia MD Chambers, Megan Michelle, SYSTEMS ACCOUNTANT 5 6:40 AM ACCOUNT SUPPORT ANALYST Lab [facility] Outpatient Lab [address] [place] [id number] Pre-procedure lab exam; 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) 5 8:30 AM ACCOUNT SUPPORT ANALYST - 5 9:00 AM ACCOUNT SUPPORT ANALYST Surgery [facility] [address] [place] [phone] Taras Soriano MD ESOPHAGOGASTRODUODENOSCOPY ESOPHAGEAL GUIDE WIRE 5 6:58 AM ACCOUNT SUPPORT ANALYST - 5 9:03 AM ACCOUNT SUPPORT ANALYST Hospital Encounter [facility] [address] [place] [place] [phone] Taras Soriano MD Discharge Disposition: Discharge to home or self care 5 Telephone [facility] [address] [facility] [address]th [place] [address] [place] [address] Alina Martin RMA PRE PROCEDURE ASSESSMENT 5 Orders Only [facility] [address] [facility] 12th [place] [address] [place] [address] Taras Soriano MD Esophageal dysphagia [...] 07/28/2023 Assessment & Plan (07/28/2023 1:21 PM ACCOUNT SUPPORT ANALYST): 07/28 medications reviewed and updated through contact with [facility] (subarachnoid hemorrhage) 07/27/2023 Assessment & Plan (07/29/2023 7:30 AM ACCOUNT SUPPORT ANALYST): - Neurosurgery consulted - Repeat head CT [...] 07/27/2023 Assessment & Plan (07/27/2023 2:21 PM ACCOUNT SUPPORT ANALYST): - PRS consulted - s/p repair with 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 - Bacitracin TID x 3 days, then vaseline - HOB elevation - Pending recovery or discharge, please call [phone] or [phone] to schedule follow-up within 1-2 weeks to be seen by an BURT Left knee pain 07/27/2023 Assessment & Plan (07/28/2023 12:59 PM ACCOUNT SUPPORT ANALYST): - XR left knee: negative for acute fracture Polycythemia 07/27/2023 Assessment & Plan (07/28/2023 12:59 PM ACCOUNT SUPPORT ANALYST): #coagulopathy - last PE in per chart [...] 07/27/2023 Assessment & Plan (07/27/2023 2:50 PM ACCOUNT SUPPORT ANALYST): - continue home levothyroxine Elevated red blood cell count 07/21/2023 Closed fracture of left distal fibula 03/11/2019 Overview (03/11/2019): Added automatically from request for surgery [id number] Acute pain due to trauma 03/11/2019 Type 2 diabetes mellitus, wi th long-term current use of insulin 03/11/2019 Assessment & Plan (07/28/2023 1:07 PM ACCOUNT SUPPORT ANALYST): #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, [...] Hyperlipidemia associated with type 2 diabetes ash sheng 02/08/2019 Assessment & Plan (08/06/2021 12:23 PM ACCOUNT SUPPORT ANALYST): Cholesterol <200 mg/dL 142 137 R, CM 116 Low R 118 R, CM HDL > OR = 40 mg/dL 46 41 R, CM 34 Low R 27 Low R, CM Triglycerides <150 mg/dL 84 83 R, CM 80 R 117 R, CM LDL mg/dL (calc) 80 He remains at goal on lipitor 40 mg so will continue Assessment & Plan (08/15/2020 12:58 PM ACCOUNT SUPPORT ANALYST): He is on lipitor 20 mg= TC 151/HDL 41/ TG 105/ LDL 89 He has been averaging in the 80 range the past 3 years so am going to the 40 mg dosing to get it down below 70 as he has no sx on the 20 Assessment & Plan (08/17/2019 12:02 PM ACCOUNT SUPPORT ANALYST): TC 137/LDL 79 on lipitor 20 mg and at goal Assessment & Plan (02/08/2019 1:08 PM CDT): His LDL is at goal Presence of IVC filter 09/28/2018 Bruising 03/19/2017 Chronic anemia 03/19/2017 Edema 03/19/2017 Pulmonary embolism without acute cor pulmonale 0 02/10/2017 Assessment & Plan (07/28/2023 11:41 AM ACCOUNT SUPPORT ANALYST): - Hold warfarin - s/p IVC filter Assessment & Plan (07/21/2017 12:18 PM ACCOUNT SUPPORT ANALYST): Unfortunately, he needs anticoagulation. A recent venous [...] 01/20/2017 Assessment & Plan (08/17/2019 12:05 PM ACCOUNT SUPPORT ANALYST): 1. Normal global and regional left ventricular [...] medication Assessment & Plan (08/11/2018 10:38 AM ACCOUNT SUPPORT ANALYST): He remains on flecanide without sx; EKG last January= NSR; Holter in 2016= NSR, today EKG= NSR, 1st degree AVB; intervals ok; will continue warfarin more for 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, as he has been in rhythm since 2015 Assessment & Plan (07/21/2017 12:27 PM ACCOUNT SUPPORT ANALYST): No diagnostic ST changes. Global left ventricular [...] 01/20/2017 Assessment & Plan (07/27/2023 2:41 PM ACCOUNT SUPPORT ANALYST): See Pulmonary Embolism Assessment & Plan (01/20/2017 [...] elective Lexiscan nuclear stress test over at [facility] which is convenient. If this is negative and since pulmonary is no from there mechanism. It may be worthwhile to consider some type of an alternate exercise program such as swimming, i.e. water aerobic Pure hypercholesterolemia 01/20/2017 Assessment & Plan (07/27/2023 2:42 PM ACCOUNT SUPPORT ANALYST): - Continue home Lipitor Assessment & Plan (02/08/2019 1:06 PM CDT): SCRIBED Cholesterol, Total l - h 151 SCRIBED HDL l - h 45 SCRIBED LDL l - h 87 SCRIBED Triglycerides l - h 95 His LDL is at goal on lipitor 20 mg a day Assessment & Plan (08/11/2018 10:31 AM ACCOUNT SUPPORT ANALYST): Lipid profile today=TC 170/ HDL 55/ TG [...] lipitor Assessment & Plan (07/21/2017 12:22 PM ACCOUNT SUPPORT ANALYST): Todays lipid profile= TC 151/ HDL 45/ [...] 01/02 Assessment & Plan (07/27/2023 2:47 PM ACCOUNT SUPPORT ANALYST): - BMI 44.94 kg/m2 on admission Assessment & Plan (02/08/2019 2:11 PM CDT): He continues to work with diet and exercise Assessment & Plan (08/11/2018 10:35 AM ACCOUNT SUPPORT ANALYST): He continues to work with calorie restriction and ambulation Assessment & Plan (01/27/2018 11:21 AM CDT): He works with diet, exercise limited as he walks with a cane Assessment & Plan (07/21/2017 12:31 PM ACCOUNT SUPPORT ANALYST): He continues to work with diet Assessment & Plan (02/10/2017 1:56 PM CDT): Need for wt loss discussed. Recs: 1) continue diet and lifestyle modifications. Metastatic neoplasm 07/18/2016 Benign paroxysmal positional vertigo 09/20/2015 Pulmonary embolism 08/09/2015 Paroxysmal atrial fibrillation 08/09/2015 Assessment & Plan (07/27/2023 2:57 PM ACCOUNT SUPPORT ANALYST): - Continue home flecainide - Continue home metoprolol - suppressed on warfarin, flecainide; follows with cardiology outpatient - last TTE in 2019 w/ LVEF 55% and no obvious structural issues Assessment & Plan (08/06/2021 12:26 PM ACCOUNT SUPPORT ANALYST): He has had no recurrences since last year; echo normal, So I made no changes He is protected with Warfarin, on tambocor and metoprolol which I would continue Assessment & Plan (08/15/2020 12:39 PM ACCOUNT SUPPORT ANALYST): He has had recurrent episodes of atrial [...] 07/12/2015 Assessment & Plan (07/28/2023 11:47 AM ACCOUNT SUPPORT ANALYST): - 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 on chronic suppressive doxycycline since then per ID - doxycycline reordered Arthritis 12/17/2009 Hypertension 12/17/2009 Assessment & Plan (08/06/2021 12:26 PM ACCOUNT SUPPORT ANALYST): His BP remains at goal on the BB, so will continue Assessment & Plan (08/15/2020 12:34 PM ACCOUNT SUPPORT ANALYST): His blood pressure is at goal Assessment & Plan (08/17/2019 12:00 PM ACCOUNT SUPPORT ANALYST): His BP remains at goal Assessment & Plan (02/08/2019 1:05 PM CDT): His BP remains at goal Assessment & Plan (08/11/2018 10:26 AM ACCOUNT SUPPORT ANALYST): His BP is at goal Immunizations Immunization [...] on file Legal Sex Male 3:18 AM ACCOUNT SUPPORT ANALYST Gender Identity Not on file Sexual Orientation Not on file Last Filed Vital Signs Vital Sign Reading Time Taken Comments Blood Pressure 108/70 10/07/2024 2:53 PM ACCOUNT SUPPORT ANALYST Pulse 62 10/07/2024 2:53 PM ACCOUNT SUPPORT ANALYST Temperature 36.3 C (97.3 F) 09/07/2024 7:18 AM ACCOUNT SUPPORT ANALYST Respiratory Rate 18 09/07/2024 8:20 AM ACCOUNT SUPPORT ANALYST Oxygen Saturation 94% 10/07/2024 2:53 PM ACCOUNT SUPPORT ANALYST Inhaled Oxygen Concentration - - Weight 155.6 kg (343 lb) 10/07/2024 2:53 PM ACCOUNT SUPPORT ANALYST Height 188 cm (6' 2 ) 10/07/2024 2:53 PM ACCOUNT SUPPORT ANALYST Body Mass Index 44.04 10/07/2024 2:53 PM ACCOUNT SUPPORT ANALYST Plan of Treatment Not on file Procedures Procedure Name Priority Date/Time Associated Diagnosis Comments ENDO ADD ON ESOPHAGOGASTRODUODENOSCOPY INJECTION SUBMUCOSAL 09/07/2024 7:46 AM ACCOUNT SUPPORT ANALYST Esophageal dysphagia ESOPHAGOGASTRODUODENOSCOPY ESOPHAGEAL GUIDE WIRE 09/07/2024 7:46 AM ACCOUNT SUPPORT ANALYST Esophageal dysphagia EGD 09/07/2024 7:34 AM ACCOUNT SUPPORT ANALYST POCT GLUCOSE DEVICE Routine 09/07/2024 7:26 AM ACCOUNT SUPPORT ANALYST PROTIME-INR STAT 09/07/2024 6:48 AM ACCOUNT SUPPORT ANALYST Pre-procedure lab exam 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) EGFR STAT 07/27/2023 8:57 AM ACCOUNT SUPPORT ANALYST LIPID PANEL Routine 11/13/2020 8:46 AM CDT HEMOGLOBIN A1C STAT 03/11/2019 12:48 PM CDT from Last 3 Months or Most Recently Relevant to Health Maintenance Results * EGD (09/07/2024 7:34 AM ACCOUNT SUPPORT ANALYST) Anatomical Region Laterality Modality Other Narrative Procedure Note Taras Soriano MD - 09/07/2024 7:34 AM CST ENDOSCOPY LAB Patient Name: Neal Amaro Procedure Date: 09/07/2024 7:34 AM Admit Type: Outpatient Room: [facility] Date of : 1940 Instrument Name: SALIMA Gender: Male Note Status: Finalized Procedure: Upper [...] Result * POCT glucose (09/07/2024 7:26 AM ACCOUNT SUPPORT ANALYST) Glucose, POC 121 70 - 199 mg/dL Comment: For Glucose values <35 mg/dl when Hematocrit is >60 mg/dl,the test may not accurately detect significant hypoglycemia,and testing in the Laboratory should be considered if clinically indicated. Blood 09/07/2024 7:26 AM ACCOUNT SUPPORT ANALYST 09/07/2024 7:26 AM ACCOUNT SUPPORT ANALYST Taras Soriano MD LAB POCT ORDERABLES - DEVICE Final Result [facility] [address] Department [place] [address] * (ABNORMAL) Protime-INR (09/07/2024 6:48 AM ACCOUNT SUPPORT ANALYST) PT 13.1(H) 9.7 - 13.0 sec INR 1.21(H) 0.90 - 1.20 AM[facility] Comment: Interpretive data Oral anticoagulant therapeutic ranges: Venous thromboembolism prophylaxis or treatment: 2.0-3.0 CARDIOLOGY Standard range: 2.0-3.0 High-intensity range: 2.5-3.5 Refer to indication-specific guidelines for appropriate target ranges for prosthetic heart valve replacement. Current interpretive data was last revised on 2019. Blood 09/07/2024 6:48 AM ACCOUNT SUPPORT ANALYST 09/07/2024 7:01 AM ACCOUNT SUPPORT ANALYST Narrative [facility] - 09/07/2024 7:15 AM ACCOUNT SUPPORT ANALYST UPPER ENDOSCOPY SCHEDULED AT 8:30 AM us Taras Soriano MD LAB BLOOD ORDERABLES Final Result [facility] [address] Department [place] [address] * eGFR (07/27/2023 8:57 AM ACCOUNT SUPPORT ANALYST) eGFR 60 >=60 mL/min/1. 73 m2 [facility] Comment: Interpretive Data Reference Interval Normal >/= [...] last reviewed 2021. Blood 07/27/2023 8:57 AM ACCOUNT SUPPORT ANALYST 07/27/2023 9:13 AM ACCOUNT SUPPORT ANALYST us Carlota Blum MD LAB BLOOD ORDERABLES F inal Result [facility] Department [place] [address] * Lipid panel (11/13/2020 8:46 AM CDT) Pathologist [facility] Cholesterol 142 <200 mg/dL [facility] [...] of LDL-C. Norberto SS et al. TEGAN. 2013;310(95): 6305-7255 (http://education.PowerFile/faq/GLW258) Chol/HDL ratio 3.1 <5.0 (calc) [facility] Non-HDL, (LDL+VLDL) 96 <130 mg/dL (calc) [facility] Comment: For patients with diabetes plus 1 major ASCVD risk factor, treating to a non-HDL-C goal of <100 mg/dL (LDL-C of <70 mg/dL) is considered a therapeutic option. 11/13/2020 8:46 AM CDT 11/13/2020 8:47 AM CDT [facility] - 11/14/2020 2:24 AM CDT FASTING:YES FASTING: YES Norberto Cordero DO LAB BLOOD ORDERABLES Final Result [facility] [address] [facility] [place] [address] * (ABNORMAL) Hemoglobin A1c (03/11/2019 12:48 PM CDT) Pathologist [facility] Hgb A1C 7.5(H) 4.0 - 5.6 % [facility] Estimated Average Glucose 169 mg/dL [facility] Comment: The ADA recommends reporting an estimated Average Glucose (eAG) with all Hemoglobin A1c results using the equation derived from a study of 507 normal and diabetic adults. Minority populations were underrepresented and children were not included. (Diabetes Care 31:8024-5796, 2008). The eAG is not equivalent to a fasting glucose. Blood specimen (specimen) 03/11/2019 12:48 PM CDT 03/11/2019 12:59 PM CDT Alvaro Ortez DO LAB BLOOD ORDERABLES [facility] Result [facility] Department [place] [address] from Last 3 Months or Most Recently Relevant to Health Maintenance Insurance [facility] MEDICARE ADVANTAGE [facility]IC[facility] Address: [address] [place] [address] [facility] MEDICARE [address] MEDICARE [address] MEDICARE ADVANTAGE [facility] MEDICARE ADVANTAGE Advance Directives For more information, please contact: [phone] * Full Code (Latest Code Status on File) Date Activated Date Inactivated Comments 09/07/2024 7:02 AM 09/07/2024 1:03 PM * Full Code Date Activated Date Inactivated Comments 01/22/2024 12:34 PM 01/22/2024 7:05 PM * Full Code Date Activated Date Inactivated Comments 07/27/2023 11:35 AM 07/29/2023 6:04 PM * Full Code Date Activated Date Inactivated Comments 03/11/2019 9:03 PM 03/16/2019 8:04 PM Care Teams Electrical Systems Drafter Relationship Specialty Start Date End Date Liset Haynes MD PCP - General Family Medicine 08/05/22
--- OUTSIDE RECORDS SUMMARY | 2024-11-30 08:57 | XMS_ITS | Continuity of Care Document ---
Author Organization [facility] Address [address] [place] [address] Phone Care Team Providers Care Emergency Department Director Name Role Phone Julisa Mcintyre Unavailable Unavailable [...] Diagnoses Date Provider Providers Copied on Encounter [facility], [address], [place], [place], [id number], [place] tel:[phone] [facility] No Information 0 Miguelina Egan. [address], [place], [address], [place]. tel:[phone] [facility], [address], [place], [place], [id number], [place] tel:[phone] [facility] No Information 0 Miguelina Rodriguezn. [address], [place], [place], [facility], [place]. tel:[phone] [facility], [address], [place], [place], [id number], [place] tel:[phone] [facility] No Information 0 Miguelina Julisa. [address], [place], [facility], [place]. tel:[phone] Office/outpati ent Visit, [facility], [address] [place] [address] [address], [place], [place], [id number], tel:[phone] [facility] No Information 0 Miguelina Rodriguezn. [address], [place], [facility], [place]. tel:[phone] Office/outpati ent Visit, [facility], [address], [place], [place], [id number], [place] tel:[phone] [facility] No Information Dec-2 9-200 9 Miguelina Julisa. [address] , [address], [place], [facility], [place]. tel:[phone] [facility], [address], [place], [place], [id number], [place] tel:[phone] [facility] No Information Oct-2 7-200 9 Miguelina Julisa. [address], [place], [facility], [place]. tel:[phone] [facility], [address], [place], [place], [id number], [place] tel:[phone] [facility] No Information Oct-0 6-200 9 Mcintyre Julisa. [address], [place], [facility], [place]. tel:[phone] [facility], [address], [place], [place], [id number], [place] tel:[phone] [facility] No Information Sep-2 4-200 9 Mcintyre Julisa. [address], [place], [facility], [place]. tel:[phone] [facility], [address], [place], [place], [id number], [place] tel:[phone] [facility] No Information Sep-2 3-200 9 Mcintyre Julisa. [address], [place], [facility], [place]. tel:[phone] [facility], [address] [place] [address] [address], [place], [place], [id number], [place] tel:[phone] [facility] No Information Sep-1 5-200 9 Miguelina Rodriguezn. [address], [place], [facility], [place]. tel:[phone] [facility], [address], [place], [place], [id number], [place] tel:[phone] [facility] No Information Sep-1 0-200 9 Miguelina Julisa. [address], [place], [facility], [place]. tel:[phone] [facility], [address], [place], [place], [id number], [place] tel:[phone] [facility] No Information Sep-0 9-200 9 Miguelina Julisa. [address], [place], [facility], [place]. tel:[phone] Office Consultation [facility], [address], [place], [place], [id number], [place] tel:[phone] [facility] No Information 9 Miguelina Egan. [address], [place], [address], [place]. tel:[phone] Family History Family Member Type Diagnosis Age At Onset No Information Payers Payer name Insurance type Covered libertarian ID Authoriza tion(s) No Information Social History [...]
--- OUTSIDE RECORDS SUMMARY | 2024-11-30 08:57 | XMS_ITS ---
Author Organization [facility] Address [address] [place] [address] Care Team Providers Care Superintendent Generating Plant Name Role Phone Liset Haynes MD Primary Care Provider [phone] Active Problems Problem Noted Date Diagnosed Date Dysphagia 09/17/2023 Encounter for medication review 07/28/2023 Assessment & Plan (07/28/2023 1:21 PM HARVESTING CONTRACTOR): 07/28 medications reviewed and updated through contact with patient's [facility] (subarachnoid hemorrhage) 07/27/2023 Assessment & Plan (07/29/2023 7:30 AM HARVESTING CONTRACTOR): - Neurosurgery consulted - Repeat head CT [...] 07/27/2023 Assessment & Plan (07/27/2023 2:21 PM HARVESTING CONTRACTOR): - PRS consulted - s/p repair with 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 - Bacitracin TID x 3 days, then vaseline - HOB elevation - Pending recovery or discharge, please call [phone] or [phone] to schedule follow-up within 1-2 weeks to be seen by an BURT Left knee pain 07/27/2023 Assessment & Plan (07/28/2023 12:59 PM HARVESTING CONTRACTOR): - XR left knee: negative for acute fracture Polycythemia 07/27/2023 Assessment & Plan (07/28/2023 12:59 PM HARVESTING CONTRACTOR): #coagulopathy - last PE in per chart [...] 07/27/2023 Assessment & Plan (07/27/2023 2:50 PM HARVESTING CONTRACTOR): - continue home levothyroxine Elevated red blood cell count 07/21/2023 Closed fracture of left distal fibula 03/11/2019 Overview (03/11/2019): Added automatically from request for surgery [id number] Acute pain due to trauma 03/11/2019 Type 2 diabetes mellitus, wi th long-term current use of insulin 03/11/2019 Assessment & Plan (07/28/2023 1:07 PM HARVESTING CONTRACTOR): #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, [...] 02/08/2019 Assessment & Plan (08/06/2021 12:23 PM HARVESTING CONTRACTOR): Cholesterol <200 mg/dL 142 137 R, CM 116 Low R 118 R, CM HDL > OR = 40 mg/dL 46 41 R, CM 34 Low R 27 Low R, CM Triglycerides <150 mg/dL 84 83 R, CM 80 R 117 R, CM LDL mg/dL (calc) 80 He remains at goal on lipitor 40 mg so will continue Assessment & Plan (08/15/2020 12:58 PM HARVESTING CONTRACTOR): He is on lipitor 20 mg= TC 151/HDL 41/ TG 105/ LDL 89 He has been averaging in the 80 range the past 3 years so am going to the 40 mg dosing to get it down below 70 as he has no sx on the 20 Assessment & Plan (08/17/2019 12:02 PM HARVESTING CONTRACTOR): TC 137/LDL 79 on lipitor 20 mg and at goal Assessment & Plan (02/08/2019 1:08 PM CDT): His LDL is at goal Presence of IVC filter 09/28/2018 Bruising 03/19/2017 Chronic anemia 03/19/2017 Edema 03/19/2017 Pulmonary embolism without acute cor pulmonale 0 02/10/2017 Assessment & Plan (07/28/2023 11:41 AM HARVESTING CONTRACTOR): - Hold warfarin - s/p IVC filter Assessment & Plan (07/21/2017 12:18 PM HARVESTING CONTRACTOR): Unfortunately, he needs anticoagulation. A recent venous [...] 01/20/2017 Assessment & Plan (08/17/2019 12:05 PM HARVESTING CONTRACTOR): 1. Normal global and regional left ventricular [...] medication Assessment & Plan (08/11/2018 10:38 AM HARVESTING CONTRACTOR): He remains on flecanide without sx; EKG last January= NSR; Holter in 2016= NSR, today EKG= NSR, 1st degree AVB; intervals ok; will continue warfarin more for 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, as he has been in rhythm since 2016 Assessment & Plan (07/21/2017 12:27 PM HARVESTING CONTRACTOR): No diagnostic ST changes. Global left ventricular [...] 01/20/2017 Assessment & Plan (07/27/2023 2:41 PM HARVESTING CONTRACTOR): See Pulmonary Embolism Assessment & Plan (01/20/2017 [...] elective Lexiscan nuclear stress test over at [facility] which is convenient. If this is negative and since pulmonary is no from there mechanism. It may be worthwhile to consider some type of an alternate exercise program such as swimming, i.e. water aerobic Pure hypercholesterolemia 01/20/2017 Assessment & Plan (07/27/2023 2:42 PM HARVESTING CONTRACTOR): - Continue home Lipitor Assessment & Plan (02/08/2019 1:06 PM CDT): SCRIBED Cholesterol, Total l - h 151 SCRIBED HDL l - h 45 SCRIBED LDL l - h 87 SCRIBED Triglycerides l - h 95 His LDL is at goal on lipitor 20 mg a day Assessment & Plan (08/11/2018 10:31 AM HARVESTING CONTRACTOR): Lipid profile today=TC 170/ HDL 55/ TG [...] lipitor Assessment & Plan (07/21/2017 12:22 PM HARVESTING CONTRACTOR): Todays lipid profile= TC 151/ HDL 45/ [...] 01/02 Assessment & Plan (07/27/2023 2:47 PM HARVESTING CONTRACTOR): - BMI 44.94 kg/m2 on admission Assessment & Plan (02/08/2019 2:11 PM CDT): He continues to work with diet and exercise Assessment & Plan (08/11/2018 10:35 AM HARVESTING CONTRACTOR): He continues to work with calorie restriction and ambulation Assessment & Plan (01/27/2018 11:21 AM CDT): He works with diet, exercise limited as he walks with a cane Assessment & Plan (07/21/2017 12:31 PM HARVESTING CONTRACTOR): He continues to work with diet Assessment & Plan (02/10/2017 1:56 PM CDT): Need for wt loss discussed. Recs: 1) continue diet and lifestyle modifications. Metastatic neoplasm 07/18/2016 Benign paroxysmal positional vertigo 09/20/2015 Pulmonary embolism 08/09/2015 Paroxysmal atrial fibrillation 08/09/2015 Assessment & Plan (07/27/2023 2:57 PM HARVESTING CONTRACTOR): - Continue home flecainide - Continue home metoprolol - suppressed on warfarin, flecainide; follows with cardiology outpatient - last TTE in 2019 w/ LVEF 55% and no obvious structural issues Assessment & Plan (08/06/2021 12:26 PM HARVESTING CONTRACTOR): He has had no recurrences since last year; echo normal, So I made no changes He is protected with Warfarin, on tambocor and metoprolol which I would continue Assessment & Plan (08/15/2020 12:39 PM HARVESTING CONTRACTOR): He has had recurrent episodes of atrial [...] 07/12/2015 Assessment & Plan (07/28/2023 11:47 AM HARVESTING CONTRACTOR): - 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 - has been on chronic suppressive doxycycline since then per ID - doxycycline reordered Arthritis 12/17/2009 Hypertension 12/17/2009 Assessment & Plan (08/06/2021 12:26 PM HARVESTING CONTRACTOR): His BP remains at goal on the BB, so will continue Assessment & Plan (08/15/2020 12:34 PM HARVESTING CONTRACTOR): His blood pressure is at goal Assessment & Plan (08/17/2019 12:00 PM HARVESTING CONTRACTOR): His BP remains at goal Assessment & Plan (02/08/2019 1:05 PM CDT): His BP remains at goal Assessment & Plan (08/11/2018 10:26 AM HARVESTING CONTRACTOR): His BP is at goal Current Treatment and Therapy Plans No current plan information found. Past Treatment and Therapy Plans No past plan information found. Lifetime Dose Tracking * Chemical Lifetime Dose Automatic Entry Manual Entr y DLP 1,419 mGycm 1,419 mGycm 0 mGycm
--- OUTSIDE RECORDS SUMMARY | 2024-11-30 08:57 | XMS_ITS | Clinical Summary ---
Author Organization [facility] Address [address] [place] [address] Care Team Providers Care Professor Of Religion Name Role Phone Liset Haynes MD Primary Care Provider [phone] Allergies No known active allergies Medications amiodarone [...] Encounters Date Type Department Care Team Description 10/19/2024 External Device Data [facility] ABSTRACTION Provider, Abstract 10/08/2024 External Device Data [facility]STRACTION Provider, Abstract 10/08/2024 External Device Data [facility]STRACTION Provider, [...] Comments Blood Pressure 116/61 07/12/2024 1:03 PM ROLLER STAINER Pulse 61 07/12/2024 1:03 PM ROLLER STAINER Temperature 36.5 C (97.7 F) 07/12/2024 1:03 PM ROLLER STAINER Respiratory Rate 17 07/12/2024 1:03 PM ROLLER STAINER Oxygen Saturation 93% 07/12/2024 1:0 3 PM ROLLER STAINER Inhaled Oxygen Concentration - - Weight 155.6 kg (343 lb) 07/12/2024 1:0 3 PM ROLLER STAINER Patient is unable to step on scale,patient gave me a verbal current weight from recent. Height 188 cm (6' 2 ) 06/08/2018 8:37 AM ROLLER STAINER Body Mass Index 44.04 06/08/2018 8:37 AM ROLLER STAINER Plan of Treatment Upcoming Encounters Date Type Department Care Team (Late st Contact Info) Description 01/10/2025 11:30 AM CDT Office Visit [facility] Oncology and Hematology - [place] [address] [place] [address] Kendall Wills MD [address] [facility] [address] [place] [address] Health Maintenance Due Date Last Done Comments DIABETES ANNUAL FOOT EXAM 1960 DIABETES ANNUAL RETINAL EXAM 1960 DIABETES MICROALBUMIN ANNUAL SCREEN 1960 LDL CHOLESTEROL ANNUAL 1960 RSV VACCINE (60+ or ) (1 - 1-dose 75+ series) 2017 DIABETES HBA1C Q 6 MONTHS 09/11/2019 03/11/2019 INFLUENZA VACCINE (#1) 2024 9, 06/07/2018, 05/11/2017 COVID-19 Vaccine (2023- season) 2024, 09/13/2020 DTAP/TDAP/TD VACCINES (3 - T d or Tdap) 07/27/2033 07/27/2023, 05/10/2013, 01/24/2004 PNEUMOCOCCAL VACCINE 50+ YEARS Completed 0 08/03/2017, 07/31/2016, 05/10/2013 ZOSTER VACCINE Completed 08/22/2019, 06/09/2019 Insurance [employer] PPO [id number] PPO MCR Care Teams Professor Of Religion Relationship Specialty Start Date End Date Liset Haynes MD [address] [place] [address] PCP - General Family Practice 01/06/23
[2024-11-30 09:04] LABS: Basophils Percent Auto 0.5 % (0.2-1.2); Eosinophils Absolute Auto 0.1 K/mm3 (0-0.3); Hematocrit 54.2 % (42.0-52.0); Hemoglobin 16.8 g/dL (14.0-18.0); Immature Granulocyte Absolute 0.06 K/mm3 (0.00-0.031); Immature Granulocyte Percent A 0.9 % (0-0.5); Lymphocytes Absolute Auto 1.26 K/mm3 (0.9-3.2); Lymphocytes Percent Auto 19.3 % (18.3-44.2); Mean Corpuscular Hemoglobin 26.8 pg (26-34); Mean Corpuscular Volume 86.4 fl (80-100); Mean Platelet Volume 10.5 fl (7.4-10.4); Monocytes Absolute Auto 1.1 K/mm3 (0.1-0.6); Monocytes Percent Auto 16.6 % (2.6-8.5); Neutrophils Percent Auto 60.7 % (45.5-73.1); Platelet Count Result 272 k/mm3 (150-375); Red Blood Count 6.27 M/mm3 (4.6-6.20); Red Cell Distribution Width 20.7 % (11.5-14.5); White Blood Count 6.5 K/mm3 (4.5-10.0)
[2024-11-30 09:12] LABS: Alveolar/Arterial O2 Gradient 32.1 mmHg; Base Excess ABG -1.2 mEq/l (+/-2.0); Carboxyhemoglobin 1.2 % THb (0-2.0); Fractional Inspired Oxygen 21 %; HCO3 ABG 23.6 mEq/l (22.0-26.0); Methemoglobin ABG 0.2 %THb (0-1.5); Oxygen Content ABG 22.2 %vol (16.0-22.0); Oxygen Saturation ABG 93.9 % (95.0-100.0); Oxyhemoglobin 92.4 % THb (90.0-100.0); PO2 ABG 69.7 mmHg (80.0-100.0); PO2 FiO2 Ratio Arterial Blood 3.32 %; Reduced Hemoglobin 6.2 %THb (0-5.0); Total Hemoglobin 17.1 g/dL (12.0-18.0); pH ABG 7.389 (7.350-7.450)
[2024-11-30 09:12] LABS: Lactic Acid Reflex 2.7 mmol/L (0.7-2.0)
[2024-11-30 09:13] LABS: Alanine Aminotransferase 24 U/L (6-50); Albumin Level 3.9 g/dL (3.5-5.1); Alkaline Phosphatase 137 U/L (38-126); Anion Gap 8 mmol/L (4-12); Aspartate Amino Transferase 27 U/L (17-59); Bilirubin,Total 0.8 mg/dL (0.2-1.3); Blood Urea Nitrogen 19 mg/dL (9-20); Calcium 8.8 mg/dL (8.4-10.2); Carbon Dioxide 28 mmol/L (22-30); Chloride 104 mmol/L (98-107); Estimated CRCL calculation 60 ml/min; Estimated Glomerular Filt Rate 49; Glucose 154 mg/dL (65-110); Potassium 4.6 mmol/L (3.4-5.0); Sodium 140 mmol/L (137-145)
[2024-11-30 09:13] LABS: Device ROOM AIR; Modified Allen's Test Pass; Site Drawn LEFT RADIAL
[2024-11-30 09:31] LABS: NT Pro B Type Natriuretic Pept 168 pg/mL (19.9-100)
[2024-11-30 09:40] LABS: Influenza A QL RT-PCR Negative (Negative); Influenza B QL RT-PCR Negative (Negative); RSV RNA, RT-PCR Negative (Negative); SARS-CoV-2 RNA PCR Negative (Negative)
[2024-11-30 09:40] LABS: INR 2.4; Partial Thromboplastin Time 30.8 Seconds (22.3-36.8); Prothrombin Time 26.3 Seconds (11.1-14.7)
--- NOTE | 2024-11-30 09:43 | PCRCNOTE ---
CAME TO GIVE CONTINUOUS NEBULIZER TREATMENT; PT. WAS IN IMAGING.
[2024-11-30] MEDS: ALBUTEROL SULFATE NEB 2.5 MG/3 ML INH 10 MG INHALATION (09:45)
[2024-11-30] MEDS: IPRATROPIUM BR 0.02% INH SOLN 0.5 MG/2.5 ML VIAL 1 MG INHALATION (09:45)
[2024-11-30 11:00] LABS: Reflex Lactic Acid Yes or No Add Lactic
[2024-11-30 11:29] LABS: Lactic Acid 1.9 mmol/L (0.7-2.0)
--- NOTE | 2024-11-30 12:19 | PC.NURSE ---
Attempted to ambulate patient with pulse ox. patient not able to take more than 3 steps before needing to sit down and rest. patient O2 went down to 92% on room air, but patient was more SOB. Provider aware
--- NOTE | 2024-11-30 12:42 | ED.SOB ---
HPI - SOB/Dyspnea General Chief Complaint: Shortness of Breath/Dyspnea Stated Complaint: SOB Time Seen by Provider: 11/30/24 08:39 History of Present Illness HPI Narrative: Patient is an 84-year-old male who presents ER with shortness of breath. Woke up this morning feeling short of breath and has increased shortness of breath with exertion. Barely made it to his car. He was found to be hypoxic by EMS. He does have history of lung disease. Denies any new runny nose or sore throat or productive cough. He is anticoagulated on warfarin due to atrial fibrillation. No leg swelling. Poor historian. Related Data Home Medications ?Medication ?Instructions ?Recorded ?Confirmed ?Last Taken ?Type flecainide 50 mg tablet 50 mg PO Q12H 06/21/19 10/03/24 Unknown History docusate sodium 50 mg capsule 50 mg PO BID 06/14/20 10/03/24 Unknown History loratadine 10 mg capsule 10 mg PO DAILY 06/14/20 10/03/24 10/12/23 09:15 History lactobacillus combination no.9 4 4,000 mmu cells PO DAILY 11/07/21 10/03/24 Unknown History billion cell capsule (Adult 50 Plus Probiotic) acetaminophen 650 mg 650 mg PO Q12H PRN pain 1-4 10/12/23 10/03/24 Unknown History tablet,extended release (Tylenol Arthritis Pain) alpha lipoic acid 200 mg capsule 200 mg PO DAILY 04/13/24 10/03/24 Unknown History cholecalciferol (vitamin D3) 50 50 mcg PO DAILY 04/13/24 10/03/24 Unknown History mcg (2,000 unit) capsule Allergies Allergy/AdvReac Type Severity Reaction Status Date / Time No Known Drug Allergies Allergy Unknown Unknown Verified 10/03/24 11:24 Review of Systems Review of Systems: All systems reviewed & are unremarkable except as noted in HPI and below Constitutional: Constitutional: Reports no additional constitutional complaints Cardiovascular: Cardiovascular: Reports no additional cardiovascular complaints Respiratory: Respiratory: Reports no additional respiratory complaints Gastrointestinal: Gastrointestinal: Reports no additional gastrointestinal complaints Musculoskeletal: Musculoskeletal: Reports no additional musculoskeletal complaints FOR[facility]LY [facility] Past Medical History Medical History Arthritis of elbow, left, degenerative Arthritis of right shoulder region Right shoulder strain Right arm pain Olecranon bursitis of right elbow Atrial fibrillation Rupture of left Achilles tendon Left ankle pain Constipation High cholesterol SOB (shortness of breath) Vision changes COPD (chronic obstructive pulmonary disease) Osteomyelitis, chronic BPH (benign prostatic hyperplasia) History of hemorrhoids History of pulmonary embolism History of deep vein thrombosis (DVT) of lower extremity Acute exacerbation of chronic obstructive airways disease Pneumonia due to COVID-19 virus Hypothyroidism determined by thyroid function test Weakness of both lower extremities Diabetes mellitus with neuropathy Ankle syndesmosis disruption Ankle fracture, bimalleolar, closed Infection of spine Chronic antibiotic suppression Chronic anticoagulation Recurrent deep vein thrombosis (DVT) Hypertension Spleen absent Rotator cuff arthropathy of right shoulder Surgical History Surgical History Total knee replacement status H/O bilateral cataract extraction H/O splenectomy S/P rotator cuff repair H/O colonoscopy with polypectomy History of pancreatic surgery Removal of pancreatic mass ([facility]) History of embolic filter insertion Hx of hernia repair History of back surgery x2 ([facility]), x1 ([facility]) H/O total knee replacement Bilaterally Family History Family History Grandparent Diabetes mellitus Father Family history of cardiovascular disease Intracranial aneurysm Mother Dvt femoral (deep venous thrombosis) Sibling Throat cancer Sister Acute myocardial infarction Brother Social History Social History Social History: The patient is and remarried; he lives with his . Patient was smoking up to 3 packs of cigarettes a day. 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 He drinks occasionally denies any illicit drugs. He is listed as a DNR. He nominates His to be the individual who would make medical decisions for him if he is unable. Smoking packs per day: 1 Smoking cigarettes per day: 20.0 Years smoked: 12 Smoking pack-years: 12.00 Smoking status: Former smoker Tobacco type: cigarettes Second hand tobacco smoke exposure: No Smoking end date: 04/13/80 Alcohol intake: former Drinks per week: 1 Substance use: never Substance use type: does not use Do You Feel Safe in your Home?: Yes Lack of Transportation: No Lack of Food: Never True Current Housing: I Have Housing Concerned About Future Housing: No Difficulty Paying Gas/Electric Bills: No Difficulty Paying for Meds: No Currently Unemployed: No Education: Don't Know Difficulty w/ Childcare or Family Care: No Living arrangements: with family Occupation/Education: retired Gender identity (if verbalized by the patient): Male Additional gender identity comments: Lives with Sexual Orientation (if Verbalized by the Patient): Straight or Heterosexual Spiritual care concerns: No Agree to blood products: Yes Exam Narrative: GENERAL: Chronically ill-appearing, morbidly obese, and in no acute distress. HEAD: Normocephalic, atraumatic. ENT: Mucous membranes moist. NECK: Supple. CHEST: Clear to auscultation. No respiratory distress. HEART: Regular rate and rhythm. Normal peripheral pulses. ABDOMEN: Soft, nontender, nondistended. EXTREMITIES: Normal range of motion. No edema. SKIN: Warm, dry, no rash. NEURO: Alert and oriented x3. PSYCH: Normal mood and affect. Course Course Emergency Course: Patient received breathing treatment. Evaluation shows no pneumonia or pulmonary edema. No PE. Patient has his home walker and has been able to ambulate without hypoxia. He would like to go home. May have had COPD exacerbation recommend he use his albuterol 4 times a day will place him on a short course of steroids. and patient verbalized understanding. is comfortable and feels like he is at his normal baseline in terms of ambulation. Vital Signs Vital signs: Vital Signs Temperature 98.7 F 11/30/24 08:22 Pulse Rate 78 11/30/24 08:22 Respiratory Rate 20 11/30/24 08:22 Blood Pressure 104/45 L 11/30/24 08:22 Pulse Oximetry 98 11/30/24 08:22 Oxygen Delivery Room Air 11/30/24 08:22 Temperature 98.7 F 11/30/24 08:22 Pulse Rate 80 11/30/24 13:44 Respiratory Rate 21 H 11/30/24 13:44 Blood Pressure 98/55 L 11/30/24 13:44 Pulse Oximetry 100 11/30/24 13:44 Oxygen Delivery Room Air 11/30/24 08:30 MDM - SOB/Dyspnea Lab Data 11/30/24 08:46 11/30/24 08:46 Labs: Lab Results 11/30/24 11/30/24 11/30/24 Range/Units 08:45 08:46 08:46 WBC 6.5 (4.5-10.0) K/mm3 RBC 6.27 H (4.6-6.20) M/mm3 Hgb 16.8 (14.0-18.0) g/dL Hct 54.2 H (42.0-52.0) % MCV 86.4 (80-100) fl MCH 26.8 (26-34) pg MCHC 31.0 L (32-36) g/dl RDW 20.7 H (11.5-14.5) % Plt Count 272 (150-375) k/mm3 MPV 10.5 H (7.4-10.4) fl Immature Gran % (Auto) 0.9 H (0-0.5) % Neut % (Auto) 60.7 (45.5-73.1) % Lymph % (Auto) 19.3 (18.3-44.2) % Stearns % (Auto) 16.6 H (2.6-8.5) % Eos % (Auto) 2.0 (0-4.4) % Baso % (Auto) 0.5 (0.2-1.2) % Lymph # (Auto) 1.26 (0.9-3.2) K/mm3 Stearns # (Auto) 1.1 H (0.1-0.6) K/mm3 Eos # (Auto) 0.1 (0-0.3) K/mm3 Baso # (Auto) 0.0 (0.0-0.1) K/mm3 Abs Immat Gran (auto) 0.06 H (0.00-0.031) K/mm3 Absolute Neuts (auto) 4.0 (1.3-6.7) K/mm3 Absolute Nucleated RBC 0.000 (0.0-0.012) K/mm3 Nucleated RBC % 0.0 (0.0-0.2) % PT 26.3 H (11.1-14.7) Seconds INR 2.4 APTT 30.8 (22.3-36.8) Seconds Methemoglobin (0-1.5) %THb Sodium 140 (137-145) mmol/L Potassium 4.6 (3.4-5.0) mmol/L Chloride 104 (98-107) mmol/L Carbon Dioxide 28 (22-30) mmol/L Anion Gap 8 (4-12) mmol/L BUN 19 (9-20) mg/dL Creatinine 1.38 H (0.7-1.3) mg/dL Estim Creat Clear Calc 60 ml/min Estimated GFR 49 L (59 - ) Glucose 154 H (65-110) mg/dL Lactic Acid 2.7 H (0.7-2.0) mmol/L Calcium 8.8 (8.4-10.2) mg/dL Total Bilirubin 0.8 (0.2-1.3) mg/dL AST 27 (17-59) U/L ALT 24 (6-50) U/L Alkaline Phosphatase 137 H (38-126) U/L NT-Pro-B Natriuret Pep 168 H Cancelled (19.9-100) pg/mL Total Protein 8.0 (6.3-8.2) g/dL Albumin 3.9 (3.5-5.1) g/dL Influenza A (RT-PCR) (Negative) Influenza B (RT-PCR) (Negative) RSV (RT-PCR) (Negative) SARS-CoV-2 RNA (RT-PCR) (Negative) 11/30/24 11/30/24 11/30/24 Range/Units 08:53 09:08 11:10 WBC (4.5-10.0) K/mm3 RBC (4.6-6.20) M/mm3 Hgb (14.0-18.0) g/dL Hct (42.0-52.0) % MCV (80-100) fl MCH (26-34) pg MCHC (32-36) g/dl RDW (11.5-14.5) % Plt Count (150-375) k/mm3 MPV (7.4-10.4) fl Immature Gran % (Auto) (0-0.5) % Neut % (Auto) (45.5-73.1) % Lymph % (Auto) (18.3-44.2) % Stearns % (Auto) (2.6-8.5) % Eos % (Auto) (0-4.4) % Baso % (Auto) (0.2-1.2) % Lymph # (Auto) (0.9-3.2) K/mm3 Stearns # (Auto) (0.1-0.6) K/mm3 Eos # (Auto) (0-0.3) K/mm3 Baso # (Auto) (0.0-0.1) K/mm3 Abs Immat Gran (auto) (0.00-0.031) K/mm3 Absolute Neuts (auto) (1.3-6.7) K/mm3 Absolute Nucleated RBC (0.0-0.012) K/mm3 Nucleated RBC % (0.0-0.2) % PT (11.1-14.7) Seconds INR APTT (22.3-36.8) Seconds Methemoglobin 0.2 (0-1.5) %THb Sodium (137-145) mmol/L Potassium (3.4-5.0) mmol/L Chloride (98-107) mmol/L Carbon Dioxide (22-30) mmol/L Anion Gap (4-12) mmol/L BUN (9-20) mg/dL Creatinine (0.7-1.3) mg/dL Estim Creat Clear Calc ml/min Estimated GFR (59 - ) Glucose (65-110) mg/dL Lactic Acid 1.9 (0.7-2.0) mmol/L Calcium (8.4-10.2) mg/dL Total Bilirubin (0.2-1.3) mg/dL AST (17-59) U/L ALT (6-50) U/L Alkaline Phosphatase (38-126) U/L NT-Pro-B Natriuret Pep (19.9-100) pg/mL Total Protein (6.3-8.2) g/dL Albumin (3.5-5.1) g/dL Influenza A (RT-PCR) Negative (Negative) Influenza B (RT-PCR) Negative (Negative) RSV (RT-PCR) Negative (Negative) SARS-CoV-2 RNA (RT-PCR) Negative (Negative) ABG Data ABG results: 11/30/24 09:08 Puncture Site Left radial ABG pH 7.389 ABG pCO2 40.0 ABG pO2 69.7 L ABG PO2/FiO2 Ratio 3.32 ABG HCO3 23.6 ABG O2 Saturation 93.9 L ABG O2 Content 22.2 H ABG Base Excess -1.2 A-a Gradient 32.1 Oxyhemoglobin 92.4 Carboxyhemoglobin 1.2 Reduced Hemoglobin 6.2 H Total Hemoglobin 17.1 O2 Delivery Device Room air O2 Liters/Min 0.0 FiO2 21 Imaging Data Radiologist's impression: ITS Impressions Chest X-Ray 11/30/24 10:01 Impression: Probable mild bibasilar pulmonary edema. Chest CTA 11/30/24 12:35 Impression: No evidence of pulmonary embolus, aortic dissection, or aortic aneurysm. Probable mild hypoventilatory/atelectatic changes. Possible ankylosing spondylitis versus diffuse DISH. Discharge Plan Discharge Clinical Impression: COPD (chronic obstructive pulmonary disease) Qualifiers: COPD type: unspecified COPD Qualified Code(s): J44.9 - Chronic obstructive pulmonary disease, unspecified Patient Disposition: Home Condition: Stable Instructions: COPD (Chronic Obstructive Pulmonary Disease) (ED) Additional Instructions: Please return to the emergency department if you develop severe and persistent chest pain, difficulty breathing, dizziness, leg swelling or if you are coughing up blood as these can be signs of a medical emergency. Please call your doctor for a follow up appointment to determine the need for further testing. Take albuterol 4 puffs 4 times a day for the next 3-4 days. Take the prednisone as prescribed discontinue if you develop acid reflux or dark black stools. Patient Language: Indonesian Prescriptions: New prednisone 20 mg tablet 40 mg PO DAILY Qty: 10 0RF No Action acetaminophen [Tylenol Arthritis Pain] 650 mg tablet extended release 650 mg PO Q12H PRN (Reason: pain 1-4) flecainide 50 mg Tablet 50 mg PO Q12H diclofenac sodium 1 % gel 4 g topical QID Qty: 300 3RF Rx Instructions: apply to single knee, ankle, foot; for foot includes sole/toes/top of foot warfarin 6 mg tablet 6 mg PO DAILY Qty: 30 0RF Protocol: Dose Management Condition: Thursday Dose/Route: 6 mg Instruction: 1 x 6 mg tablet Condition: Thursday Dose/Route: 6 mg Instruction: 1 x 6 mg tablet Condition: Thursday Dose/Route: 6 mg Instruction: 1 x 6 mg tablet Condition: Thursday Dose/Route: 6 mg Instruction: 1 x 6 mg tablet Condition: Dose/Route: 6 mg Instruction: 1 x 6 mg tablet Condition: Thursday Dose/Route: 6 mg Instruction: 1 x 6 mg tablet Condition: Saturday Dose/Route: 6 mg Instruction: 1 x 6 mg tablet Protocol Text: Adjustment Start Date: Thursday11/29/24 INR Value: 2.2 INR Date: 11/25/24 Recheck Date: 12/29/24 triamcinolone acetonide 0.1 % cream 1 applic topical BID Qty: 80 0RF Adult 50 Plus Probiotic 4 billion cell capsule 4,000 mmu cells PO DAILY Rx Instructions: administer with a meal (DME) wheeled walker XL See Rx Instructions .Route .MEDSUPPLY Qty: 1 0RF Rx Instructions: As directed (DME) knee high medium compression stockings See Rx Instructions .Route .MEDSUPPLY Qty: 1 0RF Rx Instructions: As directed daily for leg edema (DME) diabetic shoes See Rx Instructions .Route .MEDSUPPLY Qty: 1 0RF Rx Instructions: As directed (DME) FreeStyle Santiago 3 Plus Sensor Device See Rx Instructions .Route Qty: 2 12RF Rx Instructions: As directed QID lidocaine [Salonpas (lidocaine)] 4 % adhesive patch,medicated 1 patch topical DAILY PRN (Reason: pain) Qty: 30 6RF Rx Instructions: Apply for 12 hours on and 12 hours off. loratadine 10 mg Capsule 10 mg PO DAILY docusate sodium 50 mg Capsule 50 mg PO BID cholecalciferol (vitamin D3) 50 mcg (2,000 unit) Capsule 50 mcg PO DAILY alpha lipoic acid 200 mg Capsule 200 mg PO DAILY (DME) NovoFine Plus 32 gauge x 1/6 needle See Rx Instructions .Route Qty: 100 5RF Rx Instructions: As directed TID to check glucose. (DME) OneTouch Ultra Test Strip See Rx Instructions .ROUTE .COMPLEX Qty: 100 3RF Dose Instruction: USE TO TEST BLOOD SUGAR THREE TIMES DAILY Rx Instructions: USE TO TEST BLOOD SUGAR THREE TIMES DAILY (DME) pen needle, diabetic [BD Ultra-Fine Blanca Pen Needle] 32 gauge x /32 needle See Rx Instructions .Route Qty: 100 3RF Rx Instructions: As directed four times daily with insulin albuterol sulfate [ProAir HFA] 90 mcg/actuation HFA aerosol inhaler 2 puff INHALATION Q2-4H PRN (Reason: shortness of breath or wheezing) Qty: 8.5 11RF Rx Instructions: Inhale two puffs by mouth every 2-4 hours as needed. insulin glargine 100 unit/mL solution 44 unit SUBCUT HS Qty: 20 12RF (DME) lancets [OneTouch Delica Plus Lancet] 33 gauge misc See Rx Instructions .Route Qty: 300 12RF Rx Instructions: As directed TID (DME) compression stockings knee high 15-20mmHG See Rx Instructions .Route .MEDSUPPLY Qty: 1 0RF Rx Instructions: As directed daily (DME) wheeled walker See Rx Instructions .Route .MEDSUPPLY Qty: 1 0RF Rx Instructions: As directed daily (DME) FreeStyle Santiago 3 Hawkeye Misc See Rx Instructions .Route Qty: 2 12RF Rx Instructions: As directed QID furosemide 20 mg tablet See Rx Instructions .ROUTE .COMPLEX Qty: 90 1RF Dose Instruction: TAKE 1 TABLET BY MOUTH EVERY DAY FOR 30 DAYS Rx Instructions: TAKE 1 TABLET BY MOUTH EVERY DAY FOR 30 DAYS omeprazole 20 mg capsule,delayed release(DR/EC) 20 mg PO DAILY Qty: 90 1RF metoprolol tartrate 25 mg tablet 12.5 mg PO BID Qty: 90 3RF baclofen 10 mg tablet 10 mg PO TID Qty: 270 1RF tamsulosin 0.4 mg capsule 0.8 mg PO DAILY Qty: 180 2RF warfarin 5 mg tablet 5 mg PO DAILY Qty: 30 6RF Protocol: Dose Management Condition: Thursday Dose/Route: 6 mg Instruction: 1 x 6 mg tablet Condition: Thursday Dose/Route: 6 mg Instruction: 1 x 6 mg tablet Condition: Thursday Dose/Route: 6 mg Instruction: 1 x 6 mg tablet Condition: Thursday Dose/Route: 6 mg Instruction: 1 x 6 mg tablet Condition: Dose/Route: 6 mg Instruction: 1 x 6 mg tablet Condition: Thursday Dose/Route: 6 mg Instruction: 1 x 6 mg tablet Condition: Thursday Dose/Route: 6 mg Instruction: 1 x 6 mg tablet Protocol Text: Adjustment Start Date: Thursday11/29/24 INR Value: 2.2 INR Date: 11/25/24 Recheck Date: 12/29/24 pregabalin 150 mg capsule 150 mg PO TID Qty: 270 1RF azelastine 137 mcg (0.1 %) spray,non-aerosol 137 mcg intranasal Q12H Qty: 30 2RF Rx Instructions: 2 spray administer into each nostril. every morning and night warfarin 1 mg tablet See Rx Instructions PO .COMPLEX Qty: 180 1RF Protocol: Dose Management Condition: Thursday Dose/Route: 6 mg Instruction: 1 x 6 mg tablet Condition: Thursday Dose/Route: 6 mg Instruction: 1 x 6 mg tablet Condition: Thursday Dose/Route: 6 mg Instruction: 1 x 6 mg tablet Condition: Thursday Dose/Route: 6 mg Instruction: 1 x 6 mg tablet Condition: Dose/Route: 6 mg Instruction: 1 x 6 mg tablet Condition: Thursday Dose/Route: 6 mg Instruction: 1 x 6 mg tablet Condition: Thursday Dose/Route: 6 mg Instruction: 1 x 6 mg tablet Protocol Text: Adjustment Start Date: Thursday11/29/24 INR Value: 2.2 INR Date: 11/25/24 Recheck Date: 12/29/24 Rx Instructions: Take 1-2 tab orally; to make 6mg and 7mg respectively Trelegy Ellipta 200-62.5-25 mcg blister with device 1 inh inhalation DAILY Qty: 60 5RF triamcinolone acetonide 0.1 % cream 1 applic topical BID Qty: 80 1RF Rx Instructions: bilateral feet levothyroxine 50 mcg tablet 50 mcg PO DAILY Qty: 90 2RF atorvastatin 20 mg tablet 20 mg PO DAILY Qty: 90 3RF Fiasp FlexTouch U-100 Insulin 100 unit/mL (3 mL) insulin pen See Rx Instructions subcut .COMPLEX Qty: 15 12RF Rx Instructions: Inject 8-10 units subcutaneously TID AC; dapagliflozin propanediol [Farxiga] 10 mg tablet 10 mg PO DAILY Qty: 90 1RF amoxicillin-pot clavulanate [Augmentin] 500-125 mg tablet 1 tablet PO DAILY Qty: 60 1RF Rx Instructions: permanent Follow-up/Referrals: Liset Haynes MD [Primary Care Provider] - 1 Week
--- NOTE | 2024-11-30 15:00 | PC.NURSE ---
patient ambulated with his home walker and was able to ambulate with steady gate. patients family states patient is at his baseline. patient O2 stayed around 96%
== END 2024-11-30 15:08 | disposition home or self-care (01) ==
PROVIDERS: Emergency Provider Emergency Medicine; PCP Family Medicine
DX: J44.9 Chronic obstructive pulmonary disease, unspecified (principal); Z20.822 Contact with and (suspected) exposure to COVID-19; I48.91 Unspecified atrial fibrillation; I10 Essential (primary) hypertension; E11.40 Type 2 diabetes mellitus with diabetic neuropathy, unspecified; E78.00 Pure hypercholesterolemia, unspecified; E03.9 Hypothyroidism, unspecified; N40.0 Benign prostatic hyperplasia without lower urinary tract symptoms; M19.011 Primary osteoarthritis, right shoulder; M19.022 Primary osteoarthritis, left elbow; Z66 Do not resuscitate; Z96.653 Presence of artificial knee joint, bilateral; Z86.711 Personal history of pulmonary embolism; Z86.718 Personal history of other venous thrombosis and embolism; Z87.01 Personal history of pneumonia (recurrent); Z86.16 Personal history of COVID-19; Z87.891 Personal history of nicotine dependence; Z90.81 Acquired absence of spleen; Z79.01 Long term (current) use of anticoagulants; I48.92 Unspecified atrial flutter; R00.0 Tachycardia, unspecified; R93.7 Abnormal findings on diagnostic imaging of other parts of musculoskeletal system
CPT/HCPCS: 36415; 36600; 71046; 71275; 80053; 82375; 82805; 83050; 83605; 83880; 85018; 85025; 85610; 85730; 87637; 93005; 94640; 99284; Q9967

== ENCOUNTER 2025-02-02 12:50 | Observation (INO) | payer MEDICARE, SELFPAY ==
[2025-02-02] VITALS (9 sets, daily range): BP systolic 123–150; BP diastolic 62–77; PULSE 59–71; RESP 16–20; TEMP 36.2–36.8; O2SAT 92–98; BMI 46.5
--- NOTE | ~2025-02-02 | US_ITS ---
EXAMINATION: US venous doppler LE RT DATE: 02/04/2025 08:35 INDICATION: Right calf pain TECHNIQUE: Grayscale ultrasound images without and with compression and Doppler ultrasound images of the right lower extremity veins were obtained. COMPARISON: None. FINDINGS: The visualized portions of right common femoral vein, profunda (deep) femoral vein, femoral vein, pop liteal vein, peroneal veins, posterior tibial veins, and greater saphenous vein outflow are patent. IMPRESSION: 1. No deep venous thrombosis. Reviewed, dictated and finalized at location A.
--- NOTE | ~2025-02-02 | XR_ITS ---
EXAMINATION: XR chest 1V portable DATE: 02/02/2025 14:26 INDICATION: Weakness TECHNIQUE: frontal view of the chest was obtained. COMPARISON: Chest radiograph and CT dated 11/30/2024 FINDINGS: Interstitial opacities in bilateral mid and lower lung zones with some bronchial wall thickening. Add itional hazy airspace opacities left mid to lower lung zone with blunting at the costophrenic angle c onsistent with small left pleural effusion and associated atelectasis and/or pneumonia. No pneumothor ax. Heart size within normal limits conifer AP technique with prominent left paracardial fat pad. IMPRESSION: 1. Interstitial opacities in bilateral mid and lower lung zones with bronchial wall thickening most l ikely mild pulmonary edema although differential includes bronchitis/pneumonia. 2. Small left pleural effusion with associated left basilar atelectasis and/or pneumonia. Reviewed, dictated and finalized at location B. IMPRESSION: 1. Interstitial opacities in bilateral mid and lower lung zones with bronchial wall thickening most likely mild pulmonary edema although differential includes bronchitis/pneumonia. 2. Small left pleural effusion with associated left basilar atelectasis and/or pneumonia.
--- NOTE | ~2025-02-02 | CT_ITS ---
EXAMINATION: CT brain wo con DATE: 02/05/2025 18:03 INDICATION: vision changes . TECHNIQUE: Computed tomography (CT) of the head was performed without intravenous contrast. The mA wa s adjusted according to patient size. Iterative reconstruction technique was employed. The dose-lengt h product was 756.67 mGy-cm. COMPARISON: 03/20/2024. FINDINGS: No acute intracranial hemorrhage or extra-axial fluid collection. No hydrocephalus, mass, or herniation. No acute ischemic infarct. Unremarkable dural venous sinus attenuation. No acute osseous abnormality. The aerated spaces are clear. Mild atrophy and chronic white matter change. Atherosclerotic intracranial calcification. Bilateral l ens replacements. IMPRESSION: No acute intracranial process. Reviewed, dictated and finalized at location K.
--- NOTE | ~2025-02-02 | CT_ITS ---
EXAMINATION: CT chest abdomen pelvis w con DATE: 02/02/2025 14:43 INDICATION: Chest and abdominal trauma post fall TECHNIQUE: Computed tomography (CT) of the chest, abdomen, and pelvis was performed with 100 mL Omnip aque-350 intravenous contrast. Automated exposure control and iterative reconstruction technique were employed. The dose-length product was 2016.58 mGy-cm. COMPARISON: Chest CT dated 11/30/[address] abdomen and pelvis dated 03/19 FINDINGS: CHEST CT: Small lung volumes with scattered mild dependent predominant atelectasis in both lungs. Calcified rig ht upper lobe nodule consistent with old granulomatous disease. No pulmonary hemorrhage, pulmonary ed katie, pneumonia, pleural effusion or pneumothorax. Heart size is normal. Atherosclerotic coronary farnaz ry calcifications. Prominent bilateral paracardial fat pads. Thoracic aorta is normal in caliber with no dissection or acute traumatic aortic injury. No pathologically enlarged thoracic lymphadenopathy. Multiple chronic healed left rib fractures as well as chronic nonunited fractures of the posterior l eft ninth and 10th ribs. There are bridging osteophytes at multiple levels consistent with diffuse id iopathic skeletal hyperostosis (DISH). No acute osseous abnormality. ABDOMEN/PELVIS CT: Calcified gallstones in the dependent aspect of the otherwise normal-appearing gallbladder. Liver is normal. No intra or extrahepatic biliary ductal dilation. Postoperative change of prior splenectomy a nd distal pancreas resection. Remaining head and uncinate process of the pancreas are unremarkable. 3 cm duodenal diverticulum arising from the second portion of the duodenum. Bilateral adrenal glands a re normal. There are bilateral renal cysts the largest on the right measuring 7.3 cm. Postoperative c hange of prior left upper quadrant ventral hernia mesh repair. Portions of the mesh repair and small portions of descending colon extend beyond the field of imaging. Large amount stool scattered through out the colon which could be seen with consultation. Small bowel and appendix are normal. There are d iverticula along the bladder likely related to chronic outlet obstruction from the enlarged prostate which measures 5.9 x 4.9 cm. No free intraperitoneal gas or fluid. No pathologically enlarged abdomin al or pelvic lymphadenopathy. Severe lower lumbar predominant spondylosis. L1 and L2 laminectomies wi th instrumented L1-L4 posterior spinal fusion with bilateral vertical calista and pedicle screw fixation. There are also bridging osteophytes at multiple levels consistent with diffuse idiopathic skeletal h yperostosis (DISH). Minimal remodeling of a chronic bone graft harvest site with residual lytic regio n in the left posterior iliac spine likely related to the bone graft harvest. Moderate bilateral hip osteoarthritis. No acute osseous abnormality. IMPRESSION: 1. No acute fracture or acute vascular or visceral organ injury in the chest, abdomen or pelvis. 2. Cholelithiasis. 3. 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 Reviewed, dictated and finalized at location B. IMPRESSION: 1. No acute fracture or acute vascular or visceral organ injury in the chest, a bdomen or pelvis. 2. Cholelithiasis. 3. Bladder diverticula likely related to chronic outlet obstruction from the en larged prostate.
--- NOTE | 2025-02-02 13:22 | ECG_ITS ---
Test Date: 2025-02-02 15:13:56 Measurements Intervals [place] Rate: 58 P: 68 [place]: 254 QRS: 35 QRSD: 106 T: 43 QT: 425 QTc: 420 Interpretive Statements SINUS BRADYCARDIA WITH FIRST DEGREE AV BLOCK Compared to ECG 11/30/2024 08:32:35 First degree AV block now present Atrial flutter no longer present Electronically Signed On 02-03-2025 12:41:34 CDT by Kalyan Loza M.D.
--- OUTSIDE RECORDS SUMMARY | 2025-02-02 13:28 | XMS_ITS | Clinical Summary ---
Author Organization [facility] Address [address] [place] [address] Care Team Providers Care Director Of Content Marketing Name Role Phone Liset Haynes MD Primary Care Provider [phone] Allergies Active Allergy Reactions Criticality Noted Date [...] 07/28/2023 Assessment & Plan (07/28/2023 1:21 PM FISHER PURSE SEINE): 07/28 medications reviewed and updated through contact [facility] (subarachnoid hemorrhage) 07/27/2023 Assessment & Plan (07/29/2023 7:30 AM FISHER PURSE SEINE): - Neurosurgery consulted - Repeat head CT [...] 07/27/2023 Assessment & Plan (07/27/2023 2:21 PM FISHER PURSE SEINE): - PRS consulted - s/p repair with 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 - Bacitracin TID x 3 days, then vaseline - HOB elevation - Pending recovery or discharge, please call [phone] or [phone] to schedule follow-up within 1-2 weeks to be seen by an BURT Left knee pain 07/27/2023 Assessment & Plan (07/28/2023 12:59 PM FISHER PURSE SEINE): - XR left knee: negative for acute fracture Polycythemia 07/27/2023 Assessment & Plan (07/28/2023 12:59 PM FISHER PURSE SEINE): #coagulopathy - last PE in per chart [...] 07/27/2023 Assessment & Plan (07/27/2023 2:50 PM FISHER PURSE SEINE): - continue home levothyroxine Elevated red blood cell count 07/21/2023 Closed fracture of left distal fibula 03/11/2019 Overview (03/11/2019): Added automatically from request for surgery [id number] Acute pain due to trauma 03/11/2019 Type 2 diabetes mellitus, wi th long-term current use of insulin 03/11/2019 Assessment & Plan (07/28/2023 1:07 PM FISHER PURSE SEINE): #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, [...] 02/08/2019 Assessment & Plan (08/06/2021 12:23 PM FISHER PURSE SEINE): Cholesterol <200 mg/dL 142 137 R, CM 116 Low R 118 R, CM HDL > OR = 40 mg/dL 46 41 R, CM 34 Low R 27 Low R, CM Triglycerides <150 mg/dL 84 83 R, CM 80 R 117 R, CM LDL mg/dL (calc) 80 He remains at goal on lipitor 40 mg so will continue Assessment & Plan (08/15/2020 12:58 PM FISHER PURSE SEINE): He is on lipitor 20 mg= TC 151/HDL 41/ TG 105/ LDL 89 He has been averaging in the 80 range the past 3 years so am going to the 40 mg dosing to get it down below 70 as he has no sx on the 20 Assessment & Plan (08/17/2019 12:02 PM FISHER PURSE SEINE): TC 137/LDL 79 on lipitor 20 mg and at goal Assessment & Plan (02/08/2019 1:08 PM CDT): His LDL is at goal Presence of IVC filter 09/28/2018 Bruising 03/19/2017 Chronic anemia 03/19/2017 Edema 03/19/2017 Pulmonary embolism without acute cor pulmonale 0 02/10/2017 Assessment & Plan (07/28/2023 11:41 AM FISHER PURSE SEINE): - Hold warfarin - s/p IVC filter Assessment & Plan (07/21/2017 12:18 PM FISHER PURSE SEINE): Unfortunately, he needs anticoagulation. A recent venous [...] 01/20/2017 Assessment & Plan (08/17/2019 12:05 PM FISHER PURSE SEINE): 1. 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 Global left ventricular [...] 01/20/2017 Assessment & Plan (07/27/2023 2:41 PM FISHER PURSE SEINE): See Pulmonary Embolism Assessment & Plan (01/20/2017 [...] elective Lexiscan nuclear stress test over at [facility] which is convenient. If this is negative and since pulmonary is no from there mechanism. It may be worthwhile to consider some type of an alternate exercise program such as swimming, i.e. water aerobic Pure hypercholesterolemia 01/20/2017 Assessment & Plan (07/27/2023 2:42 PM FISHER PURSE SEINE): - Continue home Lipitor Assessment & Plan (02/08/2019 1:06 PM CDT): SCRIBED Cholesterol, Total l - h 151 SCRIBED HDL l - h 45 SCRIBED LDL l - h 87 SCRIBED Triglycerides l - h 95 His LDL is at goal on lipitor 20 mg a day Assessment & Plan (08/11/2018 10:31 AM FISHER [employer] SEINE): Lipid profile today=TC 170/ HDL 55/ TG [...] lipitor Assessment & Plan (07/21/2017 12:22 PM FISHER PURSE SEINE): Todays lipid profile= TC 151/ HDL 45/ [...] 01/02 Assessment & Plan (07/27/2023 2:47 PM FISHER PUR[employer] SEINE): - BMI 44.94 kg/m2 on admission Assessment & Plan (02/08/2019 2:11 PM CDT): He continues to work with diet and exercise Assessment & Plan (08/11/2018 10:35 AM FISHER [employer] SEINE): He continues to work with calorie restriction and ambulation Assessment & Plan (01/27/2018 11:21 AM CDT): He works with diet, exercise limited as he walks with a cane Assessment & Plan (07/21/2017 12:31 PM FISHER [employer] SEINE): He continues to work with diet Assessment & Plan (02/10/2017 1:56 PM CDT): Need for wt loss discussed. Recs: 1) continue diet and lifestyle modifications. Metastatic neoplasm 07/18/2016 Benign paroxysmal positional vertigo 09/20/2015 Pulmonary embolism 08/09/2015 Paroxysmal atrial fibrillation 08/09/2015 Assessment & Plan (07/27/2023 2:57 PM FISHER [employer] SEINE): - Continue home flecainide - Continue home metoprolol - suppressed on warfarin, flecainide; follows with cardiology outpatient - last TTE in 2018 w/ LVEF 55% and no obvious structural issues Assessment & Plan (08/06/2021 12:26 PM FISHER PURSE SEINE): He has had no recurrences since last year; echo normal, So I made no changes He is protected with Warfarin, on tambocor and metoprolol which I would continue Assessment & Plan (08/15/2020 12:39 PM FISHER PURSE SEINE): He has had recurrent episodes of atrial [...] 07/12/2015 Assessment & Plan (07/28/2023 11:47 AM FISHER PURSE SEINE): - 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 - has been on chronic suppressive doxycycline since then per ID - doxycycline reordered Arthritis 12/17/2009 Hypertension 12/17/2009 Assessment & Plan (08/06/2021 12:26 PM FISHER PURSE SEINE): His BP remains at goal on the BB, so will continue Assessment & Plan (08/15/2020 12:34 PM FISHER PUR[employer] SEINE): His blood pressure is at goal Assessment & Plan (08/17/2019 12:00 PM FISHER PURSE SEINE): His BP remains at goal Assessment & Plan (02/08/2019 1:05 PM CDT): His BP remains at goal Assessment & Plan (08/11/2018 10:26 AM FISHER PUR[employer] SEINE): His BP is at goal Immunizations Immunization [...] on file Legal Sex Male 3:18 AM FISH[employer] SEINE Gender Identity Not on file Sexual Orientation Not on file Obstetrics History Last Filed Vital Signs Vital Sign Reading Time Taken Comments Blood Pressure 108/70 10/07/2024 2:53 PM [facility] SEINE Pulse 62 10/07/2024 2:53 PM [facility] [employer] SEINE Temperature 36.3 C (97.3 F) 09/07/2024 7:18 AM [facility] [employer] SEINE Respiratory Rate 18 09/07/2024 8:20 AM [facility] [employer] SEINE Oxygen Saturation 94% 10/07/2024 2:53 PM FISHER [employer] SEINE Inhaled Oxygen Concentration - - Weight 155.6 kg (343 lb) 10/07/2024 2:53 PM FISH[facility] [employer] SEINE Height 188 cm (6' 2) 10/07/2024 2:53 PM FISH[facility] [employer] SEINE Body Mass Index 44.04 10/07/2024 2:53 PM FISHER PUR[employer] SEINE Plan of Treatment Health Maintenance Due Date [...] Diagnosis Comments EGFR STAT 07/27/2023 8:57 AM FISHER [facility] SEINE LIPID PANEL Routine 11/13/2020 8:46 AM CDT HEMOGLOBIN A1C STAT 03/11/2019 12:48 PM CDT from Last 3 Months or Most Recently Relevant to Health Maintenance Results * eGFR (07/27/2023 8:57 AM FISHER PURSE SEINE) eGFR 60 >=60 mL/min/1. 73 m2 [facility] Comment: Interpretive Data Reference Interval Normal >/= [...] last reviewed 2021. Blood 07/27/2023 8:57 AM FISHER PURSE SEINE 07/27/2023 9:13 AM FISHER [employer] SEINE us Carlota Blum MD LAB BLOOD ORDERABLES F inal Result [facility] Department of Laboratories [place], [place] [id number] * Lipid panel (11/13/2020 8:46 AM CDT) [...] LDL-C. Norberto BEDOLLA et al. TEGAN. 2013;310(19): 8454-2693 (http://education.EngagementHealth/faq/OJH119) Chol/HDL ratio 3.1 <5.0 (calc) [facility] [...] LAB BLOOD ORDERABLES Final Result [facility] [address] [place] [address] * (ABNORMAL) Hemoglobin A1c (03/11/2019 12:48 PM CDT) Hgb A1C 7.5(H) 4.0 - 5.6 % [facility] Estimated Average Glucose 169 mg/dL [facility] Comment: The ADA recommends reporting an estimated Average Glucose (eAG) with all Hemoglobin A1c results using the equation derived from a study of 507 normal and diabetic adults. Minority populations were underrepresented and children were not included. (Diabetes Care 31:8938-5180, 2008). The eAG is not equivalent to a fasting glucose. Blood specimen (specimen) 03/11/2019 12:48 PM CDT 03/11/2019 12:59 PM CDT us Alvaro Ortez DO LAB BLOOD ORDERABLES Fi nal Result AMY [facility] Department [place] [address] from Last 3 Months or Most Recently Relevant to Health Maintenance Insurance [facility] MEDICARE ADVANTAGE [facility] MEDICARE MEDICARE [facility] MEDICARE ADVANTAGE Advance Directives For more information, please contact: [phone] * Full Code (Latest Code Status on File) Date Activated Date Inactivated Comments 09/07/2024 7:02 AM 09/07/2024 1:03 PM * Full Code Date Activated Date Inactivated Comments 01/22/2024 12:34 PM 01/22/2024 7:05 PM * Full Code Date Activated Date Inactivated Comments 07/27/2023 11:35 AM 07/29/2023 6:04 PM * Full Code Date Activated Date Inactivated Comments 03/11/2019 9:03 PM 03/16/2019 8:04 PM Care Teams Director Of Content Marketing Relationship Specialty Start Date End Date Liset Haynes MD PCP - General Family Medicine 08/05/22
--- OUTSIDE RECORDS SUMMARY | 2025-02-02 13:28 | XMS_ITS ---
Author Organization [facility] Address [address] [place] [address] Care Team Providers Care Desk Editor Name Role Phone Liset Haynes MD Primary Care Provider [phone] Active Problems Problem Noted Date Diagnosed Date Dysphagia 09/17/2023 Encounter for medication review 07/28/2023 Assessment & Plan (07/28/2023 1:21 PM MASTER AT ARMS): 07/28 medications reviewed and updated through [facility] (subarachnoid hemorrhage) 07/27/2023 Assessment & Plan (07/29/2023 7:30 AM MASTER AT ARMS): - Neurosurgery consulted - Repeat head CT [...] 07/27/2023 Assessment & Plan (07/27/2023 2:21 PM MASTER AT ARMS): - PRS consulted - s/p repair with 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 - Bacitracin TID x 3 days, then vaseline - HOB elevation - Pending recovery or discharge, please call [phone] or [phone] to schedule follow-up within 1-2 weeks to be seen by an BURT Left knee pain 07/27/2023 Assessment & Plan (07/28/2023 12:59 PM MASTER AT ARMS): - XR left knee: negative for acute fracture Polycythemia 07/27/2023 Assessment & Plan (07/28/2023 12:59 PM MASTER AT ARMS): #coagulopathy - last PE in per chart [...] 07/27/2023 Assessment & Plan (07/27/2023 2:50 PM MASTER AT ARMS): - continue home levothyroxine Elevated red blood cell count 07/21/2023 Closed fracture of left distal fibula 03/11/2019 Overview (03/11/2019): Added automatically from request for surgery [id number] Acute pain due to trauma 03/11/2019 Type 2 diabetes mellitus, wi th long-term current use of insulin 03/11/2019 Assessment & Plan (07/28/2023 1:07 PM MASTER AT ARMS): #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, [...] 02/08/2019 Assessment & Plan (08/06/2021 12:23 PM MASTER AT ARMS): Cholesterol <200 mg/dL 142 137 R, CM 116 Low R 118 R, CM HDL > OR = 40 mg/dL 46 41 R, CM 34 Low R 27 Low R, CM Triglycerides <150 mg/dL 84 83 R, CM 80 R 117 R, CM LDL mg/dL (calc) 80 He remains at goal on lipitor 40 mg so will continue Assessment & Plan (08/15/2020 12:58 PM MASTER AT ARMS): He is on lipitor 20 mg= TC 151/HDL 41/ TG 105/ LDL 89 He has been averaging in the 80 range the past 3 years so am going to the 40 mg dosing to get it down below 70 as he has no sx on the 20 Assessment & Plan (08/17/2019 12:02 PM MASTER AT ARMS): TC 137/LDL 79 on lipitor 20 mg and at goal Assessment & Plan (02/08/2019 1:08 PM CDT): His LDL is at goal Presence of IVC filter 09/28/2018 Bruising 03/19/2017 Chronic anemia 03/19/2017 Edema 03/19/2017 Pulmonary embolism without acute cor pulmonale 0 02/10/2017 Assessment & Plan (07/28/2023 11:41 AM MASTER AT ARMS): - Hold warfarin - s/p IVC filter Assessment & Plan (07/21/2017 12:18 PM MASTER AT ARMS): Unfortunately, he needs anticoagulation. A recent venous [...] 01/20/2017 Assessment & Plan (08/17/2019 12:05 PM MASTER AT ARMS): 1. 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 Global left ventricular [...] 01/20/2017 Assessment & Plan (07/27/2023 2:41 PM MASTER AT ARMS): See Pulmonary Embolism Assessment & Plan (01/20/2017 [...] elective Lexiscan nuclear stress test over at [facility] which is convenient. If this is negative and since pulmonary is no from there mechanism. It may be worthwhile to consider some type of an alternate exercise program such as swimming, i.e. water aerobic Pure hypercholesterolemia 01/20/2017 Assessment & Plan (07/27/2023 2:42 PM MASTER AT ARMS): - Continue home Lipitor Assessment & Plan (02/08/2019 1:06 PM CDT): SCRIBED Cholesterol, Total l - h 151 SCRIBED HDL l - h 45 SCRIBED LDL l - h 87 SCRIBED Triglycerides l - h 95 His LDL is at goal on lipitor 20 mg a day Assessment & Plan (08/11/2018 10:31 AM MASTER AT ARMS): Lipid profile today=TC 170/ HDL 55/ TG [...] lipitor Assessment & Plan (07/21/2017 12:22 PM MASTER AT ARMS): Todays lipid profile= TC 151/ HDL 45/ [...] 01/02 Assessment & Plan (07/27/2023 2:47 PM MASTER AT ARMS): - BMI 44.94 kg/m2 on admission Assessment & Plan (02/08/2019 2:11 PM CDT): He continues to work with diet and exercise Assessment & Plan (08/11/2018 10:35 AM MASTER AT ARMS): He continues to work with calorie restriction and ambulation Assessment & Plan (01/27/2018 11:21 AM CDT): He works with diet, exercise limited as he walks with a cane Assessment & Plan (07/21/2017 12:31 PM MASTER AT ARMS): He continues to work with diet Assessment & Plan (02/10/2017 1:56 PM CDT): Need for wt loss discussed. Recs: 1) continue diet and lifestyle modifications. Metastatic neoplasm 07/18/2016 Benign paroxysmal positional vertigo 09/20/2015 Pulmonary embolism 08/09/2015 Paroxysmal atrial fibrillation 08/09/2015 Assessment & Plan (07/27/2023 2:57 PM MASTER AT ARMS): - Continue home flecainide - Continue home metoprolol - suppressed on warfarin, flecainide; follows with cardiology outpatient - last TTE in 2019 w/ LVEF 55% and no obvious structural issues Assessment & Plan (08/06/2021 12:26 PM MASTER AT ARMS): He has had no recurrences since last year; echo normal, So I made no changes He is protected with Warfarin, on tambocor and metoprolol which I would continue Assessment & Plan (08/15/2020 12:39 PM MASTER AT ARMS): He has had recurrent episodes of atrial [...] 07/12/2015 Assessment & Plan (07/28/2023 11:47 AM MASTER AT ARMS): - 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 - has been on chronic suppressive doxycycline since then per ID - doxycycline reordered Arthritis 12/17/2009 Hypertension 12/17/2009 Assessment & Plan (08/06/2021 12:26 PM MASTER AT ARMS): His BP remains at goal on the BB, so will continue Assessment & Plan (08/15/2020 12:34 PM MASTER AT ARMS): His blood pressure is at goal Assessment & Plan (08/17/2019 12:00 PM MASTER AT ARMS): His BP remains at goal Assessment & Plan (02/08/2019 1:05 PM CDT): His BP remains at goal Assessment & Plan (08/11/2018 10:26 AM MASTER AT ARMS): His BP is at goal Current Treatment and Therapy Plans No current plan information found. Past Treatment and Therapy Plans No past plan information found. Lifetime Dose Tracking * Chemical Lifetime Dose Automatic Entry Manual Entr y DLP 1,419 mGycm 1,419 mGycm 0 mGycm
--- OUTSIDE RECORDS SUMMARY | 2025-02-02 13:28 | XMS_ITS | Referral Summary ---
Author Organization [facility] Address [address] [place] [address] Care Team Providers Care Naval Science Teacher Name Role Phone Liset Haynes MD Primary Care Provider [phone] Allergies Active Allergy Reactions Criticality Noted Date [...] 07/28/2023 Assessment & Plan (07/28/2023 1:21 PM SIDE DOOR MAN): 07/28 medications reviewed and updated through contact with [facility] SAH (subarachnoid hemorrhage) 07/27/2023 Assessment & Plan (07/29/2023 7:30 AM SIDE DOOR MAN): - Neurosurgery consulted - Repeat head CT [...] 07/27/2023 Assessment & Plan (07/27/2023 2:21 PM SIDE DOOR MAN): - PRS consulted - s/p repair with 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 - Bacitracin TID x 3 days, then vaseline - HOB elevation - Pending recovery or discharge, please call [phone] or [phone] to schedule follow-up within 1-2 weeks to be seen by an BURT Left knee pain 07/27/2023 Assessment & Plan (07/28/2023 12:59 PM SIDE DOOR MAN): - XR left knee: negative for acute fracture Polycythemia 07/27/2023 Assessment & Plan (07/28/2023 12:59 PM SIDE DOOR MAN): #coagulopathy - last PE in per chart [...] 07/27/2023 Assessment & Plan (07/27/2023 2:50 PM SIDE DOOR MAN): - continue home levothyroxine Elevated red blood cell count 07/21/2023 Closed fracture of left distal fibula 03/11/2019 Overview (03/11/2019): Added automatically from request for surgery [id number] Acute pain due to trauma 03/11/2019 Type 2 diabetes mellitus, wi th long-term current use of insulin 03/11/2019 Assessment & Plan (07/28/2023 1:07 PM SIDE DOOR MAN): #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, [...] 02/08/2019 Assessment & Plan (08/06/2021 12:23 PM SIDE DOOR MAN): Cholesterol <200 mg/dL 142 137 R, CM 116 Low R 118 R, CM HDL > OR = 40 mg/dL 46 41 R, CM 34 Low R 27 Low R, CM Triglycerides <150 mg/dL 84 83 R, CM 80 R 117 R, CM LDL mg/dL (calc) 80 He remains at goal on lipitor 40 mg so will continue Assessment & Plan (08/15/2020 12:58 PM SIDE DOOR MAN): He is on lipitor 20 mg= TC 151/HDL 41/ TG 105/ LDL 89 He has been averaging in the 80 range the past 3 years so am going to the 40 mg dosing to get it down below 70 as he has no sx on the 20 Assessment & Plan (08/17/2019 12:02 PM SIDE DOOR MAN): TC 137/LDL 79 on lipitor 20 mg and at goal Assessment & Plan (02/08/2019 1:08 PM CDT): His LDL is at goal Presence of IVC filter 09/28/2018 Bruising 03/19/2017 Chronic anemia 03/19/2017 Edema 03/19/2017 Pulmonary embolism without acute cor pulmonale 0 02/10/2017 Assessment & Plan (07/28/2023 11:41 AM SIDE DOOR MAN): - Hold warfarin - s/p IVC filter Assessment & Plan (07/21/2017 12:18 PM SIDE DOOR MAN): Unfortunately, he needs anticoagulation. A recent venous [...] 01/20/2017 Assessment & Plan (08/17/2019 12:05 PM SIDE DOOR MAN): 1. 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 Global left ventricular [...] 01/20/2017 Assessment & Plan (07/27/2023 2:41 PM SIDE DOOR MAN): See Pulmonary Embolism Assessment & Plan (01/20/2017 [...] elective Lexiscan nuclear stress test over at [facility] which is convenient. If this is negative and since pulmonary is no from there mechanism. It may be worthwhile to consider some type of an alternate exercise program such as swimming, i.e. water aerobic Pure hypercholesterolemia 01/20/2017 Assessment & Plan (07/27/2023 2:42 PM SIDE DOOR MAN): - Continue home Lipitor Assessment & Plan (02/08/2019 1:06 PM CDT): SCRIBED Cholesterol, Total l - h 151 SCRIBED HDL l - h 45 SCRIBED LDL l - h 87 SCRIBED Triglycerides l - h 95 His LDL is at goal on lipitor 20 mg a day Assessment & Plan (08/11/2018 10:31 AM SIDE DOOR MAN): Lipid profile today=TC 170/ HDL 55/ TG [...] lipitor Assessment & Plan (07/21/2017 12:22 PM SIDE DOOR MAN): Todays lipid profile= TC 151/ HDL 45/ [...] 01/02 Assessment & Plan (07/27/2023 2:47 PM SIDE DOOR MAN): - BMI 44.94 kg/m2 on admission Assessment & Plan (02/08/2019 2:11 PM CDT): He continues to work with diet and exercise Assessment & Plan (08/11/2018 10:35 AM SIDE DOOR MAN): He continues to work with calorie restriction and ambulation Assessment & Plan (01/27/2018 11:21 AM CDT): He works with diet, exercise limited as he walks with a cane Assessment & Plan (07/21/2017 12:31 PM SIDE DOOR MAN): He continues to work with diet Assessment & Plan (02/10/2017 1:56 PM CDT): Need for wt loss discussed. Recs: 1) continue diet and lifestyle modifications. Metastatic neoplasm 07/18/2016 Benign paroxysmal positional vertigo 09/20/2015 Pulmonary embolism 08/09/2015 Paroxysmal atrial fibrillation 08/09/2015 Assessment & Plan (07/27/2023 2:57 PM SIDE DOOR MAN): - Continue home flecainide - Continue home metoprolol - suppressed on warfarin, flecainide; follows with cardiology outpatient - last TTE in 2018 w/ LVEF 55% and no obvious structural issues Assessment & Plan (08/06/2021 12:26 PM SIDE DOOR MAN): He has had no recurrences since last year; echo normal, So I made no changes He is protected with Warfarin, on tambocor and metoprolol which I would continue Assessment & Plan (08/15/2020 12:39 PM SIDE DOOR MAN): He has had recurrent episodes of atrial [...] 07/12/2015 Assessment & Plan (07/28/2023 11:47 AM SIDE DOOR MAN): - 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 then per ID - doxycycline reordered Arthritis 12/17/2009 Hypertension 12/17/2009 Assessment & Plan (08/06/2021 12:26 PM SIDE DOOR MAN): His BP remains at goal on the BB, so will continue Assessment & Plan (08/15/2020 12:34 PM SIDE DOOR MAN): His blood pressure is at goal Assessment & Plan (08/17/2019 12:00 PM SIDE DOOR MAN): His BP remains at goal Assessment & Plan (02/08/2019 1:05 PM CDT): His BP remains at goal Assessment & Plan (08/11/2018 10:26 AM SIDE DOOR MAN): His BP is at goal Immunizations Immunization [...] on file Legal Sex Male 3:18 AM SIDE DOOR MAN Gender Identity Not on file Sexual Orientation Not on file Last Filed Vital Signs Vital Sign Reading Time Taken Comments Blood Pressure 108/70 10/07/2024 2:53 PM SIDE DOOR MAN Pulse 62 10/07/2024 2:53 PM SIDE DOOR MAN Temperature 36.3 C (97.3 F) 09/07/2024 7:18 AM SIDE DOOR MAN Respiratory Rate 18 09/07/2024 8:20 AM SIDE DOOR MAN Oxygen Saturation 94% 10/07/2024 2:53 PM SIDE DOOR MAN Inhaled Oxygen Concentration - - Weight 155.6 kg (343 lb) 10/07/2024 2:53 PM SIDE DOOR MAN Height 188 cm (6' 2) 10/07/2024 2:53 PM SIDE DOOR MAN Body Mass Index 44.04 10/07/2024 2:53 PM SIDE DOOR MAN Plan of Treatment Not on file Procedures Procedure Name Priority Date/Time Associated Diagnosis Comments EGFR STAT 07/27/2023 8:57 AM SIDE DOOR MAN LIPID PANEL Routine 11/13/2020 8:46 AM CDT HEMOGLOBIN A1C STAT 03/11/2019 12:48 PM CDT from Last 3 Months or Most Recently Relevant to Health Maintenance Results * eGFR (07/27/2023 8:57 AM SIDE DOOR MAN) eGFR 60 >=60 mL/min/1. 73 m2 AMY [...] last reviewed 2021. Blood 07/27/2023 8:57 AM SIDE DOOR MAN 07/27/2023 9:13 AM SIDE DOOR MAN us Carlota Blum MD LAB BLOOD ORDERABLES F inal Result [facility] Department [place] [address] * Lipid panel (11/13/2020 8:46 AM CDT) [...] LDL-C. Norberto BEDOLLA et al. TEGAN. 2013;310(19): 7928-6782 (http://education.[employer]/faq/TXO141) Chol/HDL ratio 3.1 <5.0 (calc) [facility] Non-HDL, (LDL+VLDL) 96 <130 mg/dL (calc) [facility] Comment: For patients with diabetes plus 1 major ASCVD risk factor, treating to a non-HDL-C goal of <100 mg/dL (LDL-C of <70 mg/dL) is considered a therapeutic option. 11/13/2020 8:46 AM CDT 11/13/2020 8:47 AM CDT [facility] - 11/14/2020 2:24 AM CDT FASTING:YES FASTING: YES us Norberto Cordero DO LAB BLOOD ORDERABLES Final Result [facility] [address] [address] * (ABNORMAL) Hemoglobin A1c (03/11/2019 12:48 PM CDT) Hgb A1C 7.5(H) 4.0 - 5.6 % [facility] Estimated Average Glucose 169 mg/dL [facility] Comment: The ADA recommends reporting an estimated Average Glucose (eAG) with all Hemoglobin A1c results using the equation derived from a study of 507 normal and diabetic adults. Minority populations were underrepresented and children were not included. (Diabetes Care 31:0580-2332, 2008). The eAG is not equivalent to a fasting glucose. Blood specimen (specimen) 03/11/2019 12:48 PM CDT 03/11/2019 12:59 PM CDT Alvaro Ortez DO LAB BLOOD ORDERABLES nal Result [facility] [place] [address] from Last 3 Months or Most Recently Relevant to Health Maintenance Insurance [facility] MEDICARE ADVANTAGE [facility]IC[facility] MEDICARE [facility] MEDICARE [facility] MEDICARE ADVANTAGE [facility] MEDICARE ADVANTAGE Advance Directives For more information, please contact: [phone] * Full Code (Latest Code Status on File) Date Activated Date Inactivated Comments 09/07/2024 7:02 AM 09/07/2024 1:03 PM * Full Code Date Activated Date Inactivated Comments 01/22/2024 12:34 PM 01/22/2024 7:05 PM * Full Code Date Activated Date Inactivated Comments 07/27/2023 11:35 AM 07/29/2023 6:04 PM * Full Code Date Activated Date Inactivated Comments 03/11/2019 9:03 PM 03/16/2019 8:04 PM Care Teams Naval Science Teacher Relationship Specialty Start Date End Date Liset Haynes MD PCP - General Family Medicine 08/05/22
--- OUTSIDE RECORDS SUMMARY | 2025-02-02 13:28 | XMS_ITS | Continuity of Care Document ---
Author Organization [facility] Address [address] [place] [address] Phone Care Team Providers Care Manager Plant Name Role Phone Julisa Mcintyre Unavailable Unavailable [...] Diagnoses Date Provider Providers Copied on Encounter [facility], [address], [place], [place], [id number], [place] tel:[phone] [facility] No Information 0 Miguelina Egan. [address], [place], [address], [place]. tel:[phone] [facility], [address], [place], [place], [address], [place] tel:[phone] [facility] No Information 0 Miguelina Rodriguezn. [address], [place], [place], [facility] [place], [place]. tel:[phone] [facility], [address], [place], [place], [address], [place] tel:[phone] [facility] No Information 0 Miguelina Julisa. [address], [place], [facility] [place], [place]. tel:[phone] Office/outpati ent Visit, [facility], [address] [place] [address] [address], [place], [place], [address], tel:[phone] [facility] No Information 0 Miguelina Rodriguezn. [address], [place], [facility] [place], [place]. tel:[phone] Office/outpati ent Visit, [facility], [address], [place], [place], [address], [place] tel:[phone] [facility] No Information Dec-2 9-200 9 Miguelina Julisa. [address] , [address], [place], [facility] [place], [place]. tel:[phone] [facility], [address], [place], [place], [address], [place] tel:[phone] [facility] No Information Oct-2 7-200 9 Miguelina Julisa. [address], [place], [facility] [place], [place]. tel:[phone] [facility], [address], [place], [place], [address], [place] tel:[phone] [facility] No Information Oct-0 6-200 9 Mcintyre Julisa. [address], [place], [facility] [place], [place]. tel:[phone] [facility], [address], [place], [place], [address], [place] tel:[phone] [facility] [address] No Information Sep-2 4-200 9 Mcintyre Julisa. [address], [place], [facility] [place], [place]. tel:[phone] [facility], [address], [place], [place], [address], [place] tel:[phone] [facility] No Information Sep-2 3-200 9 Mcintyre Julisa. [address], [place], [facility] [place], [place]. tel:[phone] [facility], [address] [place] [address] [address], [place], [place], [address], [place] tel:[phone] [facility] No Information Sep-1 5-200 9 Miguelina Rodriguezn. [address], [place], [facility] [place], [place]. tel:[phone] [facility], [address], [place], [place], [address], [place] tel:[phone] [facility] [address] No Information Sep-1 0-200 9 Miguelina Julisa. [address], [place], [facility] [place], [place]. tel:[phone] [facility], [address], [place], [place], [address], [place] tel:[phone] [facility] No Information Sep-0 9-200 9 Miguelina Julisa. [address], [place], [facility] [place], [place]. tel:[phone] Office Consultation [facility], [address], [place], [place], [address], [place] tel:[phone] [facility] No Information 9 Miguelina Egan. [address], [place], [address], [place]. tel:[phone] Family History Family Member Type Diagnosis Age [...]
--- OUTSIDE RECORDS SUMMARY | 2025-02-02 13:28 | XMS_ITS | Clinical Summary ---
Author Organization [facility] Address [address] [place] [address] Care Team Providers Care Carbon Electrodes Supervisor Name Role Phone Unavailable Primary Care Provider Unavailabl e Social History Tobacco Use Types Packs/Day Years Used Date Smoking Tobacco: Never Assessed Sex and Gender Information Value Date Recorded Sex Assigned at Not on file Legal Sex Male 5:58 PM LEGAL ENTITY CONTROLLER Gender Identity Not on file Sexual Orientation [...]
--- OUTSIDE RECORDS SUMMARY | 2025-02-02 13:29 | XMS_ITS | Clinical Summary ---
Author Organization [facility] Address [address] [place] [address] Care Team Providers Care Barrel Polisher Inside Name Role Phone Liset Haynes MD Primary Care Provider [phone] Allergies No known active allergies Medications amiodarone [...] daily. Active flecainide (TAMBOCOR) 50 mg Tablet Active warfarin (COUMADIN) 5 mg tablet 8 [...] Encounters Date Type Department Care Team Description 01/18/2025 External Device Data ST[facility] ABSTRACTION Provider, Abstract 01/11/2025 Orders Only [facility] Oncology and Hematology [facility] [address] [place] [address] Kendall Wills MD 01/10/2025 11:45 AM CDT Office Visit [facility] Oncology and Hematology [place] [address] [place] [address] Kendall Wills MD Polycythemia, secondary (Primary Dx) 12/27/2024 External Device Data STL ABSTRACTION Provider, Abstract 12/27/2024 External Device Data [facility] ABSTRACTION Provider, Abstract 12/22/2024 External Device Data [facility] ABSTRACTION Provider, Abstract 12/21/2024 External Device Data [facility] ABSTRACTION Provider, Abstract [...] Sign Reading Time Taken Comments Blood Pressure 161/74 01/10/2025 11:30 AM CDT Pulse 58 01/10/2025 11:27 AM CDT Temperature 36.4 C (97.5 F) 01/10/2025 11:27 AM CDT Respiratory Rate 16 01/10/2025 11:2 7 AM CDT Oxygen Saturation 93% 01/10/2025 11: 27 AM CDT Inhaled Oxygen Concentration - - Weight 155.6 kg (343 lb) 07/12/2024 1:0 3 PM SHIPFITTER HELPER Patient is unable to step on scale,patient gave me a verbal current weight from recent. Height 188 cm (6' 2) 06/08/2018 8:37 AM SHIPFITTER HELPER Body Mass Index 44.04 06/08/2018 8:37 AM SHIPFITTER HELPER Plan of Treatment Upcoming Encounters Date Type Department Care Team (Late st Contact Info) Description 07/13/2025 1:00 PM SHIPFITTER HELPER Office Visit [facility] Oncology and Hematology - [place] [address] [facility] [address] [place] [address] Kendall Wills MD [address] [facility] [address] [place] [address] Health Maintenance Due Date Last Done Comments DIABETES ANNUAL FOOT EXAM 1960 DIABETES ANNUAL RETINAL EXAM 1960 DIABETES MICROALBUMIN ANNUAL SCREEN 1960 LDL CHOLESTEROL ANNUAL 1960 RSV VACCINE (60+ or ) (1 - 1-dose 75+ series) 2017 DIABETES HBA1C Q 6 MONTHS 09/11/2019 03/11/2019 COVID-19 Vaccine ( season) 2024, 09/13/2020 INFLUENZA VACCINE (#1) 2025 9, 06/07/2018, 05/11/2017 DTAP/TDAP/TD VACCINES (3 - T d or Tdap) 07/27/2033 07/27/2023, 05/10/2013, 01/24/2004 PNEUMOCOCCAL VACCINE 50+ YEARS Completed 0 08/03/2017, 07/31/2016, 05/10/2013 ZOSTER VACCINE Completed 08/22/2019, 06/09/2019 Procedures Procedure Name Priority Date/Time Associated Diagnosis Comments BASIC METABOLIC PANEL Routine 01/10/2025 10:37 AM CDT CBC WITH AUTODIFFERENTIAL Routine 2024 10:28 AM CDT from Last 3 Months Results * BASIC METABOLIC PANEL (01/10/2025 10:37 AM CDT) Blood Kendall Wills MD CHEMISTRY ORDERABLES Final Resu lt * CBC WITH AUTODIFFERENTIAL (01/10/2025 10:28 AM CDT) Blood Kendall Wills MD HEMATOLOGY ORDERABLES Final Res ult from Last 3 Months Insurance [facility] Care Teams Barrel Polisher Inside Relationship Specialty Start Date End Date Liset Haynes MD [address] [place] [address] PCP - General Family Practice 01/06/23
--- OUTSIDE RECORDS SUMMARY | 2025-02-02 13:29 | XMS_ITS | Clinical Summary ---
Author Organization [facility] Address [address], [address] [address] Phone Care Team Providers Care Relief Operator Name Role Phone Christopher Diop MD Primary Care Provider [phone] Mayra Casper MD Unavailable [phone] Allergies No known active allergies Medications tamsulosin [...] Tabs by mouth daily. Active Probiotic Product ([employer] HEALTH PO) Take by mouth. Acti ve [...] Job Start Date Job End Date retired-from [email or web address] Not on file Not on file Not [...] 9:00 AM CDT Height 188 cm (6' 2) 11/03/2017 9:00 AM CDT Body Mass Index 44.94 11/03/2017 9:00 AM CDT Plan of Treatment Health Maintenance Due Date Last Done Comments Hepatitis C Virus (HCV) Screening 1940 Respiratory Syncytial Virus (RSV) Immunization (Adult) (1 - 1-dose 75+ series) 2017 Zoster Immunization (2 of 2) 10/17/2019 08/22/2019 SARS-COV-2 Immunization ( season) 2024 06/04/2021, 10/16/2020, 09/13/2020 Influenza Immunization (#1) 04/03/202509/2019, 06/07/2018, 05/11/2017 DTaP/Tdap/Td Immunization Discontinued 2012, 01/24/2004 TdaP Immunization Completed 05/10/2013 Pneumococcal Immunization (5 0+ years) Completed 08/03/2017, 07/31/2016, 05/10/2013 Pneumococcal Immunization Combined Discontinued 08/03/2017, 07/31/2016, 05/10/2013 Hepatitis B Immunization Aged Out No longer eligible based on patient's age to complete this topic Human Papillomavirus (HPV) Immunization Aged Out No longer eligible based on patient's age to complete this topic Meningococcal Immunization (ACWY) Aged Out No longer eligible based on patient's age to complete this topic Rotavirus Immunization Aged Out No lo nger eligible based on patient's age to complete this topic Care Teams Relief Operator Relationship Specialty Start Date End Date Christopher Diop MD [address] [place] [address] PCP - General Family Medicine 03/11/17 Mayra Casper MD [address] [place] [address] Consulting Physician Gastroenterology 07/30/17
--- OUTSIDE RECORDS SUMMARY | 2025-02-02 13:29 | XMS_ITS | Encounter Summary ---
Author Organization [facility] Address [address] [place] [address] Phone Care Team Providers Care Portfolio Director Name Role Phone Myron Diop MD Primary Care Provider [phone] Mayra Casper MD Unavailable [phone] Reason for Visit * Reason Comments Medication Refill Encounter Details Date Type Department Care Team (Late st Contact Info) Description 07/11/2020 Refill [facility] - Gastroenterology [facility] [address] [place] [address] Rosa Isela Boo Luz, PAC [address] [place] [address] Medication Refill Social History Tobacco Use Types [...] Job Start Date Job End Date retired-from [employer] Not on file Not on file Not on file documented as of this encounter Miscellaneous Notes * Telephone Encounter - Kelly Hodge CMA - 07/11/2020 1:17 PM UPHOLSTERER INSIDE Patients was notified on 03/29/2020 that refills after that were to go to primary care provider. verbalized understanding LSTERER INSIDE documented in this encounter Plan of Treatment Not on file documented as of this encounter Visit Diagnoses Not on filedocumented in this encounter Care Teams Portfolio Director Relationship Specialty Start Date End Date Myron Diop MD [address] [place] [address] PCP - General Family Medicine 03/11/17 Mayra Casper MD [address] [place] [address] Consulting Physician Gastroenterology 07/30/17 documented as of this encounter
[2025-02-02] MEDS: SODIUM CHLORIDE 0.9% IV 1,000 ML 999 ML IV CONT (13:41)
[2025-02-02 13:47] LABS: Hematocrit 49.4 % (42.0-52.0); Hemoglobin 16.1 g/dL (14.0-18.0); Immature Granulocyte Percent A 1.6 % (0-0.5); Lymphocytes Absolute Auto 1.15 K/mm3 (0.9-3.2); Mean Corpuscular HGB Conc 32.6 g/dl (32-36); Mean Corpuscular Hemoglobin 27.4 pg (26-34); Mean Corpuscular Volume 84.2 fl (80-100); Nucleated Red Blood Cells Absolute Auto 0.000 K/mm3 (0.0-0.012); Nucleated Red Blood Cells Perc 0.0 % (0.0-0.2); Platelet Count Result 245 k/mm3 (150-375); Red Blood Count 5.87 M/mm3 (4.6-6.20); White Blood Count 7.7 K/mm3 (4.5-10.0)
[2025-02-02 13:54] LABS: Alveolar/Arterial O2 Gradient 37.9 mmHg; Fractional Inspired Oxygen 21 %; HCO3 ABG 24.6 mEq/l (22.0-26.0); Oxygen Content ABG 20.5 %vol (16.0-22.0); Oxygen Saturation ABG 92.7 % (95.0-100.0); PCO2 ABG 39.8 mmHg (35.0-45.0); PO2 ABG 64.2 mmHg (80.0-100.0); PO2 FiO2 Ratio Arterial Blood 3.06 %
[2025-02-02 13:55] LABS: Modified Allen's Test Pass; Site Drawn RIGHT RADIAL
[2025-02-02 13:58] LABS: Alanine Aminotransferase 23 U/L (6-50); Albumin Level 3.3 g/dL (3.5-5.1); Alkaline Phosphatase 102 U/L (38-126); Anion Gap 4 mmol/L (4-12); Aspartate Amino Transferase 26 U/L (17-59); Bilirubin,Total 0.7 mg/dL (0.2-1.3); Blood Urea Nitrogen 17 mg/dL (9-20); Calcium 8.8 mg/dL (8.4-10.2); Carbon Dioxide 27 mmol/L (22-30); Chloride 107 mmol/L (98-107); Estimated CRCL calculation 63 ml/min; Estimated Glomerular Filt Rate 55; Glucose 118 mg/dL (65-110); Magnesium 2.2 mg/dL (1.6-2.3); Potassium 4.3 mmol/L (3.4-5.0); Sodium 138 mmol/L (137-145); Total Protein 6.7 g/dL (6.3-8.2)
[2025-02-02 14:10] LABS: NT Pro B Type Natriuretic Pept 96 pg/mL (19.9-100); Troponin I < 0.012 ng/mL (0.000-0.034)
[2025-02-02 14:14] LABS: Procalcitonin 0.1 ng/mL
[2025-02-02 14:25] LABS: Influenza A QL RT-PCR Negative (Negative); Influenza B QL RT-PCR Negative (Negative); RSV RNA, RT-PCR Negative (Negative); SARS-CoV-2 RNA PCR Negative (Negative)
[2025-02-02 15:32] LABS: INR 2.8; Prothrombin Time 28.6 Seconds (11.1-14.7)
[2025-02-02 15:33] LABS: Partial Thromboplastin Time 34.7 Seconds (22.3-36.8)
[2025-02-02 15:36] LABS: Add Urine Microscopic? YES; Appearance Urine Clear (Clear); Glucose Urine UA 3+ mg/dL (Negative); Leukocyte Esterase Ur 1+ LEU/UL (Negative); Need Manual Microscopic Reviewed; Nitrate Urine Negative (Negative); Specific Grav Ur > 1.045 (1.001-1.035)
--- NOTE | 2025-02-02 15:49 | ED_ITS ---
HPI - General Adult General Chief complaint: Fall Stated complaint: fall Time Seen by Provider: 02/02/25 13:10 History of Present Illness HPI narrative: Patient 84-year-old gentleman who presents emergency department with chief complaint of fall and generalized weakness the patient states that today he noticed that his feeling weaker than normal reports that he was walking with his walker lost his footing and fell landing on his left side patient states he has pain is on the left side patient reports no loss of consciousness Related Data Home Medications ?Medication ?Instructions ?Recorded ?Confirmed ?Last Taken ?Type flecainide 50 mg tablet 50 mg PO Q12H 06/21/19 01/26/25 Unknown History docusate sodium 50 mg capsule 50 mg PO BID 06/14/20 01/26/25 Unknown History loratadine 10 mg capsule 10 mg PO DAILY 06/14/20 01/26/25 10/12/23 09:15 History lactobacillus combination no.9 4 4,000 mmu cells PO DAILY 11/07/21 01/26/25 Unknown History billion cell capsule (Adult 50 Plus Probiotic) acetaminophen 650 mg 650 mg PO Q12H PRN pain 1-4 10/12/23 01/26/25 Unknown History tablet,extended release (Tylenol Arthritis Pain) alpha lipoic acid 200 mg capsule 200 mg PO DAILY 04/13/24 01/26/25 Unknown History cholecalciferol (vitamin D3) 50 50 mcg PO DAILY 04/13/24 01/26/25 Unknown History mcg (2,000 unit) capsule Allergies Allergy/AdvReac Type Severity Reaction Status Date / Time No Known Drug Allergies Allergy Unknown Unknown Verified 02/02/25 13:05 Review of Systems 2 Review of Systems: A 10 system review of systems was completed on the patient and is negative except for what is stated in the HPI. Nursing and ancillary documentation was reviewed. [facility] Past Medical History Medical History Trochanteric bursitis, right hip Arthritis of elbow, left, degenerative Arthritis of right shoulder region Right shoulder strain Right arm pain Olecranon bursitis of right elbow Atrial fibrillation Rupture of left Achilles tendon Left ankle pain Constipation High cholesterol SOB (shortness of breath) Vision changes COPD (chronic obstructive pulmonary disease) Osteomyelitis, chronic BPH (benign prostatic hyperplasia) History of hemorrhoids History of pulmonary embolism History of deep vein thrombosis (DVT) of lower extremity Acute exacerbation of chronic obstructive airways disease Pneumonia due to COVID-19 virus Hypothyroidism determined by thyroid function test Weakness of both lower extremities Diabetes mellitus with neuropathy Ankle syndesmosis disruption Ankle fracture, bimalleolar, closed Infection of spine Chronic antibiotic suppression Chronic anticoagulation Recurrent deep vein thrombosis (DVT) Hypertension Spleen absent Rotator cuff arthropathy of right shoulder Surgical History Surgical History Total knee replacement status H/O bilateral cataract extraction H/O splenectomy S/P rotator cuff repair H/O colonoscopy with polypectomy History of pancreatic surgery Removal of pancreatic mass ([facility]) History of embolic filter insertion Hx of hernia repair History of back surgery x2 ([facility]), x1 ([facility]) H/O total knee replacement Bilaterally Family History Family History Grandparent Diabetes mellitus Father Family history of cardiovascular disease Intracranial aneurysm Mother Dvt femoral (deep venous thrombosis) Sibling Throat cancer Sister Acute myocardial infarction Brother Social History Social History Social History: The patient is and remarried; he lives with his . Patient was smoking up to 3 packs of cigarettes a day. He is retired from [employer]. He drinks occasionally denies any illicit drugs. He is listed as a DNR. He nominates His to be the individual who would make medical decisions for him if he is unable. Smoking packs per day: 1 Smoking cigarettes per day: 20.0 Years smoked: 12 Smoking pack-years: 12.00 Smoking status: Former smoker Tobacco type: cigarettes Second hand tobacco smoke exposure: No Smoking end date: 04/13/80 Alcohol intake: former Drinks per week: 1 Substance use: never Substance use type: does not use Do You Feel Safe in your Home?: Yes Lack of Transportation: No Lack of Food: Never True Current Housing: I Have Housing Concerned About Future Housing: No Difficulty Paying Gas/Electric Bills: No Difficulty Paying for Meds: No Currently Unemployed: No Education: Don't Know Difficulty w/ Childcare or Family Care: No Living arrangements: with family Occupation/Education: retired Gender identity (if verbalized by the patient): Male Additional gender identity comments: Lives with Sexual Orientation (if Verbalized by the Patient): Straight or Heterosexual Spiritual care concerns: No Agree to blood products: Yes Exam 2 Narrative: GENERAL: Well-appearing, well-nourished, and in no acute distress. HEAD: Normocephalic, atraumatic. EYES: PERRLA and EOMI. ENT: Nares clear, no rhinorrhea or epistaxis. Mucous membranes moist. NECK: Supple. CHEST: Clear to auscultation. No respiratory distress. Tenderness to palpation of the left-sided chest HEART: Regular rate and rhythm. No murmur heard. Normal peripheral pulses. ABDOMEN: Soft, nontender, nondistended, normal active bowel sounds. EXTREMITIES: Normal range of motion. No edema. SKIN: Warm, dry, no rash. NEURO: No focal deficits. Alert and oriented x3. PSYCH: Normal mood and affect. Course Vital Signs Vital signs: Vital Signs Temperature 36.8 C 02/02/25 13:02 Pulse Rate 71 02/02/25 13:02 Respiratory Rate 16 02/02/25 13:02 Blood Pressure 137/77 02/02/25 13:02 Pulse Oximetry 98 02/02/25 13:02 Temperature 36.8 C 02/02/25 13:02 Pulse Rate 71 02/02/25 13:02 Respiratory Rate 16 02/02/25 13:02 Blood Pressure 137/77 02/02/25 13:02 Pulse Oximetry 92 02/02/25 13:55 Oxygen Delivery Nasal Cannula 02/02/25 13:55 Oxygen Flow Rate 2 02/02/25 13:55 Medical Decision Making [facility] Narrative Medical decision making narrative: Differential diagnosis includes rib fracture, pulmonary contusion, pneumonia, UTI, electrolyte abnormality, Laboratory studies were obtained on the patient showed evidence of UTI CT scan of the chest abdomen pelvis showed no intrathoracic or intra-abdominal trauma there was old fractures of rib Vital Signs Vital Signs: Vital Signs Temperature 36.8 C 02/02/25 13:02 Pulse Rate 71 02/02/25 13:02 Respiratory Rate 16 02/02/25 13:02 Blood Pressure 137/77 02/02/25 13:02 Pulse Oximetry 98 02/02/25 13:02 Temperature 36.8 C 02/02/25 13:02 Pulse Rate 71 02/02/25 13:02 Respiratory Rate 16 02/02/25 13:02 Blood Pressure 137/77 02/02/25 13:02 Pulse Oximetry 92 02/02/25 13:55 Oxygen Delivery Nasal Cannula 02/02/25 13:55 Oxygen Flow Rate 2 02/02/25 13:55 Lab Data 02/02/25 13:36 02/02/25 13:36 Labs: Lab Results 02/02/25 02/02/25 02/02/25 Range/Units 13:36 15:15 15:22 WBC 7.7 (4.5-10.0) K/mm3 RBC 5.87 (4.6-6.20) M/mm3 Hgb 16.1 (14.0-18.0) g/dL Hct 49.4 (42.0-52.0) % MCV 84.2 (80-100) fl MCH 27.4 (26-34) pg MCHC 32.6 (32-36) g/dl RDW 19.9 H (11.5-14.5) % Plt Count 245 (150-375) k/mm3 MPV 10.8 H (7.4-10.4) fl Immature Gran % (Auto) 1.6 H (0-0.5) % Neut % (Auto) 67.9 (45.5-73.1) % Lymph % (Auto) 15.0 L (18.3-44.2) % [place] % (Auto) 13.1 H (2.6-8.5) % Eos % (Auto) 1.7 (0-4.4) % Baso % (Auto) 0.7 (0.2-1.2) % Lymph # (Auto) 1.15 (0.9-3.2) K/mm3 [place] # (Auto) 1.0 H (0.1-0.6) K/mm3 Eos # (Auto) 0.1 (0-0.3) K/mm3 Baso # (Auto) 0.1 (0.0-0.1) K/mm3 Abs Immat Gran (auto) 0.12 H (0.00-0.031) K/mm3 Absolute Neuts (auto) 5.2 (1.3-6.7) K/mm3 Absolute Nucleated RBC 0.000 (0.0-0.012) K/mm3 Nucleated RBC % 0.0 (0.0-0.2) % PT 28.6 H (11.1-14.7) Seconds INR 2.8 APTT 34.7 (22.3-36.8) Seconds Sodium 138 (137-145) mmol/L Potassium 4.3 (3.4-5.0) mmol/L Chloride 107 (98-107) mmol/L Carbon Dioxide 27 (22-30) mmol/L Anion Gap 4 (4-12) mmol/L BUN 17 (9-20) mg/dL Creatinine 1.26 (0.7-1.3) mg/dL Estim Creat Clear Calc 63 ml/min Estimated GFR 55 L (59 - ) Glucose 118 H (65-110) mg/dL Lactic Acid 1.5 (0.7-2.0) mmol/L Calcium 8.8 (8.4-10.2) mg/dL Magnesium 2.2 (1.6-2.3) mg/dL Total Bilirubin 0.7 (0.2-1.3) mg/dL AST 26 (17-59) U/L ALT 23 (6-50) U/L Alkaline Phosphatase 102 (38-126) U/L Troponin I < 0.012 (0.000-0.034) ng/mL NT-Pro-B Natriuret Pep 96 (19.9-100) pg/mL Total Protein 6.7 (6.3-8.2) g/dL Albumin 3.3 L (3.5-5.1) g/dL Procalcitonin 0.1 ng/mL Urine Color Dark yellow (Yellow) Urine Appearance Clear (Clear) Urine pH 5.0 (5.0-9.0) Ur Specific [place] > 1.045 H (1.001-1.035) Urine Protein Negative (Negative) mg/dL Urine Glucose (UA) 3+ H (Negative) mg/dL Urine Ketones Trace H (Negative) mg/dL Ur Blood (Man) Negative (Negative) Urine Nitrate Negative (Negative) Urine Bilirubin Negative (Negative) Urine Urobilinogen 1.0 (<2.0) mg/dL Add Ur Microanalysis Reviewed Leukocyte Esterase Rfl 1+ H (Negative) JOSE ROBERTO/UL Urine RBC 6-10 H (0-2) /hpf Urine WBC 51-100 H (0-3) /hpf Ur Squamous Epith Cells None seen (Few) /hpf Urine Bacteria None seen /hpf Urine Casts 3-5 Influenza A (RT-PCR) Negative (Negative) Influenza B (RT-PCR) Negative (Negative) RSV (RT-PCR) Negative (Negative) SARS-CoV-2 RNA (RT-PCR) Negative (Negative) ABG Data ABG results: 02/02/25 13:51 Puncture Site Right radial ABG pH 7.409 ABG pCO2 39.8 ABG pO2 64.2 L ABG PO2/FiO2 Ratio 3.06 ABG HCO3 24.6 ABG O2 Saturation 92.7 L ABG O2 Content 20.5 ABG Base Excess 0.1 A-a Gradient 37.9 Oxyhemoglobin 90.8 Total Hemoglobin 16.1 O2 Delivery Device Room air O2 Liters/Min Not Reportable FiO2 21 Discharge Plan Discharge Clinical Impression: Generalized weakness, Ground-level fall, Acute UTI Patient Disposition: Still a Patient Condition: Stable Patient Language: Moldovan Prescriptions: No Action acetaminophen [Tylenol Arthritis Pain] 650 mg tablet extended release 650 mg PO Q12H PRN (Reason: pain 1-4) flecainide 50 mg Tablet 50 mg PO Q12H warfarin 6 mg tablet 6 mg PO DAILY Qty: 30 0RF Protocol: Dose Management Condition: Thursday Dose/Route: 6 mg Instruction: 1 x 6 mg tablet Condition: Thursday Dose/Route: 6 mg Instruction: 1 x 6 mg tablet Condition: Thursday Dose/Route: 6 mg Instruction: 1 x 6 mg tablet Condition: Thursday Dose/Route: 6 mg Instruction: 1 x 6 mg tablet Condition: Dose/Route: 6 mg Instruction: 1 x 6 mg tablet Condition: Thursday Dose/Route: 6 mg Instruction: 1 x 6 mg tablet Condition: Thursday Dose/Route: 6 mg Instruction: 1 x 6 mg tablet Protocol Text: Adjustment Start Date: Thursday01/27/25 INR Value: 2.6 INR Date: 01/27/25 Recheck Date: 02/03/25 triamcinolone acetonide 0.1 % cream 1 applic topical BID Qty: 80 0RF Adult 50 Plus Probiotic 4 billion cell capsule 4,000 mmu cells PO DAILY Rx Instructions: administer with a meal (DME) wheeled walker XL See Rx Instructions .Route .MEDSUPPLY Qty: 1 0RF Rx Instructions: As directed (DME) knee high medium compression stockings See Rx Instructions .Route .MEDSUPPLY Qty: 1 0RF Rx Instructions: As directed daily for leg edema (DME) diabetic shoes See Rx Instructions .Route .MEDSUPPLY Qty: 1 0RF Rx Instructions: As directed (DME) FreeStyle [place] 3 Plus Sensor Device See Rx Instructions .Route Qty: 2 12RF Rx Instructions: As directed QID lidocaine [Salonpas (lidocaine)] 4 % adhesive patch,medicated 1 patch topical DAILY PRN (Reason: pain) Qty: 30 6RF Rx Instructions: Apply for 12 hours on and 12 hours off. loratadine 10 mg Capsule 10 mg PO DAILY docusate sodium 50 mg Capsule 50 mg PO BID cholecalciferol (vitamin D3) 50 mcg (2,000 unit) Capsule 50 mcg PO DAILY alpha lipoic acid 200 mg Capsule 200 mg PO DAILY (DME) NovoFine Plus 32 gauge x 1/6 needle See Rx Instructions .Route Qty: 100 5RF Rx Instructions: As directed TID to check glucose. (DME) OneTouch Ultra Test Strip See Rx Instructions .ROUTE .COMPLEX Qty: 100 3RF Dose Instruction: USE TO TEST BLOOD SUGAR THREE TIMES DAILY Rx Instructions: USE TO TEST BLOOD SUGAR THREE TIMES DAILY insulin glargine 100 unit/mL solution 44 unit SUBCUT HS Qty: 20 12RF (DME) lancets [OneTouch Delica Plus Lancet] 33 gauge misc See Rx Instructions .Route Qty: 300 12RF Rx Instructions: As directed TID (DME) compression stockings knee high 15-20mmHG See Rx Instructions .Route .MEDSUPPLY Qty: 1 0RF Rx Instructions: As directed daily (DME) wheeled walker See Rx Instructions .Route .MEDSUPPLY Qty: 1 0RF Rx Instructions: As directed daily (DME) FreeStyle [place] 3 [place] Misc See Rx Instructions .Route Qty: 2 12RF Rx Instructions: As directed QID furosemide 20 mg tablet See Rx Instructions .ROUTE .COMPLEX Qty: 90 1RF Dose Instruction: TAKE 1 TABLET BY MOUTH EVERY DAY FOR 30 DAYS Rx Instructions: TAKE 1 TABLET BY MOUTH EVERY DAY FOR 30 DAYS metoprolol tartrate 25 mg tablet 12.5 mg PO BID Qty: 90 3RF tamsulosin 0.4 mg capsule 0.8 mg PO DAILY Qty: 180 2RF warfarin 5 mg tablet 5 mg PO DAILY Qty: 30 6RF Protocol: Dose Management Condition: Thursday Dose/Route: 6 mg Instruction: 1 x 6 mg tablet Condition: Thursday Dose/Route: 6 mg Instruction: 1 x 6 mg tablet Condition: Thursday Dose/Route: 6 mg Instruction: 1 x 6 mg tablet Condition: Thursday Dose/Route: 6 mg Instruction: 1 x 6 mg tablet Condition: Dose/Route: 6 mg Instruction: 1 x 6 mg tablet Condition: Thursday Dose/Route: 6 mg Instruction: 1 x 6 mg tablet Condition: Thursday Dose/Route: 6 mg Instruction: 1 x 6 mg tablet Protocol Text: Adjustment Start Date: Thursday01/27/25 INR Value: 2.6 INR Date: 01/27/25 Recheck Date: 02/03/25 pregabalin 150 mg capsule 150 mg PO TID Qty: 270 1RF warfarin 1 mg tablet See Rx Instructions PO .COMPLEX Qty: 180 1RF Protocol: Dose Management Condition: Thursday Dose/Route: 6 mg Instruction: 1 x 6 mg tablet Condition: Thursday Dose/Route: 6 mg Instruction: 1 x 6 mg tablet Condition: Thursday Dose/Route: 6 mg Instruction: 1 x 6 mg tablet Condition: Thursday Dose/Route: 6 mg Instruction: 1 x 6 mg tablet Condition: Dose/Route: 6 mg Instruction: 1 x 6 mg tablet Condition: Thursday Dose/Route: 6 mg Instruction: 1 x 6 mg tablet Condition: Thursday Dose/Route: 6 mg Instruction: 1 x 6 mg tablet Protocol Text: Adjustment Start Date: Thursday01/27/25 INR Value: 2.6 INR Date: 01/27/25 Recheck Date: 02/03/25 Rx Instructions: Take 1-2 tab orally; to make 6mg and 7mg respectively Trelegy Ellipta 200-62.5-25 mcg blister with device 1 inh inhalation DAILY Qty: 60 5RF triamcinolone acetonide 0.1 % cream 1 applic topical BID Qty: 80 1RF Rx Instructions: bilateral feet levothyroxine 50 mcg tablet 50 mcg PO DAILY Qty: 90 2RF atorvastatin 20 mg tablet 20 mg PO DAILY Qty: 90 3RF Fiasp FlexTouch U-100 Insulin 100 unit/mL (3 mL) insulin pen See Rx Instructions subcut .COMPLEX Qty: 15 12RF Rx Instructions: Inject 8-10 units subcutaneously TID AC; dapagliflozin propanediol [Farxiga] 10 mg tablet 10 mg PO DAILY Qty: 90 1RF amoxicillin-pot clavulanate [Augmentin] 500-125 mg tablet 1 tablet PO DAILY Qty: 60 1RF Rx Instructions: permanent azelastine 137 mcg (0.1 %) spray,non-aerosol 137 mcg intranasal Q12H Qty: 30 2RF Rx Instructions: 2 spray administer into each nostril. every morning and night albuterol sulfate [ProAir HFA] 90 mcg/actuation HFA aerosol inhaler 2 puff INHALATION Q2-4H PRN (Reason: shortness of breath or wheezing) Qty: 8.5 11RF Rx Instructions: Inhale two puffs by mouth every 2-4 hours as needed. omeprazole 20 mg capsule,delayed release(DR/EC) 20 mg PO DAILY Qty: 90 1RF baclofen 10 mg tablet 10 mg PO TID Qty: 270 1RF (DME) pen needle, diabetic 32 gauge x 5/32 needle See Rx Instructions .Route Qty: 100 12RF Rx Instructions: As directed four times daily with insulin (DME) skin supervisor color making adhesive bandage for Freestyle [place] See Rx Instructions .Route .MEDSUPPLY Qty: 8 12RF Rx Instructions: As directed weekly diclofenac sodium 1 % gel 4 g topical QID Qty: 300 3RF Rx Instructions: apply to single knee, ankle, foot; for foot includes sole/toes/top of foot Follow-up/Referrals: Liset Haynes MD [Primary Care Provider] - Time of Disposition: 15:55
--- NOTE | 2025-02-02 16:23 | ECG_ITS ---
Test Date: 2025-02-02 16:29:30 Measurements Intervals [place] Rate: 59 P: 50 OR: 224 QRS: 31 QRSD: 104 T: 42 QT: 421 QTc: 419 Interpretive Statements SINUS BRADYCARDIA WITH FIRST DEGREE AV BLOCK Compared to ECG 02/02/2025 15:13:56 No significant changes Electronically Signed On 02-02-2025 16:54:34 CDT by Joanna Renee
--- NOTE | 2025-02-02 16:33 | P.HP_ITS ---
H&P: HPI History of Present Illness Date/Time: 02/02/25 16:33 Chief Complaint: Weakness and a fall Narrative: 84-year-old male past medical history of COPD, diabetes, history of PE, BPH, blind presents to the hospital with increased weakness and a fall. Patient states that he has been feeling weak over the last 2 days or so. He was using his walker to close the ramp's edge and fell. Per the patient he denies patient is walker off around. He states that he fell in the kitchen and when he went to stand up he had his head on the counter. For all other questions he says as my daughter. Patient states that his blood sugar goes hypoglycemic at night about 50's, will reduce home Lantus. CBC shows no acute findings, INR 2.8, ABG pH 7.4, pCO2 39, PO2 64, troponin negative, UA shows dark urine with 1+ leukocyte esterase, negative for nitrates, 51-100 wbc's. Influenza a B RSV and COVID negative. CTA shows cholelithiasis and bladder diverticuli. Chest x-ray shows interstitial opacities in bilateral mid and lower lung zones with bronchial wall thickening most likely mild pulmonary edema although differential includes bronchitis/pneumonia and small left pleural effusion with associated left basilar atelectasis and/or pneumonia. Review of Systems Review of Systems: 12 systems were reviewed and are negativ e except for as per HPI. [facility] Past Medical History Medical History Trochanteric bursitis, right hip Arthritis of elbow, left, degenerative Arthritis of right shoulder region Right shoulder strain Right arm pain Olecranon bursitis of right elbow Atrial fibrillation Rupture of left Achilles tendon Left ankle pain Constipation High cholesterol SOB (shortness of breath) Vision changes COPD (chronic obstructive pulmonary disease) Osteomyelitis, chronic BPH (benign prostatic hyperplasia) History of hemorrhoids History of pulmonary embolism History of deep vein thrombosis (DVT) of lower extremity Acute exacerbation of chronic obstructive airways disease Pneumonia due to COVID-19 virus Hypothyroidism determined by thyroid function test Weakness of both lower extremities Diabetes mellitus with neuropathy Ankle syndesmosis disruption Ankle fracture, bimalleolar, closed Infection of spine Chronic antibiotic suppression Chronic anticoagulation Recurrent deep vein thrombosis (DVT) Hypertension Spleen absent Rotator cuff arthropathy of right shoulder Surgical History Surgical History Total knee replacement status H/O bilateral cataract extraction H/O splenectomy S/P rotator cuff repair H/O colonoscopy with polypectomy History of pancreatic surgery Removal of pancreatic mass ([place]) History of embolic filter insertion Hx of hernia repair History of back surgery x2 ([place]), x1 ([place] [facility]) H/O total knee replacement Bilaterally Family History Family History Grandparent Diabetes mellitus Father Family history of cardiovascular disease Intracranial aneurysm Mother Dvt femoral (deep venous thrombosis) Sibling Throat cancer Sister Acute myocardial infarction Brother Social History Social History Social History: The patient is and remarried; he lives with his . Patient was smoking up to 3 packs of cigarettes a day. 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 He drinks occasionally denies any illicit drugs. He is listed as a DNR. He nominates His to be the individual who would make medical decisions for him if he is unable. Smoking packs per day: 1 Smoking cigarettes per day: 20.0 Years smoked: 12 Smoking pack-years: 12.00 Smoking status: Former smoker Tobacco type: cigarettes Second hand tobacco smoke exposure: No Smoking end date: 04/13/80 Alcohol intake: current Drinks per week: 1 Substance use: never Substance use type: does not use Do You Feel Safe in your Home?: Yes Lack of Transportation: No Lack of Food: Never True Current Housing: I Have Housing Concerned About Future Housing: No Difficulty Paying Gas/Electric Bills: No Difficulty Paying for Meds: No Currently Unemployed: No Education: High School Diploma/GED Difficulty w/ Childcare or Family Care: No Living arrangements: with family Occupation/Education: retired Gender identity (if verbalized by the patient): Male Additional gender identity comments: Lives with Sexual Orientation (if Verbalized by the Patient): Straight or Heterosexual Spiritual care concerns: No Agree to blood products: Yes Meds Home Medications and Allergies Home Medications ?Medication ?Instructions ?Recorded ?Confirmed ?Type flecainide 50 mg tablet 50 mg PO Q12H 06/21/19 02/02/25 History docusate sodium 50 mg capsule 50 mg PO BID 06/14/20 02/02/25 History loratadine 10 mg capsule 10 mg PO DAILY 06/14/20 02/02/25 History lactobacillus combination no.9 4 4,000 mmu cells PO DAILY 11/07/21 02/02/25 History billion cell capsule (Adult 50 Plus Probiotic) pen needle, diabetic 32 gauge x #100 ea 04/22/22 02/02/25 Rx 1/6 (NovoFine Plus) wheeled walker XL #1 ea 03/19/23 02/02/25 Rx blood sugar diagnostic (OneTouch #100 strips 05/19/23 02/02/25 Rx Ultra Test strips) acetaminophen 650 mg 650 mg PO Q12H PRN pain 1-4 10/12/23 02/02/25 History tablet,extended release (Tylenol Arthritis Pain) warfarin 6 mg tablet 6 mg PO DAILY #30 tabs 12/09/23 02/02/25 Rx insulin glargine 100 unit/mL 44 unit (0.44 mL) subcut HS #20 mL 01/15/24 02/02/25 Rx subcutaneous solution lancets 33 gauge (OneTouch Delica #300 ea 03/07/24 02/02/25 Rx Plus Lancet) alpha lipoic acid 200 mg capsule 200 mg PO DAILY 04/13/24 02/02/25 History cholecalciferol (vitamin D3) 50 50 mcg PO DAILY 04/13/24 02/02/25 History mcg (2,000 unit) capsule compression stockings knee high #1 ea 05/04/24 02/02/25 Rx 15-20mmHG blood-glucose sensor (FreeStyle #2 ea 05/27/24 02/02/25 Rx Santiago 3 Plus Sensor device) diabetic shoes #1 ea 05/27/24 02/02/25 Rx knee high medium compression #1 ea 05/27/24 02/02/25 Rx stockings lidocaine 4 % topical patch 1 patch topical DAILY PRN pain #30 05/27/24 02/02/25 Rx (Salonpas (lidocaine)) ea wheeled walker #1 ea 06/06/24 02/02/25 Rx blood-glucose,farmworkers,cont #2 ea 07/03/24 02/02/25 Rx (FreeStyle Santiago 3 [place]) furosemide 20 mg tablet See Rx Instructions .Route 07/11/24 02/02/25 Rx .COMPLEX #90 tabs metoprolol tartrate 25 mg tablet 12.5 mg (1/2 x 25 mg) PO BID #90 07/29/24 02/02/25 Rx tabs tamsulosin 0.4 mg capsule 0.8 mg (2 x 0.4 mg) PO DAILY #180 08/14/24 02/02/25 Rx caps warfarin 5 mg tablet 5 mg PO DAILY #30 tabs 08/23/24 02/02/25 Rx pregabalin 150 mg capsule 150 mg PO TID #270 caps 08/24/24 02/02/25 Rx warfarin 1 mg tablet See Rx Instructions PO .COMPLEX 09/16/24 02/02/25 Rx #180 tabs fluticasone fur. 200 mcg-umeclid 1 inh inhalation DAILY #60 ea 09/18/24 02/02/25 Rx 62.5 mcg-vilant 25 mcg inhalat.powder (Trelegy Ellipta) triamcinolone acetonide 0.1 % 1 applic topical BID #80 grams 09/19/24 02/02/25 Rx topical cream atorvastatin 20 mg tablet 20 mg PO DAILY #90 tabs 09/22/24 02/02/25 Rx levothyroxine 50 mcg tablet 50 mcg PO DAILY #90 tabs 09/22/24 02/02/25 Rx triamcinolone acetonide 0.1 % 1 applic topical BID #80 grams 10/03/24 02/02/25 Rx topical cream insulin aspart See Rx Instructions subcut 10/04/24 02/02/25 Rx (niacinamide)(U-100) 100 unit/mL(3 .COMPLEX #15 mL mL) subcutaneous pen (Fiasp FlexTouch U-100 Insulin) dapagliflozin propanediol 10 mg 10 mg PO DAILY #90 tabs 10/12/24 02/02/25 Rx tablet (Farxiga) amoxicillin 500 mg-potassium 1 tablet PO DAILY #60 tabs 11/21/24 02/02/25 Rx clavulanate 125 mg tablet (Augmentin) azelastine 137 mcg (0.1 %) nasal 137 mcg (0.137 mL) intranasal Q12H 12/07/24 02/02/25 Rx spray #30 mL albuterol sulfate 90 mcg/actuation 2 puff inhalation Q2-4H PRN 12/20/24 02/02/25 Rx aerosol inhaler (ProAir HFA) shortness of breath or wheezing #8.5 grams baclofen 10 mg tablet 10 mg PO TID #270 tabs 12/22/24 02/02/25 Rx omeprazole 20 mg capsule,delayed 20 mg PO DAILY #90 caps 12/22/24 02/02/25 Rx release pen needle, diabetic 32 gauge x #100 ea 01/06/25 02/02/25 Rx 5/32 skin respiratory therapy technician adhesive bandage for #8 ea 01/06/25 02/02/25 Rx Freestyle Santiago diclofenac sodium 1 % topical gel 4 g topical QID #300 grams 01/24/25 02/02/25 Rx Allergies Allergy/AdvReac Type Severity Reaction Status Date / Time No Known Drug Allergies Allergy Unknown Unknown Verified 02/02/25 19:47 Vital Signs Vital Signs - 24 hr 02/02/25 13:02 02/02/25 13:41 02/02/25 13:46 Temperature 98.2 F Pulse Rate 71 63 62 Respiratory Rate 16 17 20 Blood Pressure 137/77 131/65 123/62 Pulse Oximetry 98 92 95 Oxygen Delivery Oxygen Flow Rate 02/02/25 13:55 02/02/25 14:00 02/02/25 15:33 Temperature Pulse Rate 59 L Respiratory Rate 17 Blood Pressure Pulse Oximetry 92 97 98 Oxygen Delivery Nasal Cannula Nasal Cannula Oxygen Flow Rate 2 2 02/02/25 16:28 Temperature Pulse Rate 60 Respiratory Rate 17 Blood Pressure 150/73 H Pulse Oximetry 95 Oxygen Delivery Oxygen Flow Rate Exam Narrative: General: well appearing, appears stated age. HEENT: normocephalic, atraumatic. Mucous membranes moist. EOMI, PERRLA, bilateral sclera anicteric, no conjunctival injection. Neck supple without JVD, lymphadenopathy, or bruit. Respiratory: clear to ascultation bilaterally. No rales/rhonic/wheezes. Cardiovascular: Regular rate and rhythm, normal S1-S2 upon ascultation. No murmurs, rubs, or clicks. PMI is nondisplaced, capillary refill less than 3 second. Abdomen: Obese Soft, round, no pulsatile masses, nondistended and nontender. No rebound, no guarding. No CVA tenderness, no hepatosplenomegaly. Bowel sounds present to all four quadrants. No high pitch or tinkling sounds, resonant to percussion. Extremities: No cyanosis, clubbing, Pulses are palpable 2/2. Active ROM to all four extremities. 2+ lower extremity edema Neuro: Alert and orientated x 4. PERRLA. Cranial nerves 2-12 intact without focal deficit. Skin: Warm, dry, and intact, without rash, erythema, or lesion. Psych: pleasant, cooperative, normal speech, normal affect, no hallucinations, no dysarthia H&P: Results Labs Labs: Short CBC 02/02/25 Range/Units 13:36 WBC 7.7 (4.5-10.0) K/mm3 Hgb 16.1 (14.0-18.0) g/dL Hct 49.4 (42.0-52.0) % Plt Count 245 (150-375) k/mm3 BMP 02/02/25 13:36 Sodium 138 Potassium 4.3 Chloride 107 Carbon Dioxide 27 BUN 17 Creatinine 1.26 Glucose 118 H Calcium 8.8 Cardiac Enzymes 02/02/25 Range/Units 13:36 Troponin I < 0.012 (0.000-0.034) ng/mL Liver Function 02/02/25 Range/Units 13:36 Total Bilirubin 0.7 (0.2-1.3) mg/dL AST 26 (17-59) U/L ALT 23 (6-50) U/L Alkaline Phosphatase 102 (38-126) U/L Albumin 3.3 L (3.5-5.1) g/dL Urine 02/02/25 Range/Units 15:22 Urine Color Dark yellow (Yellow) Urine Appearance Clear (Clear) Urine pH 5.0 (5.0-9.0) Ur Specific [place] > 1.045 H (1.001-1.035) Urine Protein Negative (Negative) mg/dL Urine Glucose (UA) 3+ H (Negative) mg/dL Assessment and Plan Assessment and plan (1) Weakness: Code(s): R53.1 - Weakness Status: Acute Assessment and Plan: With fall PT OT evaluate and treat Traumatic workup negative for acute injury (2) Acute UTI: Code(s): N39.0 - Urinary tract infection, site not specified Status: Acute Assessment and Plan: IV Rocephin Culture and sensitivity pending (3) Pneumonia: Code(s): J18.9 - Pneumonia, unspecified organism Status: Acute Assessment and Plan: Likely pneumonia seen on chest x-ray and CT Azithromycin and Rocephin (4) Chronic deep vein thrombosis (DVT): Code(s): I82.509 - Chronic embolism and thrombosis of unspecified deep veins of unspecified lower extremity Status: Acute Assessment and Plan: INR 2.8 On warfarin Daily PTT INR Patient does not know which home dose he is post get tomorrow warfarin will order 6 mg adjust as needed (5) Diabetes mellitus with neuropathy: Qualifiers: Diabetes mellitus intermediate insulin use: with terminal computer operator use Diabetes mellitus type: type 2 Qualified Code(s): E11.40 - Type 2 diabetes mellitus with diabetic neuropathy, unspecified; Z79.4 - MCC (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 Code(s): E11.40 - Type 2 diabetes mellitus with diabetic neuropathy, unspecified Status: Acute Assessment and Plan: Diabetic diet Medium dose SSI Patient states that he hypoglycemic overnight and D's will reduce home Lantus from 44 units to 32 (6) Hypertension: Qualifiers: Hypertension type: essential hypertension Qualified Code(s): I10 - E ssential (primary) hypertension Code(s): I10 - Essential (primary) hypertension Status: Chronic Assessment and Plan: Continue Lasix (7) Hyperlipidemia: Qualifiers: Hyperlipidemia type: mixed hyperlipidemia Qualified Code(s): E78.2 - Mixed hyperlipidemia Code(s): E78.5 - Hyperlipidemia, unspecified Status: Acute Assessment and Plan: Continue home statin (8) Atrial fibrillation: Code(s): I48.91 - Unspecified atrial fibrillation Status: Acute Assessment and Plan: Patient on warfarin and metoprolol Quality VTE Prophylaxis VTE prophylaxis: pharmacologic ordered Hospitalist MIPS Advance Care Plan I have confirmed that the patient's Advanced Care Plan is present, code status is documented, or surrogate decision maker is listed in patient medical record.: Yes Medication Reconciliation I have utilized all available resources to obtain, update and review the patients current medications (includes all prescriptions, OTC, herbals, cannabis, and nutritional supplements).: Yes
[2025-02-02 17:07] LABS: Troponin I < 0.012 ng/mL (0.000-0.034)
[2025-02-02] MEDS: HYDROcodone/acetaminophen (*CRX) 5-325 MG TABLET 1 TAB PO ×2 (18:00→22:38)
[2025-02-02] MEDS: DOCUSATE SODIUM 100 MG CAPSULE PO (18:00)
[2025-02-02] MEDS: AZITHROMYCIN IV 250 MG in SODIUM CHLORIDE 0.9% IV 250 ML IVPB (18:00)
--- NOTE | 2025-02-02 18:58 | ADMGEN ---
This patient, Neal Amaro, was admitted to [facility] Surg Room 330-02. Patient/family oriented to hospital policies and general routines including ID bracelet, bed and alarms, visiting hours, pain management, procedures, bathroom and other care routines, personal items, smoking policy, room service/diet, and visiting hours. Information on how to activate the Rapid Response Team has been discussed. Patient/Family are encouraged to report perceived risks to care and to ask questions if they do not understand what they are told or what they should do.
--- NOTE | 2025-02-02 19:48 | PC.NURSE ---
patient arrived on 3 [facility] at 1845
[2025-02-02] MEDS: BACLOFEN 10 MG TABLET PO (20:38)
[2025-02-02] MEDS: METOPROLOL TARTRATE 12.5 MG TABLET PO (20:39)
[2025-02-02] MEDS: INSULIN ASPART (*BKC) 100 UNITS/ML SUB-Q (20:40)
[2025-02-02] MEDS: PREGABALIN (*CRX) 75 MG CAPSULE 150 MG PO (21:44)
[2025-02-03] VITALS (9 sets, daily range): BP systolic 110–142; BP diastolic 52–89; PULSE 73–84; RESP 18; TEMP 36.3–37.2; O2SAT 92–98
[2025-02-03] MEDS: INSULIN GLARGINE (*BKC) 100 UNITS/ML 32 UNITS SUB-Q ×2 (00:43→21:25)
[2025-02-03] MEDS: DOXYCYCLINE HYCLATE 100 MG TABLET PO ×3 (00:43→21:25)
[2025-02-03] MEDS: ALBUTEROL SULFATE (*SP) AEROSOL 1 PUFF 2 PUFF INHALATION ×2 (02:41→20:20)
[2025-02-03] MEDS: HYDROcodone/acetaminophen (*CRX) 5-325 MG TABLET 1 TAB PO ×4 (05:19→23:48)
[2025-02-03] MEDS: PREGABALIN (*CRX) 75 MG CAPSULE 150 MG PO ×3 (05:20→21:25)
[2025-02-03] MEDS: LEVOTHYROXINE SODIUM 50 MCG TABLET PO (05:36)
[2025-02-03 06:17] LABS: Hematocrit 53.1 % (42.0-52.0); Hemoglobin 16.8 g/dL (14.0-18.0); Immature Granulocyte Percent A 1.6 % (0-0.5); Lymphocytes Absolute Auto 0.29 K/mm3 (0.9-3.2); Mean Corpuscular HGB Conc 31.6 g/dl (32-36); Mean Corpuscular Hemoglobin 27.0 pg (26-34); Mean Corpuscular Volume 85.2 fl (80-100); Nucleated Red Blood Cells Absolute Auto 0.000 K/mm3 (0.0-0.012); Nucleated Red Blood Cells Perc 0.0 % (0.0-0.2); Platelet Count Result 211 k/mm3 (150-375); Red Blood Count 6.23 M/mm3 (4.6-6.20); White Blood Count 8.2 K/mm3 (4.5-10.0)
[2025-02-03 06:32] LABS: INR 2.3; Partial Thromboplastin Time 31.1 Seconds (22.3-36.8); Prothrombin Time 24.5 Seconds (11.1-14.7)
[2025-02-03 06:39] LABS: Anion Gap 5 mmol/L (4-12); Blood Urea Nitrogen 16 mg/dL (9-20); Calcium 8.5 mg/dL (8.4-10.2); Carbon Dioxide 24 mmol/L (22-30); Chloride 109 mmol/L (98-107); Estimated CRCL calculation 72 ml/min; Estimated Glomerular Filt Rate > 60; Glucose 94 mg/dL (65-110); Potassium 4.5 mmol/L (3.4-5.0); Sodium 138 mmol/L (137-145)
--- NOTE | 2025-02-03 07:38 | P.PNIM_ITS ---
Progress Note: A&P Assessment and Plan (1) Weakness: Code(s): R53.1 - Weakness Status: Acute Assessment and Plan: * With fall * PT OT evaluate and treat * Traumatic workup negative for acute injury (2) Acute UTI: Code(s): N39.0 - Urinary tract infection, site not specified Status: Acute Assessment and Plan: * UA: 51-100 WBC, 6-10 RBC, 1+ Leuk esterase * UC pending * IV Rocephin * Culture and sensitivity pending (3) Pneumonia: Code(s): J18.9 - Pneumonia, unspecified organism Status: Acute Assessment and Plan: * CXR: Interstitial opacities in bilateral mid and lower lung zones with bronchial wall thickening most likely mild pulmonary edema although differential includes bronchitis/pneumonia. Small left pleural effusion with associated left basilar atelectasis and/or pneumonia. * Risk Factors: none * Complicating Factors: none * started on CAP tx: azithromycin & ceftriaxone * Viral PCR: negative for Flu/COVID/RSV * Consider ordering legionella, mycoplasma and pneumococcal * supportive treatment * trend labs * Monitor vital signs, I&Os, neuro status and patient is a fall risk * Follow WBC, serum electrolytes, temperature curves and cultures * Gentle IV fluid resuscitation (4) Chronic deep vein thrombosis (DVT): Code(s): I82.509 - Chronic embolism and thrombosis of unspecified deep veins of unspecified lower extremity Status: Acute Assessment and Plan: * INR 2.8 * On warfarin * Daily PTT INR * Patient does not know which home dose he is * Will order 6 mg adjust as needed of Warfarin (5) Diabetes mellitus with neuropathy: Qualifiers: 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 use: with [facility] use Diabetes mellitus type: type 2 Qualified Code(s): E11.40 - Type 2 diabetes mellitus with diabetic neuropathy, unspecified; Z79.4 - intermediate (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 Code(s): E11.40 - Type 2 diabetes mellitus with diabetic neuropathy, unspecified Status: Acute Assessment and Plan: * Diabetic diet * Medium dose SSI * Patient states that he hypoglycemic overnight and D's will reduce home Lantus from 44 units to 32 (6) Hypertension: Qualifiers: Hypertension type: essential hypertension Qualified Code(s): I10 - Essential (primary) hypertension Code(s): I10 - Essential (primary) hypertension Status: Chronic Assessment and Plan: * Continue Lasix (7) Hyperlipidemia: Qualifiers: Hyperlipidemia type: mixed hyperlipidemia Qualified Code(s): E78.2 - Mixed hyperlipidemia Code(s): E78.5 - Hyperlipidemia, unspecified Status: Acute Assessment and Plan: * Continue home statin (8) Atrial fibrillation: Code(s): I48.91 - Unspecified atrial fibrillation Status: Acute Assessment and Plan: * EKG on 02/02: Sinus Lobo w/ 1 degree AV block (chronic) * Patient on warfarin and metoprolol * Stable Subjective Date/time seen: 02/03/25 07:38 Interval history: 84-year-old male past medical history of COPD, diabetes, history of PE, BPH, blind presents to the hospital with increased weakness and a fall. 02/03/2025 Patient sitting comfortably in bed at time of exam. Denies any chest pain, shortness of breath, abdominal pain or n/v at this time. Remains afebrile and no leukocytosis. Urine culture still pending. Still treating empirically for UTI/Pneumonia - Ceftriaxone+doxy. Still pending PT/OT evals, will likely need SNF placement upon discharge. Pt also endorsed right calf pain last night that subsided over a few minutes, will obtain lower extremity US to r/o DVT - continue dvt prophylaxis. Review of Systems Review of Systems: 12 systems were reviewed and are negativ e except for as per HPI. Exam Narrative: General: well appearing, appears stated age. HEENT: normocephalic, atraumatic. Mucous membranes moist. EOMI, PERRLA, bilateral sclera anicteric, no conjunctival injection. Neck supple without JVD, lymphadenopathy, or bruit. Respiratory: clear to ascultation bilaterally. No rales/rhonic/wheezes. Cardiovascular: Regular rate and rhythm, normal S1-S2 upon ascultation. No murmurs, rubs, or clicks. PMI is nondisplaced, capillary refill less than 3 second. Abdomen: Obese Soft, round, no pulsatile masses, nondistended and nontender. No rebound, no guarding. No CVA tenderness, no hepatosplenomegaly. Bowel sounds present to all four quadrants. No high pitch or tinkling sounds, resonant to percussion. Extremities: No cyanosis, clubbing, Pulses are palpable 2/2. Active ROM to all four extremities. 2+ lower extremity edema Neuro: Alert and orientated x 4. PERRLA. Cranial nerves 2-12 intact without focal deficit. Skin: Warm, dry, and intact, without rash, erythema, or lesion. Psych: pleasant, cooperative, normal speech, normal affect, no hallucinations, no dysarthia Objective Data Vital Signs Vital Signs: Vital Signs - 24 hr 02/02/25 13:02 02/02/25 13:41 02/02/25 13:46 Temperature 98.2 F Pulse Rate 71 63 62 Respiratory Rate 16 17 20 Blood Pressure 137/77 131/65 123/62 Pulse Oximetry 98 92 95 Oxygen Delivery Oxygen Flow Rate 02/02/25 13:55 02/02/25 14:00 02/02/25 15:33 Temperature Pulse Rate 59 L Respiratory Rate 17 Blood Pressure Pulse Oximetry 92 97 98 Oxygen Delivery Nasal Cannula Nasal Cannula Oxygen Flow Rate 2 2 02/02/25 16:28 02/02/25 20:39 02/02/25 20:43 Temperature Pulse Rate 60 61 Respiratory Rate 17 Blood Pressure 150/73 H Pulse Oximetry 95 Oxygen Delivery Room Air Oxygen Flow Rate 02/02/25 20:52 02/03/25 02:53 02/03/25 05:14 Temperature 97.2 F L 99.0 F Pulse Rate 61 79 Respiratory Rate 20 18 Blood Pressure 128/71 142/89 H Pulse Oximetry 92 93 98 Oxygen Delivery Nasal Cannula Oxygen Flow Rate 3 Intake/Output Intake/Output: Intake & Output 01/31/25 02/01/25 02/02/25 02/03/25 23:59 23:59 23:59 23:59 Intake Total 1050 900 Output Total 400 900 Balance 650 0 Meds/Results Medications: Active Medications Generic Name Dose Route Start Last Admin Trade Name Freq PRN Reason Stop Dose Admin Acetaminophen 650 mg 02/02/25 15:56 Acetaminophen 325 Mg Tablet PO Q4H PRN Mild Pain (1-3) or Fever Hydrocodone Bitart/Acetaminophen 1 tab 02/02/25 16:46 02/03/25 05:19 Hydrocodone/Acetaminophen (*Crx) 5-325 Mg Tablet PO 1 tab Q4H PRN Administration Moderate Pain (4-6) Albuterol 2 puff 02/02/25 18:59 02/03/25 02:41 Albuterol Sulfate (*Sp) Aerosol 1 Puff INHALATION 2 puff Q2-4H PRN Administration shortness of breath or wheezing Atorvastatin Calcium 20 mg 02/03/25 09:00 Atorvastatin 20 Mg Tablet PO DAILY [facility] Baclofen 10 mg 02/02/25 19:15 02/02/25 20:38 Baclofen 10 Mg Tablet PO 10 mg TID [facility] Administration Dextrose 12.5 gm 02/02/25 16:48 Dextrose 50% 25 Gm/50 Ml Syringe IV PUSH PRN PRN Hypoglycemia Protocol Docusate Sodium 100 mg 02/03/25 09:00 Docusate Sodium 100 Mg Capsule PO BID [facility] Doxycycline Hyclate 100 mg 02/02/25 23:00 02/03/25 00:43 Doxycycline Hyclate 100 Mg Tablet PO 100 mg Q12HR [facility] Administration Flecainide Acetate 50 mg 02/03/25 09:00 Flecainide Acetate 50 Mg Tablet PO Q12HR [facility] Fluticasone/Umeclidinium/Vilanterol 1 puff 02/03/25 09:00 Fluticasone/Umeclidin/Vilanter 200-62.5-25 Mcg Ellipta INHALATION DAILY [facility] Furosemide 20 mg 02/03/25 09:00 Furosemide 20 Mg Tablet BY MOUTH DAILY [facility] Glucagon 1 mg 02/02/25 16:48 Glucagon For Inj 1 Mg Vial IM PRN PRN Hypoglycemia Protocol Glucose 15 gm 02/02/25 16:48 Glucose Oral Gel 15 Gm Of Glucse In 37.5 Gm Tube PO PRN PRN Hypoglycemia Protocol Ceftriaxone Sodium 1 gm in 50 mls @ 100 mls/hr 02/03/25 16:00 Rocephin 1 Gm/Ns 50 Ml IVPB Q24H [facility] Dextrose 1,000 mls @ 100 mls/hr 02/02/25 16:48 Dextrose 5% 1,000 Ml IVPB PRN PRN Hypoglycemia Protocol Insulin Aspart 1 - 3 units 02/02/25 21:00 02/02/25 20:40 Insulin Aspart (*Bkc) 100 Units/Ml SUB-Q 1 units HS [facility] Administration Protocol Insulin Aspart 3 - 6 units 02/02/25 17:00 02/02/25 17:28 Insulin Aspart (*Bkc) 100 Units/Ml SUB-Q Not Given TIDWM [facility] Protocol Insulin Glargine 32 units 02/02/25 22:55 02/03/25 00:43 Insulin Glargine (*Bkc) 100 Units/Ml 0.2 units/kg (32 units) 32 units SUB-Q Administration HS [facility] Levothyroxine Sodium 50 mcg 02/03/25 06:30 02/03/25 05:36 Levothyroxine Sodium 50 Mcg Tablet PO 50 mcg DAILY@0630 [facility] Administration Loratadine 10 mg 02/03/25 09:00 Loratadine 10 Mg Tablet PO DAILY [facility] Metoprolol Tartrate 12.5 mg 02/02/25 21:00 02/02/25 20:39 Metoprolol Tartrate 12.5 Mg Tablet PO 12.5 mg Q12HR [facility] Administration Ondansetron HCl 4 mg 02/02/25 15:56 Ondansetron Inj 4 Mg/2 Ml Vial IV PUSH Q4H PRN Nausea Pregabalin 150 mg 02/02/25 22:00 02/03/25 05:20 Pregabalin (*Crx) 75 Mg Capsule PO 150 mg Q8HR [facility] Administration Tamsulosin HCl 0.8 mg 02/03/25 09:00 Tamsulosin Hcl 0.4 Mg Capsule PO DAILY [facility] Warfarin Sodium 6 mg 02/03/25 17:00 Warfarin (*Pbkc) 3 Mg Tablet PO DAILY@1700 [facility] Radiology Results: ITS Impressions Chest X-Ray 02/02/25 15:15 IMPRESSION: 1. Interstitial opacities in bilateral mid and lower lung zones with bronchial wall thickening most likely mild pulmonary edema although differential includes bronchitis/pneumonia. 2. Small left pleural effusion with associated left basilar atelectasis and/or pneumonia. Chest/Abdomen/Pelvis CT 02/02/25 15:20 IMPRESSION: 1. No acute fracture or acute vascular or visceral organ injury in the chest, abdomen or pelvis. 2. Cholelithiasis. 3. 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 Labs Labs: Laboratory Results - last 24 hr 02/02/25 02/02/25 02/02/25 13:36 13:51 15:15 WBC 7.7 RBC 5.87 Hgb 16.1 Hct 49.4 MCV 84.2 MCH 27.4 MCHC 32.6 RDW 19.9 H Plt Count 245 MPV 10.8 H Immature Gran % (Auto) 1.6 H Neut % (Auto) 67.9 Lymph % (Auto) 15.0 L [place] % (Auto) 13.1 H Eos % (Auto) 1.7 Baso % (Auto) 0.7 Lymph # (Auto) 1.15 [place] # (Auto) 1.0 H Eos # (Auto) 0.1 Baso # (Auto) 0.1 Abs Immat Gran (auto) 0.12 H Absolute Neuts (auto) 5.2 Absolute Nucleated RBC 0.000 Nucleated RBC % 0.0 PT 28.6 H INR 2.8 APTT 34.7 Puncture Site Right radial ABG pH 7.409 ABG pCO2 39.8 ABG pO2 64.2 L ABG PO2/FiO2 Ratio 3.06 ABG HCO3 24.6 ABG O2 Saturation 92.7 L ABG O2 Content 20.5 ABG Base Excess 0.1 A-a Gradient 37.9 Oxyhemoglobin 90.8 Total Hemoglobin 16.1 O2 Delivery Device Room air O2 Liters/Min Not Reportable FiO2 21 Sodium 138 Potassium 4.3 Chloride 107 Carbon Dioxide 27 Anion Gap 4 BUN 17 Creatinine 1.26 Estim Creat Clear Calc 63 Estimated GFR 55 L Glucose 118 H POC Capillary Glucose Lactic Acid 1.5 Calcium 8.8 Magnesium 2.2 Total Bilirubin 0.7 AST 26 ALT 23 Alkaline Phosphatase 102 Troponin I < 0.012 NT-Pro-B Natriuret Pep 96 Total Protein 6.7 Albumin 3.3 L Procalcitonin 0.1 Urine Color Urine Appearance Urine pH Ur Specific [place] Urine Protein Urine Glucose (UA) Urine Ketones Ur Blood (Man) Urine Nitrate Urine Bilirubin Urine Urobilinogen Add Ur Microanalysis Leukocyte Esterase Rfl Urine RBC Urine WBC Ur Squamous Epith Cells Urine Bacteria Urine Casts Influenza A (RT-PCR) Negative Influenza B (RT-PCR) Negative RSV (RT-PCR) Negative SARS-CoV-2 RNA (RT-PCR) Negative 02/02/25 02/02/25 02/02/25 15:22 16:25 16:34 WBC RBC Hgb Hct MCV MCH MCHC RDW Plt Count MPV Immature Gran % (Auto) Neut % (Auto) Lymph % (Auto) [place] % (Auto) Eos % (Auto) Baso % (Auto) Lymph # (Auto) [place] # (Auto) Eos # (Auto) Baso # (Auto) Abs Immat Gran (auto) Absolute Neuts (auto) Absolute Nucleated RBC Nucleated RBC % PT INR APTT Puncture Site ABG pH ABG pCO2 ABG pO2 ABG PO2/FiO2 Ratio ABG HCO3 ABG O2 Saturation ABG O2 Content ABG Base Excess A-a Gradient Oxyhemoglobin Total Hemoglobin O2 Delivery Device O2 Liters/Min FiO2 Sodium Potassium Chloride Carbon Dioxide Anion Gap BUN Creatinine Estim Creat Clear Calc Estimated GFR Glucose POC Capillary Glucose 73 Lactic Acid Calcium Magnesium Total Bilirubin AST ALT Alkaline Phosphatase Troponin I < 0.012 NT-Pro-B Natriuret Pep Total Protein Albumin Procalcitonin Urine Color Dark yellow Urine Appearance Clear Urine pH 5.0 Ur Specific [place] > 1.045 H Urine Protein Negative Urine Glucose (UA) 3+ H Urine Ketones Trace H Ur Blood (Man) Negative Urine Nitrate Negative Urine Bilirubin Negative Urine Urobilinogen 1.0 Add Ur Microanalysis Reviewed Leukocyte Esterase Rfl 1+ H Urine RBC 6-10 H Urine WBC 51-100 H Ur Squamous Epith Cells None seen Urine Bacteria None seen Urine Casts 3-5 Influenza A (RT-PCR) Influenza B (RT-PCR) RSV (RT-PCR) SARS-CoV-2 RNA (RT-PCR) 02/02/25 02/03/25 02/03/25 19:39 00:50 06:08 WBC 8.2 RBC 6.23 H Hgb 16.8 Hct 53.1 H MCV 85.2 MCH 27.0 MCHC 31.6 L RDW 20.0 H Plt Count 211 MPV 10.4 Immature Gran % (Auto) 1.6 H Neut % (Auto) 88.4 H Lymph % (Auto) 3.5 L [place] % (Auto) 4.0 Eos % (Auto) 2.1 Baso % (Auto) 0.4 Lymph # (Auto) 0.29 L [place] # (Auto) 0.3 Eos # (Auto) 0.2 Baso # (Auto) 0.0 Abs Immat Gran (auto) 0.13 H Absolute Neuts (auto) 7.3 H Absolute Nucleated RBC 0.000 Nucleated RBC % 0.0 PT 24.5 H INR 2.3 APTT 31.1 Puncture Site ABG pH ABG pCO2 ABG pO2 ABG PO2/FiO2 Ratio ABG HCO3 ABG O2 Saturation ABG O2 Content ABG Base Excess A-a Gradient Oxyhemoglobin Total Hemoglobin O2 Delivery Device O2 Liters/Min FiO2 Sodium 138 Potassium 4.5 Chloride 109 H Carbon Dioxide 24 Anion Gap 5 BUN 16 Creatinine 1.11 Estim Creat Clear Calc 72 Estimated GFR > 60 Glucose 94 POC Capillary Glucose 216 H 111 H Lactic Acid Calcium 8.5 Magnesium Total Bilirubin AST ALT Alkaline Phosphatase Troponin I NT-Pro-B Natriuret Pep Total Protein Albumin Procalcitonin Urine Color Urine Appearance Urine pH Ur Specific [place] Urine Protein Urine Glucose (UA) Urine Ketones Ur Blood (Man) Urine Nitrate Urine Bilirubin Urine Urobilinogen Add Ur Microanalysis Leukocyte Esterase Rfl Urine RBC Urine WBC Ur Squamous Epith Cells Urine Bacteria Urine Casts Influenza A (RT-PCR) Influenza B (RT-PCR) RSV (RT-PCR) SARS-CoV-2 RNA (RT-PCR) Quality VTE Prophylaxis VTE prophylaxis: pharmacologic ordered
[2025-02-03] MEDS: FLUTICASONE/UMECLIDIN/VILANTER 200-62.5-25 MCG ELLIPTA 1 PUFF INHALATION (08:29)
[2025-02-03] MEDS: ATORVASTATIN 20 MG TABLET PO (09:22)
[2025-02-03] MEDS: FUROSEMIDE 20 MG TABLET BY MOUTH (09:22)
[2025-02-03] MEDS: METOPROLOL TARTRATE 12.5 MG TABLET PO ×2 (09:22→21:26)
[2025-02-03] MEDS: TAMSULOSIN HCL 0.4 MG CAPSULE 0.8 MG PO (09:22)
[2025-02-03] MEDS: DOCUSATE SODIUM 100 MG CAPSULE PO ×2 (09:23→16:44)
[2025-02-03] MEDS: LORATADINE 10 MG TABLET PO (09:23)
[2025-02-03] MEDS: BACLOFEN 10 MG TABLET PO ×3 (09:23→16:44)
[2025-02-03] MEDS: FLECAINIDE ACETATE 50 MG TABLET PO ×2 (09:26→21:28)
[2025-02-03] MEDS: WARFARIN (*PBKC) 3 MG TABLET 6 MG PO (16:44)
[2025-02-03] MEDS: INSULIN ASPART (*BKC) 100 UNITS/ML SUB-Q (16:45)
[2025-02-04] MEDS: PREGABALIN (*CRX) 75 MG CAPSULE 150 MG PO ×3 (05:32→21:09)
[2025-02-04] MEDS: LEVOTHYROXINE SODIUM 50 MCG TABLET PO (05:32)
[2025-02-04] MEDS: HYDROcodone/acetaminophen (*CRX) 5-325 MG TABLET 1 TAB PO ×4 (05:36→21:08)
[2025-02-04 06:00] VITALS: BP 139/75; PULSE 59; RESP 18; TEMP 36.3; O2SAT 92
[2025-02-04 07:11] LABS: INR 1.8; Partial Thromboplastin Time 34.0 Seconds (22.3-36.8); Prothrombin Time 21.1 Seconds (11.1-14.7)
[2025-02-04 07:45] VITALS: O2SAT 94
[2025-02-04] MEDS: FLUTICASONE/UMECLIDIN/VILANTER 200-62.5-25 MCG ELLIPTA 1 PUFF INHALATION (07:46)
--- NOTE | 2025-02-04 08:54 | P.PNIM_ITS ---
Progress Note: A&P Assessment and Plan (1) Weakness: Code(s): R53.1 - Weakness Status: Acute Assessment and Plan: * With fall * PT OT evaluate and treat * Traumatic workup negative for acute injury (2) Acute UTI: Code(s): N39.0 - Urinary tract infection, site not specified Status: Acute Assessment and Plan: * UA: 51-100 WBC, 6-10 RBC, 1+ Leuk esterase * UC pending * IV Rocephin * Culture and sensitivity pending (3) RODRIGUEZ (acute kidney injury): Code(s): N17.9 - Acute kidney failure, unspecified Status: Acute Assessment and Plan: * In ED: Creatinine 1.26, GFR: 55 * Trend renal function * Trend electrolytes, correct as needed * Add CK, urine sodium, protein/creatinine, urea * 02/04: Cr 1.46 * Gentle IVF hydration (4) Pneumonia: Code(s): J18.9 - Pneumonia, unspecified organism Status: Acute Assessment and Plan: * CXR: Interstitial opacities in bilateral mid and lower lung zones with bronchial wall thickening most likely mild pulmonary edema although differential includes bronchitis/pneumonia. Small left pleural effusion with associated left basilar atelectasis and/or pneumonia. 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) * Patient on warfarin and metoprolol * Stable (6) Chronic deep vein thrombosis (DVT): Code(s): I82.509 - Chronic embolism and thrombosis of unspecified deep veins of unspecified lower extremity Status: Acute Assessment and Plan: * INR 2.8 * On warfarin * Daily PTT INR * Patient does not know which home dose he is * Will order 6 mg adjust as needed of Warfarin (7) Diabetes mellitus with neuropathy: Qualifiers: 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 Diabetes mellitus type: type 2 Qualified Code(s): E11.40 - Type 2 diabetes mellitus with diabetic neuropathy, unspecified; Z79.4 - jail (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 Code(s): E11.40 - Type 2 diabetes mellitus with diabetic neuropathy, unspecified Status: Acute Assessment and Plan: * Diabetic diet * Medium dose SSI * Patient states that he hypoglycemic overnight and D's will reduce home Lantus from 44 units to 32 (8) Hypertension: Qualifiers: Hypertension type: essential hypertension Qualified Code(s): I10 - Essential (primary) hypertension Code(s): I10 - Essential (primary) hypertension Status: Chronic Assessment and Plan: * Continue Lasix (9) Hyperlipidemia: Qualifiers: Hyperlipidemia type: mixed hyperlipidemia Qualified Code(s): E78.2 - Mixed hyperlipidemia Code(s): E78.5 - Hyperlipidemia, unspecified Status: Acute Assessment and Plan: * Continue home statin Subjective Date/time seen: 02/04/25 08:54 Interval history: 84-year-old male past medical history of COPD, diabetes, history of PE, BPH, blind presents to the hospital with increased weakness and a fall. 02/04/2025 Patient sitting comfortably at beside at time of exam. Pt sitting up looking much more alert and active today. Pt endorses significant improvement in breathing and overall energy levels. Remains afebrile without leukocytosis. Continue treatment for Pneumonia/UTI with IV abx, transition to oral in next 24- 48 hours. Pt developed mild rodriguez, Cr up to 1.46, will give gentle IVF hydration and check am labs. Review of Systems Review of Systems: 12 systems were reviewed and are negativ e except for as per HPI. Exam Narrative: General: well appearing, appears stated age. HEENT: normocephalic, atraumatic. Mucous membranes moist. EOMI, PERRLA, bilateral sclera anicteric, no conjunctival injection. Neck supple without JVD, lymphadenopathy, or bruit. Respiratory: clear to ascultation bilaterally. No rales/rhonic/wheezes. Cardiovascular: Regular rate and rhythm, normal S1-S2 upon ascultation. No murmurs, rubs, or clicks. PMI is nondisplaced, capillary refill less than 3 second. Abdomen: Obese Soft, round, no pulsatile masses, nondistended and nontender. No rebound, no guarding. No CVA tenderness, no hepatosplenomegaly. Bowel sounds present to all four quadrants. No high pitch or tinkling sounds, resonant to percussion. Extremities: No cyanosis, clubbing, Pulses are palpable 2/2. Active ROM to all four extremities. 2+ lower extremity edema Neuro: Alert and orientated x 4. PERRLA. Cranial nerves 2-12 intact without focal deficit. Skin: Warm, dry, and intact, without rash, erythema, or lesion. Psych: pleasant, cooperative, normal speech, normal affect, no hallucinations, no dysarthia Objective Data Vital Signs Vital Signs: Vital Signs - 24 hr 02/03/25 14:00 02/03/25 20:20 02/03/25 21:26 Temperature 97.8 F 97.3 F L Pulse Rate 73 73 73 Respiratory Rate 18 18 18 Blood Pressure 112/68 110/55 L Pulse Oximetry 94 95 Oxygen Delivery Fraction of Inspired Oxygen 02/03/25 21:26 02/03/25 21:27 02/03/25 21:28 Temperature Pulse Rate 73 73 Respiratory Rate Blood Pressure Pulse Oximetry Oxygen Delivery Room Air Fraction of Inspired Oxygen 02/03/25 22:40 02/04/25 06:00 02/04/25 07:45 Temperature 97.3 F L Pulse Rate 59 L Respiratory Rate 18 Blood Pressure 139/75 Pulse Oximetry 94 92 94 Oxygen Delivery Room Air Room Air Fraction of Inspired Oxygen 21 21 Intake/Output Intake/Output: Intake & Output 02/01/25 02/02/25 02/03/25 02/04/25 23:59 23:59 23:59 23:59 Intake Total 1050 1500 100 Output Total 400 1000 Balance 650 500 100 Meds/Results Medications: Active Medications Generic Name Dose Route Start Last Admin Trade Name Freq PRN Reason Stop Dose Admin Acetaminophen 650 mg 02/02/25 15:56 Acetaminophen 325 Mg Tablet PO Q4H PRN Mild Pain (1-3) or Fever Hydrocodone Bitart/Acetaminophen 1 tab 02/02/25 16:46 02/04/25 05:36 Hydrocodone/Acetaminophen (*Crx) 5-325 Mg Tablet PO 1 tab Q4H PRN Administration Moderate Pain (4-6) Albuterol 2 puff 02/02/25 18:59 02/03/25 20:20 Albuterol Sulfate (*Sp) Aerosol 1 Puff INHALATION 2 puff Q2-4H PRN Administration shortness of breath or wheezing Atorvastatin Calcium 20 mg 02/03/25 09:00 02/03/25 09:22 Atorvastatin 20 Mg Tablet PO 20 mg DAILY [facility] Administration Baclofen 10 mg 02/02/25 19:15 02/03/25 16:44 Baclofen 10 Mg Tablet PO 10 mg TID [facility] Administration Dextrose 12.5 gm 02/02/25 16:48 Dextrose 50% 25 Gm/50 Ml Syringe IV PUSH PRN PRN Hypoglycemia Protocol Docusate Sodium 100 mg 02/03/25 09:00 02/03/25 16:44 Docusate Sodium 100 Mg Capsule PO 100 mg BID [facility] Administration Doxycycline Hyclate 100 mg 02/02/25 23:00 02/03/25 21:25 Doxycycline Hyclate 100 Mg Tablet PO 100 mg Q12HR [facility] Administration Flecainide Acetate 50 mg 02/03/25 09:00 02/03/25 21:28 Flecainide Acetate 50 Mg Tablet PO 50 mg Q12HR [facility] Administration Fluticasone/Umeclidinium/Vilanterol 1 puff 02/03/25 09:00 02/04/25 07:46 Fluticasone/Umeclidin/Vilanter 200-62.5-25 Mcg Ellipta INHALATION 1 puff DAILY [facility] Administration Furosemide 20 mg 02/03/25 09:00 02/03/25 09:22 Furosemide 20 Mg Tablet BY MOUTH 20 mg DAILY [facility] Administration Glucagon 1 mg 02/02/25 16:48 Glucagon For Inj 1 Mg Vial IM PRN PRN Hypoglycemia Protocol Glucose 15 gm 02/02/25 16:48 Glucose Oral Gel 15 Gm Of Glucse In 37.5 Gm Tube PO PRN PRN Hypoglycemia Protocol Ceftriaxone Sodium 1 gm in 50 mls @ 100 mls/hr 02/03/25 16:00 02/03/25 16:44 Rocephin 1 Gm/Ns 50 Ml IVPB 100 mls/hr Q24H [facility] Administration Dextrose 1,000 mls @ 100 mls/hr 02/02/25 16:48 Dextrose 5% 1,000 Ml IVPB PRN PRN Hypoglycemia Protocol Insulin Aspart 1 - 3 units 02/02/25 21:00 02/03/25 21:27 Insulin Aspart (*Bkc) 100 Units/Ml SUB-Q Not Given HS [facility] Protocol Insulin Aspart 3 - 6 units 02/02/25 17:00 02/04/25 08:29 Insulin Aspart (*Bkc) 100 Units/Ml SUB-Q Not Given TIDWM [facility] Protocol Insulin Glargine 32 units 02/02/25 22:55 02/03/25 21:25 Insulin Glargine (*Bkc) 100 Units/Ml 0.2 units/kg (32 units) 32 units SUB-Q Administration HS [facility] Levothyroxine Sodium 50 mcg 02/03/25 06:30 02/04/25 05:32 Levothyroxine Sodium 50 Mcg Tablet PO 50 mcg DAILY@0630 [facility] Administration Loratadine 10 mg 02/03/25 09:00 02/03/25 09:23 Loratadine 10 Mg Tablet PO 10 mg DAILY [facility] Administration Metoprolol Tartrate 12.5 mg 02/02/25 21:00 02/03/25 21:26 Metoprolol Tartrate 12.5 Mg Tablet PO 12.5 mg Q12HR [facility] Administration Ondansetron HCl 4 mg 02/02/25 15:56 Ondansetron Inj 4 Mg/2 Ml Vial IV PUSH Q4H PRN Nausea Pregabalin 150 mg 02/02/25 22:00 02/04/25 05:32 Pregabalin (*Crx) 75 Mg Capsule PO 150 mg Q8HR [facility] Administration Tamsulosin HCl 0.8 mg 02/03/25 09:00 02/03/25 09:22 Tamsulosin Hcl 0.4 Mg Capsule PO 0.8 mg DAILY [facility] Administration Warfarin Sodium 6 mg 02/03/25 17:00 02/03/25 16:44 Warfarin (*Pbkc) 3 Mg Tablet PO 6 mg DAILY@1700 [facility] Administration Radiology Results: ITS Impressions Chest X-Ray 02/02/25 15:15 IMPRESSION: 1. Interstitial opacities in bilateral mid and lower lung zones with bronchial wall thickening most likely mild pulmonary edema although differential includes bronchitis/pneumonia. 2. Small left pleural effusion with associated left basilar atelectasis and/or pneumonia. Chest/Abdomen/Pelvis CT 02/02/25 15:20 IMPRESSION: 1. No acute fracture or acute vascular or visceral organ injury in the chest, abdomen or pelvis. 2. Cholelithiasis. 3. 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 Labs Labs: Laboratory Results - last 24 hr 02/03/25 02/03/25 02/03/25 11:44 16:38 21:24 PT INR APTT POC Capillary Glucose 105 206 H 169 H 02/04/25 02/04/25 05:43 07:48 PT 21.1 H INR 1.8 APTT 34.0 POC Capillary Glucose 144 H Quality VTE Prophylaxis VTE prophylaxis: pharmacologic ordered
[2025-02-04 08:58] LABS: Hematocrit 50.3 % (42.0-52.0); Hemoglobin 15.9 g/dL (14.0-18.0); Immature Granulocyte Percent A 3.4 % (0-0.5); Lymphocytes Absolute Auto 0.72 K/mm3 (0.9-3.2); Mean Corpuscular HGB Conc 31.6 g/dl (32-36); Mean Corpuscular Hemoglobin 27.2 pg (26-34); Mean Corpuscular Volume 86.0 fl (80-100); Nucleated Red Blood Cells Absolute Auto 0.020 K/mm3 (0.0-0.012); Nucleated Red Blood Cells Perc 0.3 % (0.0-0.2); Platelet Count Result 221 k/mm3 (150-375); Red Blood Count 5.85 M/mm3 (4.6-6.20); White Blood Count 6.4 K/mm3 (4.5-10.0)
[2025-02-04 09:13] LABS: Alanine Aminotransferase 17 U/L (6-50); Albumin Level 2.9 g/dL (3.5-5.1); Alkaline Phosphatase 85 U/L (38-126); Anion Gap 6 mmol/L (4-12); Aspartate Amino Transferase 29 U/L (17-59); Bilirubin,Total 1.0 mg/dL (0.2-1.3); Blood Urea Nitrogen 23 mg/dL (9-20); Calcium 8.5 mg/dL (8.4-10.2); Carbon Dioxide 25 mmol/L (22-30); Chloride 106 mmol/L (98-107); Estimated CRCL calculation 56 ml/min; Estimated Glomerular Filt Rate 46; Glucose 143 mg/dL (65-110); Potassium 4.5 mmol/L (3.4-5.0); Sodium 137 mmol/L (137-145); Total Protein 6.0 g/dL (6.3-8.2)
[2025-02-04] MEDS: FUROSEMIDE 20 MG TABLET BY MOUTH (09:42)
[2025-02-04] MEDS: METOPROLOL TARTRATE 12.5 MG TABLET PO ×2 (09:42→21:07)
[2025-02-04] MEDS: FLECAINIDE ACETATE 50 MG TABLET PO ×2 (09:42→21:07)
[2025-02-04] MEDS: BACLOFEN 10 MG TABLET PO ×3 (09:43→16:43)
[2025-02-04] MEDS: LORATADINE 10 MG TABLET PO (09:43)
[2025-02-04] MEDS: TAMSULOSIN HCL 0.4 MG CAPSULE 0.8 MG PO (09:43)
[2025-02-04] MEDS: DOXYCYCLINE HYCLATE 100 MG TABLET PO ×2 (09:43→21:09)
[2025-02-04] MEDS: SODIUM CHLORIDE 0.9% IV 1,000 ML 100 ML IV CONT (09:43)
[2025-02-04] MEDS: DOCUSATE SODIUM 100 MG CAPSULE PO ×2 (09:43→16:43)
[2025-02-04] MEDS: ATORVASTATIN 20 MG TABLET PO (09:43)
[2025-02-04] MEDS: INSULIN ASPART (*BKC) 100 UNITS/ML SUB-Q ×2 (12:32→21:04)
[2025-02-04 14:00] VITALS: BP 146/87; PULSE 57; RESP 18; TEMP 36.1; O2SAT 98
[2025-02-04] MEDS: WARFARIN (*PBKC) 3 MG TABLET 6 MG PO (16:43)
[2025-02-04] MEDS: INSULIN GLARGINE (*BKC) 100 UNITS/ML 32 UNITS SUB-Q (21:03)
[2025-02-04 21:07] VITALS: PULSE 65
[2025-02-04 22:00] VITALS: BP 135/63; PULSE 63; RESP 18; TEMP 35.9; O2SAT 95
[2025-02-04 22:10] VITALS: O2SAT 95
[2025-02-05] MEDS: HYDROcodone/acetaminophen (*CRX) 5-325 MG TABLET 1 TAB PO ×5 (01:00→20:41)
[2025-02-05] MEDS: SODIUM CHLORIDE 0.9% IV 1,000 ML 100 ML IV CONT ×2 (03:07→22:01)
[2025-02-05 06:00] VITALS: BP 131/61; PULSE 64; RESP 18; TEMP 36.1; O2SAT 97
[2025-02-05] MEDS: LEVOTHYROXINE SODIUM 50 MCG TABLET PO (06:14)
[2025-02-05] MEDS: PREGABALIN (*CRX) 75 MG CAPSULE 150 MG PO ×3 (06:15→21:16)
[2025-02-05 06:27] LABS: Hematocrit 50.4 % (42.0-52.0); Hemoglobin 15.9 g/dL (14.0-18.0); Immature Granulocyte Percent A 3.7 % (0-0.5); Lymphocytes Absolute Auto 0.81 K/mm3 (0.9-3.2); Mean Corpuscular HGB Conc 31.5 g/dl (32-36); Mean Corpuscular Hemoglobin 27.1 pg (26-34); Mean Corpuscular Volume 86.0 fl (80-100); Nucleated Red Blood Cells Absolute Auto 0.000 K/mm3 (0.0-0.012); Nucleated Red Blood Cells Perc 0.0 % (0.0-0.2); Platelet Count Result 210 k/mm3 (150-375); Red Blood Count 5.86 M/mm3 (4.6-6.20); White Blood Count 4.9 K/mm3 (4.5-10.0)
[2025-02-05 06:38] LABS: Alanine Aminotransferase 19 U/L (6-50); Albumin Level 2.8 g/dL (3.5-5.1); Alkaline Phosphatase 83 U/L (38-126); Anion Gap 4 mmol/L (4-12); Aspartate Amino Transferase 23 U/L (17-59); Bilirubin,Total 0.3 mg/dL (0.2-1.3); Blood Urea Nitrogen 19 mg/dL (9-20); Calcium 8.4 mg/dL (8.4-10.2); Carbon Dioxide 25 mmol/L (22-30); Chloride 110 mmol/L (98-107); Estimated CRCL calculation 73 ml/min; Estimated Glomerular Filt Rate > 60; Glucose 125 mg/dL (65-110); Potassium 3.9 mmol/L (3.4-5.0); Sodium 139 mmol/L (137-145); Total Protein 5.9 g/dL (6.3-8.2)
[2025-02-05 06:48] LABS: INR 2.1; Prothrombin Time 23.7 Seconds (11.1-14.7)
[2025-02-05 06:49] LABS: Partial Thromboplastin Time 35.8 Seconds (22.3-36.8)
--- NOTE | 2025-02-05 07:47 | P.PNIM_ITS ---
Progress Note: A&P Assessment and Plan (1) Pneumonia: Code(s): J18.9 - Pneumonia, unspecified organism Status: Acute Assessment and Plan: * CXR: Interstitial opacities in bilateral mid and lower lung zones with bronchial wall thickening most likely mild pulmonary edema although differential includes bronchitis/pneumonia. Small left pleural effusion with associated left basilar atelectasis and/or pneumonia. * Risk Factors: none * Complicating Factors: none * started on CAP tx: azithromycin & ceftriaxone * Viral PCR: negative for Flu/COVID/RSV * Consider ordering legionella, mycoplasma and pneumococcal * supportive treatment * trend labs * Monitor vital signs, I&Os, neuro status and patient is a fall risk * Follow WBC, serum electrolytes, temperature curves and cultures * Gentle IV fluid resuscitation * 02/05: Pt continues to improve, physical exam benign (2) RODRIGUEZ (acute kidney injury): Code(s): N17.9 - Acute kidney failure, unspecified Status: Acute Assessment and Plan: * In ED: Creatinine 1.26, GFR: 55 * Trend renal function * Trend electrolytes, correct as needed * Add CK, urine sodium, protein/creatinine, urea * 02/05: Cr 1.09 * Resolved (3) Weakness: Code(s): R53.1 - Weakness Status: Acute Assessment and Plan: * With fall * Traumatic workup negative for acute injury * PT/OT recommends further rehab - SNF/HH * Pt initially declined and endorsed wanting to be d/c home * Convinced to try SNF - will work with placement * Likely d/c within next 24-48 hours (4) Acute UTI: Code(s): N39.0 - Urinary tract infection, site not specified Status: Acute Assessment and Plan: * UA: 51-100 WBC, 6-10 RBC, 1+ Leuk esterase * UC negative for growth * Ruled out (5) Atrial fibrillation: Code(s): I48.91 - Unspecified atrial fibrillation Status: Acute Assessment and Plan: * EKG on 02/02: Sinus Lobo w/ 1 degree AV block (chronic) * Patient on warfarin and metoprolol * Stable (6) Chronic deep vein thrombosis (DVT): Code(s): I82.509 - Chronic embolism and thrombosis of unspecified deep veins of unspecified lower extremity Status: Acute Assessment and Plan: * INR 2.8 * On warfarin * Daily PTT INR * Patient does not know which home dose he is * Will order 6 mg adjust as needed of Warfarin (7) Diabetes mellitus with neuropathy: Qualifiers: Diabetes mellitus alf insulin use: with alf use Diabetes mellitus type: type 2 Qualified Code(s): E11.40 - Type 2 diabetes mellitus with diabetic neuropathy, unspecified; Z79.4 - snf (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 Code(s): E11.40 - Type 2 diabetes mellitus with diabetic neuropathy, unspecified Status: Acute Assessment and Plan: * Diabetic diet * Medium dose SSI * Patient states that he hypoglycemic overnight and D's will reduce home Lantus from 44 units to 32 (8) Hypertension: Qualifiers: Hypertension type: essential hypertension Qualified Code(s): I10 - Essential (primary) hypertension Code(s): I10 - Essential (primary) hypertension Status: Chronic Assessment and Plan: * Continue Lasix (9) Hyperlipidemia: Qualifiers: Hyperlipidemia type: mixed hyperlipidemia Qualified Code(s): E78.2 - Mixed hyperlipidemia Code(s): E78.5 - Hyperlipidemia, unspecified Status: Acute Assessment and Plan: * Continue home statin Subjective Date/time seen: 02/05/25 07:47 Interval history: 84-year-old male past medical history of COPD, diabetes, history of PE, BPH, blind presents to the hospital with increased weakness and a fall. 02/05/2025 Patient sitting comfortably at beside at time of exam. Urine culture negative for growth. Remains afebrile without leukocytosis. Pending PT/OT evals for possible SNF placement. Otherwise pt has no complaints, no CP, SOB, n/v, abd pain. Review of Systems Review of Systems: 12 systems were reviewed and are negativ e except for as per HPI. Exam Narrative: General: well appearing, appears stated age. HEENT: normocephalic, atraumatic. Mucous membranes moist. EOMI, PERRLA, bilateral sclera anicteric, no conjunctival injection. Neck supple without JVD, lymphadenopathy, or bruit. Respiratory: clear to ascultation bilaterally. No rales/rhonic/wheezes. Cardiovascular: Regular rate and rhythm, normal S1-S2 upon ascultation. No murmurs, rubs, or clicks. PMI is nondisplaced, capillary refill less than 3 second. Abdomen: Obese Soft, round, no pulsatile masses, nondistended and nontender. No rebound, no guarding. No CVA tenderness, no hepatosplenomegaly. Bowel sounds present to all four quadrants. No high pitch or tinkling sounds, resonant to percussion. Extremities: No cyanosis, clubbing, Pulses are palpable 2/2. Active ROM to all four extremities. 2+ lower extremity edema Neuro: Alert and orientated x 4. PERRLA. Cranial nerves 2-12 intact without focal deficit. Skin: Warm, dry, and intact, without rash, erythema, or lesion. Psych: pleasant, cooperative, normal speech, normal affect, no hallucinations, no dysarthia Objective Data Vital Signs Vital Signs: Vital Signs - 24 hr 02/04/25 14:00 02/04/25 21:07 02/04/25 21:07 Temperature 96.9 F L Pulse Rate 57 L 65 65 Respiratory Rate 18 Blood Pressure 146/87 H Pulse Oximetry 98 Oxygen Delivery Fraction of Inspired Oxygen 02/04/25 21:27 02/04/25 22:00 02/04/25 22:10 Temperature 96.7 F L Pulse Rate 63 Respiratory Rate 18 Blood Pressure 135/63 Pulse Oximetry 95 95 Oxygen Delivery Room Air Room Air Fraction of Inspired Oxygen 21 02/05/25 06:00 Temperature 96.9 F L Pulse Rate 64 Respiratory Rate 18 Blood Pressure 131/61 Pulse Oximetry 97 Oxygen Delivery Fraction of Inspired Oxygen Intake/Output Intake/Output: Intake & Output 02/02/25 02/03/25 02/04/25 02/05/25 23:59 23:59 23:59 23:59 Intake Total 1050 1550 2180 655 Output Total 400 1000 1000 800 Balance 333 140 0950 -145 Meds/Results Medications: Active Medications Generic Name Dose Route Start Last Admin Trade Name Freq PRN Reason Stop Dose Admin Acetaminophen 650 mg 02/02/25 15:56 Acetaminophen 325 Mg Tablet PO Q4H PRN Mild Pain (1-3) or Fever Hydrocodone Bitart/Acetaminophen 1 tab 02/02/25 16:46 02/05/25 06:14 Hydrocodone/Acetaminophen (*Crx) 5-325 Mg Tablet PO 1 tab Q4H PRN Administration Moderate Pain (4-6) Albuterol 2 puff 02/02/25 18:59 02/03/25 20:20 Albuterol Sulfate (*Sp) Aerosol 1 Puff INHALATION 2 puff Q2-4H PRN Administration shortness of breath or wheezing Atorvastatin Calcium 20 mg 02/03/25 09:00 02/04/25 09:43 Atorvastatin 20 Mg Tablet PO 20 mg DAILY AUDELIA Administration Baclofen 10 mg 02/02/25 19:15 02/04/25 16:43 Baclofen 10 Mg Tablet PO 10 mg TID AUDELIA Administration Dextrose 12.5 gm 02/02/25 16:48 Dextrose 50% 25 Gm/50 Ml Syringe IV PUSH PRN PRN Hypoglycemia Protocol Docusate Sodium 100 mg 02/03/25 09:00 02/04/25 16:43 Docusate Sodium 100 Mg Capsule PO 100 mg BID AUDELIA Administration Doxycycline Hyclate 100 mg 02/02/25 23:00 02/04/25 21:09 Doxycycline Hyclate 100 Mg Tablet PO 100 mg Q12HR AUDELIA Administration Flecainide Acetate 50 mg 02/03/25 09:00 02/04/25 21:07 Flecainide Acetate 50 Mg Tablet PO 50 mg Q12HR AUDELIA Administration Fluticasone/Umeclidinium/Vilanterol 1 puff 02/03/25 09:00 02/04/25 07:46 Fluticasone/Umeclidin/Vilanter 200-62.5-25 Mcg Ellipta INHALATION 1 puff DAILY AUDELIA Administration Furosemide 20 mg 02/03/25 09:00 02/04/25 09:42 Furosemide 20 Mg Tablet BY MOUTH 20 mg DAILY AUDELIA Administration Glucagon 1 mg 02/02/25 16:48 Glucagon For Inj 1 Mg Vial IM PRN PRN Hypoglycemia Protocol Glucose 15 gm 02/02/25 16:48 Glucose Oral Gel 15 Gm Of Glucse In 37.5 Gm Tube PO PRN PRN Hypoglycemia Protocol Ceftriaxone Sodium 1 gm in 50 mls @ 100 mls/hr 02/03/25 16:00 02/04/25 17:36 Rocephin 1 Gm/Ns 50 Ml IVPB 100 mls/hr Q24H AUDELIA Administration Dextrose 1,000 mls @ 100 mls/hr 02/02/25 16:48 Dextrose 5% 1,000 Ml IVPB PRN PRN Hypoglycemia Protocol Sodium Chloride 1,000 mls @ 100 mls/hr 02/04/25 09:20 02/05/25 03:07 Normal Saline Iv IV CONT 100 mls/hr .Q10H AUDELIA Administration Insulin Aspart 1 - 3 units 02/02/25 21:00 02/04/25 21:04 Insulin Aspart (*Bkc) 100 Units/Ml SUB-Q 1 units HS AUDELIA Administration Protocol Insulin Aspart 3 - 6 units 02/02/25 17:00 02/04/25 17:26 Insulin Aspart (*Bkc) 100 Units/Ml SUB-Q Not Given TIDWM [facility] Protocol Insulin Glargine 32 units 02/02/25 22:55 02/04/25 21:03 Insulin Glargine (*Bkc) 100 Units/Ml 0.2 units/kg (32 units) 32 units SUB-Q Administration [facility] Levothyroxine Sodium 50 mcg 02/03/25 06:30 02/05/25 06:14 Levothyroxine Sodium 50 Mcg Tablet PO 50 mcg DAILY@0630 [facility] Administration Loratadine 10 mg 02/03/25 09:00 02/04/25 09:43 Loratadine 10 Mg Tablet PO 10 mg DAILY [facility] Administration Metoprolol Tartrate 12.5 mg 02/02/25 21:00 02/04/25 21:07 Metoprolol Tartrate 12.5 Mg Tablet PO 12.5 mg Q12HR [facility] Administration Ondansetron HCl 4 mg 02/02/25 15:56 Ondansetron Inj 4 Mg/2 Ml Vial IV PUSH Q4H PRN Nausea Pregabalin 150 mg 02/02/25 22:00 02/05/25 06:15 Pregabalin (*Crx) 75 Mg Capsule PO 150 mg Q8HR AUDELIA Administration Tamsulosin HCl 0.8 mg 02/03/25 09:00 02/04/25 09:43 Tamsulosin Hcl 0.4 Mg Capsule PO 0.8 mg DAILY AUDELIA Administration Warfarin Sodium 6 mg 02/03/25 17:00 02/04/25 16:43 Warfarin (*Pbkc) 3 Mg Tablet PO 6 mg DAILY@1700 AUDELIA Administration Radiology Results: ITS Impressions Chest X-Ray 02/02/25 15:15 IMPRESSION: 1. Interstitial opacities in bilateral mid and lower lung zones with bronchial wall thickening most likely mild pulmonary edema although differential includes bronchitis/pneumonia. 2. Small left pleural effusion with associated left basilar atelectasis and/or pneumonia. Chest/Abdomen/Pelvis CT 02/02/25 15:20 IMPRESSION: 1. No acute fracture or acute vascular or visceral organ injury in the chest, abdomen or pelvis. 2. Cholelithiasis. 3. 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 Venous Doppler Study 02/04/25 09:09 IMPRESSION: 1. No deep venous thrombosis. Labs Labs: Laboratory Results - last 24 hr 02/04/25 02/04/25 02/04/25 05:37 07:48 11:42 WBC 6.4 RBC 5.85 Hgb 15.9 Hct 50.3 MCV 86.0 MCH 27.2 MCHC 31.6 L RDW 20.1 H Plt Count 221 MPV 10.7 H Immature Gran % (Auto) 3.4 H Neut % (Auto) 69.8 Lymph % (Auto) 11.[address] [place] % (Auto) 10.1 H Eos % (Auto) 4.4 Baso % (Auto) 1.1 Lymph # (Auto) 0.[address] [place] # (Auto) 0.7 H Eos # (Auto) 0.3 Baso # (Auto) 0.1 Abs Immat Gran (auto) 0.22 H Absolute Neuts (auto) 4.5 Absolute Nucleated RBC 0.020 H Nucleated RBC % 0.3 H PT INR APTT Sodium 137 Potassium 4.5 Chloride 106 Carbon Dioxide 25 Anion Gap 6 BUN 23 H Creatinine 1.46 H Estim Creat Clear Calc 56 Estimated GFR 46 L Glucose 143 H POC Capillary Glucose 144 H 215 H Calcium 8.5 Total Bilirubin 1.0 AST 29 ALT 17 Alkaline Phosphatase 85 Total Protein 6.0 L Albumin 2.9 L 02/04/25 02/04/25 02/05/25 17:00 21:02 06:12 WBC 4.9 RBC 5.86 Hgb 15.9 Hct 50.4 MCV 86.0 MCH 27.1 MCHC 31.5 L RDW 19.9 H Plt Count 210 MPV 11.0 H Immature Gran % (Auto) 3.7 H Neut % (Auto) 58.5 Lymph % (Auto) 16.[address] [place] % (Auto) 13.6 H Eos % (Auto) 6.4 H Baso % (Auto) 1.2 Lymph # (Auto) 0.[address] [place] # (Auto) 0.7 H Eos # (Auto) 0.3 Baso # (Auto) 0.1 Abs Immat Gran (auto) 0.18 H Absolute Neuts (auto) 2.9 Absolute Nucleated RBC 0.000 Nucleated RBC % 0.0 PT 23.7 H INR 2.1 APTT 35.8 Sodium 139 Potassium 3.9 Chloride 110 H Carbon Dioxide 25 Anion Gap 4 BUN 19 Creatinine 1.09 Estim Creat Clear Calc 73 Estimated GFR > 60 Glucose 125 H POC Capillary Glucose 146 H 218 H Calcium 8.4 Total Bilirubin 0.3 AST 23 ALT 19 Alkaline Phosphatase 83 Total Protein 5.9 L Albumin 2.8 L Quality VTE Prophylaxis VTE prophylaxis: pharmacologic ordered
[2025-02-05] MEDS: INSULIN ASPART (*BKC) 100 UNITS/ML SUB-Q (08:59)
[2025-02-05] MEDS: ATORVASTATIN 20 MG TABLET PO (09:00)
[2025-02-05] MEDS: METOPROLOL TARTRATE 12.5 MG TABLET PO ×2 (09:00→20:39)
[2025-02-05] MEDS: LORATADINE 10 MG TABLET PO (09:00)
[2025-02-05] MEDS: FLECAINIDE ACETATE 50 MG TABLET PO ×2 (09:00→20:36)
[2025-02-05] MEDS: BACLOFEN 10 MG TABLET PO ×3 (09:00→16:31)
[2025-02-05] MEDS: DOXYCYCLINE HYCLATE 100 MG TABLET PO ×2 (09:00→20:36)
[2025-02-05] MEDS: TAMSULOSIN HCL 0.4 MG CAPSULE 0.8 MG PO (09:00)
[2025-02-05] MEDS: FUROSEMIDE 20 MG TABLET BY MOUTH (09:00)
[2025-02-05] MEDS: DOCUSATE SODIUM 100 MG CAPSULE PO ×2 (09:00→16:31)
[2025-02-05 14:00] VITALS: BP 137/58; PULSE 54; RESP 18; TEMP 36.1; O2SAT 95
[2025-02-05] MEDS: WARFARIN (*PBKC) 3 MG TABLET 6 MG PO (16:31)
[2025-02-05 20:36] VITALS: PULSE 55
[2025-02-05 20:39] VITALS: PULSE 55
[2025-02-05] MEDS: FLUTICASONE PROPIONATE 0.05% NA SPR 16 GM BTL (*BKC) 1 SPRAY NASAL (20:40)
[2025-02-05] MEDS: INSULIN GLARGINE (*BKC) 100 UNITS/ML 32 UNITS SUB-Q (20:41)
[2025-02-05 22:00] VITALS: BP 115/39; PULSE 55; RESP 20; TEMP 36.2; O2SAT 96
[2025-02-06] MEDS: LEVOTHYROXINE SODIUM 50 MCG TABLET PO (05:36)
[2025-02-06] MEDS: PREGABALIN (*CRX) 75 MG CAPSULE 150 MG PO ×2 (05:36→13:39)
[2025-02-06 06:00] VITALS: BP 136/60; PULSE 51; RESP 16; TEMP 36.5; O2SAT 96
[2025-02-06 06:19] LABS: Hematocrit 50.6 % (42.0-52.0); Hemoglobin 16.0 g/dL (14.0-18.0); Immature Granulocyte Percent A 2.7 % (0-0.5); Lymphocytes Absolute Auto 0.90 K/mm3 (0.9-3.2); Mean Corpuscular HGB Conc 31.6 g/dl (32-36); Mean Corpuscular Hemoglobin 27.2 pg (26-34); Mean Corpuscular Volume 86.1 fl (80-100); Nucleated Red Blood Cells Absolute Auto 0.000 K/mm3 (0.0-0.012); Nucleated Red Blood Cells Perc 0.0 % (0.0-0.2); Platelet Count Result 220 k/mm3 (150-375); Red Blood Count 5.88 M/mm3 (4.6-6.20); White Blood Count 4.1 K/mm3 (4.5-10.0)
[2025-02-06 06:24] LABS: INR 2.4; Prothrombin Time 26.0 Seconds (11.1-14.7)
[2025-02-06 06:25] LABS: Partial Thromboplastin Time 33.9 Seconds (22.3-36.8)
[2025-02-06 06:31] LABS: Alanine Aminotransferase 20 U/L (6-50); Albumin Level 2.8 g/dL (3.5-5.1); Alkaline Phosphatase 79 U/L (38-126); Anion Gap 4 mmol/L (4-12); Aspartate Amino Transferase 25 U/L (17-59); Bilirubin,Total 0.4 mg/dL (0.2-1.3); Blood Urea Nitrogen 15 mg/dL (9-20); Calcium 8.3 mg/dL (8.4-10.2); Carbon Dioxide 26 mmol/L (22-30); Chloride 110 mmol/L (98-107); Estimated CRCL calculation 85 ml/min; Estimated Glomerular Filt Rate > 60; Glucose 119 mg/dL (65-110); Potassium 3.7 mmol/L (3.4-5.0); Sodium 140 mmol/L (137-145); Total Protein 5.8 g/dL (6.3-8.2)
[2025-02-06] MEDS: TAMSULOSIN HCL 0.4 MG CAPSULE 0.8 MG PO (09:29)
[2025-02-06] MEDS: DOCUSATE SODIUM 100 MG CAPSULE PO (09:30)
[2025-02-06] MEDS: DOXYCYCLINE HYCLATE 100 MG TABLET PO (09:30)
[2025-02-06] MEDS: BACLOFEN 10 MG TABLET PO ×2 (09:30→13:39)
[2025-02-06] MEDS: ATORVASTATIN 20 MG TABLET PO (09:30)
[2025-02-06] MEDS: FUROSEMIDE 20 MG TABLET BY MOUTH (09:30)
[2025-02-06] MEDS: METOPROLOL TARTRATE 12.5 MG TABLET PO (09:30)
[2025-02-06] MEDS: FLECAINIDE ACETATE 50 MG TABLET PO (09:30)
[2025-02-06] MEDS: LORATADINE 10 MG TABLET PO (09:30)
[2025-02-06] MEDS: FLUTICASONE PROPIONATE 0.05% NA SPR 16 GM BTL (*BKC) 1 SPRAY NASAL (09:31)
[2025-02-06] MEDS: SODIUM CHLORIDE 0.9% IV 1,000 ML 100 ML IV CONT (09:41)
[2025-02-06] MEDS: HYDROcodone/acetaminophen (*CRX) 5-325 MG TABLET 1 TAB PO (11:13)
--- NOTE | 2025-02-06 12:35 | P.DS_ITS ---
DS: Admitting Diagnosis Discharge Date 02/06/2025 Admitting Diagnosis Acute UTI, Pneumonia DS: Discharge Diagnosis Discharge Diagnosis (1) Pneumonia: Code(s): J18.9 - Pneumonia, unspecified organism Status: Acute (2) RODRIGUEZ (acute kidney injury): Code(s): N17.9 - Acute kidney failure, unspecified Status: Acute (3) Weakness: Code(s): R53.1 - Weakness Status: Acute (4) Acute UTI: Code(s): N39.0 - Urinary tract infection, site not specified Status: Acute (5) Atrial fibrillation: Code(s): I48.91 - Unspecified atrial fibrillation Status: Acute (6) Chronic deep vein thrombosis (DVT): Code(s): I82.509 - Chronic embolism and thrombosis of unspecified deep veins of unspecified lower extremity Status: Acute (7) Diabetes mellitus with neuropathy: Qualifiers: 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 Diabetes mellitus type: type 2 Qualified Code(s): E11.40 - Type 2 diabetes mellitus with diabetic neuropathy, unspecified; Z79.4 - half-way (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 Code(s): E11.40 - Type 2 diabetes mellitus with diabetic neuropathy, unspecified Status: Acute (8) Hypertension: Qualifiers: Hypertension type: essential hypertension Qualified Code(s): I10 - Essential (primary) hypertension Code(s): I10 - Essential (primary) hypertension Status: Chronic (9) Hyperlipidemia: Qualifiers: Hyperlipidemia type: mixed hyperlipidemia Qualified Code(s): E78.2 - Mixed hyperlipidemia Code(s): E78.5 - Hyperlipidemia, unspecified Status: Acute DS: Summary Hospital Course Reason for hospitalization: Weakness and a fall Hospital Course: 84-year-old male past medical history of COPD, diabetes, history of PE, BPH, blind presents to the hospital with increased weakness and a fall. Patient states that he has been feeling weak over the last 2 days or so. He was using his walker to close the ramp's edge and fell. Per the patient he denies patient is walker off around. He states that he fell in the kitchen and when he went to stand up he had his head on the counter. For all other questions he says as my daughter. Patient states that his blood sugar goes hypoglycemic at night about 50's, will reduce home Lantus. CBC shows no acute findings, INR 2.8, ABG pH 7.4, pCO2 39, PO2 64, troponin negative, UA shows dark urine with 1+ leukocyte esterase, negative for nitrates, 51-100 wbc's. Influenza a B RSV and COVID negative. CTA shows cholelithiasis and bladder diverticuli. Chest x-ray shows interstitial opacities in bilateral mid and lower lung zones with bronchial wall thickening most likely mild pulmonary edema although differential includes bronchitis/pneumonia and small left pleural effusion with associated left basilar atelectasis and/or pneumonia. Patient was admitted for pneumonia, UTI, and RODRIGUEZ. Weakness likely secondary to underlying infection/RODRIGUEZ. Urine cultures were obtained and were negative for any growth, UTI it was then ruled out. Patient continued to be treated for pneumonia throughout hospitalization. He was initially placed on IV antibiotics and then transitioned to doxycycline and Augmentin upon discharge. Throughout hospitalization, blood work remained reassuring. RODRIGUEZ resolved on 02/05 after giving gentle IV fluid hydration. Upon admission, patient's Lantus was decreased to 44 units 32 units to address overnight hypoglycemic episodes. Hypertension and hyperlipidemia were addressed by continuing at home medications. Patient remained afebrile without leukocytosis throughout hospitalization. Physical exam also remained reassuring. Patient worked with PT/OT and they recommended continued rehab care with either home health or SNF. On 02/06, patient was hemodynamically stable for discharge and has been accepted at [facility]. Patient is amenable for this plan. Plan for discharge at this time. Status at Discharge Functional status at discharge: uses cane/walker Overall status at discharge: patient is progressing back to baseline Time Spent with Patient Time attestation: Total time spent providing and/or coordinating discharge services:51 Exam Narrative: General: well appearing, appears stated age. HEENT: normocephalic, atraumatic. Mucous membranes moist. EOMI, PERRLA, bilateral sclera anicteric, no conjunctival injection. Neck supple without JVD, lymphadenopathy, or bruit. Respiratory: clear to ascultation bilaterally. No rales/rhonic/wheezes. Cardiovascular: Regular rate and rhythm, normal S1-S2 upon ascultation. No murmurs, rubs, or clicks. PMI is nondisplaced, capillary refill less than 3 second. Abdomen: Obese Soft, round, no pulsatile masses, nondistended and nontender. No rebound, no guarding. No CVA tenderness, no hepatosplenomegaly. Bowel sounds present to all four quadrants. No high pitch or tinkling sounds, resonant to percussion. Extremities: No cyanosis, clubbing, Pulses are palpable 2/2. Active ROM to all four extremities. 2+ lower extremity edema Neuro: Alert and orientated x 4. PERRLA. Cranial nerves 2-12 intact without focal deficit. Skin: Warm, dry, and intact, without rash, erythema, or lesion. Psych: pleasant, cooperative, normal speech, normal affect, no hallucinations, no dysarthia DS: Data Data Completed and Pending Labs on day of discharge: Labs from last 24 hours 02/06/25 02/06/25 02/06/25 11:35 07:41 06:02 WBC 4.1 L RBC 5.88 Hgb 16.0 Hct 50.6 MCV 86.1 MCH 27.2 MCHC 31.6 L RDW 19.6 H Plt Count 220 MPV 10.8 H Immature Gran % (Auto) 2.7 H Neut % (Auto) 51.6 Lymph % (Auto) 21.8 [place] % (Auto) 16.7 H Eos % (Auto) 6.5 H Baso % (Auto) 0.7 Lymph # (Auto) 0.90 [place] # (Auto) 0.7 H Eos # (Auto) 0.3 Baso # (Auto) 0.0 Abs Immat Gran (auto) 0.11 H Absolute Neuts (auto) 2.1 Absolute Nucleated RBC 0.000 Nucleated RBC % 0.0 PT 26.0 H INR 2.4 APTT 33.9 Sodium 140 Potassium 3.7 Chloride 110 H Carbon Dioxide 26 Anion Gap 4 BUN 15 Creatinine 0.93 Estim Creat Clear Calc 85 Estimated GFR > 60 Glucose 119 H POC Capillary Glucose 175 H 160 H Calcium 8.3 L Total Bilirubin 0.4 AST 25 ALT 20 Alkaline Phosphatase 79 Total Protein 5.8 L Albumin 2.8 L 02/05/25 02/05/25 20:35 16:30 WBC RBC Hgb Hct MCV MCH MCHC RDW Plt Count MPV Immature Gran % (Auto) Neut % (Auto) Lymph % (Auto) [place] % (Auto) Eos % (Auto) Baso % (Auto) Lymph # (Auto) [place] # (Auto) Eos # (Auto) Baso # (Auto) Abs Immat Gran (auto) Absolute Neuts (auto) Absolute Nucleated RBC Nucleated RBC % PT INR APTT Sodium Potassium Chloride Carbon Dioxide Anion Gap BUN Creatinine Estim Creat Clear Calc Estimated GFR Glucose POC Capillary Glucose 191 H 166 H Calcium Total Bilirubin AST ALT Alkaline Phosphatase Total Protein Albumin Discharge Plan Discharge Attending physician on discharge: Ayesha Stewart Consulting providers: Saúl Hall Discharging Clinician: Saúl Hall Anticipated Discharge Date/Time: 02/06/25 12:22 Patient Disposition: Hospital Swing Bed Activity: as tolerated Diet: as tolerated Patient Instructions: Antibiotic Form Patient Language: Samoan Stand Alone Forms: General Discharge Information Follow-up/Referrals: Liset Haynes MD [Primary Care Provider] - Discharge Medications: New doxycycline hyclate 100 mg capsule 100 mg PO DAILY Qty: 2 0RF amoxicillin-pot clavulanate 875-125 mg tablet 1 tablet PO Q12H Qty: 1 0RF Continued acetaminophen [Tylenol Arthritis Pain] 650 mg tablet extended release 650 mg PO Q12H PRN (Reason: pain 1-4) flecainide 50 mg Tablet 50 mg PO Q12H warfarin 6 mg tablet 6 mg PO DAILY Qty: 30 0RF Protocol: Dose Management Condition: Thursday Dose/Route: 6 mg Instruction: 1 x 6 mg tablet Condition: Thursday Dose/Route: 6 mg Instruction: 1 x 6 mg tablet Condition: Thursday Dose/Route: 6 mg Instruction: 1 x 6 mg tablet Condition: Thursday Dose/Route: 6 mg Instruction: 1 x 6 mg tablet Condition: Dose/Route: 6 mg Instruction: 1 x 6 mg tablet Condition: Thursday Dose/Route: 6 mg Instruction: 1 x 6 mg tablet Condition: Thursday Dose/Route: 6 mg Instruction: 1 x 6 mg tablet Protocol Text: Adjustment Start Date: Thursday01/27/25 INR Value: 2.6 INR Date: 01/27/25 Recheck Date: 02/03/25 triamcinolone acetonide 0.1 % cream 1 applic topical BID Qty: 80 0RF Adult 50 Plus Probiotic 4 billion cell capsule 4,000 mmu cells PO DAILY Rx Instructions: administer with a meal (DME) wheeled walker XL See Rx Instructions .Route .MEDSUPPLY Qty: 1 0RF Rx Instructions: As directed (DME) knee high medium compression stockings See Rx Instructions .Route .MEDSUPPLY Qty: 1 0RF Rx Instructions: As directed daily for leg edema (DME) diabetic shoes See Rx Instructions .Route .MEDSUPPLY Qty: 1 0RF Rx Instructions: As directed (DME) FreeStyle Santiago 3 Plus Sensor Device See Rx Instructions .Route Qty: 2 12RF Rx Instructions: As directed QID lidocaine [Salonpas (lidocaine)] 4 % adhesive patch,medicated 1 patch topical DAILY PRN (Reason: pain) Qty: 30 6RF Rx Instructions: Apply for 12 hours on and 12 hours off. loratadine 10 mg Capsule 10 mg PO DAILY docusate sodium 50 mg Capsule 50 mg PO BID cholecalciferol (vitamin D3) 50 mcg (2,000 unit) Capsule 50 mcg PO DAILY alpha lipoic acid 200 mg Capsule 200 mg PO DAILY (DME) NovoFine Plus 32 gauge x 1/6 needle See Rx Instructions .Route Qty: 100 5RF Rx Instructions: As directed TID to check glucose. (DME) OneTouch Ultra Test Strip See Rx Instructions .ROUTE .COMPLEX Qty: 100 3RF Dose Instruction: USE TO TEST BLOOD SUGAR THREE TIMES DAILY Rx Instructions: USE TO TEST BLOOD SUGAR THREE TIMES DAILY insulin glargine 100 unit/mL solution 44 unit SUBCUT HS Qty: 20 12RF (DME) lancets [OneTouch Delica Plus Lancet] 33 gauge misc See Rx Instructions .Route Qty: 300 12RF Rx Instructions: As directed TID (DME) compression stockings knee high 15-20mmHG See Rx Instructions .Route .MEDSUPPLY Qty: 1 0RF Rx Instructions: As directed daily (DME) wheeled walker See Rx Instructions .Route .MEDSUPPLY Qty: 1 0RF Rx Instructions: As directed daily (DME) FreeStyle [place] 3 [place] Misc See Rx Instructions .Route Qty: 2 12RF Rx Instructions: As directed QID furosemide 20 mg tablet See Rx Instructions .ROUTE .COMPLEX Qty: 90 1RF Dose Instruction: TAKE 1 TABLET BY MOUTH EVERY DAY FOR 30 DAYS Rx Instructions: TAKE 1 TABLET BY MOUTH EVERY DAY FOR 30 DAYS metoprolol tartrate 25 mg tablet 12.5 mg PO BID Qty: 90 3RF tamsulosin 0.4 mg capsule 0.8 mg PO DAILY Qty: 180 2RF pregabalin 150 mg capsule 150 mg PO TID Qty: 270 1RF warfarin 1 mg tablet See Rx Instructions PO .COMPLEX Qty: 180 1RF Protocol: Dose Management Condition: Thursday Dose/Route: 6 mg Instruction: 1 x 6 mg tablet Condition: Thursday Dose/Route: 6 mg Instruction: 1 x 6 mg tablet Condition: Thursday Dose/Route: 6 mg Instruction: 1 x 6 mg tablet Condition: Thursday Dose/Route: 6 mg Instruction: 1 x 6 mg tablet Condition: Dose/Route: 6 mg Instruction: 1 x 6 mg tablet Condition: Thursday Dose/Route: 6 mg Instruction: 1 x 6 mg tablet Condition: Thursday Dose/Route: 6 mg Instruction: 1 x 6 mg tablet Protocol Text: Adjustment Start Date: Thursday01/27/25 INR Value: 2.6 INR Date: 01/27/25 Recheck Date: 02/03/25 Rx Instructions: Take 1-2 tab orally; to make 6mg and 7mg respectively Trelegy Ellipta 200-62.5-25 mcg blister with device 1 inh inhalation DAILY Qty: 60 5RF triamcinolone acetonide 0.1 % cream 1 applic topical BID Qty: 80 1RF Rx Instructions: bilateral feet levothyroxine 50 mcg tablet 50 mcg PO DAILY Qty: 90 2RF atorvastatin 20 mg tablet 20 mg PO DAILY Qty: 90 3RF Fiasp FlexTouch U-100 Insulin 100 unit/mL (3 mL) insulin pen See Rx Instructions subcut .COMPLEX Qty: 15 12RF Rx Instructions: Inject 8-10 units subcutaneously TID AC; dapagliflozin propanediol [Farxiga] 10 mg tablet 10 mg PO DAILY Qty: 90 1RF amoxicillin-pot clavulanate [Augmentin] 500-125 mg tablet 1 tablet PO DAILY Qty: 60 1RF Rx Instructions: permanent azelastine 137 mcg (0.1 %) spray,non-aerosol 137 mcg intranasal Q12H Qty: 30 2RF Rx Instructions: 2 spray administer into each nostril. 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 Freestyle Santiago See Rx Instructions .Route .MEDSUPPLY Qty: 8 12RF Rx Instructions: As directed weekly diclofenac sodium 1 % gel 4 g topical QID Qty: 300 3RF Rx Instructions: apply to single knee, ankle, foot; for foot includes sole/toes/top of foot warfarin 5 mg tablet 5 mg PO DAILY Qty: 90 2RF Protocol: Dose Management Condition: Thursday Dose/Route: 6 mg Instruction: 1 x 6 mg tablet Condition: Thursday Dose/Route: 6 mg Instruction: 1 x 6 mg tablet Condition: Thursday Dose/Route: 6 mg Instruction: 1 x 6 mg tablet Condition: Thursday Dose/Route: 6 mg Instruction: 1 x 6 mg tablet Condition: Dose/Route: 6 mg Instruction: 1 x 6 mg tablet Condition: Thursday Dose/Route: 6 mg Instruction: 1 x 6 mg tablet Condition: Thursday Dose/Route: 6 mg Instruction: 1 x 6 mg tablet Protocol Text: Adjustment Start Date: Thursday01/27/25 INR Value: 2.6 INR Date: 01/27/25 Recheck Date: 02/03/25 Discontinued albuterol sulfate [ProAir HFA] 90 mcg/actuation HFA aerosol inhaler 2 puff INHALATION Q2-4H PRN (Reason: shortness of breath or wheezing) Qty: 8.5 11RF Rx Instructions: Inhale two puffs by mouth every 2-4 hours as needed. Date of admission: 02/02/25 15:56 Primary Care Provider: Liset Haynes Admitting Provider: Ayesha Stewart Attending physician on admission: Ayesha Stewart Condition: Stable Quality VTE Prophylaxis VTE prophylaxis: pharmacologic ordered
== END 2025-02-06 15:45 | disposition swing bed (61) ==
LOC: ANHED 15:56 → ANH3MEDSUR 17:29
PROVIDERS: Nurse Practitioner Gerontology; Physician Assistant; Admitting Provider Family Medicine; Emergency Provider Emergency Medicine; PCP Family Medicine; Visit Provider Family Medicine
DX: J18.9 Pneumonia, unspecified organism (principal); J44.0 Chronic obstructive pulmonary disease with (acute) lower respiratory infection; N17.9 Acute kidney failure, unspecified; R53.1 Weakness; W18.30XA Fall on same level, unspecified, initial encounter; I10 Essential (primary) hypertension; E78.2 Mixed hyperlipidemia; M79.661 Pain in right lower leg; I82.509 Chronic embolism and thrombosis of unspecified deep veins of unspecified lower extremity; E11.40 Type 2 diabetes mellitus with diabetic neuropathy, unspecified; I48.91 Unspecified atrial fibrillation; N40.0 Benign prostatic hyperplasia without lower urinary tract symptoms; K80.20 Calculus of gallbladder without cholecystitis without obstruction; N32.3 Diverticulum of bladder; H54.7 Unspecified visual loss; Z66 Do not resuscitate; Z20.822 Contact with and (suspected) exposure to COVID-19; Z86.16 Personal history of COVID-19; Z87.01 Personal history of pneumonia (recurrent); Z79.01 Long term (current) use of anticoagulants; Z79.51 Long term (current) use of inhaled steroids; Z79.4 Long term (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; Z86.711 Personal history of pulmonary embolism; Z87.891 Personal history of nicotine dependence; Z90.81 Acquired absence of spleen; Z96.653 Presence of artificial knee joint, bilateral; Z98.42 Cataract extraction status, left eye; Z98.41 Cataract extraction status, right eye; Z98.890 Other specified postprocedural states
CPT/HCPCS: 36415; 36600; 70450; 71045; 71260; 74177; 80048; 80053; 81001; 82805; 82948; 83605; 83735; 83880; 84145; 84484; 85018; 85025; 85610; 85730; 87086; 87637; 93005; 93971; 94640; 96361; 96365; 96375; 96376; 97116; 97162; 97165; 97530; 99285; A9270; G0378; J0456; J0696; J1815; J7030; J7050; Q9967

== ENCOUNTER 2025-02-06 16:21 | Inpatient (IN) | payer MEDICARE, SELFPAY ==
--- OUTSIDE RECORDS SUMMARY | 2025-02-06 16:25 | XMS_ITS | Continuity of Care Document ---
Author Organization [facility] Address [address] [place] [address] Phone Care Team Providers Care Podiatric Physician Name Role Phone Julisa Mcintyre Unavailable Unavailable [...] Diagnoses Date Provider Providers Copied on Encounter [facility], [address], [place], [place], [address], [place] tel:[phone] [facility] No Information 0 Miguelina Egan. [address] , [address], [place], [address], [place]. tel:[phone] [facility], [address], [place], [place], [address], [place] tel:[phone] [facility] No Information 0 Miguelina Rodriguezn. [address] , [address], [place], [place], [facility], [place]. tel:[phone] [facility], [address], [place], [place], [address], [place] tel:[phone] [facility] No Information 0 Miguelina Julisa. [address] , [address], [place], [place], [facility], [place]. tel:[phone] Office/outpati ent Visit, [facility], [address] [place] [address] [address], [place], [place], [address], tel:[phone] [facility] No Information 0 Miguelina Rodriguezn. [address] , [address], [place], [place], [facility], [place]. tel:[phone] Office/outpati ent Visit, [facility], [address], [place], [place], [address], [place] tel:[phone] [facility] No Information Dec-2 9-200 9 Miguelina Julisa. [address] , [address], [place], [place], [facility], [place]. tel:[phone] [facility], [address], [place], [place], [address], [place] tel:[phone] [facility] No Information Oct-2 7-200 9 Miguelina Julisa. [address] , [address], [place], [facility], [place]. tel:[phone] [facility], [address], [place], [place], [address], [place] tel:[phone] [facility] No Information Oct-0 6-200 9 Mcintyre Julisa. [address], [address], [place], [facility], [place]. tel:[phone] [facility], [address], [place], [place], [address], [place] tel:[phone] [facility] [address] No Information Sep-2 4-200 9 Mcintyre Julisa. [address], [place], [facility], [place]. tel:[phone] [facility], [address], [place], [place], [address], [place] tel:[phone] [facility] No Information Sep-2 3-200 9 Mcintyre Julisa. [address] , [address], [place], [facility], [place]. tel:[phone] [facility], [address] [place] [address] [address], [place], [place], [address], [place] tel:[phone] [facility] No Information Sep-1 5-200 9 Miguelina Rodriguezn. [address], [place], [facility], [place]. tel:[phone] [facility], [address], [place], [place], [address], [place] tel:[phone] [facility] [address] [facility] No Information Sep-1 0-200 9 Miguelina Julisa. [address] , [address], [place], [facility], [place]. tel:[phone] [facility], [address], [place], [place], [address], [place] tel:[phone] [facility] No Information Sep-0 9-200 9 Miguelina Julisa. [address], [place], [facility], [place]. tel:[phone] Office Consultation [facility], [address], [place], [place], [address], [place] tel:[phone] [facility] No Information 9 Miguelina Egan. [address], [place], [address], [place]. tel:[phone] Family History Family Member Type Diagnosis Age [...]
--- OUTSIDE RECORDS SUMMARY | 2025-02-06 16:25 | XMS_ITS | Clinical Summary ---
Author Organization [facility] Address [address] [place] [address] Care Team Providers Care Stamping Bench Die Maker Name Role Phone Liset Haynes MD Primary Care Provider [phone] Allergies Active Allergy Reactions Criticality Noted Date [...] 07/28/2023 Assessment & Plan (07/28/2023 1:21 PM MERCHANDISE PICKUP/RECEIVING ASSOCIATE): 07/28 medications reviewed and updated through [facility] (subarachnoid hemorrhage) 07/27/2023 Assessment & Plan (07/29/2023 7:30 AM MERCHANDISE PICKUP/RECEIVING ASSOCIATE): - Neurosurgery consulted - Repeat head CT [...] 07/27/2023 Assessment & Plan (07/27/2023 2:21 PM MERCHANDISE PICKUP/RECEIVING ASSOCIATE): - PRS consulted - s/p repair with 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 - Bacitracin TID x 3 days, then vaseline - HOB elevation - Pending recovery or discharge, please call [phone] or [phone] to schedule follow-up within 1-2 weeks to be seen by an BURT Left knee pain 07/27/2023 Assessment & Plan (07/28/2023 12:59 PM MERCHANDISE PICKUP/RECEIVING ASSOCIATE): - XR left knee: negative for acute fracture Polycythemia 07/27/2023 Assessment & Plan (07/28/2023 12:59 PM MERCHANDISE PICKUP/RECEIVING ASSOCIATE): #coagulopathy - last PE in per chart [...] 07/27/2023 Assessment & Plan (07/27/2023 2:50 PM MERCHANDISE PICKUP/RECEIVING ASSOCIATE): - continue home levothyroxine Elevated red blood cell count 07/21/2023 Closed fracture of left distal fibula 03/11/2019 Overview (03/11/2019): Added automatically from request for surgery [id number] Acute pain due to trauma 03/11/2019 Type 2 diabetes mellitus, wi th long-term current use of insulin 03/11/2019 Assessment & Plan (07/28/2023 1:07 PM MERCHANDISE PICKUP/RECEIVING ASSOCIATE): #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, [...] 02/08/2019 Assessment & Plan (08/06/2021 12:23 PM MERCHANDISE PICKUP/RECEIVING ASSOCIATE): Cholesterol <200 mg/dL 142 137 R, CM 116 Low R 118 R, CM HDL > OR = 40 mg/dL 46 41 R, CM 34 Low R 27 Low R, CM Triglycerides <150 mg/dL 84 83 R, CM 80 R 117 R, CM LDL mg/dL (calc) 80 He remains at goal on lipitor 40 mg so will continue Assessment & Plan (08/15/2020 12:58 PM MERCHANDISE PICKUP/RECEIVING ASSOCIATE): He is on lipitor 20 mg= TC 151/HDL 41/ TG 105/ LDL 89 He has been averaging in the 80 range the past 3 years so am going to the 40 mg dosing to get it down below 70 as he has no sx on the 20 Assessment & Plan (08/17/2019 12:02 PM MERCHANDISE PICKUP/RECEIVING ASSOCIATE): TC 137/LDL 79 on lipitor 20 mg and at goal Assessment & Plan (02/08/2019 1:08 PM CDT): His LDL is at goal Presence of IVC filter 09/28/2018 Bruising 03/19/2017 Chronic anemia 03/19/2017 Edema 03/19/2017 Pulmonary embolism without acute cor pulmonale 0 02/10/2017 Assessment & Plan (07/28/2023 11:41 AM MERCHANDISE PICKUP/RECEIVING ASSOCIATE): - Hold warfarin - s/p IVC filter Assessment & Plan (07/21/2017 12:18 PM MERCHANDISE PICKUP/RECEIVING ASSOCIATE): Unfortunately, he needs anticoagulation. A recent venous [...] 01/20/2017 Assessment & Plan (08/17/2019 12:05 PM MERCHANDISE PICKUP/RECEIVING ASSOCIATE): 1. 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 Global left ventricular [...] 01/20/2017 Assessment & Plan (07/27/2023 2:41 PM MERCHANDISE PICKUP/RECEIVING ASSOCIATE): See Pulmonary Embolism Assessment & Plan (01/20/2017 [...] elective Lexiscan nuclear stress test over at [facility] which is convenient. If this is negative and since pulmonary is no from there mechanism. It may be worthwhile to consider some type of an alternate exercise program such as swimming, i.e. water aerobic Pure hypercholesterolemia 01/20/2017 Assessment & Plan (07/27/2023 2:42 PM MERCHANDISE PICKUP/RECEIVING ASSOCIATE): - Continue home Lipitor Assessment & Plan (02/08/2019 1:06 PM CDT): SCRIBED Cholesterol, Total l - h 151 SCRIBED HDL l - h 45 SCRIBED LDL l - h 87 SCRIBED Triglycerides l - h 95 His LDL is at goal on lipitor 20 mg a day Assessment & Plan (08/11/2018 10:31 AM MERCHANDISE PICKUP/RECEIVING ASSOCIATE): Lipid profile today=TC 170/ HDL 55/ TG [...] lipitor Assessment & Plan (07/21/2017 12:22 PM MERCHANDISE PICKUP/RECEIVING ASSOCIATE): Todays lipid profile= TC 151/ HDL 45/ [...] 01/02 Assessment & Plan (07/27/2023 2:47 PM MERCHANDISE PICKUP/RECEIVING ASSOCIATE): - BMI 44.94 kg/m2 on admission Assessment & Plan (02/08/2019 2:11 PM CDT): He continues to work with diet and exercise Assessment & Plan (08/11/2018 10:35 AM MERCHANDISE PICKUP/RECEIVING ASSOCIATE): He continues to work with calorie restriction and ambulation Assessment & Plan (01/27/2018 11:21 AM CDT): He works with diet, exercise limited as he walks with a cane Assessment & Plan (07/21/2017 12:31 PM MERCHANDISE PICKUP/RECEIVING ASSOCIATE): He continues to work with diet Assessment & Plan (02/10/2017 1:56 PM CDT): Need for wt loss discussed. Recs: 1) continue diet and lifestyle modifications. Metastatic neoplasm 07/18/2016 Benign paroxysmal positional vertigo 09/20/2015 Pulmonary embolism 08/09/2015 Paroxysmal atrial fibrillation 08/09/2015 Assessment & Plan (07/27/2023 2:57 PM MERCHANDISE PICKUP/RECEIVING ASSOCIATE): - Continue home flecainide - Continue home metoprolol - suppressed on warfarin, flecainide; follows with cardiology outpatient - last TTE in 2018 w/ LVEF 55% and no obvious structural issues Assessment & Plan (08/06/2021 12:26 PM MERCHANDISE PICKUP/RECEIVING ASSOCIATE): He has had no recurrences since last year; echo normal, So I made no changes He is protected with Warfarin, on tambocor and metoprolol which I would continue Assessment & Plan (08/15/2020 12:39 PM MERCHANDISE PICKUP/RECEIVING ASSOCIATE): He has had recurrent episodes of atrial [...] 07/12/2015 Assessment & Plan (07/28/2023 11:47 AM MERCHANDISE PICKUP/RECEIVING ASSOCIATE): - 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 since then per ID - doxycycline reordered Arthritis 12/17/2009 Hypertension 12/17/2009 Assessment & Plan (08/06/2021 12:26 PM MERCHANDISE PICKUP/RECEIVING ASSOCIATE): His BP remains at goal on the BB, so will continue Assessment & Plan (08/15/2020 12:34 PM MERCHANDISE PICKUP/RECEIVING ASSOCIATE): His blood pressure is at goal Assessment & Plan (08/17/2019 12:00 PM MERCHANDISE PICKUP/RECEIVING ASSOCIATE): His BP remains at goal Assessment & Plan (02/08/2019 1:05 PM CDT): His BP remains at goal Assessment & Plan (08/11/2018 10:26 AM MERCHANDISE PICKUP/RECEIVING ASSOCIATE): His BP is at goal Immunizations Immunization [...] on file Legal Sex Male 3:18 AM MERCHANDISE PICKUP/RECEIVING ASSOCIATE Gender Identity Not on file Sexual Orientation Not on file Obstetrics History Last Filed Vital Signs Vital Sign Reading Time Taken Comments Blood Pressure 108/70 10/07/2024 2:53 PM MERCHANDISE PICKUP/RECEIVING ASSOCIATE Pulse 62 10/07/2024 2:53 PM MERCHANDISE PICKUP/RECEIVING ASSOCIATE Temperature 36.3 C (97.3 F) 09/07/2024 7:18 AM MERCHANDISE PICKUP/RECEIVING ASSOCIATE Respiratory Rate 18 09/07/2024 8:20 AM MERCHANDISE PICKUP/RECEIVING ASSOCIATE Oxygen Saturation 94% 10/07/2024 2:53 PM MERCHANDISE PICKUP/RECEIVING ASSOCIATE Inhaled Oxygen Concentration - - Weight 155.6 kg (343 lb) 10/07/2024 2:53 PM MERCHANDISE PICKUP/RECEIVING ASSOCIATE Height 188 cm (6' 2) 10/07/2024 2:53 PM MERCHANDISE PICKUP/RECEIVING ASSOCIATE Body Mass Index 44.04 10/07/2024 2:53 PM MERCHANDISE PICKUP/RECEIVING ASSOCIATE Plan of Treatment Health Maintenance Due Date [...] Diagnosis Comments EGFR STAT 07/27/2023 8:57 AM MERCHANDISE PICKUP/RECEIVING ASSOCIATE LIPID PANEL Routine 11/13/2020 8:46 AM CDT HEMOGLOBIN A1C STAT 03/11/2019 12:48 PM CDT from Last 3 Months or Most Recently Relevant to Health Maintenance Results * eGFR (07/27/2023 8:57 AM MERCHANDISE PICKUP/RECEIVING ASSOCIATE) eGFR 60 >=60 mL/min/1. 73 m2 AMY [...] last reviewed 2021. Blood 07/27/2023 8:57 AM MERCHANDISE PICKUP/RECEIVING ASSOCIATE 07/27/2023 9:13 AM MERCHANDISE PICKUP/RECEIVING ASSOCIATE us Carlota Blum MD LAB BLOOD ORDERABLES F inal Result [facility]Y [facility] Department of Laboratories [place], [place] [id number] * Lipid panel (11/13/2020 8:46 AM CDT) [...] LDL-C. Norberto BEDOLLA et al. TEGAN. 2013;310(19): 2984-8539 (http://education.[employer].com.ng/faq/TMO863) Chol/HDL ratio 3.1 <5.0 (calc) [facility] [...] BLOOD ORDERABLES Final Result [facility] [address] [place] [address] * (ABNORMAL) Hemoglobin A1c (03/11/2019 12:48 PM CDT) Hgb A1C 7.5(H) 4.0 - 5.6 % AM[facility] Estimated Average Glucose 169 mg/dL AMY [facility] Comment: The ADA recommends reporting an estimated Average Glucose (eAG) with all Hemoglobin A1c results using the equation derived from a study of 507 normal and diabetic adults. Minority populations were underrepresented and children were not included. (Diabetes Care 31:9423-2638, 2008). The eAG is not equivalent to a fasting glucose. Blood specimen (specimen) 03/11/2019 12:48 PM CDT 03/11/2019 12:59 PM CDT us Alvaro Ortez DO LAB BLOOD ORDERABLES Fi nal Result AMY [facility] Department [place] [address] from Last 3 Months or Most Recently Relevant to Health Maintenance Insurance [facility] MEDICARE ADVANTAGE [facility] MEDICARE [facility] MEDICARE MEDICARE [facility] MEDICARE ADVANTAGE Advance Directives For more information, please contact: [phone] * Full Code (Latest Code Status on File) Date Activated Date Inactivated Comments 09/07/2024 7:02 AM 09/07/2024 1:03 PM * Full Code Date Activated Date Inactivated Comments 01/22/2024 12:34 PM 01/22/2024 7:05 PM * Full Code Date Activated Date Inactivated Comments 07/27/2023 11:35 AM 07/29/2023 6:04 PM * Full Code Date Activated Date Inactivated Comments 03/11/2019 9:03 PM 03/16/2019 8:04 PM Care Teams Stamping Bench Die Maker Relationship Specialty Start Date End Date Liset Haynes MD PCP - General Family Medicine 08/05/22
--- OUTSIDE RECORDS SUMMARY | 2025-02-06 16:25 | XMS_ITS | Clinical Summary ---
Author Organization [facility] Address [address] [place] [address] Care Team Providers Care Cnc Applications Engineer Name Role Phone Liset Haynes MD Primary Care Provider [phone] Allergies No known active allergies Medications amiodarone [...] STL ABSTRACTION Provider, Abstract 01/11/2025 Orders Only [facility] Oncology and Hematology [facility] [address] [place] [address] Kendall Wills MD 01/10/2025 11:45 AM CDT Office Visit [facility] Oncology and Hematology [place] [address] [place] [address] Kendall Wills MD Polycythemia, secondary (Primary Dx) [...] kg (343 lb) 07/12/2024 1:0 3 PM MANAGER CLINIC Patient is unable to step on scale,patient gave me a verbal current weight from recent. Height 188 cm (6' 2) 06/08/2018 8:37 AM MANAGER CLINIC Body Mass Index 44.04 06/08/2018 8:37 AM MANAGER CLINIC Plan of Treatment Upcoming Encounters Date Type Department Care Team (Late st Contact Info) Description 07/13/2025 1:00 PM MANAGER CLINIC Office Visit [facility] Oncology and Hematology - [place] [address] [facility] [address] [place] [address] Kendall Wills MD [address] [facility] [address] [place] [address] Health Maintenance Due Date Last [...] Res ult from Last 3 Months Insurance [facility] Care Teams Cnc Applications Engineer Relationship Specialty Start Date End Date Liset Haynes MD [address] [place] [address] PCP - General Family Practice 01/06/23
--- OUTSIDE RECORDS SUMMARY | 2025-02-06 16:25 | XMS_ITS | Clinical Summary ---
Author Organization [facility] Address [address], [address] [address] Phone Care Team Providers Care Commercial Lending Vice President Name Role Phone Christopher Diop MD Primary Care Provider [phone] Mayra Casper MD Unavailable [phone] Allergies No known active allergies Medications tamsulosin [...] Tabs by mouth daily. Active Probiotic Product ([facility] HEALTH PO) Take by mouth. Acti ve [...] Job Start Date Job End Date retired-from [employer] Not on file Not on file Not [...] age to complete this topic Care Teams Commercial Lending Vice President Relationship Specialty Start Date End Date Christopher Diop MD [address] [place] [address] PCP - General Family Medicine 03/11/17 Mayra Casper MD [address] [place] [address] Consulting Physician Gastroenterology 07/30/17
--- OUTSIDE RECORDS SUMMARY | 2025-02-06 16:25 | XMS_ITS | Clinical Summary ---
Author Organization [facility] Address [address] [place] [address] Care Team Providers Care Thermal Spray Operator Name Role Phone Unavailable Primary Care Provider Unavailabl e Social History Tobacco Use Types Packs/Day Years Used Date Smoking Tobacco: Never Assessed Sex and Gender Information Value Date Recorded Sex Assigned at Not on file Legal Sex Male 5:58 PM BUSINESS EMPLOYMENT SPECIALIST Gender Identity Not on file Sexual [...]
--- OUTSIDE RECORDS SUMMARY | 2025-02-06 16:25 | XMS_ITS | Referral Summary ---
Author Organization [facility] Address [address] [place] [address] Care Team Providers Care Hand Paster Name Role Phone Liset Haynes MD Primary Care Provider [phone] Allergies Active Allergy Reactions Criticality Noted Date [...] 07/28/2023 Assessment & Plan (07/28/2023 1:21 PM COSMETICS PRESSER): 07/28 medications reviewed and updated [facility] (subarachnoid hemorrhage) 07/27/2023 Assessment & Plan (07/29/2023 7:30 AM COSMETICS PRESSER): - Neurosurgery consulted - Repeat head CT [...] 07/27/2023 Assessment & Plan (07/27/2023 2:21 PM COSMETICS PRESSER): - PRS consulted - s/p repair with 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 - Bacitracin TID x 3 days, then vaseline - HOB elevation - Pending recovery or discharge, please call [phone] or [phone] to schedule follow-up within 1-2 weeks to be seen by an BURT Left knee pain 07/27/2023 Assessment & Plan (07/28/2023 12:59 PM COSMETICS PRESSER): - XR left knee: negative for acute fracture Polycythemia 07/27/2023 Assessment & Plan (07/28/2023 12:59 PM COSMETICS PRESSER): #coagulopathy - last PE in per chart [...] 07/27/2023 Assessment & Plan (07/27/2023 2:50 PM COSMETICS PRESSER): - continue home levothyroxine Elevated red blood cell count 07/21/2023 Closed fracture of left distal fibula 03/11/2019 Overview (03/11/2019): Added automatically from request for surgery [id number] Acute pain due to trauma 03/11/2019 Type 2 diabetes mellitus, wi th long-term current use of insulin 03/11/2019 Assessment & Plan (07/28/2023 1:07 PM COSMETICS PRESSER): #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, [...] 02/08/2019 Assessment & Plan (08/06/2021 12:23 PM COSMETICS PRESSER): Cholesterol <200 mg/dL 142 137 R, CM 116 Low R 118 R, CM HDL > OR = 40 mg/dL 46 41 R, CM 34 Low R 27 Low R, CM Triglycerides <150 mg/dL 84 83 R, CM 80 R 117 R, CM LDL mg/dL (calc) 80 He remains at goal on lipitor 40 mg so will continue Assessment & Plan (08/15/2020 12:58 PM COSMETICS PRESSER): He is on lipitor 20 mg= TC 151/HDL 41/ TG 105/ LDL 89 He has been averaging in the 80 range the past 3 years so am going to the 40 mg dosing to get it down below 70 as he has no sx on the 20 Assessment & Plan (08/17/2019 12:02 PM COSMETICS PRESSER): TC 137/LDL 79 on lipitor 20 mg and at goal Assessment & Plan (02/08/2019 1:08 PM CDT): His LDL is at goal Presence of IVC filter 09/28/2018 Bruising 03/19/2017 Chronic anemia 03/19/2017 Edema 03/19/2017 Pulmonary embolism without acute cor pulmonale 0 02/10/2017 Assessment & Plan (07/28/2023 11:41 AM COSMETICS PRESSER): - Hold warfarin - s/p IVC filter Assessment & Plan (07/21/2017 12:18 PM COSMETICS PRESSER): Unfortunately, he needs anticoagulation. A recent venous [...] 01/20/2017 Assessment & Plan (08/17/2019 12:05 PM COSMETICS PRESSER): 1. 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 Global left ventricular [...] 01/20/2017 Assessment & Plan (07/27/2023 2:41 PM COSMETICS PRESSER): See Pulmonary Embolism Assessment & Plan (01/20/2017 [...] elective Lexiscan nuclear stress test over at [facility] which is convenient. If this is negative and since pulmonary is no from there mechanism. It may be worthwhile to consider some type of an alternate exercise program such as swimming, i.e. water aerobic Pure hypercholesterolemia 01/20/2017 Assessment & Plan (07/27/2023 2:42 PM COSMETICS PRESSER): - Continue home Lipitor Assessment & Plan (02/08/2019 1:06 PM CDT): SCRIBED Cholesterol, Total l - h 151 SCRIBED HDL l - h 45 SCRIBED LDL l - h 87 SCRIBED Triglycerides l - h 95 His LDL is at goal on lipitor 20 mg a day Assessment & Plan (08/11/2018 10:31 AM COSMETICS PRESSER): Lipid profile today=TC 170/ HDL 55/ TG [...] lipitor Assessment & Plan (07/21/2017 12:22 PM COSMETICS PRESSER): Todays lipid profile= TC 151/ HDL 45/ [...] 01/02 Assessment & Plan (07/27/2023 2:47 PM COSMETICS PRESSER): - BMI 44.94 kg/m2 on admission Assessment & Plan (02/08/2019 2:11 PM CDT): He continues to work with diet and exercise Assessment & Plan (08/11/2018 10:35 AM COSMETICS PRESSER): He continues to work with calorie restriction and ambulation Assessment & Plan (01/27/2018 11:21 AM CDT): He works with diet, exercise limited as he walks with a cane Assessment & Plan (07/21/2017 12:31 PM COSMETICS PRESSER): He continues to work with diet Assessment & Plan (02/10/2017 1:56 PM CDT): Need for wt loss discussed. Recs: 1) continue diet and lifestyle modifications. Metastatic neoplasm 07/18/2016 Benign paroxysmal positional vertigo 09/20/2015 Pulmonary embolism 08/09/2015 Paroxysmal atrial fibrillation 08/09/2015 Assessment & Plan (07/27/2023 2:57 PM COSMETICS PRESSER): - Continue home flecainide - Continue home metoprolol - suppressed on warfarin, flecainide; follows with cardiology outpatient - last TTE in 2018 w/ LVEF 55% and no obvious structural issues Assessment & Plan (08/06/2021 12:26 PM COSMETICS PRESSER): He has had no recurrences since last year; echo normal, So I made no changes He is protected with Warfarin, on tambocor and metoprolol which I would continue Assessment & Plan (08/15/2020 12:39 PM COSMETICS PRESSER): He has had recurrent episodes of atrial [...] 07/12/2015 Assessment & Plan (07/28/2023 11:47 AM COSMETICS PRESSER): - 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 - has been on chronic suppressive doxycycline since then per ID - doxycycline reordered Arthritis 12/17/2009 Hypertension 12/17/2009 Assessment & Plan (08/06/2021 12:26 PM COSMETICS PRESSER): His BP remains at goal on the BB, so will continue Assessment & Plan (08/15/2020 12:34 PM COSMETICS PRESSER): His blood pressure is at goal Assessment & Plan (08/17/2019 12:00 PM COSMETICS PRESSER): His BP remains at goal Assessment & Plan (02/08/2019 1:05 PM CDT): His BP remains at goal Assessment & Plan (08/11/2018 10:26 AM COSMETICS PRESSER): His BP is at goal Immunizations Immunization [...] on file Legal Sex Male 3:18 AM COSMETICS PRESSER Gender Identity Not on file Sexual Orientation Not on file Last Filed Vital Signs Vital Sign Reading Time Taken Comments Blood Pressure 108/70 10/07/2024 2:53 PM COSMETICS PRESSER Pulse 62 10/07/2024 2:53 PM COSMETICS PRESSER Temperature 36.3 C (97.3 F) 09/07/2024 7:18 AM COSMETICS PRESSER Respiratory Rate 18 09/07/2024 8:20 AM COSMETICS PRESSER Oxygen Saturation 94% 10/07/2024 2:53 PM COSMETICS PRESSER Inhaled Oxygen Concentration - - Weight 155.6 kg (343 lb) 10/07/2024 2:53 PM COSMETICS PRESSER Height 188 cm (6' 2) 10/07/2024 2:53 PM COSMETICS PRESSER Body Mass Index 44.04 10/07/2024 2:53 PM COSMETICS PRESSER Plan of Treatment Not on file Procedures Procedure Name Priority Date/Time Associated Diagnosis Comments EGFR STAT 07/27/2023 8:57 AM COSMETICS PRESSER LIPID PANEL Routine 11/13/2020 8:46 AM CDT HEMOGLOBIN A1C STAT 03/11/2019 12:48 PM CDT from Last 3 Months or Most Recently Relevant to Health Maintenance Results * eGFR (07/27/2023 8:57 AM COSMETICS PRESSER) eGFR 60 >=60 mL/min/1. 73 m2 AMY [...] last reviewed 2021. Blood 07/27/2023 8:57 AM COSMETICS PRESSER 07/27/2023 9:13 AM COSMETICS PRESSER us Carlota Blum MD LAB BLOOD ORDERABLES F inal Result [facility] Department [place] [address] * Lipid panel (11/13/2020 8:46 AM CDT) [...] LDL-C. Norberto BEDOLLA et al. TEGAN. 2013;310(19): 8030-3072 (http://education.[facility]/faq/AZK265) Chol/HDL ratio 3.1 <5.0 (calc) [facility] Non-HDL, (LDL+VLDL) 96 <130 mg/dL (calc) [facility] Comment: For patients with diabetes plus 1 major ASCVD risk factor, treating to a non-HDL-C goal of <100 mg/dL (LDL-C of <70 mg/dL) is considered a therapeutic option. 11/13/2020 8:46 AM CDT 11/13/2020 8:47 AM CDT [facility] - 11/14/2020 2:24 AM CDT FASTING:YES FASTING: YES us Norberto Cordero DO LAB BLOOD ORDERABLES Final Result [facility] [address] [place] [address] * (ABNORMAL) Hemoglobin A1c (03/11/2019 12:48 PM CDT) Hgb A1C 7.5(H) 4.0 - 5.6 % [facility] Estimated Average Glucose 169 mg/dL [facility] Comment: The ADA recommends reporting an estimated Average Glucose (eAG) with all Hemoglobin A1c results using the equation derived from a study of 507 normal and diabetic adults. Minority populations were underrepresented and children were not included. (Diabetes Care 31:9032-1045, 2008). The eAG is not equivalent to a fasting glucose. Blood specimen (specimen) 03/11/2019 12:48 PM CDT 03/11/2019 12:59 PM CDT Alvaro Ortez DO LAB BLOOD ORDERABLES nal Result [facility] Department [place] [address] from Last 3 Months or Most Recently Relevant to Health Maintenance Insurance [facility] MEDICARE ADVANTAGE [facility] MEDICARE [facility] MEDICARE [facility] Address[facility] [id number] [place] [address] [facility] MEDICARE [facility] MEDICARE ADVANTAGE [facility] [place] [address] Advance Directives For more information, please contact: [phone] * Full Code (Latest Code Status on File) Date Activated Date Inactivated Comments 09/07/2024 7:02 AM 09/07/2024 1:03 PM * Full Code Date Activated Date Inactivated Comments 01/22/2024 12:34 PM 01/22/2024 7:05 PM * Full Code Date Activated Date Inactivated Comments 07/27/2023 11:35 AM 07/29/2023 6:04 PM * Full Code Date Activated Date Inactivated Comments 03/11/2019 9:03 PM 03/16/2019 8:04 PM Care Teams Hand Paster Relationship Specialty Start Date End Date Liset Haynes MD PCP - General Family Medicine 08/05/22
--- OUTSIDE RECORDS SUMMARY | 2025-02-06 16:25 | XMS_ITS | Encounter Summary ---
Author Organization [facility] Address [address] [place] [address] Phone Care Team Providers Care Cigarette Catcher Name Role Phone Myron Diop MD Primary Care Provider [phone] Mayra Casper MD Unavailable [phone] Reason for Visit * Reason Comments Medication Refill Encounter Details Date Type Department Care Team (Late st Contact Info) Description 07/11/2020 Refill [facility] - Gastroenterology [facility] [address] [place] [address] Rosa Isela Boo Luz, PAC [address] [place] [address] Medication Refill Social History Tobacco Use Types [...] Job Start Date Job End Date retired-from [employer] Not on file Not on file Not on file documented as of this encounter Miscellaneous Notes * Telephone Encounter - Kelly Hodge CMA - 07/11/2020 1:17 PM TRIMMING MACHINE OPERATOR Patients was notified on 03/29/2020 that refills after that were to go to primary care provider. verbalized understanding MING MACHINE OPERATOR documented in this encounter Plan of Treatment Not on file documented as of this encounter Visit Diagnoses Not on filedocumented in this encounter Care Teams Cigarette Catcher Relationship Specialty Start Date End Date Myron Diop MD [address] [place] [id number] PCP - General Family Medicine 03/11/17 Mayra Casper MD [address] [place] [address] [id number] Consulting Physician Gastroenterology 07/30/17 documented as of this encounter
--- OUTSIDE RECORDS SUMMARY | 2025-02-06 16:25 | XMS_ITS ---
Author Organization [facility] Address [address] [place] [address] Care Team Providers Care Senior Writer Name Role Phone Liset Haynes MD Primary Care Provider [phone] Active Problems Problem Noted Date Diagnosed Date Dysphagia 09/17/2023 Encounter for medication review 07/28/2023 Assessment & Plan (07/28/2023 1:21 PM GENETIC PHYSICIAN): 07/28 medications reviewed and updated through contact with [facility] (subarachnoid hemorrhage) 07/27/2023 Assessment & Plan (07/29/2023 7:30 AM GENETIC PHYSICIAN): - Neurosurgery consulted - Repeat head CT [...] 07/27/2023 Assessment & Plan (07/27/2023 2:21 PM GENETIC PHYSICIAN): - PRS consulted - s/p repair with 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 - Bacitracin TID x 3 days, then vaseline - HOB elevation - Pending recovery or discharge, please call [phone] or [phone] to schedule follow-up within 1-2 weeks to be seen by an BURT Left knee pain 07/27/2023 Assessment & Plan (07/28/2023 12:59 PM GENETIC PHYSICIAN): - XR left knee: negative for acute fracture Polycythemia 07/27/2023 Assessment & Plan (07/28/2023 12:59 PM GENETIC PHYSICIAN): #coagulopathy - last PE in per chart [...] 07/27/2023 Assessment & Plan (07/27/2023 2:50 PM GENETIC PHYSICIAN): - continue home levothyroxine Elevated red blood cell count 07/21/2023 Closed fracture of left distal fibula 03/11/2019 Overview (03/11/2019): Added automatically from request for surgery [id number] Acute pain due to trauma 03/11/2019 Type 2 diabetes mellitus, wi th long-term current use of insulin 03/11/2019 Assessment & Plan (07/28/2023 1:07 PM GENETIC PHYSICIAN): #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, [...] 02/08/2019 Assessment & Plan (08/06/2021 12:23 PM GENETIC PHYSICIAN): Cholesterol <200 mg/dL 142 137 R, CM 116 Low R 118 R, CM HDL > OR = 40 mg/dL 46 41 R, CM 34 Low R 27 Low R, CM Triglycerides <150 mg/dL 84 83 R, CM 80 R 117 R, CM LDL mg/dL (calc) 80 He remains at goal on lipitor 40 mg so will continue Assessment & Plan (08/15/2020 12:58 PM GENETIC PHYSICIAN): He is on lipitor 20 mg= TC 151/HDL 41/ TG 105/ LDL 89 He has been averaging in the 80 range the past 3 years so am going to the 40 mg dosing to get it down below 70 as he has no sx on the 20 Assessment & Plan (08/17/2019 12:02 PM GENETIC PHYSICIAN): TC 137/LDL 79 on lipitor 20 mg and at goal Assessment & Plan (02/08/2019 1:08 PM CDT): His LDL is at goal Presence of IVC filter 09/28/2018 Bruising 03/19/2017 Chronic anemia 03/19/2017 Edema 03/19/2017 Pulmonary embolism without acute cor pulmonale 0 02/10/2017 Assessment & Plan (07/28/2023 11:41 AM GENETIC PHYSICIAN): - Hold warfarin - s/p IVC filter Assessment & Plan (07/21/2017 12:18 PM GENETIC PHYSICIAN): Unfortunately, he needs anticoagulation. A recent venous [...] 01/20/2017 Assessment & Plan (08/17/2019 12:05 PM GENETIC PHYSICIAN): 1. Normal global and regional left ventricular [...] medication Assessment & Plan (08/11/2018 10:38 AM GENETIC PHYSICIAN): He remains on flecanide without sx; EKG last January= NSR; Holter in 2016= NSR, today EKG= NSR, 1st degree AVB; intervals ok; will continue warfarin more for 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, as he has been in rhythm since 2016 Assessment & Plan (07/21/2017 12:27 PM GENETIC PHYSICIAN): No diagnostic ST changes. Global left ventricular [...] 01/20/2017 Assessment & Plan (07/27/2023 2:41 PM GENETIC PHYSICIAN): See Pulmonary Embolism Assessment & Plan (01/20/2017 [...] elective Lexiscan nuclear stress test over at [facility] which is convenient. If this is negative and since pulmonary is no from there mechanism. It may be worthwhile to consider some type of an alternate exercise program such as swimming, i.e. water aerobic Pure hypercholesterolemia 01/20/2017 Assessment & Plan (07/27/2023 2:42 PM GENETIC PHYSICIAN): - Continue home Lipitor Assessment & Plan (02/08/2019 1:06 PM CDT): SCRIBED Cholesterol, Total l - h 151 SCRIBED HDL l - h 45 SCRIBED LDL l - h 87 SCRIBED Triglycerides l - h 95 His LDL is at goal on lipitor 20 mg a day Assessment & Plan (08/11/2018 10:31 AM GENETIC PHYSICIAN): Lipid profile today=TC 170/ HDL 55/ TG [...] lipitor Assessment & Plan (07/21/2017 12:22 PM GENETIC PHYSICIAN): Todays lipid profile= TC 151/ HDL 45/ [...] 01/02 Assessment & Plan (07/27/2023 2:47 PM GENETIC PHYSICIAN): - BMI 44.94 kg/m2 on admission Assessment & Plan (02/08/2019 2:11 PM CDT): He continues to work with diet and exercise Assessment & Plan (08/11/2018 10:35 AM GENETIC PHYSICIAN): He continues to work with calorie restriction and ambulation Assessment & Plan (01/27/2018 11:21 AM CDT): He works with diet, exercise limited as he walks with a cane Assessment & Plan (07/21/2017 12:31 PM GENETIC PHYSICIAN): He continues to work with diet Assessment & Plan (02/10/2017 1:56 PM CDT): Need for wt loss discussed. Recs: 1) continue diet and lifestyle modifications. Metastatic neoplasm 07/18/2016 Benign paroxysmal positional vertigo 09/20/2015 Pulmonary embolism 08/09/2015 Paroxysmal atrial fibrillation 08/09/2015 Assessment & Plan (07/27/2023 2:57 PM GENETIC PHYSICIAN): - Continue home flecainide - Continue home metoprolol - suppressed on warfarin, flecainide; follows with cardiology outpatient - last TTE in 2019 w/ LVEF 55% and no obvious structural issues Assessment & Plan (08/06/2021 12:26 PM GENETIC PHYSICIAN): He has had no recurrences since last year; echo normal, So I made no changes He is protected with Warfarin, on tambocor and metoprolol which I would continue Assessment & Plan (08/15/2020 12:39 PM GENETIC PHYSICIAN): He has had recurrent episodes of atrial [...] 07/12/2015 Assessment & Plan (07/28/2023 11:47 AM GENETIC PHYSICIAN): - 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 at [facility] in 2016 - has been on chronic suppressive doxycycline since then per ID - doxycycline reordered Arthritis 12/17/2009 Hypertension 12/17/2009 Assessment & Plan (08/06/2021 12:26 PM GENETIC PHYSICIAN): His BP remains at goal on the BB, so will continue Assessment & Plan (08/15/2020 12:34 PM GENETIC PHYSICIAN): His blood pressure is at goal Assessment & Plan (08/17/2019 12:00 PM GENETIC PHYSICIAN): His BP remains at goal Assessment & Plan (02/08/2019 1:05 PM CDT): His BP remains at goal Assessment & Plan (08/11/2018 10:26 AM GENETIC PHYSICIAN): His BP is at goal Current Treatment and Therapy Plans No current plan information found. Past Treatment and Therapy Plans No past plan information found. Lifetime Dose Tracking * Chemical Lifetime Dose Automatic Entry Manual Entr y DLP 1,419 mGycm 1,419 mGycm 0 mGycm
[2025-02-06 16:30] VITALS: BP 159/68; PULSE 57; RESP 18; TEMP 35.8; O2SAT 96; BMI 46.5
--- NOTE | 2025-02-06 16:30 | ADMGEN ---
This patient, Neal Amaro, was admitted to 2nd Floor Room 204-1 as a skilled swing bed related to weakness. Patient had fall at home and is being treated for UTI. Patient/family oriented to hospital policies and general routines including ID bracelet, bed and alarms, visiting hours, pain management, procedures, bathroom and other care routines, personal items, smoking policy, room service/diet, and visiting hours. Information on how to activate the Rapid Response Team has been discussed. Patient/Family are encouraged to report perceived risks to care and to ask questions if they do not understand what they are told or what they should do.
[2025-02-06 18:50] VITALS: O2SAT 96
[2025-02-06 20:00] VITALS: PULSE 59; RESP 16; O2SAT 94
[2025-02-06 20:51] VITALS: PULSE 59
[2025-02-06] MEDS: METOPROLOL TARTRATE 12.5 MG TABLET PO (20:51)
[2025-02-06] MEDS: SACCHAROMYCES BOULARDII 250 MG CAPSULE PO (20:52)
[2025-02-06] MEDS: WARFARIN (*PBKC) 2 MG TABLET 6 MG PO (20:52)
[2025-02-06] MEDS: PREGABALIN (*CRX) 50 MG CAPSULE 150 MG PO (20:53)
[2025-02-06] MEDS: BACLOFEN 10 MG TABLET PO (20:53)
[2025-02-06] MEDS: DICLOFENAC SODIUM 1% 100 GM GEL (*BKC) TOPICAL (20:53)
[2025-02-06] MEDS: AZELASTINE HCL NASAL 0.1% 137 MCG/SPR 30 ML BTL 2 SPRAY NASAL (21:11)
[2025-02-06] MEDS: INSULIN GLARGINE (*BKC) 1,000 UNITS/10 ML VIAL 44 UNITS SUB-Q (21:11)
[2025-02-06 21:12] VITALS: PULSE 59
[2025-02-06] MEDS: FLECAINIDE ACETATE 50 MG TABLET PO (21:12)
[2025-02-07] VITALS (10 sets, daily range): BP systolic 138–158; BP diastolic 65–72; PULSE 55–59; RESP 16–18; TEMP 35.6–36.4; O2SAT 94–95
[2025-02-07] MEDS: LEVOTHYROXINE SODIUM 50 MCG TABLET PO (06:37)
[2025-02-07 08:00] LABS: Hematocrit 48.4 % (37.0-46.0); Hemoglobin 15.3 g/dL (12.4-15.3); Mean Corpuscular HGB Conc 31.6 g/dL (32-36); Mean Corpuscular Hemoglobin 27.1 pg (27.0-31.0); Mean Corpuscular Volume 85.7 fL (78.0-102.0); Platelet Count Result 258 K/mm3 (150-420); Red Blood Count 5.65 M/mm3 (4.70-6.10); White Blood Count 4.3 K/mm3 (4.8-10.8)
[2025-02-07 08:17] LABS: Alanine Aminotransferase 23 U/L (6-50); Albumin Level 3.0 g/dL (3.5-5.1); Alkaline Phosphatase 86 U/L (38-126); Anion Gap 2 mmol/L (4-12); Aspartate Amino Transferase 31 U/L (17-59); Bilirubin,Total 0.7 mg/dL (0.2-1.3); Blood Urea Nitrogen 14 mg/dL (9-20); Calcium 8.2 mg/dL (8.4-10.2); Carbon Dioxide 31 mmol/L (22-30); Chloride 107 mmol/L (98-107); Estimated CRCL calculation 83 ml/min; Estimated Glomerular Filt Rate > 60; Glucose 102 mg/dL (65-110); INR 2.2; Magnesium 1.8 mg/dL (1.6-2.3); Osmolality Calculated 290 mOsm/kg (285-295); Potassium 3.9 mmol/L (3.4-5.0); Prothrombin Time 22.5 Seconds (9.50-12.1); Sodium 140 mmol/L (137-145); Total Protein 6.0 g/dL (6.3-8.2)
--- NOTE | 2025-02-07 08:50 | P.HP_ITS ---
H&P: HPI History of Present Illness Date/Time: 02/07/25 08:50 Chief Complaint: Fall/unsteady gait/weakness/REHAB Swing bed Narrative: Patient is a 84-year-old male past medical history of COPD, diabetes, history of PE, BPH, blind Who was admitted to [facility] bed from [facility] due to recent fall at home with unsteady gait and weakness. Patient was initially admitted at [facility] for treatment of pneumonia, UTI, and RODRIGUEZ. Urine cultures were obtained and were negative for any growth, UTI it was then ruled out. Patient continued to be treated for pneumonia throughout hospitalization. He was initially placed on IV antibiotics and then transitioned to doxycycline and Augmentin upon discharge. Throughout hospitalization, blood work remained reassuring. RODRIGUEZ resolved on 02/05 after giving gentle IV fluid hydration. patient had reported he does history episodes of hypoglycemia and during his admission, patient's Lantus was decreased to 44 units 32 units to address overnight hypoglycemic episodes. Hypertension and hyperlipidemia were addressed by continuing at home medications. Patient remained afebrile without leukocytosis throughout hospitalization. Patient worked with PT/OT and they recommended continued rehab care with either home health or SNF. On 02/06, patient was hemodynamically stable for discharge and was discharged to [facility]. Patient on a ssessment in acute distress and no complaints except mild to moderate pain while working with physical therapy. Patient denied CP, SOB, N/V, dizziness but did endorse constipation. Review of Systems Review of Systems: 12 systems were reviewed and are negativ e except for as per HPI. All systems reviewed & are unremarkable except as noted in HPI and below PMFSH Past Medical History Medical History Trochanteric bursitis, right hip Arthritis of elbow, left, degenerative Arthritis of right shoulder region Right shoulder strain Right arm pain Olecranon bursitis of right elbow Atrial fibrillation Rupture of left Achilles tendon Left ankle pain Constipation High cholesterol SOB (shortness of breath) Vision changes COPD (chronic obstructive pulmonary disease) Osteomyelitis, chronic BPH (benign prostatic hyperplasia) History of hemorrhoids History of pulmonary embolism History of deep vein thrombosis (DVT) of lower extremity Acute exacerbation of chronic obstructive airways disease Pneumonia due to COVID-19 virus Hypothyroidism determined by thyroid function test Weakness of both lower extremities Diabetes mellitus with neuropathy Ankle syndesmosis disruption Ankle fracture, bimalleolar, closed Infection of spine Chronic antibiotic suppression Chronic anticoagulation Recurrent deep vein thrombosis (DVT) Hypertension Spleen absent Rotator cuff arthropathy of right shoulder Surgical History Surgical History Total knee replacement status H/O bilateral cataract extraction H/O splenectomy S/P rotator cuff repair H/O colonoscopy with polypectomy History of pancreatic surgery Removal of pancreatic mass ([facility]) History of embolic filter insertion Hx of hernia repair History of back surgery x2 ([facility]), x1 ([facility]) H/O total knee replacement Bilaterally Family History Family History Grandparent Diabetes mellitus Father Family history of cardiovascular disease Intracranial aneurysm Mother Dvt femoral (deep venous thrombosis) Sibling Throat cancer Sister Acute myocardial infarction Brother Social History Social History Social History: The patient is and remarried; he lives with his . Patient was smoking up to 3 packs of cigarettes a day. He is retired from [employer]. He drinks occasionally denies any illicit drugs. He is listed as a DNR. He nominates His to be the individual who would make medical decisions for him if he is unable. Smoking packs per day: 3 Smoking cigarettes per day: 60.0 Years smoked: 20 Smoking pack-years: 60.00 Smoking status: Former smoker Tobacco type: cigarettes Second hand tobacco smoke exposure: No Smoking end date: 04/13/80 Alcohol intake: never Drinks per week: 1 Substance use: never Substance use type: does not use Do You Feel Safe in your Home?: Yes Lack of Transportation: No Lack of Food: Never True Current Housing: I Have Housing Concerned About Future Housing: No Difficulty Paying Gas/Electric Bills: No Difficulty Paying for Meds: No Currently Unemployed: No Education: High School Diploma/GED Difficulty w/ Childcare or Family Care: No Living arrangements: with family Occupation/Education: retired Gender identity (if verbalized by the patient): Male Additional gender identity comments: Lives with Sexual Orientation (if Verbalized by the Patient): Straight or Heterosexual Spiritual care concerns: No Agree to blood products: Yes Meds Home Medications and Allergies Home Medications ?Medication ?Instructions ?Recorded ?Confirmed ?Type flecainide 50 mg tablet 50 mg PO Q12H 06/21/19 02/06/25 History docusate sodium 50 mg capsule 50 mg PO BID 06/14/20 02/06/25 History loratadine 10 mg capsule 10 mg PO DAILY 06/14/20 02/06/25 History lactobacillus combination no.9 4 4,000 mmu cells PO DAILY 11/07/21 02/06/25 History billion cell capsule (Adult 50 Plus Probiotic) pen needle, diabetic 32 gauge x #100 ea 04/22/22 02/06/25 Rx 1/6 (NovoFine Plus) wheeled walker XL #1 ea 03/19/23 02/06/25 Rx blood sugar diagnostic (OneTouch #100 strips 05/19/23 02/06/25 Rx Ultra Test strips) acetaminophen 650 mg 650 mg PO Q12H PRN pain 1-4 10/12/23 02/06/25 History tablet,extended release (Tylenol Arthritis Pain) warfarin 6 mg tablet 6 mg PO DAILY #30 tabs 12/09/23 02/06/25 Rx insulin glargine 100 unit/mL 44 unit (0.44 mL) subcut HS #20 mL 01/15/24 02/06/25 Rx subcutaneous solution lancets 33 gauge (OneTouch Delica #300 ea 03/07/24 02/06/25 Rx Plus Lancet) alpha lipoic acid 200 mg capsule 200 mg PO DAILY 04/13/24 02/06/25 History cholecalciferol (vitamin D3) 50 50 mcg PO DAILY 04/13/24 02/06/25 History mcg (2,000 unit) capsule compression stockings knee high #1 ea 05/04/24 02/06/25 Rx 15-20mmHG blood-glucose sensor (FreeStyle #2 ea 05/27/24 02/06/25 Rx Santiago 3 Plus Sensor device) diabetic shoes #1 ea 05/27/24 02/06/25 Rx knee high medium compression #1 ea 05/27/24 02/06/25 Rx stockings lidocaine 4 % topical patch 1 patch topical DAILY PRN pain #30 05/27/24 02/06/25 Rx (Salonpas (lidocaine)) ea leisa walker #1 ea 06/06/24 02/06/25 Rx blood-glucose,lacquer pin press operator,cont #2 ea 07/03/24 02/06/25 Rx (FreeStyle Santiago 3 [place]) furosemide 20 mg tablet See Rx Instructions .Route 07/11/24 02/06/25 Rx .COMPLEX #90 tabs metoprolol tartrate 25 mg tablet 12.5 mg (1/2 x 25 mg) PO BID #90 07/29/24 02/06/25 Rx tabs tamsulosin 0.4 mg capsule 0.8 mg (2 x 0.4 mg) PO DAILY #180 08/14/24 02/06/25 Rx caps pregabalin 150 mg capsule 150 mg PO TID #270 caps 08/24/24 02/06/25 Rx fluticasone fur. 200 mcg-umeclid 1 inh inhalation DAILY #60 ea 09/18/24 02/06/25 Rx 62.5 mcg-vilant 25 mcg inhalat.powder (Trelegy Ellipta) triamcinolone acetonide 0.1 % 1 applic topical BID #80 grams 09/19/24 02/06/25 Rx topical cream atorvastatin 20 mg tablet 20 mg PO DAILY #90 tabs 09/22/24 02/06/25 Rx levothyroxine 50 mcg tablet 50 mcg PO DAILY #90 tabs 09/22/24 02/06/25 Rx triamcinolone acetonide 0.1 % 1 applic topical BID #80 grams 10/03/24 02/06/25 Rx topical cream insulin aspart See Rx Instructions subcut 10/04/24 02/06/25 Rx (niacinamide)(U-100) 100 unit/mL(3 .COMPLEX #15 mL mL) subcutaneous pen (Fiasp FlexTouch U-100 Insulin) dapagliflozin propanediol 10 mg 10 mg PO DAILY #90 tabs 10/12/24 02/06/25 Rx tablet (Farxiga) amoxicillin 500 mg-potassium 1 tablet PO DAILY #60 tabs 11/21/24 02/06/25 Rx clavulanate 125 mg tablet (Augmentin) azelastine 137 mcg (0.1 %) nasal 137 mcg (0.137 mL) intranasal Q12H 12/07/24 02/06/25 Rx spray #30 mL baclofen 10 mg tablet 10 mg PO TID #270 tabs 12/22/24 02/06/25 Rx omeprazole 20 mg capsule,delayed 20 mg PO DAILY #90 caps 12/22/24 02/06/25 Rx release pen needle, diabetic 32 gauge x #100 ea 01/06/25 02/06/25 Rx 5/32 skin block trader adhesive bandage for #8 ea 01/06/25 02/06/25 Rx Freestyle Santiago diclofenac sodium 1 % topical gel 4 g topical QID #300 grams 01/24/25 02/06/25 Rx amoxicillin 875 mg-potassium 1 tablet PO Q12H #1 tablet 02/06/25 02/06/25 Rx clavulanate 125 mg tablet doxycycline hyclate 100 mg capsule 100 mg PO DAILY #2 caps 02/06/25 02/06/25 Rx Allergies Allergy/AdvReac Type Severity Reaction Status Date / Time No Known Drug Allergies Allergy Unknown Unknown Verified 02/02/25 19:47 Vital Signs Vital Signs - 24 hr 02/06/25 16:30 02/06/25 16:30 02/06/25 18:50 Temperature 96.4 F L Pulse Rate 57 L Respiratory Rate 18 Blood Pressure 159/68 H Pulse Oximetry 96 96 96 Oxygen Delivery Room Air Room Air Room Air 02/06/25 20:00 02/06/25 20:51 02/06/25 21:12 Temperature Pulse Rate 59 L 59 L 59 L Respiratory Rate 16 Blood Pressure Pulse Oximetry 94 Oxygen Delivery Room Air 02/07/25 00:00 02/07/25 07:50 Temperature 97.5 F L 97 F L Pulse Rate 59 L 55 L Respiratory Rate 16 18 Blood Pressure 158/70 H 138/65 Pulse Oximetry 95 95 Oxygen Delivery Room Air Room Air Exam Narrative: General: well appearing, appears stated age, HEENT: normocephalic, atraumatic. Mucous membranes moist. EOMI, PERRLA, bilateral sclera anicteric, no conjunctival injection. Neck supple without JVD, lymphadenopathy, or bruit. Respiratory: clear to ascultation bilaterally. No rales/rhonic/wheezes. Cardiovascular: Regular rate and rhythm, normal S1-S2 upon ascultation. No murmurs, rubs, or clicks. PMI is nondisplaced, capillary refill less than 3 second. Abdomen: Obese Soft, round, nondistended and nontender. Bowel sounds present to all four quadrants. Umbical hernia Extremities: No cyanosis, clubbing, Pulses are palpable 2/2. Active ROM to all four extremities. 2+ lower extremity edema Neuro: Alert and orientated x 4. PERRLA. Cranial nerves 2-12 intact without focal deficit. Skin: Warm, dry, and intact, without rash, deep tissue bruising Psych: Normal effect, cooperative H&P: Results Labs Labs: Short CBC 02/07/25 Range/Units 07:55 WBC 4.3 L (4.8-10.8) K/mm3 Hgb 15.3 (12.4-15.3) g/dL Hct 48.4 H (37.0-46.0) % Plt Count 258 (150-420) K/mm3 BMP 02/07/25 07:55 Sodium 140 Potassium 3.9 Chloride 107 Carbon Dioxide 31 H BUN 14 Creatinine 0.98 Glucose 102 Calcium 8.2 L Liver Function 02/07/25 Range/Units 07:55 Total Bilirubin 0.7 (0.2-1.3) mg/dL AST 31 (17-59) U/L ALT 23 (6-50) U/L Alkaline Phosphatase 86 (38-126) U/L Albumin 3.0 L (3.5-5.1) g/dL Assessment and Plan Assessment and plan (1) Weakness: Code(s): R53.1 - Weakness Status: Acute Assessment and Plan: patient had been hospitalized and [facility] and admitted due to fall at home with generalized weakness and pneumonia. initial Traumatic workup was negative for acute injury * PT/OT * Pain management with norco * added bowel regiment due to narcotics and reported constipation (2) Pneumonia: Code(s): J18.9 - Pneumonia, unspecified organism Status: Acute Assessment and Plan: chest x-ray and CT at [facility] with showing suspicion of pneumonia * continued remaining doses of Augmentin and doxycycline to complete therapy (3) Chronic deep vein thrombosis (DVT): Code(s): I82.509 - Chronic embolism and thrombosis of unspecified deep veins of unspecified lower extremity Status: Acute Assessment and Plan: patient on Coumadin for chronic DVT was previously on eliquis but reports had a GI bleed and was taken off * INR 2.8 * current Coumadin dose 6 mg daily * Q3D PTT INR (4) Diabetes mellitus with neuropathy: Qualifiers: Diabetes mellitus snf insulin use: with snf use Diabetes mellitus type: type 2 Qualified Code(s): E11.40 - Type 2 diabetes mellitus with diabetic neuropathy, unspecified; Z79.4 - nursing home (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 Code(s): E11.40 - Type 2 diabetes mellitus with diabetic neuropathy, unspecified Status: Acute Assessment and Plan: patient with chronic history of diabetes but does report he has having episodes of hypoglycemia his long-acting insulin was reduced at [facility] to 32 units from 44 * will resume Lantus at 32 and adjust as needed * high dose SSI * Accu-Cheks a.c. HS * diabetic diet * hypoglycemic protocol (5) Hypertension: Qualifiers: Hypertension type: essential hypertension Qualified Code(s): I10 - Essential (primary) hypertension Code(s): I10 - Essential (primary) hypertension Status: Chronic Assessment and Plan: * BP reviewed and stable * continued patient's metoprolol (6) Hyperlipidemia: Qualifiers: Hyperlipidemia type: mixed hyperlipidemia Qualified Code(s): E78.2 - Mixed hyperlipidemia Code(s): E78.5 - Hyperlipidemia, unspecified Status: Acute Assessment and Plan: * Continue home statin (7) Atrial fibrillation: Code(s): I48.91 - Unspecified atrial fibrillation Status: Acute Assessment and Plan: * continued patient's Coumadin and metoprolol Plan Code status: DNR/DNI Meds only DVT prophylaxis: Coumadin Stress ulcer prophylaxis: Protonix 40 daily PT/OT notes: Swing Bed Disposition: Patient admitted to [facility] swing bed for continued rehab for deconditioned state after hospitalization for fall and pneumonia with generalized weakness plan is to return home at discharge. Quality VTE Prophylaxis VTE prophylaxis: pharmacologic ordered -Patient's previous records reviewed on admission -ER notes reviewed in detail on admission -discussed all findings and current treatment plan with patient/Family/POA -Consultations reviewed for recommendations -Patient's disposition for safe discharge discussed with block and case maker Dictation performed by [employer] direct speech recognition software, therefore clerk secretary variants and typographical errors may occur. Hospitalist MIPS Advance Care Plan I have confirmed that the patient's Advanced Care Plan is present, code status is documented, or surrogate decision maker is listed in patient medical record.: Yes Medication Reconciliation I have utilized all available resources to obtain, update and review the patients current medications (includes all prescriptions, OTC, herbals, cannabis, and nutritional supplements).: Yes The patient is not eligible for med reconciliation; the patient is in a emergent medical situation where delaying treatment would jeopardize the patients health.: No
[2025-02-07] MEDS: PREGABALIN (*CRX) 50 MG CAPSULE 150 MG PO ×3 (09:10→16:57)
[2025-02-07] MEDS: TAMSULOSIN HCL 0.4 MG CAPSULE 0.8 MG PO (09:11)
[2025-02-07] MEDS: PANTOPRAZOLE 40 MG TABLET PO (09:11)
[2025-02-07] MEDS: METOPROLOL TARTRATE 12.5 MG TABLET PO ×2 (09:11→21:24)
[2025-02-07] MEDS: BACLOFEN 10 MG TABLET PO ×3 (09:11→16:59)
[2025-02-07] MEDS: ATORVASTATIN 10 MG TABLET 20 MG PO (09:11)
[2025-02-07] MEDS: CHOLECALCIFEROL (VITAMIN D3) 25 MCG (1,000 UNITS) TABLET 50 MCG PO (09:11)
[2025-02-07] MEDS: FUROSEMIDE 20 MG TABLET PO (09:11)
[2025-02-07] MEDS: DOXYCYCLINE HYCLATE 100 MG TABLET PO (09:12)
[2025-02-07] MEDS: LORATADINE 10 MG TABLET PO (09:12)
[2025-02-07] MEDS: EMPAGLIFLOZIN 25 MG TABLET PO (09:12)
[2025-02-07] MEDS: SACCHAROMYCES BOULARDII 250 MG CAPSULE PO ×3 (09:12→16:58)
[2025-02-07] MEDS: FLECAINIDE ACETATE 50 MG TABLET PO ×2 (09:12→21:28)
[2025-02-07] MEDS: AZELASTINE HCL NASAL 0.1% 137 MCG/SPR 30 ML BTL 2 SPRAY NASAL ×2 (09:13→21:29)
[2025-02-07] MEDS: WARFARIN (*PBKC) 2 MG TABLET 6 MG PO (16:58)
[2025-02-07] MEDS: DICLOFENAC SODIUM 1% 100 GM GEL (*BKC) 4 APPLIC TOPICAL (16:58)
[2025-02-07] MEDS: INSULIN GLARGINE (*BKC) 1,000 UNITS/10 ML VIAL 32 UNITS SUB-Q (21:40)
[2025-02-07] MEDS: HYDROcodone/acetaminophen (*CRX) 5-325 MG TABLET 1 TAB PO (23:47)
[2025-02-08] MEDS: LEVOTHYROXINE SODIUM 50 MCG TABLET PO (05:59)
[2025-02-08 06:01] LABS: INR 2.4; Prothrombin Time 24.1 Seconds (9.50-12.1)
[2025-02-08 08:00] VITALS: BP 152/67; PULSE 61; RESP 16; TEMP 36; O2SAT 97
[2025-02-08] MEDS: BACLOFEN 10 MG TABLET PO ×3 (09:28→16:50)
[2025-02-08] MEDS: ATORVASTATIN 10 MG TABLET 20 MG PO (09:28)
[2025-02-08 09:29] VITALS: PULSE 86
[2025-02-08] MEDS: EMPAGLIFLOZIN 25 MG TABLET PO (09:29)
[2025-02-08] MEDS: CHOLECALCIFEROL (VITAMIN D3) 25 MCG (1,000 UNITS) TABLET 50 MCG PO (09:29)
[2025-02-08] MEDS: FUROSEMIDE 20 MG TABLET PO (09:29)
[2025-02-08] MEDS: SACCHAROMYCES BOULARDII 250 MG CAPSULE PO ×3 (09:29→16:50)
[2025-02-08] MEDS: TAMSULOSIN HCL 0.4 MG CAPSULE 0.8 MG PO (09:29)
[2025-02-08] MEDS: PREGABALIN (*CRX) 50 MG CAPSULE 150 MG PO ×3 (09:29→16:50)
[2025-02-08] MEDS: DOXYCYCLINE HYCLATE 100 MG TABLET PO (09:29)
[2025-02-08] MEDS: AZELASTINE HCL NASAL 0.1% 137 MCG/SPR 30 ML BTL 2 SPRAY NASAL ×2 (09:29→20:13)
[2025-02-08] MEDS: FLUTICASONE/UMECLIDIN/VILANTER 100-62.5-25 MCG ELLIPTA 1 PUFF INHALATION (09:29)
[2025-02-08] MEDS: PANTOPRAZOLE 40 MG TABLET PO (09:29)
[2025-02-08] MEDS: FLECAINIDE ACETATE 50 MG TABLET PO ×2 (09:29→20:11)
[2025-02-08 09:30] VITALS: PULSE 86
[2025-02-08] MEDS: METOPROLOL TARTRATE 12.5 MG TABLET PO (09:30)
[2025-02-08] MEDS: LORATADINE 10 MG TABLET PO (09:30)
[2025-02-08] MEDS: TRIAMCINOLONE ACET 0.1% CREAM 15 GM TUBE 1 APPLIC TOPICAL ×2 (09:30→16:50)
[2025-02-08 16:00] VITALS: BP 136/70; PULSE 60; RESP 17; TEMP 36; O2SAT 96
[2025-02-08] MEDS: DICLOFENAC SODIUM 1% 100 GM GEL (*BKC) 4 APPLIC TOPICAL (16:50)
[2025-02-08] MEDS: WARFARIN (*PBKC) 2 MG TABLET 6 MG PO (17:37)
--- NOTE | 2025-02-08 18:45 | PC.NURSE ---
ASSUMED CARE. REPORT RECEIVED FROM JEFF CALLEJAS
--- NOTE | 2025-02-08 19:12 | PC.NURSE ---
PATIENT AMBULATED FROM CHAIR TO BED WITH WALKER. STEADY GAIT. HAD TO REMIND PATIENT TO STAND UP STRAIGHT W WALKER. CALL LIGHT NOW IN REACH
[2025-02-08 20:11] VITALS: PULSE 57
[2025-02-08] MEDS: SENNA/DOCUSATE SODIUM TABLET 1 TAB PO (20:12)
[2025-02-08] MEDS: INSULIN GLARGINE (*BKC) 1,000 UNITS/10 ML VIAL 32 UNITS SUB-Q (20:16)
[2025-02-08 21:00] VITALS: PULSE 57
[2025-02-09] VITALS (8 sets, daily range): BP systolic 149–150; BP diastolic 63–84; PULSE 57–94; RESP 16–18; TEMP 35.9–36.6; O2SAT 93–94
[2025-02-09 05:43] LABS: INR 2.8; Prothrombin Time 28.2 Seconds (9.50-12.1)
[2025-02-09] MEDS: LEVOTHYROXINE SODIUM 50 MCG TABLET PO (06:11)
[2025-02-09] MEDS: AZELASTINE HCL NASAL 0.1% 137 MCG/SPR 30 ML BTL 2 SPRAY NASAL ×2 (08:47→20:15)
[2025-02-09] MEDS: FLUTICASONE/UMECLIDIN/VILANTER 100-62.5-25 MCG ELLIPTA 1 PUFF INHALATION (08:49)
[2025-02-09] MEDS: METOPROLOL TARTRATE 12.5 MG TABLET PO ×2 (08:50→20:16)
[2025-02-09] MEDS: TAMSULOSIN HCL 0.4 MG CAPSULE 0.8 MG PO (08:51)
[2025-02-09] MEDS: PANTOPRAZOLE 40 MG TABLET PO (08:51)
[2025-02-09] MEDS: ATORVASTATIN 10 MG TABLET 20 MG PO (08:51)
[2025-02-09] MEDS: PREGABALIN (*CRX) 50 MG CAPSULE 150 MG PO ×3 (08:51→18:06)
[2025-02-09] MEDS: CHOLECALCIFEROL (VITAMIN D3) 25 MCG (1,000 UNITS) TABLET 50 MCG PO (08:51)
[2025-02-09] MEDS: BACLOFEN 10 MG TABLET PO ×3 (08:52→18:06)
[2025-02-09] MEDS: FUROSEMIDE 20 MG TABLET PO (08:52)
[2025-02-09] MEDS: FLECAINIDE ACETATE 50 MG TABLET PO ×2 (08:52→20:15)
[2025-02-09] MEDS: SACCHAROMYCES BOULARDII 250 MG CAPSULE PO ×3 (08:52→18:10)
[2025-02-09] MEDS: EMPAGLIFLOZIN 25 MG TABLET PO (08:52)
[2025-02-09] MEDS: LORATADINE 10 MG TABLET PO (08:52)
[2025-02-09] MEDS: TRIAMCINOLONE ACET 0.1% CREAM 15 GM TUBE 1 APPLIC TOPICAL ×2 (08:53→18:07)
[2025-02-09] MEDS: WARFARIN (*PBKC) 2 MG TABLET 6 MG PO (18:05)
[2025-02-09] MEDS: DICLOFENAC SODIUM 1% 100 GM GEL (*BKC) 4 APPLIC TOPICAL (18:06)
[2025-02-09] MEDS: HYDROcodone/acetaminophen (*CRX) 5-325 MG TABLET 1 TAB PO (20:16)
[2025-02-09] MEDS: SENNA/DOCUSATE SODIUM TABLET 1 TAB PO (20:16)
[2025-02-09] MEDS: INSULIN GLARGINE (*BKC) 1,000 UNITS/10 ML VIAL 32 UNITS SUB-Q (20:20)
[2025-02-10] VITALS (7 sets, daily range): BP systolic 114–162; BP diastolic 58–78; PULSE 58–84; RESP 18–20; TEMP 36.1–36.6; O2SAT 94–96
[2025-02-10] MEDS: ACETAMINOPHEN 325 MG TABLET 650 MG PO (00:21)
--- NOTE | 2025-02-10 01:16 | PC.NURSE ---
Patient c/o insomnia, no PRN sleep medication available, david
--- NOTE | 2025-02-10 01:17 | PC.NURSE ---
Patient c/o insomnia, no PRN sleep medications available, patient amenable to taking Tylenol for generalized discomfort. Will update OVERCOILER tomorrow, when available d/t non-urgent nature.
[2025-02-10] MEDS: LEVOTHYROXINE SODIUM 50 MCG TABLET PO (05:43)
[2025-02-10 06:03] LABS: INR 3.4; Prothrombin Time 33.0 Seconds (9.50-12.1)
[2025-02-10] MEDS: AZELASTINE HCL NASAL 0.1% 137 MCG/SPR 30 ML BTL 2 SPRAY NASAL ×2 (09:07→20:38)
[2025-02-10] MEDS: SACCHAROMYCES BOULARDII 250 MG CAPSULE PO ×3 (09:08→17:02)
[2025-02-10] MEDS: FLECAINIDE ACETATE 50 MG TABLET PO ×2 (09:08→20:38)
[2025-02-10] MEDS: METOPROLOL TARTRATE 12.5 MG TABLET PO (09:09)
[2025-02-10] MEDS: CHOLECALCIFEROL (VITAMIN D3) 25 MCG (1,000 UNITS) TABLET 50 MCG PO (09:09)
[2025-02-10] MEDS: PREGABALIN (*CRX) 50 MG CAPSULE 150 MG PO ×3 (09:09→17:01)
[2025-02-10] MEDS: TAMSULOSIN HCL 0.4 MG CAPSULE 0.8 MG PO (09:09)
[2025-02-10] MEDS: FLUTICASONE/UMECLIDIN/VILANTER 100-62.5-25 MCG ELLIPTA 1 PUFF INHALATION (09:10)
[2025-02-10] MEDS: EMPAGLIFLOZIN 25 MG TABLET PO (09:10)
[2025-02-10] MEDS: ATORVASTATIN 10 MG TABLET 20 MG PO (09:10)
[2025-02-10] MEDS: PANTOPRAZOLE 40 MG TABLET PO (09:11)
[2025-02-10] MEDS: BACLOFEN 10 MG TABLET PO ×3 (09:11→17:02)
[2025-02-10] MEDS: LORATADINE 10 MG TABLET PO (09:11)
[2025-02-10] MEDS: FUROSEMIDE 20 MG TABLET PO (09:17)
[2025-02-10] MEDS: WARFARIN (*PBKC) 2 MG TABLET 6 MG PO (17:02)
[2025-02-10] MEDS: DICLOFENAC SODIUM 1% 100 GM GEL (*BKC) 4 APPLIC TOPICAL (17:06)
[2025-02-10] MEDS: TRIAMCINOLONE ACET 0.1% CREAM 15 GM TUBE 1 APPLIC TOPICAL (17:07)
[2025-02-10] MEDS: SENNA/DOCUSATE SODIUM TABLET 1 TAB PO (20:39)
[2025-02-10] MEDS: HYDROcodone/acetaminophen (*CRX) 5-325 MG TABLET 1 TAB PO (20:39)
[2025-02-10] MEDS: INSULIN GLARGINE (*BKC) 1,000 UNITS/10 ML VIAL 32 UNITS SUB-Q (20:40)
[2025-02-11] VITALS (7 sets, daily range): BP systolic 133–160; BP diastolic 63–68; PULSE 56–78; RESP 17–18; TEMP 36–36.5; O2SAT 94–99
[2025-02-11 05:27] LABS: INR 3.5; Prothrombin Time 34.5 Seconds (9.50-12.1)
[2025-02-11] MEDS: LEVOTHYROXINE SODIUM 50 MCG TABLET PO (06:49)
[2025-02-11] MEDS: TAMSULOSIN HCL 0.4 MG CAPSULE 0.8 MG PO (09:03)
[2025-02-11] MEDS: METOPROLOL TARTRATE 12.5 MG TABLET PO ×2 (09:03→20:22)
[2025-02-11] MEDS: LORATADINE 10 MG TABLET PO (09:03)
[2025-02-11] MEDS: CHOLECALCIFEROL (VITAMIN D3) 25 MCG (1,000 UNITS) TABLET 50 MCG PO (09:03)
[2025-02-11] MEDS: BACLOFEN 10 MG TABLET PO ×3 (09:04→17:05)
[2025-02-11] MEDS: PANTOPRAZOLE 40 MG TABLET PO (09:04)
[2025-02-11] MEDS: FLECAINIDE ACETATE 50 MG TABLET PO ×2 (09:04→20:22)
[2025-02-11] MEDS: EMPAGLIFLOZIN 25 MG TABLET PO (09:04)
[2025-02-11] MEDS: SACCHAROMYCES BOULARDII 250 MG CAPSULE PO ×3 (09:04→17:05)
[2025-02-11] MEDS: AZELASTINE HCL NASAL 0.1% 137 MCG/SPR 30 ML BTL 2 SPRAY NASAL ×2 (09:04→20:23)
[2025-02-11] MEDS: FUROSEMIDE 20 MG TABLET PO (09:04)
[2025-02-11] MEDS: PREGABALIN (*CRX) 50 MG CAPSULE 150 MG PO ×3 (09:04→17:05)
[2025-02-11] MEDS: ATORVASTATIN 10 MG TABLET 20 MG PO (09:04)
[2025-02-11] MEDS: FLUTICASONE/UMECLIDIN/VILANTER 100-62.5-25 MCG ELLIPTA 1 PUFF INHALATION (09:05)
[2025-02-11] MEDS: TRIAMCINOLONE ACET 0.1% CREAM 15 GM TUBE 1 APPLIC TOPICAL (09:05)
[2025-02-11] MEDS: WARFARIN (*PBKC) 2 MG TABLET 6 MG PO (17:05)
[2025-02-11] MEDS: DICLOFENAC SODIUM 1% 100 GM GEL (*BKC) 4 APPLIC TOPICAL (17:08)
[2025-02-11] MEDS: SENNA/DOCUSATE SODIUM TABLET 1 TAB PO (20:22)
[2025-02-11] MEDS: HYDROcodone/acetaminophen (*CRX) 5-325 MG TABLET 1 TAB PO (20:23)
[2025-02-11] MEDS: INSULIN GLARGINE (*BKC) 1,000 UNITS/10 ML VIAL 32 UNITS SUB-Q (20:25)
[2025-02-12] VITALS (8 sets, daily range): BP systolic 142–147; BP diastolic 55–70; PULSE 53–58; RESP 17; TEMP 35.7–36.4; O2SAT 93–96
[2025-02-12 05:41] LABS: INR 3.7; Prothrombin Time 36.2 Seconds (9.50-12.1)
[2025-02-12] MEDS: LEVOTHYROXINE SODIUM 50 MCG TABLET PO (06:02)
[2025-02-12] MEDS: PREGABALIN (*CRX) 50 MG CAPSULE 150 MG PO ×3 (09:16→17:29)
[2025-02-12] MEDS: METOPROLOL TARTRATE 12.5 MG TABLET PO ×2 (09:16→20:55)
[2025-02-12] MEDS: CHOLECALCIFEROL (VITAMIN D3) 25 MCG (1,000 UNITS) TABLET 50 MCG PO (09:16)
[2025-02-12] MEDS: FLUTICASONE/UMECLIDIN/VILANTER 100-62.5-25 MCG ELLIPTA 1 PUFF INHALATION (09:16)
[2025-02-12] MEDS: FUROSEMIDE 20 MG TABLET PO (09:17)
[2025-02-12] MEDS: LORATADINE 10 MG TABLET PO (09:17)
[2025-02-12] MEDS: SACCHAROMYCES BOULARDII 250 MG CAPSULE PO ×3 (09:17→17:29)
[2025-02-12] MEDS: FLECAINIDE ACETATE 50 MG TABLET PO ×2 (09:17→20:54)
[2025-02-12] MEDS: PANTOPRAZOLE 40 MG TABLET PO (09:17)
[2025-02-12] MEDS: EMPAGLIFLOZIN 25 MG TABLET PO (09:17)
[2025-02-12] MEDS: BACLOFEN 10 MG TABLET PO ×3 (09:17→17:30)
[2025-02-12] MEDS: TAMSULOSIN HCL 0.4 MG CAPSULE 0.8 MG PO (09:17)
[2025-02-12] MEDS: ATORVASTATIN 10 MG TABLET 20 MG PO (09:17)
[2025-02-12] MEDS: TRIAMCINOLONE ACET 0.1% CREAM 15 GM TUBE 1 APPLIC TOPICAL (09:18)
[2025-02-12] MEDS: AZELASTINE HCL NASAL 0.1% 137 MCG/SPR 30 ML BTL 2 SPRAY NASAL ×2 (09:18→20:54)
[2025-02-12] MEDS: DICLOFENAC SODIUM 1% 100 GM GEL (*BKC) 4 APPLIC TOPICAL (17:56)
[2025-02-12] MEDS: MELATONIN 5 MG TABLET PO (20:55)
[2025-02-12] MEDS: SENNA/DOCUSATE SODIUM TABLET 1 TAB PO (20:55)
[2025-02-12] MEDS: INSULIN GLARGINE (*BKC) 1,000 UNITS/10 ML VIAL 32 UNITS SUB-Q (20:57)
--- NOTE | 2025-02-12 21:08 | PC.NURSE ---
Patient declines meat sandwich at HS, is agreeable to no sugar added ice cream
[2025-02-13] VITALS (7 sets, daily range): BP systolic 137–161; BP diastolic 69–76; PULSE 54–57; RESP 16–18; TEMP 35.6–36.4; O2SAT 92–97
[2025-02-13] MEDS: LEVOTHYROXINE SODIUM 50 MCG TABLET PO (05:42)
[2025-02-13 05:48] LABS: INR 3.4; Prothrombin Time 33.8 Seconds (9.50-12.1)
[2025-02-13] MEDS: CHOLECALCIFEROL (VITAMIN D3) 25 MCG (1,000 UNITS) TABLET 50 MCG PO (08:26)
[2025-02-13] MEDS: SACCHAROMYCES BOULARDII 250 MG CAPSULE PO ×3 (08:26→17:38)
[2025-02-13] MEDS: EMPAGLIFLOZIN 25 MG TABLET PO (08:27)
[2025-02-13] MEDS: TAMSULOSIN HCL 0.4 MG CAPSULE 0.8 MG PO (08:27)
[2025-02-13] MEDS: PANTOPRAZOLE 40 MG TABLET PO (08:27)
[2025-02-13] MEDS: PREGABALIN (*CRX) 50 MG CAPSULE 150 MG PO ×3 (08:27→17:39)
[2025-02-13] MEDS: METOPROLOL TARTRATE 12.5 MG TABLET PO ×2 (08:29→20:01)
[2025-02-13] MEDS: FUROSEMIDE 20 MG TABLET PO (08:29)
[2025-02-13] MEDS: LORATADINE 10 MG TABLET PO (08:30)
[2025-02-13] MEDS: ATORVASTATIN 10 MG TABLET 20 MG PO (08:30)
[2025-02-13] MEDS: BACLOFEN 10 MG TABLET PO ×3 (08:31→17:39)
[2025-02-13] MEDS: FLECAINIDE ACETATE 50 MG TABLET PO ×2 (08:31→20:01)
[2025-02-13] MEDS: FLUTICASONE/UMECLIDIN/VILANTER 100-62.5-25 MCG ELLIPTA 1 PUFF INHALATION (08:34)
[2025-02-13] MEDS: AZELASTINE HCL NASAL 0.1% 137 MCG/SPR 30 ML BTL 2 SPRAY NASAL ×2 (08:37→20:06)
[2025-02-13] MEDS: TRIAMCINOLONE ACET 0.1% CREAM 15 GM TUBE 1 APPLIC TOPICAL ×2 (08:37→17:41)
--- NOTE | 2025-02-13 10:23 | PC.NURSE ---
Therapy observed patient muscle shaking upon waking. Nurse observed this also. VS BP 149/64, P54, R16, SPO2 96% room air, R 16. Cyanosis noted to nail beds and poor capillary refill noted. As patient became more awake, symptoms subsided. GRAIN GRADER notified, and charge nurse also notified. Patient has no c/o at this time. Episode lasted less than 5 minutes.
[2025-02-13] MEDS: DICLOFENAC SODIUM 1% 100 GM GEL (*BKC) 4 APPLIC TOPICAL (17:40)
[2025-02-13] MEDS: SENNA/DOCUSATE SODIUM TABLET 1 TAB PO (20:01)
[2025-02-13] MEDS: MELATONIN 5 MG TABLET PO (20:01)
[2025-02-13] MEDS: INSULIN GLARGINE (*BKC) 1,000 UNITS/10 ML VIAL 32 UNITS SUB-Q (20:01)
[2025-02-14] VITALS (7 sets, daily range): BP systolic 136–156; BP diastolic 73–77; PULSE 51–56; RESP 16–17; TEMP 35.5–36.4; O2SAT 93–98
[2025-02-14 06:04] LABS: INR 2.2; Prothrombin Time 22.4 Seconds (9.50-12.1)
[2025-02-14] MEDS: LEVOTHYROXINE SODIUM 50 MCG TABLET PO (06:10)
[2025-02-14] MEDS: ATORVASTATIN 10 MG TABLET 20 MG PO (08:17)
[2025-02-14] MEDS: LORATADINE 10 MG TABLET PO (08:18)
[2025-02-14] MEDS: CHOLECALCIFEROL (VITAMIN D3) 25 MCG (1,000 UNITS) TABLET 50 MCG PO (08:18)
[2025-02-14] MEDS: EMPAGLIFLOZIN 25 MG TABLET PO (08:18)
[2025-02-14] MEDS: PREGABALIN (*CRX) 50 MG CAPSULE 150 MG PO ×3 (08:19→16:36)
[2025-02-14] MEDS: FLECAINIDE ACETATE 50 MG TABLET PO ×2 (08:19→20:02)
[2025-02-14] MEDS: TAMSULOSIN HCL 0.4 MG CAPSULE 0.8 MG PO (08:20)
[2025-02-14] MEDS: METOPROLOL TARTRATE 12.5 MG TABLET PO ×2 (08:20→20:02)
[2025-02-14] MEDS: BACLOFEN 10 MG TABLET PO ×3 (08:20→16:37)
[2025-02-14] MEDS: FUROSEMIDE 20 MG TABLET PO (08:21)
[2025-02-14] MEDS: SACCHAROMYCES BOULARDII 250 MG CAPSULE PO ×3 (08:21→16:36)
[2025-02-14] MEDS: FLUTICASONE/UMECLIDIN/VILANTER 100-62.5-25 MCG ELLIPTA 1 PUFF INHALATION (08:23)
[2025-02-14] MEDS: TRIAMCINOLONE ACET 0.1% CREAM 15 GM TUBE 1 APPLIC TOPICAL (08:25)
[2025-02-14] MEDS: AZELASTINE HCL NASAL 0.1% 137 MCG/SPR 30 ML BTL 2 SPRAY NASAL ×2 (08:26→20:02)
[2025-02-14] MEDS: PANTOPRAZOLE 40 MG TABLET PO (08:52)
[2025-02-14 09:20] LABS: Hematocrit 50.5 % (37.0-46.0); Hemoglobin 15.7 g/dL (12.4-15.3); Mean Corpuscular HGB Conc 31.1 g/dL (32-36); Mean Corpuscular Hemoglobin 26.7 pg (27.0-31.0); Mean Corpuscular Volume 86.0 fL (78.0-102.0); Platelet Count Result 304 K/mm3 (150-420); Red Blood Count 5.87 M/mm3 (4.70-6.10); White Blood Count 5.9 K/mm3 (4.8-10.8)
--- NOTE | 2025-02-14 09:25 | PC.NURSE ---
Patient accurate temperature is 97.5
[2025-02-14 09:32] LABS: Alanine Aminotransferase 26 U/L (6-50); Albumin Level 3.3 g/dL (3.5-5.1); Alkaline Phosphatase 105 U/L (38-126); Anion Gap 4 mmol/L (4-12); Aspartate Amino Transferase 30 U/L (17-59); Bilirubin,Total 0.9 mg/dL (0.2-1.3); Blood Urea Nitrogen 18 mg/dL (9-20); Calcium 8.5 mg/dL (8.4-10.2); Carbon Dioxide 31 mmol/L (22-30); Chloride 105 mmol/L (98-107); Estimated CRCL calculation 72 ml/min; Estimated Glomerular Filt Rate > 60; Glucose 192 mg/dL (65-110); Magnesium 2.1 mg/dL (1.6-2.3); Osmolality Calculated 296 mOsm/kg (285-295); Sodium 140 mmol/L (137-145); Total Protein 6.4 g/dL (6.3-8.2)
--- NOTE | 2025-02-14 09:36 | P.PNIM_ITS ---
Progress Note: A&P Assessment and Plan (1) Weakness: Code(s): R53.1 - Weakness Status: Acute Assessment and Plan: patient had been hospitalized and [facility] and admitted due to fall at home with generalized weakness and pneumonia. initial Traumatic workup was negative for acute injury * PT/OT * Pain management with norco * added bowel regiment due to narcotics and reported constipation (2) Chronic deep vein thrombosis (DVT): Code(s): I82.509 - Chronic embolism and thrombosis of unspecified deep veins of unspecified lower extremity Status: Acute Assessment and Plan: patient on Coumadin for chronic DVT was previously on eliquis but reports had a GI bleed and was taken off * INR 2.6 * current Coumadin dose 6 mg daily * Q3D PTT INR (3) Diabetes mellitus with neuropathy: Qualifiers: Diabetes mellitus type: type 2 Diabetes mellitus long-term insulin use: with long-term use Qualified Code(s): E11.40 - Type 2 diabetes mellitus with diabetic neuropathy, unspecified; Z79.4 - FDC (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 Code(s): E11.40 - Type 2 diabetes mellitus with diabetic neuropathy, unspecified Status: Acute Assessment and Plan: patient with chronic history of diabetes but does report he has having episodes of hypoglycemia his long-acting insulin was reduced at [facility] to 32 units from 44 * will resume Lantus at 32 and adjust as needed * high dose SSI * Accu-Cheks a.c. HS * diabetic diet * hypoglycemic protocol (4) Hypertension: Qualifiers: Hypertension type: essential hypertension Qualified Code(s): I10 - Essential (primary) hypertension Code(s): I10 - Essential (primary) hypertension Status: Chronic Assessment and Plan: * BP reviewed and stable * continued patient's metoprolol (5) Hyperlipidemia: Qualifiers: Hyperlipidemia type: mixed hyperlipidemia Qualified Code(s): E78.2 - Mixed hyperlipidemia Code(s): E78.5 - Hyperlipidemia, unspecified Status: Acute Assessment and Plan: * Continue home statin (6) Atrial fibrillation: Code(s): I48.91 - Unspecified atrial fibrillation Status: Acute Assessment and Plan: * continued patient's Coumadin and metoprolol (7) Pneumonia: Code(s): J18.9 - Pneumonia, unspecified organism Status: Resolved Assessment and Plan: chest x-ray and CT at [facility] with showing suspicion of pneumonia * continued remaining doses of Augmentin and doxycycline to complete therapy RESOLVED Plan Code status: DNR/DNI Meds only DVT prophylaxis: Coumadin Stress ulcer prophylaxis: Protonix 40 daily PT/OT notes: Swing Bed Disposition: Patient admitted to [facility] for continued rehab for deconditioned state after hospitalization for fall and pneumonia with generalized weakness plan is to return home at discharge. Progressing as expected. Time Spent With Patient Time with patient: 15 - 25 minutes Subjective Date/time seen: 02/14/25 09:36 Interval history: Patient is an 84-year-old male admitted to [facility] for continued rehabilitation following hospitalization due to fall, unsteady gait and weakness 02/14/2025: patient up in chair currently with no complaints or acute distress denied any chest pain or shortness for breath. labs reviewed unremarkable and vital stable INR was in desired range will continue with current Coumadin dosage. patient progressing well with physical and occupational therapy. Review of Systems Review of Systems: 12 systems were reviewed and are negativ e except for as per HPI. All systems reviewed & are unremarkable except as noted in HPI and below Exam Narrative: General: well appearing, appears stated age, HEENT: normocephalic, atraumatic. Mucous membranes moist. EOMI, PERRLA, bilateral sclera anicteric, no conjunctival injection. Neck supple without JVD, lymphadenopathy, or bruit. Respiratory: clear to ascultation bilaterally. No rales/rhonic/wheezes. Cardiovascular: Regular rate and rhythm, normal S1-S2 upon ascultation. No murmurs, rubs, or clicks. PMI is nondisplaced, capillary refill less than 3 second. Abdomen: Obese Soft, round, nondistended and nontender. Bowel sounds present to all four quadrants. Umbical hernia Extremities: No cyanosis, clubbing, Pulses are palpable 2/2. Active ROM to all four extremities. 2+ lower extremity edema Neuro: Alert and orientated x 4. PERRLA. Cranial nerves 2-12 intact without focal deficit. Skin: Warm, dry, and intact, without rash, deep tissue bruising Psych: Normal effect, cooperative Objective Data Vital Signs Vital Signs: Vital Signs - 24 hr 02/13/25 16:00 02/13/25 20:00 02/13/25 20:01 Temperature 97.0 F L Pulse Rate 56 L 54 L 54 L Respiratory Rate 16 16 Blood Pressure 161/76 H Pulse Oximetry 97 97 Oxygen Delivery Room Air Room Air 02/13/25 20:01 02/14/25 00:00 02/14/25 07:58 Temperature 97.0 F L 95.9 F L Pulse Rate 54 L 54 L 51 L Respiratory Rate 17 16 Blood Pressure 136/77 137/77 Pulse Oximetry 95 93 Oxygen Delivery Room Air Room Air 02/14/25 08:19 02/14/25 08:20 Temperature Pulse Rate 51 L 51 L Respiratory Rate Blood Pressure Pulse Oximetry Oxygen Delivery Intake/Output Intake/Output: Intake & Output 02/11/25 02/12/25 02/13/25 02/14/25 23:59 23:59 23:59 23:59 Intake Total 1950 1700 1490 880 Output Total 1100 1750 2025 1000 Balance 850 -50 -535 -120 Meds/Results Medications: Active Medications Generic Name Dose Route Start Last Admin Trade Name Freq PRN Reason Stop Dose Admin Acetaminophen 650 mg 02/06/25 18:44 02/10/25 00:21 Acetaminophen 325 Mg Tablet PO 650 mg Q12H PRN Administration pain 1-4 Hydrocodone Bitart/Acetaminophen 1 tab 02/07/25 05:33 02/11/25 20:23 Hydrocodone/Acetaminophen (*Crx) 5-325 Mg Tablet PO 1 tab Q6H PRN Administration Pain Rated 6 or Greater Artificial Tears 1 drop 02/13/25 09:00 Artificial Tears Ophth Soln 15 Ml Bottle EACH EYE QID PRN Dry Eye(s) Atorvastatin Calcium 20 mg 02/07/25 09:00 02/14/25 08:17 Atorvastatin 10 Mg Tablet PO 20 mg DAILY UADELIA Administration Azelastine HCl 2 spray 02/06/25 21:00 02/14/25 08:26 Azelastine Hcl Nasal 0.1% 137 Mcg/Spr 30 Ml Btl NASAL 2 spray Q12HR AUDELIA Administration Baclofen 10 mg 02/06/25 19:05 02/14/25 08:20 Baclofen 10 Mg Tablet PO 10 mg TID AUDELIA Administration Dextrose 12.5 gm 02/06/25 18:48 Dextrose 50% 25 Gm/50 Ml Syringe IV PUSH PRN PRN Hypoglycemia Protocol Diclofenac Sodium 4 applic 02/07/25 17:00 02/13/25 17:40 Diclofenac Sodium 1% 100 Gm Gel (*Bkc) TOPICAL 4 applic DAILY@1700 AUDELIA Administration Empagliflozin 25 mg 02/07/25 09:00 02/14/25 08:18 Empagliflozin 25 Mg Tablet PO 25 mg DAILY AUDELIA Administration Flecainide Acetate 50 mg 02/06/25 21:00 02/14/25 08:19 Flecainide Acetate 50 Mg Tablet PO 50 mg Q12H AUDELIA Administration Fluticasone/Umeclidinium/Vilanterol 1 puff 02/08/25 09:00 02/14/25 08:23 Fluticasone/Umeclidin/Vilanter 100-62.5-25 Mcg Ellipta INHALATION 1 puff DAILY AUDELIA Administration Furosemide 20 mg 02/07/25 09:00 02/14/25 08:21 Furosemide 20 Mg Tablet PO 20 mg DAILY AUDELIA Administration Glucagon 1 mg 02/06/25 18:48 Glucagon For Inj 1 Mg Vial IM PRN PRN Hypoglycemia Protocol Glucose 15 gm 02/06/25 18:48 Glucose Oral Gel 15 Gm Of Glucse In 37.5 Gm Tube PO PRN PRN Hypoglycemia Protocol Dextrose 1,000 mls @ 100 mls/hr 02/06/25 18:48 Dextrose 5% 1,000 Ml IVPB PRN PRN Hypoglycemia Protocol Insulin Glargine 32 units 02/07/25 21:00 02/13/25 20:01 Insulin Glargine (*Bkc) 1,000 Units/10 Ml Vial SUB-Q 32 units HS AUDELIA Administration Insulin Human Lispro 4 - 8 units 02/07/25 08:00 02/14/25 08:22 Insulin Human Lispro (*Bkc) 1,000 Units/10 Ml Vial SUB-Q Not Given [facility] Protocol Levothyroxine Sodium 50 mcg 02/07/25 06:30 02/14/25 06:10 Levothyroxine Sodium 50 Mcg Tablet PO 50 mcg DAILY@0630 AUDELIA Administration Loratadine 10 mg 02/07/25 09:00 02/14/25 08:18 Loratadine 10 Mg Tablet PO 10 mg DAILY AUDELIA Administration Melatonin 5 mg 02/12/25 21:00 02/13/25 20:01 Melatonin 5 Mg Tablet PO 5 mg HS AUDELIA Administration Metoprolol Tartrate 12.5 mg 02/06/25 21:00 02/14/25 08:20 Metoprolol Tartrate 12.5 Mg Tablet PO 12.5 mg Q12HR AUDELIA Administration Pantoprazole Sodium 40 mg 02/07/25 09:00 02/14/25 08:52 Pantoprazole 40 Mg Tablet PO 40 mg QAM AUDELIA Administration Polyethylene Glycol 17 gm 02/07/25 09:30 02/14/25 08:25 Polyethylene Glycol 3350 17 Gm Powd.Pack PO 17 gm QAM AUDELIA Administration Pregabalin 150 mg 02/06/25 19:10 02/14/25 08:19 Pregabalin (*Crx) 50 Mg Capsule PO 150 mg TID AUDELIA Administration Saccharomyces Boulardii 250 mg 02/06/25 19:10 02/14/25 08:21 Saccharomyces Boulardii 250 Mg Capsule PO 250 mg TID AUDELIA Administration Senna/Docusate Sodium 1 tab 02/07/25 21:00 02/13/25 20:01 Senna/Docusate Sodium Tablet PO 1 tab HS AUDELIA Administration Tamsulosin HCl 0.8 mg 02/07/25 09:00 02/14/25 08:20 Tamsulosin Hcl 0.4 Mg Capsule PO 0.8 mg DAILY AUDELIA Administration Triamcinolone Acetonide 1 applic 02/07/25 09:00 02/14/25 08:25 Triamcinolone Acet 0.1% Cream 15 Gm Tube TOPICAL 1 applic BID AUDELIA Administration Vitamin D 50 mcg 02/07/25 09:00 02/14/25 08:18 Cholecalciferol (Vitamin D3) 25 Mcg (1,000 Units) Tablet PO 50 mcg DAILY AUDELIA Administration Warfarin Sodium 6 mg 02/06/25 19:10 02/11/25 17:05 Warfarin (*Pbkc) 2 Mg Tablet PO 6 mg DAILY@1700 AUDELIA Administration Labs Labs: Laboratory Results - last 24 hr 02/13/25 02/13/25 02/13/25 11:35 16:21 19:44 WBC RBC Hgb Hct MCV MCH MCHC RDW Plt Count MPV PT INR Sodium Chloride Carbon Dioxide Anion Gap BUN Creatinine Estim Creat Clear Calc Estimated GFR Glucose POC Capillary Glucose 183 H 125 H 158 H Calculated Osmolality Calcium Magnesium Total Bilirubin AST ALT Alkaline Phosphatase Total Protein Albumin 02/14/25 02/14/25 02/14/25 05:37 07:39 09:14 WBC 5.9 RBC 5.87 Hgb 15.7 H Hct 50.5 H MCV 86.0 MCH 26.7 L MCHC 31.1 L RDW 19.2 H Plt Count 304 MPV 10.3 PT 22.4 H INR 2.2 Sodium 140 Chloride 105 Carbon Dioxide 31 H Anion Gap 4 BUN 18 Creatinine 1.13 Estim Creat Clear Calc 72 Estimated GFR > 60 Glucose 192 H POC Capillary Glucose 114 H Calculated Osmolality 296 H Calcium 8.5 Magnesium 2.1 Total Bilirubin 0.9 AST 30 ALT 26 Alkaline Phosphatase 105 Total Protein 6.4 Albumin 3.3 L Quality VTE Prophylaxis VTE prophylaxis: pharmacologic ordered -Patient's previous records reviewed on admission -ER notes reviewed in detail on admission -discussed all findings and current treatment plan with patient/Family/POA -Consultations reviewed for recommendations -Patient's disposition for safe discharge discussed with bilingual case manager Dictation performed by [employer] direct speech recognition software, therefore infant and toddler teacher variants and typographical errors may occur. Hospitalist MIPS Advance Care Plan I have confirmed that the patient's Advanced Care Plan is present, code status is documented, or surrogate decision maker is listed in patient medical record.: Yes Medication Reconciliation I have utilized all available resources to obtain, update and review the patients current medications (includes all prescriptions, OTC, herbals, cannabis, and nutritional supplements).: Yes The patient is not eligible for med reconciliation; the patient is in a emergent medical situation where delaying treatment would jeopardize the patients health.: No
[2025-02-14 09:41] LABS: Potassium 4.4 mmol/L (3.4-5.0)
[2025-02-14] MEDS: DICLOFENAC SODIUM 1% 100 GM GEL (*BKC) 4 APPLIC TOPICAL (16:37)
[2025-02-14] MEDS: WARFARIN (*PBKC) 2 MG TABLET 6 MG PO (16:44)
[2025-02-14] MEDS: SENNA/DOCUSATE SODIUM TABLET 1 TAB PO (20:02)
[2025-02-14] MEDS: MELATONIN 5 MG TABLET PO (20:02)
[2025-02-14] MEDS: INSULIN GLARGINE (*BKC) 1,000 UNITS/10 ML VIAL 32 UNITS SUB-Q (20:05)
[2025-02-15] VITALS: BP 155/73; PULSE 56; RESP 17; TEMP 36; O2SAT 96
[2025-02-15] MEDS: LEVOTHYROXINE SODIUM 50 MCG TABLET PO (05:41)
[2025-02-15 05:44] LABS: INR 1.9; Prothrombin Time 20.2 Seconds (9.50-12.1)
[2025-02-15 08:00] VITALS: BP 139/76; PULSE 60; RESP 18; TEMP 36.2; O2SAT 94
[2025-02-15 09:17] VITALS: PULSE 76
[2025-02-15] MEDS: PREGABALIN (*CRX) 50 MG CAPSULE 150 MG PO ×3 (09:17→17:22)
[2025-02-15] MEDS: FUROSEMIDE 20 MG TABLET PO (09:17)
[2025-02-15] MEDS: METOPROLOL TARTRATE 12.5 MG TABLET PO ×2 (09:17→20:24)
[2025-02-15] MEDS: PANTOPRAZOLE 40 MG TABLET PO (09:17)
[2025-02-15] MEDS: ATORVASTATIN 10 MG TABLET 20 MG PO (09:17)
[2025-02-15] MEDS: FLECAINIDE ACETATE 50 MG TABLET PO ×2 (09:17→20:24)
[2025-02-15] MEDS: FLUTICASONE/UMECLIDIN/VILANTER 100-62.5-25 MCG ELLIPTA 1 PUFF INHALATION (09:18)
[2025-02-15] MEDS: LORATADINE 10 MG TABLET PO (09:18)
[2025-02-15] MEDS: AZELASTINE HCL NASAL 0.1% 137 MCG/SPR 30 ML BTL 2 SPRAY NASAL ×2 (09:18→20:25)
[2025-02-15] MEDS: EMPAGLIFLOZIN 25 MG TABLET PO (09:18)
[2025-02-15] MEDS: SACCHAROMYCES BOULARDII 250 MG CAPSULE PO ×3 (09:18→17:22)
[2025-02-15] MEDS: TRIAMCINOLONE ACET 0.1% CREAM 15 GM TUBE 1 APPLIC TOPICAL ×2 (09:18→17:22)
[2025-02-15] MEDS: CHOLECALCIFEROL (VITAMIN D3) 25 MCG (1,000 UNITS) TABLET 50 MCG PO (09:18)
[2025-02-15] MEDS: BACLOFEN 10 MG TABLET PO ×3 (09:18→17:22)
[2025-02-15] MEDS: TAMSULOSIN HCL 0.4 MG CAPSULE 0.8 MG PO (09:18)
[2025-02-15 16:00] VITALS: BP 127/66; PULSE 56; RESP 20; TEMP 36.6; O2SAT 97
[2025-02-15] MEDS: WARFARIN (*PBKC) 2 MG TABLET 6 MG PO (17:21)
[2025-02-15] MEDS: DICLOFENAC SODIUM 1% 100 GM GEL (*BKC) 4 APPLIC TOPICAL (17:22)
[2025-02-15 20:00] VITALS: PULSE 65; RESP 16; O2SAT 95
[2025-02-15] MEDS: INSULIN GLARGINE (*BKC) 1,000 UNITS/10 ML VIAL 32 UNITS SUB-Q (20:22)
[2025-02-15 20:24] VITALS: PULSE 65
[2025-02-15] MEDS: SENNA/DOCUSATE SODIUM TABLET 1 TAB PO (20:25)
[2025-02-15] MEDS: MELATONIN 5 MG TABLET PO (20:25)
[2025-02-16] VITALS: BP 155/71; PULSE 65; RESP 18; TEMP 36.5; O2SAT 95
[2025-02-16] MEDS: LEVOTHYROXINE SODIUM 50 MCG TABLET PO (06:24)
[2025-02-16 07:35] VITALS: BP 140/68; PULSE 58; RESP 16; TEMP 35.8; O2SAT 97
[2025-02-16 07:56] LABS: INR 2.0; Prothrombin Time 21.1 Seconds (9.50-12.1)
[2025-02-16 08:25] VITALS: PULSE 58; RESP 16; O2SAT 97
[2025-02-16] MEDS: PREGABALIN (*CRX) 50 MG CAPSULE 150 MG PO (09:17)
[2025-02-16] MEDS: CHOLECALCIFEROL (VITAMIN D3) 25 MCG (1,000 UNITS) TABLET 50 MCG PO (09:17)
[2025-02-16 09:18] VITALS: PULSE 58
[2025-02-16] MEDS: METOPROLOL TARTRATE 12.5 MG TABLET PO (09:18)
[2025-02-16] MEDS: TAMSULOSIN HCL 0.4 MG CAPSULE 0.8 MG PO (09:18)
[2025-02-16] MEDS: FUROSEMIDE 20 MG TABLET PO (09:18)
[2025-02-16] MEDS: SACCHAROMYCES BOULARDII 250 MG CAPSULE PO (09:18)
[2025-02-16] MEDS: ATORVASTATIN 10 MG TABLET 20 MG PO (09:18)
[2025-02-16] MEDS: PANTOPRAZOLE 40 MG TABLET PO (09:18)
[2025-02-16] MEDS: EMPAGLIFLOZIN 25 MG TABLET PO (09:18)
[2025-02-16] MEDS: FLECAINIDE ACETATE 50 MG TABLET PO (09:18)
[2025-02-16] MEDS: BACLOFEN 10 MG TABLET PO (09:19)
[2025-02-16] MEDS: LORATADINE 10 MG TABLET PO (09:19)
[2025-02-16] MEDS: FLUTICASONE/UMECLIDIN/VILANTER 100-62.5-25 MCG ELLIPTA 1 PUFF INHALATION (09:19)
[2025-02-16] MEDS: AZELASTINE HCL NASAL 0.1% 137 MCG/SPR 30 ML BTL 2 SPRAY NASAL (09:19)
[2025-02-16] MEDS: TRIAMCINOLONE ACET 0.1% CREAM 15 GM TUBE 1 APPLIC TOPICAL (09:20)
--- NOTE | 2025-02-16 11:34 | P.DS_ITS ---
DS: Admitting Diagnosis Discharge Date 02/16/2025 Admitting Diagnosis REHAB swing bed For generalized weakness and deconditioned state/ unsteady gait DS: Discharge Diagnosis Discharge Diagnosis (1) Weakness: Code(s): R53.1 - Weakness Status: Acute Assessment and Plan: patient had been hospitalized and [facility] and admitted due to fall at home with generalized weakness and pneumonia. initial Traumatic workup was negative for acute injury * PT/OT * Pain management with norco * added bowel regiment due to narcotics and reported constipation (2) Chronic deep vein thrombosis (DVT): Code(s): I82.509 - Chronic embolism and thrombosis of unspecified deep veins of unspecified lower extremity Status: Acute Assessment and Plan: patient on Coumadin for chronic DVT was previously on eliquis but reports had a GI bleed and was taken off * INR 2.6 * current Coumadin dose 6 mg daily * Q3D PTT INR (3) Diabetes mellitus with neuropathy: Qualifiers: Diabetes mellitus senior care insulin use: with field radio technician use Diabetes mellitus type: type 2 Qualified Code(s): E11.40 - Type 2 diabetes mellitus with diabetic neuropathy, unspecified; Z79.4 - halfway (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 Code(s): E11.40 - Type 2 diabetes mellitus with diabetic neuropathy, unspecified Status: Acute Assessment and Plan: patient with chronic history of diabetes but does report he has having episodes of hypoglycemia his long-acting insulin was reduced at [facility] to 32 units from 44 * will resume Lantus at 32 and adjust as needed * high dose SSI * Accu-Cheks a.c. HS * diabetic diet * hypoglycemic protocol (4) Hypertension: Qualifiers: Hypertension type: essential hypertension Qualified Code(s): I10 - Esse ntial (primary) hypertension Code(s): I10 - Essential (primary) hypertension Status: Chronic Assessment and Plan: * BP reviewed and stable * continued patient's metoprolol (5) Hyperlipidemia: Qualifiers: Hyperlipidemia type: mixed hyperlipidemia Qualified Code(s): E78.2 - Mixed hyperlipidemia Code(s): E78.5 - Hyperlipidemia, unspecified Status: Acute Assessment and Plan: * Continue home statin (6) Atrial fibrillation: Code(s): I48.91 - Unspecified atrial fibrillation Status: Acute Assessment and Plan: * continued patient's Coumadin and metoprolol (7) Pneumonia: Code(s): J18.9 - Pneumonia, unspecified organism Status: Resolved Assessment and Plan: chest x-ray and CT at [facility] with showing suspicion of pneumonia * continued remaining doses of Augmentin and doxycycline to complete therapy RESOLVED DS: Summary Hospital Course Reason for hospitalization: REHAB swing bed For generalized weakness and deconditioned state/ unsteady gait Hospital Course: Admission: Patient is a 84-year-old male past medical history of COPD, diabetes, history of PE, BPH, blind Who was admitted to [facility] from [facility] due to recent fall at home with unsteady gait and weakness. Patient was initially admitted at [facility] for treatment of pneumonia, UTI, and RODRIGUEZ. Urine cultures were obtained and were negative for any growth, UTI it was then ruled out. Patient continued to be treated for pneumonia throughout hospitalization. He was initially placed on IV antibiotics and then transitioned to doxycycline and Augmentin upon discharge. Throughout hospitalization, blood work remained reassuring. RODRIGUEZ resolved on 02/05 after giving gentle IV fluid hydration. patient had reported he does history episodes of hypoglycemia and during his admission, patient's Lantus was decreased to 44 units 32 units to address overnight hypoglycemic episodes. Hypertension and hyperlipidemia were addressed by continuing at home medications. Patient remained afebrile without leukocytosis throughout hospitalization. Patient worked with PT/OT and they recommended continued rehab care with either home health or SNF. On 02/06, patient was hemodynamically stable for discharge and was discharged to [facility]. Patient on assessment in acute distress and no complaints except mild to moderate pain while working with physical therapy. Patient denied CP, SOB, N/V, dizziness but did endorse constipation. Hospital course: patient was admitted to [facility] for continued physical and occupational therapy due to his generalized weakness, fall at home,and recent hospitalization. patient at [place] [facility] was diagnosed with pneumonia and completed his antibiotic therapy here at [place] and remained on room air with respiratory complaints. patient's Coumadin did have to be held for a few days due to elevated INR was able to resume his 6 mg daily will follow up with primary care physician for further monitoring. patient progressed as expected with physical and occupational therapy back to his baseline. patient seen assessed day of discharge in no acute distress. patient re-educated that be lowered his long-acting Lantus from 44 units to 34 units due to episodes of hypoglycemia blood sugars remained within desired range during his hospitalization. patient was discharged home and transported via spouse. Status at Discharge Functional status at discharge: uses cane/walker Overall status at discharge: patient is back to baseline Time Spent with Patient Time attestation: Total time spent providing and/or coordinating discharge services: Time spent: Less than 30 minutes Exam Narrative: General: well appearing, appears stated age, HEENT: normocephalic, atraumatic. Mucous membranes moist. EOMI, PERRLA, bilateral sclera anicteric, no conjunctival injection. Neck supple without JVD, lymphadenopathy, or bruit. Respiratory: clear to ascultation bilaterally. No rales/rhonic/wheezes. Cardiovascular: Regular rate and rhythm, normal S1-S2 upon ascultation. No murmurs, rubs, or clicks. PMI is nondisplaced, capillary refill less than 3 second. Abdomen: Obese Soft, round, nondistended and nontender. Bowel sounds present to all four quadrants. Umbical hernia Extremities: No cyanosis, clubbing, Pulses are palpable 2/2. Active ROM to all four extremities. 2+ lower extremity edema Neuro: Alert and orientated x 4. PERRLA. Cranial nerves 2-12 intact without focal deficit. Skin: Warm, dry, and intact, without rash, deep tissue bruising Psych: Normal effect, cooperative DS: Data Data Completed and Pending Labs on day of discharge: Labs from last 24 hours 02/16/25 02/16/25 02/15/25 07:56 07:24 20:22 PT 21.1 H INR 2.0 POC Capillary Glucose 107 H 195 H 02/15/25 02/15/25 16:48 11:41 PT INR POC Capillary Glucose 172 H 122 H Discharge Plan Discharge Attending physician on discharge: Alex Christopher Consulting providers: Letty Romo Discharging Clinician: Letty Romo Anticipated Discharge Date/Time: 02/16/25 11:26 Patient Disposition: Home Activity: may shower and as tolerated Diet: heart healthy Discharge Instructions: 1). DVT * Current INR was 2.0 continue with your Coumadin dose of 6 mg daily at 5:00 p.m. 2). diabetes * her long acting insulin was decreased to at [facility] to 32 units 1 point due to episodes of hypoglycemia 3). Fall precautions * practice safe ambulation at home recommend removing all rugs and trip hazards How can you care for yourself at home? ? Keep track of any new symptoms or changes in your symptoms. ? Rest until you feel better. ? Be safe with medicines. Take your medicines exactly as prescribed. Call your doctor if you think you are having a problem with your medicine. ? Do not drive after taking a prescription pain medicine. ? Ensure to follow-up with primary care physician as indicated and provide updated medication list provided to you at discharge. When should you call for help? Call 911 anytime you think you may need emergency care. For example, call if: ? You passed out (lost consciousness). Call your doctor now or seek immediate medical care if: ? You have new symptoms like fever, difficulty breathing, Chest pain, vomiting, or rash. ? You have new or different pain. ? You are confused and are having trouble thinking clearly. ? Your symptoms are getting worse. Watch closely for changes in your health, and be sure to contact your doctor if: ? You do not get better as expected. Patient Instructions: Antibiotic Form, Hydrocodone/Acetaminophen (By mouth), Warfarin (By mouth), Pregabalin (By mouth), Fall Prevention for Older Adults (DC), Diabetes and Nutrition (DC) Patient Language: Tajik Stand Alone Forms: General Discharge Information Follow-up/Referrals: Liset Haynes MD [Primary Care Provider] - 03/02/25 10:00 am Discharge Medications: New insulin glargine [Lantus U-100 Insulin] 100 unit/mL Solution 32 unit subcut HS Qty: 10 0RF hydrocodone-acetaminophen 5-325 mg Tablet 1 tablet PO Q6H PRN (Reason: Pain Rated 6 Or Greater) Qty: 20 0RF Jardiance 25 mg Tablet 25 mg PO DAILY Qty: 30 0RF Continued acetaminophen [Tylenol Arthritis Pain] 650 mg tablet extended release 650 mg PO Q12H PRN (Reason: pain 1-4) flecainide 50 mg Tablet 50 mg PO Q12H warfarin 6 mg tablet 6 mg PO DAILY Qty: 30 0RF Protocol: Dose Management Condition: Thursday Dose/Route: 6 mg Instruction: 1 x 6 mg tablet Condition: Thursday Dose/Route: 6 mg Instruction: 1 x 6 mg tablet Condition: Thursday Dose/Route: 6 mg Instruction: 1 x 6 mg tablet Condition: Thursday Dose/Route: 6 mg Instruction: 1 x 6 mg tablet Condition: Dose/Route: 6 mg Instruction: 1 x 6 mg tablet Condition: Thursday Dose/Route: 6 mg Instruction: 1 x 6 mg tablet Condition: Thursday Dose/Route: 6 mg Instruction: 1 x 6 mg tablet Protocol Text: Adjustment Start Date: Thursday01/27/25 INR Value: 2.6 INR Date: 01/27/25 Recheck Date: 02/03/25 triamcinolone acetonide 0.1 % cream 1 applic topical BID Qty: 80 0RF Patient Comments: left elbow Adult 50 Plus Probiotic 4 billion cell capsule 4,000 mmu cells PO DAILY Rx Instructions: administer with a meal (DME) wheeled walker XL See Rx Instructions .Route .MEDSUPPLY Qty: 1 0RF Rx Instructions: As directed (DME) knee high medium compression stockings See Rx Instructions .Route .MEDSUPPLY Qty: 1 0RF Rx Instructions: As directed daily for leg edema (DME) diabetic shoes See Rx Instructions .Route .MEDSUPPLY Qty: 1 0RF Rx Instructions: As directed (DME) FreeStyle Santiago 3 Plus Sensor Device See Rx Instructions .Route Qty: 2 12RF Rx Instructions: As directed QID lidocaine [Salonpas (lidocaine)] 4 % adhesive patch,medicated 1 patch topical DAILY PRN (Reason: pain) Qty: 30 6RF Rx Instructions: Apply for 12 hours on and 12 hours off. loratadine 10 mg Capsule 10 mg PO DAILY docusate sodium 50 mg Capsule 50 mg PO BID cholecalciferol (vitamin D3) 50 mcg (2,000 unit) Capsule 50 mcg PO DAILY alpha lipoic acid 200 mg Capsule 200 mg PO DAILY (DME) NovoFine Plus 32 gauge x 1/6 needle See Rx Instructions .Route Qty: 100 5RF Rx Instructions: As directed TID to check glucose. (DME) OneTouch Ultra Test Strip See Rx Instructions .ROUTE .COMPLEX Qty: 100 3RF Dose Instruction: USE TO TEST BLOOD SUGAR THREE TIMES DAILY Rx Instructions: USE TO TEST BLOOD SUGAR THREE TIMES DAILY (DME) lancets [OneTouch Delica Plus Lancet] 33 gauge misc See Rx Instructions .Route Qty: 300 12RF Rx Instructions: As directed TID (DME) compression stockings knee high 15-20mmHG See Rx Instructions .Route .MEDSUPPLY Qty: 1 0RF Rx Instructions: As directed daily (DME) wheeled walker See Rx Instructions .Route .MEDSUPPLY Qty: 1 0RF Rx Instructions: As directed daily (DME) FreeStyle Santiago 3 Two Dot Misc See Rx Instructions .Route Qty: 2 12RF Rx Instructions: As directed QID furosemide 20 mg tablet See Rx Instructions .ROUTE .COMPLEX Qty: 90 1RF Dose Instruction: TAKE 1 TABLET BY MOUTH EVERY DAY FOR 30 DAYS Rx Instructions: TAKE 1 TABLET BY MOUTH EVERY DAY FOR 30 DAYS metoprolol tartrate 25 mg tablet 12.5 mg PO BID Qty: 90 3RF tamsulosin 0.4 mg capsule 0.8 mg PO DAILY Qty: 180 2RF pregabalin 150 mg capsule 150 mg PO TID Qty: 270 1RF Trelegy Ellipta 200-62.5-25 mcg blister with device 1 inh inhalation DAILY Qty: 60 5RF levothyroxine 50 mcg tablet 50 mcg PO DAILY Qty: 90 2RF atorvastatin 20 mg tablet 20 mg PO DAILY Qty: 90 3RF Fiasp FlexTouch U-100 Insulin 100 unit/mL (3 mL) insulin pen See Rx Instructions subcut .COMPLEX Qty: 15 12RF Rx Instructions: Inject 8-10 units subcutaneously TID AC; azelastine 137 mcg (0.1 %) spray,non-aerosol 137 mcg intranasal Q12H Qty: 30 2RF Rx Instructions: 2 spray administer into each nostril. 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) skin cdl driver adhesive bandage for Freestyle Santiago See Rx Instructions .Route .MEDSUPPLY Qty: 8 12RF Rx Instructions: As directed weekly diclofenac sodium 1 % gel 4 g topical QID Qty: 300 3RF Rx Instructions: apply to single knee, ankle, foot; for foot includes sole/toes/top of foot Discontinued doxycycline hyclate 100 mg capsule 100 mg PO DAILY Qty: 2 0RF Patient Comments: for 2 doses amoxicillin-pot clavulanate 875-125 mg tablet 1 tablet PO Q12H Qty: 1 0RF Patient Comments: for 1 dose insulin glargine 100 unit/mL solution 44 unit SUBCUT HS Qty: 20 12RF triamcinolone acetonide 0.1 % cream 1 applic topical BID Qty: 80 1RF Rx Instructions: bilateral feet dapagliflozin propanediol [Farxiga] 10 mg tablet 10 mg PO DAILY Qty: 90 1RF amoxicillin-pot clavulanate [Augmentin] 500-125 mg tablet 1 tablet PO DAILY Qty: 60 1RF Rx Instructions: permanent Date of admission: 02/06/25 16:21 Primary Care Provider: Liset Haynes Admitting Provider: Emir Osullivan Attending physician on admission: Emir Osullivan Condition: Improved Quality VTE Prophylaxis VTE prophylaxis: pharmacologic ordered -Patient's previous records reviewed on admission -ER notes reviewed in detail on admission -discussed all findings and current treatment plan with patient/Family/POA -Consultations reviewed for recommendations -Patient's disposition for safe discharge discussed with assistant case manager Dictation performed by [employer]fox direct speech recognition software, therefore ball points inspector variants and typographical errors may occur. Hospitalist MIPS Heart Failure (Exclusion) Patient has history of Heart Transplant or Left Ventricular Assistive Device?: No IF YES, STOP HERE Heart Failure (Qualifier) Patient has current or prior documentation of LVEF less than or equal to 40%, or mod/servere depressed LVSF?: No IF NO, STOP HERE
--- NOTE | 2025-02-16 12:25 | PC.NURSE ---
Patient discharging home. No IV site at time of discharge. All discharge instructions and education reviewed with patient and . Both parties state understanding. All belongings gathered together and sent home with patient. All medications returned to patient. Patient denies any questions at discharge. Patient transferred from chair to wheelchair. Left via private vehicle with .
--- NOTE | 2025-02-20 14:00 | PC.NURSE ---
Follow-up phone call complete. Neal was pleased with his care, said everyone was great, and states he understood his d/c teaching.
== END 2025-02-16 12:25 | disposition home or self-care (01) | DRG 947 ==
PROVIDERS: Nurse Practitioner Family; Admitting Provider Internal Medicine; PCP Family Medicine; Visit Provider Internal Medicine
DX: R53.1 Weakness (principal); J18.9 Pneumonia, unspecified organism; N17.9 Acute kidney failure, unspecified; J44.0 Chronic obstructive pulmonary disease with (acute) lower respiratory infection; K59.03 Drug induced constipation; T40.605A Adverse effect of unspecified narcotics, initial encounter; E11.40 Type 2 diabetes mellitus with diabetic neuropathy, unspecified; E78.5 Hyperlipidemia, unspecified; E11.649 Type 2 diabetes mellitus with hypoglycemia without coma; H54.7 Unspecified visual loss; I10 Essential (primary) hypertension; I48.91 Unspecified atrial fibrillation; N40.0 Benign prostatic hyperplasia without lower urinary tract symptoms; R26.9 Unspecified abnormalities of gait and mobility; W19.XXXA Unspecified fall, initial encounter; Z86.718 Personal history of other venous thrombosis and embolism; Z86.711 Personal history of pulmonary embolism; Z79.84 Long term (current) use of oral hypoglycemic drugs; Z79.4 Long term (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; Z79.01 Long term (current) use of anticoagulants; Z98.41 Cataract extraction status, right eye; Z98.42 Cataract extraction status, left eye; Z90.81 Acquired absence of spleen; Z96.653 Presence of artificial knee joint, bilateral; Z66 Do not resuscitate; Z87.891 Personal history of nicotine dependence
CPT/HCPCS: 36415; 80053; 82948; 83735; 85027; 85610; 97110; 97161; 97166; 97530; 97535; A9270; J1815

== ENCOUNTER 2025-02-24 08:51 | Inpatient (IN) | payer MEDICARE, SELFPAY ==
[2025-02-24] VITALS (18 sets, daily range): BP systolic 124–147; BP diastolic 55–90; PULSE 62–147; RESP 16–66; TEMP 35.9–36.6; O2SAT 92–100
--- NOTE | ~2025-02-24 | US_ITS ---
EXAM: RENAL ULTRASOUND HISTORY: elevated creatinine COMPARISON: Reference is made to a CTA examination of the chest abdomen and pelvis performed less phillip n 2 days earlier. FINDINGS: RIGHT KIDNEY: 13.5 x 7.5 x 5.8 cm. The parenchyma of the right kidney is unremarkable in echogenicity and caliber. No hydronephrosis or bulky renal calculi. Multiple rounded anechoic avascular foci detected. The largest measures 6.4 x 5.5 x 7 cm. LEFT KIDNEY: 12.4 x 4.5 x 6.0 cm No hydronephrosis or renal calculi. The parenchyma of the left kidney is unremarkable in echogenicity and caliber. BLADDER: Bilateral ureteral jets are visualized. IMPRESSION: No hydronephrosis or renal calculi. Simple cysts within the right kidney. No findings to suggest long-standing medical renal disease, as detailed above. Reviewed, dictated and finalized at location A.
--- NOTE | ~2025-02-24 | CT_ITS ---
EXAMINATION: CTA chest PE abdomen pel DATE: 02/24/2025 13:47 CDT INDICATION: Weakness TECHNIQUE: Computed tomographic angiography (CTA) of the chest, abdomen, and pelvis was performed wit hout and with 100 mL Omnipaque-350 intravenous contrast. The dose-length product was 4280.00 mGy-cm. Maximum intensity projection 3D-reconstructions of the aorta and other arteries were constructed by kemar thurston technologist on a separate workstation. Automated exposure control and iterative reconstruction te angelica were employed. COMPARISON: CT dated 02/02/2025. FINDINGS: CHEST CTA: There is mediastinal lipomatosis. Study is technically adequate without evidence for pulmonary emboli sm. Heart size normal. No significant pleural or pericardial effusion. Prominent extrapleural fat luis aterally. Patchy groundglass opacities predominantly affecting the lower lobes. There is more focal c onsolidation in the left lower lobe. No thoracic lymphadenopathy. ABDOMEN AND PELVIS CTA: Gallstones. Bilateral renal cysts. Fatty infiltration of the liver. There is a duodenal diverticulum. Enlarged prostate gland. Nonobstructive bowel gas pattern. There are bladder diverticula. There is a 4 cm infrarenal abdominal aortic aneurysm. There are changes of ventral abdominal wall hernia repair . There are chronic nonunited fractures of the left and ninth ribs. There are L1 and L2 laminectomies with L1-L4 posterior spinal fusion. 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 IMPRESSION: 1. Prominent groundglass opacities predominantly affecting the lower lobes. More focal consolidation present left lower lobe. Differential diagnosis includes infection, pulmonary edema, chronic intersti tial lung disease, hypersensitivity pneumonitis. 2: Cholelithiasis. 3: Infrarenal abdominal aortic aneurysm measuring 4 cm. Reviewed, dictated and finalized at location A. IMPRESSION: 1. Prominent groundglass opacities predominantly affecting the lower lobes. Mor e focal consolidation present left lower lobe. Differential diagnosis includes infection, pulmonary edema, chronic interstitial lung disease, hypersensitivity pneumonitis. 2: Cholelithiasis. 3: Infrarenal abdominal aortic aneurysm measuring 4 cm.
--- NOTE | ~2025-02-24 | XR_ITS ---
XR chest 1V portable 02/24/2025 10:49 Indication: Weakness and cough. Shakiness. Procedure: AP portable chest Comparison: Comparison to multiple prior studies sequentially, with oldest reviewed study dated Findings: cardiomegaly with interstitial edema. Possible small effusion. Multiple left rib fractures. There is atherosclerosis of the aorta.. Impression: 1: Cardiomegaly with interstitial edema. Reviewed, dictated and finalized at location A. Impression: 1: Cardiomegaly with interstitial edema.
--- NOTE | 2025-02-24 08:53 | ECG_ITS ---
Test Date: 2025-02-24 09:04:11 Measurements Intervals Gilbert Rate: 71 P: 85 IL: 229 QRS: 24 QRSD: 106 T: 54 QT: 393 QTc: 429 Interpretive Statements SINUS RHYTHM WITH FIRST DEGREE AV BLOCK Compared to ECG 02/02/2025 16:29:30 Sinus bradycardia no longer present Electronically Signed On 02-25-2025 18:32:51 CDT by Curtis Hughes M.D.
--- OUTSIDE RECORDS SUMMARY | 2025-02-24 09:11 | XMS_ITS | Continuity of Care Document ---
Author Organization [facility] Address [address] [place] [address] Phone Care Team Providers Care Line Person Name Role Phone Julisa Mcintyre Unavailable Unavailable [...] Diagnoses Date Provider Providers Copied on Encounter [facility], [address], [place], [place], [id number], [place] tel:[phone] [facility] No Information 0 Miguelina Egan. [address] , [address], [place], [address], [place]. tel:[phone] [facility], [address], [place], [place], [address], [place] tel:[phone] [facility] No Information 0 Miguelina Rodriguezn. [address] , [address], [place], [place], [facility], [place]. tel:[phone] [facility], [address], [place], [place], [address], [place] tel:[phone] [facility] No Information 0 Miguelina Julisa. [address] , [address], [place], [facility], [place]. tel:[phone] Office/outpati ent Visit, [facility], [address] [place] [address] [address], [place], [place], [id number], tel:[phone] [facility] No Information 0 Miguelina Rodriguezn. [address] , [address], [place], [facility], [place]. tel:[phone] Office/outpati ent Visit, [facility], [address], [place], [place], [address], [place] tel:[phone] [facility] No Information Dec-2 9-200 9 Miguelina Julisa. [address] , [address], [place], [facility], [place]. tel:[phone] [facility], [address], [place], [place], [address], [place] tel:[phone] [facility] No Information Oct-2 7-200 9 Miguelina Julisa. [address], [place], [facility], [place]. tel:[phone] [facility], [address], [place], [place], [address], [place] tel:[phone] [facility] No Information Oct-0 6-200 9 Mcintyre Julisa. [address], [place], [facility], [place]. tel:[phone] [facility], [address], [place], [place], [address], [place] tel:[phone] [facility] No Information Sep-2 4-200 9 Mcintyre Julisa. [address], [place], [facility], [place]. tel:[phone] [facility], [address], [place], [place], [address], [place] tel:[phone] [facility] No Information Sep-2 3-200 9 Mcintyre Julisa. [address], [place] [facility], [place]. tel:[phone] [facility], [address] [place] [address] [address], [place], [place], [address], [place] tel:[phone] [facility] No Information Sep-1 5-200 9 Miguelina Rodriguezn. [address], [place] [facility], [place]. tel:[phone] [facility], [address], [place], [place], [address], [place] tel:[phone] [facility] No Information Sep-1 0-200 9 Miguelina Julisa. [address], [place] [facility], [place]. tel:[phone] [facility], [address], [place], [place], [address], [place] tel:[phone] [facility] No Information Sep-0 9-200 9 Miguelina Julisa. [address], [place], [facility], [place]. tel:[phone] Office Consultation [facility], [address], [place], [place], [address], [place] tel:[phone] [facility] No Information 9 Miguelina Egan. [address], [place], [address], [place]. tel:[phone] Family History Family Member Type Diagnosis Age At Onset No Information Payers Payer name Insurance type Covered green party ID Authoriza tion(s) No Information Social [...]
--- OUTSIDE RECORDS SUMMARY | 2025-02-24 09:11 | XMS_ITS ---
Author Organization [facility] Address [address] [place] [address] Care Team Providers Care Craft Coordinator Name Role Phone Liset Haynes MD Primary Care Provider [phone] Active Problems Problem Noted Date Diagnosed Date Dysphagia 09/17/2023 Encounter for medication review 07/28/2023 Assessment & Plan (07/28/2023 1:21 PM THREADING MACHINE SETTER): 07/28 medications reviewed and updated through contact with [facility] (subarachnoid hemorrhage) 07/27/2023 Assessment & Plan (07/29/2023 7:30 AM THREADING MACHINE SETTER): - Neurosurgery consulted - Repeat head CT [...] 07/27/2023 Assessment & Plan (07/27/2023 2:21 PM THREADING MACHINE SETTER): - PRS consulted - s/p repair with 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 - Bacitracin TID x 3 days, then vaseline - HOB elevation - Pending recovery or discharge, please call [phone] or [phone] to schedule follow-up within 1-2 weeks to be seen by an BURT Left knee pain 07/27/2023 Assessment & Plan (07/28/2023 12:59 PM THREADING MACHINE SETTER): - XR left knee: negative for acute fracture Polycythemia 07/27/2023 Assessment & Plan (07/28/2023 12:59 PM THREADING MACHINE SETTER): #coagulopathy - last PE in per chart [...] 07/27/2023 Assessment & Plan (07/27/2023 2:50 PM THREADING MACHINE SETTER): - continue home levothyroxine Elevated red blood cell count 07/21/2023 Closed fracture of left distal fibula 03/11/2019 Overview (03/11/2019): Added automatically from request for surgery [id number] Acute pain due to trauma 03/11/2019 Type 2 diabetes mellitus, wi th long-term current use of insulin 03/11/2019 Assessment & Plan (07/28/2023 1:07 PM THREADING MACHINE SETTER): #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, [...] 02/08/2019 Assessment & Plan (08/06/2021 12:23 PM THREADING MACHINE SETTER): Cholesterol <200 mg/dL 142 137 R, CM 116 Low R 118 R, CM HDL > OR = 40 mg/dL 46 41 R, CM 34 Low R 27 Low R, CM Triglycerides <150 mg/dL 84 83 R, CM 80 R 117 R, CM LDL mg/dL (calc) 80 He remains at goal on lipitor 40 mg so will continue Assessment & Plan (08/15/2020 12:58 PM THREADING MACHINE SETTER): He is on lipitor 20 mg= TC 151/HDL 41/ TG 105/ LDL 89 He has been averaging in the 80 range the past 3 years so am going to the 40 mg dosing to get it down below 70 as he has no sx on the 20 Assessment & Plan (08/17/2019 12:02 PM THREADING MACHINE SETTER): TC 137/LDL 79 on lipitor 20 mg and at goal Assessment & Plan (02/08/2019 1:08 PM CDT): His LDL is at goal Presence of IVC filter 09/28/2018 Bruising 03/19/2017 Chronic anemia 03/19/2017 Edema 03/19/2017 Pulmonary embolism without acute cor pulmonale 0 02/10/2017 Assessment & Plan (07/28/2023 11:41 AM THREADING MACHINE SETTER): - Hold warfarin - s/p IVC filter Assessment & Plan (07/21/2017 12:18 PM THREADING MACHINE SETTER): Unfortunately, he needs anticoagulation. A recent venous [...] 01/20/2017 Assessment & Plan (08/17/2019 12:05 PM THREADING MACHINE SETTER): 1. 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 Global left ventricular [...] 01/20/2017 Assessment & Plan (07/27/2023 2:41 PM THREADING MACHINE SETTER): See Pulmonary Embolism Assessment & Plan (01/20/2017 [...] 01/20/2017 Assessment & Plan (07/27/2023 2:42 PM THREADING MACHINE SETTER): - Continue home Lipitor Assessment & Plan (02/08/2019 1:06 PM CDT): SCRIBED Cholesterol, Total l - h 151 SCRIBED HDL l - h 45 SCRIBED LDL l - h 87 SCRIBED Triglycerides l - h 95 His LDL is at goal on lipitor 20 mg a day Assessment & Plan (08/11/2018 10:31 AM THREADING MACHINE SETTER): Lipid profile today=TC 170/ HDL 55/ TG [...] lipitor Assessment & Plan (07/21/2017 12:22 PM THREADING MACHINE SETTER): Todays lipid profile= TC 151/ HDL 45/ [...] 01/02 Assessment & Plan (07/27/2023 2:47 PM THREADING MACHINE SETTER): - BMI 44.94 kg/m2 on admission Assessment & Plan (02/08/2019 2:11 PM CDT): He continues to work with diet and exercise Assessment & Plan (08/11/2018 10:35 AM THREADING MACHINE SETTER): He continues to work with calorie restriction and ambulation Assessment & Plan (01/27/2018 11:21 AM CDT): He works with diet, exercise limited as he walks with a cane Assessment & Plan (07/21/2017 12:31 PM THREADING MACHINE SETTER): He continues to work with diet Assessment & Plan (02/10/2017 1:56 PM CDT): Need for wt loss discussed. Recs: 1) continue diet and lifestyle modifications. Metastatic neoplasm 07/18/2016 Benign paroxysmal positional vertigo 09/20/2015 Pulmonary embolism 08/09/2015 Paroxysmal atrial fibrillation 08/09/2015 Assessment & Plan (07/27/2023 2:57 PM THREADING MACHINE SETTER): - Continue home flecainide - Continue home metoprolol - suppressed on warfarin, flecainide; follows with cardiology outpatient - last TTE in 2019 w/ LVEF 55% and no obvious structural issues Assessment & Plan (08/06/2021 12:26 PM THREADING MACHINE SETTER): He has had no recurrences since last year; echo normal, So I made no changes He is protected with Warfarin, on tambocor and metoprolol which I would continue Assessment & Plan (08/15/2020 12:39 PM THREADING MACHINE SETTER): He has had recurrent episodes of atrial [...] 07/12/2015 Assessment & Plan (07/28/2023 11:47 AM THREADING MACHINE SETTER): - 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 - has been on chronic suppressive doxycycline since then per ID - doxycycline reordered Arthritis 12/17/2009 Hypertension 12/17/2009 Assessment & Plan (08/06/2021 12:26 PM THREADING MACHINE SETTER): His BP remains at goal on the BB, so will continue Assessment & Plan (08/15/2020 12:34 PM THREADING MACHINE SETTER): His blood pressure is at goal Assessment & Plan (08/17/2019 12:00 PM THREADING MACHINE SETTER): His BP remains at goal Assessment & Plan (02/08/2019 1:05 PM CDT): His BP remains at goal Assessment & Plan (08/11/2018 10:26 AM THREADING MACHINE SETTER): His BP is at goal Current Treatment and Therapy Plans No current plan information found. Past Treatment and Therapy Plans No past plan information found. Lifetime Dose Tracking * Chemical Lifetime Dose Automatic Entry Manual Entr y DLP 1,419 mGycm 1,419 mGycm 0 mGycm
--- OUTSIDE RECORDS SUMMARY | 2025-02-24 09:11 | XMS_ITS | Referral Summary ---
Author Organization [facility] Address [address] [place] [address] Care Team Providers Care Mail Order Biller Name Role Phone Liset Haynes MD Primary Care Provider [phone] Allergies Active Allergy Reactions Criticality Noted Date [...] 07/28/2023 Assessment & Plan (07/28/2023 1:21 PM SPINNING BATH PERSON): 07/28 medications reviewed and updated through [facility] (subarachnoid hemorrhage) 07/27/2023 Assessment & Plan (07/29/2023 7:30 AM SPINNING BATH PERSON): - Neurosurgery consulted - Repeat head CT [...] 07/27/2023 Assessment & Plan (07/27/2023 2:21 PM SPINNING BATH PERSON): - PRS consulted - s/p repair with 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 - Bacitracin TID x 3 days, then vaseline - HOB elevation - Pending recovery or discharge, please call [phone] or [phone] to schedule follow-up within 1-2 weeks to be seen by an BURT Left knee pain 07/27/2023 Assessment & Plan (07/28/2023 12:59 PM SPINNING BATH PERSON): - XR left knee: negative for acute fracture Polycythemia 07/27/2023 Assessment & Plan (07/28/2023 12:59 PM SPINNING BATH PERSON): #coagulopathy - last PE in per chart [...] 07/27/2023 Assessment & Plan (07/27/2023 2:50 PM SPINNING BATH PERSON): - continue home levothyroxine Elevated red blood cell count 07/21/2023 Closed fracture of left distal fibula 03/11/2019 Overview (03/11/2019): Added automatically from request for surgery [id number] Acute pain due to trauma 03/11/2019 Type 2 diabetes mellitus, wi th long-term current use of insulin 03/11/2019 Assessment & Plan (07/28/2023 1:07 PM SPINNING BATH PERSON): #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, [...] 02/08/2019 Assessment & Plan (08/06/2021 12:23 PM SPINNING BATH PERSON): Cholesterol <200 mg/dL 142 137 R, CM 116 Low R 118 R, CM HDL > OR = 40 mg/dL 46 41 R, CM 34 Low R 27 Low R, CM Triglycerides <150 mg/dL 84 83 R, CM 80 R 117 R, CM LDL mg/dL (calc) 80 He remains at goal on lipitor 40 mg so will continue Assessment & Plan (08/15/2020 12:58 PM SPINNING BATH PERSON): He is on lipitor 20 mg= TC 151/HDL 41/ TG 105/ LDL 89 He has been averaging in the 80 range the past 3 years so am going to the 40 mg dosing to get it down below 70 as he has no sx on the 20 Assessment & Plan (08/17/2019 12:02 PM SPINNING BATH PERSON): TC 137/LDL 79 on lipitor 20 mg and at goal Assessment & Plan (02/08/2019 1:08 PM CDT): His LDL is at goal Presence of IVC filter 09/28/2018 Bruising 03/19/2017 Chronic anemia 03/19/2017 Edema 03/19/2017 Pulmonary embolism without acute cor pulmonale 0 02/10/2017 Assessment & Plan (07/28/2023 11:41 AM SPINNING BATH PERSON): - Hold warfarin - s/p IVC filter Assessment & Plan (07/21/2017 12:18 PM SPINNING BATH PERSON): Unfortunately, he needs anticoagulation. A recent venous [...] 01/20/2017 Assessment & Plan (08/17/2019 12:05 PM SPINNING BATH PERSON): 1. 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 Global left ventricular [...] 01/20/2017 Assessment & Plan (07/27/2023 2:41 PM SPINNING BATH PERSON): See Pulmonary Embolism Assessment & Plan (01/20/2017 [...] elective Lexiscan nuclear stress test over at [facility] which is convenient. If this is negative and since pulmonary is no from there mechanism. It may be worthwhile to consider some type of an alternate exercise program such as swimming, i.e. water aerobic Pure hypercholesterolemia 01/20/2017 Assessment & Plan (07/27/2023 2:42 PM SPINNING BATH PERSON): - Continue home Lipitor Assessment & Plan (02/08/2019 1:06 PM CDT): SCRIBED Cholesterol, Total l - h 151 SCRIBED HDL l - h 45 SCRIBED LDL l - h 87 SCRIBED Triglycerides l - h 95 His LDL is at goal on lipitor 20 mg a day Assessment & Plan (08/11/2018 10:31 AM SPINNING BATH PERSON): Lipid profile today=TC 170/ HDL 55/ TG [...] lipitor Assessment & Plan (07/21/2017 12:22 PM SPINNING BATH PERSON): Todays lipid profile= TC 151/ HDL 45/ [...] 01/02 Assessment & Plan (07/27/2023 2:47 PM SPINNING BATH PERSON): - BMI 44.94 kg/m2 on admission Assessment & Plan (02/08/2019 2:11 PM CDT): He continues to work with diet and exercise Assessment & Plan (08/11/2018 10:35 AM SPINNING BATH PERSON): He continues to work with calorie restriction and ambulation Assessment & Plan (01/27/2018 11:21 AM CDT): He works with diet, exercise limited as he walks with a cane Assessment & Plan (07/21/2017 12:31 PM SPINNING BATH PERSON): He continues to work with diet Assessment & Plan (02/10/2017 1:56 PM CDT): Need for wt loss discussed. Recs: 1) continue diet and lifestyle modifications. Metastatic neoplasm 07/18/2016 Benign paroxysmal positional vertigo 09/20/2015 Pulmonary embolism 08/09/2015 Paroxysmal atrial fibrillation 08/09/2015 Assessment & Plan (07/27/2023 2:57 PM SPINNING BATH PERSON): - Continue home flecainide - Continue home metoprolol - suppressed on warfarin, flecainide; follows with cardiology outpatient - last TTE in 2018 w/ LVEF 55% and no obvious structural issues Assessment & Plan (08/06/2021 12:26 PM SPINNING BATH PERSON): He has had no recurrences since last year; echo normal, So I made no changes He is protected with Warfarin, on tambocor and metoprolol which I would continue Assessment & Plan (08/15/2020 12:39 PM SPINNING BATH PERSON): He has had recurrent episodes of atrial [...] 07/12/2015 Assessment & Plan (07/28/2023 11:47 AM SPINNING BATH PERSON): - 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 at [facility] in 2016 - has been on chronic suppressive doxycycline since then per ID - doxycycline reordered Arthritis 12/17/2009 Hypertension 12/17/2009 Assessment & Plan (08/06/2021 12:26 PM SPINNING BATH PERSON): His BP remains at goal on the BB, so will continue Assessment & Plan (08/15/2020 12:34 PM SPINNING BATH PERSON): His blood pressure is at goal Assessment & Plan (08/17/2019 12:00 PM SPINNING BATH PERSON): His BP remains at goal Assessment & Plan (02/08/2019 1:05 PM CDT): His BP remains at goal Assessment & Plan (08/11/2018 10:26 AM SPINNING BATH PERSON): His BP is at goal Immunizations Immunization [...] on file Legal Sex Male 3:18 AM SPINNING BATH PERSON Gender Identity Not on file Sexual Orientation Not on file Last Filed Vital Signs Vital Sign Reading Time Taken Comments Blood Pressure 108/70 10/07/2024 2:53 PM SPINNING BATH PERSON Pulse 62 10/07/2024 2:53 PM SPINNING BATH PERSON Temperature 36.3 C (97.3 F) 09/07/2024 7:18 AM SPINNING BATH PERSON Respiratory Rate 18 09/07/2024 8:20 AM SPINNING BATH PERSON Oxygen Saturation 94% 10/07/2024 2:53 PM SPINNING BATH PERSON Inhaled Oxygen Concentration - - Weight 155.6 kg (343 lb) 10/07/2024 2:53 PM SPINNING BATH PERSON Height 188 cm (6' 2) 10/07/2024 2:53 PM SPINNING BATH PERSON Body Mass Index 44.04 10/07/2024 2:53 PM SPINNING BATH PERSON Plan of Treatment Not on file Procedures Procedure Name Priority Date/Time Associated Diagnosis Comments EGFR STAT 07/27/2023 8:57 AM SPINNING BATH PERSON LIPID PANEL Routine 11/13/2020 8:46 AM CDT HEMOGLOBIN A1C STAT 03/11/2019 12:48 PM CDT from Last 3 Months or Most Recently Relevant to Health Maintenance Results * eGFR (07/27/2023 8:57 AM SPINNING BATH PERSON) eGFR 60 >=60 mL/min/1. 73 m2 AMY [...] last reviewed 2021. Blood 07/27/2023 8:57 AM SPINNING BATH PERSON 07/27/2023 9:13 AM SPINNING BATH PERSON us Carlota Blum MD LAB BLOOD ORDERABLES F inal Result [facility] Department [place] [address] * Lipid panel (11/13/2020 8:46 AM CDT) [...] LDL-C. Norberto BEDOLLA et al. TEGAN. 2013;310(19): 1961-4634 (http://education.[employer]/faq/DRX603) Chol/HDL ratio 3.1 <5.0 (calc) [facility] Non-HDL, (LDL+VLDL) 96 <130 mg/dL (calc) [facility] Comment: For patients with diabetes plus 1 major ASCVD risk factor, treating to a non-HDL-C goal of <100 mg/dL (LDL-C of <70 mg/dL) is considered a therapeutic option. 11/13/2020 8:46 AM CDT 11/13/2020 8:47 AM CDT [facility] - 11/14/2020 2:24 AM CDT FASTING:YES FASTING: YES us Norberto Cordero DO LAB BLOOD ORDERABLES Final Result [facility] [id number] [id number] * (ABNORMAL) Hemoglobin A1c (03/11/2019 12:48 PM CDT) Hgb A1C 7.5(H) 4.0 - 5.6 % [facility] Estimated Average Glucose 169 mg/dL [facility] Comment: The ADA recommends reporting an estimated Average Glucose (eAG) with all Hemoglobin A1c results using the equation derived from a study of 507 normal and diabetic adults. Minority populations were underrepresented and children were not included. (Diabetes Care 31:5126-7650, 2008). The eAG is not equivalent to a fasting glucose. Blood specimen (specimen) 03/11/2019 12:48 PM CDT 03/11/2019 12:59 PM CDT Alvaro Ortez DO LAB BLOOD ORDERABLES nal Result [facility] Department [place] [address] from Last 3 Months or Most Recently Relevant to Health Maintenance Insurance [facility] MEDICARE ADVANTAGE [facility] MEDICARE [facility] MEDICARE [facility] MEDICARE [facility] MEDICARE ADVANTAGE [facility] MEDICARE ADVANTAGE Advance Directives For more information, please contact: [phone] * Full Code (Latest Code Status on File) Date Activated Date Inactivated Comments 09/07/2024 7:02 AM 09/07/2024 1:03 PM * Full Code Date Activated Date Inactivated Comments 01/22/2024 12:34 PM 01/22/2024 7:05 PM * Full Code Date Activated Date Inactivated Comments 07/27/2023 11:35 AM 07/29/2023 6:04 PM * Full Code Date Activated Date Inactivated Comments 03/11/2019 9:03 PM 03/16/2019 8:04 PM Care Teams Mail Order Biller Relationship Specialty Start Date End Date Liset Haynes MD PCP - General Family Medicine 08/05/22
--- OUTSIDE RECORDS SUMMARY | 2025-02-24 09:11 | XMS_ITS | Encounter Summary ---
Author Organization [facility] Address [address] [place] [address] Phone Care Team Providers Care Raisin Washer Name Role Phone Myron Diop MD Primary Care Provider [phone] Mayra Casper MD Unavailable [phone] Reason for Visit * Reason Comments Medication Refill Encounter Details Date Type Department Care Team (Late st Contact Info) Description 07/11/2020 Refill [facility] - Gastroenterology [facility] [address] [place] [address] Rosa Isela Boo Luz, PAC [address] [place] [address] Medication Refill Social History Tobacco Use Types [...] Job Start Date Job End Date retired-from [employer] Not on file Not on file Not on file documented as of this encounter Miscellaneous Notes * Telephone Encounter - Kelly Hodge CMA - 07/11/2020 1:17 PM SALVAGE REPAIRER Patients was notified on 03/29/2020 that refills after that were to go to primary care provider. verbalized understanding AGE REPAIRER documented in this encounter Plan of Treatment Not on file documented as of this encounter Visit Diagnoses Not on filedocumented in this encounter Care Teams Raisin Washer Relationship Specialty Start Date End Date Myron Diop MD [address] [place] [address] PCP - General Family Medicine 03/11/17 Mayra Casper MD [address] [place] [address] Consulting Physician Gastroenterology 07/30/17 documented as of this encounter
--- OUTSIDE RECORDS SUMMARY | 2025-02-24 09:11 | XMS_ITS | Clinical Summary ---
Author Organization [facility] Address [address], [address] [address] Phone Care Team Providers Care Police District Switchboard Operator Name Role Phone Christopher Diop MD Primary Care Provider [phone] Mayra Casper MD Unavailable [phone] Allergies No known active allergies Medications tamsulosin [...] Tabs by mouth daily. Active Probiotic Product (Dailysingle HEALTH PO) Take by mouth. Acti ve [...] Job Start Date Job End Date retired-from [employer] Not on file Not on file Not [...] age to complete this topic Care Teams Police District Switchboard Operator Relationship Specialty Start Date End Date Christopher Diop MD [address] [place] [address] PCP - General Family Medicine 03/11/17 Mayra Casper MD [address] [place] [address] Consulting Physician Gastroenterology 07/30/17
--- OUTSIDE RECORDS SUMMARY | 2025-02-24 09:11 | XMS_ITS | Clinical Summary ---
Author Organization [facility] Address [address] [place] [address] Care Team Providers Care Windrower Operator Name Role Phone Liset Haynes MD Primary Care Provider Allergies Active Allergy Reactions Criticality Noted Date [...] 07/28/2023 Assessment & Plan (07/28/2023 1:21 PM CHROME TANNING DRUM OPERATOR): 07/28 medications reviewed and updated through contact with [facility] (subarachnoid hemorrhage) 07/27/2023 Assessment & Plan (07/29/2023 7:30 AM CHROME TANNING DRUM OPERATOR): - Neurosurgery consulted - Repeat head CT [...] 07/27/2023 Assessment & Plan (07/27/2023 2:21 PM CHROME TANNING DRUM OPERATOR): - PRS consulted - s/p repair with 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 - Bacitracin TID x 3 days, then vaseline - HOB elevation - Pending recovery or discharge, please call [phone] or [phone] to schedule follow-up within 1-2 weeks to be seen by an BURT Left knee pain 07/27/2023 Assessment & Plan (07/28/2023 12:59 PM CHROME TANNING DRUM OPERATOR): - XR left knee: negative for acute fracture Polycythemia 07/27/2023 Assessment & Plan (07/28/2023 12:59 PM CHROME TANNING DRUM OPERATOR): #coagulopathy - last PE in per chart [...] 07/27/2023 Assessment & Plan (07/27/2023 2:50 PM CHROME TANNING DRUM OPERATOR): - continue home levothyroxine Elevated red blood cell count 07/21/2023 Closed fracture of left distal fibula 03/11/2019 Overview (03/11/2019): Added automatically from request for surgery [id number] Acute pain due to trauma 03/11/2019 Type 2 diabetes mellitus, wi th long-term current use of insulin 03/11/2019 Assessment & Plan (07/28/2023 1:07 PM CHROME TANNING DRUM OPERATOR): #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, [...] 02/08/2019 Assessment & Plan (08/06/2021 12:23 PM CHROME TANNING DRUM OPERATOR): Cholesterol <200 mg/dL 142 137 R, CM 116 Low R 118 R, CM HDL > OR = 40 mg/dL 46 41 R, CM 34 Low R 27 Low R, CM Triglycerides <150 mg/dL 84 83 R, CM 80 R 117 R, CM LDL mg/dL (calc) 80 He remains at goal on lipitor 40 mg so will continue Assessment & Plan (08/15/2020 12:58 PM CHROME TANNING DRUM OPERATOR): He is on lipitor 20 mg= TC 151/HDL 41/ TG 105/ LDL 89 He has been averaging in the 80 range the past 3 years so am going to the 40 mg dosing to get it down below 70 as he has no sx on the 20 Assessment & Plan (08/17/2019 12:02 PM CHROME TANNING DRUM OPERATOR): TC 137/LDL 79 on lipitor 20 mg and at goal Assessment & Plan (02/08/2019 1:08 PM CDT): His LDL is at goal Presence of IVC filter 09/28/2018 Bruising 03/19/2017 Chronic anemia 03/19/2017 Edema 03/19/2017 Pulmonary embolism without acute cor pulmonale 0 02/10/2017 Assessment & Plan (07/28/2023 11:41 AM CHROME TANNING DRUM OPERATOR): - Hold warfarin - s/p IVC filter Assessment & Plan (07/21/2017 12:18 PM CHROME TANNING DRUM OPERATOR): Unfortunately, he needs anticoagulation. A recent venous [...] 01/20/2017 Assessment & Plan (08/17/2019 12:05 PM CHROME TANNING DRUM OPERATOR): 1. 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 Global left ventricular [...] 01/20/2017 Assessment & Plan (07/27/2023 2:41 PM CHROME TANNING DRUM OPERATOR): See Pulmonary Embolism Assessment & Plan (01/20/2017 [...] elective Lexiscan nuclear stress test over at [facility] which is convenient. If this is negative and since pulmonary is no from there mechanism. It may be worthwhile to consider some type of an alternate exercise program such as swimming, i.e. water aerobic Pure hypercholesterolemia 01/20/2017 Assessment & Plan (07/27/2023 2:42 PM CHROME TANNING DRUM OPERATOR): - Continue home Lipitor Assessment & Plan (02/08/2019 1:06 PM CDT): SCRIBED Cholesterol, Total l - h 151 SCRIBED HDL l - h 45 SCRIBED LDL l - h 87 SCRIBED Triglycerides l - h 95 His LDL is at goal on lipitor 20 mg a day Assessment & Plan (08/11/2018 10:31 AM CHROME TANNING DRUM OPERATOR): Lipid profile today=TC 170/ HDL 55/ TG [...] lipitor Assessment & Plan (07/21/2017 12:22 PM CHROME TANNING DRUM OPERATOR): Todays lipid profile= TC 151/ HDL 45/ [...] 01/02 Assessment & Plan (07/27/2023 2:47 PM CHROME TANNING DRUM OPERATOR): - BMI 44.94 kg/m2 on admission Assessment & Plan (02/08/2019 2:11 PM CDT): He continues to work with diet and exercise Assessment & Plan (08/11/2018 10:35 AM CHROME TANNING DRUM OPERATOR): He continues to work with calorie restriction and ambulation Assessment & Plan (01/27/2018 11:21 AM CDT): He works with diet, exercise limited as he walks with a cane Assessment & Plan (07/21/2017 12:31 PM CHROME TANNING DRUM OPERATOR): He continues to work with diet Assessment & Plan (02/10/2017 1:56 PM CDT): Need for wt loss discussed. Recs: 1) continue diet and lifestyle modifications. Metastatic neoplasm 07/18/2016 Benign paroxysmal positional vertigo 09/20/2015 Pulmonary embolism 08/09/2015 Paroxysmal atrial fibrillation 08/09/2015 Assessment & Plan (07/27/2023 2:57 PM CHROME TANNING DRUM OPERATOR): - Continue home flecainide - Continue home metoprolol - suppressed on warfarin, flecainide; follows with cardiology outpatient - last TTE in 2018 w/ LVEF 55% and no obvious structural issues Assessment & Plan (08/06/2021 12:26 PM CHROME TANNING DRUM OPERATOR): He has had no recurrences since last year; echo normal, So I made no changes He is protected with Warfarin, on tambocor and metoprolol which I would continue Assessment & Plan (08/15/2020 12:39 PM CHROME TANNING DRUM OPERATOR): He has had recurrent episodes of atrial [...] 07/12/2015 Assessment & Plan (07/28/2023 11:47 AM CHROME TANNING DRUM OPERATOR): - 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 then per ID - doxycycline reordered Arthritis 12/17/2009 Hypertension 12/17/2009 Assessment & Plan (08/06/2021 12:26 PM CHROME TANNING DRUM OPERATOR): His BP remains at goal on the BB, so will continue Assessment & Plan (08/15/2020 12:34 PM CHROME TANNING DRUM OPERATOR): His blood pressure is at goal Assessment & Plan (08/17/2019 12:00 PM CHROME TANNING DRUM OPERATOR): His BP remains at goal Assessment & Plan (02/08/2019 1:05 PM CDT): His BP remains at goal Assessment & Plan (08/11/2018 10:26 AM CHROME TANNING DRUM OPERATOR): His BP is at goal Immunizations Immunization [...] on file Legal Sex Male 3:18 AM CHROME TANNING DRUM OPERATOR Gender Identity Not on file Sexual Orientation Not on file Obstetrics History Last Filed Vital Signs Vital Sign Reading Time Taken Comments Blood Pressure 108/70 10/07/2024 2:53 PM CHROME TANNING DRUM OPERATOR Pulse 62 10/07/2024 2:53 PM CHROME TANNING DRUM OPERATOR Temperature 36.3 C (97.3 F) 09/07/2024 7:18 AM CHROME TANNING DRUM OPERATOR Respiratory Rate 18 09/07/2024 8:20 AM CHROME TANNING DRUM OPERATOR Oxygen Saturation 94% 10/07/2024 2:53 PM CHROME TANNING DRUM OPERATOR Inhaled Oxygen Concentration - - Weight 155.6 kg (343 lb) 10/07/2024 2:53 PM CHROME TANNING DRUM OPERATOR Height 188 cm (6' 2) 10/07/2024 2:53 PM CHROME TANNING DRUM OPERATOR Body Mass Index 44.04 10/07/2024 2:53 PM CHROME TANNING DRUM OPERATOR Plan of Treatment Health Maintenance Due Date [...] eGFR 07/27/2024 07/27/2023, 07/04, 10/21/2016 Influenza Vaccine (#1) 2025 9, 06/07/2018, 05/11/2017 Fall Risk Assessment 09/07/2025 09/07/2024 DTaP/Tdap/Td Vaccine (3 - Td or Tdap) 07/27/2033 07/27/2023, 05/10/2013, 01/24/2004 Pneumococcal vaccine 65+ Completed 018, 07/31/2016, 05/10/2013 Zoster Vaccine Completed 08/22/2019, 06/09/2019 Procedures Procedure Name Priority Date/Time Associated Diagnosis Comments EGFR STAT 07/27/2023 8:57 AM CHROME TANNING DRUM OPERATOR LIPID PANEL Routine 11/13/2020 8:46 AM CDT HEMOGLOBIN A1C STAT 03/11/2019 12:48 PM CDT from Last 3 Months or Most Recently Relevant to Health Maintenance Results * eGFR (07/27/2023 8:57 AM CHROME TANNING DRUM OPERATOR) eGFR 60 >=60 mL/min/1. 73 m2 AMY [...] last reviewed 2021. Blood 07/27/2023 8:57 AM CHROME TANNING DRUM OPERATOR 07/27/2023 9:13 AM CHROME TANNING DRUM OPERATOR us Carlota Blum MD LAB BLOOD ORDERABLES F inal Result [facility]Y [facility] Department [place] [address] * Lipid panel (11/13/2020 8:46 AM CDT) [...] LDL-C. Norberto BEDOLLA et al. TEGAN. 2013;310(19): 6699-5347 (http://education.MarketMuse/faq/RKM826) Chol/HDL ratio 3.1 <5.0 (calc) [facility] [...] DO LAB BLOOD ORDERABLES Final Result [facility] [address] [place] [address] * (ABNORMAL) Hemoglobin A1c (03/11/2019 12:48 PM CDT) Hgb A1C 7.5(H) 4.0 - 5.6 % [facility] Estimated Average Glucose 169 mg/dL [facility] Comment: The ADA recommends reporting an estimated Average Glucose (eAG) with all Hemoglobin A1c results using the equation derived from a study of 507 normal and diabetic adults. Minority populations were underrepresented and children were not included. (Diabetes Care 31:2698-7465, 2008). The eAG is not equivalent to a fasting glucose. Blood specimen (specimen) 03/11/2019 12:48 PM CDT 03/11/2019 12:59 PM CDT us Alvaro Ortez DO LAB BLOOD ORDERABLES Fi nal Result AMY [facility] Department [place] [address] from Last 3 Months or Most Recently Relevant to Health Maintenance Insurance [facility] MEDICARE [facility] MEDICARE [facility] MEDICARE ADVANTAGE Advance Directives For more information, please contact: [phone] * Full Code (Latest Code Status on File) Date Activated Date Inactivated Comments 09/07/2024 7:02 AM 09/07/2024 1:03 PM * Full Code Date Activated Date Inactivated Comments 01/22/2024 12:34 PM 01/22/2024 7:05 PM * Full Code Date Activated Date Inactivated Comments 07/27/2023 11:35 AM 07/29/2023 6:04 PM * Full Code Date Activated Date Inactivated Comments 03/11/2019 9:03 PM 03/16/2019 8:04 PM Care Teams Windrower Operator Relationship Specialty Start Date End Date Liset Haynes MD PCP - General Family Medicine 08/05/22
--- OUTSIDE RECORDS SUMMARY | 2025-02-24 09:11 | XMS_ITS | Clinical Summary ---
Author Organization [facility] Address [address] [place] [address] Care Team Providers Care Printing Supplies Sales Representative Name Role Phone Liset Haynes MD Primary Care Provider [phone] Allergies No known active allergies Medications amiodarone [...] Encounters Date Type Department Care Team Description 02/15/2025 External Device Data [facility] Provider, Abstract 02/15/2025 External Device Data [facility] Provider, Abstract 02/15/2025 External Device Data [facility] Provider, Abstract 01/18/2025 External Device Data [facility] Provider, Abstract 01/11/2025 Orders Only [facility] Oncology and Hematology [facility] [address] [place] [address] Kendall Wills MD 01/10/2025 11:45 AM CDT Office Visit [facility] Oncology and Hematology [facility] [address] [place] [address] Kendall Wills MD Polycythemia, secondary (Primary Dx) [...] kg (343 lb) 07/12/2024 1:0 3 PM ROOFER GYPSUM Patient is unable to step on scale,patient gave me a verbal current weight from recent. Height 188 cm (6' 2) 06/08/2018 8:37 AM ROOFER GYPSUM Body Mass Index 44.04 06/08/2018 8:37 AM ROOFER GYPSUM Plan of Treatment Upcoming Encounters Date Type Department Care Team (Late st Contact Info) Description 07/13/2025 1:00 PM ROOFER GYPSUM Office Visit [facility] Oncology and Hematology - [place] [address] [place] [address] [facility] [address] [place] [address] Kendall Wills MD [address] [facility] [address] [place] [address] Health Maintenance Due Date Last [...] METABOLIC PANEL (01/10/2025 10:37 AM CDT) Blood us Kendall Wills MD CHEMISTRY ORDERABLES Final Resu lt * CBC WITH AUTODIFFERENTIAL (01/10/2025 10:28 AM CDT) Blood us Kendall Wills MD HEMATOLOGY ORDERABLES Final Res ult from Last 3 Months Insurance [facility] Care Teams Printing Supplies Sales Representative Relationship Specialty Start Date End Date Liset Haynes MD [address] [place] [address] PCP - General Family Practice 01/06/23
--- OUTSIDE RECORDS SUMMARY | 2025-02-24 09:11 | XMS_ITS | Clinical Summary ---
Author Organization [facility] Address [address] [place] [id number] Care Team Providers Care Observer Gravity Prospecting Name Role Phone Unavailable Primary Care Provider Unavailabl e Social History Tobacco Use Types Packs/Day Years Used Date Smoking Tobacco: Never Assessed Sex and Gender Information Value Date Recorded Sex Assigned at Not on file Legal Sex Male 5:58 PM WIRE ROPE FABRICATION SUPERVISOR Gender Identity Not on file Sexual [...]
--- NOTE | 2025-02-24 09:17 | ED_ITS ---
HPI - General Adult General Chief complaint: Weakness Stated complaint: weakness Time Seen by Provider: 02/24/25 08:53 History of Present Illness HPI narrative: 84-year-old male present to the emergency department for evaluation for worsening generalized weakness. Patient does have a recent hospital admission for pneumonia and UTI. Patient then stated at a rehab facility for approximately 5 days and was discharged approximately 1 week ago. Patient states he has had worsening weakness over the last few days and was having even worsening weakness last night. He reports he did stumbled but did not have a fall or head injury. Patient arrived to the emergency department by EMS. Patient denies any chest pain or shortness breath but does have a new O2 requirement. Related Data Home Medications ?Medication ?Instructions ?Recorded ?Confirmed ?Last Taken ?Type flecainide 50 mg tablet 50 mg PO Q12H 06/21/19 02/06/25 02/06/25 09:30 History docusate sodium 50 mg capsule 50 mg PO BID 06/14/20 02/06/25 02/06/25 09:30 History loratadine 10 mg capsule 10 mg PO DAILY 06/14/20 02/06/25 02/06/25 09:30 History lactobacillus combination no.9 4 4,000 mmu cells PO DAILY 11/07/21 02/06/25 Unknown History billion cell capsule (Adult 50 Plus Probiotic) acetaminophen 650 mg 650 mg PO Q12H PRN pain 1-4 10/12/23 02/06/25 Unknown History tablet,extended release (Tylenol Arthritis Pain) alpha lipoic acid 200 mg capsule 200 mg PO DAILY 04/13/24 02/06/25 Unknown History cholecalciferol (vitamin D3) 50 50 mcg PO DAILY 04/13/24 02/06/25 Unknown History mcg (2,000 unit) capsule Allergies Allergy/AdvReac Type Severity Reaction Status Date / Time No Known Drug Allergies Allergy Unknown Unknown Verified 02/02/25 19:47 Review of Systems 2 Review of Systems: All systems reviewed & are unremarkable except as noted in HPI and below PMFSH Past Medical History Medical History Trochanteric bursitis, right hip Arthritis of elbow, left, degenerative Arthritis of right shoulder region Right shoulder strain Right arm pain Olecranon bursitis of right elbow Atrial fibrillation Rupture of left Achilles tendon Left ankle pain Constipation High cholesterol SOB (shortness of breath) Vision changes COPD (chronic obstructive pulmonary disease) Osteomyelitis, chronic BPH (benign prostatic hyperplasia) History of hemorrhoids History of pulmonary embolism History of deep vein thrombosis (DVT) of lower extremity Acute exacerbation of chronic obstructive airways disease Pneumonia due to COVID-19 virus Hypothyroidism determined by thyroid function test Weakness of both lower extremities Diabetes mellitus with neuropathy Ankle syndesmosis disruption Ankle fracture, bimalleolar, closed Infection of spine Chronic antibiotic suppression Chronic anticoagulation Recurrent deep vein thrombosis (DVT) Hypertension Spleen absent Rotator cuff arthropathy of right shoulder Surgical History Surgical History Total knee replacement status H/O bilateral cataract extraction H/O splenectomy S/P rotator cuff repair H/O colonoscopy with polypectomy History of pancreatic surgery Removal of pancreatic mass ([facility]) History of embolic filter insertion Hx of hernia repair History of back surgery x2 ([facility]), x1 ([facility]) H/O total knee replacement Bilaterally Family History Family History Grandparent Diabetes mellitus Father Family history of cardiovascular disease Intracranial aneurysm Mother Dvt femoral (deep venous thrombosis) Sibling Throat cancer Sister Acute myocardial infarction Brother Social History Social History Social History: The patient is and remarried; he lives with his . Patient was smoking up to 3 packs of cigarettes a day. He is retired from [employer]. He drinks occasionally denies any illicit drugs. He is listed as a DNR. He nominates His to be the individual who would make medical decisions for him if he is unable. Smoking packs per day: 3 Smoking cigarettes per day: 60.0 Years smoked: 20 Smoking pack-years: 60.00 Smoking status: Former smoker Tobacco type: cigarettes Second hand tobacco smoke exposure: No Smoking end date: 04/13/80 Alcohol intake: never Drinks per week: 1 Substance use: never Substance use type: does not use Do You Feel Safe in your Home?: Yes Lack of Transportation: No Lack of Food: Never True Current Housing: I Have Housing Concerned About Future Housing: No Difficulty Paying Gas/Electric Bills: No Difficulty Paying for Meds: No Currently Unemployed: No Education: High School Diploma/GED Difficulty w/ Childcare or Family Care: No Living arrangements: with family Occupation/Education: retired Gender identity (if verbalized by the patient): Male Additional gender identity comments: Lives with Sexual Orientation (if Verbalized by the Patient): Straight or Heterosexual Spiritual care concerns: No Agree to blood products: Yes Exam 2 Narrative: APPEARANCE: Ill-appearing HEAD: normocephalic, atraumatic. EYES: PERRLA/EOMI, conjunctivae clear. NOSE: Normal no drainage EARS:TMS clear with good light reflex. THROAT: Pharynx clear, no exudate. NECK: Supple. No adenopathy, no masses. RESPIRATORY: Airway patent, respirations nonlabored. Clear to auscultation bilaterally, no rales, rhonchi, wheezing. CARDIOVASCULAR: Regular rate and rhythm without murmurs rubs or gallops. ABDOMINAL: Soft, nontender, nondistended, normal bowel sounds MUSCULOSKELETAL: Moves all extremities. Strength/ROM intact, No edema, No calf tenderness. NEURO: Alert. Cranial nerves II through XII intact. Grossly intact SKIN: Warm, dry. Normal Color Course Vital Signs Vital signs: Vital Signs Temperature 97.8 F 02/24/25 09:01 Pulse Rate 74 02/24/25 09:01 Respiratory Rate 18 02/24/25 09:01 Blood Pressure 141/69 H 02/24/25 09:01 Pulse Oximetry 93 02/24/25 09:01 Oxygen Delivery Nasal Cannula 02/24/25 09:01 Oxygen Flow Rate 2 02/24/25 09:01 Temperature 97.9 F 02/24/25 17:17 Pulse Rate 64 02/24/25 17:17 Respiratory Rate 16 02/24/25 17:17 Blood Pressure 132/64 02/24/25 17:17 Pulse Oximetry 93 02/24/25 17:17 Oxygen Delivery Nasal Cannula 02/24/25 09:01 Oxygen Flow Rate 2 02/24/25 09:01 Medical Decision Making MDM Narrative Medical decision making narrative: 84-year-old male presents to the emergency department for evaluation for worsening generalized weakness. Patient is currently afebrile but does have elevated leukocytosis of 13.1 hemoglobin of 15.2. Patient's INR is 1.8. No acute abnormalities on his CMP. Patient does have a mildly elevated CRP of 2.2 lactic acid is 1.6. No evidence of infection eyes UA patient was negative for influenza RSV and for COVID. CT was ordered to evaluate for pulmonary embolism and this was negative but does show evidence of pneumonia versus pulmonary edema, patient's proBNP is not elevated. Patient was started on cefepime and vanc and blood cultures were ordered. Patient was also treated with IV Lasix. Case was discussed with hospitalist for admission. Patient family were comfortable the plan for admission. Patient was stable at time of admission Differential Diagnosis Differential Diagnosis: Pulmonary edema, CHF, pneumonia, failure to thrive, pneumothorax Vital Signs Vital Signs: Vital Signs Temperature 97.8 F 02/24/25 09:01 Pulse Rate 74 02/24/25 09:01 Respiratory Rate 18 02/24/25 09:01 Blood Pressure 141/69 H 02/24/25 09:01 Pulse Oximetry 93 02/24/25 09:01 Oxygen Delivery Nasal Cannula 02/24/25 09:01 Oxygen Flow Rate 2 02/24/25 09:01 Temperature 97.9 F 02/24/25 17:17 Pulse Rate 64 02/24/25 17:17 Respiratory Rate 16 02/24/25 17:17 Blood Pressure 132/64 02/24/25 17:17 Pulse Oximetry 93 02/24/25 17:17 Oxygen Delivery Nasal Cannula 02/24/25 09:01 Oxygen Flow Rate 2 02/24/25 09:01 Lab Data Lab results reviewed: Yes I reviewed the patient's lab results. 02/24/25 09:36 02/24/25 09:19 Labs: Lab Results 02/24/25 02/24/25 02/24/25 Range/Units 09:19 09:19 09:36 WBC 13.1 H (4.5-10.0) K/mm3 RBC 5.62 (4.6-6.20) M/mm3 Hgb 15.2 (14.0-18.0) g/dL Hct 47.7 (42.0-52.0) % MCV 84.9 (80-100) fl MCH 27.0 (26-34) pg MCHC 31.9 L (32-36) g/dl RDW 19.3 H (11.5-14.5) % Plt Count 288 (150-375) k/mm3 MPV 10.8 H (7.4-10.4) fl Immature Gran % (Auto) 0.5 (0-0.5) % Neut % (Auto) 83.8 H (45.5-73.1) % Lymph % (Auto) 6.7 L (18.3-44.2) % [place] % (Auto) 8.4 (2.6-8.5) % Eos % (Auto) 0.4 (0-4.4) % Baso % (Auto) 0.2 (0.2-1.2) % Lymph # (Auto) 0.88 L (0.9-3.2) K/mm3 [place] # (Auto) 1.1 H (0.1-0.6) K/mm3 Eos # (Auto) 0.1 (0-0.3) K/mm3 Baso # (Auto) 0.0 (0.0-0.1) K/mm3 Abs Immat Gran (auto) 0.07 H (0.00-0.031) K/mm3 Absolute Neuts (auto) 10.9 H (1.3-6.7) K/mm3 Absolute Nucleated RBC 0.000 (0.0-0.012) K/mm3 Nucleated RBC % 0.0 (0.0-0.2) % PT 20.1 H (11.1-14.7) Seconds INR 1.8 APTT 25.7 (22.3-36.8) Seconds Sodium 140 (137-145) mmol/L Potassium 4.3 (3.4-5.0) mmol/L Chloride 108 H (98-107) mmol/L Carbon Dioxide 25 (22-30) mmol/L Anion Gap 7 (4-12) mmol/L BUN 18 (9-20) mg/dL Creatinine 1.27 (0.7-1.3) mg/dL Estim Creat Clear Calc 56 ml/min Estimated GFR 54 L (59 - ) Glucose 158 H (65-110) mg/dL POC Capillary Glucose (65-105) mg/dl Lactic Acid 1.6 (0.7-2.0) mmol/L Calcium 9.0 (8.4-10.2) mg/dL Total Bilirubin 1.0 (0.2-1.3) mg/dL AST 30 (17-59) U/L ALT 22 (6-50) U/L Alkaline Phosphatase 121 (38-126) U/L C-Reactive Protein 2.2 H (<1.0) mg/dL NT-Pro-B Natriuret Pep 94 Cancelled (19.9-100) pg/mL Total Protein 6.7 (6.3-8.2) g/dL Albumin 3.5 (3.5-5.1) g/dL Lipase 21 L (23-300) U/L Urine Color (Yellow) Urine Appearance (Clear) Urine pH (5.0-9.0) Ur Specific [place] (1.001-1.035) Urine Protein (Negative) mg/dL Urine Glucose (UA) (Negative) mg/dL Urine Ketones (Negative) mg/dL Ur Blood (Man) (Negative) Urine Nitrate (Negative) Urine Bilirubin (Negative) Urine Urobilinogen (<2.0) mg/dL Leukocyte Esterase Rfl (Negative) JOSE ROBERTO/UL Urine RBC (0-2) /hpf Urine WBC (0-3) /hpf Ur Squamous Epith Cells (Few) /hpf Urine Bacteria /hpf Urine Casts Nasal MRSA (PCR) (NOT DETECTE) Influenza A (RT-PCR) Negative (Negative) Influenza B (RT-PCR) Negative (Negative) RSV (RT-PCR) Negative (Negative) SARS-CoV-2 RNA (RT-PCR) Negative (Negative) 02/24/25 02/24/25 02/24/25 Range/Units 10:48 14:35 14:57 WBC (4.5-10.0) K/mm3 RBC (4.6-6.20) M/mm3 Hgb (14.0-18.0) g/dL Hct (42.0-52.0) % MCV (80-100) fl MCH (26-34) pg MCHC (32-36) g/dl RDW (11.5-14.5) % Plt Count (150-375) k/mm3 MPV (7.4-10.4) fl Immature Gran % (Auto) (0-0.5) % Neut % (Auto) (45.5-73.1) % Lymph % (Auto) (18.3-44.2) % [place] % (Auto) (2.6-8.5) % Eos % (Auto) (0-4.4) % Baso % (Auto) (0.2-1.2) % Lymph # (Auto) (0.9-3.2) K/mm3 [place] # (Auto) (0.1-0.6) K/mm3 Eos # (Auto) (0-0.3) K/mm3 Baso # (Auto) (0.0-0.1) K/mm3 Abs Immat Gran (auto) (0.00-0.031) K/mm3 Absolute Neuts (auto) (1.3-6.7) K/mm3 Absolute Nucleated RBC (0.0-0.012) K/mm3 Nucleated RBC % (0.0-0.2) % PT (11.1-14.7) Seconds INR APTT (22.3-36.8) Seconds Sodium (137-145) mmol/L Potassium (3.4-5.0) mmol/L Chloride (98-107) mmol/L Carbon Dioxide (22-30) mmol/L Anion Gap (4-12) mmol/L BUN (9-20) mg/dL Creatinine (0.7-1.3) mg/dL Estim Creat Clear Calc ml/min Estimated GFR (59 - ) Glucose (65-110) mg/dL POC Capillary Glucose 122 H (65-105) mg/dl Lactic Acid (0.7-2.0) mmol/L Calcium (8.4-10.2) mg/dL Total Bilirubin (0.2-1.3) mg/dL AST (17-59) U/L ALT (6-50) U/L Alkaline Phosphatase (38-126) U/L C-Reactive Protein (<1.0) mg/dL NT-Pro-B Natriuret Pep (19.9-100) pg/mL Total Protein (6.3-8.2) g/dL Albumin (3.5-5.1) g/dL Lipase (23-300) U/L Urine Color Dark yellow (Yellow) Urine Appearance Clear (Clear) Urine pH 5.0 (5.0-9.0) Ur Specific [place] 1.034 (1.001-1.035) Urine Protein 1+ H (Negative) mg/dL Urine Glucose (UA) 3+ H (Negative) mg/dL Urine Ketones Negative (Negative) mg/dL Ur Blood (Man) 1+ H (Negative) Urine Nitrate Negative (Negative) Urine Bilirubin Negative (Negative) Urine Urobilinogen 1.0 (<2.0) mg/dL Leukocyte Esterase Rfl Negative (Negative) JOSE ROBERTO/UL Urine RBC 11-20 H (0-2) /hpf Urine WBC 0-5 (0-3) /hpf Ur Squamous Epith Cells None seen (Few) /hpf Urine Bacteria None seen /hpf Urine Casts 3-5 Nasal MRSA (PCR) Not detected (NOT DETECTE) Influenza A (RT-PCR) (Negative) Influenza B (RT-PCR) (Negative) RSV (RT-PCR) (Negative) SARS-CoV-2 RNA (RT-PCR) (Negative) Imaging Data Radiologist's impression: Impressions Chest X-Ray 02/24/25 10:50 Impression: 1: Cardiomegaly with interstitial edema. Chest/Abdomen/Pelvis CTA 02/24/25 13:46 IMPRESSION: 1. Prominent groundglass opacities predominantly affecting the lower lobes. More focal consolidation present left lower lobe. Differential diagnosis includes infection, pulmonary edema, chronic interstitial lung disease, hypersensitivity pneumonitis. 2: Cholelithiasis. 3: Infrarenal abdominal aortic aneurysm measuring 4 cm. Discharge Plan Discharge Clinical Impression: Pneumonia, Generalized weakness, Hypoxia Patient Disposition: Still a Patient Condition: Serious
[2025-02-24 09:43] LABS: Hematocrit 47.7 % (42.0-52.0); Hemoglobin 15.2 g/dL (14.0-18.0); Immature Granulocyte Percent A 0.5 % (0-0.5); Lymphocytes Absolute Auto 0.88 K/mm3 (0.9-3.2); Mean Corpuscular HGB Conc 31.9 g/dl (32-36); Mean Corpuscular Hemoglobin 27.0 pg (26-34); Mean Corpuscular Volume 84.9 fl (80-100); Nucleated Red Blood Cells Absolute Auto 0.000 K/mm3 (0.0-0.012); Nucleated Red Blood Cells Perc 0.0 % (0.0-0.2); Platelet Count Result 288 k/mm3 (150-375); Red Blood Count 5.62 M/mm3 (4.6-6.20); White Blood Count 13.1 K/mm3 (4.5-10.0)
[2025-02-24 09:56] LABS: INR 1.8; Partial Thromboplastin Time 25.7 Seconds (22.3-36.8); Prothrombin Time 20.1 Seconds (11.1-14.7)
[2025-02-24 10:04] LABS: Alanine Aminotransferase 22 U/L (6-50); Albumin Level 3.5 g/dL (3.5-5.1); Alkaline Phosphatase 121 U/L (38-126); Anion Gap 7 mmol/L (4-12); Aspartate Amino Transferase 30 U/L (17-59); Bilirubin,Total 1.0 mg/dL (0.2-1.3); Blood Urea Nitrogen 18 mg/dL (9-20); Calcium 9.0 mg/dL (8.4-10.2); Carbon Dioxide 25 mmol/L (22-30); Chloride 108 mmol/L (98-107); Estimated CRCL calculation 56 ml/min; Estimated Glomerular Filt Rate 54; Glucose 158 mg/dL (65-110); Lipase 21 U/L (23-300); Potassium 4.3 mmol/L (3.4-5.0); Sodium 140 mmol/L (137-145); Total Protein 6.7 g/dL (6.3-8.2)
[2025-02-24 10:08] LABS: CRP 2.2 mg/dL (<1.0)
[2025-02-24 10:19] LABS: Influenza A QL RT-PCR Negative (Negative); Influenza B QL RT-PCR Negative (Negative); RSV RNA, RT-PCR Negative (Negative); SARS-CoV-2 RNA PCR Negative (Negative)
[2025-02-24 11:14] LABS: Add Urine Microscopic? YES; Appearance Urine Clear (Clear); Glucose Urine UA 3+ mg/dL (Negative); Leukocyte Esterase Ur Negative LEU/UL (Negative); Nitrate Urine Negative (Negative); Specific Grav Ur 1.034 (1.001-1.035)
[2025-02-24 11:50] LABS: NT Pro B Type Natriuretic Pept 94 pg/mL (19.9-100)
[2025-02-24] MEDS: VANCOMYCIN 2,000 MG/NS 500 ML 2,000 MG/500 ML BAG 250 MG IVPB (14:40)
[2025-02-24] MEDS: CEFEPIME 2 GM in SODIUM CHLORIDE 0.9% IV 50 ML 100 ML IVPB (14:46)
--- NOTE | 2025-02-24 15:31 | P.HP_ITS ---
H&P: HPI History of Present Illness Date/Time: 02/24/25 15:31 Chief Complaint: Weakness Narrative: 84-year-old male presents the hospital with increased weakness. He states that a few weeks ago he was admitted to the hospital with a UTI pneumonia and ended up going to rehab before a with home. at home he got progressively weak so he presented back to the hospital. In the emergency room he was hypoxic. However shows leukocytosis at 13.1, chloride of 108, GFR 54, creatinine of 1.27 with baseline being around 1.1, CRP being 2.2, UA being dark yellow with 11-[address] chest abdomen pelvis showed no pulmonary embolism.Prominent groundglass opacities predominantly affecting the lower lobes, Cholelithiasis, and Infrarenal abdominal aortic aneurysm measuring 4 cm. Review of Systems Review of Systems: 12 systems were reviewed and are negativ e except for as per HPI. FORMERLY [facility], [facility] Past Medical History Medical History Trochanteric bursitis, right hip Arthritis of elbow, left, degenerative Arthritis of right shoulder region Right shoulder strain Right arm pain Olecranon bursitis of right elbow Atrial fibrillation Rupture of left Achilles tendon Left ankle pain Constipation High cholesterol SOB (shortness of breath) Vision changes COPD (chronic obstructive pulmonary disease) Osteomyelitis, chronic BPH (benign prostatic hyperplasia) History of hemorrhoids History of pulmonary embolism History of deep vein thrombosis (DVT) of lower extremity Acute exacerbation of chronic obstructive airways disease Pneumonia due to COVID-19 virus Hypothyroidism determined by thyroid function test Weakness of both lower extremities Diabetes mellitus with neuropathy Ankle syndesmosis disruption Ankle fracture, bimalleolar, closed Infection of spine Chronic antibiotic suppression Chronic anticoagulation Recurrent deep vein thrombosis (DVT) Hypertension Spleen absent Rotator cuff arthropathy of right shoulder Surgical History Surgical History Total knee replacement status H/O bilateral cataract extraction H/O splenectomy S/P rotator cuff repair H/O colonoscopy with polypectomy History of pancreatic surgery Removal of pancreatic mass ([facility]) History of embolic filter insertion Hx of hernia repair History of back surgery x2 ([facility]), x1 ([facility]) H/O total knee replacement Bilaterally Family History Family History Grandparent Diabetes mellitus Father Family history of cardiovascular disease Intracranial aneurysm Mother Dvt femoral (deep venous thrombosis) Sibling Throat cancer Sister Acute myocardial infarction Brother Social History Social History Social History: The patient is and remarried; he lives with his . Patient was smoking up to 3 packs of cigarettes a day. He is retired from [employer]. He drinks occasionally denies any illicit drugs. He is listed as a DNR. He nominates His to be the individual who would make medical decisions for him if he is unable. Smoking packs per day: 3 Smoking cigarettes per day: 60.0 Years smoked: 20 Smoking pack-years: 60.00 Smoking status: Former smoker Tobacco type: cigarettes Second hand tobacco smoke exposure: No Smoking end date: 04/13/80 Alcohol intake: former Drinks per week: 1 Substance use: never Substance use type: does not use Do You Feel Safe in your Home?: Yes Lack of Transportation: No Lack of Food: Never True Current Housing: I Have Housing Concerned About Future Housing: No Difficulty Paying Gas/Electric Bills: No Difficulty Paying for Meds: No Currently Unemployed: No Education: High School Diploma/GED Difficulty w/ Childcare or Family Care: No Living arrangements: with family Occupation/Education: retired Gender identity (if verbalized by the patient): Male Additional gender identity comments: Lives with Sexual Orientation (if Verbalized by the Patient): Straight or Heterosexual Spiritual care concerns: No Agree to blood products: Yes Meds Home Medications and Allergies Home Medications ?Medication ?Instructions ?Recorded ?Confirmed ?Type flecainide 50 mg tablet 50 mg PO Q12H 06/21/19 02/24/25 History docusate sodium 50 mg capsule 50 mg PO BID 06/14/20 02/24/25 History loratadine 10 mg capsule 10 mg PO DAILY 06/14/20 02/24/25 History lactobacillus combination no.9 4 4,000 mmu cells PO DAILY 11/07/21 02/24/25 History billion cell capsule (Adult 50 Plus Probiotic) pen needle, diabetic 32 gauge x #100 ea 04/22/22 02/24/25 Rx 1/6 (NovoFine Plus) wheeled walker XL #1 ea 03/19/23 02/24/25 Rx blood sugar diagnostic (IngagePatientuch #100 strips 05/19/23 02/24/25 Rx Ultra Test strips) acetaminophen 650 mg 650 mg PO Q12H PRN pain 1-4 10/12/23 02/24/25 History tablet,extended release (Tylenol Arthritis Pain) warfarin 6 mg tablet 6 mg PO DAILY #30 tabs 12/09/23 02/24/25 Rx lancets 33 gauge (OneTouch Delica #300 ea 03/07/24 02/24/25 Rx Plus Lancet) alpha lipoic acid 200 mg capsule 200 mg PO DAILY 04/13/24 02/24/25 History cholecalciferol (vitamin D3) 50 50 mcg PO DAILY 04/13/24 02/24/25 History mcg (2,000 unit) capsule compression stockings knee high #1 ea 05/04/24 02/24/25 Rx 15-20mmHG blood-glucose sensor (FreeStyle #2 ea 05/27/24 02/24/25 Rx Santiago 3 Plus Sensor device) diabetic shoes #1 ea 05/27/24 02/24/25 Rx knee high medium compression #1 ea 05/27/24 02/24/25 Rx stockings lidocaine 4 % topical patch 1 patch topical DAILY PRN pain #30 05/27/24 02/24/25 Rx (Salonpas (lidocaine)) ea wheeled walker #1 ea 06/06/24 02/24/25 Rx blood-glucose,specialty sales consultant,cont #2 ea 07/03/24 02/24/25 Rx (FreeStyle [place] 3 [place]) furosemide 20 mg tablet See Rx Instructions .Route 07/11/24 02/24/25 Rx .COMPLEX #90 tabs metoprolol tartrate 25 mg tablet 12.5 mg (1/2 x 25 mg) PO BID #90 07/29/24 02/24/25 Rx tabs tamsulosin 0.4 mg capsule 0.8 mg (2 x 0.4 mg) PO DAILY #180 08/14/24 02/24/25 Rx caps pregabalin 150 mg capsule 150 mg PO TID #270 caps 08/24/24 02/24/25 Rx fluticasone fur. 200 mcg-umeclid 1 inh inhalation DAILY #60 ea 09/18/24 02/24/25 Rx 62.5 mcg-vilant 25 mcg inhalat.powder (Trelegy Ellipta) atorvastatin 20 mg tablet 20 mg PO DAILY #90 tabs 09/22/24 02/24/25 Rx levothyroxine 50 mcg tablet 50 mcg PO DAILY #90 tabs 09/22/24 02/24/25 Rx triamcinolone acetonide 0.1 % 1 applic topical BID #80 grams 10/03/24 02/24/25 Rx topical cream insulin aspart See Rx Instructions subcut 10/04/24 02/24/25 Rx (niacinamide)(U-100) 100 unit/mL(3 .COMPLEX #15 mL mL) subcutaneous pen (Fiasp FlexTouch U-100 Insulin) baclofen 10 mg tablet 10 mg PO TID #270 tabs 12/22/24 02/24/25 Rx omeprazole 20 mg capsule,delayed 20 mg PO DAILY #90 caps 12/22/24 02/24/25 Rx release pen needle, diabetic 32 gauge x #100 ea 01/06/25 02/24/25 Rx 5/32 skin grants analyst adhesive bandage for #8 ea 01/06/25 02/24/25 Rx Freestyle Santiago empagliflozin 25 mg tablet 25 mg PO DAILY #30 tabs 02/16/25 02/24/25 Rx (Jardiance) hydrocodone 5 mg-acetaminophen 325 1 tablet PO Q6H PRN Pain Rated 6 02/16/25 02/24/25 Rx mg tablet Or Greater #20 tabs insulin glargine 100 unit/mL 32 unit (0.32 mL) subcut HS #10 mL 02/16/25 02/24/25 Rx subcutaneous solution (Lantus U-100 Insulin) azelastine 137 mcg (0.1 %) nasal 137 mcg (0.137 mL) intranasal Q12H 02/22/25 02/24/25 Rx spray #30 mL diclofenac sodium 1 % topical gel 4 g topical QID PRN joint pain 02/24/25 02/24/25 History Allergies Allergy/AdvReac Type Severity Reaction Status Date / Time No Known Drug Allergies Allergy Unknown Unknown Verified 02/02/25 19:47 Vital Signs Vital Signs - 24 hr 02/24/25 09:01 02/24/25 10:00 02/24/25 10:53 Temperature 97.8 F 97.9 F 97.9 F Pulse Rate 74 65 64 Respiratory Rate 18 66 H 18 Blood Pressure 141/69 H 136/58 L 134/60 Pulse Oximetry 93 98 94 Oxygen Delivery Nasal Cannula Oxygen Flow Rate 2 02/24/25 11:30 02/24/25 12:30 02/24/25 13:30 Temperature 97.9 F 97.9 F 97.9 F Pulse Rate 62 65 62 Respiratory Rate 18 18 16 Blood Pressure 131/55 L 147/63 H 126/73 Pulse Oximetry 94 94 94 Oxygen Delivery Oxygen Flow Rate 02/24/25 14:30 Temperature 97.9 F Pulse Rate 65 Respiratory Rate 18 Blood Pressure 124/74 Pulse Oximetry 92 Oxygen Delivery Oxygen Flow Rate Exam Narrative: General: Chronically-ill HEENT: normocephalic, atraumatic. Mucous membranes moist. EOMI, PERRLA, bilateral sclera anicteric, no conjunctival injection. Neck supple without JVD, lymphadenopathy, or bruit. Respiratory: clear to ascultation bilaterally. No rales/rhonic/wheezes. Cardiovascular: Regular rate and rhythm, normal S1-S2 upon ascultation. No murmurs, rubs, or clicks. PMI is nondisplaced, capillary refill less than 3 second. Abdomen: Soft, round, no pulsatile masses, nondistended and nontender. No rebound, no guarding. No CVA tenderness, no hepatosplenomegaly. Bowel sounds present to all four quadrants. No high pitch or tinkling sounds, resonant to percussion. Extremities: No cyanosis, clubbing, or edema present. Pulses are palpable 2/2. Active ROM to all four extremities. Neuro: Alert and orientated x 4. PERRLA. Cranial nerves 2-12 intact without focal deficit. Skin: Warm, dry, and intact, without rash, erythema, or lesion. Psych: pleasant, cooperative, normal speech, normal affect, no hallucinations, no dysarthia H&P: Results Labs Labs: Short CBC 02/24/25 Range/Units 09:36 WBC 13.1 H (4.5-10.0) K/mm3 Hgb 15.2 (14.0-18.0) g/dL Hct 47.7 (42.0-52.0) % Plt Count 288 (150-375) k/mm3 BMP 02/24/25 09:19 Sodium 140 Potassium 4.3 Chloride 108 H Carbon Dioxide 25 BUN 18 Creatinine 1.27 Glucose 158 H Calcium 9.0 Liver Function 02/24/25 Range/Units 09:19 Total Bilirubin 1.0 (0.2-1.3) mg/dL AST 30 (17-59) U/L ALT 22 (6-50) U/L Alkaline Phosphatase 121 (38-126) U/L Albumin 3.5 (3.5-5.1) g/dL Urine 02/24/25 Range/Units 10:48 Urine Color Dark yellow (Yellow) Urine Appearance Clear (Clear) Urine pH 5.0 (5.0-9.0) Ur Specific [place] 1.034 (1.001-1.035) Urine Protein 1+ H (Negative) mg/dL Urine Glucose (UA) 3+ H (Negative) mg/dL Assessment and Plan Assessment and plan (1) Generalized weakness: Code(s): R53.1 - Weakness Status: Acute Assessment and Plan: Likely secondary to pneumonia, prolonged illness and pulmonary edema PT OT eval and treat (2) Pneumonia: Code(s): J18.9 - Pneumonia, unspecified organism Status: Resolved Assessment and Plan: Patient was recently admitted for UTI pneumonia Started on cefepime vancomycin Guaifenesin DuGelacio Possible red man syndrome on vancomycin (3) Pulmonary edema: Code(s): J81.1 - Chronic pulmonary edema Status: Acute Assessment and Plan: IV Lasix b.i.d. Hold home Lasix (4) RODRIGUEZ (acute kidney injury): Code(s): N17.9 - Acute kidney failure, unspecified Status: Acute Assessment and Plan: No IVF due to fluid overload Monitor kidney function while on Lasix BMP in the morning (5) Hyperlipidemia: Qualifiers: Hyperlipidemia type: mixed hyperlipidemia Qualified Code(s): E78.2 - Mixed hyperlipidemia Code(s): E78.5 - Hyperlipidemia, unspecified Status: Acute Assessment and Plan: Continue statin (6) Diabetes mellitus with neuropathy: Qualifiers: Diabetes mellitus retirement insulin use: with terminal worker use Diabetes mellitus type: type 2 Qualified Code(s): E11.40 - Type 2 diabetes mellitus with diabetic neuropathy, unspecified; Z79.4 - nursing home (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 Code(s): E11.40 - Type 2 diabetes mellitus with diabetic neuropathy, unspecified Status: Acute Assessment and Plan: Diabetic diet Accu-Cheks a.c. HS Sliding scale insulin and Lantus (7) Abdominal aneurysm without mention of rupture: Code(s): I71.40 - Abdominal aortic aneurysm, without rupture, unspecified Status: Acute Assessment and Plan: Not seen on previous CTs Patient denies acute back pain or abdominal pain Patient will need follow-up with vascular (8) Atrial fibrillation with rapid ventricular response: Code(s): I48.91 - Unspecified atrial fibrillation Status: Acute Assessment and Plan: IV metoprolol Restart home metoprolol Quality VTE Prophylaxis VTE prophylaxis: mechanical ordered and pharmacologic ordered Hospitalist MIPS Advance Care Plan I have confirmed that the patient's Advanced Care Plan is present, code status is documented, or surrogate decision maker is listed in patient medical record.: Yes Medication Reconciliation I have utilized all available resources to obtain, update and review the patients current medications (includes all prescriptions, OTC, herbals, cannabis, and nutritional supplements).: Yes
[2025-02-24 15:52] LABS: MRSA (PCR) NOT DETECTED (NOT DETECTE)
--- NOTE | 2025-02-24 17:51 | ADMGEN ---
This patient, Neal Amaro, was admitted to Medical Room 341-01. Patient/family oriented to hospital policies and general routines including ID bracelet, bed and alarms, visiting hours, pain management, procedures, bathroom and other care routines, personal items, smoking policy, room service/diet, and visiting hours. Information on how to activate the Rapid Response Team has been discussed. Patient/Family are encouraged to report perceived risks to care and to ask questions if they do not understand what they are told or what they should do.
[2025-02-24] MEDS: INSULIN GLARGINE (*BKC) 100 UNITS/ML 36 UNITS SUB-Q (20:55)
[2025-02-24] MEDS: FUROSEMIDE INJ 40 MG/4 ML VIAL IV PUSH (20:57)
[2025-02-24] MEDS: ALBUTEROL SULFATE NEB 2.5 MG/3 ML INH INHALATION (21:16)
--- NOTE | 2025-02-24 22:30 | PC.NURSE ---
Patient telemetry alerting 130s-150s. Bedside apical count at 65 irregular. Patient is shaking stating that he's cold.
--- NOTE | 2025-02-24 22:47 | PC.NURSE ---
Patient pedal pulses assessed with doppler rate of 152. Patient states that he did not take daily medications. Unable to contact Holly at this time, followed up with Otoniel. Awaiting new orders.
--- NOTE | 2025-02-24 22:56 | ECG_ITS ---
Test Date: 2025-02-24 23:09:46 Measurements Intervals [place] Rate: 115 P: 0 ND: 0 QRS: 41 QRSD: 90 T: 63 QT: 276 QTc: 382 Interpretive Statements ATRIAL FIBRILLATION WITH RAPID VENTRICULAR RESPONSE WITH ABERRANT CONDUCTION OR VENTRICULAR PREMATURE COMPLEXES LOW QRS VOLTAGE IN EXTREMITY LEADS [QRS DEFLECTION < 0.5 mV IN LIMB LEADS] ST DEPRESSION, CONSIDER SUBENDOCARDIAL INJURY [0.1+ mV ST DEPRESSION] Compared to ECG 02/24/2025 09:04:11 Ventricular premature complex(es) now present Aberrant conduction of supraventricular beat(s) now present Low QRS voltage now present ST (T wave) deviation now present Sinus rhythm no longer present First degree AV block no longer present Electronically Signed On 02-25-2025 21:32:06 CDT by Curtis Hughes M.D.
[2025-02-24] MEDS: METOPROLOL TARTRATE INJ 5 MG/5 ML VIAL IV PUSH (23:05)
[2025-02-24] MEDS: WARFARIN (*PBKC) 3 MG TABLET 6 MG PO (23:47)
[2025-02-24 23:53] LABS: Magnesium 1.9 mg/dL (1.6-2.3)
[2025-02-24] MEDS: METOPROLOL TARTRATE 12.5 MG TABLET PO (23:54)
[2025-02-25] VITALS (21 sets, daily range): BP systolic 98–114; BP diastolic 52–88; PULSE 68–142; RESP 16–20; TEMP 35.9–36.9; O2SAT 93–96
--- NOTE | 2025-02-25 | ECHO_ITS ---
Patient Info Name: Neal Amaro Age: 84 years : 1940 Gender: Male Ht: 74 in Wt: 330 lbs BSA: 2.86 m2 HR: 72 bpm BP: 114 / 88 mmHg Technical Quality: Poor Exam Date: 02/25/2025 10:10 AM Patient Status: I Admit Date: 02/25/2025 Exam Type: CA echo dop color flow w con Complete two-dimensional, color flow and Doppler transthoracic echocardiogram is performed with contrast to opacify the left ventricle and to improve the deliniation of the left ventricle endocardial borders. Staff Referring Physician: Marcell Carson Asbestos Shingle Inspector: Luz Melendez Attending Provider: Ayesha Stewart MD Contrast/Agitated Saline Contrast/Ag. Saline: Definity Amount: 2.00 ml Administered By: Luz Melendez Existing IV Access: Yes IV Access Condition: patent with no signs of infiltration Reason for Poor Study: patient body habitus Summary 1. Overall poor quality acoustic windows with very limited views. 2. In the available poor quality images, there appears to be preserved biventricular systolic function without significant valvular abnormalities. Left Ventricle Poor quality images. Overall the left ventricular systolic function appears to be preserved. Right Ventricle The right ventricle is normal in size and systolic function. Left Atria The left atrium is normal size. Right Atria The right atrium is normal size. Atrial Septum The atrial septum is not well visualized. Aortic Valve The aortic valve is trileaflet and sclerotic. There is no aortic stenosis. There is no aortic regurgitation. Pulmonic Valve The pulmonic valve is not visualized. Mitral Valve The mitral valve is grossly normal. Tricuspid Valve The tricuspid valve is not well visualized. Pericardium/Pleural Prominent epicardial fat pad. Inferior Vena Cava Inferior vena cava is not well visualized. Aorta The aortic root at the level of the sinus of Valsalva measures 3.9 cm in diameter. Left Ventricular Outflow Tract Name Value Normal LVOT 2D LVOT Diameter 2.0 cm LVOT Doppler LVOT Peak Velocity 105 cm/s LVOT Peak Gradient 4 mmHg LVOT Mean Gradient 2 mmHg LVOT VTI 17 cm LVOT Stroke Volume 55 ml LVOT CO 3.9 l/min LVOT CI 1.4 l/min/m2 Pulmonic Valve Name Value Normal RVOT Doppler RVOT Peak Velocity 58 cm/s RVOT Peak Gradient 1 mmHg PV Doppler PV Peak Velocity 92 cm/s PV Peak Gradient 3 mmHg Mitral Valve Name Value Normal MV Diastolic Function MV E Peak Velocity 61 cm/s MV A Peak Velocity 44 cm/s MV E/A 1.4 MV Decel Time (PW) 158 ms MV Annular TDI MV E/e' (Septal) 13.5 MV E/e' (Lateral) 6.2 MV E/e' (Average) 9.8 Aortic Valve Name Value Normal AV Doppler AV Peak Velocity 117 cm/s AV Peak Gradient 5 mmHg AV Area (Cont Eq Serjio) 2.9 cm2 AV DI (Serjio) 0.90 AV Regurgitation 2D LVOT Area 3.2 cm2 Ventricles Name Value Normal LV Dimensions 2D/MM IVS Diastolic Thickness (2D) 1.2 cm 0.6-1.0 LVOT Diameter 2.0 cm LV Fractional Shortening/Ejection Fraction 2D/MM LV Diastolic Volume (4C MOD) 77 ml LV EF (4C MOD) 68 % LV Diastolic Length (4C) 7.5 cm LV Systolic Length (4C) 5.8 cm LV Stroke Volume (4C MOD) 52 ml Atria Name Value Normal LA Dimensions LA Volume (4C A-L) 57 ml LA Volume (BP A-L) 58 ml RA Dimensions RA Systolic Major [place] Length (4C) 5.1 cm 2.1-2.7 RA Area (4C) 13.9 cm2 <=18.0 Report Signatures
--- NOTE | 2025-02-25 00:55 | PC.NURSE ---
PHARMACY CALLED TO HAVE MAG RIDER AND METOPROLOL VERIFIED.
[2025-02-25] MEDS: MAGNESIUM SULF 1 GM/D5W 100 ML 1 GM/100 ML BAG IVPB (01:03)
[2025-02-25] MEDS: METOPROLOL TARTRATE INJ 5 MG/5 ML VIAL IV PUSH ×2 (01:10→03:25)
[2025-02-25] MEDS: CEFEPIME 2 GM in SODIUM CHLORIDE 0.9% IV 50 ML 100 ML IVPB ×2 (03:25→14:50)
[2025-02-25 05:52] LABS: Hematocrit 52.6 % (42.0-52.0); Hemoglobin 16.9 g/dL (14.0-18.0); Immature Granulocyte Percent A 0.8 % (0-0.5); Lymphocytes Absolute Auto 0.34 K/mm3 (0.9-3.2); Mean Corpuscular HGB Conc 32.1 g/dl (32-36); Mean Corpuscular Hemoglobin 27.1 pg (26-34); Mean Corpuscular Volume 84.3 fl (80-100); Nucleated Red Blood Cells Absolute Auto 0.020 K/mm3 (0.0-0.012); Nucleated Red Blood Cells Perc 0.2 % (0.0-0.2); Platelet Count Result 294 k/mm3 (150-375); Red Blood Count 6.24 M/mm3 (4.6-6.20); White Blood Count 9.5 K/mm3 (4.5-10.0)
[2025-02-25 06:03] LABS: INR 1.9; Prothrombin Time 20.9 Seconds (11.1-14.7)
[2025-02-25] MEDS: METOPROLOL TARTRATE 12.5 MG TABLET PO (06:12)
[2025-02-25] MEDS: LEVOTHYROXINE SODIUM 50 MCG TABLET PO (06:13)
[2025-02-25 06:17] LABS: Anion Gap 9 mmol/L (4-12); Blood Urea Nitrogen 19 mg/dL (9-20); Calcium 8.8 mg/dL (8.4-10.2); Carbon Dioxide 21 mmol/L (22-30); Chloride 107 mmol/L (98-107); Estimated CRCL calculation 48 ml/min; Estimated Glomerular Filt Rate 40; Glucose 148 mg/dL (65-110); Potassium 4.2 mmol/L (3.4-5.0); Sodium 137 mmol/L (137-145)
--- NOTE | 2025-02-25 06:58 | P.PNIM_ITS ---
Progress Note: A&P Assessment and Plan (1) Sepsis: Code(s): A41.9 - Sepsis, unspecified organism Status: Acute Assessment and Plan: -criteria met on admission with tachycardia, WBC 13 - improved - LA WNL - hemodynamically stable - 30cc/kg bolus deferred due to concern for pulmonary edema - suspected source is pneumonia, management as below - blood cultures pending (2) Pneumonia: Code(s): J18.9 - Pneumonia, unspecified organism Status: Resolved Assessment and Plan: -Patient was recently admitted for UTI, pneumonia - CT chest with ground glass opacities in the bilateral lower lobes with more focal consolidation in the left lower lobe -admit WBC 13, improving on repeat - viral PCR negative -Started on cefepime vancomycin on admission, MRSA DNA negative so will stop vancomycin - follow-up blood cultures - check sputum culture, urine antigens, procalcitonin (3) Atrial fibrillation with rapid ventricular response: Code(s): I48.91 - Unspecified atrial fibrillation Status: Acute Assessment and Plan: -initial EKG sinus rhythm, went into Afib with RVR overnight. HR improved this AM, still Afib on telemetry. - managed on metoprolol and flecainide at home. Defer restarting flecainide to cardiology as INR slightly subtherapeutic. - continue coumadin - cardio consulted, appreciate recs (4) RODRIGUEZ (acute kidney injury): Code(s): N17.9 - Acute kidney failure, unspecified Status: Acute Assessment and Plan: -Cr trended up to 1.65 after recieving lasix last night - baseline Cr around 1.0 - hold lasix, monitor I&Os - consider nephrology consult if not improving tomorrow AM (5) Pulmonary edema: Code(s): J81.1 - Chronic pulmonary edema Status: Acute Assessment and Plan: -admit imaging with pulmonary edema vs. pneumonia - no hypoxia or increased dyspnea - no previous echo to review, ordered - BNP WNL - appears euvolemic this AM - received IV lasix overnight, held due to RODRIGUEZ - hold Jardiance - monitor volume status (6) Generalized weakness: Code(s): R53.1 - Weakness Status: Acute Assessment and Plan: -Likely secondary to pneumonia, prolonged illness, and pulmonary edema - was discharge from [facility] 02/16/25 -PT OT eval and treat (7) Hyperlipidemia: Qualifiers: Hyperlipidemia type: mixed hyperlipidemia Qualified Code(s): E78.2 - Mixed hyperlipidemia Code(s): E78.5 - Hyperlipidemia, unspecified Status: Acute Assessment and Plan: -Continue statin (8) Diabetes mellitus with neuropathy: Qualifiers: 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 Diabetes mellitus type: type 2 Qualified Code(s): E11.40 - Type 2 diabetes mellitus with diabetic neuropathy, unspecified; Z79.4 - intermediate frame tender (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 Confirmed with patient. DVT prophylaxis- coumadin Subjective Date/time seen: 02/25/25 06:58 Interval history: 84-year-old male presents the hospital with increased weakness. Patient seen examined at bedside. Feeling better this AM, but still with significant generalized weakness. Denies productive cough, shortness of breath, chest pain. Review of Systems Review of Systems: All systems reviewed & are unremarkable except as noted in HPI and below Exam Narrative: General: chronically ill-appearing Eyes: EOMI ENT: neck supple Cardiovascular: irregularly irregular Respiratory: Clear to auscultation, respirations even and unlabored on RA Gastrointestinal: Soft, non tender Genitourinary: no suprapubic tenderness Musculoskeletal: trace BLE edema. Skin: warm, dry Neuro: Alert. Strength 4+/5 in BUE/BLEs. Psych: Mood appropriate Objective Data Vital Signs Vital Signs: Vital Signs - 24 hr 02/24/25 09:01 02/24/25 10:00 02/24/25 10:53 Temperature 97.8 F 97.9 F 97.9 F Pulse Rate 74 65 64 Respiratory Rate 18 66 H 18 Blood Pressure 141/69 H 136/58 L 134/60 Pulse Oximetry 93 98 94 Oxygen Delivery Nasal Cannula Oxygen Flow Rate 2 02/24/25 11:30 02/24/25 12:30 02/24/25 13:30 Temperature 97.9 F 97.9 F 97.9 F Pulse Rate 62 65 62 Respiratory Rate 18 18 16 Blood Pressure 131/55 L 147/63 H 126/73 Pulse Oximetry 94 94 94 Oxygen Delivery Oxygen Flow Rate 02/24/25 14:30 02/24/25 15:30 02/24/25 16:30 Temperature 97.9 F 97.8 F 97.9 F Pulse Rate 65 64 64 Respiratory Rate 18 18 18 Blood Pressure 124/74 132/78 132/84 Pulse Oximetry 92 100 98 Oxygen Delivery Oxygen Flow Rate 02/24/25 17:17 02/24/25 18:20 02/24/25 18:50 Temperature 97.9 F 96.7 F L Pulse Rate 64 88 Respiratory Rate 16 26 H Blood Pressure 132/64 128/90 Pulse Oximetry 93 96 Oxygen Delivery Room Air Oxygen Flow Rate 02/24/25 20:00 02/24/25 20:00 02/24/25 21:00 Temperature Pulse Rate 79 99 Respiratory Rate 22 H Blood Pressure Pulse Oximetry Oxygen Delivery Room Air Oxygen Flow Rate 02/24/25 21:15 02/24/25 22:00 02/24/25 23:05 Temperature 97.5 F L Pulse Rate 96 86 147 H Respiratory Rate 20 18 Blood Pressure 140/75 Pulse Oximetry 99 Oxygen Delivery Oxygen Flow Rate 02/24/25 23:19 02/24/25 23:54 02/25/25 00:00 Temperature 97.8 F Pulse Rate 146 H 136 H 142 H Respiratory Rate 22 H Blood Pressure Pulse Oximetry 95 Oxygen Delivery Oxygen Flow Rate 02/25/25 00:45 02/25/25 01:10 02/25/25 03:10 Temperature 97.7 F Pulse Rate 142 H 136 H 136 H Respiratory Rate 20 Blood Pressure 99/72 L 98/56 L Pulse Oximetry 96 Oxygen Delivery Oxygen Flow Rate 02/25/25 03:25 02/25/25 04:00 02/25/25 06:12 Temperature Pulse Rate 141 H 132 H 113 H Respiratory Rate Blood Pressure Pulse Oximetry Oxygen Delivery Oxygen Flow Rate Intake/Output Intake/Output: Intake & Output 02/22/25 02/23/25 02/24/25 02/25/25 23:59 23:59 23:59 23:59 Intake Total 550 100 Output Total 300 900 Balance 250 -800 Meds/Results Medications: Active Medications Generic Name Dose Route Start Last Admin Trade Name Freq PRN Reason Stop Dose Admin Acetaminophen 650 mg 02/24/25 16:19 Acetaminophen 325 Mg Tablet PO Q4H PRN Mild Pain (1-3) or Fever Hydrocodone Bitart/Acetaminophen 1 tab 02/24/25 16:19 Hydrocodone/Acetaminophen (*Crx) 5-325 Mg Tablet PO Q4H PRN Moderate Pain (4-6) Albuterol 2.5 mg 02/24/25 20:00 02/25/25 02:57 Albuterol Sulfate Neb 2.5 Mg/3 Ml Inh INHALATION Not Given Q6HRT AUDELIA Atorvastatin Calcium 20 mg 02/25/25 09:00 Atorvastatin 20 Mg Tablet PO DAILY AUDELIA Azelastine HCl 1 spray 02/25/25 09:00 Azelastine Hcl Nasal 0.1% 137 Mcg/Spr 30 Ml Btl NASAL Q12HR AUDELIA Baclofen 10 mg 02/25/25 09:00 Baclofen 10 Mg Tablet PO TID AUDELIA Dextrose 12.5 gm 02/24/25 16:19 Dextrose 50% 25 Gm/50 Ml Syringe IV PUSH PRN PRN Hypoglycemia Protocol Diphenhydramine HCl 25 mg 02/24/25 18:20 02/24/25 19:05 Diphenhydramine Hcl Inj 50 Mg/Ml Vial IV PUSH 25 mg Q4H PRN Administration Itching Docusate Sodium 100 mg 02/24/25 17:00 02/24/25 19:05 Docusate Sodium 100 Mg Capsule PO Not Given BID AUDELIA Docusate Sodium 100 mg 02/25/25 09:00 Docusate Sodium 100 Mg Capsule PO Q12HR AUDELIA Empagliflozin 25 mg 02/25/25 09:00 Empagliflozin 25 Mg Tablet PO DAILY AUDELIA Fluticasone/Umeclidinium/Vilanterol 1 puff 02/25/25 08:00 Fluticasone/Umeclidin/Vilanter 200-62.5-25 Mcg Ellipta INHALATION DAILYRT AUDELIA Furosemide 40 mg 02/24/25 21:00 02/24/25 20:57 Furosemide Inj 40 Mg/4 Ml Vial IV PUSH 40 mg Q12HR AUDELIA Administration Glucagon 1 mg 02/24/25 16:19 Glucagon For Inj 1 Mg Vial IM PRN PRN Hypoglycemia Protocol Glucose 15 gm 02/24/25 16:19 Glucose Oral Gel 15 Gm Of Glucse In 37.5 Gm Tube PO PRN PRN Hypoglycemia Protocol Cefepime HCl 2 gm/ Sodium 50 mls @ 100 mls/hr 02/25/25 03:00 02/25/25 03:25 Chloride IVPB 100 mls/hr Q12H AUDELIA Administration Dextrose 1,000 mls @ 100 mls/hr 02/24/25 16:19 Dextrose 5% 1,000 Ml IVPB PRN PRN Hypoglycemia Protocol Insulin Aspart 2 - 5 units 02/24/25 17:00 02/24/25 19:06 Insulin Aspart (*Bkc) 100 Units/Ml SUB-Q Not Given TIDWM [facility] Protocol Insulin Glargine 36 units 02/24/25 21:00 02/24/25 20:55 Insulin Glargine (*Bkc) 100 Units/Ml SUB-Q 36 units HS AUDELIA Administration Levothyroxine Sodium 50 mcg 02/25/25 06:30 02/25/25 06:13 Levothyroxine Sodium 50 Mcg Tablet PO 50 mcg DAILY@0630 AUDELIA Administration Loratadine 10 mg 02/25/25 09:00 Loratadine 10 Mg Tablet PO DAILY [facility] Metoprolol Tartrate 12.5 mg 02/24/25 23:15 02/25/25 06:12 Metoprolol Tartrate 12.5 Mg Tablet PO 12.5 mg Q12HR [facility] Administration Pregabalin 150 mg 02/25/25 09:00 Pregabalin (*Crx) 75 Mg Capsule PO TID [facility] Tamsulosin HCl 0.8 mg 02/25/25 09:00 Tamsulosin Hcl 0.4 Mg Capsule PO DAILY [facility] Vancomycin HCl 1 each 02/24/25 14:21 Vancomycin For Acute Kidney Injury IVPB PRN PRN Vancomycin Protocol Warfarin Sodium 6 mg 02/24/25 23:20 02/24/25 23:47 Warfarin (*Pbkc) 3 Mg Tablet PO 6 mg DAILY@1700 [facility] Administration Radiology Results: ITS Impressions Chest X-Ray 02/24/25 10:50 Impression: 1: Cardiomegaly with interstitial edema. Chest/Abdomen/Pelvis CTA 02/24/25 13:46 IMPRESSION: 1. Prominent groundglass opacities predominantly affecting the lower lobes. More focal consolidation present left lower lobe. Differential diagnosis includes infection, pulmonary edema, chronic interstitial lung disease, hypersensitivity pneumonitis. 2: Cholelithiasis. 3: Infrarenal abdominal aortic aneurysm measuring 4 cm. Labs Labs: Laboratory Results - last 24 hr 02/24/25 02/24/25 02/24/25 09:19 09:19 09:36 WBC 13.1 H RBC 5.62 Hgb 15.2 Hct 47.7 MCV 84.9 MCH 27.0 MCHC 31.9 L RDW 19.3 H Plt Count 288 MPV 10.8 H Immature Gran % (Auto) 0.5 Neut % (Auto) 83.8 H Lymph % (Auto) 6.7 L [place] % (Auto) 8.4 Eos % (Auto) 0.4 Baso % (Auto) 0.2 Lymph # (Auto) 0.88 L [place] # (Auto) 1.1 H Eos # (Auto) 0.1 Baso # (Auto) 0.0 Abs Immat Gran (auto) 0.07 H Absolute Neuts (auto) 10.9 H Absolute Nucleated RBC 0.000 Nucleated RBC % 0.0 PT 20.1 H INR 1.8 APTT 25.7 Sodium 140 Potassium 4.3 Chloride 108 H Carbon Dioxide 25 Anion Gap 7 BUN 18 Creatinine 1.27 Estim Creat Clear Calc 56 Estimated GFR 54 L Glucose 158 H POC Capillary Glucose Lactic Acid 1.6 Calcium 9.0 Magnesium Total Bilirubin 1.0 AST 30 ALT 22 Alkaline Phosphatase 121 C-Reactive Protein 2.2 H NT-Pro-B Natriuret Pep 94 Cancelled Total Protein 6.7 Albumin 3.5 Lipase 21 L Urine Color Urine Appearance Urine pH Ur Specific [place] Urine Protein Urine Glucose (UA) Urine Ketones Ur Blood (Man) Urine Nitrate Urine Bilirubin Urine Urobilinogen Leukocyte Esterase Rfl Urine RBC Urine WBC Ur Squamous Epith Cells Urine Bacteria Urine Casts Nasal MRSA (PCR) Influenza A (RT-PCR) Negative Influenza B (RT-PCR) Negative RSV (RT-PCR) Negative SARS-CoV-2 RNA (RT-PCR) Negative 02/24/25 02/24/25 02/24/25 10:48 14:35 14:57 WBC RBC Hgb Hct MCV MCH MCHC RDW Plt Count MPV Immature Gran % (Auto) Neut % (Auto) Lymph % (Auto) [place] % (Auto) Eos % (Auto) Baso % (Auto) Lymph # (Auto) [place] # (Auto) Eos # (Auto) Baso # (Auto) Abs Immat Gran (auto) Absolute Neuts (auto) Absolute Nucleated RBC Nucleated RBC % PT INR APTT Sodium Potassium Chloride Carbon Dioxide Anion Gap BUN Creatinine Estim Creat Clear Calc Estimated GFR Glucose POC Capillary Glucose 122 H Lactic Acid Calcium Magnesium Total Bilirubin AST ALT Alkaline Phosphatase C-Reactive Protein NT-Pro-B Natriuret Pep Total Protein Albumin Lipase Urine Color Dark yellow Urine Appearance Clear Urine pH 5.0 Ur Specific [place] 1.034 Urine Protein 1+ H Urine Glucose (UA) 3+ H Urine Ketones Negative Ur Blood (Man) 1+ H Urine Nitrate Negative Urine Bilirubin Negative Urine Urobilinogen 1.0 Leukocyte Esterase Rfl Negative Urine RBC 11-20 H Urine WBC 0-5 Ur Squamous Epith Cells None seen Urine Bacteria None seen Urine Casts 3-5 Nasal MRSA (PCR) Not detected Influenza A (RT-PCR) Influenza B (RT-PCR) RSV (RT-PCR) SARS-CoV-2 RNA (RT-PCR) 02/24/25 02/24/25 02/24/25 18:04 20:32 23:25 WBC RBC Hgb Hct MCV MCH MCHC RDW Plt Count MPV Immature Gran % (Auto) Neut % (Auto) Lymph % (Auto) [place] % (Auto) Eos % (Auto) Baso % (Auto) Lymph # (Auto) [place] # (Auto) Eos # (Auto) Baso # (Auto) Abs Immat Gran (auto) Absolute Neuts (auto) Absolute Nucleated RBC Nucleated RBC % PT INR APTT Sodium Potassium Chloride Carbon Dioxide Anion Gap BUN Creatinine Estim Creat Clear Calc Estimated GFR Glucose POC Capillary Glucose 119 H 170 H Lactic Acid Calcium Magnesium 1.9 Total Bilirubin AST ALT Alkaline Phosphatase C-Reactive Protein NT-Pro-B Natriuret Pep Total Protein Albumin Lipase Urine Color Urine Appearance Urine pH Ur Specific [place] Urine Protein Urine Glucose (UA) Urine Ketones Ur Blood (Man) Urine Nitrate Urine Bilirubin Urine Urobilinogen Leukocyte Esterase Rfl Urine RBC Urine WBC Ur Squamous Epith Cells Urine Bacteria Urine Casts Nasal MRSA (PCR) Influenza A (RT-PCR) Influenza B (RT-PCR) RSV (RT-PCR) SARS-CoV-2 RNA (RT-PCR) 02/25/25 02/25/25 00:25 05:15 WBC RBC Hgb Hct MCV MCH MCHC RDW Plt Count MPV Immature Gran % (Auto) Neut % (Auto) Lymph % (Auto) [place] % (Auto) Eos % (Auto) Baso % (Auto) Lymph # (Auto) [place] # (Auto) Eos # (Auto) Baso # (Auto) Abs Immat Gran (auto) Absolute Neuts (auto) Absolute Nucleated RBC Nucleated RBC % PT 20.9 H INR 1.9 APTT Sodium 137 Potassium 4.2 Chloride 107 Carbon Dioxide 21 L Anion Gap 9 BUN 19 Creatinine 1.65 H Estim Creat Clear Calc 48 Estimated GFR 40 L Glucose 148 H POC Capillary Glucose 122 H Lactic Acid Calcium 8.8 Magnesium Total Bilirubin AST ALT Alkaline Phosphatase C-Reactive Protein NT-Pro-B Natriuret Pep Total Protein Albumin Lipase Urine Color Urine Appearance Urine pH Ur Specific [place] Urine Protein Urine Glucose (UA) Urine Ketones Ur Blood (Man) Urine Nitrate Urine Bilirubin Urine Urobilinogen Leukocyte Esterase Rfl Urine RBC Urine WBC Ur Squamous Epith Cells Urine Bacteria Urine Casts Nasal MRSA (PCR) Influenza A (RT-PCR) Influenza B (RT-PCR) RSV (RT-PCR) SARS-CoV-2 RNA (RT-PCR) Quality VTE Prophylaxis VTE prophylaxis: pharmacologic ordered
[2025-02-25] MEDS: ALBUTEROL SULFATE NEB 2.5 MG/3 ML INH INHALATION ×2 (08:59→20:56)
[2025-02-25] MEDS: ATORVASTATIN 20 MG TABLET PO (09:23)
[2025-02-25] MEDS: LORATADINE 10 MG TABLET PO (09:23)
[2025-02-25] MEDS: DOCUSATE SODIUM 100 MG CAPSULE PO ×3 (09:23→18:12)
[2025-02-25] MEDS: BACLOFEN 10 MG TABLET PO ×3 (09:24→18:13)
[2025-02-25] MEDS: AZELASTINE HCL NASAL 0.1% 137 MCG/SPR 30 ML BTL 1 SPRAY NASAL ×2 (09:24→22:00)
[2025-02-25] MEDS: PREGABALIN (*CRX) 75 MG CAPSULE 150 MG PO ×3 (09:24→18:12)
[2025-02-25] MEDS: FLUTICASONE/UMECLIDIN/VILANTER 200-62.5-25 MCG ELLIPTA 1 PUFF INHALATION (10:33)
[2025-02-25] MEDS: PERFLUTREN LIPID MICROSPHERES 1.5 ML VIAL DILUTED TO 10 ML TOTAL VOLUME IV PUSH (10:42)
--- NOTE | 2025-02-25 10:42 | IVDEFINITY ---
Prior to administration of IV Definity the patient was educated on the risks and benefits of the imaging enhancing agent including potential adverse side effects. The patient verbalized understanding. Allergies were verified. No exclusion criteria were identified and at least one of the following inclusion criteria were met: 1) physician request, 2) patient technically difficult to image (per the [place] [employer] guidelines of two or more segments not discernable within the apical view), or 3) questionable left ventricular function. ?
[2025-02-25 12:11] LABS: Procalcitonin 0.4 ng/mL
--- NOTE | 2025-02-25 16:03 | PCSTNOTE ---
Please refer to the Bedside Swallow Evaluation in the EMR. Please note, silent aspiration cannot be ruled out at bedside. This pleasant 84 year old male was admitted to [facility] on 02/24 due to weakness. The patient was in the hospital on 02/03 and was diagnosed with pneumonia. The patient has had multiple diagnoses of pneumonia including pneumonia due to COVID and pneumonia with UTI. A BSE was ordered due to the patients , Angela, stating that the patient has had trouble swallowing for a while now, specifically on solid consistencies. The patient and stated that the patient has been to other hospitals multiple times for this and the patient has had multiple swallow studies done but no diet modifications have been made. JÚNIOR Clay stated that the patient had a pulled pork sandwich on bun for lunch this date and showed no overt s/s of aspiration. An oral motor exam was completed with the patient demonstrating adequate strength and mobility for oral intake at this time. The patient is missing some teeth. The patient was upright in recliner during the BSE. Trials of thin liquids, puree, mixed consistency, and solid consistencies were trialed this date via straw, spoon, and hand. On the first trial of thin liquid, the patient exhibited a cough following the swallow. There was delayed triggering of the swallow, but laryngeal elevation was strong. Following this trial, the pt demonstrated no other s/s of aspiration throughout the rest of the BSE. The pts vocal quality remained clear and no coughing/throat clearing was observed. No oral residue was noted and all swallows following the first trial were timely and effective. Please note that silent aspiration cannot be ruled out at bedside. Given the results of this assessment, it is recommended this pt receive an oral diet of regular solids (IDDSI Level 7) and thin liquids (IDDSI Level 1). Due to the patients stating that solids give the patient trouble, ST verbalized that the patient could go on a IDDSI Level 7 easy to chew diet or an IDDSI Level 6 soft and bite sized diet. The pt declined. It is additionally recommended that the pt follow these standard swallowing precautions: Small bites/sips, sit upright during meals, and slow down the pace of oral intake. The patient should have 1:1 supervision during meals to assist with oral intake due to visual impairments. No further ST is warranted at this time. HEBERT West, and Danna, RN were notified of BSE results and recommendations. Thank you for this referral.
--- NOTE | 2025-02-25 17:18 | P.CONCA_ITS ---
Assessment and Plan Assessment and plan (1) Atrial fibrillation with rapid ventricular response: Code(s): I48.91 - Unspecified atrial fibrillation Status: Acute (2) Hyperlipidemia: Qualifiers: Hyperlipidemia type: mixed hyperlipidemia Qualified Code(s): E78.2 - Mixed hyperlipidemia Code(s): E78.5 - Hyperlipidemia, unspecified Status: Acute (3) RODRIGUEZ (acute kidney injury): Code(s): N17.9 - Acute kidney failure, unspecified Status: Acute Plan 84-year-old man with persistent atrial fibrillation and hyperlipidemia presented with weakness and now being treated for pneumonia found to have atrial fibrillation with rapid ventricular rates Persistent atrial fibrillation with rapid ventricular rates -increase metoprolol to 25 mg p.o. b.i.d. and resume his flecainide 50 mg p.o. b.i.d. -currently on warfarin with goal INR 2-3 -previously had a fall with intracranial hemorrhage that was small and per patient he was cleared from physician at [facility] to reinitiate anticoagulation -repeat EKG tomorrow Hyperlipidemia -continue atorvastatin Acute renal injury -continue to monitor -once stable, he can be resume on his home diuretic regimen History of Present Illness History of Present Illness Consult date/time: 02/25/25 17:18 Requesting physician: Cecily Barrera APRN Consult reason: atrial fibrillation Reason For Visit: PNEUMONIA,HYPOXIA Narrative: 84-year-old man with persistent atrial fibrillation and hyperlipidemia presented with weakness and now being treated for pneumonia found to have atrial fibrillation with rapid ventricular rates. It would seem that his weakness has improved slightly. He denies any chest discomfort. No orthopnea. No lower extremity swelling. Denies syncopal events. He has exertional shortness of breath that appears to be his baseline. He uses a rolling walker in the confines of his home. He is not very physically active. Review of Systems 2 Cardiovascular: Cardiovascular: Reports as per HPI Respiratory: Respiratory: Reports as per HPI [facility] Past Medical History Medical History Trochanteric bursitis, right hip Arthritis of elbow, left, degenerative Arthritis of right shoulder region Right shoulder strain Right arm pain Olecranon bursitis of right elbow Atrial fibrillation Rupture of left Achilles tendon Left ankle pain Constipation High cholesterol SOB (shortness of breath) Vision changes COPD (chronic obstructive pulmonary disease) Osteomyelitis, chronic BPH (benign prostatic hyperplasia) History of hemorrhoids History of pulmonary embolism History of deep vein thrombosis (DVT) of lower extremity Acute exacerbation of chronic obstructive airways disease Pneumonia due to COVID-19 virus Hypothyroidism determined by thyroid function test Weakness of both lower extremities Diabetes mellitus with neuropathy Ankle syndesmosis disruption Ankle fracture, bimalleolar, closed Infection of spine Chronic antibiotic suppression Chronic anticoagulation Recurrent deep vein thrombosis (DVT) Hypertension Spleen absent Rotator cuff arthropathy of right shoulder Surgical History Surgical History Total knee replacement status H/O bilateral cataract extraction H/O splenectomy S/P rotator cuff repair H/O colonoscopy with polypectomy History of pancreatic surgery Removal of pancreatic mass ([facility]) History of embolic filter insertion Hx of hernia repair History of back surgery x2 ([facility]), x1 ([facility]) H/O total knee replacement Bilaterally Family History Family History Grandparent Diabetes mellitus Father Family history of cardiovascular disease Intracranial aneurysm Mother Dvt femoral (deep venous thrombosis) Sibling Throat cancer Sister Acute myocardial infarction Brother Social History Social History Social History: The patient is and remarried; he lives with his . Patient was smoking up to 3 packs of cigarettes a day. He is retired from [employer]. He drinks occasionally denies any illicit drugs. He is listed as a DNR. He nominates His to be the individual who would make medical decisions for him if he is unable. Smoking packs per day: 3 Smoking cigarettes per day: 60.0 Years smoked: 20 Smoking pack-years: 60.00 Smoking status: Former smoker Tobacco type: cigarettes Second hand tobacco smoke exposure: No Smoking end date: 04/13/80 Alcohol intake: former Drinks per week: 1 Substance use: never Substance use type: does not use Do You Feel Safe in your Home?: Yes Lack of Transportation: No Lack of Food: Never True Current Housing: I Have Housing Concerned About Future Housing: No Difficulty Paying Gas/Electric Bills: No Difficulty Paying for Meds: No Currently Unemployed: No Education: High School Diploma/GED Difficulty w/ Childcare or Family Care: No Living arrangements: with family Occupation/Education: retired Gender identity (if verbalized by the patient): Male Additional gender identity comments: Lives with Sexual Orientation (if Verbalized by the Patient): Straight or Heterosexual Spiritual care concerns: No Agree to blood products: Yes Meds Home Medications and Allergies Home Medications ?Medication ?Instructions ?Recorded ?Confirmed ?Type flecainide 50 mg tablet 50 mg PO Q12H 06/21/19 02/24/25 History docusate sodium 50 mg capsule 50 mg PO BID 06/14/20 02/24/25 History loratadine 10 mg capsule 10 mg PO DAILY 06/14/20 02/24/25 History lactobacillus combination no.9 4 4,000 mmu cells PO DAILY 11/07/21 02/24/25 History billion cell capsule (Adult 50 Plus Probiotic) pen needle, diabetic 32 gauge x #100 ea 04/22/22 02/24/25 Rx 1/6 (NovoFine Plus) wheeled walker XL #1 ea 03/19/23 02/24/25 Rx blood sugar diagnostic (BurppleTouch #100 strips 05/19/23 02/24/25 Rx Ultra Test strips) acetaminophen 650 mg 650 mg PO Q12H PRN pain 1-4 10/12/23 02/24/25 History tablet,extended release (Tylenol Arthritis Pain) warfarin 6 mg tablet 6 mg PO DAILY #30 tabs 12/09/23 02/24/25 Rx lancets 33 gauge (OneTouch Delica #300 ea 03/07/24 02/24/25 Rx Plus Lancet) alpha lipoic acid 200 mg capsule 200 mg PO DAILY 04/13/24 02/24/25 History cholecalciferol (vitamin D3) 50 50 mcg PO DAILY 04/13/24 02/24/25 History mcg (2,000 unit) capsule compression stockings knee high #1 ea 05/04/24 02/24/25 Rx 15-20mmHG blood-glucose sensor (FreeStyle #2 ea 05/27/24 02/24/25 Rx Santiago 3 Plus Sensor device) diabetic shoes #1 ea 05/27/24 02/24/25 Rx knee high medium compression #1 ea 05/27/24 02/24/25 Rx stockings lidocaine 4 % topical patch 1 patch topical DAILY PRN pain #30 05/27/24 02/24/25 Rx (Salonpas (lidocaine)) ea leisa walker #1 ea 06/06/24 02/24/25 Rx blood-glucose,server software engineer,cont #2 ea 07/03/24 02/24/25 Rx (FreeStyle Santiago 3 [place]) furosemide 20 mg tablet See Rx Instructions .Route 07/11/24 02/24/25 Rx .COMPLEX #90 tabs metoprolol tartrate 25 mg tablet 12.5 mg (1/2 x 25 mg) PO BID #90 07/29/24 02/24/25 Rx tabs tamsulosin 0.4 mg capsule 0.8 mg (2 x 0.4 mg) PO DAILY #180 08/14/24 02/24/25 Rx caps pregabalin 150 mg capsule 150 mg PO TID #270 caps 08/24/24 02/24/25 Rx fluticasone fur. 200 mcg-umeclid 1 inh inhalation DAILY #60 ea 09/18/24 02/24/25 Rx 62.5 mcg-vilant 25 mcg inhalat.powder (Trelegy Ellipta) atorvastatin 20 mg tablet 20 mg PO DAILY #90 tabs 09/22/24 02/24/25 Rx levothyroxine 50 mcg tablet 50 mcg PO DAILY #90 tabs 09/22/24 02/24/25 Rx triamcinolone acetonide 0.1 % 1 applic topical BID #80 grams 10/03/24 02/24/25 Rx topical cream insulin aspart See Rx Instructions subcut 10/04/24 02/24/25 Rx (niacinamide)(U-100) 100 unit/mL(3 .COMPLEX #15 mL mL) subcutaneous pen (Fiasp FlexTouch U-100 Insulin) baclofen 10 mg tablet 10 mg PO TID #270 tabs 12/22/24 02/24/25 Rx omeprazole 20 mg capsule,delayed 20 mg PO DAILY #90 caps 12/22/24 02/24/25 Rx release pen needle, diabetic 32 gauge x #100 ea 01/06/25 02/24/25 Rx 5/32 skin websphere portal developer adhesive bandage for #8 ea 01/06/25 02/24/25 Rx Freestyle Santiago empagliflozin 25 mg tablet 25 mg PO DAILY #30 tabs 02/16/25 02/24/25 Rx (Jardiance) hydrocodone 5 mg-acetaminophen 325 1 tablet PO Q6H PRN Pain Rated 6 02/16/25 02/24/25 Rx mg tablet Or Greater #20 tabs insulin glargine 100 unit/mL 32 unit (0.32 mL) subcut HS #10 mL 02/16/25 02/24/25 Rx subcutaneous solution (Lantus U-100 Insulin) azelastine 137 mcg (0.1 %) nasal 137 mcg (0.137 mL) intranasal Q12H 02/22/25 02/24/25 Rx spray #30 mL diclofenac sodium 1 % topical gel 4 g topical QID PRN joint pain 02/24/25 02/24/25 History Allergies Allergy/AdvReac Type Severity Reaction Status Date / Time No Known Drug Allergies Allergy Unknown Unknown Verified 02/02/25 19:47 Vital Signs Vital Signs - 24 hr 02/24/25 18:20 02/24/25 18:50 02/24/25 20:00 Temperature 35.9 C L Pulse Rate 88 Respiratory Rate 26 H Blood Pressure 128/90 Pulse Oximetry 96 Oxygen Delivery Room Air Room Air 02/24/25 20:00 02/24/25 21:00 02/24/25 21:15 Temperature Pulse Rate 79 99 96 Respiratory Rate 22 H 20 Blood Pressure Pulse Oximetry Oxygen Delivery 02/24/25 22:00 02/24/25 23:05 02/24/25 23:19 Temperature 36.4 C L 36.6 C Pulse Rate 86 147 H 146 H Respiratory Rate 18 22 H Blood Pressure 140/75 Pulse Oximetry 99 95 Oxygen Delivery 02/24/25 23:54 02/25/25 00:00 02/25/25 00:45 Temperature Pulse Rate 136 H 142 H 142 H Respiratory Rate Blood Pressure 99/72 L Pulse Oximetry Oxygen Delivery 02/25/25 01:10 02/25/25 03:10 02/25/25 03:25 Temperature 36.5 C Pulse Rate 136 H 136 H 141 H Respiratory Rate 20 Blood Pressure 98/56 L Pulse Oximetry 96 Oxygen Delivery 02/25/25 04:00 02/25/25 06:00 02/25/25 06:12 Temperature 36.9 C Pulse Rate 132 H 103 H 113 H Respiratory Rate 18 Blood Pressure 114/88 Pulse Oximetry 96 Oxygen Delivery 02/25/25 08:00 02/25/25 09:00 02/25/25 09:05 Temperature Pulse Rate 82 94 101 H Respiratory Rate 18 18 Blood Pressure Pulse Oximetry Oxygen Delivery 02/25/25 09:20 02/25/25 12:00 02/25/25 14:00 Temperature 35.9 C L Pulse Rate 89 92 Respiratory Rate 20 Blood Pressure 99/63 L Pulse Oximetry 96 93 Oxygen Delivery Room Air Exam 2 Const: Other: Ill-appearing HENMT: Mouth: Yes dry mucous membranes Eyes: EOM: EOMs intact bilaterally Neck: Neck: no JVD Resp: Effort & Inspection: normal respiratory effort Auscultation: clear to auscultation bilaterally Cardio: Rate: tachycardic Rhythm: abnormal rhythm Neuro: Speech: normal speech Extrem: General: no pedal edema Results Labs and Meds 02/25/25 05:15 02/25/25 05:15 Lab results: Coagulation 02/25/25 Range/Units 05:15 PT 20.9 H (11.1-14.7) Seconds CBC 02/25/25 Range/Units 05:15 WBC 9.5 (4.5-10.0) K/mm3 RBC 6.24 H (4.6-6.20) M/mm3 Hgb 16.9 (14.0-18.0) g/dL Hct 52.6 H (42.0-52.0) % Plt Count 294 (150-375) k/mm3 Lymph # (Auto) 0.34 L (0.9-3.2) K/mm3 [place] # (Auto) 0.6 (0.1-0.6) K/mm3 Eos # (Auto) 0.0 (0-0.3) K/mm3 Baso # (Auto) 0.0 (0.0-0.1) K/mm3 Comprehensive Metabolic Panel 02/25/25 Range/Units 05:15 Sodium 137 (137-145) mmol/L Potassium 4.2 (3.4-5.0) mmol/L Chloride 107 (98-107) mmol/L Carbon Dioxide 21 L (22-30) mmol/L BUN 19 (9-20) mg/dL Creatinine 1.65 H (0.7-1.3) mg/dL Glucose 148 H (65-110) mg/dL Calcium 8.8 (8.4-10.2) mg/dL Intake and Output 02/25/25 02/25/25 02/25/25 07:59 15:59 23:59 Intake Total 450 0 Output Total 1800 Balance -1350 0 Intake: IV 150 Cefepime 2 gm In Sodium 50 Chloride 0.9% IV 50 ml @ 100 mls/hr IVPB Q12H [facility] Rx#: [id number] Magnesium Sulf 1 gm/D5w 100 ml 100 1 gm In 100 ml @ 100 mls/hr IVPB ONCE ONE Rx#:[id number] Oral 300 0 Output: Urine 1800 Other: Number of Bowel Movements Today 1
[2025-02-25] MEDS: WARFARIN (*PBKC) 3 MG TABLET 6 MG PO (18:12)
[2025-02-25] MEDS: FLECAINIDE ACETATE 50 MG TABLET PO (22:03)
[2025-02-25] MEDS: METOPROLOL TARTRATE 25 MG TABLET PO (22:04)
[2025-02-25] MEDS: INSULIN GLARGINE (*BKC) 100 UNITS/ML 36 UNITS SUB-Q (22:04)
[2025-02-26] VITALS (20 sets, daily range): BP systolic 108–132; BP diastolic 66–84; PULSE 71–101; RESP 18–20; TEMP 36.1–36.7; O2SAT 94–98
[2025-02-26] MEDS: ALBUTEROL SULFATE NEB 2.5 MG/3 ML INH INHALATION ×5 (01:55→21:47)
[2025-02-26] MEDS: CEFEPIME 2 GM in SODIUM CHLORIDE 0.9% IV 50 ML 100 ML IVPB ×2 (02:16→16:29)
[2025-02-26 05:44] LABS: Hematocrit 49.5 % (42.0-52.0); Hemoglobin 16.1 g/dL (14.0-18.0); Immature Granulocyte Percent A 3.1 % (0-0.5); Lymphocytes Absolute Auto 1.03 K/mm3 (0.9-3.2); Mean Corpuscular HGB Conc 32.5 g/dl (32-36); Mean Corpuscular Hemoglobin 27.3 pg (26-34); Mean Corpuscular Volume 84.0 fl (80-100); Nucleated Red Blood Cells Absolute Auto 0.000 K/mm3 (0.0-0.012); Nucleated Red Blood Cells Perc 0.0 % (0.0-0.2); Platelet Count Result 253 k/mm3 (150-375); Red Blood Count 5.89 M/mm3 (4.6-6.20); White Blood Count 6.1 K/mm3 (4.5-10.0)
[2025-02-26] MEDS: LEVOTHYROXINE SODIUM 50 MCG TABLET PO (05:50)
[2025-02-26 06:08] LABS: INR 2.2; Prothrombin Time 23.4 Seconds (11.1-14.7)
[2025-02-26 06:14] LABS: Anion Gap 9 mmol/L (4-12); Blood Urea Nitrogen 28 mg/dL (9-20); CRP 8.7 mg/dL (<1.0); Calcium 8.7 mg/dL (8.4-10.2); Carbon Dioxide 23 mmol/L (22-30); Chloride 105 mmol/L (98-107); Estimated CRCL calculation 42 ml/min; Estimated Glomerular Filt Rate 34; Glucose 155 mg/dL (65-110); Potassium 3.7 mmol/L (3.4-5.0); Sodium 137 mmol/L (137-145)
--- NOTE | 2025-02-26 07:37 | P.PNIM_ITS ---
Progress Note: A&P Assessment and Plan (1) RODRIGUEZ (acute kidney injury): Code(s): N17.9 - Acute kidney failure, unspecified Status: Acute Assessment and Plan: -Cr trended up to 1.89 this AM - baseline Cr around 1.0 - unclear cause - could be prerenal secondary to diuresis, obstruction, contrast injury, AIN in setting of rash although this does not appear allergic - hold lasix, monitor I&Os - nephrology consulted - ordered renal US and further laboratory studies. (2) Sepsis: Code(s): A41.9 - Sepsis, unspecified organism Status: Acute Assessment and Plan: -criteria met on admission with tachycardia, WBC 13 - improved - LA WNL - hemodynamically stable - 30cc/kg bolus deferred due to concern for pulmonary edema - suspected source is pneumonia, management as below - blood cultures pending (3) Pneumonia: Code(s): J18.9 - Pneumonia, unspecified organism Status: Resolved Assessment and Plan: -Patient was recently admitted for UTI, pneumonia - CT chest with ground glass opacities in the bilateral lower lobes with more focal consolidation in the left lower lobe -admit WBC 13, improving on repeat. Procal 0.4, CRP 8.7 - viral PCR negative -Started on cefepime vancomycin on admission, MRSA DNA negative so will stop vancomycin - follow-up blood cultures - speech evaluated with bedside swallow- recommended regular diet - check sputum culture, urine antigens, procalcitonin - trend inflammatory markers (4) Atrial fibrillation with rapid ventricular response: Code(s): I48.91 - Unspecified atrial fibrillation Status: Acute Assessment and Plan: -initial EKG sinus rhythm, went into Afib with RVR overnight 02/25. HR improved this AM, still Afib on telemetry. - continue coumadin 6 mg daily. INR 2.2. - cardio consulted, recommended to restart Felcainide and increased metoprolol. HR better controlled this AM. - follow-up TSH (5) Pulmonary edema: Code(s): J81.1 - Chronic pulmonary edema Status: Acute Assessment and Plan: -admit imaging with pulmonary edema vs. pneumonia - no hypoxia or increased dyspnea - echo 02/25 limited study, but EF appears preserved - BNP WNL - appears euvolemic this AM - received IV lasix overnight 02/25, held due to RODRIGUEZ - hold Jardiance - monitor volume status (6) Generalized weakness: Code(s): R53.1 - Weakness Status: Acute Assessment and Plan: -Likely secondary to pneumonia, prolonged illness, and pulmonary edema - was discharge from [facility] 02/16/25 -PT OT eval and treat (7) Hyperlipidemia: Qualifiers: Hyperlipidemia type: mixed hyperlipidemia Qualified Code(s): E78.2 - Mixed hyperlipidemia Code(s): E78.5 - Hyperlipidemia, unspecified Status: Acute Assessment and Plan: -Continue statin (8) Diabetes mellitus with neuropathy: Qualifiers: 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 insulin use: with assisted use Diabetes mellitus type: type 2 Qualified Code(s): E11.40 - Type 2 diabetes mellitus with diabetic neuropathy, unspecified; Z79.4 - termite technician (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 Confirmed with patient. DVT prophylaxis- coumadin Subjective Date/time seen: 02/26/25 07:37 Interval history: 84-year-old male presents the hospital with increased weakness. Patient seen and examined at bedside. States he is feeling better this morning, breathing improved. Discussed plan of care including Nephrology consultation due to worsening renal function. Patient still needs to work with physical therapy. Review of Systems Review of Systems: 12 systems were reviewed and are negativ e except for as per HPI. All systems reviewed & are unremarkable except as noted in HPI and below Exam Narrative: General: chronically ill-appearing Eyes: EOMI ENT: neck supple Cardiovascular: irregularly irregular Respiratory: Clear to auscultation, respirations even and unlabored on RA Gastrointestinal: Soft, non tender Genitourinary: no suprapubic tenderness Musculoskeletal: trace BLE edema. Skin: warm, dry Neuro: Alert. Strength 4+/5 in BUE/BLEs. Psych: Mood appropriate Objective Data Vital Signs Vital Signs: Vital Signs - 24 hr 02/25/25 08:00 02/25/25 09:00 02/25/25 09:05 Temperature Pulse Rate 82 94 101 H Respiratory Rate 18 18 Blood Pressure Pulse Oximetry Oxygen Delivery 02/25/25 09:20 02/25/25 12:00 02/25/25 14:00 Temperature 96.6 F L Pulse Rate 89 92 Respiratory Rate 20 Blood Pressure 99/63 L Pulse Oximetry 96 93 Oxygen Delivery Room Air 02/25/25 16:00 02/25/25 20:00 02/25/25 20:00 Temperature Pulse Rate 101 H 99 Respiratory Rate Blood Pressure Pulse Oximetry Oxygen Delivery Room Air 02/25/25 20:59 02/25/25 21:07 02/25/25 22:03 Temperature Pulse Rate 101 H 101 H 103 H Respiratory Rate 18 18 Blood Pressure Pulse Oximetry Oxygen Delivery 02/25/25 22:04 02/25/25 22:16 02/26/25 00:00 Temperature 97.3 F L Pulse Rate 103 H 68 94 Respiratory Rate 16 Blood Pressure 111/52 L Pulse Oximetry 95 Oxygen Delivery 02/26/25 01:55 02/26/25 02:05 02/26/25 04:00 Temperature Pulse Rate 101 H 101 H 85 Respiratory Rate 18 18 Blood Pressure Pulse Oximetry Oxygen Delivery Intake/Output Intake/Output: Intake & Output 02/23/25 02/24/25 02/25/25 02/26/25 23:59 23:59 23:59 23:59 Intake Total 550 1250 Output Total 300 1800 300 Balance 250 -550 -300 Meds/Results Medications: Active Medications Generic Name Dose Route Start Last Admin Trade Name Freq PRN Reason Stop Dose Admin Acetaminophen 650 mg 02/24/25 16:19 Acetaminophen 325 Mg Tablet PO Q4H PRN Mild Pain (1-3) or Fever Hydrocodone Bitart/Acetaminophen 1 tab 02/24/25 16:19 Hydrocodone/Acetaminophen (*Crx) 5-325 Mg Tablet PO Q4H PRN Moderate Pain (4-6) Albuterol 2.5 mg 02/24/25 20:00 02/26/25 01:55 Albuterol Sulfate Neb 2.5 Mg/3 Ml Inh INHALATION 2.5 mg Q6HRT AUDELIA Administration Atorvastatin Calcium 20 mg 02/25/25 09:00 02/25/25 09:23 Atorvastatin 20 Mg Tablet PO 20 mg DAILY AUDELIA Administration Azelastine HCl 1 spray 02/25/25 09:00 02/25/25 22:00 Azelastine Hcl Nasal 0.1% 137 Mcg/Spr 30 Ml Btl NASAL 1 spray Q12HR AUDELIA Administration Baclofen 10 mg 02/25/25 09:00 02/25/25 18:13 Baclofen 10 Mg Tablet PO 10 mg TID AUDELIA Administration Dextrose 12.5 gm 02/24/25 16:19 Dextrose 50% 25 Gm/50 Ml Syringe IV PUSH PRN PRN Hypoglycemia Protocol Docusate Sodium 100 mg 02/24/25 17:00 02/25/25 18:12 Docusate Sodium 100 Mg Capsule PO 100 mg BID AUDELIA Administration Flecainide Acetate 50 mg 02/25/25 21:00 02/25/25 22:03 Flecainide Acetate 50 Mg Tablet PO 50 mg Q12HR AUDELIA Administration Fluticasone/Umeclidinium/Vilanterol 1 puff 02/25/25 08:00 02/25/25 10:33 Fluticasone/Umeclidin/Vilanter 200-62.5-25 Mcg Ellipta INHALATION 1 puff DAILYRT AUDELIA Administration Glucagon 1 mg 02/24/25 16:19 Glucagon For Inj 1 Mg Vial IM PRN PRN Hypoglycemia Protocol Glucose 15 gm 02/24/25 16:19 Glucose Oral Gel 15 Gm Of Glucse In 37.5 Gm Tube PO PRN PRN Hypoglycemia Protocol Cefepime HCl 2 gm/ Sodium 50 mls @ 100 mls/hr 02/25/25 03:00 02/26/25 02:16 Chloride IVPB 100 mls/hr Q12H AUDELIA Administration Dextrose 1,000 mls @ 100 mls/hr 02/24/25 16:19 Dextrose 5% 1,000 Ml IVPB PRN PRN Hypoglycemia Protocol Insulin Aspart 2 - 5 units 02/24/25 17:00 02/25/25 18:13 Insulin Aspart (*Bkc) 100 Units/Ml SUB-Q Not Given TIDWM AUDELIA Protocol Insulin Glargine 36 units 02/24/25 21:00 02/25/25 22:04 Insulin Glargine (*Bkc) 100 Units/Ml SUB-Q 36 units HS AUDELIA Administration Levothyroxine Sodium 50 mcg 02/25/25 06:30 02/26/25 05:50 Levothyroxine Sodium 50 Mcg Tablet PO 50 mcg DAILY@0630 AUDELIA Administration Loratadine 10 mg 02/25/25 09:00 02/25/25 09:23 Loratadine 10 Mg Tablet PO 10 mg DAILY AUDELIA Administration Metoprolol Tartrate 25 mg 02/25/25 21:00 02/25/25 22:04 Metoprolol Tartrate 25 Mg Tablet PO 25 mg Q12HR AUDELIA Administration Pregabalin 150 mg 02/25/25 09:00 02/25/25 18:12 Pregabalin (*Crx) 75 Mg Capsule PO 150 mg TID AUDELIA Administration Warfarin Sodium 6 mg 02/24/25 23:20 02/25/25 18:12 Warfarin (*Pbkc) 3 Mg Tablet PO 6 mg DAILY@1700 AUDELIA Administration Radiology Results: ITS Impressions Chest X-Ray 02/24/25 10:50 Impression: 1: Cardiomegaly with interstitial edema. Chest/Abdomen/Pelvis CTA 02/24/25 13:46 IMPRESSION: 1. Prominent groundglass opacities predominantly affecting the lower lobes. More focal consolidation present left lower lobe. Differential diagnosis includes infection, pulmonary edema, chronic interstitial lung disease, hypersensitivity pneumonitis. 2: Cholelithiasis. 3: Infrarenal abdominal aortic aneurysm measuring 4 cm. Labs Labs: Laboratory Results - last 24 hr 02/25/25 02/25/25 02/25/25 05:15 07:49 11:58 WBC RBC Hgb Hct MCV MCH MCHC RDW Plt Count MPV Immature Gran % (Auto) Neut % (Auto) Lymph % (Auto) Carbon % (Auto) Eos % (Auto) Baso % (Auto) Lymph # (Auto) Carbon # (Auto) Eos # (Auto) Baso # (Auto) Abs Immat Gran (auto) Absolute Neuts (auto) Absolute Nucleated RBC Nucleated RBC % PT INR Sodium Potassium Chloride Carbon Dioxide Anion Gap BUN Creatinine Estim Creat Clear Calc Estimated GFR Glucose POC Capillary Glucose 173 H 146 H Calcium C-Reactive Protein Procalcitonin 0.4 02/25/25 02/25/25 02/26/25 17:04 20:04 05:15 WBC 6.1 RBC 5.89 Hgb 16.1 Hct 49.5 MCV 84.0 MCH 27.3 MCHC 32.5 RDW 19.4 H Plt Count 253 MPV 11.2 H Immature Gran % (Auto) 3.1 H Neut % (Auto) 61.9 Lymph % (Auto) 16.9 L Carbon % (Auto) 12.7 H Eos % (Auto) 4.4 Baso % (Auto) 1.0 Lymph # (Auto) 1.03 Carbon # (Auto) 0.8 H Eos # (Auto) 0.3 Baso # (Auto) 0.1 Abs Immat Gran (auto) 0.19 H Absolute Neuts (auto) 3.8 Absolute Nucleated RBC 0.000 Nucleated RBC % 0.0 PT 23.4 H INR 2.2 Sodium 137 Potassium 3.7 Chloride 105 Carbon Dioxide 23 Anion Gap 9 BUN 28 H Creatinine 1.89 H Estim Creat Clear Calc 42 Estimated GFR 34 L Glucose 155 H POC Capillary Glucose 188 H 234 H Calcium 8.7 C-Reactive Protein 8.7 H Procalcitonin Quality VTE Prophylaxis VTE prophylaxis: pharmacologic ordered
--- NOTE | 2025-02-26 08:38 | P.CONNP_ITS ---
Assessment and Plan Assessment and plan (1) RODRIGUEZ (acute kidney injury): Code(s): N17.9 - Acute kidney failure, unspecified Status: Acute Assessment and Plan: Neal has acute kidney injury. His baseline creatinine is 0.9-1.1 generally. Urine shows a few red cells which may be leftovers from his original hematuria issue. I do not know the cause of that. Clearly anticoagulation alone would not cause hematuria all by itself. There might have been a stone or cystitis at the time question I can not find the event in the chart. The patient has a rash the patient received contrast the patient has septic syndrome Multiple issues could be playing a role. The patient had contrast on admission. His creatinine was already a little bit elevated on admission even before the contrast. The patient has been in and out of the hospital lately and has been on antibiotics. He does have a rash on his back which has been going on for about 3 weeks he says. He currently has another case of pneumonia. He could have pre renal azotemia and the chest findings could be from infection? there are other causes. rhabdomyolysis could always be the case Obstruction is a possibility. Glomerulonephritis would be less likely in this clinical scenario. Interstitial nephritis is possible with the rash although he does not have any eosinophils in the periphery. At this point will get a renal ultrasound, urine electrolytes, urine eosinophils, fractional excretion of urea, CPK. He was on Rocephin last admission and has a rash on his back. It is not a classic maculopapular rash but more of a uniform erythema . It also does not resemble something that would come from bed clothes. It has been persisting since last admission. Could this be a reaction to the Rocephin question consider changing antibiotics to non penicillin/cephalosporin. If urine electrolytes show pre renal azotemia it might be prudent to give him a little bit of IV fluids. If the creatinine worsens any more then baclofen might become an issue with anticholinergic side effects. will keep an eye on this. (2) Sepsis: Code(s): A41.9 - Sepsis, unspecified organism Status: Acute Assessment and Plan: The patient has cultures which are pending. patient is on antibiotics. Consider changing because of the rash? (3) Skin rash: Code(s): R21 - Rash and other nonspecific skin eruption Status: Acute Assessment and Plan: He has diffuse erythema on his back. This does not look typical for either a drug rash or bed clothes exposure /sweating. (4) Pneumonia: Code(s): J18.9 - Pneumonia, unspecified organism Status: Acute Assessment and Plan: The patient is on antibiotics. (5) Diabetes: Code(s): E11.9 - Type 2 diabetes mellitus without complications Status: Acute Assessment and Plan: Management per hospitalists (6) Atrial fibrillation: Code(s): I48.91 - Unspecified atrial fibrillation Status: Acute Assessment and Plan: heart rate is well controlled. He is on anticoagulants. (7) Acquired polycythemia: Code(s): D75.1 - Secondary polycythemia Status: Acute Assessment and Plan: Possibly has sleep apnea. He has never had a test he said. I do not see an apnea link in the chart. He is seeing Dr. Claudia coronado for this (8) Hyperlipidemia: Qualifiers: Hyperlipidemia type: mixed hyperlipidemia Qualified Code(s): E78.2 - Mixed hyperlipidemia Code(s): E78.5 - Hyperlipidemia, unspecified Status: Acute Assessment and Plan: he is on atorvastatin (9) Hypertension: Qualifiers: Hypertension type: essential hypertension Qualified Code(s): I10 - Essential (primary) hypertension Code(s): I10 - Essential (primary) hypertension Status: Chronic Assessment and Plan: blood pressure is under good control. It was a little bit low yesterday morning. He is on a small dose of metoprolol History of Present Illness Reason for Consult Consult date: 02/26/25 Chief Complaint Chief complaint: PNEUMONIA,HYPOXIA History of Present Illness Narrative: Neal is a very pleasant 84-year-old gentleman who has multiple medical problems including chronic atrial fibrillation on Coumadin, osteoarthritis, hyperlipidemia, COPD, hypertension, diabetes, past history of DVT and pulmonary embolism, hypothyroidism, past history of COVID, and decreased visual acuity. The patient was recently in the hospital earlier this month for pneumonia. He also had a UTI I had a mildly elevated creatinine. The patient's creatinine improved and pneumonia and UTI were treated with Rocephin and then he was discharged on Augmentin plus doxycycline. He was sent to a rehab facility where he improved and then he went home. he says he was doing pretty well until Thursday evening when he developed a sore throat. he took for throat lozenges sequentially and the sore throat went away and he went to sleep. In the middle of night he woke up and was short of breath so walked to the lazy Boy. He fell asleep then and then got up to go to the bathroom but he was weak and needed help from his . At 1st he went to his bedroom and Peed in to a urinal that he went to sleep and woke up again and had to urinate and went to the bathroom. By the time he got to the bathroom was very weak and was not even sitting correctly on the commode. His and he tried to adjust him so that he could urinate into the commode but were unable to so they called 911 and had him brought to the ER. In the ER he was evaluated. He is found to be short of breath. His creatinine was mildly high at 1.27. His chest x-ray showed fluid are possibly pneumonia. The patient had a CT angio of the chest abdomen and pelvis which ruled out pulmonary embolism. It did show pulmonary infiltrates. They admitted the patient. He was given diuretics at 1st and some antibiotics. The patient's creatinine rik each day and so renal consultation was requested today he has had elevated creatinine values in the past but never this high. Usually it was due to a con current infection. The patient denies any bloody urine foamy urine kidney stones or bladder infections. No pain with urination. One time he had bloody urine while on Eliquis. He was eventually switched to Coumadin has not had any more bloody urine since then. Etiology for the bloody urine is unclear right now. He did see Urology. Review of Systems 2 Constitutional: Constitutional: Reports no additional constitutional complaints Eyes: Eyes: Reports no additional eye complaints ENT: Reports system reviewed and no additional complaints, except as documented Cardiovascular: Cardiovascular: Reports no additional cardiovascular complaints Respiratory: Respiratory: Reports no additional respiratory complaints Gastrointestinal: Gastrointestinal: Reports no additional gastrointestinal complaints Genitourinary: Genitourinary: Reports no additional male genitourinary complaints Musculoskeletal: Musculoskeletal: Reports no additional musculoskeletal complaints Integumentary/Breasts: Skin/Breast: Reports system reviewed and no additional complaints, except as docu Neurologic: Reports system reviewed and no additional complaints, except as documented Psychiatric: Psychiatric: Reports no additional psychiatric complaints Endocrine: Endocrine: Reports no additional endocrine complaints [facility] Past Medical History Medical History Trochanteric bursitis, right hip Arthritis of elbow, left, degenerative Arthritis of right shoulder region Right shoulder strain Right arm pain Olecranon bursitis of right elbow Atrial fibrillation Rupture of left Achilles tendon Left ankle pain Constipation High cholesterol SOB (shortness of breath) Vision changes COPD (chronic obstructive pulmonary disease) Osteomyelitis, chronic BPH (benign prostatic hyperplasia) History of hemorrhoids History of pulmonary embolism History of deep vein thrombosis (DVT) of lower extremity Acute exacerbation of chronic obstructive airways disease Pneumonia due to COVID-19 virus Hypothyroidism determined by thyroid function test Weakness of both lower extremities Diabetes mellitus with neuropathy Ankle syndesmosis disruption Ankle fracture, bimalleolar, closed Infection of spine Chronic antibiotic suppression Chronic anticoagulation Recurrent deep vein thrombosis (DVT) Hypertension Spleen absent Rotator cuff arthropathy of right shoulder Surgical History Surgical History Total knee replacement status H/O bilateral cataract extraction H/O splenectomy S/P rotator cuff repair H/O colonoscopy with polypectomy History of pancreatic surgery Removal of pancreatic mass ([facility]) History of embolic filter insertion Hx of hernia repair History of back surgery x2 ([facility]), x1 ([facility]) H/O total knee replacement Bilaterally Family History Family History Grandparent Diabetes mellitus Father Family history of cardiovascular disease Intracranial aneurysm Mother Dvt femoral (deep venous thrombosis) Sibling Throat cancer Sister Acute myocardial infarction Brother Social History Social History Social History: The patient is and remarried; he lives with his . Patient was smoking up to 3 packs of cigarettes a day. He is retired from [employer]. He drinks occasionally denies any illicit drugs. He is listed as a DNR. He nominates His to be the individual who would make medical decisions for him if he is unable. Smoking packs per day: 3 Smoking cigarettes per day: 60.0 Years smoked: 20 Smoking pack-years: 60.00 Smoking status: Former smoker Tobacco type: cigarettes Second hand tobacco smoke exposure: No Smoking end date: 04/13/80 Alcohol intake: former Drinks per week: 1 Substance use: never Substance use type: does not use Do You Feel Safe in your Home?: Yes Lack of Transportation: No Lack of Food: Never True Current Housing: I Have Housing Concerned About Future Housing: No Difficulty Paying Gas/Electric Bills: No Difficulty Paying for Meds: No Currently Unemployed: No Education: High School Diploma/GED Difficulty w/ Childcare or Family Care: No Living arrangements: with family Occupation/Education: retired Gender identity (if verbalized by the patient): Male Additional gender identity comments: Lives with Sexual Orientation (if Verbalized by the Patient): Straight or Heterosexual Spiritual care concerns: No Agree to blood products: Yes Meds Home Medications and Allergies Home Medications ?Medication ?Instructions ?Recorded ?Confirmed ?Type flecainide 50 mg tablet 50 mg PO Q12H 06/21/19 02/24/25 History docusate sodium 50 mg capsule 50 mg PO BID 06/14/20 02/24/25 History loratadine 10 mg capsule 10 mg PO DAILY 06/14/20 02/24/25 History lactobacillus combination no.9 4 4,000 mmu cells PO DAILY 11/07/21 02/24/25 History billion cell capsule (Adult 50 Plus Probiotic) pen needle, diabetic 32 gauge x #100 ea 04/22/22 02/24/25 Rx 08/08 (NovoFine Plus) wheeled walker XL #1 ea 03/19/23 02/24/25 Rx blood sugar diagnostic [facility] strips 05/19/23 02/24/25 Rx Ultra Test strips) acetaminophen 650 mg 650 mg PO Q12H PRN pain 1-4 10/12/23 02/24/25 History tablet,extended release (Tylenol Arthritis Pain) warfarin 6 mg tablet 6 mg PO DAILY #30 tabs 12/09/23 02/24/25 Rx lancets 33 gauge (OneTouch Delica #300 ea 03/07/24 02/24/25 Rx Plus Lancet) alpha lipoic acid 200 mg capsule 200 mg PO DAILY 04/13/24 02/24/25 History cholecalciferol (vitamin D3) 50 50 mcg PO DAILY 04/13/24 02/24/25 History mcg (2,000 unit) capsule compression stockings knee high #1 ea 05/04/24 02/24/25 Rx 15-20mmHG blood-glucose sensor (FreeStyle #2 ea 05/27/24 02/24/25 Rx Santiago 3 Plus Sensor device) diabetic shoes #1 ea 05/27/24 02/24/25 Rx knee high medium compression #1 ea 05/27/24 02/24/25 Rx stockings lidocaine 4 % topical patch 1 patch topical DAILY PRN pain #30 05/27/24 02/24/25 Rx (Salonpas (lidocaine)) ea wheeled walker #1 ea 06/06/24 02/24/25 Rx blood-glucose,assistant plant manager,cont #2 ea 07/03/24 02/24/25 Rx (FreeStyle [place] 3 [place]) furosemide 20 mg tablet See Rx Instructions .Route 07/11/24 02/24/25 Rx .COMPLEX #90 tabs metoprolol tartrate 25 mg tablet 12.5 mg (1/2 x 25 mg) PO BID #90 07/29/24 02/24/25 Rx tabs tamsulosin 0.4 mg capsule 0.8 mg (2 x 0.4 mg) PO DAILY #180 08/14/24 02/24/25 Rx caps pregabalin 150 mg capsule 150 mg PO TID #270 caps 08/24/24 02/24/25 Rx fluticasone fur. 200 mcg-umeclid 1 inh inhalation DAILY #60 ea 09/18/24 02/24/25 Rx 62.5 mcg-vilant 25 mcg inhalat.powder (Trelegy Ellipta) atorvastatin 20 mg tablet 20 mg PO DAILY #90 tabs 09/22/24 02/24/25 Rx levothyroxine 50 mcg tablet 50 mcg PO DAILY #90 tabs 09/22/24 02/24/25 Rx triamcinolone acetonide 0.1 % 1 applic topical BID #80 grams 10/03/24 02/24/25 Rx topical cream insulin aspart See Rx Instructions subcut 10/04/24 02/24/25 Rx (niacinamide)(U-100) 100 unit/mL(3 .COMPLEX #15 mL mL) subcutaneous pen (Fiasp FlexTouch U-100 Insulin) baclofen 10 mg tablet 10 mg PO TID #270 tabs 12/22/24 02/24/25 Rx omeprazole 20 mg capsule,delayed 20 mg PO DAILY #90 caps 12/22/24 02/24/25 Rx release pen needle, diabetic 32 gauge x #100 ea 01/06/25 02/24/25 Rx 5/32 skin golf cart repairer adhesive bandage for #8 ea 01/06/25 02/24/25 Rx Freestyle Santiago empagliflozin 25 mg tablet 25 mg PO DAILY #30 tabs 02/16/25 02/24/25 Rx (Jardiance) hydrocodone 5 mg-acetaminophen 325 1 tablet PO Q6H PRN Pain Rated 6 02/16/25 02/24/25 Rx mg tablet Or Greater #20 tabs insulin glargine 100 unit/mL 32 unit (0.32 mL) subcut HS #10 mL 02/16/25 02/24/25 Rx subcutaneous solution (Lantus U-100 Insulin) azelastine 137 mcg (0.1 %) nasal 137 mcg (0.137 mL) intranasal Q12H 02/22/25 02/24/25 Rx spray #30 mL diclofenac sodium 1 % topical gel 4 g topical QID PRN joint pain 02/24/25 02/24/25 History Allergies Allergy/AdvReac Type Severity Reaction Status Date / Time No Known Drug Allergies Allergy Unknown Unknown Verified 02/02/25 19:47 Vital Signs Vital Signs - 24 hr 02/25/25 09:00 02/25/25 09:05 02/25/25 09:20 Temperature Pulse Rate 94 101 H Respiratory Rate 18 18 Blood Pressure Pulse Oximetry 96 Oxygen Delivery Room Air 02/25/25 12:00 02/25/25 14:00 02/25/25 16:00 Temperature 96.6 F L Pulse Rate 89 92 101 H Respiratory Rate 20 Blood Pressure 99/63 L Pulse Oximetry 93 Oxygen Delivery 02/25/25 20:00 02/25/25 20:00 02/25/25 20:59 Temperature Pulse Rate 99 101 H Respiratory Rate 18 Blood Pressure Pulse Oximetry Oxygen Delivery Room Air 02/25/25 21:07 02/25/25 22:03 02/25/25 22:04 Temperature Pulse Rate 101 H 103 H 103 H Respiratory Rate 18 Blood Pressure Pulse Oximetry Oxygen Delivery 02/25/25 22:16 02/26/25 00:00 02/26/25 01:55 Temperature 97.3 F L Pulse Rate 68 94 101 H Respiratory Rate 16 18 Blood Pressure 111/52 L Pulse Oximetry 95 Oxygen Delivery 02/26/25 02:05 02/26/25 04:00 02/26/25 06:00 Temperature 97.3 F L Pulse Rate 101 H 85 85 Respiratory Rate 18 18 Blood Pressure 122/84 Pulse Oximetry 98 Oxygen Delivery Exam 2 Narrative: Exam Narrative: Well developed well-nourished male with high body mass index in no acute distress Skin is warm and dry without rash Head normocephalic atraumatic Eyes normal sclerae and conjunctivae Mouth normal lips teeth and gums Neck no nodes no thyromegaly no carotid bruits Axillae no nodes Back no CVA tenderness Lungs symmetric and clear to auscultation and percussion Heart irregular irregular rhythm but controlled rate without rub or gallop Abdomen bowel sounds positive soft nontender, no HSM, masses, or bruits. Extremities no cyanosis, clubbing, and trace at most bilateral presacral edema Pulses 2+ equal in radial arteries Psychological not anxious or depressed Neuro alert and oriented x3 motor 5/5 cranial nerves 3-12 intact, visual accuity poor, reflexes 2+ and equal in the biceps and patellar tendons cerebellar normal rapid alternating movements Results Lab Results 02/26/25 05:15 02/26/25 05:15 Lab results: Most recent lab results Calcium 8.7 mg/dL (8.4-10.2) 02/26/25 05:15 Magnesium 1.9 mg/dL (1.6-2.3) 02/24/25 23:25
[2025-02-26] MEDS: FLUTICASONE/UMECLIDIN/VILANTER 200-62.5-25 MCG ELLIPTA 1 PUFF INHALATION (09:02)
[2025-02-26 09:41] LABS: Creatine Kinase 246 U/L (55-170)
[2025-02-26] MEDS: DOCUSATE SODIUM 100 MG CAPSULE PO ×2 (09:52→16:45)
[2025-02-26] MEDS: METOPROLOL TARTRATE 25 MG TABLET PO ×2 (09:52→20:57)
[2025-02-26] MEDS: AZELASTINE HCL NASAL 0.1% 137 MCG/SPR 30 ML BTL 1 SPRAY NASAL ×2 (09:53→20:59)
[2025-02-26] MEDS: PREGABALIN (*CRX) 75 MG CAPSULE 150 MG PO ×3 (09:53→16:45)
[2025-02-26] MEDS: ATORVASTATIN 20 MG TABLET PO (09:53)
[2025-02-26] MEDS: BACLOFEN 10 MG TABLET PO ×3 (09:53→16:44)
[2025-02-26] MEDS: LORATADINE 10 MG TABLET PO (09:53)
[2025-02-26] MEDS: FLECAINIDE ACETATE 50 MG TABLET PO ×2 (10:17→20:57)
[2025-02-26] MEDS: INSULIN ASPART (*BKC) 100 UNITS/ML SUB-Q (13:19)
[2025-02-26] MEDS: WARFARIN (*PBKC) 3 MG TABLET 6 MG PO (16:44)
--- NOTE | 2025-02-26 16:57 | P.PNCA_ITS ---
Progress Note: A&P Assessment and Plan (1) Atrial fibrillation with rapid ventricular response: Code(s): I48.91 - Unspecified atrial fibrillation Status: Acute (2) Hyperlipidemia: Qualifiers: Hyperlipidemia type: mixed hyperlipidemia Qualified Code(s): E78.2 - Mixed hyperlipidemia Code(s): E78.5 - Hyperlipidemia, unspecified Status: Acute (3) RODRIGUEZ (acute kidney injury): Code(s): N17.9 - Acute kidney failure, unspecified Status: Acute Plan 84-year-old man with persistent atrial fibrillation and hyperlipidemia presented with weakness and now being treated for pneumonia found to have atrial fibrillation with rapid ventricular rates Persistent atrial fibrillation with rapid ventricular rates -rates are controlled today with increased beta juwan dose -continue metoprolol to 25 mg p.o. b.i.d. and flecainide 50 mg p.o. b.i.d. -currently on warfarin with goal INR 2-3 -previously had a fall with intracranial hemorrhage that was small and per patient he was cleared from physician at [place] to reinitiate anticoagulation Hyperlipidemia -continue atorvastatin Acute renal injury -continue to monitor -once stable, he can be resume on his home diuretic regimen Cardiology will sign off. Please call with additional questions. We will have him follow-up with Dr. Rojas in 2-4 weeks Subjective Date/time seen: 02/26/25 16:57 Interval history: No chest pain or shortness of breath. States that he is feeling better. Is making urine. Review of Systems Cardiovascular: Cardiovascular: Reports as per HPI Respiratory: Respiratory: Reports as per HPI Exam Const: Other: Ill-appearing Eyes: EOM: EOMs intact bilaterally Neck: Neck: no JVD Resp: Effort & Inspection: normal respiratory effort Auscultation: clear to auscultation bilaterally Cardio: Rate: regular rate Rhythm: abnormal rhythm Neuro: Speech: normal speech Extrem: General: no pedal edema Objective Data Vital Signs Vital Signs: Vital Signs - 24 hr 02/25/25 20:00 02/25/25 20:00 02/25/25 20:59 Temperature Pulse Rate 99 101 H Respiratory Rate 18 Blood Pressure Pulse Oximetry Oxygen Delivery Room Air 02/25/25 21:07 02/25/25 22:03 02/25/25 22:04 Temperature Pulse Rate 101 H 103 H 103 H Respiratory Rate 18 Blood Pressure Pulse Oximetry Oxygen Delivery 02/25/25 22:16 02/26/25 00:00 02/26/25 01:55 Temperature 36.3 C L Pulse Rate 68 94 101 H Respiratory Rate 16 18 Blood Pressure 111/52 L Pulse Oximetry 95 Oxygen Delivery 02/26/25 02:05 02/26/25 04:00 02/26/25 06:00 Temperature 36.3 C L Pulse Rate 101 H 85 85 Respiratory Rate 18 18 Blood Pressure 122/84 Pulse Oximetry 98 Oxygen Delivery 02/26/25 09:04 02/26/25 09:12 02/26/25 09:52 Temperature Pulse Rate 89 86 91 Respiratory Rate 18 18 Blood Pressure Pulse Oximetry Oxygen Delivery 02/26/25 10:17 02/26/25 13:05 02/26/25 13:13 Temperature Pulse Rate 99 77 84 Respiratory Rate 18 18 Blood Pressure Pulse Oximetry Oxygen Delivery 02/26/25 13:30 02/26/25 14:00 Temperature 36.1 C L Pulse Rate 71 Respiratory Rate 18 Blood Pressure 108/66 Pulse Oximetry 97 Oxygen Delivery Room Air Intake/Output Intake/Output: Intake & Output 02/23/25 02/24/25 02/25/25 02/26/25 23:59 23:59 23:59 23:59 Intake Total 550 1250 1210 Output Total 300 1800 600 Balance 250 -550 610 Meds/Results Medications: Active Medications Generic Name Dose Route Start Last Admin Trade Name Freq PRN Reason Stop Dose Admin Acetaminophen 650 mg 02/24/25 16:19 Acetaminophen 325 Mg Tablet PO Q4H PRN Mild Pain (1-3) or Fever Hydrocodone Bitart/Acetaminophen 1 tab 02/24/25 16:19 Hydrocodone/Acetaminophen (*Crx) 5-325 Mg Tablet PO Q4H PRN Moderate Pain (4-6) Albuterol 2.5 mg 02/24/25 20:00 02/26/25 13:03 Albuterol Sulfate Neb 2.5 Mg/3 Ml Inh INHALATION 2.5 mg Q6HRT AUDELIA Administration Atorvastatin Calcium 20 mg 02/25/25 09:00 02/26/25 09:53 Atorvastatin 20 Mg Tablet PO 20 mg DAILY AUDELIA Administration Azelastine HCl 1 spray 02/25/25 09:00 02/26/25 09:53 Azelastine Hcl Nasal 0.1% 137 Mcg/Spr 30 Ml Btl NASAL 1 spray Q12HR AUDELIA Administration Baclofen 10 mg 02/25/25 09:00 02/26/25 16:44 Baclofen 10 Mg Tablet PO 10 mg TID AUDELIA Administration Dextrose 12.5 gm 02/24/25 16:19 Dextrose 50% 25 Gm/50 Ml Syringe IV PUSH PRN PRN Hypoglycemia Protocol Docusate Sodium 100 mg 02/24/25 17:00 02/26/25 16:45 Docusate Sodium 100 Mg Capsule PO 100 mg BID AUDELIA Administration Flecainide Acetate 50 mg 02/26/25 10:10 02/26/25 10:17 Flecainide Acetate 50 Mg Tablet PO 50 mg Q12HR AUDELIA Administration Fluticasone/Umeclidinium/Vilanterol 1 puff 02/25/25 08:00 02/26/25 09:02 Fluticasone/Umeclidin/Vilanter 200-62.5-25 Mcg Ellipta INHALATION 1 puff DAILYRT AUDELIA Administration Glucagon 1 mg 02/24/25 16:19 Glucagon For Inj 1 Mg Vial IM PRN PRN Hypoglycemia Protocol Glucose 15 gm 02/24/25 16:19 Glucose Oral Gel 15 Gm Of Glucse In 37.5 Gm Tube PO PRN PRN Hypoglycemia Protocol Cefepime HCl 2 gm/ Sodium 50 mls @ 100 mls/hr 02/25/25 03:00 02/26/25 16:29 Chloride IVPB 100 mls/hr Q12H AUDELIA Administration Dextrose 1,000 mls @ 100 mls/hr 02/24/25 16:19 Dextrose 5% 1,000 Ml IVPB PRN PRN Hypoglycemia Protocol Insulin Aspart 2 - 5 units 02/24/25 17:00 02/26/25 13:19 Insulin Aspart (*Bkc) 100 Units/Ml SUB-Q 2 units TIDWM AUDELIA Administration Protocol Insulin Glargine 36 units 02/24/25 21:00 02/25/25 22:04 Insulin Glargine (*Bkc) 100 Units/Ml SUB-Q 36 units HS AUDELIA Administration Levothyroxine Sodium 50 mcg 02/25/25 06:30 02/26/25 05:50 Levothyroxine Sodium 50 Mcg Tablet PO 50 mcg DAILY@0630 AUDELIA Administration Loratadine 10 mg 02/25/25 09:00 02/26/25 09:53 Loratadine 10 Mg Tablet PO 10 mg DAILY AUDELIA Administration Metoprolol Tartrate 25 mg 02/25/25 21:00 02/26/25 09:52 Metoprolol Tartrate 25 Mg Tablet PO 25 mg Q12HR AUDELIA Administration Pregabalin 150 mg 02/25/25 09:00 02/26/25 16:45 Pregabalin (*Crx) 75 Mg Capsule PO 150 mg TID AUDELIA Administration Warfarin Sodium 6 mg 02/24/25 23:20 02/26/25 16:44 Warfarin (*Pbkc) 3 Mg Tablet PO 6 mg DAILY@1700 AUDELIA Administration Radiology Results: ITS Impressions Chest X-Ray 02/24/25 10:50 Impression: 1: Cardiomegaly with interstitial edema. Chest/Abdomen/Pelvis CTA 02/24/25 13:46 IMPRESSION: 1. Prominent groundglass opacities predominantly affecting the lower lobes. More focal consolidation present left lower lobe. Differential diagnosis includes infection, pulmonary edema, chronic interstitial lung disease, hypersensitivity pneumonitis. 2: Cholelithiasis. 3: Infrarenal abdominal aortic aneurysm measuring 4 cm. Renal Ultrasound 02/26/25 12:34 IMPRESSION: No hydronephrosis or renal calculi. Simple cysts within the right kidney. No findings to suggest long-standing medical renal disease, as detailed above. Labs Labs: Laboratory Results - last 24 hr 02/25/25 02/25/25 02/26/25 17:04 20:04 05:15 WBC 6.1 RBC 5.89 Hgb 16.1 Hct 49.5 MCV 84.0 MCH 27.3 MCHC 32.5 RDW 19.4 H Plt Count 253 MPV 11.2 H Immature Gran % (Auto) 3.1 H Neut % (Auto) 61.9 Lymph % (Auto) 16.9 L [place] % (Auto) 12.7 H Eos % (Auto) 4.4 Baso % (Auto) 1.0 Lymph # (Auto) 1.03 [place] # (Auto) 0.8 H Eos # (Auto) 0.3 Baso # (Auto) 0.1 Abs Immat Gran (auto) 0.19 H Absolute Neuts (auto) 3.8 Absolute Nucleated RBC 0.000 Nucleated RBC % 0.0 PT 23.4 H INR 2.2 Sodium 137 Potassium 3.7 Chloride 105 Carbon Dioxide 23 Anion Gap 9 BUN 28 H Creatinine 1.89 H Estim Creat Clear Calc 42 Estimated GFR 34 L Glucose 155 H POC Capillary Glucose 188 H 234 H Calcium 8.7 Total Creatine Kinase 246 H C-Reactive Protein 8.7 H 02/26/25 02/26/25 08:13 12:03 WBC RBC Hgb Hct MCV MCH MCHC RDW Plt Count MPV Immature Gran % (Auto) Neut % (Auto) Lymph % (Auto) [place] % (Auto) Eos % (Auto) Baso % (Auto) Lymph # (Auto) [place] # (Auto) Eos # (Auto) Baso # (Auto) Abs Immat Gran (auto) Absolute Neuts (auto) Absolute Nucleated RBC Nucleated RBC % PT INR Sodium Potassium Chloride Carbon Dioxide Anion Gap BUN Creatinine Estim Creat Clear Calc Estimated GFR Glucose POC Capillary Glucose 143 H 220 H Calcium Total Creatine Kinase C-Reactive Protein
[2025-02-26 17:01] LABS: Total Protein Urine Random 12 mg/dL; Ur Ttl Prot Creatinine Ratio 0.08 mg/mg (0-0.20)
[2025-02-26 17:03] LABS: Urea Random Urine 831 MG/DL
[2025-02-26 17:14] LABS: Urine Eos QC 2nd Tech Confirmed
[2025-02-26] MEDS: INSULIN GLARGINE (*BKC) 100 UNITS/ML 36 UNITS SUB-Q (20:59)
[2025-02-27] VITALS (18 sets, daily range): BP systolic 118–153; BP diastolic 63–85; PULSE 57–99; RESP 16–20; TEMP 36.4–36.5; O2SAT 95–98
[2025-02-27] MEDS: ALBUTEROL SULFATE NEB 2.5 MG/3 ML INH INHALATION ×4 (02:10→20:11)
[2025-02-27] MEDS: CEFEPIME 2 GM in SODIUM CHLORIDE 0.9% IV 50 ML 100 ML IVPB (04:22)
[2025-02-27] MEDS: HYDROcodone/acetaminophen (*CRX) 5-325 MG TABLET 1 TAB PO (04:23)
[2025-02-27] MEDS: LEVOTHYROXINE SODIUM 50 MCG TABLET PO (05:33)
[2025-02-27 05:48] LABS: Hematocrit 47.8 % (42.0-52.0); Hemoglobin 15.2 g/dL (14.0-18.0); Immature Granulocyte Percent A 2.3 % (0-0.5); Lymphocytes Absolute Auto 1.14 K/mm3 (0.9-3.2); Mean Corpuscular HGB Conc 31.8 g/dl (32-36); Mean Corpuscular Hemoglobin 27.0 pg (26-34); Mean Corpuscular Volume 84.9 fl (80-100); Nucleated Red Blood Cells Absolute Auto 0.020 K/mm3 (0.0-0.012); Nucleated Red Blood Cells Perc 0.4 % (0.0-0.2); Platelet Count Result 264 k/mm3 (150-375); Red Blood Count 5.63 M/mm3 (4.6-6.20); White Blood Count 5.1 K/mm3 (4.5-10.0)
[2025-02-27 06:12] LABS: INR 2.4; Prothrombin Time 25.6 Seconds (11.1-14.7)
[2025-02-27 06:23] LABS: Albumin Level 2.9 g/dL (3.5-5.1); Anion Gap 6 mmol/L (4-12); Blood Urea Nitrogen 24 mg/dL (9-20); CRP 4.2 mg/dL (<1.0); Calcium 8.6 mg/dL (8.4-10.2); Carbon Dioxide 26 mmol/L (22-30); Chloride 107 mmol/L (98-107); Estimated CRCL calculation 57 ml/min; Estimated Glomerular Filt Rate 49; Glucose 124 mg/dL (65-110); Potassium 3.4 mmol/L (3.4-5.0); Sodium 139 mmol/L (137-145)
[2025-02-27 06:37] LABS: Procalcitonin 0.1 ng/mL
[2025-02-27 06:44] LABS: Thyroid Stimulating Hormone Reflex 3.130 uIU/mL (0.465-4.68)
[2025-02-27] MEDS: FLUTICASONE/UMECLIDIN/VILANTER 200-62.5-25 MCG ELLIPTA 1 PUFF INHALATION (07:37)
--- NOTE | 2025-02-27 08:23 | P.PNIM_ITS ---
Progress Note: A&P Assessment and Plan (1) RODRIGUEZ (acute kidney injury): Code(s): N17.9 - Acute kidney failure, unspecified Status: Acute Assessment and Plan: -Cr trended up to 1.89 02/27/25. Now downtrending. - baseline Cr around 1.0 - renal US unremarkable - unclear cause - could be prerenal secondary to diuresis, obstruction, contrast injury, AIN in setting of rash although this does not appear allergic - hold lasix, monitor I&Os - nephrology following, appreciate recs regarding diuretics (2) Sepsis: Code(s): A41.9 - Sepsis, unspecified organism Status: Acute Assessment and Plan: -criteria met on admission with tachycardia, WBC 13 - improved - LA WNL - hemodynamically stable - 30cc/kg bolus deferred due to concern for pulmonary edema - suspected source is pneumonia, management as below - blood cultures pending (3) Pneumonia: Code(s): J18.9 - Pneumonia, unspecified organism Status: Resolved Assessment and Plan: -Patient was recently admitted for UTI, pneumonia - CT chest with ground glass opacities in the bilateral lower lobes with more focal consolidation in the left lower lobe -admit WBC 13, improving on repeat. Procal 0.4, CRP 8.7 - viral PCR negative -Started on cefepime vancomycin on admission, MRSA DNA negative so will stop vancomycin - procal trended down - blood cultures NGTD - transition cefepime to Augmentin to complete 7-day course - speech evaluated with bedside swallow- recommended regular diet (4) Atrial fibrillation with rapid ventricular response: Code(s): I48.91 - Unspecified atrial fibrillation Status: Acute Assessment and Plan: -initial EKG sinus rhythm, went into Afib with RVR overnight 02/25. HR improved this AM, still Afib on telemetry. - continue coumadin 6 mg daily. INR 2.2. - cardio consulted, recommended to restart Felcainide and increased metoprolol. HR better controlled. (5) Pulmonary edema: Code(s): J81.1 - Chronic pulmonary edema Status: Acute Assessment and Plan: -admit imaging with pulmonary edema vs. pneumonia - no hypoxia or increased dyspnea - echo 02/25 limited study, but EF appears preserved - BNP WNL - appears euvolemic this AM - received IV lasix overnight 02/25, held due to RODRIGUEZ - hold Jardiance - monitor volume status (6) Generalized weakness: Code(s): R53.1 - Weakness Status: Acute Assessment and Plan: -Likely secondary to pneumonia, prolonged illness, and pulmonary edema - was discharge from 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 Confirmed with patient. DVT prophylaxis- coumadin Subjective Date/time seen: 02/27/25 08:23 Interval history: Seen up in chair. No chest pain or shortness of breath. States that he is feeling better. Agreeable to rehab. Review of Systems Review of Systems: 12 systems were reviewed and are negativ e except for as per HPI. Exam Narrative: General: chronically ill-appearing Eyes: EOMI ENT: neck supple Cardiovascular: irregularly irregular Respiratory: Clear to auscultation, respirations even and unlabored on RA Gastrointestinal: Soft, non tender Genitourinary: no suprapubic tenderness Musculoskeletal: trace BLE edema. Skin: warm, dry Neuro: Alert. Psych: Mood appropriate Objective Data Vital Signs Vital Signs: Vital Signs - 24 hr 02/26/25 09:04 02/26/25 09:12 02/26/25 09:52 Temperature Pulse Rate 89 86 91 Respiratory Rate 18 18 Blood Pressure Pulse Oximetry Oxygen Delivery 02/26/25 10:17 02/26/25 12:00 02/26/25 13:05 Temperature Pulse Rate 99 96 77 Respiratory Rate 18 Blood Pressure Pulse Oximetry Oxygen Delivery 02/26/25 13:13 02/26/25 13:30 02/26/25 14:00 Temperature 97.0 F L Pulse Rate 84 71 Respiratory Rate 18 18 Blood Pressure 108/66 Pulse Oximetry 97 Oxygen Delivery Room Air 02/26/25 16:00 02/26/25 20:00 02/26/25 20:00 Temperature Pulse Rate 83 83 Respiratory Rate Blood Pressure Pulse Oximetry Oxygen Delivery Room Air 02/26/25 20:57 02/26/25 20:57 02/26/25 21:47 Temperature Pulse Rate 81 94 90 Respiratory Rate 20 Blood Pressure Pulse Oximetry Oxygen Delivery 02/26/25 21:59 02/26/25 22:26 02/27/25 00:00 Temperature 98.1 F Pulse Rate 91 88 72 Respiratory Rate 20 18 Blood Pressure 132/74 Pulse Oximetry 96 Oxygen Delivery 02/27/25 02:10 02/27/25 04:00 02/27/25 06:00 Temperature 97.7 F Pulse Rate 57 L 66 62 Respiratory Rate 20 18 Blood Pressure 153/85 H Pulse Oximetry 98 Oxygen Delivery 02/27/25 07:38 02/27/25 07:48 Temperature Pulse Rate 69 77 Respiratory Rate 20 20 Blood Pressure Pulse Oximetry Oxygen Delivery Intake/Output Intake/Output: Intake & Output 02/24/25 02/25/25 02/26/25 02/27/25 23:59 23:59 23:59 23:59 Intake Total 550 1250 1600 600 Output Total 300 1800 1000 1300 Balance 250 -550 600 -700 Meds/Results Medications: Active Medications Generic Name Dose Route Start Last Admin Trade Name Freq PRN Reason Stop Dose Admin Acetaminophen 650 mg 02/24/25 16:19 Acetaminophen 325 Mg Tablet PO Q4H PRN Mild Pain (1-3) or Fever Hydrocodone Bitart/Acetaminophen 1 tab 02/24/25 16:19 02/27/25 04:23 Hydrocodone/Acetaminophen (*Crx) 5-325 Mg Tablet PO 1 tab Q4H PRN Administration Moderate Pain (4-6) Albuterol 2.5 mg 02/24/25 20:00 02/27/25 07:36 Albuterol Sulfate Neb 2.5 Mg/3 Ml Inh INHALATION 2.5 mg Q6HRT AUDELIA Administration Atorvastatin Calcium 20 mg 02/25/25 09:00 02/26/25 09:53 Atorvastatin 20 Mg Tablet PO 20 mg DAILY AUDELIA Administration Azelastine HCl 1 spray 02/25/25 09:00 02/26/25 20:59 Azelastine Hcl Nasal 0.1% 137 Mcg/Spr 30 Ml Btl NASAL 1 spray Q12HR AUDELIA Administration Baclofen 10 mg 02/25/25 09:00 02/26/25 16:44 Baclofen 10 Mg Tablet PO 10 mg TID AUDELIA Administration Dextrose 12.5 gm 02/24/25 16:19 Dextrose 50% 25 Gm/50 Ml Syringe IV PUSH PRN PRN Hypoglycemia Protocol Docusate Sodium 100 mg 02/24/25 17:00 02/26/25 16:45 Docusate Sodium 100 Mg Capsule PO 100 mg BID AUDELIA Administration Flecainide Acetate 50 mg 02/26/25 10:10 02/26/25 20:57 Flecainide Acetate 50 Mg Tablet PO 50 mg Q12HR AUDELIA Administration Fluticasone/Umeclidinium/Vilanterol 1 puff 02/25/25 08:00 02/27/25 07:37 Fluticasone/Umeclidin/Vilanter 200-62.5-25 Mcg Ellipta INHALATION 1 puff DAILYRT AUDELIA Administration Glucagon 1 mg 02/24/25 16:19 Glucagon For Inj 1 Mg Vial IM PRN PRN Hypoglycemia Protocol Glucose 15 gm 02/24/25 16:19 Glucose Oral Gel 15 Gm Of Glucse In 37.5 Gm Tube PO PRN PRN Hypoglycemia Protocol Cefepime HCl 2 gm/ Sodium 50 mls @ 100 mls/hr 02/25/25 03:00 02/27/25 04:22 Chloride IVPB 100 mls/hr Q12H AUDELIA Administration Dextrose 1,000 mls @ 100 mls/hr 02/24/25 16:19 Dextrose 5% 1,000 Ml IVPB PRN PRN Hypoglycemia Protocol Insulin Aspart 2 - 5 units 02/24/25 17:00 02/26/25 17:52 Insulin Aspart (*Bkc) 100 Units/Ml SUB-Q Not Given TIDWM AUDELIA Protocol Insulin Glargine 36 units 02/24/25 21:00 02/26/25 20:59 Insulin Glargine (*Bkc) 100 Units/Ml SUB-Q 36 units HS AUDELIA Administration Levothyroxine Sodium 50 mcg 02/25/25 06:30 02/27/25 05:33 Levothyroxine Sodium 50 Mcg Tablet PO 50 mcg DAILY@0630 AUDELIA Administration Loratadine 10 mg 02/25/25 09:00 02/26/25 09:53 Loratadine 10 Mg Tablet PO 10 mg DAILY AUDELIA Administration Metoprolol Tartrate 25 mg 02/25/25 21:00 02/26/25 20:57 Metoprolol Tartrate 25 Mg Tablet PO 25 mg Q12HR AUDELIA Administration Pregabalin 150 mg 02/25/25 09:00 02/26/25 16:45 Pregabalin (*Crx) 75 Mg Capsule PO 150 mg TID AUDELIA Administration Warfarin Sodium 6 mg 02/24/25 23:20 02/26/25 16:44 Warfarin (*Pbkc) 3 Mg Tablet PO 6 mg DAILY@1700 AUDELIA Administration Radiology Results: ITS Impressions Chest X-Ray 02/24/25 10:50 Impression: 1: Cardiomegaly with interstitial edema. Chest/Abdomen/Pelvis CTA 02/24/25 13:46 IMPRESSION: 1. Prominent groundglass opacities predominantly affecting the lower lobes. More focal consolidation present left lower lobe. Differential diagnosis includes infection, pulmonary edema, chronic interstitial lung disease, hypersensitivity pneumonitis. 2: Cholelithiasis. 3: Infrarenal abdominal aortic aneurysm measuring 4 cm. Renal Ultrasound 02/26/25 12:34 IMPRESSION: No hydronephrosis or renal calculi. Simple cysts within the right kidney. No findings to suggest long-standing medical renal disease, as detailed above. Labs Labs: Laboratory Results - last 24 hr 02/26/25 02/26/25 02/26/25 05:15 08:13 12:03 WBC RBC Hgb Hct MCV MCH MCHC RDW Plt Count MPV Immature Gran % (Auto) Neut % (Auto) Lymph % (Auto) Frederick % (Auto) Eos % (Auto) Baso % (Auto) Lymph # (Auto) Frederick # (Auto) Eos # (Auto) Baso # (Auto) Abs Immat Gran (auto) Absolute Neuts (auto) Absolute Nucleated RBC Nucleated RBC % PT INR Sodium Potassium Chloride Carbon Dioxide Anion Gap BUN Creatinine Estim Creat Clear Calc Estimated GFR Glucose POC Capillary Glucose 143 H 220 H Calcium Phosphorus Total Creatine Kinase 246 H C-Reactive Protein Albumin Procalcitonin TSH (Reflex) Urine Eosinophils U Random Total Protein Ur Random Sodium Ur Random Urea Urine Creatinine Protein/Creat Ratio 2 02/26/25 02/26/25 02/27/25 16:43 16:54 05:27 WBC 5.1 RBC 5.63 Hgb 15.2 Hct 47.8 MCV 84.9 MCH 27.0 MCHC 31.8 L RDW 19.1 H Plt Count 264 MPV 11.1 H Immature Gran % (Auto) 2.3 H Neut % (Auto) 46.6 Lymph % (Auto) 22.3 Frederick % (Auto) 18.6 H Eos % (Auto) 9.4 H Baso % (Auto) 0.8 Lymph # (Auto) 1.14 Frederick # (Auto) 1.0 H Eos # (Auto) 0.5 H Baso # (Auto) 0.0 Abs Immat Gran (auto) 0.12 H Absolute Neuts (auto) 2.4 Absolute Nucleated RBC 0.020 H Nucleated RBC % 0.4 H PT 25.6 H INR 2.4 Sodium 139 Potassium 3.4 Chloride 107 Carbon Dioxide 26 Anion Gap 6 BUN 24 H Creatinine 1.40 H Estim Creat Clear Calc 57 Estimated GFR 49 L Glucose 124 H POC Capillary Glucose 179 H Calcium 8.6 Phosphorus 3.8 Total Creatine Kinase C-Reactive Protein 4.2 H Albumin 2.9 L Procalcitonin 0.1 TSH (Reflex) 3.130 Urine Eosinophils None seen U Random Total Protein 12 Ur Random Sodium 7 Ur Random Urea 831 Urine Creatinine 148.5 Protein/Creat Ratio 2 0.08 Quality VTE Prophylaxis VTE prophylaxis: pharmacologic ordered
[2025-02-27] MEDS: PREGABALIN (*CRX) 75 MG CAPSULE 150 MG PO ×3 (09:51→17:11)
[2025-02-27] MEDS: ATORVASTATIN 20 MG TABLET PO (09:51)
[2025-02-27] MEDS: LORATADINE 10 MG TABLET PO (09:52)
[2025-02-27] MEDS: FLECAINIDE ACETATE 50 MG TABLET PO ×2 (09:52→20:51)
[2025-02-27] MEDS: BACLOFEN 10 MG TABLET PO ×3 (09:52→17:10)
[2025-02-27] MEDS: DOCUSATE SODIUM 100 MG CAPSULE PO ×2 (09:52→17:11)
[2025-02-27] MEDS: METOPROLOL TARTRATE 25 MG TABLET PO ×2 (09:52→20:50)
[2025-02-27] MEDS: AZELASTINE HCL NASAL 0.1% 137 MCG/SPR 30 ML BTL 1 SPRAY NASAL ×2 (09:54→20:51)
--- NOTE | 2025-02-27 11:49 | P.PNNP_ITS ---
Progress Note: A&P Assessment and Plan (1) RODRIGUEZ (acute kidney injury): Code(s): N17.9 - Acute kidney failure, unspecified Status: Acute Assessment and Plan: * noted on admission: * creatinine 1.27mg/dl on admission * creatinine up to 1.65mg/dl (on 02/25) and then 1.89mg/dl (on 02/26) * baseline creatinine runs around 0.9 - 1.1mg/dl * suspect multifactorial etiology: * prerenal factors * contrast exposure (CTA C/A/P on 02/24) * infection/sepsis (pneumonia) * drug/antibiotic reaction (+ skin rash) * other(?) * evaluation to date noted: * renal ultrasound with obstruction * urine electrolytes prerenal * urine eosinophils negative * CPK mildly elevated (but not enough to affect kidney function) * no significant proteinuria * agree with holding diuretics (but okay with restart if issues with volume overload/SOB) * consider trial of IVFs if creatinine worsenes (and if respiratory/volume status permits/allows) * follow repeat labs and UOP (2) Sepsis: Code(s): A41.9 - Sepsis, unspecified organism Status: Acute Assessment and Plan: * as noted by tachycardia and leukocytosis on admission * presumably secondary to pneumonia * lactic acid normal * stable hemodynamics * blood cultures negative to date * on antibiotics (3) Pneumonia: Code(s): J18.9 - Pneumonia, unspecified organism Status: Resolved Assessment and Plan: * imaging noted: * CT of chest with ground glass opacities in the bilateral lower lobes with more focal consolidation in the left lower lobe * viral testing for influenza/RSV/COVID negative * WBC has normalized * on antibiotic therapy * blood cultures negative to date (4) Atrial fibrillation with rapid ventricular response: Code(s): I48.91 - Unspecified atrial fibrillation Status: Acute Assessment and Plan: * noted on evening of 02/25 * Cardiology recommendations noted - rate control strategy * resumed on flecainide * titrate metoprolol * on anticoagulation with coumadin (5) Diabetes mellitus with neuropathy: Qualifiers: Diabetes mellitus type: type 2 Diabetes mellitus intermission coordinator insulin use: with intermission coordinator use Qualified Code(s): E11.40 - Type 2 diabetes mellitus with diabetic neuropathy, unspecified; 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 L Subjective Date/time seen: 02/27/25 11:49 Interval history: Follow-up for acute kidney injury/acute renal failure. Chart reviewed -- assuming care from Dr. Segovia; renal function/creatinine appears to be doing better at this time with reasonable urine output; sitting up in chair at the time of my visit and voiced no acute complaints or concerns; no other issues or events overnight or earlier this AM. Exam 2 Narrative: General: elderly but WD/WN male in NAD Heart: IRRR, normal S1 and S2; no rub Lungs: clear anteriorly Abdomen: soft, nontender, nondistended, positive bowel sounds Extremities: no cyanosis or clubbing; trace edema Skin: warm and dry Objective Data Vital Signs Vital Signs: Vital Signs Temp Pulse Resp BP Pulse Ox O2 Del Method 02/27/25 09:52 98 02/27/25 09:50 96 Room Air 02/27/25 07:48 77 20 02/27/25 07:38 69 20 02/27/25 06:00 97.7 F 62 18 153/85 H 98 02/27/25 04:00 66 02/27/25 02:10 57 L 20 02/27/25 00:00 72 02/26/25 22:26 98.1 F 88 18 132/74 96 02/26/25 21:59 91 20 02/26/25 21:47 90 20 02/26/25 20:57 94 02/26/25 20:57 81 02/26/25 20:00 83 02/26/25 20:00 Room Air Intake/Output Intake/Output: Intake & Output 02/24/25 02/25/25 02/26/25 02/27/25 23:59 23:59 23:59 23:59 Intake Total 550 1250 1600 1820 Output Total 300 1800 1000 1300 Balance 250 -550 600 520 Meds/Results Medications: Active Medications Generic Name Dose Route Start Last Admin Trade Name Freq PRN Reason Stop Dose Admin Acetaminophen 650 mg 02/24/25 16:19 Acetaminophen 325 Mg Tablet PO Q4H PRN Mild Pain (1-3) or Fever Hydrocodone Bitart/Acetaminophen 1 tab 02/24/25 16:19 02/27/25 04:23 Hydrocodone/Acetaminophen (*Crx) 5-325 Mg Tablet PO 1 tab Q4H PRN Administration Moderate Pain (4-6) Albuterol 2.5 mg 02/24/25 20:00 02/27/25 13:24 Albuterol Sulfate Neb 2.5 Mg/3 Ml Inh INHALATION 2.5 mg Q6HRT AUDELIA Administration Amoxicillin/Clavulanate Potassium 1 tablet 02/27/25 14:00 02/27/25 13:18 Amoxicillin/Clavulanate K 875-125 Mg Tab PO 1 tablet Q12HR AUDELIA Administration Atorvastatin Calcium 20 mg 02/25/25 09:00 02/27/25 09:51 Atorvastatin 20 Mg Tablet PO 20 mg DAILY AUDELIA Administration Azelastine HCl 1 spray 02/25/25 09:00 02/27/25 09:54 Azelastine Hcl Nasal 0.1% 137 Mcg/Spr 30 Ml Btl NASAL 1 spray Q12HR AUDELIA Administration Baclofen 10 mg 02/25/25 09:00 02/27/25 17:10 Baclofen 10 Mg Tablet PO 10 mg TID AUDELIA Administration Dextrose 12.5 gm 02/24/25 16:19 Dextrose 50% 25 Gm/50 Ml Syringe IV PUSH PRN PRN Hypoglycemia Protocol Docusate Sodium 100 mg 02/24/25 17:00 02/27/25 17:11 Docusate Sodium 100 Mg Capsule PO 100 mg BID AUDELIA Administration Flecainide Acetate 50 mg 02/26/25 10:10 02/27/25 09:52 Flecainide Acetate 50 Mg Tablet PO 50 mg Q12HR AUDELIA Administration Fluticasone/Umeclidinium/Vilanterol 1 puff 02/25/25 08:00 02/27/25 07:37 Fluticasone/Umeclidin/Vilanter 200-62.5-25 Mcg Ellipta INHALATION 1 puff DAILYRT AUDELIA Administration Glucagon 1 mg 02/24/25 16:19 Glucagon For Inj 1 Mg Vial IM PRN PRN Hypoglycemia Protocol Glucose 15 gm 02/24/25 16:19 Glucose Oral Gel 15 Gm Of Glucse In 37.5 Gm Tube PO PRN PRN Hypoglycemia Protocol Dextrose 1,000 mls @ 100 mls/hr 02/24/25 16:19 Dextrose 5% 1,000 Ml IVPB PRN PRN Hypoglycemia Protocol Insulin Aspart 2 - 5 units 02/24/25 17:00 02/27/25 17:11 Insulin Aspart (*Bkc) 100 Units/Ml SUB-Q Not Given TIDWM AUDELIA Protocol Insulin Glargine 36 units 02/24/25 21:00 02/26/25 20:59 Insulin Glargine (*Bkc) 100 Units/Ml SUB-Q 36 units HS AUDELIA Administration Levothyroxine Sodium 50 mcg 02/25/25 06:30 02/27/25 05:33 Levothyroxine Sodium 50 Mcg Tablet PO 50 mcg DAILY@0630 AUDELIA Administration Loratadine 10 mg 02/25/25 09:00 02/27/25 09:52 Loratadine 10 Mg Tablet PO 10 mg DAILY AUDELIA Administration Metoprolol Tartrate 25 mg 02/25/25 21:00 02/27/25 09:52 Metoprolol Tartrate 25 Mg Tablet PO 25 mg Q12HR AUDELIA Administration Pregabalin 150 mg 02/25/25 09:00 02/27/25 17:11 Pregabalin (*Crx) 75 Mg Capsule PO 150 mg TID AUDELIA Administration Warfarin Sodium 6 mg 02/24/25 23:20 02/27/25 17:10 Warfarin (*Pbkc) 3 Mg Tablet PO 6 mg DAILY@1700 AUDELIA Administration Radiology Results: ITS Impressions Chest X-Ray 02/24/25 10:50 Impression: 1: Cardiomegaly with interstitial edema. Chest/Abdomen/Pelvis CTA 02/24/25 13:46 IMPRESSION: 1. Prominent groundglass opacities predominantly affecting the lower lobes. More focal consolidation present left lower lobe. Differential diagnosis includes infection, pulmonary edema, chronic interstitial lung disease, hypersensitivity pneumonitis. 2: Cholelithiasis. 3: Infrarenal abdominal aortic aneurysm measuring 4 cm. Renal Ultrasound 02/26/25 12:34 IMPRESSION: No hydronephrosis or renal calculi. Simple cysts within the right kidney. No findings to suggest long-standing medical renal disease, as detailed above. Labs Labs: Laboratory Tests 02/27/25 05:27 02/27/25 05:27 Calcium 8.6 Phosphorus 3.8 C-Reactive Protein 4.2 H Albumin 2.9 L Procalcitonin 0.1 TSH (Reflex) 3.130 Microbiology 02/24/25 09:36 Blood Blood Culture - Preliminary 02/24/25 09:19 Blood Blood Culture - Preliminary 02/27/25 02:31 urine - Urine Microbiology Comment - Final Not Reportable
[2025-02-27] MEDS: WARFARIN (*PBKC) 3 MG TABLET 6 MG PO (17:10)
[2025-02-27] MEDS: INSULIN GLARGINE (*BKC) 100 UNITS/ML 36 UNITS SUB-Q (21:55)
[2025-02-28] VITALS (20 sets, daily range): BP systolic 107–132; BP diastolic 62–91; PULSE 62–87; RESP 12–20; TEMP 36.4–36.7; O2SAT 93–97
[2025-02-28] MEDS: ALBUTEROL SULFATE NEB 2.5 MG/3 ML INH INHALATION ×4 (02:02→20:53)
[2025-02-28] MEDS: LEVOTHYROXINE SODIUM 50 MCG TABLET PO (05:39)
[2025-02-28 06:45] LABS: INR 2.5; Prothrombin Time 26.2 Seconds (11.1-14.7)
[2025-02-28 06:54] LABS: Anion Gap 8 mmol/L (4-12); Blood Urea Nitrogen 21 mg/dL (9-20); Calcium 8.9 mg/dL (8.4-10.2); Carbon Dioxide 28 mmol/L (22-30); Chloride 105 mmol/L (98-107); Estimated CRCL calculation 63 ml/min; Estimated Glomerular Filt Rate 55; Glucose 123 mg/dL (65-110); Potassium 3.5 mmol/L (3.4-5.0); Sodium 141 mmol/L (137-145)
[2025-02-28] MEDS: FLUTICASONE/UMECLIDIN/VILANTER 200-62.5-25 MCG ELLIPTA 1 PUFF INHALATION (07:35)
[2025-02-28] MEDS: METOPROLOL TARTRATE 25 MG TABLET PO ×2 (08:21→21:24)
[2025-02-28] MEDS: DOCUSATE SODIUM 100 MG CAPSULE PO ×2 (08:21→17:20)
[2025-02-28] MEDS: ATORVASTATIN 20 MG TABLET PO (08:22)
[2025-02-28] MEDS: LORATADINE 10 MG TABLET PO (08:22)
[2025-02-28] MEDS: FLECAINIDE ACETATE 50 MG TABLET PO ×2 (08:22→21:24)
[2025-02-28] MEDS: PREGABALIN (*CRX) 75 MG CAPSULE 150 MG PO ×3 (08:22→17:21)
[2025-02-28] MEDS: AZELASTINE HCL NASAL 0.1% 137 MCG/SPR 30 ML BTL 1 SPRAY NASAL ×2 (08:22→21:25)
[2025-02-28] MEDS: BACLOFEN 10 MG TABLET PO ×3 (08:22→17:20)
[2025-02-28] MEDS: FUROSEMIDE 20 MG TABLET PO (08:28)
--- NOTE | 2025-02-28 11:12 | P.PNNP_ITS ---
Progress Note: A&P Assessment and Plan (1) RODRIGUEZ (acute kidney injury): Code(s): N17.9 - Acute kidney failure, unspecified Status: Acute Assessment and Plan: * continue to improve * noted on admission: * creatinine 1.27mg/dl on admission * creatinine up to 1.65mg/dl (on 02/25) and then 1.89mg/dl (on 02/26) * baseline creatinine runs around 0.9 - 1.1mg/dl * suspect multifactorial etiology: * prerenal factors * contrast exposure (CTA C/A/P on 02/24) * infection/sepsis (pneumonia) * drug/antibiotic reaction (+ skin rash) * other(?) * evaluation to date noted: * renal ultrasound with obstruction * urine electrolytes prerenal * urine eosinophils negative * CPK mildly elevated (but not enough to affect kidney function) * no significant proteinuria * agree with holding diuretics (but okay with restart if issues with volume overload/SOB) * follow repeat labs and UOP (2) Sepsis: Code(s): A41.9 - Sepsis, unspecified organism Status: Acute Assessment and Plan: * as noted by tachycardia and leukocytosis on admission * presumably secondary to pneumonia * lactic acid normal * stable hemodynamics * blood cultures negative to date * on antibiotics (3) Pneumonia: Code(s): J18.9 - Pneumonia, unspecified organism Status: Resolved Assessment and Plan: * imaging noted: * CT of chest with ground glass opacities in the bilateral lower lobes with more focal consolidation in the left lower lobe * viral testing for influenza/RSV/COVID negative * WBC has normalized * on antibiotic therapy * blood cultures negative to date (4) Atrial fibrillation with rapid ventricular response: Code(s): I48.91 - Unspecified atrial fibrillation Status: Acute Assessment and Plan: * noted on evening of 02/25 * Cardiology recommendations noted - rate control strategy * resumed on flecainide * titrate metoprolol * on anticoagulation with coumadin (5) Diabetes mellitus with neuropathy: Qualifiers: Diabetes mellitus termite helper insulin use: with detention use Diabetes mellitus type: type 2 Qualified Code(s): E11.40 - Type 2 diabetes mellitus with diabetic neuropathy, unspecified; Z79.4 - [facility] (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 Code(s): E11.40 - Type 2 diabetes mellitus with diabetic neuropathy, unspecified Status: Acute Assessment and Plan: * follow accu-cheks * glycemic control per hospitalist (6) Generalized weakness: Code(s): R53.1 - Weakness Status: Acute Assessment and Plan: * likely due to recent hospitalization, recent infections, current pneumonia + hospitalization * continue PT/OT * possible SNF/rehab on discharge Not much else to add -- will continue to follow from a distance. L Subjective Date/time seen: 02/28/25 11:12 Interval history: Follow-up for acute kidney injury/acute renal failure. Renal function/creatinine continues to improve if not back to baseline; no apparent distress noted at the time of my visit; no other issues/events overnight or earlier this morning; no other acute complaints. Exam 2 Narrative: General: elderly but WD/WN male in NAD Heart: IRRR, normal S1 and S2; no rub Lungs: clear anteriorly Abdomen: soft, nontender, nondistended, positive bowel sounds Extremities: no cyanosis or clubbing; trace edema Skin: warm and intact Objective Data Vital Signs Vital Signs: Vital Signs Temp Pulse Resp BP Pulse Ox O2 Del Method 02/28/25 08:30 Room Air 02/28/25 08:22 79 02/28/25 08:21 79 02/28/25 08:04 69 02/28/25 07:48 86 20 02/28/25 07:40 75 20 02/28/25 07:35 97 Room Air 02/28/25 06:00 97.5 F L 62 18 132/91 H 97 02/28/25 04:00 87 02/28/25 02:11 72 20 02/28/25 02:02 66 20 02/28/25 00:00 72 02/27/25 22:49 97.6 F 84 16 126/74 95 02/27/25 20:20 84 20 02/27/25 20:11 86 20 02/27/25 20:00 99 02/27/25 20:00 Room Air Intake/Output Intake/Output: Intake & Output 02/25/25 02/26/25 02/27/25 02/28/25 23:59 23:59 23:59 23:59 Intake Total 1250 1600 1820 1780 Output Total 1800 1000 1700 3060 Balance -550 600 120 -1280 Meds/Results Medications: Active Medications Generic Name Dose Route Start Last Admin Trade Name Freq PRN Reason Stop Dose Admin Acetaminophen 650 mg 02/24/25 16:19 Acetaminophen 325 Mg Tablet PO Q4H PRN Mild Pain (1-3) or Fever Hydrocodone Bitart/Acetaminophen 1 tab 02/24/25 16:19 02/27/25 04:23 Hydrocodone/Acetaminophen (*Crx) 5-325 Mg Tablet PO 1 tab Q4H PRN Administration Moderate Pain (4-6) Albuterol 2.5 mg 02/24/25 20:00 02/28/25 16:17 Albuterol Sulfate Neb 2.5 Mg/3 Ml Inh INHALATION 2.5 mg Q6HRT AUDELIA Administration Amoxicillin/Clavulanate Potassium 1 tablet 02/27/25 14:00 02/28/25 08:22 Amoxicillin/Clavulanate K 875-125 Mg Tab PO 1 tablet Q12HR AUDELIA Administration Atorvastatin Calcium 20 mg 02/25/25 09:00 02/28/25 08:22 Atorvastatin 20 Mg Tablet PO 20 mg DAILY AUDELIA Administration Azelastine HCl 1 spray 02/25/25 09:00 02/28/25 08:22 Azelastine Hcl Nasal 0.1% 137 Mcg/Spr 30 Ml Btl NASAL 1 spray Q12HR AUDELIA Administration Baclofen 10 mg 02/25/25 09:00 02/28/25 17:20 Baclofen 10 Mg Tablet PO 10 mg TID AUDELIA Administration Dextrose 12.5 gm 02/24/25 16:19 Dextrose 50% 25 Gm/50 Ml Syringe IV PUSH PRN PRN Hypoglycemia Protocol Docusate Sodium 100 mg 02/24/25 17:00 02/28/25 17:20 Docusate Sodium 100 Mg Capsule PO 100 mg BID AUDELIA Administration Flecainide Acetate 50 mg 02/26/25 10:10 02/28/25 08:22 Flecainide Acetate 50 Mg Tablet PO 50 mg Q12HR AUDELIA Administration Fluticasone/Umeclidinium/Vilanterol 1 puff 02/25/25 08:00 02/28/25 07:35 Fluticasone/Umeclidin/Vilanter 200-62.5-25 Mcg Ellipta INHALATION 1 puff DAILYRT AUDELIA Administration Furosemide 20 mg 02/28/25 09:00 02/28/25 08:28 Furosemide 20 Mg Tablet PO 20 mg DAILY AUDELIA Administration Glucagon 1 mg 02/24/25 16:19 Glucagon For Inj 1 Mg Vial IM PRN PRN Hypoglycemia Protocol Glucose 15 gm 02/24/25 16:19 Glucose Oral Gel 15 Gm Of Glucse In 37.5 Gm Tube PO PRN PRN Hypoglycemia Protocol Dextrose 1,000 mls @ 100 mls/hr 02/24/25 16:19 Dextrose 5% 1,000 Ml IVPB PRN PRN Hypoglycemia Protocol Insulin Aspart 2 - 5 units 02/24/25 17:00 02/28/25 17:21 Insulin Aspart (*Bkc) 100 Units/Ml SUB-Q Not Given TIDWM AU[facility] Protocol Insulin Glargine 36 units 02/24/25 21:00 02/27/25 21:55 Insulin Glargine (*Bkc) 100 Units/Ml SUB-Q 36 units HS AUDELIA Administration Levothyroxine Sodium 50 mcg 02/25/25 06:30 02/28/25 05:39 Levothyroxine Sodium 50 Mcg Tablet PO 50 mcg DAILY@0630 AUDELIA Administration Loratadine 10 mg 02/25/25 09:00 02/28/25 08:22 Loratadine 10 Mg Tablet PO 10 mg DAILY AUDELIA Administration Metoprolol Tartrate 25 mg 02/25/25 21:00 02/28/25 08:21 Metoprolol Tartrate 25 Mg Tablet PO 25 mg Q12HR AUDELIA Administration Pregabalin 150 mg 02/25/25 09:00 02/28/25 17:21 Pregabalin (*Crx) 75 Mg Capsule PO 150 mg TID AUDELIA Administration Warfarin Sodium 6 mg 02/24/25 23:20 02/28/25 17:20 Warfarin (*Pbkc) 3 Mg Tablet PO 6 mg DAILY@1700 AUDELIA Administration Radiology Results: ITS Impressions Chest X-Ray 02/24/25 10:50 Impression: 1: Cardiomegaly with interstitial edema. Chest/Abdomen/Pelvis CTA 02/24/25 13:46 IMPRESSION: 1. Prominent groundglass opacities predominantly affecting the lower lobes. More focal consolidation present left lower lobe. Differential diagnosis includes infection, pulmonary edema, chronic interstitial lung disease, hypersensitivity pneumonitis. 2: Cholelithiasis. 3: Infrarenal abdominal aortic aneurysm measuring 4 cm. Renal Ultrasound 02/26/25 12:34 IMPRESSION: No hydronephrosis or renal calculi. Simple cysts within the right kidney. No findings to suggest long-standing medical renal disease, as detailed above. Labs Labs: Laboratory Tests 02/27/25 05:27 02/28/25 06:20 PT 26.2 H INR 2.5 Calcium 8.9 Microbiology 02/26/25 16:43 Sputum Sputum White Blood Cells - Final 02/26/25 16:43 Sputum Sputum Epithelial Cells - Final 02/26/25 16:43 Sputum Gram Stain Sputum Result 1 - Final 02/26/25 16:43 Sputum Gram Stain Sputum Result 2 - Final 02/26/25 16:43 Sputum Gram Stain Sputum Result 3 - Final 02/26/25 16:43 Sputum Gram Stain Sputum Result 4 - Final 02/26/25 16:43 Sputum Gram Stain Evaluation - Final 02/26/25 16:43 Sputum Sputum Culture - Preliminary 02/24/25 09:36 Blood Blood Culture - Preliminary 02/24/25 09:19 Blood Blood Culture - Preliminary
--- NOTE | 2025-02-28 16:02 | P.PNIM_ITS ---
Progress Note: A&P Assessment and Plan (1) RODRIGUEZ (acute kidney injury): Code(s): N17.9 - Acute kidney failure, unspecified Status: Acute Assessment and Plan: -Cr trended up to 1.89 02/27/25. Now downtrending. - baseline Cr around 1.0 - renal US unremarkable - unclear cause - could be prerenal secondary to diuresis, obstruction, contrast injury, AIN in setting of rash although this does not appear allergic - hold lasix, monitor I&Os - nephrology following, OK to restart diuretics. Monitor BMP. - patient medically stable for discharge, awaiting SNF placement (2) Sepsis: Code(s): A41.9 - Sepsis, unspecified organism Status: Acute Assessment and Plan: -criteria met on admission with tachycardia, WBC 13 - improved - LA WNL - hemodynamically stable - 30cc/kg bolus deferred due to concern for pulmonary edema - suspected source is pneumonia, management as below - blood cultures NGTD (3) Pneumonia: Code(s): J18.9 - Pneumonia, unspecified organism Status: Resolved Assessment and Plan: -Patient was recently admitted for UTI, pneumonia - CT chest with ground glass opacities in the bilateral lower lobes with more focal consolidation in the left lower lobe -admit WBC 13, improving on repeat. Procal 0.4, CRP 8.7 - viral PCR negative -Started on cefepime vancomycin on admission, MRSA DNA negative so will stop vancomycin - procal trended down - blood cultures NGTD - transition cefepime to Augmentin to complete 7-day course - speech evaluated with bedside swallow- recommended regular diet - sputum culture pending (4) Atrial fibrillation with rapid ventricular response: Code(s): I48.91 - Unspecified atrial fibrillation Status: Acute Assessment and Plan: -initial EKG sinus rhythm, went into Afib with RVR overnight 02/25. HR improved this AM, still Afib on telemetry. - continue coumadin 6 mg daily. INR 2.2. - cardio consulted, recommended to restart Felcainide and increased metoprolol. HR better controlled. (5) Pulmonary edema: Code(s): J81.1 - Chronic pulmonary edema Status: Acute Assessment and Plan: -admit imaging with pulmonary edema vs. pneumonia - no hypoxia or increased dyspnea - echo 02/25 limited study, but EF appears preserved - BNP WNL - appears euvolemic this AM - received IV lasix overnight 02/25, held due to RODRIGUEZ. Restarted PO abx 02/28/25. - hold Jardiance - monitor volume status (6) Generalized weakness: Code(s): R53.1 - Weakness Status: Acute Assessment and Plan: -Likely secondary to pneumonia, prolonged illness, and pulmonary edema - was discharge from [facility] 7/17/25 -PT OT recommened SNF, care coordination assisting with placement (7) Hyperlipidemia: Qualifiers: Hyperlipidemia type: mixed hyperlipidemia Qualified Code(s): E78.2 - Mixed hyperlipidemia Code(s): E78.5 - Hyperlipidemia, unspecified Status: Acute Assessment and Plan: -Continue statin (8) Diabetes mellitus with neuropathy: Qualifiers: Diabetes mellitus type: type 2 Diabetes mellitus skilled nursing insulin use: with termite control representative use Qualified Code(s): E11.40 - Type 2 diabetes mellitus with diabetic neuropathy, unspecified; Z79.4 - [facility] (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 Confirmed with patient. DVT prophylaxis- coumadin Subjective Date/time seen: 02/28/25 16:02 Interval history: Patient seen and examined at bedside. Doing well. Still agreeable to go to rehab. Denies chest pain or shortness of breath. Review of Systems Review of Systems: 12 systems were reviewed and are negativ e except for as per HPI. All systems reviewed & are unremarkable except as noted in HPI and below Exam Narrative: General: chronically ill-appearing Eyes: EOMI ENT: neck supple Cardiovascular: irregularly irregular Respiratory: Clear to auscultation, respirations even and unlabored on RA Gastrointestinal: Soft, non tender Genitourinary: no suprapubic tenderness Musculoskeletal: trace BLE edema. Skin: warm, dry Neuro: Alert. Psych: Mood appropriate Objective Data Vital Signs Vital Signs: Vital Signs - 24 hr 02/27/25 20:00 02/27/25 20:00 02/27/25 20:11 Temperature Pulse Rate 99 86 Respiratory Rate 20 Blood Pressure Pulse Oximetry Oxygen Delivery Room Air 02/27/25 20:20 02/27/25 22:49 02/28/25 00:00 Temperature 97.6 F Pulse Rate 84 84 72 Respiratory Rate 20 16 Blood Pressure 126/74 Pulse Oximetry 95 Oxygen Delivery 02/28/25 02:02 02/28/25 02:11 02/28/25 04:00 Temperature Pulse Rate 66 72 87 Respiratory Rate 20 20 Blood Pressure Pulse Oximetry Oxygen Delivery 02/28/25 06:00 02/28/25 07:35 02/28/25 07:40 Temperature 97.5 F L Pulse Rate 62 75 Respiratory Rate 18 20 Blood Pressure 132/91 H Pulse Oximetry 97 97 Oxygen Delivery Room Air 02/28/25 07:48 02/28/25 08:04 02/28/25 08:21 Temperature Pulse Rate 86 69 79 Respiratory Rate 20 Blood Pressure Pulse Oximetry Oxygen Delivery 02/28/25 08:22 02/28/25 08:30 02/28/25 12:05 Temperature Pulse Rate 79 74 Respiratory Rate Blood Pressure Pulse Oximetry Oxygen Delivery Room Air 02/28/25 14:00 Temperature 97.6 F Pulse Rate 66 Respiratory Rate 12 Blood Pressure 107/62 Pulse Oximetry 96 Oxygen Delivery Intake/Output Intake/Output: Intake & Output 02/25/25 02/26/25 02/27/25 02/28/25 23:59 23:59 23:59 23:59 Intake Total 1250 1600 1820 1280 Output Total 1800 1000 1700 1580 Balance -550 600 120 -300 Meds/Results Medications: Active Medications Generic Name Dose Route Start Last Admin Trade Name Freq PRN Reason Stop Dose Admin Acetaminophen 650 mg 02/24/25 16:19 Acetaminophen 325 Mg Tablet PO Q4H PRN Mild Pain (1-3) or Fever Hydrocodone Bitart/Acetaminophen 1 tab 02/24/25 16:19 02/27/25 04:23 Hydrocodone/Acetaminophen (*Crx) 5-325 Mg Tablet PO 1 tab Q4H PRN Administration Moderate Pain (4-6) Albuterol 2.5 mg 02/24/25 20:00 02/28/25 07:35 Albuterol Sulfate Neb 2.5 Mg/3 Ml Inh INHALATION 2.5 mg Q6HRT AUDELIA Administration Amoxicillin/Clavulanate Potassium 1 tablet 02/27/25 14:00 02/28/25 08:22 Amoxicillin/Clavulanate K 875-125 Mg Tab PO 1 tablet Q12HR AUDELIA Administration Atorvastatin Calcium 20 mg 02/25/25 09:00 02/28/25 08:22 Atorvastatin 20 Mg Tablet PO 20 mg DAILY AUDELIA Administration Azelastine HCl 1 spray 02/25/25 09:00 02/28/25 08:22 Azelastine Hcl Nasal 0.1% 137 Mcg/Spr 30 Ml Btl NASAL 1 spray Q12HR AUDELIA Administration Baclofen 10 mg 02/25/25 09:00 02/28/25 12:54 Baclofen 10 Mg Tablet PO 10 mg TID AUDELIA Administration Dextrose 12.5 gm 02/24/25 16:19 Dextrose 50% 25 Gm/50 Ml Syringe IV PUSH PRN PRN Hypoglycemia Protocol Docusate Sodium 100 mg 02/24/25 17:00 02/28/25 08:21 Docusate Sodium 100 Mg Capsule PO 100 mg BID AUDELIA Administration Flecainide Acetate 50 mg 02/26/25 10:10 02/28/25 08:22 Flecainide Acetate 50 Mg Tablet PO 50 mg Q12HR AUDELIA Administration Fluticasone/Umeclidinium/Vilanterol 1 puff 02/25/25 08:00 02/28/25 07:35 Fluticasone/Umeclidin/Vilanter 200-62.5-25 Mcg Ellipta INHALATION 1 puff DAILYRT AUDELIA Administration Furosemide 20 mg 02/28/25 09:00 02/28/25 08:28 Furosemide 20 Mg Tablet PO 20 mg DAILY AUDELIA Administration Glucagon 1 mg 02/24/25 16:19 Glucagon For Inj 1 Mg Vial IM PRN PRN Hypoglycemia Protocol Glucose 15 gm 02/24/25 16:19 Glucose Oral Gel 15 Gm Of Glucse In 37.5 Gm Tube PO PRN PRN Hypoglycemia Protocol Dextrose 1,000 mls @ 100 mls/hr 02/24/25 16:19 Dextrose 5% 1,000 Ml IVPB PRN PRN Hypoglycemia Protocol Insulin Aspart 2 - 5 units 02/24/25 17:00 02/28/25 12:34 Insulin Aspart (*Bkc) 100 Units/Ml SUB-Q Not Given TIDWM [facility] Protocol Insulin Glargine 36 units 02/24/25 21:00 02/27/25 21:55 Insulin Glargine (*Bkc) 100 Units/Ml SUB-Q 36 units HS AUDELIA Administration Levothyroxine Sodium 50 mcg 02/25/25 06:30 02/28/25 05:39 Levothyroxine Sodium 50 Mcg Tablet PO 50 mcg DAILY@0630 AUDELIA Administration Loratadine 10 mg 02/25/25 09:00 02/28/25 08:22 Loratadine 10 Mg Tablet PO 10 mg DAILY AUDELIA Administration Metoprolol Tartrate 25 mg 02/25/25 21:00 02/28/25 08:21 Metoprolol Tartrate 25 Mg Tablet PO 25 mg Q12HR AUDELIA Administration Pregabalin 150 mg 02/25/25 09:00 02/28/25 12:54 Pregabalin (*Crx) 75 Mg Capsule PO 150 mg TID AUDELIA Administration Warfarin Sodium 6 mg 02/24/25 23:20 02/27/25 17:10 Warfarin (*Pbkc) 3 Mg Tablet PO 6 mg DAILY@1700 AUDELIA Administration Radiology Results: ITS Impressions Chest X-Ray 02/24/25 10:50 Impression: 1: Cardiomegaly with interstitial edema. Chest/Abdomen/Pelvis CTA 02/24/25 13:46 IMPRESSION: 1. Prominent groundglass opacities predominantly affecting the lower lobes. More focal consolidation present left lower lobe. Differential diagnosis includes infection, pulmonary edema, chronic interstitial lung disease, hypersensitivity pneumonitis. 2: Cholelithiasis. 3: Infrarenal abdominal aortic aneurysm measuring 4 cm. Renal Ultrasound 02/26/25 12:34 IMPRESSION: No hydronephrosis or renal calculi. Simple cysts within the right kidney. No findings to suggest long-standing medical renal disease, as detailed above. Labs Labs: Laboratory Results - last 24 hr 02/26/25 02/27/25 02/27/25 20:56 16:49 21:53 PT INR Sodium Potassium Chloride Carbon Dioxide Anion Gap BUN Creatinine Estim Creat Clear Calc Estimated GFR Glucose POC Capillary Glucose 200 H 179 H 163 H Calcium 02/28/25 02/28/25 02/28/25 06:20 08:14 11:54 PT 26.2 H INR 2.5 Sodium 141 Potassium 3.5 Chloride 105 Carbon Dioxide 28 Anion Gap 8 BUN 21 H Creatinine 1.25 Estim Creat Clear Calc 63 Estimated GFR 55 L Glucose 123 H POC Capillary Glucose 93 173 H Calcium 8.9 Quality VTE Prophylaxis VTE prophylaxis: pharmacologic ordered
[2025-02-28] MEDS: WARFARIN (*PBKC) 3 MG TABLET 6 MG PO (17:20)
[2025-02-28] MEDS: INSULIN GLARGINE (*BKC) 100 UNITS/ML 36 UNITS SUB-Q (21:24)
[2025-03-01] VITALS (13 sets, daily range): BP systolic 121–123; BP diastolic 70–83; PULSE 58–87; RESP 16–20; TEMP 36.3–36.6; O2SAT 95–97
[2025-03-01] MEDS: ALBUTEROL SULFATE NEB 2.5 MG/3 ML INH INHALATION ×3 (01:52→14:57)
[2025-03-01] MEDS: LEVOTHYROXINE SODIUM 50 MCG TABLET PO (06:12)
[2025-03-01 07:11] LABS: INR 3.0; Prothrombin Time 30.4 Seconds (11.1-14.7)
[2025-03-01] MEDS: METOPROLOL TARTRATE 25 MG TABLET PO (08:54)
[2025-03-01] MEDS: DOCUSATE SODIUM 100 MG CAPSULE PO (08:54)
[2025-03-01] MEDS: FUROSEMIDE 20 MG TABLET PO (08:58)
[2025-03-01] MEDS: PREGABALIN (*CRX) 75 MG CAPSULE 150 MG PO ×2 (08:58→12:16)
[2025-03-01] MEDS: FLECAINIDE ACETATE 50 MG TABLET PO (08:58)
[2025-03-01] MEDS: BACLOFEN 10 MG TABLET PO ×2 (08:58→12:16)
[2025-03-01] MEDS: ATORVASTATIN 20 MG TABLET PO (08:59)
[2025-03-01] MEDS: AZELASTINE HCL NASAL 0.1% 137 MCG/SPR 30 ML BTL 1 SPRAY NASAL (08:59)
[2025-03-01] MEDS: LORATADINE 10 MG TABLET PO (08:59)
[2025-03-01] MEDS: FLUTICASONE/UMECLIDIN/VILANTER 200-62.5-25 MCG ELLIPTA 1 PUFF INHALATION (09:41)
[2025-03-01 10:00] LABS: Anion Gap 5 mmol/L (4-12); Blood Urea Nitrogen 17 mg/dL (9-20); Calcium 8.7 mg/dL (8.4-10.2); Carbon Dioxide 29 mmol/L (22-30); Chloride 106 mmol/L (98-107); Estimated CRCL calculation 64 ml/min; Estimated Glomerular Filt Rate 56; Glucose 130 mg/dL (65-110); Potassium 3.5 mmol/L (3.4-5.0); Sodium 140 mmol/L (137-145)
--- NOTE | 2025-03-01 14:26 | P.PNIM_ITS ---
Progress Note: A&P Assessment and Plan (1) Sepsis: Code(s): A41.9 - Sepsis, unspecified organism Status: Acute Plan (1) RODRIGUEZ (acute kidney injury): Code(s): N17.9 - Acute kidney failure, unspecified Status: Acute Assessment and Plan: -Cr trended up to 1.89 02/27/25. Now downtrending. - baseline Cr around 1.0 - renal US unremarkable - unclear cause - could be prerenal secondary to diuresis, obstruction, contrast injury, AIN in setting of rash although this does not appear allergic - hold lasix, monitor I&Os - nephrology following, OK to restart diuretics. Monitor BMP. - patient medically stable for discharge, awaiting SNF placement Creatinine 1.23 today, on the baseline, RODRIGUEZ resolved (2) Sepsis: Code(s): A41.9 - Sepsis, unspecified organism Status: Acute Assessment and Plan: -criteria met on admission with tachycardia, WBC 13 - improved - LA WNL - hemodynamically stable - 30cc/kg bolus deferred due to concern for pulmonary edema - suspected source is pneumonia, management as below - blood cultures NGTD Resolved (3) Pneumonia: Code(s): J18.9 - Pneumonia, unspecified organism Status: Resolved Assessment and Plan: -Patient was recently admitted for UTI, pneumonia - CT chest with ground glass opacities in the bilateral lower lobes with more focal consolidation in the left lower lobe -admit WBC 13, improving on repeat. Procal 0.4, CRP 8.7 - viral PCR negative -Started on cefepime vancomycin on admission, MRSA DNA negative so will stop vancomycin - procal trended down - blood cultures NGTD - transition cefepime to Augmentin to complete 7-day course - speech evaluated with bedside swallow- recommended regular diet Completed 7 day antibiotics (4) Atrial fibrillation with rapid ventricular response: Code(s): I48.91 - Unspecified atrial fibrillation Status: Acute Assessment and Plan: Paroxysmal AFib - continue coumadin 6 mg daily. INR 2.2. cardio consulted, recommended to restart Felcainide and increased metoprolol. HR better controlled. (5) Pulmonary edema: Code(s): J81.1 - Chronic pulmonary edema Status: Acute Assessment and Plan: -admit imaging with pulmonary edema vs. pneumonia - no hypoxia or increased dyspnea - echo 02/25 limited study, but EF appears preserved - BNP WNL - appears euvolemic this AM - received IV lasix overnight 02/25, held due to RODRIGUEZ. Restarted PO abx 02/28/25. -resume Jardiance - monitor volume status ) Generalized weakness: Code(s): R53.1 - Weakness Status: Acute Assessment and Plan: -Likely secondary to pneumonia, prolonged illness, and pulmonary edema - was discharge from [facility] bed 02/16/25 -PT OT recommened SNF, care coordination assisting with placement Hyperlipidemia: Qualifiers: Hyperlipidemia type: mixed hyperlipidemia Qualified Code(s): E78.2 - Mixed hyperlipidemia Code(s): E78.5 - Hyperlipidemia, unspecified Status: Acute Assessment and Plan: -Continue statin Qualifiers: Diabetes mellitus type: type 2 Diabetes mellitus care home insulin use: with care home use Qualified Code(s): E11.40 - Type 2 diabetes mellitus with diabetic neuropathy, unspecified; Z79.4 - 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 Code(s): E11.40 - Type 2 diabetes mellitus with diabetic neuropathy, unspecified Status: Acute Assessment and Plan: - continue home lantus with SSI - POCT glucose qACHS - hypoglycemia management protocol Abdominal aneurysm without mention of rupture: Code(s): I71.40 - Abdominal aortic aneurysm, without rupture, unspecified Status: Acute Assessment and Plan: -Not seen on previous CTs -Patient denies acute back pain or abdominal pain -Patient will need follow-up with vascular Subjective Date/time seen: 03/01/25 14:26 Interval history: Patient seen and examined at bedside in presents of patient's . Patient feels comfortable, denies chest pain shortness breast and rest, patient still has general weakness, denies focal weakness, Exam Narrative: GENERAL: Pleasant, in no acute distress. Well-nourished. Morbid obesity - EYES: EOMI. Anicteric. - HENT: Moist mucous membranes. - LUNGS: Clear to auscultation bilateral ly, no wheezing, rhonchi, or rales. - CARDIOVASCULAR: Regular rate and rhyth m. No murmur. No JVD. - ABDOMEN: Soft, non-tender and non-dist ended. No palpable masses. - EXTREMITIES: No edema. Peripheral puls es 2+. Non-tender. - NEUROLOGIC: No focal neurological defi cits. CN II-XII grossly intact. - PSYCHIATRIC: Awake, Alert and oriented x 3. Appropriate mood and affect. General weakness - SKIN: No rashes or lesions. Warm. - LYMPH: No cervical lymphadenopathy. Objective Data Vital Signs Vital Signs: Vital Signs - 24 hr 02/28/25 16:04 02/28/25 16:19 02/28/25 16:27 Temperature Pulse Rate 82 86 85 Respiratory Rate 20 20 Blood Pressure Pulse Oximetry Oxygen Delivery 02/28/25 20:00 02/28/25 20:00 02/28/25 20:53 Temperature Pulse Rate 84 86 Respiratory Rate 20 Blood Pressure Pulse Oximetry Oxygen Delivery Room Air 02/28/25 20:53 02/28/25 21:02 02/28/25 22:00 Temperature 98.0 F Pulse Rate 83 71 Respiratory Rate 20 16 Blood Pressure 125/72 Pulse Oximetry 96 93 Oxygen Delivery Room Air 03/01/25 00:00 03/01/25 01:52 03/01/25 02:01 Temperature Pulse Rate 69 62 70 Respiratory Rate 18 18 Blood Pressure Pulse Oximetry Oxygen Delivery 03/01/25 04:00 03/01/25 06:00 03/01/25 08:04 Temperature 97.4 F L Pulse Rate 71 63 58 L Respiratory Rate 18 Blood Pressure 121/83 Pulse Oximetry 96 Oxygen Delivery 03/01/25 08:53 03/01/25 08:54 03/01/25 09:41 Temperature Pulse Rate 78 Respiratory Rate Blood Pressure Pulse Oximetry 95 Oxygen Delivery Room Air Room Air 03/01/25 09:41 03/01/25 09:49 Temperature Pulse Rate 75 78 Respiratory Rate 18 20 Blood Pressure Pulse Oximetry Oxygen Delivery Intake/Output Intake/Output: Intake & Output 02/26/25 02/27/25 02/28/25 03/01/25 23:59 23:59 23:59 23:59 Intake Total 1600 1820 1780 1080 Output Total 1000 1700 3060 2475 Balance 600 120 -3263 -4966 Meds/Results Medications: Active Medications Generic Name Dose Route Start Last Admin Trade Name Freq PRN Reason Stop Dose Admin Acetaminophen 650 mg 02/24/25 16:19 Acetaminophen 325 Mg Tablet PO Q4H PRN Mild Pain (1-3) or Fever Hydrocodone Bitart/Acetaminophen 1 tab 02/24/25 16:19 02/27/25 04:23 Hydrocodone/Acetaminophen (*Crx) 5-325 Mg Tablet PO 1 tab Q4H PRN Administration Moderate Pain (4-6) Albuterol 2.5 mg 02/24/25 20:00 03/01/25 09:38 Albuterol Sulfate Neb 2.5 Mg/3 Ml Inh INHALATION 2.5 mg Q6HRT AUDELIA Administration Amoxicillin/Clavulanate Potassium 1 tablet 02/27/25 14:00 03/01/25 08:59 Amoxicillin/Clavulanate K 875-125 Mg Tab PO 1 tablet Q12HR AUDELIA Administration Atorvastatin Calcium 20 mg 02/25/25 09:00 03/01/25 08:59 Atorvastatin 20 Mg Tablet PO 20 mg DAILY AUDELIA Administration Azelastine HCl 1 spray 02/25/25 09:00 03/01/25 08:59 Azelastine Hcl Nasal 0.1% 137 Mcg/Spr 30 Ml Btl NASAL 1 spray Q12HR AUDELIA Administration Baclofen 10 mg 02/25/25 09:00 03/01/25 12:16 Baclofen 10 Mg Tablet PO 10 mg TID AUDELIA Administration Dextrose 12.5 gm 02/24/25 16:19 Dextrose 50% 25 Gm/50 Ml Syringe IV PUSH PRN PRN Hypoglycemia Protocol Docusate Sodium 100 mg 02/24/25 17:00 03/01/25 08:54 Docusate Sodium 100 Mg Capsule PO 100 mg BID AUDELIA Administration Flecainide Acetate 50 mg 02/26/25 10:10 03/01/25 08:58 Flecainide Acetate 50 Mg Tablet PO 50 mg Q12HR AUDELIA Administration Fluticasone/Umeclidinium/Vilanterol 1 puff 02/25/25 08:00 03/01/25 09:41 Fluticasone/Umeclidin/Vilanter 200-62.5-25 Mcg Ellipta INHALATION 1 puff DAILYRT AUDELIA Administration Furosemide 20 mg 02/28/25 09:00 03/01/25 08:58 Furosemide 20 Mg Tablet PO 20 mg DAILY AUDELIA Administration Glucagon 1 mg 02/24/25 16:19 Glucagon For Inj 1 Mg Vial IM PRN PRN Hypoglycemia Protocol Glucose 15 gm 02/24/25 16:19 Glucose Oral Gel 15 Gm Of Glucse In 37.5 Gm Tube PO PRN PRN Hypoglycemia Protocol Dextrose 1,000 mls @ 100 mls/hr 02/24/25 16:19 Dextrose 5% 1,000 Ml IVPB PRN PRN Hypoglycemia Protocol Insulin Aspart 2 - 5 units 02/24/25 17:00 03/01/25 12:16 Insulin Aspart (*Bkc) 100 Units/Ml SUB-Q Not Given TIDWM AUDELIA Protocol Insulin Glargine 36 units 02/24/25 21:00 02/28/25 21:24 Insulin Glargine (*Bkc) 100 Units/Ml SUB-Q 36 units HS AUDELIA Administration Levothyroxine Sodium 50 mcg 02/25/25 06:30 03/01/25 06:12 Levothyroxine Sodium 50 Mcg Tablet PO 50 mcg DAILY@0630 AUDELIA Administration Loratadine 10 mg 02/25/25 09:00 03/01/25 08:59 Loratadine 10 Mg Tablet PO 10 mg DAILY AUDELIA Administration Metoprolol Tartrate 25 mg 02/25/25 21:00 03/01/25 08:54 Metoprolol Tartrate 25 Mg Tablet PO 25 mg Q12HR AUDELIA Administration Pregabalin 150 mg 02/25/25 09:00 03/01/25 12:16 Pregabalin (*Crx) 75 Mg Capsule PO 150 mg TID AUDELIA Administration Warfarin Sodium 6 mg 02/24/25 23:20 02/28/25 17:20 Warfarin (*Pbkc) 3 Mg Tablet PO 6 mg DAILY@1700 AUDELIA Administration Radiology Results: ITS Impressions Chest X-Ray 02/24/25 10:50 Impression: 1: Cardiomegaly with interstitial edema. Chest/Abdomen/Pelvis CTA 02/24/25 13:46 IMPRESSION: 1. Prominent groundglass opacities predominantly affecting the lower lobes. More focal consolidation present left lower lobe. Differential diagnosis includes infection, pulmonary edema, chronic interstitial lung disease, hypersensitivity pneumonitis. 2: Cholelithiasis. 3: Infrarenal abdominal aortic aneurysm measuring 4 cm. Renal Ultrasound 02/26/25 12:34 IMPRESSION: No hydronephrosis or renal calculi. Simple cysts within the right kidney. No findings to suggest long-standing medical renal disease, as detailed above. Labs Labs: Laboratory Results - last 24 hr 02/28/25 02/28/25 03/01/25 17:06 21:15 06:50 PT 30.4 H INR 3.0 Sodium Potassium Chloride Carbon Dioxide Anion Gap BUN Creatinine Estim Creat Clear Calc Estimated GFR Glucose POC Capillary Glucose 163 H 197 H Calcium 03/01/25 03/01/25 03/01/25 07:55 08:07 11:44 PT INR Sodium 140 Potassium 3.5 Chloride 106 Carbon Dioxide 29 Anion Gap 5 BUN 17 Creatinine 1.23 Estim Creat Clear Calc 64 Estimated GFR 56 L Glucose 130 H POC Capillary Glucose 122 H 139 H Calcium 8.7
--- NOTE | 2025-03-01 14:39 | PM.DS ---
DS: Admitting Diagnosis Discharge Date 03/01 Admitting Diagnosis (1) Sepsis: Code(s): A41.9 - Sepsis, unspecified organism Status: Acute DS: Discharge Diagnosis Discharge Diagnosis (1) Sepsis: Code(s): A41.9 - Sepsis, unspecified organism Status: Acute (2) Osteomyelitis, chronic: Code(s): M86.60 - Other chronic osteomyelitis, unspecified site Status: Acute DS: Summary Hospital Course Hospital Course: Per H&P: 84-year-old male presents the hospital with increased weakness. He states that a few weeks ago he was admitted to the hospital with a UTI pneumonia and ended up going to rehab before a with home. at home he got progressively weak so he presented back to the hospital. In the emergency room he was hypoxic. However shows leukocytosis at 13.1, chloride of 108, GFR 54, creatinine of 1.27 with baseline being around 1.1, CRP being 2.2, UA being dark yellow with 11-[address] chest abdomen pelvis showed no pulmonary embolism.Prominent groundglass opacities predominantly affecting the lower lobes, Cholelithiasis, and Infrarenal abdominal aortic aneurysm measuring 4 cm. The following med issues have been addressed during hospitalization RODRIGUEZ (acute kidney injury): Code(s): N17.9 - Acute kidney failure, unspecified Status: Acute Assessment and Plan: -Cr trended up to 1.89 02/27/25. Now downtrending. - baseline Cr around 1.0 - renal US unremarkable - unclear cause - could be prerenal secondary to diuresis, obstruction, contrast injury, AIN in setting of rash although this does not appear allergic - hold lasix, monitor I&Os - nephrology following, OK to restart diuretics. Monitor BMP. - patient medically stable for discharge, awaiting SNF placement Creatinine 1.23 today, on the baseline, RODRIGUEZ resolved (2) Sepsis: Code(s): A41.9 - Sepsis, unspecified organism Status: Acute Assessment and Plan: -criteria met on admission with tachycardia, WBC 13 - improved - LA WNL - hemodynamically stable - 30cc/kg bolus deferred due to concern for pulmonary edema - suspected source is pneumonia, management as below - blood cultures NGTD Resolved (3) Pneumonia: Code(s): J18.9 - Pneumonia, unspecified organism Status: Resolved Assessment and Plan: -Patient was recently admitted for UTI, pneumonia - CT chest with ground glass opacities in the bilateral lower lobes with more focal consolidation in the left lower lobe -admit WBC 13, improving on repeat. Procal 0.4, CRP 8.7 - viral PCR negative -Started on cefepime vancomycin on admission, MRSA DNA negative so will stop vancomycin - procal trended down - blood cultures NGTD - transition cefepime to Augmentin to complete 7-day course - speech evaluated with bedside swallow- recommended regular diet Completed 7 day antibiotics (4) Atrial fibrillation with rapid ventricular response: Code(s): I48.91 - Unspecified atrial fibrillation Status: Acute Assessment and Plan: Paroxysmal AFib - continue coumadin 6 mg daily. INR 2.2. cardio consulted, recommended to restart Felcainide and increased metoprolol. HR better controlled. (5) Pulmonary edema: Code(s): J81.1 - Chronic pulmonary edema Status: Acute Assessment and Plan: -admit imaging with pulmonary edema vs. pneumonia - no hypoxia or increased dyspnea - echo 02/25 limited study, but EF appears preserved - BNP WNL - appears euvolemic this AM - received IV lasix overnight 02/25, held due to RODRIGUEZ. Restarted PO abx 02/28/25. -resume Jardiance - monitor volume status ) Generalized weakness: Code(s): R53.1 - Weakness Status: Acute Assessment and Plan: -Likely secondary to pneumonia, prolonged illness, and pulmonary edema - was discharge from [facility] bed 02/16/25 -PT OT recommened SNF, care coordination assisting with placement Hyperlipidemia: Qualifiers: Hyperlipidemia type: mixed hyperlipidemia Qualified Code(s): E78.2 - Mixed hyperlipidemia Code(s): E78.5 - Hyperlipidemia, unspecified Status: Acute Assessment and Plan: -Continue statin Qualifiers: Diabetes mellitus type: type 2 Diabetes mellitus chcf insulin use: with chcf use Qualified Code(s): E11.40 - Type 2 diabetes mellitus with diabetic neuropathy, unspecified; Z79.4 - intermediate designer (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 Code(s): E11.40 - Type 2 diabetes mellitus with diabetic neuropathy, unspecified Status: Acute Assessment and Plan: - continue home lantus with SSI - POCT glucose qACHS - hypoglycemia management protocol Abdominal aneurysm without mention of rupture: Code(s): I71.40 - Abdominal aortic aneurysm, without rupture, unspecified Status: Acute Assessment and Plan: -Not seen on previous CTs -Patient denies acute back pain or abdominal pain -Patient will need follow-up with vascular Time Spent with Patient Time attestation: Total time spent providing and/or coordinating discharge services: Exam Narrative: GENERAL: Pleasant, in no acute distress. Well-nourished. Morbid obesity - EYES: EOMI. Anicteric. - HENT: Moist mucous membranes. - LUNGS: Clear to auscultation bilaterally, no wheezing, rhonchi, or rales. - CARDIOVASCULAR: Regular rate and rhythm. No murmur. No JVD. - ABDOMEN: Soft, non-tender and non-distended. No palpable masses. - EXTREMITIES: No edema. Peripheral pulses 2+. Non-tender. - NEUROLOGIC: No focal neurological deficits. CN II-XII grossly intact. - PSYCHIATRIC: Awake, Alert and oriented x 3. Appropriate mood and affect. General weakness - SKIN: No rashes or lesions. Warm. - LYMPH: No cervical lymphadenopathy. DS: Data Data Completed and Pending Labs on day of discharge: Labs from last 24 hours 03/01/25 03/01/25 03/01/25 11:44 08:07 07:55 PT INR Sodium 140 Potassium 3.5 Chloride 106 Carbon Dioxide 29 Anion Gap 5 BUN 17 Creatinine 1.23 Estim Creat Clear Calc 64 Estimated GFR 56 L Glucose 130 H POC Capillary Glucose 139 H 122 H Calcium 8.7 03/01/25 02/28/25 02/28/25 06:50 21:15 17:06 PT 30.4 H INR 3.0 Sodium Potassium Chloride Carbon Dioxide Anion Gap BUN Creatinine Estim Creat Clear Calc Estimated GFR Glucose POC Capillary Glucose 197 H 163 H Calcium Preliminary micro results at discharge 02/26/25 16:43 Sputum Culture - Preliminary Sputum 02/24/25 09:36 Blood Culture - Preliminary Blood 02/24/25 09:19 Blood Culture - Preliminary Blood Discharge Plan Discharge Attending physician on discharge: Bina Braga Consulting providers: Sophie Helm; Curtis Hughes; Buddy Segovia Discharging Clinician: Bina Braga Anticipated Discharge Date/Time: 03/01/25 14:41 Patient Disposition: [facility] Activity: as tolerated Diet: heart healthy Patient Instructions: Suicide Prevention (DC) Patient Language: Beninese Discharge Medications: New hydrocodone-acetaminophen 5-325 mg Tablet 1 tablet PO Q8H PRN (Reason: Moderate Pain (4-6)) Qty: 20 0RF Continued acetaminophen [Tylenol Arthritis Pain] 650 mg tablet extended release 650 mg PO Q12H PRN (Reason: pain 1-4) Jardiance 25 mg Tablet 25 mg PO DAILY Qty: 30 0RF flecainide 50 mg Tablet 50 mg PO Q12H warfarin 6 mg tablet 6 mg PO DAILY Qty: 30 0RF Protocol: Dose Management Condition: Thursday Dose/Route: 6 mg Instruction: 1 x 6 mg tablet Condition: Thursday Dose/Route: 6 mg Instruction: 1 x 6 mg tablet Condition: Thursday Dose/Route: 6 mg Instruction: 1 x 6 mg tablet Condition: Thursday Dose/Route: 6 mg Instruction: 1 x 6 mg tablet Condition: Dose/Route: 6 mg Instruction: 1 x 6 mg tablet Condition: Thursday Dose/Route: 6 mg Instruction: 1 x 6 mg tablet Condition: Thursday Dose/Route: 6 mg Instruction: 1 x 6 mg tablet Protocol Text: Adjustment Start Date: Thursday01/27/25 INR Value: 2.6 INR Date: 01/27/25 Recheck Date: 02/03/25 triamcinolone acetonide 0.1 % cream 1 applic topical BID Qty: 80 0RF Patient Comments: left elbow Adult 50 Plus Probiotic 4 billion cell capsule 4,000 mmu cells PO DAILY Rx Instructions: administer with a meal (DME) wheeled walker XL See Rx Instructions .Route .MEDSUPPLY Qty: 1 0RF Rx Instructions: As directed (DME) knee high medium compression stockings See Rx Instructions .Route .MEDSUPPLY Qty: 1 0RF Rx Instructions: As directed daily for leg edema (DME) diabetic shoes See Rx Instructions .Route .MEDSUPPLY Qty: 1 0RF Rx Instructions: As directed (DME) FreeStyle Santiago 3 Plus Sensor Device See Rx Instructions .Route Qty: 2 12RF Rx Instructions: As directed QID lidocaine [Salonpas (lidocaine)] 4 % adhesive patch,medicated 1 patch topical DAILY PRN (Reason: pain) Qty: 30 6RF Rx Instructions: Apply for 12 hours on and 12 hours off. loratadine 10 mg Capsule 10 mg PO DAILY docusate sodium 50 mg Capsule 50 mg PO BID cholecalciferol (vitamin D3) 50 mcg (2,000 unit) Capsule 50 mcg PO DAILY alpha lipoic acid 200 mg Capsule 200 mg PO DAILY diclofenac sodium 1 % gel 4 g topical QID PRN (Reason: joint pain) Rx Instructions: apply to single knee, ankle, foot; for foot includes sole/toes/top of foot (DME) NovoFine Plus 32 gauge x 1/6 needle See Rx Instructions .Route Qty: 100 5RF Rx Instructions: As directed TID to check glucose. (DME) OneTouch Ultra Test Strip See Rx Instructions .ROUTE .COMPLEX Qty: 100 3RF Dose Instruction: USE TO TEST BLOOD SUGAR THREE TIMES DAILY Rx Instructions: USE TO TEST BLOOD SUGAR THREE TIMES DAILY (DME) lancets [OneTouch Delica Plus Lancet] 33 gauge misc See Rx Instructions .Route Qty: 300 12RF Rx Instructions: As directed TID (DME) compression stockings knee high 15-20mmHG See Rx Instructions .Route .MEDSUPPLY Qty: 1 0RF Rx Instructions: As directed daily (DME) wheeled walker See Rx Instructions .Route .MEDSUPPLY Qty: 1 0RF Rx Instructions: As directed daily (DME) FreeStyle [place] 3 [place] Misc See Rx Instructions .Route Qty: 2 12RF Rx Instructions: As directed QID furosemide 20 mg tablet See Rx Instructions .ROUTE .COMPLEX Qty: 90 1RF Dose Instruction: TAKE 1 TABLET BY MOUTH EVERY DAY FOR 30 DAYS Rx Instructions: TAKE 1 TABLET BY MOUTH EVERY DAY FOR 30 DAYS metoprolol tartrate 25 mg tablet 12.5 mg PO BID Qty: 90 3RF tamsulosin 0.4 mg capsule 0.8 mg PO DAILY Qty: 180 2RF pregabalin 150 mg capsule 150 mg PO TID Qty: 270 1RF Trelegy Ellipta 200-62.5-25 mcg blister with device 1 inh inhalation DAILY Qty: 60 5RF levothyroxine 50 mcg tablet 50 mcg PO DAILY Qty: 90 2RF atorvastatin 20 mg tablet 20 mg PO DAILY Qty: 90 3RF Fiasp FlexTouch U-100 Insulin 100 unit/mL (3 mL) insulin pen See Rx Instructions subcut .COMPLEX Qty: 15 12RF Rx Instructions: Inject 8-10 units subcutaneously TID AC; omeprazole 20 mg capsule,delayed release(DR/EC) 20 mg PO DAILY Qty: 90 1RF baclofen 10 mg tablet 10 mg PO TID Qty: 270 1RF (DME) pen needle, diabetic 32 gauge x 5/32 needle See Rx Instructions .Route Qty: 100 12RF Rx Instructions: As directed four times daily with insulin (DME) 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 every morning and night Changed insulin glargine [Lantus U-100 Insulin] 100 unit/mL Solution 36 unit subcut HS Qty: 10 2RF Discontinued hydrocodone-acetaminophen 5-325 mg Tablet 1 tablet PO Q6H PRN (Reason: Pain Rated 6 Or Greater) Qty: 20 0RF Date of admission: 02/25/25 13:09 Primary Care Provider: Liset Haynes Admitting Provider: Ayesha Stewart Attending physician on admission: Ayesha Stewart Condition: Serious
== END 2025-03-01 15:10 | disposition swing bed (61) | DRG 871 ==
LOC: ANHED 15:02 → ANH3MED 17:11
PROVIDERS: Internal Medicine Nephrology; Nurse Practitioner Gerontology; Physician Assistant; Admitting Provider Family Medicine; Emergency Provider Emergency Medicine; PCP Family Medicine; Visit Provider Hospitalist
DX: A41.9 Sepsis, unspecified organism (principal); J18.9 Pneumonia, unspecified organism; J81.1 Chronic pulmonary edema; N17.9 Acute kidney failure, unspecified; I48.19 Other persistent atrial fibrillation; J44.0 Chronic obstructive pulmonary disease with (acute) lower respiratory infection; D75.1 Secondary polycythemia; E03.9 Hypothyroidism, unspecified; E11.42 Type 2 diabetes mellitus with diabetic polyneuropathy; E78.2 Mixed hyperlipidemia; I10 Essential (primary) hypertension; I71.40 Abdominal aortic aneurysm, without rupture, unspecified; N40.0 Benign prostatic hyperplasia without lower urinary tract symptoms; R21 Rash and other nonspecific skin eruption; Z86.711 Personal history of pulmonary embolism; Z86.718 Personal history of other venous thrombosis and embolism; Z79.01 Long term (current) use of anticoagulants; Z20.822 Contact with and (suspected) exposure to COVID-19; Z98.41 Cataract extraction status, right eye; Z98.42 Cataract extraction status, left eye; Z90.81 Acquired absence of spleen; Z96.653 Presence of artificial knee joint, bilateral; Z87.891 Personal history of nicotine dependence; Z79.84 Long term (current) use of oral hypoglycemic drugs; Z79.4 Long term (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
CPT/HCPCS: 36415; 71045; 71275; 74177; 76775; 80048; 80053; 80069; 81001; 82550; 82570; 82948; 83605; 83690; 83735; 83880; 84145; 84156; 84300; 84443; 84540; 85025; 85610; 85730; 85999; 86140; 87040; 87070; 87205; 87637; 87641; 87899; 92610; 93005; 94640; 96365; 96366; 96367; 96375; 96376; 97110; 97161; 97165; 97530; 99285; A9270; C8929; G0378; J0616; J0692; J1200; J1815; J1938; J3373; J3475; Q9957; Q9967

== ENCOUNTER 2025-03-01 15:50 | Inpatient (IN) | payer MEDICARE, SELFPAY ==
--- OUTSIDE RECORDS SUMMARY | 2025-03-01 15:54 | XMS_ITS | Continuity of Care Document ---
Author Organization [facility] Address [address] [place] [address] Phone Care Team Providers Care Telephone Station Repairer Name Role Phone Julisa Mcintyre Unavailable Unavailable [...] Diagnoses Date Provider Providers Copied on Encounter [facility], [address], [place], [place], [id number], [place] tel:[phone] [facility] No Information 0 Miguelina Egan. [address] , [address], [place], [address], [place]. tel:[phone] [facility], [address], [place], [place], [id number], [place] tel:[phone] [facility] No Information 0 Miguelina Rodriguezn. [address], [place], [place], [facility], [place]. tel:[phone] [facility], [address], [place], [place], [address], [place] tel:[phone] [facility] No Information 0 Miguelina Julisa. [address] , [address], [place], [place], [facility], [place]. tel:[phone] Office/outpati ent Visit, [facility], [id number] [place] [address] [address], [place], [place], [id number], tel:[phone] [facility] No Information 0 Miguelina Rodriguezn. [address], [place], [place], [facility], [place]. tel:[phone] Office/outpati ent Visit, [facility], [address], [place], [place], [address], [place] tel:[phone] [facility] No Information Dec-2 9-200 9 Miguelina Julisa. [address] , [address], [place], [place], [facility], [place]. tel:[phone] [facility], [address], [place], [place], [address], [place] tel:[phone] [facility] No Information Oct-2 7-200 9 Miguelina Julisa. [address], [place], [place], [facility], [place]. tel:[phone] [facility], [address], [place], [place], [address], [place] tel:[phone] [facility] No Information Oct-0 6-200 9 Mcintyre Julisa. [address], [place], [place], [facility], [place]. tel:[phone] [facility], [address], [place], [place], [address], [place] tel:[phone] [facility] No Information Sep-2 4-200 9 Mcintyre Julisa. [address], [place], [facility], [place]. tel:[phone] [facility], [address], [place], [place], [address], [place] tel:[phone] [facility] No Information Sep-2 3-200 9 Mcintyre Julisa. [address], [place], [facility], [place]. tel:[phone] [facility], [address] [place] [address] [address], [place], [place], [address], [place] tel:[phone] [facility] No Information Sep-1 5-200 9 Miguelina Rodriguezn. [address], [place], [facility], [place]. tel:[phone] [facility], [address], [place], [place], [address], [place] tel:[phone] [facility] No Information Sep-1 0-200 9 Miguelina Julisa. [address], [place], [facility], [place]. tel:[phone] [facility], [address], [place], [place], [id number], [place] tel:[phone] [facility] No Information Sep-0 9-200 9 Miguelina Julisa. [address], [place], [facility], [place]. tel:[phone] Office Consultation [facility], [address], [place], [place], [address], [place] tel:[phone] [facility] No Information 9 Miguelina Egan. [address], [place], [address], [place]. tel:[phone] Family History Family Member Type Diagnosis Age [...]
--- OUTSIDE RECORDS SUMMARY | 2025-03-01 15:54 | XMS_ITS | Clinical Summary ---
Author Organization [facility] Address [address] [place] [address] Care Team Providers Care Director Of Medical Education Name Role Phone Unavailable Primary Care Provider Unavailabl e Social History Tobacco Use Types Packs/Day Years Used Date Smoking Tobacco: Never Assessed Sex and Gender Information Value Date Recorded Sex Assigned at Not on file Legal Sex Male 5:58 PM BINDING END STITCHER Gender Identity Not on file Sexual Orientation [...]
--- OUTSIDE RECORDS SUMMARY | 2025-03-01 15:54 | XMS_ITS | Encounter Summary ---
Author Organization [facility] Address [address] [facility] [place] [address] Phone Care Team Providers Care Manager Sql Name Role Phone Myron Diop MD Primary Care Provider [phone] Mayra Casper MD Unavailable [phone] Reason for Visit * Reason Comments Medication Refill Encounter Details Date Type Department Care Team (Late st Contact Info) Description 07/11/2020 Refill [facility] - [facility] [address] [place] [address] Rosa Isela Boo Luz, PAC [address] [place] [address] Medication Refill Social History Tobacco Use Types [...] Job Start Date Job End Date retired-from [email or web address] Not on file Not on file Not on file documented as of this encounter Miscellaneous Notes * Telephone Encounter - Kelly Hodge CMA - 07/11/2020 1:17 PM MOTEL FOOD SERVICE SUPERVISOR Patients was notified on 03/29/2020 that refills after that were to go to primary care provider. verbalized understanding L FOOD SERVICE SUPERVISOR documented in this encounter Plan of Treatment Not on file documented as of this encounter Visit Diagnoses Not on filedocumented in this encounter Care Teams Manager Sql Relationship Specialty Start Date End Date Myron Diop MD [address] [place] [address] PCP - General Family Medicine 03/11/17 Mayra Casper MD [address] [place] [address] Consulting Physician Gastroenterology 07/30/17 documented as of this encounter
--- OUTSIDE RECORDS SUMMARY | 2025-03-01 15:54 | XMS_ITS | Clinical Summary ---
Author Organization [facility] Address [address], [address] [address] Phone Care Team Providers Care Motorboat Operator Name Role Phone Christopher Diop MD Primary Care Provider [phone] Mayra Casper MD Unavailable [phone] Allergies No known active allergies Medications tamsulosin [...] Tabs by mouth daily. Active Probiotic Product ([employer] HEALTH PO) Take by mouth. Acti ve [...] Job Start Date Job End Date retired-from [employer] Not on file Not on file Not [...] age to complete this topic Care Teams Motorboat Operator Relationship Specialty Start Date End Date Christopher Diop MD [address] [place] [address] PCP - General Family Medicine 03/11/17 Mayra Casper MD [address] [place] [address] Consulting Physician Gastroenterology 07/30/17
--- OUTSIDE RECORDS SUMMARY | 2025-03-01 15:54 | XMS_ITS | Clinical Summary ---
Author Organization [facility] Address [address] [place] [address] Care Team Providers Care Radiologic Therapist Name Role Phone Liset Haynes MD Primary Care Provider [phone] Allergies No known active allergies Medications amiodarone [...] STL ABSTRACTION Provider, Abstract 01/11/2025 Orders Only [facility] Oncology and Hematology [facility] [address] [place] [address] Kendall Wills MD 01/10/2025 11:45 AM CDT Office Visit [facility] Oncology and Hematology [facility] [address] [place] [address] Kendall Wills MD Polycythemia, secondary (Primary Dx) [...] kg (343 lb) 07/12/2024 1:0 3 PM TRAFFIC CONTROL SIGNALER Patient is unable to step on scale,patient gave me a verbal current weight from recent. Height 188 cm (6' 2) 06/08/2018 8:37 AM TRAFFIC CONTROL SIGNALER Body Mass Index 44.04 06/08/2018 8:37 AM TRAFFIC CONTROL SIGNALER Plan of Treatment Upcoming Encounters Date Type Department Care Team (Late st Contact Info) Description 07/13/2025 1:00 PM TRAFFIC CONTROL SIGNALER Office Visit [facility] Oncology and Hematology - [place] [address] [place] [address] [facility] [address] [place] [address] Kendall Wills MD [address] [facility] [address] [place] [address] Health Maintenance Due Date Last [...] Res ult from Last 3 Months Insurance [facility] Care Teams Radiologic Therapist Relationship Specialty Start Date End Date Liset Haynes MD [address] [place] [address] PCP - General Family Practice 01/06/23
--- OUTSIDE RECORDS SUMMARY | 2025-03-01 15:54 | XMS_ITS | Encounter Summary ---
Author Organization [facility] Address [address] [place] [address] Care Team Providers Care Display Specialist Name Role Phone Liset Haynes MD Primary Care Provider Encounter Details Date Type Department Care Team ([facility] st Contact Info) Description 02/27/2025 Orders Only [facility] Medical Group Cardiology [address] [place] [address] Curtis Hughes MD [address] [facility] [address] [place] [id number] Social History Tobacco Use Types Packs/Day Years [...] on file Legal Sex Male 3:18 AM 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 Gender Identity Not on file Sexual Orientation Not on file documented as of this encounter Plan of Treatment Not on file documented as of this encounter Procedures Procedure Name Priority Date/Time Associated Diagnosis Comments CARDIOLOGY DOCUMENT SCAN Routine 02/26/2025 3:40 PM CDT CARDIOLOGY DOCUMENT SCAN Routine 02/25/2025 3:26 PM CDT documented in this encounter Results * Cardiology Document Scan (02/26/2025 3:40 PM CDT) Anatomical Region Laterality Modality Other us Curtis Hughes MD [facility] SERVICES PROCEDURES F inal Result * Cardiology Document Scan (02/25/2025 3:26 PM CDT) Anatomical Region Laterality Modality Other us Curtis Hughes MD CV CARDIAC SERVICES PROCEDURES F inal Result documented in this encounter Visit Diagnoses Not on filedocumented in this encounter Care Teams Display Specialist Relationship Specialty Start Date End Date Liset Haynes MD PCP - General Family Medicine 08/05/22 documented as of this encounter
--- OUTSIDE RECORDS SUMMARY | 2025-03-01 15:54 | XMS_ITS | Clinical Summary ---
Author Organization [facility] Address [address] [place] [address] Care Team Providers Care Tower Loader Operator Name Role Phone Liset Haynes MD Primary Care Provider [phone] Allergies Active Allergy Reactions Criticality Noted Date [...] 07/28/2023 Assessment & Plan (07/28/2023 1:21 PM OPERATIONS ADMINISTRATIVE ASSISTANT): 07/28 medications reviewed and updated through contact with patient[facility] (subarachnoid hemorrhage) 07/27/2023 Assessment & Plan (07/29/2023 7:30 AM OPERATIONS ADMINISTRATIVE ASSISTANT): - Neurosurgery consulted - Repeat head CT [...] 07/27/2023 Assessment & Plan (07/27/2023 2:21 PM OPERATIONS ADMINISTRATIVE ASSISTANT): - PRS consulted - s/p repair with 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 - Bacitracin TID x 3 days, then vaseline - HOB elevation - Pending recovery or discharge, please call [phone] or [phone] to schedule follow-up within 1-2 weeks to be seen by an BURT Left knee pain 07/27/2023 Assessment & Plan (07/28/2023 12:59 PM OPERATIONS ADMINISTRATIVE ASSISTANT): - XR left knee: negative for acute fracture Polycythemia 07/27/2023 Assessment & Plan (07/28/2023 12:59 PM OPERATIONS ADMINISTRATIVE ASSISTANT): #coagulopathy - last PE in per chart [...] 07/27/2023 Assessment & Plan (07/27/2023 2:50 PM OPERATIONS ADMINISTRATIVE ASSISTANT): - continue home levothyroxine Elevated red blood cell count 07/21/2023 Closed fracture of left distal fibula 03/11/2019 Overview (03/11/2019): Added automatically from request for surgery [id number] Acute pain due to trauma 03/11/2019 Type 2 diabetes mellitus, wi th long-term current use of insulin 03/11/2019 Assessment & Plan (07/28/2023 1:07 PM OPERATIONS ADMINISTRATIVE ASSISTANT): #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, [...] 02/08/2019 Assessment & Plan (08/06/2021 12:23 PM OPERATIONS ADMINISTRATIVE ASSISTANT): Cholesterol <200 mg/dL 142 137 R, CM 116 Low R 118 R, CM HDL > OR = 40 mg/dL 46 41 R, CM 34 Low R 27 Low R, CM Triglycerides <150 mg/dL 84 83 R, CM 80 R 117 R, CM LDL mg/dL (calc) 80 He remains at goal on lipitor 40 mg so will continue Assessment & Plan (08/15/2020 12:58 PM OPERATIONS ADMINISTRATIVE ASSISTANT): He is on lipitor 20 mg= TC 151/HDL 41/ TG 105/ LDL 89 He has been averaging in the 80 range the past 3 years so am going to the 40 mg dosing to get it down below 70 as he has no sx on the 20 Assessment & Plan (08/17/2019 12:02 PM OPERATIONS ADMINISTRATIVE ASSISTANT): TC 137/LDL 79 on lipitor 20 mg and at goal Assessment & Plan (02/08/2019 1:08 PM CDT): His LDL is at goal Presence of IVC filter 09/28/2018 Bruising 03/19/2017 Chronic anemia 03/19/2017 Edema 03/19/2017 Pulmonary embolism without acute cor pulmonale 0 02/10/2017 Assessment & Plan (07/28/2023 11:41 AM OPERATIONS ADMINISTRATIVE ASSISTANT): - Hold warfarin - s/p IVC filter Assessment & Plan (07/21/2017 12:18 PM OPERATIONS ADMINISTRATIVE ASSISTANT): Unfortunately, he needs anticoagulation. A recent venous [...] 01/20/2017 Assessment & Plan (08/17/2019 12:05 PM OPERATIONS ADMINISTRATIVE ASSISTANT): 1. 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 Global left ventricular [...] 01/20/2017 Assessment & Plan (07/27/2023 2:41 PM OPERATIONS ADMINISTRATIVE ASSISTANT): See Pulmonary Embolism Assessment & Plan (01/20/2017 [...] elective Lexiscan nuclear stress test over at [facility] which is convenient. If this is negative and since pulmonary is no from there mechanism. It may be worthwhile to consider some type of an alternate exercise program such as swimming, i.e. water aerobic Pure hypercholesterolemia 01/20/2017 Assessment & Plan (07/27/2023 2:42 PM OPERATIONS ADMINISTRATIVE ASSISTANT): - Continue home Lipitor Assessment & Plan (02/08/2019 1:06 PM CDT): SCRIBED Cholesterol, Total l - h 151 SCRIBED HDL l - h 45 SCRIBED LDL l - h 87 SCRIBED Triglycerides l - h 95 His LDL is at goal on lipitor 20 mg a day Assessment & Plan (08/11/2018 10:31 AM OPERATIONS ADMINISTRATIVE ASSISTANT): Lipid profile today=TC 170/ HDL 55/ TG [...] lipitor Assessment & Plan (07/21/2017 12:22 PM OPERATIONS ADMINISTRATIVE ASSISTANT): Todays lipid profile= TC 151/ HDL 45/ [...] 01/02 Assessment & Plan (07/27/2023 2:47 PM OPERATIONS ADMINISTRATIVE ASSISTANT): - BMI 44.94 kg/m2 on admission Assessment & Plan (02/08/2019 2:11 PM CDT): He continues to work with diet and exercise Assessment & Plan (08/11/2018 10:35 AM OPERATIONS ADMINISTRATIVE ASSISTANT): He continues to work with calorie restriction and ambulation Assessment & Plan (01/27/2018 11:21 AM CDT): He works with diet, exercise limited as he walks with a cane Assessment & Plan (07/21/2017 12:31 PM OPERATIONS ADMINISTRATIVE ASSISTANT): He continues to work with diet Assessment & Plan (02/10/2017 1:56 PM CDT): Need for wt loss discussed. Recs: 1) continue diet and lifestyle modifications. Metastatic neoplasm 07/18/2016 Benign paroxysmal positional vertigo 09/20/2015 Pulmonary embolism 08/09/2015 Paroxysmal atrial fibrillation 08/09/2015 Assessment & Plan (07/27/2023 2:57 PM OPERATIONS ADMINISTRATIVE ASSISTANT): - Continue home flecainide - Continue home metoprolol - suppressed on warfarin, flecainide; follows with cardiology outpatient - last TTE in 2018 w/ LVEF 55% and no obvious structural issues Assessment & Plan (08/06/2021 12:26 PM OPERATIONS ADMINISTRATIVE ASSISTANT): He has had no recurrences since last year; echo normal, So I made no changes He is protected with Warfarin, on tambocor and metoprolol which I would continue Assessment & Plan (08/15/2020 12:39 PM OPERATIONS ADMINISTRATIVE ASSISTANT): He has had recurrent episodes of atrial [...] 07/12/2015 Assessment & Plan (07/28/2023 11:47 AM OPERATIONS ADMINISTRATIVE ASSISTANT): - 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 then per ID - doxycycline reordered Arthritis 12/17/2009 Hypertension 12/17/2009 Assessment & Plan (08/06/2021 12:26 PM OPERATIONS ADMINISTRATIVE ASSISTANT): His BP remains at goal on the BB, so will continue Assessment & Plan (08/15/2020 12:34 PM OPERATIONS ADMINISTRATIVE ASSISTANT): His blood pressure is at goal Assessment & Plan (08/17/2019 12:00 PM OPERATIONS ADMINISTRATIVE ASSISTANT): His BP remains at goal Assessment & Plan (02/08/2019 1:05 PM CDT): His BP remains at goal Assessment & Plan (08/11/2018 10:26 AM OPERATIONS ADMINISTRATIVE ASSISTANT): His BP is at goal Encounters Date Type Department Care Team Description 02/27/2025 Orders Only [facility] Medical Group Cardiology [address] [place] [address] Curtis Hughes MD from Last 3 Months Immunizations Immunization Administration [...] on file Legal Sex Male 3:18 AM OPERATIONS ADMINISTRATIVE ASSISTANT Gender Identity Not on file Sexual Orientation Not on file Obstetrics History Last Filed Vital Signs Vital Sign Reading Time Taken Comments Blood Pressure 108/70 10/07/2024 2:53 PM OPERATIONS ADMINISTRATIVE ASSISTANT Pulse 62 10/07/2024 2:53 PM OPERATIONS ADMINISTRATIVE ASSISTANT Temperature 36.3 C (97.3 F) 09/07/2024 7:18 AM OPERATIONS ADMINISTRATIVE ASSISTANT Respiratory Rate 18 09/07/2024 8:20 AM OPERATIONS ADMINISTRATIVE ASSISTANT Oxygen Saturation 94% 10/07/2024 2:53 PM OPERATIONS ADMINISTRATIVE ASSISTANT Inhaled Oxygen Concentration - - Weight 155.6 kg (343 lb) 10/07/2024 2:53 PM OPERATIONS ADMINISTRATIVE ASSISTANT Height 188 cm (6' 2) 10/07/2024 2:53 PM OPERATIONS ADMINISTRATIVE ASSISTANT Body Mass Index 44.04 10/07/2024 2:53 PM OPERATIONS ADMINISTRATIVE ASSISTANT Plan of Treatment Health Maintenance Due Date [...] DOCUMENT SCAN Routine 02/25/2025 3:26 PM CDT EGFR STAT 07/27/2023 8:57 AM OPERATIONS ADMINISTRATIVE ASSISTANT LIPID PANEL Routine 11/13/2020 8:46 AM CDT HEMOGLOBIN A1C STAT 03/11/2019 12:48 PM CDT from Last 3 Months or Most Recently Relevant to Health Maintenance Results * Cardiology Document Scan (02/26/2025 3:40 PM CDT) Anatomical Region Laterality Modality Other us Curtis Hughes MD CV CARDIAC SERVICES PROCEDURES F inal Result * Cardiology Document Scan (02/25/2025 3:26 PM CDT) Anatomical Region Laterality Modality Other us Curtis Hughes MD CV CARDIAC SERVICES PROCEDURES F inal Result * eGFR (07/27/2023 8:57 AM OPERATIONS ADMINISTRATIVE ASSISTANT) eGFR 60 >=60 mL/min/1. 73 m2 [facility] Comment: Interpretive Data Reference Interval Normal [...] last reviewed 2021. Blood 07/27/2023 8:57 AM OPERATIONS ADMINISTRATIVE ASSISTANT 07/27/2023 9:13 AM OPERATIONS ADMINISTRATIVE ASSISTANT us Carlota Blum MD LAB BLOOD ORDERABLES F inal Result [facility] [place] [address] * Lipid panel (11/13/2020 8:46 AM CDT) Pathologist [facility] Cholesterol 142 <200 mg/dL [facility] [...] LDL-C. Norberto SS et al. TEGAN. 2013;310(19): 0925-9215 (http://education.Performable.[employer]/faq/QKX121) Chol/HDL ratio 3.1 <5.0 (calc) [facility] [...] LAB BLOOD ORDERABLES Final Result [facility] [address] [place] [address] * (ABNORMAL) Hemoglobin A1c (03/11/2019 12:48 PM CDT) Hgb A1C 7.5(H) 4.0 - 5.6 % [facility] Estimated Average Glucose 169 mg/dL [facility] Comment: The ADA recommends reporting an estimated Average Glucose (eAG) with all Hemoglobin A1c results using the equation derived from a study of 507 normal and diabetic adults. Minority populations were underrepresented and children were not included. (Diabetes Care 31:8136-1828, 2008). The eAG is not equivalent to a fasting glucose. Blood specimen (specimen) 03/11/2019 12:48 PM CDT 03/11/2019 12:59 PM CDT Alvaro Ortez DO LAB BLOOD ORDERABLES Fi nal Result [facility] Department [place] [address] from Last 3 Months or Most Recently Relevant to Health Maintenance Insurance [facility] MEDICARE [facility] Address: [facility] [address] [place] [address] [employer] MEDICARE [facility] MEDICARE [facility] MEDICARE UHC MEDICARE [facility] Address: [address] [address] [place] [address] [facility] MEDICARE [facility] Address: [address] [address] [place] [address] Advance Directives For more information, please contact: [phone] * Full Code (Latest Code Status on File) Date Activated Date Inactivated Comments 09/07/2024 7:02 AM 09/07/2024 1:03 PM * Full Code Date Activated Date Inactivated Comments 01/22/2024 12:34 PM 01/22/2024 7:05 PM * Full Code Date Activated Date Inactivated Comments 07/27/2023 11:35 AM 07/29/2023 6:04 PM * Full Code Date Activated Date Inactivated Comments 03/11/2019 9:03 PM 03/16/2019 8:04 PM Care Teams Tower Loader Operator Relationship Specialty Start Date End Date Liset Haynes MD PCP - General Family Medicine 08/05/22
--- OUTSIDE RECORDS SUMMARY | 2025-03-01 15:54 | XMS_ITS ---
Author Organization [facility] Address [address] [place] [address] Care Team Providers Care Fire Control Assistant Name Role Phone Liset Haynes MD Primary Care Provider [phone] Active Problems Problem Noted Date Diagnosed Date Dysphagia 09/17/2023 Encounter for medication review 07/28/2023 Assessment & Plan (07/28/2023 1:21 PM SPACE OPERATIONS OFFICER): 07/28 medications reviewed and updated through contact [facility] (subarachnoid hemorrhage) 07/27/2023 Assessment & Plan (07/29/2023 7:30 AM SPACE OPERATIONS OFFICER): - Neurosurgery consulted - Repeat head [...] 07/27/2023 Assessment & Plan (07/27/2023 2:21 PM SPACE OPERATIONS OFFICER): - PRS consulted - s/p repair with 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 - Bacitracin TID x 3 days, then vaseline - HOB elevation - Pending recovery or discharge, please call [phone] or [phone] to schedule follow-up within 1-2 weeks to be seen by an BURT Left knee pain 07/27/2023 Assessment & Plan (07/28/2023 12:59 PM SPACE OPERATIONS OFFICER): - XR left knee: negative for acute fracture Polycythemia 07/27/2023 Assessment & Plan (07/28/2023 12:59 PM SPACE OPERATIONS OFFICER): #coagulopathy - last PE in per [...] 07/27/2023 Assessment & Plan (07/27/2023 2:50 PM SPACE OPERATIONS OFFICER): - continue home levothyroxine Elevated red blood cell count 07/21/2023 Closed fracture of left distal fibula 03/11/2019 Overview (03/11/2019): Added automatically from request for surgery [id number] Acute pain due to trauma 03/11/2019 Type 2 diabetes mellitus, wi th long-term current use of insulin 03/11/2019 Assessment & Plan (07/28/2023 1:07 PM SPACE OPERATIONS OFFICER): #benign pancreatic tumor - s/p distal [...] 02/08/2019 Assessment & Plan (08/06/2021 12:23 PM SPACE OPERATIONS OFFICER): Cholesterol <200 mg/dL 142 137 R, [...] continue Assessment & Plan (08/15/2020 12:58 PM SPACE OPERATIONS OFFICER): He is on lipitor 20 mg= TC 151/HDL 41/ TG 105/ LDL 89 He has been averaging in the 80 range the past 3 years so am going to the 40 mg dosing to get it down below 70 as he has no sx on the 20 Assessment & Plan (08/17/2019 12:02 PM SPACE OPERATIONS OFFICER): TC 137/LDL 79 on lipitor 20 mg and at goal Assessment & Plan (02/08/2019 1:08 PM CDT): His LDL is at goal Presence of IVC filter 09/28/2018 Bruising 03/19/2017 Chronic anemia 03/19/2017 Edema 03/19/2017 Pulmonary embolism without acute cor pulmonale 0 02/10/2017 Assessment & Plan (07/28/2023 11:41 AM SPACE OPERATIONS OFFICER): - Hold warfarin - s/p IVC filter Assessment & Plan (07/21/2017 12:18 PM SPACE OPERATIONS OFFICER): Unfortunately, he needs anticoagulation. A recent [...] 01/20/2017 Assessment & Plan (08/17/2019 12:05 PM SPACE OPERATIONS OFFICER): 1. 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 Global left [...] 01/20/2017 Assessment & Plan (07/27/2023 2:41 PM SPACE OPERATIONS OFFICER): See Pulmonary Embolism Assessment & Plan [...] elective Lexiscan nuclear stress test over at [facility] which is convenient. If this is negative and since pulmonary is no from there mechanism. It may be worthwhile to consider some type of an alternate exercise program such as swimming, i.e. water aerobic Pure hypercholesterolemia 01/20/2017 Assessment & Plan (07/27/2023 2:42 PM SPACE OPERATIONS OFFICER): - Continue home Lipitor Assessment & Plan (02/08/2019 1:06 PM CDT): SCRIBED Cholesterol, Total l - h 151 SCRIBED HDL l - h 45 SCRIBED LDL l - h 87 SCRIBED Triglycerides l - h 95 His LDL is at goal on lipitor 20 mg a day Assessment & Plan (08/11/2018 10:31 AM SPACE OPERATIONS OFFICER): Lipid profile today=TC 170/ HDL 55/ [...] lipitor Assessment & Plan (07/21/2017 12:22 PM SPACE OPERATIONS OFFICER): Todays lipid profile= TC 151/ HDL [...] 01/02 Assessment & Plan (07/27/2023 2:47 PM SPACE OPERATIONS OFFICER): - BMI 44.94 kg/m2 on admission Assessment & Plan (02/08/2019 2:11 PM CDT): He continues to work with diet and exercise Assessment & Plan (08/11/2018 10:35 AM SPACE OPERATIONS OFFICER): He continues to work with calorie restriction and ambulation Assessment & Plan (01/27/2018 11:21 AM CDT): He works with diet, exercise limited as he walks with a cane Assessment & Plan (07/21/2017 12:31 PM SPACE OPERATIONS OFFICER): He continues to work with diet Assessment & Plan (02/10/2017 1:56 PM CDT): Need for wt loss discussed. Recs: 1) continue diet and lifestyle modifications. Metastatic neoplasm 07/18/2016 Benign paroxysmal positional vertigo 09/20/2015 Pulmonary embolism 08/09/2015 Paroxysmal atrial fibrillation 08/09/2015 Assessment & Plan (07/27/2023 2:57 PM SPACE OPERATIONS OFFICER): - Continue home flecainide - Continue home metoprolol - suppressed on warfarin, flecainide; follows with cardiology outpatient - last TTE in 2019 w/ LVEF 55% and no obvious structural issues Assessment & Plan (08/06/2021 12:26 PM SPACE OPERATIONS OFFICER): He has had no recurrences since last year; echo normal, So I made no changes He is protected with Warfarin, on tambocor and metoprolol which I would continue Assessment & Plan (08/15/2020 12:39 PM SPACE OPERATIONS OFFICER): He has had recurrent episodes of [...] 07/12/2015 Assessment & Plan (07/28/2023 11:47 AM SPACE OPERATIONS OFFICER): - 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 since then per ID - doxycycline reordered Arthritis 12/17/2009 Hypertension 12/17/2009 Assessment & Plan (08/06/2021 12:26 PM SPACE OPERATIONS OFFICER): His BP remains at goal on the BB, so will continue Assessment & Plan (08/15/2020 12:34 PM SPACE OPERATIONS OFFICER): His blood pressure is at goal Assessment & Plan (08/17/2019 12:00 PM SPACE OPERATIONS OFFICER): His BP remains at goal Assessment & Plan (02/08/2019 1:05 PM CDT): His BP remains at goal Assessment & Plan (08/11/2018 10:26 AM SPACE OPERATIONS OFFICER): His BP is at goal Current Treatment and Therapy Plans No current plan information found. Past Treatment and Therapy Plans No past plan information found. Lifetime Dose Tracking * Chemical Lifetime Dose Automatic Entry Manual Entr y DLP 1,419 mGycm 1,419 mGycm 0 mGycm
--- OUTSIDE RECORDS SUMMARY | 2025-03-01 15:54 | XMS_ITS | Referral Summary ---
Author Organization [facility] Address [address] [place] [address] Care Team Providers Care Nailing Machine Feeder Name Role Phone Liset Haynes MD Primary Care Provider [phone] Encounters Date Type Department Care Team Description 02/27/[address] [facility] Cardiology [address] [place] [address] Curtis Hughes MD from Last 3 Months Allergies Active Allergy [...] tablet (50 mcg total) by mouth daily 01/06/202 0 Active albuterol HFA (PROVENTIL HFA,VENTOLIN HFA,PROAIR [...] Pen Needle 32 gauge x 32 needle DIRECTED FOUR TIMES DAILY WITH INSULIN [...] 07/28/2023 Assessment & Plan (07/28/2023 1:21 PM SPECIAL EDUCATION CLASSROOM AIDE): 07/28 medications reviewed and updated through [facility] (subarachnoid hemorrhage) 07/27/2023 Assessment & Plan (07/29/2023 7:30 AM SPECIAL EDUCATION CLASSROOM AIDE): - Neurosurgery consulted - Repeat head CT [...] 07/27/2023 Assessment & Plan (07/27/2023 2:21 PM SPECIAL EDUCATION CLASSROOM AIDE): - PRS consulted - s/p repair with 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 - Bacitracin TID x 3 days, then vaseline - HOB elevation - Pending recovery or discharge, please call [phone] or [phone] to schedule follow-up within 1-2 weeks to be seen by an BURT Left knee pain 07/27/2023 Assessment & Plan (07/28/2023 12:59 PM SPECIAL EDUCATION CLASSROOM AIDE): - XR left knee: negative for acute fracture Polycythemia 07/27/2023 Assessment & Plan (07/28/2023 12:59 PM SPECIAL EDUCATION CLASSROOM AIDE): #coagulopathy - last PE in per chart [...] 07/27/2023 Assessment & Plan (07/27/2023 2:50 PM SPECIAL EDUCATION CLASSROOM AIDE): - continue home levothyroxine Elevated red blood cell count 07/21/2023 Closed fracture of left distal fibula 03/11/2019 Overview (03/11/2019): Added automatically from request for surgery [id number] Acute pain due to trauma 03/11/2019 Type 2 diabetes mellitus, wi th long-term current use of insulin 03/11/2019 Assessment & Plan (07/28/2023 1:07 PM SPECIAL EDUCATION CLASSROOM AIDE): #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, [...] 02/08/2019 Assessment & Plan (08/06/2021 12:23 PM SPECIAL EDUCATION CLASSROOM AIDE): Cholesterol <200 mg/dL 142 137 R, CM 116 Low R 118 R, CM HDL > OR = 40 mg/dL 46 41 R, CM 34 Low R 27 Low R, CM Triglycerides <150 mg/dL 84 83 R, CM 80 R 117 R, CM LDL mg/dL (calc) 80 He remains at goal on lipitor 40 mg so will continue Assessment & Plan (08/15/2020 12:58 PM SPECIAL EDUCATION CLASSROOM AIDE): He is on lipitor 20 mg= TC 151/HDL 41/ TG 105/ LDL 89 He has been averaging in the 80 range the past 3 years so am going to the 40 mg dosing to get it down below 70 as he has no sx on the 20 Assessment & Plan (08/17/2019 12:02 PM SPECIAL EDUCATION CLASSROOM AIDE): TC 137/LDL 79 on lipitor 20 mg and at goal Assessment & Plan (02/08/2019 1:08 PM CDT): His LDL is at goal Presence of IVC filter 09/28/2018 Bruising 03/19/2017 Chronic anemia 03/19/2017 Edema 03/19/2017 Pulmonary embolism without acute cor pulmonale 0 02/10/2017 Assessment & Plan (07/28/2023 11:41 AM SPECIAL EDUCATION CLASSROOM AIDE): - Hold warfarin - s/p IVC filter Assessment & Plan (07/21/2017 12:18 PM SPECIAL EDUCATION CLASSROOM AIDE): Unfortunately, he needs anticoagulation. A recent venous [...] 01/20/2017 Assessment & Plan (08/17/2019 12:05 PM SPECIAL EDUCATION CLASSROOM AIDE): 1. 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 Global left ventricular [...] 01/20/2017 Assessment & Plan (07/27/2023 2:41 PM SPECIAL EDUCATION CLASSROOM AIDE): See Pulmonary Embolism Assessment & Plan (01/20/2017 [...] elective Lexiscan nuclear stress test over at [facility] which is convenient. If this is negative and since pulmonary is no from there mechanism. It may be worthwhile to consider some type of an alternate exercise program such as swimming, i.e. water aerobic Pure hypercholesterolemia 01/20/2017 Assessment & Plan (07/27/2023 2:42 PM SPECIAL EDUCATION CLASSROOM AIDE): - Continue home Lipitor Assessment & Plan (02/08/2019 1:06 PM CDT): SCRIBED Cholesterol, Total l - h 151 SCRIBED HDL l - h 45 SCRIBED LDL l - h 87 SCRIBED Triglycerides l - h 95 His LDL is at goal on lipitor 20 mg a day Assessment & Plan (08/11/2018 10:31 AM SPECIAL EDUCATION CLASSROOM AIDE): Lipid profile today=TC 170/ HDL 55/ TG [...] lipitor Assessment & Plan (07/21/2017 12:22 PM SPECIAL EDUCATION CLASSROOM AIDE): Todays lipid profile= TC 151/ HDL 45/ [...] 01/02 Assessment & Plan (07/27/2023 2:47 PM SPECIAL EDUCATION CLASSROOM AIDE): - BMI 44.94 kg/m2 on admission Assessment & Plan (02/08/2019 2:11 PM CDT): He continues to work with diet and exercise Assessment & Plan (08/11/2018 10:35 AM SPECIAL EDUCATION CLASSROOM AIDE): He continues to work with calorie restriction and ambulation Assessment & Plan (01/27/2018 11:21 AM CDT): He works with diet, exercise limited as he walks with a cane Assessment & Plan (07/21/2017 12:31 PM SPECIAL EDUCATION CLASSROOM AIDE): He continues to work with diet Assessment & Plan (02/10/2017 1:56 PM CDT): Need for wt loss discussed. Recs: 1) continue diet and lifestyle modifications. Metastatic neoplasm 07/18/2016 Benign paroxysmal positional vertigo 09/20/2015 Pulmonary embolism 08/09/2015 Paroxysmal atrial fibrillation 08/09/2015 Assessment & Plan (07/27/2023 2:57 PM SPECIAL EDUCATION CLASSROOM AIDE): - Continue home flecainide - Continue home metoprolol - suppressed on warfarin, flecainide; follows with cardiology outpatient - last TTE in 2018 w/ LVEF 55% and no obvious structural issues Assessment & Plan (08/06/2021 12:26 PM SPECIAL EDUCATION CLASSROOM AIDE): He has had no recurrences since last year; echo normal, So I made no changes He is protected with Warfarin, on tambocor and metoprolol which I would continue Assessment & Plan (08/15/2020 12:39 PM SPECIAL EDUCATION CLASSROOM AIDE): He has had recurrent episodes of atrial [...] 07/12/2015 Assessment & Plan (07/28/2023 11:47 AM SPECIAL EDUCATION CLASSROOM AIDE): - 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 - has been on chronic suppressive doxycycline since then per ID - doxycycline reordered Arthritis 12/17/2009 Hypertension 12/17/2009 Assessment & Plan (08/06/2021 12:26 PM SPECIAL EDUCATION CLASSROOM AIDE): His BP remains at goal on the BB, so will continue Assessment & Plan (08/15/2020 12:34 PM SPECIAL EDUCATION CLASSROOM AIDE): His blood pressure is at goal Assessment & Plan (08/17/2019 12:00 PM SPECIAL EDUCATION CLASSROOM AIDE): His BP remains at goal Assessment & Plan (02/08/2019 1:05 PM CDT): His BP remains at goal Assessment & Plan (08/11/2018 10:26 AM SPECIAL EDUCATION CLASSROOM AIDE): His BP is at goal Immunizations Immunization [...] file Legal Sex Male 3:18 AM SPECIAL EDUCATION CLASSROOM AIDE Gender Identity Not on file Sexual Orientation Not on file Last Filed Vital Signs Vital Sign Reading Time Taken Comments Blood Pressure 108/70 10/07/2024 2:53 PM SPECIAL EDUCATION CLASSROOM AIDE Pulse 62 10/07/2024 2:53 PM SPECIAL EDUCATION CLASSROOM AIDE Temperature 36.3 C (97.3 F) 09/07/2024 7:18 AM SPECIAL EDUCATION CLASSROOM AIDE Respiratory Rate 18 09/07/2024 8:20 AM SPECIAL EDUCATION CLASSROOM AIDE Oxygen Saturation 94% 10/07/2024 2:53 PM SPECIAL EDUCATION CLASSROOM AIDE Inhaled Oxygen Concentration - - Weight 155.6 kg (343 lb) 10/07/2024 2:53 PM SPECIAL EDUCATION CLASSROOM AIDE Height 188 cm (6' 2) 10/07/2024 2:53 PM SPECIAL EDUCATION CLASSROOM AIDE Body Mass Index 44.04 10/07/2024 2:53 PM SPECIAL EDUCATION CLASSROOM AIDE Plan of Treatment Not on file Procedures Procedure Name Priority Date/Time Associated Diagnosis Comments CARDIOLOGY DOCUMENT SCAN Routine 02/26/2025 3:40 PM CDT CARDIOLOGY DOCUMENT SCAN Routine 02/25/2025 3:26 PM CDT EGFR STAT 07/27/2023 8:57 AM SPECIAL EDUCATION CLASSROOM AIDE LIPID PANEL Routine 11/13/2020 8:46 AM CDT [...] inal Result * eGFR (07/27/2023 8:57 AM SPECIAL EDUCATION CLASSROOM AIDE) eGFR 60 >=60 mL/min/1. 73 m2 [facility] Comment: Interpretive Data Reference Interval Normal >/= [...] last reviewed 2021. Blood 07/27/2023 8:57 AM SPECIAL EDUCATION CLASSROOM AIDE 07/27/2023 9:13 AM SPECIAL EDUCATION CLASSROOM AIDE us Carlota Blum MD LAB BLOOD ORDERABLES F inal Result [facility] Department [place] [address] * Lipid panel (11/13/2020 8:46 AM CDT) [...] LDL-C. Norberto BEDOLLA et al. TEGAN. 2013;310(19): 1786-6127 (http://education.[employer].Laboratoires Nutrition & Cardiometabolisme/faq/WYN216) Chol/HDL ratio 3.1 <5.0 (calc) [facility] [...] BLOOD ORDERABLES Final Result Performing Organization Address City/[facility] Co de Phone Number [facility] [address] [place] [address] * (ABNORMAL) Hemoglobin A1c (03/11/2019 12:48 PM CDT) Hgb A1C 7.5(H) 4.0 - 5.6 % [facility] Estimated Average Glucose 169 mg/dL [facility] Comment: The ADA recommends reporting an estimated Average Glucose (eAG) with all Hemoglobin A1c results using the equation derived from a study of 507 normal and diabetic adults. Minority populations were underrepresented and children were not included. (Diabetes Care 31:3198-1266, 2008). The eAG is not equivalent to a fasting glucose. Blood specimen (specimen) 03/11/2019 12:48 PM CDT 03/11/2019 12:59 PM CDT Alvaro Ortez DO LAB BLOOD ORDERABLES Fi nal Result Performing Organization Address City/[facility] Co de Phone Number [facility] Department [place] [address] from Last 3 Months or Most Recently Relevant to Health Maintenance Insurance [facility] MEDICARE ADVANTAGE [employer] MEDICARE AETNA MEDICARE AETNA MEDICARE MEDICARE ADVANTAGE [facility] MEDICARE ADVANTAGE Advance Directives For more information, please contact: [phone] * Full Code (Latest Code Status on File) Date Activated Date Inactivated Comments 09/07/2024 7:02 AM 09/07/2024 1:03 PM * Full Code Date Activated Date Inactivated Comments 01/22/2024 12:34 PM 01/22/2024 7:05 PM * Full Code Date Activated Date Inactivated Comments 07/27/2023 11:35 AM 07/29/2023 6:04 PM * Full Code Date Activated Date Inactivated Comments 03/11/2019 9:03 PM 03/16/2019 8:04 PM Care Teams Nailing Machine Feeder Relationship Specialty Start Date End Date Liset Haynes MD PCP - General Family Medicine 08/05/22
--- NOTE | 2025-03-01 16:00 | ADMGEN ---
This patient, Neal Amaro, was admitted to 2nd Floor Room 209-1. Patient/family oriented to hospital policies and general routines including ID bracelet, bed and alarms, visiting hours, pain management, procedures, bathroom and other care routines, personal items, smoking policy, room service/diet, and visiting hours. Information on how to activate the Rapid Response Team has been discussed. Patient/Family are encouraged to report perceived risks to care and to ask questions if they do not understand what they are told or what they should do.
[2025-03-01 16:10] VITALS: BMI 47.8
[2025-03-01 17:06] VITALS: PULSE 74; RESP 20; O2SAT 98
[2025-03-01] MEDS: WARFARIN (*PBKC) 2 MG TABLET 6 MG PO (17:58)
[2025-03-01 20:29] VITALS: PULSE 76
[2025-03-01] MEDS: DOCUSATE SODIUM 100 MG CAPSULE PO (20:29)
[2025-03-01] MEDS: FLECAINIDE ACETATE 50 MG TABLET PO (20:29)
[2025-03-01] MEDS: AZELASTINE HCL NASAL 0.1% 137 MCG/SPR 30 ML BTL 2 SPRAY NASAL (20:29)
[2025-03-01] MEDS: INSULIN GLARGINE (*BKC) 1,000 UNITS/10 ML VIAL 36 UNITS SUB-Q (20:32)
[2025-03-01 20:56] VITALS: PULSE 76
[2025-03-01] MEDS: METOPROLOL TARTRATE 12.5 MG TABLET PO (20:56)
[2025-03-01 23:48] VITALS: BP 114/66; PULSE 74; RESP 18; TEMP 36.5; O2SAT 97
[2025-03-02] VITALS (11 sets, daily range): BP systolic 119–123; BP diastolic 63–73; PULSE 56–88; RESP 15–17; TEMP 36.1; O2SAT 94–97
--- NOTE | 2025-03-02 02:11 | PC.NURSE ---
Pt called out for staff after using the urinal. Pt c/o burning pain on his penis and foreskin. Area is reddened, and appears to have fungal growth. Nery-care provided to pt's groin and dried. The pt's foreskin appears to have smaller-sized lesions, and/or tears once being rolled back and is painful to touch. Pt believes this may be from the [place] catheters being used at previous facility. Pt's scrotum is also red and inflamed showing signs of a fungal infection, but is not tender to touch. Area open to air to allow the area to reduce moisture. food products tester Clara Youssef notified of findings. Pt has call light w/in reach and communicated to staff he may need assistance w/using the urinal. Bed in lowest position and side railsx3 for pt safety.
[2025-03-02] MEDS: HYDROcodone/acetaminophen (*CRX) 5-325 MG TABLET 1 TAB PO (03:13)
[2025-03-02 05:23] LABS: Hematocrit 49.3 % (37.0-46.0); Hemoglobin 15.6 g/dL (12.4-15.3); Mean Corpuscular HGB Conc 31.6 g/dL (32-36); Mean Corpuscular Hemoglobin 27.0 pg (27.0-31.0); Mean Corpuscular Volume 85.4 fL (78.0-102.0); Platelet Count Result 269 K/mm3 (150-420); Red Blood Count 5.77 M/mm3 (4.70-6.10); White Blood Count 5.0 K/mm3 (4.8-10.8)
[2025-03-02 05:35] LABS: Alanine Aminotransferase 23 U/L (6-50); Albumin Level 3.2 g/dL (3.5-5.1); Alkaline Phosphatase 95 U/L (38-126); Anion Gap 0 mmol/L (4-12); Aspartate Amino Transferase 29 U/L (17-59); Bilirubin,Total 0.5 mg/dL (0.2-1.3); Blood Urea Nitrogen 15 mg/dL (9-20); Calcium 8.2 mg/dL (8.4-10.2); Carbon Dioxide 33 mmol/L (22-30); Chloride 109 mmol/L (98-107); Estimated CRCL calculation 74 ml/min; Estimated Glomerular Filt Rate > 60; Glucose 101 mg/dL (65-110); INR 3.8; Magnesium 2.0 mg/dL (1.6-2.3); Osmolality Calculated 294 mOsm/kg (285-295); Potassium 3.7 mmol/L (3.4-5.0); Prothrombin Time 36.8 Seconds (9.50-12.1); Sodium 142 mmol/L (137-145); Total Protein 6.0 g/dL (6.3-8.2)
[2025-03-02] MEDS: LEVOTHYROXINE SODIUM 50 MCG TABLET PO (06:28)
--- NOTE | 2025-03-02 08:51 | P.HP_ITS ---
H&P: HPI History of Present Illness Date/Time: 03/02/25 08:51 Chief Complaint: Fall/unsteady gait/weakness/REHAB Swing bed Narrative: Patient is a 84-year-old male past medical history of COPD, diabetes, history of PE, BPH, blind Who was admitted to [facility] from [facility] due to recent fall at home with unsteady gait and weakness. Patient was initially admitted at [facility] for treatment of pneumonia, UTI, and RODRIGUEZ. Patient had recently been treated a few weeks prior for pneumonia and hospitalized then transferred to [facility] physical and occupational therapy rehab prior to returning home Patient. Patient returned to [facility] a week later reported he continued to have progressive weakness after returning home with shortness of breath. patient was then admitted to [facility] again and treated for lower lobe pneumonia CHF, and acute kidney injury. patient was hemodynamically stable for discharge and was discharged to [facility]. Patient on assessment in no acute distress and no complaints except mild to moderate pain while working with physical therapy and pain to groin area from previous condom catheter that had been leaking causing excoriation. Patient denied CP, SOB, N/V, dizziness. Review of Systems Review of Systems: 12 systems were reviewed and are negativ e except for as per HPI. All systems reviewed & are unremarkable except as noted in HPI and below PMFSH Past Medical History Medical History Trochanteric bursitis, right hip Arthritis of elbow, left, degenerative Arthritis of right shoulder region Right shoulder strain Right arm pain Olecranon bursitis of right elbow Atrial fibrillation Rupture of left Achilles tendon Left ankle pain Constipation High cholesterol SOB (shortness of breath) Vision changes COPD (chronic obstructive pulmonary disease) Osteomyelitis, chronic BPH (benign prostatic hyperplasia) History of hemorrhoids History of pulmonary embolism History of deep vein thrombosis (DVT) of lower extremity Acute exacerbation of chronic obstructive airways disease Pneumonia due to COVID-19 virus Hypothyroidism determined by thyroid function test Weakness of both lower extremities Diabetes mellitus with neuropathy Ankle syndesmosis disruption Ankle fracture, bimalleolar, closed Infection of spine Chronic antibiotic suppression Chronic anticoagulation Recurrent deep vein thrombosis (DVT) Hypertension Spleen absent Rotator cuff arthropathy of right shoulder Surgical History Surgical History Total knee replacement status H/O bilateral cataract extraction H/O splenectomy S/P rotator cuff repair H/O colonoscopy with polypectomy History of pancreatic surgery Removal of pancreatic mass ([facility]) History of embolic filter insertion Hx of hernia repair History of back surgery x2 ([facility]), x1 ([facility]) H/O total knee replacement Bilaterally Family History Family History Grandparent Diabetes mellitus Father Family history of cardiovascular disease Intracranial aneurysm Mother Dvt femoral (deep venous thrombosis) Sibling Throat cancer Sister Acute myocardial infarction Brother Social History Social History Social History: The patient is and remarried; he lives with his . Patient was smoking up to 3 packs of cigarettes a day. He is retired from [employer]. He drinks occasionally denies any illicit drugs. He is listed as a DNR. He nominates His to be the individual who would make medical decisions for him if he is unable. Smoking packs per day: 3 Smoking cigarettes per day: 60.0 Years smoked: 20 Smoking pack-years: 60.00 Smoking status: Former smoker Tobacco type: cigarettes Second hand tobacco smoke exposure: No Smoking end date: 04/13/80 Alcohol intake: never Drinks per week: 1 Substance use: never Substance use type: does not use Do You Feel Safe in your Home?: Yes Lack of Transportation: No Lack of Food: Never True Current Housing: I Have Housing Concerned About Future Housing: No Difficulty Paying Gas/Electric Bills: No Difficulty Paying for Meds: No Currently Unemployed: No Education: Trade/Vocational Certificate Difficulty w/ Childcare or Family Care: No Living arrangements: with family Occupation/Education: retired Gender identity (if verbalized by the patient): Male Additional gender identity comments: Lives with Sexual Orientation (if Verbalized by the Patient): Straight or Heterosexual Spiritual care concerns: No Agree to blood products: Yes Meds Home Medications and Allergies Home Medications ?Medication ?Instructions ?Recorded ?Confirmed ?Type flecainide 50 mg tablet 50 mg PO Q12H 06/21/19 03/01/25 History docusate sodium 50 mg capsule 50 mg PO BID 06/14/20 03/01/25 History loratadine 10 mg capsule 10 mg PO DAILY 06/14/20 03/01/25 History lactobacillus combination no.9 4 4,000 mmu cells PO DAILY 11/07/21 03/01/25 History billion cell capsule (Adult 50 Plus Probiotic) pen needle, diabetic 32 gauge x #100 ea 04/22/22 03/01/25 Rx 1/6 (NovoFine Plus) wheeled walker XL #1 ea 03/19/23 03/01/25 Rx blood sugar diagnostic (OneTouch #100 strips 05/19/23 03/01/25 Rx Ultra Test strips) acetaminophen 650 mg 650 mg PO Q12H PRN pain 1-4 10/12/23 03/01/25 History tablet,extended release (Tylenol Arthritis Pain) warfarin 6 mg tablet 6 mg PO DAILY #30 tabs 12/09/23 03/01/25 Rx lancets 33 gauge (OneTouch Delica #300 ea 03/07/24 03/01/25 Rx Plus Lancet) alpha lipoic acid 200 mg capsule 200 mg PO DAILY 04/13/24 03/01/25 History cholecalciferol (vitamin D3) 50 50 mcg PO DAILY 04/13/24 03/01/25 History mcg (2,000 unit) capsule compression stockings knee high #1 ea 05/04/24 03/01/25 Rx 15-20mmHG blood-glucose sensor (FreeStyle #2 ea 05/27/24 03/01/25 Rx Santiago 3 Plus Sensor device) diabetic shoes #1 ea 05/27/24 03/01/25 Rx knee high medium compression #1 ea 05/27/24 03/01/25 Rx stockings lidocaine 4 % topical patch 1 patch topical DAILY PRN pain #30 05/27/24 03/01/25 Rx (Salonpas (lidocaine)) ea wheeled walker #1 ea 06/06/24 03/01/25 Rx blood-glucose,store receiver,cont #2 ea 07/03/24 03/01/25 Rx (FreeStyle [place] 3 [place]) furosemide 20 mg tablet See Rx Instructions .Route 07/11/24 03/01/25 Rx .COMPLEX #90 tabs metoprolol tartrate 25 mg tablet 12.5 mg (1/2 x 25 mg) PO BID #90 12/27/24 07/30/25 Rx tabs tamsulosin 0.4 mg capsule 0.8 mg (2 x 0.4 mg) PO DAILY #180 08/14/24 03/01/25 Rx caps pregabalin 150 mg capsule 150 mg PO TID #270 caps 08/24/24 03/01/25 Rx fluticasone fur. 200 mcg-umeclid 1 inh inhalation DAILY #60 ea 09/18/24 03/01/25 Rx 62.5 mcg-vilant 25 mcg inhalat.powder (Trelegy Ellipta) atorvastatin 20 mg tablet 20 mg PO DAILY #90 tabs 09/22/24 03/01/25 Rx levothyroxine 50 mcg tablet 50 mcg PO DAILY #90 tabs 09/22/24 03/01/25 Rx triamcinolone acetonide 0.1 % 1 applic topical BID #80 grams 10/03/24 03/01/25 Rx topical cream insulin aspart See Rx Instructions subcut 10/04/24 03/01/25 Rx (niacinamide)(U-100) 100 unit/mL(3 .COMPLEX #15 mL mL) subcutaneous pen (Fiasp FlexTouch U-100 Insulin) baclofen 10 mg tablet 10 mg PO TID #270 tabs 12/22/24 03/01/25 Rx omeprazole 20 mg capsule,delayed 20 mg PO DAILY #90 caps 12/22/24 03/01/25 Rx release pen needle, diabetic 32 gauge x #100 ea 01/06/25 03/01/25 Rx 5/32 skin seismology technical officer adhesive bandage for #8 ea 01/06/25 03/01/25 Rx Freestyle Santiago empagliflozin 25 mg tablet 25 mg PO DAILY #30 tabs 02/16/25 03/01/25 Rx (Jardiance) azelastine 137 mcg (0.1 %) nasal 137 mcg (0.137 mL) intranasal Q12H 02/22/25 03/01/25 Rx spray #30 mL diclofenac sodium 1 % topical gel 4 g topical QID PRN joint pain 02/24/25 03/01/25 History hydrocodone 5 mg-acetaminophen 325 1 tablet PO Q8H PRN Moderate Pain 03/01/25 03/01/25 Rx mg tablet (4-6) #20 tabs insulin glargine 100 unit/mL 36 unit (0.36 mL) subcut HS #10 mL 03/01/25 03/01/25 Rx subcutaneous solution (Lantus U-100 Insulin) Allergies Allergy/AdvReac Type Severity Reaction Status Date / Time No Known Drug Allergies Allergy Unknown Unknown Verified 02/02/25 19:47 Vital Signs Vital Signs - 24 hr 03/01/25 17:06 03/01/25 20:29 03/01/25 20:56 Temperature Pulse Rate 74 76 76 Respiratory Rate 20 Blood Pressure Pulse Oximetry 98 Oxygen Delivery Room Air 03/01/25 23:48 Temperature 97.7 F Pulse Rate 74 Respiratory Rate 18 Blood Pressure 114/66 Pulse Oximetry 97 Oxygen Delivery Room Air Exam Narrative: General: well appearing, appears stated age, HEENT: normocephalic, atraumatic. Mucous membranes moist. Respiratory: clear to auscultation bilaterally diminished throughout Cardiovascular: Regular rate and rhythm, normal S1-S2 upon ascultation. No murmurs, rubs, or clicks. PMI is nondisplaced, capillary refill less than 3 second. Abdomen: Obese Soft, round, nondistended and nontender. Bowel sounds present to all four quadrants. Umbical hernia : excoriation noted to testicles and inner thighs Extremities: 1+ lower extremity edema Neuro: Alert and orientated x 4. PERRLA. Cranial nerves 2-12 intact without focal deficit. Skin: Warm, dry, and intact, without rash, deep tissue bruising Psych: Normal effect, cooperative H&P: Results Labs Labs: Short CBC 03/02/25 Range/Units 05:09 WBC 5.0 (4.8-10.8) K/mm3 Hgb 15.6 H (12.4-15.3) g/dL Hct 49.3 H (37.0-46.0) % Plt Count 269 (150-420) K/mm3 [facility] 03/02/25 05:09 Sodium 142 Potassium 3.7 Chloride 109 H Carbon Dioxide 33 H BUN 15 Creatinine 1.04 Glucose 101 Calcium 8.2 L Liver Function 03/02/25 Range/Units 05:09 Total Bilirubin 0.5 (0.2-1.3) mg/dL AST 29 (17-59) U/L ALT 23 (6-50) U/L Alkaline Phosphatase 95 (38-126) U/L Albumin 3.2 L (3.5-5.1) g/dL Assessment and Plan Assessment and plan (1) Weakness: Code(s): R53.1 - Weakness Status: Acute Assessment and Plan: patient had been hospitalized and [facility] and admitted due to pneumonia, CHF, RODRIGUEZ, and generalized weakness. Transferred to [facility] for Rehab * PT/OT * Pain management with norco * continue bowel regiment (2) COPD (chronic obstructive pulmonary disease): Qualifiers: COPD type: unspecified COPD Qualified Code(s): J44.9 - Chronic obstructive pulmonary disease, unspecified Code(s): J44.9 - Chronic obstructive pulmonary disease, unspecified Status: Acute Assessment and Plan: * Lucille lacy6 * guaifenesin b.i.d. * incentive spirometer * oxygen p.r.n. (3) Pneumonia: Code(s): J18.9 - Pneumonia, unspecified organism Status: Resolved Assessment and Plan: * completed ABX therapy * continue using incentive spirometer * added Lucille * guaifenesin b.i.d. (4) Chronic deep vein thrombosis (DVT): Code(s): I82.509 - Chronic embolism and thrombosis of unspecified deep veins of unspecified lower extremity Status: Acute Assessment and Plan: patient on Coumadin for chronic DVT was previously on eliquis but reports had a GI bleed and was taken off * INR 3.8 * current Coumadin dose 6 mg daily hold x 1 day * Daily PTT INR (5) Diabetes mellitus with neuropathy: Qualifiers: Diabetes mellitus type: type 2 Diabetes mellitus intermediate manager insulin use: with half-way use Qualified Code(s): E11.40 - Type 2 diabetes mellitus with diabetic neuropathy, unspecified; Z79.4 - director long term care (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 Code(s): E11.40 - Type 2 diabetes mellitus with diabetic neuropathy, unspecified Status: Acute Assessment and Plan: patient with chronic history of diabetes but does report he has having episodes of hypoglycemia his long-acting insulin was reduced at [facility] to 32 units from 44 * will resume Lantus at 32 and adjust as needed * high dose SSI * Accu-Cheks a.c. HS * diabetic diet * hypoglycemic protocol (6) Hypertension: Qualifiers: Hypertension type: essential hypertension Qualified Code(s): I10 - Essential (primary) hypertension Code(s): I10 - Essential (primary) hypertension Status: Chronic Assessment and Plan: * BP reviewed and stable * continued patient's metoprolol (7) Hyperlipidemia: Qualifiers: Hyperlipidemia type: mixed hyperlipidemia Qualified Code(s): E78.2 - Mixed hyperlipidemia Code(s): E78.5 - Hyperlipidemia, unspecified Status: Acute Assessment and Plan: * Continue home statin (8) Atrial fibrillation: Code(s): I48.91 - Unspecified atrial fibrillation Status: Acute Assessment and Plan: * continued patient's Coumadin and metoprolol (9) Excoriation of groin: Code(s): S30.811A - Abrasion of abdominal wall, initial encounter Status: Acute Assessment and Plan: Noted excoriation to groin area * InterDry to skin folds * Tolnaftate powder * keep area clean and dry Plan Code status: DNR/DNI Meds only DVT prophylaxis: Coumadin Stress ulcer prophylaxis: Protonix 40 daily PT/OT notes: Swing Bed Disposition: Patient admitted to [facility] for continued rehab for deconditioned state after hospitalization for f pneumonia with generalized weakness plan is to return home at discharge. Quality VTE Prophylaxis VTE prophylaxis: pharmacologic ordered -Patient's previous records reviewed on admission -ER notes reviewed in detail on admission -discussed all findings and current treatment plan with patient/Family/POA -Consultations reviewed for recommendations -Patient's disposition for safe discharge discussed with case operator Dictation performed by [employer] direct speech recognition software, therefore tool checker variants and typographical errors may occur. Hospitalist MIPS Advance Care Plan I have confirmed that the patient's Advanced Care Plan is present, code status is documented, or surrogate decision maker is listed in patient medical record.: Yes Medication Reconciliation I have utilized all available resources to obtain, update and review the patients current medications (includes all prescriptions, OTC, herbals, cannabis, and nutritional supplements).: Yes The patient is not eligible for med reconciliation; the patient is in a emergent medical situation where delaying treatment would jeopardize the patients health.: No
[2025-03-02] MEDS: METOPROLOL TARTRATE 12.5 MG TABLET PO ×2 (09:56→20:28)
[2025-03-02] MEDS: DOCUSATE SODIUM 100 MG CAPSULE PO ×2 (09:57→20:28)
[2025-03-02] MEDS: BACLOFEN 10 MG TABLET PO ×3 (09:57→17:49)
[2025-03-02] MEDS: LORATADINE 10 MG TABLET PO (09:57)
[2025-03-02] MEDS: PANTOPRAZOLE 40 MG TABLET PO (09:57)
[2025-03-02] MEDS: TAMSULOSIN HCL 0.4 MG CAPSULE 0.8 MG PO (09:57)
[2025-03-02] MEDS: ATORVASTATIN 10 MG TABLET 20 MG PO (09:57)
[2025-03-02] MEDS: FLECAINIDE ACETATE 50 MG TABLET PO ×2 (09:57→20:29)
[2025-03-02] MEDS: PREGABALIN (*CRX) 50 MG CAPSULE 150 MG PO ×3 (09:57→17:49)
[2025-03-02] MEDS: EMPAGLIFLOZIN 25 MG TABLET PO (09:57)
[2025-03-02] MEDS: FUROSEMIDE 20 MG TABLET PO (09:57)
[2025-03-02] MEDS: CHOLECALCIFEROL (VITAMIN D3) 25 MCG (1,000 UNITS) TABLET 50 MCG PO (09:57)
[2025-03-02] MEDS: AZELASTINE HCL NASAL 0.1% 137 MCG/SPR 30 ML BTL 2 SPRAY NASAL ×2 (09:58→20:27)
--- NOTE | 2025-03-02 10:24 | PHAR ---
PHARMACY VERIFIED HOME MED TRELEGY FOR DAILY USE
[2025-03-02] MEDS: IPRATROPIUM 0.5 MG/ALBUTEROL SULFATE 2.5 MG AMPUL.NEB 3 ML INHALATION ×2 (11:20→16:50)
[2025-03-02] MEDS: [UNRECOGNIZED DRUG - OTHER] INHALATION (11:49)
[2025-03-02] MEDS: TRELEGY INHALATION (11:49)
[2025-03-02] MEDS: INSULIN HUMAN LISPRO (*BKC) 1,000 UNITS/10 ML VIAL SUB-Q (12:41)
[2025-03-02] MEDS: TRIAMCINOLONE ACET 0.1% CREAM 15 GM TUBE 1 APPLIC TOPICAL (17:51)
[2025-03-02] MEDS: DICLOFENAC SODIUM 1% 100 GM GEL (*BKC) 1 APPLIC TOPICAL (18:22)
[2025-03-02] MEDS: TOLNAFTATE 1% POWDER 45 GM BTL 1 APPLIC TOPICAL (20:27)
[2025-03-02] MEDS: INSULIN GLARGINE (*BKC) 1,000 UNITS/10 ML VIAL 36 UNITS SUB-Q (20:29)
[2025-03-02] MEDS: guaiFENesin 12 HR 600 MG TABCR 1200 MG PO (20:29)
[2025-03-03] VITALS (14 sets, daily range): BP systolic 117–124; BP diastolic 54–80; PULSE 46–88; RESP 16–18; TEMP 36.2–36.6; O2SAT 94–98
[2025-03-03 05:47] LABS: INR 3.9; Prothrombin Time 37.6 Seconds (9.50-12.1)
[2025-03-03] MEDS: IPRATROPIUM 0.5 MG/ALBUTEROL SULFATE 2.5 MG AMPUL.NEB 3 ML INHALATION ×4 (05:54→23:35)
[2025-03-03] MEDS: LEVOTHYROXINE SODIUM 50 MCG TABLET PO (06:25)
[2025-03-03] MEDS: AZELASTINE HCL NASAL 0.1% 137 MCG/SPR 30 ML BTL 2 SPRAY NASAL ×2 (10:04→20:01)
[2025-03-03] MEDS: TRIAMCINOLONE ACET 0.1% CREAM 15 GM TUBE 1 APPLIC TOPICAL ×2 (10:04→17:39)
[2025-03-03] MEDS: PREGABALIN (*CRX) 50 MG CAPSULE 150 MG PO ×3 (10:05→17:38)
[2025-03-03] MEDS: LORATADINE 10 MG TABLET PO (10:05)
[2025-03-03] MEDS: EMPAGLIFLOZIN 25 MG TABLET PO (10:05)
[2025-03-03] MEDS: guaiFENesin 12 HR 600 MG TABCR 1200 MG PO ×2 (10:05→20:01)
[2025-03-03] MEDS: [UNRECOGNIZED DRUG - OTHER] INHALATION (10:05)
[2025-03-03] MEDS: METOPROLOL TARTRATE 12.5 MG TABLET PO ×2 (10:05→19:56)
[2025-03-03] MEDS: TRELEGY INHALATION (10:05)
[2025-03-03] MEDS: ATORVASTATIN 10 MG TABLET 20 MG PO (10:05)
[2025-03-03] MEDS: BACLOFEN 10 MG TABLET PO ×3 (10:06→17:38)
[2025-03-03] MEDS: DOCUSATE SODIUM 100 MG CAPSULE PO ×2 (10:06→20:01)
[2025-03-03] MEDS: TAMSULOSIN HCL 0.4 MG CAPSULE 0.8 MG PO (10:06)
[2025-03-03] MEDS: FUROSEMIDE 20 MG TABLET PO (10:06)
[2025-03-03] MEDS: PANTOPRAZOLE 40 MG TABLET PO (10:06)
[2025-03-03] MEDS: FLECAINIDE ACETATE 50 MG TABLET PO ×2 (10:06→20:01)
[2025-03-03] MEDS: CHOLECALCIFEROL (VITAMIN D3) 25 MCG (1,000 UNITS) TABLET 50 MCG PO (10:06)
[2025-03-03] MEDS: TOLNAFTATE 1% POWDER 45 GM BTL 1 APPLIC TOPICAL ×2 (10:07→20:02)
[2025-03-03] MEDS: INSULIN GLARGINE (*BKC) 1,000 UNITS/10 ML VIAL 36 UNITS SUB-Q (20:10)
[2025-03-03] MEDS: DICLOFENAC SODIUM 1% 100 GM GEL (*BKC) 1 APPLIC TOPICAL (20:14)
--- NOTE | 2025-03-03 20:55 | PC.NURSE ---
Patient assisted with HS care. Urinals within reach. PRN powder applied to reddened areas to groin and scrotal area. Voltaren cream applied to both feet. Able to make needs known. Call light and belongings within reach.
[2025-03-04] VITALS (14 sets, daily range): BP systolic 100–139; BP diastolic 42–62; PULSE 55–66; RESP 16–18; TEMP 36.3–36.6; O2SAT 92–96
[2025-03-04] MEDS: LEVOTHYROXINE SODIUM 50 MCG TABLET PO (05:48)
[2025-03-04] MEDS: IPRATROPIUM 0.5 MG/ALBUTEROL SULFATE 2.5 MG AMPUL.NEB 3 ML INHALATION ×4 (05:48→23:30)
[2025-03-04 07:15] LABS: INR 3.0; Prothrombin Time 29.7 Seconds (9.50-12.1)
[2025-03-04] MEDS: AZELASTINE HCL NASAL 0.1% 137 MCG/SPR 30 ML BTL 2 SPRAY NASAL ×2 (08:13→20:29)
[2025-03-04] MEDS: PREGABALIN (*CRX) 50 MG CAPSULE 150 MG PO ×3 (08:14→16:51)
[2025-03-04] MEDS: DOCUSATE SODIUM 100 MG CAPSULE PO ×2 (08:15→20:30)
[2025-03-04] MEDS: TAMSULOSIN HCL 0.4 MG CAPSULE 0.8 MG PO (08:15)
[2025-03-04] MEDS: PANTOPRAZOLE 40 MG TABLET PO (08:15)
[2025-03-04] MEDS: BACLOFEN 10 MG TABLET PO ×3 (08:15→16:52)
[2025-03-04] MEDS: guaiFENesin 12 HR 600 MG TABCR 1200 MG PO ×2 (08:16→20:30)
[2025-03-04] MEDS: [UNRECOGNIZED DRUG - OTHER] INHALATION (08:16)
[2025-03-04] MEDS: TRELEGY INHALATION (08:16)
[2025-03-04] MEDS: CHOLECALCIFEROL (VITAMIN D3) 25 MCG (1,000 UNITS) TABLET 50 MCG PO (08:17)
[2025-03-04] MEDS: FLECAINIDE ACETATE 50 MG TABLET PO ×2 (08:17→20:30)
[2025-03-04] MEDS: ATORVASTATIN 10 MG TABLET 20 MG PO (08:18)
[2025-03-04] MEDS: LORATADINE 10 MG TABLET PO (08:18)
[2025-03-04] MEDS: EMPAGLIFLOZIN 25 MG TABLET PO (08:18)
[2025-03-04] MEDS: FUROSEMIDE 20 MG TABLET PO (08:18)
[2025-03-04] MEDS: TRIAMCINOLONE ACET 0.1% CREAM 15 GM TUBE 1 APPLIC TOPICAL ×2 (08:19→17:42)
[2025-03-04] MEDS: TOLNAFTATE 1% POWDER 45 GM BTL 1 APPLIC TOPICAL ×2 (08:19→20:30)
[2025-03-04] MEDS: METOPROLOL TARTRATE 12.5 MG TABLET PO ×2 (08:20→20:30)
[2025-03-04] MEDS: WARFARIN (*PBKC) 5 MG TABLET PO (16:50)
[2025-03-04] MEDS: INSULIN HUMAN LISPRO (*BKC) 1,000 UNITS/10 ML VIAL SUB-Q (16:52)
[2025-03-04] MEDS: DICLOFENAC SODIUM 1% 100 GM GEL (*BKC) 1 APPLIC TOPICAL (20:30)
[2025-03-04] MEDS: INSULIN GLARGINE (*BKC) 1,000 UNITS/10 ML VIAL 36 UNITS SUB-Q (20:33)
--- NOTE | 2025-03-04 21:00 | PC.NURSE ---
Patient declines meat sandwich for HS snack, was agreeable to Jovi osorio.
[2025-03-05] VITALS (13 sets, daily range): BP systolic 134–163; BP diastolic 64–72; PULSE 54–97; RESP 18; TEMP 36.5–36.9; O2SAT 92–98
[2025-03-05] MEDS: IPRATROPIUM 0.5 MG/ALBUTEROL SULFATE 2.5 MG AMPUL.NEB 3 ML INHALATION ×4 (05:57→23:33)
[2025-03-05] MEDS: LEVOTHYROXINE SODIUM 50 MCG TABLET PO (05:57)
[2025-03-05] MEDS: TAMSULOSIN HCL 0.4 MG CAPSULE 0.8 MG PO (08:15)
[2025-03-05] MEDS: ATORVASTATIN 10 MG TABLET 20 MG PO (08:15)
[2025-03-05] MEDS: PREGABALIN (*CRX) 50 MG CAPSULE 150 MG PO ×3 (08:16→16:40)
[2025-03-05] MEDS: CHOLECALCIFEROL (VITAMIN D3) 25 MCG (1,000 UNITS) TABLET 50 MCG PO (08:16)
[2025-03-05] MEDS: PANTOPRAZOLE 40 MG TABLET PO (08:16)
[2025-03-05] MEDS: EMPAGLIFLOZIN 25 MG TABLET PO (08:17)
[2025-03-05] MEDS: METOPROLOL TARTRATE 12.5 MG TABLET PO ×2 (08:17→20:20)
[2025-03-05] MEDS: guaiFENesin 12 HR 600 MG TABCR 1200 MG PO ×2 (08:17→20:20)
[2025-03-05] MEDS: FUROSEMIDE 20 MG TABLET PO (08:18)
[2025-03-05] MEDS: FLECAINIDE ACETATE 50 MG TABLET PO ×2 (08:18→20:21)
[2025-03-05] MEDS: BACLOFEN 10 MG TABLET PO ×3 (08:18→16:41)
[2025-03-05] MEDS: LORATADINE 10 MG TABLET PO (08:18)
[2025-03-05] MEDS: DOCUSATE SODIUM 100 MG CAPSULE PO ×2 (08:19→20:20)
[2025-03-05] MEDS: AZELASTINE HCL NASAL 0.1% 137 MCG/SPR 30 ML BTL 2 SPRAY NASAL ×2 (08:19→20:20)
[2025-03-05] MEDS: [UNRECOGNIZED DRUG - OTHER] INHALATION (08:19)
[2025-03-05] MEDS: TRELEGY INHALATION (08:19)
[2025-03-05] MEDS: TRIAMCINOLONE ACET 0.1% CREAM 15 GM TUBE 1 APPLIC TOPICAL ×2 (08:20→16:41)
[2025-03-05] MEDS: TOLNAFTATE 1% POWDER 45 GM BTL 1 APPLIC TOPICAL ×2 (08:20→20:42)
[2025-03-05 08:22] LABS: INR 2.3; Prothrombin Time 23.2 Seconds (9.50-12.1)
[2025-03-05] MEDS: INSULIN HUMAN LISPRO (*BKC) 1,000 UNITS/10 ML VIAL SUB-Q (11:46)
[2025-03-05] MEDS: WARFARIN (*PBKC) 5 MG TABLET PO (16:41)
[2025-03-05] MEDS: INSULIN GLARGINE (*BKC) 1,000 UNITS/10 ML VIAL 36 UNITS SUB-Q (20:23)
[2025-03-05] MEDS: DICLOFENAC SODIUM 1% 100 GM GEL (*BKC) 1 APPLIC TOPICAL (20:26)
--- NOTE | 2025-03-05 20:47 | PC.NURSE ---
Patient agreed to eat peanut butter with johanne crackers and milk for HS protein snack.
[2025-03-06] VITALS (12 sets, daily range): BP systolic 128–152; BP diastolic 61–68; PULSE 56–64; RESP 16–18; TEMP 36.5–37.1; O2SAT 95–99
[2025-03-06] MEDS: IPRATROPIUM 0.5 MG/ALBUTEROL SULFATE 2.5 MG AMPUL.NEB 3 ML INHALATION ×3 (05:44→17:49)
[2025-03-06] MEDS: LEVOTHYROXINE SODIUM 50 MCG TABLET PO (06:02)
[2025-03-06 07:34] LABS: Prothrombin Time 22.1 Seconds (9.64-11.0)
[2025-03-06 07:35] LABS: INR 2.2
[2025-03-06] MEDS: METOPROLOL TARTRATE 12.5 MG TABLET PO ×2 (08:43→20:11)
[2025-03-06] MEDS: [UNRECOGNIZED DRUG - OTHER] INHALATION (08:43)
[2025-03-06] MEDS: PREGABALIN (*CRX) 50 MG CAPSULE 150 MG PO ×3 (08:43→17:45)
[2025-03-06] MEDS: TRELEGY INHALATION (08:43)
[2025-03-06] MEDS: BACLOFEN 10 MG TABLET PO ×3 (08:44→17:45)
[2025-03-06] MEDS: LORATADINE 10 MG TABLET PO (08:44)
[2025-03-06] MEDS: CHOLECALCIFEROL (VITAMIN D3) 25 MCG (1,000 UNITS) TABLET 50 MCG PO (08:44)
[2025-03-06] MEDS: EMPAGLIFLOZIN 25 MG TABLET PO (08:44)
[2025-03-06] MEDS: ATORVASTATIN 10 MG TABLET 20 MG PO (08:44)
[2025-03-06] MEDS: PANTOPRAZOLE 40 MG TABLET PO (08:44)
[2025-03-06] MEDS: TAMSULOSIN HCL 0.4 MG CAPSULE 0.8 MG PO (08:44)
[2025-03-06] MEDS: guaiFENesin 12 HR 600 MG TABCR 1200 MG PO ×2 (08:44→20:10)
[2025-03-06] MEDS: FUROSEMIDE 20 MG TABLET PO (08:45)
[2025-03-06] MEDS: FLECAINIDE ACETATE 50 MG TABLET PO ×2 (08:45→20:11)
[2025-03-06] MEDS: AZELASTINE HCL NASAL 0.1% 137 MCG/SPR 30 ML BTL 2 SPRAY NASAL ×2 (08:45→20:11)
[2025-03-06] MEDS: DOCUSATE SODIUM 100 MG CAPSULE PO ×2 (08:45→20:11)
[2025-03-06] MEDS: TOLNAFTATE 1% POWDER 45 GM BTL 1 APPLIC TOPICAL ×2 (08:46→20:12)
[2025-03-06] MEDS: TRIAMCINOLONE ACET 0.1% CREAM 15 GM TUBE 1 APPLIC TOPICAL (08:48)
[2025-03-06] MEDS: INSULIN HUMAN LISPRO (*BKC) 1,000 UNITS/10 ML VIAL SUB-Q (17:45)
[2025-03-06] MEDS: WARFARIN (*PBKC) 5 MG TABLET PO (17:45)
[2025-03-06] MEDS: INSULIN GLARGINE (*BKC) 1,000 UNITS/10 ML VIAL 36 UNITS SUB-Q (20:15)
[2025-03-06] MEDS: DICLOFENAC SODIUM 1% 100 GM GEL (*BKC) 1 APPLIC TOPICAL (20:15)
[2025-03-07] VITALS (15 sets, daily range): BP systolic 117–138; BP diastolic 62–65; PULSE 54–66; RESP 14–18; TEMP 36.4–36.6; O2SAT 94–100
[2025-03-07] MEDS: IPRATROPIUM 0.5 MG/ALBUTEROL SULFATE 2.5 MG AMPUL.NEB 3 ML INHALATION ×4 (00:10→16:47)
--- NOTE | 2025-03-07 00:30 | PC.NURSE ---
Pt given a Duoneb treatment as ordered which he tolerated well.
--- NOTE | 2025-03-07 01:30 | PC.NURSE ---
Pt voided 450 ml of clear, janett urine in urinal.
--- NOTE | 2025-03-07 04:10 | PC.NURSE ---
Pt asleep and respirations remain even and unlabored.
[2025-03-07 05:52] LABS: INR 2.2; Prothrombin Time 22.9 Seconds (9.50-12.1)
[2025-03-07] MEDS: LEVOTHYROXINE SODIUM 50 MCG TABLET PO (06:22)
--- NOTE | 2025-03-07 06:25 | PC.NURSE ---
Pt given Levothyroxine 50 mcg PO as ordered. 350 ml of clear, yellow urine emptied from the urinal.
[2025-03-07] MEDS: FLECAINIDE ACETATE 50 MG TABLET PO ×2 (09:12→20:47)
[2025-03-07] MEDS: CHOLECALCIFEROL (VITAMIN D3) 25 MCG (1,000 UNITS) TABLET 50 MCG PO (09:12)
[2025-03-07] MEDS: PANTOPRAZOLE 40 MG TABLET PO (09:13)
[2025-03-07] MEDS: TAMSULOSIN HCL 0.4 MG CAPSULE 0.8 MG PO (09:13)
[2025-03-07] MEDS: LORATADINE 10 MG TABLET PO (09:13)
[2025-03-07] MEDS: METOPROLOL TARTRATE 12.5 MG TABLET PO ×2 (09:13→20:46)
[2025-03-07] MEDS: EMPAGLIFLOZIN 25 MG TABLET PO (09:13)
[2025-03-07] MEDS: guaiFENesin 12 HR 600 MG TABCR 1200 MG PO ×2 (09:13→20:47)
[2025-03-07] MEDS: PREGABALIN (*CRX) 50 MG CAPSULE 150 MG PO ×3 (09:13→18:01)
[2025-03-07] MEDS: FUROSEMIDE 20 MG TABLET PO (09:13)
[2025-03-07] MEDS: BACLOFEN 10 MG TABLET PO ×3 (09:13→18:03)
[2025-03-07] MEDS: ATORVASTATIN 10 MG TABLET 20 MG PO (09:13)
[2025-03-07] MEDS: AZELASTINE HCL NASAL 0.1% 137 MCG/SPR 30 ML BTL 2 SPRAY NASAL ×2 (09:14→20:46)
[2025-03-07] MEDS: TRELEGY INHALATION (09:14)
[2025-03-07] MEDS: TRIAMCINOLONE ACET 0.1% CREAM 15 GM TUBE 1 APPLIC TOPICAL ×2 (09:14→18:03)
[2025-03-07] MEDS: [UNRECOGNIZED DRUG - OTHER] INHALATION (09:14)
[2025-03-07] MEDS: TOLNAFTATE 1% POWDER 45 GM BTL 1 APPLIC TOPICAL ×2 (09:16→20:48)
[2025-03-07] MEDS: WARFARIN (*PBKC) 5 MG TABLET PO (18:03)
[2025-03-07] MEDS: DOCUSATE SODIUM 100 MG CAPSULE PO (20:47)
[2025-03-07] MEDS: DICLOFENAC SODIUM 1% 100 GM GEL (*BKC) 1 APPLIC TOPICAL (20:48)
[2025-03-07] MEDS: INSULIN GLARGINE (*BKC) 1,000 UNITS/10 ML VIAL 36 UNITS SUB-Q (21:03)
[2025-03-08] VITALS (13 sets, daily range): BP systolic 125–148; BP diastolic 61–83; PULSE 58–78; RESP 14–18; TEMP 36.5–36.7; O2SAT 94–99
[2025-03-08] MEDS: IPRATROPIUM 0.5 MG/ALBUTEROL SULFATE 2.5 MG AMPUL.NEB 3 ML INHALATION ×4 (00:39→16:44)
[2025-03-08 05:31] LABS: INR 2.1; Prothrombin Time 22.0 Seconds (9.50-12.1)
[2025-03-08] MEDS: LEVOTHYROXINE SODIUM 50 MCG TABLET PO (05:46)
[2025-03-08] MEDS: CHOLECALCIFEROL (VITAMIN D3) 25 MCG (1,000 UNITS) TABLET 50 MCG PO (09:58)
[2025-03-08] MEDS: FLECAINIDE ACETATE 50 MG TABLET PO ×2 (09:58→20:35)
[2025-03-08] MEDS: EMPAGLIFLOZIN 25 MG TABLET PO (09:59)
[2025-03-08] MEDS: PREGABALIN (*CRX) 50 MG CAPSULE 150 MG PO ×3 (09:59→17:36)
[2025-03-08] MEDS: METOPROLOL TARTRATE 12.5 MG TABLET PO ×2 (09:59→20:35)
[2025-03-08] MEDS: LORATADINE 10 MG TABLET PO (09:59)
[2025-03-08] MEDS: FUROSEMIDE 20 MG TABLET PO (09:59)
[2025-03-08] MEDS: guaiFENesin 12 HR 600 MG TABCR 1200 MG PO ×2 (09:59→20:35)
[2025-03-08] MEDS: PANTOPRAZOLE 40 MG TABLET PO (09:59)
[2025-03-08] MEDS: ATORVASTATIN 10 MG TABLET 20 MG PO (09:59)
[2025-03-08] MEDS: BACLOFEN 10 MG TABLET PO ×3 (10:00→17:37)
[2025-03-08] MEDS: TAMSULOSIN HCL 0.4 MG CAPSULE 0.8 MG PO (10:00)
[2025-03-08] MEDS: AZELASTINE HCL NASAL 0.1% 137 MCG/SPR 30 ML BTL 2 SPRAY NASAL ×2 (10:00→20:34)
[2025-03-08] MEDS: TRELEGY INHALATION (10:01)
[2025-03-08] MEDS: TOLNAFTATE 1% POWDER 45 GM BTL 1 APPLIC TOPICAL ×2 (10:01→20:36)
[2025-03-08] MEDS: [UNRECOGNIZED DRUG - OTHER] INHALATION (10:01)
[2025-03-08] MEDS: TRIAMCINOLONE ACET 0.1% CREAM 15 GM TUBE 1 APPLIC TOPICAL (10:01)
[2025-03-08] MEDS: WARFARIN (*PBKC) 5 MG TABLET PO (17:36)
[2025-03-08] MEDS: DICLOFENAC SODIUM 1% 100 GM GEL (*BKC) 1 APPLIC TOPICAL (20:34)
[2025-03-08] MEDS: DOCUSATE SODIUM 100 MG CAPSULE PO (20:35)
[2025-03-08] MEDS: INSULIN GLARGINE (*BKC) 1,000 UNITS/10 ML VIAL 36 UNITS SUB-Q (20:43)
[2025-03-09] VITALS (10 sets, daily range): BP systolic 134; BP diastolic 66–74; PULSE 53–68; RESP 16–20; TEMP 36.6–36.8; O2SAT 96–98
[2025-03-09] MEDS: IPRATROPIUM 0.5 MG/ALBUTEROL SULFATE 2.5 MG AMPUL.NEB 3 ML INHALATION ×2 (01:18→06:45)
[2025-03-09 05:24] LABS: Hematocrit 46.9 % (37.0-46.0); Hemoglobin 14.6 g/dL (12.4-15.3); Mean Corpuscular HGB Conc 31.1 g/dL (32-36); Mean Corpuscular Hemoglobin 26.5 pg (27.0-31.0); Mean Corpuscular Volume 85.3 fL (78.0-102.0); Platelet Count Result 241 K/mm3 (150-420); Red Blood Count 5.50 M/mm3 (4.70-6.10); White Blood Count 5.5 K/mm3 (4.8-10.8)
[2025-03-09 05:36] LABS: INR 2.1; Prothrombin Time 21.4 Seconds (9.50-12.1)
[2025-03-09 05:43] LABS: Alanine Aminotransferase 18 U/L (6-50); Albumin Level 3.3 g/dL (3.5-5.1); Alkaline Phosphatase 106 U/L (38-126); Anion Gap 4 mmol/L (4-12); Aspartate Amino Transferase 24 U/L (17-59); Bilirubin,Total 0.6 mg/dL (0.2-1.3); Blood Urea Nitrogen 17 mg/dL (9-20); Calcium 9.3 mg/dL (8.4-10.2); Carbon Dioxide 31 mmol/L (22-30); Chloride 107 mmol/L (98-107); Estimated CRCL calculation 73 ml/min; Estimated Glomerular Filt Rate > 60; Glucose 123 mg/dL (65-110); Magnesium 2.2 mg/dL (1.6-2.3); Osmolality Calculated 296 mOsm/kg (285-295); Potassium 4.3 mmol/L (3.4-5.0); Sodium 142 mmol/L (137-145); Total Protein 6.1 g/dL (6.3-8.2)
[2025-03-09] MEDS: LEVOTHYROXINE SODIUM 50 MCG TABLET PO (05:54)
--- NOTE | 2025-03-09 08:43 | P.PNIM_ITS ---
Progress Note: A&P Assessment and Plan (1) Weakness: Code(s): R53.1 - Weakness Status: Acute Assessment and Plan: Patient had been hospitalized recently for pneumonia, CHF, RODRIGUEZ, and generalized weakness. Transferred to [facility] for Rehab. Responding well to therapy * continue PT/OT * Pain management with norco * continue bowel regiment (2) COPD (chronic obstructive pulmonary disease): Qualifiers: COPD type: unspecified COPD Qualified Code(s): J44.9 - Chronic obs tructive pulmonary disease, unspecified Code(s): J44.9 - Chronic obstructive pulmonary disease, unspecified Status: Acute Assessment and Plan: Stable. No wheezing. * Change DuoNebs q.6 to as needed. * Continue Trelegy and guaifenesin. Astelin and Claritin for allergy symptoms. * incentive spirometer * oxygen p.r.n. (3) Pneumonia: Code(s): J18.9 - Pneumonia, unspecified organism Status: Resolved Assessment and Plan: Recently hospitalized for PNA and has completed ABX therapy * continue using incentive spirometer * DuoNebs prn * guaifenesin b.i.d. (4) Chronic deep vein thrombosis (DVT): Code(s): I82.509 - Chronic embolism and thrombosis of unspecified deep veins of unspecified lower extremity Status: Acute Assessment and Plan: patient on Coumadin for PE, DVT and AFib. He was previously on eliquis but reports had a GI bleed and was taken off * INR 2.1, Hgb 14.6 * Continue Coumadin 5 mg daily * Daily PTT INR (5) Diabetes mellitus with neuropathy: Qualifiers: Diabetes mellitus type: type 2 Diabetes mellitus correction insulin use: with correction use Qualified Code(s): E11.40 - Type 2 diabetes mellitus with diabetic neuropathy, unspecified; Z79.4 - longterm (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 Code(s): E11.40 - Type 2 diabetes mellitus with diabetic neuropathy, unspecified Status: Acute Assessment and Plan: Patient with chronic history of diabetes but does report he has having episodes of hypoglycemia. Lantus was reduced at [facility] to 36 units from 44 * Lantus continued at 36U HS. Emagliflozin continued. Glucose remains well controlled (123 this morning) * Continue Accu-Cheks a.c. HS with high dose SSI * diabetic diet * hypoglycemic protocol (6) Hypertension: Qualifiers: Hypertension type: essential hypertension Qualified Code(s): I10 - Essential (primary) hypertension Code(s): I10 - Essential (primary) hypertension Status: Chronic Assessment and Plan: * BP reviewed and stable * continued patient's metoprolol (7) Hyperlipidemia: Qualifiers: Hyperlipidemia type: mixed hyperlipidemia Qualified Code(s): E78.2 - Mixed hyperlipidemia Code(s): E78.5 - Hyperlipidemia, unspecified Status: Acute Assessment and Plan: * LFTs normal. * Continue home statin (8) Atrial fibrillation: Code(s): I48.91 - Unspecified atrial fibrillation Status: Acute Assessment and Plan: * continued patient's Coumadin and metoprolol (9) Excoriation of groin: Code(s): S30.811A - Abrasion of abdominal wall, initial encounter Status: Acute Assessment and Plan: Noted excoriation to groin area * InterDry to skin folds * Tolnaftate powder * keep area clean and dry Plan Code status: DNR/DNI Meds only DVT prophylaxis: Coumadin Stress ulcer prophylaxis: Protonix 40 daily PT/OT notes: Swing Bed Disposition: Patient admitted to [facility] for continued rehab for deconditioned state after hospitalization for f pneumonia with generalized weakness plan is to return home at discharge. Subjective Date/time seen: 03/09/25 08:43 Interval history: 84yo male with COPD, DM, CHF, history of PE/DVT, AFib, and blindness who was admitted to [facility] bed from [facility] due to recent fall at home with unsteady gait and weakness. Patient had multiple admissions recently for pneumonia, UTI, RODRIGUEZ, CHF, weakness and unsteady gait. Assuming care. Chart reviewed. No CP or SOB but has MCMANUS which is more chronic. No complaints. No n/v. Nml BMs. Walking in halls. Exam Narrative: AF 98.0 145/83 53 19 98% ra Gen - NARD Chest - minor basilar rhonchi o/w clear CV - irregularly irregular. Abd - Soft, obese, NT Ext - Compression hose in place. Neuro - Alert and appropriate Psych - Nml mood and affect Skin - Warm and dry Objective Data Vital Signs Vital Signs: Vital Signs - 24 hr 03/08/25 09:58 03/08/25 09:59 03/08/25 11:28 Temperature Pulse Rate 78 78 58 L Respiratory Rate 18 Blood Pressure Pulse Oximetry 95 Oxygen Delivery Room Air Oxygen Flow Rate 03/08/25 11:28 03/08/25 16:00 03/08/25 16:45 Temperature 97.7 F Pulse Rate 58 L 60 64 Respiratory Rate 18 17 14 Blood Pressure 125/61 Pulse Oximetry 95 94 98 Oxygen Delivery Room Air Oxygen Flow Rate 0 03/08/25 16:53 03/08/25 20:35 03/08/25 20:35 Temperature Pulse Rate 61 60 60 Respiratory Rate 14 Blood Pressure Pulse Oximetry 98 Oxygen Delivery Oxygen Flow Rate 03/08/25 23:42 03/09/25 01:15 03/09/25 01:40 Temperature 98.0 F Pulse Rate 60 62 60 Respiratory Rate 18 16 16 Blood Pressure 145/83 H Pulse Oximetry 96 98 98 Oxygen Delivery Room Air Oxygen Flow Rate 03/09/25 06:47 Temperature Pulse Rate 53 L Respiratory Rate 18 Blood Pressure Pulse Oximetry 98 Oxygen Delivery Oxygen Flow Rate Intake/Output Intake/Output: Intake & Output 03/06/25 03/07/25 03/08/25 03/09/25 23:59 23:59 23:59 23:59 Intake Total 2522 1950 2000 500 Output Total 5931 0512 6743 850 Balance -703 -275 -725 -350 Meds/Results Medications: Active Medications Generic Name Dose Route Start Last Admin Trade Name Freq PRN Reason Stop Dose Admin Acetaminophen 650 mg 03/01/25 17:03 Acetaminophen 325 Mg Tablet PO Q12H PRN pain 1-4 Hydrocodone Bitart/Acetaminophen 1 tab 03/01/25 17:03 03/02/25 03:13 Hydrocodone/Acetaminophen (*Crx) 5-325 Mg Tablet PO 1 tab Q8H PRN Administration Moderate Pain (4-6) Albuterol/Ipratropium 3 ml 03/02/25 12:30 03/09/25 06:45 Ipratropium 0.5 Mg/Albuterol Sulfate 2.5 Mg Ampul.Neb 3 Ml INHALATION 3 ml Q6HRT AUDELIA Administration Atorvastatin Calcium 20 mg 03/02/25 09:00 03/08/25 09:59 Atorvastatin 10 Mg Tablet PO 20 mg DAILY AUDELIA Administration Azelastine HCl 2 spray 03/01/25 21:00 03/08/25 20:34 Azelastine Hcl Nasal 0.1% 137 Mcg/Spr 30 Ml Btl NASAL 2 spray Q12HR AUDELIA Administration Baclofen 10 mg 03/02/25 09:00 03/08/25 17:37 Baclofen 10 Mg Tablet PO 10 mg TID AUDELIA Administration Dextrose 12.5 gm 03/01/25 17:06 Dextrose 50% 25 Gm/50 Ml Syringe IV PUSH PRN PRN Hypoglycemia Protocol Diclofenac Sodium 1 applic 03/01/25 17:03 03/08/25 20:34 Diclofenac Sodium 1% 100 Gm Gel (*Bkc) TOPICAL 1 applic QID PRN Administration joint pain Docusate Sodium 100 mg 03/01/25 21:00 03/08/25 20:35 Docusate Sodium 100 Mg Capsule PO 100 mg Q12HR AUDELIA Administration Empagliflozin 25 mg 03/02/25 09:00 03/08/25 09:59 Empagliflozin 25 Mg Tablet PO 25 mg DAILY AUDEILA Administration Flecainide Acetate 50 mg 03/01/25 21:00 03/08/25 20:35 Flecainide Acetate 50 Mg Tablet PO 50 mg Q12HR AUDELIA Administration Furosemide 20 mg 03/02/25 09:00 03/08/25 09:59 Furosemide 20 Mg Tablet PO 20 mg DAILY AUDELIA Administration Glucagon 1 mg 03/01/25 17:06 Glucagon For Inj 1 Mg Vial IM PRN PRN Hypoglycemia Protocol Glucose 15 gm 03/01/25 17:06 Glucose Oral Gel 15 Gm Of Glucse In 37.5 Gm Tube PO PRN PRN Hypoglycemia Protocol Guaifenesin 1,200 mg 03/02/25 21:00 03/08/25 20:35 Guaifenesin 12 Hr 600 Mg Tabcr PO 1,200 mg Q12HR AUDELIA Administration Dextrose 1,000 mls @ 100 mls/hr 03/01/25 17:06 Dextrose 5% 1,000 Ml IVPB PRN PRN Hypoglycemia Protocol Insulin Glargine 36 units 03/01/25 21:00 03/08/25 20:43 Insulin Glargine (*Bkc) 1,000 Units/10 Ml Vial SUB-Q 36 units HS AUDELIA Administration Insulin Human Lispro 4 - 8 units 03/02/25 08:00 03/08/25 17:32 Insulin Human Lispro (*Bkc) 1,000 Units/10 Ml Vial SUB-Q Not Given TIDWM AUDELIA Protocol Levothyroxine Sodium 50 mcg 03/02/25 06:30 03/09/25 05:54 Levothyroxine Sodium 50 Mcg Tablet PO 50 mcg DAILY@0630 AUDELIA Administration Loratadine 10 mg 03/02/25 09:00 03/08/25 09:59 Loratadine 10 Mg Tablet PO 10 mg DAILY AUDELIA Administration Metoprolol Tartrate 12.5 mg 03/01/25 21:00 03/08/25 20:35 Metoprolol Tartrate 12.5 Mg Tablet PO 12.5 mg Q12HR AUDELIA Administration Nonformulary Drug - 1 each 03/02/25 11:30 03/08/25 10:01 Trelegy ( INHALATION 04/01/25 11:29 1 each Fluticasone Fur. 200 DAILY AUDELIA Administration Mcg-Umeclid 62.5- Vilant 25 Mcg Inhalat Ondansetron HCl 4 mg 03/01/25 17:06 Ondansetron Hcl Odt 4 Mg Tablet PO Q6H PRN Nausea And Vomiting Pantoprazole Sodium 40 mg 03/02/25 09:00 03/08/25 09:59 Pantoprazole 40 Mg Tablet PO 40 mg QAM AUDELIA Administration Polyethylene Glycol 17 gm 03/03/25 10:35 03/04/25 10:35 Polyethylene Glycol 3350 17 Gm Powd.Pack PO 17 gm QAM PRN Administration Constipation Pregabalin 150 mg 03/02/25 09:00 03/08/25 17:36 Pregabalin (*Crx) 50 Mg Capsule PO 150 mg TID AUDELIA Administration Tamsulosin HCl 0.8 mg 03/02/25 09:00 03/08/25 10:00 Tamsulosin Hcl 0.4 Mg Capsule PO 0.8 mg DAILY AUDELIA Administration Tolnaftate 1 applic 03/02/25 21:00 03/08/25 20:36 Tolnaftate 1% Powder 45 Gm Btl TOPICAL 1 applic Q12HR AUDELIA Administration Triamcinolone Acetonide 1 applic 03/02/25 09:00 03/08/25 17:39 Triamcinolone Acet 0.1% Cream 15 Gm Tube TOPICAL Not Given BID [facility] Vitamin D 50 mcg 03/02/25 09:00 03/08/25 09:58 Cholecalciferol (Vitamin D3) 25 Mcg (1,000 Units) Tablet PO 50 mcg DAILY AUDELIA Administration Warfarin Sodium 5 mg 03/04/25 17:00 03/08/25 17:36 Warfarin (*Pbkc) 5 Mg Tablet PO 5 mg DAILY@1700 AUDELIA Administration Labs Labs: Laboratory Results - last 24 hr 03/08/25 03/08/25 03/08/25 11:54 16:59 20:33 WBC RBC Hgb Hct MCV MCH MCHC RDW Plt Count MPV PT INR Sodium Potassium Chloride Carbon Dioxide Anion Gap BUN Creatinine Estim Creat Clear Calc Estimated GFR Glucose POC Capillary Glucose 127 H 163 H 155 H Calculated Osmolality Calcium Magnesium Total Bilirubin AST ALT Alkaline Phosphatase Total Protein Albumin 03/09/25 05:09 WBC 5.5 RBC 5.50 Hgb 14.6 Hct 46.9 H MCV 85.3 MCH 26.5 L MCHC 31.1 L RDW 18.4 H Plt Count 241 MPV 10.6 PT 21.4 H INR 2.1 Sodium 142 Potassium 4.3 Chloride 107 Carbon Dioxide 31 H Anion Gap 4 BUN 17 Creatinine 1.04 Estim Creat Clear Calc 73 Estimated GFR > 60 Glucose 123 H POC Capillary Glucose Calculated Osmolality 296 H Calcium 9.3 Magnesium 2.2 Total Bilirubin 0.6 AST 24 ALT 18 Alkaline Phosphatase 106 Total Protein 6.1 L Albumin 3.3 L
[2025-03-09] MEDS: METOPROLOL TARTRATE 12.5 MG TABLET PO ×2 (09:24→20:14)
[2025-03-09] MEDS: CHOLECALCIFEROL (VITAMIN D3) 25 MCG (1,000 UNITS) TABLET 50 MCG PO (09:24)
[2025-03-09] MEDS: TAMSULOSIN HCL 0.4 MG CAPSULE 0.8 MG PO (09:24)
[2025-03-09] MEDS: PANTOPRAZOLE 40 MG TABLET PO (09:24)
[2025-03-09] MEDS: EMPAGLIFLOZIN 25 MG TABLET PO (09:24)
[2025-03-09] MEDS: BACLOFEN 10 MG TABLET PO ×3 (09:25→17:12)
[2025-03-09] MEDS: LORATADINE 10 MG TABLET PO (09:25)
[2025-03-09] MEDS: PREGABALIN (*CRX) 50 MG CAPSULE 150 MG PO ×3 (09:25→17:13)
[2025-03-09] MEDS: guaiFENesin 12 HR 600 MG TABCR 1200 MG PO ×2 (09:25→20:07)
[2025-03-09] MEDS: DOCUSATE SODIUM 100 MG CAPSULE PO ×2 (09:25→20:07)
[2025-03-09] MEDS: DICLOFENAC SODIUM 1% 100 GM GEL (*BKC) 1 APPLIC TOPICAL ×2 (09:26→20:08)
[2025-03-09] MEDS: ATORVASTATIN 10 MG TABLET 20 MG PO (09:26)
[2025-03-09] MEDS: FUROSEMIDE 20 MG TABLET PO (09:26)
[2025-03-09] MEDS: FLECAINIDE ACETATE 50 MG TABLET PO ×2 (09:26→20:08)
[2025-03-09] MEDS: AZELASTINE HCL NASAL 0.1% 137 MCG/SPR 30 ML BTL 2 SPRAY NASAL ×2 (09:27→20:08)
[2025-03-09] MEDS: TRELEGY INHALATION (09:27)
[2025-03-09] MEDS: TRIAMCINOLONE ACET 0.1% CREAM 15 GM TUBE 1 APPLIC TOPICAL ×2 (09:27→17:15)
[2025-03-09] MEDS: [UNRECOGNIZED DRUG - OTHER] INHALATION (09:27)
[2025-03-09] MEDS: TOLNAFTATE 1% POWDER 45 GM BTL 1 APPLIC TOPICAL ×2 (09:27→20:08)
[2025-03-09] MEDS: WARFARIN (*PBKC) 5 MG TABLET PO (17:13)
[2025-03-09] MEDS: INSULIN GLARGINE (*BKC) 1,000 UNITS/10 ML VIAL 36 UNITS SUB-Q (20:10)
[2025-03-10] VITALS: BP 138/83; PULSE 68; RESP 18; TEMP 36.6; O2SAT 96
[2025-03-10] MEDS: LEVOTHYROXINE SODIUM 50 MCG TABLET PO (05:43)
[2025-03-10 08:00] VITALS: BP 134/64; PULSE 64; RESP 20; TEMP 36.6; O2SAT 97
[2025-03-10 08:32] VITALS: PULSE 62
[2025-03-10] MEDS: [UNRECOGNIZED DRUG - OTHER] INHALATION (08:32)
[2025-03-10] MEDS: METOPROLOL TARTRATE 12.5 MG TABLET PO (08:32)
[2025-03-10] MEDS: CHOLECALCIFEROL (VITAMIN D3) 25 MCG (1,000 UNITS) TABLET 50 MCG PO (08:32)
[2025-03-10] MEDS: TRELEGY INHALATION (08:32)
[2025-03-10] MEDS: PREGABALIN (*CRX) 50 MG CAPSULE 150 MG PO (08:32)
[2025-03-10] MEDS: AZELASTINE HCL NASAL 0.1% 137 MCG/SPR 30 ML BTL 2 SPRAY NASAL (08:32)
[2025-03-10] MEDS: ATORVASTATIN 10 MG TABLET 20 MG PO (08:33)
[2025-03-10] MEDS: TAMSULOSIN HCL 0.4 MG CAPSULE 0.8 MG PO (08:33)
[2025-03-10] MEDS: FUROSEMIDE 20 MG TABLET PO (08:33)
[2025-03-10] MEDS: EMPAGLIFLOZIN 25 MG TABLET PO (08:33)
[2025-03-10] MEDS: DOCUSATE SODIUM 100 MG CAPSULE PO (08:33)
[2025-03-10] MEDS: LORATADINE 10 MG TABLET PO (08:33)
[2025-03-10] MEDS: guaiFENesin 12 HR 600 MG TABCR 1200 MG PO (08:33)
[2025-03-10 08:34] VITALS: PULSE 62
[2025-03-10] MEDS: PANTOPRAZOLE 40 MG TABLET PO (08:34)
[2025-03-10] MEDS: FLECAINIDE ACETATE 50 MG TABLET PO (08:34)
[2025-03-10] MEDS: BACLOFEN 10 MG TABLET PO (08:34)
--- NOTE | 2025-03-10 09:59 | PM.DS ---
DS: Admitting Diagnosis Discharge Date 03/10/25 Admitting Diagnosis Weakness DS: Discharge Diagnosis Discharge Diagnosis (1) Weakness: Code(s): R53.1 - Weakness Status: Acute (2) COPD (chronic obstructive pulmonary disease): Qualifiers: COPD type: unspecified COPD Qualified Code(s): J44.9 - Chronic obstructive pulmonary disease, unspecified Code(s): J44.9 - Chronic obstructive pulmonary disease, unspecified Status: Acute (3) Pneumonia: Code(s): J18.9 - Pneumonia, unspecified organism Status: Resolved (4) Chronic deep vein thrombosis (DVT): Code(s): I82.509 - Chronic embolism and thrombosis of unspecified deep veins of unspecified lower extremity Status: Acute (5) Diabetes mellitus with neuropathy: Qualifiers: Diabetes mellitus skilled nursing insulin use: with skilled nursing use Diabetes mellitus type: type 2 Qualified Code(s): E11.40 - Type 2 diabetes mellitus with diabetic neuropathy, unspecified; Z79.4 - ocean transportation intermediary (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 Code(s): E11.40 - Type 2 diabetes mellitus with diabetic neuropathy, unspecified Status: Acute (6) Hypertension: Qualifiers: Hypertension type: essential hypertension Qualified Code(s): I10 - Essential (primary) hypertension Code(s): I10 - Essential (primary) hypertension Status: Chronic (7) Hyperlipidemia: Qualifiers: Hyperlipidemia type: mixed hyperlipidemia Qualified Code(s): E78.2 - Mixed hyperlipidemia Code(s): E78.5 - Hyperlipidemia, unspecified Status: Acute (8) Atrial fibrillation: Code(s): I48.91 - Unspecified atrial fibrillation Status: Acute (9) Excoriation of groin: Code(s): S30.811A - Abrasion of abdominal wall, initial encounter Status: Acute DS: Summary Hospital Course Reason for hospitalization: 4yo male with COPD, DM, CHF, history of PE/DVT, AFib, and blindness who was admitted to [facility] from [facility] due to recent fall at home with unsteady gait and weakness. Patient had multiple admissions recently for pneumonia, UTI, RODRIGUEZ, CHF, weakness and unsteady gait. Please see H&P for details. Hospital Course: Patient had been hospitalized recently for pneumonia, CHF, RODRIGUEZ, and generalized weakness. Transferred to [facility] for Rehab. PT/OT started. COPD remained stable without wheezing. DuoNebs q.6 to as needed, Trelegy and guaifenesin continued. Astelin and Claritin for allergy symptoms. Recently hospitalized for PNA and has completed ABX therapy. Patient on Coumadin for PE, DVT and AFib. He was previously on Eliquis but reports had a GI bleed and was taken off. INR was checked frequently and remained in therapeutic range. Patient with chronic history of diabetes but does report he has having episodes of hypoglycemia. Lantus was reduced at [facility] to 36U units from 44U. We continued Lantus at 36U HS. Empagliflozin continued. Glucose remained well controlled. He responded well to therapy adn was up walking in the halls. He feels ready for discharge. Discharge instructions discussed and all questions answered. He overall did well and was able to be discharged on 03/10/25. Status at Discharge Cognitive/behavioral status at discharge: stable Time Spent with Patient Time attestation: Total time spent providing and/or coordinating discharge services: 34 minutes Time spent: Greater than 30 minutes Exam Narrative: AF 97.9 138/83 62 18 96% ra Gen - NARD Chest - clear bilaterally, nml RR CV - irregularly irregular. Abd - Soft, obese, NT Ext - Compression hose in place. Neuro - Alert and appropriate Psych - Nml mood and affect Skin - Warm and dry DS: Data Data Completed and Pending Labs on day of discharge: Labs from last 24 hours 03/10/25 03/09/25 03/09/25 07:24 20:06 17:02 POC Capillary Glucose 130 H 160 H 186 H 03/09/25 11:44 POC Capillary Glucose 162 H Discharge Plan Discharge Attending physician on discharge: Alex Christopher Consulting providers: Letty Romo Discharging Clinician: Alex Christopher Anticipated Discharge Date/Time: 03/10/25 10:06 Patient Disposition: Home with Home Health Service Activity: as tolerated Diet: diabetic Discharge Instructions: Per Care Coordination: [facility] will follow you at discharge and will plan to see you on Thursday, March 12. They will call you to schedule a time. Check PT/INR on 03/13/25 with results to your doctor. Please check glucose before meals and before bed. Record and bring into your doctor for review. Call your doctor if your glucose is greater than 200 in 2 consecutive checks. Check blood pressure 1 to 2 times a day. Record and bring into your doctor for review. Call your doctor if your blood pressure is greater than 180/110. Take precautions to avoid falls. Rise slowly from a lying or sitting position. Pause before standing or walking. Check daily morning weights after voiding. Call your doctor if you gain more than 3 lb in 2 days or 5 lb in 1 week. Contact your doctor or call 911 and come to the Emergency Room if you have any type of trauma, lightheadedness with standing or other worrisome symptoms. Avoid NSAIDs (ibuprofen, naproxen, Aleve). Tylenol is safe to take. Follow-up with your primary care provider in 1-2 weeks. Please call for appointment. Follow-up with Dr. Rojas in 2-4 weeks. Please call for an appointment. Thank you for using [facility] for your health care needs. Patient Instructions: Antibiotic Form Patient Language: Italian Stand Alone Forms: General Discharge Information Follow-up/Referrals: Liset Haynes MD [Primary Care Provider] - Call for Appointment (Per Acacia at Dr. Machuca office I will call patient and set up a telephone appointment.) Collin Rojas MD [Physician] - 03/15/25 2:00 pm (03/15/2025 @ 2:00PM [place] Office) Discharge Medications: New warfarin 5 mg tablet 5 mg PO DAILY Qty: 30 1RF Continued acetaminophen [Tylenol Arthritis Pain] 650 mg tablet extended release 650 mg PO Q12H PRN (Reason: pain 1-4) Jardiance 25 mg Tablet 25 mg PO DAILY Qty: 30 0RF flecainide 50 mg Tablet 50 mg PO Q12H triamcinolone acetonide 0.1 % cream 1 applic topical BID Qty: 80 0RF Patient Comments: left elbow Adult 50 Plus Probiotic 4 billion cell capsule 4,000 mmu cells PO DAILY Rx Instructions: administer with a meal (DME) wheeled walker XL See Rx Instructions .Route .MEDSUPPLY Qty: 1 0RF Rx Instructions: As directed (DME) knee high medium compression stockings See Rx Instructions .Route .MEDSUPPLY Qty: 1 0RF Rx Instructions: As directed daily for leg edema (DME) diabetic shoes See Rx Instructions .Route .MEDSUPPLY Qty: 1 0RF Rx Instructions: As directed (DME) FreeStyle Santiago 3 Plus Sensor Device See Rx Instructions .Route Qty: 2 12RF Rx Instructions: As directed QID lidocaine [Salonpas (lidocaine)] 4 % adhesive patch,medicated 1 patch topical DAILY PRN (Reason: pain) Qty: 30 6RF Rx Instructions: Apply for 12 hours on and 12 hours off. loratadine 10 mg Capsule 10 mg PO DAILY docusate sodium 50 mg Capsule 50 mg PO BID cholecalciferol (vitamin D3) 50 mcg (2,000 unit) Capsule 50 mcg PO DAILY alpha lipoic acid 200 mg Capsule 200 mg PO DAILY diclofenac sodium 1 % gel 4 g topical QID PRN (Reason: joint pain) Rx Instructions: apply to single knee, ankle, foot; for foot includes sole/toes/top of foot hydrocodone-acetaminophen 5-325 mg Tablet 1 tablet PO Q8H PRN (Reason: Moderate Pain (4-6)) Qty: 20 0RF insulin glargine [Lantus U-100 Insulin] 100 unit/mL Solution 36 unit subcut HS Qty: 10 2RF (DME) NovoFine Plus 32 gauge x 1/6 needle See Rx Instructions .Route Qty: 100 5RF Rx Instructions: As directed TID to check glucose. (DME) OneTouch Ultra Test Strip See Rx Instructions .ROUTE .COMPLEX Qty: 100 3RF Dose Instruction: USE TO TEST BLOOD SUGAR THREE TIMES DAILY Rx Instructions: USE TO TEST BLOOD SUGAR THREE TIMES DAILY (DME) lancets [OneTouch Delica Plus Lancet] 33 gauge misc See Rx Instructions .Route Qty: 300 12RF Rx Instructions: As directed TID (DME) compression stockings knee high 15-20mmHG See Rx Instructions .Route .MEDSUPPLY Qty: 1 0RF Rx Instructions: As directed daily (DME) wheeled walker See Rx Instructions .Route .MEDSUPPLY Qty: 1 0RF Rx Instructions: As directed daily (DME) FreeStyle Santiago 3 [place] Misc See Rx Instructions .Route Qty: 2 12RF Rx Instructions: As directed QID furosemide 20 mg tablet See Rx Instructions .ROUTE .COMPLEX Qty: 90 1RF Dose Instruction: TAKE 1 TABLET BY MOUTH EVERY DAY FOR 30 DAYS Rx Instructions: TAKE 1 TABLET BY MOUTH EVERY DAY FOR 30 DAYS metoprolol tartrate 25 mg tablet 12.5 mg PO BID Qty: 90 3RF tamsulosin 0.4 mg capsule 0.8 mg PO DAILY Qty: 180 2RF pregabalin 150 mg capsule 150 mg PO TID Qty: 270 1RF Trelegy Ellipta 200-62.5-25 mcg blister with device 1 inh inhalation DAILY Qty: 60 5RF levothyroxine 50 mcg tablet 50 mcg PO DAILY Qty: 90 2RF atorvastatin 20 mg tablet 20 mg PO DAILY Qty: 90 3RF Fiasp FlexTouch U-100 Insulin 100 unit/mL (3 mL) insulin pen See Rx Instructions subcut .COMPLEX Qty: 15 12RF Rx Instructions: Inject 8-10 units subcutaneously TID AC; omeprazole 20 mg capsule,delayed release(DR/EC) 20 mg PO DAILY Qty: 90 1RF baclofen 10 mg tablet 10 mg PO TID Qty: 270 1RF (DME) pen needle, diabetic 32 gauge x 5/32 needle See Rx Instructions .Route Qty: 100 12RF Rx Instructions: As directed four times daily with insulin (DME) skin hand stonecutter adhesive bandage for Freestyle Santiago See Rx Instructions .Route .MEDSUPPLY Qty: 8 12RF Rx Instructions: As directed weekly azelastine 137 mcg (0.1 %) spray,non-aerosol 137 mcg intranasal Q12H Qty: 30 2RF Rx Instructions: 2 spray administer into each nostril. every morning and night Discontinued warfarin 6 mg tablet 6 mg PO DAILY Qty: 30 0RF Protocol: Dose Management Condition: Thursday Dose/Route: 6 mg Instruction: 1 x 6 mg tablet Condition: Thursday Dose/Route: 6 mg Instruction: 1 x 6 mg tablet Condition: Thursday Dose/Route: 6 mg Instruction: 1 x 6 mg tablet Condition: Thursday Dose/Route: 6 mg Instruction: 1 x 6 mg tablet Condition: Dose/Route: 6 mg Instruction: 1 x 6 mg tablet Condition: Thursday Dose/Route: 6 mg Instruction: 1 x 6 mg tablet Condition: Thursday Dose/Route: 6 mg Instruction: 1 x 6 mg tablet Protocol Text: Adjustment Start Date: Thursday01/27/25 INR Value: 2.6 INR Date: 01/27/25 Recheck Date: 02/03/25 Other Ambulatory Orders: Prothrombin Time INR (Routine) Timeframe: 20250313 Location: Determined by Patient Ordered By: Alex Christopher Date of admission: 03/01/25 15:50 Primary Care Provider: Liset Haynes Admitting Provider: Alex Christopher Attending physician on admission: Alex Christopher Condition: Stable Hospitalist MIPS Heart Failure (Exclusion) Patient has history of Heart Transplant or Left Ventricular Assistive Device?: No IF YES, STOP HERE Heart Failure (Qualifier) Patient has current or prior documentation of LVEF less than or equal to 40%, or mod/servere depressed LVSF?: No IF NO, STOP HERE
--- NOTE | 2025-03-10 12:56 | PC.NURSE ---
1155 dc per wc to family auto. dc instructions went over with and patient. they vocalize anunderstanding. encouraged to call if questions arise
--- NOTE | 2025-03-13 09:06 | PC.NURSE ---
No question/concerns on med side effects, instructions or education given.
== END 2025-03-10 11:55 | disposition home health service (06) | DRG 947 ==
PROVIDERS: Nurse Practitioner Family; Admitting Provider Internal Medicine; PCP Family Medicine; Visit Provider Internal Medicine
DX: R53.1 Weakness (principal); J18.9 Pneumonia, unspecified organism; N39.0 Urinary tract infection, site not specified; N17.9 Acute kidney failure, unspecified; J44.0 Chronic obstructive pulmonary disease with (acute) lower respiratory infection; S30.811D Abrasion of abdominal wall, subsequent encounter; W19.XXXD Unspecified fall, subsequent encounter; E03.9 Hypothyroidism, unspecified; E11.42 Type 2 diabetes mellitus with diabetic polyneuropathy; H54.7 Unspecified visual loss; I48.91 Unspecified atrial fibrillation; I11.0 Hypertensive heart disease with heart failure; I50.9 Heart failure, unspecified; N40.0 Benign prostatic hyperplasia without lower urinary tract symptoms; R26.9 Unspecified abnormalities of gait and mobility; Z98.41 Cataract extraction status, right eye; Z98.42 Cataract extraction status, left eye; Z90.81 Acquired absence of spleen; Z96.653 Presence of artificial knee joint, bilateral; Z86.711 Personal history of pulmonary embolism; Z87.891 Personal history of nicotine dependence; Z66 Do not resuscitate; Z79.4 Long term (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; Z79.84 Long term (current) use of oral hypoglycemic drugs; Z79.01 Long term (current) use of anticoagulants; E78.2 Mixed hyperlipidemia; Z86.718 Personal history of other venous thrombosis and embolism
CPT/HCPCS: 36415; 80053; 82948; 83735; 85027; 85610; 94640; 97110; 97161; 97165; 97530; 97535; A9270; J1815

== ENCOUNTER 2025-04-13 09:54 | Outpatient (CLI) | payer MEDICARE, SELFPAY ==
[2025-04-13 10:49] LABS: Alanine Aminotransferase 18 U/L (6-50); Albumin Level 3.4 g/dL (3.5-5.1); Alkaline Phosphatase 127 U/L (38-126); Anion Gap 7 mmol/L (4-12); Aspartate Amino Transferase 29 U/L (17-59); Bilirubin,Total 0.8 mg/dL (0.2-1.3); Blood Urea Nitrogen 19 mg/dL (9-20); Calcium 9.1 mg/dL (8.4-10.2); Carbon Dioxide 29 mmol/L (22-30); Chloride 108 mmol/L (98-107); Estimated Glomerular Filt Rate 53; Glucose 122 mg/dL (65-110); Hemoglobin A1C 7.1 % (<5.7); Osmolality Calculated 301 mOsm/kg (285-295); Potassium 5.1 mmol/L (3.4-5.0); Sodium 144 mmol/L (137-145); Total Protein 6.4 g/dL (6.3-8.2)
== END 2025-04-13 09:55 | disposition home or self-care (01) ==
LOC: CHSLAB 09:55
PROVIDERS: PCP Family Medicine; Visit Provider Family Medicine
DX: E11.9 Type 2 diabetes mellitus without complications (principal)
CPT/HCPCS: 36415; 80053; 83036

== ENCOUNTER 2025-04-17 08:43 | Outpatient (CLI) | payer MEDICARE, SELFPAY ==
--- OUTSIDE RECORDS SUMMARY | 2025-04-17 09:14 | XMS_ITS | Encounter Summary ---
Author Organization [facility] Healthcare Address [address] [place] [address] Care Team Providers Care Supervisor Blood Donor Recruiters Name Role Phone Liset Haynes MD Primary Care Provider [phone] Encounter Details Date Type Department Care Team ([facility] st Contact Info) Description 02/02/2025 Orders Only [facility] Health Information Management [address] [place] [id number] Scanning, Provider Social History Tobacco Use Types Packs/Day Years [...] on file Legal Sex Male 3:18 AM [employer]UST[employer] 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[employer]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[employer] Gender Identity Not on file Sexual Orientation Not on file documented as of this encounter Plan of Treatment Not on file documented as of this encounter Procedures Procedure Name Priority Date/Time Associated Diagnosis Comments SCAN - RADIOLOGY/IMAGING 02/02/2025 documented in this encounter Results * SCAN - RADIOLOGY/IMAGING (02/02/2025) Anatomical Region Laterality Modality Other us Provider Scanning Final Result documented in this encounter Visit Diagnoses Not on filedocumented in this encounter Care Teams Supervisor Blood Donor Recruiters Relationship Specialty Start Date End Date Liset Haynes MD PCP - General Family Medicine 08/05/22 documented as of this encounter
--- OUTSIDE RECORDS SUMMARY | 2025-04-17 09:14 | XMS_ITS | Encounter Summary ---
Author Organization 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 Gender Identity Not on file Sexual Orientation Not on file documented as of this encounter Plan of Treatment Not on file documented as of this encounter Procedures Procedure Name Priority Date/Time Associated Diagnosis Comments SCAN - RADIOLOGY/IMAGING 02/24/2025 documented in this encounter Results * SCAN - RADIOLOGY/IMAGING (02/24/2025) Anatomical Region Laterality Modality Other us Provider Scanning Final Result documented in this encounter Visit Diagnoses Not on filedocumented in this encounter Care Teams Belt Notcher Relationship Specialty Start Date End Date Liset Haynes MD PCP - General Family Medicine 08/05/22 documented as of this encounter
--- OUTSIDE RECORDS SUMMARY | 2025-04-17 09:14 | XMS_ITS | Clinical Summary ---
Author Organization [facility] Address [address] [place] [id number] Care Team Providers Care Health And Human Performance Professor Name Role Phone Unavailable Primary Care Provider Unavailabl e Social History Tobacco Use Types Packs/Day Years Used Date Smoking Tobacco: Never Assessed Sex and Gender Information Value Date Recorded Sex Assigned at Not on file Legal Sex Male 5:58 PM DANCE DIRECTOR Gender Identity Not on file Sexual Orientation Not on file Plan of Treatment Health Maintenance Due Date Last Done Comments DTaP, Tdap and Td Vaccines ( 1 - Tdap) 1961 Pneumococcal Vaccine: 50+ Ye ars (1 of 1 - PCV) 1992 Zoster Vaccines (1 of 2) 1992 RSV Immunization or 60+ Years (1 - 1-dose 75+ series) 2017 COVID-19 Vaccine (1 - 2023-2 5 season) 2025 Meningococcal B Vaccine Aged Out No l onger eligible based on patient's age to complete this topic Meningococcal Vaccine Aged Out No lucas keyanna eligible based on patient's age to complete this topic RSV Immunizations Under 20 Months Aged Out No longer eligible based on patient's age to complete this topic
--- OUTSIDE RECORDS SUMMARY | 2025-04-17 09:14 | XMS_ITS | Clinical Summary ---
Author Organization [facility] Address [address] [place] [address] Care Team Providers Care Print Traffic Manager Name Role Phone Liset Haynes MD Primary Care Provider [phone] Allergies Active Allergy Reactions Criticality Noted Date Comments Adhesive Tape-Silicones Flushing (skin) Low Medications baclofen (LIORESAL) 10 mg tablet take 1 tablet by oral route 3 times every day 0 0 04/21/20 16 Active tamsulosin (FLOMAX) 0.4 mg capsule,extend ed release 24hr take 1 capsule by oral route every day 1/2 hour following the same meal each day 0 0 04/21/20 16 Active Additional Information Patient taking differently:0.4 mgoral 2 times daily, Informant: Pharmacy, Reported on 03/24/2025 insulin glargine (LANTUS SOLOSTAR) 100 unit/mL (3 mL) insulin pen inject by subcutaneous route as per insulin protocol 0 Syringe 0 04/21/20 16 Active metoprolol (LOPRESSOR) 25 mg tablet 1/2 tab bid 90 3 04/21/20 16 Active Additional Information Patient taking differently: 12.5 mg oral 2 times daily, Reported on 03/24/2025 levothyroxine (SYNTHROID) 50 mcg tablet Take 1 [...] BLOOD SUGAR THREE TIMES DAILY 04/20/20 Active omeprazole (PriLOSEC) 20 mg capsule Take [...] daily 05/13/20 Active acetaminophen (TYLENOL) 325 mg tabletIndicati ons:Pain Take 2 tablets (650 mg total) by mouth every 6 (six) hours as needed for pain 30 tablet 07/29/20 Active senna-docusate (PERICOLACE) 8.6-50 mgIndications: constipation Take 1 tablet by mouth 2 (two) times a day 28 tablet 07/29/20 Active BD Blanca 2nd Gen Pen Needle 32 gauge x 5/32 needle DIRECTED FOUR TIMES DAILY WITH INSULIN 08/21/19 Active warfarin (COUMADIN) 5 mg tablet Take 1 tablet (5 mg total) by mouth daily Active amoxicillin-cl avulanate (AUGMENTIN) 500-125 mg per tablet Take by mouth daily 07/19/20 24 Active flecainide (TAMBOCOR) 50 mg tablet TAKE 1 TABLET BY MOUTH TWICE A DAY 180 tablet 2 09/16/19 25 Active docusate sodium (COLACE) 50 mg capsuleIndicat ions:constipat ion Take 1 capsule (50 mg total) by mouth 2 (two) times a day Active acidophilus-pe ctin, citrus 100 million cell-10 mg capsule Take by mouth Active cholecalcifero l, vitamin D3, (VITAJOY DAILY D ORAL) Take [...] mouth 3 (three) times a day Active Jardiance 25 mg tablet Take 1 tablet (25 mg total) by mouth daily 02/17/20 25 Active Farxiga 5 mg tablet Take by mouth daily 025 Discontinued Active Problems Problem Noted Date Diagnosed Date Dysphagia 09/17/2023 Encounter for medication review 07/28/2023 Assessment & Plan (07/28/2023 1:21 PM EXTRUDING PRESS ADJUSTER): 07/28 medications reviewed and updated through contact with patient's [facility] pharmacy SAH (subarachnoid hemorrhage) 07/27/2023 Assessment & Plan (07/29/2023 7:30 AM EXTRUDING PRESS ADJUSTER): - Neurosurgery consulted - Repeat head CT [...] 07/27/2023 Assessment & Plan (07/27/2023 2:21 PM EXTRUDING PRESS ADJUSTER): - PRS consulted - s/p repair with 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 - Bacitracin TID x 3 days, then vaseline - HOB elevation - Pending recovery or discharge, please call [phone] or [phone] to schedule follow-up within 1-2 weeks to be seen by an BURT Left knee pain 07/27/2023 Assessment & Plan (07/28/2023 12:59 PM EXTRUDING PRESS ADJUSTER): - XR left knee: negative for acute fracture Polycythemia 07/27/2023 Assessment & Plan (07/28/2023 12:59 PM EXTRUDING PRESS ADJUSTER): #coagulopathy - last PE in per chart [...] 07/27/2023 Assessment & Plan (07/27/2023 2:50 PM EXTRUDING PRESS ADJUSTER): - continue home levothyroxine Elevated red blood cell count 07/21/2023 Closed fracture of left distal fibula 03/11/2019 Overview (03/11/2019): Added automatically from request for surgery [id number] Acute pain due to trauma 03/11/2019 Type 2 diabetes mellitus, wi th long-term current use of insulin 03/11/2019 Assessment & Plan (07/28/2023 1:07 PM EXTRUDING PRESS ADJUSTER): #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, [...] 02/08/2019 Assessment & Plan (08/06/2021 12:23 PM EXTRUDING PRESS ADJUSTER): Cholesterol <200 mg/dL 142 137 R, CM 116 Low R 118 R, CM HDL > OR = 40 mg/dL 46 41 R, CM 34 Low R 27 Low R, CM Triglycerides <150 mg/dL 84 83 R, CM 80 R 117 R, CM LDL mg/dL (calc) 80 He remains at goal on lipitor 40 mg so will continue Assessment & Plan (08/15/2020 12:58 PM EXTRUDING PRESS ADJUSTER): He is on lipitor 20 mg= TC 151/HDL 41/ TG 105/ LDL 89 He has been averaging in the 80 range the past 3 years so am going to the 40 mg dosing to get it down below 70 as he has no sx on the 20 Assessment & Plan (08/17/2019 12:02 PM EXTRUDING PRESS ADJUSTER): TC 137/LDL 79 on lipitor 20 mg and at goal Assessment & Plan (02/08/2019 1:08 PM CDT): His LDL is at goal Presence of IVC filter 09/28/2018 Bruising 03/19/2017 Chronic anemia 03/19/2017 Edema 03/19/2017 Pulmonary embolism without acute cor pulmonale 0 02/10/2017 Assessment & Plan (07/28/2023 11:41 AM EXTRUDING PRESS ADJUSTER): - Hold warfarin - s/p IVC filter Assessment & Plan (07/21/2017 12:18 PM EXTRUDING PRESS ADJUSTER): Unfortunately, he needs anticoagulation. A recent venous [...] 01/20/2017 Assessment & Plan (08/17/2019 12:05 PM EXTRUDING PRESS ADJUSTER): 1. 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 Global left ventricular [...] 01/20/2017 Assessment & Plan (07/27/2023 2:41 PM EXTRUDING PRESS ADJUSTER): See Pulmonary Embolism Assessment & Plan (01/20/2017 [...] elective Lexiscan nuclear stress test over at [facility] which is convenient. If this is negative and since pulmonary is no from there mechanism. It may be worthwhile to consider some type of an alternate exercise program such as swimming, i.e. water aerobic Pure hypercholesterolemia 01/20/2017 Assessment & Plan (07/27/2023 2:42 PM EXTRUDING PRESS ADJUSTER): - Continue home Lipitor Assessment & Plan (02/08/2019 1:06 PM CDT): SCRIBED Cholesterol, Total l - h 151 SCRIBED HDL l - h 45 SCRIBED LDL l - h 87 SCRIBED Triglycerides l - h 95 His LDL is at goal on lipitor 20 mg a day Assessment & Plan (08/11/2018 10:31 AM EXTRUDING PRESS ADJUSTER): Lipid profile today=TC 170/ HDL 55/ TG [...] lipitor Assessment & Plan (07/21/2017 12:22 PM EXTRUDING PRESS ADJUSTER): Todays lipid profile= TC 151/ HDL 45/ [...] 01/02 Assessment & Plan (07/27/2023 2:47 PM EXTRUDING PRESS ADJUSTER): - BMI 44.94 kg/m2 on admission Assessment & Plan (02/08/2019 2:11 PM CDT): He continues to work with diet and exercise Assessment & Plan (08/11/2018 10:35 AM EXTRUDING PRESS ADJUSTER): He continues to work with calorie restriction and ambulation Assessment & Plan (01/27/2018 11:21 AM CDT): He works with diet, exercise limited as he walks with a cane Assessment & Plan (07/21/2017 12:31 PM EXTRUDING PRESS ADJUSTER): He continues to work with diet Assessment & Plan (02/10/2017 1:56 PM CDT): Need for wt loss discussed. Recs: 1) continue diet and lifestyle modifications. Metastatic neoplasm 07/18/2016 Benign paroxysmal positional vertigo 09/20/2015 Pulmonary embolism 08/09/2015 Paroxysmal atrial fibrillation 08/09/2015 Assessment & Plan (07/27/2023 2:57 PM EXTRUDING PRESS ADJUSTER): - Continue home flecainide - Continue home metoprolol - suppressed on warfarin, flecainide; follows with cardiology outpatient - last TTE in 2018 w/ LVEF 55% and no obvious structural issues Assessment & Plan (08/06/2021 12:26 PM EXTRUDING PRESS ADJUSTER): He has had no recurrences since last year; echo normal, So I made no changes He is protected with Warfarin, on tambocor and metoprolol which I would continue Assessment & Plan (08/15/2020 12:39 PM EXTRUDING PRESS ADJUSTER): He has had recurrent episodes of atrial [...] 07/12/2015 Assessment & Plan (07/28/2023 11:47 AM EXTRUDING PRESS ADJUSTER): - 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 since then per ID - doxycycline reordered Arthritis 12/17/2009 Hypertension 12/17/2009 Assessment & Plan (08/06/2021 12:26 PM EXTRUDING PRESS ADJUSTER): His BP remains at goal on the BB, so will continue Assessment & Plan (08/15/2020 12:34 PM EXTRUDING PRESS ADJUSTER): His blood pressure is at goal Assessment & Plan (08/17/2019 12:00 PM EXTRUDING PRESS ADJUSTER): His BP remains at goal Assessment & Plan (02/08/2019 1:05 PM CDT): His BP remains at goal Assessment & Plan (08/11/2018 10:26 AM EXTRUDING PRESS ADJUSTER): His BP is at goal Encounters Date Type Department Care Team Description 03/24/2025 1:30 PM CDT Office Visit [facility] [address] [place] [phone] Erika Alvares NP Paroxysmal atrial fibrillation (HCC) (Primary Dx); Chronic anticoagulation; Hospital discharge follow-up 02/27/2025 Orders Only [facility] [address] [place] [phone] Curtis Hughes MD 02/24/2025 Orders Only [facility] Health Information Management [address] [place] [address] Scanning, Provider 02/02/2025 Orders Only [facility] Health Information Management [address] [place] [address] Scanning, Provider from Last 3 Months Immunizations Immunization Administration [...] Hyperlipidemia Dysphagia Hypothyroidism Type 2 diabetes mellitus Hypertension GERD (gastroesophageal reflux disease) Arthritis Leg muscle spasm COPD (chronic obstructive pulmonary disease) Social History Tobacco Use Types Packs/Day Years [...] on file Legal Sex Male 3:18 AM EXTRUDING PRESS ADJUSTER Gender Identity Not on file Sexual Orientation Not on file Obstetrics History Last Filed Vital Signs Vital Sign Reading Time Taken Comments Blood Pressure 116/64 03/24/2025 1:15 PM CDT Pulse 59 03/24/2025 1:15 PM CDT Temperature 36.3 C (97.3 F) 09/07/2024 7:18 AM EXTRUDING PRESS ADJUSTER Respiratory Rate 18 09/07/2024 8:20 AM EXTRUDING PRESS ADJUSTER Oxygen Saturation 97% 03/24/2025 1:15 PM CDT Inhaled Oxygen Concentration - - Weight 153.8 kg (339 lb) 03/24/2025 1:15 PM CDT Height 188 cm (6' 2) 03/24/2025 1:15 PM CDT Body Mass Index 43.53 03/24/2025 1:15 PM CDT Plan of Treatment Health Maintenance Due Date Last Done Comments Albumin Creatinine Ratio, Urine 1942 Depression Screening 1942 Dilated Eye Exam 1942 Foot Exam 1942 Hepatitis B Screening 1960 Abdominal Aortic Aneurysm (A AA) Screen 10/07/2007 Well Visit 65+ 10/07/2007 Hemoglobin A1C 09/11/2019 03/11/2019 Lipid Panel 11/13/2021 11/13/2020, 08/03, 03/11/2019, Additional history exists eGFR 07/27/2024 07/27/2023, 07/04, 10/21/2016 Covid-19 Vaccine (4 - 2024-2 6 season) 2025 06/04/2021, 10/16/2020, 09/13/2020 Influenza Vaccine (#1) 2025 , 04/20/2023, 04/04/2020, Additional history exists Fall Risk Assessment 09/07/2025 09/07/2024 DTaP/Tdap/Td Vaccine (3 - Td or Tdap) 07/27/2033 07/27/2023, 05/10/2013, 01/24/2004 Pneumococcal vaccine 65+ Completed 018, 07/31/2016, 05/10/2013 Zoster Vaccine Completed 08/22/2019, 06/09/2019 Procedures Procedure Name Priority Date/Time Associated Diagnosis Comments CARDIOLOGY DOCUMENT SCAN Routine 02/26/2025 3:40 PM CDT CARDIOLOGY DOCUMENT SCAN Routine 02/25/2025 3:26 PM CDT SCAN - RADIOLOGY/IMAGING 02/24/2025 SCAN - RADIOLOGY/IMAGING 02/02/2025 EGFR STAT 07/27/2023 8:57 AM EXTRUDING PRESS ADJUSTER LIPID PANEL Routine 11/13/2020 8:46 AM CDT [...] CARDIAC SERVICES PROCEDURES F inal Result * SCAN - RADIOLOGY/IMAGING (02/24/2025) Anatomical Region Laterality Modality Other us Provider Scanning Final Result * SCAN - RADIOLOGY/IMAGING (02/02/2025) Anatomical Region Laterality Modality Other us Provider Scanning Final Result * eGFR (07/27/2023 8:57 AM EXTRUDING PRESS ADJUSTER) eGFR 60 >=60 mL/min/1. 73 m2 AMY [...] last reviewed 2021. Blood 07/27/2023 8:57 AM EXTRUDING PRESS ADJUSTER 07/27/2023 9:13 AM EXTRUDING PRESS ADJUSTER Carlota Blum MD LAB BLOOD ORDERABLES F inal Result [facility] [place] [address] * Lipid panel (11/13/2020 8:46 AM CDT) [...] LDL-C. Norberto BEDOLLA et al. TEGAN. 2013;310(19): 2479-6508 (http://education.[employer]/faq/MYM634) Chol/HDL ratio 3.1 <5.0 (calc) [facility] Non-HDL, (LDL+VLDL) 96 <130 mg/dL (calc) [facility] Comment: For patients with diabetes plus 1 major ASCVD risk factor, treating to a non-HDL-C goal of <100 mg/dL (LDL-C of <70 mg/dL) is considered a therapeutic option. 11/13/2020 8:46 AM CDT 11/13/2020 8:47 AM CDT Narrative [facility] - 11/14/2020 2:24 AM CDT FASTING:YES FASTING: YES Norberto Cordero DO LAB BLOOD ORDERABLES Final Result [facility] [address] [place] [address] * (ABNORMAL) Hemoglobin A1c (03/11/2019 12:48 PM CDT) Hgb A1C 7.5(H) 4.0 - 5.6 % [facility] Estimated Average Glucose 169 mg/dL [facility] Comment: The ADA recommends reporting an estimated Average Glucose (eAG) with all Hemoglobin A1c results using the equation derived from a study of 507 normal and diabetic adults. Minority populations were underrepresented and children were not included. (Diabetes Care 31:9249-3132, 2008). The eAG is not equivalent to a fasting glucose. Blood specimen (specimen) 03/11/2019 12:48 PM CDT 03/11/2019 12:59 PM CDT Avlaro Ortez DO LAB BLOOD ORDERABLES Fi nal Result AMY [facility] [place] [address] from Last 3 Months or Most Recently Relevant to Health Maintenance Insurance [facility] MEDICARE ADVANTAGE [facility] MEDICARE [facility] MEDICARE [facility] MEDICARE ADVANTAGE [address] MEDICARE ADVANTAGE Advance Directives For more information, please contact: [phone] * Full Code (Latest Code Status on File) Date Activated Date Inactivated Comments 09/07/2024 7:02 AM 09/07/2024 1:03 PM * Full Code Date Activated Date Inactivated Comments 01/22/2024 12:34 PM 01/22/2024 7:05 PM * Full Code Date Activated Date Inactivated Comments 07/27/2023 11:35 AM 07/29/2023 6:04 PM * Full Code Date Activated Date Inactivated Comments 03/11/2019 9:03 PM 03/16/2019 8:04 PM Care Teams Print Traffic Manager Relationship Specialty Start Date End Date Liset Haynes MD PCP - General Family Medicine 08/05/22
--- OUTSIDE RECORDS SUMMARY | 2025-04-17 09:14 | XMS_ITS ---
Author Organization [facility] Address [address] [place] [address] Care Team Providers Care Indoor Landscape Architect Name Role Phone Liset Haynes MD Primary Care Provider [phone] Active Problems Problem Noted Date Diagnosed Date Dysphagia 09/17/2023 Encounter for medication review 07/28/2023 Assessment & Plan (07/28/2023 1:21 PM DIRECTOR OF BUSINESS SYSTEMS): 07/28 medications reviewed and updated through contact with patient's [facility] SAH (subarachnoid hemorrhage) 07/27/2023 Assessment & Plan (07/29/2023 7:30 AM DIRECTOR OF BUSINESS SYSTEMS): - Neurosurgery consulted - Repeat head CT [...] & Plan (07/27/2023 2:21 PM DIRECTOR OF BUSINESS SYSTEMS): - PRS consulted - s/p repair with 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 - Bacitracin TID x 3 days, then vaseline - HOB elevation - Pending recovery or discharge, please call [phone] or [phone] to schedule follow-up within 1-2 weeks to be seen by an BURT Left knee pain 07/27/2023 Assessment & Plan (07/28/2023 12:59 PM DIRECTOR OF BUSINESS SYSTEMS): - XR left knee: negative for acute fracture Polycythemia 07/27/2023 Assessment & Plan (07/28/2023 12:59 PM DIRECTOR OF BUSINESS SYSTEMS): #coagulopathy - last PE in per chart [...] & Plan (07/27/2023 2:50 PM DIRECTOR OF BUSINESS SYSTEMS): - continue home levothyroxine Elevated red blood cell count 07/21/2023 Closed fracture of left distal fibula 03/11/2019 Overview (03/11/2019): Added automatically from request for surgery [id number] Acute pain due to trauma 03/11/2019 Type 2 diabetes mellitus, wi th long-term current use of insulin 03/11/2019 Assessment & Plan (07/28/2023 1:07 PM DIRECTOR OF BUSINESS SYSTEMS): #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, [...] & Plan (08/06/2021 12:23 PM DIRECTOR OF BUSINESS SYSTEMS): Cholesterol <200 mg/dL 142 137 R, CM [...] & Plan (08/15/2020 12:58 PM DIRECTOR OF BUSINESS SYSTEMS): He is on lipitor 20 mg= TC 151/HDL 41/ TG 105/ LDL 89 He has been averaging in the 80 range the past 3 years so am going to the 40 mg dosing to get it down below 70 as he has no sx on the 20 Assessment & Plan (08/17/2019 12:02 PM DIRECTOR OF BUSINESS SYSTEMS): TC 137/LDL 79 on lipitor 20 mg and at goal Assessment & Plan (02/08/2019 1:08 PM CDT): His LDL is at goal Presence of IVC filter 09/28/2018 Bruising 03/19/2017 Chronic anemia 03/19/2017 Edema 03/19/2017 Pulmonary embolism without acute cor pulmonale 0 02/10/2017 Assessment & Plan (07/28/2023 11:41 AM DIRECTOR OF BUSINESS SYSTEMS): - Hold warfarin - s/p IVC filter Assessment & Plan (07/21/2017 12:18 PM DIRECTOR OF BUSINESS SYSTEMS): Unfortunately, he needs anticoagulation. A recent venous [...] & Plan (08/17/2019 12:05 PM DIRECTOR OF BUSINESS SYSTEMS): 1. 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 Global left ventricular [...] & Plan (07/27/2023 2:41 PM DIRECTOR OF BUSINESS SYSTEMS): See Pulmonary Embolism Assessment & Plan (01/20/2017 [...] elective Lexiscan nuclear stress test over at [facility] which is convenient. If this is negative and since pulmonary is no from there mechanism. It may be worthwhile to consider some type of an alternate exercise program such as swimming, i.e. water aerobic Pure hypercholesterolemia 01/20/2017 Assessment & Plan (07/27/2023 2:42 PM DIRECTOR OF BUSINESS SYSTEMS): - Continue home Lipitor Assessment & Plan (02/08/2019 1:06 PM CDT): SCRIBED Cholesterol, Total l - h 151 SCRIBED HDL l - h 45 SCRIBED LDL l - h 87 SCRIBED Triglycerides l - h 95 His LDL is at goal on lipitor 20 mg a day Assessment & Plan (08/11/2018 10:31 AM DIRECTOR OF BUSINESS SYSTEMS): Lipid profile today=TC 170/ HDL 55/ TG [...] & Plan (07/21/2017 12:22 PM DIRECTOR OF BUSINESS SYSTEMS): Todays lipid profile= TC 151/ HDL 45/ [...] & Plan (07/27/2023 2:47 PM DIRECTOR OF BUSINESS SYSTEMS): - BMI 44.94 kg/m2 on admission Assessment & Plan (02/08/2019 2:11 PM CDT): He continues to work with diet and exercise Assessment & Plan (08/11/2018 10:35 AM DIRECTOR OF BUSINESS SYSTEMS): He continues to work with calorie restriction and ambulation Assessment & Plan (01/27/2018 11:21 AM CDT): He works with diet, exercise limited as he walks with a cane Assessment & Plan (07/21/2017 12:31 PM DIRECTOR OF BUSINESS SYSTEMS): He continues to work with diet Assessment & Plan (02/10/2017 1:56 PM CDT): Need for wt loss discussed. Recs: 1) continue diet and lifestyle modifications. Metastatic neoplasm 07/18/2016 Benign paroxysmal positional vertigo 09/20/2015 Pulmonary embolism 08/09/2015 Paroxysmal atrial fibrillation 08/09/2015 Assessment & Plan (07/27/2023 2:57 PM DIRECTOR OF BUSINESS SYSTEMS): - Continue home flecainide - Continue home metoprolol - suppressed on warfarin, flecainide; follows with cardiology outpatient - last TTE in 2019 w/ LVEF 55% and no obvious structural issues Assessment & Plan (08/06/2021 12:26 PM DIRECTOR OF BUSINESS SYSTEMS): He has had no recurrences since last year; echo normal, So I made no changes He is protected with Warfarin, on tambocor and metoprolol which I would continue Assessment & Plan (08/15/2020 12:39 PM DIRECTOR OF BUSINESS SYSTEMS): He has had recurrent episodes of atrial [...] & Plan (07/28/2023 11:47 AM DIRECTOR OF BUSINESS SYSTEMS): - 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 - has been on chronic suppressive doxycycline since then per ID - doxycycline reordered Arthritis 12/17/2009 Hypertension 12/17/2009 Assessment & Plan (08/06/2021 12:26 PM DIRECTOR OF BUSINESS SYSTEMS): His BP remains at goal on the BB, so will continue Assessment & Plan (08/15/2020 12:34 PM DIRECTOR OF BUSINESS SYSTEMS): His blood pressure is at goal Assessment & Plan (08/17/2019 12:00 PM DIRECTOR OF BUSINESS SYSTEMS): His BP remains at goal Assessment & Plan (02/08/2019 1:05 PM CDT): His BP remains at goal Assessment & Plan (08/11/2018 10:26 AM DIRECTOR OF BUSINESS SYSTEMS): His BP is at goal Current Treatment and Therapy Plans No current plan information found. Past Treatment and Therapy Plans No past plan information found. Lifetime Dose Tracking * Chemical Lifetime Dose Automatic Entry Manual Entr y DLP 1,419 mGycm 1,419 mGycm 0 mGycm
--- OUTSIDE RECORDS SUMMARY | 2025-04-17 09:14 | XMS_ITS | Encounter Summary ---
Author Organization [facility] Address [address] [facility] [place] [address] Phone Care Team Providers Care Batter Mixer Helper Name Role Phone Myron Diop MD Primary Care Provider [phone] Mayra Casper MD Unavailable [phone] Reason for Visit * Reason Comments Medication Refill Encounter Details Date Type Department Care Team (Late st Contact Info) Description 07/11/2020 Refill [facility] - Gastroenterology [facility] [address] [place] [address] Rosa Isela Boo Luz, PAC [address] [place] [address] Medication Refill Social History Tobacco Use Types [...] Job Start Date Job End Date retired-from [employer] Not on file Not on file Not on file documented as of this encounter Miscellaneous Notes * Telephone Encounter - Kelly Hodge CMA - 07/11/2020 1:17 PM PUBLIC RELATIONS PROFESSIONAL Patients was notified on 03/29/2020 that refills after that were to go to primary care provider. verbalized understanding IC RELATIONS PROFESSIONAL documented in this encounter Plan of Treatment Not on file documented as of this encounter Visit Diagnoses Not on filedocumented in this encounter Care Teams Batter Mixer Helper Relationship Specialty Start Date End Date Myron Diop MD [address] [place] [address] PCP - General Family Medicine 03/11/17 Mayra Casper MD [address] [place] [address] Consulting Physician Gastroenterology 07/30/17 documented as of this encounter
--- OUTSIDE RECORDS SUMMARY | 2025-04-17 09:14 | XMS_ITS | Clinical Summary ---
Author Organization [facility] Address [address] [place] [address] Care Team Providers Care Local Driver Name Role Phone Liset Haynes MD Primary Care Provider [phone] Allergies No known active allergies Medications amiodarone [...] Encounters Date Type Department Care Team Description 03/22/2025 External Device Data [facility] ABSTRACTION Provider, Abstract 03/21/2025 External Device Data [facility] AB[facility] Provider, Abstract 03/08/2025 External Device Data [facility] Provider, Abstract [...] kg (343 lb) 07/12/2024 1:0 3 PM HEALTH INFORMATION CLERK Patient is unable to step on scale,patient gave me a verbal current weight from recent. Height 188 cm (6' 2) 06/08/2018 8:37 AM HEALTH INFORMATION CLERK Body Mass Index 44.04 06/08/2018 8:37 AM HEALTH INFORMATION CLERK Plan of Treatment Upcoming Encounters Date Type Department Care Team (Late st Contact Info) Description 07/13/2025 1:00 PM HEALTH INFORMATION CLERK Office Visit [facility] Oncology and Hematology - Aureliano [address] [facility] [address] [place] [address] Kendall Wills MD [address] [facility] [address] [place] [address] Health Maintenance Due Date Last Done Comments DIABETES ANNUAL FOOT EXAM 1960 DIABETES ANNUAL RETINAL EXAM 1960 DIABETES MICROALBUMIN ANNUAL SCREEN 1960 LDL CHOLESTEROL ANNUAL 1960 RSV VACCINE (60+ or ) (1 - 1-dose 75+ series) 2017 DIABETES HBA1C Q 6 MONTHS 09/11/2019 03/11/2019 INFLUENZA VACCINE (#1) 2025 9, 06/07/2018, 05/11/2017 COVID-19 Vaccine ( - 2024- season) 2025, 09/13/2020 DTAP/TDAP/TD VACCINES (3 - T d or Tdap) 07/27/2033 07/27/2023, 05/10/2013, 01/24/2004 PNEUMOCOCCAL VACCINE 50+ YEARS Completed 0 08/03/2017, 07/31/2016, 05/10/2013 ZOSTER VACCINE Completed 08/22/2019, 06/09/2019 Insurance [employer] PPO [employer] AETNA PPO MCR Care Teams Local Driver Relationship Specialty Start Date End Date Liset Haynes MD [address] [place] [phone] PCP - General Family Practice 01/06/23
--- OUTSIDE RECORDS SUMMARY | 2025-04-17 09:14 | XMS_ITS | Clinical Summary ---
Author Organization [facility] Address [address], [address] [address] Phone Care Team Providers Care Transactional Attorney Name Role Phone Christopher Diop MD Primary Care Provider [phone] Mayra Casper MD Unavailable [phone] Allergies No known active allergies Medications tamsulosin [...] Tabs by mouth daily. Active Probiotic Product (Railpod HEALTH PO) Take by mouth. Acti ve [...] Job Start Date Job End Date retired-from [employer] Not on file Not on file Not [...] of 2) 10/17/2019 08/22/2019 Influenza Immunization (#1) 2025 09/0 09/2019, 06/07/2018, 05/11/2017 SARS-COV-2 Immunization ( season) 2025 06/04/2021, 10/16/2020, 09/13/2020 DTaP/Tdap/Td Immunization Discontinued 2012, [...] age to complete this topic Care Teams Transactional Attorney Relationship Specialty Start Date End Date Christopher Diop MD [address] [place] [address] PCP - General Family Medicine 03/11/17 Mayra Casper MD [address] [place] [address] Consulting Physician Gastroenterology 07/30/17
--- OUTSIDE RECORDS SUMMARY | 2025-04-17 09:14 | XMS_ITS | Encounter Summary ---
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 Gender Identity Not on file Sexual Orientation Not on file documented as of this encounter Plan of Treatment Not on file documented as of this encounter Procedures Procedure Name Priority Date/Time Associated Diagnosis Comments SCAN - RADIOLOGY/IMAGING 09/05/2023 documented in this encounter Results * SCAN - RADIOLOGY/IMAGING (09/05/2023) Anatomical Region Laterality Modality Other us Provider Scanning Edited Result - Final documented in this encounter Visit Diagnoses Not on filedocumented in this encounter Care Teams Loft Patternmaker Relationship Specialty Start Date End Date Liset Haynes MD PCP - General Family Medicine 08/05/22 documented as of this encounter
[2025-04-17 09:43] LABS: Anion Gap 7 mmol/L (4-12); Blood Urea Nitrogen 13 mg/dL (9-20); Calcium 9.3 mg/dL (8.4-10.2); Carbon Dioxide 30 mmol/L (22-30); Chloride 106 mmol/L (98-107); Estimated Glomerular Filt Rate > 60; Glucose 95 mg/dL (65-110); Osmolality Calculated 296 mOsm/kg (285-295); Potassium 4.8 mmol/L (3.4-5.0); Sodium 143 mmol/L (137-145)
== END 2025-04-17 08:44 | disposition home or self-care (01) ==
LOC: CHSLAB 08:44
PROVIDERS: PCP Family Medicine; Visit Provider Family Medicine
DX: E87.5 Hyperkalemia (principal)
CPT/HCPCS: 36415; 80048

== ENCOUNTER 2025-04-21 08:56 | Emergency (ER) | payer MEDICARE, SELFPAY ==
--- NOTE | ~2025-04-21 | XR_ITS ---
EXAMINATION: XR chest 1V portable COMPARISON: No comparisons available. HISTORY: weakness FINDINGS: The lungs are clear, no effusion. No pneumothorax. Heart is normal size. Mediastinal and hilar contours are within normal limits. Bony thorax no acute abnormality. Miscellaneous: None Impression: No acute cardiopulmonary abnormality. Reviewed, dictated and finalized at location A. Impression: No acute cardiopulmonary abnormality.
--- NOTE | ~2025-04-21 | CT_ITS ---
CT ABDOMEN AND PELVIS WITHOUT CONTRAST Clinical History: hematuria Comparison: 02/02/2025 Technique: Unenhanced axial images lung bases to symphysis pubis Coronal, sagittal reformats CT images acquired with automatic exposure control for dose reduction DLP: 1713 mGy-cm Findings: Without intravenous contrast, sensitivity for detecting visceral parenchymal abnormalities decreased. Lung bases: Scarring. Visualized heart and pericardium: Coronary artery calcifications. Liver: Unremarkable. Gallbladder: Small stones. Spleen: Removed. Pancreas: Near-complete atrophy. Adrenal glands: Unremarkable. Kidneys: Right kidney- No hydronephrosis. 2 mm stone. 2 prominent cysts. Left kidney- No hydronephrosis. No renal stones. A few cysts. Distal esophagus/stomach: Unremarkable. Small bowel loops: Normal caliber and wall thickness. Proximal duodenal diverticulum Colon: Diverticula. Normal caliber and wall thickness. Normal RLQ appendix. Nodes: No enlarged nodes. Peritoneum: No ascites. No free intraperitoneal air. Urinary bladder: Multiple small diverticula. Prostate: Enlarged. Bones: No acute bony abnormality. Diffuse idiopathic skeletal hyperostosis Soft tissues: Abdominal wall hernia mesh repair. 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 Aortoiliac atherosclerotic disease. IVC: Filter, with extraluminal stress IMPRESSION: 1. No acute findings. 2. 2 mm stone right kidney. No hydronephrosis. 3. Prostate enlarged. 4. Urinary bladder with multiple diverticula. Reviewed, dictated and finalized at location R.
[2025-04-21 09:01] VITALS: BP 136/77; PULSE 97; RESP 20; TEMP 36.4; O2SAT 98
--- NOTE | 2025-04-21 09:07 | ECG_ITS ---
Test Date: 2025-04-21 09:10:53 Measurements Intervals [place] Rate: 84 P: 0 NC: 0 QRS: 25 QRSD: 99 T: 32 QT: 375 QTc: 444 Interpretive Statements ATRIAL FIBRILLATION /FLUTTER LOW QRS VOLTAGE IN PRECORDIAL LEADS [QRS DEFLECTION < 1.0 mV IN CHEST LEADS] ABNORMAL ECG Electronically Signed On 04-21-2025 13:04:12 CDT by Chance Gunter M.D.
--- OUTSIDE RECORDS SUMMARY | 2025-04-21 09:21 | XMS_ITS | Clinical Summary ---
Author Organization [facility] Address [address] [place] [address] Care Team Providers Care Build Master Name Role Phone Liset Haynes MD Primary [...] 07/28/2023 Assessment & Plan (07/28/2023 1:21 PM TELEVISION INSTALLER): 07/28 medications reviewed and updated through contact with patient's [facility] pharmacy SAH (subarachnoid hemorrhage) 07/27/2023 Assessment & Plan (07/29/2023 7:30 AM TELEVISION INSTALLER): - Neurosurgery consulted - Repeat head CT [...] 07/27/2023 Assessment & Plan (07/27/2023 2:21 PM TELEVISION INSTALLER): - PRS consulted - s/p repair with 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 - Bacitracin TID x 3 days, then vaseline - HOB elevation - Pending recovery or discharge, please call [phone] or [phone] to schedule follow-up within 1-2 weeks to be seen by an BURT Left knee pain 07/27/2023 Assessment & Plan (07/28/2023 12:59 PM TELEVISION INSTALLER): - XR left knee: negative for acute fracture Polycythemia 07/27/2023 Assessment & Plan (07/28/2023 12:59 PM TELEVISION INSTALLER): #coagulopathy - last PE in per chart [...] 07/27/2023 Assessment & Plan (07/27/2023 2:50 PM TELEVISION INSTALLER): - continue home levothyroxine Elevated red blood cell count 07/21/2023 Closed fracture of left distal fibula 03/11/2019 Overview (03/11/2019): Added automatically from request for surgery [id number] Acute pain due to trauma 03/11/2019 Type 2 diabetes mellitus, wi th long-term current use of insulin 03/11/2019 Assessment & Plan (07/28/2023 1:07 PM TELEVISION INSTALLER): #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, [...] 02/08/2019 Assessment & Plan (08/06/2021 12:23 PM TELEVISION INSTALLER): Cholesterol <200 mg/dL 142 137 R, CM 116 Low R 118 R, CM HDL > OR = 40 mg/dL 46 41 R, CM 34 Low R 27 Low R, CM Triglycerides <150 mg/dL 84 83 R, CM 80 R 117 R, CM LDL mg/dL (calc) 80 He remains at goal on lipitor 40 mg so will continue Assessment & Plan (08/15/2020 12:58 PM TELEVISION INSTALLER): He is on lipitor 20 mg= TC 151/HDL 41/ TG 105/ LDL 89 He has been averaging in the 80 range the past 3 years so am going to the 40 mg dosing to get it down below 70 as he has no sx on the 20 Assessment & Plan (08/17/2019 12:02 PM TELEVISION INSTALLER): TC 137/LDL 79 on lipitor 20 mg and at goal Assessment & Plan (02/08/2019 1:08 PM CDT): His LDL is at goal Presence of IVC filter 09/28/2018 Bruising 03/19/2017 Chronic anemia 03/19/2017 Edema 03/19/2017 Pulmonary embolism without acute cor pulmonale 0 02/10/2017 Assessment & Plan (07/28/2023 11:41 AM TELEVISION INSTALLER): - Hold warfarin - s/p IVC filter Assessment & Plan (07/21/2017 12:18 PM TELEVISION INSTALLER): Unfortunately, he needs anticoagulation. A recent venous [...] 01/20/2017 Assessment & Plan (08/17/2019 12:05 PM TELEVISION INSTALLER): 1. 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 Global left ventricular [...] 01/20/2017 Assessment & Plan (07/27/2023 2:41 PM TELEVISION INSTALLER): See Pulmonary Embolism Assessment & Plan (01/20/2017 [...] elective Lexiscan nuclear stress test over at [facility] which is convenient. If this is negative and since pulmonary is no from there mechanism. It may be worthwhile to consider some type of an alternate exercise program such as swimming, i.e. water aerobic Pure hypercholesterolemia 01/20/2017 Assessment & Plan (07/27/2023 2:42 PM TELEVISION INSTALLER): - Continue home Lipitor Assessment & Plan (02/08/2019 1:06 PM CDT): SCRIBED Cholesterol, Total l - h 151 SCRIBED HDL l - h 45 SCRIBED LDL l - h 87 SCRIBED Triglycerides l - h 95 His LDL is at goal on lipitor 20 mg a day Assessment & Plan (08/11/2018 10:31 AM TELEVISION INSTALLER): Lipid profile today=TC 170/ HDL 55/ TG [...] lipitor Assessment & Plan (07/21/2017 12:22 PM TELEVISION INSTALLER): Todays lipid profile= TC 151/ HDL 45/ [...] 01/02 Assessment & Plan (07/27/2023 2:47 PM TELEVISION INSTALLER): - BMI 44.94 kg/m2 on admission Assessment & Plan (02/08/2019 2:11 PM CDT): He continues to work with diet and exercise Assessment & Plan (08/11/2018 10:35 AM TELEVISION INSTALLER): He continues to work with calorie restriction and ambulation Assessment & Plan (01/27/2018 11:21 AM CDT): He works with diet, exercise limited as he walks with a cane Assessment & Plan (07/21/2017 12:31 PM TELEVISION INSTALLER): He continues to work with diet Assessment & Plan (02/10/2017 1:56 PM CDT): Need for wt loss discussed. Recs: 1) continue diet and lifestyle modifications. Metastatic neoplasm 07/18/2016 Benign paroxysmal positional vertigo 09/20/2015 Pulmonary embolism 08/09/2015 Paroxysmal atrial fibrillation 08/09/2015 Assessment & Plan (07/27/2023 2:57 PM TELEVISION INSTALLER): - Continue home flecainide - Continue home metoprolol - suppressed on warfarin, flecainide; follows with cardiology outpatient - last TTE in 2018 w/ LVEF 55% and no obvious structural issues Assessment & Plan (08/06/2021 12:26 PM TELEVISION INSTALLER): He has had no recurrences since last year; echo normal, So I made no changes He is protected with Warfarin, on tambocor and metoprolol which I would continue Assessment & Plan (08/15/2020 12:39 PM TELEVISION INSTALLER): He has had recurrent episodes of atrial [...] 07/12/2015 Assessment & Plan (07/28/2023 11:47 AM TELEVISION INSTALLER): - 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 then per ID - doxycycline reordered Arthritis 12/17/2009 Hypertension 12/17/2009 Assessment & Plan (08/06/2021 12:26 PM TELEVISION INSTALLER): His BP remains at goal on the BB, so will continue Assessment & Plan (08/15/2020 12:34 PM TELEVISION INSTALLER): His blood pressure is at goal Assessment & Plan (08/17/2019 12:00 PM TELEVISION INSTALLER): His BP remains at goal Assessment & Plan (02/08/2019 1:05 PM CDT): His BP remains at goal Assessment & Plan (08/11/2018 10:26 AM TELEVISION INSTALLER): His BP is at goal Encounters Date Type Department Care Team Description 03/24/2025 1:30 PM CDT Office Visit [facility] Medical [facility] Cardiology [address] [place] [phone] Erika Alvares NP Paroxysmal atrial fibrillation (HCC) (Primary Dx); Chronic anticoagulation; Hospital discharge follow-up 02/27/2025 Orders Only [facility] Cardiology [address] [place] [phone] Curtis Hughes MD 02/24/2025 Orders Only [facility] Health Information Management [address] [place] [address] Scanning, Provider 02/02/2025 Orders Only [facility] Health Information Management [address] [place] [address] Scanning, Provider from Last 3 Months Immunizations [...] on file Legal Sex Male 3:18 AM TELEVISION INSTALLER Gender Identity Not on file Sexual Orientation Not on file Obstetrics History Last Filed Vital Signs Vital Sign Reading Time Taken Comments Blood Pressure 116/64 03/24/2025 1:15 PM CDT Pulse 59 03/24/2025 1:15 PM CDT Temperature 36.3 C (97.3 F) 09/07/2024 7:18 AM TELEVISION INSTALLER Respiratory Rate 18 09/07/2024 8:20 AM TELEVISION INSTALLER Oxygen Saturation 97% 03/24/2025 1:15 PM CDT [...] RADIOLOGY/IMAGING 02/02/2025 EGFR STAT 07/27/2023 8:57 AM TELEVISION INSTALLER LIPID PANEL Routine 11/13/2020 8:46 AM CDT [...] Final Result * eGFR (07/27/2023 8:57 AM TELEVISION INSTALLER) eGFR 60 >=60 mL/min/1. 73 m2 AMY [...] last reviewed 2021. Blood 07/27/2023 8:57 AM TELEVISION INSTALLER 07/27/2023 9:13 AM TELEVISION INSTALLER Carlota Blum MD LAB BLOOD ORDERABLES F inal Result AMY SOTO [facility] Department [place] [address] * Lipid panel (11/13/2020 8:46 AM CDT) [...] LDL-C. Norberto BEDOLLA et al. TEGAN. 2013;310(19): 3834-0753 (http://education.[employer]/faq/AGN052) Chol/HDL ratio 3.1 <5.0 (calc) [facility] Non-HDL, (LDL+VLDL) 96 <130 mg/dL (calc) [facility] Comment: For patients with diabetes plus 1 major ASCVD risk factor, treating to a non-HDL-C goal of <100 mg/dL (LDL-C of <70 mg/dL) is considered a therapeutic option. 11/13/2020 8:46 AM CDT 11/13/2020 8:47 AM CDT Narrative [facility] - 11/14/2020 2:24 AM CDT FASTING:YES FASTING: YES Norberto Cordero DO LAB BLOOD ORDERABLES Final Result LE[facility] [address] [place] [address] * (ABNORMAL) Hemoglobin A1c (03/11/2019 12:48 PM CDT) Hgb A1C 7.5(H) 4.0 - 5.6 % [facility] Estimated Average Glucose 169 mg/dL [facility] Comment: The ADA recommends reporting an estimated Average Glucose (eAG) with all Hemoglobin A1c results using the equation derived from a study of 507 normal and diabetic adults. Minority populations were underrepresented and children were not included. (Diabetes Care 31:4195-2673, 2008). The eAG is not equivalent to a fasting glucose. Blood specimen (specimen) 03/11/2019 12:48 PM CDT 03/11/2019 12:59 PM CDT Alvaro Ortez DO LAB BLOOD ORDERABLES Fi nal Result AMY BJ [facility] Department [place] [address] from Last 3 Months or Most Recently Relevant to Health Maintenance Insurance [facility] MEDICARE ADVANTAGE [facility] MEDICARE [facility] MEDICARE [facility] MEDICARE ADVANTAGE [address] MEDICARE ADVANTAGE Advance Directives For more information, please contact: [phone] * Full Code (Latest Code Status on File) Date Activated Date Inactivated Comments 09/07/2024 7:02 AM 09/07/2024 1:03 PM * Full Code Date Activated Date Inactivated Comments 01/22/2024 12:34 PM 01/22/2024 7:05 PM * Full Code Date Activated Date Inactivated Comments 07/27/2023 11:35 AM 07/29/2023 6:04 PM * Full Code Date Activated Date Inactivated Comments 03/11/2019 9:03 PM 03/16/2019 8:04 PM Care Teams Build Master Relationship Specialty Start Date End Date Liset Haynes MD PCP - General Family Medicine 08/05/22
--- OUTSIDE RECORDS SUMMARY | 2025-04-21 09:21 | XMS_ITS | Encounter Summary ---
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
--- OUTSIDE RECORDS SUMMARY | 2025-04-21 09:21 | XMS_ITS | Encounter Summary ---
Author Organization [facility] Address [address] [place] [address] Care Team Providers Care Web Designer Name Role Phone Liset Haynes MD Primary Care Provider Encounter Details Date Type Department Care Team (Late Contact Info) Description 04/18/2025 External Device Data [facility] ABSTRACTION Provider, Abstract [...] Department Care Team (Late Contact Info) Description 07/13/2025 1:00 PM SEASONAL GREENERY BUNDLER Office Visit [facility] Oncology and Hematology - [place] [address] [place] [phone] Kendall Wills MD [address] [place] [phone] documented as of this encounter Visit Diagnoses Not on filedocumented in this encounter Care Teams Web Designer Relationship Specialty Start Date End Date Liset Haynes MD [address] [place] [address] PCP - General Family Practice 01/06/23 documented as of this encounter
--- OUTSIDE RECORDS SUMMARY | 2025-04-21 09:21 | XMS_ITS | Encounter Summary ---
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
--- OUTSIDE RECORDS SUMMARY | 2025-04-21 09:21 | XMS_ITS ---
Author Organization [facility] Address [address] [place] [address] Care Team Providers Care Bankruptcy Legal Assistant Name Role Phone Liset Haynes MD Primary Care Provider [phone] Active Problems Problem Noted Date Diagnosed Date Dysphagia 09/17/2023 Encounter for medication review 07/28/2023 Assessment & Plan (07/28/2023 1:21 PM MECHANICAL SERVICE TECHNICIAN): 07/28 medications reviewed and updated through contact with patient's [facility] (subarachnoid hemorrhage) 07/27/2023 Assessment & Plan (07/29/2023 7:30 AM MECHANICAL SERVICE TECHNICIAN): - Neurosurgery consulted - Repeat head CT [...] 07/27/2023 Assessment & Plan (07/27/2023 2:21 PM MECHANICAL SERVICE TECHNICIAN): - PRS consulted - s/p repair with 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 - Bacitracin TID x 3 days, then vaseline - HOB elevation - Pending recovery or discharge, please call [phone] or [phone] to schedule follow-up within 1-2 weeks to be seen by an BURT Left knee pain 07/27/2023 Assessment & Plan (07/28/2023 12:59 PM MECHANICAL SERVICE TECHNICIAN): - XR left knee: negative for acute fracture Polycythemia 07/27/2023 Assessment & Plan (07/28/2023 12:59 PM MECHANICAL SERVICE TECHNICIAN): #coagulopathy - last PE in per chart [...] 07/27/2023 Assessment & Plan (07/27/2023 2:50 PM MECHANICAL SERVICE TECHNICIAN): - continue home levothyroxine Elevated red blood cell count 07/21/2023 Closed fracture of left distal fibula 03/11/2019 Overview (03/11/2019): Added automatically from request for surgery [id number] Acute pain due to trauma 03/11/2019 Type 2 diabetes mellitus, wi th long-term current use of insulin 03/11/2019 Assessment & Plan (07/28/2023 1:07 PM MECHANICAL SERVICE TECHNICIAN): #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, [...] 02/08/2019 Assessment & Plan (08/06/2021 12:23 PM MECHANICAL SERVICE TECHNICIAN): Cholesterol <200 mg/dL 142 137 R, CM 116 Low R 118 R, CM HDL > OR = 40 mg/dL 46 41 R, CM 34 Low R 27 Low R, CM Triglycerides <150 mg/dL 84 83 R, CM 80 R 117 R, CM LDL mg/dL (calc) 80 He remains at goal on lipitor 40 mg so will continue Assessment & Plan (08/15/2020 12:58 PM MECHANICAL SERVICE TECHNICIAN): He is on lipitor 20 mg= TC 151/HDL 41/ TG 105/ LDL 89 He has been averaging in the 80 range the past 3 years so am going to the 40 mg dosing to get it down below 70 as he has no sx on the 20 Assessment & Plan (08/17/2019 12:02 PM MECHANICAL SERVICE TECHNICIAN): TC 137/LDL 79 on lipitor 20 mg and at goal Assessment & Plan (02/08/2019 1:08 PM CDT): His LDL is at goal Presence of IVC filter 09/28/2018 Bruising 03/19/2017 Chronic anemia 03/19/2017 Edema 03/19/2017 Pulmonary embolism without acute cor pulmonale 0 02/10/2017 Assessment & Plan (07/28/2023 11:41 AM MECHANICAL SERVICE TECHNICIAN): - Hold warfarin - s/p IVC filter Assessment & Plan (07/21/2017 12:18 PM MECHANICAL SERVICE TECHNICIAN): Unfortunately, he needs anticoagulation. A recent venous [...] 01/20/2017 Assessment & Plan (08/17/2019 12:05 PM MECHANICAL SERVICE TECHNICIAN): 1. 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 Global left ventricular [...] 01/20/2017 Assessment & Plan (07/27/2023 2:41 PM MECHANICAL SERVICE TECHNICIAN): See Pulmonary Embolism Assessment & Plan (01/20/2017 [...] elective Lexiscan nuclear stress test over at [facility] which is convenient. If this is negative and since pulmonary is no from there mechanism. It may be worthwhile to consider some type of an alternate exercise program such as swimming, i.e. water aerobic Pure hypercholesterolemia 01/20/2017 Assessment & Plan (07/27/2023 2:42 PM MECHANICAL SERVICE TECHNICIAN): - Continue home Lipitor Assessment & Plan (02/08/2019 1:06 PM CDT): SCRIBED Cholesterol, Total l - h 151 SCRIBED HDL l - h 45 SCRIBED LDL l - h 87 SCRIBED Triglycerides l - h 95 His LDL is at goal on lipitor 20 mg a day Assessment & Plan (08/11/2018 10:31 AM MECHANICAL SERVICE TECHNICIAN): Lipid profile today=TC 170/ HDL 55/ TG [...] lipitor Assessment & Plan (07/21/2017 12:22 PM MECHANICAL SERVICE TECHNICIAN): Todays lipid profile= TC 151/ HDL 45/ [...] 01/02 Assessment & Plan (07/27/2023 2:47 PM MECHANICAL SERVICE TECHNICIAN): - BMI 44.94 kg/m2 on admission Assessment & Plan (02/08/2019 2:11 PM CDT): He continues to work with diet and exercise Assessment & Plan (08/11/2018 10:35 AM MECHANICAL SERVICE TECHNICIAN): He continues to work with calorie restriction and ambulation Assessment & Plan (01/27/2018 11:21 AM CDT): He works with diet, exercise limited as he walks with a cane Assessment & Plan (07/21/2017 12:31 PM MECHANICAL SERVICE TECHNICIAN): He continues to work with diet Assessment & Plan (02/10/2017 1:56 PM CDT): Need for wt loss discussed. Recs: 1) continue diet and lifestyle modifications. Metastatic neoplasm 07/18/2016 Benign paroxysmal positional vertigo 09/20/2015 Pulmonary embolism 08/09/2015 Paroxysmal atrial fibrillation 08/09/2015 Assessment & Plan (07/27/2023 2:57 PM MECHANICAL SERVICE TECHNICIAN): - Continue home flecainide - Continue home metoprolol - suppressed on warfarin, flecainide; follows with cardiology outpatient - last TTE in 2019 w/ LVEF 55% and no obvious structural issues Assessment & Plan (08/06/2021 12:26 PM MECHANICAL SERVICE TECHNICIAN): He has had no recurrences since last year; echo normal, So I made no changes He is protected with Warfarin, on tambocor and metoprolol which I would continue Assessment & Plan (08/15/2020 12:39 PM MECHANICAL SERVICE TECHNICIAN): He has had recurrent episodes of atrial [...] 07/12/2015 Assessment & Plan (07/28/2023 11:47 AM MECHANICAL SERVICE TECHNICIAN): - 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 then per ID - doxycycline reordered Arthritis 12/17/2009 Hypertension 12/17/2009 Assessment & Plan (08/06/2021 12:26 PM MECHANICAL SERVICE TECHNICIAN): His BP remains at goal on the BB, so will continue Assessment & Plan (08/15/2020 12:34 PM MECHANICAL SERVICE TECHNICIAN): His blood pressure is at goal Assessment & Plan (08/17/2019 12:00 PM MECHANICAL SERVICE TECHNICIAN): His BP remains at goal Assessment & Plan (02/08/2019 1:05 PM CDT): His BP remains at goal Assessment & Plan (08/11/2018 10:26 AM MECHANICAL SERVICE TECHNICIAN): His BP is at goal Current Treatment and Therapy Plans No current plan information found. Past Treatment and Therapy Plans No past plan information found. Lifetime Dose Tracking * Chemical Lifetime Dose Automatic Entry Manual Entr y DLP 1,419 mGycm 1,419 mGycm 0 mGycm
--- OUTSIDE RECORDS SUMMARY | 2025-04-21 09:21 | XMS_ITS | Encounter Summary ---
Author Organization [facility] Address [address] [facility] [place] [address] Phone Care Team Providers Care Deputy District Customs Director Name Role Phone Myron Diop MD Primary Care Provider Mayra Casper MD Unavailable [phone] Reason for Visit * Reason Comments Medication Refill Encounter Details Date Type Department Care Team (Late st Contact Info) Description 07/11/2020 Refill [facility] - Gastroenterology [facility] [address] [place] [address] Rosa Isela Boo Luz, PAC [address] [place] [address] Medication Refill Social History Tobacco Use Types [...] Job Start Date Job End Date retired-from [employer] Not on file Not on file Not on file documented as of this encounter Miscellaneous Notes * Telephone Encounter - Kelly Hodge CMA - 07/11/2020 1:17 PM TRAINING SPECIALIST Patients was notified on 03/29/2020 that refills after that were to go to primary care provider. verbalized understanding NING SPECIALIST documented in this encounter Plan of Treatment Not on file documented as of this encounter Visit Diagnoses Not on filedocumented in this encounter Care Teams Deputy District Customs Director Relationship Specialty Start Date End Date Myron Diop MD [address] [place] [address] PCP - General Family Medicine 03/11/17 Mayra Casper MD [address] [place] [address] Consulting Physician Gastroenterology 07/30/17 documented as of this encounter
--- OUTSIDE RECORDS SUMMARY | 2025-04-21 09:21 | XMS_ITS | Clinical Summary ---
Author Organization [facility] Address [address] [place] [address] Care Team Providers Care Diving Supervisor Name Role Phone Liset Haynes MD Primary Care Provider Allergies No known active allergies Medications amiodarone [...] Encounters Date Type Department Care Team Description 04/18/2025 External Device Data [facility]CTION Provider, Abstract 04/18/2025 External Device Data [facility] [place] Provider, Abstract 03/22/2025 External Device Data [facility] [place] Provider, [...] kg (343 lb) 07/12/2024 1:0 3 PM NUCLEAR WORKER TECHNICIAN Patient is unable to step on scale,patient gave me a verbal current weight from recent. Height 188 cm (6' 2) 06/08/2018 8:37 AM NUCLEAR WORKER TECHNICIAN Body Mass Index 44.04 06/08/2018 8:37 AM NUCLEAR WORKER TECHNICIAN Plan of Treatment Upcoming Encounters Date Type Department Care Team (Late st Contact Info) Description 07/13/2025 1:00 PM NUCLEAR WORKER TECHNICIAN Office Visit [facility] Oncology and Hematology - [place] [address] [facility] [address] [place] [address] Kendall Wills MD [address] [facility] [address] [place] [address] Health Maintenance Due Date Last Done Comments DIABETES ANNUAL FOOT EXAM 1960 DIABETES ANNUAL RETINAL EXAM 1960 DIABETES MICROALBUMIN ANNUAL SCREEN 1960 LDL CHOLESTEROL ANNUAL 1960 RSV VACCINE (60+ or ) (1 - 1-dose 75+ series) 2017 DIABETES HBA1C Q 6 MONTHS 09/11/2019 03/11/2019 INFLUENZA VACCINE (#1) 2025 9, 06/07/2018, 05/11/2017 COVID-19 Vaccine ( season) 2025, 09/13/2020 DTAP/TDAP/TD VACCINES (3 - T d or Tdap) 07/27/2033 07/27/2023, 05/10/2013, 01/24/2004 PNEUMOCOCCAL VACCINE 50+ YEARS Completed 0 08/03/2017, 07/31/2016, 05/10/2013 ZOSTER VACCINE Completed 08/22/2019, 06/09/2019 Insurance [employer] PPO [facility] AETNA PPO MCR Care Teams Diving Supervisor Relationship Specialty Start Date End Date Liset Haynes MD [address] [place] [address] PCP - General Family Practice 01/06/23
--- OUTSIDE RECORDS SUMMARY | 2025-04-21 09:21 | XMS_ITS | Encounter Summary ---
Author Organization [facility] Address [address] [place] [address] Care Team Providers Care Char Filter Tank Tender Name Role Phone Liset Haynes MD Primary Care Provider [phone] Encounter Details Date Type Department Care Team ([facility] st Contact Info) Description 09/06/2023 Orders Only [facility] [address] [place] [id number] Scanning, Provider Social History Tobacco Use Types [...] on file Legal Sex Male 3:18 AM HOT DOG VENDOR Gender Identity Not on file Sexual Orientation [...] on filedocumented in this encounter Care Teams Char Filter Tank Tender Relationship Specialty Start Date End Date Liset Haynes MD PCP - General Family Medicine 08/05/22 documented as of this encounter
--- OUTSIDE RECORDS SUMMARY | 2025-04-21 09:21 | XMS_ITS | Clinical Summary ---
Author Organization [facility] Address [address], [address] [address] Phone Care Team Providers Care Paleontology Teacher Name Role Phone Christopher Diop MD Primary Care Provider [phone] Mayra Casper MD Unavailable Allergies No known active allergies Medications tamsulosin [...] Tabs by mouth daily. Active Probiotic Product (Variab.ly HEALTH PO) Take by mouth. Acti ve [...] Job Start Date Job End Date retired-from [employer] Not on file Not on file Not [...] age to complete this topic Care Teams Paleontology Teacher Relationship Specialty Start Date End Date Christopher Diop MD [address] [place] [address] PCP - General Family Medicine 03/11/17 Mayra Casper MD [address] [place] [address] Consulting Physician Gastroenterology 07/30/17
--- NOTE | 2025-04-21 09:33 | ED.GENADULT ---
HPI - General Adult General Chief complaint: Weakness Stated complaint: WEAKNESS Time Seen by Provider: 04/21/25 09:04 History of Present Illness HPI narrative: 84-year-old male presents to the emergency department for evaluation for increased generalized weakness. Patient states that he felt fine yesterday and felt fine this morning when he woke up but as he was walking down the ramp to go to the car he felt increasing weakness. Patient states that he always has shortness of breath due to his inactivity. Patient states he did have a stumble at the ramp but denies any pain or injury from the fall. Patient denies striking his head denies loss of consciousness. Patient denies any worsening shortness breath than baseline, patient denies any chest pain. Patient denies any nausea vomiting diarrhea. Patient does report he did have an episode pneumonia back in March. Related Data Home Medications ?Medication ?Instructions ?Recorded ?Confirmed ?Last Taken ?Type flecainide 50 mg tablet 50 mg PO Q12H 06/21/19 03/14/25 02/06/25 09:30 History docusate sodium 50 mg capsule 50 mg PO BID 06/14/20 03/14/25 03/01/25 09:25 History loratadine 10 mg capsule 10 mg PO DAILY 06/14/20 03/14/25 03/01/25 09:00 History lactobacillus combination no.9 4 4,000 mmu cells PO DAILY 11/07/21 03/14/25 Unknown History billion cell capsule (Adult 50 Plus Probiotic) acetaminophen 650 mg 650 mg PO Q12H PRN pain 1-4 10/12/23 03/14/25 Unknown History tablet,extended release (Tylenol Arthritis Pain) alpha lipoic acid 200 mg capsule 200 mg PO DAILY 04/13/24 03/14/25 Unknown History cholecalciferol (vitamin D3) 50 50 mcg PO DAILY 04/13/24 03/14/25 Unknown History mcg (2,000 unit) capsule diclofenac sodium 1 % topical gel 4 g topical QID PRN joint pain 02/24/25 03/14/25 Unknown History Allergies Allergy/AdvReac Type Severity Reaction Status Date / Time No Known Drug Allergies Allergy Unknown Unknown Verified 04/21/25 09:12 [facility] Past Medical History Medical History Trochanteric bursitis, right hip Arthritis of elbow, left, degenerative Arthritis of right shoulder region Right shoulder strain Right arm pain Olecranon bursitis of right elbow Atrial fibrillation Rupture of left Achilles tendon Left ankle pain Constipation High cholesterol SOB (shortness of breath) Vision changes COPD (chronic obstructive pulmonary disease) Osteomyelitis, chronic BPH (benign prostatic hyperplasia) History of hemorrhoids History of pulmonary embolism History of deep vein thrombosis (DVT) of lower extremity Acute exacerbation of chronic obstructive airways disease Pneumonia due to COVID-19 virus Hypothyroidism determined by thyroid function test Weakness of both lower extremities Diabetes mellitus with neuropathy Ankle syndesmosis disruption Ankle fracture, bimalleolar, closed Infection of spine Chronic antibiotic suppression Chronic anticoagulation Recurrent deep vein thrombosis (DVT) Hypertension Spleen absent Rotator cuff arthropathy of right shoulder Surgical History Surgical History Total knee replacement status H/O bilateral cataract extraction H/O splenectomy S/P rotator cuff repair H/O colonoscopy with polypectomy History of pancreatic surgery Removal of pancreatic mass ([facility]) History of embolic filter insertion Hx of hernia repair History of back surgery x2 ([facility]), x1 ([facility]) H/O total knee replacement Bilaterally Family History Family History Grandparent Diabetes mellitus Father Family history of cardiovascular disease Intracranial aneurysm Mother Dvt femoral (deep venous thrombosis) Sibling Throat cancer Sister Acute myocardial infarction Brother Social History Social History Social History: The patient is and remarried; he lives with his . Patient was smoking up to 3 packs of cigarettes a day. 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 He drinks occasionally denies any illicit drugs. He is listed as a DNR. He nominates His to be the individual who would make medical decisions for him if he is unable. Smoking packs per day: 3 Smoking cigarettes per day: 60.0 Years smoked: 20 Smoking pack-years: 60.00 Smoking status: Former smoker Tobacco type: cigarettes Second hand tobacco smoke exposure: No Smoking end date: 04/13/80 Alcohol intake: never Drinks per week: 1 Substance use: never Substance use type: does not use Do You Feel Safe in your Home?: Yes Lack of Transportation: No Lack of Food: Never True Current Housing: I Have Housing Concerned About Future Housing: No Difficulty Paying Gas/Electric Bills: No Difficulty Paying for Meds: No Currently Unemployed: No Education: Trade/Vocational Certificate Difficulty w/ Childcare or Family Care: No Living arrangements: with family Occupation/Education: retired Gender identity (if verbalized by the patient): Male Additional gender identity comments: Lives with Sexual Orientation (if Verbalized by the Patient): Straight or Heterosexual Spiritual care concerns: No Agree to blood products: Yes Course Vital Signs Vital signs: Vital Signs Temperature 97.5 F L 04/21/25 09:01 Pulse Rate 97 04/21/25 09:01 Respiratory Rate 20 04/21/25 09:01 Blood Pressure 136/77 04/21/25 09:01 Pulse Oximetry 98 04/21/25 09:01 Oxygen Delivery Room Air 04/21/25 09:01 Temperature 97.5 F L 04/21/25 09:01 Pulse Rate 97 04/21/25 09:01 Respiratory Rate 20 04/21/25 09:01 Blood Pressure 136/77 04/21/25 09:01 Pulse Oximetry 98 04/21/25 09:01 Oxygen Delivery Room Air 04/21/25 09:01 Medical Decision Making MDM Narrative Medical decision making narrative: 84-year-old male presents emergency department for evaluation for episode of generalized weakness. Patient states that he does feel improved at time of re-evaluation. Patient is currently afebrile with no leukocytosis hemoglobin of 16.9. INR is 3.0. Patient has no significant acute abnormalities on his CMP UA was positive for blood but negative for infection. Patient was negative influenza RSV and for COVID, chest x-ray shows no acute cardiopulmonary abnormality. CT abdomen pelvis show a kidney stone with no hydronephrosis and no acute findings. On re-evaluation patient states he does feel improved is requesting be discharged home. Family feels this is the patient's typical baseline. Patient was able to ambulate it is baseline. Patient will be discharged home. Patient attributed his symptoms to anxiety related to his having difficulty finding the car door due to difficulty with his vision. Patient states he does feel improved and is requesting to be discharged home. Family was also comfortable the plan with the patient being discharged home. Differential Diagnosis Differential Diagnosis: Pneumonia, kidney stone, UTI, COVID, RSV, influenza, dehydration, Vital Signs Vital Signs: Vital Signs Temperature 97.5 F L 04/21/25 09:01 Pulse Rate 97 04/21/25 09:01 Respiratory Rate 20 04/21/25 09:01 Blood Pressure 136/77 04/21/25 09:01 Pulse Oximetry 98 04/21/25 09:01 Oxygen Delivery Room Air 04/21/25 09:01 Temperature 97.5 F L 04/21/25 09:01 Pulse Rate 97 04/21/25 09:01 Respiratory Rate 20 04/21/25 09:01 Blood Pressure 136/77 04/21/25 09:01 Pulse Oximetry 98 04/21/25 09:01 Oxygen Delivery Room Air 04/21/25 09:01 Lab Data Lab results reviewed: Yes I reviewed the patient's lab results. 04/21/25 10:13 04/21/25 10:13 Labs: Lab Results 04/21/25 04/21/25 04/21/25 Range/Units 09:13 10:13 11:14 WBC 7.3 (4.5-10.0) K/mm3 RBC 6.34 H (4.6-6.20) M/mm3 Hgb 16.9 (14.0-18.0) g/dL Hct 53.7 H (42.0-52.0) % MCV 84.7 (80-100) fl MCH 26.7 (26-34) pg MCHC 31.5 L (32-36) g/dl RDW 19.5 H (11.5-14.5) % Plt Count 371 (150-375) k/mm3 MPV 10.8 H (7.4-10.4) fl Immature Gran % (Auto) 1.1 H (0-0.5) % Neut % (Auto) 65.1 (45.5-73.1) % Lymph % (Auto) 17.9 L (18.3-44.2) % [place] % (Auto) 14.2 H (2.6-8.5) % Eos % (Auto) 1.2 (0-4.4) % Baso % (Auto) 0.5 (0.2-1.2) % Lymph # (Auto) 1.31 (0.9-3.2) K/mm3 [place] # (Auto) 1.0 H (0.1-0.6) K/mm3 Eos # (Auto) 0.1 (0-0.3) K/mm3 Baso # (Auto) 0.0 (0.0-0.1) K/mm3 Abs Immat Gran (auto) 0.08 H (0.00-0.031) K/mm3 Absolute Neuts (auto) 4.7 (1.3-6.7) K/mm3 Absolute Nucleated RBC 0.000 (0.0-0.012) K/mm3 Nucleated RBC % 0.0 (0.0-0.2) % PT 29.8 H (11.1-14.7) Seconds INR 3.0 APTT 31.5 (22.3-36.8) Seconds Sodium 141 (137-145) mmol/L Potassium 4.8 (3.4-5.0) mmol/L Chloride 107 (98-107) mmol/L Carbon Dioxide 29 (22-30) mmol/L Anion Gap 5 (4-12) mmol/L BUN 18 (9-20) mg/dL Creatinine 1.38 H (0.7-1.3) mg/dL Estim Creat Clear Calc 59 ml/min Estimated GFR 49 L (59 - ) Glucose 116 H (65-110) mg/dL POC Capillary Glucose 128 H (65-105) mg/dl Lactic Acid 1.7 (0.7-2.0) mmol/L Calcium 8.8 (8.4-10.2) mg/dL Total Bilirubin 0.8 (0.2-1.3) mg/dL AST 31 (17-59) U/L ALT 20 (6-50) U/L Alkaline Phosphatase 150 H (38-126) U/L Total Protein 7.6 (6.3-8.2) g/dL Albumin 3.7 (3.5-5.1) g/dL Urine Color Dark yellow (Yellow) Urine Appearance Clear (Clear) Urine pH 5.5 (5.0-9.0) Ur Specific [place] 1.025 (1.001-1.035) Urine Protein Trace (Negative) mg/dL Urine Glucose (UA) 3+ H (Negative) mg/dL Urine Ketones Trace H (Negative) mg/dL Ur Blood (Man) 1+ H (Negative) Urine Nitrate Negative (Negative) Urine Bilirubin Negative (Negative) Urine Urobilinogen 1.0 (<2.0) mg/dL Leukocyte Esterase Rfl Negative (Negative) JOSE ROBERTO/UL Urine RBC 21-50 H (0-2) /hpf Urine WBC 0-5 (0-3) /hpf Ur Squamous Epith Cells None seen (Few) /hpf Urine Bacteria None seen /hpf Urine Casts 3-5 Influenza A (RT-PCR) Negative (Negative) Influenza B (RT-PCR) Negative (Negative) RSV (RT-PCR) Negative (Negative) SARS-CoV-2 RNA (RT-PCR) Negative (Negative) Imaging Data Radiologist's impression: Impressions Chest X-Ray 04/21/25 09:38 Impression: No acute cardiopulmonary abnormality. Abdomen/Pelvis CT 04/21/25 12:17 IMPRESSION: 1. No acute findings. 2. 2 mm stone right kidney. No hydronephrosis. 3. Prostate enlarged. 4. Urinary bladder with multiple diverticula. Discharge Plan Discharge Clinical Impression: Physical deconditioning, Anxiety, Episode of generalized weakness Patient Disposition: Home Condition: Stable Instructions: Antibiotic Form Additional Instructions: Continue to have close follow-up with your primary care physician. If you have any worsening symptoms then please call or return to the emergency department. Patient Language: Vietnamese Prescriptions: No Action acetaminophen [Tylenol Arthritis Pain] 650 mg tablet extended release 650 mg PO Q12H PRN (Reason: pain 1-4) warfarin 5 mg tablet 5 mg PO DAILY Qty: 30 1RF Protocol: Dose Management Condition: Thursday Dose/Route: 6 mg Instruction: 1 x 1 mg tablet, 1 x 5 mg tablet Condition: Thursday Dose/Route: 5 mg Instruction: 1 x 5 mg tablet Condition: Thursday Dose/Route: 6 mg Instruction: 1 x 1 mg tablet, 1 x 5 mg tablet Condition: Thursday Dose/Route: 5 mg Instruction: 1 x 5 mg tablet Condition: Dose/Route: 6 mg Instruction: 1 x 1 mg tablet, 1 x 5 mg tablet Condition: Thursday Dose/Route: 5 mg Instruction: 1 x 5 mg tablet Condition: Thursday Dose/Route: 6 mg Instruction: 1 x 1 mg tablet, 1 x 5 mg tablet Protocol Text: Adjustment Start Date: Thursday04/07/25 INR Value: 1.8 INR Date: 04/07/25 Recheck Date: 09/12/25 flecainide 50 mg Tablet 50 mg PO Q12H triamcinolone acetonide 0.1 % cream 1 applic topical BID Qty: 80 0RF Patient Comments: left elbow Adult 50 Plus Probiotic 4 billion cell capsule 4,000 mmu cells PO DAILY Rx Instructions: administer with a meal (DME) wheeled walker XL See Rx Instructions .Route .MEDSUPPLY Qty: 1 0RF Rx Instructions: As directed (DME) knee high medium compression stockings See Rx Instructions .Route .MEDSUPPLY Qty: 1 0RF Rx Instructions: As directed daily for leg edema (DME) diabetic shoes See Rx Instructions .Route .MEDSUPPLY Qty: 1 0RF Rx Instructions: As directed (DME) FreeStyle [place] 3 Plus Sensor Device See Rx Instructions .Route Qty: 2 12RF Rx Instructions: As directed QID lidocaine [Salonpas (lidocaine)] 4 % adhesive patch,medicated 1 patch topical DAILY PRN (Reason: pain) Qty: 30 6RF Rx Instructions: Apply for 12 hours on and 12 hours off. finasteride 5 mg tablet 5 mg PO DAILY Qty: 30 1RF loratadine 10 mg Capsule 10 mg PO DAILY docusate sodium 50 mg Capsule 50 mg PO BID cholecalciferol (vitamin D3) 50 mcg (2,000 unit) Capsule 50 mcg PO DAILY alpha lipoic acid 200 mg Capsule 200 mg PO DAILY diclofenac sodium 1 % gel 4 g topical QID PRN (Reason: joint pain) Rx Instructions: apply to single knee, ankle, foot; for foot includes sole/toes/top of foot hydrocodone-acetaminophen 5-325 mg Tablet 1 tablet PO Q8H PRN (Reason: Moderate Pain (4-6)) Qty: 20 0RF (DME) NovoFine Plus 32 gauge x 1/6 needle See Rx Instructions .Route Qty: 100 5RF Rx Instructions: As directed TID to check glucose. (DME) OneTouch Ultra Test Strip See Rx Instructions .ROUTE .COMPLEX Qty: 100 3RF Dose Instruction: USE TO TEST BLOOD SUGAR THREE TIMES DAILY Rx Instructions: USE TO TEST BLOOD SUGAR THREE TIMES DAILY (DME) lancets [OneTouch Delica Plus Lancet] 33 gauge misc See Rx Instructions .Route Qty: 300 12RF Rx Instructions: As directed TID (DME) compression stockings knee high 15-20mmHG See Rx Instructions .Route .MEDSUPPLY Qty: 1 0RF Rx Instructions: As directed daily (DME) wheeled walker See Rx Instructions .Route .MEDSUPPLY Qty: 1 0RF Rx Instructions: As directed daily (DME) FreeStyle [place] 3 [place] Misc See Rx Instructions .Route Qty: 2 12RF Rx Instructions: As directed QID furosemide 20 mg tablet See Rx Instructions .ROUTE .COMPLEX Qty: 90 1RF Dose Instruction: TAKE 1 TABLET BY MOUTH EVERY DAY FOR 30 DAYS Rx Instructions: TAKE 1 TABLET BY MOUTH EVERY DAY FOR 30 DAYS metoprolol tartrate 25 mg tablet 12.5 mg PO BID Qty: 90 3RF levothyroxine 50 mcg tablet 50 mcg PO DAILY Qty: 90 2RF atorvastatin 20 mg tablet 20 mg PO DAILY Qty: 90 3RF Fiasp FlexTouch U-100 Insulin 100 unit/mL (3 mL) insulin pen See Rx Instructions subcut .COMPLEX Qty: 15 12RF Rx Instructions: Inject 8-10 units subcutaneously TID AC; omeprazole 20 mg capsule,delayed release(DR/EC) 20 mg PO DAILY Qty: 90 1RF baclofen 10 mg tablet 10 mg PO TID Qty: 270 1RF (DME) pen needle, diabetic 32 gauge x 5/32 needle See Rx Instructions .Route Qty: 100 12RF Rx Instructions: As directed four times daily with insulin (DME) skin registrar assistant adhesive bandage for Freestyle Santiago See Rx Instructions .Route .MEDSUPPLY Qty: 8 12RF Rx Instructions: As directed weekly azelastine 137 mcg (0.1 %) spray,non-aerosol 137 mcg intranasal Q12H Qty: 30 2RF Rx Instructions: 2 spray administer into each nostril. every morning and night warfarin 1 mg tablet 1 mg PO DAILY Qty: 90 0RF Protocol: Dose Management Condition: Thursday Dose/Route: 6 mg Instruction: 1 x 1 mg tablet, 1 x 5 mg tablet Condition: Thursday Dose/Route: 5 mg Instruction: 1 x 5 mg tablet Condition: Thursday Dose/Route: 6 mg Instruction: 1 x 1 mg tablet, 1 x 5 mg tablet Condition: Thursday Dose/Route: 5 mg Instruction: 1 x 5 mg tablet Condition: Dose/Route: 6 mg Instruction: 1 x 1 mg tablet, 1 x 5 mg tablet Condition: Thursday Dose/Route: 5 mg Instruction: 1 x 5 mg tablet Condition: Thursday Dose/Route: 6 mg Instruction: 1 x 1 mg tablet, 1 x 5 mg tablet Protocol Text: Adjustment Start Date: Thursday04/07/25 INR Value: 1.8 INR Date: 04/07/25 Recheck Date: 04/14/25 Rx Instructions: take with 5mg tab to equal 6mg Trelegy Ellipta 200-62.5-25 mcg blister with device 1 inh inhalation DAILY Qty: 60 5RF insulin glargine [Lantus U-100 Insulin] 100 unit/mL solution 44 unit subcut HS Qty: 10 2RF pregabalin 150 mg capsule 150 mg PO TID Qty: 270 1RF Jardiance 25 mg tablet 25 mg PO DAILY Qty: 90 1RF tamsulosin 0.4 mg capsule 0.8 mg PO DAILY Qty: 180 2RF Follow-up/Referrals: Liset Haynes MD [Primary Care Provider, Family Practice]
--- NOTE | 2025-04-21 09:54 | PC.NURSE ---
This RN attempted to straight stick pt. x2 with no success. Received flash, but pt. not perfusing adequately to fill blood tubes. JÚNIOR Villavicencio called to bedside for ultrasound IV placement and lab draw.
[2025-04-21 10:25] LABS: Hematocrit 53.7 % (42.0-52.0); Hemoglobin 16.9 g/dL (14.0-18.0); Immature Granulocyte Percent A 1.1 % (0-0.5); Lymphocytes Absolute Auto 1.31 K/mm3 (0.9-3.2); Mean Corpuscular HGB Conc 31.5 g/dl (32-36); Mean Corpuscular Hemoglobin 26.7 pg (26-34); Mean Corpuscular Volume 84.7 fl (80-100); Nucleated Red Blood Cells Absolute Auto 0.000 K/mm3 (0.0-0.012); Nucleated Red Blood Cells Perc 0.0 % (0.0-0.2); Platelet Count Result 371 k/mm3 (150-375); Red Blood Count 6.34 M/mm3 (4.6-6.20); White Blood Count 7.3 K/mm3 (4.5-10.0)
[2025-04-21 10:37] LABS: INR 3.0; Prothrombin Time 29.8 Seconds (11.1-14.7)
[2025-04-21 10:38] LABS: Partial Thromboplastin Time 31.5 Seconds (22.3-36.8)
--- NOTE | 2025-04-21 10:42 | PC.NURSE ---
Pt. educted that provider has ordered a urine sample. Pt. attempting to use urinal now.
[2025-04-21 10:43] LABS: Alanine Aminotransferase 20 U/L (6-50); Albumin Level 3.7 g/dL (3.5-5.1); Alkaline Phosphatase 150 U/L (38-126); Anion Gap 5 mmol/L (4-12); Aspartate Amino Transferase 31 U/L (17-59); Bilirubin,Total 0.8 mg/dL (0.2-1.3); Blood Urea Nitrogen 18 mg/dL (9-20); Calcium 8.8 mg/dL (8.4-10.2); Carbon Dioxide 29 mmol/L (22-30); Chloride 107 mmol/L (98-107); Estimated CRCL calculation 59 ml/min; Estimated Glomerular Filt Rate 49; Glucose 116 mg/dL (65-110); Potassium 4.8 mmol/L (3.4-5.0); Sodium 141 mmol/L (137-145); Total Protein 7.6 g/dL (6.3-8.2)
[2025-04-21 11:02] LABS: Influenza A QL RT-PCR Negative (Negative); Influenza B QL RT-PCR Negative (Negative); RSV RNA, RT-PCR Negative (Negative); SARS-CoV-2 RNA PCR Negative (Negative)
[2025-04-21 11:24] LABS: Add Urine Microscopic? YES; Appearance Urine Clear (Clear); Glucose Urine UA 3+ mg/dL (Negative); Leukocyte Esterase Ur Negative LEU/UL (Negative); Nitrate Urine Negative (Negative); Specific Grav Ur 1.025 (1.001-1.035)
--- NOTE | 2025-04-21 11:53 | PC.NURSE ---
Pt. to CT.
--- NOTE | 2025-04-21 13:35 | PC.NURSE ---
Pt. able to ambulate a short distance with his walker, bent over. and grandson at bedside who state that this is the pt. baseline. Pt. states he feels safe to go home.
== END 2025-04-21 13:54 | disposition home or self-care (01) ==
PROVIDERS: Emergency Provider Emergency Medicine; PCP Family Medicine
DX: R53.1 Weakness (principal); R53.81 Other malaise; F41.9 Anxiety disorder, unspecified; I10 Essential (primary) hypertension; I48.91 Unspecified atrial fibrillation; J44.9 Chronic obstructive pulmonary disease, unspecified; E78.00 Pure hypercholesterolemia, unspecified; E03.9 Hypothyroidism, unspecified; E11.40 Type 2 diabetes mellitus with diabetic neuropathy, unspecified; N40.0 Benign prostatic hyperplasia without lower urinary tract symptoms; M19.022 Primary osteoarthritis, left elbow; M19.011 Primary osteoarthritis, right shoulder; Z66 Do not resuscitate; Z96.653 Presence of artificial knee joint, bilateral; Z86.711 Personal history of pulmonary embolism; Z86.718 Personal history of other venous thrombosis and embolism; Z86.16 Personal history of COVID-19; Z86.0100 Personal history of colon polyps, unspecified; Z87.01 Personal history of pneumonia (recurrent); Z90.81 Acquired absence of spleen; Z98.42 Cataract extraction status, left eye; Z98.41 Cataract extraction status, right eye; Z87.891 Personal history of nicotine dependence; N20.0 Calculus of kidney; Z79.01 Long term (current) use of anticoagulants; Z79.84 Long term (current) use of oral hypoglycemic drugs; Z79.899 Other long term (current) drug therapy
CPT/HCPCS: 36415; 71045; 74176; 80053; 81001; 82948; 83605; 85025; 85610; 85730; 87040; 87637; 93005; 99284

== ENCOUNTER 2025-06-26 09:30 | Outpatient (CLI) | payer MEDICARE, SELFPAY ==
[2025-06-26 09:47] LABS: Hematocrit 52.5 % (37.0-46.0); Hemoglobin 16.7 g/dL (12.4-15.3); Immature Granulocyte Percent A 2.0 % (0.0-0.0); Lymphocytes Absolute Auto 1.76 K/mm3 (1.10-4.50); Mean Corpuscular HGB Conc 31.8 g/dL (32-36); Mean Corpuscular Hemoglobin 27.0 pg (27.0-31.0); Mean Corpuscular Volume 84.8 fL (78.0-102.0); Nucleated Red Blood Cells Absolute Auto 0.02 K/mm3 (0.00-0.00); Nucleated Red Blood Cells Perc 0.3 % (0-0.0); Platelet Count Result 286 K/mm3 (150-420); Red Blood Count 6.19 M/mm3 (4.70-6.10); White Blood Count 7.5 K/mm3 (4.8-10.8)
[2025-06-26 10:12] LABS: Alanine Aminotransferase 30 U/L (6-50); Albumin Level 3.7 g/dL (3.5-5.1); Alkaline Phosphatase 125 U/L (38-126); Anion Gap 9 mmol/L (4-12); Aspartate Amino Transferase 33 U/L (17-59); Bilirubin,Total 0.8 mg/dL (0.2-1.3); Blood Urea Nitrogen 23 mg/dL (9-20); Calcium 9.2 mg/dL (8.4-10.2); Carbon Dioxide 28 mmol/L (22-30); Chloride 106 mmol/L (98-107); Cholesterol 148 mg/dL (0-200); Estimated Glomerular Filt Rate 44; Glucose 100 mg/dL (65-110); HDL Direct 47 mg/dL; Osmolality Calculated 299 mOsm/kg (285-295); Potassium 4.7 mmol/L (3.4-5.0); Sodium 143 mmol/L (137-145); Total Protein 6.8 g/dL (6.3-8.2); Triglycerides 93 mg/dL (<150)
[2025-06-26 10:21] LABS: NT Pro B Type Natriuretic Pept 2000 pg/mL (19.9-100)
--- OUTSIDE RECORDS SUMMARY | 2025-06-26 10:40 | XMS_ITS | Clinical Summary ---
Author Organization [facility] Address [address], [address] [address] Phone Care Team Providers Care Personnel Supervisor Name Role Phone Christopher Diop MD Primary Care Provider [phone] Mayra Casper MD Unavailable Allergies No known [...] Tabs by mouth daily. Active Probiotic Product ([employer] HEALTH PO) Take by mouth. Acti ve [...] Job Start Date Job End Date retired-from [employer] Not on file Not on file Not [...] Comments Hepatitis C Virus (HCV) Screening 1940 Varicella Immunization (1 of 2 - 13+ 2-dose series) 10/07/1953 Respiratory Syncytial Virus (RSV) Immunization (Adult) (1 [...] age to complete this topic Care Teams Personnel Supervisor Relationship Specialty Start Date End Date Christopher Diop MD [address] [place] [id number] PCP - General Family Medicine 03/11/17 Mayra Casper MD [address] [place] [id number] Consulting Physician Gastroenterology 07/30/17
--- OUTSIDE RECORDS SUMMARY | 2025-06-26 10:40 | XMS_ITS | Clinical Summary ---
Author Organization [facility] Address [address] [place] [address] Care Team Providers Care Billboard Erector Name Role Phone Delaney Wise MD Primary Care Provider Allergies Active Allergy [...] 2 times daily, Informant: Pharmacy, Reported on 06/05/2025 insulin glargine (LANTUS SOLOSTAR) 100 unit/mL (3 mL) insulin pen inject by subcutaneous route as per insulin protocol 0 Syringe 0 04/21/20 16 Active metoprolol (LOPRESSOR) 25 mg tablet 1/2 tab bid 90 3 04/21/20 16 Active Additional Information Patient taking differently: 12.5 mg oral 2 times daily, Reported on 06/05/2025 levothyroxine (SYNTHROID) 50 mcg tablet Take 1 [...] per tablet Take by mouth daily 07/19/20 Active docusate sodium (COLACE) 50 mg capsuleIndicat [...] total) by mouth daily 02/17/20 25 Active flecainide (TAMBOCOR) 50 mg tablet TAKE 1 TABLET BY MOUTH TWICE A DAY 180 tablet 06/02/20 25 Active finasteride (PROSCAR) 5 mg tablet Take 1 tablet (5 mg total) by mouth daily Active flecainide (TAMBOCOR) 50 mg tablet TAKE 1 TABLET BY MOUTH TWICE A DAY 180 tablet 2 09/16/19 25 025 Discontinued Active Problems Problem Noted Date Diagnosed Date Dysphagia 09/17/2023 Encounter for medication review 07/28/2023 Assessment & Plan (07/28/2023 1:21 PM LINEN FOLDER): 07/28 medications reviewed and updated through [facility] SAH (subarachnoid hemorrhage) 07/27/2023 Assessment & Plan (07/29/2023 7:30 AM LINEN FOLDER): - Neurosurgery consulted - Repeat head CT [...] 07/27/2023 Assessment & Plan (07/27/2023 2:21 PM LINEN FOLDER): - PRS consulted - s/p repair with 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 - Bacitracin TID x 3 days, then vaseline - HOB elevation - Pending recovery or discharge, please call [phone] or [phone] to schedule follow-up within 1-2 weeks to be seen by an BURT Left knee pain 07/27/2023 Assessment & Plan (07/28/2023 12:59 PM LINEN FOLDER): - XR left knee: negative for acute fracture Polycythemia 07/27/2023 Assessment & Plan (07/28/2023 12:59 PM LINEN FOLDER): #coagulopathy - last PE in per chart [...] 07/27/2023 Assessment & Plan (07/27/2023 2:50 PM LINEN FOLDER): - continue home levothyroxine Elevated red blood cell count 07/21/2023 Closed fracture of left distal fibula 03/11/2019 Overview (03/11/2019): Added automatically from request for surgery [id number] Acute pain due to trauma 03/11/2019 Type 2 diabetes mellitus, wi th long-term current use of insulin 03/11/2019 Assessment & Plan (07/28/2023 1:07 PM LINEN FOLDER): #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, [...] Hyperlipidemia associated with type 2 diabetes m ellitus 02/08/2019 Assessment & Plan (08/06/2021 12:23 PM LINEN FOLDER): Cholesterol <200 mg/dL 142 137 R, CM 116 Low R 118 R, CM HDL > OR = 40 mg/dL 46 41 R, CM 34 Low R 27 Low R, CM Triglycerides <150 mg/dL 84 83 R, CM 80 R 117 R, CM LDL mg/dL (calc) 80 He remains at goal on lipitor 40 mg so will continue Assessment & Plan (08/15/2020 12:58 PM LINEN FOLDER): He is on lipitor 20 mg= TC 151/HDL 41/ TG 105/ LDL 89 He has been averaging in the 80 range the past 3 years so am going to the 40 mg dosing to get it down below 70 as he has no sx on the 20 Assessment & Plan (08/17/2019 12:02 PM LINEN FOLDER): TC 137/LDL 79 on lipitor 20 mg and at goal Assessment & Plan (02/08/2019 1:08 PM CDT): His LDL is at goal Presence of IVC filter 09/28/2018 Bruising 03/19/2017 Chronic anemia 03/19/2017 Edema 03/19/2017 Pulmonary embolism without acute cor pulmonale 0 02/10/2017 Assessment & Plan (07/28/2023 11:41 AM LINEN FOLDER): - Hold warfarin - s/p IVC filter Assessment & Plan (07/21/2017 12:18 PM LINEN FOLDER): Unfortunately, he needs anticoagulation. A recent venous [...] 01/20/2017 Assessment & Plan (08/17/2019 12:05 PM LINEN FOLDER): 1. 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 Global left ventricular [...] 01/20/2017 Assessment & Plan (07/27/2023 2:41 PM LINEN FOLDER): See Pulmonary Embolism Assessment & Plan (01/20/2017 [...] elective Lexiscan nuclear stress test over at [facility] which is convenient. If this is negative and since pulmonary is no from there mechanism. It may be worthwhile to consider some type of an alternate exercise program such as swimming, i.e. water aerobic Pure hypercholesterolemia 01/20/2017 Assessment & Plan (07/27/2023 2:42 PM LINEN FOLDER): - Continue home Lipitor Assessment & Plan (02/08/2019 1:06 PM CDT): SCRIBED Cholesterol, Total l - h 151 SCRIBED HDL l - h 45 SCRIBED LDL l - h 87 SCRIBED Triglycerides l - h 95 His LDL is at goal on lipitor 20 mg a day Assessment & Plan (08/11/2018 10:31 AM LINEN FOLDER): Lipid profile today=TC 170/ HDL 55/ TG [...] lipitor Assessment & Plan (07/21/2017 12:22 PM LINEN FOLDER): Todays lipid profile= TC 151/ HDL 45/ [...] 01/02 Assessment & Plan (07/27/2023 2:47 PM LINEN FOLDER): - BMI 44.94 kg/m2 on admission Assessment & Plan (02/08/2019 2:11 PM CDT): He continues to work with diet and exercise Assessment & Plan (08/11/2018 10:35 AM LINEN FOLDER): He continues to work with calorie restriction and ambulation Assessment & Plan (01/27/2018 11:21 AM CDT): He works with diet, exercise limited as he walks with a cane Assessment & Plan (07/21/2017 12:31 PM LINEN FOLDER): He continues to work with diet Assessment & Plan (02/10/2017 1:56 PM CDT): Need for wt loss discussed. Recs: 1) continue diet and lifestyle modifications. Metastatic neoplasm 07/18/2016 Benign paroxysmal positional vertigo 09/20/2015 Pulmonary embolism 08/09/2015 Paroxysmal atrial fibrillation 08/09/2015 Assessment & Plan (07/27/2023 2:57 PM LINEN FOLDER): - Continue home flecainide - Continue home metoprolol - suppressed on warfarin, flecainide; follows with cardiology outpatient - last TTE in 2019 w/ LVEF 55% and no obvious structural issues Assessment & Plan (08/06/2021 12:26 PM LINEN FOLDER): He has had no recurrences since last year; echo normal, So I made no changes He is protected with Warfarin, on tambocor and metoprolol which I would continue Assessment & Plan (08/15/2020 12:39 PM LINEN FOLDER): He has had recurrent episodes of atrial [...] 07/12/2015 Assessment & Plan (07/28/2023 11:47 AM LINEN FOLDER): - 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 since then per ID - doxycycline reordered Arthritis 12/17/2009 Hypertension 12/17/2009 Assessment & Plan (08/06/2021 12:26 PM LINEN FOLDER): His BP remains at goal on the BB, so will continue Assessment & Plan (08/15/2020 12:34 PM LINEN FOLDER): His blood pressure is at goal Assessment & Plan (08/17/2019 12:00 PM LINEN FOLDER): His BP remains at goal Assessment & Plan (02/08/2019 1:05 PM CDT): His BP remains at goal Assessment & Plan (08/11/2018 10:26 AM LINEN FOLDER): His BP is at goal Encounters Date Type Department Care Team Description 06/08/2025 Telephone [facility] Medicine Gastroenterology [address] [place] [address] [place] [address] Savanna Romo LPN Follow-up 06/05/2025 11:30 AM LINEN FOLDER Office Visit [facility] Medicine Gastroenterology [address] [place] [address] [place] [address] Leora Wilson MD Esophageal dysphagia (Primary Dx); Esophageal dysmotility; Warfarin anticoagulation from Last 3 Months Immunizations Immunization Administration [...] on file Legal Sex Male 3:18 AM LINEN FOLDER Gender Identity Not on file Sexual Orientation Not on file Last Filed Vital Signs Vital Sign Reading Time Taken Comments Blood Pressure 111/73 06/05/2025 11:23 AM LINEN FOLDER Pulse 65 06/05/2025 11:23 AM LINEN FOLDER Temperature 36.3 C (97.3 F) 09/07/2024 7:18 AM LINEN FOLDER Respiratory Rate 18 09/07/2024 8:20 AM LINEN FOLDER Oxygen Saturation 95% 06/05/2025 11:23 AM LINEN FOLDER Inhaled Oxygen Concentration - - Weight 153.8 kg (339 lb) 06/05/2025 11:23 AM LINEN FOLDER Height 188 cm (6' 2) 06/05/2025 11:23 AM LINEN FOLDER Body Mass Index 43.53 06/05/2025 11:23 AM LINEN FOLDER Plan of Treatment Upcoming Encounters Date Type Department Care Team (Latest Contact Info) Description 07/19/2025 1:15 PM LINEN FOLDER Hospital Encounter [facility] [address] [place] [address] Leora Wilson MD [address] [place] [address] 07/19/2025 1:15 PM LINEN FOLDER - 07/19/2025 1:45 PM LINEN FOLDER Surgery [facility] [address] [place] [address] Leora Wilson MD [address] [place] [address] ESOPHAGOGASTRODUODENOSCOPY Scheduled Procedures Name Priority Associated Diagnoses Date/Ti me ESOPHAGOGASTRODUODENOSCOPY Esophageal dysphagia 07/19/2025 1:15 PM LINEN FOLDER Health Maintenance Due Date Last Done Comments Albumin Creatinine Ratio, Urine 1942 Depression Screening 1942 Dilated Eye Exam 1942 Foot Exam 1942 Hepatitis B Screening 1960 Abdominal Aortic Aneurysm (A AA) Screen 10/07/2007 Well Visit 65+ 10/07/2007 Hemoglobin A1C 09/11/2019 03/11/2019 Lipid Panel 11/13/2021 11/13/2020, 08/03, 03/11/2019, Additional history exists eGFR 07/27/2024 07/27/2023, 07/04, 10/21/2016 Covid-19 Vaccine (2024-2 6 season) 2025 06/04/2021, 10/16/2020, 09/13/2020 Influenza Vaccine (#1) 2025 , 04/20/2023, 04/04/2020, Additional history exists Fall Risk Assessment 09/07/2025 09/07/2024 DTaP/Tdap/Td Vaccine (3 - Td or Tdap) 07/27/2033 07/27/2023, 05/10/2013, 01/24/2004 Pneumococcal vaccine 65+ Completed 018, 07/31/2016, 05/10/2013 Zoster Vaccine Completed 08/22/2019, 06/09/2019 Procedures Procedure Name Priority Date/Time Associated Diagnosis Comments EGFR STAT 07/27/2023 8:57 AM LINEN FOLDER LIPID PANEL Routine 11/13/2020 8:46 AM CDT HEMOGLOBIN A1C STAT 03/11/2019 12:48 PM CDT from Last 3 Months or Most Recently Relevant to Health Maintenance Results * eGFR (07/27/2023 8:57 AM LINEN FOLDER) eGFR 60 >=60 mL/min/1. 73 m2 AMY [...] last reviewed 2021. Blood 07/27/2023 8:57 AM LINEN FOLDER 07/27/2023 9:13 AM LINEN FOLDER us Carlota Blum MD LAB BLOOD ORDERABLES F inal Result [facility] [place] [address] * Lipid panel (11/13/2020 8:46 AM CDT) [...] LDL-C. Norberto BEDOLLA et al. TEGAN. 2013;310(19): 5645-8981 (http://education.ShelfFlip/faq/BBQ541) Chol/HDL ratio 3.1 <5.0 (calc) [facility] [...] DO LAB BLOOD ORDERABLES Final Result [facility] [address] [place] [address] * (ABNORMAL) Hemoglobin A1c (03/11/2019 12:48 PM CDT) Hgb A1C 7.5(H) 4.0 - 5.6 % [facility] Estimated Average Glucose 169 mg/dL [facility] Comment: The ADA recommends reporting an estimated Average Glucose (eAG) with all Hemoglobin A1c results using the equation derived from a study of 507 normal and diabetic adults. Minority populations were underrepresented and children were not included. (Diabetes Care 31:4943-6446, 2008). The eAG is not equivalent to a fasting glucose. Blood specimen (specimen) 03/11/2019 12:48 PM CDT 03/11/2019 12:59 PM CDT Alvaro Ortez DO LAB BLOOD ORDERABLES Fi nal Result [facility] [place] [address] from Last 3 Months or Most Recently Relevant to Health Maintenance Insurance [facility] MEDICARE ADVANTAGE [facility] MEDICARE FORMERLY [facility] MEDICARE FORMERLY [facility] MEDICARE [facility] MEDICARE Address: [facility] [id number] [place] [address] UHC MEDICARE ADVANTAGE [facility] MEDICARE ADVANTAGE Advance Directives For more information, please contact: [phone] * Full Code (Latest Code Status on File) Date Activated Date Inactivated Comments 09/07/2024 7:02 AM 09/07/2024 1:03 PM * Full Code Date Activated Date Inactivated Comments 01/22/2024 12:34 PM 01/22/2024 7:05 PM * Full Code Date Activated Date Inactivated Comments 07/27/2023 11:35 AM 07/29/2023 6:04 PM * Full Code Date Activated Date Inactivated Comments 03/11/2019 9:03 PM 03/16/2019 8:04 PM Care Teams Billboard Erector Relationship Specialty Start Date End Date Delaney Wise MD [address] [address] PCP - General Family Medicine 06/23/25
--- OUTSIDE RECORDS SUMMARY | 2025-06-26 10:40 | XMS_ITS ---
Author Organization [facility] Address [address] [place] [address] Care Team Providers Care Sales Account Director Name Role Phone Delaney Wise MD Primary Care Provider Active Problems Problem Noted Date Diagnosed Date Dysphagia 09/17/2023 Encounter for medication review 07/28/2023 Assessment & Plan (07/28/2023 1:21 PM GUM MACHINE FILLER): 07/28 medications reviewed and updated [facility] SAH (subarachnoid hemorrhage) 07/27/2023 Assessment & Plan (07/29/2023 7:30 AM GUM MACHINE FILLER): - Neurosurgery consulted - Repeat head CT [...] 07/27/2023 Assessment & Plan (07/27/2023 2:21 PM GUM MACHINE FILLER): - PRS consulted - s/p repair with 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 - Bacitracin TID x 3 days, then vaseline - HOB elevation - Pending recovery or discharge, please call [phone] or [phone] to schedule follow-up within 1-2 weeks to be seen by an BURT Left knee pain 07/27/2023 Assessment & Plan (07/28/2023 12:59 PM GUM MACHINE FILLER): - XR left knee: negative for acute fracture Polycythemia 07/27/2023 Assessment & Plan (07/28/2023 12:59 PM GUM MACHINE FILLER): #coagulopathy - last PE in per chart [...] 07/27/2023 Assessment & Plan (07/27/2023 2:50 PM GUM MACHINE FILLER): - continue home levothyroxine Elevated red blood cell count 07/21/2023 Closed fracture of left distal fibula 03/11/2019 Overview (03/11/2019): Added automatically from request for surgery [id number] Acute pain due to trauma 03/11/2019 Type 2 diabetes mellitus, wi long-term current use of insulin 03/11/2019 Assessment & Plan (07/28/2023 1:07 PM GUM MACHINE FILLER): #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, [...] 02/08/2019 Assessment & Plan (08/06/2021 12:23 PM GUM MACHINE FILLER): Cholesterol <200 mg/dL 142 137 R, CM 116 Low R 118 R, CM HDL > OR = 40 mg/dL 46 41 R, CM 34 Low R 27 Low R, CM Triglycerides <150 mg/dL 84 83 R, CM 80 R 117 R, CM LDL mg/dL (calc) 80 He remains at goal on lipitor 40 mg so will continue Assessment & Plan (08/15/2020 12:58 PM GUM MACHINE FILLER): He is on lipitor 20 mg= TC 151/HDL 41/ TG 105/ LDL 89 He has been averaging in the 80 range the past 3 years so am going to the 40 mg dosing to get it down below 70 as he has no sx on the 20 Assessment & Plan (08/17/2019 12:02 PM GUM MACHINE FILLER): TC 137/LDL 79 on lipitor 20 mg and at goal Assessment & Plan (02/08/2019 1:08 PM CDT): His LDL is at goal Presence of IVC filter 09/28/2018 Bruising 03/19/2017 Chronic anemia 03/19/2017 Edema 03/19/2017 Pulmonary embolism without acute cor pulmonale 0 02/10/2017 Assessment & Plan (07/28/2023 11:41 AM GUM MACHINE FILLER): - Hold warfarin - s/p IVC filter Assessment & Plan (07/21/2017 12:18 PM GUM MACHINE FILLER): Unfortunately, he needs anticoagulation. A recent venous [...] 01/20/2017 Assessment & Plan (08/17/2019 12:05 PM GUM MACHINE FILLER): 1. 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 Global left ventricular [...] 01/20/2017 Assessment & Plan (07/27/2023 2:41 PM GUM MACHINE FILLER): See Pulmonary Embolism Assessment & Plan (01/20/2017 [...] elective Lexiscan nuclear stress test over at [facility] which is convenient. If this is negative and since pulmonary is no from there mechanism. It may be worthwhile to consider some type of an alternate exercise program such as swimming, i.e. water aerobic Pure hypercholesterolemia 01/20/2017 Assessment & Plan (07/27/2023 2:42 PM GUM MACHINE FILLER): - Continue home Lipitor Assessment & Plan (02/08/2019 1:06 PM CDT): SCRIBED Cholesterol, Total l - h 151 SCRIBED HDL l - h 45 SCRIBED LDL l - h 87 SCRIBED Triglycerides l - h 95 His LDL is at goal on lipitor 20 mg a day Assessment & Plan (08/11/2018 10:31 AM GUM MACHINE FILLER): Lipid profile today=TC 170/ HDL 55/ TG [...] lipitor Assessment & Plan (07/21/2017 12:22 PM GUM MACHINE FILLER): Todays lipid profile= TC 151/ HDL 45/ [...] 01/02 Assessment & Plan (07/27/2023 2:47 PM GUM MACHINE FILLER): - BMI 44.94 kg/m2 on admission Assessment & Plan (02/08/2019 2:11 PM CDT): He continues to work with diet and exercise Assessment & Plan (08/11/2018 10:35 AM GUM MACHINE FILLER): He continues to work with calorie restriction and ambulation Assessment & Plan (01/27/2018 11:21 AM CDT): He works with diet, exercise limited as he walks with a cane Assessment & Plan (07/21/2017 12:31 PM GUM MACHINE FILLER): He continues to work with diet Assessment & Plan (02/10/2017 1:56 PM CDT): Need for wt loss discussed. Recs: 1) continue diet and lifestyle modifications. Metastatic neoplasm 07/18/2016 Benign paroxysmal positional vertigo 09/20/2015 Pulmonary embolism 08/09/2015 Paroxysmal atrial fibrillation 08/09/2015 Assessment & Plan (07/27/2023 2:57 PM GUM MACHINE FILLER): - Continue home flecainide - Continue home metoprolol - suppressed on warfarin, flecainide; follows with cardiology outpatient - last TTE in 2019 w/ LVEF 55% and no obvious structural issues Assessment & Plan (08/06/2021 12:26 PM GUM MACHINE FILLER): He has had no recurrences since last year; echo normal, So I made no changes He is protected with Warfarin, on tambocor and metoprolol which I would continue Assessment & Plan (08/15/2020 12:39 PM GUM MACHINE FILLER): He has had recurrent episodes of atrial [...] 07/12/2015 Assessment & Plan (07/28/2023 11:47 AM GUM MACHINE FILLER): - 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 - has been on chronic suppressive doxycycline since then per ID - doxycycline reordered Arthritis 12/17/2009 Hypertension 12/17/2009 Assessment & Plan (08/06/2021 12:26 PM GUM MACHINE FILLER): His BP remains at goal on the BB, so will continue Assessment & Plan (08/15/2020 12:34 PM GUM MACHINE FILLER): His blood pressure is at goal Assessment & Plan (08/17/2019 12:00 PM GUM MACHINE FILLER): His BP remains at goal Assessment & Plan (02/08/2019 1:05 PM CDT): His BP remains at goal Assessment & Plan (08/11/2018 10:26 AM GUM MACHINE FILLER): His BP is at goal Current Treatment and Therapy Plans No current plan information found. Past Treatment and Therapy Plans No past plan information found. Lifetime Dose Tracking * Chemical Lifetime Dose Automatic Entry Manual Entr y DLP 1,419 mGycm 1,419 mGycm 0 mGycm
--- OUTSIDE RECORDS SUMMARY | 2025-06-26 10:40 | XMS_ITS | Encounter Summary ---
Author Organization [facility] Address [address] [place] [address] Phone Care Team Providers Care Coach Operator Name Role Phone Christopher Diop MD Primary Care Provider Mayra Casper MD Unavailable [phone] Reason for Visit * Reason Comments Medication Refill Encounter Details Date Type Department Care Team (Late st Contact Info) Description 07/11/2020 Refill [facility] - Gastroenterology - [address] [place] [address] Rosa Isela Boo Luz, PAC [address] [place], [place] [address] Medication Refill Social History Tobacco Use Types [...] Job Start Date Job End Date retired-from [employer] Not on file Not on file Not on file documented as of this encounter Miscellaneous Notes * Telephone Encounter - Kelly Hodge CMA - 07/11/2020 1:17 PM PUBLIC RELATIONS Patients was notified on 03/29/2020 that refills after that were to go to primary care provider. verbalized understanding IC RELATIONS documented in this encounter Plan of Treatment Not on file documented as of this encounter Visit Diagnoses Not on filedocumented in this encounter Care Teams Coach Operator Relationship Specialty Start Date End Date Christopher Diop MD [address] [place] [address] PCP - General Family Medicine 03/11/17 Mayra Casper MD [address] [place] [address] [address] Consulting Physician Gastroenterology 07/30/17 documented as of this encounter
--- OUTSIDE RECORDS SUMMARY | 2025-06-26 10:40 | XMS_ITS | Encounter Summary ---
Author Organization [facility] Address [address] [place] [address] Care Team Providers Care Physical Geographer Name Role Phone Liset Haynes MD Primary Care Provider [phone] Delaney Wise MD Primary Care Provider Encounter Details Date Type Department Care Team (Late st Contact Info) Description 02/02/2025 Orders Only [facility] Health Information Management [address] [place] [id number] Scanning, Provider Social History Tobacco Use Types [...] on file Legal Sex Male 3:18 AM CUSTOMS INSPECTOR Gender Identity Not on file Sexual Orientation Not on file documented as of this encounter Plan of Treatment Upcoming Encounters Date Type Department Care Team (Latest Contact Info) Description 07/19/2025 1:15 PM CUSTOMS INSPECTOR Hospital Encounter [facility] [place] [address] [place] [address] Leora Wilson MD [address] [place] [address] 07/19/2025 1:15 PM CUSTOMS INSPECTOR - 07/19/2025 1:45 PM CUSTOMS INSPECTOR Surgery [facility] [place] [address] [place] [address] Leora Wilson MD [address] [place] [address] ESOPHAGOGASTRODUODENOSCOPY Scheduled Procedures Name Priority Associated Diagnoses Date/Ti me ESOPHAGOGASTRODUODENOSCOPY Esophageal dysphagia 07/19/2025 1:15 PM CUSTOMS INSPECTOR documented as of this encounter Procedures Procedure Name Priority Date/Time Associated Diagnosis Comments SCAN - RADIOLOGY/IMAGING 02/02/2025 documented in this encounter Results * SCAN - RADIOLOGY/IMAGING (02/02/2025) Anatomical Region Laterality Modality Other us Provider Scanning Final Result documented in this encounter Visit Diagnoses Not on filedocumented in this encounter Care Teams Physical Geographer Relationship Specialty Start Date End Date Liset Haynes MD PCP - General Family Medicine 08/05/22 06/22/25 Delaney Wise MD [address] [facility] [address] [address] PCP - General Family Medicine 06/23/25 documented as of this encounter
--- OUTSIDE RECORDS SUMMARY | 2025-06-26 10:40 | XMS_ITS | Encounter Summary ---
Author Organization [facility] Healthcare Address [address] [place] [address] Care Team Providers Care Mortgage Loan Specialist Name Role Phone Liset Haynse MD Primary Care Provider [phone] Delaney Wise MD Primary Care Provider Encounter Details Date Type Department Care Team (Late st Contact Info) Description 02/24/2025 Orders Only [facility] Health Information Management [address] [place] [id number] Scanning, Provider Social History Tobacco Use [...] on file Legal Sex Male 3:18 AM OPTICAL ADVISOR Gender Identity Not on file Sexual Orientation Not on file documented as of this encounter Plan of Treatment Upcoming Encounters Date Type Department Care Team (Latest Contact Info) Description 07/19/2025 1:15 PM OPTICAL ADVISOR Hospital Encounter [facility] [place] [address] [place] [address] Leora Wilson MD [address] [place] [address] 07/19/2025 1:15 PM OPTICAL ADVISOR - 07/19/2025 1:45 PM OPTICAL ADVISOR Surgery [facility] [place] [address] [place] [address] Leora Wilson MD [address] [place] [address] ESOPHAGOGASTRODUODENOSCOPY Scheduled Procedures Name Priority Associated Diagnoses Date/Ti me ESOPHAGOGASTRODUODENOSCOPY Esophageal dysphagia 07/19/2025 1:15 PM OPTICAL ADVISOR documented as of this encounter Procedures Procedure Name Priority Date/Time Associated Diagnosis Comments SCAN - RADIOLOGY/IMAGING 02/24/2025 documented in this encounter Results * SCAN - RADIOLOGY/IMAGING (02/24/2025) Anatomical Region Laterality Modality Other us Provider Scanning Final Result documented in this encounter Visit Diagnoses Not on filedocumented in this encounter Care Teams Mortgage Loan Specialist Relationship Specialty Start Date End Date Liset Haynes MD PCP - General Family Medicine 08/05/22 06/22/25 Delaney Wise MD [address] [address] PCP - General Family Medicine 06/23/25 documented as of this encounter
--- OUTSIDE RECORDS SUMMARY | 2025-06-26 10:40 | XMS_ITS | Clinical Summary ---
Author Organization [facility] Address [address] [place] [address] Care Team Providers Care Celery Packer Name Role Phone Liset Haynes MD Primary Care Provider [phone] Allergies No known active allergies Medications amiodarone [...] Encounters Date Type Department Care Team Description 05/31/2025 External Device Data [facility] ABSTRACTION Provider, Abstract 05/24/2025 External Device Data [facility] ABSTRACTION Provider, Abstract 05/23/2025 External Device Data [facility] ABSTRACTION Provider, Abstract [...] kg (343 lb) 07/12/2024 1:0 3 PM ENTRY TABLE OPERATOR Patient is unable to step on scale,patient gave me a verbal current weight from recent. Height 188 cm (6' 2) 06/08/2018 8:37 AM ENTRY TABLE OPERATOR Body Mass Index 44.04 06/08/2018 8:37 AM ENTRY TABLE OPERATOR Plan of Treatment Upcoming Encounters Date Type Department Care Team (Late st Contact Info) Description 07/13/2025 1:00 PM ENTRY TABLE OPERATOR Office Visit [facility] Oncology and Hematology - [place] [address] [facility] [address] [place] [address] Kendall Wills MD [address] [facility] [address] [place] [address] Health Maintenance Due Date Last Done Comments DIABETES ANNUAL FOOT EXAM 1960 DIABETES ANNUAL RETINAL EXAM 1960 DIABETES MICROALBUMIN ANNUAL SCREEN 1960 LDL CHOLESTEROL ANNUAL 1960 RSV VACCINE (60+ or ) (1 - 1-dose 75+ series) 2017 DIABETES HBA1C Q 6 MONTHS 09/11/2019 03/11/2019 INFLUENZA VACCINE (#1) 2025 9, 06/07/2018, 05/11/2017 COVID-19 Vaccine (2024- season) 2025, 09/13/2020 DTAP/TDAP/TD VACCINES (3 - T d or Tdap) 07/27/2033 07/27/2023, 05/10/2013, 01/24/2004 PNEUMOCOCCAL VACCINE 50+ YEARS Completed 0 08/03/2017, 07/31/2016, 05/10/2013 ZOSTER VACCINE Completed 08/22/2019, 06/09/2019 Insurance [employer] O [facility] [employer] PPO MCR Care Teams Celery Packer Relationship Specialty Start Date End Date Liset Haynes MD [address] [place] [id number] PCP - General Family Practice 01/06/23
[2025-06-26 10:43] LABS: Thyroid Stimulating Hormone Reflex 3.380 uIU/mL (0.465-4.68)
[2025-06-26 14:53] LABS: MALB Creatinine Ratio 45.4 mg/g (0-30)
[2025-06-26 14:59] LABS: Vitamin B12 481.0 pg/mL (239-931)
== END 2025-06-26 09:31 | disposition home or self-care (01) ==
LOC: CHSLAB 09:33
PROVIDERS: PCP Student in an Organized Health Care Education/Training Program; Visit Provider Student in an Organized Health Care Education/Training Program
DX: E11.42 Type 2 diabetes mellitus with diabetic polyneuropathy (principal); Z79.4 Long term (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; R06.09 Other forms of dyspnea
CPT/HCPCS: 36415; 80053; 80061; 82043; 82607; 83880; 84443; 85025